=== PATIENT | male | born 1970 | race Caucasian/White ===

== ENCOUNTER 2017-12-27 09:15 | Inpatient (IN) | payer MEDICARE, MEDICAID ==
[2017-12-27 10:26] LABS: VALPROIC ACID (DEPAKOTE) 16.8 UG/ML (50.0-100.0)
[2017-12-27] MEDS: LORazepam 2 MG TAB PO (12:08)
[2017-12-27] MEDS ORDERED: traZODone 50 MG TAB PO (14:45)
[2017-12-27] MEDS ORDERED: MAALOX 30 ML SUSP *UDC PO (14:45)
[2017-12-27] MEDS: HumaLOG INSULIN (NovoLOG) PER UNIT SC ×2 (17:30→21:00)
[2017-12-27] MEDS ORDERED: ENTER DRUG NAME HERE (PATIENT'S OWN MED) SC (17:45)
[2017-12-27] MEDS ORDERED: DEXTROSE 50% 50 ML SYRINGE IV (18:15)
[2017-12-27] MEDS ORDERED: GLUCOSE 4 GM CHEW TABLET PO (18:15)
[2017-12-27] MEDS ORDERED: GLUCAGON FOR INJ 1 MG VIAL (J1610) SC (18:15)
[2017-12-27] MEDS: metFORMIN (GLUCOPHAGE) 1000 MG TABLET PO (18:24)
[2017-12-27] MEDS: LISINOPRIL 10 MG TAB PO (18:41)
[2017-12-27 20:44] LABS: BEDSIDE GLUCOSE 164 MG/DL (70-105)
[2017-12-27] MEDS: OLANZapine ORAL DISINTEGRATING TAB 5MG PO (20:48)
[2017-12-27] MEDS: DIVALPROEX 500MG *ER* TAB PO (20:48)
[2017-12-27] MEDS: BENZTROPINE 2 MG TAB PO (20:49)
[2017-12-27] MEDS: GABAPENTIN 300 MG CAP PO (20:49)
[2017-12-27] MEDS: ATORVASTATIN 20 MG TAB PO (20:49)
[2017-12-27] MEDS: PALIPERIDONE 3 MG ER TAB (INVEGA) PO (20:49)
[2017-12-27] MEDS: CYCLOBENZAPRINE 10 MG TAB PO (21:54)
[2017-12-28 04:40] LABS: BEDSIDE GLUCOSE 158 MG/DL (70-105)
[2017-12-28] MEDS: LEVOTHYROXINE 100MCG TABLET (0.1MG) PO (05:52)
[2017-12-28] MEDS: CYCLOBENZAPRINE 10 MG TAB PO ×3 (05:52→22:15)
[2017-12-28] MEDS: HumaLOG INSULIN (NovoLOG) PER UNIT SC ×4 (06:13→20:50)
[2017-12-28] MEDS: BENZTROPINE 2 MG TAB PO ×2 (08:59→20:43)
[2017-12-28] MEDS: metFORMIN (GLUCOPHAGE) 1000 MG TABLET PO ×2 (08:59→17:05)
[2017-12-28] MEDS: PILL CRUSHER/CUTTER 1 EACH XX ×2 (09:00→20:54)
[2017-12-28] MEDS: GABAPENTIN 300 MG CAP PO ×2 (09:00→20:44)
[2017-12-28] MEDS ORDERED: ENTER DRUG NAME HERE (PATIENT'S OWN MED) PO (09:00)
[2017-12-28] MEDS: LISINOPRIL 10 MG TAB PO (09:07)
[2017-12-28 11:58] LABS: BEDSIDE GLUCOSE 154 MG/DL (70-105)
[2017-12-28] MEDS: CETIRIZINE (ZyrTEC) 10 MG TAB PO (13:20)
[2017-12-28] MEDS: FLUTICASONE PROP 0.05% NASAL SPRAY 16 GM (FLONASE) NARES (13:30)
[2017-12-28 17:03] LABS: BEDSIDE GLUCOSE 168 MG/DL (70-105)
[2017-12-28] MEDS: PALIPERIDONE 3 MG ER TAB (INVEGA) PO (20:44)
[2017-12-28] MEDS: ATORVASTATIN 20 MG TAB PO (20:44)
[2017-12-28] MEDS: OLANZapine ORAL DISINTEGRATING TAB 5MG PO (20:44)
[2017-12-28] MEDS: DIVALPROEX 500MG *ER* TAB PO (20:45)
[2017-12-28 20:54] LABS: BEDSIDE GLUCOSE 176 MG/DL (70-105)
[2017-12-29 04:06] LABS: BEDSIDE GLUCOSE 194 MG/DL (70-105)
[2017-12-29] MEDS: CYCLOBENZAPRINE 10 MG TAB PO ×3 (05:58→20:36)
[2017-12-29] MEDS: LEVOTHYROXINE 100MCG TABLET (0.1MG) PO (05:58)
[2017-12-29 06:11] LABS: BEDSIDE GLUCOSE 155 MG/DL (70-105)
[2017-12-29] MEDS: HumaLOG INSULIN (NovoLOG) PER UNIT SC ×4 (06:58→20:39)
[2017-12-29] MEDS: metFORMIN (GLUCOPHAGE) 1000 MG TABLET PO ×2 (08:32→17:20)
[2017-12-29] MEDS: GABAPENTIN 300 MG CAP PO ×2 (08:32→20:37)
[2017-12-29] MEDS: FLUTICASONE PROP 0.05% NASAL SPRAY 16 GM (FLONASE) NARES (08:32)
[2017-12-29] MEDS: CETIRIZINE (ZyrTEC) 10 MG TAB PO (08:32)
[2017-12-29] MEDS: BENZTROPINE 2 MG TAB PO ×2 (08:33→20:37)
[2017-12-29] MEDS: LISINOPRIL 10 MG TAB PO (08:35)
[2017-12-29] MEDS: guaiFENesin SYRUP 200 MG/10 ML UDC PO ×2 (10:46→16:27)
[2017-12-29] MEDS: CEPACOL LOZENGE PO ×4 (10:46→23:57)
[2017-12-29 12:09] LABS: BEDSIDE GLUCOSE 196 MG/DL (70-105)
[2017-12-29 12:27] LABS: BASO % 0.7 % (0.0-1.0); EOS # 0.5 10^3/uL (0.0-0.50); HEMOGLOBIN 12.9 g/dl (13.5-17.5); IMMATURE GRANULOCYTE % 2.3 % (0-3.0); LYMPH # 1.7 10^3/uL (1.5-4.5); LYMPH % 28.4 % (24.0-44.0); MEAN CORPUSCULAR HGB CONC 33.9 g/dl (32.0-36.5); MEAN CORPUSCULAR VOLUME 85.4 fl (80.0-96.0); MONO # 0.5 10^3/uL (0.0-0.8); MONO % 7.8 % (0.0-5.0); NEUTROPHILS # 3.2 10^3/uL (1.8-7.7); NEUTROPHILS % 52.8 % (36.0-66.0); PLATELET COUNT, AUTOMATED 208 10^3/uL (150-450); RED BLOOD COUNT 4.45 10^6/uL (4.30-6.10); RED CELL DISTRIBUTION WIDTH 12.9 % (11.5-14.5); WHITE BLOOD COUNT 6.1 10^3/uL (4.0-10.0)
[2017-12-29 12:46] LABS: AMMONIA 72 uMOL/L (<32)
[2017-12-29 14:29] LABS: ALBUMIN 3.2 GM/DL (3.2-5.2); ALBUMIN/GLOBULIN RATIO 0.91 (1.00-1.93); ALKALINE PHOSPHATASE 82 U/L (45-117); ALT/SGPT 50 U/L (12-78); ANION GAP 7 MEQ/L (8-16); AST/SGOT 44 U/L (7-37); BILIRUBIN,TOTAL 0.2 MG/DL (0.2-1.0); BLOOD UREA NITROGEN 8 MG/DL (7-18); CALCIUM LEVEL 8.3 MG/DL (8.5-10.1); CARBON DIOXIDE LEVEL 28 MEQ/L (21-32); CHLORIDE LEVEL 107 MEQ/L (98-107); CREATININE FOR GFR 0.82 MG/DL (0.70-1.30); GLOMERULAR FILTRATION RATE > 60.0 (>60); GLUCOSE, FASTING 195 MG/DL (70-100); SODIUM LEVEL 142 MEQ/L (136-145); TOTAL PROTEIN 6.7 GM/DL (6.4-8.2)
[2017-12-29 17:25] LABS: BEDSIDE GLUCOSE 159 MG/DL (70-105)
[2017-12-29] MEDS: ATORVASTATIN 20 MG TAB PO (20:36)
[2017-12-29] MEDS: PALIPERIDONE 3 MG ER TAB (INVEGA) PO (20:37)
[2017-12-29] MEDS: DIVALPROEX 500MG *ER* TAB PO (20:37)
[2017-12-29] MEDS: OLANZapine ORAL DISINTEGRATING TAB 5MG PO (20:37)
[2017-12-29 22:29] LABS: BEDSIDE GLUCOSE 163 MG/DL (70-105)
[2017-12-29] MEDS: traMADol 50 MG TAB PO (23:55)
[2017-12-30] MEDS: CEPACOL LOZENGE PO ×5 (02:45→23:35)
[2017-12-30] MEDS: CYCLOBENZAPRINE 10 MG TAB PO ×3 (06:02→20:35)
[2017-12-30] MEDS: LEVOTHYROXINE 100MCG TABLET (0.1MG) PO (06:02)
[2017-12-30] MEDS: HumaLOG INSULIN (NovoLOG) PER UNIT SC ×4 (06:31→20:37)
[2017-12-30 06:48] LABS: BEDSIDE GLUCOSE 209 MG/DL (70-105)
[2017-12-30] MEDS: FLUTICASONE PROP 0.05% NASAL SPRAY 16 GM (FLONASE) NARES (08:34)
[2017-12-30] MEDS: LISINOPRIL 10 MG TAB PO (08:35)
[2017-12-30] MEDS: GABAPENTIN 300 MG CAP PO ×2 (08:35→20:35)
[2017-12-30] MEDS: metFORMIN (GLUCOPHAGE) 1000 MG TABLET PO ×2 (08:35→17:51)
[2017-12-30] MEDS: CETIRIZINE (ZyrTEC) 10 MG TAB PO (08:35)
[2017-12-30] MEDS: BENZTROPINE 2 MG TAB PO ×2 (08:35→20:35)
[2017-12-30 11:22] LABS: AMMONIA 92 uMOL/L (<32)
[2017-12-30 12:09] LABS: BEDSIDE GLUCOSE 187 MG/DL (70-105)
[2017-12-30] MEDS: LACTULOSE 20 GM/30 ML SYRUP UD PO ×2 (13:37→20:36)
[2017-12-30] MEDS: OXcarbazepine 300 MG TAB PO ×2 (13:37→20:35)
[2017-12-30] MEDS: guaiFENesin SYRUP 200 MG/10 ML UDC PO ×2 (14:49→20:36)
[2017-12-30] MEDS: traMADol 50 MG TAB PO ×2 (16:49→17:59)
[2017-12-30 17:12] LABS: BEDSIDE GLUCOSE 207 MG/DL (70-105)
[2017-12-30 20:33] LABS: BEDSIDE GLUCOSE 194 MG/DL (70-105)
[2017-12-30] MEDS: ATORVASTATIN 20 MG TAB PO (20:35)
[2017-12-30] MEDS: PALIPERIDONE 3 MG ER TAB (INVEGA) PO (20:35)
[2017-12-30] MEDS: OLANZapine ORAL DISINTEGRATING TAB 5MG PO (20:35)
[2017-12-31] MEDS: CYCLOBENZAPRINE 10 MG TAB PO ×3 (05:59→23:35)
[2017-12-31] MEDS: LEVOTHYROXINE 100MCG TABLET (0.1MG) PO (05:59)
[2017-12-31 06:04] LABS: BEDSIDE GLUCOSE 181 MG/DL (70-105)
[2017-12-31] MEDS: HumaLOG INSULIN (NovoLOG) PER UNIT SC ×4 (06:37→20:52)
[2017-12-31] MEDS: CEPACOL LOZENGE PO ×2 (07:22→15:11)
[2017-12-31] MEDS: guaiFENesin SYRUP 200 MG/10 ML UDC PO (07:23)
[2017-12-31] MEDS: FLUTICASONE PROP 0.05% NASAL SPRAY 16 GM (FLONASE) NARES (09:07)
[2017-12-31] MEDS: LACTULOSE 20 GM/30 ML SYRUP UD PO ×2 (09:07→20:44)
[2017-12-31] MEDS: LISINOPRIL 10 MG TAB PO (09:08)
[2017-12-31] MEDS: GABAPENTIN 300 MG CAP PO ×2 (09:08→20:44)
[2017-12-31] MEDS: metFORMIN (GLUCOPHAGE) 1000 MG TABLET PO ×2 (09:08→17:41)
[2017-12-31] MEDS: CETIRIZINE (ZyrTEC) 10 MG TAB PO (09:08)
[2017-12-31] MEDS: BENZTROPINE 2 MG TAB PO ×2 (09:08→20:45)
[2017-12-31] MEDS: OXcarbazepine 300 MG TAB PO ×2 (09:08→20:44)
[2017-12-31] MEDS: traMADol 50 MG TAB PO ×2 (10:04→20:47)
[2017-12-31 12:05] LABS: BEDSIDE GLUCOSE 191 MG/DL (70-105)
[2017-12-31] MEDS: IBUPROFEN 400 MG TAB PO (12:18)
[2017-12-31 17:06] LABS: BEDSIDE GLUCOSE 218 MG/DL (70-105)
[2017-12-31 20:41] LABS: BEDSIDE GLUCOSE 176 MG/DL (70-105)
[2017-12-31] MEDS: ATORVASTATIN 20 MG TAB PO (20:44)
[2017-12-31] MEDS: OLANZapine ORAL DISINTEGRATING TAB 5MG PO (20:44)
[2017-12-31] MEDS: PALIPERIDONE 3 MG ER TAB (INVEGA) PO (20:45)
[2017-12-31] MEDS: PILL CRUSHER/CUTTER 1 EACH XX (20:48)
[2018-01-01] MEDS: IBUPROFEN 400 MG TAB PO ×2 (02:08→22:30)
[2018-01-01] MEDS: LEVOTHYROXINE 100MCG TABLET (0.1MG) PO (05:59)
[2018-01-01] MEDS: CYCLOBENZAPRINE 10 MG TAB PO ×3 (05:59→22:22)
[2018-01-01] MEDS: HumaLOG INSULIN (NovoLOG) PER UNIT SC ×4 (07:01→21:00)
[2018-01-01 07:51] LABS: AMMONIA 33 uMOL/L (<32)
[2018-01-01] MEDS: BENZTROPINE 2 MG TAB PO ×2 (08:14→22:22)
[2018-01-01] MEDS: LACTULOSE 20 GM/30 ML SYRUP UD PO ×2 (08:14→22:21)
[2018-01-01] MEDS: FLUTICASONE PROP 0.05% NASAL SPRAY 16 GM (FLONASE) NARES (08:14)
[2018-01-01] MEDS: OXcarbazepine 300 MG TAB PO ×2 (08:14→22:22)
[2018-01-01] MEDS: CETIRIZINE (ZyrTEC) 10 MG TAB PO (08:14)
[2018-01-01] MEDS: LISINOPRIL 10 MG TAB PO (08:14)
[2018-01-01] MEDS: metFORMIN (GLUCOPHAGE) 1000 MG TABLET PO ×2 (08:14→17:15)
[2018-01-01] MEDS: GABAPENTIN 300 MG CAP PO ×2 (08:14→22:21)
[2018-01-01] MEDS: MOM 30ML SUSPENSION UDC PO (10:16)
[2018-01-01 11:53] LABS: BEDSIDE GLUCOSE 215 MG/DL (70-105)
[2018-01-01 17:06] LABS: BEDSIDE GLUCOSE 233 MG/DL (70-105)
[2018-01-01] MEDS: CEPACOL LOZENGE PO ×2 (18:00→20:11)
[2018-01-01 19:59] LABS: BEDSIDE GLUCOSE 180 MG/DL (70-105)
[2018-01-01] MEDS: PALIPERIDONE 3 MG ER TAB (INVEGA) PO (22:21)
[2018-01-01] MEDS: ATORVASTATIN 20 MG TAB PO (22:21)
[2018-01-01] MEDS: OLANZapine ORAL DISINTEGRATING TAB 5MG PO (22:23)
[2018-01-02] MEDS: guaiFENesin SYRUP 200 MG/10 ML UDC PO ×4 (00:22→23:19)
[2018-01-02] MEDS: CEPACOL LOZENGE PO ×2 (04:03→21:26)
[2018-01-02 05:31] LABS: BEDSIDE GLUCOSE 149 MG/DL (70-105)
[2018-01-02] MEDS: CYCLOBENZAPRINE 10 MG TAB PO ×3 (05:50→21:27)
[2018-01-02] MEDS: LEVOTHYROXINE 100MCG TABLET (0.1MG) PO (05:50)
[2018-01-02] MEDS: HumaLOG INSULIN (NovoLOG) PER UNIT SC ×4 (06:43→21:00)
[2018-01-02] MEDS: GABAPENTIN 300 MG CAP PO ×2 (08:02→21:27)
[2018-01-02] MEDS: FLUTICASONE PROP 0.05% NASAL SPRAY 16 GM (FLONASE) NARES (08:02)
[2018-01-02] MEDS: LACTULOSE 20 GM/30 ML SYRUP UD PO ×2 (08:02→21:25)
[2018-01-02] MEDS: LISINOPRIL 10 MG TAB PO (08:02)
[2018-01-02] MEDS: CETIRIZINE (ZyrTEC) 10 MG TAB PO (08:02)
[2018-01-02] MEDS: BENZTROPINE 2 MG TAB PO ×2 (08:02→21:25)
[2018-01-02] MEDS: OXcarbazepine 300 MG TAB PO ×2 (08:02→21:27)
[2018-01-02] MEDS: metFORMIN (GLUCOPHAGE) 1000 MG TABLET PO ×2 (08:02→17:12)
[2018-01-02 08:05] LABS: AMMONIA 30 uMOL/L (<32)
[2018-01-02] MEDS: IBUPROFEN 400 MG TAB PO ×2 (09:27→21:29)
[2018-01-02 12:09] LABS: BEDSIDE GLUCOSE 167 MG/DL (70-105)
[2018-01-02 16:59] LABS: BEDSIDE GLUCOSE 174 MG/DL (70-105)
[2018-01-02 21:25] LABS: BEDSIDE GLUCOSE 137 MG/DL (70-105)
[2018-01-02] MEDS: PALIPERIDONE 3 MG ER TAB (INVEGA) PO (21:26)
[2018-01-02] MEDS: ATORVASTATIN 20 MG TAB PO (21:27)
[2018-01-02] MEDS: OLANZapine ORAL DISINTEGRATING TAB 5MG PO (21:27)
[2018-01-03] MEDS: CEPACOL LOZENGE PO ×2 (02:33→14:41)
[2018-01-03] MEDS: guaiFENesin SYRUP 200 MG/10 ML UDC PO ×2 (03:46→15:05)
[2018-01-03] MEDS: IBUPROFEN 400 MG TAB PO ×2 (03:47→14:41)
[2018-01-03] MEDS: LEVOTHYROXINE 100MCG TABLET (0.1MG) PO (06:00)
[2018-01-03] MEDS: CYCLOBENZAPRINE 10 MG TAB PO ×2 (06:01→14:40)
[2018-01-03 06:22] LABS: BEDSIDE GLUCOSE 150 MG/DL (70-105)
[2018-01-03] MEDS: HumaLOG INSULIN (NovoLOG) PER UNIT SC ×2 (06:33→12:00)
[2018-01-03] MEDS: metFORMIN (GLUCOPHAGE) 1000 MG TABLET PO (08:29)
[2018-01-03] MEDS: CETIRIZINE (ZyrTEC) 10 MG TAB PO (08:29)
[2018-01-03] MEDS: LACTULOSE 20 GM/30 ML SYRUP UD PO (08:29)
[2018-01-03] MEDS: FLUTICASONE PROP 0.05% NASAL SPRAY 16 GM (FLONASE) NARES (08:29)
[2018-01-03] MEDS: OXcarbazepine 300 MG TAB PO (08:30)
[2018-01-03] MEDS: GABAPENTIN 300 MG CAP PO (08:30)
[2018-01-03] MEDS: LISINOPRIL 10 MG TAB PO (08:33)
[2018-01-03] MEDS: BENZTROPINE 2 MG TAB PO (08:33)
[2018-01-03 09:18] LABS: AMMONIA 34 uMOL/L (<32)
[2018-01-03 14:43] LABS: BEDSIDE GLUCOSE 189 MG/DL (70-105)
== END 2018-01-03 15:54 | disposition home or self-care (01) | DRG 885 ==
LOC: M ED 09:15 → M ED INP 14:35 → M PSY 15:25
PROVIDERS: Psychiatry & Neurology Psychiatry
DX: F31.0 Bipolar disorder, current episode hypomanic (principal); Z79.899 Other long term (current) drug therapy; Z88.0 Allergy status to penicillin; I10 Essential (primary) hypertension; E03.9 Hypothyroidism, unspecified; E11.51 Type 2 diabetes mellitus with diabetic peripheral angiopathy without gangrene; E66.9 Obesity, unspecified; E78.5 Hyperlipidemia, unspecified; G47.00 Insomnia, unspecified; F41.9 Anxiety disorder, unspecified; Z68.34 Body mass index [BMI] 34.0-34.9, adult

== ENCOUNTER 2018-01-31 13:26 | Inpatient (IN) | payer MEDICARE, MEDICAID ==
[2018-01-31 14:16] LABS: HEMATOCRIT 48.8 % (42.0-52.0); HEMOGLOBIN 16.6 g/dl (13.5-17.5); MEAN CORPUSCULAR HEMOGLOBIN 28.7 pg (27.0-33.0); MEAN CORPUSCULAR VOLUME 84.3 fl (80.0-96.0); PLATELET COUNT, AUTOMATED 282 10^3/uL (150-450); RED BLOOD COUNT 5.79 10^6/uL (4.30-6.10); RED CELL DISTRIBUTION WIDTH 13.3 % (11.5-14.5); WHITE BLOOD COUNT 8.4 10^3/uL (4.0-10.0)
[2018-01-31 14:38] LABS: AMPHETAMINES LEVEL URINE NEGATIVE (NEGATIVE); BARBITURATES URINE NEGATIVE (NEGATIVE); BENZODIAZEPINES URINE NEGATIVE (NEGATIVE); CANNABINOIDS URINE NEGATIVE (NEGATIVE); COCAINE METABOLITE URINE NEGATIVE (NEGATIVE); METHADONE URINE NEGATIVE (NEGATIVE); OPIATES URINE NEGATIVE (NEGATIVE); PHENCYCLIDINE URINE NEGATIVE (NEGATIVE)
[2018-01-31 15:00] LABS: ALBUMIN 3.7 GM/DL (3.2-5.2); ALKALINE PHOSPHATASE 131 U/L (45-117); ALT/SGPT 82 U/L (12-78); ANION GAP 10 MEQ/L (8-16); AST/SGOT 80 U/L (7-37); BILIRUBIN,DIRECT 0.2 MG/DL (0.0-0.2); BILIRUBIN,TOTAL 0.5 MG/DL (0.2-1.0); BLOOD UREA NITROGEN 10 MG/DL (7-18); CALCIUM LEVEL 8.2 MG/DL (8.5-10.1); CARBON DIOXIDE LEVEL 26 MEQ/L (21-32); CHLORIDE LEVEL 105 MEQ/L (98-107); CREATININE FOR GFR 0.72 MG/DL (0.70-1.30); GLOMERULAR FILTRATION RATE > 60.0 (>60); GLUCOSE, FASTING 143 MG/DL (70-100); POTASSIUM SERUM 4.1 MEQ/L (3.5-5.1); SALICYLATE LEVEL < 1.7 MG/DL (5.0-30.0); SODIUM LEVEL 141 MEQ/L (136-145); TOTAL PROTEIN 7.8 GM/DL (6.4-8.2)
[2018-01-31 15:01] LABS: ACETAMINOPHEN LEVEL < 2.0 UG/ML (10.0-30.0); ETHYL ALCOHOL (ETHANOL) < 0.003 % (0.000-0.010)
[2018-01-31] MEDS ORDERED: MAALOX 30 ML SUSP *UDC PO (16:30)
[2018-01-31] MEDS: metFORMIN (GLUCOPHAGE) 1000 MG TABLET PO (18:00)
[2018-01-31] MEDS ORDERED: metFORMIN (GLUCOPHAGE) 1000 MG TABLET PO (21:00)
[2018-01-31] MEDS ORDERED: OXcarbazepine 300 MG TAB PO (21:00)
[2018-01-31] MEDS ORDERED: GABAPENTIN 300 MG CAP PO (21:00)
[2018-01-31] MEDS ORDERED: ATORVASTATIN 20 MG TAB PO (21:00)
[2018-01-31] MEDS ORDERED: BENZTROPINE 2 MG TAB PO (21:00)
[2018-01-31] MEDS ORDERED: OLANZapine ORAL DISINTEGRATING TAB 5MG PO (21:00)
[2018-01-31] MEDS: GABAPENTIN 300 MG CAP PO (21:02)
[2018-01-31] MEDS: ATORVASTATIN 20 MG TAB PO (21:03)
[2018-01-31] MEDS: BENZTROPINE 1 MG TAB PO (21:03)
[2018-01-31] MEDS: OXcarbazepine 300 MG TAB PO (21:03)
[2018-01-31] MEDS: OLANZapine ORAL DISINTEGRATING TAB 5MG PO (21:04)
[2018-01-31] MEDS: traZODone 50 MG TAB PO (21:55)
[2018-02-01] MEDS ORDERED: LEVOTHYROXINE 100MCG TABLET (0.1MG) PO (06:00)
[2018-02-01] MEDS: LEVOTHYROXINE 100MCG TABLET (0.1MG) PO (06:04)
[2018-02-01 06:38] LABS: BEDSIDE GLUCOSE 135 MG/DL (70-105)
[2018-02-01] MEDS: BENZTROPINE 1 MG TAB PO ×2 (08:50→20:59)
[2018-02-01] MEDS: metFORMIN (GLUCOPHAGE) 1000 MG TABLET PO ×2 (08:50→17:10)
[2018-02-01] MEDS: OXcarbazepine 300 MG TAB PO ×2 (08:50→20:59)
[2018-02-01] MEDS: GABAPENTIN 300 MG CAP PO ×2 (08:50→20:59)
[2018-02-01] MEDS ORDERED: GLUCAGON FOR INJ 1 MG VIAL (J1610) SC (09:00)
[2018-02-01] MEDS ORDERED: GLUCOSE 4 GM CHEW TABLET PO (09:00)
[2018-02-01] MEDS ORDERED: DEXTROSE 50% 50 ML SYRINGE IV (09:00)
[2018-02-01 11:26] LABS: AMMONIA 37 uMOL/L (<32)
[2018-02-01 11:29] LABS: ALBUMIN 3.3 GM/DL (3.2-5.2); ALBUMIN/GLOBULIN RATIO 0.89 (1.00-1.93); ALKALINE PHOSPHATASE 118 U/L (45-117); ALT/SGPT 84 U/L (12-78); ANION GAP 6 MEQ/L (8-16); AST/SGOT 83 U/L (7-37); BILIRUBIN,TOTAL 0.5 MG/DL (0.2-1.0); BLOOD UREA NITROGEN 13 MG/DL (7-18); CARBON DIOXIDE LEVEL 31 MEQ/L (21-32); CHLORIDE LEVEL 103 MEQ/L (98-107); CREATININE FOR GFR 0.85 MG/DL (0.70-1.30); GLOMERULAR FILTRATION RATE > 60.0 (>60); GLUCOSE, FASTING 176 MG/DL (70-100); SODIUM LEVEL 140 MEQ/L (136-145)
[2018-02-01] MEDS: HumaLOG INSULIN (NovoLOG) PER UNIT SC ×3 (11:51→21:00)
[2018-02-01 11:52] LABS: BEDSIDE GLUCOSE 150 MG/DL (70-105)
[2018-02-01] MEDS: PARoxetine 10MG TABLET PO (14:08)
[2018-02-01 17:17] LABS: BEDSIDE GLUCOSE 162 MG/DL (70-105)
[2018-02-01] MEDS: LACTULOSE 20 GM/30 ML SYRUP UD PO (20:58)
[2018-02-01] MEDS: traZODone 50 MG TAB PO (20:59)
[2018-02-01] MEDS: ATORVASTATIN 20 MG TAB PO (20:59)
[2018-02-01] MEDS: OLANZapine ORAL DISINTEGRATING TAB 5MG PO (20:59)
[2018-02-01 21:00] LABS: BEDSIDE GLUCOSE 120 MG/DL (70-105)
[2018-02-02] MEDS: LEVOTHYROXINE 100MCG TABLET (0.1MG) PO (06:15)
[2018-02-02] MEDS: HumaLOG INSULIN (NovoLOG) PER UNIT SC ×4 (06:40→20:32)
[2018-02-02 06:43] LABS: BEDSIDE GLUCOSE 134 MG/DL (70-105)
[2018-02-02 07:17] LABS: ESTIMATED AVERAGE GLUCOSE 160 MG/DL (60-110); HEMOGLOBIN A1c 7.2 %
[2018-02-02 07:28] LABS: ALBUMIN 3.2 GM/DL (3.2-5.2); ALBUMIN/GLOBULIN RATIO 0.82 (1.00-1.93); ALKALINE PHOSPHATASE 108 U/L (45-117); ALT/SGPT 76 U/L (12-78); ANION GAP 9 MEQ/L (8-16); AST/SGOT 61 U/L (7-37); BILIRUBIN,TOTAL 0.5 MG/DL (0.2-1.0); BLOOD UREA NITROGEN 15 MG/DL (7-18); CARBON DIOXIDE LEVEL 26 MEQ/L (21-32); CHLORIDE LEVEL 106 MEQ/L (98-107); CREATININE FOR GFR 0.75 MG/DL (0.70-1.30); GLOMERULAR FILTRATION RATE > 60.0 (>60); GLUCOSE, FASTING 126 MG/DL (70-100); SODIUM LEVEL 141 MEQ/L (136-145); TOTAL PROTEIN 7.1 GM/DL (6.4-8.2)
[2018-02-02] MEDS: metFORMIN (GLUCOPHAGE) 1000 MG TABLET PO ×2 (08:55→17:01)
[2018-02-02] MEDS: GABAPENTIN 300 MG CAP PO ×2 (08:55→21:44)
[2018-02-02] MEDS: PARoxetine 10MG TABLET PO (08:55)
[2018-02-02] MEDS: BENZTROPINE 1 MG TAB PO ×2 (08:55→21:43)
[2018-02-02] MEDS: OXcarbazepine 300 MG TAB PO ×2 (08:55→21:43)
[2018-02-02 10:03] LABS: HEPATITIS B SURFACE ANTIGEN NEGATIVE (NEGATIVE)
[2018-02-02 10:29] LABS: HEPATITIS C VIRUS ABY INDEX < 0.0 INDEX (<0.8)
[2018-02-02 10:30] LABS: HEPATITIS B CORE ANTIBODY IGM NEGATIVE (NEGATIVE)
[2018-02-02 10:32] LABS: HEPATITIS A ANTIBODY IGM NEGATIVE (NEGATIVE)
[2018-02-02 11:24] LABS: BEDSIDE GLUCOSE 174 MG/DL (70-105)
[2018-02-02 16:57] LABS: BEDSIDE GLUCOSE 127 MG/DL (70-105)
[2018-02-02 20:33] LABS: BEDSIDE GLUCOSE 138 MG/DL (70-105)
[2018-02-02] MEDS: OLANZapine ORAL DISINTEGRATING TAB 5MG PO (21:43)
[2018-02-02] MEDS: ATORVASTATIN 20 MG TAB PO (21:43)
[2018-02-02] MEDS: LACTULOSE 20 GM/30 ML SYRUP UD PO (21:43)
[2018-02-02] MEDS: traZODone 50 MG TAB PO (21:43)
[2018-02-03] MEDS: LEVOTHYROXINE 100MCG TABLET (0.1MG) PO (06:18)
[2018-02-03 06:35] LABS: BEDSIDE GLUCOSE 115 MG/DL (70-105)
[2018-02-03] MEDS: HumaLOG INSULIN (NovoLOG) PER UNIT SC ×4 (07:02→21:00)
[2018-02-03] MEDS: OXcarbazepine 300 MG TAB PO ×2 (08:49→21:22)
[2018-02-03] MEDS: GABAPENTIN 300 MG CAP PO ×2 (08:49→21:23)
[2018-02-03] MEDS: PARoxetine 10MG TABLET PO (08:49)
[2018-02-03] MEDS: metFORMIN (GLUCOPHAGE) 1000 MG TABLET PO ×2 (08:49→17:13)
[2018-02-03] MEDS: BENZTROPINE 1 MG TAB PO ×2 (08:49→21:23)
[2018-02-03 11:42] LABS: BEDSIDE GLUCOSE 210 MG/DL (70-105)
[2018-02-03 17:09] LABS: BEDSIDE GLUCOSE 139 MG/DL (70-105)
[2018-02-03 21:22] LABS: BEDSIDE GLUCOSE 118 MG/DL (70-105)
[2018-02-03] MEDS: ATORVASTATIN 20 MG TAB PO (21:22)
[2018-02-03] MEDS: OLANZapine ORAL DISINTEGRATING TAB 5MG PO (21:23)
[2018-02-03] MEDS: LACTULOSE 20 GM/30 ML SYRUP UD PO (21:23)
[2018-02-03] MEDS: traZODone 50 MG TAB PO (21:49)
[2018-02-04] MEDS: LEVOTHYROXINE 100MCG TABLET (0.1MG) PO (05:58)
[2018-02-04 06:17] LABS: BEDSIDE GLUCOSE 122 MG/DL (70-105)
[2018-02-04] MEDS: HumaLOG INSULIN (NovoLOG) PER UNIT SC ×4 (06:43→21:00)
[2018-02-04] MEDS: GABAPENTIN 300 MG CAP PO ×2 (08:05→21:05)
[2018-02-04] MEDS: BENZTROPINE 1 MG TAB PO ×2 (08:06→21:05)
[2018-02-04] MEDS: OXcarbazepine 300 MG TAB PO ×2 (08:06→21:05)
[2018-02-04] MEDS: PARoxetine 10MG TABLET PO ×2 (08:06→10:13)
[2018-02-04] MEDS: metFORMIN (GLUCOPHAGE) 1000 MG TABLET PO ×2 (08:06→17:03)
[2018-02-04] MEDS: PARoxetine 20 MG TAB PO (09:00)
[2018-02-04 11:54] LABS: BEDSIDE GLUCOSE 171 MG/DL (70-105)
[2018-02-04 14:21] LABS: OXCARBAZEPINE 13 ug/mL (10-35)
[2018-02-04 17:13] LABS: BEDSIDE GLUCOSE 159 MG/DL (70-105)
[2018-02-04 21:04] LABS: BEDSIDE GLUCOSE 107 MG/DL (70-105)
[2018-02-04] MEDS: LACTULOSE 20 GM/30 ML SYRUP UD PO (21:04)
[2018-02-04] MEDS: ATORVASTATIN 20 MG TAB PO (21:05)
[2018-02-04] MEDS: OLANZapine ORAL DISINTEGRATING TAB 5MG PO (21:05)
[2018-02-04] MEDS: traZODone 50 MG TAB PO (21:05)
[2018-02-05] MEDS: LEVOTHYROXINE 100MCG TABLET (0.1MG) PO (06:14)
[2018-02-05 06:41] LABS: BEDSIDE GLUCOSE 132 MG/DL (70-105)
[2018-02-05] MEDS: HumaLOG INSULIN (NovoLOG) PER UNIT SC ×4 (06:48→21:00)
[2018-02-05] MEDS: OXcarbazepine 300 MG TAB PO ×2 (08:42→21:35)
[2018-02-05] MEDS: GABAPENTIN 300 MG CAP PO ×2 (08:42→21:34)
[2018-02-05] MEDS: metFORMIN (GLUCOPHAGE) 1000 MG TABLET PO ×2 (08:42→17:00)
[2018-02-05] MEDS: PARoxetine 20 MG TAB PO (08:42)
[2018-02-05] MEDS: BENZTROPINE 1 MG TAB PO ×2 (08:42→21:35)
[2018-02-05 11:51] LABS: BEDSIDE GLUCOSE 158 MG/DL (70-105)
[2018-02-05 16:59] LABS: BEDSIDE GLUCOSE 149 MG/DL (70-105)
[2018-02-05 21:33] LABS: BEDSIDE GLUCOSE 162 MG/DL (70-105)
[2018-02-05] MEDS: LACTULOSE 20 GM/30 ML SYRUP UD PO (21:33)
[2018-02-05] MEDS: traZODone 50 MG TAB PO (21:34)
[2018-02-05] MEDS: ATORVASTATIN 20 MG TAB PO (21:34)
[2018-02-05] MEDS: OLANZapine ORAL DISINTEGRATING TAB 5MG PO (21:35)
[2018-02-06] MEDS: LEVOTHYROXINE 100MCG TABLET (0.1MG) PO (06:27)
[2018-02-06] MEDS: HumaLOG INSULIN (NovoLOG) PER UNIT SC ×4 (06:32→21:00)
[2018-02-06 06:34] LABS: BEDSIDE GLUCOSE 124 MG/DL (70-105)
[2018-02-06] MEDS: metFORMIN (GLUCOPHAGE) 1000 MG TABLET PO ×2 (08:27→17:03)
[2018-02-06] MEDS: GABAPENTIN 300 MG CAP PO ×2 (08:27→21:17)
[2018-02-06] MEDS: PARoxetine 20 MG TAB PO (08:27)
[2018-02-06] MEDS: OXcarbazepine 300 MG TAB PO ×2 (08:27→21:17)
[2018-02-06] MEDS: BENZTROPINE 1 MG TAB PO ×2 (08:27→21:17)
[2018-02-06 12:01] LABS: BEDSIDE GLUCOSE 103 MG/DL (70-105)
[2018-02-06 17:03] LABS: BEDSIDE GLUCOSE 159 MG/DL (70-105)
[2018-02-06 21:15] LABS: BEDSIDE GLUCOSE 135 MG/DL (70-105)
[2018-02-06] MEDS: LACTULOSE 20 GM/30 ML SYRUP UD PO (21:17)
[2018-02-06] MEDS: OLANZapine ORAL DISINTEGRATING TAB 5MG PO (21:17)
[2018-02-06] MEDS: traZODone 50 MG TAB PO (21:17)
[2018-02-06] MEDS: ATORVASTATIN 20 MG TAB PO (21:17)
[2018-02-07] MEDS: LEVOTHYROXINE 100MCG TABLET (0.1MG) PO (06:10)
[2018-02-07 06:17] LABS: BEDSIDE GLUCOSE 113 MG/DL (70-105)
[2018-02-07] MEDS: HumaLOG INSULIN (NovoLOG) PER UNIT SC ×4 (06:39→21:00)
[2018-02-07] MEDS: BENZTROPINE 1 MG TAB PO ×2 (08:56→21:00)
[2018-02-07] MEDS: GABAPENTIN 300 MG CAP PO ×2 (08:56→21:00)
[2018-02-07] MEDS: PARoxetine 20 MG TAB PO (08:56)
[2018-02-07] MEDS: metFORMIN (GLUCOPHAGE) 1000 MG TABLET PO ×2 (08:57→17:05)
[2018-02-07] MEDS: OXcarbazepine 300 MG TAB PO ×2 (08:57→20:59)
[2018-02-07 12:10] LABS: BEDSIDE GLUCOSE 188 MG/DL (70-105)
[2018-02-07 17:13] LABS: BEDSIDE GLUCOSE 218 MG/DL (70-105)
[2018-02-07] MEDS: ATORVASTATIN 20 MG TAB PO (20:59)
[2018-02-07] MEDS: traZODone 50 MG TAB PO (20:59)
[2018-02-07] MEDS: OLANZapine ORAL DISINTEGRATING TAB 5MG PO (21:00)
[2018-02-07] MEDS: LACTULOSE 20 GM/30 ML SYRUP UD PO (21:00)
[2018-02-07 21:51] LABS: BEDSIDE GLUCOSE 138 MG/DL (70-105)
[2018-02-08] MEDS: LEVOTHYROXINE 100MCG TABLET (0.1MG) PO (06:18)
[2018-02-08 06:35] LABS: BEDSIDE GLUCOSE 114 MG/DL (70-105)
[2018-02-08] MEDS: HumaLOG INSULIN (NovoLOG) PER UNIT SC ×4 (07:05→21:00)
[2018-02-08] MEDS: metFORMIN (GLUCOPHAGE) 1000 MG TABLET PO ×3 (08:00→17:06)
[2018-02-08] MEDS: OXcarbazepine 300 MG TAB PO ×2 (08:51→21:14)
[2018-02-08] MEDS: PARoxetine 20 MG TAB PO (08:51)
[2018-02-08] MEDS: GABAPENTIN 300 MG CAP PO ×2 (08:51→21:13)
[2018-02-08] MEDS: BENZTROPINE 1 MG TAB PO ×2 (08:51→21:14)
[2018-02-08 12:24] LABS: BEDSIDE GLUCOSE 196 MG/DL (70-105)
[2018-02-08 17:08] LABS: BEDSIDE GLUCOSE 176 MG/DL (70-105)
[2018-02-08] MEDS: LACTULOSE 20 GM/30 ML SYRUP UD PO (21:13)
[2018-02-08] MEDS: traZODone 50 MG TAB PO (21:13)
[2018-02-08] MEDS: ATORVASTATIN 20 MG TAB PO (21:14)
[2018-02-08] MEDS: OLANZapine ORAL DISINTEGRATING TAB 5MG PO (21:14)
[2018-02-08 21:19] LABS: BEDSIDE GLUCOSE 95 MG/DL (70-105)
[2018-02-09] MEDS: LEVOTHYROXINE 100MCG TABLET (0.1MG) PO (06:06)
[2018-02-09 06:42] LABS: BEDSIDE GLUCOSE 110 MG/DL (70-105)
[2018-02-09] MEDS: HumaLOG INSULIN (NovoLOG) PER UNIT SC ×4 (07:04→20:55)
[2018-02-09] MEDS ORDERED: PARoxetine 10MG TABLET PO (08:45)
[2018-02-09] MEDS: BENZTROPINE 1 MG TAB PO ×2 (09:14→20:53)
[2018-02-09] MEDS: GABAPENTIN 300 MG CAP PO ×2 (09:15→20:53)
[2018-02-09] MEDS: OXcarbazepine 300 MG TAB PO ×2 (09:15→20:53)
[2018-02-09] MEDS: PARoxetine 10MG TABLET PO (09:15)
[2018-02-09] MEDS: metFORMIN (GLUCOPHAGE) 1000 MG TABLET PO ×2 (12:01→17:16)
[2018-02-09 12:09] LABS: BEDSIDE GLUCOSE 194 MG/DL (70-105)
[2018-02-09 17:01] LABS: BEDSIDE GLUCOSE 124 MG/DL (70-105)
[2018-02-09 20:51] LABS: BEDSIDE GLUCOSE 130 MG/DL (70-105)
[2018-02-09] MEDS: LACTULOSE 20 GM/30 ML SYRUP UD PO (20:52)
[2018-02-09] MEDS: ATORVASTATIN 20 MG TAB PO (20:53)
[2018-02-09] MEDS: OLANZapine ORAL DISINTEGRATING TAB 5MG PO (20:53)
[2018-02-10] MEDS: LEVOTHYROXINE 100MCG TABLET (0.1MG) PO (06:06)
[2018-02-10 06:31] LABS: BEDSIDE GLUCOSE 109 MG/DL (70-105)
[2018-02-10] MEDS: HumaLOG INSULIN (NovoLOG) PER UNIT SC ×4 (06:35→21:00)
[2018-02-10] MEDS: BENZTROPINE 1 MG TAB PO ×2 (08:59→22:01)
[2018-02-10] MEDS: PARoxetine 10MG TABLET PO (08:59)
[2018-02-10] MEDS: GABAPENTIN 300 MG CAP PO ×2 (08:59→22:01)
[2018-02-10] MEDS: OXcarbazepine 300 MG TAB PO ×2 (08:59→22:00)
[2018-02-10] MEDS: metFORMIN (GLUCOPHAGE) 1000 MG TABLET PO ×2 (11:43→17:08)
[2018-02-10 11:44] LABS: BEDSIDE GLUCOSE 157 MG/DL (70-105)
[2018-02-10 17:10] LABS: BEDSIDE GLUCOSE 175 MG/DL (70-105)
[2018-02-10] MEDS: LACTULOSE 20 GM/30 ML SYRUP UD PO (22:00)
[2018-02-10 22:01] LABS: BEDSIDE GLUCOSE 149 MG/DL (70-105)
[2018-02-10] MEDS: OLANZapine ORAL DISINTEGRATING TAB 5MG PO (22:01)
[2018-02-10] MEDS: ATORVASTATIN 20 MG TAB PO (22:01)
[2018-02-11] MEDS: LEVOTHYROXINE 100MCG TABLET (0.1MG) PO (06:15)
[2018-02-11] MEDS: HumaLOG INSULIN (NovoLOG) PER UNIT SC ×4 (06:27→21:00)
[2018-02-11 06:37] LABS: BEDSIDE GLUCOSE 104 MG/DL (70-105)
[2018-02-11] MEDS: GABAPENTIN 300 MG CAP PO ×2 (08:46→21:35)
[2018-02-11] MEDS: PARoxetine 10MG TABLET PO (08:46)
[2018-02-11] MEDS: OXcarbazepine 300 MG TAB PO ×2 (08:46→21:34)
[2018-02-11] MEDS: BENZTROPINE 1 MG TAB PO ×2 (08:46→21:35)
[2018-02-11] MEDS: metFORMIN (GLUCOPHAGE) 1000 MG TABLET PO ×2 (12:03→17:14)
[2018-02-11 12:13] LABS: BEDSIDE GLUCOSE 133 MG/DL (70-105)
[2018-02-11 17:00] LABS: BEDSIDE GLUCOSE 170 MG/DL (70-105)
[2018-02-11 21:32] LABS: BEDSIDE GLUCOSE 109 MG/DL (70-105)
[2018-02-11] MEDS: LACTULOSE 20 GM/30 ML SYRUP UD PO (21:33)
[2018-02-11] MEDS: OLANZapine ORAL DISINTEGRATING TAB 5MG PO (21:34)
[2018-02-11] MEDS: ATORVASTATIN 20 MG TAB PO (21:35)
[2018-02-12 00:07] LABS: OXCARBAZEPINE 12 ug/mL (10-35)
[2018-02-12] MEDS: LEVOTHYROXINE 100MCG TABLET (0.1MG) PO (06:09)
[2018-02-12 06:34] LABS: BEDSIDE GLUCOSE 107 MG/DL (70-105)
[2018-02-12] MEDS: HumaLOG INSULIN (NovoLOG) PER UNIT SC ×4 (06:56→20:34)
[2018-02-12] MEDS: PARoxetine 10MG TABLET PO (09:43)
[2018-02-12] MEDS: GABAPENTIN 300 MG CAP PO ×2 (09:43→20:34)
[2018-02-12] MEDS: OXcarbazepine 300 MG TAB PO ×2 (09:43→20:34)
[2018-02-12] MEDS: BENZTROPINE 1 MG TAB PO ×2 (09:43→20:34)
[2018-02-12] MEDS: metFORMIN (GLUCOPHAGE) 1000 MG TABLET PO ×2 (11:59→17:06)
[2018-02-12 12:07] LABS: BEDSIDE GLUCOSE 129 MG/DL (70-105)
[2018-02-12 17:26] LABS: BEDSIDE GLUCOSE 147 MG/DL (70-105)
[2018-02-12] MEDS: LACTULOSE 20 GM/30 ML SYRUP UD PO (20:33)
[2018-02-12] MEDS: OLANZapine ORAL DISINTEGRATING TAB 5MG PO (20:34)
[2018-02-12] MEDS: ATORVASTATIN 20 MG TAB PO (20:34)
[2018-02-12 20:35] LABS: BEDSIDE GLUCOSE 190 MG/DL (70-105)
[2018-02-13 05:22] LABS: BEDSIDE GLUCOSE 119 MG/DL (70-105)
[2018-02-13] MEDS: LEVOTHYROXINE 100MCG TABLET (0.1MG) PO (05:40)
[2018-02-13] MEDS: HumaLOG INSULIN (NovoLOG) PER UNIT SC ×4 (06:32→21:00)
[2018-02-13] MEDS: OXcarbazepine 300 MG TAB PO ×2 (08:40→21:10)
[2018-02-13] MEDS: PARoxetine 10MG TABLET PO (08:40)
[2018-02-13] MEDS: BENZTROPINE 1 MG TAB PO ×2 (08:40→21:10)
[2018-02-13] MEDS: GABAPENTIN 300 MG CAP PO ×2 (08:40→21:10)
[2018-02-13 12:13] LABS: BEDSIDE GLUCOSE 191 MG/DL (70-105)
[2018-02-13] MEDS: metFORMIN (GLUCOPHAGE) 1000 MG TABLET PO ×2 (12:16→17:02)
[2018-02-13] MEDS: PALIPERIDONE PALMITATE 234 MG/1.5 ML INJ (INVEGA SUSTENNA)(J2426) IM (12:16)
[2018-02-13 17:03] LABS: BEDSIDE GLUCOSE 128 MG/DL (70-105)
[2018-02-13] MEDS: LACTULOSE 20 GM/30 ML SYRUP UD PO (21:10)
[2018-02-13] MEDS: ATORVASTATIN 20 MG TAB PO (21:10)
[2018-02-13] MEDS: OLANZapine ORAL DISINTEGRATING TAB 5MG PO (21:10)
[2018-02-13 21:16] LABS: BEDSIDE GLUCOSE 129 MG/DL (70-105)
[2018-02-14] MEDS: LEVOTHYROXINE 100MCG TABLET (0.1MG) PO (05:59)
[2018-02-14 06:02] LABS: BEDSIDE GLUCOSE 106 MG/DL (70-105)
[2018-02-14] MEDS: HumaLOG INSULIN (NovoLOG) PER UNIT SC ×4 (06:21→21:00)
[2018-02-14] MEDS: OXcarbazepine 300 MG TAB PO ×3 (09:40→21:59)
[2018-02-14] MEDS: PARoxetine 10MG TABLET PO (09:40)
[2018-02-14] MEDS: GABAPENTIN 300 MG CAP PO ×2 (09:40→21:59)
[2018-02-14] MEDS: BENZTROPINE 1 MG TAB PO ×2 (09:40→22:00)
[2018-02-14 11:47] LABS: BEDSIDE GLUCOSE 117 MG/DL (70-105)
[2018-02-14] MEDS: metFORMIN (GLUCOPHAGE) 1000 MG TABLET PO ×2 (11:58→17:04)
[2018-02-14] MEDS: OLANZapine 5 MG TAB PO (12:04)
[2018-02-14 16:57] LABS: BEDSIDE GLUCOSE 141 MG/DL (70-105)
[2018-02-14 21:57] LABS: BEDSIDE GLUCOSE 140 MG/DL (70-105)
[2018-02-14] MEDS: LACTULOSE 20 GM/30 ML SYRUP UD PO (21:59)
[2018-02-14] MEDS: OLANZapine ORAL DISINTEGRATING TAB 5MG PO (22:00)
[2018-02-14] MEDS: ATORVASTATIN 20 MG TAB PO (22:00)
[2018-02-14] MEDS: traZODone 50 MG TAB PO (22:40)
[2018-02-15 06:22] LABS: BEDSIDE GLUCOSE 151 MG/DL (70-105)
[2018-02-15] MEDS: LEVOTHYROXINE 100MCG TABLET (0.1MG) PO (06:23)
[2018-02-15] MEDS: HumaLOG INSULIN (NovoLOG) PER UNIT SC ×4 (06:24→20:47)
[2018-02-15] MEDS: OXcarbazepine 300 MG TAB PO ×2 (09:05→20:50)
[2018-02-15] MEDS: GABAPENTIN 300 MG CAP PO ×2 (09:05→20:49)
[2018-02-15] MEDS: PARoxetine 20 MG TAB PO (09:06)
[2018-02-15] MEDS: BENZTROPINE 1 MG TAB PO ×2 (09:06→20:50)
[2018-02-15 11:41] LABS: BEDSIDE GLUCOSE 123 MG/DL (70-105)
[2018-02-15] MEDS: metFORMIN (GLUCOPHAGE) 1000 MG TABLET PO ×2 (12:02→17:07)
[2018-02-15 17:14] LABS: BEDSIDE GLUCOSE 102 MG/DL (70-105)
[2018-02-15] MEDS: LACTULOSE 20 GM/30 ML SYRUP UD PO (20:48)
[2018-02-15 20:49] LABS: BEDSIDE GLUCOSE 135 MG/DL (70-105)
[2018-02-15] MEDS: OLANZapine ORAL DISINTEGRATING TAB 5MG PO (20:49)
[2018-02-15] MEDS: ATORVASTATIN 20 MG TAB PO (20:50)
[2018-02-15] MEDS: MOM 30ML SUSPENSION UDC PO (21:39)
[2018-02-15] MEDS: ACETAMINOPHEN TAB 650MG DOSE (2X325MG) PO (23:44)
[2018-02-15] MEDS: traZODone 50 MG TAB PO (23:44)
[2018-02-16] MEDS: LEVOTHYROXINE 100MCG TABLET (0.1MG) PO (05:23)
[2018-02-16 05:25] LABS: BEDSIDE GLUCOSE 126 MG/DL (70-105)
[2018-02-16] MEDS: HumaLOG INSULIN (NovoLOG) PER UNIT SC ×4 (06:42→20:59)
[2018-02-16] MEDS: GABAPENTIN 300 MG CAP PO ×2 (08:19→20:59)
[2018-02-16] MEDS: PARoxetine 20 MG TAB PO (08:19)
[2018-02-16] MEDS: OXcarbazepine 300 MG TAB PO ×2 (08:19→20:59)
[2018-02-16] MEDS: BENZTROPINE 1 MG TAB PO ×2 (08:19→20:59)
[2018-02-16] MEDS: OLANZapine ORAL DISINTEGRATING TAB 5MG PO ×2 (09:24→20:59)
[2018-02-16] MEDS: ACETAMINOPHEN TAB 650MG DOSE (2X325MG) PO ×2 (11:14→21:04)
[2018-02-16 11:52] LABS: BEDSIDE GLUCOSE 204 MG/DL (70-105)
[2018-02-16] MEDS: metFORMIN (GLUCOPHAGE) 1000 MG TABLET PO ×2 (11:53→18:13)
[2018-02-16] MEDS: LORazepam 2 MG TAB PO ×2 (14:36→23:08)
[2018-02-16 16:42] LABS: BEDSIDE GLUCOSE 93 MG/DL (70-105)
[2018-02-16] MEDS: LACTULOSE 20 GM/30 ML SYRUP UD PO (20:58)
[2018-02-16 20:59] LABS: BEDSIDE GLUCOSE 115 MG/DL (70-105)
[2018-02-16] MEDS: ATORVASTATIN 20 MG TAB PO (20:59)
[2018-02-16] MEDS: traZODone 50 MG TAB PO (23:08)
[2018-02-17] MEDS: LEVOTHYROXINE 100MCG TABLET (0.1MG) PO (06:23)
[2018-02-17] MEDS: HumaLOG INSULIN (NovoLOG) PER UNIT SC ×4 (06:35→21:00)
[2018-02-17 06:37] LABS: BEDSIDE GLUCOSE 128 MG/DL (70-105)
[2018-02-17] MEDS: BENZTROPINE 1 MG TAB PO ×2 (08:12→21:00)
[2018-02-17] MEDS: OLANZapine ORAL DISINTEGRATING TAB 5MG PO ×2 (08:12→21:00)
[2018-02-17] MEDS: OXcarbazepine 300 MG TAB PO ×2 (08:12→21:00)
[2018-02-17] MEDS: GABAPENTIN 300 MG CAP PO ×2 (08:12→21:00)
[2018-02-17] MEDS ORDERED: PALIPERIDONE PALMITATE 234 MG/1.5 ML INJ (INVEGA SUSTENNA)(J2426) IM ×2 (09:00)
[2018-02-17 12:00] LABS: BEDSIDE GLUCOSE 151 MG/DL (70-105)
[2018-02-17] MEDS: metFORMIN (GLUCOPHAGE) 1000 MG TABLET PO ×2 (12:23→17:10)
[2018-02-17] MEDS: INFLUENZA QUADRIVALENT PF VACCINE 0.5ML SYRINGE (90686) IM (16:17)
[2018-02-17 17:16] LABS: BEDSIDE GLUCOSE 213 MG/DL (70-105)
[2018-02-17] MEDS: LACTULOSE 20 GM/30 ML SYRUP UD PO (21:00)
[2018-02-17] MEDS: ATORVASTATIN 20 MG TAB PO (21:00)
[2018-02-17 21:37] LABS: BEDSIDE GLUCOSE 146 MG/DL (70-105)
[2018-02-18] MEDS: guaiFENesin DM *SUGAR FREE* 5ML**DIABETIC TUSSIN DM PO (04:59)
[2018-02-18] MEDS: ACETAMINOPHEN TAB 650MG DOSE (2X325MG) PO ×2 (05:02→15:38)
[2018-02-18 05:54] LABS: BEDSIDE GLUCOSE 109 MG/DL (70-105)
[2018-02-18] MEDS: LEVOTHYROXINE 100MCG TABLET (0.1MG) PO (05:55)
[2018-02-18] MEDS: HumaLOG INSULIN (NovoLOG) PER UNIT SC ×4 (06:49→21:00)
[2018-02-18] MEDS: GABAPENTIN 300 MG CAP PO ×2 (09:34→21:00)
[2018-02-18] MEDS: BENZTROPINE 1 MG TAB PO ×2 (09:34→21:00)
[2018-02-18] MEDS: OLANZapine ORAL DISINTEGRATING TAB 5MG PO ×2 (09:34→21:00)
[2018-02-18] MEDS: OXcarbazepine 300 MG TAB PO (09:34)
[2018-02-18 11:39] LABS: BEDSIDE GLUCOSE 156 MG/DL (70-105)
[2018-02-18] MEDS: metFORMIN (GLUCOPHAGE) 1000 MG TABLET PO ×2 (12:02→17:40)
[2018-02-18] MEDS: LORazepam 2 MG TAB PO (15:38)
[2018-02-18 17:03] LABS: BEDSIDE GLUCOSE 137 MG/DL (70-105)
[2018-02-19] MEDS: ATORVASTATIN 20 MG TAB PO ×2 (01:37→21:06)
[2018-02-19] MEDS: OXcarbazepine 300 MG TAB PO ×3 (01:37→21:06)
[2018-02-19] MEDS: LACTULOSE 20 GM/30 ML SYRUP UD PO ×2 (01:37→21:05)
[2018-02-19] MEDS: LEVOTHYROXINE 100MCG TABLET (0.1MG) PO (06:13)
[2018-02-19 06:27] LABS: BEDSIDE GLUCOSE 113 MG/DL (70-105)
[2018-02-19] MEDS: HumaLOG INSULIN (NovoLOG) PER UNIT SC ×4 (06:31→21:00)
[2018-02-19] MEDS: OLANZapine ORAL DISINTEGRATING TAB 5MG PO ×2 (08:43→21:06)
[2018-02-19] MEDS: BENZTROPINE 1 MG TAB PO ×2 (08:43→21:06)
[2018-02-19] MEDS: GABAPENTIN 300 MG CAP PO ×2 (08:43→21:06)
[2018-02-19 11:42] LABS: BEDSIDE GLUCOSE 192 MG/DL (70-105)
[2018-02-19] MEDS: metFORMIN (GLUCOPHAGE) 1000 MG TABLET PO ×2 (11:52→17:03)
[2018-02-19] MEDS: guaiFENesin DM *SUGAR FREE* 5ML**DIABETIC TUSSIN DM PO ×2 (15:26→21:06)
[2018-02-19 16:59] LABS: BEDSIDE GLUCOSE 150 MG/DL (70-105)
[2018-02-19 21:57] LABS: BEDSIDE GLUCOSE 119 MG/DL (70-105)
[2018-02-19] MEDS: traZODone 50 MG TAB PO (21:57)
[2018-02-19] MEDS: LORazepam 2 MG TAB PO (21:57)
[2018-02-20] MEDS: ACETAMINOPHEN TAB 650MG DOSE (2X325MG) PO (02:51)
[2018-02-20] MEDS: guaiFENesin DM *SUGAR FREE* 5ML**DIABETIC TUSSIN DM PO ×2 (04:06→15:50)
[2018-02-20] MEDS: LEVOTHYROXINE 100MCG TABLET (0.1MG) PO (06:08)
[2018-02-20 06:12] LABS: BEDSIDE GLUCOSE 116 MG/DL (70-105)
[2018-02-20] MEDS: HumaLOG INSULIN (NovoLOG) PER UNIT SC ×4 (06:49→20:48)
[2018-02-20] MEDS: OLANZapine ORAL DISINTEGRATING TAB 5MG PO ×2 (09:52→20:48)
[2018-02-20] MEDS: BENZTROPINE 1 MG TAB PO ×2 (09:53→20:48)
[2018-02-20] MEDS: GABAPENTIN 300 MG CAP PO ×2 (09:53→20:48)
[2018-02-20] MEDS: OXcarbazepine 300 MG TAB PO ×2 (09:53→20:47)
[2018-02-20 11:47] LABS: BEDSIDE GLUCOSE 164 MG/DL (70-105)
[2018-02-20] MEDS: metFORMIN (GLUCOPHAGE) 1000 MG TABLET PO ×2 (11:57→17:08)
[2018-02-20 17:02] LABS: BEDSIDE GLUCOSE 209 MG/DL (70-105)
[2018-02-20 20:46] LABS: BEDSIDE GLUCOSE 159 MG/DL (70-105)
[2018-02-20] MEDS: ATORVASTATIN 20 MG TAB PO (20:48)
[2018-02-20] MEDS: LACTULOSE 20 GM/30 ML SYRUP UD PO (21:00)
[2018-02-20] MEDS: LORazepam 2 MG TAB PO (21:18)
[2018-02-20] MEDS: traZODone 50 MG TAB PO (21:18)
[2018-02-21] MEDS: ACETAMINOPHEN TAB 650MG DOSE (2X325MG) PO (02:51)
[2018-02-21] MEDS: LEVOTHYROXINE 100MCG TABLET (0.1MG) PO (06:05)
[2018-02-21 06:38] LABS: BEDSIDE GLUCOSE 161 MG/DL (70-105)
[2018-02-21] MEDS: HumaLOG INSULIN (NovoLOG) PER UNIT SC ×4 (06:48→21:00)
[2018-02-21] MEDS: OXcarbazepine 300 MG TAB PO ×2 (09:33→21:58)
[2018-02-21] MEDS: OLANZapine ORAL DISINTEGRATING TAB 5MG PO ×2 (09:34→21:59)
[2018-02-21] MEDS: BENZTROPINE 1 MG TAB PO ×2 (09:34→21:58)
[2018-02-21] MEDS: GABAPENTIN 300 MG CAP PO ×2 (09:34→21:58)
[2018-02-21 12:40] LABS: BEDSIDE GLUCOSE 221 MG/DL (70-105)
[2018-02-21] MEDS: metFORMIN (GLUCOPHAGE) 1000 MG TABLET PO ×2 (12:40→17:08)
[2018-02-21] MEDS: guaiFENesin DM *SUGAR FREE* 5ML**DIABETIC TUSSIN DM PO (15:06)
[2018-02-21 15:45] LABS: ALBUMIN 3.3 GM/DL (3.2-5.2); ALBUMIN/GLOBULIN RATIO 0.87 (1.00-1.93); ALKALINE PHOSPHATASE 105 U/L (45-117); ALT/SGPT 55 U/L (12-78); ANION GAP 8 MEQ/L (8-16); AST/SGOT 52 U/L (7-37); BILIRUBIN,TOTAL 0.3 MG/DL (0.2-1.0); BLOOD UREA NITROGEN 9 MG/DL (7-18); CALCIUM LEVEL 8.2 MG/DL (8.5-10.1); CARBON DIOXIDE LEVEL 27 MEQ/L (21-32); CHLORIDE LEVEL 103 MEQ/L (98-107); CREATININE FOR GFR 0.76 MG/DL (0.70-1.30); GLOMERULAR FILTRATION RATE > 60.0 (>60); GLUCOSE, FASTING 150 MG/DL (70-100); POTASSIUM SERUM 4.2 MEQ/L (3.5-5.1); SODIUM LEVEL 138 MEQ/L (136-145); TOTAL PROTEIN 7.1 GM/DL (6.4-8.2)
[2018-02-21 17:17] LABS: BEDSIDE GLUCOSE 237 MG/DL (70-105)
[2018-02-21] MEDS: LACTULOSE 20 GM/30 ML SYRUP UD PO (21:57)
[2018-02-21] MEDS: ATORVASTATIN 20 MG TAB PO (21:58)
[2018-02-21] MEDS: traZODone 50 MG TAB PO (21:59)
[2018-02-21 22:01] LABS: BEDSIDE GLUCOSE 208 MG/DL (70-105)
[2018-02-22] MEDS: guaiFENesin DM *SUGAR FREE* 5ML**DIABETIC TUSSIN DM PO ×2 (01:25→08:54)
[2018-02-22] MEDS: LORazepam 2 MG TAB PO (02:03)
[2018-02-22 05:38] LABS: BEDSIDE GLUCOSE 125 MG/DL (70-105)
[2018-02-22] MEDS: LEVOTHYROXINE 100MCG TABLET (0.1MG) PO (06:05)
[2018-02-22] MEDS: HumaLOG INSULIN (NovoLOG) PER UNIT SC ×4 (06:51→21:00)
[2018-02-22] MEDS: BENZTROPINE 1 MG TAB PO ×2 (08:54→21:37)
[2018-02-22] MEDS: GABAPENTIN 300 MG CAP PO ×2 (08:54→21:37)
[2018-02-22] MEDS: OXcarbazepine 300 MG TAB PO ×2 (08:54→21:37)
[2018-02-22] MEDS: OLANZapine ORAL DISINTEGRATING TAB 5MG PO ×2 (08:54→21:38)
[2018-02-22 12:02] LABS: BEDSIDE GLUCOSE 177 MG/DL (70-105)
[2018-02-22] MEDS: metFORMIN (GLUCOPHAGE) 1000 MG TABLET PO ×2 (12:11→17:13)
[2018-02-22 17:05] LABS: BEDSIDE GLUCOSE 205 MG/DL (70-105)
[2018-02-22 21:35] LABS: BEDSIDE GLUCOSE 210 MG/DL (70-105)
[2018-02-22] MEDS: LACTULOSE 20 GM/30 ML SYRUP UD PO (21:35)
[2018-02-22] MEDS: LORazepam 0.5 MG TAB PO (21:37)
[2018-02-22] MEDS: traZODone 50 MG TAB PO (21:37)
[2018-02-22] MEDS: ATORVASTATIN 20 MG TAB PO (21:38)
[2018-02-23 06:01] LABS: BEDSIDE GLUCOSE 124 MG/DL (70-105)
[2018-02-23] MEDS: LEVOTHYROXINE 100MCG TABLET (0.1MG) PO (06:05)
[2018-02-23] MEDS: HumaLOG INSULIN (NovoLOG) PER UNIT SC ×4 (06:43→21:00)
[2018-02-23] MEDS: OLANZapine ORAL DISINTEGRATING TAB 5MG PO ×3 (10:02→21:21)
[2018-02-23] MEDS: BENZTROPINE 1 MG TAB PO ×2 (10:02→21:21)
[2018-02-23] MEDS: OXcarbazepine 300 MG TAB PO ×2 (10:03→21:20)
[2018-02-23] MEDS: GABAPENTIN 300 MG CAP PO ×2 (10:03→21:20)
[2018-02-23 12:01] LABS: BEDSIDE GLUCOSE 258 MG/DL (70-105)
[2018-02-23] MEDS: metFORMIN (GLUCOPHAGE) 1000 MG TABLET PO ×2 (12:09→17:10)
[2018-02-23 16:56] LABS: BEDSIDE GLUCOSE 160 MG/DL (70-105)
[2018-02-23 21:18] LABS: BEDSIDE GLUCOSE 169 MG/DL (70-105)
[2018-02-23] MEDS: ATORVASTATIN 20 MG TAB PO (21:20)
[2018-02-23] MEDS: LACTULOSE 20 GM/30 ML SYRUP UD PO (21:20)
[2018-02-23] MEDS: traZODone 50 MG TAB PO (21:21)
[2018-02-24] MEDS: LEVOTHYROXINE 100MCG TABLET (0.1MG) PO (05:50)
[2018-02-24 05:55] LABS: BEDSIDE GLUCOSE 128 MG/DL (70-105)
[2018-02-24] MEDS: HumaLOG INSULIN (NovoLOG) PER UNIT SC ×4 (06:42→20:56)
[2018-02-24] MEDS: BENZTROPINE 1 MG TAB PO ×2 (09:14→20:55)
[2018-02-24] MEDS: GABAPENTIN 300 MG CAP PO ×2 (09:14→20:55)
[2018-02-24] MEDS: OXcarbazepine 300 MG TAB PO ×2 (09:14→20:56)
[2018-02-24] MEDS: metFORMIN (GLUCOPHAGE) 1000 MG TABLET PO ×2 (11:57→17:05)
[2018-02-24 12:04] LABS: BEDSIDE GLUCOSE 236 MG/DL (70-105)
[2018-02-24 17:04] LABS: BEDSIDE GLUCOSE 193 MG/DL (70-105)
[2018-02-24 20:52] LABS: BEDSIDE GLUCOSE 179 MG/DL (70-105)
[2018-02-24] MEDS: ATORVASTATIN 20 MG TAB PO (20:55)
[2018-02-24] MEDS: traZODone 50 MG TAB PO (20:55)
[2018-02-24] MEDS: OLANZapine ORAL DISINTEGRATING TAB 5MG PO (20:56)
[2018-02-24] MEDS: LACTULOSE 20 GM/30 ML SYRUP UD PO (20:59)
[2018-02-25] MEDS: LEVOTHYROXINE 100MCG TABLET (0.1MG) PO (06:21)
[2018-02-25 06:37] LABS: BEDSIDE GLUCOSE 140 MG/DL (70-105)
[2018-02-25] MEDS: HumaLOG INSULIN (NovoLOG) PER UNIT SC (06:37)
[2018-02-25] MEDS: OXcarbazepine 300 MG TAB PO (08:25)
[2018-02-25] MEDS: BENZTROPINE 1 MG TAB PO (08:25)
[2018-02-25] MEDS: GABAPENTIN 300 MG CAP PO (08:25)
== END 2018-02-25 10:15 | disposition home or self-care (01) | DRG 885 ==
LOC: M ED 13:26 → M PSY 16:20
DX: F31.0 Bipolar disorder, current episode hypomanic (principal); R45.851 Suicidal ideations; Z88.0 Allergy status to penicillin; Z79.899 Other long term (current) drug therapy; I10 Essential (primary) hypertension; E03.9 Hypothyroidism, unspecified; E11.51 Type 2 diabetes mellitus with diabetic peripheral angiopathy without gangrene; E78.5 Hyperlipidemia, unspecified; G47.00 Insomnia, unspecified; E66.9 Obesity, unspecified; F41.9 Anxiety disorder, unspecified; Z68.35 Body mass index [BMI] 35.0-35.9, adult

== ENCOUNTER 2018-03-09 07:30 | Inpatient (IN) | payer MEDICARE, MEDICAID ==
[2018-03-09 08:14] LABS: HEMATOCRIT 48.1 % (42.0-52.0); MEAN CORPUSCULAR HEMOGLOBIN 28.1 pg (27.0-33.0); MEAN CORPUSCULAR HGB CONC 33.3 g/dl (32.0-36.5); MEAN CORPUSCULAR VOLUME 84.5 fl (80.0-96.0); PLATELET COUNT, AUTOMATED 285 10^3/uL (150-450); RED BLOOD COUNT 5.69 10^6/uL (4.30-6.10); RED CELL DISTRIBUTION WIDTH 13.1 % (11.5-14.5); WHITE BLOOD COUNT 8.5 10^3/uL (4.0-10.0)
[2018-03-09 08:26] LABS: AMPHETAMINES LEVEL URINE NEGATIVE (NEGATIVE); BARBITURATES URINE NEGATIVE (NEGATIVE); BENZODIAZEPINES URINE NEGATIVE (NEGATIVE); CANNABINOIDS URINE NEGATIVE (NEGATIVE); COCAINE METABOLITE URINE NEGATIVE (NEGATIVE); METHADONE URINE NEGATIVE (NEGATIVE); OPIATES URINE NEGATIVE (NEGATIVE); PHENCYCLIDINE URINE NEGATIVE (NEGATIVE)
[2018-03-09 09:42] LABS: ACETAMINOPHEN LEVEL < 2.0 UG/ML (10.0-30.0); ALBUMIN 3.9 GM/DL (3.2-5.2); ALBUMIN/GLOBULIN RATIO 1.03 (1.00-1.93); ALKALINE PHOSPHATASE 116 U/L (45-117); ALT/SGPT 53 U/L (12-78); ANION GAP 10 MEQ/L (8-16); AST/SGOT 28 U/L (7-37); BILIRUBIN,DIRECT 0.1 MG/DL (0.0-0.2); BILIRUBIN,TOTAL 0.3 MG/DL (0.2-1.0); BLOOD UREA NITROGEN 9 MG/DL (7-18); CALCIUM LEVEL 8.4 MG/DL (8.5-10.1); CARBON DIOXIDE LEVEL 25 MEQ/L (21-32); CHLORIDE LEVEL 109 MEQ/L (98-107); CREATININE FOR GFR 0.92 MG/DL (0.70-1.30); ETHYL ALCOHOL (ETHANOL) 0.004 % (0.000-0.010); GLOMERULAR FILTRATION RATE > 60.0 (>60); GLUCOSE, FASTING 169 MG/DL (70-100); SALICYLATE LEVEL < 1.7 MG/DL (5.0-30.0); SODIUM LEVEL 144 MEQ/L (136-145); TOTAL PROTEIN 7.7 GM/DL (6.4-8.2)
[2018-03-09] MEDS ORDERED: MAALOX 30 ML SUSP *UDC PO (12:30)
[2018-03-09] MEDS ORDERED: ACETAMINOPHEN TAB 650MG DOSE (2X325MG) PO (12:30)
[2018-03-09] MEDS ORDERED: IBUPROFEN 800 MG TAB PO (19:00)
[2018-03-09] MEDS ORDERED: traMADol 50 MG TAB PO (19:15)
[2018-03-09 20:57] LABS: BEDSIDE GLUCOSE 133 MG/DL (70-105)
[2018-03-09] MEDS: OLANZapine 10 MG TAB PO (20:58)
[2018-03-09] MEDS: GABAPENTIN 300 MG CAP PO (20:58)
[2018-03-09] MEDS: ATORVASTATIN 20 MG TAB PO (20:58)
[2018-03-09] MEDS: OXcarbazepine 300 MG TAB PO (20:58)
[2018-03-09] MEDS: traZODone 50 MG TAB PO (20:58)
[2018-03-09] MEDS: HumaLOG INSULIN (NovoLOG) PER UNIT SC (21:39)
[2018-03-09] MEDS ORDERED: GLUCAGON FOR INJ 1 MG VIAL (J1610) SC (21:45)
[2018-03-09] MEDS ORDERED: GLUCOSE 4 GM CHEW TABLET PO (21:45)
[2018-03-09] MEDS ORDERED: DEXTROSE 50% 50 ML SYRINGE IV (21:45)
[2018-03-10 06:46] LABS: BEDSIDE GLUCOSE 129 MG/DL (70-105)
[2018-03-10] MEDS: LEVOTHYROXINE 100MCG TABLET (0.1MG) PO (06:47)
[2018-03-10] MEDS: HumaLOG INSULIN (NovoLOG) PER UNIT SC ×4 (06:47→21:00)
[2018-03-10] MEDS: metFORMIN (GLUCOPHAGE) 1000 MG TABLET PO ×2 (08:46→17:11)
[2018-03-10] MEDS: GABAPENTIN 300 MG CAP PO ×2 (08:46→20:07)
[2018-03-10] MEDS: LISINOPRIL 10 MG TAB PO (08:46)
[2018-03-10 12:39] LABS: BEDSIDE GLUCOSE 120 MG/DL (70-105)
[2018-03-10] MEDS: FLUoxetine 10 MG CAP PO (14:39)
[2018-03-10 17:14] LABS: BEDSIDE GLUCOSE 190 MG/DL (70-105)
[2018-03-10] MEDS: OLANZapine 10 MG TAB PO (20:07)
[2018-03-10] MEDS: OXcarbazepine 300 MG TAB PO (20:07)
[2018-03-10] MEDS: ATORVASTATIN 20 MG TAB PO (20:07)
[2018-03-10] MEDS: traZODone 50 MG TAB PO (20:58)
[2018-03-10 21:09] LABS: BEDSIDE GLUCOSE 157 MG/DL (70-105)
[2018-03-11] MEDS: LEVOTHYROXINE 100MCG TABLET (0.1MG) PO (06:06)
[2018-03-11 06:42] LABS: BEDSIDE GLUCOSE 117 MG/DL (70-105)
[2018-03-11] MEDS: HumaLOG INSULIN (NovoLOG) PER UNIT SC ×4 (06:52→21:00)
[2018-03-11] MEDS: FLUoxetine 10 MG CAP PO (08:33)
[2018-03-11] MEDS: metFORMIN (GLUCOPHAGE) 1000 MG TABLET PO ×2 (08:34→17:12)
[2018-03-11] MEDS: LISINOPRIL 10 MG TAB PO (08:34)
[2018-03-11] MEDS: GABAPENTIN 300 MG CAP PO ×2 (08:34→21:48)
[2018-03-11 12:31] LABS: BEDSIDE GLUCOSE 119 MG/DL (70-105)
[2018-03-11 17:29] LABS: BEDSIDE GLUCOSE 138 MG/DL (70-105)
[2018-03-11 21:47] LABS: BEDSIDE GLUCOSE 171 MG/DL (70-105)
[2018-03-11] MEDS: ATORVASTATIN 20 MG TAB PO (21:48)
[2018-03-11] MEDS: OLANZapine 10 MG TAB PO (21:48)
[2018-03-11] MEDS: OXcarbazepine 300 MG TAB PO (21:48)
[2018-03-11] MEDS: traZODone 50 MG TAB PO (22:02)
[2018-03-12] MEDS: LEVOTHYROXINE 100MCG TABLET (0.1MG) PO (06:01)
[2018-03-12 06:39] LABS: BEDSIDE GLUCOSE 123 MG/DL (70-105)
[2018-03-12] MEDS: HumaLOG INSULIN (NovoLOG) PER UNIT SC ×4 (06:53→20:37)
[2018-03-12] MEDS: FLUoxetine 10 MG CAP PO (08:48)
[2018-03-12] MEDS: GABAPENTIN 300 MG CAP PO ×2 (08:48→20:34)
[2018-03-12] MEDS: LISINOPRIL 10 MG TAB PO (08:49)
[2018-03-12] MEDS: metFORMIN (GLUCOPHAGE) 1000 MG TABLET PO ×2 (08:49→17:02)
[2018-03-12] MEDS: MOM 30ML SUSPENSION UDC PO (13:20)
[2018-03-12 13:32] LABS: BEDSIDE GLUCOSE 139 MG/DL (70-105)
[2018-03-12 17:00] LABS: BEDSIDE GLUCOSE 136 MG/DL (70-105)
[2018-03-12] MEDS: OXcarbazepine 300 MG TAB PO (20:34)
[2018-03-12] MEDS: OLANZapine 10 MG TAB PO (20:34)
[2018-03-12] MEDS: ATORVASTATIN 20 MG TAB PO (20:34)
[2018-03-12 20:35] LABS: BEDSIDE GLUCOSE 150 MG/DL (70-105)
[2018-03-12] MEDS: traZODone 50 MG TAB PO (21:31)
[2018-03-13 06:25] LABS: BEDSIDE GLUCOSE 128 MG/DL (70-105)
[2018-03-13] MEDS: LEVOTHYROXINE 100MCG TABLET (0.1MG) PO (06:25)
[2018-03-13] MEDS: HumaLOG INSULIN (NovoLOG) PER UNIT SC ×4 (06:48→20:37)
[2018-03-13] MEDS: FLUoxetine 10 MG CAP PO (08:32)
[2018-03-13] MEDS: GABAPENTIN 300 MG CAP PO ×2 (08:32→20:40)
[2018-03-13] MEDS: LISINOPRIL 10 MG TAB PO (08:33)
[2018-03-13] MEDS: metFORMIN (GLUCOPHAGE) 1000 MG TABLET PO ×2 (08:33→17:11)
[2018-03-13 12:16] LABS: BEDSIDE GLUCOSE 104 MG/DL (70-105)
[2018-03-13 17:07] LABS: BEDSIDE GLUCOSE 149 MG/DL (70-105)
[2018-03-13 20:39] LABS: BEDSIDE GLUCOSE 146 MG/DL (70-105)
[2018-03-13] MEDS: OXcarbazepine 300 MG TAB PO (20:40)
[2018-03-13] MEDS: ATORVASTATIN 20 MG TAB PO (20:40)
[2018-03-13] MEDS: OLANZapine 10 MG TAB PO (20:40)
[2018-03-13] MEDS: traZODone 50 MG TAB PO (21:51)
[2018-03-14] MEDS: LEVOTHYROXINE 100MCG TABLET (0.1MG) PO (06:21)
[2018-03-14 06:27] LABS: BEDSIDE GLUCOSE 131 MG/DL (70-105)
[2018-03-14] MEDS: HumaLOG INSULIN (NovoLOG) PER UNIT SC ×4 (06:34→21:00)
[2018-03-14] MEDS: FLUoxetine 10 MG CAP PO (08:09)
[2018-03-14] MEDS: LISINOPRIL 10 MG TAB PO (08:09)
[2018-03-14] MEDS: GABAPENTIN 300 MG CAP PO ×2 (08:09→21:22)
[2018-03-14] MEDS: metFORMIN (GLUCOPHAGE) 1000 MG TABLET PO ×2 (08:09→17:00)
[2018-03-14 11:52] LABS: BEDSIDE GLUCOSE 135 MG/DL (70-105)
[2018-03-14 16:54] LABS: BEDSIDE GLUCOSE 164 MG/DL (70-105)
[2018-03-14 21:21] LABS: BEDSIDE GLUCOSE 97 MG/DL (70-105)
[2018-03-14] MEDS: DOXEPIN 10 MG CAP PO (21:22)
[2018-03-14] MEDS: OLANZapine 10 MG TAB PO (21:23)
[2018-03-14] MEDS: ATORVASTATIN 20 MG TAB PO (21:23)
[2018-03-14] MEDS: OXcarbazepine 300 MG TAB PO (21:23)
[2018-03-15] MEDS: LEVOTHYROXINE 100MCG TABLET (0.1MG) PO (06:09)
[2018-03-15 06:34] LABS: BEDSIDE GLUCOSE 116 MG/DL (70-105)
[2018-03-15] MEDS: HumaLOG INSULIN (NovoLOG) PER UNIT SC ×4 (06:41→20:58)
[2018-03-15] MEDS: metFORMIN (GLUCOPHAGE) 1000 MG TABLET PO ×2 (08:06→17:05)
[2018-03-15] MEDS: GABAPENTIN 300 MG CAP PO ×2 (08:06→20:58)
[2018-03-15] MEDS: LISINOPRIL 10 MG TAB PO (08:07)
[2018-03-15] MEDS: FLUoxetine 10 MG CAP PO (08:07)
[2018-03-15 11:52] LABS: BEDSIDE GLUCOSE 153 MG/DL (70-105)
[2018-03-15 17:05] LABS: BEDSIDE GLUCOSE 162 MG/DL (70-105)
[2018-03-15 20:58] LABS: BEDSIDE GLUCOSE 124 MG/DL (70-105)
[2018-03-15] MEDS: OLANZapine 10 MG TAB PO (20:58)
[2018-03-15] MEDS: ATORVASTATIN 20 MG TAB PO (20:58)
[2018-03-15] MEDS: OXcarbazepine 300 MG TAB PO (20:58)
[2018-03-15] MEDS: DOXEPIN 25 MG CAP PO (20:58)
[2018-03-16] MEDS: LEVOTHYROXINE 100MCG TABLET (0.1MG) PO (06:07)
[2018-03-16 06:35] LABS: BEDSIDE GLUCOSE 108 MG/DL (70-105)
[2018-03-16] MEDS: HumaLOG INSULIN (NovoLOG) PER UNIT SC ×4 (06:37→21:00)
[2018-03-16] MEDS: metFORMIN (GLUCOPHAGE) 1000 MG TABLET PO ×2 (07:40→17:05)
[2018-03-16] MEDS: GABAPENTIN 300 MG CAP PO ×2 (08:43→21:06)
[2018-03-16] MEDS: FLUoxetine 10 MG CAP PO (08:43)
[2018-03-16] MEDS: LISINOPRIL 10 MG TAB PO (08:44)
[2018-03-16 11:51] LABS: BEDSIDE GLUCOSE 116 MG/DL (70-105)
[2018-03-16] MEDS: MOM 30ML SUSPENSION UDC PO (11:55)
[2018-03-16 17:25] LABS: BEDSIDE GLUCOSE 176 MG/DL (70-105)
[2018-03-16 21:06] LABS: BEDSIDE GLUCOSE 133 MG/DL (70-105)
[2018-03-16] MEDS: ATORVASTATIN 20 MG TAB PO (21:06)
[2018-03-16] MEDS: OLANZapine 10 MG TAB PO (21:07)
[2018-03-16] MEDS: OXcarbazepine 300 MG TAB PO (21:07)
[2018-03-16] MEDS: DOXEPIN 25 MG CAP PO (23:00)
[2018-03-17 06:30] LABS: BEDSIDE GLUCOSE 117 MG/DL (70-105)
[2018-03-17] MEDS: LEVOTHYROXINE 100MCG TABLET (0.1MG) PO (06:45)
[2018-03-17] MEDS: HumaLOG INSULIN (NovoLOG) PER UNIT SC ×4 (06:47→21:00)
[2018-03-17] MEDS: FLUoxetine 10 MG CAP PO (09:00)
[2018-03-17] MEDS: GABAPENTIN 300 MG CAP PO ×2 (09:00→21:19)
[2018-03-17] MEDS: metFORMIN (GLUCOPHAGE) 1000 MG TABLET PO ×2 (09:01→17:05)
[2018-03-17] MEDS: LISINOPRIL 10 MG TAB PO (09:01)
[2018-03-17] MEDS ORDERED: PALIPERIDONE PALMITATE 234 MG/1.5 ML INJ (INVEGA SUSTENNA)(J2426) IM (10:00)
[2018-03-17] MEDS: PALIPERIDONE PALMITATE 234 MG/1.5 ML INJ (INVEGA SUSTENNA)(J2426) IM (10:07)
[2018-03-17 11:53] LABS: BEDSIDE GLUCOSE 156 MG/DL (70-105)
[2018-03-17 14:20] LABS: OXCARBAZEPINE 10 ug/mL (10-35)
[2018-03-17 17:25] LABS: BEDSIDE GLUCOSE 165 MG/DL (70-105)
[2018-03-17] MEDS: OXcarbazepine 300 MG TAB PO (21:00)
[2018-03-17 21:14] LABS: BEDSIDE GLUCOSE 154 MG/DL (70-105)
[2018-03-17] MEDS: OLANZapine 10 MG TAB PO (21:19)
[2018-03-17] MEDS: ATORVASTATIN 20 MG TAB PO (21:19)
[2018-03-17] MEDS: DOXEPIN 25 MG CAP PO (21:40)
[2018-03-18] MEDS: LEVOTHYROXINE 100MCG TABLET (0.1MG) PO (05:24)
[2018-03-18 05:40] LABS: BEDSIDE GLUCOSE 126 MG/DL (70-105)
[2018-03-18] MEDS: HumaLOG INSULIN (NovoLOG) PER UNIT SC ×4 (06:33→21:00)
[2018-03-18] MEDS: metFORMIN (GLUCOPHAGE) 1000 MG TABLET PO ×2 (07:37→17:02)
[2018-03-18] MEDS: LISINOPRIL 10 MG TAB PO (08:11)
[2018-03-18] MEDS: GABAPENTIN 300 MG CAP PO ×2 (08:11→21:55)
[2018-03-18] MEDS: FLUoxetine 10 MG CAP PO (08:11)
[2018-03-18 11:39] LABS: BEDSIDE GLUCOSE 122 MG/DL (70-105)
[2018-03-18 17:06] LABS: BEDSIDE GLUCOSE 185 MG/DL (70-105)
[2018-03-18 21:53] LABS: BEDSIDE GLUCOSE 144 MG/DL (70-105)
[2018-03-18] MEDS: OLANZapine 10 MG TAB PO (21:55)
[2018-03-18] MEDS: ATORVASTATIN 20 MG TAB PO (21:55)
[2018-03-18] MEDS: DOXEPIN 25 MG CAP PO (21:55)
[2018-03-18] MEDS: OXcarbazepine 300 MG TAB PO (21:56)
[2018-03-19] MEDS: LEVOTHYROXINE 100MCG TABLET (0.1MG) PO (06:09)
[2018-03-19] MEDS: HumaLOG INSULIN (NovoLOG) PER UNIT SC ×4 (06:50→21:00)
[2018-03-19 06:53] LABS: BEDSIDE GLUCOSE 120 MG/DL (70-105)
[2018-03-19] MEDS: FLUoxetine 10 MG CAP PO (08:55)
[2018-03-19] MEDS: GABAPENTIN 300 MG CAP PO ×2 (08:55→21:25)
[2018-03-19] MEDS: metFORMIN (GLUCOPHAGE) 1000 MG TABLET PO ×2 (08:55→17:12)
[2018-03-19] MEDS: LISINOPRIL 10 MG TAB PO (08:55)
[2018-03-19 12:14] LABS: BEDSIDE GLUCOSE 103 MG/DL (70-105)
[2018-03-19 17:24] LABS: BEDSIDE GLUCOSE 147 MG/DL (70-105)
[2018-03-19] MEDS: ATORVASTATIN 20 MG TAB PO (21:25)
[2018-03-19] MEDS: OLANZapine 10 MG TAB PO (21:25)
[2018-03-19] MEDS: OXcarbazepine 300 MG TAB PO (21:25)
[2018-03-19] MEDS: DOXEPIN 25 MG CAP PO (21:28)
[2018-03-19 21:29] LABS: BEDSIDE GLUCOSE 124 MG/DL (70-105)
[2018-03-20] MEDS: LEVOTHYROXINE 100MCG TABLET (0.1MG) PO (06:03)
[2018-03-20 06:20] LABS: BEDSIDE GLUCOSE 102 MG/DL (70-105)
[2018-03-20] MEDS: HumaLOG INSULIN (NovoLOG) PER UNIT SC ×4 (06:20→21:00)
[2018-03-20] MEDS: FLUoxetine 10 MG CAP PO (09:17)
[2018-03-20] MEDS: metFORMIN (GLUCOPHAGE) 1000 MG TABLET PO ×2 (09:17→17:08)
[2018-03-20] MEDS: GABAPENTIN 300 MG CAP PO ×2 (09:18→21:11)
[2018-03-20] MEDS: LISINOPRIL 10 MG TAB PO (09:19)
[2018-03-20 11:59] LABS: BEDSIDE GLUCOSE 104 MG/DL (70-105)
[2018-03-20 17:08] LABS: BEDSIDE GLUCOSE 154 MG/DL (70-105)
[2018-03-20 20:18] LABS: BEDSIDE GLUCOSE 134 MG/DL (70-105)
[2018-03-20] MEDS: DOXEPIN 25 MG CAP PO (21:10)
[2018-03-20] MEDS: ATORVASTATIN 20 MG TAB PO (21:10)
[2018-03-20] MEDS: OLANZapine 10 MG TAB PO (21:10)
[2018-03-20] MEDS: OXcarbazepine 300 MG TAB PO (21:11)
[2018-03-21] MEDS: LEVOTHYROXINE 100MCG TABLET (0.1MG) PO (06:08)
[2018-03-21 06:22] LABS: BEDSIDE GLUCOSE 139 MG/DL (70-105)
[2018-03-21] MEDS: HumaLOG INSULIN (NovoLOG) PER UNIT SC ×3 (06:36→12:52)
[2018-03-21] MEDS: metFORMIN (GLUCOPHAGE) 1000 MG TABLET PO ×2 (08:18→12:52)
[2018-03-21] MEDS: FLUoxetine 10 MG CAP PO (08:18)
[2018-03-21] MEDS: GABAPENTIN 300 MG CAP PO (08:18)
[2018-03-21] MEDS: LISINOPRIL 10 MG TAB PO (08:18)
== END 2018-03-21 12:36 | disposition home or self-care (01) | DRG 885 ==
LOC: M PSY 03-19 10:22 → M ED 07:30 → M ED INP 12:20 → M PSY 14:15
DX: F31.9 Bipolar disorder, unspecified (principal); R45.851 Suicidal ideations; Z79.899 Other long term (current) drug therapy; Z88.0 Allergy status to penicillin; I10 Essential (primary) hypertension; E03.9 Hypothyroidism, unspecified; E11.51 Type 2 diabetes mellitus with diabetic peripheral angiopathy without gangrene; E66.9 Obesity, unspecified; F41.9 Anxiety disorder, unspecified; G47.00 Insomnia, unspecified; E78.5 Hyperlipidemia, unspecified

== ENCOUNTER 2018-05-12 14:59 | Inpatient (IN) | payer MEDICARE, MEDICAID ==
[~2018-05-12] VITALS: Ht 177.8 cm; Wt 108.6 kg
[~2018-05-12 14:59] MED LIST: /AMLO25TA OR; /ATOR40TA PO; /ESCI20TA OR; /HALO5TAB OR; /QUET10TA; /QUET10TA PO; ADVI200T PO; AMBI5TAB PO; AMOX TR K CLV; AMOX500C PO; ATOR1TAB21 PO; ATOR40TA75 PO; BENA25TA4 PO; BENZ-52 PO; BENZ1TA PO; BENZ2TAB5 PO; CARD120T4 PO; CARD60TA OR; CART240C3 PO; CELE20TA; CELE20TA OR; CLEO300C2 PO; COGE1INJ PO; CYCL10TA; CYCL10TA PO; DEBR6.5S4; DEPA250T2 PO; DEPA250T32 PO; DEPA500T2 OR; DEPA500T2 PO; DEPAKOTE; DEPAKOTE PO; DILT1TAB3 PO; DILT240C77 PO; DILT360C12 PO; DIPH50TA3 PO; DIVA500T9 PO; DOXE25CA PO; FLUP10TA PO; FLUP5TA PO; FURO20TA2 PO; GABA-843 PO; GABA-845 PO; GABA600T4 PO; GLUC1000 OR; HALDOL DEC IM; HALDOL DECANOATE; HALO20TA; HYDR50TA70 PO; IBUP-1022 PO; IBUP80TA PO; INSULIN ASPART; INVE156I IM; INVE234I IM; INVE3TAB2 PO; INVE6TAB3 PO; INVE9TAB PO; INVEGA SUSTENA IM; INVO300T PO; JANUVIA PO; LACT10SO3 PO; LANTUS INSULIN SC; LASI20TA OR; LASI20TA3 PO; LEVO100T5 PO; LEVO25TA5 PO; LEVO75TA4 PO; LISI-542 PO; LISI10TA4 PO; LISI5TAB PO; MAGNESIUM OXIDE PO; METF10004 PO; NEUR300C PO; NIZORAL 2% TOP; NORV5TAB; NORV5TAB OR; OLAN10TA12 PO; OLAN10TA2 PO; OLAN15TA10 PO; OLAN20TA14 PO; OLAN5ZYD PO; OXCA300T14 PO; PALI1TAB4 PO; PERP8TAB25 PO; PROZ10CA7 PO; QUET30TA OR; RISP1TAB OR; RISP2TAB12 OR; SERO200T OR; SERO200T PO; SERT25TA PO; SYNT25TA PO; TRAM50TA2 PO; TRAZ100T; TRAZ50TA OR; TRAZO50TA PO; TRUL10IN SC; ZYPR10TA; ZYPR10TA OR; ZYPR20TA PO; ambien PO; eye drops; flexeril PO; invega IM; prolixin PO; risperdal consta IM
[2018-05-12 15:57] LABS: HEMATOCRIT 44.6 % (42.0-52.0); HEMOGLOBIN 15.2 g/dl (13.5-17.5); MEAN CORPUSCULAR HEMOGLOBIN 27.9 pg (27.0-33.0); MEAN CORPUSCULAR HGB CONC 34.1 g/dl (32.0-36.5); MEAN CORPUSCULAR VOLUME 81.8 fl (80.0-96.0); PLATELET COUNT, AUTOMATED 238 10^3/uL (150-450); RED BLOOD COUNT 5.45 10^6/uL (4.30-6.10); WHITE BLOOD COUNT 10.2 10^3/uL (4.0-10.0)
[2018-05-12 16:17] LABS: AMPHETAMINES LEVEL URINE NEGATIVE (NEGATIVE); BARBITURATES URINE NEGATIVE (NEGATIVE); BENZODIAZEPINES URINE NEGATIVE (NEGATIVE); CANNABINOIDS URINE NEGATIVE (NEGATIVE); COCAINE METABOLITE URINE NEGATIVE (NEGATIVE); METHADONE URINE NEGATIVE (NEGATIVE); OPIATES URINE NEGATIVE (NEGATIVE); PHENCYCLIDINE URINE NEGATIVE (NEGATIVE)
[2018-05-12 16:28] LABS: ACETAMINOPHEN LEVEL < 2.0 UG/ML (10.0-30.0); ALT/SGPT 78 U/L (12-78); BILIRUBIN,DIRECT 0.2 MG/DL (0.0-0.2); BILIRUBIN,TOTAL 0.6 MG/DL (0.2-1.0); BLOOD UREA NITROGEN 9 MG/DL (7-18); CALCIUM LEVEL 8.3 MG/DL (8.5-10.1); CARBON DIOXIDE LEVEL 27 MEQ/L (21-32); CHLORIDE LEVEL 102 MEQ/L (98-107); CREATININE FOR GFR 0.67 MG/DL (0.70-1.30); ETHYL ALCOHOL (ETHANOL) < 0.003 % (0.000-0.010); GLOMERULAR FILTRATION RATE > 60.0 (>60); GLUCOSE, FASTING 181 MG/DL (70-100); POTASSIUM SERUM 3.5 MEQ/L (3.5-5.1); SALICYLATE LEVEL < 1.7 MG/DL (5.0-30.0); SODIUM LEVEL 139 MEQ/L (136-145); TOTAL PROTEIN 7.3 GM/DL (6.4-8.2)
[2018-05-12] MEDS ORDERED: DOXE50CA PO (17:27)
[2018-05-12] MEDS ORDERED: PROZ10CA7 PO (17:27)
[2018-05-12] MEDS ORDERED: OLAN10TA2 PO (17:28)
[2018-05-12] MEDS ORDERED: OXCA300T14 PO (17:28)
[2018-05-12] MEDS ORDERED: MIRT1TAB PO (17:30)
[2018-05-12] MEDS ORDERED: ABIL400I IM (17:30)
[2018-05-12] MEDS ORDERED: VRAY3CAP PO (17:32)
[2018-05-12] MEDS ORDERED: GABA600T4 PO (17:32)
[2018-05-12] MEDS ORDERED: JARD1TAB PO (17:32)
[2018-05-12 17:34] LABS: BILIRUBIN, URINE MANUAL NEGATIVE (NEGATIVE); GLUCOSE, URINE (UA) MANUAL NEGATIVE (NEGATIVE); KETONE, URINE MANUAL NEGATIVE (NEGATIVE); UROBILINOGEN, URINE MANUAL NORMAL (NORMAL)
[2018-05-12 17:35] LABS: AMORPHOUS SEDIMENT, URINE LARGE AMOUNT (NEGATIVE); BACTERIA, URINE NONE SEEN; HYALINE CAST, URINE NONE SEEN /lpf (0-1); MUCUS, URINE SMALL AMOUNT (NEGATIVE); RBC, URINE NONE SEEN /hpf (0-3); SQUAMOUS EPITHELIAL CELL URINE NONE SEEN /hpf (SMALL AMT)
[2018-05-12] MEDS ORDERED: LISI-542 PO (17:36)
[2018-05-12] MEDS ORDERED: MAALOX 30 ML SUSP *UDC PO PRN (18:15)
[2018-05-12] MEDS ORDERED: MOM 30ML SUSPENSION UDC PO PRN (18:15)
[2018-05-12] MEDS ORDERED: ACETAMINOPHEN TAB 650MG DOSE (2X325MG) PO PRN (18:15)
[2018-05-12] MEDS ORDERED: traZODone 50 MG TAB PO PRN (18:15)
[2018-05-12 19:45] VITALS: BP 162/110
[2018-05-12] MEDS ORDERED: DEXTROSE 50% 50 ML SYRINGE IV PRN (20:30)
[2018-05-12] MEDS ORDERED: GLUCOSE 4 GM CHEW TABLET PO PRN (20:30)
[2018-05-12] MEDS ORDERED: GLUCAGON FOR INJ 1 MG VIAL (J1610) SC PRN (20:30)
[2018-05-12] MEDS: HumaLOG INSULIN (NovoLOG) PER UNIT SC SCH (20:41)
[2018-05-12] MEDS: MIRTAZAPINE 7.5MG PER 1/2 TABLET PO SCH (20:44)
[2018-05-12] MEDS: DOXEPIN 25 MG CAP PO SCH (20:44)
[2018-05-12] MEDS: GABAPENTIN 300 MG CAP PO SCH (20:44)
[2018-05-12] MEDS: OLANZapine 10 MG TAB PO SCH (20:44)
[2018-05-12] MEDS: ATORVASTATIN 20 MG TAB PO SCH (20:44)
[2018-05-12] MEDS: LISINOPRIL 5 MG TAB PO SCH (20:45)
[2018-05-12] MEDS: OXcarbazepine 300 MG TAB PO SCH (20:45)
[2018-05-13] MEDS: LEVOTHYROXINE 100MCG TABLET (0.1MG) PO SCH (05:53)
[2018-05-13 07:00] VITALS: BP 148/98
[2018-05-13] MEDS: HumaLOG INSULIN (NovoLOG) PER UNIT SC SCH ×4 (07:43→20:33)
[2018-05-13] MEDS: FLUoxetine 10 MG CAP PO SCH (08:44)
[2018-05-13] MEDS: GABAPENTIN 300 MG CAP PO SCH ×2 (08:44→20:33)
[2018-05-13] MEDS: LISINOPRIL 5 MG TAB PO SCH (08:44)
--- NOTE | 2018-05-13 10:53 | HPEPDOC ---
[facility] Medical History & Physical Date of Admission May 12, 2018 History and Physical PCP: Dr Peterson, [facility] ATTENDING: Dr. Henry Pinzon HPI: 47yoM admitted to [facility] for Bipolar disorder, being medically examined today. The patient is a poor historian. Denies any fevers, chills, weakness, fatigue, AMIN, CP, SOB, cough, palpitations, abdominal pain, N/V/D or changes in bowel or bladder habits. PMHx: Hypertension Hypothyroidism NIDDM Peripheral neuropathy Hyperlipidemia Insomnia Bipolar disorder Schizoaffective disorder Depression/anxiety Poor dentition Obesity. BMI 33.7. 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 ROS: As noted in HPI, otherwise 11pt ROS of systems reviewed and unremarkable PE: GEN: 47yoM, appears stated age. Appears unkept. No acute distress. Alert and oriented x 3. Speech is tangential. HEENT: Normocephalic, atraumatic. Pupils are equal, round, and reactive to light. Extraocular movements are intact. No nystagmus appreciated. Sclera are nonicteric. Conjunctiva without injection. Nose midline. Nasal turbinates without bogginess. EACs both patent BL. TMs both visualized and grier with good cone of light, no bulging or erythema. No facial asymmetry. Moist mucous membranes. Dentition fair. Pharynx pink and moist, no cobblestoning. Neck supp le, trachea midline. No lymphadenopathy or thyromegaly appreciated. CHEST: Regular rate and rhythm, +S1, +S2 LUNGS: Clear to auscultation bilaterally. No wheezes, rales, or rhonchi. Breathing appears symmetric and easy. Patient is speaking in full sentences. No accessory muscle use. ABD: Round, soft, non-tender, non-distended. +Bowel sounds throughout. No rebound or guarding. No costovertebral angle tenderness. EXT: Pulses 2+ bilaterally dorsalis pedis and radial. No lower extremity edema appreciated. SKIN: Antonito, dry, warm. Capillary refill <2sec. No rashes. NEURO: Alert and oriented x 3. Cranial nerves III-XII are intact. No focal deficits appreciated. EKG: SINUS RHYTHM NONSPECIFIC T-WAVE ABNORMALITY MINIMAL CHANGE SINCE 01/19/16 Electronically Signed On 12-28-2017 19:39:10 EDT by Fatoumata Hardy A&P: 47yoM admitted to [facility] for bipolar disorder. 1. Psych. Plan per Psychiatry. EKG on file. 2. Hypertension. Continue Lisinopril 5 mg daily. Monitor. 3. Hypothyroidism. Continue Synthroid 100mcg daily. TSH is noted within normal limits. 4. Follow up with PCP on discharge. Dr Peterson. 5. Peripheral neuropathy. Continue gabapentin 600 mg by mouth twice a day. 6. Hyperlipidemia. Continue Lipitor 20 mg daily. 7. NIDDM. CC diet. Patient is currently on Invokana, Trulicity, Jardiance as outpt. Continue sliding scale insulin before meals at bedtime unless patient is able to bring in his regimen from home. Blood sugar noted to be 157 this a.m. 8. Poor dentition/dental caries. No issues at this time. 9. Obesity. BMI 33.7. Complicates care. TSH WNL. 10. Abnormal LFTs. Appears to be at baseline. Monitor CMP. Hepatitis profile neg 02/03. Right upper quadrant [id number], Hepatic steatosis. 11. Staff member Shilo present throughout exam. Vital Signs Vital Signs Date Time Temp Pulse Resp B/P (MAP) Pulse Ox O2 Delivery O2 Flow Rate FiO2 05/13/18 08:44 139/92 05/13/18 07:00 98.6 84 18 05/12/18 19:45 96 Room Air Laboratory Data Labs 24H Laboratory Tests 2 05/12/18 15:40: Nucleated Red Blood Cells % (auto) 0.0 05/12/18 15:41: Anion Gap 10, Glomerular Filtration Rate > 60.0, Calcium Level 8.3L, Aspartate Amino Transf (AST/SGOT) 38H, Alanine Aminotransferase (ALT/SGPT) 78, Alkaline Phosphatase 125H, Total Bilirubin 0.6, Direct Bilirubin 0.2, Total Protein 7.3, Albumin 4.0, Albumin/Globulin Ratio 1.21, Thyroid Stimulating Hormone (TSH) 1.750, Salicylates Level < 1.7L, Urine Amphetamines Screen NEGATIVE, Urine Benzodiazepines Screen NEGATIVE, Urine Opiates Screen NEGATIVE, Urine Methadone Screen NEGATIVE, Acetaminophen Level < 2.0L, Urine Barbiturates Screen NEGATIVE, Urine Phencyclidine Screen NEGATIVE, Urine Cocaine Metabolite Screen NEGATIVE, Urine Cannabinoids Screen NEGATIVE, Ethyl Alcohol Level < 0.003 05/12/18 16:00: Urine Color (GABBY) YELLOW, Urine Appearance (GABBY) CLOUDYH, Urine pH (GABBY) 5.0, Urine Specific [place] (GABBY) 1.030, Urine Protein NEGATIVE, Bedside Urine Glucose (UA) NEGATIVE, Bedside Urine Ketones (LAB) NEGATIVE, Bedside Urine Blood NEGATIVE, Bedside Urine Nitrite (LAB) NEGATIVE, Bedside Urine Bilirubin (LAB) NEGATIVE, Bedside Urine Urobilinogen (LAB) NORMAL, Bedside Urine Leukocyte Esterase (L NEGATIVE, Urine Sediment Examination PERFORMED, Urine RBC NONE SEEN, Urine WBC 0-1, Urine Squamous Epithelial Cells NONE SEEN, Urine Amorphous Sediment LARGE AMOUNTH, Urine Bacteria NONE SEEN, Urine Hyaline Casts NONE SEEN, Urine Mucus SMALL AMOUNTH 05/12/18 20:41: Bedside Glucose (Misc Panel) 211H 05/13/18 05:51: Bedside Glucose (Misc Panel) 157H CBC/BMP Laboratory Tests 05/12/18 15:40 Red Blood Count 5.45, Mean Corpuscular Volume 81.8, Mean Corpuscular Hemoglobin 27.9, Mean Corpuscular Hemoglobin Concent 34.1, Red Cell Distribution Width 13.2 05/12/18 15:41 Home Medications Scheduled (Trulicity) 0.75 Mg/0.5 Ml Inj, 0.75 MG SC QWEEK WEDNESDAYS (Vraylar) 3 Mg Cap, 3 MG PO DAILY Aripiprazole Monohydrate (Abilify Maintena) 400 Mg Inj, 400 MG IM QMONTH Atorvastatin Calcium (Atorvastatin Calcium) 20 Mg Tab, 20 MG PO QHS Canagliflozin (Invokana) 300 Mg Tab, 300 MG PO DAILY Doxepin HCl (Doxepin HCl) 50 Mg Cap, 50 MG PO QHS Empagliflozin (Jardiance) 10 Mg Tab, 10 MG PO DAILY Fluoxetine HCl (Prozac) 10 Mg Cap, 10 MG PO DAILY Gabapentin (Gabapentin) 600 Mg Tab, 600 MG PO BID Levothyroxine Sodium (Synthroid) 100 Mcg Tab, 100 MCG PO DAILY Lisinopril (Lisinopril) 5 Mg Tab, 5 MG PO DAILY Mirtazapine (Mirtazapine) 7.5 Mg Tab, 7.5 MG PO QHS Olanzapine (Olanzapine) 10 Mg Tab, 10 MG PO QHS Oxcarbazepine (Oxcarbazepine) 300 Mg Tab, 600 MG PO QHS Allergies Coded Allergies: Penicillins (Verified Allergy, Unknown, 07/19/12) Penicillins Cross Reactors (Verified Allergy, Unknown, 07/19/12) Kellen Carrasco May 13, 2018 10:53
--- NOTE | 2018-05-13 13:09 | MHHPEPDOC ---
[facility] History & Physical History and Physical DATE OF ADMISSION: May 12, 2018 at 18:01 Chief Complaint "I was really anxious, I had not been taking my meds. right" History of Present Illness HISTORY OF THE PRESENT ILLNESS: as per ED report: "Pt states he had a friend drive him to the ED due to increased depression & SI with a plan to OD. Pt states that last night he had SI with a plan to OD. He reports increasing depression over the past few days. He stopped taking his meds because he was having side effects. Pt's main stressor is his living situation. He lives with his boss & does not think it is a good living environment for him. Pt reports poor sleep, poor appetite, poor motivation." Psychiatric Review of Systems Depression (2 or more weeks): Low energy levels, he was having trouble sleeping for the last couple of nights but he slept well last night. His appetite is good. He feels helpless, hopeless and worthless (sometimes). sometimes he has regrets, guilty feelings, remorse. anhedonia (he used to read but he can't do it now), poor concentration. Sometimes he has suicidal thoughts and now he has fleeting, on and off suicidal thoughts Winsome (4 or more days of): irritable/elevated mood, expansive mood ( 4-5 weeks ago) , talkative, pressured, flight of ideas. Has engaged in risky behavior, has had unprotected sex with his ex girlfriend, has gambled (6 months ago) Psychosis: sometimes he feels paranoid PTSD: denies Anxiety: He worries about the outcome of his illness. Anxiety/ 6 months or more of: difficulty concentrating, sleep disturbance Past Psychiatric History Previous Psychiatric Diagnosis: bipolar disorder Previous Psychiatric Admissions: multiple psychiatric admission to [facility] (last 01/2017), [facility] [place], [facility], and [facility]. the last time he was at [facility] was in February last year. He was at [facility] time Suicide Attempts: once at 23yrs old Psychiatric Follow-up: Dr. Kong, he saw him for a long time, he had a heart attack and a therapist in [facility]. July Sylvain (psychiatrist, he saw her to [facility] ago and talked to her on the phone about two weeks ago because he didn't get a ride, he called her.) His next appointment is for 05/20/2018 Psychiatric medications: Prozac, Paxil, Zoloft, Tegretol, Zyprexa, risperidone, Risperdal Consta, Abilify, Invega Sustenna, Depakote. he has taken Doxepine. At [facility] he received the injectable form of Abilify and he thinks that he became manic after he received the injection. Past Medical History Medical Problems DMII, HTN, CAD Head Injury: yes, he had a couple, when he was in school. Once he fell on the snow and he didn't go to school for a couple of days. He was hospitalized for a couple of days, he felt nauseous, he was unconscious. Seizures: No but he says he is not sure if he takes Carbamazepine for seizures or for a mood disorder, because when he goes to sleep, his head "shakes" for about 3-4x Hospitalizations: Yes Surgeries: tonsillectomy Family Medical/Psychiatric HX Medical Problems Maternal mother and maternal grandmother have bipolar disorder His mother takes Moro. Maternal aunt committed suicide when the patient was 5-years old. His uncle used to do drugs and he went to see the place where she committed suicide and he said that it seemed as if someone had helped her. This uncle already . There is no alcohol or drug abuse in the family. Psychiatric Disorders: Yes Addiction: No Suicide Attempts/Completions: Yes Addiction History he has not had a drinkin three years Social History Childhood: born and raised [place], 2 parent home, 4 sibling, twin sister. It was good, his parents were together. He got along with his siblings, they are alive and he has a good relationship with them. Abuse/Trauma: Denies, bullied in high school. When he was [age], did some "inappropriate things to me. I should have fought back and I didn't" Current Living Situation: lives alone in [place] Education: high school grad, 2 yrs college for biology (had to leave b/c of winsome). he had a mental breakdown when he was in second year, he was hospitalized at [facility] at that time. 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 He has not worked for the last three weeks. Social Support: mother Legal: denies Marital: single, no kids. He doesn't have a girlfriend now, he was in previous relationships before. Mental Status Examination Mental Status Examination General Appearance: unkempt, disheveled, appears stated age, hospital scubs/clothing Build: overweight Demeanor: anxious, cooperative, very fidgety Eye Contact: poor, he has talked to me with his eyes closed and when he opens them, he looks towards the sides. Activity: restless, fidgety Behavior: cooperative, restless Speech: rapid, pressured, spontaneous, normal volume Mood: elevated, hypomanic Mood good Affect: full, appropriate, congruent, other (hypomanic) Thought Process: tangential, loose, associative, flight of ideas, racing Thought Content (Delusions): denies SI, HI, AVH. Denies thought delusions Thought Content (Other): denies Thought Content (Aggressive): none reported Perception (Hallucinations): none reported Perception (Other): none reported Cognition (Impairment of): attention/concentration Cognition(Intelligence Est.): average Oriented: Awake, Alert, Oriented times three Insight: fair Judgment: Fair Psychosis: Associations Diagnoses 1. Bipolar disorder, mixed episode Assement/Plan Assessment Pt is depressed but he also has some manic symptoms, he is anxious, preoccupied. He needs to be started on his medications. Initial Treatment Plan 1. Patient was admitted on a 9.39 status. 2. Complete history was obtained. 3. With patients permission, family will be contacted and database will be expanded. 4. Patients medication regimen will be reviewed and changed accordingly. 5. Patient will be provided with protected environment. 6. Patient will be treated with individual, group, and milieu therapies. 7. Patient will receive supportive psych-education. 8. Discharge planning will commence immediately. 9. Outpatient follow-up treatment will be strongly recommended. 10. The initial treatment plan will focus initially on: * Depression. * Winsome * Anxiety * Risk for suicide. * Substance abuse. 11. Resume outpatient medications ESTIMATED LENGTH OF STAY: 5-7 DAYS. TIME SPENT COUNSELING AND COORDINATING INITIAL CARE: 60 minutes. Vital Signs Vital Signs Date Time Temp Pulse Resp B/P (MAP) Pulse Ox O2 Delivery O2 Flow Rate FiO2 05/13/18 08:44 139/92 05/13/18 07:00 98.6 84 18 05/12/18 19:45 96 Room Air Laboratory Data 24H Labs Laboratory Tests 2 05/12/18 15:40: Nucleated Red Blood Cells % (auto) 0.0 05/12/18 15:41: Anion Gap 10, Glomerular Filtration Rate > 60.0, Calcium Level 8.3L, Aspartate Amino Transf (AST/SGOT) 38H, Alanine Aminotransferase (ALT/SGPT) 78, Alkaline Phosphatase 125H, Total Bilirubin 0.6, Direct Bilirubin 0.2, Total Protein 7.3, Albumin 4.0, Albumin/Globulin Ratio 1.21, Thyroid Stimulating Hormone (TSH) 1.750, Salicylates Level < 1.7L, Urine Amphetamines Screen NEGATIVE, Urine Benzodiazepines Screen NEGATIVE, Urine Opiates Screen NEGATIVE, Urine Methadone Screen NEGATIVE, Acetaminophen Level < 2.0L, Urine Barbiturates Screen NEGATIVE, Urine Phencyclidine Screen NEGATIVE, Urine Cocaine Metabolite Screen NEGATIVE, Urine Cannabinoids Screen NEGATIVE, Ethyl Alcohol Level < 0.003 05/12/18 16:00: Urine Color (GABBY) YELLOW, Urine Appearance (GABBY) CLOUDYH, Urine pH (GABBY) 5.0, Urine Specific [place] (GABBY) 1.030, Urine Protein NEGATIVE, Bedside Urine Glucose (UA) NEGATIVE, Bedside Urine Ketones (LAB) NEGATIVE, Bedside Urine Blood NEGATIVE, Bedside Urine Nitrite (LAB) NEGATIVE, Bedside Urine Bilirubin (LAB) NEGATIVE, Bedside Urine Urobilinogen (LAB) NORMAL, Bedside Urine Leukocyte Esterase (L NEGATIVE, Urine Sediment Examination PERFORMED, Urine RBC NONE SEEN, Urine WBC 0-1, Urine Squamous Epithelial Cells NONE SEEN, Urine Amorphous Sediment LARGE AMOUNTH, Urine Bacteria NONE SEEN, Urine Hyaline Casts NONE SEEN, Urine Mucus SMALL AMOUNTH 05/12/18 20:41: Bedside Glucose (Misc Panel) 211H 05/13/18 05:51: Bedside Glucose (Misc Panel) 157H 05/13/18 11:55: Bedside Glucose (Misc Panel) 274H CBC/BMP Laboratory Tests 05/12/18 15:40 Red Blood Count 5.45, Mean Corpuscular Volume 81.8, Mean Corpuscular Hemoglobin 27.9, Mean Corpuscular Hemoglobin Concent 34.1, Red Cell Distribution Width 13.2 05/12/18 15:41 FSBS Laboratory Tests Test 05/12/18 20:41 05/13/18 05:51 05/13/18 11:55 Range/Units Bedside Glucose (Misc Panel) 211 157 274 70-105 MG/DL Medications Scheduled (Trulicity) 0.75 Mg/0.5 Ml Inj, 0.75 MG SC QWEEK, (Reported) WEDNESDAYS (Vraylar) 3 Mg Cap, 3 MG PO DAILY, (Reported) Aripiprazole Monohydrate (Abilify Maintena) 400 Mg Inj, 400 MG IM QMONTH, (Reported) Atorvastatin Calcium (Atorvastatin Calcium) 20 Mg Tab, 20 MG PO QHS, (Reported) Canagliflozin (Invokana) 300 Mg Tab, 300 MG PO DAILY, (Reported) Doxepin HCl (Doxepin HCl) 50 Mg Cap, 50 MG PO QHS, (Reported) Empagliflozin (Jardiance) 10 Mg Tab, 10 MG PO DAILY, (Reported) Fluoxetine HCl (Prozac) 10 Mg Cap, 10 MG PO DAILY, (Reported) Gabapentin (Gabapentin) 600 Mg Tab, 600 MG PO BID, (Reported) Levothyroxine Sodium (Synthroid) 100 Mcg Tab, 100 MCG PO DAILY, (Reported) Lisinopril (Lisinopril) 5 Mg Tab, 5 MG PO DAILY, (Reported) Mirtazapine (Mirtazapine) 7.5 Mg Tab, 7.5 MG PO QHS, (Reported) Olanzapine (Olanzapine) 10 Mg Tab, 10 MG PO QHS, (Reported) Oxcarbazepine (Oxcarbazepine) 300 Mg Tab, 600 MG PO QHS, (Reported) Allergies Coded Allergies: Penicillins (Verified Allergy, Unknown, 07/19/12) Penicillins Cross Reactors (Verified Allergy, Unknown, 07/19/12) YAAKOV BAILEY MD May 13, 2018 13:09
[2018-05-13] MEDS: BENZTROPINE 1 MG TAB PO SCH ×2 (13:46→20:33)
[2018-05-13] MEDS: metFORMIN (GLUCOPHAGE) 1000 MG TABLET PO SCH (17:07)
[2018-05-13 18:13] VITALS: BP 140/90
[2018-05-13] MEDS: OLANZapine 10 MG TAB PO SCH (20:33)
[2018-05-13] MEDS: DOXEPIN 25 MG CAP PO SCH (20:33)
[2018-05-13] MEDS: MIRTAZAPINE 7.5MG PER 1/2 TABLET PO SCH (20:33)
[2018-05-13] MEDS: ATORVASTATIN 20 MG TAB PO SCH (20:33)
[2018-05-13] MEDS: OXcarbazepine 300 MG TAB PO SCH (20:33)
[2018-05-14] MEDS: LEVOTHYROXINE 100MCG TABLET (0.1MG) PO SCH (06:09)
[2018-05-14 06:10] VITALS: BP 120/76
[2018-05-14] MEDS: HumaLOG INSULIN (NovoLOG) PER UNIT SC SCH ×4 (06:29→21:00)
[2018-05-14] MEDS: metFORMIN (GLUCOPHAGE) 1000 MG TABLET PO SCH ×2 (07:33→17:02)
[2018-05-14 07:57] LABS: HEMATOCRIT 48.2 % (42.0-52.0); HEMOGLOBIN 15.8 g/dl (13.5-17.5); MEAN CORPUSCULAR HEMOGLOBIN 27.4 pg (27.0-33.0); MEAN CORPUSCULAR HGB CONC 32.8 g/dl (32.0-36.5); MEAN CORPUSCULAR VOLUME 83.7 fl (80.0-96.0); PLATELET COUNT, AUTOMATED 252 10^3/uL (150-450); RED BLOOD COUNT 5.76 10^6/uL (4.30-6.10); WHITE BLOOD COUNT 8.7 10^3/uL (4.0-10.0)
[2018-05-14] MEDS: FLUoxetine 10 MG CAP PO SCH (08:09)
[2018-05-14] MEDS: BENZTROPINE 1 MG TAB PO SCH ×2 (08:09→21:13)
[2018-05-14] MEDS: GABAPENTIN 300 MG CAP PO SCH ×2 (08:09→21:13)
[2018-05-14] MEDS: LISINOPRIL 5 MG TAB PO SCH (08:10)
[2018-05-14 08:19] LABS: ALBUMIN 3.5 GM/DL (3.2-5.2); ALT/SGPT 70 U/L (12-78); BILIRUBIN,TOTAL 0.7 MG/DL (0.2-1.0); BLOOD UREA NITROGEN 13 MG/DL (7-18); CALCIUM LEVEL 8.2 MG/DL (8.5-10.1); CARBON DIOXIDE LEVEL 30 MEQ/L (21-32); CHLORIDE LEVEL 104 MEQ/L (98-107); CREATININE FOR GFR 0.81 MG/DL (0.70-1.30); GLOMERULAR FILTRATION RATE > 60.0 (>60); GLUCOSE, FASTING 145 MG/DL (70-100); POTASSIUM SERUM 4.2 MEQ/L (3.5-5.1); SODIUM LEVEL 141 MEQ/L (136-145); TOTAL PROTEIN 6.7 GM/DL (6.4-8.2)
[2018-05-14 18:00] VITALS: BP 133/86
--- NOTE | 2018-05-14 21:06 | MHIPNPDOC ---
[facility] Progress Note Progress Note DATE OF SERVICE: 05/14/18 HISTORY: Chief Complaint "I was really anxious, I had not been taking my meds. right" History of Present Illness HISTORY OF THE PRESENT ILLNESS: as per ED report: "Pt states he had a friend drive him to the ED due to increased depression & SI with a plan to OD. Pt states that last night he had SI with a plan to OD. He reports increasing depre ssion over the past few days. He stopped taking his meds because he was having side effects. Pt's main stressor is his living situation. He lives with his boss & does not think it is a good living environment for him. Pt reports poor sleep, poor appetite, poor motivation. VITAL SIGNS: See below. NEW TEST RESULTS: See below CURRENT MEDICATIONS: See below. MENTAL STATUS EXAMINATION: Patient is a 47-year old male, who is alert, disheveled, unkempt, dressed in hospital clothes. Speech: Is rapid, fluent, spontaneous, normal volume and normal tone. Language skills are fair. Thought processes including: A little circumstantial. Thought content: Cognitive distortions, depressive and anxious thoughts. Denies homicidal ideation, reports suicidal thoughts, fleeting, passive. Denies auditory and visual hallucinations and denies thought delusions Description of associations: Associative. Description of abnormal or psychotic thoughts: And denies auditory and visual hallucinations and denies. Judgment: Thought delusions. Insight: Poor. Orientation: Poor. Recent and remote memory: Limited. Attention span and concentration: Fair. Fund of knowledge: Average. Mood: Anxious and depressed. Affect: Congruent with mood. DIAGNOSES: 1. Bipolar disorder, mixed 2. Generalized anxiety disorder. ASSESSMENT: Patient looks disorganized, very depressed and anxious. Will increase fluoxetine to 20 mg per day and Zyprexa to 10 mg by mouth twice a day MANAGEMENT PLAN: Zyprexa 10 mg by mouth twice a day and fluoxetine 20 mg by mouth daily. Encourage him to attend groups, he needs to learn coping skills and to interact with staff and peers. TIME SPENT: 20 minutes. Vital Signs Vital Signs Date Time Temp Pulse Resp B/P (MAP) Pulse Ox O2 Delivery O2 Flow Rate FiO2 05/14/18 18:00 98.2 89 18 133/86 (102) 05/12/18 19:45 96 Room Air Laboratory Data 24H Labs Laboratory Tests 2 05/14/18 06:25: Bedside Glucose (Misc Panel) 155H 05/14/18 07:39: Nucleated Red Blood Cells % (auto) 0.0, Anion Gap 7L, Glomerular Filtration Rate > 60.0, Blood Urea Nitrogen 13, Creatinine 0.81, Sodium Level 141, Potassium Level 4.2, Chloride Level 104, Carbon Dioxide Level 30, Calcium Level 8.2L, Aspartate Amino Transf (AST/SGOT) 37, Alanine Aminotransferase (ALT/SGPT) 70, Alkaline Phosphatase 122H, Total Bilirubin 0.7, Total Protein 6.7, Albumin 3.5, Albumin/Globulin Ratio 1.09 05/14/18 12:03: Bedside Glucose (Misc Panel) 170H 05/14/18 16:59: Bedside Glucose (Misc Panel) 157H CBC/BMP Laboratory Tests 05/14/18 07:39 Red Blood Count 5.76, Mean Corpuscular Volume 83.7, Mean Corpuscular Hemoglobin 27.4, Mean Corpuscular Hemoglobin Concent 32.8, Red Cell Distribution Width 13.5, Calcium Level 8.2 L, Aspartate Amino Transf (AST/SGOT) 37, Alanine Amino transferase (ALT/SGPT) 70, Alkaline Phosphatase 122 H, Total Bilirubin 0.7, Total Protein 6.7, Albumin 3.5 Current Medications Current Medications Acetaminophen (Tylenol Tab) 650 mg Q6HP PRN PO HEADACHE or DISCOMFORT; Start 05/12/18 at 18:15 Al Hydrox/Mg Hydrox/Simethicone (Mylanta) 30 ml Q4HP PRN PO HEARTBURN/INDIGESTION; Start 05/12/18 at 18:15 Atorvastatin Calcium (Lipitor) 20 mg QHS PO Last administered on 05/13/18at 20:33; Start 05/12/18 at 21:00 Benztropine Mesylate (Cogentin) 1 mg BID PO Last administered on 05/14/18at 08:09; Start 05/13/18 at 09:00 Dextrose (Dextrose 50%) 25 ml ASDIRECTED PRN IV SEE LABEL COMMENTS; Start 05/12/18 at 20:30 Doxepin HCl (SINEquan) 50 mg QHS PO Last administered on 05/13/18at 20:33; Start 05/12/18 at 21:00 Fluoxetine HCl (PROzac) 10 mg DAILY PO Last administered on 05/14/18at 08:09; Start 05/13/18 at 09:00 Gabapentin (Neurontin) 600 mg BID PO Last administered on 05/14/18at 08:09; Start 05/12/18 at 21:00 Glucagon (Glucagon) 1 mg ASDIRECTED PRN SC SEE LABEL COMMENTS; Start 05/12/18 at 20:30 Glucose (Glucose) 16 GM ASDIRECTED PRN PO SEE LABEL COMMENTS; Start 05/12/18 at 20:30 Home Med (Med Rec Complete!) ASDIRECTED XX ; Start 05/12/18 at 17:45; Stop 05/12/18 at 17:47; Status DC Insulin Human Lispro (HumaLOG INSULIN) See Protocol Table AC SC Last administered on 05/14/18at 17:02; Start 05/13/18 at 07:30 Insulin Human Lispro (HumaLOG INSULIN) See Protocol Table QHS SC ; Start 05/12/18 at 21:00 Levothyroxine Sodium (Synthroid) 100 mcg DAILY@0600 PO Last administered on 05/14/18at 06:09; Start 05/13/18 at 06:00 Lisinopril (Prinivil) 5 mg DAILY PO Last administered on 05/14/18at 08:10; Star t 05/12/18 at 20:30 Magnesium Hydroxide (Milk Of Magnesia) 30 ml DAILYPRN PRN PO CONSTIPATION; Start 05/12/18 at 18:15 Metformin HCl (Glucophage) 1,000 mg BID@08,18 PO Last administered on 05/14/18at 17:02; Start 05/13/18 at 18:00 Mirtazapine (Remeron) 7.5 mg QHS PO Last administered on 05/13/18at 20:33; Start 05/12/18 at 21:00 Olanzapine (ZyPREXA) 10 mg QHS PO Last administered on 05/13/18at 20:33; Start 05/12/18 at 21:00 Oxcarbazepine (Trileptal) 600 mg QHS PO Last administered on 05/13/18at 20:33; Start 05/12/18 at 21:00 Trazodone HCl (Desyrel) 50 mg QHSP PRN PO INSOMNIA; Start 05/12/18 at 18:15 Allergies Coded Allergies: Penicillins (Verified Allergy, Unknown, 4/2/13) Penicillins Cross Reactors (Verified Allergy, Unknown, 07/19/12) YAAKOV BAILEY MD May 14, 2018 21:06
[2018-05-14] MEDS: DOXEPIN 25 MG CAP PO SCH (21:13)
[2018-05-14] MEDS: OXcarbazepine 300 MG TAB PO SCH (21:13)
[2018-05-14] MEDS: ATORVASTATIN 20 MG TAB PO SCH (21:13)
[2018-05-14] MEDS: MIRTAZAPINE 7.5MG PER 1/2 TABLET PO SCH (21:13)
[2018-05-15] MEDS: LEVOTHYROXINE 100MCG TABLET (0.1MG) PO SCH (06:17)
[2018-05-15 06:27] VITALS: BP 146/93
[2018-05-15] MEDS: HumaLOG INSULIN (NovoLOG) PER UNIT SC SCH ×4 (06:47→20:32)
[2018-05-15] MEDS: metFORMIN (GLUCOPHAGE) 1000 MG TABLET PO SCH ×2 (08:26→17:05)
[2018-05-15] MEDS: GABAPENTIN 300 MG CAP PO SCH ×2 (08:26→20:31)
[2018-05-15] MEDS: BENZTROPINE 1 MG TAB PO SCH ×3 (08:26→20:32)
[2018-05-15] MEDS: LISINOPRIL 5 MG TAB PO SCH (08:26)
[2018-05-15] MEDS ORDERED: OLANZapine 10 MG TAB PO SCH (09:00)
[2018-05-15] MEDS ORDERED: FLUoxetine 20 MG CAP PO SCH (09:00)
--- NOTE | 2018-05-15 14:38 | MHIPNPDOC ---
[facility] Progress Note Progress Note DATE OF SERVICE: 05/15/18 HISTORY: Chief Complaint "I was really anxious, I had not been taking my meds. right" History of Present Illness HISTORY OF THE PRESENT ILLNESS: as per ED report: "Pt states he had a friend drive him to the ED due to increased depression & SI with a plan to OD. Pt states that last night he had SI with a plan to OD. He reports increasing depression over the past few days. He stopped taking his meds because he was having side effects. Pt's main stressor is his living situation. He lives with his boss & does not think it is a good living environment for him. Pt reports poor sleep, poor appetite, poor motivation. VITAL SIGNS: See below. NEW TEST RESULTS: See below CURRENT MEDICATIONS: See below. MENTAL STATUS EXAMINATION: Patient is a 47-year old male, who is alert, disheveled, unkempt, dressed in hospital clothes with poor eye contact, lip smacking, restless (but less than before) Speech: Is rapid, fluent, spontaneous, normal volume and normal tone. Language skills are fair. Thought processes including: Less circumstantial. Thought content: Cognitive distortions, depressive and anxious thoughts. Denies homicidal ideation, reports suicidal thoughts, fleeting, passive. Denies auditory and visual hallucinations and denies thought delusions Description of associations: Associative. Description of abnormal or psychotic thoughts: denies auditory and visual hallucinations and denies thought delusions Judgment: poor Insight: Poor. Orientation: Poor. Recent and remote memory: Limited. Attention span and concentration: Fair. Fund of knowledge: Average. Mood: Anxious and depressed. Affect: Congruent with mood. DIAGNOSES: 1. Bipolar disorder, mixed 2. Generalized anxiety disorder. ASSESSMENT: Patient says that he had Abilify Mantenna in March but he is not sure if it made him more "hyper". According to his records he should be taking the other 400 mgs IM today, will tryvto verify with the pharmacy if he had any negative side effects. He had akathisia, he was very restless and had lip smacking when he came to the hospital, he has been taking Cogentin 1 mg Po BID but I will increase it to 1 mg PO TID. I'm going to discontinue fluoxetine and will start him on Zoloft 25 mgs. I'm discontinuing Doxepine and starting him on Remeron 30 mgs PO QHS. Patient says that he was having a good response to Invega sustenna but it doesn't seem so because he was admitted back to back, december, january, february and in March apparently he was at [facility]. He admits to be non compliant with medications and reports that he was able to stay away from the hospital when he tood Risperdal a long time ago and used Risperdal consta. MANAGEMENT PLAN: -Discontinue Zyprexa 10 mgs Po BID -Start Risperdal 1 mg PO TID -discontinue Doxepine 50 mgs PO QHS -Start Remeron 30 mgs PO QHS -Discontinue Fluoxetine 20 mgs PO daily -Start Zoloft 25 mgs PO daily -Discontinue cogentin 1 mg PO BID -Start Cogentin 1 mg PO TID TIME SPENT: 30 minutes. Vital Signs Vital Signs Date Time Temp Pulse Resp B/P (MAP) Pulse Ox O2 Delivery O2 Flow Rate FiO2 05/15/18 08:26 134/88 05/15/18 06:27 97.0 75 16 Room Air 05/12/18 19:45 96 Laboratory Data 24H Labs Laboratory Tests 2 05/14/18 16:59: Bedside Glucose (Misc Panel) 157H 05/14/18 21:10: Bedside Glucose (Misc Panel) 113H 05/15/18 06:44: Bedside Glucose (Misc Panel) 145H 05/15/18 11:55: Bedside Glucose (Misc Panel) 112H Current Medications Current Medications Acetaminophen (Tylenol Tab) 650 mg Q6HP PRN PO HEADACHE or DISCOMFORT; Start 05/12/18 at 18:15 Al Hydrox/Mg Hydrox/Simethicone (Mylanta) 30 ml Q4HP PRN PO HEARTBURN/INDIGE STION; Start 05/12/18 at 18:15 Atorvastatin Calcium (Lipitor) 20 mg QHS PO Last administered on 05/14/18at 21:13; Start 05/12/18 at 21:00 Benztropine Mesylate (Cogentin) 1 mg BID PO Last administered on 05/15/18at 08:26; Start 05/13/18 at 09:00 Dextrose (Dextrose 50%) 25 ml ASDIRECTED PRN IV SEE LABEL COMMENTS; Start 05/12/18 at 20:30 Doxepin HCl (SINEquan) 50 mg QHS PO Last administered on 05/14/18at 21:13; Start 05/12/18 at 21:00 Fluoxetine HCl (PROzac) 10 mg DAILY PO Last administered on 05/14/18at 08:09; Start 05/13/18 at 09:00; Stop 05/14/18 at 21:05; Status DC Fluoxetine HCl (PROzac) 20 mg DAILY PO Last administered on 05/15/18at 08:26; Start 05/15/18 at 09:00 Gabapentin (Neurontin) 600 mg BID PO Last administered on 05/15/18at 08:26; Start 05/12/18 at 21:00 Glucagon (Glucagon) 1 mg ASDIRECTED PRN SC SEE LABEL COMMENTS; Start 05/12/18 at 20:30 Glucose (Glucose) 16 GM ASDIRECTED PRN PO SEE LABEL COMMENTS; Start 05/12/18 at 20:30 Home Med (Med Rec Complete!) ASDIRECTED XX ; Start 05/12/18 at 17:45; Stop 05/12/18 at 17:47; Status DC Insulin Human Lispro (HumaLOG INSULIN) See Protocol Table AC SC Last administered on 05/15/18at 11:57; Start 05/13/18 at 07:30 Insulin Human Lispro (HumaLOG INSULIN) See Protocol Table QHS SC ; Start 05/12/18 at 21:00 Levothyroxine Sodium (Synthroid) 100 mcg DAILY@0600 PO Last administered on 05/15/18at 06:17; Start 05/13/18 at 06:00 Lisinopril (Prinivil) 5 mg DAILY PO Last administered on 05/15/18at 08:26; Start 05/12/18 at 20:30 Magnesium Hydroxide (Milk Of Magnesia) 30 ml DAILYPRN PRN PO CONSTIPATION; Start 05/12/18 at 18:15 Metformin HCl (Glucophage) 1,000 mg BID@08,18 PO Last administered on 05/15/18at 08:26; Start 05/13/18 at 18:00 Mirtazapine (Remeron) 7.5 mg QHS PO Last administered on 05/14/18at 21:13; Start 05/12/18 at 21:00 Olanzapine (ZyPREXA) 10 mg BID PO Last administered on 05/15/18at 08:26; Start 05/15/18 at 09:00 Olanzapine (ZyPREXA) 10 mg QHS PO Last administered on 05/13/18at 20:33; Start 05/12/18 at 21:00; Stop 05/14/18 at 21:05; Status DC Oxcarbazepine (Trileptal) 600 mg QHS PO Last administered on 05/14/18at 21:13; Start 05/12/18 at 21:00 Trazodone HCl (Desyrel) 50 mg QHSP PRN PO INSOMNIA; Start 05/12/18 at 18:15 Allergies Coded Allergies: Penicillins (Verified Allergy, Unknown, 07/19/12) Penicillins Cross Reactors (Verified Allergy, Unknown, 07/19/12) YAAKOV BAILEY MD May 15, 2018 13:40
[2018-05-15] MEDS: risperiDONE 1 MG TAB PO SCH ×2 (15:25→20:32)
[2018-05-15 18:00] VITALS: BP 136/84
[2018-05-15] MEDS: ATORVASTATIN 20 MG TAB PO SCH (20:31)
[2018-05-15] MEDS: OXcarbazepine 300 MG TAB PO SCH (20:31)
[2018-05-15] MEDS: MIRTAZAPINE 15 MG TAB PO SCH (20:32)
[2018-05-16] MEDS: LEVOTHYROXINE 100MCG TABLET (0.1MG) PO SCH (06:06)
[2018-05-16] MEDS: HumaLOG INSULIN (NovoLOG) PER UNIT SC SCH ×4 (06:35→21:00)
[2018-05-16 06:37] VITALS: BP 131/82
[2018-05-16] MEDS: metFORMIN (GLUCOPHAGE) 1000 MG TABLET PO SCH ×2 (08:50→17:10)
[2018-05-16] MEDS: risperiDONE 1 MG TAB PO SCH ×3 (08:54→21:19)
[2018-05-16] MEDS: SERTRALINE HCL 25 MG TABLET PO SCH (08:54)
[2018-05-16] MEDS: BENZTROPINE 1 MG TAB PO SCH ×3 (08:54→21:19)
[2018-05-16] MEDS: LISINOPRIL 5 MG TAB PO SCH (08:55)
[2018-05-16] MEDS: GABAPENTIN 300 MG CAP PO SCH ×2 (08:55→21:19)
--- NOTE | 2018-05-16 10:53 | MHIPNPDOC ---
[facility] Progress Note Progress Note DATE OF SERVICE: 05/16/18 HISTORY OF THE PRESENT ILLNESS: as per ED report: "Pt states he had a friend drive him to the ED due to incr eased depression & SI with a plan to OD. Pt states that last night he had SI with a plan to OD. He reports increasing depression over the past few days. He stopped taking his meds because he was having side effects. Pt's main stressor is his living situation. He lives with his boss & does not think it is a good living environment for him. Pt reports poor sleep, poor appetite, poor motivation. VITAL SIGNS: See below. NEW TEST RESULTS: See below CURRENT MEDICATIONS: See below. MENTAL STATUS EXAMINATION: Patient is a 47-year old male, who is alert, disheveled, unkempt, dressed in hospital clothes with poor eye contact, barely appreciable lip smacking. Speech: Is rapid, fluent, spontaneous, normal volume and normal tone. Language skills are fair. Thought processes including: Less circumstantial. Thought content: depressive and anxious thoughts. Denies homicidal ideation, reports suicidal thoughts, fleeting, passive. Denies auditory and visual hallucinations and denies thought delusions Description of associations: Associative. Description of abnormal or psychotic thoughts: denies auditory and visual hallucinations and denies thought delusions Judgment: poor Insight: Poor. Orientation: Poor. Recent and remote memory: Limited. Attention span and concentration: Fair. Fund of knowledge: Average. Mood: Anxious and depressed. Affect: Flat, constricted, Congruent with mood. DIAGNOSES: 1. Bipolar disorder, mixed 2. Generalized anxiety disorder. ASSESSMENT: Patient was interviewed in his room. He states that his depression and anxiety are stable, neither improving nor worsening since his admission. He denies thoughts of harming himself or others, though I suspect he is not being entirely truthful. He has attended groups though he denies any benefit. He denies SI, HI or A/V hallucinations. Patient appeared to be annoyed during the interview. He shared that he felt safe on the unit and would contract for safety. MANAGEMENT PLAN: Continue Risperdal 1 mg PO TID, Remeron 30 mg PO QHS, Zoloft 25 mg PO daily and Cogentin 1 mg PO TID. TIME SPENT: 15 minutes. Vital Signs Vital Signs Date Time Temp Pulse Resp B/P (MAP) Pulse Ox O2 Delivery O2 Flow Rate FiO2 05/16/18 08:55 131/82 05/16/18 06:37 97.2 73 16 05/15/18 18:00 Room Air 05/12/18 19:45 96 Laboratory Data 24H Labs Laboratory Tests 2 05/15/18 11:55: Bedside Glucose (Misc Panel) 112H 05/15/18 17:02: Bedside Glucose (Misc Panel) 169H 05/15/18 20:28: Bedside Glucose (Misc Panel) 135H 05/16/18 06:11: Bedside Glucose (Misc Panel) 134H Current Medications Current Medications Acetaminophen (Tylenol Tab) 650 mg Q6HP PRN PO HEADACHE or DISCOMFORT; Start 05/12/18 at 18:15 Al Hydrox/Mg Hydrox/Simethicone (Mylanta) 30 ml Q4HP PRN PO HEARTBURN/INDIGESTION; Start 05/12/18 at 18:15 Atorvastatin Calcium (Lipitor) 20 mg QHS PO Last administered on 05/15/18at 20:31; Start 05/12/18 at 21:00 Benztropine Mesylate (Cogentin) 1 mg BID PO Last administered on 05/15/18at 08:26; Start 05/13/18 at 09:00; Stop 05/15/18 at 14:22; Status DC Benztropine Mesylate (Cogentin) 1 mg TID PO Last administered on 05/16/18at 08:54; Start 05/15/18 at 16:00 Dextrose (Dextrose 50%) 25 ml ASDIRECTED PRN IV SEE LABEL COMMENTS; Start 05/12/18 at 20:30 Doxepin HCl (SINEquan) 50 mg QHS PO Last administered on 05/14/18at 21:13; Start 05/12/18 at 21:00; Stop 05/15/18 at 14:11; Status DC Fluoxetine HCl (PROzac) 10 mg DAILY PO Last administered on 05/14/18at 08:09; Start 05/13/18 at 09:00; Stop 05/14/18 at 21:05; Status DC Fluoxetine HCl (PROzac) 20 mg DAILY PO Last administered on 05/15/18at 08:26; Start 05/15/18 at 09:00; Stop 05/15/18 at 14:08; Status DC Gabapentin (Neurontin) 600 mg BID PO Last administered on 05/16/18at 08:55; Start 05/12/18 at 21:00 Glucagon (Glucagon) 1 mg ASDIRECTED PRN SC SEE LABEL COMMENTS; Start 05/12/18 at 20:30 Glucose (Glucose) 16 GM ASDIRECTED PRN PO SEE LABEL COMMENTS; Start 05/12/18 at 20:30 Home Med (Med Rec Complete!) ASDIRECTED XX ; Start 05/12/18 at 17:45; Stop 05/12/18 at 17:47; Status DC Insulin Human Lispro (HumaLOG INSULIN) See Protocol Table AC SC Last administered on 05/16/18at 06:35; Start 05/13/18 at 07:30 Insulin Human Lispro (HumaLOG INSULIN) See Protocol Table QHS SC ; Start 05/12/18 at 21:00 Levothyroxine Sodium (Synthroid) 100 mcg DAILY@0600 PO Last administered on 05/16/18at 06:06; Start 05/13/18 at 06:00 Lisinopril (Prinivil) 5 mg DAILY PO Last administered on 05/16/18at 08:55; Start 05/12/18 at 20:30 Magnesium Hydroxide (Milk Of Magnesia) 30 ml DAILYPRN PRN PO CONSTIPATION; Start 05/12/18 at 18:15 Metformin HCl (Glucophage) 1,000 mg BID@08,18 PO Last administered on 05/16/18at 08:50; Start 05/13/18 at 18:00 Mirtazapine (Remeron) 7.5 mg QHS PO Last administered on 05/14/18at 21:13; Start 05/12/18 at 21:00; Stop 05/15/18 at 14:11; Status DC Mirtazapine (Remeron) 30 mg QHS PO Last administered on 05/15/18at 20:32; Start 05/15/18 at 21:00 Olanzapine (ZyPREXA) 10 mg BID PO Last administered on 05/15/18at 08:26; Start 05/15/18 at 09:00; Stop 05/15/18 at 14:31; Status DC Olanzapine (ZyPREXA) 10 mg QHS PO Last administered on 05/13/18at 20:33; Start 05/12/18 at 21:00; Stop 05/14/18 at 21:05; Status DC Oxcarbazepine (Trileptal) 600 mg QHS PO Last administered on 05/15/18at 20:31; Start 05/12/18 at 21:00 Risperidone (RisperDAL) 1 mg TID PO Last administered on 05/16/18at 08:54; Sta rt 05/15/18 at 16:00 Sertraline HCl (Zoloft) 25 mg QAM PO Last administered on 05/16/18at 08:54; Start 05/16/18 at 09:00 Trazodone HCl (Desyrel) 50 mg QHSP PRN PO INSOMNIA; Start 05/12/18 at 18:15 Allergies Coded Allergies: Penicillins (Verified Allergy, Unknown, 07/19/12) Penicillins Cross Reactors (Verified Allergy, Unknown, 07/19/12) GME ATTESTATION GME ATTESTATION My faculty preceptor for this patient encounter was physically present during the encounter and was fully available. All aspects of the patient interview, examination, medical decision making process, and medical care plan development were reviewed and approved by the faculty preceptor. The faculty preceptor is aware and concurs with the plan as stated in the body of this note and will attest to such by his/her cosignature. ESPERANZA MYLES DO May 16, 2018 10:53
[2018-05-16 18:30] VITALS: BP 145/85
[2018-05-16] MEDS: MIRTAZAPINE 15 MG TAB PO SCH (21:19)
[2018-05-16] MEDS: ATORVASTATIN 20 MG TAB PO SCH (21:19)
[2018-05-16] MEDS: OXcarbazepine 300 MG TAB PO SCH (21:20)
[2018-05-17] MEDS: LEVOTHYROXINE 100MCG TABLET (0.1MG) PO SCH (05:53)
[2018-05-17] MEDS: HumaLOG INSULIN (NovoLOG) PER UNIT SC SCH ×4 (06:30→21:53)
[2018-05-17 06:39] VITALS: BP 149/84
[2018-05-17] MEDS: risperiDONE 1 MG TAB PO SCH ×3 (08:48→21:53)
[2018-05-17] MEDS: BENZTROPINE 1 MG TAB PO SCH ×3 (08:48→21:53)
[2018-05-17] MEDS: metFORMIN (GLUCOPHAGE) 1000 MG TABLET PO SCH ×2 (08:48→17:09)
[2018-05-17] MEDS: SERTRALINE HCL 25 MG TABLET PO SCH (08:48)
[2018-05-17] MEDS: LISINOPRIL 5 MG TAB PO SCH (08:48)
[2018-05-17] MEDS: GABAPENTIN 300 MG CAP PO SCH ×2 (08:48→21:53)
--- NOTE | 2018-05-17 11:51 | MHIPNPDOC ---
[facility] Progress Note Progress Note DATE OF SERVICE: 05/17/18 HISTORY OF THE PRESENT ILLNESS: as per ED report: "Pt states he had a friend drive him to the ED due to incr eased depression & SI with a plan to OD. Pt states that last night he had SI with a plan to OD. He reports increasing depression over the past few days. He stopped taking his meds because he was having side effects. Pt's main stressor is his living situation. He lives with his boss & does not think it is a good living environment for him. Pt reports poor sleep, poor appetite, poor motivation. VITAL SIGNS: See below. NEW TEST RESULTS: See below CURRENT MEDICATIONS: See below. MENTAL STATUS EXAMINATION: Patient is a 47-year old male, who is alert, disheveled, unkempt, dressed in hospital clothes with poor eye contact, without lip smacking. Speech: Is rapid, fluent, spontaneous, somewhat pressured, normal volume and normal tone. Language skills are fair. Thought processes including: circumstantial, tangential Thought content: depressive and anxious thoughts. Denies homicidal ideation, reports suicidal thoughts, fleeting, passive. Denies auditory and visual hallucinations and denies thought delusions Description of associations: Associative. Description of abnormal or psychotic thoughts: denies auditory and visual trip lucinations and denies thought delusions Judgment: poor Insight: Poor. Orientation: Poor. Recent and remote memory: Limited. Attention span and concentration: Fair. Fund of knowledge: Average. Mood: Anxious and depressed. Affect: Flat, constricted, Congruent with mood. DIAGNOSES: 1. Bipolar disorder, mixed 2. Generalized anxiety disorder. ASSESSMENT: Patient was interviewed in the hallway outside of his room. He is unable to state if his symptoms have improved since yesterday, though he does feel better than when he originally presented to the unit. His speech remains rapid, shallow and his process is still somewhat tangential. He has been sleeping well. He does not have thoughts of self-harm. He shares that he enjoys groups because it helps to occupy his mind. No evidence of EPS at this time. He contracts for safety on the unit. MANAGEMENT PLAN: Continue Risperdal 1 mg PO TID, Remeron 30 mg PO QHS, Zoloft 25 mg PO daily and Cogentin 1 mg PO TID. TIME SPENT: 15 minutes. Vital Signs Vital Signs Date Time Temp Pulse Resp B/P (MAP) Pulse Ox O2 Delivery O2 Flow Rate FiO2 05/17/18 08:48 148/83 05/17/18 06:39 97.3 84 16 05/15/18 18:00 Room Air 05/12/18 19:45 96 Laboratory Data 24H Labs Laboratory Tests 2 05/16/18 16:39: Bedside Glucose (Misc Panel) 143H 05/16/18 21:19: Bedside Glucose (Misc Panel) 130H 05/17/18 05:56: Bedside Glucose (Misc Panel) 123H Current Medications Current Medications Acetaminophen (Tylenol Tab) 650 mg Q6HP PRN PO HEADACHE or DISCOMFORT; Start 05/12/18 at 18:15 Al Hydrox/Mg Hydrox/Simethicone (Mylanta) 30 ml Q4HP PRN PO HEARTBURN/INDIGESTION; Start 05/12/18 at 18:15 Atorvastatin Calcium (Lipitor) 20 mg QHS PO Last administered on 05/16/18at 21:19; Start 05/12/18 at 21:00 Benztropine Mesylate (Cogentin) 1 mg BID PO Last administered on 05/15/18at 08:26; Start 05/13/18 at 09:00; Stop 05/15/18 at 14:22; Status DC Benztropine Mesylate (Cogentin) 1 mg TID PO Last administered on 05/17/18at 08:48; Start 05/15/18 at 16:00 Dextrose (Dextrose 50%) 25 ml ASDIRECTED PRN IV SEE LABEL COMMENTS; Start 05/12/18 at 20:30 Doxepin HCl (SINEquan) 50 mg QHS PO Last administered on 05/14/18at 21:13; Start 05/12/18 at 21:00; Stop 05/15/18 at 14:11; Status DC Fluoxetine HCl (PROzac) 10 mg DAILY PO Last administered on 05/14/18at 08:09; Start 05/13/18 at 09:00; Stop 05/14/18 at 21:05; Status DC Fluoxetine HCl (PROzac) 20 mg DAILY PO Last administered on 05/15/18at 08:26; Start 05/15/18 at 09:00; Stop 05/15/18 at 14:08; Status DC Gabapentin (Neurontin) 600 mg BID PO Last administered on 05/17/18at 08:48; Start 05/12/18 at 21:00 Glucagon (Glucagon) 1 mg ASDIRECTED PRN SC SEE LABEL COMMENTS; Start 05/12/18 at 20:30 Glucose (Glucose) 16 GM ASDIRECTED PRN PO SEE LABEL COMMENTS; Start 05/12/18 at 20:30 Home Med (Med Rec Complete!) ASDIRECTED XX ; Start 05/12/18 at 17:45; Stop 05/12/18 at 17:47; Status DC Insulin Human Lispro (HumaLOG INSULIN) See Protocol Table AC SC Last admi nistered on 05/17/18at 06:30; Start 05/13/18 at 07:30 Insulin Human Lispro (HumaLOG INSULIN) See Protocol Table QHS SC ; Start at 21:00 Levothyroxine Sodium (Synthroid) 100 mcg DAILY@0600 PO Last administered on 05/17/18at 05:53; Start 05/13/18 at 06:00 Lisinopril (Prinivil) 5 mg DAILY PO Last administered on 05/17/18at 08:48; Start 05/12/18 at 20:30 Magnesium Hydroxide (Milk Of Magnesia) 30 ml DAILYPRN PRN PO CONSTIPATION; Start 05/12/18 at 18:15 Metformin HCl (Glucophage) 1,000 mg BID@08,18 PO Last administered on 05/17/18at 08:48; Start 05/13/18 at 18:00 Mirtazapine (Remeron) 7.5 mg QHS PO Last administered on 05/14/18at 21:13; Start 05/12/18 at 21:00; Stop 05/15/18 at 14:11; Status DC Mirtazapine (Remeron) 30 mg QHS PO Last administered on 05/16/18at 21:19; Start 05/15/18 at 21:00 Olanzapine (ZyPREXA) 10 mg BID PO Last administered on 05/15/18at 08:26; Start 05/15/18 at 09:00; Stop 05/15/18 at 14:31; Status DC Olanzapine (ZyPREXA) 10 mg QHS PO Last administered on 05/13/18at 20:33; Start 05/12/18 at 21:00; Stop 05/14/18 at 21:05; Status DC Oxcarbazepine (Trileptal) 600 mg QHS PO Last administered on 05/16/18at 21:20; Start 05/12/18 at 21:00 Risperidone (RisperDAL) 1 mg TID PO Last administered on 05/17/18at 08:48; Start 05/15/18 at 16:00 Sertraline HCl (Zoloft) 25 mg QAM PO Last administered on 05/17/18at 08:48; Start 05/16/18 at 09:00 Trazodone HCl (Desyrel) 50 mg QHSP PRN PO INSOMNIA Last administered on 05/16/18at 22:43; Start 05/12/18 at 18:15 Allergies Coded Allergies: Penicillins (Verified Allergy, Unknown, 07/19/12) Penicillins Cross Reactors (Verified Allergy, Unknown, 07/19/12) GME ATTESTATION GME ATTESTATION My faculty preceptor for this patient encounter was physically present during the encounter and was fully available. All aspects of the patient interview, examination, medical decision making process, and medical care plan development were reviewed and approved by the faculty preceptor. The faculty preceptor is aware and concurs with the plan as stated in the body of this note and will attest to such by his/her cosignature. ESPERANZA MYLES DO May 17, 2018 11:51
[2018-05-17 18:00] VITALS: BP 138/92
[2018-05-17] MEDS: MIRTAZAPINE 15 MG TAB PO SCH (21:53)
[2018-05-17] MEDS: ATORVASTATIN 20 MG TAB PO SCH (21:53)
[2018-05-17] MEDS: OXcarbazepine 300 MG TAB PO SCH (21:53)
[2018-05-18] MEDS: LEVOTHYROXINE 100MCG TABLET (0.1MG) PO SCH (05:50)
[2018-05-18 06:41] VITALS: BP 139/80
[2018-05-18] MEDS: metFORMIN (GLUCOPHAGE) 1000 MG TABLET PO SCH ×2 (08:54→17:24)
[2018-05-18] MEDS: HumaLOG INSULIN (NovoLOG) PER UNIT SC SCH ×4 (08:54→21:00)
[2018-05-18] MEDS: risperiDONE 1 MG TAB PO SCH ×3 (08:55→21:28)
[2018-05-18] MEDS: LISINOPRIL 5 MG TAB PO SCH (08:55)
[2018-05-18] MEDS: SERTRALINE HCL 25 MG TABLET PO SCH (08:55)
[2018-05-18] MEDS: BENZTROPINE 1 MG TAB PO SCH ×3 (08:55→21:28)
[2018-05-18] MEDS: GABAPENTIN 300 MG CAP PO SCH ×2 (08:56→21:28)
[2018-05-18 18:00] VITALS: BP 116/76
--- NOTE | 2018-05-18 19:06 | MHIPNPDOC ---
[facility] Progress Note Progress Note DATE OF SERVICE: 05/18/18 HISTORY OF THE PRESENT ILLNESS: as per ED report: "Pt states he had a friend drive him to the ED due to increased depression & SI with a plan to OD. Pt states that last night he had SI with a plan to OD. He reports increasing depression over the past few days. He stopped taking his meds because he was having side effects. Pt's main stressor is his living situation. He lives with his boss & does not think it is a good living environment for him. Pt reports poor sleep, poor appetite, poor motivation. VITAL SIGNS: See below. NEW TEST RESULTS: See below CURRENT MEDICATIONS: See below. MENTAL STATUS EXAMINATION: Patient is a 47-year old male, who is alert, disheveled, unkempt, dressed in hospital clothes with poor eye contact, without lip smacking. Speech: Is rapid, fluent, spontaneous, somewhat pressured, normal volume and normal tone. Language skills are fair. Thought processes including: circumstantial, tangential Thought content: depressive and anxious thoughts. Denies homicidal ideation, reports suicidal thoughts, fleeting, passive. Denies auditory and visual hallucinations and denies thought delusions Description of associations: Associative. Description of abnormal or psychotic thoughts: denies auditory and visual hallucinations and denies thought delusions Judgment: poor Insight: Poor. Orientation: Poor. Recent and remote memory: Limited. Attention span and concentration: Fair. Fund of knowledge: Average. Mood: Anxious and depressed. Affect: Flat, constricted, Congruent with mood. DIAGNOSES: 1. Bipolar disorder, mixed 2. Generalized anxiety disorder. ASSESSMENT: Patient is making an effort to get better. He has attended some groups. He asks me if we can transfer him to [facility] and I tell him he has not been enough time at [facility], we haven't had the time to see if he responds to medications and I remind him that he said he had a good response to Risperdal in the past. I increased Zoloft to 50 mgs today. He is still a little disorganized, he seems to have thought blocking, he is easily distractible, he is depressed but he looks less disheveled than he did before. He is depressed and according to staff members he goes from being depressed to being manic, very rapidly. It is for that reason that I had not increased his Zoloft to 50 mgs until today but I was trying to avoid him going manic. Will continue to monitor. MANAGEMENT PLAN: Continue Risperdal 1 mg PO TID, Remeron 30 mg PO QHS, increase Zoloft to 50 mg PO daily and Cogentin 1 mg PO TID. TIME SPENT: 15 minutes. Vital Signs Vital Signs Date Time Temp Pulse Resp B/P (MAP) Pulse Ox O2 Delivery O2 Flow Rate FiO2 05/18/18 08:55 139/80 05/18/18 06:41 97.2 85 16 05/15/18 18:00 Room Air 05/12/18 19:45 96 Laboratory Data 24H Labs Laboratory Tests 2 05/17/18 21:50: Bedside Glucose (Misc Panel) 115H 05/18/18 05:55: Bedside Glucose (Misc Panel) 121H 05/18/18 11:52: Bedside Glucose (Misc Panel) 121H 05/18/18 17:24: Bedside Glucose (Misc Panel) 102 Current Medications Current Medications Acetaminophen (Tylenol Tab) 650 mg Q6HP PRN PO HEADACHE or DISCOMFORT; Start 05/12/18 at 18:15 Al Hydrox/Mg Hydrox/Simethicone (Mylanta) 30 ml Q4HP PRN PO HEA RTBURN/INDIGESTION; Start 05/12/18 at 18:15 Atorvastatin Calcium (Lipitor) 20 mg QHS PO Last administered on 05/17/18at 21:53; Start 05/12/18 at 21:00 Benztropine Mesylate (Cogentin) 1 mg BID PO Last administered on 05/15/18at 08:26; Start 05/13/18 at 09:00; Stop 05/15/18 at 14:22; Status DC Benztropine Mesylate (Cogentin) 1 mg TID PO Last administered on 05/18/18at 15:45; Start 05/15/18 at 16:00 Dextrose (Dextrose 50%) 25 ml ASDIRECTED PRN IV SEE LABEL COMMENTS; Start 05/12/18 at 20:30 Doxepin HCl (SINEquan) 50 mg QHS PO Last administered on 05/14/18at 21:13; Start 05/12/18 at 21:00; Stop 05/15/18 at 14:11; Status DC Fluoxetine HCl (PROzac) 10 mg DAILY PO Last administered on 05/14/18at 08:09; Start 05/13/18 at 09:00; Stop 05/14/18 at 21:05; Status DC Fluoxetine HCl (PROzac) 20 mg DAILY PO Last administered on 05/15/18at 08:26; Start 05/15/18 at 09:00; Stop 05/15/18 at 14:08; Status DC Gabapentin (Neurontin) 600 mg BID PO Last administered on 05/18/18at 08:56; Start 05/12/18 at 21:00 Glucagon (Glucagon) 1 mg ASDIRECTED PRN SC SEE LABEL COMMENTS; Start 05/12/18 at 20:30 Glucose (Glucose) 16 GM ASDIRECTED PRN PO SEE LABEL COMMENTS; Start 05/12/18 at 20:30 Home Med (Med Rec Complete!) ASDIRECTED XX ; Start 05/12/18 at 17:45; Stop 05/12/18 at 17:47; Status DC Insulin Human Lispro (HumaLOG INSULIN) See Protocol Table AC SC Last administered on 05/18/18at 11:55; Start 05/13/18 at 07:30 Insulin Human Lispro (HumaLOG INSULIN) See Protocol Table QHS SC ; Start 05/12/18 at 21:00 Levothyroxine Sodium (Synthroid) 100 mcg DAILY@0600 PO Last administered on 05/18/18at 05:50; Start 05/13/18 at 06:00 Lisinopril (Prinivil) 5 mg DAILY PO Last administered on 05/18/18at 08:55; Start 05/12/18 at 20:30 Magnesium Hydroxide (Milk Of Magnesia) 30 ml DAILYPRN PRN PO CONSTIPATION; Start 05/12/18 at 18:15 Metformin HCl (Glucophage) 1,000 mg BID@08,18 PO Last administered on 05/18/18at 17:24; Start 05/13/18 at 18:00 Mirtazapine (Remeron) 7.5 mg QHS PO Last administered on 05/14/18at 21:13; Start 05/12/18 at 21:00; Stop 05/15/18 at 14:11; Status DC Mirtazapine (Remeron) 30 mg QHS PO Last administered on 05/17/18at 21:53; Start 05/15/18 at 21:00 Olanzapine (ZyPREXA) 10 mg BID PO Last administered on 05/15/18at 08:26; Start 05/15/18 at 09:00; Stop 05/15/18 at 14:31; Status DC Olanzapine (ZyPREXA) 10 mg QHS PO Last administered on 05/13/18at 20:33; Start 05/12/18 at 21:00; Stop 05/14/18 at 21:05; Status DC Oxcarbazepine (Trileptal) 600 mg QHS PO Last administered on 05/17/18at 21:53; Start 05/12/18 at 21:00 Risperidone (RisperDAL) 1 mg TID PO Last administered on 05/18/18at 15:45; Start 05/15/18 at 16:00 Sertraline HCl (Zoloft) 25 mg QAM PO Last administered on 05/18/18at 08:55; Start 05/16/18 at 09:00; Stop 05/18/18 at 14:28; Status DC Sertraline HCl (Zoloft) 50 mg QAM PO ; Start 05/19/18 at 09:00 Trazodone HCl (Desyrel) 50 mg QHSP PRN PO INSOMNIA Last administered on 05/16/18at 22:43; Start 05/12/18 at 18:15 Allergies Coded Allergies: Penicillins (Verified Allergy, Unknown, 07/19/12) Penicillins Cross Reactors (Verified Allergy, Unknown, 07/19/12) YAAKOV BAILEY MD May 18, 2018 19:05
[2018-05-18] MEDS: ATORVASTATIN 20 MG TAB PO SCH (21:28)
[2018-05-18] MEDS: MIRTAZAPINE 15 MG TAB PO SCH (21:28)
[2018-05-18] MEDS: OXcarbazepine 300 MG TAB PO SCH (21:28)
[2018-05-19 06:00] VITALS: BP 138/70
[2018-05-19] MEDS: LEVOTHYROXINE 100MCG TABLET (0.1MG) PO SCH (06:13)
[2018-05-19] MEDS: HumaLOG INSULIN (NovoLOG) PER UNIT SC SCH ×4 (06:29→21:00)
[2018-05-19] MEDS: metFORMIN (GLUCOPHAGE) 1000 MG TABLET PO SCH ×2 (08:46→17:28)
[2018-05-19] MEDS: risperiDONE 1 MG TAB PO SCH ×3 (08:58→21:19)
[2018-05-19] MEDS: GABAPENTIN 300 MG CAP PO SCH ×2 (08:58→21:19)
[2018-05-19] MEDS: LISINOPRIL 5 MG TAB PO SCH (08:58)
[2018-05-19] MEDS: BENZTROPINE 1 MG TAB PO SCH ×3 (08:58→21:19)
[2018-05-19] MEDS ORDERED: SERTRALINE HCL 50 MG TAB PO SCH (09:00)
[2018-05-19 18:00] VITALS: BP 135/70
[2018-05-19] MEDS: ATORVASTATIN 20 MG TAB PO SCH (21:19)
[2018-05-19] MEDS: OXcarbazepine 300 MG TAB PO SCH (21:19)
[2018-05-19] MEDS: MIRTAZAPINE 15 MG TAB PO SCH (21:19)
[2018-05-20] MEDS: LEVOTHYROXINE 100MCG TABLET (0.1MG) PO SCH (06:06)
[2018-05-20] MEDS: HumaLOG INSULIN (NovoLOG) PER UNIT SC SCH ×4 (06:36→21:00)
[2018-05-20 07:26] LABS: ALBUMIN 3.5 GM/DL (3.2-5.2); BILIRUBIN,DIRECT 0.2 MG/DL (0.0-0.2); BILIRUBIN,TOTAL 0.4 MG/DL (0.2-1.0); CHOLESTEROL RISK RATIO 3.261 (<5); TOTAL PROTEIN 6.5 GM/DL (6.4-8.2)
[2018-05-20 07:40] VITALS: BP 137/91
[2018-05-20] MEDS: BENZTROPINE 1 MG TAB PO SCH ×3 (08:16→20:58)
[2018-05-20] MEDS: LISINOPRIL 5 MG TAB PO SCH (08:16)
[2018-05-20] MEDS: risperiDONE 1 MG TAB PO SCH ×3 (08:16→20:58)
[2018-05-20] MEDS: metFORMIN (GLUCOPHAGE) 1000 MG TABLET PO SCH ×2 (08:16→17:00)
[2018-05-20] MEDS: GABAPENTIN 300 MG CAP PO SCH ×2 (08:16→20:58)
[2018-05-20] MEDS ORDERED: SERTRALINE HCL 25 MG TABLET PO SCH (09:00)
[2018-05-20 18:00] VITALS: BP 163/97
--- NOTE | 2018-05-20 19:11 | MHIPNPDOC ---
[facility] Progress Note Progress Note DATE OF SERVICE: 05/19/18 HISTORY OF THE PRESENT ILLNESS: as per ED report: "Pt states he had a friend drive him to the ED due to increased depression & SI with a plan to OD. Pt states that last night he had SI with a plan to OD. He reports increasing depression over the past few days. He stopped taking his meds because he was having side effects. Pt's main stressor is his living situation. He lives with his boss & does not think it is a good living environment for him. Pt reports poor sleep, poor appetite, poor motivation. VITAL SIGNS: See below. NEW TEST RESULTS: See below CURRENT MEDICATIONS: See below. MENTAL STATUS EXAMINATION: Patient is a 47-year old male, who is alert, disheveled, unkempt, dressed in hospital clothes with poor eye contact, without lip smacking. Speech: Is rapid, fluent, spontaneous, somewhat pressured, normal volume and normal tone. Language skills are fair. Thought processes including: circumstantial, tangential Thought content: depressive and anxious thoughts. Denies homicidal ideation, reports suicidal thoughts, fleeting, passive. Denies auditory and visual hallucinations and denies thought delusions Description of associations: Associative. Description of abnormal or psychotic thoughts: denies auditory and visual hallucinations and denies thought delusions Judgment: poor Insight: Poor. Orientation: Poor. Recent and remote memory: Limited. Attention span and concentration: Fair. Fund of knowledge: Average. Mood: Anxious and depressed. Affect: Flat, constricted, Congruent with mood. DIAGNOSES: 1. Bipolar disorder, mixed 2. Generalized anxiety disorder. ASSESSMENT: Patient says his anxiety is a 3/10 and his depression is a 5/10, he sleeps well at night, he says during the day he doesn't sleep, he only lays down. He says his appetite is about the same. he says he still has passive SI but they are less frequent and less strong. Denies HI, thoughts of harming other people. He says he feels paranoid at times, he denies AV hallucinations. He is less fidgety, less restless. His hygiene has improved, he says sometimes he has energy and sometimes he doesn't. he is cooperative and pleasant, his affect is still flat/constricted MANAGEMENT PLAN: Continue Risperdal 1 mg PO TID, Remeron 30 mg PO QHS, increase Zoloft to 75 mg PO daily and Cogentin 1 mg PO TID. TIME SPENT: 15 minutes. Vital Signs Vital Signs Date Time Temp Pulse Resp B/P (MAP) Pulse Ox O2 Delivery O2 Flow Rate FiO2 05/19/18 08:58 138/70 05/19/18 06:00 97.5 72 20 05/15/18 18:00 Room Air Laboratory Data 24H Labs Laboratory Tests 2 05/18/18 17:24: Bedside Glucose (Misc Panel) 102 05/18/18 21:25: Bedside Glucose (Misc Panel) 109H 05/19/18 06:27: Bedside Glucose (Misc Panel) 115H 05/19/18 12:33: Bedside Glucose (Misc Panel) 111H Current Medications Current Medications Acetaminophen (Tylenol Tab) 650 mg Q6HP PRN PO HEADACHE or DISCOMFORT; Start 05/12/18 at 18:15 Al Hydrox/Mg Hydrox/Simethicone (Mylanta) 30 ml Q4HP PRN PO HEARTBURN/INDIGESTION; Start 05/12/18 at 18:15 Atorvastatin Calcium (Lipitor) 20 mg QHS PO Last administered on 05/18/18at 21:28; Start 05/12/18 at 21:00 Benztropine Mesylate (Cogentin) 1 mg BID PO Last administered on 05/15/18at 08:26; Start 05/13/18 at 09:00; Stop 05/15/18 at 14:22; Status DC Benztropine Mesylate (Cogentin) 1 mg TID PO Last administered on 05/19/18at 08:58; Start 05/15/18 at 16:00 Dextrose (Dextrose 50%) 25 ml ASDIRECTED PRN IV SEE LABEL COMMENTS; Start 05/12/18 at 20:30 Doxepin HCl (SINEquan) 50 mg QHS PO Last administered on 05/14/18at 21:13; Start 05/12/18 at 21:00; Stop 05/15/18 at 14:11; Status DC Fluoxetine HCl (PROzac) 10 mg DAILY PO Last administered on 05/14/18at 08:09; Start 05/13/18 at 09:00; Stop 05/14/18 at 21:05; Status DC Fluoxetine HCl (PROzac) 20 mg DAILY PO Last administered on 05/15/18at 08:26; Start 05/15/18 at 09:00; Stop 05/15/18 at 14:08; Status DC Gabapentin (Neurontin) 600 mg BID PO Last administered on 05/19/18at 08:58; Start 05/12/18 at 21:00 Glucagon (Glucagon) 1 mg ASDIRECTED PRN SC SEE LABEL COMMENTS; Start 05/12/18 at 20:30 Glucose (Glucose) 16 GM ASDIRECTED PRN PO SEE LABEL COMMENTS; Start 05/12/18 at 20:30 Home Med (Med Rec Complete!) ASDIRECTED XX ; Start 05/12/18 at 17:45; Stop 05/12/18 at 17:47; Status DC Insulin Human Lispro (HumaLOG INSULIN) See Protocol Table AC SC Last administered on 05/19/18at 12:35; Start 05/13/18 at 07:30 Insulin Human Lispro (HumaLOG INSULIN) See Protocol Table QHS SC ; Start 05/12/18 at 21:00 Levothyroxine Sodium (Synthroid) 100 mcg DAILY@0600 PO Last administered on 05/19/18at 06:13; Start 05/13/18 at 06:00 Lisinopril (Prinivil) 5 mg DAILY PO Last administered on 05/19/18at 08:58; Start 05/12/18 at 20:30 Magnesium Hydroxide (Milk Of Magnesia) 30 ml DAILYPRN PRN PO CONSTIPATION; Start 05/12/18 at 18:15 Metformin HCl (Glucophage) 1,000 mg BID@08,18 PO Last administered on 05/19/18at 08:46; Start 05/13/18 at 18:00 Mirtazapine (Remeron) 7.5 mg QHS PO Last administered on 05/14/18at 21:13; Star t 05/12/18 at 21:00; Stop 05/15/18 at 14:11; Status DC Mirtazapine (Remeron) 30 mg QHS PO Last administered on 05/18/18at 21:28; Start 05/15/18 at 21:00 Olanzapine (ZyPREXA) 10 mg BID PO Last administered on 05/15/18at 08:26; Start 05/15/18 at 09:00; Stop 1/27/19 at 14:31; Status DC Olanzapine (ZyPREXA) 10 mg QHS PO Last administered on 05/13/18at 20:33; Start 05/12/18 at 21:00; Stop 05/14/18 at 21:05; Status DC Oxcarbazepine (Trileptal) 600 mg QHS PO Last administered on 05/18/18at 21:28; Start 05/12/18 at 21:00 Risperidone (RisperDAL) 1 mg TID PO Last administered on 05/19/18at 08:58; Start 05/15/18 at 16:00 Sertraline HCl (Zoloft) 25 mg QAM PO Last administered on 05/18/18at 08:55; Start 05/16/18 at 09:00; Stop 05/18/18 at 14:28; Status DC Sertraline HCl (Zoloft) 50 mg QAM PO Last administered on 05/19/18at 08:58; Start 05/19/18 at 09:00 Trazodone HCl (Desyrel) 50 mg QHSP PRN PO INSOMNIA Last administered on 05/16/18at 22:43; Start 05/12/18 at 18:15 Allergies Coded Allergies: Penicillins (Verified Allergy, Unknown, 07/19/12) Penicillins Cross Reactors (Verified Allergy, Unknown, 07/19/12) YAAKOV BAILEY MD May 19, 2018 14:55
--- NOTE | 2018-05-20 19:18 | MHIPNPDOC ---
[facility] Progress Note Progress Note DATE OF SERVICE: 05/20/18 HISTORY OF THE PRESENT ILLNESS: as per ED report: "Pt states he had a friend drive him to the ED due to increased depression & SI with a plan to OD. Pt states that last night he had SI with a plan to OD. He reports increasing depression over the past few days. He stopped taking his meds because he was having side effects. Pt's main stressor is his living situation. He lives with his boss & does not think it is a good living environment for him. Pt reports poor sleep, poor appetite, poor motivation. VITAL SIGNS: See below. NEW TEST RESULTS: See below CURRENT MEDICATIONS: See below. MENTAL STATUS EXAMINATION: Patient is a 47-year old male, who is alert, disheveled, unkempt, dressed in hospital clothes with poor eye contact, without lip smacking. Speech: Is rapid, fluent, spontaneous, somewhat pressured, normal volume and normal tone. Language skills are fair. Thought processes including: circumstantial, tangential Thought content: depressive and anxious thoughts. Denies homicidal ideation, reports suicidal thoughts, fleeting, passive. Denies auditory and visual hallucinations and denies thought delusions Description of associations: Associative. Description of abnormal or psychotic thoughts: denies auditory and visual hallucinations and denies thought delusions Judgment: poor Insight: Poor. Orientation: Poor. Recent and remote memory: Limited. Attention span and concentration: Fair. Fund of knowledge: Average. Mood: Anxious and depressed. Affect: Flat, constricted, Congruent with mood. DIAGNOSES: 1. Bipolar disorder, mixed 2. Generalized anxiety disorder. ASSESSMENT: Patient says he has spent all day in bed. He says his energy levels are very low. He says he felt better yesterday. He denies experiencing hallucinations, denies feeling paranoid, denies homicidal ideation and says he has not experienced suicidal thoughts today but still feels depressed. Spoke with him about adding Abilify as another mood stabilizer and to boost the antidepressant effect of Zoloft that will be increased to 100 mgs. This securities underwriter has been careful with increasing the antidepressant because patient and staff have informed that he can switch to winsome very rapidly. Will continue to monitor. MANAGEMENT PLAN: Continue Risperdal 1 mg PO TID, Remeron 30 mg PO QHS, increase Zoloft to 100 mg PO daily and Cogentin 1 mg PO TID. Start Abilify 2 mgs PO QAM TIME SPENT: 15 minutes. Vital Signs Vital Signs Date Time Temp Pulse Resp B/P (MAP) Pulse Ox O2 Delivery O2 Flow Rate FiO2 05/20/18 08:16 137/91 05/20/18 07:40 97.5 73 16 05/15/18 18:00 Room Air Laboratory Data 24H Labs Laboratory Tests 2 05/19/18 21:16: Bedside Glucose (Misc Panel) 115H 05/20/18 06:22: Aspartate Amino Transf (AST/SGOT) 26, Alanine Aminotransferase (ALT/SGPT) 46, Alkaline Phosphatase 108, Total Bilirubin 0.4, Direct Bilirubin 0.2, Total Protein 6.5, Albumin 3.5, Albumin/Globulin Ratio 1.17, Triglycerides Level 116, Total Cholesterol 137, LDL Cholesterol 72, Non-HDL Cholesterol (LDL + VLDL) 95, Total HDL Cholesterol 42, Cholesterol/HDL Ratio 3.261 05/20/18 06:33: Bedside Glucose (Misc Panel) 117H 05/20/18 12:32: Bedside Glucose (Misc Panel) 78 05/20/18 16:47: Bedside Glucose (Misc Panel) 112H Current Medications Current Medications Acetaminophen (Tylenol Tab) 650 mg Q6HP PRN PO HEADACHE or DISCOMFORT; Start 05/12/18 at 18:15 Al Hydrox/Mg Hydrox/Simethicone (Mylanta) 30 ml Q4HP PRN PO HEARTBURN/IN DIGESTION; Start 05/12/18 at 18:15 Aripiprazole (AbiLIFY) 2 mg QAM PO ; Start 05/21/18 at 09:00 Atorvastatin Calcium (Lipitor) 20 mg QHS PO Last administered on 05/19/18at 21:19; Start 05/12/18 at 21:00 Benztropine Mesylate (Cogentin) 1 mg BID PO Last administered on 05/15/18at 08:26; Start 05/13/18 at 09:00; Stop 05/15/18 at 14:22; Status DC Benztropine Mesylate (Cogentin) 1 mg TID PO Last administered on 05/20/18at 16:49; Start 05/15/18 at 16:00 Dextrose (Dextrose 50%) 25 ml ASDIRECTED PRN IV SEE LABEL COMMENTS; Start 05/12/18 at 20:30 Doxepin HCl (SINEquan) 50 mg QHS PO Last administered on 05/14/18at 21:13; Start 05/12/18 at 21:00; Stop 05/15/18 at 14:11; Status DC Fluoxetine HCl (PROzac) 10 mg DAILY PO Last administered on 05/14/18at 08:09; Start 05/13/18 at 09:00; Stop 05/14/18 at 21:05; Status DC Fluoxetine HCl (PROzac) 20 mg DAILY PO Last administered on 05/15/18at 08:26; Start 05/15/18 at 09:00; Stop 05/15/18 at 14:08; Status DC Gabapentin (Neurontin) 600 mg BID PO Last administered on 05/20/18at 08:16; Start 05/12/18 at 21:00 Glucagon (Glucagon) 1 mg ASDIRECTED PRN SC SEE LABEL COMMENTS; Start 05/12/18 at 20:30 Glucose (Glucose) 16 GM ASDIRECTED PRN PO SEE LABEL COMMENTS; Start 05/12/18 at 20:30 Home Med (Med Rec Complete!) ASDIRECTED XX ; Start 05/12/18 at 17:45; Stop 05/12/18 at 17:47; Status DC Insulin Human Lispro (HumaLOG INSULIN) See Protocol Table AC SC Last adm inistered on 05/20/18at 16:50; Start 05/13/18 at 07:30 Insulin Human Lispro (HumaLOG INSULIN) See Protocol Table QHS SC ; Start at 21:00 Levothyroxine Sodium (Synthroid) 100 mcg DAILY@0600 PO Last administered on 05/20/18at 06:06; Start 05/13/18 at 06:00 Lisinopril (Prinivil) 5 mg DAILY PO Last administered on 05/20/18at 08:16; Start 05/12/18 at 20:30 Magnesium Hydroxide (Milk Of Magnesia) 30 ml DAILYPRN PRN PO CONSTIPATION; Start 05/12/18 at 18:15 Metformin HCl (Glucophage) 1,000 mg BID@08,18 PO Last administered on 05/20/18at 17:00; Start 05/13/18 at 18:00 Mirtazapine (Remeron) 7.5 mg QHS PO Last administered on 05/14/18at 21:13; Start 05/12/18 at 21:00; Stop 05/15/18 at 14:11; Status DC Mirtazapine (Remeron) 30 mg QHS PO Last administered on 05/19/18at 21:19; Start 05/15/18 at 21:00 Olanzapine (ZyPREXA) 10 mg BID PO Last administered on 05/15/18at 08:26; Start 05/15/18 at 09:00; Stop 05/15/18 at 14:31; Status DC Olanzapine (ZyPREXA) 10 mg QHS PO Last administered on 05/13/18at 20:33; Start 05/12/18 at 21:00; Stop 05/14/18 at 21:05; Status DC Oxcarbazepine (Trileptal) 600 mg QHS PO Last administered on 05/19/18at 21:19; Start 05/12/18 at 21:00 Risperidone (RisperDAL) 1 mg TID PO Last administered on 05/20/18at 16:49; Start 05/15/18 at 16:00 Sertraline HCl (Zoloft) 25 mg QAM PO Last administered on 05/18/18at 08:55; Start 05/16/18 at 09:00; Stop 05/18/18 at 14:28; Status DC Sertraline HCl (Zoloft) 50 mg QAM PO Last administered on 05/19/18at 08:58; Start 05/19/18 at 09:00; Stop 05/19/18 at 14:55; Status DC Sertraline HCl (Zoloft) 75 mg QAM PO Last administered on 05/20/18at 08:16; Start 05/20/18 at 09:00; Stop 05/20/18 at 15:46; Status DC Sertraline HCl (Zoloft) 100 mg QAM PO ; Start 05/21/18 at 09:00 Trazodone HCl (Desyrel) 50 mg QHSP PRN PO INSOMNIA Last administered on 05/16/18at 22:43; Start 05/12/18 at 18:15 Allergies Coded Allergies: Penicillins (Verified Allergy, Unknown, 07/19/12) Penicillins Cross Reactors (Verified Allergy, Unknown, 07/19/12) YAAKOV BAILEY MD May 20, 2018 19:18
[2018-05-20] MEDS: ATORVASTATIN 20 MG TAB PO SCH (20:58)
[2018-05-20] MEDS: MIRTAZAPINE 15 MG TAB PO SCH (20:59)
[2018-05-20] MEDS: OXcarbazepine 300 MG TAB PO SCH (21:00)
[2018-05-21] MEDS: LEVOTHYROXINE 100MCG TABLET (0.1MG) PO SCH (06:09)
[2018-05-21 06:35] VITALS: BP 149/93
[2018-05-21] MEDS: HumaLOG INSULIN (NovoLOG) PER UNIT SC SCH ×4 (07:14→21:00)
[2018-05-21] MEDS: BENZTROPINE 1 MG TAB PO SCH ×3 (09:08→20:33)
[2018-05-21] MEDS: risperiDONE 1 MG TAB PO SCH ×3 (09:09→20:33)
[2018-05-21] MEDS: GABAPENTIN 300 MG CAP PO SCH ×2 (09:09→20:33)
[2018-05-21] MEDS: SERTRALINE 100 MG TAB PO SCH (09:09)
[2018-05-21] MEDS: LISINOPRIL 5 MG TAB PO SCH (09:09)
[2018-05-21] MEDS: metFORMIN (GLUCOPHAGE) 1000 MG TABLET PO SCH ×2 (09:09→17:16)
[2018-05-21] MEDS: ARIPiprazole 2 MG TAB PO SCH (09:09)
[2018-05-21 18:00] VITALS: BP 137/75
[2018-05-21] MEDS: MIRTAZAPINE 15 MG TAB PO SCH (20:33)
[2018-05-21] MEDS: ATORVASTATIN 20 MG TAB PO SCH (20:33)
[2018-05-21] MEDS: OXcarbazepine 300 MG TAB PO SCH (20:34)
[2018-05-22] MEDS: LEVOTHYROXINE 100MCG TABLET (0.1MG) PO SCH (06:15)
[2018-05-22 06:28] VITALS: BP 150/87
[2018-05-22] MEDS: HumaLOG INSULIN (NovoLOG) PER UNIT SC SCH ×4 (06:37→21:00)
[2018-05-22] MEDS: risperiDONE 1 MG TAB PO SCH ×3 (09:35→20:49)
[2018-05-22] MEDS: LISINOPRIL 5 MG TAB PO SCH (09:35)
[2018-05-22] MEDS: metFORMIN (GLUCOPHAGE) 1000 MG TABLET PO SCH ×2 (09:35→17:14)
[2018-05-22] MEDS: BENZTROPINE 1 MG TAB PO SCH ×3 (09:35→20:49)
[2018-05-22] MEDS: GABAPENTIN 300 MG CAP PO SCH ×2 (09:35→20:49)
[2018-05-22] MEDS: ARIPiprazole 2 MG TAB PO SCH (09:35)
[2018-05-22] MEDS: SERTRALINE 100 MG TAB PO SCH (09:35)
[2018-05-22 18:00] VITALS: BP 139/91
[2018-05-22] MEDS: MIRTAZAPINE 15 MG TAB PO SCH (20:48)
[2018-05-22] MEDS: ATORVASTATIN 20 MG TAB PO SCH (20:49)
[2018-05-22] MEDS: OXcarbazepine 300 MG TAB PO SCH (20:49)
[2018-05-23] MEDS: LEVOTHYROXINE 100MCG TABLET (0.1MG) PO SCH (06:04)
[2018-05-23] MEDS: HumaLOG INSULIN (NovoLOG) PER UNIT SC SCH ×5 (06:37→20:55)
[2018-05-23 06:49] VITALS: BP 133/85
[2018-05-23] MEDS: metFORMIN (GLUCOPHAGE) 1000 MG TABLET PO SCH ×2 (07:46→17:21)
[2018-05-23] MEDS: SERTRALINE 100 MG TAB PO SCH (08:46)
[2018-05-23] MEDS: GABAPENTIN 300 MG CAP PO SCH ×2 (08:46→20:53)
[2018-05-23] MEDS: BENZTROPINE 1 MG TAB PO SCH ×3 (08:46→20:54)
[2018-05-23] MEDS: ARIPiprazole 2 MG TAB PO SCH (08:46)
[2018-05-23] MEDS: risperiDONE 1 MG TAB PO SCH ×3 (08:46→20:54)
[2018-05-23] MEDS: LISINOPRIL 5 MG TAB PO SCH (08:47)
[2018-05-23] MEDS ORDERED: **PENDING PPD ENTRY XX SCH (09:00)
[2018-05-23] MEDS ORDERED: TUBERCULIN PPD 5 UNITS/0.1 ML ID ONE ×2 (11:45→14:00)
[2018-05-23] MEDS ORDERED: SERTRALINE HCL 25 MG TABLET PO ONE (12:45)
--- NOTE | 2018-05-23 14:29 | IPNPDOC ---
Date Seen The patient was seen on 05/23/18. Progress Note HISTORY OF THE PRESENT ILLNESS: as per ED report: "Pt states he had a friend drive him to the ED due to increased depression & SI with a plan to OD. Pt states that last night he had SI with a plan to OD. He reports increasing depression over the past few days. He stopped taking his meds because he was having side effects. Pt's main stressor is his living situation. He lives with his boss & does not think it is a good living environment for him. Pt reports poor sleep, poor appetite, poor motivation. VITAL SIGNS: See below. NEW TEST RESULTS: See below CURRENT MEDICATIONS: See below. MENTAL STATUS EXAMINATION: Patient is a 47-year old male, who is alert, disheveled, unkempt, dressed in his personal clothes with poor eye contact, without lip smacking. Speech: Is rapid, fluent, spontaneous, normal volume and normal tone. Language skills are fair. Thought processes including: circumstantial, tangential Thought content: depressive and anxious thoughts. Denies homicidal ideation, reports suicidal thoughts, fleeting, passive. Denies auditory and visual hallucinations and denies thought delusions Description of associations: Associative. Description of abnormal or psychotic thoughts: denies auditory and visual hallucinations and denies thought delusions Judgment: poor Insight: Poor. Orientation: Poor. Recent and remote memory: Limited. Attention span and concentration: Fair. Fund of knowledge: Average. Mood: Anxious and depressed. Affect: Flat, constricted, Congruent with mood. DIAGNOSES: 1. Bipolar disorder, mixed 2. Generalized anxiety disorder. ASSESSMENT: Patient says that his energy levels are very low. He reports that he has been getting about 5-6 hours of sleep every night and that he is eating well. He denies any visual or auditory hallucinations, denies homicidal ideations, denies paranoia. He does state that he still does have some passive suicidal ideations. Will increase his zoloft dose to 125 mg PO daily. Have been careful with increasing the antidepressant because the staff states that he can switch to winsome very quickly. MANAGEMENT PLAN: Continue Risperdal 1 mg PO TID, Remeron 30 mg PO QHS, increase Zoloft to 125 mg PO daily and Cogentin 1 mg PO TID. Start Abilify 2 mgs PO QAM VS, I&O, 24H, Fishbone Vital Signs/I&O Vital Signs Date Time Temp Pulse Resp B/P (MAP) Pulse Ox O2 Delivery O2 Flow Rate FiO2 05/23/18 08:47 136/87 05/23/18 06:49 98.8 101 16 05/22/18 18:00 94 Laboratory Data 24H LABS Laboratory Tests 2 05/22/18 17:11: Bedside Glucose (Misc Panel) 143H 05/22/18 20:46: Bedside Glucose (Misc Panel) 128H 05/23/18 06:35: Bedside Glucose (Misc Panel) 119H 05/23/18 12:06: Bedside Glucose (Misc Panel) 107H GME ATTESTATION GME ATTESTATION My faculty preceptor for this patient encounter was physically present during the encounter and was fully available. All aspects of the patient interview, examination, medical decision making process, and medical care plan development were reviewed and approved by the faculty preceptor. The faculty preceptor is aware and concurs with the plan as stated in the body of this note and will attest to such by his/her cosignature. NATHALY HUANG OMS-III May 23, 2018 14:29
[2018-05-23 18:00] VITALS: BP 126/63
[2018-05-23] MEDS: ATORVASTATIN 20 MG TAB PO SCH (20:53)
[2018-05-23] MEDS: MIRTAZAPINE 15 MG TAB PO SCH (20:53)
[2018-05-23] MEDS: OXcarbazepine 300 MG TAB PO SCH (20:53)
[2018-05-24] MEDS: LEVOTHYROXINE 100MCG TABLET (0.1MG) PO SCH (06:05)
[2018-05-24] MEDS: HumaLOG INSULIN (NovoLOG) PER UNIT SC SCH ×4 (06:28→20:47)
[2018-05-24 06:37] VITALS: BP 141/85
[2018-05-24] MEDS: metFORMIN (GLUCOPHAGE) 1000 MG TABLET PO SCH ×2 (07:38→17:04)
[2018-05-24] MEDS: PILL CRUSHER/CUTTER 1 EACH XX PRN (09:14)
[2018-05-24] MEDS: SERTRALINE HCL 50 MG TAB PO SCH (09:14)
[2018-05-24] MEDS: risperiDONE 1 MG TAB PO SCH ×3 (09:14→20:44)
[2018-05-24] MEDS: GABAPENTIN 300 MG CAP PO SCH ×2 (09:14→20:43)
[2018-05-24] MEDS: BENZTROPINE 1 MG TAB PO SCH ×3 (09:15→20:44)
[2018-05-24] MEDS: LISINOPRIL 5 MG TAB PO SCH (09:16)
--- NOTE | 2018-05-24 17:47 | MHIPNPDOC ---
[facility] Progress Note Progress Note DATE OF SERVICE: 05/24/18 HISTORY OF THE PRESENT ILLNESS: as per ED report: "Pt states he had a friend drive him to the ED due to increased depression & SI with a plan to OD. Pt states that last night he had SI with a plan to OD. He reports increasing depression over the past few days. He stopped taking his meds because he was having side effects. Pt's main stressor is his living situation. He lives with his boss & does not think it is a good living environment for him. Pt reports poor sleep, poor appetite, poor motivation. VITAL SIGNS: See below. NEW TEST RESULTS: See below CURRENT MEDICATIONS: See below. MENTAL STATUS EXAMINATION: Patient is a 47-year old male, who is alert, disheveled, unkempt, dressed in his personal clothes with poor eye contact, without lip smacking. Seen laying in bed with constant movement of feet and hands Speech: Is rapid, fluent, spontaneous, decreased volume and monotone. Language skills are fair. Thought processes including: circumstantial, tangential Thought content: depressive and anxious thoughts. Denies homicidal ideation, rep orts suicidal thoughts, fleeting, passive. Denies auditory and visual hallucinations and denies thought delusions Description of associations: Associative. Description of abnormal or psychotic thoughts: denies auditory and visual hallucinations and denies thought delusions Judgment: poor Insight: Poor. Orientation: Poor. Recent and remote memory: Limited. Attention span and concentration: Fair. Fund of knowledge: Average. Mood: Anxious and depressed. Affect: Flat, constricted, Congruent with mood. DIAGNOSES: 1. Bipolar disorder, mixed 2. Generalized anxiety disorder. ASSESSMENT: Patient was interviewed this morning in his bed. He reports that he is feeling worse today with lots of depression and anxiety. Yesterday he did not attend any group sessions because he just did not want to. He says that he does not know what happened yesterday to upset him. He has suicidal ideations. Denies homicidal ideations, no paranoia, no psychosis. MANAGEMENT PLAN: Continue Risperdal 1 mg PO TID, Remeron 30 mg PO QHS, increase Zoloft to 125 mg PO daily and Cogentin 1 mg PO TID. Start Abilify 2 mgs PO QAM Vital Signs Vital Signs Date Time Temp Pulse Resp B/P (MAP) Pulse Ox O2 Delivery O2 Flow Rate FiO2 05/24/18 09:16 130/82 05/24/18 06:37 97.5 74 14 05/22/18 18:00 94 Laboratory Data 24H Labs Laboratory Tests 2 05/23/18 20:51: Bedside Glucose (Misc Panel) 143H 05/24/18 06:26: Bedside Glucose (Misc Panel) 101 05/24/18 11:50: Bedside Glucose (Misc Panel) 129H 05/24/18 16:48: Bedside Glucose (Misc Panel) 90 Current Medications Current Medications Acetaminophen (Tylenol Tab) 650 mg Q6HP PRN PO HEADACHE or DISCOMFORT; Start 05/12/18 at 18:15 Al Hydrox/Mg Hydrox/Simethicone (Mylanta) 30 ml Q4HP PRN PO HEARTBURN/INDIGESTION; Start 05/12/18 at 18:15 Aripiprazole (AbiLIFY) 2 mg QAM PO Last administered on 05/23/18 08:46; Start 05/21/18 at 09:00; Stop 05/23/18 at 11:20; Status DC Aripiprazole (AbiLIFY) 2.5 mg BID PO Last administered on 05/24/18 09:16; Start 05/23/18 at 21:00 Atorvastatin Calcium (Lipitor) 20 mg QHS PO Last administered on 05/23/18at 20:53; Start 05/12/18 at 21:00 Benztropine Mesylate (Cogentin) 1 mg BID PO Last administered on 05/15/18at 08:26; Start 05/13/18 at 09:00; Stop 05/15/18 at 14:22; Status DC Benztropine Mesylate (Cogentin) 1 mg TID PO Last administered on 05/24/18at 15:22; Start 05/15/18 at 16:00 Dextrose (Dextrose 50%) 25 ml ASDIRECTED PRN IV SEE LABEL COMMENTS; Start 05/12/18 at 20:30 Doxepin HCl (SINEquan) 50 mg QHS PO Last administered on 05/14/18at 21:13; Start 05/12/18 at 21:00; Stop 05/15/18 at 14:11; Status DC Fluoxetine HCl (PROzac) 10 mg DAILY PO Last administered on 05/14/18at 08:09; S tart 05/13/18 at 09:00; Stop 05/14/18 at 21:05; Status DC Fluoxetine HCl (PROzac) 20 mg DAILY PO Last administered on 05/15/18at 08:26; Start 05/15/18 at 09:00; Stop 05/15/18 at 14:08; Status DC Gabapentin (Neurontin) 600 mg BID PO Last administered on 05/24/18at 09:14; Start 05/12/18 at 21:00 Glucagon (Glucagon) 1 mg ASDIRECTED PRN SC SEE LABEL COMMENTS; Start 05/12/18 at 20:30 Glucose (Glucose) 16 GM ASDIRECTED PRN PO SEE LABEL COMMENTS; Start 05/12/18 at 20:30 Home Med (Med Rec Complete!) ASDIRECTED XX ; Start 05/12/18 at 17:45; Stop 05/12/18 at 17:47; Status DC Insulin Human Lispro (HumaLOG INSULIN) See Protocol Table AC SC Last administered on 05/24/18at 11:53; Start 05/13/18 at 07:30 Insulin Human Lispro (HumaLOG INSULIN) See Protocol Table QHS SC ; Start 05/12/18 at 21:00 Levothyroxine Sodium (Synthroid) 100 mcg DAILY@0600 PO Last administered on 05/24/18at 06:05; Start 05/13/18 at 06:00 Lisinopril (Prinivil) 5 mg DAILY PO Last administered on 05/24/18at 09:16; Start 05/12/18 at 20:30 Magnesium Hydroxide (Milk Of Magnesia) 30 ml DAILYPRN PRN PO CONSTIPATION; Start 05/12/18 at 18:15 Metformin HCl (Glucophage) 1,000 mg BID@08,18 PO Last administered on 05/24/18at 17:04; Start 05/13/18 at 18:00 Mirtazapine (Remeron) 7.5 mg QHS PO Last administered on 05/14/18at 21:13; Start 05/12/18 at 21:00; Stop 05/15/18 at 14:11; Status DC Mirtazapine (Remeron) 30 mg QHS PO Last administered on 05/23/18at 20:53; Start 05/15/18 at 21:00 Non-Formulary Medication ( See Comment Field Below ) SEE COMMENTS SECTION 1T@10 XX ; Start 05/25/18 at 10:00; Stop 05/25/18 at 10:00; Status DC Non-Formulary Medication ( See Comment Field Below ) SEE LABEL COMMENTS DAILY XX ; Start 05/23/18 at 09:00; Stop 05/23/18 at 12:56; Status DC Olanzapine (ZyPREXA) 10 mg BID PO Last administered on 05/15/18at 08:26; Start 05/15/18 at 09:00; Stop 05/15/18 at 14:31; Status DC Olanzapine (ZyPREXA) 10 mg QHS PO Last administered on 05/13/18at 20:33; Start 05/12/18 at 21:00; Stop 05/14/18 at 21:05; Status DC Oxcarbazepine (Trileptal) 600 mg QHS PO Last administered on 05/23/18at 20:53; Start 05/12/18 at 21:00 Risperidone (RisperDAL) 1 mg TID PO Last administered on 05/24/18at 15:22; Start 05/15/18 at 16:00 Sertraline HCl (Zoloft) 25 mg QAM PO Last administered on 05/18/18at 08:55; Start 05/16/18 at 09:00; Stop 05/18/18 at 14:28; Status DC Sertraline HCl (Zoloft) 50 mg QAM PO Last administered on 05/19/18at 08:58; Start 05/19/18 at 09:00; Stop 05/19/18 at 14:55; Status DC Sertraline HCl (Zoloft) 75 mg QAM PO Last administered on 05/20/18at 08:16; Sta rt 05/20/18 at 09:00; Stop 05/20/18 at 15:46; Status DC Sertraline HCl (Zoloft) 100 mg QAM PO Last administered on 05/23/18at 08:46; Start 05/21/18 at 09:00; Stop 05/23/18 at 11:20; Status DC Sertraline HCl (Zoloft) 125 mg QAM PO Last administered on 05/24/18at 09:14; Start 05/24/18 at 09:00 Trazodone HCl (Desyrel) 50 mg QHSP PRN PO INSOMNIA Last administered on 05/16/18at 22:43; Start 05/12/18 at 18:15 Allergies Coded Allergies: Penicillins (Verified Allergy, Unknown, 07/19/12) Penicillins Cross Reactors (Verified Allergy, Unknown, 07/19/12) GME ATTESTATION GME ATTESTATION My faculty preceptor for this patient encounter was physically present during the encounter and was fully available. All aspects of the patient interview, examination, medical decision making process, and medical care plan development were reviewed and approved by the faculty preceptor. The faculty preceptor is aware and concurs with the plan as stated in the body of this note and will attest to such by his/her cosignature. NATHALY HUANG OMS-III May 24, 2018 17:47
[2018-05-24 18:00] VITALS: BP 115/64
--- NOTE | 2018-05-24 18:43 | NUR ---
Seen for confirmatory consult. See Certificate of Examining Physician.
[2018-05-24] MEDS: OXcarbazepine 300 MG TAB PO SCH (20:43)
[2018-05-24] MEDS: ATORVASTATIN 20 MG TAB PO SCH (20:43)
[2018-05-24] MEDS: MIRTAZAPINE 15 MG TAB PO SCH (20:43)
[2018-05-25] MEDS: LEVOTHYROXINE 100MCG TABLET (0.1MG) PO SCH (06:07)
[2018-05-25 06:13] VITALS: BP 137/79
[2018-05-25] MEDS: HumaLOG INSULIN (NovoLOG) PER UNIT SC SCH ×4 (06:28→21:47)
[2018-05-25] MEDS: metFORMIN (GLUCOPHAGE) 1000 MG TABLET PO SCH ×2 (07:19→17:04)
[2018-05-25] MEDS: SERTRALINE HCL 50 MG TAB PO SCH (08:12)
[2018-05-25] MEDS: GABAPENTIN 300 MG CAP PO SCH ×2 (08:13→21:46)
[2018-05-25] MEDS: BENZTROPINE 1 MG TAB PO SCH ×3 (08:13→21:46)
[2018-05-25] MEDS: risperiDONE 1 MG TAB PO SCH ×3 (08:13→21:45)
[2018-05-25] MEDS: LISINOPRIL 5 MG TAB PO SCH (08:16)
--- NOTE | 2018-05-25 09:03 | MHIPNPDOC ---
[facility] Progress Note Progress Note DATE OF SERVICE: 05/25/18 HISTORY OF THE PRESENT ILLNESS: as per ED report: "Pt states he had a friend drive him to the ED due to increased depression & SI with a plan to OD. Pt states that last night he had SI with a plan to OD. He reports increasing depression over the past few days. He stopped taking his meds because he was having side effects. Pt's main stressor is his living situation. He lives with his boss & does not think it is a good living environment for him. Pt reports poor sleep, poor appetite, poor motivation. VITAL SIGNS: See below. NEW TEST RESULTS: See below CURRENT MEDICATIONS: See below. MENTAL STATUS EXAMINATION: Patient is a 47-year old male, who is alert, disheveled, unkempt, dressed in his personal clothes with poor eye contact, without lip smacking. Speech: Is rapid, fluent, spontaneous, decreased volume and monotone. Language skills are fair. Thought processes including: circumstantial, tangential Thought content: depressive and anxious thoughts. Denies homicidal ideation, reports suicidal thoughts, fleeting, passive. Denies auditory and visual hallucinations and denies thought delusions Description of associations: Associative. Description of abnormal or psychotic thoughts: denies auditory and visual hallucinations and denies thought delusions Judgment: poor Insight: Poor. Orientation: Poor. Recent and remote memory: Limited. Attention span and concentration: Fair. Fund of knowledge: Average. Mood: Anxious and depressed. Affect: Flat, constricted, Congruent with mood. DIAGNOSES: 1. Bipolar disorder, mixed 2. Generalized anxiety disorder. ASSESSMENT: Patient was interviewed this morning. He appeared better then before and even smiled during the conversation once. He says that he has very little or no anxiety and his depression is a little better. He attended 1 group session yesterday but plans to go to all of them today because he "made a deal" with the material planner that he would stay out of bed. We discussed coping skills he has learned and one thing he took away from groups yesterday is eating a healthy diet and this is something he wants to try to improve. Refugio says he slept well and has a good appetite. Still has fleeting passive suicidal thoughts but told me today "I don't think I could ever do something." Denies homicidal ideations, no paranoia, no psychosis. MANAGEMENT PLAN: Continue Risperdal 1 mg PO TID, Remeron 30 mg PO QHS, increase Zoloft to 125 mg PO daily and Cogentin 1 mg PO TID. Start Abilify 2 mgs PO QAM Vital Signs Vital Signs Date Time Temp Pulse Resp B/P (MAP) Pulse Ox O2 Delivery O2 Flow Rate FiO2 05/25/18 08:16 110/70 05/25/18 06:13 99.3 72 14 05/22/18 18:00 94 Laboratory Data 24H Labs Laboratory Tests 2 05/24/18 11:50: Bedside Glucose (Misc Panel) 129H 05/24/18 16:48: Bedside Glucose (Misc Panel) 90 05/24/18 20:39: Bedside Glucose (Misc Panel) 141H 05/25/18 06:25: Bedside Glucose (Misc Panel) 107H Current Medications Current Medications Acetaminophen (Tylenol Tab) 650 mg Q6HP PRN PO HEADACHE or DISCOMFORT; Start 05/12/18 at 18:15 Al Hydrox/Mg Hydrox/Simethicone (Mylanta) 30 ml Q4HP PRN PO HEARTBURN/INDIGESTION; Start 05/12/18 at 18:15 Aripiprazole (AbiLIFY) 2 mg QAM PO Last administered on 05/23/18at 08:46; Start 05/21/18 at 09:00; Stop 05/23/18 at 11:20; Status DC Aripiprazole (AbiLIFY) 2.5 mg BID PO Last administered on 05/25/18at 08:13; Start 05/23/18 at 21:00 Atorvastatin Calcium (Lipitor) 20 mg QHS PO Last administered on 05/24/18at 20:43; Start 05/12/18 at 21:00 Benztropine Mesylate (Cogentin) 1 mg BID PO Last administered on 05/15/18at 08:26; Start 05/13/18 at 09:00; Stop 05/15/18 at 14:22; Status DC Benztropine Mesylate (Cogentin) 1 mg TID PO Last administered on 05/25/18at 08:13; Start 05/15/18 at 16:00 Dextrose (Dextrose 50%) 25 ml ASDIRECTED PRN IV SEE LABEL COMMENTS; Start 05/12/18 at 20:30 Doxepin HCl (SINEquan) 50 mg QHS PO Last administered on 05/14/18at 21:13; Start 05/12/18 at 21:00; Stop 05/15/18 at 14:11; Status DC Fluoxetine HCl (PROzac) 10 mg DAILY PO Last administered on 05/14/18at 08:09; Start 05/13/18 at 09:00; Stop 05/14/18 at 21:05; Status DC Fluoxetine HCl (PROzac) 20 mg DAILY PO Last administered on 05/15/18at 08:26; Start 05/15/18 at 09:00; Stop 05/15/18 at 14:08; Status DC Gabapentin (Neurontin) 600 mg BID PO Last administered on 05/25/18at 08:13; Start 05/12/18 at 21:00 Glucagon (Glucagon) 1 mg ASDIRECTED PRN SC SEE LABEL COMMENTS; Start 05/12/18 at 20:30 Glucose (Glucose) 16 GM ASDIRECTED PRN PO SEE LABEL COMMENTS; Start 05/12/18 at 20:30 Home Med (Med Rec Complete!) ASDIRECTED XX ; Start 05/12/18 at 17:45; Stop 05/12/18 at 17:47; Status DC Insulin Human Lispro (HumaLOG INSULIN) See Protocol Table AC SC Last administered on 05/24/18at 11:53; Start 05/13/18 at 07:30 Insulin Human Lispro (HumaLOG INSULIN) See Protocol Table QHS SC ; Start 05/12/18 at 21:00 Levothyroxine Sodium (Synthroid) 100 mcg DAILY@0600 PO Last administered on 05/25/18at 06:07; Start 05/13/18 at 06:00 Lisinopril (Prinivil) 5 mg DAILY PO Last administered on 05/25/18at 08:16; Start 05/12/18 at 20:30 Magnesium Hydroxide (Milk Of Magnesia) 30 ml DAILYPRN PRN PO CONSTIPATION; Start 05/12/18 at 18:15 Metformin HCl (Glucophage) 1,000 mg BID@08,18 PO Last administered on 05/25/18at 07:19; Start 05/13/18 at 18:00 Mirtazapine (Remeron) 7.5 mg QHS PO Last administered on 05/14/18at 21:13; Start 05/12/18 at 21:00; Stop 05/15/18 at 14:11; Status DC Mirtazapine (Remeron) 30 mg QHS PO Last administered on 05/24/18 20:43; Start 05/15/18 at 21:00 Non-Formulary Medication ( See Comment Field Below ) SEE COMMENTS SECTION 1T@10 XX ; Start 05/25/18 at 10:00; Stop 05/25/18 at 10:00; Status DC Non-Formulary Medication ( See Comment Field Below ) SEE LABEL COMMENTS DAILY XX ; Start 05/23/18 at 09:00; Stop 05/23/18 at 12:56; Status DC Olanzapine (ZyPREXA) 10 mg BID PO Last administered on 05/15/18at 08:26; Start 05/15/18 at 09:00; Stop 05/15/18 at 14:31; Status DC Olanzapine (ZyPREXA) 10 mg QHS PO Last administered on 05/13/18at 20:33; Start 05/12/18 at 21:00; Stop 05/14/18 at 21:05; Status DC Oxcarbazepine (Trileptal) 600 mg QHS PO Last administered on 05/24/18 20:43; Start 05/12/18 at 21:00 Risperidone (RisperDAL) 1 mg TID PO Last administered on 05/25/18 08:13; Start 05/15/18 at 16:00 Sertraline HCl (Zoloft) 25 mg QAM PO Last administered on 05/18/18at 08:55; Start 05/16/18 at 09:00; Stop 05/18/18 at 14:28; Status DC Sertraline HCl (Zoloft) 50 mg QAM PO Last administered on 05/19/18at 08:58; Start 05/19/18 at 09:00; Stop 05/19/18 at 14:55; Status DC Sertraline HCl (Zoloft) 75 mg QAM PO Last administered on 05/20/18 08:16; Start 05/20/18 at 09:00; Stop 05/20/18 at 15:46; Status DC Sertraline HCl (Zoloft) 100 mg QAM PO Last administered on 2/4/19at 08:46; Start 05/21/18 at 09:00; Stop 05/23/18 at 11:20; Status DC Sertraline HCl (Zoloft) 125 mg QAM PO Last administered on 05/25/18 08:12; Start 05/24/18 at 09:00 Trazodone HCl (Desyrel) 50 mg QHSP PRN PO INSOMNIA Last administered on 05/16/18at 22:43; Start 05/12/18 at 18:15 Allergies Coded Allergies: Penicillins (Verified Allergy, Unknown, 07/19/12) Penicillins Cross Reactors (Verified Allergy, Unknown, 07/19/12) GME ATTESTATION GME ATTESTATION My faculty preceptor for this patient encounter was physically present during the encounter and was fully available. All aspects of the patient interview, examination, medical decision making process, and medical care plan development were reviewed and approved by the faculty preceptor. The faculty preceptor is aware and concurs with the plan as stated in the body of this note and will attest to such by his/her cosignature. NATHALY HUANG OMS-III May 25, 2018 09:03
[2018-05-25] MEDS ORDERED: PPD DOCUMENTATION ENTRY MISC XX SCH (10:00)
[2018-05-25] MEDS ORDERED: PPD DOCUMENTATION ENTRY MISC XX ONE (13:00)
[2018-05-25 18:00] VITALS: BP 110/66
[2018-05-25] MEDS: MIRTAZAPINE 15 MG TAB PO SCH (21:45)
[2018-05-25] MEDS: ATORVASTATIN 20 MG TAB PO SCH (21:46)
[2018-05-25] MEDS: OXcarbazepine 300 MG TAB PO SCH (21:46)
[2018-05-26] MEDS: LEVOTHYROXINE 100MCG TABLET (0.1MG) PO SCH (05:52)
[2018-05-26 06:18] VITALS: BP 139/87
[2018-05-26] MEDS: HumaLOG INSULIN (NovoLOG) PER UNIT SC SCH ×4 (07:30→21:00)
[2018-05-26] MEDS: metFORMIN (GLUCOPHAGE) 1000 MG TABLET PO SCH ×2 (08:49→17:04)
--- NOTE | 2018-05-26 09:09 | MHIPNPDOC ---
[facility] Progress Note Progress Note DATE OF SERVICE: 05/26/18 HISTORY OF THE PRESENT ILLNESS: as per ED report: "Pt states he had a friend drive him to the ED due to increased depression & SI with a plan to OD. Pt states that last night he had SI with a plan to OD. He reports increasing depression over the past few days. He stopped taking his meds because he was having side effects. Pt's main stressor is his living situation. He lives with his boss & does not think it is a good living environment for him. Pt reports poor sleep, poor appetite, poor motivation. VITAL SIGNS: See below. NEW TEST RESULTS: See below CURRENT MEDICATIONS: See below. MENTAL STATUS EXAMINATION: Patient is a 47-year old male, who is alert, disheveled, unkempt, dressed in his personal clothes, without lip smacking. No eye contact. Interviewed laying in bed with constant leg and hand movements. Speech: Is rapid, short, decreased volume and monotone. Language skills are fair. Thought processes including: circumstantial, tangential, limited Thought content: depressive and anxious thoughts. Denies homicidal ideation, reports suicidal thoughts, fleeting, passive. Denies auditory and visual hallucinations and denies thought delusions Description of associations: Associative. Description of abnormal or psychotic thoughts: denies auditory and visual hallucinations and denies thought delusions Judgment: poor Insight: Poor. Orientation: Poor. Recent and remote memory: Limited. Attention span and concentration: Fair. Fund of knowledge: Average. Mood: Anxious and depressed. Affect: Flat, constricted, Congruent with mood. DIAGNOSES: 1. Bipolar disorder, mixed 2. Generalized anxiety disorder. ASSESSMENT: Patient was interviewed this morning while laying in bed. He made very little eye contact and the majority of time his eyes were closed. He says he is much more depressed today and he does not recall a particular event that made him become more depressed again today. He says that yesterday he kept his deal with the program services planner and was out of bed all day and went to all the groups and felt better. He says the best part of yesterday was "talking to people who have problems like me." Has fleeting suicidal ideations, no homicidal ideations, no paranoia, no psychosis. MANAGEMENT PLAN: Continue Risperdal 1 mg PO TID, Remeron 30 mg PO QHS, increase Zoloft to 125 mg PO daily and Cogentin 1 mg PO TID. Start Abilify 2 mgs PO QAM Vital Signs Vital Signs Date Time Temp Pulse Resp B/P (MAP) Pulse Ox O2 Delivery O2 Flow Rate FiO2 05/26/18 06:18 97.1 77 14 139/87 (104) 05/22/18 18:00 94 Laboratory Data 24H Labs Laboratory Tests 2 05/25/18 11:57: Bedside Glucose (Misc Panel) 134H 05/25/18 16:52: Bedside Glucose (Misc Panel) 176H 05/25/18 21:42: Bedside Glucose (Misc Panel) 102 05/26/18 05:56: Bedside Glucose (Misc Panel) 94 Current Medications Current Medications Acetaminophen (Tylenol Tab) 650 mg Q6HP PRN PO HEADACHE or DISCOMFORT; Start 05/12/18 at 18:15 Al Hydrox/Mg Hydrox/Simethicone (Mylanta) 30 ml Q4HP PRN PO HEARTBURN/INDIGESTION; Start 05/12/18 at 18:15 Aripiprazole (AbiLIFY) 2 mg QAM PO Last administered on 05/23/18 08:46; Start 05/21/18 at 09:00; Stop 05/23/18 at 11:20; Status DC Aripiprazole (AbiLIFY) 2.5 mg BID PO Last administered on 05/25/18at 21:44; Start 05/23/18 at 21:00 Atorvastatin Calcium (Lipitor) 20 mg QHS PO Last administered on 05/25/18 21:46; Start 05/12/18 at 21:00 Benztropine Mesylate (Cogentin) 1 mg BID PO Last administered on 05/15/18at 08:26; Start 05/13/18 at 09:00; Stop 05/15/18 at 14:22; Status DC Benztropine Mesylate (Cogentin) 1 mg TID PO Last administered on 05/25/18at 21:46; Start 05/15/18 at 16:00 Dextrose (Dextrose 50%) 25 ml ASDIRECTED PRN IV SEE LABEL COMMENTS; Start 05/12/18 at 20:30 Doxepin HCl (SINEquan) 50 mg QHS PO Last administered on 05/14/18at 21:13; Start 05/12/18 at 21:00; Stop 05/15/18 at 14:11; Status DC Fluoxetine HCl (PROzac) 10 mg DAILY PO Last administered on 05/14/18at 08:09; Start 05/13/18 at 09:00; Stop 05/14/18 at 21:05; Status DC Fluoxetine HCl (PROzac) 20 mg DAILY PO Last administered on 05/15/18at 08:26; Start 05/15/18 at 09:00; Stop 05/15/18 at 14:08; Status DC Gabapentin (Neurontin) 600 mg BID PO Last administered on 05/25/18at 21:46; Start 05/12/18 at 21:00 Glucagon (Glucagon) 1 mg ASDIRECTED PRN SC SEE LABEL COMMENTS; Start 05/12/18 at 20:30 Glucose (Glucose) 16 GM ASDIRECTED PRN PO SEE LABEL COMMENTS; Start 05/12/18 at 20:30 Home Med (Med Rec Complete!) ASDIRECTED XX ; Start 05/12/18 at 17:45; Stop 05/12/18 at 17:47; Status DC Insulin Human Lispro (HumaLOG INSULIN) See Protocol Table AC SC Last administered on 05/25/18at 16:55; Start 05/13/18 at 07:30 Insulin Human Lispro (HumaLOG INSULIN) See Protocol Table QHS SC ; Start 05/12/18 at 21:00 Levothyroxine Sodium (Synthroid) 100 mcg DAILY@0600 PO Last administered on 05/26/18at 05:52; Start 05/13/18 at 06:00 Lisinopril (Prinivil) 5 mg DAILY PO Last administered on 05/25/18at 08:16; Start 05/12/18 at 20:30 Magnesium Hydroxide (Milk Of Magnesia) 30 ml DAILYPRN PRN PO CONSTIPATION; Start 05/12/18 at 18:15 Metformin HCl (Glucophage) 1,000 mg BID@08,18 PO Last administered on 05/26/18at 08:49; Start 05/13/18 at 18:00 Mirtazapine (Remeron) 7.5 mg QHS PO Last administered on 05/14/18at 21:13; Start 05/12/18 at 21:00; Stop 05/15/18 at 14:11; Status DC Mirtazapine (Remeron) 30 mg QHS PO Last administered on 05/25/18at 21:45; Start 05/15/18 at 21:00 Non-Formulary Medication ( See Comment Field Below ) SEE COMMENTS SECTION 1T@10 XX ; Start 05/25/18 at 10:00; Stop 05/25/18 at 10:00; Status DC Non-Formulary Medication ( See Comment Field Below ) SEE LABEL COMMENTS DAILY XX ; Start 05/23/18 at 09:00; Stop 05/23/18 at 12:56; Status DC Olanzapine (ZyPREXA) 10 mg BID PO Last administered on 05/15/18at 08:26; Start 05/15/18 at 09:00; Stop 05/15/18 at 14:31; Status DC Olanzapine (ZyPREXA) 10 mg QHS PO Last administered on 05/13/18at 20:33; Start 05/12/18 at 21:00; Stop 05/14/18 at 21:05; Status DC Oxcarbazepine (Trileptal) 600 mg QHS PO Last administered on 05/25/18at 21:46; Start 05/12/18 at 21:00 Risperidone (RisperDAL) 1 mg TID PO Last administered on 05/25/18at 21:45; Start 05/15/18 at 16:00 Sertraline HCl (Zoloft) 25 mg QAM PO Last administered on 05/18/18at 08:55; Start 05/16/18 at 09:00; Stop 05/18/18 at 14:28; Status DC Sertraline HCl (Zoloft) 50 mg QAM PO Last administered on 05/19/18at 08:58; Start 05/19/18 at 09:00; Stop 05/19/18 at 14:55; Status DC Sertraline HCl (Zoloft) 75 mg QAM PO Last administered on 05/20/18at 08:16; Start 05/20/18 at 09:00; Stop 05/20/18 at 15:46; Status DC Sertraline HCl (Zoloft) 100 mg QAM PO Last administered on 05/23/18at 08:46; Start 05/21/18 at 09:00; Stop 05/23/18 at 11:20; Status DC Sertraline HCl (Zoloft) 125 mg QAM PO Last administered on 05/25/18at 08:12; Start 05/24/18 at 09:00 Trazodone HCl (Desyrel) 50 mg QHSP PRN PO INSOMNIA Last administered on 05/16/18at 22:43; Start 05/12/18 at 18:15 Allergies Coded Allergies: Penicillins (Verified Allergy, Unknown, 07/19/12) Penicillins Cross Reactors (Verified Allergy, Unknown, 07/19/12) GME ATTESTATION GME ATTESTATION My faculty preceptor for this patient encounter was physically present during the encounter and was fully available. All aspects of the patient interview, examination, medical decision making process, and medical care plan development were reviewed and approved by the faculty preceptor. The faculty preceptor is aware and concurs with the plan as stated in the body of this note and will attest to such by his/her cosignature. NATHALY HUANG OMS-III May 26, 2018 09:09
[2018-05-26] MEDS: PILL CRUSHER/CUTTER 1 EACH XX PRN (09:18)
[2018-05-26] MEDS: risperiDONE 1 MG TAB PO SCH ×3 (09:19→20:01)
[2018-05-26] MEDS: SERTRALINE HCL 50 MG TAB PO SCH (09:19)
[2018-05-26] MEDS: LISINOPRIL 5 MG TAB PO SCH (09:19)
[2018-05-26] MEDS: GABAPENTIN 300 MG CAP PO SCH ×2 (09:19→20:01)
[2018-05-26] MEDS: BENZTROPINE 1 MG TAB PO SCH ×3 (09:19→20:01)
[2018-05-26 18:00] VITALS: BP 109/61
[2018-05-26] MEDS: ATORVASTATIN 20 MG TAB PO SCH (20:01)
[2018-05-26] MEDS: OXcarbazepine 300 MG TAB PO SCH (20:01)
[2018-05-26] MEDS: MIRTAZAPINE 15 MG TAB PO SCH (20:02)
[2018-05-27] MEDS: LEVOTHYROXINE 100MCG TABLET (0.1MG) PO SCH (06:29)
[2018-05-27 06:33] VITALS: BP 147/77
[2018-05-27] MEDS: HumaLOG INSULIN (NovoLOG) PER UNIT SC SCH ×4 (06:54→20:46)
[2018-05-27] MEDS: metFORMIN (GLUCOPHAGE) 1000 MG TABLET PO SCH ×2 (07:28→17:14)
[2018-05-27] MEDS: SERTRALINE HCL 50 MG TAB PO SCH (08:11)
[2018-05-27] MEDS: LISINOPRIL 5 MG TAB PO SCH (08:11)
[2018-05-27] MEDS: GABAPENTIN 300 MG CAP PO SCH ×2 (08:12→20:44)
[2018-05-27] MEDS: risperiDONE 1 MG TAB PO SCH ×3 (08:12→20:44)
[2018-05-27] MEDS: BENZTROPINE 1 MG TAB PO SCH ×3 (08:12→20:44)
--- NOTE | 2018-05-27 09:24 | MHIPNPDOC ---
[facility] Progress Note Progress Note DATE OF SERVICE: 05/27/18 HISTORY OF THE PRESENT ILLNESS: as per ED report: "Pt states he had a friend drive him to the ED due to increased depression & SI with a plan to OD. Pt states that last night he had SI with a plan to OD. He reports increasing depression over the past few days. He stopped taking his meds because he was having side effects. Pt's main stressor is his living situation. He lives with his boss & does not think it is a good living environment for him. Pt reports poor sleep, poor appetite, poor motivation. VITAL SIGNS: See below. NEW TEST RESULTS: See below CURRENT MEDICATIONS: See below. MENTAL STATUS EXAMINATION: Patient is a 47-year old male, who is alert, disheveled, unkempt, dressed in his personal clothes, without lip smacking. Better interactions, average eye contact. Got up from bed to be interviewed. Speech: Is less rapid, less short, decreased volume and monotone. Language skills are fair. Thought processes including: circumstantial, tangential, limited Thought content: depressive and anxious thoughts. Denies homicidal ideation, rep orts suicidal thoughts, fleeting, passive. Denies auditory and visual hallucinations and denies thought delusions Description of associations: Associative. Description of abnormal or psychotic thoughts: denies auditory and visual hallucinations and denies thought delusions Judgment: poor Insight: Poor. Orientation: Poor. Recent and remote memory: Limited. Attention span and concentration: Fair. Fund of knowledge: Average. Mood: Anxious and depressed. Affect: Flat, constricted, Congruent with mood. DIAGNOSES: 1. Bipolar disorder, mixed 2. Generalized anxiety disorder. ASSESSMENT: Patient was interviewed this morning. He was lying in the bed but when I approached he immediately got up, put on his glasses, and was engaged in the conversation. He says that his depression feels better today then yesterday. He reports having a hard time with concentration but says that has been going on for months. Refugio talked about his fear of becoming "high." He says last month while at [facility] he was on a high and "singing in the halls" and "ripping the doors off of the plaster." He says he feels worse when he is depressed but is more afraid of being manic. He does not feel like he is going to become manic but that is a fear he has because he does not want to feel that way. He plans to attend groups and read his history book today, trying to avoid sleeping all day. Has fleeting suicidal ideations, no homicidal ideations, no paranoia, no psychosis. MANAGEMENT PLAN: Continue Risperdal 1 mg PO TID, Remeron 30 mg PO QHS, increase Zoloft to 125 mg PO daily and Cogentin 1 mg PO TID. Start Abilify 2 mgs PO QAM Vital Signs Vital Signs Date Time Temp Pulse Resp B/P (MAP) Pulse Ox O2 Delivery O2 Flow Rate FiO2 05/27/18 08:11 135/85 05/27/18 06:33 97.6 65 18 05/22/18 18:00 94 Laboratory Data 24H Labs Laboratory Tests 2 05/26/18 12:07: Bedside Glucose (Misc Panel) 124H 05/26/18 17:04: Bedside Glucose (Misc Panel) 101 05/26/18 20:13: Bedside Glucose (Misc Panel) 123H 05/27/18 06:27: Bedside Glucose (Misc Panel) 93 Current Medications Current Medications Acetaminophen (Tylenol Tab) 650 mg Q6HP PRN PO HEADACHE or DISCOMFORT; Start 05/12/18 at 18:15 Al Hydrox/Mg Hydrox/Simethicone (Mylanta) 30 ml Q4HP PRN PO HEARTBURN/INDIGESTION; Start 05/12/18 at 18:15 Aripiprazole (AbiLIFY) 2 mg QAM PO Last administered on 05/23/18at 08:46; Start 05/21/18 at 09:00; Stop 05/23/18 at 11:20; Status DC Aripiprazole (AbiLIFY) 2.5 mg BID PO Last administered on 05/27/18at 08:11; Start 05/23/18 at 21:00 Atorvastatin Calcium (Lipitor) 20 mg QHS PO Last administered on 05/26/18at 20:01; Start 05/12/18 at 21:00 Benztropine Mesylate (Cogentin) 1 mg BID PO Last administered on 05/15/18at 08:26; Start 05/13/18 at 09:00; Stop 05/15/18 at 14:22; Status DC Benztropine Mesylate (Cogentin) 1 mg TID PO Last administered on 05/27/18at 08:12; Start 05/15/18 at 16:00 Dextrose (Dextrose 50%) 25 ml ASDIRECTED PRN IV SEE LABEL COMMENTS; Start 05/12/18 at 20:30 Doxepin HCl (SINEquan) 50 mg QHS PO Last administered on 05/14/18at 21:13; Start 05/12/18 at 21:00; Stop 05/15/18 at 14:11; Status DC Fluoxetine HCl (PROzac) 10 mg DAILY PO Last administered on 05/14/18at 08:09; Start 05/13/18 at 09:00; Stop 05/14/18 at 21:05; Status DC Fluoxetine HCl (PROzac) 20 mg DAILY PO Last administered on 05/15/18at 08:26; Start 05/15/18 at 09:00; Stop 05/15/18 at 14:08; Status DC Gabapentin (Neurontin) 600 mg BID PO Last administered on 05/27/18at 08:12; Start 05/12/18 at 21:00 Glucagon (Glucagon) 1 mg ASDIRECTED PRN SC SEE LABEL COMMENTS; Start 05/12/18 at 20:30 Glucose (Glucose) 16 GM ASDIRECTED PRN PO SEE LABEL COMMENTS; Start 05/12/18 at 20:30 Home Med (Med Rec Complete!) ASDIRECTED XX ; Start 05/12/18 at 17:45; Stop 05/12/18 at 17:47; Status DC Insulin Human Lispro (HumaLOG INSULIN) See Protocol Table AC SC Last administered on 05/26/18at 12:09; Start 05/13/18 at 07:30 Insulin Human Lispro (HumaLOG INSULIN) See Protocol Table QHS SC ; Start 05/12/18 at 21:00 Levothyroxine Sodium (Synthroid) 100 mcg DAILY@0600 PO Last administered on 05/27/18at 06:29; Start 05/13/18 at 06:00 Lisinopril (Prinivil) 5 mg DAILY PO Last administered on 05/27/18at 08:11; Start 05/12/18 at 20:30 Magnesium Hydroxide (Milk Of Magnesia) 30 ml DAILYPRN PRN PO CONSTIPATION; Start 05/12/18 at 18:15 Metformin HCl (Glucophage) 1,000 mg BID@08,18 PO Last administered on 05/27/18at 07:28; Start 05/13/18 at 18:00 Mirtazapine (Remeron) 7.5 mg QHS PO Last administered on 05/14/18at 21:13; Start 05/12/18 at 21:00; Stop 05/15/18 at 14:11; Status DC Mirtazapine (Remeron) 30 mg QHS PO Last administered on 05/26/18at 20:02; Start 05/15/18 at 21:00 Non-Formulary Medication ( See Comment Field Below ) SEE COMMENTS SECTION 1T@10 XX ; Start 05/25/18 at 10:00; Stop 05/25/18 at 10:00; Status DC Non-Formulary Medication ( See Comment Field Below ) SEE LABEL COMMENTS DAILY XX ; Start 05/23/18 at 09:00; Stop 05/23/18 at 12:56; Status DC Olanzapine (ZyPREXA) 10 mg BID PO Last administered on 05/15/18at 08:26; Start 05/15/18 at 09:00; Stop 05/15/18 at 14:31; Status DC Olanzapine (ZyPREXA) 10 mg QHS PO Last administered on 05/13/18at 20:33; Start 05/12/18 at 21:00; Stop 05/14/18 at 21:05; Status DC Oxcarbazepine (Trileptal) 600 mg QHS PO Last administered on 05/26/18 20:01; Start 05/12/18 at 21:00 Risperidone (RisperDAL) 1 mg TID PO Last administered on 05/27/18at 08:12; Start 05/15/18 at 16:00 Sertraline HCl (Zoloft) 25 mg QAM PO Last administered on 05/18/18at 08:55; Start 05/16/18 at 09:00; Stop 05/18/18 at 14:28; Status DC Sertraline HCl (Zoloft) 50 mg QAM PO Last administered on 05/19/18at 08:58; Start 05/19/18 at 09:00; Stop 05/19/18 at 14:55; Status DC Sertraline HCl (Zoloft) 75 mg QAM PO Last administered on 05/20/18at 08:16; Start 05/20/18 at 09:00; Stop 05/20/18 at 15:46; Status DC Sertraline HCl (Zoloft) 100 mg QAM PO Last administered on 05/23/18at 08:46; Start 05/21/18 at 09:00; Stop 05/23/18 at 11:20; Status DC Sertraline HCl (Zoloft) 125 mg QAM PO Last administered on 05/27/18at 08:11; Start 05/24/18 at 09:00 Trazodone HCl (Desyrel) 50 mg QHSP PRN PO INSOMNIA Last administered on 05/16/18at 22:43; Start 05/12/18 at 18:15 Allergies Coded Allergies: Penicillins (Verified Allergy, Unknown, 07/19/12) Penicillins Cross Reactors (Verified Allergy, Unknown, 07/19/12) GME ATTESTATION GME ATTESTATION My faculty preceptor for this patient encounter was physically present during the encounter and was fully available. All aspects of the patient interview, examination, medical decision making process, and medical care plan development were reviewed and approved by the faculty preceptor. The faculty preceptor is aware and concurs with the plan as stated in the body of this note and will attest to such by his/her cosignature. NATHALY HUANG OMS-III May 27, 2018 09:24
[2018-05-27 18:00] VITALS: BP 116/62
[2018-05-27] MEDS: OXcarbazepine 300 MG TAB PO SCH (20:44)
[2018-05-27] MEDS: ATORVASTATIN 20 MG TAB PO SCH (20:44)
[2018-05-27] MEDS: PILL CRUSHER/CUTTER 1 EACH XX PRN (20:44)
[2018-05-27] MEDS: MIRTAZAPINE 15 MG TAB PO SCH (20:44)
[2018-05-28] MEDS: LEVOTHYROXINE 100MCG TABLET (0.1MG) PO SCH (05:59)
[2018-05-28 06:00] VITALS: BP 127/81
[2018-05-28] MEDS: HumaLOG INSULIN (NovoLOG) PER UNIT SC SCH ×4 (06:38→21:00)
[2018-05-28] MEDS: SERTRALINE HCL 50 MG TAB PO SCH (08:24)
[2018-05-28] MEDS: BENZTROPINE 1 MG TAB PO SCH ×3 (08:24→21:34)
[2018-05-28] MEDS: risperiDONE 1 MG TAB PO SCH ×3 (08:24→21:34)
[2018-05-28] MEDS: metFORMIN (GLUCOPHAGE) 1000 MG TABLET PO SCH ×2 (08:24→17:05)
[2018-05-28] MEDS: GABAPENTIN 300 MG CAP PO SCH ×2 (08:24→21:34)
[2018-05-28] MEDS: LISINOPRIL 5 MG TAB PO SCH (08:25)
[2018-05-28 18:00] VITALS: BP 126/75
[2018-05-28] MEDS: MIRTAZAPINE 15 MG TAB PO SCH (21:33)
[2018-05-28] MEDS: OXcarbazepine 300 MG TAB PO SCH (21:33)
[2018-05-28] MEDS: ATORVASTATIN 20 MG TAB PO SCH (21:34)
[2018-05-29 06:00] VITALS: BP 142/95
[2018-05-29] MEDS: LEVOTHYROXINE 100MCG TABLET (0.1MG) PO SCH (06:05)
[2018-05-29] MEDS: HumaLOG INSULIN (NovoLOG) PER UNIT SC SCH ×4 (06:21→20:20)
[2018-05-29] MEDS: metFORMIN (GLUCOPHAGE) 1000 MG TABLET PO SCH ×2 (08:46→17:03)
[2018-05-29] MEDS: GABAPENTIN 300 MG CAP PO SCH ×2 (08:47→20:19)
[2018-05-29] MEDS: SERTRALINE HCL 50 MG TAB PO SCH (08:47)
[2018-05-29] MEDS: risperiDONE 1 MG TAB PO SCH ×3 (08:47→20:19)
[2018-05-29] MEDS: BENZTROPINE 1 MG TAB PO SCH ×3 (08:47→20:19)
[2018-05-29] MEDS: LISINOPRIL 5 MG TAB PO SCH (08:48)
[2018-05-29 18:00] VITALS: BP 122/62
[2018-05-29] MEDS: MIRTAZAPINE 15 MG TAB PO SCH (20:18)
[2018-05-29] MEDS: OXcarbazepine 300 MG TAB PO SCH (20:19)
[2018-05-29] MEDS: ATORVASTATIN 20 MG TAB PO SCH (20:19)
[2018-05-30] MEDS: LEVOTHYROXINE 100MCG TABLET (0.1MG) PO SCH (06:09)
[2018-05-30 06:15] VITALS: BP 146/82
[2018-05-30] MEDS: HumaLOG INSULIN (NovoLOG) PER UNIT SC SCH ×4 (06:28→20:27)
[2018-05-30] MEDS: LISINOPRIL 5 MG TAB PO SCH (09:29)
[2018-05-30] MEDS: SERTRALINE HCL 50 MG TAB PO SCH (09:29)
[2018-05-30] MEDS: GABAPENTIN 300 MG CAP PO SCH ×2 (09:29→20:30)
[2018-05-30] MEDS: metFORMIN (GLUCOPHAGE) 1000 MG TABLET PO SCH ×2 (09:29→18:05)
[2018-05-30] MEDS: BENZTROPINE 1 MG TAB PO SCH ×3 (09:29→20:30)
[2018-05-30] MEDS: risperiDONE 1 MG TAB PO SCH ×3 (09:29→20:30)
[2018-05-30] MEDS: FLUoxetine 10 MG CAP PO SCH (10:06)
--- NOTE | 2018-05-30 14:29 | MHIPNPDOC ---
[facility] Progress Note Progress Note DATE OF SERVICE: 05/30/18 HISTORY OF THE PRESENT ILLNESS: as per ED report: "Pt states he had a friend drive him to the ED due to increased depression & SI with a plan to OD. Pt states that last night he had SI with a plan to OD. He reports increasing depression over the past few days. He stopped taking his meds because he was having side effects. Pt's main stressor is his living situation. He lives with his boss & does not think it is a good living environment for him. Pt reports poor sleep, poor appetite, poor motivation. VITAL SIGNS: See below. NEW TEST RESULTS: See below CURRENT MEDICATIONS: See below. MENTAL STATUS EXAMINATION: Patient is a 47-year old male, who is alert, disheveled, unkempt, dressed in his personal clothes, without lip smacking. Laying in bed with eyes closed throughout interview. Speech: rapid, short, decreased volume and monotone. Language skills are fair. Thought processes including: circumstantial, tangential, limited Thought content: depressive and anxious thoughts. Denies homicidal ideation, reports suicidal thoughts, fleeting, passive. Denies auditory and visual hallucinations and denies thought delusions Description of associations: Associative. Description of abnormal or psychotic thoughts: denies auditory and visual hallucinations and denies thought delusions Judgment: poor Insight: Poor. Orientation: Poor. Recent and remote memory: Limited. Attention span and concentration: Fair. Fund of knowledge: Average. Mood: Anxious and depressed. Affect: Flat, constricted, Congruent with mood. DIAGNOSES: 1. Bipolar disorder, mixed 2. Generalized anxiety disorder. ASSESSMENT: Patient was interviewed this morning while laying in bed, he had his eyes closed throughout. When asked how he was doing he said "my mind and thoughts are racing." He further explained that all he can think about are "all the bad things he has done in life." He denies feeling manic. He reports being more anxious and rates his depression as a 5-6/10. He has just been laying in bed and thinking of all the bad things. He went to some groups yesterday and we set the goal to go back to them today. He did not sleep well yesterday. Has fleeting suicidal ideations, no homicidal ideations, no paranoia, no psychosis. Vital Signs Vital Signs Date Time Temp Pulse Resp B/P (MAP) Pulse Ox O2 Delivery O2 Flow Rate FiO2 05/30/18 09:29 166/91 05/30/18 06:15 97.3 79 14 Laboratory Data 24H Labs Laboratory Tests 2 05/29/18 17:01: Bedside Glucose (Misc Panel) 105 05/29/18 20:16: Bedside Glucose (Misc Panel) 123H 05/30/18 06:27: Bedside Glucose (Misc Panel) 106H 05/30/18 12:00: Bedside Glucose (Misc Panel) 134H Current Medications Current Medications Acetaminophen (Tylenol Tab) 650 mg Q6HP PRN PO HEADACHE or DISCOMFORT; Start 05/12/18 at 18:15 Al Hydrox/Mg Hydrox/Simethicone (Mylanta) 30 ml Q4HP PRN PO HEARTBURN/INDIGESTION; Start 05/12/18 at 18:15 Aripiprazole (AbiLIFY) 2 mg QAM PO Last administered on 05/23/18at 08:46; Start 05/21/18 at 09:00; Stop 05/23/18 at 11:20; Status DC Aripiprazole (AbiLIFY) 2.5 mg BID PO Last administered on 05/30/18at 09:30; Start 05/23/18 at 21:00; Stop 05/30/18 at 10:57; Status DC Aripiprazole (AbiLIFY) 7.5 mg BID PO ; Start 05/30/18 at 21:00 Atorvastatin Calcium (Lipitor) 20 mg QHS PO Last administered on 05/29/18at 20:19; Start 05/12/18 at 21:00 Benztropine Mesylate (Cogentin) 1 mg BID PO Last administered on 05/15/18at 08:26; Start 05/13/18 at 09:00; Stop 05/15/18 at 14:22; Status DC Benztropine Mesylate (Cogentin) 1 mg TID PO Last administered on 05/30/18at 09:29; Start 05/15/18 at 16:00 Dextrose (Dextrose 50%) 25 ml ASDIRECTED PRN IV SEE LABEL COMMENTS; Start 05/12/18 at 20:30 Doxepin HCl (SINEquan) 50 mg QHS PO Last administered on 05/14/18at 21:13; Start 05/12/18 at 21:00; Stop 05/15/18 at 14:11; Status DC Fluoxetine HCl (PROzac) 10 mg DAILY PO Last administered on 05/14/18at 08:09; Start 05/13/18 at 09:00; Stop 05/14/18 at 21:05; Status DC Fluoxetine HCl (PROzac) 20 mg DAILY PO Last administered on 05/15/18at 08:26; Start 05/15/18 at 09:00; Stop 05/15/18 at 14:08; Status DC Fluoxetine HCl (PROzac) 30 mg QAM PO Last administered on 05/30/18at 10:06; Start 05/30/18 at 09:00 Gabapentin (Neurontin) 600 mg BID PO Last administered on 05/30/18at 09:29; Start 05/12/18 at 21:00 Glucagon (Glucagon) 1 mg ASDIRECTED PRN SC SEE LABEL COMMENTS; Start 05/12/18 at 20:30 Glucose (Glucose) 16 GM ASDIRECTED PRN PO SEE LABEL COMMENTS; Start 05/12/18 at 20:30 Home Med (Med Rec Complete!) ASDIRECTED XX ; Start 05/12/18 at 17:45; Stop 05/12/18 at 17:47; Status DC Insulin Human Lispro (HumaLOG INSULIN) See Protocol Table AC SC Last administered on 05/30/18at 12:04; Start 05/13/18 at 07:30 Insulin Human Lispro (HumaLOG INSULIN) See Protocol Table QHS SC ; Start 05/12/18 at 21:00 Levothyroxine Sodium (Synthroid) 100 mcg DAILY@0600 PO Last administered on 05/30/18at 06:09; Start 05/13/18 at 06:00 Lisinopril (Prinivil) 5 mg DAILY PO Last administered on 05/30/18at 09:29; Start 05/12/18 at 20:30 Magnesium Hydroxide (Milk Of Magnesia) 30 ml DAILYPRN PRN PO CONSTIPATION; Start 05/12/18 at 18:15 Metformin HCl (Glucophage) 1,000 mg BID@08,18 PO Last administered on 05/30/18at 09:29; Start 05/13/18 at 18:00 Mirtazapine (Remeron) 7.5 mg QHS PO Last administered on 05/14/18at 21:13; Start 05/12/18 at 21:00; Stop 05/15/18 at 14:11; Status DC Mirtazapine (Remeron) 30 mg QHS PO Last administered on 05/29/18at 20:18; Start 05/15/18 at 21:00 Non-Formulary Medication ( See Comment Field Below ) SEE COMMENTS SECTION 1T@10 XX ; Start 05/25/18 at 10:00; Stop 05/25/18 at 10:00; Status DC Non-Formulary Medication ( See Comment Field Below ) SEE LABEL COMMENTS DAILY XX ; Start 05/23/18 at 09:00; Stop 05/23/18 at 12:56; Status DC Olanzapine (ZyPREXA) 10 mg BID PO Last administered on 05/15/18at 08:26; Start 05/15/18 at 09:00; Stop 05/15/18 at 14:31; Status DC Olanzapine (ZyPREXA) 10 mg QHS PO Last administered on 05/13/18at 20:33; Start 05/12/18 at 21:00; Stop 05/14/18 at 21:05; Status DC Oxcarbazepine (Trileptal) 600 mg QHS PO Last administered on 05/29/18 20:19; Start 05/12/18 at 21:00 Risperidone (RisperDAL) 1 mg TID PO Last administered on 05/30/18at 09:29; Start 05/15/18 at 16:00 Sertraline HCl (Zoloft) 25 mg QAM PO Last administered on 05/18/18at 08:55; Start 05/16/18 at 09:00; Stop 05/18/18 at 14:28; Status DC Sertraline HCl (Zoloft) 50 mg QAM PO Last administered on 05/19/18at 08:58; Start 05/19/18 at 09:00; Stop 05/19/18 at 14:55; Status DC Sertraline HCl (Zoloft) 75 mg QAM PO Last administered on 05/20/18at 08:16; Start 05/20/18 at 09:00; Stop 05/20/18 at 15:46; Status DC Sertraline HCl (Zoloft) 100 mg QAM PO Last administered on 2/4/19at 08:46; Start 05/21/18 at 09:00; Stop 05/23/18 at 11:20; Status DC Sertraline HCl (Zoloft) 125 mg QAM PO Last administered on 05/30/18at 09:29; Start 05/24/18 at 09:00; Stop 05/30/18 at 09:50; Status DC Trazodone HCl (Desyrel) 50 mg QHSP PRN PO INSOMNIA Last administered on 05/16/18at 22:43; Start 05/12/18 at 18:15 Allergies Coded Allergies: Penicillins (Verified Allergy, Unknown, 07/19/12) Penicillins Cross Reactors (Verified Allergy, Unknown, 07/19/12) GME ATTESTATION GME ATTESTATION My faculty preceptor for this patient encounter was physically present during the encounter and was fully available. All aspects of the patient interview, examination, medical decision making process, and medical care plan development were reviewed and approved by the faculty preceptor. The faculty preceptor is aware and concurs with the plan as stated in the body of this note and will attest to such by his/her cosignature. NATHALY HUANG OMS-III May 30, 2018 14:29
[2018-05-30 18:00] VITALS: BP 156/80
[2018-05-30] MEDS: ATORVASTATIN 20 MG TAB PO SCH (20:30)
[2018-05-30] MEDS: MIRTAZAPINE 15 MG TAB PO SCH (20:30)
[2018-05-30] MEDS: OXcarbazepine 300 MG TAB PO SCH (20:30)
[2018-05-31] MEDS: LEVOTHYROXINE 100MCG TABLET (0.1MG) PO SCH (05:35)
[2018-05-31] MEDS: HumaLOG INSULIN (NovoLOG) PER UNIT SC SCH ×4 (05:41→20:19)
[2018-05-31 06:00] VITALS: BP 151/79
--- NOTE | 2018-05-31 09:15 | MHIPNPDOC ---
[facility] Progress Note Progress Note DATE OF SERVICE: 05/31/18 HISTORY OF THE PRESENT ILLNESS: as per ED report: "Pt states he had a friend drive him to the ED due to increased depression & SI with a plan to OD. Pt states that last night he had SI with a plan to OD. He reports increasing depression over the past few days. He stopped taking his meds because he was having side effects. Pt's main stressor is his living situation. He lives with his boss & does not think it is a good living environment for him. Pt reports poor sleep, poor appetite, poor motivation. VITAL SIGNS: See below. NEW TEST RESULTS: See below CURRENT MEDICATIONS: See below. MENTAL STATUS EXAMINATION: Patient is a 47-year old male, who is alert, disheveled, unkempt, dressed in his personal clothes, without lip smacking. Poor eye contact Speech: very short, limited, rapid, decreased volume, monotone. Language skills are fair. Thought processes including: circumstantial, tangential, limited Thought content: depressive and anxious thoughts. Denies homicidal ideation, reports suicidal thoughts, fleeting, passive. Denies auditory and visual hallucinations and denies thought delusions Description of associations: Associative. Description of abnormal or psychotic thoughts: denies auditory and visual hallucinations and denies thought delusions Judgment: poor Insight: Poor. Orientation: Poor. Recent and remote memory: poor short term memory. Attention span and concentration: Fair. Fund of knowledge: Average. Mood: Anxious and very depressed. Affect: Very flat, constricted, Congruent with mood. DIAGNOSES: 1. Bipolar disorder, mixed 2. Generalized anxiety disorder. ASSESSMENT: Patient was interviewed this morning in the office. When asked how he was doing he said "not good at all." He talks about his racing thoughts and further explained that all he can think about are "all the bad things I have done in life." He does not elaborate on what those thoughts are. He reports being more anxious and when asked how his depression is he answers "I don't know." He has just been laying in bed and thinking of all the bad things. We talked about trying to not just think of negative thoughts and he just responds to every question or comment with "I don't know." Has fleeting suicidal ideations, no homicidal ideations, no paranoia, no psychosis. He does have a new tremor in his R arm. He says that it could be from his anxiety. MANAGEMENT: d/c Risperidone d/c abilify start 50 mg BID of seroquel Decreased fluoxetine to 20 mg Decrease mirtazapine to 7.5 mg Stat ativan dose Vital Signs Vital Signs Date Time Temp Pulse Resp B/P (MAP) Pulse Ox O2 Delivery O2 Flow Rate FiO2 05/31/18 06:00 98.0 75 16 151/79 (103) Laboratory Data 24H Labs Laboratory Tests 2 05/30/18 12:00: Bedside Glucose (Misc Panel) 134H 05/30/18 16:59: Bedside Glucose (Misc Panel) 83 05/30/18 20:27: Bedside Glucose (Misc Panel) 116H 05/31/18 05:40: Bedside Glucose (Misc Panel) 96 Current Medications Current Medications Acetaminophen (Tylenol Tab) 650 mg Q6HP PRN PO HEADACHE or DISCOMFORT; Start 05/12/18 at 18:15 Al Hydrox/Mg Hydrox/Simethicone (Mylanta) 30 ml Q4HP PRN PO HEARTBURN/INDIGESTION; Start 05/12/18 at 18:15 Aripiprazole (AbiLIFY) 2 mg QAM PO Last administered on 05/23/18at 08:46; Start 05/21/18 at 09:00; Stop 05/23/18 at 11:20; Status DC Aripiprazole (AbiLIFY) 2.5 mg BID PO Last administered on 05/30/18at 09:30; Start 05/23/18 at 21:00; Stop 05/30/18 at 10:57; Status DC Aripiprazole (AbiLIFY) 7.5 mg BID PO Last administered on 05/30/18at 20:31; Start 05/30/18 at 21:00 Atorvastatin Calcium (Lipitor) 20 mg QHS PO Last administered on 05/30/18at 20:30; Start 05/12/18 at 21:00 Benztropine Mesylate (Cogentin) 1 mg BID PO Last administered on 05/15/18 08:26; Start 05/13/18 at 09:00; Stop 05/15/18 at 14:22; Status DC Benztropine Mesylate (Cogentin) 1 mg TID PO Last administered on 05/30/18at 20:30; Start 05/15/18 at 16:00 Dextrose (Dextrose 50%) 25 ml ASDIRECTED PRN IV SEE LABEL COMMENTS; Start 05/12/18 at 20:30 Doxepin HCl (SINEquan) 50 mg QHS PO Last administered on 05/14/18at 21:13; Start 05/12/18 at 21:00; Stop 05/15/18 at 14:11; Status DC Fluoxetine HCl (PROzac) 10 mg DAILY PO Last administered on 05/14/18at 08:09; Start 05/13/18 at 09:00; Stop 05/14/18 at 21:05; Status DC Fluoxetine HCl (PROzac) 20 mg DAILY PO Last administered on 05/15/18at 08:26; Start 05/15/18 at 09:00; Stop 05/15/18 at 14:08; Status DC Fluoxetine HCl (PROzac) 30 mg QAM PO Last administered on 05/30/18at 10:06; Start 05/30/18 at 09:00 Gabapentin (Neurontin) 600 mg BID PO Last administered on 05/30/18at 20:30; Start 05/12/18 at 21:00 Glucagon (Glucagon) 1 mg ASDIRECTED PRN SC SEE LABEL COMMENTS; Start 05/12/18 at 20:30 Glucose (Glucose) 16 GM ASDIRECTED PRN PO SEE LABEL COMMENTS; Start 05/12/18 at 20:30 Home Med (Med Rec Complete!) ASDIRECTED XX ; Start 05/12/18 at 17:45; Stop 05/12/18 at 17:47; Status DC Insulin Human Lispro (HumaLOG INSULIN) See Protocol Table AC SC Last administered on 05/30/18at 12:04; Start 05/13/18 at 07:30 Insulin Human Lispro (HumaLOG INSULIN) See Protocol Table QHS SC ; Start 05/12/18 at 21:00 Levothyroxine Sodium (Synthroid) 100 mcg DAILY@0600 PO Last administered on 05/31/18at 05:35; Start 05/13/18 at 06:00 Lisinopril (Prinivil) 5 mg DAILY PO Last administered on 05/30/18at 09:29; Start 05/12/18 at 20:30 Magnesium Hydroxide (Milk Of Magnesia) 30 ml DAILYPRN PRN PO CONSTIPATION; Start 05/12/18 at 18:15 Metformin HCl (Glucophage) 1,000 mg BID@08,18 PO Last administered on 05/30/18at 18:05; Start 05/13/18 at 18:00 Mirtazapine (Remeron) 7.5 mg QHS PO Last administered on 05/14/18at 21:13; Start 05/12/18 at 21:00; Stop 05/15/18 at 14:11; Status DC Mirtazapine (Remeron) 30 mg QHS PO Last administered on 05/30/18at 20:30; Start 05/15/18 at 21:00 Non-Formulary Medication ( See Comment Field Below ) SEE COMMENTS SECTION 1T@10 XX ; Start 05/25/18 at 10:00; Stop 05/25/18 at 10:00; Status DC Non-Formulary Medication ( See Comment Field Below ) SEE LABEL COMMENTS DAILY XX ; Start 05/23/18 at 09:00; Stop 05/23/18 at 12:56; Status DC Olanzapine (ZyPREXA) 10 mg BID PO Last administered on 05/15/18at 08:26; Start 05/15/18 at 09:00; Stop 05/15/18 at 14:31; Status DC Olanzapine (ZyPREXA) 10 mg QHS PO Last administered on 05/13/18at 20:33; Start 05/12/18 at 21:00; Stop 05/14/18 at 21:05; Status DC Oxcarbazepine (Trileptal) 600 mg QHS PO Last administered on 05/30/18at 20:30; Start 05/12/18 at 21:00 Risperidone (RisperDAL) 1 mg TID PO Last administered on 05/30/18 20:30; Start 05/15/18 at 16:00 Sertraline HCl (Zoloft) 25 mg QAM PO Last administered on 05/18/18at 08:55; Start 05/16/18 at 09:00; Stop 05/18/18 at 14:28; Status DC Sertraline HCl (Zoloft) 50 mg QAM PO Last administered on 05/19/18 08:58; Start 05/19/18 at 09:00; Stop 05/19/18 at 14:55; Status DC Sertraline HCl (Zoloft) 75 mg QAM PO Last administered on 05/20/18at 08:16; Start 05/20/18 at 09:00; Stop 05/20/18 at 15:46; Status DC Sertraline HCl (Zoloft) 100 mg QAM PO Last administered on 05/23/18at 08:46; Start 05/21/18 at 09:00; Stop 05/23/18 at 11:20; Status DC Sertraline HCl (Zoloft) 125 mg QAM PO Last administered on 05/30/18at 09:29; Start 05/24/18 at 09:00; Stop 05/30/18 at 09:50; Status DC Trazodone HCl (Desyrel) 50 mg QHSP PRN PO INSOMNIA Last administered on 05/16/18at 22:43; Start 05/12/18 at 18:15 Allergies Coded Allergies: Penicillins (Verified Allergy, Unknown, 07/19/12) Penicillins Cross Reactors (Verified Allergy, Unknown, 07/19/12) GME ATTESTATION GME ATTESTATION My faculty preceptor for this patient encounter was physically present during the encounter and was fully available. All aspects of the patient interview, examination, medical decision making process, and medical care plan development were reviewed and approved by the faculty preceptor. The faculty preceptor is aware and concurs with the plan as stated in the body of this note and will attest to such by his/her cosignature. NATHALY HUANG OMS-III May 31, 2018 09:15
[2018-05-31] MEDS: metFORMIN (GLUCOPHAGE) 1000 MG TABLET PO SCH ×2 (09:25→17:17)
[2018-05-31] MEDS: LISINOPRIL 5 MG TAB PO SCH (09:25)
[2018-05-31] MEDS: BENZTROPINE 1 MG TAB PO SCH ×3 (09:25→20:17)
[2018-05-31] MEDS: GABAPENTIN 300 MG CAP PO SCH ×2 (09:25→20:18)
[2018-05-31] MEDS: risperiDONE 1 MG TAB PO SCH (09:25)
[2018-05-31] MEDS: FLUoxetine 10 MG CAP PO SCH (09:25)
[2018-05-31] MEDS ORDERED: LORazepam 0.5 MG TAB PO STA (13:12)
--- NOTE | 2018-05-31 14:14 | REP ---
CT Head without contrast HISTORY: tremors COMPARISON: None There is no intraparenchymal hemorrhage, acute infarct, mass or midline shift. The ventricular system is normal in appearance. There is no extra cerebral collection. There is no fracture. The visualized sinuses are clear. IMPRESSION: There is no intracranial lesion. Electronically Signed by Steve Alicia MD 05/31/2018 02:06 P
[2018-05-31 18:00] VITALS: BP 161/87
[2018-05-31] MEDS: MIRTAZAPINE 7.5MG PER 1/2 TABLET PO SCH (20:17)
[2018-05-31] MEDS: ATORVASTATIN 20 MG TAB PO SCH (20:17)
[2018-05-31] MEDS: OXcarbazepine 300 MG TAB PO SCH (20:17)
[2018-05-31] MEDS: QUEtiapine FUMARATE 50 MG TAB PO SCH (20:17)
[2018-05-31] MEDS ORDERED: risperiDONE 1 MG TAB PO SCH (21:00)
[2018-06-01] MEDS: LEVOTHYROXINE 100MCG TABLET (0.1MG) PO SCH (06:06)
[2018-06-01] MEDS: HumaLOG INSULIN (NovoLOG) PER UNIT SC SCH ×4 (06:34→21:00)
[2018-06-01 06:40] VITALS: BP 138/85
[2018-06-01] MEDS: metFORMIN (GLUCOPHAGE) 1000 MG TABLET PO SCH ×2 (08:46→17:05)
[2018-06-01] MEDS ORDERED: FLUoxetine 20 MG CAP PO SCH (09:00)
--- NOTE | 2018-06-01 09:10 | MHIPNPDOC ---
[facility] Progress Note Progress Note DATE OF SERVICE: 06/01/18 HISTORY OF THE PRESENT ILLNESS: as per ED report: "Pt states he had a friend drive him to the ED due to increased depression & SI with a plan to OD. Pt states that last night he had SI with a plan to OD. He reports increasing depression over the past few days. He stopped taking his meds because he was having side effects. Pt's main stressor is his living situation. He lives with his boss & does not think it is a good living environment for him. Pt reports poor sleep, poor appetite, poor motivation. VITAL SIGNS: See below. NEW TEST RESULTS: See below CURRENT MEDICATIONS: See below. MENTAL STATUS EXAMINATION: Patient is a 47-year old male, who is alert, disheveled, unkempt, dressed in his personal clothes, without lip smacking. In bed with poor eye contact. Excessive blinking is present. Speech: very short, limited, rapid, decreased volume, monotone. Long pauses before answers. Language skills are fair. Thought processes including: circumstantial, tangential, limited Thought content: depressive and anxious thoughts. Denies homicidal ideation, reports suicidal thoughts, fleeting, passive. Denies auditory and visual hallucinations and denies thought delusions Description of associations: Associative. Description of abnormal or psychotic thoughts: denies auditory and visual hallucinations and denies thought delusions Judgment: poor Insight: Poor. Orientation: Poor. Recent and remote memory: poor short term memory. Attention span and concentration: Fair. Fund of knowledge: Average. Mood: Anxious and very depressed. Affect: Very flat and very constricted. DIAGNOSES: 1. Bipolar disorder, mixed 2. Generalized anxiety disorder. ASSESSMENT: Patient was interviewed this morning in the his bed. When asked how he was doing he said "really bad" and he does not want to talk much. Refugio answers most questions with "I don't know", including how he answered how his depression was doing today. Lots of profound long pauses between questions and his answers. When asked about suicidal ideations he says "I don't know" but has had fleeting passive ideations since admission, no homicidal ideations, no paranoia, no psychosis. He does have excessive blinking. MANAGEMENT: fluoxetine to 20 mg PO QAM mirtazapine to 7.5 mg PO QHS seroquel 50 mg PO BID cogentin 1 mg PO TID gabapentin 600 mg PO BID Trileptal 600 mg PO QHS Vital Signs Vital Signs Date Time Temp Pulse Resp B/P (MAP) Pulse Ox O2 Delivery O2 Flow Rate FiO2 06/01/18 06:40 98.3 73 14 138/85 (102) Laboratory Data 24H Labs Laboratory Tests 2 05/31/18 12:01: Bedside Glucose (Misc Panel) 106H 05/31/18 17:15: Bedside Glucose (Misc Panel) 103 05/31/18 20:14: Bedside Glucose (Misc Panel) 149H 06/01/18 06:33: Bedside Glucose (Misc Panel) 121H Current Medications Current Medications Acetaminophen (Tylenol Tab) 650 mg Q6HP PRN PO HEADACHE or DISCOMFORT; Start 05/12/18 at 18:15 Al Hydrox/Mg Hydrox/Simethicone (Mylanta) 30 ml Q4HP PRN PO HEARTBURN/INDIGESTION; Start 05/12/18 at 18:15 Aripiprazole (AbiLIFY) 2 mg QAM PO Last administered on 05/23/18at 08:46; Start 05/21/18 at 09:00; Stop 05/23/18 at 11:20; Status DC Aripiprazole (AbiLIFY) 2.5 mg BID PO Last administered on 05/30/18at 09:30; Start 05/23/18 at 21:00; Stop 05/30/18 at 10:57; Status DC Aripiprazole (AbiLIFY) 5 mg BID PO ; Start 05/31/18 at 21:00; Status Cancel Aripiprazole (AbiLIFY) 7.5 mg BID PO Last administered on 05/31/18at 09:25; Start 05/30/18 at 21:00; Stop 05/31/18 at 12:58; Status DC Atorvastatin Calcium (Lipitor) 20 mg QHS PO Last administered on 05/31/18at 20:17; Start 05/12/18 at 21:00 Benztropine Mesylate (Cogentin) 1 mg BID PO Last administered on 05/15/18at 08:26; Start 05/13/18 at 09:00; Stop 05/15/18 at 14:22; Status DC Benztropine Mesylate (Cogentin) 1 mg TID PO Last administered on 05/31/18at 20:17; Start 05/15/18 at 16:00 Dextrose (Dextrose 50%) 25 ml ASDIRECTED PRN IV SEE LABEL COMMENTS; Start 05/12/18 at 20:30 Doxepin HCl (SINEquan) 50 mg QHS PO Last administered on 05/14/18at 21:13; Start 05/12/18 at 21:00; Stop 05/15/18 at 14:11; Status DC Fluoxetine HCl (PROzac) 10 mg DAILY PO Last administered on 05/14/18at 08:09; Start 05/13/18 at 09:00; Stop 05/14/18 at 21:05; Status DC Fluoxetine HCl (PROzac) 20 mg DAILY PO Last administered on 05/15/18at 08:26; Start 05/15/18 at 09:00; Stop 05/15/18 at 14:08; Status DC Fluoxetine HCl (PROzac) 20 mg QAM PO ; Start 06/01/18 at 09:00 Fluoxetine HCl (PROzac) 30 mg QAM PO Last administered on 05/31/18at 09:25; Start 05/30/18 at 09:00; Stop 05/31/18 at 13:00; Status DC Gabapentin (Neurontin) 600 mg BID PO Last administered on 05/31/18at 20:18; Start 05/12/18 at 21:00 Glucagon (Glucagon) 1 mg ASDIRECTED PRN SC SEE LABEL COMMENTS; Start 05/12/18 at 20:30 Glucose (Glucose) 16 GM ASDIRECTED PRN PO SEE LABEL COMMENTS; Start 05/12/18 at 20:30 Home Med (Med Rec Complete!) ASDIRECTED XX ; Start 05/12/18 at 17:45; Stop 05/12/18 at 17:47; Status DC Insulin Human Lispro (HumaLOG INSULIN) See Protocol Table AC SC Last administered on 05/31/18at 17:17; Start 05/13/18 at 07:30 Insulin Human Lispro (HumaLOG INSULIN) See Protocol Table QHS SC ; Start 05/12/18 at 21:00 Levothyroxine Sodium (Synthroid) 100 mcg DAILY@0600 PO Last administered on 06/01/18at 06:06; Start 05/13/18 at 06:00 Lisinopril (Prinivil) 5 mg DAILY PO Last administered on 05/31/18 09:25; Start 05/12/18 at 20:30 Lorazepam (Ativan) 0.5 mg STAT STAT PO Last administered on 05/31/18at 13:23; Start 05/31/18 at 13:12; Stop 05/31/18 at 13:13; Status DC Magnesium Hydroxide (Milk Of Magnesia) 30 ml DAILYPRN PRN PO CONSTIPATION; Start 05/12/18 at 18:15 Metformin HCl (Glucophage) 1,000 mg BID@08,18 PO Last administered on 06/01/18at 08:46; Start 05/13/18 at 18:00 Mirtazapine (Remeron) 7.5 mg QHS PO Last administered on 05/14/18at 21:13; Start 05/12/18 at 21:00; Stop 05/15/18 at 14:11; Status DC Mirtazapine (Remeron) 7.5 mg QHS PO Last administered on 05/31/18 20:17; Start 05/31/18 at 21:00 Mirtazapine (Remeron) 30 mg QHS PO Last administered on 05/30/18at 20:30; Start 05/15/18 at 21:00; Stop 05/31/18 at 13:05; Status DC Non-Formulary Medication ( See Comment Field Below ) SEE COMMENTS SECTION 1T@10 XX ; Start 05/25/18 at 10:00; Stop 05/25/18 at 10:00; Status DC Non-Formulary Medication ( See Comment Field Below ) SEE LABEL COMMENTS DAILY XX ; Start 05/23/18 at 09:00; Stop 05/23/18 at 12:56; Status DC Olanzapine (ZyPREXA) 10 mg BID PO Last administered on 05/15/18at 08:26; Start 05/15/18 at 09:00; Stop 05/15/18 at 14:31; Status DC Olanzapine (ZyPREXA) 10 mg QHS PO Last administered on 05/13/18at 20:33; Start 05/12/18 at 21:00; Stop 05/14/18 at 21:05; Status DC Oxcarbazepine (Trileptal) 600 mg QHS PO Last administered on 05/31/18 20:17; Start 05/12/18 at 21:00 Quetiapine Fumarate (SEROquel) 50 mg BID PO Last administered on 05/31/18at 20:17; Start 05/31/18 at 21:00 Risperidone (RisperDAL) 1 mg BID PO ; Start 05/31/18 at 21:00; Status Cancel Risperidone (RisperDAL) 1 mg TID PO Last administered on 05/31/18at 09:25; Start 05/15/18 at 16:00; Stop 05/31/18 at 12:55; Status DC Sertraline HCl (Zoloft) 25 mg QAM PO Last administered on 05/18/18at 08:55; Start 05/16/18 at 09:00; Stop 05/18/18 at 14:28; Status DC Sertraline HCl (Zoloft) 50 mg QAM PO Last administered on 05/19/18at 08:58; Start 05/19/18 at 09:00; Stop 05/19/18 at 14:55; Status DC Sertraline HCl (Zoloft) 75 mg QAM PO Last administered on 05/20/18 08:16; Start 05/20/18 at 09:00; Stop 05/20/18 at 15:46; Status DC Sertraline HCl (Zoloft) 100 mg QAM PO Last administered on 05/23/18at 08:46; Start 05/21/18 at 09:00; Stop 05/23/18 at 11:20; Status DC Sertraline HCl (Zoloft) 125 mg QAM PO Last administered on 05/30/18at 09:29; Start 05/24/18 at 09:00; Stop 05/30/18 at 09:50; Status DC Trazodone HCl (Desyrel) 50 mg QHSP PRN PO INSOMNIA Last administered on 05/16/18at 22:43; Start 05/12/18 at 18:15 Allergies Coded Allergies: Penicillins (Verified Allergy, Unknown, 07/19/12) Penicillins Cross Reactors (Verified Allergy, Unknown, 07/19/12) GME ATTESTATION GME ATTESTATION My faculty preceptor for this patient encounter was physically present during the encounter and was fully available. All aspects of the patient interview, examination, medical decision making process, and medical care plan development were reviewed and approved by the faculty preceptor. The faculty preceptor is aware and concurs with the plan as stated in the body of this note and will attest to such by his/her cosignature. NATHALY HUANG S-III Jun 01, 2018 09:10
[2018-06-01] MEDS: QUEtiapine FUMARATE 50 MG TAB PO SCH ×2 (09:57→21:17)
[2018-06-01] MEDS: LISINOPRIL 5 MG TAB PO SCH (09:57)
[2018-06-01] MEDS: BENZTROPINE 1 MG TAB PO SCH ×3 (09:57→21:17)
[2018-06-01] MEDS: GABAPENTIN 300 MG CAP PO SCH ×2 (09:57→21:17)
[2018-06-01] MEDS ORDERED: FLUoxetine 20 MG CAP PO ONE (15:45)
[2018-06-01] MEDS ORDERED: LORazepam 1 MG TAB PO ONE (15:45)
[2018-06-01] MEDS ORDERED: LORazepam 1 MG TAB PO SCH (16:00)
[2018-06-01 18:00] VITALS: BP 146/89
[2018-06-01] MEDS: MIRTAZAPINE 7.5MG PER 1/2 TABLET PO SCH (21:17)
[2018-06-01] MEDS: ATORVASTATIN 20 MG TAB PO SCH (21:17)
[2018-06-01] MEDS: LORazepam 1 MG TAB PO SCH (21:17)
[2018-06-01] MEDS: OXcarbazepine 300 MG TAB PO SCH (21:17)
[2018-06-02] MEDS: LEVOTHYROXINE 100MCG TABLET (0.1MG) PO SCH (06:13)
[2018-06-02] MEDS: HumaLOG INSULIN (NovoLOG) PER UNIT SC SCH ×4 (06:23→21:00)
[2018-06-02 06:45] VITALS: BP 175/107
[2018-06-02 06:46] VITALS: BP 170/90
[2018-06-02] MEDS: metFORMIN (GLUCOPHAGE) 1000 MG TABLET PO SCH ×2 (08:34→17:02)
[2018-06-02] MEDS: GABAPENTIN 300 MG CAP PO SCH ×2 (08:36→21:00)
[2018-06-02] MEDS: QUEtiapine FUMARATE 50 MG TAB PO SCH ×2 (08:36→21:00)
[2018-06-02] MEDS: BENZTROPINE 1 MG TAB PO SCH ×3 (08:36→21:00)
[2018-06-02] MEDS: LISINOPRIL 5 MG TAB PO SCH (08:36)
[2018-06-02] MEDS: FLUoxetine 20 MG CAP PO SCH (08:36)
[2018-06-02] MEDS: LORazepam 1 MG TAB PO SCH ×3 (08:36→21:00)
[2018-06-02 09:34] VITALS: BP 168/100
--- NOTE | 2018-06-02 09:41 | MHIPNPDOC ---
[facility] Progress Note Progress Note DATE OF SERVICE: 06/02/18 HISTORY OF THE PRESENT ILLNESS: as per ED report: "Pt states he had a friend drive him to the ED due to increased depression & SI with a plan to OD. Pt states that last night he had SI with a plan to OD. He reports increasing depression over the past few days. He stopped taking his meds because he was having side effects. Pt's main stressor is his living situation. He lives with his boss & does not think it is a good living environment for him. Pt reports poor sleep, poor appetite, poor motivation. VITAL SIGNS: See below. NEW TEST RESULTS: See below CURRENT MEDICATIONS: See below. MENTAL STATUS EXAMINATION: Patient is a 47-year old male, who is alert, disheveled, unkempt, dressed in his personal clothes, without lip smacking. In bed with poor eye contact. Excessive blinking is present. Speech: very short, limited, rapid, decreased volume, monotone. Long pauses before answers. Language skills are fair. Thought processes including: circumstantial, tangential, limited Thought content: depressive and anxious thoughts. Denies homicidal ideation, reports suicidal thoughts, fleeting, passive. Denies auditory and visual hallucinations and denies thought delusions Description of associations: Associative. Description of abnormal or psychotic thoughts: denies auditory and visual hallucinations and denies thought delusions Judgment: poor Insight: Poor. Orientation: Poor. Recent and remote memory: poor short term memory. Attention span and concentration: Fair. Fund of knowledge: Average. Mood: Anxious and very depressed. Affect: Very flat and very constricted. DIAGNOSES: 1. Bipolar disorder, mixed 2. Generalized anxiety disorder. ASSESSMENT: Patient was interviewed this morning in his room. He stares at the ground and makes no eye contact throughout. When asked how he was doing he said "not good." Refugio answers most questions with "I don't know", including how he answered how his depression was doing today. Lots of profound long pauses between questions and his answers. It was a struggle to get any conversation going. He says his roommate "is the anup one because he got out of here," but did not elaborate more about how that made him think or feel. When asked about suicidal ideations he says "I don't know" and "it's hard to explain" but has had fleeting passive ideations since admission, no homicidal ideations, no paranoia, no psychosis. He does have excessive blinking. MANAGEMENT: Add wellbutrin 50 mg PO fluoxetine increased to 40 mg PO QAM mirtazapine to 7.5 mg PO QHS seroquel 50 mg PO BID cogentin 1 mg PO TID gabapentin 600 mg PO BID Trileptal 600 mg PO QHS Vital Signs Vital Signs Date Time Temp Pulse Resp B/P (MAP) Pulse Ox O2 Delivery O2 Flow Rate FiO2 06/02/18 09:34 98.7 91 168/100 (122) 06/02/18 06:45 16 Laboratory Data 24H Labs Laboratory Tests 2 06/01/18 11:58: Bedside Glucose (Misc Panel) 147H 06/01/18 16:45: Bedside Glucose (Misc Panel) 100 06/01/18 21:13: Bedside Glucose (Misc Panel) 101 06/02/18 06:22: Bedside Glucose (Misc Panel) 117H Current Medications Current Medications Acetaminophen (Tylenol Tab) 650 mg Q6HP PRN PO HEADACHE or DISCOMFORT; Start 05/12/18 at 18:15 Al Hydrox/Mg Hydrox/Simethicone (Mylanta) 30 ml Q4HP PRN PO HEARTBURN/INDIGESTION; Start 05/12/18 at 18:15 Aripiprazole (AbiLIFY) 2 mg QAM PO Last administered on 05/23/18at 08:46; Start 05/21/18 at 09:00; Stop 05/23/18 at 11:20; Status DC Aripiprazole (AbiLIFY) 2.5 mg BID PO Last administered on 05/30/18at 09:30; Start 05/23/18 at 21:00; Stop 05/30/18 at 10:57; Status DC Aripiprazole (AbiLIFY) 5 mg BID PO ; Start 05/31/18 at 21:00; Status Cancel Aripiprazole (AbiLIFY) 7.5 mg BID PO Last administered on 05/31/18at 09:25; Start 05/30/18 at 21:00; Stop 05/31/18 at 12:58; Status DC Atorvastatin Calcium (Lipitor) 20 mg QHS PO Last administered on 06/01/18at 21:17; Start 05/12/18 at 21:00 Benztropine Mesylate (Cogentin) 1 mg BID PO Last administered on 05/15/18at 08:26; Start 05/13/18 at 09:00; Stop 05/15/18 at 14:22; Status DC Benztropine Mesylate (Cogentin) 1 mg TID PO Last administered on 06/02/18at 08:36; Start 05/15/18 at 16:00 Dextrose (Dextrose 50%) 25 ml ASDIRECTED PRN IV SEE LABEL COMMENTS; Start 05/12/18 at 20:30 Doxepin HCl (SINEquan) 50 mg QHS PO Last administered on 05/14/18at 21:13; Start 05/12/18 at 21:00; Stop 05/15/18 at 14:11; Status DC Fluoxetine HCl (PROzac) 10 mg DAILY PO Last administered on 05/14/18at 08:09; Start 05/13/18 at 09:00; Stop 05/14/18 at 21:05; Status DC Fluoxetine HCl (PROzac) 20 mg DAILY PO Last administered on 05/15/18at 08:26; Start 05/15/18 at 09:00; Stop 05/15/18 at 14:08; Status DC Fluoxetine HCl (PROzac) 20 mg QAM PO Last administered on 06/01/18at 09:56; Start 06/01/18 at 09:00; Stop 06/01/18 at 15:35; Status DC Fluoxetine HCl (PROzac) 30 mg QAM PO Last administered on 05/31/18at 09:25; Start 05/30/18 at 09:00; Stop 05/31/18 at 13:00; Status DC Fluoxetine HCl (PROzac) 40 mg QAM PO Last administered on 06/02/18at 08:36; Start 06/02/18 at 09:00 Gabapentin (Neurontin) 600 mg BID PO Last administered on 06/02/18at 08:36; Start 05/12/18 at 21:00 Glucagon (Glucagon) 1 mg ASDIRECTED PRN SC SEE LABEL COMMENTS; Start 05/12/18 at 20:30 Glucose (Glucose) 16 GM ASDIRECTED PRN PO SEE LABEL COMMENTS; Start 05/12/18 at 20:30 Home Med (Med Rec Complete!) ASDIRECTED XX ; Start 05/12/18 at 17:45; Stop 05/12/18 at 17:47; Status DC Insulin Human Lispro (HumaLOG INSULIN) See Protocol Table AC SC Last administered on 06/01/18at 12:00; Start 05/13/18 at 07:30 Insulin Human Lispro (HumaLOG INSULIN) See Protocol Table QHS SC ; Start 05/12/18 at 21:00 Levothyroxine Sodium (Synthroid) 100 mcg DAILY@0600 PO Last administered on 06/02/18at 06:13; Start 05/13/18 at 06:00 Lisinopril (Prinivil) 5 mg DAILY PO Last administered on 06/02/18at 08:36; S tart 05/12/18 at 20:30 Lorazepam (Ativan) 0.5 mg STAT STAT PO Last administered on 05/31/18at 13:23; Start 05/31/18 at 13:12; Stop 05/31/18 at 13:13; Status DC Lorazepam (Ativan) 1 mg TID PO ; Start 06/01/18 at 16:00; Stop 06/01/18 at 16:00; Status DC Lorazepam (Ativan) 1 mg TID PO Last administered on 06/02/18at 08:36; Start 06/01/18 at 21:00 Magnesium Hydroxide (Milk Of Magnesia) 30 ml DAILYPRN PRN PO CONSTIPATION; Start 05/12/18 at 18:15 Metformin HCl (Glucophage) 1,000 mg BID@08,18 PO Last administered on 06/02/18at 08:34; Start 05/13/18 at 18:00 Mirtazapine (Remeron) 7.5 mg QHS PO Last administered on 05/14/18at 21:13; Star t 05/12/18 at 21:00; Stop 05/15/18 at 14:11; Status DC Mirtazapine (Remeron) 7.5 mg QHS PO Last administered on 06/01/18at 21:17; Start 05/31/18 at 21:00 Mirtazapine (Remeron) 30 mg QHS PO Last administered on 05/30/18at 20:30; Start 05/15/18 at 21:00; Stop 05/31/18 at 13:05; Status DC Non-Formulary Medication ( See Comment Field Below ) SEE COMMENTS SECTION 1T@10 XX ; Start 05/25/18 at 10:00; Stop 05/25/18 at 10:00; Status DC Non-Formulary Medication ( See Comment Field Below ) SEE LABEL COMMENTS D AILY XX ; Start 05/23/18 at 09:00; Stop 05/23/18 at 12:56; Status DC Olanzapine (ZyPREXA) 10 mg BID PO Last administered on 05/15/18at 08:26; Start 05/15/18 at 09:00; Stop 05/15/18 at 14:31; Status DC Olanzapine (ZyPREXA) 10 mg QHS PO Last administered on 05/13/18at 20:33; Start 05/12/18 at 21:00; Stop 05/14/18 at 21:05; Status DC Oxcarbazepine (Trileptal) 600 mg QHS PO Last administered on 06/01/18at 21:17; Start 05/12/18 at 21:00 Quetiapine Fumarate (SEROquel) 50 mg BID PO Last administered on 06/02/18at 08:36; Start 05/31/18 at 21:00 Risperidone (RisperDAL) 1 mg BID PO ; Start 05/31/18 at 21:00; Status Cancel Risperidone (RisperDAL) 1 mg TID PO Last administered on 05/31/18at 09:25; Start 05/15/18 at 16:00; Stop 05/31/18 at 12:55; Status DC Sertraline HCl (Zoloft) 25 mg QAM PO Last administered on 05/18/18at 08:55; Start 05/16/18 at 09:00; Stop 05/18/18 at 14:28; Status DC Sertraline HCl (Zoloft) 50 mg QAM PO Last administered on 05/19/18at 08:58; Start 05/19/18 at 09:00; Stop 05/19/18 at 14:55; Status DC Sertraline HCl (Zoloft) 75 mg QAM PO Last administered on 05/20/18at 08:16; Start 05/20/18 at 09:00; Stop 05/20/18 at 15:46; Status DC Sertraline HCl (Zoloft) 100 mg QAM PO Last administered on 05/23/18at 08:46; Start 05/21/18 at 09:00; Stop 05/23/18 at 11:20; Status DC Sertraline HCl (Zoloft) 125 mg QAM PO Last administered on 05/30/18at 09:29; Start 05/24/18 at 09:00; Stop 05/30/18 at 09:50; Status DC Trazodone HCl (Desyrel) 50 mg QHSP PRN PO INSOMNIA Last administered on 05/16/18at 22:43; Start 05/12/18 at 18:15 Allergies Coded Allergies: Penicillins (Verified Allergy, Unknown, 07/19/12) Penicillins Cross Reactors (Verified Allergy, Unknown, 07/19/12) GME ATTESTATION GME ATTESTATION My faculty preceptor for this patient encounter was physically present during the encounter and was fully available. All aspects of the patient interview, examination, medical decision making process, and medical care plan development were reviewed and approved by the faculty preceptor. The faculty preceptor is aware and concurs with the plan as stated in the body of this note and will attest to such by his/her cosignature. NATHALY HUANG OMS-III Jun 02, 2018 09:41
[2018-06-02] MEDS ORDERED: cloNIDine 0.1 MG TAB PO ONE (10:00)
[2018-06-02 11:57] VITALS: BP 128/80
[2018-06-02] MEDS: buPROPion 100 MG TAB PO SCH (16:01)
[2018-06-02] MEDS: PILL CRUSHER/CUTTER 1 EACH XX PRN (16:02)
[2018-06-02 18:00] VITALS: BP 146/95
[2018-06-02] MEDS: OXcarbazepine 300 MG TAB PO SCH (21:00)
[2018-06-02] MEDS: ATORVASTATIN 20 MG TAB PO SCH (21:00)
[2018-06-02] MEDS: MIRTAZAPINE 7.5MG PER 1/2 TABLET PO SCH (21:00)
[2018-06-03 06:00] VITALS: BP 148/110
[2018-06-03] MEDS: LEVOTHYROXINE 100MCG TABLET (0.1MG) PO SCH (06:07)
[2018-06-03] MEDS: HumaLOG INSULIN (NovoLOG) PER UNIT SC SCH ×4 (06:17→21:00)
[2018-06-03] MEDS ORDERED: cloNIDine 0.1 MG TAB PO ONE (06:30)
[2018-06-03] MEDS: metFORMIN (GLUCOPHAGE) 1000 MG TABLET PO SCH ×2 (08:45→17:25)
[2018-06-03] MEDS: buPROPion 100 MG TAB PO SCH (09:10)
[2018-06-03] MEDS: LISINOPRIL 5 MG TAB PO SCH (09:11)
[2018-06-03] MEDS: PILL CRUSHER/CUTTER 1 EACH XX PRN (09:13)
[2018-06-03] MEDS: GABAPENTIN 300 MG CAP PO SCH ×2 (09:14→21:48)
[2018-06-03] MEDS: QUEtiapine FUMARATE 50 MG TAB PO SCH ×2 (09:14→21:47)
[2018-06-03] MEDS: BENZTROPINE 1 MG TAB PO SCH ×3 (09:14→21:47)
[2018-06-03] MEDS: LORazepam 1 MG TAB PO SCH ×3 (09:14→21:47)
[2018-06-03] MEDS: FLUoxetine 20 MG CAP PO SCH (09:15)
--- NOTE | 2018-06-03 11:46 | MHIPNPDOC ---
[facility] Progress Note Progress Note DATE OF SERVICE: 06/03/18 HISTORY OF THE PRESENT ILLNESS: as per ED report: "Pt states he had a friend drive him to the ED due to increased depression & SI with a plan to OD. Pt states that last night he had SI with a plan to OD. He reports increasing depression over the past few days. He stopped taking his meds because he was having side effects. Pt's main stressor is his living situation. He lives with his boss & does not think it is a good living environment for him. Pt reports poor sleep, poor appetite, poor motivation. VITAL SIGNS: See below. NEW TEST RESULTS: See below CURRENT MEDICATIONS: See below. MENTAL STATUS EXAMINATION: Patient is a 47-year old male, who is alert, disheveled, unkempt, dressed in his personal clothes, without lip smacking. In bed with poor eye contact. Excessive blinking is present. Speech: very short, very limited, rapid, decreased volume, monotone. Long pauses before answers. Language skills are fair. Thought processes including: circumstantial, tangential, limited Thought content: depressive and anxious thoughts. Denies homicidal ideation, reports suicidal thoughts, fleeting, passive. Denies auditory and visual hallucinations and denies thought delusions Description of associations: Associative. Description of abnormal or psychotic thoughts: denies auditory and visual hallucinations and denies thought delusions Judgment: poor Insight: Poor. Orientation: Poor. Recent and remote memory: poor short term memory. Attention span and concentration: Fair. Fund of knowledge: Average. Mood: Anxious and very depressed. Affect: Very flat and very constricted. DIAGNOSES: 1. Bipolar disorder, mixed 2. Generalized anxiety disorder. ASSESSMENT: Patient was interviewed this morning in his room. He stares at the ground and makes no eye contact throughout. When asked how he was doing he said "not good." Refugio answers most questions with "I don't know", including how he answered how his depression was doing today. Does not answer many questions and does not want to talk. The only thing he says is "I just remembered some things I did." When asked about suicidal ideations he says "I don't know" but has had fleeting passive ideations since admission, no homicidal ideations, no paranoia, no psychosis. He does have excessive blinking. MANAGEMENT: Add wellbutrin 50 mg PO fluoxetine increased to 40 mg PO QAM mirtazapine to 7.5 mg PO QHS seroquel 50 mg PO BID cogentin 1 mg PO TID gabapentin 600 mg PO BID Trileptal 600 mg PO QHS Vital Signs Vital Signs Date Time Temp Pulse Resp B/P (MAP) Pulse Ox O2 Delivery O2 Flow Rate FiO2 06/03/18 09:11 140/110 06/03/18 06:00 97.3 78 20 Laboratory Data 24H Labs Laboratory Tests 2 06/02/18 11:59: Bedside Glucose (Misc Panel) 75 06/02/18 16:02: Bedside Glucose (Misc Panel) 117H 06/03/18 06:16: Bedside Glucose (Misc Panel) 86 Current Medications Current Medications Acetaminophen (Tylenol Tab) 650 mg Q6HP PRN PO HEADACHE or DISCOMFORT; Start 05/12/18 at 18:15 Al Hydrox/Mg Hydrox/Simethicone (Mylanta) 30 ml Q4HP PRN PO HEARTBURN/INDIGESTION; Start 05/12/18 at 18:15 Aripiprazole (AbiLIFY) 2 mg QAM PO Last administered on 05/23/18at 08:46; Start 05/21/18 at 09:00; Stop 05/23/18 at 11:20; Status DC Aripiprazole (AbiLIFY) 2.5 mg BID PO Last administered on 05/30/18at 09:30; Start 05/23/18 at 21:00; Stop 05/30/18 at 10:57; Status DC Aripiprazole (AbiLIFY) 5 mg BID PO ; Start 05/31/18 at 21:00; Status Cancel Aripiprazole (AbiLIFY) 7.5 mg BID PO Last administered on 05/31/18at 09:25; Start 05/30/18 at 21:00; Stop 05/31/18 at 12:58; Status DC Atorvastatin Calcium (Lipitor) 20 mg QHS PO Last administered on 06/01/18at 21:17; Start 05/12/18 at 21:00 Benztropine Mesylate (Cogentin) 1 mg BID PO Last administered on 05/15/18at 08:26; Start 05/13/18 at 09:00; Stop 05/15/18 at 14:22; Status DC Benztropine Mesylate (Cogentin) 1 mg TID PO Last administered on 06/03/18at 09:14; Start 05/15/18 at 16:00 Bupropion HCl (Wellbutrin) 50 mg DAILY PO Last administered on 06/03/18at 09:10; Start 06/02/18 at 09:00 Dextrose (Dextrose 50%) 25 ml ASDIRECTED PRN IV SEE LABEL COMMENTS; Start 05/12/18 at 20:30 Doxepin HCl (SINEquan) 50 mg QHS PO Last administered on 05/14/18at 21:13; Start 05/12/18 at 21:00; Stop 05/15/18 at 14:11; Status DC Fluoxetine HCl (PROzac) 10 mg DAILY PO Last administered on 05/14/18at 08:09; Start 05/13/18 at 09:00; Stop 05/14/18 at 21:05; Status DC Fluoxetine HCl (PROzac) 20 mg DAILY PO Last administered on 05/15/18at 08:26; Start 05/15/18 at 09:00; Stop 05/15/18 at 14:08; Status DC Fluoxetine HCl (PROzac) 20 mg QAM PO Last administered on 06/01/18at 09:56; Start 06/01/18 at 09:00; Stop 06/01/18 at 15:35; Status DC Fluoxetine HCl (PROzac) 30 mg QAM PO Last administered on 05/31/18at 09:25; Start 05/30/18 at 09:00; Stop 05/31/18 at 13:00; Status DC Fluoxetine HCl (PROzac) 40 mg QAM PO Last administered on 06/03/18at 09:15; Start 06/02/18 at 09:00 Gabapentin (Neurontin) 600 mg BID PO Last administered on 06/03/18at 09:14; Start 05/12/18 at 21:00 Glucagon (Glucagon) 1 mg ASDIRECTED PRN SC SEE LABEL COMMENTS; Start 05/12/18 at 20:30 Glucose (Glucose) 16 GM ASDIRECTED PRN PO SEE LABEL COMMENTS; Start 05/12/18 at 20:30 Home Med (Med Rec Complete!) ASDIRECTED XX ; Start 05/12/18 at 17:45; Stop 05/12/18 at 17:47; Status DC Insulin Human Lispro (HumaLOG INSULIN) See Protocol Table AC SC Last administered on 06/02/18at 17:14; Start 05/13/18 at 07:30 Insulin Human Lispro (HumaLOG INSULIN) See Protocol Table QHS SC ; Start 05/12/18 at 21:00 Levothyroxine Sodium (Synthroid) 100 mcg DAILY@0600 PO Last administered on 06/03/18at 06:07; Start 05/13/18 at 06:00 Lisinopril (Prinivil) 5 mg DAILY PO Last administered on 06/03/18at 09:11; Start 05/12/18 at 20:30; Stop 06/03/18 at 10:04; Status DC Lisinopril (Prinivil) 15 mg DAILY PO ; Start 06/04/18 at 09:00 Lorazepam (Ativan) 0.5 mg STAT STAT PO Last administered on 05/31/18at 13:23; Start 05/31/18 at 13:12; Stop 05/31/18 at 13:13; Status DC Lorazepam (Ativan) 1 mg TID PO ; Start 06/01/18 at 16:00; Stop 06/01/18 at 16:00; Status DC Lorazepam (Ativan) 1 mg TID PO Last administered on 06/03/18at 09:14; Start 06/01/18 at 21:00 Magnesium Hydroxide (Milk Of Magnesia) 30 ml DAILYPRN PRN PO CONSTIPATION; Start 05/12/18 at 18:15 Metformin HCl (Glucophage) 1,000 mg BID@,18 PO Last administered on 06/03/18at 08:45; Start 05/13/18 at 18:00 Mirtazapine (Remeron) 7.5 mg QHS PO Last administered on 05/14/18at 21:13; Start 05/12/18 at 21:00; Stop 05/15/18 at 14:11; Status DC Mirtazapine (Remeron) 7.5 mg QHS PO Last administered on 06/02/18at 21:00; Start 05/31/18 at 21:00 Mirtazapine (Remeron) 30 mg QHS PO Last administered on 05/30/18at 20:30; Start 05/15/18 at 21:00; Stop 05/31/18 at 13:05; Status DC Non-Formulary Medication ( See Comment Field Below ) SEE COMMENTS SECTION 1T@10 XX ; Start 05/25/18 at 10:00; Stop 05/25/18 at 10:00; Status DC Non-Formulary Medication ( See Comment Field Below ) SEE LABEL COMMENTS DAILY XX ; Start 05/23/18 at 09:00; Stop 05/23/18 at 12:56; Status DC Olanzapine (ZyPREXA) 10 mg BID PO Last administered on 05/15/18at 08:26; Start 05/15/18 at 09:00; Stop 05/15/18 at 14:31; Status DC Olanzapine (ZyPREXA) 10 mg QHS PO Last administered on 05/13/18at 20:33; Start 05/12/18 at 21:00; Stop 05/14/18 at 21:05; Status DC Oxcarbazepine (Trileptal) 600 mg QHS PO Last administered on 06/01/18at 21:17; Start 05/12/18 at 21:00 Quetiapine Fumarate (SEROquel) 50 mg BID PO Last administered on 06/03/18at 09:14; Start 05/31/18 at 21:00 Risperidone (RisperDAL) 1 mg BID PO ; Start 05/31/18 at 21:00; Status Cancel Risperidone (RisperDAL) 1 mg TID PO Last administered on 05/31/18at 09:25; Start 05/15/18 at 16:00; Stop 05/31/18 at 12:55; Status DC Sertraline HCl (Zoloft) 25 mg QAM PO Last administered on 05/18/18at 08:55; Start 05/16/18 at 09:00; Stop 05/18/18 at 14:28; Status DC Sertraline HCl (Zoloft) 50 mg QAM PO Last administered on 05/19/18at 08:58; Start 05/19/18 at 09:00; Stop 05/19/18 at 14:55; Status DC Sertraline HCl (Zoloft) 75 mg QAM PO Last administered on 05/20/18at 08:16; Start 05/20/18 at 09:00; Stop 2/1/19 at 15:46; Status DC Sertraline HCl (Zoloft) 100 mg QAM PO Last administered on 05/23/18at 08:46; Start 05/21/18 at 09:00; Stop 05/23/18 at 11:20; Status DC Sertraline HCl (Zoloft) 125 mg QAM PO Last administered on 05/30/18at 09:29; Start 05/24/18 at 09:00; Stop 05/30/18 at 09:50; Status DC Trazodone HCl (Desyrel) 50 mg QHSP PRN PO INSOMNIA Last administered on 05/16/18at 22:43; Start 05/12/18 at 18:15 Allergies Coded Allergies: Penicillins (Verified Allergy, Unknown, 07/19/12) Penicillins Cross Reactors (Verified Allergy, Unknown, 07/19/12) GME ATTESTATION GME ATTESTATION My faculty preceptor for this patient encounter was physically present during the encounter and was fully available. All aspects of the patient interview, examination, medical decision making process, and medical care plan development were reviewed and approved by the faculty preceptor. The faculty preceptor is aware and concurs with the plan as stated in the body of this note and will attest to such by his/her cosignature. NATHALY HUANG S-III Jun 03, 2018 11:46
--- NOTE | 2018-06-03 15:07 | REP ---
MR BRAIN WITHOUT CONTRAST: HISTORY: Altered mental status. COMPARISON: CT 05/31/2018. The examination is incomplete as only sagittal T1-weighted images were obtained. There is no definite intraparenchymal hemorrhage, mass or midline shift. There is no hydrocephalus or extracerebral collection. IMPRESSION: Limited incomplete examination demonstrating no definite intracranial abnormality. Electronically Signed by Steve Alicia MD 06/03/2018 03:16 P
[2018-06-03 18:20] VITALS: BP 146/85
[2018-06-03] MEDS: ATORVASTATIN 20 MG TAB PO SCH (21:47)
[2018-06-03] MEDS: MIRTAZAPINE 7.5MG PER 1/2 TABLET PO SCH (21:48)
[2018-06-03] MEDS: OXcarbazepine 300 MG TAB PO SCH (21:48)
[2018-06-04] MEDS: LEVOTHYROXINE 100MCG TABLET (0.1MG) PO SCH (06:24)
[2018-06-04] MEDS: HumaLOG INSULIN (NovoLOG) PER UNIT SC SCH ×4 (06:24→20:51)
[2018-06-04 06:39] VITALS: BP 160/93
[2018-06-04] MEDS: LORazepam 1 MG TAB PO SCH ×3 (08:20→20:35)
[2018-06-04] MEDS: QUEtiapine FUMARATE 50 MG TAB PO SCH ×2 (08:20→20:47)
[2018-06-04] MEDS: BENZTROPINE 1 MG TAB PO SCH ×3 (08:20→20:35)
[2018-06-04] MEDS: LISINOPRIL 5 MG TAB PO SCH (08:20)
[2018-06-04] MEDS: buPROPion 100 MG TAB PO SCH (08:20)
[2018-06-04] MEDS: FLUoxetine 20 MG CAP PO SCH (08:20)
[2018-06-04] MEDS: GABAPENTIN 300 MG CAP PO SCH ×2 (08:20→20:35)
[2018-06-04] MEDS: metFORMIN (GLUCOPHAGE) 1000 MG TABLET PO SCH ×2 (08:20→17:01)
[2018-06-04 18:00] VITALS: BP 144/81
[2018-06-04] MEDS: OXcarbazepine 300 MG TAB PO SCH (20:36)
[2018-06-04] MEDS: ATORVASTATIN 20 MG TAB PO SCH (20:36)
[2018-06-04] MEDS: MIRTAZAPINE 7.5MG PER 1/2 TABLET PO SCH (20:36)
[2018-06-05 06:00] VITALS: BP 145/93
[2018-06-05] MEDS: LEVOTHYROXINE 100MCG TABLET (0.1MG) PO SCH (06:04)
[2018-06-05] MEDS: HumaLOG INSULIN (NovoLOG) PER UNIT SC SCH ×4 (07:13→21:00)
[2018-06-05] MEDS: LORazepam 1 MG TAB PO SCH ×3 (08:28→21:56)
[2018-06-05] MEDS: buPROPion 100 MG TAB PO SCH (08:28)
[2018-06-05] MEDS: FLUoxetine 20 MG CAP PO SCH (08:29)
[2018-06-05] MEDS: metFORMIN (GLUCOPHAGE) 1000 MG TABLET PO SCH ×2 (08:29→17:09)
[2018-06-05] MEDS: LISINOPRIL 5 MG TAB PO SCH (08:29)
[2018-06-05] MEDS: BENZTROPINE 1 MG TAB PO SCH ×3 (08:29→21:56)
[2018-06-05] MEDS: QUEtiapine FUMARATE 50 MG TAB PO SCH ×2 (08:29→21:55)
[2018-06-05] MEDS: GABAPENTIN 300 MG CAP PO SCH ×2 (08:29→21:56)
[2018-06-05 18:00] VITALS: BP 127/75
[2018-06-05] MEDS: MIRTAZAPINE 7.5MG PER 1/2 TABLET PO SCH (21:55)
[2018-06-05] MEDS: ATORVASTATIN 20 MG TAB PO SCH (21:56)
[2018-06-05] MEDS: OXcarbazepine 300 MG TAB PO SCH (21:56)
[2018-06-06] MEDS: LEVOTHYROXINE 100MCG TABLET (0.1MG) PO SCH (06:08)
[2018-06-06] MEDS: HumaLOG INSULIN (NovoLOG) PER UNIT SC SCH ×4 (06:50→21:00)
[2018-06-06] MEDS: LISINOPRIL 5 MG TAB PO SCH (07:00)
[2018-06-06 07:05] VITALS: BP 150/110
[2018-06-06] MEDS: metFORMIN (GLUCOPHAGE) 1000 MG TABLET PO SCH ×2 (07:36→17:05)
[2018-06-06] MEDS: PILL CRUSHER/CUTTER 1 EACH XX PRN (08:39)
[2018-06-06] MEDS: LORazepam 1 MG TAB PO SCH ×3 (08:39→21:56)
[2018-06-06] MEDS: BENZTROPINE 1 MG TAB PO SCH ×3 (08:40→21:56)
[2018-06-06] MEDS: FLUoxetine 20 MG CAP PO SCH (08:40)
[2018-06-06] MEDS: buPROPion 100 MG TAB PO SCH (08:40)
[2018-06-06] MEDS: GABAPENTIN 300 MG CAP PO SCH ×2 (08:40→21:56)
[2018-06-06] MEDS: QUEtiapine FUMARATE 50 MG TAB PO SCH ×2 (08:40→21:56)
[2018-06-06 08:43] VITALS: BP 140/90
--- NOTE | 2018-06-06 16:51 | MHIPNPDOC ---
[facility] Progress Note Progress Note DATE OF SERVICE: 06/06/18 HISTORY OF THE PRESENT ILLNESS: as per ED report: "Pt states he had a friend drive him to the ED due to increased depression & SI with a plan to OD. Pt states that last night he had SI with a plan to OD. He reports increasing depression over the past few days. He stopped taking his meds because he was having side effects. Pt's main stressor is his living situation. He lives with his boss & does not think it is a good living environment for him. Pt reports poor sleep, poor appetite, poor motivation. VITAL SIGNS: See below. NEW TEST RESULTS: See below CURRENT MEDICATIONS: See below. MENTAL STATUS EXAMINATION: Patient is a 47-year old male, who is alert, disheveled, unkempt, dressed in his personal clothes, without lip smacking. In bed with poor eye contact. Excessive blinking is present. Speech: very short, very limited, rapid, decreased volume, monotone. Long pauses before answers. Language skills are fair. Thought processes including: concrete, thought blocking, depressed Thought content: depressive and anxious thoughts. Denies homicidal ideation, reports suicidal thoughts, fleeting, passive. Denies auditory and visual hallucinations and denies thought delusions Description of associations: Intact Description of abnormal or psychotic thoughts: denies auditory and visual hallucinations and denies thought delusions Judgment: poor Insight: Poor. Orientation: Poor. Recent and remote memory: poor short term memory. Attention span and concentration: Fair. Fund of knowledge: Average. Mood: Anxious and very depressed. Affect: Very flat and very constricted. DIAGNOSES: 1. Bipolar disorder, mixed 2. Generalized anxiety disorder. ASSESSMENT: the first I walked into his room, he was profoundly asleep, I couldn't wake him up. the second time we were able to talk for a short period of time because he was waking up and when I asked him how was he feeling he said: "I don't know". I told him I had been there earlier but he was sleeping and I asked if he had slept welll through the night and he said yes, he did. I asked him if he had suicidal thoughts and he said that "Oh, I haven't thought about it today". Then he tells me that when he has suicidal thoughts, his thoughts are not active, they are passive and he doesn't have a plan. h contracts for safety and promiss to contact staff if he feels that he can't control his thoughts or his impulses. Patient was informed that he is going to [facility], he was accepted, but w don't have a date yet. MANAGEMENT: Increase wellbutrin 100 mg PO fluoxetine increased to 40 mg PO QAM mirtazapine to 7.5 mg PO QHS seroquel 50 mg PO BID cogentin 1 mg PO TID gabapentin 600 mg PO BID Trileptal 600 mg PO QHS Vital Signs Vital Signs Vital Signs Date Time Temp Pulse Resp B/P (MAP) Pulse Ox O2 Delivery O2 Flow Rate FiO2 06/06/18 11:30 Room Air 06/06/18 08:43 80 140/90 (107) 06/06/18 07:05 98.6 16 Laboratory Data 24H Labs Laboratory Tests 2 06/05/18 17:09: Bedside Glucose (Misc Panel) 93 06/05/18 21:54: Bedside Glucose (Misc Panel) 114H 06/06/18 06:37: Bedside Glucose (Misc Panel) 94 06/06/18 11:56: Bedside Glucose (Misc Panel) 99 Current Medications Current Medications Acetaminophen (Tylenol Tab) 650 mg Q6HP PRN PO HEADACHE or DISCOMFORT; Start 05/12/18 at 18:15 Al Hydrox/Mg Hydrox/Simethicone (Mylanta) 30 ml Q4HP PRN PO HEARTBURN/IND IGESTION; Start 05/12/18 at 18:15 Aripiprazole (AbiLIFY) 2 mg QAM PO Last administered on 05/23/18at 08:46; Start 05/21/18 at 09:00; Stop 05/23/18 at 11:20; Status DC Aripiprazole (AbiLIFY) 2.5 mg BID PO Last administered on 05/30/18at 09:30; Start 05/23/18 at 21:00; Stop 05/30/18 at 10:57; Status DC Aripiprazole (AbiLIFY) 5 mg BID PO ; Start 05/31/18 at 21:00; Status Cancel Aripiprazole (AbiLIFY) 7.5 mg BID PO Last administered on 05/31/18at 09:25; Start 05/30/18 at 21:00; Stop 05/31/18 at 12:58; Status DC Atorvastatin Calcium (Lipitor) 20 mg QHS PO Last administered on 06/05/18at 21:56; Start 05/12/18 at 21:00 Benztropine Mesylate (Cogentin) 1 mg BID PO Last administered on 05/15/18 08:26; Start 05/13/18 at 09:00; Stop 05/15/18 at 14:22; Status DC Benztropine Mesylate (Cogentin) 1 mg TID PO Last administered on 06/06/18at 15:39; Start 05/15/18 at 16:00 Bupropion HCl (Wellbutrin) 50 mg DAILY PO Last administered on 06/06/18 08:40; Start 06/02/18 at 09:00 Dextrose (Dextrose 50%) 25 ml ASDIRECTED PRN IV SEE LABEL COMMENTS; Start 05/12/18 at 20:30 Doxepin HCl (SINEquan) 50 mg QHS PO Last administered on 05/14/18at 21:13; Start 05/12/18 at 21:00; Stop 05/15/18 at 14:11; Status DC Fluoxetine HCl (PROzac) 10 mg DAILY PO Last administered on 05/14/18at 08:09; Start 05/13/18 at 09:00; Stop 05/14/18 at 21:05; Status DC Fluoxetine HCl (PROzac) 20 mg DAILY PO Last administered on 05/15/18 08:26; Start 05/15/18 at 09:00; Stop 05/15/18 at 14:08; Status DC Fluoxetine HCl (PROzac) 20 mg QAM PO Last administered on 06/01/18at 09:56; Start 06/01/18 at 09:00; Stop 06/01/18 at 15:35; Status DC Fluoxetine HCl (PROzac) 30 mg QAM PO Last administered on 05/31/18at 09:25; Start 05/30/18 at 09:00; Stop 05/31/18 at 13:00; Status DC Fluoxetine HCl (PROzac) 40 mg QAM PO Last administered on 06/06/18at 08:40; Start 06/02/18 at 09:00 Gabapentin (Neurontin) 600 mg BID PO Last administered on 06/06/18at 08:40; Start 05/12/18 at 21:00 Glucagon (Glucagon) 1 mg ASDIRECTED PRN SC SEE LABEL COMMENTS; Start 05/12/18 at 20:30 Glucose (Glucose) 16 GM ASDIRECTED PRN PO SEE LABEL COMMENTS; Start 05/12/18 at 20:30 Home Med (Med Rec Complete!) ASDIRECTED XX ; Start 05/12/18 at 17:45; Stop 05/12/18 at 17:47; Status DC Insulin Human Lispro (HumaLOG INSULIN) See Protocol Table AC SC Last ad ministered on 06/04/18at 17:00; Start 05/13/18 at 07:30 Insulin Human Lispro (HumaLOG INSULIN) See Protocol Table QHS SC ; Start 05/12/18 at 21:00 Levothyroxine Sodium (Synthroid) 100 mcg DAILY@0600 PO Last administered on 06/06/18at 06:08; Start 05/13/18 at 06:00 Lisinopril (Prinivil) 5 mg DAILY PO Last administered on 06/03/18at 09:11; Start 05/12/18 at 20:30; Stop 06/03/18 at 10:04; Status DC Lisinopril (Prinivil) 15 mg DAILY PO Last administered on 06/06/18at 07:00; Start 06/04/18 at 09:00 Lorazepam (Ativan) 0.5 mg STAT STAT PO Last administered on 05/31/18at 13:23; Start 05/31/18 at 13:12; Stop 05/31/18 at 13:13; Status DC Lorazepam (Ativan) 1 mg TID PO ; Start 06/01/18 at 16:00; Stop 06/01/18 at 16:00; Status DC Lorazepam (Ativan) 1 mg TID PO Last administered on 06/06/18at 15:39; Start 06/01/18 at 21:00 Magnesium Hydroxide (Milk Of Magnesia) 30 ml DAILYPRN PRN PO CONSTIPATION; Start 05/12/18 at 18:15 Metformin HCl (Glucophage) 1,000 mg BID@08,18 PO Last administered on 06/06/18at 07:36; Start 05/13/18 at 18:00 Mirtazapine (Remeron) 7.5 mg QHS PO Last administered on 05/14/18at 21:13; Start 05/12/18 at 21:00; Stop 05/15/18 at 14:11; Status DC Mirtazapine (Remeron) 7.5 mg QHS PO Last administered on 06/05/18at 21:55; Start 05/31/18 at 21:00 Mirtazapine (Remeron) 30 mg QHS PO Last administered on 05/30/18at 20:30; Start 05/15/18 at 21:00; Stop 05/31/18 at 13:05; Status DC Non-Formulary Medication ( See Comment Field Below ) SEE COMMENTS SECTION 1T@10 XX ; Start 05/25/18 at 10:00; Stop 05/25/18 at 10:00; Status DC Non-Formulary Medication ( See Comment Field Below ) SEE LABEL COMMENTS DAILY XX ; Start 05/23/18 at 09:00; Stop 05/23/18 at 12:56; Status DC Olanzapine (ZyPREXA) 10 mg BID PO Last administered on 05/15/18at 08:26; Start 05/15/18 at 09:00; Stop 05/15/18 at 14:31; Status DC Olanzapine (ZyPREXA) 10 mg QHS PO Last administered on 05/13/18at 20:33; Start 05/12/18 at 21:00; Stop 05/14/18 at 21:05; Status DC Oxcarbazepine (Trileptal) 600 mg QHS PO Last administered on 06/05/18at 21:56; Start 05/12/18 at 21:00 Quetiapine Fumarate (SEROquel) 50 mg BID PO Last administered on 06/06/18at 08:40; Start 05/31/18 at 21:00 Risperidone (RisperDAL) 1 mg BID PO ; Start 05/31/18 at 21:00; Status Cancel Risperidone (RisperDAL) 1 mg TID PO Last administered on 05/31/18at 09:25; Start 05/15/18 at 16:00; Stop 05/31/18 at 12:55; Status DC Sertraline HCl (Zoloft) 25 mg QAM PO Last administered on 05/18/18at 08:55; Start 05/16/18 at 09:00; Stop 05/18/18 at 14:28; Status DC Sertraline HCl (Zoloft) 50 mg QAM PO Last administered on 05/19/18at 08:58; Start 05/19/18 at 09:00; Stop 05/19/18 at 14:55; Status DC Sertraline HCl (Zoloft) 75 mg QAM PO Last administered on 05/20/18at 08:16; Start 05/20/18 at 09:00; Stop 05/20/18 at 15:46; Status DC Sertraline HCl (Zoloft) 100 mg QAM PO Last administered on 05/23/18at 08:46; Start 05/21/18 at 09:00; Stop 05/23/18 at 11:20; Status DC Sertraline HCl (Zoloft) 125 mg QAM PO Last administered on 05/30/18at 09:29; Start 05/24/18 at 09:00; Stop 05/30/18 at 09:50; Status DC Trazodone HCl (Desyrel) 50 mg QHSP PRN PO INSOMNIA Last administered on 05/16/18at 22:43; Start 05/12/18 at 18:15 Allergies Coded Allergies: Penicillins (Verified Allergy, Unknown, 07/19/12) Penicillins Cross Reactors (Verified Allergy, Unknown, 07/19/12) YAAKOV BAILEY MD Jun 06, 2018 16:51
[2018-06-06 18:00] VITALS: BP 136/88
[2018-06-06] MEDS: MIRTAZAPINE 7.5MG PER 1/2 TABLET PO SCH (21:56)
[2018-06-06] MEDS: OXcarbazepine 300 MG TAB PO SCH (21:56)
[2018-06-06] MEDS: ATORVASTATIN 20 MG TAB PO SCH (21:56)
[2018-06-07] MEDS: LEVOTHYROXINE 100MCG TABLET (0.1MG) PO SCH (06:10)
[2018-06-07] MEDS ORDERED: cloNIDine 0.1 MG TAB PO ONE (06:30)
[2018-06-07 06:44] VITALS: BP 170/98
[2018-06-07] MEDS: LISINOPRIL 5 MG TAB PO SCH (06:49)
[2018-06-07] MEDS: HumaLOG INSULIN (NovoLOG) PER UNIT SC SCH ×4 (06:52→21:00)
[2018-06-07] MEDS: metFORMIN (GLUCOPHAGE) 1000 MG TABLET PO SCH ×2 (07:41→17:13)
[2018-06-07] MEDS ORDERED: buPROPion 100 MG TAB PO SCH (09:00)
[2018-06-07] MEDS: BENZTROPINE 1 MG TAB PO SCH ×3 (09:02→21:37)
[2018-06-07] MEDS: LORazepam 1 MG TAB PO SCH ×3 (09:03→21:37)
[2018-06-07] MEDS: FLUoxetine 20 MG CAP PO SCH (09:03)
[2018-06-07] MEDS: GABAPENTIN 300 MG CAP PO SCH ×2 (09:04→21:37)
[2018-06-07] MEDS: QUEtiapine FUMARATE 50 MG TAB PO SCH ×2 (09:04→21:37)
[2018-06-07] MEDS: amLODIPine 10 MG TAB PO SCH (09:04)
[2018-06-07 18:00] VITALS: BP 120/70
--- NOTE | 2018-06-07 18:06 | MHIPNPDOC ---
[facility] Progress Note Progress Note DATE OF SERVICE: 06/07/18 HISTORY OF THE PRESENT ILLNESS: as per ED report: "Pt states he had a friend drive him to the ED due to increased depression & SI with a plan to OD. Pt states that last night he had SI with a plan to OD. He reports increasing depression over the past few days. He stopped taking his meds because he was having side effects. Pt's main stressor is his living situation. He lives with his boss & does not think it is a good living environment for him. Pt reports poor sleep, poor appetite, poor motivation. VITAL SIGNS: See below. NEW TEST RESULTS: See below CURRENT MEDICATIONS: See below. MENTAL STATUS EXAMINATION: Patient is a 47-year old male, who is alert, disheveled, unkempt, dressed in his personal clothes, without lip smacking. In bed with poor eye contact. Excessive blinking is present. Speech: monotone. Impoverished, not spontaneous, not fluent. Short responses Thought processes including: Depressive thoughts with thought blocking Thought content: Depressive and anxious thoughts. He endorses feeling very guilty but doesn't elaborate. Description of associations: Intact Description of abnormal or psychotic thoughts: denies auditory and visual hallucinations and denies thought delusions but at times he seems to be responding to internal stimuli. Judgment: poor Insight: Poor. Orientation: Poor. Recent and remote memory: Impaired, more so, the short term memory Attention span and concentration: Fair. Fund of knowledge: Average. Mood: Anxious and very depressed. Affect: Very flat and very constricted. DIAGNOSES: 1. Bipolar disorder, mixed 2. Generalized anxiety disorder. ASSESSMENT: Patient continues to be depressed but he told one of the nurses today that he was feeling a little bit better regarding his depression. However his anxiety levels are still high. When I went looking for him he was attending group and this is positive. I understand that he took a shower and attended groups with much encouragement from staff but the important thing is that he was able to do it. Later on I found him laying in bed with very low energy levels, depressed, anxious with flat and constricted affect. His thought process is still impaired, he has severe thought blocking although he was able to speak a little bit more today. He continues to deny auditory and visual hallucinations. He is not paranoid, he is not angry or irritable. Wellbutrin will be increased to 150 mg hoping that it will help him with his depression. He knows that he is going to [facility] [place] although we don't have a date yet. Labs scheduled for tomorrow morning (CMP, CBC with differential, thyroid profile and lipid profile) MANAGEMENT: Increase wellbutrin 150 mg PO fluoxetine increased to 40 mg PO QAM mirtazapine to 7.5 mg PO QHS seroquel 50 mg PO BID cogentin 1 mg PO TID gabapentin 600 mg PO BID Trileptal 600 mg PO QHS Vital Signs Vital Signs Date Time Temp Pulse Resp B/P (MAP) Pulse Ox O2 Delivery O2 Flow Rate FiO2 06/07/18 09:04 90 130/80 06/07/18 06:44 98.5 16 06/06/18 11:30 Room Air Laboratory Data 24H Labs Laboratory Tests 2 06/06/18 21:54: Bedside Glucose (Misc Panel) 99 06/07/18 06:31: Bedside Glucose (Misc Panel) 93 06/07/18 12:00: Bedside Glucose (Misc Panel) 109H 06/07/18 17:12: Bedside Glucose (Misc Panel) 97 Current Medications Current Medications Acetaminophen (Tylenol Tab) 650 mg Q6HP PRN PO HEADACHE or DISCOMFORT; Start 05/12/18 at 18:15 Al Hydrox/Mg Hydrox/Simethicone (Mylanta) 30 ml Q4HP PRN PO HEARTBURN/INDIGESTION; Start 05/12/18 at 18:15 Amlodipine Besylate (Norvasc) 10 mg DAILY PO Last administered on 06/07/18at 09:04; Start 06/07/18 at 09:00 Aripiprazole (AbiLIFY) 2 mg QAM PO Last administered on 05/23/18at 08:46; Start 05/21/18 at 09:00; Stop 05/23/18 at 11:20; Status DC Aripiprazole (AbiLIFY) 2.5 mg BID PO Last administered on 05/30/18at 09:30; Start 05/23/18 at 21:00; Stop 05/30/18 at 10:57; Status DC Aripiprazole (AbiLIFY) 5 mg BID PO ; Start 05/31/18 at 21:00; Status Cancel Aripiprazole (AbiLIFY) 7.5 mg BID PO Last administered on 05/31/18 09:25; Start 05/30/18 at 21:00; Stop 05/31/18 at 12:58; Status DC Atorvastatin Calcium (Lipitor) 20 mg QHS PO Last administered on 06/06/18at 21:56; Start 05/12/18 at 21:00 Benztropine Mesylate (Cogentin) 1 mg BID PO Last administered on 05/15/18 08:26; Start 05/13/18 at 09:00; Stop 05/15/18 at 14:22; Status DC Benztropine Mesylate (Cogentin) 1 mg TID PO Last administered on 06/07/18 15:16; Start 05/15/18 at 16:00 Bupropion HCl (Wellbutrin) 50 mg DAILY PO Last administered on 06/06/18 08:40; Start 06/02/18 at 09:00; Stop 06/06/18 at 16:52; Status DC Bupropion HCl (Wellbutrin) 100 mg DAILY PO Last administered on 06/07/18 09:04; Start 06/07/18 at 09:00 Dextrose (Dextrose 50%) 25 ml ASDIRECTED PRN IV SEE LABEL COMMENTS; Start 05/12/18 at 20:30 Doxepin HCl (SINEquan) 50 mg QHS PO Last administered on 05/14/18at 21:13; Start 05/12/18 at 21:00; Stop 05/15/18 at 14:11; Status DC Fluoxetine HCl (PROzac) 10 mg DAILY PO Last administered on 05/14/18at 08:09; Start 05/13/18 at 09:00; Stop 05/14/18 at 21:05; Status DC Fluoxetine HCl (PROzac) 20 mg DAILY PO Last administered on 05/15/18 08:26; Start 05/15/18 at 09:00; Stop 05/15/18 at 14:08; Status DC Fluoxetine HCl (PROzac) 20 mg QAM PO Last administered on 06/01/18at 09:56; Start 06/01/18 at 09:00; Stop 06/01/18 at 15:35; Status DC Fluoxetine HCl (PROzac) 30 mg QAM PO Last administered on 05/31/18 09:25; Start 05/30/18 at 09:00; Stop 05/31/18 at 13:00; Status DC Fluoxetine HCl (PROzac) 40 mg QAM PO Last administered on 06/07/18at 09:03; S tart 06/02/18 at 09:00 Gabapentin (Neurontin) 600 mg BID PO Last administered on 06/07/18at 09:04; Start 05/12/18 at 21:00 Glucagon (Glucagon) 1 mg ASDIRECTED PRN SC SEE LABEL COMMENTS; Start 05/12/18 at 20:30 Glucose (Glucose) 16 GM ASDIRECTED PRN PO SEE LABEL COMMENTS; Start 05/12/18 at 20:30 Home Med (Med Rec Complete!) ASDIRECTED XX ; Start 05/12/18 at 17:45; Stop 05/12/18 at 17:47; Status DC Insulin Human Lispro (HumaLOG INSULIN) See Protocol Table AC SC Last administered on 06/07/18at 12:02; Start 05/13/18 at 07:30 Insulin Human Lispro (HumaLOG INSULIN) See Protocol Table QHS SC ; Start 05/12/18 at 21:00 Levothyroxine Sodium (Synthroid) 100 mcg DAILY@0600 PO Last administered on 06/07/18at 06:10; Start 05/13/18 at 06:00 Lisinopril (Prinivil) 5 mg DAILY PO Last administered on 06/03/18at 09:11; Start 05/12/18 at 20:30; Stop 06/03/18 at 10:04; Status DC Lisinopril (Prinivil) 15 mg DAILY PO Last administered on 06/07/18at 06:49; Start 06/04/18 at 09:00; Stop 06/07/18 at 11:47; Status DC Lisinopril (Prinivil) 20 mg DAILY PO ; Start 06/08/18 at 09:00 Lorazepam (Ativan) 0.5 mg STAT STAT PO Last administered on 05/31/18at 13:23; Start 05/31/18 at 13:12; Stop 05/31/18 at 13:13; Status DC Lorazepam (Ativan) 1 mg TID PO ; Start 06/01/18 at 16:00; Stop 06/01/18 at 16:00; Status DC Lorazepam (Ativan) 1 mg TID PO Last administered on 06/07/18 15:16; Start 06/01/18 at 21:00 Magnesium Hydroxide (Milk Of Magnesia) 30 ml DAILYPRN PRN PO CONSTIPATION; Start 05/12/18 at 18:15 Metformin HCl (Glucophage) 1,000 mg BID@08,18 PO Last administered on 06/07/18at 17:13; Start 05/13/18 at 18:00 Mirtazapine (Remeron) 7.5 mg QHS PO Last administered on 05/14/18at 21:13; Start 05/12/18 at 21:00; Stop 05/15/18 at 14:11; Status DC Mirtazapine (Remeron) 7.5 mg QHS PO Last administered on 06/06/18at 21:56; Start 05/31/18 at 21:00 Mirtazapine (Remeron) 30 mg QHS PO Last administered on 05/30/18at 20:30; Start 05/15/18 at 21:00; Stop 05/31/18 at 13:05; Status DC Non-Formulary Medication ( See Comment Field Below ) SEE COMMENTS SECTION 1T@10 XX ; Start 05/25/18 at 10:00; Stop 05/25/18 at 10:00; Status DC Non-Formulary Medication ( See Comment Field Below ) SEE LABEL COMMENTS DAILY XX ; Start 05/23/18 at 09:00; Stop 05/23/18 at 12:56; Status DC Olanzapine (ZyPREXA) 10 mg BID PO Last administered on 05/15/18at 08:26; Start 05/15/18 at 09:00; Stop 05/15/18 at 14:31; Status DC Olanzapine (ZyPREXA) 10 mg QHS PO Last administered on 05/13/18at 20:33; Start 05/12/18 at 21:00; Stop 05/14/18 at 21:05; Status DC Oxcarbazepine (Trileptal) 600 mg QHS PO Last administered on 06/06/18at 21:56; Start 05/12/18 at 21:00 Quetiapine Fumarate (SEROquel) 50 mg BID PO Last administered on 06/07/18at 09:04; Start 05/31/18 at 21:00 Risperidone (RisperDAL) 1 mg BID PO ; Start 05/31/18 at 21:00; Status Cancel Risperidone (RisperDAL) 1 mg TID PO Last administered on 05/31/18at 09:25; Start 05/15/18 at 16:00; Stop 05/31/18 at 12:55; Status DC Sertraline HCl (Zoloft) 25 mg QAM PO Last administered on 05/18/18at 08:55; Start 05/16/18 at 09:00; Stop 05/18/18 at 14:28; Status DC Sertraline HCl (Zoloft) 50 mg QAM PO Last administered on 05/19/18at 08:58; Start 05/19/18 at 09:00; Stop 05/19/18 at 14:55; Status DC Sertraline HCl (Zoloft) 75 mg QAM PO Last administered on 05/20/18at 08:16; Start 05/20/18 at 09:00; Stop 05/20/18 at 15:46; Status DC Sertraline HCl (Zoloft) 100 mg QAM PO Last administered on 05/23/18at 08:46; Start 05/21/18 at 09:00; Stop 05/23/18 at 11:20; Status DC Sertraline HCl (Zoloft) 125 mg QAM PO Last administered on 05/30/18at 09:29; Start 05/24/18 at 09:00; Stop 05/30/18 at 09:50; Status DC Trazodone HCl (Desyrel) 50 mg QHSP PRN PO INSOMNIA Last administered on 05/16at 22:43; Start 05/12/18 at 18:15 Allergies Coded Allergies: Penicillins (Verified Allergy, Unknown, 07/19/12) Penicillins Cross Reactors (Verified Allergy, Unknown, 07/19/12) YAAKOV BAILEY MD Jun 07, 2018 18:06
[2018-06-07] MEDS: MIRTAZAPINE 7.5MG PER 1/2 TABLET PO SCH (21:35)
[2018-06-07] MEDS: ATORVASTATIN 20 MG TAB PO SCH (21:36)
[2018-06-07] MEDS: OXcarbazepine 300 MG TAB PO SCH (21:37)
[2018-06-08] MEDS: LEVOTHYROXINE 100MCG TABLET (0.1MG) PO SCH (05:54)
[2018-06-08 06:00] VITALS: BP 134/81
[2018-06-08] MEDS: HumaLOG INSULIN (NovoLOG) PER UNIT SC SCH ×4 (06:40→21:00)
[2018-06-08] MEDS: metFORMIN (GLUCOPHAGE) 1000 MG TABLET PO SCH ×2 (07:37→17:07)
[2018-06-08 08:04] LABS: HEMATOCRIT 45.3 % (42.0-52.0); HEMOGLOBIN 15.2 g/dl (13.5-17.5); MEAN CORPUSCULAR HGB CONC 33.6 g/dl (32.0-36.5); MEAN CORPUSCULAR VOLUME 83.6 fl (80.0-96.0); PLATELET COUNT, AUTOMATED 253 10^3/uL (150-450); RED BLOOD COUNT 5.42 10^6/uL (4.30-6.10); WHITE BLOOD COUNT 8.7 10^3/uL (4.0-10.0)
[2018-06-08 08:40] LABS: ALBUMIN 3.8 GM/DL (3.2-5.2); ALT/SGPT 51 U/L (12-78); BILIRUBIN,TOTAL 0.4 MG/DL (0.2-1.0); BLOOD UREA NITROGEN 11 MG/DL (7-18); CALCIUM LEVEL 8.1 MG/DL (8.5-10.1); CARBON DIOXIDE LEVEL 29 MEQ/L (21-32); CHLORIDE LEVEL 102 MEQ/L (98-107); CHOLESTEROL LEVEL 141 MG/DL (<200); CHOLESTEROL RISK RATIO 3.204 (<5); CREATININE FOR GFR 0.72 MG/DL (0.70-1.30); FREE THYROXINE INDEX 3.6 % (1.4-3.8); GLOMERULAR FILTRATION RATE > 60.0 (>60); GLUCOSE, FASTING 89 MG/DL (70-100); HDL CHOLESTEROL 44 MG/DL (>40); LDL CHOLESTEROL 71 MG/DL (<100); NON-HDL-C 97 MG/DL; SODIUM LEVEL 139 MEQ/L (136-145); T UPTAKE 33 % (33-40); THYROXINE (T4) 10.8 UG/DL (4.5-12.0); TRIGLYCERIDES LEVEL 128 MG/DL (<150)
[2018-06-08] MEDS: LORazepam 1 MG TAB PO SCH ×3 (09:40→21:21)
[2018-06-08] MEDS: GABAPENTIN 300 MG CAP PO SCH ×2 (09:41→21:21)
[2018-06-08] MEDS: FLUoxetine 20 MG CAP PO SCH (09:41)
[2018-06-08] MEDS: BENZTROPINE 1 MG TAB PO SCH ×3 (09:41→21:21)
[2018-06-08] MEDS: amLODIPine 10 MG TAB PO SCH (09:41)
[2018-06-08] MEDS: QUEtiapine FUMARATE 50 MG TAB PO SCH ×2 (09:41→21:21)
[2018-06-08] MEDS: buPROPion 75 MG TAB PO SCH (09:41)
[2018-06-08] MEDS: LISINOPRIL 20 MG TAB PO SCH (09:42)
[2018-06-08 18:00] VITALS: BP 140/90
[2018-06-08] MEDS: MIRTAZAPINE 7.5MG PER 1/2 TABLET PO SCH (21:21)
[2018-06-08] MEDS: ATORVASTATIN 20 MG TAB PO SCH (21:21)
[2018-06-08] MEDS: OXcarbazepine 300 MG TAB PO SCH (21:21)
[2018-06-09] MEDS: LEVOTHYROXINE 100MCG TABLET (0.1MG) PO SCH (06:19)
[2018-06-09 06:43] VITALS: BP 129/80
[2018-06-09] MEDS: HumaLOG INSULIN (NovoLOG) PER UNIT SC SCH ×4 (07:06→21:00)
[2018-06-09] MEDS: amLODIPine 10 MG TAB PO SCH (08:01)
[2018-06-09] MEDS: LISINOPRIL 20 MG TAB PO SCH (08:01)
[2018-06-09] MEDS: buPROPion 75 MG TAB PO SCH (08:02)
[2018-06-09] MEDS: FLUoxetine 20 MG CAP PO SCH (08:02)
[2018-06-09] MEDS: QUEtiapine FUMARATE 50 MG TAB PO SCH ×2 (08:02→21:00)
[2018-06-09] MEDS: GABAPENTIN 300 MG CAP PO SCH ×2 (08:02→22:45)
[2018-06-09] MEDS: metFORMIN (GLUCOPHAGE) 1000 MG TABLET PO SCH ×2 (08:02→17:16)
[2018-06-09] MEDS: LORazepam 1 MG TAB PO SCH ×3 (08:02→21:00)
[2018-06-09] MEDS: BENZTROPINE 1 MG TAB PO SCH ×3 (08:02→21:00)
--- NOTE | 2018-06-09 17:31 | MHIPNPDOC ---
[facility] Progress Note Progress Note DATE OF SERVICE: 06/08/18 HISTORY OF THE PRESENT ILLNESS: as per ED report: "Pt states he had a friend drive him to the ED due to increased depression & SI with a plan to OD. Pt states that last night he had SI with a plan to OD. He reports increasing depression over the past few days. He stopped taking his meds because he was having side effects. Pt's main stressor is his living situation. He lives with his boss & does not think it is a good living environment for him. Pt reports poor sleep, poor appetite, poor motivation. VITAL SIGNS: See below. NEW TEST RESULTS: See below CURRENT MEDICATIONS: See below. MENTAL STATUS EXAMINATION: Patient is a 47-year old male, who is alert, disheveled, unkempt, dressed in his personal clothes, without lip smacking. In bed with poor eye contact. Excessive blinking is present. Speech: monotone. Impoverished,a little more fluent. Short responses Thought processes including: Depressive thoughts, anxious thoughts, less though blocking Thought content: Depressive and anxious thoughts. He endorses feeling very guilty but doesn't elaborate. Description of associations: Intact Description of abnormal or psychotic thoughts: denies auditory and visual hallucinations, denies paranoid delusions, admits to fleeting suicidal thoughts. Judgment: poor Insight: Poor. Orientation: Poor. Recent and remote memory: Impaired, more so, the short term memory Attention span and concentration: Fair. Fund of knowledge: Average. Mood: Anxious and very depressed. Affect: Very flat and very constricted. DIAGNOSES: 1. Bipolar disorder, mixed 2. Generalized anxiety disorder. ASSESSMENT: Patient labs are within normal limits. he was seen in his room although he told me he got up and got a shower, on his own initiative. He says he is beginning to feel a little better, he is less depressed, but his speech is still impoverished, with short responses, although is a little more fluent MANAGEMENT: Increase wellbutrin 150 mg PO fluoxetine increased to 40 mg PO QAM mirtazapine to 7.5 mg PO QHS seroquel 50 mg PO BID cogentin 1 mg PO TID gabapentin 600 mg PO BID Trileptal 600 mg PO QHS Vital Signs Vital Signs Date Time Temp Pulse Resp B/P (MAP) Pulse Ox O2 Delivery O2 Flow Rate FiO2 06/08/18 18:00 98.1 92 18 140/90 (107) 06/06/18 11:30 Room Air Laboratory Data 24H Labs Laboratory Tests 2 06/07/18 21:36: Bedside Glucose (Misc Panel) 121H 06/08/18 05:53: Bedside Glucose (Misc Panel) 102 06/08/18 07:28: Nucleated Red Blood Cells % (auto) 0.0, Anion Gap 8, Glomerular Filtration Rate > 60.0, Blood Urea Nitrogen 11, Creatinine 0.72, Sodium Level 139, Potassium Level 4.0, Chloride Level 102, Carbon Dioxide Level 29, Calcium Level 8.1L, Aspartate Amino Transf (AST/SGOT) 31, Alanine Aminotransferase (ALT/SGPT) 51, Alkaline Phosphatase 106, Total Bilirubin 0.4, Triglycerides Level 128, LDL Cholesterol 71, Total Protein 7.0, Albumin 3.8, Albumin/Globulin Ratio 1.19, To marianna Cholesterol 141, Non-HDL Cholesterol (LDL + VLDL) 97, Total HDL Cholesterol 44, Cholesterol/HDL Ratio 3.204, Thyroid Stimulating Hormone (TSH) 0.650, Free Thyroxine Index 3.6, Thyroxine (T4) 10.8, Triiodothyronine (T3) Uptake 33 06/08/18 11:57: Bedside Glucose (Misc Panel) 109H 06/08/18 17:04: Bedside Glucose (Misc Panel) 129H CBC/BMP Laboratory Tests 06/08/18 07:28 Red Blood Count 5.42, Mean Corpuscular Volume 83.6, Mean Corpuscular Hemoglobin 28.0, Mean Corpuscular Hemoglobin Concent 33.6, Red Cell Distribution Width 13.2, Calcium Level 8.1 L, Aspartate Amino Transf (AST/SGOT) 31, Alanine Aminotransferase (ALT/SGPT) 51, Alkaline Phosphatase 106, Total Bilirubin 0.4, Triglycerides Level 128, LDL Cholesterol 71, Total Protein 7.0, Albumin 3.8 Current Medications Current Medications Acetaminophen (Tylenol Tab) 650 mg Q6HP PRN PO HEADACHE or DISCOMFORT; Start 05/12/18 at 18:15 Al Hydrox/Mg Hydrox/Simethicone (Mylanta) 30 ml Q4HP PRN PO HEARTBURN/INDIGESTION; Start 05/12/18 at 18:15 Amlodipine Besylate (Norvasc) 10 mg DAILY PO Last administered on 06/08/18 09:41; Start 06/07/18 at 09:00 Aripiprazole (AbiLIFY) 2 mg QAM PO Last administered on 05/23/18at 08:46; Start 05/21/18 at 09:00; Stop 05/23/18 at 11:20; Status DC Aripiprazole (AbiLIFY) 2.5 mg BID PO Last administered on 05/30/18 09:30; Start 05/23/18 at 21:00; Stop 05/30/18 at 10:57; Status DC Aripiprazole (AbiLIFY) 5 mg BID PO ; Start 05/31/18 at 21:00; Status Cancel Aripiprazole (AbiLIFY) 7.5 mg BID PO Last administered on 05/31/18 09:25; Start 05/30/18 at 21:00; Stop 05/31/18 at 12:58; Status DC Atorvastatin Calcium (Lipitor) 20 mg QHS PO Last administered on 06/07/18at 21:36; Start 05/12/18 at 21:00 Benztropine Mesylate (Cogentin) 1 mg BID PO Last administered on 05/15/18at 08:26; Start 05/13/18 at 09:00; Stop 05/15/18 at 14:22; Status DC Benztropine Mesylate (Cogentin) 1 mg TID PO Last administered on 06/08/18at 15:33; Start 05/15/18 at 16:00 Bupropion HCl (Wellbutrin) 50 mg DAILY PO Last administered on 06/06/18at 08:40; Start 06/02/18 at 09:00; Stop 06/06/18 at 16:52; Status DC Bupropion HCl (Wellbutrin) 100 mg DAILY PO Last administered on 06/07/18 09:04; Start 06/07/18 at 09:00; Stop 06/07/18 at 17:54; Status DC Bupropion HCl (Wellbutrin) 150 mg DAILY PO Last administered on 06/08/18at 09:41; Start 06/08/18 at 09:00 Dextrose (Dextrose 50%) 25 ml ASDIRECTED PRN IV SEE LABEL COMMENTS; Start 05/12/18 at 20:30 Doxepin HCl (SINEquan) 50 mg QHS PO Last administered on 05/14/18at 21:13; Start 05/12/18 at 21:00; Stop 05/15/18 at 14:11; Status DC Fluoxetine HCl (PROzac) 10 mg DAILY PO Last administered on 05/14/18at 08:09; Start 05/13/18 at 09:00; Stop 05/14/18 at 21:05; Status DC Fluoxetine HCl (PROzac) 20 mg DAILY PO Last administered on 05/15/18at 08:26; Start 05/15/18 at 09:00; Stop 05/15/18 at 14:08; Status DC Fluoxetine HCl (PROzac) 20 mg QAM PO Last administered on 06/01/18at 09:56; Start 06/01/18 at 09:00; Stop 06/01/18 at 15:35; Status DC Fluoxetine HCl (PROzac) 30 mg QAM PO Last administered on 05/31/18at 09:25; Start 05/30/18 at 09:00; Stop 05/31/18 at 13:00; Status DC Fluoxetine HCl (PROzac) 40 mg QAM PO Last administered on 06/08/18at 09:41; Start 06/02/18 at 09:00 Gabapentin (Neurontin) 600 mg BID PO Last administered on 06/08/18at 09:41; Start 05/12/18 at 21:00 Glucagon (Glucagon) 1 mg ASDIRECTED PRN SC SEE LABEL COMMENTS; Start 05/12/18 at 20:30 Glucose (Glucose) 16 GM ASDIRECTED PRN PO SEE LABEL COMMENTS; Start 05/12/18 at 20:30 Home Med (Med Rec Complete!) ASDIRECTED XX ; Start 05/12/18 at 17:45; Stop 05/12/18 at 17:47; Status DC Insulin Human Lispro (HumaLOG INSULIN) See Protocol Table AC SC Last administered on 06/08/18at 17:07; Start 05/13/18 at 07:30 Insulin Human Lispro (HumaLOG INSULIN) See Protocol Table QHS SC ; Start at 21:00 Levothyroxine Sodium (Synthroid) 100 mcg DAILY@0600 PO Last administered on 06/08/18at 05:54; Start 05/13/18 at 06:00 Lisinopril (Prinivil) 5 mg DAILY PO Last administered on 06/03/18at 09:11; Start 05/12/18 at 20:30; Stop 06/03/18 at 10:04; Status DC Lisinopril (Prinivil) 15 mg DAILY PO Last administered on 06/07/18at 06:49; Start 06/04/18 at 09:00; Stop 06/07/18 at 11:47; Status DC Lisinopril (Prinivil) 20 mg DAILY PO Last administered on 06/08/18at 09:42; Start 06/08/18 at 09:00 Lorazepam (Ativan) 0.5 mg STAT STAT PO Last administered on 05/31/18at 13:23; Start 05/31/18 at 13:12; Stop 05/31/18 at 13:13; Status DC Lorazepam (Ativan) 1 mg TID PO ; Start 06/01/18 at 16:00; Stop 06/01/18 at 16:00; Status DC Lorazepam (Ativan) 1 mg TID PO Last administered on 06/08/18at 15:33; Start 06/01/18 at 21:00 Magnesium Hydroxide (Milk Of Magnesia) 30 ml DAILYPRN PRN PO CONSTIPATION; Start 05/12/18 at 18:15 Metformin HCl (Glucophage) 1,000 mg BID@08,18 PO Last administered on 06/08/18at 17:07; Start 05/13/18 at 18:00 Mirtazapine (Remeron) 7.5 mg QHS PO Last administered on 05/14/18at 21:13; Start 05/12/18 at 21:00; Stop 05/15/18 at 14:11; Status DC Mirtazapine (Remeron) 7.5 mg QHS PO Last administered on 06/07/18at 21:35; Start 05/31/18 at 21:00 Mirtazapine (Remeron) 30 mg QHS PO Last administered on 05/30/18at 20:30; Start 05/15/18 at 21:00; Stop 05/31/18 at 13:05; Status DC Non-Formulary Medication ( See Comment Field Below ) SEE COMMENTS SECTION 1T@10 XX ; Start 05/25/18 at 10:00; Stop 05/25/18 at 10:00; Status DC Non-Formulary Medication ( See Comment Field Below ) SEE LABEL COMMENTS DAILY XX ; Start 05/23/18 at 09:00; Stop 05/23/18 at 12:56; Status DC Olanzapine (ZyPREXA) 10 mg BID PO Last administered on 05/15/18at 08:26; Start 05/15/18 at 09:00; Stop 05/15/18 at 14:31; Status DC Olanzapine (ZyPREXA) 10 mg QHS PO Last administered on 05/13/18at 20:33; Start 05/12/18 at 21:00; Stop 05/14/18 at 21:05; Status DC Oxcarbazepine (Trileptal) 600 mg QHS PO Last administered on 06/07/18at 21:37; Start 05/12/18 at 21:00 Quetiapine Fumarate (SEROquel) 50 mg BID PO Last administered on 06/08/18at 09:41; Start 05/31/18 at 21:00 Risperidone (RisperDAL) 1 mg BID PO ; Start 05/31/18 at 21:00; Status Cancel Risperidone (RisperDAL) 1 mg TID PO Last administered on 05/31/18at 09:25; Start 05/15/18 at 16:00; Stop 05/31/18 at 12:55; Status DC Sertraline HCl (Zoloft) 25 mg QAM PO Last administered on 05/18/18at 08:55; Start 05/16/18 at 09:00; Stop 05/18/18 at 14:28; Status DC Sertraline HCl (Zoloft) 50 mg QAM PO Last administered on 05/19/18at 08:58; Start 05/19/18 at 09:00; Stop 05/19/18 at 14:55; Status DC Sertraline HCl (Zoloft) 75 mg QAM PO Last administered on 05/20/18at 08:16; Start 05/20/18 at 09:00; Stop 05/20/18 at 15:46; Status DC Sertraline HCl (Zoloft) 100 mg QAM PO Last administered on 05/23/18at 08:46; Start 05/21/18 at 09:00; Stop 05/23/18 at 11:20; Status DC Sertraline HCl (Zoloft) 125 mg QAM PO Last administered on 05/30/18at 09:29; Start 05/24/18 at 09:00; Stop 05/30/18 at 09:50; Status DC Trazodone HCl (Desyrel) 50 mg QHSP PRN PO INSOMNIA Last administered on 05/16/18at 22:43; Start 05/12/18 at 18:15 Allergies Coded Allergies: Penicillins (Verified Allergy, Unknown, 07/19/12) Penicillins Cross Reactors (Verified Allergy, Unknown, 07/19/12) YAAKOV BAILEY MD Jun 08, 2018 20:57
--- NOTE | 2018-06-09 17:39 | MHIPNPDOC ---
[facility] Progress Note Progress Note DATE OF SERVICE: 06/09/18 HISTORY OF THE PRESENT ILLNESS: as per ED report: "Pt states he had a friend drive him to the ED due to increased depression & SI with a plan to OD. Pt states that last night he had SI with a plan to OD. He reports increasing depression over the past few days. He stopped taking his meds because he was having side effects. Pt's main stressor is his living situation. He lives with his boss & does not think it is a good living environment for him. Pt reports poor sleep, poor appetite, poor motivation. VITAL SIGNS: See below. NEW TEST RESULTS: See below CURRENT MEDICATIONS: See below. MENTAL STATUS EXAMINATION: Patient is a 47-year old male, who is alert, disheveled, unkempt, dressed in his personal clothes, without lip smacking. In bed with poor eye contact. Excessive blinking is present. Speech: monotone. Impoverished,a little more fluent. Short responses Thought processes including: Depressive thoughts, anxious thoughts, less though blocking Thought content: Depressive and anxious thoughts. He endorses feeling very guilty but doesn't elaborate. Description of associations: Intact Description of abnormal or psychotic thoughts: denies auditory and visual hallucinations, denies paranoid delusions, admits to fleeting suicidal thoughts. Judgment: poor Insight: Poor. Orientation: Poor. Recent and remote memory: Impaired, more so, the short term memory Attention span and concentration: Fair. Fund of knowledge: Average. Mood: Anxious and very depressed. Affect: Very flat and very constricted. DIAGNOSES: 1. Bipolar disorder, mixed 2. Generalized anxiety disorder. ASSESSMENT: Mental status exam has not changed much, he continues to be depressed, has flat affect, has thought blocking, he denies SI at that moment, denies HI, denies Av hallucinations but he is not stable. Will increase Wellbutrin 200 mgs Po QAM MANAGEMENT: Increase wellbutrin 200 mg PO fluoxetine increased to 40 mg PO QAM mirtazapine to 7.5 mg PO QHS seroquel 50 mg PO BID cogentin 1 mg PO TID gabapentin 600 mg PO BID Trileptal 600 mg PO QHS Vital Signs Vital Signs Date Time Temp Pulse Resp B/P (MAP) Pulse Ox O2 Delivery O2 Flow Rate FiO2 06/09/18 08:01 129/80 06/09/18 06:43 98.7 79 16 06/06/18 11:30 Room Air Laboratory Data 24H Labs Laboratory Tests 2 06/08/18 21:17: Bedside Glucose (Misc Panel) 84 06/09/18 06:22: Bedside Glucose (Misc Panel) 91 06/09/18 12:25: Bedside Glucose (Misc Panel) 86 06/09/18 17:14: Bedside Glucose (Misc Panel) 143H Current Medications Current Medications Acetaminophen (Tylenol Tab) 650 mg Q6HP PRN PO HEADACHE or DISCOMFORT; Start 05/12/18 at 18:15 Al Hydrox/Mg Hydrox/Simethicone (Mylanta) 30 ml Q4HP PRN PO HEARTBURN/INDIGESTION; Start 05/12/18 at 18:15 Amlodipine Besylate (Norvasc) 10 mg DAILY PO Last administered on 06/09/18at 08:01; Start 06/07/18 at 09:00 Aripiprazole (AbiLIFY) 2 mg QAM PO Last administered on 05/23/18at 08:46; Start 05/21/18 at 09:00; Stop 05/23/18 at 11:20; Status DC Aripiprazole (AbiLIFY) 2.5 mg BID PO Last administered on 05/30/18at 09:30; Start 05/23/18 at 21:00; Stop 05/30/18 at 10:57; Status DC Aripiprazole (AbiLIFY) 5 mg BID PO ; Start 05/31/18 at 21:00; Status Cancel Aripiprazole (AbiLIFY) 7.5 mg BID PO Last administered on 05/31/18at 09:25; Start 05/30/18 at 21:00; Stop 05/31/18 at 12:58; Status DC Atorvastatin Calcium (Lipitor) 20 mg QHS PO Last administered on 06/08/18at 21:21; Start 05/12/18 at 21:00 Benztropine Mesylate (Cogentin) 1 mg BID PO Last administered on 05/15/18at 08:2 6; Start 05/13/18 at 09:00; Stop 05/15/18 at 14:22; Status DC Benztropine Mesylate (Cogentin) 1 mg TID PO Last administered on 06/09/18at 15:44; Start 05/15/18 at 16:00 Bupropion HCl (Wellbutrin) 50 mg DAILY PO Last administered on 06/06/18at 08:40; Start 06/02/18 at 09:00; Stop 06/06/18 at 16:52; Status DC Bupropion HCl (Wellbutrin) 100 mg DAILY PO Last administered on 06/07/18at 09:04; Start 06/07/18 at 09:00; Stop 06/07/18 at 17:54; Status DC Bupropion HCl (Wellbutrin) 150 mg DAILY PO Last administered on 06/09/18at 08:02; Start 06/08/18 at 09:00 Dextrose (Dextrose 50%) 25 ml ASDIRECTED PRN IV SEE LABEL COMMENTS; Start 05/12/18 at 20:30 Doxepin HCl (SINEquan) 50 mg QHS PO Last administered on 05/14/18at 21:13; Start 05/12/18 at 21:00; Stop 05/15/18 at 14:11; Status DC Fluoxetine HCl (PROzac) 10 mg DAILY PO Last administered on 05/14/18at 08:09; Start 05/13/18 at 09:00; Stop 05/14/18 at 21:05; Status DC Fluoxetine HCl (PROzac) 20 mg DAILY PO Last administered on 05/15/18at 08:26; Start 05/15/18 at 09:00; Stop 05/15/18 at 14:08; Status DC Fluoxetine HCl (PROzac) 20 mg QAM PO Last administered on 06/01/18at 09:56; Start 06/01/18 at 09:00; Stop 06/01/18 at 15:35; Status DC Fluoxetine HCl (PROzac) 30 mg QAM PO Last administered on 05/31/18at 09:25; Start 05/30/18 at 09:00; Stop 05/31/18 at 13:00; Status DC Fluoxetine HCl (PROzac) 40 mg QAM PO Last administered on 06/09/18at 08:02; Start 06/02/18 at 09:00 Gabapentin (Neurontin) 600 mg BID PO Last administered on 06/09/18at 08:02; Start 05/12/18 at 21:00 Glucagon (Glucagon) 1 mg ASDIRECTED PRN SC SEE LABEL COMMENTS; Start 05/12/18 at 20:30 Glucose (Glucose) 16 GM ASDIRECTED PRN PO SEE LABEL COMMENTS; Start 05/12/18 at 20:30 Home Med (Med Rec Complete!) ASDIRECTED XX ; Start 05/12/18 at 17:45; Stop 05/12/18 at 17:47; Status DC Insulin Human Lispro (HumaLOG INSULIN) See Protocol Table AC SC Last administered on 06/08/18at 17:07; Start 05/13/18 at 07:30 Insulin Human Lispro (HumaLOG INSULIN) See Protocol Table QHS SC ; Start 05/12/18 at 21:00 Levothyroxine Sodium (Synthroid) 100 mcg DAILY@0600 PO Last administered on 06/09/18at 06:19; Start 05/13/18 at 06:00 Lisinopril (Prinivil) 5 mg DAILY PO Last administered on 06/03/18at 09:11; Start 05/12/18 at 20:30; Stop 06/03/18 at 10:04; Status DC Lisinopril (Prinivil) 15 mg DAILY PO Last administered on 06/07/18at 06:49; Start 06/04/18 at 09:00; Stop 06/07/18 at 11:47; Status DC Lisinopril (Prinivil) 20 mg DAILY PO Last administered on 06/09/18at 08:01; Start 06/08/18 at 09:00 Lorazepam (Ativan) 0.5 mg STAT STAT PO Last administered on 05/31/18at 13:23; Start 05/31/18 at 13:12; Stop 05/31/18 at 13:13; Status DC Lorazepam (Ativan) 1 mg TID PO ; Start 06/01/18 at 16:00; Stop 06/01/18 at 16:00; Status DC Lorazepam (Ativan) 1 mg TID PO Last administered on 06/09/18at 15:44; Start 06/01/18 at 21:00 Magnesium Hydroxide (Milk Of Magnesia) 30 ml DAILYPRN PRN PO CONSTIPATION; Start 05/12/18 at 18:15 Metformin HCl (Glucophage) 1,000 mg BID@08,18 PO Last administered on 06/09/18at 08:02; Start 05/13/18 at 18:00 Mirtazapine (Remeron) 7.5 mg QHS PO Last administered on 05/14/18at 21:13; Start 05/12/18 at 21:00; Stop 05/15/18 at 14:11; Status DC Mirtazapine (Remeron) 7.5 mg QHS PO Last administered on 06/08/18at 21:21; Start 05/31/18 at 21:00 Mirtazapine (Remeron) 30 mg QHS PO Last administered on 05/30/18at 20:30; Start 05/15/18 at 21:00; Stop 05/31/18 at 13:05; Status DC Non-Formulary Medication ( See Comment Field Below ) SEE COMMENTS SECTION 1T@10 XX ; Start 05/25/18 at 10:00; Stop 05/25/18 at 10:00; Status DC Non-Formulary Medication ( See Comment Field Below ) SEE LABEL COMMENTS DAILY XX ; Start 05/23/18 at 09:00; Stop 05/23/18 at 12:56; Status DC Olanzapine (ZyPREXA) 10 mg BID PO Last administered on 05/15/18at 08:26; Start 05/15/18 at 09:00; Stop 05/15/18 at 14:31; Status DC Olanzapine (ZyPREXA) 10 mg QHS PO Last administered on 05/13/18at 20:33; Start 05/12/18 at 21:00; Stop 05/14/18 at 21:05; Status DC Oxcarbazepine (Trileptal) 600 mg QHS PO Last administered on 06/08/18at 21:21; Start 05/12/18 at 21:00 Quetiapine Fumarate (SEROquel) 50 mg BID PO Last administered on 06/09/18at 08:02; Start 05/31/18 at 21:00 Risperidone (RisperDAL) 1 mg BID PO ; Start 05/31/18 at 21:00; Status Cancel Risperidone (RisperDAL) 1 mg TID PO Last administered on 05/31/18at 09:25; S tart 05/15/18 at 16:00; Stop 05/31/18 at 12:55; Status DC Sertraline HCl (Zoloft) 25 mg QAM PO Last administered on 05/18/18at 08:55; Start 05/16/18 at 09:00; Stop 05/18/18 at 14:28; Status DC Sertraline HCl (Zoloft) 50 mg QAM PO Last administered on 05/19/18at 08:58; Start 05/19/18 at 09:00; Stop 05/19/18 at 14:55; Status DC Sertraline HCl (Zoloft) 75 mg QAM PO Last administered on 05/20/18at 08:16; Start 05/20/18 at 09:00; Stop 05/20/18 at 15:46; Status DC Sertraline HCl (Zoloft) 100 mg QAM PO Last administered on 05/23/18at 08:46; Start 05/21/18 at 09:00; Stop 05/23/18 at 11:20; Status DC Sertraline HCl (Zoloft) 125 mg QAM PO Last administered on 05/30/18at 09:29; Start 05/24/18 at 09:00; Stop 05/30/18 at 09:50; Status DC Trazodone HCl (Desyrel) 50 mg QHSP PRN PO INSOMNIA Last administered on 05/16/18at 22:43; Start 05/12/18 at 18:15 Allergies Coded Allergies: Penicillins (Verified Allergy, Unknown, 07/19/12) Penicillins Cross Reactors (Verified Allergy, Unknown, 07/19/12) YAAKOV BAILEY MD Jun 09, 2018 17:39
[2018-06-09 18:00] VITALS: BP 120/77
[2018-06-09] MEDS: OXcarbazepine 300 MG TAB PO SCH (21:00)
[2018-06-09] MEDS: ATORVASTATIN 20 MG TAB PO SCH (21:00)
[2018-06-09] MEDS: MIRTAZAPINE 7.5MG PER 1/2 TABLET PO SCH (21:00)
[2018-06-10] MEDS: LEVOTHYROXINE 100MCG TABLET (0.1MG) PO SCH (06:27)
[2018-06-10] MEDS: HumaLOG INSULIN (NovoLOG) PER UNIT SC SCH ×4 (06:39→21:00)
[2018-06-10 06:49] VITALS: BP 146/84
[2018-06-10] MEDS: metFORMIN (GLUCOPHAGE) 1000 MG TABLET PO SCH ×2 (07:57→17:07)
[2018-06-10] MEDS: LORazepam 1 MG TAB PO SCH ×3 (08:49→21:04)
[2018-06-10] MEDS: BENZTROPINE 1 MG TAB PO SCH ×3 (08:49→21:04)
[2018-06-10] MEDS: FLUoxetine 20 MG CAP PO SCH (08:49)
[2018-06-10] MEDS: amLODIPine 10 MG TAB PO SCH (08:49)
[2018-06-10] MEDS: buPROPion 75 MG TAB PO SCH (08:49)
[2018-06-10] MEDS: QUEtiapine FUMARATE 50 MG TAB PO SCH ×2 (08:50→21:03)
[2018-06-10] MEDS: LISINOPRIL 20 MG TAB PO SCH (08:50)
[2018-06-10] MEDS: GABAPENTIN 300 MG CAP PO SCH ×2 (08:50→21:04)
[2018-06-10 18:00] VITALS: BP 102/60
[2018-06-10] MEDS: MIRTAZAPINE 7.5MG PER 1/2 TABLET PO SCH (21:02)
[2018-06-10] MEDS: OXcarbazepine 300 MG TAB PO SCH (21:03)
[2018-06-10] MEDS: ATORVASTATIN 20 MG TAB PO SCH (21:04)
[2018-06-10] MEDS: buPROPion **SR TABLET** (ZYBAN) 150MG PO SCH (21:04)
--- NOTE | 2018-06-10 21:04 | MHIPNPDOC ---
[facility] Progress Note Progress Note DATE OF SERVICE: 06/10/18 HISTORY OF THE PRESENT ILLNESS: as per ED report: "Pt states he had a friend drive him to the ED due to increased depression & SI with a plan to OD. Pt states that last night he had SI with a plan to OD. He reports increasing depression over the past few days. He stopped taking his meds because he was having side effects. Pt's main stressor is his living situation. He lives with his boss & does not think it is a good living environment for him. Pt reports poor sleep, poor appetite, poor motivation. VITAL SIGNS: See below. NEW TEST RESULTS: See below CURRENT MEDICATIONS: See below. MENTAL STATUS EXAMINATION: Patient is a 47-year old male, who is alert, disheveled, unkempt, dressed in his personal clothes, without lip smacking. In bed with poor eye contact. Excessive blinking is present. Speech: monotone. Impoverished,a little more fluent. Short responses Thought processes including: Less depressive thoughts, less anxios thoughts, less thought blocking Thought content: Focused on getting better Description of associations: Intact Description of abnormal or psychotic thoughts: denies auditory and visual hallucinations, denies paranoid delusions, admits to fleeting suicidal thoughts. Judgment: poor Insight: Poor. Orientation: Poor. Recent and remote memory: Impaired, more so, the short term memory Attention span and concentration: Fair. Fund of knowledge: Average. Mood: Less depressed Affect: More reactive, appropriate, congruent with mood DIAGNOSES: 1. Bipolar disorder, mixed 2. Generalized anxiety disorder. ASSESSMENT: Patient is showing signs of improvement, he was seen walking around the hallways, he went and prepared some coffee, he shaved and for the first time in many, many days, he smiled. I saw him in the morning and his affect was still constricted/blunted but in the afternoon I saw him again and he already had shaved and was smiling. Will be monitoring him closely because he is on a high dose of Wellbutrin but he needed it to be increased because he was not responding to medications and was suffering a severe depression. There's a risk of him becoming manic but he is on mood stabilizers that will help prevent a bout of winsome. MANAGEMENT: Increase wellbutrin 300 mg PO daily (150 mgs PO BID) fluoxetine increased to 40 mg PO QAM mirtazapine to 7.5 mg PO QHS seroquel 50 mg PO BID cogentin 1 mg PO TID gabapentin 600 mg PO BID Trileptal 600 mg PO QHS TIME SPENT: 20 minutes Vital Signs Vital Signs Date Time Temp Pulse Resp B/P (MAP) Pulse Ox O2 Delivery O2 Flow Rate FiO2 06/10/18 18:00 97.8 69 16 102/60 (74) 06/06/18 11:30 Room Air Laboratory Data 24H Labs Laboratory Tests 2 06/10/18 06:31: Bedside Glucose (Misc Panel) 105 06/10/18 11:31: Bedside Glucose (Misc Panel) 62L 06/10/18 16:42: Bedside Glucose (Misc Panel) 128H Current Medications Current Medications Acetaminophen (Tylenol Tab) 650 mg Q6HP PRN PO HEADACHE or DISCOMFORT; Start 05/12/18 at 18:15 Al Hydrox/Mg Hydrox/Simethicone (Mylanta) 30 ml Q4HP PRN PO HEARTB URN/INDIGESTION; Start 05/12/18 at 18:15 Amlodipine Besylate (Norvasc) 10 mg DAILY PO Last administered on 06/10/18at 08:49; Start 06/07/18 at 09:00 Aripiprazole (AbiLIFY) 2 mg QAM PO Last administered on 05/23/18at 08:46; Start 05/21/18 at 09:00; Stop 05/23/18 at 11:20; Status DC Aripiprazole (AbiLIFY) 2.5 mg BID PO Last administered on 05/30/18at 09:30; Start 05/23/18 at 21:00; Stop 05/30/18 at 10:57; Status DC Aripiprazole (AbiLIFY) 5 mg BID PO ; Start 05/31/18 at 21:00; Status Cancel Aripiprazole (AbiLIFY) 7.5 mg BID PO Last administered on 05/31/18at 09:25; Start 05/30/18 at 21:00; Stop 05/31/18 at 12:58; Status DC Atorvastatin Calcium (Lipitor) 20 mg QHS PO Last administered on 06/09/18at 21:00; Start 05/12/18 at 21:00 Benztropine Mesylate (Cogentin) 1 mg BID PO Last administered on 05/15/18at 08:26; Start 05/13/18 at 09:00; Stop 05/15/18 at 14:22; Status DC Benztropine Mesylate (Cogentin) 1 mg TID PO Last administered on 06/10/18at 15:39; Start 05/15/18 at 16:00 Bupropion HCl (Wellbutrin) 50 mg DAILY PO Last administered on 06/06/18at 08:40; Start 06/02/18 at 09:00; Stop 06/06/18 at 16:52; Status DC Bupropion HCl (Wellbutrin) 100 mg DAILY PO Last administered on 06/07/18at 09:04; Start 06/07/18 at 09:00; Stop 06/07/18 at 17:54; Status DC Bupropion HCl (Wellbutrin) 150 mg DAILY PO Last administered on 06/10/18at 08:49; Start 06/08/18 at 09:00; Stop 06/10/18 at 11:46; Status DC Bupropion HCl (Zyban, Wellbutrin Sr) 150 mg BID PO ; Start 06/10/18 at 21:00 Dextrose (Dextrose 50%) 25 ml ASDIRECTED PRN IV SEE LABEL COMMENTS; Start 05/12/18 at 20:30 Doxepin HCl (SINEquan) 50 mg QHS PO Last administered on 05/14/18at 21:13; Start 05/12/18 at 21:00; Stop 05/15/18 at 14:11; Status DC Fluoxetine HCl (PROzac) 10 mg DAILY PO Last administered on 05/14/18at 08:09; Start 05/13/18 at 09:00; Stop 05/14/18 at 21:05; Status DC Fluoxetine HCl (PROzac) 20 mg DAILY PO Last administered on 05/15/18at 08:26; Start 05/15/18 at 09:00; Stop 05/15/18 at 14:08; Status DC Fluoxetine HCl (PROzac) 20 mg QAM PO Last administered on 06/01/18at 09:56; Start 06/01/18 at 09:00; Stop 06/01/18 at 15:35; Status DC Fluoxetine HCl (PROzac) 30 mg QAM PO Last administered on 05/31/18at 09:25; Start 05/30/18 at 09:00; Stop 05/31/18 at 13:00; Status DC Fluoxetine HCl (PROzac) 40 mg QAM PO Last administered on 06/10/18at 08:49; Start 06/02/18 at 09:00 Gabapentin (Neurontin) 600 mg BID PO Last administered on 06/10/18at 08:50; Start 05/12/18 at 21:00 Glucagon (Glucagon) 1 mg ASDIRECTED PRN SC SEE LABEL COMMENTS; Start 05/12/18 at 20:30 Glucose (Glucose) 16 GM ASDIRECTED PRN PO SEE LABEL COMMENTS; Start 05/12/18 at 20:30 Home Med (Med Rec Complete!) ASDIRECTED XX ; Start 05/12/18 at 17:45; Stop 05/12/18 at 17:47; Status DC Insulin Human Lispro (HumaLOG INSULIN) See Protocol Table AC SC Last ad ministered on 06/10/18at 17:07; Start 05/13/18 at 07:30 Insulin Human Lispro (HumaLOG INSULIN) See Protocol Table QHS SC ; Start 05/12/18 at 21:00 Levothyroxine Sodium (Synthroid) 100 mcg DAILY@0600 PO Last administered on 06/10/18at 06:27; Start 05/13/18 at 06:00 Lisinopril (Prinivil) 5 mg DAILY PO Last administered on 06/03/18at 09:11; Start 05/12/18 at 20:30; Stop 06/03/18 at 10:04; Status DC Lisinopril (Prinivil) 15 mg DAILY PO Last administered on 06/07/18at 06:49; Start 06/04/18 at 09:00; Stop 06/07/18 at 11:47; Status DC Lisinopril (Prinivil) 20 mg DAILY PO Last administered on 06/10/18at 08:50; Start 06/08/18 at 09:00 Lorazepam (Ativan) 0.5 mg STAT STAT PO Last administered on 05/31/18at 13:23; Start 05/31/18 at 13:12; Stop 05/31/18 at 13:13; Status DC Lorazepam (Ativan) 1 mg TID PO ; Start 06/01/18 at 16:00; Stop 06/01/18 at 16:00; Status DC Lorazepam (Ativan) 1 mg TID PO Last administered on 06/10/18at 15:39; Start 06/01/18 at 21:00 Magnesium Hydroxide (Milk Of Magnesia) 30 ml DAILYPRN PRN PO CONSTIPATION; Start 05/12/18 at 18:15 Metformin HCl (Glucophage) 1,000 mg BID@08,18 PO Last administered on 06/10/18at 17:07; Start 05/13/18 at 18:00 Mirtazapine (Remeron) 7.5 mg QHS PO Last administered on 05/14/18at 21:13; Start 05/12/18 at 21:00; Stop 05/15/18 at 14:11; Status DC Mirtazapine (Remeron) 7.5 mg QHS PO Last administered on 06/09/18at 21:00; Start 05/31/18 at 21:00 Mirtazapine (Remeron) 30 mg QHS PO Last administered on 05/30/18at 20:30; Start 05/15/18 at 21:00; Stop 05/31/18 at 13:05; Status DC Non-Formulary Medication ( See Comment Field Below ) SEE COMMENTS SECTION 1T@10 XX ; Start 05/25/18 at 10:00; Stop 05/25/18 at 10:00; Status DC Non-Formulary Medication ( See Comment Field Below ) SEE LABEL COMMENTS DAILY XX ; Start 05/23/18 at 09:00; Stop 05/23/18 at 12:56; Status DC Olanzapine (ZyPREXA) 10 mg BID PO Last administered on 05/15/18at 08:26; Start 05/15/18 at 09:00; Stop 05/15/18 at 14:31; Status DC Olanzapine (ZyPREXA) 10 mg QHS PO Last administered on 05/13/18at 20:33; Start 05/12/18 at 21:00; Stop 05/14/18 at 21:05; Status DC Oxcarbazepine (Trileptal) 600 mg QHS PO Last administered on 06/09/18at 21:00; Start 05/12/18 at 21:00 Quetiapine Fumarate (SEROquel) 50 mg BID PO Last administered on 2/22/19at 08:50; Start 05/31/18 at 21:00 Risperidone (RisperDAL) 1 mg BID PO ; Start 05/31/18 at 21:00; Status Cancel Risperidone (RisperDAL) 1 mg TID PO Last administered on 05/31/18at 09:25; Start 05/15/18 at 16:00; Stop 05/31/18 at 12:55; Status DC Sertraline HCl (Zoloft) 25 mg QAM PO Last administered on 05/18/18at 08:55; Start 05/16/18 at 09:00; Stop 05/18/18 at 14:28; Status DC Sertraline HCl (Zoloft) 50 mg QAM PO Last administered on 05/19/18at 08:58; Start 05/19/18 at 09:00; Stop 05/19/18 at 14:55; Status DC Sertraline HCl (Zoloft) 75 mg QAM PO Last administered on 05/20/18at 08:16; Start 05/20/18 at 09:00; Stop 05/20/18 at 15:46; Status DC Sertraline HCl (Zoloft) 100 mg QAM PO Last administered on 05/23/18at 08:46; Start 05/21/18 at 09:00; Stop 05/23/18 at 11:20; Status DC Sertraline HCl (Zoloft) 125 mg QAM PO Last administered on 05/30/18at 09:29; Start 05/24/18 at 09:00; Stop 05/30/18 at 09:50; Status DC Trazodone HCl (Desyrel) 50 mg QHSP PRN PO INSOMNIA Last administered on 05/16/18at 22:43; Start 05/12/18 at 18:15 Allergies Coded Allergies: Penicillins (Verified Allergy, Unknown, 07/19/12) Penicillins Cross Reactors (Verified Allergy, Unknown, 07/19/12) YAAKOV BAILEY MD Jun 10, 2018 21:04
[2018-06-11] MEDS: LEVOTHYROXINE 100MCG TABLET (0.1MG) PO SCH (06:02)
[2018-06-11] MEDS: HumaLOG INSULIN (NovoLOG) PER UNIT SC SCH ×4 (06:35→21:00)
[2018-06-11 06:41] VITALS: BP 124/75
[2018-06-11] MEDS: metFORMIN (GLUCOPHAGE) 1000 MG TABLET PO SCH ×2 (07:32→17:03)
[2018-06-11] MEDS: LORazepam 1 MG TAB PO SCH ×3 (08:59→21:20)
[2018-06-11] MEDS: LISINOPRIL 20 MG TAB PO SCH (08:59)
[2018-06-11] MEDS: FLUoxetine 20 MG CAP PO SCH (08:59)
[2018-06-11] MEDS: amLODIPine 10 MG TAB PO SCH (08:59)
[2018-06-11] MEDS: QUEtiapine FUMARATE 50 MG TAB PO SCH ×2 (09:00→21:20)
[2018-06-11] MEDS: BENZTROPINE 1 MG TAB PO SCH ×3 (09:00→21:20)
[2018-06-11] MEDS: GABAPENTIN 300 MG CAP PO SCH ×2 (09:00→21:20)
[2018-06-11] MEDS: buPROPion **SR TABLET** (ZYBAN) 150MG PO SCH ×2 (09:00→21:20)
[2018-06-11 18:39] VITALS: BP 104/62
[2018-06-11] MEDS: MIRTAZAPINE 7.5MG PER 1/2 TABLET PO SCH (21:20)
[2018-06-11] MEDS: ATORVASTATIN 20 MG TAB PO SCH (21:20)
[2018-06-11] MEDS: OXcarbazepine 300 MG TAB PO SCH (21:20)
[2018-06-12] MEDS: LEVOTHYROXINE 100MCG TABLET (0.1MG) PO SCH (06:01)
[2018-06-12] MEDS: HumaLOG INSULIN (NovoLOG) PER UNIT SC SCH ×4 (06:03→21:00)
[2018-06-12 06:11] VITALS: BP 141/90
[2018-06-12] MEDS: metFORMIN (GLUCOPHAGE) 1000 MG TABLET PO SCH ×2 (07:26→17:04)
[2018-06-12] MEDS: GABAPENTIN 300 MG CAP PO SCH ×2 (09:08→20:39)
[2018-06-12] MEDS: BENZTROPINE 1 MG TAB PO SCH ×3 (09:08→20:39)
[2018-06-12] MEDS: LISINOPRIL 20 MG TAB PO SCH (09:08)
[2018-06-12] MEDS: amLODIPine 10 MG TAB PO SCH (09:08)
[2018-06-12] MEDS: LORazepam 1 MG TAB PO SCH ×3 (09:08→20:39)
[2018-06-12] MEDS: FLUoxetine 20 MG CAP PO SCH (09:08)
[2018-06-12] MEDS: buPROPion **SR TABLET** (ZYBAN) 150MG PO SCH ×2 (09:08→20:39)
[2018-06-12] MEDS: QUEtiapine FUMARATE 50 MG TAB PO SCH ×2 (09:09→21:18)
[2018-06-12 18:00] VITALS: BP 106/58
[2018-06-12] MEDS: MIRTAZAPINE 7.5MG PER 1/2 TABLET PO SCH (20:39)
[2018-06-12] MEDS: ATORVASTATIN 20 MG TAB PO SCH (20:39)
[2018-06-12] MEDS: OXcarbazepine 300 MG TAB PO SCH (21:18)
[2018-06-13] MEDS: LEVOTHYROXINE 100MCG TABLET (0.1MG) PO SCH (06:07)
[2018-06-13 06:51] VITALS: BP 124/85
[2018-06-13] MEDS: HumaLOG INSULIN (NovoLOG) PER UNIT SC SCH ×4 (07:01→21:00)
[2018-06-13] MEDS: metFORMIN (GLUCOPHAGE) 1000 MG TABLET PO SCH ×2 (08:50→17:22)
[2018-06-13] MEDS: LISINOPRIL 20 MG TAB PO SCH (08:53)
[2018-06-13] MEDS: amLODIPine 10 MG TAB PO SCH (08:53)
[2018-06-13] MEDS: QUEtiapine FUMARATE 50 MG TAB PO SCH ×2 (08:54→20:29)
[2018-06-13] MEDS: buPROPion **SR TABLET** (ZYBAN) 150MG PO SCH ×2 (08:54→20:29)
[2018-06-13] MEDS: GABAPENTIN 300 MG CAP PO SCH ×2 (08:54→20:30)
[2018-06-13] MEDS: BENZTROPINE 1 MG TAB PO SCH ×3 (08:54→20:29)
[2018-06-13] MEDS: LORazepam 1 MG TAB PO SCH ×3 (08:54→20:29)
[2018-06-13] MEDS: FLUoxetine 20 MG CAP PO SCH (08:54)
--- NOTE | 2018-06-13 12:26 | MHIPNPDOC ---
[facility] Progress Note Progress Note DATE OF SERVICE: 06/13/18 HISTORY OF THE PRESENT ILLNESS: as per ED report: "Pt states he had a friend drive him to the ED due to increased depression & SI with a plan to OD. Pt states that last night he had SI with a plan to OD. He reports increasing depression over the past few days. He stopped taking his meds because he was having side effects. Pt's main stressor is his living situation. He lives with his boss & does not think it is a good living environment for him. Pt reports poor sleep, poor appetite, poor motivation. VITAL SIGNS: See below. NEW TEST RESULTS: See below CURRENT MEDICATIONS: See below. MENTAL STATUS EXAMINATION: Patient is a 47-year old male, who is alert, disheveled, unkempt, dressed in his personal clothes, without lip smacking. In bed with poor eye contact. Excessive blinking is present. Speech: a little fluent, some spontaneity observed. Tone, rate and volume are normal Thought processes including: more organized Thought content: Focused on getting better, denies SI/HI, denies thought delusions, denies AV hallucinations Description of associations: Intact Description of abnormal or psychotic thoughts: denies auditory and visual hallucinations, denies paranoid delusions, denies suicidal thoughts Judgment: poor Insight: improving Orientation: Poor. Recent and remote memory: Impaired, more so, the short term memory Attention span and concentration: Fair. Fund of knowledge: Average. Mood: Less depressed Affect: More reactive, appropriate, congruent with mood DIAGNOSES: 1. Bipolar disorder, mixed 2. Generalized anxiety disorder. ASSESSMENT: Patient had a conversation with me today and he was seen smiling two or three times. Received encouragement for shaving, for having a shower, for attending groups. Patient is still depressed but he has improved on Wellbutrin, he is on 300 mgs po daily. Patient is at risk of developing winsome but until now, he is still presenting with signs of depression. Will continue to encourage him to attend groups, comply with his treatment. MANAGEMENT: Increase wellbutrin 300 mg PO daily (150 mgs PO BID) fluoxetine increased to 40 mg PO QAM mirtazapine to 7.5 mg PO QHS seroquel 50 mg PO BID cogentin 1 mg PO TID gabapentin 600 mg PO BID Trileptal 600 mg PO QHS TIME SPENT: 20 minutes Vital Signs Vital Signs Date Time Temp Pulse Resp B/P (MAP) Pulse Ox O2 Delivery O2 Flow Rate FiO2 06/13/18 08:53 124/85 06/13/18 08:53 76 06/13/18 06:51 98.5 18 Laboratory Data 24H Labs Laboratory Tests 2 06/12/18 16:35: Bedside Glucose (Misc Panel) 107H 06/12/18 20:55: Bedside Glucose (Misc Panel) 119H 06/13/18 06:16: Bedside Glucose (Misc Panel) 92 Current Medications Current Medications Acetaminophen (Tylenol Tab) 650 mg Q6HP PRN PO HEADACHE or DISCOMFORT; Start 05/12/18 at 18:15 Al Hydrox/Mg Hydrox/Simethicone (Mylanta) 30 ml Q4HP PRN PO HEARTBURN/INDIGESTION; Start 05/12/18 at 18:15 Amlodipine Besylate (Norvasc) 10 mg DAILY PO Last administered on 06/13/18at 08:53; Start 06/07/18 at 09:00 Aripiprazole (AbiLIFY) 2 mg QAM PO Last administered on 05/23/18at 08:46; Start 05/21/18 at 09:00; Stop 05/23/18 at 11:20; Status DC Aripiprazole (AbiLIFY) 2.5 mg BID PO Last administered on 05/30/18at 09:30; Start 05/23/18 at 21:00; Stop 05/30/18 at 10:57; Status DC Aripiprazole (AbiLIFY) 5 mg BID PO ; Start 05/31/18 at 21:00; Status Cancel Aripiprazole (AbiLIFY) 7.5 mg BID PO Last administered on 05/31/18at 09:25; Start 05/30/18 at 21:00; Stop 05/31/18 at 12:58; Status DC Atorvastatin Calcium (Lipitor) 20 mg QHS PO Last administered on 06/12/18at 20:39; Start 05/12/18 at 21:00 Benztropine Mesylate (Cogentin) 1 mg BID PO Last administered on 05/15/18at 08:26; Start 05/13/18 at 09:00; Stop 05/15/18 at 14:22; Status DC Benztropine Mesylate (Cogentin) 1 mg TID PO Last administered on 06/13/18 08:54; Start 05/15/18 at 16:00 Bupropion HCl (Wellbutrin) 50 mg DAILY PO Last administered on 06/06/18at 08:40; Start 06/02/18 at 09:00; Stop 06/06/18 at 16:52; Status DC Bupropion HCl (Wellbutrin) 100 mg DAILY PO Last administered on 06/07/18at 09:04; Start 06/07/18 at 09:00; Stop 06/07/18 at 17:54; Status DC Bupropion HCl (Wellbutrin) 150 mg DAILY PO Last administered on 06/10/18at 08:49; Start 06/08/18 at 09:00; Stop 06/10/18 at 11:46; Status DC Bupropion HCl (Zyban, Wellbutrin Sr) 150 mg BID PO Last administered on 06/13/18at 08:54; Start 06/10/18 at 21:00 Dextrose (Dextrose 50%) 25 ml ASDIRECTED PRN IV SEE LABEL COMMENTS; Start 05/12/18 at 20:30 Doxepin HCl (SINEquan) 50 mg QHS PO Last administered on 05/14/18at 21:13; Start 05/12/18 at 21:00; Stop 05/15/18 at 14:11; Status DC Fluoxetine HCl (PROzac) 10 mg DAILY PO Last administered on 05/14/18at 08:09; S tart 05/13/18 at 09:00; Stop 05/14/18 at 21:05; Status DC Fluoxetine HCl (PROzac) 20 mg DAILY PO Last administered on 05/15/18at 08:26; Start 05/15/18 at 09:00; Stop 05/15/18 at 14:08; Status DC Fluoxetine HCl (PROzac) 20 mg QAM PO Last administered on 06/01/18at 09:56; Start 06/01/18 at 09:00; Stop 06/01/18 at 15:35; Status DC Fluoxetine HCl (PROzac) 30 mg QAM PO Last administered on 05/31/18at 09:25; Start 05/30/18 at 09:00; Stop 05/31/18 at 13:00; Status DC Fluoxetine HCl (PROzac) 40 mg QAM PO Last administered on 06/13/18 08:54; Start 06/02/18 at 09:00 Gabapentin (Neurontin) 600 mg BID PO Last administered on 06/13/18 08:54; Start 05/12/18 at 21:00 Glucagon (Glucagon) 1 mg ASDIRECTED PRN SC SEE LABEL COMMENTS; Start 05/12/18 at 20:30 Glucose (Glucose) 16 GM ASDIRECTED PRN PO SEE LABEL COMMENTS; Start 05/12/18 at 20:30 Home Med (Med Rec Complete!) ASDIRECTED XX ; Start 05/12/18 at 17:45; Stop 05/12/18 at 17:47; Status DC Insulin Human Lispro (HumaLOG INSULIN) See Protocol Table AC SC Last admin istered on 06/12/18at 17:03; Start 05/13/18 at 07:30 Insulin Human Lispro (HumaLOG INSULIN) See Protocol Table QHS SC ; Start at 21:00 Levothyroxine Sodium (Synthroid) 100 mcg DAILY@0600 PO Last administered on 06/13/18at 06:07; Start 05/13/18 at 06:00 Lisinopril (Prinivil) 5 mg DAILY PO Last administered on 06/03/18at 09:11; Start 05/12/18 at 20:30; Stop 06/03/18 at 10:04; Status DC Lisinopril (Prinivil) 15 mg DAILY PO Last administered on 06/07/18at 06:49; Start 06/04/18 at 09:00; Stop 06/07/18 at 11:47; Status DC Lisinopril (Prinivil) 20 mg DAILY PO Last administered on 06/13/18at 08:53; Start 06/08/18 at 09:00 Lorazepam (Ativan) 0.5 mg STAT STAT PO Last administered on 05/31/18at 13:23; Start 05/31/18 at 13:12; Stop 05/31/18 at 13:13; Status DC Lorazepam (Ativan) 1 mg TID PO ; Start 06/01/18 at 16:00; Stop 06/01/18 at 16:00; Status DC Lorazepam (Ativan) 1 mg TID PO Last administered on 2/25/19at 08:54; Start 06/01/18 at 21:00 Magnesium Hydroxide (Milk Of Magnesia) 30 ml DAILYPRN PRN PO CONSTIPATION; Start 05/12/18 at 18:15 Metformin HCl (Glucophage) 1,000 mg BID@08,18 PO Last administered on 06/13/18at 08:50; Start 05/13/18 at 18:00 Mirtazapine (Remeron) 7.5 mg QHS PO Last administered on 05/14/18at 21:13; Start 05/12/18 at 21:00; Stop 05/15/18 at 14:11; Status DC Mirtazapine (Remeron) 7.5 mg QHS PO Last administered on 06/12/18at 20:39; Start 05/31/18 at 21:00 Mirtazapine (Remeron) 30 mg QHS PO Last administered on 05/30/18at 20:30; Start 05/15/18 at 21:00; Stop 05/31/18 at 13:05; Status DC Miscellaneous (Unresolved Clarification Entry) SEE LABEL COMMENTS DAILY XX ; Start 06/11/18 at 09:00; Stop 06/12/18 at 10:17; Status DC Non-Formulary Medication ( See Comment Field Below ) SEE COMMENTS SECTION 1T@10 XX ; Start 05/25/18 at 10:00; Stop 05/25/18 at 10:00; Status DC Non-Formulary Medication ( See Comment Field Below ) SEE LABEL COMMENTS DAILY XX ; Start 05/23/18 at 09:00; Stop 05/23/18 at 12:56; Status DC Olanzapine (ZyPREXA) 10 mg BID PO Last administered on 05/15/18at 08:26; Start 05/15/18 at 09:00; Stop 05/15/18 at 14:31; Status DC Olanzapine (ZyPREXA) 10 mg QHS PO Last administered on 05/13/18at 20:33; Start 05/12/18 at 21:00; Stop 05/14/18 at 21:05; Status DC Oxcarbazepine (Trileptal) 600 mg QHS PO Last administered on 06/12/18at 21:18; Start 05/12/18 at 21:00 Quetiapine Fumarate (SEROquel) 50 mg BID PO Last administered on 06/13/18at 08:54; Start 05/31/18 at 21:00 Risperidone (RisperDAL) 1 mg BID PO ; Start 05/31/18 at 21:00; Status Cancel Risperidone (RisperDAL) 1 mg TID PO Last administered on 05/31/18at 09:25; Start 05/15/18 at 16:00; Stop 05/31/18 at 12:55; Status DC Sertraline HCl (Zoloft) 25 mg QAM PO Last administered on 05/18/18at 08:55; Start 05/16/18 at 09:00; Stop 05/18/18 at 14:28; Status DC Sertraline HCl (Zoloft) 50 mg QAM PO Last administered on 05/19/18at 08:58; Start 05/19/18 at 09:00; Stop 05/19/18 at 14:55; Status DC Sertraline HCl (Zoloft) 75 mg QAM PO Last administered on 05/20/18at 08:16; Start 05/20/18 at 09:00; Stop 05/20/18 at 15:46; Status DC Sertraline HCl (Zoloft) 100 mg QAM PO Last administered on 05/23/18at 08:46; Start 05/21/18 at 09:00; Stop 05/23/18 at 11:20; Status DC Sertraline HCl (Zoloft) 125 mg QAM PO Last administered on 05/30/18at 09:29; Start 05/24/18 at 09:00; Stop 05/30/18 at 09:50; Status DC Trazodone HCl (Desyrel) 50 mg QHSP PRN PO INSOMNIA Last administered on 05/16/18at 22:43; Start 05/12/18 at 18:15 Allergies Coded Allergies: Penicillins (Verified Allergy, Unknown, 07/19/12) Penicillins Cross Reactors (Verified Allergy, Unknown, 07/19/12) YAAKOV BAILEY MD Jun 13, 2018 12:25
[2018-06-13 18:06] VITALS: BP 132/74
[2018-06-13] MEDS: OXcarbazepine 300 MG TAB PO SCH (20:29)
[2018-06-13] MEDS: MIRTAZAPINE 7.5MG PER 1/2 TABLET PO SCH (20:29)
[2018-06-13] MEDS: ATORVASTATIN 20 MG TAB PO SCH (20:29)
[2018-06-14] MEDS: LEVOTHYROXINE 100MCG TABLET (0.1MG) PO SCH (06:09)
[2018-06-14] MEDS: HumaLOG INSULIN (NovoLOG) PER UNIT SC SCH ×4 (06:58→21:00)
[2018-06-14] MEDS: metFORMIN (GLUCOPHAGE) 1000 MG TABLET PO SCH ×2 (08:31→17:11)
[2018-06-14] MEDS: LISINOPRIL 20 MG TAB PO SCH (08:31)
[2018-06-14] MEDS: buPROPion **SR TABLET** (ZYBAN) 150MG PO SCH ×2 (08:31→21:18)
[2018-06-14] MEDS: amLODIPine 10 MG TAB PO SCH (08:31)
[2018-06-14] MEDS: BENZTROPINE 1 MG TAB PO SCH ×3 (08:32→21:18)
[2018-06-14] MEDS: FLUoxetine 20 MG CAP PO SCH (08:32)
[2018-06-14] MEDS: QUEtiapine FUMARATE 50 MG TAB PO SCH ×2 (08:32→21:18)
[2018-06-14] MEDS: GABAPENTIN 300 MG CAP PO SCH ×2 (08:32→21:18)
[2018-06-14] MEDS: LORazepam 1 MG TAB PO SCH ×3 (08:33→21:18)
[2018-06-14 18:08] VITALS: BP 123/76
--- NOTE | 2018-06-14 20:38 | MHDSPDOC ---
[facility] Discharge Summary Discharge Summary DATE OF ADMISSION: May 12, 2018 at 18:01 DATE OF DISCHARGE: 06/15/18 DISCHARGE DIAGNOSES: 1. Bipolar disorder, depressed w/o psychosis REASON FOR ADMISSION: Chief Complaint "I was really anxious, I had not been taking my meds. right" History of Present Illness HISTORY OF THE PRESENT ILLNESS: as per ED report: "Pt states he had a friend drive him to the ED due to increased depression & SI with a plan to OD. Pt states that last night he had SI with a plan to OD. He reports increasing depression over the past few days. He stopped taking his meds because he was having side effects. Pt's main stressor is his living situation. He lives with his boss & does not think it is a good living environment for him. Pt reports poor sleep, poor appetite, poor motivation." CONSULTANTS INVOLVED: None TREATMENT AND PROGRESS ON THE UNIT : Upon initial evaluation, he exhibited disorganized thoughts, he was circumstantial and tangential, his speech was rapid and pressured, he was very hyper verbal. He was restless, couldn't stop scratching his right leg, moving in his seat and he exhibited lip smacking, very frequently. The patient had been hospitalized at the [facility] during the months of December, January and February. In March, he was hospitalized at [facility] and he received during that hospitalization a dosis of Abilify Mantenna 400 mgs IM, whereas at [facility] [place] had received treatment with Invega Sustenna. He said he was discharged from [facility] and he had failed to comply with his medications. He tried to explain why he stopped taking his medications and he said that he was living with his boss, who had tried to help him with a place to stay but the patient soon realized that this situation was not the best for him. In a confusing narrative, he said that a friend had given him a ride to the ED but days later he told me that he had left his boss house and he found himself without his medications, he said he left 3 different medications there, he called the Police and the Police and the Police brought him to the ED because they thought he needed to be at the hospital. This is not what happened, according to the Emergency Report, he said he ws dropped off by a friend at the ED, who gave him a ride and he came to the ED because he had suicidal ideation and was planning to overdose on his medications. He described increasing depression. During the initial evaluation, he had signs of being extremely anxious. This poem writer started treating him with Zoloft without positive results. The dose was increased to 125 mgs and he continued to exhibit signs of a severe depression. he received Zyprexa 10 mgs PO BID, but his thoughts were still disorganized and sometimes he seemed to be responding to internal stimuli. Later on, these medications were discontinued and he was started on Wellbutrin and Prozac. He has received Seroquel 50 mgs PO BID and mirtazapine 7.5 mgs PO QHS. The patient has exhibited very little response to all these medications and at this time, he is receiving 150 mgs PO BID of Wellbutrin plus 40 mgs of Prozac for depression. the patient presented with severe psychomotor retardation shortly after being admitted. He doesn't present with lip smacking anymore, he had a good response to Cogentin, because this poem writer thought this could be akathisia. The patient exhibited thought blocking. He would almost invariably answer with an "I don't know", when we tried to engage him in a conversation, as we asked him how was his mood, if he had experienced any type of hallucinations. He spent days in bed, wrapped in his blankets, with very flat affect, very poor appetite. His appetite was erra tic and when he ate, he ate very little. His thought process was still disorganized and at times it seemed that he was responding to internal stimuli. When he was able to talk, he said that he still felt very depressed and he still had SI, although he was never able to explain if he had a plan or not. HOSPITAL COURSE: As above DISCHARGE ASSESSMENT: patient is still depressed, he still has psychomotor retardation, low energy levels, he is apathetic, his appetite is still erratic but his sleep is improving. He is beginning to talk, but very little and his speech is impoverished, is still not fluent, he still has thought blocking. He has smiled twice since last Wednesday, when after a lot of encouragement from the Nursing staff, he got up and later during the day, he was able to shave. He denies having auditory or visual hallucinations but he seems to be distraught. sometimes he says he is suicidal and sometimes he denies it. He is at a very high risk for suicide. He has never voiced homicidal ideation and has never exhibited violent, aggressive behavior against staff or patients. MENTAL STATUS EXAMINATION ON DISCHARGE: Patient is a 47-year old male, who is alert, cooperative, dressed in hospital clothes, with poor eye contact, overweight. Speech is impoverished, not spontaneous, not fluent. Normal volume, normal rate and normal tone. Language skills are limited at this time, he still exhibits some thought blocking and he gives short responses. Thought processes including: still disorganized, he presents thought blocking. Thought content: he denies thought delusions, denies HI and says that sometimes he has SI without a plan. Abstract reasoning, and computation: Impaired. Description of associations: Not associative, patient has thought blocking. At times he is able to speak a little bit more but then, he sinks into mutism once again Description of abnormal or psychotic thoughts: Denies AV hallucinations although at times he seems to be responding to internal stimuli Judgment: poor Insight: poor. Orientation to place, persona and situation; not to date and time. Recent and remote memory: short term memory is a little limited Attention span and concentration: easily distracted. Language: poverty of language Mood: depressed Affect: flat, depressed MEDICATIONS ON DISCHARGE: Scheduled (Trulicity) 0.75 Mg/0.5 Ml Inj, 0.75 MG SC QWEEK, (Reported) WEDNESDAYS (Vraylar) 3 Mg Cap, 3 MG PO DAILY, (Reported) Amlodipine Besylate (Amlodipine Besylate) 10 Mg Tab, 10 MG PO DAILY for hypertension, #7 Atorvastatin Calcium (Atorvastatin Calcium) 20 Mg Tab, 20 MG PO QHS, (Reported) Benztropine Mesylate (Benztropine Mesylate) 1 Mg Tab, 1 MG PO TID for EPS, #21 Bupropion HCl (Bupropion HCl Sr) 150 Mg Tab, 150 MG PO BID for depression, #14 Canagliflozin (Invokana) 300 Mg Tab, 300 MG PO DAILY, (Reported) Fluoxetine Hcl (Fluoxetine HCl) 20 Mg Cap, 40 MG PO QAM for depression, #14 Gabapentin (Gabapentin) 600 Mg Tab, 600 MG PO BID, (Reported) Levothyroxine Sodium (Synthroid) 100 Mcg Tab, 100 MCG PO DAILY, (Reported) Lisinopril (Lisinopril) 20 Mg Tab, 20 MG PO DAILY for hypertension, #7 Lorazepam (Lorazepam) 1 Mg Tab, 1 MG PO TID for anxiety, #21 Mirtazapine (Mirtazapine) 7.5 Mg Tab, 7.5 MG PO QHS, (Reported) Mirtazapine (Mirtazapine) 15 Mg Tab, 7.5 MG PO QHS for insomnia, #4 Quetiapine Fumerate (Quetiapine Fumarate) 50 Mg Tab, 50 MG PO BID for antipsychotic/mood stabilizer, #14 Trileptal 600 mgs PO BID Klonopin 1 mg PO TID Metformin 1,000 mgs PO BID Scheduled PRN Trazodone HCl (Trazodone HCl) 50 Mg Tab, 50 MG PO QHSP PRN for INSOMNIA, #7 PLAN/FOLLOWUP ARRANGEMENTS: Transfer to [facility] for continuation of care and stabilization The amount of time spent in the coordination of care for this patient was approximately 30 minutes. Vital Signs/I&Os Vital Signs Date Time Temp Pulse Resp B/P (MAP) Pulse Ox O2 Delivery O2 Flow Rate FiO2 06/14/18 18:08 97.6 90 18 123/76 (92) Laboratory Data Labs 24H Laboratory Tests 2 06/13/18 20:28: Bedside Glucose (Misc Panel) 100 06/14/18 06:13: Bedside Glucose (Misc Panel) 97 06/14/18 12:28: Bedside Glucose (Misc Panel) 80 06/14/18 16:48: Bedside Glucose (Misc Panel) 124H Medications Scheduled (Trulicity) 0.75 Mg/0.5 Ml Inj, 0.75 MG SC QWEEK, (Reported) WEDNESDAYS (Vraylar) 3 Mg Cap, 3 MG PO DAILY, (Reported) Amlodipine Besylate (Amlodipine Besylate) 10 Mg Tab, 10 MG PO DAILY for hypertension, #7 Atorvastatin Calcium (Atorvastatin Calcium) 20 Mg Tab, 20 MG PO QHS, (Reported) Benztropine Mesylate (Benztropine Mesylate) 1 Mg Tab, 1 MG PO TID for EPS, #21 Bupropion HCl (Bupropion HCl Sr) 150 Mg Tab, 150 MG PO BID for depression, #14 Canagliflozin (Invokana) 300 Mg Tab, 300 MG PO DAILY, (Reported) Fluoxetine Hcl (Fluoxetine HCl) 20 Mg Cap, 40 MG PO QAM for depression, #14 Gabapentin (Gabapentin) 600 Mg Tab, 600 MG PO BID, (Reported) Levothyroxine Sodium (Synthroid) 100 Mcg Tab, 100 MCG PO DAILY, (Reported) Lisinopril (Lisinopril) 20 Mg Tab, 20 MG PO DAILY for hypertension, #7 Lorazepam (Lorazepam) 1 Mg Tab, 1 MG PO TID for anxiety, #21 Metformin Hydrochloride (Glucophage) 1,000 Mg Tab, 1,000 MG PO BID@,18 for diabetes, #28 Mirtazapine (Mirtazapine) 7.5 Mg Tab, 7.5 MG PO QHS, (Reported) Mirtazapine (Mirtazapine) 15 Mg Tab, 7.5 MG PO QHS for insomnia, #4 Quetiapine Fumerate (Quetiapine Fumarate) 50 Mg Tab, 50 MG PO BID for antipsychotic/mood stabilizer, #14 Scheduled PRN Trazodone HCl (Trazodone HCl) 50 Mg Tab, 50 MG PO QHSP PRN for INSOMNIA, #7 Allergies Coded Allergies: Penicillins (Verified Allergy, Unknown, 07/19/12) Penicillins Cross Reactors (Verified Allergy, Unknown, 07/19/12) YAAKOV BAILEY MD Jun 14, 2018 20:30
[2018-06-14] MEDS: MIRTAZAPINE 7.5MG PER 1/2 TABLET PO SCH (21:17)
[2018-06-14] MEDS: ATORVASTATIN 20 MG TAB PO SCH (21:18)
[2018-06-14] MEDS: OXcarbazepine 300 MG TAB PO SCH (21:18)
[2018-06-14] MEDS ORDERED: BENZ-52 PO (21:35)
[2018-06-14] MEDS ORDERED: AMLO10TA5 PO (21:35)
[2018-06-14] MEDS ORDERED: MIRT15TA3 PO (21:35)
[2018-06-14] MEDS ORDERED: LORA1TAB12 PO (21:35)
[2018-06-14] MEDS ORDERED: FLUO20CA19 PO (21:35)
[2018-06-14] MEDS ORDERED: QUET5TAB PO (21:35)
[2018-06-14] MEDS ORDERED: LISI-538 PO (21:35)
[2018-06-14] MEDS ORDERED: BUPR15TASR PO (21:35)
[2018-06-14] MEDS ORDERED: TRAZO50TA PO (21:35)
[2018-06-14] MEDS ORDERED: GLUC1000 PO (21:44)
--- NOTE | 2018-06-14 21:54 | MHIPNPDOC ---
[facility] Progress Note Progress Note DATE OF SERVICE: 06/14/18 HISTORY OF THE PRESENT ILLNESS: as per ED report: "Pt states he had a friend drive him to the ED due to increased depression & SI with a plan to OD. Pt states that last night he had SI with a plan to OD. He reports increasing depression over the past few days. He stopped taking his meds because he was having side effects. Pt's main stressor is his living situation. He lives with his boss & does not think it is a good living environment for him. Pt reports poor sleep, poor appetite, poor motivation. VITAL SIGNS: See below. NEW TEST RESULTS: See below CURRENT MEDICATIONS: See below. MENTAL STATUS EXAMINATION: Patient is a 47-year old male, who is alert, cooperative, dressed in hospital clothes, with poor eye contact, overweight. Speech is impoverished, not spontaneous, not fluent. Normal volume, normal rate and normal tone. Language skills are limited at this time, he still exhibits some thought blocking and he gives short responses. Thought processes including: still disorganized, he presents thought blocking. Thought content: he denies thought delusions, denies HI and says that sometimes he has SI without a plan. Abstract reasoning, and computation: Impaired. Description of associations: Not associative, patient has thought blocking. At times he is able to speak a little bit more but then, he sinks into mutism once again Description of abnormal or psychotic thoughts: Denies AV hallucinations although at times he seems to be responding to internal stimuli Judgment: poor Insight: poor. Orientation to place, persona and situation; not to date and time. Recent and remote memory: short term memory is a little limited Attention span and concentration: easily distracted. Language: poverty of language Mood: depressed Affect: flat, depressed DIAGNOSES: 1. Bipolar disorder, depressed without psychosis ASSESSMENT: Patient is still depressed, he still exhibits thought blocking although at times his mood seems to improve, he falls back into depression. He still needs to go to [facility] MANAGEMENT PLAN: Transfer to [facility] (tomorrow) TIME SPENT: 20 minutes. Vital Signs Vital Signs Date Time Temp Pulse Resp B/P (MAP) Pulse Ox O2 Delivery O2 Flow Rate FiO2 06/14/18 18:08 97.6 90 18 123/76 (92) Laboratory Data 24H Labs Laboratory Tests 2 06/14/18 06:13: Bedside Glucose (Misc Panel) 97 06/14/18 12:28: Bedside Glucose (Misc Panel) 80 06/14/18 16:48: Bedside Glucose (Misc Panel) 124H 06/14/18 21:15: Bedside Glucose (Misc Panel) 77 Current Medications Current Medications Acetaminophen (Tylenol Tab) 650 mg Q6HP PRN PO HEADACHE or DISCOMFORT; Start 05/12/18 at 18:15 Al Hydrox/Mg Hydrox/Simethicone (Mylanta) 30 ml Q4HP PRN PO HEARTBURN/INDIGESTION; Start 05/12/18 at 18:15 Amlodipine Besylate (Norvasc) 10 mg DAILY PO Last administered on 06/14/18at 08:31; Start 06/07/18 at 09:00 Aripiprazole (AbiLIFY) 2 mg QAM PO Last administered on 05/23/18at 08:46; Start 05/21/18 at 09:00; Stop 05/23/18 at 11:20; Status DC Aripiprazole (AbiLIFY) 2.5 mg BID PO Last administered on 05/30/18at 09:30; Start 05/23/18 at 21:00; Stop 05/30/18 at 10:57; Status DC Aripiprazole (AbiLIFY) 5 mg BID PO ; Start 05/31/18 at 21:00; Status Cancel Aripiprazole (AbiLIFY) 7.5 mg BID PO Last administered on 05/31/18at 09:25; Start 05/30/18 at 21:00; Stop 05/31/18 at 12:58; Status DC Atorvastatin Calcium (Lipitor) 20 mg QHS PO Last administered on 06/14/18at 21:18; Start 05/12/18 at 21:00 Benztropine Mesylate (Cogentin) 1 mg BID PO Last administered on 05/15/18at 08:26; Start 05/13/18 at 09:00; Stop 05/15/18 at 14:22; Status DC Benztropine Mesylate (Cogentin) 1 mg TID PO Last administered on 06/14/18at 21:18; Start 05/15/18 at 16:00 Bupropion HCl (Wellbutrin) 50 mg DAILY PO Last administered on 06/06/18at 08:40; Start 06/02/18 at 09:00; Stop 06/06/18 at 16:52; Status DC Bupropion HCl (Wellbutrin) 100 mg DAILY PO Last administered on 06/07/18at 09:04; Start 06/07/18 at 09:00; Stop 06/07/18 at 17:54; Status DC Bupropion HCl (Wellbutrin) 150 mg DAILY PO Last administered on 06/10/18at 08:49; Start 06/08/18 at 09:00; Stop 06/10/18 at 11:46; Status DC Bupropion HCl (Zyban, Wellbutrin Sr) 150 mg BID PO Last administered on 06/14/18 at 21:18; Start 06/10/18 at 21:00 Dextrose (Dextrose 50%) 25 ml ASDIRECTED PRN IV SEE LABEL COMMENTS; Start 05/12/18 at 20:30 Doxepin HCl (SINEquan) 50 mg QHS PO Last administered on 05/14/18at 21:13; Start 05/12/18 at 21:00; Stop 05/15/18 at 14:11; Status DC Fluoxetine HCl (PROzac) 10 mg DAILY PO Last administered on 05/14/18at 08:09; Start 05/13/18 at 09:00; Stop 05/14/18 at 21:05; Status DC Fluoxetine HCl (PROzac) 20 mg DAILY PO Last administered on 05/15/18at 08:26; Start 05/15/18 at 09:00; Stop 05/15/18 at 14:08; Status DC Fluoxetine HCl (PROzac) 20 mg QAM PO Last administered on 06/01/18at 09:56; Start 06/01/18 at 09:00; Stop 06/01/18 at 15:35; Status DC Fluoxetine HCl (PROzac) 30 mg QAM PO Last administered on 05/31/18at 09:25; Start 05/30/18 at 09:00; Stop 05/31/18 at 13:00; Status DC Fluoxetine HCl (PROzac) 40 mg QAM PO Last administered on 06/14/18at 08:32; Start 06/02/18 at 09:00 Gabapentin (Neurontin) 600 mg BID PO Last administered on 06/14/18at 21:18; Start 05/12/18 at 21:00 Glucagon (Glucagon) 1 mg ASDIRECTED PRN SC SEE LABEL COMMENTS; Start 05/12/18 at 20:30 Glucose (Glucose) 16 GM ASDIRECTED PRN PO SEE LABEL COMMENTS; Start 05/12/18 at 20:30 Home Med (Med Rec Complete!) ASDIRECTED XX ; Start 05/12/18 at 17:45; Stop 05/12/18 at 17:47; Status DC Insulin Human Lispro (HumaLOG INSULIN) See Protocol Table AC SC Last administered on 06/12/18at 17:03; Start 05/13/18 at 07:30 Insulin Human Lispro (HumaLOG INSULIN) See Protocol Table QHS SC ; Start 05/12/18 at 21:00 Levothyroxine Sodium (Synthroid) 100 mcg DAILY@0600 PO Last administered on 06/14/18at 06:09; Start 05/13/18 at 06:00 Lisinopril (Prinivil) 5 mg DAILY PO Last administered on 06/03/18at 09:11; Start 05/12/18 at 20:30; Stop 06/03/18 at 10:04; Status DC Lisinopril (Prinivil) 15 mg DAILY PO Last administered on 06/07/18at 06:49; Start 06/04/18 at 09:00; Stop 06/07/18 at 11:47; Status DC Lisinopril (Prinivil) 20 mg DAILY PO Last administered on 06/14/18at 08:31; Start 06/08/18 at 09:00 Lorazepam (Ativan) 0.5 mg STAT STAT PO Last administered on 05/31/18at 13:23; Start 05/31/18 at 13:12; Stop 05/31/18 at 13:13; Status DC Lorazepam (Ativan) 1 mg TID PO ; Start 06/01/18 at 16:00; Stop 06/01/18 at 16:00; Status DC Lorazepam (Ativan) 1 mg TID PO Last administered on 06/14/18at 21:18; Start 06/01/18 at 21:00 Magnesium Hydroxide (Milk Of Magnesia) 30 ml DAILYPRN PRN PO CONSTIPATION; Start 05/12/18 at 18:15 Metformin HCl (Glucophage) 1,000 mg BID@08,18 PO Last administered on 06/14/18at 17:11; Start 05/13/18 at 18:00 Mirtazapine (Remeron) 7.5 mg QHS PO Last administered on 05/14/18at 21:13; Start 05/12/18 at 21:00; Stop 05/15/18 at 14:11; Status DC Mirtazapine (Remeron) 7.5 mg QHS PO Last administered on 06/14/18at 21:17; Start 05/31/18 at 21:00 Mirtazapine (Remeron) 30 mg QHS PO Last administered on 05/30/18at 20:30; Start 05/15/18 at 21:00; Stop 05/31/18 at 13:05; Status DC Miscellaneous (Unresolved Clarification Entry) SEE LABEL COMMENTS DAILY XX ; Start 06/11/18 at 09:00; Stop 06/12/18 at 10:17; Status DC Non-Formulary Medication ( See Comment Field Below ) SEE COMMENTS SECTION 1T@10 XX ; Start 05/25/18 at 10:00; Stop 05/25/18 at 10:00; Status DC Non-Formulary Medication ( See Comment Field Below ) SEE LABEL COMMENTS DAILY XX ; Start 05/23/18 at 09:00; Stop 05/23/18 at 12:56; Status DC Olanzapine (ZyPREXA) 10 mg BID PO Last administered on 05/15/18at 08:26; Start 05/15/18 at 09:00; Stop 05/15/18 at 14:31; Status DC Olanzapine (ZyPREXA) 10 mg QHS PO Last administered on 05/13/18at 20:33; Start 05/12/18 at 21:00; Stop 05/14/18 at 21:05; Status DC Oxcarbazepine (Trileptal) 600 mg QHS PO Last administered on 06/14/18at 21:18; Start 05/12/18 at 21:00 Quetiapine Fumarate (SEROquel) 50 mg BID PO Last administered on 06/14/18at 21:18; Start 05/31/18 at 21:00 Risperidone (RisperDAL) 1 mg BID PO ; Start 05/31/18 at 21:00; Status Cancel Risperidone (RisperDAL) 1 mg TID PO Last administered on 05/31/18at 09:25; Start 05/15/18 at 16:00; Stop 05/31/18 at 12:55; Status DC Sertraline HCl (Zoloft) 25 mg QAM PO Last administered on 05/18/18at 08:55; Start 05/16/18 at 09:00; Stop 05/18/18 at 14:28; Status DC Sertraline HCl (Zoloft) 50 mg QAM PO Last administered on 05/19/18at 08:58; Start 05/19/18 at 09:00; Stop 05/19/18 at 14:55; Status DC Sertraline HCl (Zoloft) 75 mg QAM PO Last administered on 05/20/18at 08:16; Start 05/20/18 at 09:00; Stop 05/20/18 at 15:46; Status DC Sertraline HCl (Zoloft) 100 mg QAM PO Last administered on 05/23/18at 08:46; Start 05/21/18 at 09:00; Stop 05/23/18 at 11:20; Status DC Sertraline HCl (Zoloft) 125 mg QAM PO Last administered on 05/30/18at 09:29; Start 05/24/18 at 09:00; Stop 05/30/18 at 09:50; Status DC Trazodone HCl (Desyrel) 50 mg QHSP PRN PO INSOMNIA Last administered on 05/16/18at 22:43; Start 05/12/18 at 18:15 Allergies Coded Allergies: Penicillins (Verified Allergy, Unknown, 07/19/12) Penicillins Cross Reactors (Verified Allergy, Unknown, 07/19/12) YAAKOV BAILEY MD Jun 14, 2018 21:53
[2018-06-15] MEDS: LEVOTHYROXINE 100MCG TABLET (0.1MG) PO SCH (06:04)
[2018-06-15] MEDS: HumaLOG INSULIN (NovoLOG) PER UNIT SC SCH ×2 (06:41→11:50)
[2018-06-15] MEDS: metFORMIN (GLUCOPHAGE) 1000 MG TABLET PO SCH (07:49)
[2018-06-15] MEDS: LORazepam 1 MG TAB PO SCH (09:08)
[2018-06-15] MEDS: BENZTROPINE 1 MG TAB PO SCH (09:08)
[2018-06-15] MEDS: buPROPion **SR TABLET** (ZYBAN) 150MG PO SCH (09:08)
[2018-06-15] MEDS: QUEtiapine FUMARATE 50 MG TAB PO SCH (09:08)
[2018-06-15] MEDS: GABAPENTIN 300 MG CAP PO SCH (09:08)
[2018-06-15] MEDS: FLUoxetine 20 MG CAP PO SCH (09:08)
[2018-06-15 09:09] VITALS: BP 125/86
[2018-06-15] MEDS: amLODIPine 10 MG TAB PO SCH (09:09)
[2018-06-15] MEDS: LISINOPRIL 20 MG TAB PO SCH (09:09)
== END 2018-06-15 13:40 | DRG 885 ==
LOC: M ED 14:59 → M ED INP 18:01 → M PSY 18:56
PROVIDERS: ADMIT Psychiatry & Neurology Psychiatry; ATTEND Psychiatry & Neurology Psychiatry
DX: F31.30 Bipolar disorder, current episode depressed, mild or moderate severity, unspecified (principal); R45.851 Suicidal ideations; Z79.899 Other long term (current) drug therapy; Z88.0 Allergy status to penicillin; I10 Essential (primary) hypertension; E03.9 Hypothyroidism, unspecified; E66.9 Obesity, unspecified; G47.00 Insomnia, unspecified; E78.5 Hyperlipidemia, unspecified; E11.51 Type 2 diabetes mellitus with diabetic peripheral angiopathy without gangrene; F41.9 Anxiety disorder, unspecified; Z68.33 Body mass index [BMI] 33.0-33.9, adult

== ENCOUNTER 2018-12-09 17:05 | Inpatient (IN) | payer MEDICARE, MEDICAID ==
[~2018-12-09] VITALS: Ht 177.8 cm; Wt 110.0 kg
[~2018-12-09 17:05] MED LIST changes: -/AMLO25TA OR; -/ATOR40TA PO; -/ESCI20TA OR; -/HALO5TAB OR; -/QUET10TA; -/QUET10TA PO; +ABIL400I IM; +AMLO10TA5 PO; -BENZ1TA PO; +BENZ1TAB42 PO; +BUPR15TASR PO; +DILT1CAP6 PO; -DILT240C77 PO; +DOXE50CA PO; +FLUO20CA19 PO; +GLUC1000 PO; +HALO1TAB21 OR; +JARD1TAB PO; +LEXA1TAB2 OR; +LIPI1TAB2 PO; +LISI-538 PO; +LORA1TAB12 PO; +MIRT15TA3 PO; +MIRT1TAB PO; +NORV2TAB OR; +QUET5TAB PO; +SERO1TAB; +SERO1TAB PO; -SERT25TA PO; +SERT25TA85 PO; +TRAZ1TAB10 PO; -TRAZO50TA PO; +VRAY3CAP PO
[2018-12-09] MEDS ORDERED: ADACEL/BOOSTRIX VACCINE (DIPHTH/PERTUSS/ACELL/TETANUS)0.5ML SYR (90715) IM ONE (17:45)
[2018-12-09 18:00] LABS: HEMATOCRIT 42.8 % (42.0-52.0); HEMOGLOBIN 14.2 g/dl (13.5-17.5); MEAN CORPUSCULAR HGB CONC 33.2 g/dl (32.0-36.5); MEAN CORPUSCULAR VOLUME 87.5 fl (80.0-96.0); PLATELET COUNT, AUTOMATED 322 10^3/uL (150-450); RED BLOOD COUNT 4.89 10^6/uL (4.30-6.10); WHITE BLOOD COUNT 15.7 10^3/uL (4.0-10.0)
[2018-12-09 18:30] LABS: ACETAMINOPHEN LEVEL < 2.0 UG/ML (10.0-30.0); ALBUMIN 4.3 GM/DL (3.2-5.2); ALT/SGPT 34 U/L (12-78); AMPHETAMINES LEVEL URINE NEGATIVE (NEGATIVE); BARBITURATES URINE NEGATIVE (NEGATIVE); BENZODIAZEPINES URINE NEGATIVE (NEGATIVE); BILIRUBIN,DIRECT 0.3 MG/DL (0.0-0.2); BLOOD UREA NITROGEN 19 MG/DL (7-18); CANNABINOIDS URINE NEGATIVE (NEGATIVE); CARBON DIOXIDE LEVEL 26 MEQ/L (21-32); CHLORIDE LEVEL 105 MEQ/L (98-107); CK-MB VALUE MASS 6.2 NG/ML (<3.6); COCAINE METABOLITE URINE NEGATIVE (NEGATIVE); CPK CREATINE PHOSPHOKINASE 356 U/L (39-308); CREATININE FOR GFR 0.87 MG/DL (0.70-1.30); ETHYL ALCOHOL (ETHANOL) 0.003 % (0.000-0.010); GLOMERULAR FILTRATION RATE > 60.0 (>56); GLUCOSE, FASTING 227 MG/DL (70-100); LITHIUM LEVEL 0.45 MEQ/L (0.60-1.20); MB/CK RELATIVE INDEX 1.74 (< OR =4); METHADONE URINE NEGATIVE (NEGATIVE); OPIATES URINE NEGATIVE (NEGATIVE); PHENCYCLIDINE URINE NEGATIVE (NEGATIVE); POTASSIUM SERUM 3.8 MEQ/L (3.5-5.1); SALICYLATE LEVEL < 1.7 MG/DL (5.0-30.0); SODIUM LEVEL 140 MEQ/L (136-145); TOTAL PROTEIN 7.7 GM/DL (6.4-8.2); TROPONIN I < 0.02 NG/ML (< 0.10)
[2018-12-09] MEDS ORDERED: NS 1,000 ML IV ONE (18:45)
[2018-12-09] MEDS ORDERED: LORazepam 1 MG TAB PO STA (20:50)
[2018-12-09 21:30] LABS: CK-MB VALUE MASS 6.4 NG/ML (<3.6); CPK CREATINE PHOSPHOKINASE 377 U/L (39-308); TROPONIN I < 0.02 NG/ML (< 0.10)
[2018-12-09] MEDS ORDERED: MAALOX 30 ML SUSP *UDC PO PRN (22:00)
[2018-12-09] MEDS ORDERED: METF10004 PO (23:15)
[2018-12-09] MEDS ORDERED: AMLO10TA5 PO (23:15)
[2018-12-09] MEDS ORDERED: LORA0.5T11 PO (23:15)
[2018-12-09] MEDS ORDERED: BENZ-52 PO (23:25)
[2018-12-09] MEDS ORDERED: RISP50INJ IM (23:25)
[2018-12-09] MEDS ORDERED: LITH300T2 PO ×2 (23:25)
[2018-12-09] MEDS ORDERED: LISI-538 PO (23:25)
[2018-12-09] MEDS ORDERED: NOVOINJ3 SC (23:25)
[2018-12-09] MEDS ORDERED: DOCU100C17 PO (23:25)
[2018-12-09] MEDS ORDERED: OLAN10TA2 PO (23:25)
[2018-12-09] MEDS ORDERED: OLAN7.5T PO (23:25)
[2018-12-09] MEDS ORDERED: PATIENT COMMENTS (23:28)
--- NOTE | 2018-12-09 23:58 | ECGEPIP ---
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
--- NOTE | 2018-12-10 | ECGEPIP ---
[facility] - ED Test Date: 2018-12-09 Pat Name: RADHA MAY Department: Room: - Gender: Male [employer] D[employer] Supervisor: alisha : 1970 Requested By: Ty Cartwright Order Number: [id number] Reading MD: Aung Urias Measurements Intervals [place] Rate: 107 P: KS: 0 QRS: 63 QRSD: 113 T: -10 QT: 365 QTc: 487 Interpretive Statements Sinus tachycardia Prolonged QTc interval Left ventricular hypertrophy with ST-T Change Rate and QT interval increased from tracing done 18:35 on the same day Electronically Signed on 12-10-2018 0:00:40 EDT by Aung Urias
[2018-12-10 00:15] VITALS: BP 160/98
[2018-12-10] MEDS ORDERED: LORazepam 2 MG TAB PO ONE (00:45)
[2018-12-10] MEDS ORDERED: HALOPERIDOL 5 MG TAB PO ONE (00:45)
--- NOTE | 2018-12-10 03:09 | HPEPDOC ---
[facility] Medical History & Physical Date of Admission Dec 10, 2018 Date of Service: Dec 10, 2018 History and Physical CHIEF COMPLAINT: [consult for abnormal ekg ] HISTORY OF PRESENT ILLNESS: [Patient is a 48 y m with hx of schizoaffective disorder, dm2, htn, bipolar d/o, in manic episode currently who denied chest pain, sob, headache or change in vision. Patient has disorganized thoughts, ] PAST MEDICAL HISTORY: 1. [htn]. 2. [dm2]. 3. [bipolar d/o 5. shizoaffective d/o]. PAST SURGICAL HISTORY: unable to get info SOCIAL HISTORY: denied drinking, smoking, or drug use FAMILY HISTORY: unable to received - pt is very tangential ALLERGIES: Please see below. HOME MEDICATIONS: Please see below. ROS - all 10 point review of system is negative except for whats listed in HPI Physical exam Gen: NAD, healthy appearing , HEENT: normocephalic, atraumatic, no discharge from ears or nose, no oropharyngeal erythema or exudate, neck is supple, no lymphadenopathy, trachea midline CVS: RRR, normal S1n S2, no murmur, rubs, or gallops, no edema, no jvd Resp: LCTAB, no rhonchi, wheezes or crackles Abd : soft nontender, normal bowel sounds, no rebound tenderness or guarding MSK: no swelling, full range of motion, strength 5/5 Neuro: AOA, no confusion, no focal deficit Psych: manic, grandiose ideas, flight of ideas, tangential responses LABORATORY DATA: See below. MICROBIOLOGY: Please see below. ASSESSMENT AND PLAN ABNORMAL EKG -?aflutter per read, but I did not appreciate that -f/u repeat AM ekg BIPOLAR//SCHIZO AFFECTIVE ' mgt per psych dvt ppx Vital Signs Vital Signs Date Time Temp Pulse Resp B/P (MAP) Pulse Ox O2 Delivery O2 Flow Rate FiO2 12/10/18 00:15 97.0 101 20 160/98 (118) 12/09/18 17:05 96 Room Air Laboratory Data Labs 24H Laboratory Tests 2 12/09/18 17:40: Nucleated Red Blood Cells % (auto) 0.0, Anion Gap 9, Glomerular Filtration Rate > 60.0, Calcium Level 9.0, Aspartate Amino Transf (AST/SGOT) 24, Alanine Aminotransferase (ALT/SGPT) 34, Alkaline Phosphatase 121H, Total Bilirubin 1.0, Direct Bilirubin 0.3H, Total Creatine Kinase 356H, Creatine Kinase MB 6.2H, Creatine Kinase MB Relative Index 1.74, Troponin I < 0.02, Total Protein 7.7, Albumin 4.3, Albumin/Globulin Ratio 1.26, Thyroid Stimulating Hormone (TSH) 1.320, Salicylates Level < 1.7L, Urine Amphetamines Screen NEGATIVE, Urine Benzodiazepines Screen NEGATIVE, Urine Opiates Screen NEGATIVE, Urine Methadone Screen NEGATIVE, Acetaminophen Level < 2.0L, Urine Barbiturates Screen NEGATIVE, Urine Phencyclidine Screen NEGATIVE, Turner Level 0.45L, Urine Cocaine Metabolite Screen NEGATIVE, Urine Cannabinoids Screen NEGATIVE, Ethyl Alcohol Level 0.003 12/09/18 17:47: Ammonia 27 12/09/18 20:30: Total Creatine Kinase 377H, Creatine Kinase MB 6.4H, Creatine Kinase MB Relative Index 1.70, Troponin I < 0.02 CBC/BMP Laboratory Tests 12/09/18 17:40 Red Blood Count 4.89, Mean Corpuscular Volume 87.5, Mean Corpuscular Hemoglobin 29.0, Mean Corpuscular Hemoglobin Concent 33.2, Red Cell Distribution Width 14.0 Microbiology Microbiology 12/09/18 Group A Streptococcus Screen (DAY), Received Pending Home Medications Scheduled Amlodipine Besylate (Amlodipine Besylate) 10 Mg Tablet, 10 MG PO DAILY Atorvastatin Calcium (Atorvastatin Calcium) 20 Mg Tab, 20 MG PO QHS Benztropine Mesylate (Benztropine Mesylate) 1 Mg Tablet, 1 MG PO DAILY Docusate Sodium (Docusate Sodium) 100 Mg Capsule, 100 MG PO BID Gabapentin (Gabapentin) 600 Mg Tab, 600 MG PO BID Insulin Aspart (Novolog Flexpen) 100 Unit/1 Ml Insuln.pen, 1 UNITS SC TID PER SLIDING SCALE Levothyroxine Sodium (Levothyroxine Sodium) 100 Mcg Tab, 100 MCG PO DAILY Lisinopril (Lisinopril) 20 Mg Tablet, 20 MG PO DAILY Turner Carbonate (Turner Carbonate) 300 Mg Tablet, 600 MG PO QAM Turner Carbonate (Turner Carbonate) 300 Mg Tablet, 900 MG PO QPM Lorazepam (Lorazepam) 0.5 Mg Tablet, 0.5 MG PO BID Metformin HCl (Metformin HCl) 1,000 Mg Tablet, 1,000 MG PO BID Olanzapine (Olanzapine) 10 Mg Tablet, 10 MG PO QAM Olanzapine (Olanzapine) 7.5 Mg Tablet, 15 MG PO QHS Risperidone (Risperdal Consta) 50 Mg/2 Ml Syringe, 50 MG IM Q2WK Miscellaneous Medications [Patient Comments] PATIENT IS AWARE OF HIS MEDICATIONS AND WHAT HE TAKES THEM FOR HOWEVER HE IS UNABLE TO TELL ME IF OR WHEN HE HAS TAKEN THEM MEDICATION VERIFIED WITH PHARMACY Allergies Coded Allergies: Penicillins (Verified Allergy, Intermediate, rash, 12/09/18) A-FIB/CHADSVASC A-FIB History Current/History of A-Fib/PAF?: No Current PO Anticoag Therapy: No Age/Risk Factor Scoring CHADSVASC: CHADSVASC Response (Comments) Value Age Risk Factor Age < 65 years old 0 Gender Risk Factor Male 0 Hx of CHF No 0 Hx of HTN No 0 Hx of Stroke/TIA/or VTE No 0 Hx of Diabetes No 0 Hx of Vascular Disease No 0 Total 0 Treatment Treatment ordered: NONE Reason Anticoagulant not given: Not indicated/[id number] VIN COOL MD Dec 10, 2018 03:09
[2018-12-10] MEDS: ACETAMINOPHEN TAB 650MG DOSE (2X325MG) PO PRN (05:29)
[2018-12-10 06:53] VITALS: BP 133/75
[2018-12-10] MEDS ORDERED: GLUCOSE 4 GM CHEW TABLET PO PRN (09:45)
[2018-12-10] MEDS ORDERED: GLUCAGON FOR INJ 1 MG VIAL (J1610) SC PRN (09:45)
[2018-12-10] MEDS ORDERED: DEXTROSE 50% 50 ML SYRINGE IV PRN (09:45)
[2018-12-10] MEDS ORDERED: CEPACOL LOZENGE PO PRN (09:45)
[2018-12-10] MEDS: metFORMIN (GLUCOPHAGE) 1000 MG TABLET PO SCH ×2 (09:57→17:03)
[2018-12-10] MEDS: LISINOPRIL 20 MG TAB PO SCH (09:57)
[2018-12-10] MEDS: amLODIPine 10 MG TAB PO SCH (09:57)
--- NOTE | 2018-12-10 10:19 | REP ---
Portable chest, 09:53 a.m., single AP view with the patient upright: Comparison is 01/09/2014. The lung richardson are clear. The cardiac size is normal. The nicolle, mediastinum, and skeletal structures are unremarkable. Impression: Negative portable chest. There is no interval change. Electronically Signed by Raj Yu MD 12/10/2018 10:11 A
[2018-12-10 10:30] LABS: BASO # 0.1 10^3/uL (0.0-0.2); BASO % 0.4 % (0.0-1.0); EOS # 0.3 10^3/uL (0.0-0.50); EOS % 2.2 % (0.0-3.0); HEMATOCRIT 40.9 % (42.0-52.0); HEMOGLOBIN 13.7 g/dl (13.5-17.5); LYMPH # 1.6 10^3/uL (1.5-4.5); MEAN CORPUSCULAR HEMOGLOBIN 28.5 pg (27.0-33.0); MEAN CORPUSCULAR HGB CONC 33.5 g/dl (32.0-36.5); MEAN CORPUSCULAR VOLUME 85.2 fl (80.0-96.0); MONO # 0.9 10^3/uL (0.0-0.8); MONO % 6.9 % (0.0-5.0); NEUTROPHILS # 9.6 10^3/uL (1.8-7.7); NEUTROPHILS % 76.9 % (36.0-66.0); PLATELET COUNT, AUTOMATED 322 10^3/uL (150-450); WHITE BLOOD COUNT 12.5 10^3/uL (4.0-10.0)
[2018-12-10 10:49] LABS: ERYTHROCYTE SEDIMENTATION RATE 7 mm/hr (0-20)
[2018-12-10 10:50] LABS: HEMOGLOBIN A1c 7.6 %
[2018-12-10 10:52] LABS: ALBUMIN 3.9 GM/DL (3.2-5.2); ALT/SGPT 34 U/L (12-78); BLOOD UREA NITROGEN 16 MG/DL (7-18); C REACTIVE PROTEIN QUANTITATIV 1.05 MG/DL (0.00-0.30); CALCIUM LEVEL 8.3 MG/DL (8.5-10.1); CARBON DIOXIDE LEVEL 25 MEQ/L (21-32); CHLORIDE LEVEL 101 MEQ/L (98-107); GLOMERULAR FILTRATION RATE > 60.0 (>56); GLUCOSE, FASTING 366 MG/DL (70-100); POTASSIUM SERUM 3.8 MEQ/L (3.5-5.1); SODIUM LEVEL 134 MEQ/L (136-145); TOTAL PROTEIN 7.6 GM/DL (6.4-8.2)
[2018-12-10] MEDS: DOCUSATE SODIUM 100 MG CAP PO SCH ×2 (10:54→21:34)
[2018-12-10] MEDS: HumaLOG INSULIN (NovoLOG) PER UNIT SC SCH ×3 (12:03→21:00)
[2018-12-10] MEDS: CEPACOL LOZENGE PO PRN (12:04)
[2018-12-10] MEDS: HALOPERIDOL 5 MG TAB PO PRN ×2 (12:09→16:48)
[2018-12-10] MEDS: LORazepam 2 MG TAB PO PRN ×3 (12:09→21:40)
[2018-12-10] MEDS: MOM 30ML SUSPENSION UDC PO PRN (13:58)
[2018-12-10] MEDS ORDERED: DIVALPROEX 500MG *ER* TAB PO ONE (14:00)
--- NOTE | 2018-12-10 14:54 | ECGEPIP ---
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
--- NOTE | 2018-12-10 15:15 | MHHPEPDOC ---
[facility] History & Physical History and Physical DATE OF ADMISSION: Dec 09, 2018 at 21:59 Date of Service: 12/10/2018 Chief Complaint "I need you to write down things." History of Present Illness The patient, a 48-year-old man, with a history of schizophrenia versus bipolar, presents to [facility]. Initially upon presentation, it was noted that he had been brought in by a pickup order by his outpatient psychiatrist, Dr. Marina, at the [facility]. He was noted to be acting very bizarre and was not at his baseline and was not taking his medications per his psychiatrist. He was noted to be in a manic state with rapid pressured and conf used thoughts. He made very little sense in the emergency room and he was recently discharged from [facility] long-term 3 weeks ago. When the patient was attempted to be met with, he continued to attempt to get this provider to write down various things. When this was declined, the patient generally considered to perseverate on multiple different complaints and paranoid thoughts, unable to engage in any interview. Below the majority of psychosocial information is extracted from the chart due to psychosis. Review Of Systems The patient is unable to engage in a full and extensive review of psychiatric symptoms due to psychosis. Past Psychiatric History The patient has an extensive mental history with multiple admissions. He has recently been in [facility] for long-term care, recently getting out 3 weeks ago[address] He sees Dr. Marina at the [facility] for psychiatric treatment. He was last in our hospital in May 2018. His last medications appear to show that he was on Vraylar 3 mg daily, quetiapine on his last discharge. However, on this most recent discharge, appears that he was primarily on lithium, but it appears that he was highly unlikely to be taking it. Has multiple history of suicidal ideations, unclear if any past history of suicide. Allergies Please see below. Family Psychiatric History The patient denies/is unaware any history of mental health history including addictions and suicide. Social History The patient reportedly grew up in this area. He is never and reportedly has two daughters who are his primary support structure. He apparently has no major legal problems and is currently on social security disability, graduated high school. He reportedly grew up in a family with parents with a good relationship. Reportedly, he was diagnosed with bipolar and then schizophrenia at age 17. Substance Abuse History The patient denies any substance use on presentation. It is unclear if he has a significant use history. However, his toxicology is negative at this time with no previous notations of significant substance use. Medical History The patient has a history of heart problems as well as high cholesterol and a- fib of which he is being treated by the medical providers on our unit. Mental Status Examination General: Poor hygiene Speech: Highly pressured Thought processes: Tangential MSK: Psychomotor agitation with pacing Thought content: Bizarre, paranoid and confused Abstract reasoning, and computation: [place] Description of associations: Loose Description of abnormal or psychotic thoughts: Denies any suicidal or homicidal thoughts. Appears to respond to internal stimuli at times. Judgment: Poor Insight: Poor Orientation: Alert and orientated 3 Cognition: Grossly normal Recent and remote memory: Impaired Attention span and concentration: Impaired Fund of knowledge: Adequate Mood: "fine" Affect: Labile Diagnoses Bipolar disorder, type 1, most recent episode manic. Assessment and Plan The patient, a 48-year-old man, with a long history of bipolar disorder and fairly intensive long-term treatment, presents to [facility] after not taking his medications and on a pickup order from his outpatient psychiatrist. It appears highly likely that the patient has been non-complaint with his treatment and thus will need to be restarted on home treatment. His lithium is likely a problem due to concerns with cardiovascular toxicity. Disposition The patient will need an admission likely lasting longer than two midnights in order to stabilize his severe psychosis. Problem List 1. Altered thoughts. 2. Kristin. 3. Non-compliance. Initial Treatment Plan 1. Patient was admitted on a 9.39 legal status. 2. Complete history was obtained. 3. With patients permission, family will be contacted and database will be expanded. 4. Patients medication regimen will be reviewed and changed accordingly. 5. Patient will be provided with protected environment. 6. Patient will be treated with individual, group, and milieu therapies. 7. Patient will receive supportive psych-education. 8. Discharge planning will commence immediately. 9. Outpatient follow-up treatment will be strongly recommended. 10. The initial treatment plan will focus initially on starting Depakote 500 mg BID. Liver enzymes normal. Patient wished to have ammonia checked before taking. Ammonia normal. Additionally, starting Haldol 5 mg nightly. As per recommended guidelines, lithium would be poor option due to cardiovascular toxicity. Currently being seen by hospitalist for cardiovascular issues. Estimated Length Of Stay 7 days. Time Spent 45 minutes with greater than 50% of time on coordination of care. Wednesday Vital Signs Vital Signs Date Time Temp Pulse Resp B/P (MAP) Pulse Ox O2 Delivery O2 Flow Rate FiO2 12/10/18 09:57 96 176/80 12/10/18 06:53 97.3 16 12/09/18 17:05 96 Room Air Laboratory Data 24H Labs Laboratory Tests 2 12/09/18 17:40: Nucleated Red Blood Cells % (auto) 0.0, Anion Gap 9, Glomerular Filtration Rate > 60.0, Calcium Level 9.0, Aspartate Amino Transf (AST/SGOT) 24, Alanine Aminotransferase (ALT/SGPT) 34, Alkaline Phosphatase 121H, Total Bilirubin 1.0, Direct Bilirubin 0.3H, Total Creatine Kinase 356H, Creatine Kinase MB 6.2H, Creatine Kinase MB Relative Index 1.74, Troponin I < 0.02, Total Protein 7.7, Albumin 4.3, Albumin/Globulin Ratio 1.26, Thyroid Stimulating Hormone (TSH) 1.320, Salicylates Level < 1.7L, Urine Amphetamines Screen NEGATIVE, Urine Benzodiazepines Screen NEGATIVE, Urine Opiates Screen NEGATIVE, Urine Methadone Screen NEGATIVE, Acetaminophen Level < 2.0L, Urine Barbiturates Screen NEGATIVE, Urine Phencyclidine Screen NEGATIVE, Stem Level 0.45L, Urine Cocaine [place] bolite Screen NEGATIVE, Urine Cannabinoids Screen NEGATIVE, Ethyl Alcohol Level 0.003 12/09/18 17:47: Ammonia 27 12/09/18 20:30: Total Creatine Kinase 377H, Creatine Kinase MB 6.4H, Creatine Kinase MB Relative Index 1.70, Troponin I < 0.02 12/10/18 10:04: Nucleated Red Blood Cells % (auto) 0.0, Anion Gap 8, Glomerular Filtration Rate > 60.0, Calcium Level 8.3L, Aspartate Amino Transf (AST/SGOT) 26, Alanine Aminotransferase (ALT/SGPT) 34, Alkaline Phosphatase 116, Total Bilirubin 1.0, Total Protein 7.6, Albumin 3.9, Albumin/Globulin Ratio 1.05, Immature Granulocyte % (Auto) 0.6, White Blood Count 12.5H, Red Blood Count 4.80, Hemogl obin 13.7, Hematocrit 40.9L, Mean Corpuscular Volume 85.2, Mean Corpuscular Hemoglobin 28.5, Mean Corpuscular Hemoglobin Concent 33.5, Red Cell Distribution Width 13.7, Platelet Count 322, Neutrophils (%) (Auto) 76.9H, Lymphocytes (%) (Auto) 13.0L, Monocytes (%) (Auto) 6.9H, Eosinophils (%) (Auto) 2.2, Basophils (%) (Auto) 0.4, Neutrophils # (Auto) 9.6H, Lymphocytes # (Auto) 1.6, Monocytes # (Auto) 0.9H, Eosinophils # (Auto) 0.3, Basophils # (Auto) 0.1, Erythrocyte Sedimentation Rate 7, Estimated Mean Plasma Glucose 171H, Hemoglobin A1c 7.6, Blood Urea Nitrogen 16, Creatinine 1.00, Sodium Level 134L, Potassium Level 3.8, Chloride Level 101, Carbon Dioxide Level 25, C-Reactive Protein, Quantitative 1.05H 12/10/18 11:43: Bedside Glucose (Misc Panel) 313H 12/10/18 14:02: Ammonia 29 CBC/BMP Laboratory Tests 12/09/18 17:40 Red Blood Count 4.89, Mean Corpuscular Volume 87.5, Mean Corpuscular Hemoglobin 29.0, Mean Corpuscular Hemoglobin Concent 33.2, Red Cell Distribution Width 14.0 12/10/18 10:04 Red Blood Count 4.80, Mean Corpuscular Volume 85.2, Mean Corpuscular Hemoglobin 28.5, Mean Corpuscular Hemoglobin Concent 33.5, Red Cell Distribution Width 13.7, Neutrophils (%) (Auto) 76.9 H, Lymphocytes (%) (Auto) 13.0 L, Monocytes (%) (Auto) 6.9 H, Eosinophils (%) (Auto) 2.2, Basophils (%) (Auto) 0.4, Marissa trophils # (Auto) 9.6 H, Lymphocytes # (Auto) 1.6, Monocytes # (Auto) 0.9 H, Eosinophils # (Auto) 0.3, Basophils # (Auto) 0.1, Calcium Level 8.3 L, Aspartate Amino Transf (AST/SGOT) 26, Alanine Aminotransferase (ALT/SGPT) 34, Alkaline Phosphatase 116, Total Bilirubin 1.0, Total Protein 7.6, Albumin 3.9 FSBS Laboratory Tests Test 12/10/18 11:43 Range/Units Bedside Glucose (Misc Panel) 313 70-105 MG/DL Medications Scheduled Amlodipine Besylate (Amlodipine Besylate) 10 Mg Tablet, 10 MG PO DAILY, (Reported) Atorvastatin Calcium (Atorvastatin Calcium) 20 Mg Tab, 20 MG PO QHS, (Reported) Benztropine Mesylate (Benztropine Mesylate) 1 Mg Tablet, 1 MG PO DAILY, (Reported) Docusate Sodium (Docusate Sodium) 100 Mg Capsule, 100 MG PO BID, (Reported) Gabapentin (Gabapentin) 600 Mg Tab, 600 MG PO BID, (Reported) Insulin Aspart (Novolog Flexpen) 100 Unit/1 Ml Insuln.pen, 1 UNITS SC TID, (Reported) PER SLIDING SCALE Levothyroxine Sodium (Levothyroxine Sodium) 100 Mcg Tab, 100 MCG PO DAILY, (Reported) Lisinopril (Lisinopril) 20 Mg Tablet, 20 MG PO DAILY, (Reported) Stem Carbonate (Stem Carbonate) 300 Mg Tablet, 600 MG PO QAM, (Reported) Stem Carbonate (Stem Carbonate) 300 Mg Tablet, 900 MG PO QPM, (Reported) Lorazepam (Lorazepam) 0.5 Mg Tablet, 0.5 MG PO BID, (Reported) Metformin HCl (Metformin HCl) 1,000 Mg Tablet, 1,000 MG PO BID, (Reported) Olanzapine (Olanzapine) 10 Mg Tablet, 10 MG PO QAM, (Reported) Olanzapine (Olanzapine) 7.5 Mg Tablet, 15 MG PO QHS, (Reported) Risperidone (Risperdal Consta) 50 Mg/2 Ml Syringe, 50 MG IM Q2WK, (Reported) Miscellaneous Medications [Patient Comments] , (Reported) PATIENT IS AWARE OF HIS MEDICATIONS AND WHAT HE TAKES THEM FOR HOWEVER HE IS UNABLE TO TELL ME IF OR WHEN HE HAS TAKEN THEM MEDICATION VERIFIED WITH PHARMACY Allergies Coded Allergies: Penicillins (Verified Allergy, Intermediate, rash, 12/09/18) MIKA URBINA DO Dec 10, 2018 15:15
[2018-12-10 18:00] VITALS: BP 120/77
[2018-12-10] MEDS: ATORVASTATIN 20 MG TAB PO SCH (21:34)
[2018-12-10] MEDS: HALOPERIDOL 5 MG TAB PO SCH (21:35)
[2018-12-10] MEDS: DIVALPROEX 500MG *ER* TAB PO SCH (21:35)
[2018-12-10] MEDS: traZODone 50 MG TAB PO PRN (21:36)
[2018-12-11] MEDS: CEPACOL LOZENGE PO PRN ×3 (02:56→18:37)
[2018-12-11] MEDS: HALOPERIDOL 5 MG TAB PO PRN (03:38)
[2018-12-11] MEDS: LORazepam 2 MG TAB PO PRN (03:38)
[2018-12-11] MEDS: LEVOTHYROXINE 100MCG TABLET (0.1MG) PO SCH (05:56)
[2018-12-11] MEDS: HumaLOG INSULIN (NovoLOG) PER UNIT SC SCH ×4 (06:35→21:00)
[2018-12-11 06:54] VITALS: BP 149/78
[2018-12-11] MEDS: metFORMIN (GLUCOPHAGE) 1000 MG TABLET PO SCH ×2 (07:38→17:00)
[2018-12-11] MEDS: DOCUSATE SODIUM 100 MG CAP PO SCH ×2 (09:03→21:26)
[2018-12-11] MEDS: DIVALPROEX 500MG *ER* TAB PO SCH ×2 (09:04→21:26)
[2018-12-11] MEDS: HALOPERIDOL 5 MG TAB PO SCH ×2 (09:04→21:26)
[2018-12-11] MEDS: LISINOPRIL 20 MG TAB PO SCH (09:05)
[2018-12-11] MEDS: amLODIPine 10 MG TAB PO SCH (09:05)
[2018-12-11] MEDS: ACETAMINOPHEN TAB 650MG DOSE (2X325MG) PO PRN ×2 (10:45→18:37)
--- NOTE | 2018-12-11 17:55 | MHIPNPDOC ---
[facility] Progress Note Progress Note Date of Service: 12/11/2018 History of Present Illness The patient, a 48-year-old man, with a history of schizophrenia versus bipolar, presents to [facility]. Initially upon presentation, it was noted that he had been brought in by a pickup order by his outpatient psychiatrist, Dr. Marina, at the [facility]. He was noted to be acting very bizarre and was not at his baseline and was not taking his medications per his psychiatrist. He was noted to be in a manic state with rapid pressured and confused thoughts. He made very little sense in the emergency room and he was recently discharged from [facility] 3 weeks ago. Interval History The patient has met with today. He still remains fairly bizarre, paranoid and disorganized. He reports that he's tolerating the Depakote well. Denies any tremors, GI upset, dizziness or other potential side effects from Depakote. He generally continues to perseverate on a reported plot against himself against him by various people. He's still highly disorganized and the story is very difficult to follow. Review Of Systems Remains grandiose, impulsive, needs very little sleep, elated at one time and liable at another. Psychotherapy None on this visit. Vital Signs Reviewed. Mental Status Examination General: Poor hygiene Speech: Highly pressured Thought processes: Tangential MSK: Psychomotor agitation with pacing Thought content: Bizarre, paranoid and confused Abstract reasoning, and computation: [place] Description of associations: Loose Description of abnormal or psychotic thoughts: Denies any suicidal or homicidal thoughts. Appears to respond to internal stimuli at times. Judgment: Poor Insight: Poor Orientation: Alert and orientated 3 Cognition: Grossly normal Recent and remote memory: Impaired Attention span and concentration: Impaired Fund of knowledge: Adequate Mood: "fine" Affect: Labile Diagnoses Bipolar disorder, type 1, most recent episode manic. Assessment and Plan The patient will be continued on the Depakote and Haldol below. No ammonemia or other problems noted. Will further assess. Appears to make some mild improvement on the Depakote with less impulsivity and hyperactivity. Disposition The patient will need a further in-patient stay as he is still fairly sick, psychotic and unable to take care of himself to an extensive degree. Time Spent 20 minutes with greater than 50% of time on coordination of care. Wednesday Vital Signs Vital Signs Date Time Temp Pulse Resp B/P (MAP) Pulse Ox O2 Delivery O2 Flow Rate FiO2 12/11/18 09:05 94 130/77 12/11/18 06:54 97.6 14 12/09/18 17:05 96 Room Air Laboratory Data 24H Labs Laboratory Tests 2 12/10/18 21:42: Bedside Glucose (Misc Panel) 153H 12/11/18 05:54: Bedside Glucose (Misc Panel) 127H 12/11/18 11:47: Bedside Glucose (Misc Panel) 181H 12/11/18 15:05: 12/11/18 16:58: Bedside Glucose (Misc Panel) 129H Current Medications Current Medications Medications (Trade) Dose Ordered Sig/Kailey Route PRN Reason Start Time Stop Time Status Last Admin Dose Admin Acetaminophen (Tylenol Tab) 650 mg Q6HP PRN PO HEADACHE or DISCOMFORT 12/09/18 22:00 12/11/18 10:45 Al Hydrox/Mg Hydrox/Simethicone (Mylanta) 30 ml Q4HP PRN PO HEARTBURN/INDIGESTION 12/09/18 22:00 Amlodipine Besylate (Norvasc) 10 mg DAILY PO 12/10/18 09:00 12/11/18 09:05 Atorvastatin Calcium (Lipitor) 20 mg QHS PO 12/10/18 21:00 12/10/18 21:34 Cetylpyridinium Chloride (Cepacol) 1 pranav Q2HP PRN PO COUGH 12/10/18 10:30 12/11/18 14:21 Cetylpyridinium Chloride (Cepacol) 2 pranav Q2HP PRN PO SORE THROAT 12/10/18 09:45 12/10/18 10:23 DC Dextrose (Dextrose 50%) 25 ml ASDIRECTED PRN IV SEE LABEL COMMENTS 12/10/18 09:45 Divalproex Sodium (Depakote Er) 500 mg BID PO 12/10/18 21:00 12/11/18 09:04 Docusate Sodium (Colace) 100 mg BID PO 12/10/18 09:00 12/11/18 09:03 Glucagon (Glucagon) 1 mg ASDIRECTED PRN SC SEE LABEL COMMENTS 12/10/18 09:45 Glucose (Glucose) 16 GM ASDIRECTED PRN PO SEE LABEL COMMENTS 12/10/18 09:45 Haloperidol (Haldol) 5 mg BID PO 12/10/18 21:00 12/11/18 09:04 Haloperidol (Haldol) 5 mg Q4HP PRN PO ANXIETY/AGITATION 12/10/18 12:00 12/11/18 03:38 Home Med (Med Rec Complete!) ASDIRECTED XX 12/09/18 23:30 12/09/18 23:32 DC Insulin Human Lispro (HumaLOG INSULIN) SEE PROTOCOL TABLE AC SC 12/10/18 12:00 12/11/18 17:00 Insulin Human Lispro (HumaLOG INSULIN) SEE PROTOCOL TABLE QHS SC 12/10/18 21:00 Levothyroxine Sodium (Synthroid) 100 mcg DAILY@0600 PO 12/11/18 06:00 12/11/18 05:56 Lisinopril (Prinivil) 20 mg DAILY PO 12/10/18 09:00 12/11/18 09:05 Lorazepam (Ativan) 1 mg STAT STAT PO 12/09/18 20:50 12/09/18 20:51 DC 12/09/18 21:33 Lorazepam (Ativan) 2 mg Q4HP PRN PO ANXIETY/AGITATION 12/10/18 12:00 12/11/18 03:38 Magnesium Hydroxide (Milk Of Magnesia) 30 ml DAILYPRN PRN PO CONSTIPATION 12/09/18 22:00 12/10/18 13:58 Metformin HCl (Glucophage) 1,000 mg BIDWM PO 12/10/18 08:00 12/11/18 17:00 Trazodone HCl (Desyrel) 50 mg QHSP PRN PO INSOMNIA 12/09/18 22:00 12/10/18 21:36 Allergies Coded Allergies: Penicillins (Verified Allergy, Intermediate, rash, 12/09/18) MIKA URBINA DO Dec 11, 2018 17:55
[2018-12-11 18:00] VITALS: BP 134/83
[2018-12-11] MEDS: ATORVASTATIN 20 MG TAB PO SCH (21:26)
[2018-12-11] MEDS: traZODone 50 MG TAB PO PRN (21:26)
[2018-12-12] MEDS: HALOPERIDOL 5 MG TAB PO PRN (02:46)
[2018-12-12] MEDS: CEPACOL LOZENGE PO PRN ×4 (02:46→19:29)
[2018-12-12] MEDS: LORazepam 2 MG TAB PO PRN ×2 (02:46→21:43)
[2018-12-12] MEDS: ACETAMINOPHEN TAB 650MG DOSE (2X325MG) PO PRN ×2 (02:47→12:02)
[2018-12-12] MEDS: LEVOTHYROXINE 100MCG TABLET (0.1MG) PO SCH (06:03)
[2018-12-12] MEDS: HumaLOG INSULIN (NovoLOG) PER UNIT SC SCH ×4 (06:35→20:06)
[2018-12-12 06:58] VITALS: BP 139/81
[2018-12-12] MEDS: metFORMIN (GLUCOPHAGE) 1000 MG TABLET PO SCH ×2 (07:40→17:06)
[2018-12-12] MEDS: HALOPERIDOL 5 MG TAB PO SCH (09:00)
[2018-12-12] MEDS: DIVALPROEX 500MG *ER* TAB PO SCH (09:25)
[2018-12-12] MEDS: DOCUSATE SODIUM 100 MG CAP PO SCH ×2 (09:25→21:42)
[2018-12-12] MEDS: LISINOPRIL 20 MG TAB PO SCH (09:26)
[2018-12-12] MEDS: amLODIPine 10 MG TAB PO SCH (09:26)
--- NOTE | 2018-12-12 09:46 | IPN ---
DATE: 12/10/2018 Patient, despite having blood pressure 150-176 denies any headache, changes in vision. Denies any chest pain, pressure, tightness or shortness of breath. He is due for his lisinopril and Norvasc, but has not been given this morning yet. He complains of having his medications withheld. He is gregarious, difficult to interrupt during the interview and appears to be in a manic state, managed by his psychiatrist. Patient complains of a cough, dry heaving with no fever, chills, and nonproductive. No nauseas, vomiting, headaches or diarrhea. PHYSICAL EXAMINATION: Temperature 97.3, pulse 101, respiratory 16, blood pressure 133/75, 96% on room air. Generally patient appears manic with pressured speech. No use of respiratory accessory muscles. Awake, alert, oriented to person and place. Able to speak in full sentences. Moist mucous membranes. Pupils nonreactive. Extraocular muscles are intact. Lungs are clear to auscultation, no wheezing, rales or rhonchi. Abdomen is soft, nontender. Nondistended. Positive bowel sounds. Extremities: No cyanosis, clubbing or pitting edema. Muscle strength is 5/5 of his lower extremities. Neurologically, he is awake, alert, oriented to himself and place. Psychiatric: He has pressured speech. Appears to be manic. Continues to have tangential conversations. LABORATORY DATA: 12/10/2018 CBC and metabolic panel have been reviewed. ASSESSMENT/PLAN: This is a 48-year-old male with bipolar disorder, hypertension, diabetes, and schizoaffective disorder with the following acute issues: 1. Uncontrolled type 2 diabetes with A1c 7.6, bedside glucose of 366 fasting. Patient has been resumed on his home dose of metformin. He may need insulin if this does not improve. He is continued on a consistent carbohydrate diet, insulin sliding scale every morning and evening and hypoglycemic protocol. 2. Hypertension: On Norvasc and lisinopril. Appears to be uncontrolled. Will wait for administration of medications and monitor for the next 24 hours. Will decide on titration depending on blood pressure. 3. Dyslipidemia: Continue on Lipitor. 4. Hypothyroidism: Continue Synthroid. 5. Bipolar disorder: Managed by psychiatrist. 6. Cough: Check chest x-ray. No empiric antibiotics. MTDD
--- NOTE | 2018-12-12 10:55 | MHIPNPDOC ---
[facility] Progress Note Progress Note DATE OF SERVICE: 12/12/18 HISTORY: Per Dr. Oakley "The patient, a 48-year-old man, with a history of schizophrenia versus bipolar, presents to [facility]. Initially upon presentation, it was noted that he had been brought in by a pickup order by his outpatient psychiatrist, Dr. Marina, at the [facility]. He was noted to be acting very bizarre and was not at his baseline and was not taking his medications per his psychiatrist. He was noted to be in a manic state with rapid pressured and confused thoughts. He made very little sense in the emergency room and he was recently discharged from [facility] 3 weeks ago. When the patient was attempted to be met with, he continued to attempt to get this provider to write down various things. When this was declined, the patient generally considered to perseverate on multiple different complaints and paranoid thoughts, unable to engage in any interview." Below the majority of psychosocial information is extracted from the chart due to psychosis. VITAL SIGNS: See below. NEW TEST RESULTS: See below. CURRENT MEDICATIONS: See below. MENTAL STATUS EXAMINATION: General: clean, dressed in his own clothes Speech: Highly pressured Thought processes: Tangential, grandiose MSK: Psychomotor agitation with pacing Thought content: associate, grandiose, hyper-hinduism Abstract reasoning, and computation: [place] Description of associations: Loose, associative Description of abnormal or psychotic thoughts: Denies any suicidal or homicidal thoughts. Appears to respond to internal stimuli at times and states "I hear the voice of god" Judgment: Poor Insight: Poor Orientation: Alert and orientated 3 Cognition: Grossly normal Recent and remote memory: Impaired Attention span and concentration: Impaired Fund of knowledge: Adequate Mood: "I'm manic" Affect: Labile, manic, euphoric, laughing to his own statement DIAGNOSES: Bipolar disorder, type 1, most recent episode manic. ASSESSMENT:Pt seen and appears manic with tangential, grandiose thoughts and rapid, pressured speech. He is singing, discussing going to [employer] for his honeymoon when he finds someone to , laughing and continually talking about random things thru out the whole interview. States he hears the "voice of God" denies CAH. States he's not sleeping well at night. Spoke with pt who knows he should not be on Depakote due to history of severely elevated LFTs and ammonia when on it in the past. Due to risk of dehydration (got lost in the [place] he states he only drank very little "picking blackberries") Will restart trileptal for mood stabilization as he took it in the past and it was beneficial and d/c haldol and start zyprexa 5mg bid for winsome/psychosis as more sedating and has had good response to it the past. With restart outpatient seroquel for insomnia/winsome. Notes side effect of drooling with haldol and refused taking it today. He is attending groups and finding them helpful. He denies SI/HI, VH. Pt feels safe here. MANAGEMENT PLAN: d/c depakote due to side effect severe increased LFTs and gilberto ia in past. Check LFTs and ammonia level trileptal 600mg bid zyprexa 5mg bid ativan 1mg q6hr prn anxiety/agitation zyprexa zydis 5mg q6hr prn anxiety/agitation seroquel 200mg qhs TIME SPENT: 30 minutes. Vital Signs Vital Signs Date Time Temp Pulse Resp B/P (MAP) Pulse Ox O2 Delivery O2 Flow Rate FiO2 12/12/18 09:26 138/75 12/12/18 09:26 95 12/12/18 06:58 98.0 14 12/09/18 17:05 96 Room Air Laboratory Data 24H Labs Laboratory Tests 2 12/11/18 11:47: Bedside Glucose (Misc Panel) 181H 12/11/18 15:05: 12/11/18 16:58: Bedside Glucose (Misc Panel) 129H 12/11/18 21:28: Bedside Glucose (Misc Panel) 161H 12/12/18 06:02: Bedside Glucose (Misc Panel) 130H Current Medications Current Medications Medications (Trade) Dose Ordered Sig/Kailey Route PRN Reason Start Time Stop Time Status Last Admin Dose Admin Acetaminophen (Tylenol Tab) 650 mg Q6HP PRN PO HEADACHE or DISCOMFORT 12/09/18 22:00 12/12/18 02:47 Al Hydrox/Mg Hydrox/Simethicone (Mylanta) 30 ml Q4HP PRN PO HEARTBURN/INDIGESTION 12/09/18 22:00 Amlodipine Besylate (Norvasc) 10 mg DAILY PO 12/10/18 09:00 12/12/18 09:26 Atorvastatin Calcium (Lipitor) 20 mg QHS PO 12/10/18 21:00 12/11/18 21:26 Cetylpyridinium Chloride (Cepacol) 1 pranav Q2HP PRN PO COUGH 12/10/18 10:30 12/12/18 05:14 Cetylpyridinium Chloride (Cepacol) 2 pranav Q2HP PRN PO SORE THROAT 12/10/18 09:45 12/10/18 10:23 DC Dextrose (Dextrose 50%) 25 ml ASDIRECTED PRN IV SEE LABEL COMMENTS 12/10/18 09:45 Divalproex Sodium (Depakote Er) 500 mg BID PO 12/10/18 21:00 12/12/18 09:25 Docusate Sodium (Colace) 100 mg BID PO 12/10/18 09:00 12/12/18 09:25 Glucagon (Glucagon) 1 mg ASDIRECTED PRN SC SEE LABEL COMMENTS 12/10/18 09:45 Glucose (Glucose) 16 GM ASDIRECTED PRN PO SEE LABEL COMMENTS 12/10/18 09:45 Haloperidol (Haldol) 5 mg BID PO 12/10/18 21:00 12/11/18 21:26 Haloperidol (Haldol) 5 mg Q4HP PRN PO ANXIETY/AGITATION 12/10/18 12:00 12/12/18 02:46 Home Med (Med Rec Complete!) ASDIRECTED XX 12/09/18 23:30 12/09/18 23:32 DC Insulin Human Lispro (HumaLOG INSULIN) SEE PROTOCOL TABLE AC SC 12/10/18 12:00 12/12/18 06:35 Insulin Human Lispro (HumaLOG INSULIN) SEE PROTOCOL TABLE QHS SC 12/10/18 21:00 Levothyroxine Sodium (Synthroid) 100 mcg DAILY@0600 PO 12/11/18 06:00 12/12/18 06:03 Lisinopril (Prinivil) 20 mg DAILY PO 12/10/18 09:00 12/12/18 09:26 Lorazepam (Ativan) 1 mg STAT STAT PO 12/09/18 20:50 12/09/18 20:51 DC 12/09/18 21:33 Lorazepam (Ativan) 2 mg Q4HP PRN PO ANXIETY/AGITATION 12/10/18 12:00 12/12/18 02:46 Magnesium Hydroxide (Milk Of Magnesia) 30 ml DAILYPRN PRN PO CONSTIPATION 12/09/18 22:00 12/10/18 13:58 Metformin HCl (Glucophage) 1,000 mg BIDWM PO 12/10/18 08:00 12/12/18 07:40 Trazodone HCl (Desyrel) 50 mg QHSP PRN PO INSOMNIA 12/09/18 22:00 12/11/18 21:26 Allergies Coded Allergies: Penicillins (Verified Allergy, Intermediate, rash, 12/09/18) CLAIR STEIN DO Dec 12, 2018 10:55 am
[2018-12-12] MEDS ORDERED: OXcarbazepine 300 MG TAB PO ONE (12:00)
[2018-12-12] MEDS ORDERED: OLANZapine 5 MG TAB PO ONE (12:00)
[2018-12-12 12:39] LABS: ALBUMIN 3.8 GM/DL (3.2-5.2); ALT/SGPT 45 U/L (12-78); BILIRUBIN,TOTAL 0.3 MG/DL (0.2-1.0); BLOOD UREA NITROGEN 14 MG/DL (7-18); CALCIUM LEVEL 8.4 MG/DL (8.5-10.1); CARBON DIOXIDE LEVEL 25 MEQ/L (21-32); CHLORIDE LEVEL 102 MEQ/L (98-107); CREATININE FOR GFR 0.77 MG/DL (0.70-1.30); GLOMERULAR FILTRATION RATE > 60.0 (>56); GLUCOSE, FASTING 152 MG/DL (70-100); POTASSIUM SERUM 3.9 MEQ/L (3.5-5.1); SODIUM LEVEL 138 MEQ/L (136-145); TOTAL PROTEIN 7.2 GM/DL (6.4-8.2)
[2018-12-12 18:17] VITALS: BP 140/85
[2018-12-12] MEDS: MOM 30ML SUSPENSION UDC PO PRN (19:29)
[2018-12-12] MEDS: QUEtiapine FUMARATE 200 MG TAB PO SCH (21:42)
[2018-12-12] MEDS: OXcarbazepine 300 MG TAB PO SCH (21:42)
[2018-12-12] MEDS: ATORVASTATIN 20 MG TAB PO SCH (21:42)
[2018-12-12] MEDS: OLANZapine 5 MG TAB PO SCH (21:42)
[2018-12-12] MEDS: traZODone 50 MG TAB PO PRN (21:43)
[2018-12-13] MEDS: ACETAMINOPHEN TAB 650MG DOSE (2X325MG) PO PRN ×2 (04:46→09:01)
[2018-12-13] MEDS: LEVOTHYROXINE 100MCG TABLET (0.1MG) PO SCH (05:56)
[2018-12-13 06:38] VITALS: BP 122/72
[2018-12-13] MEDS: HumaLOG INSULIN (NovoLOG) PER UNIT SC SCH ×4 (06:41→21:00)
[2018-12-13] MEDS: OXcarbazepine 300 MG TAB PO SCH ×2 (08:40→20:37)
[2018-12-13] MEDS: amLODIPine 10 MG TAB PO SCH (08:40)
[2018-12-13] MEDS: metFORMIN (GLUCOPHAGE) 1000 MG TABLET PO SCH ×2 (08:40→17:22)
[2018-12-13] MEDS: LISINOPRIL 20 MG TAB PO SCH (08:40)
[2018-12-13] MEDS: OLANZapine 5 MG TAB PO SCH (08:40)
[2018-12-13] MEDS: DOCUSATE SODIUM 100 MG CAP PO SCH ×2 (08:40→20:37)
[2018-12-13] MEDS: LORazepam 2 MG TAB PO PRN (09:00)
[2018-12-13] MEDS: CEPACOL LOZENGE PO PRN (09:00)
--- NOTE | 2018-12-13 09:08 | MHIPNPDOC ---
[facility] Progress Note Progress Note DATE OF SERVICE: 12/13/18 HISTORY: Per Dr. Oakley "The patient, a 48-year-old man, with a history of schizophrenia versus bipolar, presents to [facility]. Initially upon presentation, it was noted that he had been brought in by a pickup order by his outpatient psychiatrist, Dr. Marina, at the [facility]. He was noted to be acting very bizarre and was not at his baseline and was not taking his medications per his psychiatrist. He was noted to be in a manic state with rapid pressured and confused thoughts. He made very little sense in the emergency room and he was recently discharged from [facility] 3 weeks ago. When the patient was attempted to be met with, he continued to attempt to get this provider to write down various things. When this was declined, the patient generally considered to perseverate on multiple different complaints and paranoid thoughts, unable to engage in any interview." Below the majority of psychosocial information is extracted from the chart due to psychosis. VITAL SIGNS: See below. NEW TEST RESULTS: See below. CURRENT MEDICATIONS: See below. MENTAL STATUS EXAMINATION: General: clean, dressed in his own clothes Speech: Highly pressured Thought processes: Tangential, grandiose MSK: Psychomotor agitation with pacing Thought content: associate, grandiose, hyper-sabianist Abstract reasoning, and computation: [place] Description of associations: Loose, associative Description of abnormal or psychotic thoughts: Denies any suicidal or homicidal thoughts. Appears to respond to internal stimuli at times and states "I hear the voice of god" Judgment: Poor Insight: Poor Orientation: Alert and orientated 3 Cognition: Grossly normal Recent and remote memory: Impaired Attention span and concentration: Impaired Fund of knowledge: Adequate Mood: "I'm manic" Affect: Labile, manic, euphoric, laughing to his own statement DIAGNOSES: Bipolar disorder, type 1, most recent episode manic. ASSESSMENT:Pt seen and still appears manic with tangential, grandiose thoughts and rapid, pressured speech. He gave me a copy of the obituary section from the morning paper showing me his institution librarian had and asked me if he could go to the . Stated he copied the page to hand out to others on the unit b/c it's disrespectful to tear pages out of the paper as it ruins it for others so he put the morning papers in special places so the pages couldn't be torn out. He then proceeded to tell me all he ate this morning, waking up a 3am having urinated on himself and that it was embarrassing to have the nurses help him to clean himself up then him doing squats in the shower for exercise and on. Will increase to improve winsome. He is attending groups and finding them helpful. He denies SI/HI, VH. Pt feels safe here. MANAGEMENT PLAN: increase zyprexa for winsome trileptal 600mg bid zyprexa 10mg bid ativan 1mg q6hr prn anxiety/agitation zyprexa zydis 5mg q6hr prn anxiety/agitation seroquel 200mg qhs TIME SPENT: 30 minutes. Vital Signs Vital Signs Date Time Temp Pulse Resp B/P (MAP) Pulse Ox O2 Delivery O2 Flow Rate FiO2 12/13/18 08:40 122/72 12/13/18 08:40 89 12/13/18 06:38 96.9 18 12/09/18 17:05 96 Room Air Laboratory Data 24H Labs Laboratory Tests 2 12/12/18 11:22: Bedside Glucose (Misc Panel) 156H 12/12/18 11:32: Anion Gap 11, Glomerular Filtration Rate > 60.0, Blood Urea Nitrogen 14, Creatinine 0.77, Sodium Level 138, Potassium Level 3.9, Chloride Level 102, Carbon Dioxide Level 25, Calcium Level 8.4L, Aspartate Amino Transf (AST/SGOT) 28, Alanine Aminotransferase (ALT/SGPT) 45, Alkaline Phosphatase 105, Total Bilirubin 0.3#, Total Protein 7.2, Albumin 3.8, Albumin/Globulin Ratio 1.12 12/12/18 17:03: Bedside Glucose (Misc Panel) 185H 12/12/18 19:31: Bedside Glucose (Misc Panel) 119H 12/13/18 05:55: Bedside Glucose (Misc Panel) 135H CBC/BMP Laboratory Tests 12/12/18 11:32 Calcium Level 8.4 L, Aspartate Amino Transf (AST/SGOT) 28, Alanine Aminotransferase (ALT/SGPT) 45, Alkaline Phosphatase 105, Total Bilirubin 0.3 #, Total Protein 7.2, Albumin 3.8 Current Medications Current Medications Medications (Trade) Dose Ordered Sig/Kailey Route PRN Reason Start Time Stop Time Status Last Admin Dose Admin Acetaminophen (Tylenol Tab) 650 mg Q6HP PRN PO HEADACHE or DISCOMFORT 12/09/18 22:00 12/13/18 04:46 Al Hydrox/Mg Hydrox/Simethicone (Mylanta) 30 ml Q4HP PRN PO HEARTBURN/INDIGESTION 12/09/18 22:00 Amlodipine Besylate (Norvasc) 10 mg DAILY PO 12/10/18 09:00 12/13/18 08:40 Atorvastatin Calcium (Lipitor) 20 mg QHS PO 12/10/18 21:00 12/12/18 21:42 Cetylpyridinium Chloride (Cepacol) 1 pranav Q2HP PRN PO COUGH 12/10/18 10:30 12/12/18 19:29 Cetylpyridinium Chloride (Cepacol) 2 pranav Q2HP PRN PO SORE THROAT 12/10/18 09:45 12/10/18 10:23 DC Dextrose (Dextrose 50%) 25 ml ASDIRECTED PRN IV SEE LABEL COMMENTS 12/10/18 09:45 Divalproex Sodium (Depakote Er) 500 mg BID PO 12/10/18 21:00 12/12/18 10:54 DC 12/12/18 09:25 Docusate Sodium (Colace) 100 mg BID PO 12/10/18 09:00 12/13/18 08:40 Glucagon (Glucagon) 1 mg ASDIRECTED PRN SC SEE LABEL COMMENTS 12/10/18 09:45 Glucose (Glucose) 16 GM ASDIRECTED PRN PO SEE LABEL COMMENTS 12/10/18 09:45 Haloperidol (Haldol) 5 mg BID PO 12/10/18 21:00 12/12/18 10:54 DC 12/11/18 21:26 Haloperidol (Haldol) 5 mg Q4HP PRN PO ANXIETY/AGITATION 12/10/18 12:00 12/12/18 10:54 DC 12/12/18 02:46 Home Med (Med Rec Complete!) ASDIRECTED XX 12/09/18 23:30 12/09/18 23:32 DC Insulin Human Lispro (HumaLOG INSULIN) SEE PROTOCOL TABLE AC SC 12/10/18 12:00 12/13/18 06:41 Insulin Human Lispro (HumaLOG INSULIN) SEE PROTOCOL TABLE QHS SC 12/10/18 21:00 Levothyroxine Sodium (Synthroid) 100 mcg DAILY@0600 PO 12/11/18 06:00 12/13/18 05:56 Lisinopril (Prinivil) 20 mg DAILY PO 12/10/18 09:00 12/13/18 08:40 Lorazepam (Ativan) 1 mg STAT STAT PO 12/09/18 20:50 12/09/18 20:51 DC 12/09/18 21:33 Lorazepam (Ativan) 2 mg Q4HP PRN PO ANXIETY/AGITATION 12/10/18 12:00 12/12/18 21:43 Magnesium Hydroxide (Milk Of Magnesia) 30 ml DAILYPRN PRN PO CONSTIPATION 12/09/18 22:00 12/12/18 19:29 Metformin HCl (Glucophage) 1,000 mg BIDWM PO 12/10/18 08:00 12/13/18 08:40 Olanzapine (ZyPREXA ZYDIS) 5 mg Q6HP PRN PO ANXIETY/AGITATION 12/12/18 10:45 Olanzapine (ZyPREXA) 5 mg BID PO 12/12/18 21:00 12/13/18 08:40 Oxcarbazepine (Trileptal) 600 mg BID PO 12/12/18 21:00 12/13/18 08:40 Quetiapine Fumarate (SEROquel) 200 mg QHS PO 12/12/18 21:00 12/12/18 21:42 Trazodone HCl (Desyrel) 50 mg QHSP PRN PO INSOMNIA 12/09/18 22:00 12/12/18 21:43 Allergies Coded Allergies: Penicillins (Verified Allergy, Intermediate, rash, 12/09/18) CLAIR STEIN DO Dec 13, 2018 9:08 am
[2018-12-13] MEDS ORDERED: OLANZapine 5 MG TAB PO ONE (10:00)
[2018-12-13] MEDS: OLANZapine ORAL DISINTEGRATING TAB 5MG PO PRN (15:33)
[2018-12-13 18:00] VITALS: BP 145/80
[2018-12-13] MEDS: OLANZapine 10 MG TAB PO SCH (20:37)
[2018-12-13] MEDS: ATORVASTATIN 20 MG TAB PO SCH (20:37)
[2018-12-13] MEDS: QUEtiapine FUMARATE 200 MG TAB PO SCH (20:37)
[2018-12-13] MEDS: MOM 30ML SUSPENSION UDC PO PRN (21:25)
[2018-12-14] MEDS: CEPACOL LOZENGE PO PRN ×4 (03:22→15:16)
[2018-12-14] MEDS: OLANZapine ORAL DISINTEGRATING TAB 5MG PO PRN (04:05)
[2018-12-14] MEDS: LEVOTHYROXINE 100MCG TABLET (0.1MG) PO SCH (05:33)
[2018-12-14 06:20] VITALS: BP 141/67
[2018-12-14] MEDS: DOCUSATE SODIUM 100 MG CAP PO SCH ×2 (08:25→20:12)
[2018-12-14] MEDS: LISINOPRIL 20 MG TAB PO SCH (08:25)
[2018-12-14] MEDS: amLODIPine 10 MG TAB PO SCH (08:26)
[2018-12-14] MEDS: OLANZapine 10 MG TAB PO SCH ×4 (08:26→20:12)
[2018-12-14] MEDS: metFORMIN (GLUCOPHAGE) 1000 MG TABLET PO SCH ×2 (08:26→17:10)
[2018-12-14] MEDS: HumaLOG INSULIN (NovoLOG) PER UNIT SC SCH ×4 (08:26→20:15)
[2018-12-14] MEDS: OXcarbazepine 300 MG TAB PO SCH ×2 (08:27→20:12)
[2018-12-14] MEDS: MOM 30ML SUSPENSION UDC PO PRN (09:32)
[2018-12-14] MEDS ORDERED: LORazepam 1 MG TAB PO ONE (09:45)
[2018-12-14] MEDS ORDERED: OLANZapine 10 MG TAB PO ONE (09:45)
--- NOTE | 2018-12-14 10:56 | MHIPNPDOC ---
[facility] Progress Note Progress Note DATE OF SERVICE: 12/14/18 HISTORY: Per Dr. Oakley "The patient, a 48-year-old man, with a history of schizophrenia versus bipolar, presents to [facility]. Initially upon presentation, it was noted that he had been brought in by a pickup order by his outpatient psychiatrist, Dr. Marina, at the [facility] He was noted to be acting very bizarre and was not at his baseline and was not taking his medications per his psychiatrist. He was noted to be in a manic state with rapid pressured and confused thoughts. He made very little sense in the emergency room and he was recently discharged from [facility] 3 weeks ago. When the patient was attempted to be met with, he continued to attempt to get this provider to write down various things. When this was declined, the patient generally considered to perseverate on multiple different complaints and paranoid thoughts, unable to engage in any interview." Below the majority of psychosocial information is extracted from the chart due to psychosis. VITAL SIGNS: See below. NEW TEST RESULTS: See below. CURRENT MEDICATIONS: See below. MENTAL STATUS EXAMINATION: General: clean, dressed in his own clothes Speech: mildly less pressured Thought processes: mildly improving Tangentiality, grandiose thought MSK: Psychomotor agitation with pacing Thought content: associate, grandiose, less hyper-episcopal Abstract reasoning, and computation: [place] Description of associations: Loose, associative Description of abnormal or psychotic thoughts: Denies any suicidal or homicidal thoughts. Denies AH today and doesn't appear to be responding to them although remains manic and euphoric Judgment: Poor Insight: Poor Orientation: Alert and orientated 3 Cognition: Grossly normal Recent and remote memory: Impaired by winsome Attention span and concentration: Impaired Fund of knowledge: currently impaired by winsome Mood: "I'm better" Affect: Labile, manic, euphoric, laughing to his own statement DIAGNOSES: Bipolar disorder, type 1, most recent episode manic. ASSESSMENT:Per treatment team, pt urinated on himself while in the lounge then would not let staff come in the help him and clean up the room. Per staff continues to be very winsome with pressured speech on the unit. Pt seen and states he thinks he's doing better although he still appears quite manic with tangential, grandiose thoughts and rapid, pressured speech that is only mildly improvement with current meds. Continues to wake up at night frequently due to urinating on himself. Asked pt how much water he was drinking during the day an d hesitant to state how much exactly due to him finally admitting to drinking a lot more that he needed. Pt advised to limit his water intake during the day to only a few cups a day to prevent him from urinating on himself during the day and night. Admits it's embarrassing for him when he does it and doesn't like to accept help with cleaning himself up due to being embarrassed. He is compliant on his medications. He randomly stated he would like to be better by [facility] or [place] and that he would like it if I had a [employer]cycle under my tree for me to ride and go "vrume.. vrume" on the road fast. He is euphoric and states his mood is "Great!" Will add ativan 1mg tid and change zyprexa to 10mg qam and noon and 20mg qhs to improve manic symptoms as trileptal becomes more therapeutic. Will check level on Wednesday. He is attending groups and finding them helpful. He denies SI/HI, VH. Pt feels safe here. MANAGEMENT PLAN: add ativan 1mg tid and change zyprexa to 10mg qam and noon and 20mg qhs trileptal 600mg bid zyprexa to 10mg qam and noon and 20mg qhs ativan 1mg q6hr prn anxiety/agitation zyprexa zydis 5mg q6hr prn anxiety/agitation seroquel 200mg qhs ativan 1mg tid TIME SPENT: 30 minutes. Vital Signs Vital Signs Date Time Temp Pulse Resp B/P (MAP) Pulse Ox O2 Delivery O2 Flow Rate FiO2 12/14/18 08:26 88 141/67 12/14/18 06:20 97.1 20 12/09/18 17:05 96 Room Air Laboratory Data 24H Labs Laboratory Tests 2 12/13/18 12:11: Bedside Glucose (Misc Panel) 81 12/13/18 17:20: Bedside Glucose (Misc Panel) 111H 12/14/18 05:32: Bedside Glucose (Misc Panel) 115H Current Medications Current Medications Medications (Trade) Dose Ordered Sig/Kailey Route PRN Reason Start Time Stop Time Status Last Admin Dose Admin Acetaminophen (Tylenol Tab) 650 mg Q6HP PRN PO HEADACHE or DISCOMFORT 12/09/18 22:00 12/13/18 09:01 Al Hydrox/Mg Hydrox/Simethicone (Mylanta) 30 ml Q4HP PRN PO HEARTBURN/INDIGESTION 12/09/18 22:00 Amlodipine Besylate (Norvasc) 10 mg DAILY PO 12/10/18 09:00 12/14/18 08:26 Atorvastatin Calcium (Lipitor) 20 mg QHS PO 12/10/18 21:00 12/13/18 20:37 Cetylpyridinium Chloride (Cepacol) 1 pranav Q2HP PRN PO COUGH 12/10/18 10:30 12/14/18 05:35 Cetylpyridinium Chloride (Cepacol) 2 pranav Q2HP PRN PO SORE THROAT 12/10/18 09:45 12/10/18 10:23 DC Dextrose (Dextrose 50%) 25 ml ASDIRECTED PRN IV SEE LABEL COMMENTS 12/10/18 09:45 Divalproex Sodium (Depakote Er) 500 mg BID PO 12/10/18 21:00 12/12/18 10:54 DC 12/12/18 09:25 Docusate Sodium (Colace) 100 mg BID PO 12/10/18 09:00 12/14/18 08:25 Glucagon (Glucagon) 1 mg ASDIRECTED PRN SC SEE LABEL COMMENTS 12/10/18 09:45 Glucose (Glucose) 16 GM ASDIRECTED PRN PO SEE LABEL COMMENTS 12/10/18 09:45 Haloperidol (Haldol) 5 mg BID PO 12/10/18 21:00 12/12/18 10:54 DC 12/11/18 21:26 Haloperidol (Haldol) 5 mg Q4HP PRN PO ANXIETY/AGITATION 12/10/18 12:00 12/12/18 10:54 DC 12/12/18 02:46 Home Med (Med Rec Complete!) ASDIRECTED XX 12/09/18 23:30 12/09/18 23:32 DC Insulin Human Lispro (HumaLOG INSULIN) SEE PROTOCOL TABLE AC SC 12/10/18 12:00 12/14/18 08:26 Insulin Human Lispro (HumaLOG INSULIN) SEE PROTOCOL TABLE QHS SC 12/10/18 21:00 Levothyroxine Sodium (Synthroid) 100 mcg DAILY@0600 PO 12/11/18 06:00 12/14/18 05:33 Lisinopril (Prinivil) 20 mg DAILY PO 12/10/18 09:00 12/14/18 08:25 Lorazepam (Ativan) 1 mg STAT STAT PO 12/09/18 20:50 12/09/18 20:51 DC 12/09/18 21:33 Lorazepam (Ativan) 1 mg TID PO 12/14/18 16:00 Lorazepam (Ativan) 2 mg Q4HP PRN PO ANXIETY/AGITATION 12/10/18 12:00 12/13/18 09:00 Magnesium Hydroxide (Milk Of Magnesia) 30 ml DAILYPRN PRN PO CONSTIPATION 12/09/18 22:00 12/14/18 09:32 Metformin HCl (Glucophage) 1,000 mg BIDWM PO 12/10/18 08:00 12/14/18 08:26 Olanzapine (ZyPREXA ZYDIS) 5 mg Q6HP PRN PO ANXIETY/AGITATION 12/12/18 10:45 12/14/18 04:05 Olanzapine (ZyPREXA) 5 mg BID PO 12/12/18 21:00 12/13/18 09:07 DC 12/13/18 08:40 Olanzapine (ZyPREXA) 10 mg BID PO 12/13/18 21:00 12/14/18 09:31 DC 12/14/18 08:26 Olanzapine (ZyPREXA) 10 mg QHS PO 12/14/18 21:00 Olanzapine (ZyPREXA) 10 mg TID PO 12/14/18 16:00 Oxcarbazepine (Trileptal) 600 mg BID PO 12/12/18 21:00 12/14/18 08:27 Quetiapine Fumarate (SEROquel) 200 mg QHS PO 12/12/18 21:00 12/13/18 20:37 Trazodone HCl (Desyrel) 50 mg QHSP PRN PO INSOMNIA 12/09/18 22:00 12/12/18 21:43 Allergies Coded Allergies: Penicillins (Verified Allergy, Intermediate, rash, 12/09/18) CLAIR STEIN DO Dec 14, 2018 10:22
[2018-12-14] MEDS: LORazepam 1 MG TAB PO SCH ×2 (15:16→20:12)
[2018-12-14 19:15] VITALS: BP 137/85
[2018-12-14] MEDS: QUEtiapine FUMARATE 200 MG TAB PO SCH (20:12)
[2018-12-14] MEDS: ATORVASTATIN 20 MG TAB PO SCH (20:12)
[2018-12-15 00:06] LABS: BODY FLUID CULTURE Not Indicated (.); LEGIONELLA ANTIGEN URINE Negative (Negative); ORGANISM ID Not indicated. (.); SPECIMEN SOURCE Urine (.); URINE STREP PNEUMONIAE ANTIGEN Negative (Negative)
[2018-12-15] MEDS ORDERED: QUEtiapine FUMARATE 50 MG TAB PO ONE (01:00)
[2018-12-15] MEDS: ACETAMINOPHEN TAB 650MG DOSE (2X325MG) PO PRN (02:29)
[2018-12-15] MEDS: CEPACOL LOZENGE PO PRN ×6 (02:58→20:26)
[2018-12-15] MEDS: LEVOTHYROXINE 100MCG TABLET (0.1MG) PO SCH (06:04)
--- NOTE | 2018-12-15 06:29 | ECGEPIP ---
[facility] Test Date: 2018-12-15 Pat Name: RADHA MAY Department: Room: [place] [address] Gender: Male Microfilm Mounter: Claudia RIBEIRO : [id number] Requested By: MIKA URBINA Order Number: [id number] Reading MD: Ruba Hills Measurements Intervals [place] Rate: 85 P: 52 AK: 165 QRS: 39 QRSD: 114 T: 32 QT: 405 QTc: 483 Interpretive Statements SINUS RHYTHM RATE SLOWER CAN NOT ADEQUATELY ASSESS AVF DUE TO ARTIFACT C/W12/10/18 Electronically Signed on 12-15-2018 6:29:19 EDT by Ruba Hills
[2018-12-15 06:49] VITALS: BP 153/73
[2018-12-15] MEDS: HumaLOG INSULIN (NovoLOG) PER UNIT SC SCH ×4 (07:03→21:00)
--- NOTE | 2018-12-15 09:01 | MHIPNPDOC ---
[facility] Progress Note Progress Note DATE OF SERVICE: 12/15/18 HISTORY: Per Dr. Oakley "The patient, a 48-year-old man, with a history of schizophrenia versus bipolar, presents to [facility]. Initially upon presentation, it was noted that he had been brought in by a pickup order by his outpatient psychiatrist, Dr. Marina, at the [facility]. He was noted to be acting very bizarre and was not at his baseline and was not taking his medications per his psychiatrist. He was noted to be in a manic state with rapid pressured and confused thoughts. He made very little sense in the emergency room and he was recently discharged from [facility] 3 weeks ago. When the patient was attempted to be met with, he continued to attempt to get this provider to write down various things. When this was declined, the patient generally considered to perseverate on multiple different complaints and paranoid thoughts, unable to engage in any interview." Below the majority of psychosocial information is extracted from the chart due to psychosis. VITAL SIGNS: See below. NEW TEST RESULTS: See below. CURRENT MEDICATIONS: See below. MENTAL STATUS EXAMINATION: General: clean, dressed in his own clothes Speech: mildly less pressured Thought processes: mildly improving Tangentiality, grandiose thought MSK: Psychomotor agitation with pacing Thought content: associate, grandiose, less hyper-oriental orthodox Abstract reasoning, and computation: [place] Description of associations: Loose, associative Description of abnormal or psychotic thoughts: Denies any suicidal or homicidal thoughts. Denies AH today and doesn't appear to be responding to them although remains manic and euphoric Judgment: Poor Insight: Poor Orientation: Alert and orientated 3 Cognition: Grossly normal Recent and remote memory: Impaired by winsome Attention span and concentration: Impaired Fund of knowledge: currently impaired by winsome Mood: "I'm better" Affect: Labile, manic, euphoric, laughing to his own statement DIAGNOSES: Bipolar disorder, type 1, most recent episode manic. ASSESSMENT:Pt seen and states he woke up multiple times after waking up at 3am having slept he believes for 3 hours. State he woke up to use the bathroom and made it to the bathroom but pied on the floor on accident. Advised pt that we are trying to get him to sleep 6-8hrs/night and that if he does wake up to go right back to bed after he gets up to use the bathroom. States he was making his bed each time he got up. States he feels wide awake right now and is still considerably manic which is improving and he notes he is starting to slow down which feels good. His speech is less rapid today and he's able to stop talking very briefly and listen. He proceeded then to ask if I can put a [employer] under his tree for [place], stand and show me he can move each toot to the outer side like that was an impossible thing to do, and talk about other random things. He's waking around with a note book he has been randomly writing in. His winsome seems to be slowly improving the jose a increase dosing of zyprexa and now scheduled dosing of ativan that I will titrate down when trileptal level therapeutic pending pt's symptoms. He is attending groups and finding them helpful. He denies SI/HI, VH. Pt feels safe here. MANAGEMENT PLAN: continue current plan. trileptal 600mg bid zyprexa to 10mg qam and noon and 20mg qhs ativan 1mg q6hr prn anxiety/agitation zyprexa zydis 5mg q6hr prn anxiety/agitation seroquel 200mg qhs ativan 1mg tid TIME SPENT: 30 minutes. Vital Signs Vital Signs Date Time Temp Pulse Resp B/P (MAP) Pulse Ox O2 Delivery O2 Flow Rate FiO2 12/15/18 06:49 97.7 87 12 153/73 (99) 12/09/18 17:05 96 Room Air Laboratory Data 24H Labs Laboratory Tests 2 12/14/18 12:00: Bedside Glucose (Misc Panel) 117H 12/14/18 17:07: Bedside Glucose (Misc Panel) 203H 12/14/18 20:03: Bedside Glucose (Misc Panel) 82 12/15/18 06:00: Bedside Glucose (Misc Panel) 114H Current Medications Current Medications Medications (Trade) Dose Ordered Sig/Kailey Route PRN Reason Start Time Stop Time Status Last Admin Dose Admin Acetaminophen (Tylenol Tab) 650 mg Q6HP PRN PO HEADACHE or DISCOMFORT 12/09/18 22:00 12/15/18 02:29 Al Hydrox/Mg Hydrox/Simethicone (Mylanta) 30 ml Q4HP PRN PO HEARTBURN/INDIGESTION 12/09/18 22:00 Amlodipine Besylate (Norvasc) 10 mg DAILY PO 12/10/18 09:00 12/14/18 08:26 Atorvastatin Calcium (Lipitor) 20 mg QHS PO 12/10/18 21:00 12/14/18 20:12 Cetylpyridinium Chloride (Cepacol) 1 pranav Q2HP PRN PO COUGH 12/10/18 10:30 12/15/18 02:58 Cetylpyridinium Chloride (Cepacol) 2 pranav Q2HP PRN PO SORE THROAT 12/10/18 09:45 12/10/18 10:23 DC Dextrose (Dextrose 50%) 25 ml ASDIRECTED PRN IV SEE LABEL COMMENTS 12/10/18 09:45 Divalproex Sodium (Depakote Er) 500 mg BID PO 12/10/18 21:00 12/12/18 10:54 DC 12/12/18 09:25 Docusate Sodium (Colace) 100 mg BID PO 12/10/18 09:00 12/14/18 20:12 Glucagon (Glucagon) 1 mg ASDIRECTED PRN SC SEE LABEL COMMENTS 12/10/18 09:45 Glucose (Glucose) 16 GM ASDIRECTED PRN PO SEE LABEL COMMENTS 12/10/18 09:45 Haloperidol (Haldol) 5 mg BID PO 12/10/18 21:00 12/12/18 10:54 DC 12/11/18 21:26 Haloperidol (Haldol) 5 mg Q4HP PRN PO ANXIETY/AGITATION 12/10/18 12:00 12/12/18 10:54 DC 12/12/18 02:46 Home Med (Med Rec Complete!) ASDIRECTED XX 12/09/18 23:30 12/09/18 23:32 DC Insulin Human Lispro (HumaLOG INSULIN) SEE PROTOCOL TABLE AC SC 12/10/18 12:00 12/15/18 07:03 Insulin Human Lispro (HumaLOG INSULIN) SEE PROTOCOL TABLE QHS SC 12/10/18 21:00 Levothyroxine Sodium (Synthroid) 100 mcg DAILY@0600 PO 12/11/18 06:00 12/15/18 06:04 Lisinopril (Prinivil) 20 mg DAILY PO 12/10/18 09:00 12/14/18 08:25 Lorazepam (Ativan) 1 mg STAT STAT PO 12/09/18 20:50 12/09/18 20:51 DC 12/09/18 21:33 Lorazepam (Ativan) 1 mg TID PO 12/14/18 16:00 12/14/18 20:12 Lorazepam (Ativan) 2 mg Q4HP PRN PO ANXIETY/AGITATION 12/10/18 12:00 12/13/18 09:00 Magnesium Hydroxide (Milk Of Magnesia) 30 ml DAILYPRN PRN PO CONSTIPATION 12/09/18 22:00 12/14/18 09:32 Metformin HCl (Glucophage) 1,000 mg BIDWM PO 12/10/18 08:00 12/14/18 17:10 Olanzapine (ZyPREXA ZYDIS) 5 mg Q6HP PRN PO ANXIETY/AGITATION 12/12/18 10:45 12/14/18 04:05 Olanzapine (ZyPREXA) 5 mg BID PO 12/12/18 21:00 12/13/18 09:07 DC 12/13/18 08:40 Olanzapine (ZyPREXA) 10 mg BID PO 12/13/18 21:00 12/14/18 09:31 DC 12/14/18 08:26 Olanzapine (ZyPREXA) 10 mg QHS PO 12/14/18 21:00 12/14/18 20:12 Olanzapine (ZyPREXA) 10 mg TID PO 12/14/18 16:00 12/14/18 20:11 Oxcarbazepine (Trileptal) 600 mg BID PO 12/12/18 21:00 12/14/18 20:12 Quetiapine Fumarate (SEROquel) 200 mg QHS PO 12/12/18 21:00 12/14/18 20:12 Trazodone HCl (Desyrel) 50 mg QHSP PRN PO INSOMNIA 12/09/18 22:00 12/12/18 21:43 Allergies Coded Allergies: Penicillins (Verified Allergy, Intermediate, rash, 12/09/18) CLAIR STEIN DO Dec 15, 2018 9:00 am
[2018-12-15] MEDS: DOCUSATE SODIUM 100 MG CAP PO SCH ×2 (09:13→20:26)
[2018-12-15] MEDS: OXcarbazepine 300 MG TAB PO SCH ×2 (09:14→20:26)
[2018-12-15] MEDS: OLANZapine 10 MG TAB PO SCH ×4 (09:14→20:26)
[2018-12-15] MEDS: LISINOPRIL 20 MG TAB PO SCH (09:15)
[2018-12-15] MEDS: metFORMIN (GLUCOPHAGE) 1000 MG TABLET PO SCH ×2 (09:15→17:10)
[2018-12-15] MEDS: amLODIPine 10 MG TAB PO SCH (09:16)
[2018-12-15] MEDS: LORazepam 1 MG TAB PO SCH ×3 (09:16→20:26)
[2018-12-15] MEDS: LORazepam 2 MG TAB PO PRN (14:35)
[2018-12-15 18:00] VITALS: BP 139/80
[2018-12-15] MEDS: QUEtiapine FUMARATE 200 MG TAB PO SCH (20:25)
[2018-12-15] MEDS: MOM 30ML SUSPENSION UDC PO PRN (20:26)
[2018-12-15] MEDS: ATORVASTATIN 20 MG TAB PO SCH (20:26)
[2018-12-16] MEDS: CEPACOL LOZENGE PO PRN ×6 (03:12→20:28)
[2018-12-16] MEDS: LORazepam 2 MG TAB PO PRN (03:12)
[2018-12-16] MEDS: OLANZapine ORAL DISINTEGRATING TAB 5MG PO PRN ×2 (05:07→11:13)
[2018-12-16] MEDS: LEVOTHYROXINE 100MCG TABLET (0.1MG) PO SCH (05:07)
[2018-12-16] MEDS: ACETAMINOPHEN TAB 650MG DOSE (2X325MG) PO PRN (05:36)
[2018-12-16] MEDS: HumaLOG INSULIN (NovoLOG) PER UNIT SC SCH ×4 (06:36→20:26)
[2018-12-16 06:52] VITALS: BP 139/93
[2018-12-16] MEDS: DOCUSATE SODIUM 100 MG CAP PO SCH ×2 (09:28→20:25)
[2018-12-16] MEDS: LISINOPRIL 20 MG TAB PO SCH (09:28)
[2018-12-16] MEDS: OLANZapine 10 MG TAB PO SCH ×4 (09:28→20:26)
[2018-12-16] MEDS: OXcarbazepine 300 MG TAB PO SCH ×2 (09:29→20:25)
[2018-12-16] MEDS: metFORMIN (GLUCOPHAGE) 1000 MG TABLET PO SCH ×2 (09:29→18:03)
[2018-12-16] MEDS: LORazepam 1 MG TAB PO SCH ×3 (09:29→20:25)
[2018-12-16] MEDS: amLODIPine 10 MG TAB PO SCH (09:29)
--- NOTE | 2018-12-16 10:26 | MHIPNPDOC ---
[facility] Progress Note Progress Note DATE OF SERVICE: 12/16/18 HISTORY: Per Dr. Oakley "The patient, a 48-year-old man, with a history of schizophrenia versus bipolar, presents to [facility]. Initially upon presentation, it was noted that he had been brought in by a pickup order by his outpatient psychiatrist, Dr. Marina, at the [facility]. He was noted to be acting very bizarre and was not at his baseline and was not taking his medications per his psychiatrist. He was noted to be in a manic state with rapid pressured and confused thoughts. He made very little sense in the emergency room and he was recently discharged from [facility] 3 weeks ago. When the patient was attempted to be met with, he continued to attempt to get this provider to write down various things. When this was declined, the patient generally considered to perseverate on multiple different complaints and paranoid thoughts, unable to engage in any interview." Below the majority of psychosocial information is extracted from the chart due to psychosis. VITAL SIGNS: See below. NEW TEST RESULTS: See below. CURRENT MEDICATIONS: See below. MENTAL STATUS EXAMINATION: General: clean, dressed in his own clothes Speech: mildly less pressured and rapid Thought processes: mildly improving Tangentiality, grandiose thought MSK: Psychomotor agitation with pacing Thought content: associate, grandiose, less hyper-pentecostalism Abstract reasoning, and computation: [place] Description of associations: Loose, associative Description of abnormal or psychotic thoughts: Denies any suicidal or homicidal thoughts. Denies AH today and doesn't appear to be responding to them although remains manic and euphoric Judgment: Poor Insight: Poor Orientation: Alert and orientated 3 Cognition: Grossly normal Recent and remote memory: Impaired by winsome Attention span and concentration: Impaired Fund of knowledge: currently impaired by winsome Mood: "I'm better" Affect: Labile, manic, euphoric, laughing to his own statement DIAGNOSES: Bipolar disorder, type 1, most recent episode manic. ASSESSMENT:Pt seen and states he woke up 4 times last night to urinate and made it to the toilette twice. Per treatment team, believe pt may be possibly sundowning at night as he become agitated and confused. Pt per staff slept all day yesterday which most like contibuted to him no being able to sleep at night. Will work with staff to make sure he stays up thru out the day today to aid him to sleep thru the night. Advised pt again that we are trying to get him to sleep 6-8hrs/night and that if he does wake up to go right back to bed after he gets up to use the bathroom. States he feels less manic today and seems to be talking less as is able to sit in office quietly at times. Continues to be considerably manic on the unit and in the lounge had at least 15-20 cups surrounding him on the table that he was sitting at which attempting to work on a puzzle. He's still engaging in bizarre behavior. His speech is less rapid today. He continues to ask if I can put a [employer]aca under his tree for [place], stand and show me he can move each toot to the outer side like that was an impossible thing to do, and talk about other random things. He's waking around with a note book he has been randomly writing in. His winsome seems to be slowly improving the the increase dosing of zyprexa and will d/c ativan tid which can cause and worsen sundowning at night and start haldol 10mg tid for confusion/delirium prevention. He is attending groups and finding them helpful. He denies SI/HI, VH. Pt feels safe here. MANAGEMENT PLAN: continue current plan. D/c ativan tid and start haldol 10mg tid for possible sundowning that ativan can increase likelihood of occurring. trileptal 600mg bid zyprexa to 10mg qam and noon and 20mg qhs ativan 1mg q6hr prn anxiety/agitation zyprexa zydis 5mg q6hr prn anxiety/agitation seroquel 200mg qhs haldol 10mg tid TIME SPENT: 30 minutes. Vital Signs Vital Signs Date Time Temp Pulse Resp B/P (MAP) Pulse Ox O2 Delivery O2 Flow Rate FiO2 12/16/18 09:28 139/93 12/16/18 06:52 97.8 62 14 Laboratory Data 24H Labs Laboratory Tests 2 12/15/18 11:56: Bedside Glucose (Misc Panel) 130H 12/15/18 17:13: Bedside Glucose (Misc Panel) 161H 12/15/18 21:14: Bedside Glucose (Misc Panel) 78 12/16/18 02:13: Bedside Glucose (Misc Panel) 141H 12/16/18 05:38: Bedside Glucose (Misc Panel) 115H Current Medications Current Medications Medications (Trade) Dose Ordered Sig/Kailey Route PRN Reason Start Time Stop Time Status Last Admin Dose Admin Acetaminophen (Tylenol Tab) 650 mg Q6HP PRN PO HEADACHE or DISCOMFORT 12/09/18 22:00 12/16/18 05:36 Al Hydrox/Mg Hydrox/Simethicone (Mylanta) 30 ml Q4HP PRN PO HEARTBURN/INDIGESTION 12/09/18 22:00 Amlodipine Besylate (Norvasc) 10 mg DAILY PO 12/10/18 09:00 12/16/18 09:29 Atorvastatin Calcium (Lipitor) 20 mg QHS PO 12/10/18 21:00 12/15/18 20:26 Cetylpyridinium Chloride (Cepacol) 1 pranav Q2HP PRN PO COUGH 12/10/18 10:30 12/16/18 09:29 Cetylpyridinium Chloride (Cepacol) 2 pranav Q2HP PRN PO SORE THROAT 12/10/18 09:45 12/10/18 10:23 DC Dextrose (Dextrose 50%) 25 ml ASDIRECTED PRN IV SEE LABEL COMMENTS 12/10/18 09:45 Divalproex Sodium (Depakote Er) 500 mg BID PO 12/10/18 21:00 12/12/18 10:54 DC 12/12/18 09:25 Docusate Sodium (Colace) 100 mg BID PO 12/10/18 09:00 12/16/18 09:28 Glucagon (Glucagon) 1 mg ASDIRECTED PRN SC SEE LABEL COMMENTS 12/10/18 09:45 Glucose (Glucose) 16 GM ASDIRECTED PRN PO SEE LABEL COMMENTS 12/10/18 09:45 Haloperidol (Haldol) 5 mg BID PO 12/10/18 21:00 12/12/18 10:54 DC 12/11/18 21:26 Haloperidol (Haldol) 5 mg Q4HP PRN PO ANXIETY/AGITATION 12/10/18 12:00 12/12/18 10:54 DC 12/12/18 02:46 Home Med (Med Rec Complete!) ASDIRECTED XX 12/09/18 23:30 12/09/18 23:32 DC Insulin Human Lispro (HumaLOG INSULIN) SEE PROTOCOL TABLE AC SC 12/10/18 12:00 12/16/18 06:36 Insulin Human Lispro (HumaLOG INSULIN) SEE PROTOCOL TABLE QHS SC 12/10/18 21:00 Levothyroxine Sodium (Synthroid) 100 mcg DAILY@0600 PO 12/11/18 06:00 12/16/18 05:07 Lisinopril (Prinivil) 20 mg DAILY PO 12/10/18 09:00 12/16/18 09:28 Lorazepam (Ativan) 1 mg STAT STAT PO 12/09/18 20:50 12/09/18 20:51 DC 12/09/18 21:33 Lorazepam (Ativan) 1 mg TID PO 12/14/18 16:00 12/16/18 09:29 Lorazepam (Ativan) 2 mg Q4HP PRN PO ANXIETY/AGITATION 12/10/18 12:00 12/16/18 03:12 Magnesium Hydroxide (Milk Of Magnesia) 30 ml DAILYPRN PRN PO CONSTIPATION 12/09/18 22:00 12/15/18 20:26 Metformin HCl (Glucophage) 1,000 mg BIDWM PO 12/10/18 08:00 12/16/18 09:29 Olanzapine (ZyPREXA ZYDIS) 5 mg Q6HP PRN PO ANXIETY/AGITATION 12/12/18 10:45 12/16/18 05:07 Olanzapine (ZyPREXA) 5 mg BID PO 12/12/18 21:00 12/13/18 09:07 DC 12/13/18 08:40 Olanzapine (ZyPREXA) 10 mg BID PO 12/13/18 21:00 12/14/18 09:31 DC 12/14/18 08:26 Olanzapine (ZyPREXA) 10 mg QHS PO 12/14/18 21:00 12/15/18 20:26 Olanzapine (ZyPREXA) 10 mg TID PO 12/14/18 16:00 12/16/18 09:28 Oxcarbazepine (Trileptal) 600 mg BID PO 12/12/18 21:00 12/16/18 09:29 Quetiapine Fumarate (SEROquel) 200 mg QHS PO 12/12/18 21:00 12/15/18 20:25 Trazodone HCl (Desyrel) 50 mg QHSP PRN PO INSOMNIA 12/09/18 22:00 12/12/18 21:43 Allergies Coded Allergies: Penicillins (Verified Allergy, Intermediate, rash, 12/09/18) CLAIR STEIN DO Dec 16, 2018 10:26 am
[2018-12-16] MEDS: MOM 30ML SUSPENSION UDC PO PRN (11:13)
[2018-12-16 18:00] VITALS: BP 124/80
[2018-12-16] MEDS: QUEtiapine FUMARATE 200 MG TAB PO SCH (20:25)
[2018-12-16] MEDS: ATORVASTATIN 20 MG TAB PO SCH (20:25)
[2018-12-17] MEDS: LEVOTHYROXINE 100MCG TABLET (0.1MG) PO SCH (05:09)
[2018-12-17] MEDS: ACETAMINOPHEN TAB 650MG DOSE (2X325MG) PO PRN (05:09)
[2018-12-17] MEDS: CEPACOL LOZENGE PO PRN ×6 (05:09→22:24)
[2018-12-17] MEDS: HumaLOG INSULIN (NovoLOG) PER UNIT SC SCH ×4 (06:33→19:34)
[2018-12-17 07:24] VITALS: BP 143/92
[2018-12-17] MEDS: LORazepam 1 MG TAB PO SCH ×3 (09:01→21:04)
[2018-12-17] MEDS: OXcarbazepine 300 MG TAB PO SCH ×2 (09:01→21:04)
[2018-12-17] MEDS: amLODIPine 10 MG TAB PO SCH (09:01)
[2018-12-17] MEDS: LISINOPRIL 20 MG TAB PO SCH (09:01)
[2018-12-17] MEDS: metFORMIN (GLUCOPHAGE) 1000 MG TABLET PO SCH ×2 (09:01→17:19)
[2018-12-17] MEDS: OLANZapine 10 MG TAB PO SCH ×4 (09:01→21:05)
[2018-12-17] MEDS: DOCUSATE SODIUM 100 MG CAP PO SCH ×2 (09:01→21:04)
[2018-12-17 18:02] VITALS: BP 155/82
[2018-12-17] MEDS: QUEtiapine FUMARATE 200 MG TAB PO SCH (21:04)
[2018-12-17] MEDS: ATORVASTATIN 20 MG TAB PO SCH (21:04)
[2018-12-17] MEDS: MOM 30ML SUSPENSION UDC PO PRN (22:25)
[2018-12-18] MEDS: CEPACOL LOZENGE PO PRN ×4 (00:41→14:39)
[2018-12-18] MEDS: traZODone 50 MG TAB PO PRN ×2 (00:42→20:51)
[2018-12-18] MEDS: OLANZapine ORAL DISINTEGRATING TAB 5MG PO PRN ×2 (02:25→12:29)
[2018-12-18] MEDS: LORazepam 2 MG TAB PO PRN (05:44)
[2018-12-18] MEDS: LEVOTHYROXINE 100MCG TABLET (0.1MG) PO SCH (05:44)
[2018-12-18 06:21] VITALS: BP 121/79
[2018-12-18] MEDS: HumaLOG INSULIN (NovoLOG) PER UNIT SC SCH ×4 (06:49→20:53)
[2018-12-18] MEDS: LORazepam 1 MG TAB PO SCH ×3 (08:47→20:51)
[2018-12-18] MEDS: DOCUSATE SODIUM 100 MG CAP PO SCH ×2 (08:47→20:51)
[2018-12-18] MEDS: LISINOPRIL 20 MG TAB PO SCH (08:47)
[2018-12-18] MEDS: amLODIPine 10 MG TAB PO SCH (08:48)
[2018-12-18] MEDS: OXcarbazepine 300 MG TAB PO SCH ×2 (08:48→20:52)
[2018-12-18] MEDS: metFORMIN (GLUCOPHAGE) 1000 MG TABLET PO SCH ×2 (08:48→17:57)
[2018-12-18] MEDS: OLANZapine 10 MG TAB PO SCH ×4 (08:48→20:53)
[2018-12-18] MEDS: MOM 30ML SUSPENSION UDC PO PRN (09:23)
[2018-12-18 17:48] VITALS: BP 143/85
[2018-12-18] MEDS: ATORVASTATIN 20 MG TAB PO SCH (20:51)
[2018-12-18] MEDS: QUEtiapine FUMARATE 200 MG TAB PO SCH (20:51)
[2018-12-19] MEDS: CEPACOL LOZENGE PO PRN ×4 (00:48→15:15)
[2018-12-19] MEDS: ACETAMINOPHEN TAB 650MG DOSE (2X325MG) PO PRN (00:49)
[2018-12-19] MEDS: HumaLOG INSULIN (NovoLOG) PER UNIT SC SCH ×4 (05:59→20:34)
[2018-12-19] MEDS: LEVOTHYROXINE 100MCG TABLET (0.1MG) PO SCH (05:59)
[2018-12-19 06:51] VITALS: BP 125/88
[2018-12-19] MEDS: metFORMIN (GLUCOPHAGE) 1000 MG TABLET PO SCH ×2 (07:33→17:12)
[2018-12-19] MEDS: OXcarbazepine 300 MG TAB PO SCH ×2 (08:12→20:30)
[2018-12-19] MEDS: OLANZapine 10 MG TAB PO SCH ×4 (08:13→20:31)
[2018-12-19] MEDS: LORazepam 1 MG TAB PO SCH ×3 (08:13→20:30)
[2018-12-19] MEDS: DOCUSATE SODIUM 100 MG CAP PO SCH ×2 (08:13→20:30)
[2018-12-19] MEDS: LISINOPRIL 20 MG TAB PO SCH (08:14)
[2018-12-19] MEDS: amLODIPine 10 MG TAB PO SCH (08:14)
[2018-12-19 17:06] VITALS: BP 138/82
[2018-12-19] MEDS: QUEtiapine FUMARATE 200 MG TAB PO SCH (20:30)
[2018-12-19] MEDS: ATORVASTATIN 20 MG TAB PO SCH (20:30)
[2018-12-20] MEDS: traZODone 50 MG TAB PO PRN (01:10)
[2018-12-20] MEDS: CEPACOL LOZENGE PO PRN (01:10)
[2018-12-20] MEDS: LEVOTHYROXINE 100MCG TABLET (0.1MG) PO SCH (05:50)
[2018-12-20 06:58] VITALS: BP 131/82
[2018-12-20] MEDS: HumaLOG INSULIN (NovoLOG) PER UNIT SC SCH ×4 (07:16→20:45)
[2018-12-20] MEDS: metFORMIN (GLUCOPHAGE) 1000 MG TABLET PO SCH ×2 (07:45→17:09)
[2018-12-20] MEDS: LORazepam 1 MG TAB PO SCH ×3 (09:08→20:51)
[2018-12-20] MEDS: DOCUSATE SODIUM 100 MG CAP PO SCH ×2 (09:09→20:51)
[2018-12-20] MEDS: OLANZapine 10 MG TAB PO SCH ×4 (09:09→20:51)
[2018-12-20] MEDS: OXcarbazepine 300 MG TAB PO SCH ×2 (09:09→20:50)
[2018-12-20] MEDS: LISINOPRIL 20 MG TAB PO SCH (09:10)
[2018-12-20] MEDS: amLODIPine 10 MG TAB PO SCH (09:10)
--- NOTE | 2018-12-20 11:13 | MHIPNPDOC ---
[facility] Progress Note Progress Note DATE OF SERVICE: 12/20/18 HISTORY:Per Dr. Oakley "The patient, a 48-year-old man, with a history of schizophrenia versus bipolar, presents to [facility]. Initially upon presentation, it was noted that he had been brought in by a pickup order by his outpatient psychiatrist, Dr. Marina, at the [facility]. He was noted to be acting very bizarre and was not at his baseline and was not taking his medications per his psychiatrist. He was noted to be in a manic state with rapid pressured and confused thoughts. He made very little sense in the emergency room and he was recently discharged from [facility] 3 weeks ago. When the patient was attempted to be met with, he continued to attempt to get this provider to write down various things. When this was declined, the patient generally considered to perseverate on multiple different complaints and paranoid thoughts, unable to engage in any interview." Below the majority of psychosocial information is extracted from the chart due to psychosis. VITAL SIGNS: See below. NEW TEST RESULTS: See below. CURRENT MEDICATIONS: See below. MENTAL STATUS EXAMINATION: General: clean, dressed in his own clothes Speech: mildly less pressured and rapid Thought processes: mildly improving Tangentiality, grandiose thought MSK: Psychomotor agitation with pacing Thought content: associate, grandiose, less hyper-faith Abstract reasoning, and computation: [place] Description of associations: Loose, associative Description of abnormal or psychotic thoughts: Denies any suicidal or homicidal thoughts. Denies AH today and doesn't appear to be responding to them although remains manic and euphoric Judgment: Poor Insight: Poor Orientation: Alert and orientated 3 Cognition: Grossly normal Recent and remote memory: Impaired by winsome Attention span and concentration: Impaired Fund of knowledge: currently impaired by winsome Mood: "I'm better" Affect: Labile, manic, euphoric, laughing to his own statement DIAGNOSES: Bipolar disorder, type 1, most recent episode manic. ASSESSMENT:Pt seen and states he still wakes up a few times after initial wake up at 3am and is only sleeping 3-4 hours. Pt less agitated and confused during the night with increase in zyprexa at night and haldol TID. He states he feels like he's slowing down and is able to concentrate and focus better. He is able to stay quiet and listen and ask reasonable/logical questions when seen. Continues to be engage in hypomanic symptoms on the unit per stay on the unit and engaging in bizarre behavior occasionally (less often than previous). His speech reg rate today. His winsome seems to be slowly improving will the increase dosing of zyprexa and start haldol 10mg tid for confusion/delirium prevention. He is attending groups and finding them helpful. He denies SI/HI, VH. Pt feels safe here. MANAGEMENT PLAN: continue current plan. trileptal level trileptal 600mg bid zyprexa to 10mg qam and noon and 20mg qhs ativan 1mg q6hr prn anxiety/agitation zyprexa zydis 5mg q6hr prn anxiety/agitation seroquel 200mg qhs haldol 10mg tid TIME SPENT: 30 minutes. Vital Signs Vital Signs Date Time Temp Pulse Resp B/P (MAP) Pulse Ox O2 Delivery O2 Flow Rate FiO2 12/20/18 09:10 124/83 12/20/18 09:10 94 12/20/18 06:58 97.4 14 12/16/18 10:45 Room Air Laboratory Data 24H Labs Laboratory Tests 2 12/19/18 12:10: Bedside Glucose (Misc Panel) 97 12/19/18 16:43: Bedside Glucose (Misc Panel) 127H 12/19/18 19:51: Bedside Glucose (Misc Panel) 109H 12/20/18 05:53: Bedside Glucose (Misc Panel) 102 Current Medications Current Medications Medications (Trade) Dose Ordered Sig/Kailey Route PRN Reason Start Time Stop Time Status Last Admin Dose Admin Acetaminophen (Tylenol Tab) 650 mg Q6HP PRN PO HEADACHE or DISCOMFORT 12/09/18 22:00 12/19/18 00:49 Al Hydrox/Mg Hydrox/Simethicone (Mylanta) 30 ml Q4HP PRN PO HEARTBURN/INDIGESTION 12/09/18 22:00 Amlodipine Besylate (Norvasc) 10 mg DAILY PO 12/10/18 09:00 12/20/18 09:10 Atorvastatin Calcium (Lipitor) 20 mg QHS PO 12/10/18 21:00 12/19/18 20:30 Cetylpyridinium Chloride (Cepacol) 1 pranav Q2HP PRN PO COUGH 12/10/18 10:30 12/20/18 01:10 Cetylpyridinium Chloride (Cepacol) 2 pranav Q2HP PRN PO SORE THROAT 12/10/18 09:45 12/10/18 10:23 DC Dextrose (Dextrose 50%) 25 ml ASDIRECTED PRN IV SEE LABEL COMMENTS 12/10/18 09:45 Divalproex Sodium (Depakote Er) 500 mg BID PO 12/10/18 21:00 12/12/18 10:54 DC 12/12/18 09:25 Docusate Sodium (Colace) 100 mg BID PO 12/10/18 09:00 12/20/18 09:09 Glucagon (Glucagon) 1 mg ASDIRECTED PRN SC SEE LABEL COMMENTS 12/10/18 09:45 Glucose (Glucose) 16 GM ASDIRECTED PRN PO SEE LABEL COMMENTS 12/10/18 09:45 Haloperidol (Haldol) 5 mg BID PO 12/10/18 21:00 12/12/18 10:54 DC 12/11/18 21:26 Haloperidol (Haldol) 5 mg Q4HP PRN PO ANXIETY/AGITATION 12/10/18 12:00 12/12/18 10:54 DC 12/12/18 02:46 Home Med (Med Rec Complete!) ASDIRECTED XX 12/09/18 23:30 12/09/18 23:32 DC Insulin Human Lispro (HumaLOG INSULIN) SEE PROTOCOL TABLE AC SC 12/10/18 12:00 12/20/18 07:16 Insulin Human Lispro (HumaLOG INSULIN) SEE PROTOCOL TABLE QHS SC 12/10/18 21:00 Levothyroxine Sodium (Synthroid) 100 mcg DAILY@0600 PO 12/11/18 06:00 12/20/18 05:50 Lisinopril (Prinivil) 20 mg DAILY PO 12/10/18 09:00 12/20/18 09:10 Lorazepam (Ativan) 1 mg STAT STAT PO 12/09/18 20:50 12/09/18 20:51 DC 12/09/18 21:33 Lorazepam (Ativan) 1 mg TID PO 12/14/18 16:00 12/20/18 09:08 Lorazepam (Ativan) 2 mg Q4HP PRN PO ANXIETY/AGITATION 12/10/18 12:00 12/18/18 05:44 Magnesium Hydroxide (Milk Of Magnesia) 30 ml DAILYPRN PRN PO CONSTIPATION 12/09/18 22:00 12/18/18 09:23 Metformin HCl (Glucophage) 1,000 mg BIDWM PO 12/10/18 08:00 12/20/18 07:45 Olanzapine (ZyPREXA ZYDIS) 5 mg Q6HP PRN PO ANXIETY/AGITATION 12/12/18 10:45 12/18/18 12:29 Olanzapine (ZyPREXA) 5 mg BID PO 12/12/18 21:00 12/13/18 09:07 DC 12/13/18 08:40 Olanzapine (ZyPREXA) 10 mg BID PO 12/13/18 21:00 12/14/18 09:31 DC 12/14/18 08:26 Olanzapine (ZyPREXA) 10 mg QHS PO 12/14/18 21:00 12/19/18 20:31 Olanzapine (ZyPREXA) 10 mg TID PO 12/14/18 16:00 12/20/18 09:09 Oxcarbazepine (Trileptal) 600 mg BID PO 12/12/18 21:00 12/20/18 09:09 Quetiapine Fumarate (SEROquel) 200 mg QHS PO 12/12/18 21:00 12/19/18 20:30 Trazodone HCl (Desyrel) 50 mg QHSP PRN PO INSOMNIA 12/09/18 22:00 12/20/18 01:10 Allergies Coded Allergies: Penicillins (Verified Allergy, Intermediate, rash, 12/09/18) CLAIR STEIN DO Dec 20, 2018 11:13 am
[2018-12-20 16:42] VITALS: BP 119/64
[2018-12-20] MEDS: ATORVASTATIN 20 MG TAB PO SCH (20:50)
[2018-12-20] MEDS: QUEtiapine FUMARATE 200 MG TAB PO SCH (20:51)
[2018-12-21] MEDS: CEPACOL LOZENGE PO PRN ×4 (00:25→23:58)
[2018-12-21] MEDS: traZODone 50 MG TAB PO PRN ×2 (00:34→21:22)
[2018-12-21] MEDS: LEVOTHYROXINE 100MCG TABLET (0.1MG) PO SCH (06:07)
[2018-12-21 07:07] VITALS: BP 138/85
[2018-12-21] MEDS: metFORMIN (GLUCOPHAGE) 1000 MG TABLET PO SCH ×2 (07:37→17:09)
[2018-12-21] MEDS: HumaLOG INSULIN (NovoLOG) PER UNIT SC SCH ×4 (07:37→21:00)
[2018-12-21] MEDS: OXcarbazepine 300 MG TAB PO SCH ×2 (08:33→21:20)
[2018-12-21] MEDS: OLANZapine 10 MG TAB PO SCH ×4 (08:33→21:21)
[2018-12-21] MEDS: LISINOPRIL 20 MG TAB PO SCH (08:33)
[2018-12-21] MEDS: LORazepam 1 MG TAB PO SCH ×3 (08:33→21:21)
[2018-12-21] MEDS: DOCUSATE SODIUM 100 MG CAP PO SCH ×2 (08:33→21:20)
[2018-12-21] MEDS: amLODIPine 10 MG TAB PO SCH (08:33)
[2018-12-21] MEDS ORDERED: **PENDING PPD ENTRY XX SCH (09:00)
[2018-12-21] MEDS ORDERED: TUBERCULIN PPD 5 UNITS/0.1 ML ID ONE ×2 (09:30→12:00)
--- NOTE | 2018-12-21 10:33 | MHIPNPDOC ---
[facility] Progress Note Progress Note DATE OF SERVICE: 12/21/18 HISTORY: Per Dr. Oakley "The patient, a 48-year-old man, with a history of schizophrenia versus bipolar, presents to [facility]. Initially upon presentation, it was noted that he had been brought in by a pickup order by his outpatient psychiatrist, Dr. Marina, at the [facility]. He was noted to be acting very bizarre and was not at his baseline and was not taking his medications per his psychiatrist. He was noted to be in a manic state with rapid pressured and confused thoughts. He made very little sense in the emergency room and he was recently discharged from [facility] 3 weeks ago. When the patient was attempted to be met with, he continued to attempt to get this provider to write down various things. When this was declined, the patient generally considered to perseverate on multiple different complaints and paranoid thoughts, unable to engage in any interview." Below the majority of psychosocial information is extracted from the chart due to psychosis. VITAL SIGNS: See below. NEW TEST RESULTS: trileptal level pending CURRENT MEDICATIONS: See below. MENTAL STATUS EXAMINATION: General: clean, dressed in his own clothes Speech: more reg Thought processes:improving Tangentiality, grandiose thought MSK: improved Psychomotor agitation with pacing Thought content: less associate, grandiose, less hyper-sikh Abstract reasoning, and computation: [place] Description of associations: less Loose, associative Description of abnormal or psychotic thoughts: Denies any suicidal or homicidal thoughts. Denies AH today and doesn't appear to be responding to them although remains manic and euphoric Judgment: Poor Insight: Poor Orientation: Alert and orientated 3 Cognition: Grossly normal Recent and remote memory: Impaired by winsome Attention span and concentration: Impaired Fund of knowledge: currently impaired by winsome Mood: "ok" Affect: less Labile, manic, euphoric DIAGNOSES: Bipolar disorder, type 1, most recent episode manic. ASSESSMENT:Pt seen and states only woke up 3 times last night, used the restroom once, and believes he slept roughly 6hrs. Pt continues to have less agitated and confused during the night with increase in zyprexa at night and haldol TID. He states he feels like he's slowing down more and more and is able to conc entrate and focus better. He is able to stay quiet and listen and ask reasonable/logical questions when seen. Continues to be engage in hypomanic symptoms on the unit per stay on the unit and engaging in bizarre behavior occasionally (less often than previous). His speech reg rate today. His winsome seems to be improving with increase in zyprexa at night and start of haldol, bot h of which he's tolerating well. He is attending groups and finding them helpful. He denies SI/HI, VH. Pt feels safe here. MANAGEMENT PLAN: continue current plan. trileptal level trileptal 600mg bid zyprexa to 10mg qam and noon and 20mg qhs ativan 1mg q6hr prn anxiety/agitation zyprexa zydis 5mg q6hr prn anxiety/agitation seroquel 200mg qhs haldol 10mg tid TIME SPENT: 30 minutes. Vital Signs Vital Signs Date Time Temp Pulse Resp B/P (MAP) Pulse Ox O2 Delivery O2 Flow Rate FiO2 12/21/18 08:33 138/83 12/21/18 08:33 92 12/21/18 07:07 96.9 14 12/16/18 10:45 Room Air Laboratory Data 24H Labs Laboratory Tests 2 12/20/18 11:41: Bedside Glucose (Misc Panel) 122H 12/20/18 12:54: 12/20/18 17:04: Bedside Glucose (Misc Panel) 166H 12/20/18 20:06: Bedside Glucose (Misc Panel) 129H 12/21/18 06:10: Bedside Glucose (Misc Panel) 106H Current Medications Current Medications Medications (Trade) Dose Ordered Sig/Kailey Route PRN Reason Start Time Stop Time Status Last Admin Dose Admin Acetaminophen (Tylenol Tab) 650 mg Q6HP PRN PO HEADACHE or DISCOMFORT 12/09/18 22:00 12/19/18 00:49 Al Hydrox/Mg Hydrox/Simethicone (Mylanta) 30 ml Q4HP PRN PO HEARTBURN/INDIGESTION 12/09/18 22:00 Amlodipine Besylate (Norvasc) 10 mg DAILY PO 12/10/18 09:00 12/21/18 08:33 Atorvastatin Calcium (Lipitor) 20 mg QHS PO 12/10/18 21:00 12/20/18 20:50 Cetylpyridinium Chloride (Cepacol) 1 pranav Q2HP PRN PO COUGH 12/10/18 10:30 12/21/18 00:25 Cetylpyridinium Chloride (Cepacol) 2 pranav Q2HP PRN PO SORE THROAT 12/10/18 09:45 12/10/18 10:23 DC Dextrose (Dextrose 50%) 25 ml ASDIRECTED PRN IV SEE LABEL COMMENTS 12/10/18 09:45 Divalproex Sodium (Depakote Er) 500 mg BID PO 12/10/18 21:00 12/12/18 10:54 DC 12/12/18 09:25 Docusate Sodium (Colace) 100 mg BID PO 12/10/18 09:00 12/21/18 08:33 Glucagon (Glucagon) 1 mg ASDIRECTED PRN SC SEE LABEL COMMENTS 12/10/18 09:45 Glucose (Glucose) 16 GM ASDIRECTED PRN PO SEE LABEL COMMENTS 12/10/18 09:45 Haloperidol (Haldol) 5 mg BID PO 12/10/18 21:00 12/12/18 10:54 DC 12/11/18 21:26 Haloperidol (Haldol) 5 mg Q4HP PRN PO ANXIETY/AGITATION 12/10/18 12:00 12/12/18 10:54 DC 12/12/18 02:46 Home Med (Med Rec Complete!) ASDIRECTED XX 12/09/18 23:30 12/09/18 23:32 DC Insulin Human Lispro (HumaLOG INSULIN) SEE PROTOCOL TABLE AC SC 12/10/18 12:00 12/21/18 07:37 Insulin Human Lispro (HumaLOG INSULIN) SEE PROTOCOL TABLE QHS SC 12/10/18 21:00 Levothyroxine Sodium (Synthroid) 100 mcg DAILY@0600 PO 12/11/18 06:00 12/21/18 06:07 Lisinopril (Prinivil) 20 mg DAILY PO 12/10/18 09:00 12/21/18 08:33 Lorazepam (Ativan) 1 mg STAT STAT PO 12/09/18 20:50 12/09/18 20:51 DC 12/09/18 21:33 Lorazepam (Ativan) 1 mg TID PO 12/14/18 16:00 12/21/18 08:33 Lorazepam (Ativan) 2 mg Q4HP PRN PO ANXIETY/AGITATION 12/10/18 12:00 12/18/18 05:44 Magnesium Hydroxide (Milk Of Magnesia) 30 ml DAILYPRN PRN PO CONSTIPATION 12/09/18 22:00 12/18/18 09:23 Metformin HCl (Glucophage) 1,000 mg BIDWM PO 12/10/18 08:00 12/21/18 07:37 Miscellaneous (Unresolved Clarification Entry) SEE LABEL COMMENTS DAILY XX 12/20/18 09:00 Non-Formulary Medication ( See Comment Field Below ) SEE COMMENTS SECTION 1T@10 XX 12/23/18 10:00 12/24/18 09:59 UNV Olanzapine (ZyPREXA ZYDIS) 5 mg Q6HP PRN PO ANXIETY/AGITATION 12/12/18 10:45 12/18/18 12:29 Olanzapine (ZyPREXA) 5 mg BID PO 12/12/18 21:00 12/13/18 09:07 DC 12/13/18 08:40 Olanzapine (ZyPREXA) 10 mg BID PO 12/13/18 21:00 12/14/18 09:31 DC 12/14/18 08:26 Olanzapine (ZyPREXA) 10 mg QHS PO 12/14/18 21:00 12/20/18 20:51 Olanzapine (ZyPREXA) 10 mg TID PO 12/14/18 16:00 12/21/18 08:33 Oxcarbazepine (Trileptal) 600 mg BID PO 12/12/18 21:00 12/21/18 08:33 Quetiapine Fumarate (SEROquel) 200 mg QHS PO 12/12/18 21:00 12/20/18 20:51 Trazodone HCl (Desyrel) 50 mg QHSP PRN PO INSOMNIA 12/09/18 22:00 12/21/18 00:34 Allergies Coded Allergies: Penicillins (Verified Allergy, Intermediate, rash, 12/09/18) CLAIR STEIN DO Dec 21, 2018 9:37 am
[2018-12-21 16:34] VITALS: BP 132/79
[2018-12-21] MEDS: QUEtiapine FUMARATE 200 MG TAB PO SCH (21:19)
[2018-12-21] MEDS: ATORVASTATIN 20 MG TAB PO SCH (21:20)
[2018-12-22] MEDS: LEVOTHYROXINE 100MCG TABLET (0.1MG) PO SCH (06:47)
[2018-12-22 06:48] VITALS: BP 120/67
[2018-12-22] MEDS: HumaLOG INSULIN (NovoLOG) PER UNIT SC SCH ×4 (06:50→20:29)
[2018-12-22] MEDS: amLODIPine 10 MG TAB PO SCH (08:35)
[2018-12-22] MEDS: OLANZapine 10 MG TAB PO SCH ×4 (08:35→20:36)
[2018-12-22] MEDS: metFORMIN (GLUCOPHAGE) 1000 MG TABLET PO SCH ×2 (08:35→17:11)
[2018-12-22] MEDS: LORazepam 1 MG TAB PO SCH ×3 (08:35→20:36)
[2018-12-22] MEDS: DOCUSATE SODIUM 100 MG CAP PO SCH ×2 (08:35→20:36)
[2018-12-22] MEDS: OXcarbazepine 300 MG TAB PO SCH ×2 (08:35→20:36)
[2018-12-22] MEDS: LISINOPRIL 20 MG TAB PO SCH (08:35)
[2018-12-22] MEDS: CEPACOL LOZENGE PO PRN ×2 (08:53→12:49)
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
[2018-12-22 17:31] VITALS: BP 136/86
[2018-12-22] MEDS: MOM 30ML SUSPENSION UDC PO PRN (18:16)
[2018-12-22] MEDS: ATORVASTATIN 20 MG TAB PO SCH (20:36)
[2018-12-22] MEDS: QUEtiapine FUMARATE 200 MG TAB PO SCH (20:36)
[2018-12-22] MEDS: traZODone 50 MG TAB PO PRN (21:29)
[2018-12-23] MEDS: LEVOTHYROXINE 100MCG TABLET (0.1MG) PO SCH (05:59)
[2018-12-23 06:54] VITALS: BP 132/84
[2018-12-23] MEDS: metFORMIN (GLUCOPHAGE) 1000 MG TABLET PO SCH ×2 (07:31→17:07)
[2018-12-23] MEDS: HumaLOG INSULIN (NovoLOG) PER UNIT SC SCH ×4 (07:31→20:48)
[2018-12-23] MEDS: OLANZapine 10 MG TAB PO SCH ×4 (08:17→20:48)
[2018-12-23] MEDS: LORazepam 1 MG TAB PO SCH ×3 (08:17→20:45)
[2018-12-23] MEDS: OXcarbazepine 300 MG TAB PO SCH ×2 (08:17→20:46)
[2018-12-23] MEDS: DOCUSATE SODIUM 100 MG CAP PO SCH ×2 (08:17→20:46)
[2018-12-23] MEDS: LISINOPRIL 20 MG TAB PO SCH (08:17)
[2018-12-23] MEDS: amLODIPine 10 MG TAB PO SCH (08:17)
[2018-12-23] MEDS: CEPACOL LOZENGE PO PRN ×3 (09:12→21:37)
[2018-12-23] MEDS ORDERED: PPD DOCUMENTATION ENTRY MISC XX SCH (10:00)
--- NOTE | 2018-12-23 10:25 | MHIPNPDOC ---
[facility] Progress Note Progress Note DATE OF SERVICE: 12/23/18 HISTORY: Per Dr. Oakley "The patient, a 48-year-old man, with a history of schizophrenia versus bipolar, presents to [facility]. Initially upon presentation, it was noted that he had been brought in by a pickup order by his outpatient psychiatrist, Dr. Marina, at the [facility] He was noted to be acting very bizarre and was not at his baseline and was not taking his medications per his psychiatrist. He was noted to be in a manic state with rapid pressured and confused thoughts. He made very little sense in the emergency room and he was recently discharged from [facility] 3 weeks ago. When the patient was attempted to be met with, he continued to attempt to get this provider to write down various things. When this was declined, the patient generally considered to perseverate on multiple different complaints and paranoid thoughts, unable to engage in any interview." Below the majority of psychosocial information is extracted from the chart due to psychosis. VITAL SIGNS: See below. NEW TEST RESULTS: trileptal level 16, low therapeutic CURRENT MEDICATIONS: See below. MENTAL STATUS EXAMINATION: General: clean, dressed in his own clothes Speech: less rapid Thought processes:more linear and logical MSK: improved Psychomotor agitation Thought content: less associate Abstract reasoning, and computation: [place] Description of associations: less Loose, associative Description of abnormal or psychotic thoughts: Denies any suicidal or homicidal thoughts. Denies AH today and doesn't appear to be responding to them and does not appear manic but remains euphoric Judgment: Poor Insight: Poor Orientation: Alert and orientated 3 Cognition: Grossly normal Recent and remote memory: fair Attention span and concentration: Impaired Fund of knowledge: below average Mood: "ok" Affect: euphoric DIAGNOSES: Bipolar disorder, type 1, most recent episode manic. ASSESSMENT:Pt seen during treatment team and states he slept 8 hrs last night but did wake up 3 times, once to check the time, and two other times to use the rest room. He appears less euphoric and smily today although still smiles quite frequently mostly to his own statements and is beyond that of normal smiling. Pt, per staff, no longer agitated and confused during the night with increase in zyprexa at night and haldol TID. He states he feels like he's slowing down more (although still appears euphoric today) and is able to concentrate and focus better during interview. He is able to stay quiet and listen and ask reasonable/logical questions when seen. Although he is unable to site in silence for any period of time and will randomly start talking about anything. Is engaging in less hypomanic symptoms on the unit per stay on the unit and bizarre behavior occasionally. His speech less rapid today. His winsome seems to be improving with increase in zyprexa at night and start of haldol, both of which he's tolerating well. He is attending groups and finding them helpful. He denies SI/HI, VH. Pt feels safe here. MANAGEMENT PLAN: continue current plan. trileptal level trileptal 600mg bid zyprexa to 10mg qam and noon and 20mg qhs ativan 1mg q6hr prn anxiety/agitation zyprexa zydis 5mg q6hr prn anxiety/agitation seroquel 200mg qhs haldol 10mg tid TIME SPENT: 30 minutes. Vital Signs Vital Signs Date Time Temp Pulse Resp B/P (MAP) Pulse Ox O2 Delivery O2 Flow Rate FiO2 12/23/18 08:17 92 131/76 12/23/18 06:54 99.0 16 Laboratory Data 24H Labs Laboratory Tests 2 12/22/18 11:36: Bedside Glucose (Misc Panel) 98 12/22/18 17:09: Bedside Glucose (Misc Panel) 178H 12/22/18 20:28: Bedside Glucose (Misc Panel) 89 12/23/18 06:04: Bedside Glucose (Misc Panel) 110H Current Medications Current Medications Medications (Trade) Dose Ordered Sig/Kailey Route PRN Reason Start Time Stop Time Status Last Admin Dose Admin Acetaminophen (Tylenol Tab) 650 mg Q6HP PRN PO HEADACHE or DISCOMFORT 12/09/18 22:00 12/19/18 00:49 Al Hydrox/Mg Hydrox/Simethicone (Mylanta) 30 ml Q4HP PRN PO HEARTBURN/INDIGESTION 12/09/18 22:00 Amlodipine Besylate (Norvasc) 10 mg DAILY PO 12/10/18 09:00 12/23/18 08:17 Atorvastatin Calcium (Lipitor) 20 mg QHS PO 12/10/18 21:00 12/22/18 20:36 Cetylpyridinium Chloride (Cepacol) 1 pranav Q2HP PRN PO COUGH 12/10/18 10:30 12/23/18 09:12 Cetylpyridinium Chloride (Cepacol) 2 pranav Q2HP PRN PO SORE THROAT 12/10/18 09:45 12/10/18 10:23 DC Dextrose (Dextrose 50%) 25 ml ASDIRECTED PRN IV SEE LABEL COMMENTS 12/10/18 09:45 Divalproex Sodium (Depakote Er) 500 mg BID PO 12/10/18 21:00 12/12/18 10:54 DC 12/12/18 09:25 Docusate Sodium (Colace) 100 mg BID PO 12/10/18 09:00 12/23/18 08:17 Glucagon (Glucagon) 1 mg ASDIRECTED PRN SC SEE LABEL COMMENTS 12/10/18 09:45 Glucose (Glucose) 16 GM ASDIRECTED PRN PO SEE LABEL COMMENTS 12/10/18 09:45 Haloperidol (Haldol) 5 mg BID PO 12/10/18 21:00 12/12/18 10:54 DC 12/11/18 21:26 Haloperidol (Haldol) 5 mg Q4HP PRN PO ANXIETY/AGITATION 12/10/18 12:00 12/12/18 10:54 DC 12/12/18 02:46 Home Med (Med Rec Complete!) ASDIRECTED XX 12/09/18 23:30 12/09/18 23:32 DC Insulin Human Lispro (HumaLOG INSULIN) SEE PROTOCOL TABLE AC SC 12/10/18 12:00 12/23/18 07:31 Insulin Human Lispro (HumaLOG INSULIN) SEE PROTOCOL TABLE QHS SC 12/10/18 21:00 Levothyroxine Sodium (Synthroid) 100 mcg DAILY@0600 PO 12/11/18 06:00 12/23/18 05:59 Lisinopril (Prinivil) 20 mg DAILY PO 12/10/18 09:00 12/23/18 08:17 Lorazepam (Ativan) 1 mg STAT STAT PO 12/09/18 20:50 12/09/18 20:51 DC 12/09/18 21:33 Lorazepam (Ativan) 1 mg TID PO 12/14/18 16:00 12/23/18 08:17 Lorazepam (Ativan) 2 mg Q4HP PRN PO ANXIETY/AGITATION 12/10/18 12:00 12/18/18 05:44 Magnesium Hydroxide (Milk Of Magnesia) 30 ml DAILYPRN PRN PO CONSTIPATION 12/09/18 22:00 12/22/18 18:16 Metformin HCl (Glucophage) 1,000 mg BIDWM PO 12/10/18 08:00 12/23/18 07:31 Miscellaneous (Unresolved Clarification Entry) SEE LABEL COMMENTS DAILY XX 12/20/18 09:00 12/21/18 09:52 DC Non-Formulary Medication ( See Comment Field Below ) SEE COMMENTS SECTION 1T@10 XX 12/23/18 10:00 12/24/18 09:59 UNV Non-Formulary Medication ( See Comment Field Below ) SEE LABEL COMMENTS DAILY XX 12/21/18 09:00 12/21/18 11:31 DC Olanzapine (ZyPREXA ZYDIS) 5 mg Q6HP PRN PO ANXIETY/AGITATION 12/12/18 10:45 12/18/18 12:29 Olanzapine (ZyPREXA) 5 mg BID PO 12/12/18 21:00 12/13/18 09:07 DC 12/13/18 08:40 Olanzapine (ZyPREXA) 10 mg BID PO 12/13/18 21:00 12/14/18 09:31 DC 12/14/18 08:26 Olanzapine (ZyPREXA) 10 mg QHS PO 12/14/18 21:00 12/22/18 20:36 Olanzapine (ZyPREXA) 10 mg TID PO 12/14/18 16:00 12/23/18 08:17 Oxcarbazepine (Trileptal) 600 mg BID PO 12/12/18 21:00 12/23/18 08:17 Quetiapine Fumarate (SEROquel) 200 mg QHS PO 12/12/18 21:00 12/22/18 20:36 Trazodone HCl (Desyrel) 50 mg QHSP PRN PO INSOMNIA 12/09/18 22:00 12/22/18 21:29 Allergies Coded Allergies: Penicillins (Verified Allergy, Intermediate, rash, 12/09/18) CALIR TSEIN DO Dec 23, 2018 9:31 am
[2018-12-23] MEDS ORDERED: PPD DOCUMENTATION ENTRY MISC XX ONE (12:00)
[2018-12-23] MEDS: MOM 30ML SUSPENSION UDC PO PRN (14:38)
[2018-12-23 18:17] VITALS: BP 129/86
[2018-12-23] MEDS: ATORVASTATIN 20 MG TAB PO SCH (20:46)
[2018-12-23] MEDS: QUEtiapine FUMARATE 200 MG TAB PO SCH (20:46)
[2018-12-23] MEDS: traZODone 50 MG TAB PO PRN (21:37)
[2018-12-24] MEDS: LEVOTHYROXINE 100MCG TABLET (0.1MG) PO SCH (05:28)
[2018-12-24] MEDS: HumaLOG INSULIN (NovoLOG) PER UNIT SC SCH ×4 (05:49→21:00)
[2018-12-24 06:04] VITALS: BP 158/98
[2018-12-24] MEDS: metFORMIN (GLUCOPHAGE) 1000 MG TABLET PO SCH ×2 (07:36→17:22)
[2018-12-24] MEDS: LORazepam 1 MG TAB PO SCH ×3 (08:07→21:05)
[2018-12-24] MEDS: DOCUSATE SODIUM 100 MG CAP PO SCH ×2 (08:07→21:05)
[2018-12-24] MEDS: LISINOPRIL 20 MG TAB PO SCH (08:07)
[2018-12-24] MEDS: OXcarbazepine 300 MG TAB PO SCH ×2 (08:07→21:05)
[2018-12-24] MEDS: amLODIPine 10 MG TAB PO SCH (08:07)
[2018-12-24] MEDS: OLANZapine 10 MG TAB PO SCH ×4 (08:07→21:06)
[2018-12-24 16:28] VITALS: BP 140/70
[2018-12-24] MEDS: QUEtiapine FUMARATE 200 MG TAB PO SCH (21:05)
[2018-12-24] MEDS: ATORVASTATIN 20 MG TAB PO SCH (21:05)
[2018-12-25 06:51] VITALS: BP 115/75
[2018-12-25] MEDS: LEVOTHYROXINE 100MCG TABLET (0.1MG) PO SCH (06:57)
[2018-12-25] MEDS: HumaLOG INSULIN (NovoLOG) PER UNIT SC SCH ×4 (07:12→20:51)
[2018-12-25] MEDS: metFORMIN (GLUCOPHAGE) 1000 MG TABLET PO SCH ×2 (07:25→17:23)
[2018-12-25] MEDS: DOCUSATE SODIUM 100 MG CAP PO SCH ×2 (08:12→20:48)
[2018-12-25] MEDS: OLANZapine 10 MG TAB PO SCH ×4 (08:12→20:49)
[2018-12-25] MEDS: OXcarbazepine 300 MG TAB PO SCH ×2 (08:12→20:48)
[2018-12-25] MEDS: LORazepam 1 MG TAB PO SCH ×3 (08:12→20:48)
[2018-12-25] MEDS: amLODIPine 10 MG TAB PO SCH (08:13)
[2018-12-25] MEDS: LISINOPRIL 20 MG TAB PO SCH (08:13)
[2018-12-25] MEDS: MOM 30ML SUSPENSION UDC PO PRN (10:24)
[2018-12-25 16:41] VITALS: BP 118/61
[2018-12-25] MEDS: ATORVASTATIN 20 MG TAB PO SCH (20:47)
[2018-12-25] MEDS: QUEtiapine FUMARATE 200 MG TAB PO SCH (20:48)
[2018-12-26] MEDS: LEVOTHYROXINE 100MCG TABLET (0.1MG) PO SCH (06:01)
[2018-12-26 06:51] VITALS: BP 142/76
[2018-12-26] MEDS: HumaLOG INSULIN (NovoLOG) PER UNIT SC SCH ×4 (07:14→21:00)
[2018-12-26] MEDS: metFORMIN (GLUCOPHAGE) 1000 MG TABLET PO SCH ×2 (07:45→17:02)
[2018-12-26] MEDS: amLODIPine 10 MG TAB PO SCH (08:45)
[2018-12-26] MEDS: DOCUSATE SODIUM 100 MG CAP PO SCH ×2 (08:45→21:03)
[2018-12-26] MEDS: LORazepam 1 MG TAB PO SCH ×3 (08:46→21:02)
[2018-12-26] MEDS: LISINOPRIL 20 MG TAB PO SCH (08:46)
[2018-12-26] MEDS: OXcarbazepine 300 MG TAB PO SCH ×2 (08:46→21:02)
[2018-12-26] MEDS: OLANZapine 10 MG TAB PO SCH ×4 (08:46→21:02)
--- NOTE | 2018-12-26 09:24 | MHIPNPDOC ---
[facility] Progress Note Progress Note DATE OF SERVICE: 12/26/18 HISTORY: Per Dr. Oakley "The patient, a 48-year-old man, with a history of schizophrenia versus bipolar, presents to [facility]. Initially upon presentation, it was noted that he had been brought in by a pickup order by his outpatient psychiatrist, Dr. Marina, at the [facility]. He was noted to be acting very bizarre and was not at his baseline and was not taking his medications per his psychiatrist. He was noted to be in a manic state with rapid pressured and confused thoughts. He made very little sense in the emergency room and he was recently discharged from [facility] 3 weeks ago. When the patient was attempted to be met with, he continued to attempt to get this provider to write down various things. When this was declined, the patient generally considered to perseverate on multiple different complaints and paranoid thoughts, unable to engage in any interview." Below the majority of psychosocial information is extracted from the chart due to psychosis. VITAL SIGNS: See below. NEW TEST RESULTS: trileptal level 16, low therapeutic CURRENT MEDICATIONS: See below. MENTAL STATUS EXAMINATION: General: clean, dressed in his own clothes Speech: less rapid Thought processes:more linear and logical MSK: no symptoms noted Thought content: more linear and logical Abstract reasoning, and computation: [place] Description of associations: more appropriate Description of abnormal or psychotic thoughts: Denies any suicidal or homicidal thoughts. Denies AH today and doesn't appear to be responding to them and does not appear manic or euphoric Judgment: fair Insight: fair Orientation: Alert and orientated 3 Cognition: Grossly normal Recent and remote memory: fair Attention span and concentration: improved Fund of knowledge: below average Mood: "good" Affect: more euthymic DIAGNOSES: Bipolar disorder, type 1, most recent episode manic. ASSESSMENT:Pt seen and states he slept 8 hrs last night but did wake up 3 times and woke up 3 times to to use the restroom but went back to bed and feel asleep right after each time. He appears less euphoric and smily today. Pt, per staff, no longer agitated and confused during the night with increase in zyprexa at night and haldol TID. He states he feels like he's slowing down more, appears like he is too, and is able to concentrate and focus better during interview. He is more able to stay quiet and listen and ask reasonable/logical questions when seen. Although he is more able to sit in silence for any period of time and will randomly start talking about anything. Is engaging in less hypomanic symptoms on the unit per stay on the unit and bizarre behavior occasionally. His speech less rapid today. His winsome seems to be improving with increase in zyprexa at night and start of haldol, both of which he's t olerating well. He is attending groups and finding them helpful. He denies SI/HI, VH. Pt feels safe here. MANAGEMENT PLAN: continue current plan. trileptal 600mg bid zyprexa to 10mg qam and noon and 20mg qhs ativan 1mg q6hr prn anxiety/agitation zyprexa zydis 5mg q6hr prn anxiety/agitation seroquel 200mg qhs haldol 10mg tid TIME SPENT: 30 minutes. Vital Signs Vital Signs Date Time Temp Pulse Resp B/P (MAP) Pulse Ox O2 Delivery O2 Flow Rate FiO2 12/26/18 08:45 99 117/73 12/26/18 06:51 96.4 12 12/24/18 16:58 100 Laboratory Data 24H Labs Laboratory Tests 2 12/25/18 12:05: Bedside Glucose (Misc Panel) 117H 12/25/18 17:21: Bedside Glucose (Misc Panel) 143H 12/25/18 20:42: Bedside Glucose (Misc Panel) 91 12/26/18 06:04: Bedside Glucose (Misc Panel) 99 Current Medications Current Medications Medications (Trade) Dose Ordered Sig/Kailey Route PRN Reason Start Time Stop Time Status Last Admin Dose Admin Acetaminophen (Tylenol Tab) 650 mg Q6HP PRN PO HEADACHE or DISCOMFORT 12/09/18 22:00 12/19/18 00:49 Al Hydrox/Mg Hydrox/Simethicone (Mylanta) 30 ml Q4HP PRN PO HEARTBURN/INDIGESTION 12/09/18 22:00 Amlodipine Besylate (Norvasc) 10 mg DAILY PO 12/10/18 09:00 12/26/18 08:45 Atorvastatin Calcium (Lipitor) 20 mg QHS PO 12/10/18 21:00 9/8/19 20:47 Cetylpyridinium Chloride (Cepacol) 1 pranav Q2HP PRN PO COUGH 12/10/18 10:30 12/23/18 21:37 Cetylpyridinium Chloride (Cepacol) 2 pranav Q2HP PRN PO SORE THROAT 12/10/18 09:45 12/10/18 10:23 DC Dextrose (Dextrose 50%) 25 ml ASDIRECTED PRN IV SEE LABEL COMMENTS 12/10/18 09:45 Divalproex Sodium (Depakote Er) 500 mg BID PO 12/10/18 21:00 12/12/18 10:54 DC 12/12/18 09:25 Docusate Sodium (Colace) 100 mg BID PO 12/10/18 09:00 12/26/18 08:45 Glucagon (Glucagon) 1 mg ASDIRECTED PRN SC SEE LABEL COMMENTS 12/10/18 09:45 Glucose (Glucose) 16 GM ASDIRECTED PRN PO SEE LABEL COMMENTS 12/10/18 09:45 Haloperidol (Haldol) 5 mg BID PO 12/10/18 21:00 12/12/18 10:54 DC 12/11/18 21:26 Haloperidol (Haldol) 5 mg Q4HP PRN PO ANXIETY/AGITATION 12/10/18 12:00 12/12/18 10:54 DC 12/12/18 02:46 Home Med (Med Rec Complete!) ASDIRECTED XX 12/09/18 23:30 12/09/18 23:32 DC Insulin Human Lispro (HumaLOG INSULIN) SEE PROTOCOL TABLE AC SC 12/10/18 12:00 12/25/18 17:24 Insulin Human Lispro (HumaLOG INSULIN) SEE PROTOCOL TABLE QHS SC 12/10/18 21:00 Levothyroxine Sodium (Synthroid) 100 mcg DAILY@0600 PO 12/11/18 06:00 12/26/18 06:01 Lisinopril (Prinivil) 20 mg DAILY PO 12/10/18 09:00 12/26/18 08:46 Lorazepam (Ativan) 1 mg STAT STAT PO 12/09/18 20:50 12/09/18 20:51 DC 12/09/18 21:33 Lorazepam (Ativan) 1 mg TID PO 12/14/18 16:00 12/26/18 08:46 Lorazepam (Ativan) 2 mg Q4HP PRN PO ANXIETY/AGITATION 12/10/18 12:00 12/18/18 05:44 Magnesium Hydroxide (Milk Of Magnesia) 30 ml DAILYPRN PRN PO CONSTIPATION 12/09/18 22:00 12/25/18 10:24 Metformin HCl (Glucophage) 1,000 mg BIDWM PO 12/10/18 08:00 12/26/18 07:45 Miscellaneous (Unresolved Clarification Entry) SEE LABEL COMMENTS DAILY XX 12/20/18 09:00 12/21/18 09:52 DC Non-Formulary Medication ( See Comment Field Below ) SEE COMMENTS SECTION 1T@10 XX 12/23/18 10:00 12/24/18 09:59 UNV Non-Formulary Medication ( See Comment Field Below ) SEE LABEL COMMENTS DAILY XX 12/21/18 09:00 12/21/18 11:31 DC Olanzapine (ZyPREXA ZYDIS) 5 mg Q6HP PRN PO ANXIETY/AGITATION 12/12/18 10:45 12/18/18 12:29 Olanzapine (ZyPREXA) 5 mg BID PO 12/12/18 21:00 12/13/18 09:07 DC 12/13/18 08:40 Olanzapine (ZyPREXA) 10 mg BID PO 12/13/18 21:00 12/14/18 09:31 DC 12/14/18 08:26 Olanzapine (ZyPREXA) 10 mg QHS PO 12/14/18 21:00 12/25/18 20:49 Olanzapine (ZyPREXA) 10 mg TID PO 12/14/18 16:00 12/26/18 08:46 Oxcarbazepine (Trileptal) 600 mg BID PO 12/12/18 21:00 12/26/18 08:46 Quetiapine Fumarate (SEROquel) 200 mg QHS PO 12/12/18 21:00 12/25/18 20:48 Trazodone HCl (Desyrel) 50 mg QHSP PRN PO INSOMNIA 12/09/18 22:00 12/23/18 21:37 Allergies Coded Allergies: Penicillins (Verified Allergy, Intermediate, rash, 12/09/18) CLAIR STEIN DO Dec 26, 2018 9:24 am
[2018-12-26 15:46] VITALS: BP 124/63
[2018-12-26] MEDS: ATORVASTATIN 20 MG TAB PO SCH (21:03)
[2018-12-26] MEDS: QUEtiapine FUMARATE 200 MG TAB PO SCH (21:03)
[2018-12-27] MEDS: LEVOTHYROXINE 100MCG TABLET (0.1MG) PO SCH (05:51)
[2018-12-27] MEDS: HumaLOG INSULIN (NovoLOG) PER UNIT SC SCH ×4 (06:34→21:00)
[2018-12-27 07:00] VITALS: BP 129/83
[2018-12-27] MEDS: OXcarbazepine 300 MG TAB PO SCH ×2 (08:41→20:58)
[2018-12-27] MEDS: LISINOPRIL 20 MG TAB PO SCH (08:41)
[2018-12-27] MEDS: LORazepam 1 MG TAB PO SCH (08:41)
[2018-12-27] MEDS: amLODIPine 10 MG TAB PO SCH (08:42)
[2018-12-27] MEDS: DOCUSATE SODIUM 100 MG CAP PO SCH ×2 (08:42→20:58)
[2018-12-27] MEDS: metFORMIN (GLUCOPHAGE) 1000 MG TABLET PO SCH ×2 (08:42→16:45)
[2018-12-27] MEDS: OLANZapine 10 MG TAB PO SCH ×4 (08:42→20:57)
[2018-12-27] MEDS: CEPACOL LOZENGE PO PRN ×2 (09:45→23:01)
--- NOTE | 2018-12-27 10:30 | MHIPNPDOC ---
[facility] Progress Note Progress Note DATE OF SERVICE: 12/27/18 HISTORY: Per Dr. Oakley "The patient, a 48-year-old man, with a history of schizophrenia versus bipolar, presents to [facility]. Initially upon presentation, it was noted that he had been brought in by a pickup order by his outpatient psychiatrist, Dr. Marina, at the [facility]. He was noted to be acting very bizarre and was not at his baseline and was not taking his medications per his psychiatrist. He was noted to be in a manic state with rapid pressured and confused thoughts. He made very little sense in the emergency room and he was recently discharged from [facility] weeks ago. When the patient was attempted to be met with, he continued to attempt to get this provider to write down various things. When this was declined, the patient generally considered to perseverate on multiple different complaints and paranoid thoughts, unable to engage in any interview." Below the majority of psychosocial information is extracted from the chart due to psychosis. VITAL SIGNS: See below. NEW TEST RESULTS: trileptal level 16, low therapeutic CURRENT MEDICATIONS: See below. MENTAL STATUS EXAMINATION: General: clean, dressed in his own clothes Speech: less rapid Thought processes:more linear and logical MSK: no symptoms noted Thought content: more linear and logical Abstract reasoning, and computation: Oriental Description of associations: more appropriate Description of abnormal or psychotic thoughts: Denies any suicidal or homicidal thoughts. Denies AH today and doesn't appear to be responding to them and does not appear manic or euphoric Judgment: fair Insight: fair Orientation: Alert and orientated 3 Cognition: Grossly normal Recent and remote memory: fair Attention span and concentration: good, able to read a book Fund of knowledge: below average Mood: "good" Affect: euthymic, appropriate DIAGNOSES: Bipolar disorder, type 1, most recent episode manic. ASSESSMENT:Pt seen and states he again slept 8 hrs last night but did wake up 3 times and woke up 3 times to to use the restroom but went back to bed and feel asleep right after each time. He appears euthymic and full, appropriate range. His attention and concentration are greatly improved as he is able to read a book well (is ready a Ronald Clansy novel). Pt, per staff, no longer agitated and confused during the night with increase in zyprexa at night and haldol TID. He states he feels like he's back to himself, no longer manic, appears like he is too, and is able to concentrate and focus well during interview. He is more able to stay quiet and listen and ask reasonable/logical questions when seen. He is tolerating his medication well and finding it beneficial. Is no longer engaging in hypomanic symptoms on the unit. He is no longer acting bizarre. His speech reg rate/rhythm today. His winsome is greatly improved with treatment and medication. He is attending groups and finding them helpful. He denies SI/HI, AVH, delusions. Pt feels safe here. MANAGEMENT PLAN: d/c tomorrow trileptal 600mg bid zyprexa to 10mg qam and noon and 20mg qhs ativan 1mg q6hr prn anxiety/agitation zyprexa zydis 5mg q6hr prn anxiety/agitation seroquel 200mg qhs haldol 10mg tid TIME SPENT: 30 minutes. Vital Signs Vital Signs Date Time Temp Pulse Resp B/P (MAP) Pulse Ox O2 Delivery O2 Flow Rate FiO2 12/27/18 08:42 95 131/86 12/27/18 07:00 98.1 14 12/24/18 16:58 100 Laboratory Data 24H Labs Laboratory Tests 2 12/26/18 11:52: Bedside Glucose (Misc Panel) 110H 12/26/18 16:45: Bedside Glucose (Misc Panel) 167H 12/26/18 20:58: Bedside Glucose (Misc Panel) 125H 12/27/18 05:56: Bedside Glucose (Misc Panel) 96 Current Medications Current Medications Medications (Trade) Dose Ordered Sig/Kailey Route PRN Reason Start Time Stop Time Status Last Admin Dose Admin Acetaminophen (Tylenol Tab) 650 mg Q6HP PRN PO HEADACHE or DISCOMFORT 12/09/18 22:00 12/19/18 00:49 Al Hydrox/Mg Hydrox/Simethicone (Mylanta) 30 ml Q4HP PRN PO HEARTBURN/INDIGESTION 12/09/18 22:00 Amlodipine Besylate (Norvasc) 10 mg DAILY PO 12/10/18 09:00 12/27/18 08:42 Atorvastatin Calcium (Lipitor) 20 mg QHS PO 12/10/18 21:00 12/26/18 21:03 Cetylpyridinium Chloride (Cepacol) 1 pranav Q2HP PRN PO COUGH 12/10/18 10:30 12/27/18 09:45 Cetylpyridinium Chloride (Cepacol) 2 pranav Q2HP PRN PO SORE THROAT 12/10/18 09:45 12/10/18 10:23 DC Dextrose (Dextrose 50%) 25 ml ASDIRECTED PRN IV SEE LABEL COMMENTS 12/10/18 09:45 Divalproex Sodium (Depakote Er) 500 mg BID PO 12/10/18 21:00 12/12/18 10:54 DC 12/12/18 09:25 Docusate Sodium (Colace) 100 mg BID PO 12/10/18 09:00 12/27/18 08:42 Glucagon (Glucagon) 1 mg ASDIRECTED PRN SC SEE LABEL COMMENTS 12/10/18 09:45 Glucose (Glucose) 16 GM ASDIRECTED PRN PO SEE LABEL COMMENTS 12/10/18 09:45 Haloperidol (Haldol) 5 mg BID PO 12/10/18 21:00 12/12/18 10:54 DC 12/11/18 21:26 Haloperidol (Haldol) 5 mg Q4HP PRN PO ANXIETY/AGITATION 12/10/18 12:00 12/12/18 10:54 DC 12/12/18 02:46 Home Med (Med Rec Complete!) ASDIRECTED XX 12/09/18 23:30 12/09/18 23:32 DC Insulin Human Lispro (HumaLOG INSULIN) SEE PROTOCOL TABLE AC SC 12/10/18 12:00 12/26/18 17:04 Insulin Human Lispro (HumaLOG INSULIN) SEE PROTOCOL TABLE QHS SC 12/10/18 21:00 Levothyroxine Sodium (Synthroid) 100 mcg DAILY@0600 PO 12/11/18 06:00 12/27/18 05:51 Lisinopril (Prinivil) 20 mg DAILY PO 12/10/18 09:00 12/27/18 08:41 Lorazepam (Ativan) 1 mg STAT STAT PO 12/09/18 20:50 12/09/18 20:51 DC 12/09/18 21:33 Lorazepam (Ativan) 1 mg TID PO 12/14/18 16:00 12/27/18 08:41 Lorazepam (Ativan) 2 mg Q4HP PRN PO ANXIETY/AGITATION 12/10/18 12:00 12/18/18 05:44 Magnesium Hydroxide (Milk Of Magnesia) 30 ml DAILYPRN PRN PO CONSTIPATION 12/09/18 22:00 12/25/18 10:24 Metformin HCl (Glucophage) 1,000 mg BIDWM PO 12/10/18 08:00 12/27/18 08:42 Miscellaneous (Unresolved Clarification Entry) SEE LABEL COMMENTS DAILY XX 12/20/18 09:00 12/21/18 09:52 DC Miscellaneous (Unresolved Clarification Entry) SEE LABEL COMMENTS DAILY XX 12/26/18 09:00 Non-Formulary Medication ( See Comment Field Below ) SEE COMMENTS SECTION 1T@10 XX 12/23/18 10:00 12/24/18 09:59 UNV Non-Formulary Medication ( See Comment Field Below ) SEE LABEL COMMENTS DAILY XX 12/21/18 09:00 12/21/18 11:31 DC Olanzapine (ZyPREXA ZYDIS) 5 mg Q6HP PRN PO ANXIETY/AGITATION 12/12/18 10:45 12/18/18 12:29 Olanzapine (ZyPREXA) 5 mg BID PO 12/12/18 21:00 12/13/18 09:07 DC 12/13/18 08:40 Olanzapine (ZyPREXA) 10 mg BID PO 12/13/18 21:00 12/14/18 09:31 DC 12/14/18 08:26 Olanzapine (ZyPREXA) 10 mg QHS PO 12/14/18 21:00 12/26/18 21:02 Olanzapine (ZyPREXA) 10 mg TID PO 12/14/18 16:00 12/27/18 08:42 Oxcarbazepine (Trileptal) 600 mg BID PO 12/12/18 21:00 12/27/18 08:41 Quetiapine Fumarate (SEROquel) 200 mg QHS PO 12/12/18 21:00 12/26/18 21:03 Trazodone HCl (Desyrel) 50 mg QHSP PRN PO INSOMNIA 12/09/18 22:00 12/23/18 21:37 Allergies Coded Allergies: Penicillins (Verified Allergy, Intermediate, rash, 12/09/18) CLAIR STEIN DO Dec 27, 2018 10:04 am
[2018-12-27 18:00] VITALS: BP 135/82
[2018-12-27] MEDS: ATORVASTATIN 20 MG TAB PO SCH (20:58)
[2018-12-27] MEDS: QUEtiapine FUMARATE 200 MG TAB PO SCH (20:58)
[2018-12-28] MEDS: LEVOTHYROXINE 100MCG TABLET (0.1MG) PO SCH (05:56)
[2018-12-28] MEDS: HumaLOG INSULIN (NovoLOG) PER UNIT SC SCH (06:44)
[2018-12-28 07:00] VITALS: BP 136/81
[2018-12-28] MEDS: LISINOPRIL 20 MG TAB PO SCH (08:21)
[2018-12-28 08:22] VITALS: BP 136/81
[2018-12-28] MEDS: amLODIPine 10 MG TAB PO SCH (08:22)
[2018-12-28] MEDS: DOCUSATE SODIUM 100 MG CAP PO SCH (08:22)
[2018-12-28] MEDS: metFORMIN (GLUCOPHAGE) 1000 MG TABLET PO SCH (08:22)
[2018-12-28] MEDS: OLANZapine 10 MG TAB PO SCH (08:22)
[2018-12-28] MEDS: OXcarbazepine 300 MG TAB PO SCH (08:22)
--- NOTE | 2018-12-28 09:00 | MHDSPDOC ---
[facility] Discharge Summary Discharge Summary DATE OF ADMISSION: Dec 09, 2018 at 9:59 pm DATE OF DISCHARGE: Dec 28, 2018 DISCHARGE DIAGNOSES: Bipolar disorder, type 1, most recent episode manic. REASON FOR ADMISSION: Per Dr. Oakley "The patient, a 48-year-old man, with a history of schizophrenia versus bipolar, presents to [facility]. Initially upon presentation, it was noted that he had been brought in by a pickup order by his outpatient psychiatrist, Dr. Marina, at the [facility]. He was noted to be acting very bizarre and was not at his baseline and was not taking his medications per his psychiatrist. He was noted to be in a manic state with rapid pressured and confused thoughts. He made very little sense in the emergency room and he was recently discharged from [facility] 3 weeks ago. When the patient was attempted to be met with, he continued to attempt to get this provider to write down various things. When this was declined, the patient generally considered to perseverate on multiple different complaints and paranoid thoughts, unable to engage in any interview." CONSULTANTS INVOLVED: none TREATMENT AND PROGRESS ON THE UNIT : [facility], seen for psychiatric assessment and restarted on his outpatient medications seroquel 200mg qhs. His outpatient lithium was discontinued due to risk of dehydration in the future and it did not appear very effective as he was manic. Pt was started on trileptal 600mg bid, which he has taken previous and done very well on, that he tolerated well and his winsome improved. He was started zyprexa 10mg qam and 20mg qhs for winsome and psychosis that he tolerated well and his winsome and psychosis improved greatly. His trileptal level prior d/c was 16 which was therapeutic. Pt found his medications beneficial and tolerated them well. He attended groups daily during her stay. His symptoms improved with greatly treatment. On day of discharge he denied depression, winsome, anxiety, insomnia, SI/HI, hallucinations, delusions. He was discharged back to [facility] with follow-up with Dr. Marina, at the [facility].. He felt safe for discharge. DISCHARGE ASSESSMENT: Pt seen and states he's doing "good" and is greatly looking forward to going home today. States he's sleeping 8hrs nightly and only use the roughly 3 times nightly to to use the restroom then go back to bed and fall asleep right after each time. He appears euthymic and full, appropriate range. His attention and concentration are greatly improved as he is able to read a book well (is ready a Ronald Clansy novel) and he no longer appears manic or psychotic. Pt, per staff, no longer agitated and confused during the night with increase in zyprexa at night . He states he feels like he's back to himself, no longer manic, and is able to concentrate and focus well during interview. He is more able to stay quiet and listen and ask reasonable/logical questions when seen. He is tolerating his medication well and finding it beneficial. He is no longer acting bizarre. His speech reg rate/rhythm today. His winsome is greatly improved with treatment and medication. He is attending groups and finding them helpful. He denies depression, anxiety, winsome/hypomania, insomnia, SI/HI, AVH, delusions. Pt feels safe to be discharged home. MENTAL STATUS EXAMINATION ON DISCHARGE: General: clean, dressed in his own clothes Speech: less rapid Thought processes:linear and logical MSK: no symptoms noted Thought content: linear and logical Abstract reasoning, and computation: [place], intake Description of associations: more appropriate Description of abnormal or psychotic thoughts: Denies any suicidal or homicidal thoughts. Denies hallucinations and delusions Judgment: good Insight: good Orientation: Alert and orientated 3 Cognition: Grossly normal Recent and remote memory: good Attention span and concentration: good, able to read a book Fund of knowledge: below average Mood: "good" Affect: euthymic, appropriate MEDICATIONS ON DISCHARGE: trileptal 600mg bid zyprexa to 10mg qam and noon and 20mg qhs seroquel 200mg qhs trazodone 50mg qhs prn insomnia PLAN/FOLLOWUP ARRANGEMENTS: D/c back to [facility] with follow-up with Dr. Marina, at the [facility]. The amount of time spent in the coordination of care for this patient was approximately 30 minutes. Vital Signs/I&Os Vital Signs Date Time Temp Pulse Resp B/P (MAP) Pulse Ox O2 Delivery O2 Flow Rate FiO2 12/28/18 08:22 87 136/81 12/28/18 07:00 97.3 14 12/24/18 16:58 100 Laboratory Data Labs 24H Laboratory Tests 2 12/27/18 11:20: Bedside Glucose (Misc Panel) 120H 12/27/18 16:43: Bedside Glucose (Misc Panel) 134H 12/27/18 20:54: Bedside Glucose (Misc Panel) 140H 12/28/18 06:01: Bedside Glucose (Misc Panel) 95 Medications Scheduled Amlodipine Besylate (Amlodipine Besylate) 10 Mg Tablet, 10 MG PO DAILY, (Reported) Atorvastatin Calcium (Atorvastatin Calcium) 20 Mg Tab, 20 MG PO QHS, (Reported) Benztropine Mesylate (Benztropine Mesylate) 1 Mg Tablet, 1 MG PO DAILY for eps, #10 Docusate Sodium (Docusate Sodium) 100 Mg Capsule, 100 MG PO BID, (Reported) Gabapentin (Gabapentin) 600 Mg Tab, 600 MG PO BID, (Reported) Insulin Aspart (Novolog Flexpen) 100 Unit/1 Ml Insuln.pen, 1 UNITS SC TID, ( Reported) PER SLIDING SCALE Levothyroxine Sodium (Levothyroxine Sodium) 100 Mcg Tab, 100 MCG PO DAILY, (Reported) Lisinopril (Lisinopril) 20 Mg Tablet, 20 MG PO DAILY, (Reported) Olanzapine (Olanzapine) 10 Mg Tablet, 10 MG PO TID for schizoaffective, #30 Olanzapine (Olanzapine) 10 Mg Tablet, 10 MG PO QHS for schizoaffective, #10 Oxcarbazepine (Oxcarbazepine) 300 Mg Tablet, 600 MG PO BID for schizoaffective, #40 Quetiapine Fumarate (Quetiapine Fumarate) 200 Mg Tablet, 200 MG PO QHS for schizoaffective, #10 Scheduled PRN Trazodone HCl (Trazodone HCl) 50 Mg Tablet, 50 MG PO QHSP PRN for INSOMNIA, #10 Miscellaneous Medications [Patient Comments] , (Reported) PATIENT IS AWARE OF HIS MEDICATIONS AND WHAT HE TAKES THEM FOR HOWEVER HE IS UNABLE TO TELL ME IF OR WHEN HE HAS TAKEN THEM MEDICATION VERIFIED WITH PHARMACY Allergies Coded Allergies: Penicillins (Verified Allergy, Intermediate, rash, 12/09/18) CLAIR STEIN DO Dec 28, 2018 9:00 am
[2018-12-28] MEDS ORDERED: OLAN10TA2 PO ×2 (09:10)
[2018-12-28] MEDS ORDERED: QUET200T2 PO (09:10)
[2018-12-28] MEDS ORDERED: OXCA300T14 PO (09:10)
[2018-12-28] MEDS ORDERED: TRAZ-252 PO (09:10)
[2018-12-28] MEDS ORDERED: BENZ-52 PO (09:10)
[2018-12-28] MEDS: CEPACOL LOZENGE PO PRN (09:53)
== END 2018-12-28 11:30 | disposition home or self-care (01) | DRG 885 ==
LOC: M ED 17:05 → M ED INP 21:59 → M PSY 23:30
PROVIDERS: ADMIT Psychiatry & Neurology Addiction Medicine; ATTEND Psychiatry & Neurology Psychiatry
DX: F31.2 Bipolar disorder, current episode manic severe with psychotic features (principal); Z91.14 Patient's other noncompliance with medication regimen; Z79.899 Other long term (current) drug therapy; I10 Essential (primary) hypertension; E11.9 Type 2 diabetes mellitus without complications; Z88.0 Allergy status to penicillin

== ENCOUNTER 2019-01-02 19:34 | Inpatient (IN) | payer MEDICARE, MEDICAID ==
[~2019-01-02] VITALS: Ht 177.8 cm; Wt 107.9 kg
[~2019-01-02 19:34] MED LIST changes: +DOCU100C17 PO; -FLUP10TA PO; +FLUP10TA11 PO; +LITH300T2 PO; +LORA0.5T5 PO; -LORA1TAB12 PO; +LORA1TAB4 PO; +NOVOINJ3 SC; +OLAN7.5T PO; +PATIENT COMMENTS; +QUET200T2 PO; +RISP50INJ IM; +TRAZ-252 PO
[2019-01-03] MEDS ORDERED: traZODone 50 MG TAB PO PRN (05:00)
[2019-01-03] MEDS ORDERED: GLUCAGON FOR INJ 1 MG VIAL (J1610) SC PRN (05:00)
[2019-01-03] MEDS ORDERED: OLANZapine ORAL DISINTEGRATING TAB 5MG PO PRN (05:00)
[2019-01-03] MEDS ORDERED: MOM 30ML SUSPENSION UDC PO PRN (05:00)
[2019-01-03] MEDS ORDERED: DEXTROSE 50% 50 ML SYRINGE IV PRN (05:00)
[2019-01-03] MEDS ORDERED: MAALOX 30 ML SUSP *UDC PO PRN (05:00)
[2019-01-03] MEDS ORDERED: GLUCOSE 4 GM CHEW TABLET PO PRN (05:00)
[2019-01-03] MEDS ORDERED: ACETAMINOPHEN TAB 650MG DOSE (2X325MG) PO PRN (05:00)
[2019-01-03] MEDS ORDERED: OLAN10TA2 PO (05:34)
[2019-01-03] MEDS ORDERED: BENZ-52 PO (05:34)
[2019-01-03] MEDS ORDERED: QUET200T2 PO (05:42)
[2019-01-03] MEDS ORDERED: OXCA300T14 PO (05:42)
[2019-01-03] MEDS ORDERED: TRAZ-186 PO (05:42)
[2019-01-03] MEDS ORDERED: PATIENT COMMENTS (05:44)
[2019-01-03 06:02] VITALS: BP 142/92
[2019-01-03] MEDS ORDERED: LITH300T2 PO ×2 (06:32)
[2019-01-03] MEDS: HumaLOG INSULIN (NovoLOG) PER UNIT SC SCH ×4 (07:47→21:00)
[2019-01-03] MEDS: NICOTINE 21MG/24HR 1 EA TRANSDERMAL TD SCH (08:50)
[2019-01-03] MEDS ORDERED: LORazepam 2 MG/ML VIAL (J2060) IM PRN (09:45)
[2019-01-03] MEDS ORDERED: OLANZapine 10 MG TAB PO ONE (09:45)
[2019-01-03] MEDS ORDERED: OXcarbazepine 300 MG TAB PO ONE (09:45)
[2019-01-03] MEDS: GABAPENTIN 300 MG CAP PO SCH ×2 (09:57→21:54)
[2019-01-03] MEDS: amLODIPine 10 MG TAB PO SCH (09:57)
[2019-01-03] MEDS: lisinopriL 20 MG TAB PO SCH (09:57)
--- NOTE | 2019-01-03 10:47 | MHHPEPDOC ---
General Date Of Admission: Jan 02, 2019 Legal Status: 9.39 Chief Complaint "I'm back". History of Present Illness HISTORY OF THE PRESENT ILLNESS: Patient is a 48 -year-old , male, with psych history of bipolar 1 disorder, multiple admission [facility] and elsewhere ([facility]) in the past, recently d/c [facility] 12/28/18 for winsome with psychosis who who was transfered from [facility] after sent there by his outpt provider for bizarre behavior, winsome, disorganization, hyperverbal speech, endorsing non command AH of "my father" in the ED. Pt appeared manic and disorganized with nonsensical speech per [facility] ED when evaluated there. Pt is a poor historian so history gathered from previous records. Past Psychiatric History Previous Psychiatric Diagnosis: bipolar disorder Previous Psychiatric Admissions: multiple psychiatric admission to [facility] (last 12/13/18), [facility], [facility], and [facility]. the last time he was at [facility] was in February last year. He was at [facility] Suicide Attempts: once at 23yrs old Psychiatric Follow-up: Dr. Kong, he saw him for a long time, he had a heart attack and a therapist in [facility]. July (psychiatrist, he saw her to months ago and talked to her on the phone about two weeks ago because he didn't get a ride, he called her.) Psychiatric medications: Prozac, Paxil, Zoloft, Tegretol, Zyprexa, risperidone, Risperdal Consta, Abilify, Invega Sustenna, Depakote. he has taken Doxepine. At [facility] he received the injectable form of Abilify and he thinks that he became manic after he received the injection. Past Medical History Medical Problems DMII, HTN, CAD Head Injury: Yes (he had a couple, when he was in school. Once he fell on the snow and he didn't go to school for a couple of days. He was hospitalized for a couple of days, he felt nauseous, he was unconscious.) Seizures: No Hospitalizations: Yes Surgeries: Yes (: tonsillectomy) Family Medical/Psychiatric HX Medical Problems none contributory Psychiatric Disorders: Yes (Maternal mother and maternal grandmother have bipolar disorder His mother takes [place]wood. Maternal aunt committed suicide when the patient was 5-years old. His uncle used to do drugs and he went to see the place where she committed suicide and he said that it seemed as if someone had helped her. This uncle already . There is no alcohol or drug abuse in the family.) Addiction: No Suicide Attemps/Completions: No Addiction History denies, other (he has not had a drinkin three years) Social History Childhood: born and raised [place], 2 parent home, 4 sibling, twin sister. It was good, his parents were together. He got along with his siblings, they are alive and he has a good relationship with them. Abuse/Trauma: Denies, bullied in high school. When he was [age], did some "inappropriate things to me. I should have fought back and I didn't" Current Living Situation: [facility] residential Education: high school grad, 2 yrs college for biology (had to leave b/c of winsome). he had a mental breakdown when he was in second year, he was hospitalize d at [facility] at that time. Employment: worked as a [employer] in [place]. He has not worked for the last three weeks. Social Support: mother Legal: denies Marital: single, no kids. He doesn't have a girlfriend now, he was in previous relationships before Mental Status Examination General Appearance: disheveled, appears stated age, hospital scubs/clothing Build: overweight Demeanor: withdrawn Eye Contact: poor Activity: slowed Behavior: cooperative, withdrawn Speech: slurred, rapid, spontaneous Mood: depressed, hypomanic Mood "I was taking my meds" Affect: constricted, flat, labile, disorganized Thought Process: incoherent, concrete, tangential, associative, flight of ideas Thought Content (Delusions): other (denies SI/HI, VH, endorses AH of his father) Thought Content (Other): preoccupied, ideas of reference, internal-stimuli Perception (Hallucinations): auditory (of his father, noncommand) Perception (Other): none reported Cognition (Impairment of): memory, attention/concentration Cognition(Intelligence Est.): borderline Oriented: Awake, Alert, Oriented times three Judgment: Poor Psychosis: Associations, Psychotic Perceptions Diagnoses 1. Bipolar disorder, mixed episode A-FIB/CHADSVASC A-FIB History Current/History of A-Fib/PAF?: No Current PO Anticoag Therapy: No Treatment Treatment ordered: NONE Reason Anticoagulant not given: Not indicated/[id number] Assessment Pt seen this am and laying in bed resting but arousable and asked why he was back and started mumbling rapidly not fully intelligablely some thing about his medications and me being his doctor here. Per d/c production planner insurance was not approving pt zyprexa doses his was discharged on and therefore only got zyprexa 10mg qhs. Also d/c production planner report that when adult protective agency checked on pt while he was at home after last d/c, pt not taking his medications and that they were scattered all over his apt. Adult protection agency and manager rn case recommending long acting injectable to aid with med compliance. Pt has been on invega sustenna in the past and tolerated well with benefit so will give him one time oral dose invega then administer invega sustenna 234mg im x1 today with 156mg im 3 days later provided he tolerates oral invega. Pt is agreeable. Denies SI/HI. Appears to be in mixed manic state. Initial Treatment Plan 1. Patient was admitted on a 9.39 status. 2. Complete history was obtained. 3. With patients permission, family will be contacted and database will be expanded. 4. Patients medication regimen will be reviewed and changed accordingly. 5. Patient will be provided with protected environment. 6. Patient will be treated with individual, group, and milieu therapies. 7. Patient will receive supportive psych-education. 8. Discharge planning will commence immediately. 9. Outpatient follow-up treatment will be strongly recommended. 10. The initial treatment plan will focus initially on: * Depression. * Risk for suicide. 11. restart trileptal 600mg bid, zyprexa to 10mg qam and noon and 20mg qhs. seroquel 200mg qhs, trazodone 50mg qhs prn insomnia, invega 3mg x1 then invega sustenna 234mg im followed by 156mg im 01/06/19 12. trileptal level ESTIMATED LENGTH OF STAY: 7-10 DAYS. TIME SPENT COUNSELING AND COORDINATING INITIAL CARE: 60 minutes. Vital Signs Vital Signs Date Time Temp Pulse Resp B/P (MAP) Pulse Ox O2 Delivery O2 Flow Rate FiO2 01/03/19 06:02 98.5 83 14 142/92 (109) 01/03/19 05:35 95 Room Air Laboratory Data 24H Labs Laboratory Tests 2 01/03/19 03:30: Bedside Glucose (Misc Panel) 98 01/03/19 07:44: Bedside Glucose (Misc Panel) 119H Medications Scheduled Amlodipine Besylate (Amlodipine Besylate) 10 Mg Tablet, 10 MG PO DAILY, (Reported) Atorvastatin Calcium (Atorvastatin Calcium) 20 Mg Tab, 20 MG PO QHS, (Reported) Benztropine Mesylate (Benztropine Mesylate) 1 Mg Tablet, 1 MG PO DAILY, (Reported) Docusate Sodium (Docusate Sodium) 100 Mg Capsule, 100 MG PO BID, (Reported) Gabapentin (Gabapentin) 600 Mg Tab, 600 MG PO BID, (Reported) Insulin Aspart (Novolog Flexpen) 100 Unit/1 Ml Insuln.pen, 1 UNITS SC TID, (Reported) PER SLIDING SCALE Levothyroxine Sodium (Levothyroxine Sodium) 100 Mcg Tab, 100 MCG PO DAILY, (Reported) Lisinopril (Lisinopril) 20 Mg Tablet, 20 MG PO DAILY, (Reported) [place] Carbonate ([place] Carbonate) 300 Mg Tablet, 600 MG PO QAM for , (Reported) [place] Carbonate ([place] Carbonate) 300 Mg Tablet, 900 MG PO QPM for , (Reported) Olanzapine (Olanzapine) 10 Mg Tablet, 10 MG PO DAILY, (Reported) Oxcarbazepine (Oxcarbazepine) 300 Mg Tablet, 600 MG PO BID, (Reported) Quetiapine Fumarate (Quetiapine Fumarate) 200 Mg Tablet, 200 MG PO QHS, (Reported) Scheduled PRN Trazodone HCl (Trazodone HCl) 50 Mg Tablet, 50 MG PO QHS PRN for INSOMNIA, (Reported) Miscellaneous Medications [Patient Comments] , (Reported) PATIENT AWARE OF MEDICATIONS BUT NOT SURE WHEN HE LAST TOOK THEM. WILL VERIFY MEDICATION WITH PHARMACY WHEN IT OPENS Allergies Coded Allergies: Penicillins (Verified Allergy, Intermediate, rash, 01/02/19) divalproex sodium (Verified Allergy, Unknown, 01/02/19) CLAIR STEIN DO Jan 03, 2019 9:57 am
[2019-01-03] MEDS ORDERED: PALIPERIDONE PALMITATE 234MG/1.5ML INJ (INVEGA)(J2426)(FREE PSY INPT ONLY) IM ONE (13:00)
[2019-01-03] MEDS ORDERED: PALIPERIDONE 3 MG ER TAB (INVEGA) PO ONE (13:00)
--- NOTE | 2019-01-03 14:47 | HPEPDOC ---
[facility] Medical History & Physical Date of Admission Jan 03, 2019 Date of Service: Jan 03, 2019 History and Physical CHIEF COMPLAINT: Bizarre behavior HISTORY OF PRESENT ILLNESS: Patient is a 48-year-old male with past medical history of bipolar 1 disorder, DM, HTN, Hypothyroidism? and documented Schizoaffective disorder from previous admission was transferred here from [facility] for bizarre behavior. Unable to obtain from patient an accurate history as he selectively answers some questions and offered tangential responses to the rest of the questions. He initially complaints of pain in his fingers and multiple areas in his body but then denies having any discomfort at all seconds later. States that he feels fine as of this time and also reports no suicidal ideation. PAST MEDICAL HISTORY: Refer to HPI PAST SURGICAL HISTORY: Tonsillectomy SOCIAL HISTORY: Denies tobacco, alcohol or illicit drug use. FAMILY HISTORY: Mother and grandmother also had Bipolar ALLERGIES: Please see below. REVIEW OF SYSTEMS: 10 point review of system negative except as stated in HPI HOME MEDICATIONS: Please see below. PHYSICAL EXAMINATION: General: No acute distress. Alert but appears tired with limited eye contact. Eyes: Normal sclera, EOMI HENT: Atraumatic Cardiovascular: Normal rate, normal rhythm. Pulmonary: Clear to auscultation b/l, no wheezing GI: Soft, nontender Skin: Warm and dry Neuro: CN grossly intact. No focal deficits. Psych: Tangential. Inappropriate answers to many questions. LABORATORY DATA: See below. MICROBIOLOGY: Please see below. ASSESSMENT AND PLAN: 1. Bipolar disorder - c/w evaluation and treatment per psych. 2. DM - Resume home medications. - Looks like he's on sliding scale insulin TID only at home? - Monitor and adjust as needed. May be ok with just ISS. 3. HTN - Resume home meds. - BP 140s at this time, does not need any changes to current regimen. 4. Hypothyroidism? - No reported history but noted to be on synthroid. - Check TSH, Resume home dose. Will continue to check on patient tomorrow to assess blood sugar and blood pressure on current regimen. Vital Signs Vital Signs Date Time Temp Pulse Resp B/P (MAP) Pulse Ox O2 Delivery O2 Flow Rate FiO2 01/03/19 09:57 96 141/89 01/03/19 06:02 98.5 14 01/03/19 05:35 95 Room Air Laboratory Data Labs 24H Laboratory Tests 2 01/03/19 03:30: Bedside Glucose (Misc Panel) 98 01/03/19 07:44: Bedside Glucose (Misc Panel) 119H 01/03/19 10:01: 01/03/19 11:46: Bedside Glucose (Misc Panel) 130H Home Medications Scheduled Amlodipine Besylate (Amlodipine Besylate) 10 Mg Tablet, 10 MG PO DAILY Atorvastatin Calcium (Atorvastatin Calcium) 20 Mg Tab, 20 MG PO QHS Benztropine Mesylate (Benztropine Mesylate) 1 Mg Tablet, 1 MG PO DAILY Docusate Sodium (Docusate Sodium) 100 Mg Capsule, 100 MG PO BID Gabapentin (Gabapentin) 600 Mg Tab, 600 MG PO BID Insulin Aspart (Novolog Flexpen) 100 Unit/1 Ml Insuln.pen, 1 UNITS SC TID PER SLIDING SCALE Levothyroxine Sodium (Levothyroxine Sodium) 100 Mcg Tab, 100 MCG PO DAILY Lisinopril (Lisinopril) 20 Mg Tablet, 20 MG PO DAILY [place] Carbonate ([place] Carbonate) 300 Mg Tablet, 600 MG PO QAM for [place] Carbonate ([place] Carbonate) 300 Mg Tablet, 900 MG PO QPM for Olanzapine (Olanzapine) 10 Mg Tablet, 10 MG PO DAILY Oxcarbazepine (Oxcarbazepine) 300 Mg Tablet, 600 MG PO BID Quetiapine Fumarate (Quetiapine Fumarate) 200 Mg Tablet, 200 MG PO QHS Scheduled PRN Trazodone HCl (Trazodone HCl) 50 Mg Tablet, 50 MG PO QHS PRN for INSOMNIA Miscellaneous Medications [Patient Comments] PATIENT AWARE OF MEDICATIONS BUT NOT SURE WHEN HE LAST TOOK THEM. WILL VERIFY MEDICATION WITH PHARMACY WHEN IT OPENS Allergies Coded Allergies: Penicillins (Verified Allergy, Intermediate, rash, 01/02/19) divalproex sodium (Verified Allergy, Unknown, 01/02/19) A-FIB/CHADSVASC A-FIB History Current/History of A-Fib/PAF?: No Current PO Anticoag Therapy: No CHALO GARCIA MD Jan 03, 2019 14:47
[2019-01-03] MEDS ORDERED: LEVOTHYROXINE 100MCG TABLET (0.1MG) PO ONE (15:00)
[2019-01-03 16:49] VITALS: BP 128/90
[2019-01-03 17:13] LABS: HEMATOCRIT 46.1 % (42.0-52.0); HEMOGLOBIN 15.3 g/dl (13.5-17.5); MEAN CORPUSCULAR HEMOGLOBIN 28.1 pg (27.0-33.0); MEAN CORPUSCULAR HGB CONC 33.2 g/dl (32.0-36.5); MEAN CORPUSCULAR VOLUME 84.6 fl (80.0-96.0); PLATELET COUNT, AUTOMATED 332 10^3/uL (150-450); RED BLOOD COUNT 5.45 10^6/uL (4.30-6.10); WHITE BLOOD COUNT 11.2 10^3/uL (4.0-10.0)
[2019-01-03 17:31] LABS: BLOOD UREA NITROGEN 13 MG/DL (7-18); CARBON DIOXIDE LEVEL 26 MEQ/L (21-32); CHLORIDE LEVEL 106 MEQ/L (98-107); CREATININE FOR GFR 0.76 MG/DL (0.70-1.30); GLOMERULAR FILTRATION RATE > 60.0 (>56); GLUCOSE, FASTING 126 MG/DL (70-100); POTASSIUM SERUM 4.3 MEQ/L (3.5-5.1); SODIUM LEVEL 141 MEQ/L (136-145)
[2019-01-03] MEDS: QUEtiapine FUMARATE 200 MG TAB PO SCH (21:53)
[2019-01-03] MEDS: ATORVASTATIN 20 MG TAB PO SCH (21:54)
[2019-01-03] MEDS: OXcarbazepine 300 MG TAB PO SCH (21:54)
[2019-01-03] MEDS: OLANZapine 10 MG TAB PO SCH (21:55)
[2019-01-04] MEDS: BENZTROPINE 0.5 MG TAB PO PRN (05:36)
[2019-01-04] MEDS: LEVOTHYROXINE 100MCG TABLET (0.1MG) PO SCH (05:36)
[2019-01-04 06:39] VITALS: BP 139/82
[2019-01-04] MEDS: HumaLOG INSULIN (NovoLOG) PER UNIT SC SCH ×4 (07:40→21:00)
[2019-01-04] MEDS: NICOTINE 21MG/24HR 1 EA TRANSDERMAL TD SCH (08:04)
[2019-01-04] MEDS: metFORMIN (GLUCOPHAGE) 1000 MG TABLET PO SCH ×2 (08:04→17:13)
[2019-01-04] MEDS: GABAPENTIN 300 MG CAP PO SCH ×2 (08:06→21:01)
[2019-01-04] MEDS: amLODIPine 10 MG TAB PO SCH (08:06)
[2019-01-04] MEDS: OXcarbazepine 300 MG TAB PO SCH ×2 (08:06→21:02)
[2019-01-04] MEDS: lisinopriL 20 MG TAB PO SCH (08:06)
[2019-01-04] MEDS ORDERED: OLANZapine 10 MG TAB PO SCH (09:00)
[2019-01-04] MEDS ORDERED: FLUBLOK(EGG FREE)(QUAD)INFLUENZA VACC 0.5ML SYRINGE (90682)18YRS&OLDER IM ONE (09:00)
[2019-01-04] MEDS ORDERED: LORazepam 2 MG TAB PO PRN (10:00)
[2019-01-04] MEDS: CEPACOL LOZENGE PO PRN ×3 (10:09→19:04)
--- NOTE | 2019-01-04 11:03 | MHIPNPDOC ---
[facility] Progress Note Progress Note DATE OF SERVICE: 01/04/19 HISTORY: Patient is a 48 -year-old , male, with psych history of bipolar 1 disorder, multiple admission [facility] and elsewhere ([facility] [place]) in the past, recently d/c [facility] 12/28/18 for winsome with psychosis who who was transfered from [facility] after sent there by his outpt provider for bizarre behavior, winsome, disorganization, hyperverbal speech, endorsing non command AH of "my father" in the ED. Pt appeared manic and disorganized with nonsensical speech per [facility] ED when evaluated there. Pt is a poor historian so history gathered from previous records. Pt seen this am and laying in bed resting but arousable and asked why he was back and started mumbling rapidly not fully intelligablely some thing about his medications and me being his doctor here. Per d/c mechanical planner insurance was not approving pt zyprexa doses his was discharged on and therefore only got zyprexa 10mg qhs. Also d/c mechanical planner report that when adult protective agency checked on pt while he was at home after last d/c, pt not taking his medications and that they were scattered all over his apt. Adult protection agency and manager case management recommending long acting injectable to aid with med compliance. Pt has been on invega sustenna in the past and tolerated well with benefit so will give him one time oral dose invega then administer invega sustenna 234mg im x1 today with 156mg im 3 days later provided he tolerates oral invega. Pt is agreeable. Denies SI/HI. Appears to be in mixed manic state. VITAL SIGNS: See below. NEW TEST RESULTS: See below. CURRENT MEDICATIONS: See below. MENTAL STATUS EXAMINATION: General: clean, dressed in his own clothes Speech: less rapid and more coherent Thought processes:more linear and logical and coherent MSK: improved Psychomotor agitation Thought content: less associate Abstract reasoning, and computation: [place] Description of associations: less Loose, associative Description of abnormal or psychotic thoughts: Denies any suicidal or homicidal thoughts and AVH Judgment: improving Insight: improving Orientation: Alert and orientated 3 Cognition: Grossly normal Recent and remote memory: fair Attention span and concentration: improving Fund of knowledge: below average Mood: "alright" Affect: less manic and more appropriate DIAGNOSES: Bipolar disorder, type 1, most recent episode manic. ASSESSMENT:Pt seen today and states he feels he's doing better and less manic now that his back on his scheduled medicine he was last d/c on 1wk prior. Per treatment team, pt's insurance was not providing him with all the doses of zyprexa he need daily and were just allowing him to have 10mg qhs which was less than half the amount (40mg/day) of zyprexa he had been taking during prior hospitalization. He appears more euthymic and normal, full, appropriate range today. His speech is much less hyperverbal. He received invega sustenna 234mg im yesterday which he states he tolerated well and will schedule him for invega sustenna 156mg im and smily today although still smiles quite frequently mostly to his own statements and is beyond that of normal smiling. Pt, per staff, is not agitated or confused during the night during this admission. His thoughts are more linear, logical, and coherent. He is able to stay quiet and listen and ask reasonable/logical questions when seen. His speech less rapid today. He denies SI/HI, VH. Pt feels safe here. MANAGEMENT PLAN: continue current plan. trileptal level pending trileptal 600mg bid zyprexa to 10mg qam and noon and 20mg qhs ativan 1mg q6hr prn anxiety/agitation zyprexa zydis 5mg q6hr prn anxiety/agitation seroquel 200mg qhs haldol 10mg tid TIME SPENT: 30 minutes. Vital Signs Vital Signs Date Time Temp Pulse Resp B/P (MAP) Pulse Ox O2 Delivery O2 Flow Rate FiO2 01/04/19 08:06 103 137/79 01/04/19 06:39 98.3 14 01/03/19 05:35 95 Room Air Laboratory Data 24H Labs Laboratory Tests 2 01/03/19 11:46: Bedside Glucose (Misc Panel) 130H 01/03/19 16:24: Nucleated Red Blood Cells % (auto) 0.0, Anion Gap 9, Glomerular Filtration Rate > 60.0, Blood Urea Nitrogen 13, Creatinine 0.76, Sodium Level 141, Potassium Level 4.3, Chloride Level 106, Carbon Dioxide Level 26, Calcium Level 9.0, Thyroid Stimulating Hormone (TSH) 1.930 01/03/19 17:03: Bedside Glucose (Misc Panel) 118H 01/03/19 22:16: Bedside Glucose (Misc Panel) 106H 01/04/19 05:35: Bedside Glucose (Misc Panel) 152H 01/04/19 07:37: Bedside Glucose (Misc Panel) 127H CBC/BMP Laboratory Tests 01/03/19 16:24 Red Blood Count 5.45, Mean Corpuscular Volume 84.6, Mean Corpuscular Hemoglobin 28.1, Mean Corpuscular Hemoglobin Concent 33.2, Red Cell Distribution Width 13.1, Calcium Level 9.0 Current Medications Current Medications Medications (Trade) Dose Ordered Sig/Kailey Route PRN Reason Start Time Stop Time Status Last Admin Dose Admin Acetaminophen (Tylenol Tab) 650 mg Q6HP PRN PO HEADACHE or DISCOMFORT 01/03/19 05:00 01/03/19 19:01 Al Hydrox/Mg Hydrox/Simethicone (Mylanta) 30 ml Q4HP PRN PO HEARTBURN/INDIGESTION 01/03/19 05:00 Amlodipine Besylate (Norvasc) 10 mg DAILY PO 01/03/19 09:00 01/04/19 08:06 Atorvastatin Calcium (Lipitor) 20 mg QHS PO 01/03/19 21:00 01/03/19 21:54 Benztropine Mesylate (Cogentin) 0.5 mg BIDP PRN PO EPS 01/03/19 22:30 01/04/19 05:36 Cetylpyridinium Chloride (Cepacol) 1 pranav Q4HP PRN PO SORE THROAT 01/04/19 10:00 01/04/19 10:09 Dextrose (Dextrose 50%) 25 ml ASDIRECTED PRN IV SEE LABEL COMMENTS 01/03/19 05:00 Gabapentin (Neurontin) 600 mg BID PO 01/03/19 09:00 01/04/19 08:06 Glucagon (Glucagon) 1 mg ASDIRECTED PRN SC SEE LABEL COMMENTS 01/03/19 05:00 Glucose (Glucose) 16 GM ASDIRECTED PRN PO SEE LABEL COMMENTS 01/03/19 05:00 Home Med (Med Rec Complete!) ASDIRECTED XX 01/03/19 05:45 01/03/19 06:07 DC Insulin Human Lispro (HumaLOG INSULIN) See Protocol Table AC SC 01/03/19 07:30 01/04/19 07:40 Insulin Human Lispro (HumaLOG INSULIN) See Protocol Table QHS SC 01/03/19 21:00 Levothyroxine Sodium (Synthroid) 100 mcg DAILY@0600 PO 01/04/19 06:00 01/04/19 05:36 Lisinopril (Prinivil) 20 mg DAILY PO 01/03/19 09:00 01/04/19 08:06 Lorazepam (Ativan) 2 mg Q4HP PRN IM AGITATION 01/03/19 09:45 01/04/19 10:01 DC Lorazepam (Ativan) 2 mg Q4HP PRN PO ANXIETY/AGITATION 01/04/19 10:00 01/04/19 10:09 Magnesium Hydroxide (Milk Of Magnesia) 30 ml DAILYPRN PRN PO CONSTIPATION 01/03/19 05:00 Metformin HCl (Glucophage) 1,000 mg BID@08,18 PO 01/04/19 08:00 01/04/19 08:04 Nicotine (Nicoderm Cq 21mg) 1 patch DAILY TD 01/03/19 09:00 Olanzapine (ZyPREXA ZYDIS) 5 mg Q4HP PRN PO AGITATION 01/03/19 05:00 Olanzapine (ZyPREXA) 10 mg DAILY PO 01/04/19 09:00 01/04/19 08:06 Olanzapine (ZyPREXA) 20 mg QHS PO 01/03/19 21:00 01/03/19 21:55 Oxcarbazepine (Trileptal) 600 mg BID PO 01/03/19 21:00 01/04/19 08:06 Quetiapine Fumarate (SEROquel) 200 mg QHS PO 01/03/19 21:00 01/03/19 21:53 Trazodone HCl (Desyrel) 50 mg QHSP PRN PO INSOMNIA 01/03/19 05:00 Allergies Coded Allergies: Penicillins (Verified Allergy, Intermediate, rash, 01/02/19) divalproex sodium (Verified Allergy, Unknown, 01/02/19) CLAIR STEIN DO Jan 04, 2019 11:03 am
[2019-01-04] MEDS: OLANZapine 10 MG TAB PO SCH ×2 (12:02→21:02)
--- NOTE | 2019-01-04 16:05 | IPNPDOC ---
Date Seen The patient was seen on 01/04/19. Progress Note SUBJECTIVE: Patient appeared unchanged and constantly mumbles. Answer some questions appropriately and go off in tangent with others. States that he slept for more than 200 hours yesterday when asked if he has anything bothering hiim. Afebrile overnight. BS does go up to about 150s. OBJECTIVE PHYSICAL EXAMINATION: General: No acute distress. Alert but appears tired with limited eye contact. Eyes: Normal sclera, EOMI HENT: Atraumatic Cardiovascular: Normal rate, normal rhythm. Pulmonary: Clear to auscultation b/l, no wheezing GI: Soft, nontender Skin: Warm and dry Neuro: CN grossly intact. No focal deficits. Psych: Tangential. Inappropriate answers to many questions. LABORATORY DATA, IMAGING STUDIES, MICROBIOLOGY: Please see below. ASSESSMENT AND PLAN: 1. Bipolar disorder - c/w evaluation and treatment per psych. 2. DM - Resume home medications. - Metformin resumed as well as ISS. - Monitor and adjust as needed. 3. HTN - Resume home meds. 4. Hypothyroidism? - No reported history but noted to be on synthroid. - TSH satisfactory, Resume home dose. 5. Tachycardia - Mild 90-100s with mild leukocytosis, no clear evidence of infection however. - Recheck CBC in AM. May be 2/2 dehydration. Will continue to check on patient tomorrow. CBC/BMP ordered for AM. VS, I&O, 24H, Fishbone Vital Signs/I&O Vital Signs Date Time Temp Pulse Resp B/P (MAP) Pulse Ox O2 Delivery O2 Flow Rate FiO2 01/04/19 08:06 103 137/79 01/04/19 06:39 98.3 14 01/03/19 05:35 95 Room Air Laboratory Data 24H LABS Laboratory Tests 2 01/03/19 16:24: Nucleated Red Blood Cells % (auto) 0.0, Anion Gap 9, Glomerular Filtration Rate > 60.0, Blood Urea Nitrogen 13, Creatinine 0.76, Sodium Level 141, Potassium Level 4.3, Chloride Level 106, Carbon Dioxide Level 26, Calcium Level 9.0, Thyroid Stimulating Hormone (TSH) 1.930 01/03/19 17:03: Bedside Glucose (Misc Panel) 118H 01/03/19 22:16: Bedside Glucose (Misc Panel) 106H 01/04/19 05:35: Bedside Glucose (Misc Panel) 152H 01/04/19 07:37: Bedside Glucose (Misc Panel) 127H 01/04/19 11:59: Bedside Glucose (Misc Panel) 114H CBC/BMP Laboratory Tests 01/03/19 16:24 Red Blood Count 5.45, Mean Corpuscular Volume 84.6, Mean Corpuscular Hemoglobin 28.1, Mean Corpuscular Hemoglobin Concent 33.2, Red Cell Distribution Width 13.1, Calcium Level 9.0 CHALO GARCIA MD Jan 04, 2019 16:05
[2019-01-04 16:46] VITALS: BP 129/72
[2019-01-04] MEDS: QUEtiapine FUMARATE 200 MG TAB PO SCH (21:01)
[2019-01-04] MEDS: ATORVASTATIN 20 MG TAB PO SCH (21:01)
[2019-01-05] MEDS: CEPACOL LOZENGE PO PRN ×2 (04:54→19:37)
[2019-01-05] MEDS: LEVOTHYROXINE 100MCG TABLET (0.1MG) PO SCH (06:07)
[2019-01-05 06:30] VITALS: BP 149/95
[2019-01-05] MEDS: HumaLOG INSULIN (NovoLOG) PER UNIT SC SCH ×4 (06:34→20:09)
[2019-01-05 07:24] LABS: HEMATOCRIT 42.1 % (42.0-52.0); HEMOGLOBIN 14.4 g/dl (13.5-17.5); MEAN CORPUSCULAR HEMOGLOBIN 29.1 pg (27.0-33.0); MEAN CORPUSCULAR HGB CONC 34.2 g/dl (32.0-36.5); MEAN CORPUSCULAR VOLUME 85.2 fl (80.0-96.0); PLATELET COUNT, AUTOMATED 221 10^3/uL (150-450); RED BLOOD COUNT 4.94 10^6/uL (4.30-6.10); WHITE BLOOD COUNT 8.7 10^3/uL (4.0-10.0)
[2019-01-05 07:54] LABS: BLOOD UREA NITROGEN 11 MG/DL (7-18); CALCIUM LEVEL 8.1 MG/DL (8.5-10.1); CARBON DIOXIDE LEVEL 29 MEQ/L (21-32); CHLORIDE LEVEL 100 MEQ/L (98-107); GLOMERULAR FILTRATION RATE > 60.0 (>56); GLUCOSE, FASTING 109 MG/DL (70-100); POTASSIUM SERUM 3.7 MEQ/L (3.5-5.1); SODIUM LEVEL 137 MEQ/L (136-145)
[2019-01-05] MEDS: GABAPENTIN 300 MG CAP PO SCH ×2 (08:12→20:48)
[2019-01-05] MEDS: lisinopriL 20 MG TAB PO SCH (08:12)
[2019-01-05] MEDS: metFORMIN (GLUCOPHAGE) 1000 MG TABLET PO SCH ×2 (08:12→17:16)
[2019-01-05] MEDS: OXcarbazepine 300 MG TAB PO SCH ×2 (08:12→20:48)
[2019-01-05] MEDS: NICOTINE 21MG/24HR 1 EA TRANSDERMAL TD SCH (08:12)
[2019-01-05] MEDS: OLANZapine 10 MG TAB PO SCH ×3 (08:12→20:48)
[2019-01-05] MEDS: amLODIPine 10 MG TAB PO SCH (08:12)
[2019-01-05] MEDS ORDERED: lisinopriL 20 MG TAB PO ONE (09:00)
--- NOTE | 2019-01-05 11:11 | MHIPNPDOC ---
[facility] Progress Note Progress Note DATE OF SERVICE: 01/05/19 HISTORY: Patient is a 48 -year-old , male, with psych history of bipolar 1 disorder, multiple admission [facility] and elsewhere ([facility] [place]) in the past, recently d/c [facility] 12/28/18 for winsome with psychosis who who was transfered from [facility] after sent there by his outpt provider for bizarre behavior, winsome, disorganization, hyperverbal speech, endorsing non command AH of "my father" in the ED. Pt appeared manic and disorganized with nonsensical speech per [facility] ED when evaluated there. Pt is a poor historian so history gathered from previous records. Pt seen this am and laying in bed resting but arousable and asked why he was back and started mumbling rapidly not fully intelligablely some thing about his medications and me being his doctor here. Per d/c brand planner insurance was not approving pt zyprexa doses his was discharged on and therefore only got zyprexa 10mg qhs. Also d/c brand planner report that when adult protective agency checked on pt while he was at home after last d/c, pt not taking his medications and that they were scattered all over his apt. Adult protection agency and pillowcase cleaner recommending long acting injectable to aid with med compliance. Pt has been on invega sustenna in the past and tolerated well with benefit so will give him one time oral dose invega then administer invega sustenna 234mg im x1 today with 156mg im 3 days later provided he tolerates oral invega. Pt is agreeable. Denies SI/HI. Appears to be in mixed manic state. VITAL SIGNS: See below. NEW TEST RESULTS: triletal level day after admission 1 which reflects pt med noncompliance on it. CURRENT MEDICATIONS: See below. MENTAL STATUS EXAMINATION: General: clean, dressed in his own clothes Speech: less rapid and more coherent Thought processes:more linear and logical and coherent MSK: improved Psychomotor agitation Thought content: less associate Abstract reasoning, and computation: [place] Description of associations: less Loose, associative Description of abnormal or psychotic thoughts: Denies any suicidal or homicidal thoughts and AVH Judgment: improving Insight: improving Orientation: Alert and orientated 3 Cognition: Grossly normal Recent and remote memory: fair Attention span and concentration: improving Fund of knowledge: below average Mood: "doing better" Affect: less manic and more appropriate DIAGNOSES: Bipolar disorder, type 1, most recent episode manic. ASSESSMENT:Pt seen today and states he feels his winsome is improving and believes he slept 5hrs last night. Thinks though that he slept walk during the night either the night prior or last night after being told by nursing that he did and was put to back to bed by nursing staff, denies he remembers having slept walk. Per treatment team, pt's insurance was not providing him with all the doses of zyprexa he need daily and were just allowing him to have 10mg qhs which was less than half the amount (40mg/day) of zyprexa he had been taking during prior hospitalization. He appears more euthymic and normal, full, appropriate range today. His speech is more hyperverbal today and mildly tangential. He feels initial dose of invega sustenna beneficial and is agreeable to invega sustenna 156mg im . Pt, per staff, is not agitated or confused during the night during this admission. His thoughts are slightly tangential but are coherent. He denies SI/HI, VH. Pt feels safe here. MANAGEMENT PLAN: continue current plan. trileptal 600mg bid zyprexa to 10mg qam and noon and 20mg qhs ativan 1mg q6hr prn anxiety/agitation zyprexa zydis 5mg q6hr prn anxiety/agitation seroquel 200mg qhs haldol 10mg tid invega sustenna 234mg im x1 01/03/19 invega sustenna 156mg im x1 01/06/19 TIME SPENT: 30 minutes. Vital Signs Vital Signs Date Time Temp Pulse Resp B/P (MAP) Pulse Ox O2 Delivery O2 Flow Rate FiO2 01/05/19 09:19 154/72 01/05/19 08:12 85 01/05/19 06:30 97.0 12 01/03/19 05:35 95 Room Air Laboratory Data 24H Labs Laboratory Tests 2 01/04/19 11:59: Bedside Glucose (Misc Panel) 114H 01/04/19 16:56: Bedside Glucose (Misc Panel) 94 01/04/19 20:15: Bedside Glucose (Misc Panel) 116H 01/05/19 06:30: Bedside Glucose (Misc Panel) 101 01/05/19 07:11: Nucleated Red Blood Cells % (auto) 0.0, Anion Gap 8, Glomerular Filtration Rate > 60.0, Blood Urea Nitrogen 11, Creatinine 0.70, Sodium Level 137, Potassium Level 3.7, Chloride Level 100, Carbon Dioxide Level 29, Calcium Level 8.1L CBC/BMP Laboratory Tests 01/05/19 07:11 Red Blood Count 4.94, Mean Corpuscular Volume 85.2, Mean Corpuscular Hemoglobin 29.1, Mean Corpuscular Hemoglobin Concent 34.2, Red Cell Distribution Width 12.6, Calcium Level 8.1 L Current Medications Current Medications Medications (Trade) Dose Ordered Sig/Kailey Route PRN Reason Start Time Stop Time Status Last Admin Dose Admin Acetaminophen (Tylenol Tab) 650 mg Q6HP PRN PO HEADACHE or DISCOMFORT 01/03/19 05:00 01/03/19 19:01 Al Hydrox/Mg Hydrox/Simethicone (Mylanta) 30 ml Q4HP PRN PO HEARTBURN/INDIGESTION 01/03/19 05:00 Amlodipine Besylate (Norvasc) 10 mg DAILY PO 01/03/19 09:00 01/05/19 08:12 Atorvastatin Calcium (Lipitor) 20 mg QHS PO 01/03/19 21:00 01/04/19 21:01 Benztropine Mesylate (Cogentin) 0.5 mg BIDP PRN PO EPS 01/03/19 22:30 01/04/19 05:36 Cetylpyridinium Chloride (Cepacol) 1 pranav Q4HP PRN PO SORE THROAT 01/04/19 10:00 01/05/19 04:54 Dextrose (Dextrose 50%) 25 ml ASDIRECTED PRN IV SEE LABEL COMMENTS 01/03/19 05:00 Gabapentin (Neurontin) 600 mg BID PO 01/03/19 09:00 01/05/19 08:12 Glucagon (Glucagon) 1 mg ASDIRECTED PRN SC SEE LABEL COMMENTS 01/03/19 05:00 Glucose (Glucose) 16 GM ASDIRECTED PRN PO SEE LABEL COMMENTS 01/03/19 05:00 Home Med (Med Rec Complete!) ASDIRECTED XX 01/03/19 05:45 01/03/19 06:07 DC Insulin Human Lispro (HumaLOG INSULIN) See Protocol Table AC SC 01/03/19 07:30 01/05/19 06:34 Insulin Human Lispro (HumaLOG INSULIN) See Protocol Table QHS SC 01/03/19 21:00 Levothyroxine Sodium (Synthroid) 100 mcg DAILY@0600 PO 01/04/19 06:00 01/05/19 06:07 Lisinopril (Prinivil) 20 mg DAILY PO 01/03/19 09:00 01/05/19 08:45 DC 01/05/19 08:12 Lisinopril (Prinivil) 40 mg DAILY PO 01/06/19 09:00 Lorazepam (Ativan) 2 mg Q4HP PRN IM AGITATION 01/03/19 09:45 01/04/19 10:01 DC Lorazepam (Ativan) 2 mg Q4HP PRN PO ANXIETY/AGITATION 01/04/19 10:00 01/04/19 10:09 Magnesium Hydroxide (Milk Of Magnesia) 30 ml DAILYPRN PRN PO CONSTIPATION 01/03/19 05:00 Metformin HCl (Glucophage) 1,000 mg BID@0818 PO 01/04/19 08:00 01/05/19 08:12 Nicotine (Nicoderm Cq 21mg) 1 patch DAILY TD 01/03/19 09:00 Olanzapine (ZyPREXA ZYDIS) 5 mg Q4HP PRN PO AGITATION 01/03/19 05:00 Olanzapine (ZyPREXA) 10 mg BID@0900,1200 PO 01/04/19 12:00 01/05/19 08:12 Olanzapine (ZyPREXA) 10 mg DAILY PO 01/04/19 09:00 01/04/19 11:05 DC 01/04/19 08:06 Olanzapine (ZyPREXA) 20 mg QHS PO 01/03/19 21:00 01/04/19 21:02 Oxcarbazepine (Trileptal) 600 mg BID PO 01/03/19 21:00 01/05/19 08:12 Quetiapine Fumarate (SEROquel) 200 mg QHS PO 01/03/19 21:00 01/04/19 21:01 Trazodone HCl (Desyrel) 50 mg QHSP PRN PO INSOMNIA 01/03/19 05:00 Allergies Coded Allergies: Penicillins (Verified Allergy, Intermediate, rash, 01/02/19) divalproex sodium (Verified Allergy, Unknown, 01/02/19) CLAIR STEIN DO Jan 05, 2019 9:51 am
--- NOTE | 2019-01-05 14:30 | IPNPDOC ---
Date Seen The patient was seen on 01/05/19. Progress Note SUBJECTIVE: Patient appeared much more alert and energetic today. States that he feels better but goes off on tangent when asked about anything is bothering him. WBC 11.2->8.7. Afebrile overnight. BS controlled. BP elevated 140-150s. OBJECTIVE PHYSICAL EXAMINATION: General: No acute distress. Alert. Eyes: Normal sclera, EOMI HENT: Atraumatic Cardiovascular: Normal rate, normal rhythm. Pulmonary: Clear to auscultation b/l, no wheezing GI: Soft, nontender Skin: Warm and dry Neuro: CN grossly intact. No focal deficits. Psych: Tangential. Inappropriate answers to many questions. LABORATORY DATA, IMAGING STUDIES, MICROBIOLOGY: Please see below. ASSESSMENT AND PLAN: 1. Bipolar disorder - c/w evaluation and treatment per psych. 2. DM - Resume home medications. - Metformin resumed as well as ISS. - Monitor and adjust as needed. 3. HTN - Resume home meds. - Norvasc 10 and Lisinopril started at 20. BP still elevated, Lisinopril increased to 40 mg daily. 4. Hypothyroidism? - No reported history but noted to be on synthroid. - TSH satisfactory, Resume home dose. 5. Tachycardia - Resolved. - Mild 90-100s with mild leukocytosis initially but had resolved, no clear evidence of infection. - May be 2/2 dehydration. Will check back again tomorrow. If BP improved or stable, will sign off tomorrow. VS, I&O, 24H, Fishbone Vital Signs/I&O Vital Signs Date Time Temp Pulse Resp B/P (MAP) Pulse Ox O2 Delivery O2 Flow Rate FiO2 01/05/19 09:19 154/72 01/05/19 08:12 85 01/05/19 06:30 97.0 12 01/03/19 05:35 95 Room Air Laboratory Data 24H LABS Laboratory Tests 2 01/04/19 16:56: Bedside Glucose (Misc Panel) 94 01/04/19 20:15: Bedside Glucose (Misc Panel) 116H 01/05/19 06:30: Bedside Glucose (Misc Panel) 101 01/05/19 07:11: Nucleated Red Blood Cells % (auto) 0.0, Anion Gap 8, Glomerular Filtration Rate > 60.0, Blood Urea Nitrogen 11, Creatinine 0.70, Sodium Level 137, Potassium Level 3.7, Chloride Level 100, Carbon Dioxide Level 29, Calcium Level 8.1L 01/05/19 11:41: Bedside Glucose (Misc Panel) 113H CBC/BMP Laboratory Tests 01/05/19 07:11 Red Blood Count 4.94, Mean Corpuscular Volume 85.2, Mean Corpuscular Hemoglobin 29.1, Mean Corpuscular Hemoglobin Concent 34.2, Red Cell Distribution Width 12.6, Calcium Level 8.1 L CHALO GARCIA MD Jan 05, 2019 14:30
[2019-01-05 18:00] VITALS: BP 131/82
[2019-01-05] MEDS: QUEtiapine FUMARATE 200 MG TAB PO SCH (20:48)
[2019-01-05] MEDS: ATORVASTATIN 20 MG TAB PO SCH (20:48)
[2019-01-06] MEDS: CEPACOL LOZENGE PO PRN (03:53)
[2019-01-06 06:05] VITALS: BP 135/80
[2019-01-06] MEDS: LEVOTHYROXINE 100MCG TABLET (0.1MG) PO SCH (06:05)
[2019-01-06] MEDS: HumaLOG INSULIN (NovoLOG) PER UNIT SC SCH ×4 (06:05→21:00)
[2019-01-06] MEDS: metFORMIN (GLUCOPHAGE) 1000 MG TABLET PO SCH ×2 (07:28→17:03)
[2019-01-06] MEDS: NICOTINE 21MG/24HR 1 EA TRANSDERMAL TD SCH (08:35)
[2019-01-06] MEDS: OLANZapine 10 MG TAB PO SCH ×3 (08:39→21:57)
[2019-01-06] MEDS: OXcarbazepine 300 MG TAB PO SCH ×2 (08:40→21:57)
[2019-01-06] MEDS: GABAPENTIN 300 MG CAP PO SCH ×2 (08:40→21:56)
[2019-01-06] MEDS: amLODIPine 10 MG TAB PO SCH (08:40)
[2019-01-06] MEDS: lisinopriL 20 MG TAB PO SCH (08:41)
--- NOTE | 2019-01-06 08:53 | MHIPNPDOC ---
[facility] Progress Note Progress Note DATE OF SERVICE: 01/06/19 HISTORY: Patient is a 48 -year-old , male, with psych history of bipolar 1 disorder, multiple [place] [facility] [place] [place] the [place], recently d/c [facility] 12/28/18 for winsome with psychosis [place] [facility] [place] outpt provider for bizarre behavior, winsome, disorganization, hyperverbal speech, endorsing non command AH of "my father" in the ED. Pt appeared manic and disorganized with nonsensical speech per [facility] ED when evaluated there. Pt is a poor historian so history gathered from previous records. Pt seen this am and laying in bed resting but arousable and asked why he was back and started mumbling rapidly not fully intelligablely some thing about his medications and me being his doctor here. Per d/c environmental planner insurance was not approving pt zyprexa doses his was discharged on and therefore only got zyprexa 10mg qhs. Also d/c environmental planner report that when adult protective agency checked on pt while he was at home after last d/c, pt not taking his medications and that they were scattered all over his apt. Adult protection agency and transplant case manager recommending long acting injectable to aid with med compliance. Pt has been on invega sustenna in the past and tolerated well with benefit so will give him one time oral dose invega then administer invega sustenna 234mg im x1 today with 156mg im 3 days later provided he tolerates oral invega. Pt is agreeable. Denies SI/HI. Appears to be in mixed manic state. VITAL SIGNS: See below. NEW TEST RESULTS: triletal level day after admission 1 which reflects pt med noncompliance on it. CURRENT MEDICATIONS: See below. MENTAL STATUS EXAMINATION: General: clean, dressed in his own clothes Speech: less rapid and more coherent Thought processes:more linear and logical and coherent MSK: improved Psychomotor agitation Thought content: less associate Abstract reasoning, and computation: [place] Description of associations: less Loose, associative Description of abnormal or psychotic thoughts: Denies any suicidal or homicidal thoughts and AVH Judgment: improving Insight: improving Orientation: Alert and orientated 3 Cognition: Grossly normal Recent and remote memory: fair Attention span and concentration: improving Fund of knowledge: below average Mood: "ok" Affect: less manic and more appropriate, fatigued DIAGNOSES: Bipolar disorder, type 1, most recent episode manic. ASSESSMENT:Pt seen today and states woke up 4 times last night and is concerned about it. He did take his regular nightly medicine which has been allowing him to sleep well night thus far, will see if continues tonight prior to making any med changes and waking could have been related to events on the unit or just attributed to difficulty sleeping for one night. He does appear fatigued from disrupted sleep today. Per treatment team, pt's insurance was not providing him with all the doses of zyprexa he need daily and were just allowing him to have 10mg qhs which was less than half the amount (40mg/day) of zyprexa he had been taking during prior hospitalization. He appears more euthymic and normal, full, appropriate range today. His speech is less hyperverbal today and mildly tangential. He feels initial dose of invega sustenna beneficial and is agreeable to invega sustenna 156mg im. Per staff, pt is not agitated or confused during the night during this admission. His thoughts are slightly tangential but are coherent. He denies SI/HI, VH. Pt feels safe here. MANAGEMENT PLAN: continue current plan. trileptal 600mg bid zyprexa to 10mg qam and noon and 20mg qhs ativan 1mg q6hr prn anxiety/agitation zyprexa zydis 5mg q6hr prn anxiety/agitation seroquel 200mg qhs haldol 10mg tid invega sustenna 234mg im x1 01/03/19 invega sustenna 156mg im x1 01/06/19 TIME SPENT: 30 minutes. Vital Signs Vital Signs Date Time Temp Pulse Resp B/P (MAP) Pulse Ox O2 Delivery O2 Flow Rate FiO2 01/06/19 08:40 103 139/90 01/06/19 06:05 98.5 18 01/03/19 05:35 95 Room Air Laboratory Data 24H Labs Laboratory Tests 2 01/05/19 11:41: Bedside Glucose (Misc Panel) 113H 01/05/19 17:11: Bedside Glucose (Misc Panel) 106H 01/05/19 20:09: Bedside Glucose (Misc Panel) 138H 01/06/19 03:51: Bedside Glucose (Misc Panel) 101 01/06/19 06:04: Bedside Glucose (Misc Panel) 98 Current Medications Current Medications Medications (Trade) Dose Ordered Sig/Kailey Route PRN Reason Start Time Stop Time Status Last Admin Dose Admin Acetaminophen (Tylenol Tab) 650 mg Q6HP PRN PO HEADACHE or DISCOMFORT 01/03/19 05:00 01/03/19 19:01 Al Hydrox/Mg Hydrox/Simethicone (Mylanta) 30 ml Q4HP PRN PO HEARTBURN/INDIGESTION 01/03/19 05:00 Amlodipine Besylate (Norvasc) 10 mg DAILY PO 01/03/19 09:00 01/06/19 08:40 Atorvastatin Calcium (Lipitor) 20 mg QHS PO 01/03/19 21:00 01/05/19 20:48 Benztropine Mesylate (Cogentin) 0.5 mg BIDP PRN PO EPS 01/03/19 22:30 01/04/19 05:36 Cetylpyridinium Chloride (Cepacol) 1 pranav Q4HP PRN PO SORE THROAT 01/04/19 10:00 01/06/19 03:53 Dextrose (Dextrose 50%) 25 ml ASDIRECTED PRN IV SEE LABEL COMMENTS 01/03/19 05:00 Gabapentin (Neurontin) 600 mg BID PO 01/03/19 09:00 01/06/19 08:40 Glucagon (Glucagon) 1 mg ASDIRECTED PRN SC SEE LABEL COMMENTS 01/03/19 05:00 Glucose (Glucose) 16 GM ASDIRECTED PRN PO SEE LABEL COMMENTS 01/03/19 05:00 Home Med (Med Rec Complete!) ASDIRECTED XX 01/03/19 05:45 01/03/19 06:07 DC Insulin Human Lispro (HumaLOG INSULIN) See Protocol Table AC SC 01/03/19 07:30 01/05/19 17:16 Insulin Human Lispro (HumaLOG INSULIN) See Protocol Table QHS SC 01/03/19 21:00 Levothyroxine Sodium (Synthroid) 100 mcg DAILY@0600 PO 01/04/19 06:00 01/06/19 06:05 Lisinopril (Prinivil) 20 mg DAILY PO 01/03/19 09:00 01/05/19 08:45 DC 01/05/19 08:12 Lisinopril (Prinivil) 40 mg DAILY PO 01/06/19 09:00 01/06/19 08:41 Lorazepam (Ativan) 2 mg Q4HP PRN IM AGITATION 01/03/19 09:45 01/04/19 10:01 DC Lorazepam (Ativan) 2 mg Q4HP PRN PO ANXIETY/AGITATION 01/04/19 10:00 01/04/19 10:09 Magnesium Hydroxide (Milk Of Magnesia) 30 ml DAILYPRN PRN PO CONSTIPATION 01/03/19 05:00 Metformin HCl (Glucophage) 1,000 mg BID@08,18 PO 01/04/19 08:00 01/06/19 07:28 Nicotine (Nicoderm Cq 21mg) 1 patch DAILY TD 01/03/19 09:00 Olanzapine (ZyPREXA ZYDIS) 5 mg Q4HP PRN PO AGITATION 01/03/19 05:00 Olanzapine (ZyPREXA) 10 mg BID@0900,1200 PO 01/04/19 12:00 01/06/19 08:39 Olanzapine (ZyPREXA) 10 mg DAILY PO 01/04/19 09:00 01/04/19 11:05 DC 01/04/19 08:06 Olanzapine (ZyPREXA) 20 mg QHS PO 01/03/19 21:00 01/05/19 20:48 Oxcarbazepine (Trileptal) 600 mg BID PO 01/03/19 21:00 01/06/19 08:40 Quetiapine Fumarate (SEROquel) 200 mg QHS PO 01/03/19 21:00 01/05/19 20:48 Trazodone HCl (Desyrel) 50 mg QHSP PRN PO INSOMNIA 01/03/19 05:00 Allergies Coded Allergies: Penicillins (Verified Allergy, Intermediate, rash, 01/02/19) divalproex sodium (Verified Allergy, Unknown, 01/02/19) CLAIR STEIN DO Jan 06, 2019 8:53 am
[2019-01-06] MEDS ORDERED: PALIPERIDONE PALMITATE 156MG/1ML INJ(INVEGA)(J2426 PER 1MG)(INFUS OUTPT) IM ONE ×2 (09:00)
--- NOTE | 2019-01-06 13:56 | IPNPDOC ---
Date Seen The patient was seen on 01/06/19. Progress Note Patient had not been physically seen today. Been in group activities. BP appeared to have improved. recommend continue current regimen. Will sign off. Thank you for the consult. Please call back if further evaluation needed. CHALO GARCIA MD Jan 06, 2019 13:56
[2019-01-06 15:47] VITALS: BP 134/84
[2019-01-06] MEDS: QUEtiapine FUMARATE 200 MG TAB PO SCH (21:57)
[2019-01-06] MEDS: ATORVASTATIN 20 MG TAB PO SCH (21:57)
[2019-01-07] MEDS: LEVOTHYROXINE 100MCG TABLET (0.1MG) PO SCH (05:34)
[2019-01-07 06:17] VITALS: BP 134/79
[2019-01-07] MEDS: HumaLOG INSULIN (NovoLOG) PER UNIT SC SCH ×4 (06:53→21:00)
[2019-01-07] MEDS: metFORMIN (GLUCOPHAGE) 1000 MG TABLET PO SCH ×2 (07:26→17:06)
[2019-01-07] MEDS: OLANZapine 10 MG TAB PO SCH ×3 (08:39→21:45)
[2019-01-07] MEDS: GABAPENTIN 300 MG CAP PO SCH ×2 (08:40→21:45)
[2019-01-07] MEDS: lisinopriL 20 MG TAB PO SCH (08:40)
[2019-01-07] MEDS: OXcarbazepine 300 MG TAB PO SCH ×2 (08:40→21:44)
[2019-01-07] MEDS: amLODIPine 10 MG TAB PO SCH (08:40)
[2019-01-07] MEDS: NICOTINE 21MG/24HR 1 EA TRANSDERMAL TD SCH (08:41)
[2019-01-07 16:25] VITALS: BP_SYST 116; BP_SYST 130; BP_DIAS 64; BP_DIAS 71
[2019-01-07] MEDS: QUEtiapine FUMARATE 200 MG TAB PO SCH (21:44)
[2019-01-07] MEDS: ATORVASTATIN 20 MG TAB PO SCH (21:45)
[2019-01-08] MEDS: LEVOTHYROXINE 100MCG TABLET (0.1MG) PO SCH (06:48)
[2019-01-08 06:53] VITALS: BP 137/82
[2019-01-08] MEDS: HumaLOG INSULIN (NovoLOG) PER UNIT SC SCH ×5 (06:53→21:25)
[2019-01-08] MEDS: metFORMIN (GLUCOPHAGE) 1000 MG TABLET PO SCH ×2 (07:33→18:08)
[2019-01-08] MEDS: NICOTINE 21MG/24HR 1 EA TRANSDERMAL TD SCH (08:09)
[2019-01-08] MEDS: OLANZapine 10 MG TAB PO SCH ×3 (08:11→20:43)
[2019-01-08] MEDS: GABAPENTIN 300 MG CAP PO SCH ×2 (08:11→20:40)
[2019-01-08] MEDS: amLODIPine 10 MG TAB PO SCH (08:12)
[2019-01-08] MEDS: lisinopriL 20 MG TAB PO SCH (08:12)
[2019-01-08] MEDS: OXcarbazepine 300 MG TAB PO SCH ×2 (08:12→20:40)
--- NOTE | 2019-01-08 09:39 | MHIPN ---
DATE: 01/07/2019 CHIEF COMPLAINT: Says feels okay. SUBJECTIVE: Seen in followup in the presence of staff. Says feels okay, later suggests feels down at times, at other times better, but is vague on this. Says sleep is okay, at times takes naps. He feels his appetite has increased. MENTAL STATUS EXAM: Neat, cooperative. No agitation. No psychomotor retardation. Affect is restricted, gives short answers, but is coherent. Denies active suicidal thoughts since the time I saw him, says had had them earlier but no plans. Judgment and insight are compromised. ASSESSMENT: Bipolar disorder. PLAN: Continue current care, and observation.
[2019-01-08 16:08] VITALS: BP 119/65
[2019-01-08] MEDS: QUEtiapine FUMARATE 200 MG TAB PO SCH (20:40)
[2019-01-08] MEDS: ATORVASTATIN 20 MG TAB PO SCH (20:41)
[2019-01-08] MEDS: BENZTROPINE 0.5 MG TAB PO PRN (20:41)
[2019-01-09] MEDS: LEVOTHYROXINE 100MCG TABLET (0.1MG) PO SCH (05:53)
[2019-01-09 06:27] VITALS: BP 135/85
[2019-01-09] MEDS: OLANZapine 10 MG TAB PO SCH ×3 (08:55→23:23)
[2019-01-09] MEDS: OXcarbazepine 300 MG TAB PO SCH ×2 (08:55→23:24)
[2019-01-09] MEDS: metFORMIN (GLUCOPHAGE) 1000 MG TABLET PO SCH ×2 (08:55→17:18)
[2019-01-09] MEDS: amLODIPine 10 MG TAB PO SCH (08:55)
[2019-01-09] MEDS: lisinopriL 20 MG TAB PO SCH (08:55)
[2019-01-09] MEDS: GABAPENTIN 300 MG CAP PO SCH ×2 (08:55→23:24)
[2019-01-09] MEDS: NICOTINE 21MG/24HR 1 EA TRANSDERMAL TD SCH (09:00)
--- NOTE | 2019-01-09 11:20 | MHIPNPDOC ---
[facility] Progress Note Progress Note DATE OF SERVICE: 01/09/19 HISTORY: Patient is a 48 -year-old , male, with psych history of bipolar 1 disorder, multiple admission [facility] and elsewhere ([facility] [place] in the past, recently d/c [facility] 12/28/18 for winsome with psychosis who who [place] [facility] [place] by his outpt provider for bizarre behavior, winsome, disorganization, hyperverbal speech, endorsing non command AH of "my father" in the ED. Pt appeared manic and disorganized with nonsensical speech per [facility] ED when evaluated there. Pt is a poor historian so history gathered from previous records. Pt seen this am and laying in bed resting but arousable and asked why he was back and started mumbling rapidly not fully intelligablely some thing about his medications and me being his doctor here. Per d/c naval surface fire support planner insurance was not approving pt zyprexa doses his was discharged on and therefore only got zyprexa 10mg qhs. Also d/c naval surface fire support planner report that when adult protective agency checked on pt while he was at home after last d/c, pt not taking his medications and that they were scattered all over his apt. Adult protection agency and upper caser recommending long acting injectable to aid with med compliance. Pt has been on invega sustenna in the past and tolerated well with benefit so will give him one time oral dose invega then administer invega sustenna 234mg im x1 today with 156mg im 3 days later provided he tolerates oral invega. Pt is agreeable. Denies SI/HI. Appears to be in mixed manic state. VITAL SIGNS: See below. NEW TEST RESULTS: triletal level day after admission 1 which reflects pt med noncompliance on it. CURRENT MEDICATIONS: See below. MENTAL STATUS EXAMINATION: General: clean, dressed in his own clothes Speech: less rapid and more coherent Thought processes:more linear and logical and coherent MSK: improved Psychomotor agitation Thought content: less associate Abstract reasoning, and computation: [place] Description of associations: less Loose, associative Description of abnormal or psychotic thoughts: Denies any suicidal or homicidal thoughts and AVH Judgment: improving Insight: improving Orientation: Alert and orientated 3 Cognition: Grossly normal Recent and remote memory: fair Attention span and concentration: improving Fund of knowledge: below average Mood: "ok" Affect: less manic and more appropriate, fatigued DIAGNOSES: Bipolar disorder, type 1, most recent episode manic. ASSESSMENT:Pt seen today and states he's been sleeping during the day a lot. Advised pt to try to stay awake during the day so that he sleeps better at night and states he'll try. He is compliant on his medication and tolerating it well. Took second dose of invega sustenna over weekend and tolerated well with improvement in winsome. Per treatment team, pt's insurance was not providing him with all the doses of zyprexa he need daily and were just allowing him to have 10mg qhs which was less than half the amount (40mg/day) of zyprexa he had been taking during prior hospitalization. He appears more euthymic and normal, full, appropriate range today. His speech is less hyperverbal today and less tangential. er staff, pt is not agitated or confused during the night during this admission. His thoughts are less tangential but are coherent. He denies SI/HI, AVH. Pt feels safe here. MANAGEMENT PLAN: continue current plan. trileptal 600mg bid zyprexa to 10mg qam and noon and 20mg qhs ativan 1mg q6hr prn anxiety/agitation zyprexa zydis 5mg q6hr prn anxiety/agitation seroquel 200mg qhs haldol 10mg tid invega sustenna 234mg im x1 01/03/19 invega sustenna 156mg im x1 01/06/19 TIME SPENT: 30 minutes. Vital Signs Vital Signs Date Time Temp Pulse Resp B/P (MAP) Pulse Ox O2 Delivery O2 Flow Rate FiO2 01/09/19 08:55 113 145/88 01/09/19 06:27 97.0 14 01/03/19 05:35 95 Room Air Laboratory Data 24H Labs Laboratory Tests 2 01/08/19 11:47: Bedside Glucose (Misc Panel) 93 01/08/19 17:09: Bedside Glucose (Misc Panel) 88 01/08/19 20:39: Bedside Glucose (Misc Panel) 108H 01/09/19 05:51: Bedside Glucose (Misc Panel) 98 Current Medications Current Medications Medications (Trade) Dose Ordered Sig/Kailey Route PRN Reason Start Time Stop Time Status Last Admin Dose Admin Acetaminophen (Tylenol Tab) 650 mg Q6HP PRN PO HEADACHE or DISCOMFORT 01/03/19 05:00 01/03/19 19:01 Al Hydrox/Mg Hydrox/Simethicone (Mylanta) 30 ml Q4HP PRN PO HEARTBURN/INDIGESTION 01/03/19 05:00 Amlodipine Besylate (Norvasc) 10 mg DAILY PO 01/03/19 09:00 01/09/19 08:55 Atorvastatin Calcium (Lipitor) 20 mg QHS PO 01/03/19 21:00 01/08/19 20:41 Benztropine Mesylate (Cogentin) 0.5 mg BIDP PRN PO EPS 01/03/19 22:30 01/08/19 20:41 Cetylpyridinium Chloride (Cepacol) 1 pranav Q4HP PRN PO SORE THROAT 01/04/19 10:00 01/06/19 03:53 Dextrose (Dextrose 50%) 25 ml ASDIRECTED PRN IV SEE LABEL COMMENTS 01/03/19 05:00 Gabapentin (Neurontin) 600 mg BID PO 01/03/19 09:00 01/09/19 08:55 Glucagon (Glucagon) 1 mg ASDIRECTED PRN SC SEE LABEL COMMENTS 01/03/19 05:00 Glucose (Glucose) 16 GM ASDIRECTED PRN PO SEE LABEL COMMENTS 01/03/19 05:00 Home Med (Med Rec Complete!) ASDIRECTED XX 01/03/19 05:45 01/03/19 06:07 DC Insulin Human Lispro (HumaLOG INSULIN) See Protocol Table AC SC 01/03/19 07:30 01/07/19 12:06 Insulin Human Lispro (HumaLOG INSULIN) See Protocol Table QHS SC 01/03/19 21:00 Levothyroxine Sodium (Synthroid) 100 mcg DAILY@0600 PO 01/04/19 06:00 01/09/19 05:53 Lisinopril (Prinivil) 20 mg DAILY PO 01/03/19 09:00 01/05/19 08:45 DC 01/05/19 08:12 Lisinopril (Prinivil) 40 mg DAILY PO 01/06/19 09:00 01/09/19 08:55 Lorazepam (Ativan) 2 mg Q4HP PRN IM AGITATION 01/03/19 09:45 01/04/19 10:01 DC Lorazepam (Ativan) 2 mg Q4HP PRN PO ANXIETY/AGITATION 01/04/19 10:00 01/04/19 10:09 Magnesium Hydroxide (Milk Of Magnesia) 30 ml DAILYPRN PRN PO CONSTIPATION 01/03/19 05:00 Metformin HCl (Glucophage) 1,000 mg BID@08,18 PO 01/04/19 08:00 01/09/19 08:55 Nicotine (Nicoderm Cq 21mg) 1 patch DAILY TD 01/03/19 09:00 Olanzapine (ZyPREXA ZYDIS) 5 mg Q4HP PRN PO AGITATION 01/03/19 05:00 Olanzapine (ZyPREXA) 10 mg BID@0900,1200 PO 01/04/19 12:00 01/09/19 08:55 Olanzapine (ZyPREXA) 10 mg DAILY PO 01/04/19 09:00 01/04/19 11:05 DC 01/04/19 08:06 Olanzapine (ZyPREXA) 20 mg QHS PO 01/03/19 21:00 01/08/19 20:43 Oxcarbazepine (Trileptal) 600 mg BID PO 01/03/19 21:00 01/09/19 08:55 Quetiapine Fumarate (SEROquel) 200 mg QHS PO 01/03/19 21:00 01/08/19 20:40 Trazodone HCl (Desyrel) 50 mg QHSP PRN PO INSOMNIA 01/03/19 05:00 Allergies Coded Allergies: Penicillins (Verified Allergy, Intermediate, rash, 01/02/19) divalproex sodium (Verified Allergy, Unknown, 01/02/19) CLAIR STEIN DO Jan 09, 2019 9:29 am
[2019-01-09] MEDS: HumaLOG INSULIN (NovoLOG) PER UNIT SC SCH ×3 (11:56→21:00)
[2019-01-09 15:35] VITALS: BP 137/89
[2019-01-09] MEDS: QUEtiapine FUMARATE 200 MG TAB PO SCH (23:24)
[2019-01-09] MEDS: ATORVASTATIN 20 MG TAB PO SCH (23:24)
[2019-01-10] MEDS: LEVOTHYROXINE 100MCG TABLET (0.1MG) PO SCH (06:03)
[2019-01-10] MEDS: HumaLOG INSULIN (NovoLOG) PER UNIT SC SCH ×4 (06:07→22:27)
[2019-01-10 06:23] VITALS: BP 127/72
--- NOTE | 2019-01-10 08:35 | MHIPNPDOC ---
[facility] Progress Note Progress Note DATE OF SERVICE: 01/10/19 HISTORY: Patient is a 48 -year-old , male, with psych history of bipolar 1 disorder, multiple admission [facility] and [place] [place] in the past, recently d/c [facility] 12/28/18 for winsome with psychosis who who was transfered from [facility] [place] sent there by his outpt provider for bizarre behavior, winsome, disorganization, hyperverbal speech, endorsing non command AH of "my father" in the ED. Pt appeared manic and disorganized with nonsensical speech per [facility] ED when evaluated there. Pt is a poor historian so history gathered from previous records. Pt seen this am and laying in bed resting but arousable and asked why he was back and started mumbling rapidly not fully intelligablely some thing about his medications and me being his doctor here. Per d/c cyber policy and strategy planner insurance was not approving pt zyprexa doses his was discharged on and therefore only got zyprexa 10mg qhs. Also d/c cyber policy and strategy planner report that when adult protective agency checked on pt while he was at home after last d/c, pt not taking his medications and that they were scattered all over his apt. Adult protection agency and disease case manager rn recommending long acting injectable to aid with med compliance. Pt has been on invega sustenna in the past and tolerated well with benefit so will give him one time oral dose invega then administer invega sustenna 234mg im x1 today with 156mg im 3 days later provided he tolerates oral invega. Pt is agreeable. Denies SI/HI. Appears to be in mixed manic state. VITAL SIGNS: See below. NEW TEST RESULTS: triletal level day after admission 1 which reflects pt med noncompliance on it. CURRENT MEDICATIONS: See below. MENTAL STATUS EXAMINATION: General: clean, dressed in his own clothes Speech: more regular rate and coherent Thought processes:more linear and logical and coherent MSK: improved Psychomotor agitation Thought content: no longer grandiose or delusional Abstract reasoning, and computation: [place] Description of associations: more appropriate Description of abnormal or psychotic thoughts: Denies any suicidal or homicidal thoughts and AVH Judgment: improving Insight: improving Orientation: Alert and orientated 3 Cognition: Grossly normal Recent and remote memory: fair Attention span and concentration: improving Fund of knowledge: below average Mood: "ok" Affect: more appropriate and euthymic DIAGNOSES: Bipolar disorder, type 1, most recent episode manic. ASSESSMENT:Pt seen today and states he's doing "ok" and has been up during the day mostly, sleeping more thru the night. States he's tolerating his medication and feels it's beneficial for him and he denies manic symptoms and doesn't appear to be manic any longer. Per treatment team, pt's insurance was not providing him with all the doses of zyprexa he need daily and were just allowing him to have 10mg qhs which was less than half the amount (40mg/day) of zyprexa he had been taking during prior hospitalization. He appears more euthymic and normal, full, appropriate range today. His speech is less hyperverbal and less tangential, but more linear and logical. Per staff, pt is not agitated or confused during the night during this admission. He doesn't not appear psychotic or grandiose. He denies SI/HI, AVH. Pt feels safe here. MANAGEMENT PLAN: continue current plan. trileptal 600mg bid zyprexa to 10mg qam and noon and 20mg qhs ativan 1mg q6hr prn anxiety/agitation zyprexa zydis 5mg q6hr prn anxiety/agitation seroquel 200mg qhs haldol 10mg tid invega sustenna 234mg im x1 01/03/19 invega sustenna 156mg im x1 01/06/19 TIME SPENT: 30 minutes. Vital Signs Vital Signs Date Time Temp Pulse Resp B/P (MAP) Pulse Ox O2 Delivery O2 Flow Rate FiO2 01/10/19 06:23 97.8 72 14 127/72 (90) Laboratory Data 24H Labs Laboratory Tests 2 01/09/19 11:52: Bedside Glucose (Misc Panel) 98 01/09/19 16:32: Bedside Glucose (Misc Panel) 88 01/09/19 23:32: Bedside Glucose (Misc Panel) 88 01/10/19 06:01: Bedside Glucose (Misc Panel) 86 Current Medications Current Medications Medications (Trade) Dose Ordered Sig/Kailey Route PRN Reason Start Time Stop Time Status Last Admin Dose Admin Acetaminophen (Tylenol Tab) 650 mg Q6HP PRN PO HEADACHE or DISCOMFORT 01/03/19 05:00 9/17/19 19:01 Al Hydrox/Mg Hydrox/Simethicone (Mylanta) 30 ml Q4HP PRN PO HEARTBURN/INDIGESTION 01/03/19 05:00 Amlodipine Besylate (Norvasc) 10 mg DAILY PO 01/03/19 09:00 01/09/19 08:55 Atorvastatin Calcium (Lipitor) 20 mg QHS PO 01/03/19 21:00 01/09/19 23:24 Benztropine Mesylate (Cogentin) 0.5 mg BIDP PRN PO EPS 01/03/19 22:30 01/08/19 20:41 Cetylpyridinium Chloride (Cepacol) 1 pranav Q4HP PRN PO SORE THROAT 01/04/19 10:00 01/06/19 03:53 Dextrose (Dextrose 50%) 25 ml ASDIRECTED PRN IV SEE LABEL COMMENTS 01/03/19 05:00 Gabapentin (Neurontin) 600 mg BID PO 01/03/19 09:00 01/09/19 23:24 Glucagon (Glucagon) 1 mg ASDIRECTED PRN SC SEE LABEL COMMENTS 01/03/19 05:00 Glucose (Glucose) 16 GM ASDIRECTED PRN PO SEE LABEL COMMENTS 01/03/19 05:00 Home Med (Med Rec Complete!) ASDIRECTED XX 01/03/19 05:45 01/03/19 06:07 DC Insulin Human Lispro (HumaLOG INSULIN) See Protocol Table AC SC 01/03/19 07:30 01/07/19 12:06 Insulin Human Lispro (HumaLOG INSULIN) See Protocol Table QHS SC 01/03/19 21:00 Levothyroxine Sodium (Synthroid) 100 mcg DAILY@0600 PO 01/04/19 06:00 01/10/19 06:03 Lisinopril (Prinivil) 20 mg DAILY PO 01/03/19 09:00 01/05/19 08:45 DC 01/05/19 08:12 Lisinopril (Prinivil) 40 mg DAILY PO 01/06/19 09:00 01/09/19 08:55 Lorazepam (Ativan) 2 mg Q4HP PRN IM AGITATION 01/03/19 09:45 01/04/19 10:01 DC Lorazepam (Ativan) 2 mg Q4HP PRN PO ANXIETY/AGITATION 01/04/19 10:00 01/04/19 10:09 Magnesium Hydroxide (Milk Of Magnesia) 30 ml DAILYPRN PRN PO CONSTIPATION 01/03/19 05:00 Metformin HCl (Glucophage) 1,000 mg BID@08,18 PO 01/04/19 08:00 01/09/19 17:18 Nicotine (Nicoderm Cq 21mg) 1 patch DAILY TD 01/03/19 09:00 Olanzapine (ZyPREXA ZYDIS) 5 mg Q4HP PRN PO AGITATION 01/03/19 05:00 Olanzapine (ZyPREXA) 10 mg BID@0900,1200 PO 01/04/19 12:00 01/09/19 11:57 Olanzapine (ZyPREXA) 10 mg DAILY PO 01/04/19 09:00 01/04/19 11:05 DC 01/04/19 08:06 Olanzapine (ZyPREXA) 20 mg QHS PO 01/03/19 21:00 01/09/19 23:23 Oxcarbazepine (Trileptal) 600 mg BID PO 01/03/19 21:00 01/09/19 23:24 Quetiapine Fumarate (SEROquel) 200 mg QHS PO 01/03/19 21:00 01/09/19 23:24 Trazodone HCl (Desyrel) 50 mg QHSP PRN PO INSOMNIA 01/03/19 05:00 Allergies Coded Allergies: Penicillins (Verified Allergy, Intermediate, rash, 01/02/19) divalproex sodium (Verified Allergy, Unknown, 01/02/19) CLAIR STEIN DO Jan 10, 2019 8:35 am
[2019-01-10] MEDS: NICOTINE 21MG/24HR 1 EA TRANSDERMAL TD SCH (09:00)
[2019-01-10] MEDS: OLANZapine 10 MG TAB PO SCH ×3 (09:12→22:27)
[2019-01-10] MEDS: lisinopriL 20 MG TAB PO SCH (09:13)
[2019-01-10] MEDS: amLODIPine 10 MG TAB PO SCH (09:13)
[2019-01-10] MEDS: GABAPENTIN 300 MG CAP PO SCH ×2 (09:13→22:27)
[2019-01-10] MEDS: metFORMIN (GLUCOPHAGE) 1000 MG TABLET PO SCH ×2 (09:13→17:35)
[2019-01-10] MEDS: OXcarbazepine 300 MG TAB PO SCH ×2 (09:14→22:27)
[2019-01-10 16:07] VITALS: BP 138/73
[2019-01-10] MEDS: ATORVASTATIN 20 MG TAB PO SCH (22:27)
[2019-01-10] MEDS: QUEtiapine FUMARATE 200 MG TAB PO SCH (22:27)
[2019-01-11 06:00] VITALS: BP 101/55
[2019-01-11] MEDS: LEVOTHYROXINE 100MCG TABLET (0.1MG) PO SCH (06:05)
[2019-01-11] MEDS: HumaLOG INSULIN (NovoLOG) PER UNIT SC SCH ×4 (07:30→21:00)
[2019-01-11] MEDS: NICOTINE 21MG/24HR 1 EA TRANSDERMAL TD SCH (09:00)
[2019-01-11] MEDS: metFORMIN (GLUCOPHAGE) 1000 MG TABLET PO SCH ×2 (09:17→17:15)
[2019-01-11] MEDS: OXcarbazepine 300 MG TAB PO SCH ×2 (09:17→21:30)
[2019-01-11] MEDS: OLANZapine 10 MG TAB PO SCH ×3 (09:17→21:31)
[2019-01-11] MEDS: GABAPENTIN 300 MG CAP PO SCH ×2 (09:17→21:31)
[2019-01-11] MEDS: amLODIPine 10 MG TAB PO SCH (09:18)
[2019-01-11] MEDS: lisinopriL 20 MG TAB PO SCH (09:18)
[2019-01-11 15:33] VITALS: BP 122/82
[2019-01-11] MEDS: ATORVASTATIN 20 MG TAB PO SCH (21:31)
[2019-01-11] MEDS: QUEtiapine FUMARATE 200 MG TAB PO SCH (21:31)
[2019-01-12] MEDS: LEVOTHYROXINE 100MCG TABLET (0.1MG) PO SCH (05:47)
[2019-01-12 06:30] VITALS: BP 113/66
[2019-01-12] MEDS: HumaLOG INSULIN (NovoLOG) PER UNIT SC SCH ×4 (07:30→20:28)
[2019-01-12] MEDS: NICOTINE 21MG/24HR 1 EA TRANSDERMAL TD SCH (09:00)
[2019-01-12] MEDS: GABAPENTIN 300 MG CAP PO SCH ×2 (09:44→20:27)
[2019-01-12] MEDS: OXcarbazepine 300 MG TAB PO SCH ×2 (09:44→20:27)
[2019-01-12] MEDS: OLANZapine 10 MG TAB PO SCH ×2 (09:44→20:27)
[2019-01-12] MEDS: metFORMIN (GLUCOPHAGE) 1000 MG TABLET PO SCH ×2 (09:44→16:39)
[2019-01-12] MEDS: amLODIPine 10 MG TAB PO SCH (09:45)
[2019-01-12] MEDS: lisinopriL 20 MG TAB PO SCH (09:45)
--- NOTE | 2019-01-12 10:15 | MHIPNPDOC ---
[facility] Progress Note Progress Note DATE OF SERVICE: 01/12/19 HISTORY: Patient is a 48 -year-old , male, with psych history of bipolar 1 disorder, multiple admission [facility] and elsewhere ([facility] [place] in the past, recently d/c [facility] 12/28/18 for winsome with psychosis who who was transfered from [facility] after sent there by his outpt provider for bizarre behavior, winsome, disorganization, hyperverbal speech, endorsing non command AH of "my father" in the ED. Pt appeared manic and disorganized with nonsensical speech per [facility] ED when evaluated there. Pt is a poor historian so history gathered from previous records. Pt seen this am and laying in bed resting but arousable and asked why he was back and started mumbling rapidly not fully intelligablely some thing about his medications and me being his doctor here. Per d/c nurse discharge planner insurance was not approving pt zyprexa doses his was discharged on and therefore only got zyprexa 10mg qhs. Also d/c nurse discharge planner report that when adult protective agency checked on pt while he was at home after last d/c, pt not taking his medications and that they were scattered all over his apt. Adult protection agency and manager case management recommending long acting injectable to aid with med compliance. Pt has been on invega sustenna in the past and tolerated well with benefit so will give him one time oral dose invega then administer invega sustenna 234mg im x1 today with 156mg im 3 days later provided he tolerates oral invega. Pt is agreeable. Denies SI/HI. Appears to be in mixed manic state. VITAL SIGNS: See below. NEW TEST RESULTS: triletal level day after admission 1 which reflects pt med noncompliance on it. CURRENT MEDICATIONS: See below. MENTAL STATUS EXAMINATION: General: clean, dressed in his own clothes Speech: more regular rate and coherent Thought processes:more linear and logical and coherent MSK: improved Psychomotor agitation Thought content: no longer grandiose or delusional Abstract reasoning, and computation: [place] Description of associations: more appropriate Description of abnormal or psychotic thoughts: Denies any suicidal or homicidal thoughts and AVH Judgment: improving Insight: improving Orientation: Alert and orientated 3 Cognition: Grossly normal Recent and remote memory: fair Attention span and concentration: improving Fund of knowledge: below average Mood: "tired" Affect: more appropriate and euthymic, fatigued today DIAGNOSES: Bipolar disorder, type 1, most recent episode manic. ASSESSMENT:Pt seen today and continues to endorse daytime somnolence making it difficult for him to stay awake during the day. Will decrease daytime zyrexa to 5mg q9am and 12pm to decrease daytime somnolence as he appears to no long be manic. States he's tolerating his other medications and feels it's beneficial for him and he denies manic symptoms and doesn't appear to be manic any longer. Per treatment team, pt's insurance was not providing him with all the doses of zyprexa he need daily and were just allowing him to have 10mg qhs which was less than half the amount (40mg/day) of zyprexa he had been taking during prior hospitalization. He appears more euthymic and normal, full, appropriate range today. His speech is less hyperverbal and less tangential, but more linear and logical. It appears very fatigued today otherwise is sleeping well at night. Per staff, pt is not agitated or confused during the night during this admission. He doesn't not appear psychotic or grandiose. He denies SI/HI, AVH. Pt feels safe here. MANAGEMENT PLAN: continue current plan. trileptal 600mg bid zyprexa to 5mg qam and noon and 20mg qhs ativan 1mg q6hr prn anxiety/agitation zyprexa zydis 5mg q6hr prn anxiety/agitation seroquel 200mg qhs haldol 10mg tid invega sustenna 234mg im x1 01/03/19 invega sustenna 156mg im x1 01/06/19 TIME SPENT: 30 minutes. Vital Signs Vital Signs Date Time Temp Pulse Resp B/P (MAP) Pulse Ox O2 Delivery O2 Flow Rate FiO2 01/12/19 09:45 131/82 01/12/19 09:45 100 01/12/19 06:30 97.8 16 Laboratory Data 24H Labs Laboratory Tests 2 01/11/19 11:55: Bedside Glucose (Misc Panel) 140H 01/11/19 17:14: Bedside Glucose (Misc Panel) 115H 01/11/19 21:28: Bedside Glucose (Misc Panel) 119H 01/12/19 05:59: Bedside Glucose (Misc Panel) 81 Current Medications Current Medications Medications (Trade) Dose Ordered Sig/Kailey Route PRN Reason Start Time Stop Time Status Last Admin Dose Admin Acetaminophen (Tylenol Tab) 650 mg Q6HP PRN PO HEADACHE or DISCOMFORT 01/03/19 05:00 01/03/19 19:01 Al Hydrox/Mg Hydrox/Simethicone (Mylanta) 30 ml Q4HP PRN PO HEARTBURN/INDIGESTION 01/03/19 05:00 Amlodipine Besylate (Norvasc) 10 mg DAILY PO 01/03/19 09:00 01/12/19 09:45 Atorvastatin Calcium (Lipitor) 20 mg QHS PO 01/03/19 21:00 01/11/19 21:31 Benztropine Mesylate (Cogentin) 0.5 mg BIDP PRN PO EPS 01/03/19 22:30 01/08/19 20:41 Cetylpyridinium Chloride (Cepacol) 1 pranav Q4HP PRN PO SORE THROAT 01/04/19 10:00 01/06/19 03:53 Dextrose (Dextrose 50%) 25 ml ASDIRECTED PRN IV SEE LABEL COMMENTS 01/03/19 05:00 Gabapentin (Neurontin) 600 mg BID PO 01/03/19 09:00 01/12/19 09:44 Glucagon (Glucagon) 1 mg ASDIRECTED PRN SC SEE LABEL COMMENTS 01/03/19 05:00 Glucose (Glucose) 16 GM ASDIRECTED PRN PO SEE LABEL COMMENTS 01/03/19 05:00 Home Med (Med Rec Complete!) ASDIRECTED XX 01/03/19 05:45 01/03/19 06:07 DC Insulin Human Lispro (HumaLOG INSULIN) See Protocol Table AC SC 01/03/19 07:30 01/11/19 17:15 Insulin Human Lispro (HumaLOG INSULIN) See Protocol Table QHS SC 01/03/19 21:00 Levothyroxine Sodium (Synthroid) 100 mcg DAILY@0600 PO 01/04/19 06:00 01/12/19 05:47 Lisinopril (Prinivil) 20 mg DAILY PO 01/03/19 09:00 01/05/19 08:45 DC 01/05/19 08:12 Lisinopril (Prinivil) 40 mg DAILY PO 01/06/19 09:00 01/12/19 09:45 Lorazepam (Ativan) 2 mg Q4HP PRN IM AGITATION 01/03/19 09:45 01/04/19 10:01 DC Lorazepam (Ativan) 2 mg Q4HP PRN PO ANXIETY/AGITATION 01/04/19 10:00 01/04/19 10:09 Magnesium Hydroxide (Milk Of Magnesia) 30 ml DAILYPRN PRN PO CONSTIPATION 01/03/19 05:00 Metformin HCl (Glucophage) 1,000 mg BID@08,18 PO 01/04/19 08:00 01/12/19 09:44 Miscellaneous (Unresolved Clarification Entry) SEE LABEL COMMENTS DAILY XX 01/10/19 09:00 01/10/19 10:48 DC Nicotine (Nicoderm Cq 21mg) 1 patch DAILY TD 01/03/19 09:00 Olanzapine (ZyPREXA ZYDIS) 5 mg Q4HP PRN PO AGITATION 01/03/19 05:00 Olanzapine (ZyPREXA) 10 mg BID@0900,1200 PO 01/04/19 12:00 01/12/19 09:44 Olanzapine (ZyPREXA) 10 mg DAILY PO 01/04/19 09:00 01/04/19 11:05 DC 01/04/19 08:06 Olanzapine (ZyPREXA) 20 mg QHS PO 01/03/19 21:00 01/11/19 21:31 Oxcarbazepine (Trileptal) 600 mg BID PO 01/03/19 21:00 01/12/19 09:44 Quetiapine Fumarate (SEROquel) 200 mg QHS PO 01/03/19 21:00 01/11/19 21:31 Trazodone HCl (Desyrel) 50 mg QHSP PRN PO INSOMNIA 01/03/19 05:00 Allergies Coded Allergies: Penicillins (Verified Allergy, Intermediate, rash, 01/02/19) divalproex sodium (Verified Allergy, Unknown, 01/02/19) CLAIR STEIN DO Jan 12, 2019 9:52 am
[2019-01-12] MEDS: OLANZapine 5 MG TAB PO SCH (11:12)
[2019-01-12 18:47] VITALS: BP 117/78
[2019-01-12] MEDS: ATORVASTATIN 20 MG TAB PO SCH (20:27)
[2019-01-12] MEDS: QUEtiapine FUMARATE 200 MG TAB PO SCH (20:27)
[2019-01-13] MEDS: LEVOTHYROXINE 100MCG TABLET (0.1MG) PO SCH (05:32)
[2019-01-13 06:07] VITALS: BP 147/75
[2019-01-13] MEDS: HumaLOG INSULIN (NovoLOG) PER UNIT SC SCH ×4 (06:16→21:00)
--- NOTE | 2019-01-13 09:11 | MHIPNPDOC ---
[facility] Progress Note Progress Note DATE OF SERVICE: 01/13/19 HISTORY: Patient is a 48 -year-old , male, with psych history of bipolar 1 disorder, multiple admission [facility] and elsewhere ([facility] [place] in the past, recently d/c [facility] 12/28/18 for winsome with psychosis who who was transfered from [facility] [place] after sent there by his outpt provider for bizarre behavior, winsome, disorganization, hyperverbal speech, endorsing non command AH of "my father" in the ED. Pt appeared manic and disorganized with nonsensical speech per [facility] ED when evaluated there. Pt is a poor historian so history gathered from previous records. Pt seen this am and laying in bed resting but arousable and asked why he was back and started mumbling rapidly not fully intelligablely some thing about his medications and me being his doctor here. Per d/c senior buyer planner insurance was not approving pt zyprexa doses his was discharged on and therefore only got zyprexa 10mg qhs. Also d/c senior buyer planner report that when adult protective agency checked on pt while he was at home after last d/c, pt not taking his medications and that they were scattered all over his apt. Adult protection agency and [employer] recommending long acting injectable to aid with med compliance. Pt has been on invega sustenna in the past and tolerated well with benefit so will give him one time oral dose invega then administer invega sustenna 234mg im x1 today with 156mg im 3 days later provided he tolerates oral invega. Pt is agreeable. Denies SI/HI. Appears to be in mixed manic state. VITAL SIGNS: See below. NEW TEST RESULTS: triletal level day after admission 1 which reflects pt med noncompliance on it. CURRENT MEDICATIONS: See below. MENTAL STATUS EXAMINATION: General: clean, dressed in his own clothes Speech: more regular rate and coherent Thought processes:more linear and logical and coherent MSK: improved Psychomotor agitation Thought content: no longer grandiose or delusional Abstract reasoning, and computation: [place] Description of associations: more appropriate Description of abnormal or psychotic thoughts: Denies any suicidal or homicidal thoughts and AVH Judgment: improving Insight: improving Orientation: Alert and orientated 3 Cognition: Grossly normal Recent and remote memory: fair Attention span and concentration: improving Fund of knowledge: below average Mood: "ok" Affect: more appropriate and euthymic, fatigued today DIAGNOSES: Bipolar disorder, type 1, most recent episode manic. ASSESSMENT:Pt seen today and states daytime somnolence is better since zyprexa dose was decreased during the day. States he's tolerating his other medications and feels it's beneficial for him and he denies manic symptoms and doesn't appear to be manic any longer. Per treatment team, pt's insurance was not providing him with all the doses of zyprexa he need daily and were just allowing him to have 10mg qhs which was less than half the amount (40mg/day) of zyprexa he had been taking during prior hospitalization. He appears more euthymic and normal, full, appropriate range today. His speech is no longer hyperverbal or tangential, and more linear and logical. He continues to appear very fatigued today otherwise is sleeping well at night. Denies winsome or depression. Per staff, pt is not agitated or confused during the night during this admission. He doesn't not appear psychotic or grandiose. He denies SI/HI, AVH. Pt feels safe here. MANAGEMENT PLAN: continue current plan. trileptal 600mg bid zyprexa to 5mg qam and noon and 20mg qhs ativan 1mg q6hr prn anxiety/agitation zyprexa zydis 5mg q6hr prn anxiety/agitation seroquel 200mg qhs haldol 10mg tid invega sustenna 234mg im x1 01/03/19 invega sustenna 156mg im x1 01/06/19 TIME SPENT: 30 minutes. Vital Signs Vital Signs Date Time Temp Pulse Resp B/P (MAP) Pulse Ox O2 Delivery O2 Flow Rate FiO2 01/13/19 06:07 98.0 74 18 147/75 (99) Laboratory Data 24H Labs Laboratory Tests 2 01/12/19 11:11: Bedside Glucose (Misc Panel) 104 01/12/19 16:38: Bedside Glucose (Misc Panel) 89 01/12/19 20:22: Bedside Glucose (Misc Panel) 85 01/13/19 06:13: Bedside Glucose (Misc Panel) 79 Current Medications Current Medications Medications (Trade) Dose Ordered Sig/Kailey Route PRN Reason Start Time Stop Time Status Last Admin Dose Admin Acetaminophen (Tylenol Tab) 650 mg Q6HP PRN PO HEADACHE or DISCOMFORT 01/03/19 05:00 01/03/19 19:01 Al Hydrox/Mg Hydrox/Simethicone (Mylanta) 30 ml Q4HP PRN PO HEARTBURN/INDIGESTION 01/03/19 05:00 Amlodipine Besylate (Norvasc) 10 mg DAILY PO 01/03/19 09:00 01/12/19 09:45 Atorvastatin Calcium (Lipitor) 20 mg QHS PO 01/03/19 21:00 01/12/19 20:27 Benztropine Mesylate (Cogentin) 0.5 mg BIDP PRN PO EPS 01/03/19 22:30 01/08/19 20:41 Cetylpyridinium Chloride (Cepacol) 1 pranav Q4HP PRN PO SORE THROAT 01/04/19 10:00 01/06/19 03:53 Dextrose (Dextrose 50%) 25 ml ASDIRECTED PRN IV SEE LABEL COMMENTS 01/03/19 05:00 Gabapentin (Neurontin) 600 mg BID PO 01/03/19 09:00 01/12/19 20:27 Glucagon (Glucagon) 1 mg ASDIRECTED PRN SC SEE LABEL COMMENTS 01/03/19 05:00 Glucose (Glucose) 16 GM ASDIRECTED PRN PO SEE LABEL COMMENTS 01/03/19 05:00 Home Med (Med Rec Complete!) ASDIRECTED XX 01/03/19 05:45 01/03/19 06:07 DC Insulin Human Lispro (HumaLOG INSULIN) See Protocol Table AC SC 01/03/19 07:30 01/11/19 17:15 Insulin Human Lispro (HumaLOG INSULIN) See Protocol Table QHS SC 01/03/19 21:00 Levothyroxine Sodium (Synthroid) 100 mcg DAILY@0600 PO 01/04/19 06:00 01/13/19 05:32 Lisinopril (Prinivil) 20 mg DAILY PO 01/03/19 09:00 01/05/19 08:45 DC 01/05/19 08:12 Lisinopril (Prinivil) 40 mg DAILY PO 01/06/19 09:00 01/12/19 09:45 Lorazepam (Ativan) 2 mg Q4HP PRN IM AGITATION 01/03/19 09:45 01/04/19 10:01 DC Lorazepam (Ativan) 2 mg Q4HP PRN PO ANXIETY/AGITATION 01/04/19 10:00 01/04/19 10:09 Magnesium Hydroxide (Milk Of Magnesia) 30 ml DAILYPRN PRN PO CONSTIPATION 01/03/19 05:00 Metformin HCl (Glucophage) 1,000 mg BID@08,18 PO 01/04/19 08:00 01/12/19 16:39 Miscellaneous (Unresolved Clarification Entry) SEE LABEL COMMENTS DAILY XX 01/10/19 09:00 01/10/19 10:48 DC Nicotine (Nicoderm Cq 21mg) 1 patch DAILY TD 01/03/19 09:00 Olanzapine (ZyPREXA ZYDIS) 5 mg Q4HP PRN PO AGITATION 01/03/19 05:00 Olanzapine (ZyPREXA) 5 mg BID@0900,1200 PO 01/12/19 12:00 01/12/19 11:12 Olanzapine (ZyPREXA) 10 mg BID@0900,1200 PO 01/04/19 12:00 01/12/19 10:12 DC 01/12/19 09:44 Olanzapine (ZyPREXA) 10 mg DAILY PO 01/04/19 09:00 01/04/19 11:05 DC 01/04/19 08:06 Olanzapine (ZyPREXA) 20 mg QHS PO 01/03/19 21:00 01/12/19 20:27 Oxcarbazepine (Trileptal) 600 mg BID PO 01/03/19 21:00 01/12/19 20:27 Quetiapine Fumarate (SEROquel) 200 mg QHS PO 01/03/19 21:00 01/12/19 20:27 Trazodone HCl (Desyrel) 50 mg QHSP PRN PO INSOMNIA 01/03/19 05:00 Allergies Coded Allergies: Penicillins (Verified Allergy, Intermediate, rash, 01/02/19) divalproex sodium (Verified Allergy, Unknown, 01/02/19) CLAIR STEIN DO Jan 13, 2019 9:11 am
[2019-01-13] MEDS: lisinopriL 20 MG TAB PO SCH (10:05)
[2019-01-13] MEDS: OLANZapine 5 MG TAB PO SCH ×2 (10:06→13:23)
[2019-01-13] MEDS: amLODIPine 10 MG TAB PO SCH (10:06)
[2019-01-13] MEDS: OXcarbazepine 300 MG TAB PO SCH ×2 (10:06→21:30)
[2019-01-13] MEDS: GABAPENTIN 300 MG CAP PO SCH ×2 (10:06→21:30)
[2019-01-13] MEDS: metFORMIN (GLUCOPHAGE) 1000 MG TABLET PO SCH ×2 (10:07→17:55)
[2019-01-13] MEDS: NICOTINE 21MG/24HR 1 EA TRANSDERMAL TD SCH (10:08)
[2019-01-13 18:23] VITALS: BP 125/74
[2019-01-13] MEDS: ATORVASTATIN 20 MG TAB PO SCH (21:30)
[2019-01-13] MEDS: OLANZapine 10 MG TAB PO SCH (21:30)
[2019-01-13] MEDS: QUEtiapine FUMARATE 200 MG TAB PO SCH (21:30)
[2019-01-14] MEDS: LEVOTHYROXINE 100MCG TABLET (0.1MG) PO SCH (05:51)
[2019-01-14] MEDS: HumaLOG INSULIN (NovoLOG) PER UNIT SC SCH ×4 (06:05→21:00)
[2019-01-14 06:43] VITALS: BP 111/78
[2019-01-14] MEDS: metFORMIN (GLUCOPHAGE) 1000 MG TABLET PO SCH ×2 (08:00→17:23)
[2019-01-14] MEDS: NICOTINE 21MG/24HR 1 EA TRANSDERMAL TD SCH (09:00)
[2019-01-14] MEDS: GABAPENTIN 300 MG CAP PO SCH ×2 (09:24→21:21)
[2019-01-14] MEDS: lisinopriL 20 MG TAB PO SCH (09:24)
[2019-01-14] MEDS: OLANZapine 5 MG TAB PO SCH ×2 (09:25→11:48)
[2019-01-14] MEDS: amLODIPine 10 MG TAB PO SCH (09:25)
[2019-01-14] MEDS: OXcarbazepine 300 MG TAB PO SCH ×2 (09:25→21:21)
[2019-01-14 15:56] VITALS: BP 132/95
[2019-01-14] MEDS: ATORVASTATIN 20 MG TAB PO SCH (21:21)
[2019-01-14] MEDS: OLANZapine 10 MG TAB PO SCH (21:21)
[2019-01-14] MEDS: QUEtiapine FUMARATE 200 MG TAB PO SCH (21:21)
[2019-01-15] MEDS: LEVOTHYROXINE 100MCG TABLET (0.1MG) PO SCH (06:27)
[2019-01-15 06:37] VITALS: BP 115/71
[2019-01-15] MEDS: HumaLOG INSULIN (NovoLOG) PER UNIT SC SCH ×4 (07:30→20:27)
[2019-01-15] MEDS: GABAPENTIN 300 MG CAP PO SCH ×2 (08:47→20:26)
[2019-01-15] MEDS: metFORMIN (GLUCOPHAGE) 1000 MG TABLET PO SCH ×2 (08:47→17:04)
[2019-01-15] MEDS: OLANZapine 5 MG TAB PO SCH ×2 (08:47→11:46)
[2019-01-15] MEDS: lisinopriL 20 MG TAB PO SCH (08:48)
[2019-01-15] MEDS: OXcarbazepine 300 MG TAB PO SCH ×2 (08:48→20:26)
[2019-01-15] MEDS: amLODIPine 10 MG TAB PO SCH (08:48)
[2019-01-15] MEDS: NICOTINE 21MG/24HR 1 EA TRANSDERMAL TD SCH (08:49)
[2019-01-15 15:48] VITALS: BP 106/56
[2019-01-15] MEDS: OLANZapine 10 MG TAB PO SCH (20:26)
[2019-01-15] MEDS: QUEtiapine FUMARATE 200 MG TAB PO SCH (20:26)
[2019-01-15] MEDS: ATORVASTATIN 20 MG TAB PO SCH (20:26)
[2019-01-16] MEDS: LEVOTHYROXINE 100MCG TABLET (0.1MG) PO SCH (05:59)
[2019-01-16] MEDS: HumaLOG INSULIN (NovoLOG) PER UNIT SC SCH ×4 (06:04→21:00)
[2019-01-16 06:48] VITALS: BP 131/77
[2019-01-16] MEDS: metFORMIN (GLUCOPHAGE) 1000 MG TABLET PO SCH ×2 (07:31→17:19)
[2019-01-16] MEDS: GABAPENTIN 300 MG CAP PO SCH ×2 (09:00→22:24)
[2019-01-16] MEDS: NICOTINE 21MG/24HR 1 EA TRANSDERMAL TD SCH (09:00)
[2019-01-16] MEDS: lisinopriL 20 MG TAB PO SCH (09:00)
[2019-01-16] MEDS: OLANZapine 5 MG TAB PO SCH (09:00)
[2019-01-16] MEDS: OXcarbazepine 300 MG TAB PO SCH ×2 (09:00→22:23)
[2019-01-16] MEDS: amLODIPine 10 MG TAB PO SCH (09:00)
--- NOTE | 2019-01-16 09:53 | MHIPNPDOC ---
[facility] Progress Note Progress Note DATE OF SERVICE: 01/16/19 HISTORY: Patient is a 48 -year-old , male, with psych history of bipolar 1 disorder, multiple admission [facility] and elsewhere [place] [place] in the past, recently d/c [facility] 12/28/18 for winsome with psychosis who who was transfered from [facility] after sent there by his outpt provider for bizarre behavior, winsome, disorganization, hyperverbal speech, endorsing non command AH of "my father" in the ED. Pt appeared manic and disorganized with nonsensical speech per [facility] ED when evaluated there. Pt is a poor historian so history gathered from previous records. Pt seen this am and laying in bed resting but arousable and asked why he was back and started mumbling rapidly not fully intelligablely some thing about his medications and me being his doctor here. Per d/c media planner / buyer insurance was not approving pt zyprexa doses his was discharged on and therefore only got zyprexa 10mg qhs. Also d/c media planner / buyer report that when adult protective agency checked on pt while he was at home after last d/c, pt not taking his medications and that they were scattered all over his apt. Adult protection agency and medical case manager recommending long acting injectable to aid with med compliance. Pt has been on invega sustenna in the past and tolerated well with benefit so will give him one time oral dose invega then administer invega sustenna 234mg im x1 today with 156mg im 3 days later provided he tolerates oral invega. Pt is agreeable. Denies SI/HI. Appears to be in mixed manic state. VITAL SIGNS: See below. NEW TEST RESULTS: triletal level day after admission 1 which reflects pt med noncompliance on it. CURRENT MEDICATIONS: See below. MENTAL STATUS EXAMINATION: General: clean, dressed in hospital clothes Speech: slow, low volume Thought processes: linear and logical and coherent MSK: slightly diminished movement Thought content: no longer grandiose or delusional Abstract reasoning, and computation: [place] Description of associations: more appropriate Description of abnormal or psychotic thoughts: Denies any suicidal or homicidal thoughts and AVH Judgment: fair Insight: fair Orientation: Alert and orientated 3 Cognition: Grossly normal Recent and remote memory: fair Attention span and concentration: fair Fund of knowledge: below average Mood: "ok" Affect: depressed and fatigued DIAGNOSES: Bipolar disorder, type 1, most recent episode manic. ASSESSMENT:Pt seen today and continues to endorse daytime somnolence and jeanette eves that zyprexa during the day is making him tired as he sleeps a lot so is agreeable to trying it just at night to see if that improves his daytime somnolence and overall flat mood. He endorses mild depression, mostly due to the daytime fatigue, but otherwise states he's tolerating his other medications and feels it's beneficial for him and he denies manic symptoms and doesn't appear to be manic any longer. Per treatment team, pt's insurance was not providing him with all the doses of zyprexa he need daily and were just allowing him to have 10mg qhs which was less than half the amount (40mg/day) of zyprexa he had been taking during prior hospitalization. He appears flat and depressed today, denies SI. His speech is slow and low volume and non-spontaneous. His thoughts remain linear and logical. He continues to appear very fatigued today otherwise is sleeping well at night. Denies winsome. Per staff, pt is not agitated or confused during the night during this admission. He does not appear psychotic or grandiose. He denies SI/HI, AVH. Pt feels safe here. Continues to go to some groups, but not all and has been encouraged to go to more to help with depression MANAGEMENT PLAN: D/C Am and noon Zyprexa. trileptal 600mg bid zyprexa 20mg qhs ativan 1mg q6hr prn anxiety/agitation zyprexa zydis 5mg q6hr prn anxiety/agitation seroquel 200mg qhs haldol 10mg tid invega sustenna 234mg im x1 01/03/19 invega sustenna 156mg im x1 01/06/19 TIME SPENT: 30 minutes. Vital Signs Vital Signs Date Time Temp Pulse Resp B/P (MAP) Pulse Ox O2 Delivery O2 Flow Rate FiO2 01/16/19 09:00 90 140/90 01/16/19 06:48 98.7 14 Laboratory Data 24H Labs Laboratory Tests 2 01/15/19 11:48: Bedside Glucose (Misc Panel) 105 01/15/19 16:54: Bedside Glucose (Misc Panel) 109H 9/29/19 20:25: Bedside Glucose (Misc Panel) 104 01/16/19 06:01: Bedside Glucose (Misc Panel) 78 Current Medications Current Medications Medications (Trade) Dose Ordered Sig/Kailey Route PRN Reason Start Time Stop Time Status Last Admin Dose Admin Acetaminophen (Tylenol Tab) 650 mg Q6HP PRN PO HEADACHE or DISCOMFORT 01/03/19 05:00 01/03/19 19:01 Al Hydrox/Mg Hydrox/Simethicone (Mylanta) 30 ml Q4HP PRN PO HEARTBURN/INDIGESTION 01/03/19 05:00 Amlodipine Besylate (Norvasc) 10 mg DAILY PO 01/03/19 09:00 01/16/19 09:00 Atorvastatin Calcium (Lipitor) 20 mg QHS PO 01/03/19 21:00 01/15/19 20:26 Benztropine Mesylate (Cogentin) 0.5 mg BIDP PRN PO EPS 01/03/19 22:30 01/08/19 20:41 Cetylpyridinium Chloride (Cepacol) 1 pranav Q4HP PRN PO SORE THROAT 01/04/19 10:00 01/06/19 03:53 Dextrose (Dextrose 50%) 25 ml ASDIRECTED PRN IV SEE LABEL COMMENTS 01/03/19 05:00 Gabapentin (Neurontin) 600 mg BID PO 01/03/19 09:00 01/16/19 09:00 Glucagon (Glucagon) 1 mg ASDIRECTED PRN SC SEE LABEL COMMENTS 01/03/19 05:00 Glucose (Glucose) 16 GM ASDIRECTED PRN PO SEE LABEL COMMENTS 01/03/19 05:00 Home Med (Med Rec Complete!) ASDIRECTED XX 01/03/19 05:45 01/03/19 06:07 DC Insulin Human Lispro (HumaLOG INSULIN) See Protocol Table AC SC 01/03/19 07:30 01/15/19 17:08 Insulin Human Lispro (HumaLOG INSULIN) See Protocol Table QHS SC 01/03/19 21:00 Levothyroxine Sodium (Synthroid) 100 mcg DAILY@0600 PO 01/04/19 06:00 01/16/19 05:59 Lisinopril (Prinivil) 20 mg DAILY PO 01/03/19 09:00 01/05/19 08:45 DC 01/05/19 08:12 Lisinopril (Prinivil) 40 mg DAILY PO 01/06/19 09:00 01/16/19 09:00 Lorazepam (Ativan) 2 mg Q4HP PRN IM AGITATION 01/03/19 09:45 01/04/19 10:01 DC Lorazepam (Ativan) 2 mg Q4HP PRN PO ANXIETY/AGITATION 01/04/19 10:00 01/04/19 10:09 Magnesium Hydroxide (Milk Of Magnesia) 30 ml DAILYPRN PRN PO CONSTIPATION 01/03/19 05:00 Metformin HCl (Glucophage) 1,000 mg BID@08,18 PO 01/04/19 08:00 01/16/19 07:31 Miscellaneous (Unresolved Clarification Entry) SEE LABEL COMMENTS DAILY XX 01/10/19 09:00 01/10/19 10:48 DC Nicotine (Nicoderm Cq 21mg) 1 patch DAILY TD 01/03/19 09:00 Olanzapine (ZyPREXA ZYDIS) 5 mg Q4HP PRN PO AGITATION 01/03/19 05:00 Olanzapine (ZyPREXA) 5 mg BID@0900,1200 PO 01/12/19 12:00 01/16/19 09:00 Olanzapine (ZyPREXA) 10 mg BID@0900,1200 PO 01/04/19 12:00 01/12/19 10:12 DC 01/12/19 09:44 Olanzapine (ZyPREXA) 10 mg DAILY PO 01/04/19 09:00 01/04/19 11:05 DC 01/04/19 08:06 Olanzapine (ZyPREXA) 20 mg QHS PO 01/03/19 21:00 01/15/19 20:26 Oxcarbazepine (Trileptal) 600 mg BID PO 01/03/19 21:00 01/16/19 09:00 Quetiapine Fumarate (SEROquel) 200 mg QHS PO 01/03/19 21:00 01/15/19 20:26 Trazodone HCl (Desyrel) 50 mg QHSP PRN PO INSOMNIA 01/03/19 05:00 Allergies Coded Allergies: Penicillins (Verified Allergy, Intermediate, rash, 01/02/19) divalproex sodium (Verified Allergy, Unknown, 01/02/19) CLAIR STEIN DO Jan 16, 2019 09:53
[2019-01-16 18:15] VITALS: BP 136/79
[2019-01-16] MEDS: QUEtiapine FUMARATE 200 MG TAB PO SCH (22:22)
[2019-01-16] MEDS: OLANZapine 10 MG TAB PO SCH (22:24)
[2019-01-16] MEDS: ATORVASTATIN 20 MG TAB PO SCH (22:24)
[2019-01-17] MEDS: LEVOTHYROXINE 100MCG TABLET (0.1MG) PO SCH (05:34)
[2019-01-17] MEDS: HumaLOG INSULIN (NovoLOG) PER UNIT SC SCH ×4 (06:42→21:00)
[2019-01-17 07:04] VITALS: BP 127/81
[2019-01-17] MEDS: metFORMIN (GLUCOPHAGE) 1000 MG TABLET PO SCH ×2 (07:50→17:17)
[2019-01-17] MEDS: NICOTINE 21MG/24HR 1 EA TRANSDERMAL TD SCH (08:48)
[2019-01-17] MEDS: OXcarbazepine 300 MG TAB PO SCH ×2 (08:52→21:50)
[2019-01-17] MEDS: amLODIPine 10 MG TAB PO SCH (08:53)
[2019-01-17] MEDS: lisinopriL 20 MG TAB PO SCH (08:53)
[2019-01-17] MEDS: GABAPENTIN 300 MG CAP PO SCH ×2 (08:53→21:50)
--- NOTE | 2019-01-17 12:05 | MHIPNPDOC ---
[facility] Progress Note Progress Note DATE OF SERVICE: 01/17/19 HISTORY: Patient is a 48 -year-old , male, with psych history of bipolar 1 disorder, multiple admission [facility] and elsewhere ([facility] [place] in the past, recently d/c [facility] 12/28/18 for winsome with psychosis who who was transferred from [facility] after sent there by his outpt provider for bizarre behavior, winsome, disorganization, hyperverbal speech, endorsing non command AH of "my father" in the ED. Pt appeared manic and disorganized with nonsensical speech per [facility] ED when evaluated there. Pt is a poor historian so history gathered from previous records. Pt seen this am and laying in bed resting but arousable and asked why he was back and started mumbling rapidly not fully intelligibly some thing about his medications and me being his doctor here. Per d/c raw material planner insurance was not approving pt zyprexa doses his was discharged on and therefore only got zyprexa 10mg qhs. Also d/c raw material planner report that when adult protective agency checked on pt while he was at home after last d/c, pt not taking his medications and that they were scattered all over his apt. Adult protection agency and correctional case manager recommending long acting injectable to aid with med compliance. Pt has been on invega sustenna in the past and tolerated well with benefit so will give him one time oral dose invega then administer invega sustenna 234mg im x1 today with 156mg im 3 days later provided he tolerates oral invega. Pt is agreeable. Denies SI/HI. Appears to be in mixed manic state. VITAL SIGNS: See below. NEW TEST RESULTS: triletal level 13 therapeutic CURRENT MEDICATIONS: See below. MENTAL STATUS EXAMINATION: General: clean, dressed in hospital clothes Speech: slow, low volume Thought processes: linear and logical and coherent MSK: slightly diminished movement Thought content: no longer grandiose or delusional Abstract reasoning, and computation: [place] Description of associations: more appropriate Description of abnormal or psychotic thoughts: Denies any suicidal or homicidal thoughts and AVH Judgment: fair Insight: fair Orientation: Alert and orientated 3 Cognition: Grossly normal Recent and remote memory: fair Attention span and concentration: fair Fund of knowledge: below average Mood: "tired" Affect: depressed and fatigued DIAGNOSES: Bipolar disorder, type 1, most recent episode manic. ASSESSMENT:Pt seen today in bed sleeping still and got pt up and brought him to group to prevent him from sleeping the whole day and isolating in his room. Continues to endorse daytime somulence and appears depressed, amotivatived, and flat. Will monitor for improvement with d/c day time zyprexa and will decrease nightly zyprexa if continues this week. He endorses depression, mostly due to the daytime fatigue, but otherwise states he's tolerating his other medications and feels it's beneficial for him and he denies manic symptoms and doesn't appear to be manic any longer. Per treatment team, pt's insurance was not providing him with all the doses of zyprexa he need daily and were just allowing him to have 10mg qhs which was less than half the amount (40mg/day) of zyprexa he had been taking during prior hospitalization. He appears flat and depressed today, denies SI. His speech is slow and low volume and non-spontaneous. His thoughts remain linear and logical.Per staff, pt is not agitated or confused du ring the night during this admission. He does not appear psychotic or grandiose. He denies SI/HI, AVH. Pt feels safe here. Continues to go to some groups, but not all and has been encouraged to go to more to help with depression MANAGEMENT PLAN: continue plan trileptal 600mg bid zyprexa 20mg qhs ativan 1mg q6hr prn anxiety/agitation zyprexa zydis 5mg q6hr prn anxiety/agitation seroquel 200mg qhs haldol 10mg tid invega sustenna 234mg im x1 01/03/19 invega sustenna 156mg im x1 01/06/19 TIME SPENT: 30 minutes. Vital Signs Vital Signs Date Time Temp Pulse Resp B/P (MAP) Pulse Ox O2 Delivery O2 Flow Rate FiO2 01/17/19 08:53 108/62 01/17/19 08:53 84 01/17/19 07:04 97.3 14 Laboratory Data 24H Labs Laboratory Tests 2 01/16/19 12:17: Bedside Glucose (Misc Panel) 80 01/16/19 17:15: Bedside Glucose (Misc Panel) 106H 01/16/19 22:26: Bedside Glucose (Misc Panel) 90 01/17/19 06:09: Bedside Glucose (Misc Panel) 77 Current Medications Current Medications Medications (Trade) Dose Ordered Sig/Kailey Route PRN Reason Start Time Stop Time Status Last Admin Dose Admin Acetaminophen (Tylenol Tab) 650 mg Q6HP PRN PO HEADACHE or DISCOMFORT 01/03/19 05:00 01/03/19 19:01 Al Hydrox/Mg Hydrox/Simethicone (Mylanta) 30 ml Q4HP PRN PO HEARTBURN/INDIGESTION 01/03/19 05:00 Amlodipine Besylate (Norvasc) 10 mg DAILY PO 01/03/19 09:00 01/17/19 08:53 Atorvastatin Calcium (Lipitor) 20 mg QHS PO 01/03/19 21:00 01/16/19 22:24 Benztropine Mesylate (Cogentin) 0.5 mg BIDP PRN PO EPS 01/03/19 22:30 01/08/19 20:41 Cetylpyridinium Chloride (Cepacol) 1 pranav Q4HP PRN PO SORE THROAT 01/04/19 10:00 01/06/19 03:53 Dextrose (Dextrose 50%) 25 ml ASDIRECTED PRN IV SEE LABEL COMMENTS 01/03/19 05:00 Gabapentin (Neurontin) 600 mg BID PO 01/03/19 09:00 01/17/19 08:53 Glucagon (Glucagon) 1 mg ASDIRECTED PRN SC SEE LABEL COMMENTS 01/03/19 05:00 Glucose (Glucose) 16 GM ASDIRECTED PRN PO SEE LABEL COMMENTS 01/03/19 05:00 Home Med (Med Rec Complete!) ASDIRECTED XX 01/03/19 05:45 01/03/19 06:07 DC Insulin Human Lispro (HumaLOG INSULIN) See Protocol Table AC SC 01/03/19 07:30 01/16/19 17:20 Insulin Human Lispro (HumaLOG INSULIN) See Protocol Table QHS SC 01/03/19 21:00 Levothyroxine Sodium (Synthroid) 100 mcg DAILY@0600 PO 01/04/19 06:00 01/17/19 05:34 Lisinopril (Prinivil) 20 mg DAILY PO 01/03/19 09:00 01/05/19 08:45 DC 01/05/19 08:12 Lisinopril (Prinivil) 40 mg DAILY PO 01/06/19 09:00 01/17/19 08:53 Lorazepam (Ativan) 2 mg Q4HP PRN IM AGITATION 01/03/19 09:45 01/04/19 10:01 DC Lorazepam (Ativan) 2 mg Q4HP PRN PO ANXIETY/AGITATION 01/04/19 10:00 01/04/19 10:09 Magnesium Hydroxide (Milk Of Magnesia) 30 ml DAILYPRN PRN PO CONSTIPATION 01/03/19 05:00 Metformin HCl (Glucophage) 1,000 mg BID@08,18 PO 01/04/19 08:00 01/17/19 07:50 Miscellaneous (Unresolved Clarification Entry) SEE LABEL COMMENTS DAILY XX 01/10/19 09:00 01/10/19 10:48 DC Miscellaneous (Unresolved Clarification Entry) SEE LABEL COMMENTS DAILY XX 01/16/19 09:00 Nicotine (Nicoderm Cq 21mg) 1 patch DAILY TD 01/03/19 09:00 Olanzapine (ZyPREXA ZYDIS) 5 mg Q4HP PRN PO AGITATION 01/03/19 05:00 Olanzapine (ZyPREXA) 5 mg BID@0900,1200 PO 01/12/19 12:00 01/16/19 10:30 DC 01/16/19 09:00 Olanzapine (ZyPREXA) 10 mg BID@0900,1200 PO 01/04/19 12:00 01/12/19 10:12 DC 01/12/19 09:44 Olanzapine (ZyPREXA) 10 mg DAILY PO 01/04/19 09:00 01/04/19 11:05 DC 01/04/19 08:06 Olanzapine (ZyPREXA) 20 mg QHS PO 01/03/19 21:00 01/16/19 22:24 Oxcarbazepine (Trileptal) 600 mg BID PO 01/03/19 21:00 01/17/19 08:52 Quetiapine Fumarate (SEROquel) 200 mg QHS PO 01/03/19 21:00 01/16/19 22:22 Trazodone HCl (Desyrel) 50 mg QHSP PRN PO INSOMNIA 01/03/19 05:00 Allergies Coded Allergies: Penicillins (Verified Allergy, Intermediate, rash, 01/02/19) divalproex sodium (Verified Allergy, Unknown, 01/02/19) CLAIR STEIN DO Jan 17, 2019 9:07 am
[2019-01-17 16:57] VITALS: BP 137/82
[2019-01-17] MEDS: QUEtiapine FUMARATE 200 MG TAB PO SCH (21:49)
[2019-01-17] MEDS: OLANZapine 10 MG TAB PO SCH (21:50)
[2019-01-17] MEDS: ATORVASTATIN 20 MG TAB PO SCH (21:50)
[2019-01-18] MEDS: LEVOTHYROXINE 100MCG TABLET (0.1MG) PO SCH (06:00)
[2019-01-18 06:37] VITALS: BP 122/74
[2019-01-18] MEDS: HumaLOG INSULIN (NovoLOG) PER UNIT SC SCH ×4 (06:37→21:00)
[2019-01-18] MEDS: metFORMIN (GLUCOPHAGE) 1000 MG TABLET PO SCH ×2 (07:51→17:16)
[2019-01-18] MEDS: NICOTINE 21MG/24HR 1 EA TRANSDERMAL TD SCH (09:00)
--- NOTE | 2019-01-18 09:06 | MHIPNPDOC ---
[facility] Progress Note Progress Note DATE OF SERVICE: 01/18/19 HISTORY: Patient is a 48 -year-old , male, with psych history of bipolar 1 disorder, multiple admission [facility] and [place] in the [place], recently d/c [facility] 12/28/18 for winsome with psychosis who who was transferred from [facility] after sent there by his outpt provider for bizarre behavior, winsome, disorganization, hyperverbal speech, endorsing non command AH of "my father" in the ED. Pt appeared manic and disorganized with nonsensical speech per [facility] ED when evaluated there. Pt is a poor historian so history gathered from previous records. Pt seen this am and laying in bed resting but arousable and asked why he was back and started mumbling rapidly not fully intelligibly some thing about his medications and me being his doctor here. Per d/c menu planner insurance was not approving pt zyprexa doses his was discharged on and therefore only got zyprexa 10mg qhs. Also d/c menu planner report that when adult protective agency checked on pt while he was at home after last d/c, pt not taking his medications and that they were scattered all over his apt. Adult protection agency and director of casework services recommending long acting injectable to aid with med compliance. Pt has been on invega sustenna in the past and tolerated well with benefit so will give him one time oral dose invega then administer invega sustenna 234mg im x1 today with 156mg im 3 days later provided he tolerates oral invega. Pt is agreeable. Denies SI/HI. Appears to be in mixed manic state. VITAL SIGNS: See below. NEW TEST RESULTS: triletal level 13 therapeutic CURRENT MEDICATIONS: See below. MENTAL STATUS EXAMINATION: General: clean, dressed in hospital clothes Speech: slow, low volume Thought processes: linear and logical and coherent MSK: slightly diminished movement Thought content: no longer grandiose or delusional Abstract reasoning, and computation: [place] Description of associations: more appropriate Description of abnormal or psychotic thoughts: Denies any suicidal or homicidal thoughts and AVH Judgment: fair Insight: fair Orientation: Alert and orientated 3 Cognition: Grossly normal Recent and remote memory: fair Attention span and concentration: fair Fund of knowledge: below average Mood: "tired" Affect: depressed and fatigued DIAGNOSES: Bipolar disorder, type 1, most recent episode manic. ASSESSMENT:Pt seen today in bed sleeping again and again got pt up and brought him to group to prevent him from sleeping the whole day and isolating in his room. States he's a little less fatigued this morning and that his mood is slightly improved since zyprexa d/c during the day. He continues to appear depressed, amotivatived, and flat. Will monitor for improvement with d/c day time zyprexa and will decrease nightly zyprexa to 15mg qhs to improve mood and somnolence. He states he's tolerating his other medications and feels it's beneficial for him and he denies manic symptoms and doesn't appear to be manic any longer. Per treatment team, pt's insurance was not providing him with all the doses of zyprexa he need daily and were just allowing him to have 10mg qhs which was less than half the amount (40mg/day) of zyprexa he had been taking during prior hospitalization. He appears flat and depressed today, denies SI. His speech is slow and low volume and non-spontaneous. His thoughts remain linear and logical.Per staff, pt is not agitated or confused during the night during this admission. He does not appear psychotic or grandiose. He denies SI/HI, AVH. Pt feels safe here. Continues to go to some groups, but not all and has been encouraged to go to more to help with depression. MANAGEMENT PLAN: decrease zyprexa qhs to 15mg qhs trileptal 600mg bid zyprexa 15mg qhs ativan 1mg q6hr prn anxiety/agitation zyprexa zydis 5mg q6hr prn anxiety/agitation seroquel 200mg qhs haldol 10mg tid invega sustenna 234mg im x1 01/03/19 invega sustenna 156mg im x1 01/06/19 TIME SPENT: 30 minutes. Vital Signs Vital Signs Date Time Temp Pulse Resp B/P (MAP) Pulse Ox O2 Delivery O2 Flow Rate FiO2 01/18/19 06:37 97.2 86 16 122/74 (90) Laboratory Data 24H Labs Laboratory Tests 2 01/17/19 11:40: Bedside Glucose (Misc Panel) 109H 01/17/19 17:14: Bedside Glucose (Misc Panel) 129H 01/17/19 22:22: Bedside Glucose (Misc Panel) 85 01/18/19 06:35: Bedside Glucose (Misc Panel) 76 Current Medications Current Medications Medications (Trade) Dose Ordered Sig/Kailey Route PRN Reason Start Time Stop Time Status Last Admin Dose Admin Acetaminophen (Tylenol Tab) 650 mg Q6HP PRN PO HEADACHE or DISCOMFORT 01/03/19 05:00 01/03/19 19:01 Al Hydrox/Mg Hydrox/Simethicone (Mylanta) 30 ml Q4HP PRN PO HEARTBURN/INDIGESTION 01/03/19 05:00 Amlodipine Besylate (Norvasc) 10 mg DAILY PO 01/03/19 09:00 01/17/19 08:53 Atorvastatin Calcium (Lipitor) 20 mg QHS PO 01/03/19 21:00 01/17/19 21:50 Benztropine Mesylate (Cogentin) 0.5 mg BIDP PRN PO EPS 01/03/19 22:30 01/08/19 20:41 Cetylpyridinium Chloride (Cepacol) 1 pranav Q4HP PRN PO SORE THROAT 01/04/19 10:00 01/06/19 03:53 Dextrose (Dextrose 50%) 25 ml ASDIRECTED PRN IV SEE LABEL COMMENTS 01/03/19 05:00 Gabapentin (Neurontin) 600 mg BID PO 01/03/19 09:00 01/17/19 21:50 Glucagon (Glucagon) 1 mg ASDIRECTED PRN SC SEE LABEL COMMENTS 01/03/19 05:00 Glucose (Glucose) 16 GM ASDIRECTED PRN PO SEE LABEL COMMENTS 01/03/19 05:00 Home Med (Med Rec Complete!) ASDIRECTED XX 01/03/19 05:45 01/03/19 06:07 DC Insulin Human Lispro (HumaLOG INSULIN) See Protocol Table AC SC 01/03/19 07:30 01/17/19 17:17 Insulin Human Lispro (HumaLOG INSULIN) See Protocol Table QHS SC 01/03/19 21:00 Levothyroxine Sodium (Synthroid) 100 mcg DAILY@0600 PO 01/04/19 06:00 01/18/19 06:00 Lisinopril (Prinivil) 20 mg DAILY PO 01/03/19 09:00 01/05/19 08:45 DC 01/05/19 08:12 Lisinopril (Prinivil) 40 mg DAILY PO 01/06/19 09:00 01/17/19 08:53 Lorazepam (Ativan) 2 mg Q4HP PRN IM AGITATION 01/03/19 09:45 01/04/19 10:01 DC Lorazepam (Ativan) 2 mg Q4HP PRN PO ANXIETY/AGITATION 01/04/19 10:00 01/04/19 10:09 Magnesium Hydroxide (Milk Of Magnesia) 30 ml DAILYPRN PRN PO CONSTIPATION 01/03/19 05:00 Metformin HCl (Glucophage) 1,000 mg BID@,18 PO 01/04/19 08:00 01/18/19 07:51 Miscellaneous (Unresolved Clarification Entry) SEE LABEL COMMENTS DAILY XX 01/10/19 09:00 01/10/19 10:48 DC Miscellaneous (Unresolved Clarification Entry) SEE LABEL COMMENTS DAILY XX 01/16/19 09:00 Nicotine (Nicoderm Cq 21mg) 1 patch DAILY TD 01/03/19 09:00 Olanzapine (ZyPREXA ZYDIS) 5 mg Q4HP PRN PO AGITATION 01/03/19 05:00 Olanzapine (ZyPREXA) 5 mg BID@0900,1200 PO 01/12/19 12:00 01/16/19 10:30 DC 01/16/19 09:00 Olanzapine (ZyPREXA) 10 mg BID@0900,1200 PO 01/04/19 12:00 01/12/19 10:12 DC 01/12/19 09:44 Olanzapine (ZyPREXA) 10 mg DAILY PO 01/04/19 09:00 01/04/19 11:05 DC 01/04/19 08:06 Olanzapine (ZyPREXA) 20 mg QHS PO 01/03/19 21:00 01/17/19 21:50 Oxcarbazepine (Trileptal) 600 mg BID PO 01/03/19 21:00 01/17/19 21:50 Quetiapine Fumarate (SEROquel) 200 mg QHS PO 01/03/19 21:00 01/17/19 21:49 Trazodone HCl (Desyrel) 50 mg QHSP PRN PO INSOMNIA 01/03/19 05:00 Allergies Coded Allergies: Penicillins (Verified Allergy, Intermediate, rash, 01/02/19) divalproex sodium (Verified Allergy, Unknown, 01/02/19) CLAIR STEIN DO Jan 18, 2019 9:06 am
[2019-01-18] MEDS: OXcarbazepine 300 MG TAB PO SCH ×2 (09:26→21:46)
[2019-01-18] MEDS: amLODIPine 10 MG TAB PO SCH (09:26)
[2019-01-18] MEDS: lisinopriL 20 MG TAB PO SCH (09:26)
[2019-01-18] MEDS: GABAPENTIN 300 MG CAP PO SCH ×2 (09:26→21:46)
[2019-01-18 16:18] VITALS: BP 120/76
[2019-01-18] MEDS: ATORVASTATIN 20 MG TAB PO SCH (21:46)
[2019-01-18] MEDS: OLANZapine 5 MG TAB PO SCH (21:46)
[2019-01-18] MEDS: QUEtiapine FUMARATE 200 MG TAB PO SCH (21:46)
[2019-01-19 06:00] VITALS: BP 135/74
[2019-01-19] MEDS: LEVOTHYROXINE 100MCG TABLET (0.1MG) PO SCH (06:57)
[2019-01-19] MEDS: HumaLOG INSULIN (NovoLOG) PER UNIT SC SCH ×4 (07:17→21:00)
[2019-01-19] MEDS: NICOTINE 21MG/24HR 1 EA TRANSDERMAL TD SCH (09:00)
[2019-01-19] MEDS: GABAPENTIN 300 MG CAP PO SCH ×2 (09:15→21:26)
[2019-01-19] MEDS: amLODIPine 10 MG TAB PO SCH (09:16)
[2019-01-19] MEDS: metFORMIN (GLUCOPHAGE) 1000 MG TABLET PO SCH ×2 (09:16→17:10)
[2019-01-19] MEDS: OXcarbazepine 300 MG TAB PO SCH ×2 (09:16→21:27)
[2019-01-19] MEDS: lisinopriL 20 MG TAB PO SCH (09:16)
--- NOTE | 2019-01-19 09:46 | MHIPNPDOC ---
[facility] Progress Note Progress Note DATE OF SERVICE: 01/19/19 HISTORY: Patient is a 48 -year-old , male, with psych history of bipolar 1 disorder, multiple admission [facility] and [place] the [place], recently d/c [facility] 12/28/18 for winsome with psychosis who who was [place] [facility] [place] by his outpt provider for bizarre behavior, winsome, disorganization, hyperverbal speech, endorsing non command AH of "my father" in the ED. Pt appeared manic and disorganized with nonsensical speech per [facility] ED when evaluated there. Pt is a poor historian so history gathered from previous records. Pt seen this am and laying in bed resting but arousable and asked why he was back and started mumbling rapidly not fully intelligibly some thing about his medications and me being his doctor here. Per d/c operations planner insurance was not approving pt zyprexa doses his was discharged on and therefore only got zyprexa 10mg qhs. Also d/c operations planner report that when adult protective agency checked on pt while he was at home after last d/c, pt not taking his medications and that they were scattered all over his apt. Adult protection agency and case picker recommending long acting injectable to aid with med compliance. Pt has been on invega sustenna in the past and tolerated well with benefit so will give him one time oral dose invega then administer invega sustenna 234mg im x1 today with 156mg im 3 days later provided he tolerates oral invega. Pt is agreeable. Denies SI/HI. Appears to be in mixed manic state. VITAL SIGNS: See below. NEW TEST RESULTS: triletal level 13 therapeutic CURRENT MEDICATIONS: See below. MENTAL STATUS EXAMINATION: General: clean, dressed in hospital clothes Speech: slow, low volume Thought processes: linear and logical and coherent MSK: slightly diminished movement Thought content: no longer grandiose or delusional Abstract reasoning, and computation: [place] Description of associations: more appropriate Description of abnormal or psychotic thoughts: Denies any suicidal or homicidal thoughts and AVH Judgment: fair Insight: fair Orientation: Alert and orientated 3 Cognition: Grossly normal Recent and remote memory: fair Attention span and concentration: fair Fund of knowledge: below average Mood: "better" Affect: depressed and fatigued DIAGNOSES: Bipolar disorder, type 1, most recent episode manic. ASSESSMENT:Pt seen today in [facility] [place] as he was up w/o requiring me to get him up and out of bed to go to [place] [facility] [place]. Stated he was feeling better today, less fatigued and depressed and on his way to groups curretnly when seen. He is improved with decrease in nightly zyprexa and will continue dose and monitor improvement in symptoms. Overall, he continues to appear depressed, amotivatived, and flat. He states he's tolerating his other medications and feels it's beneficial for him and he denies manic symptoms and doesn't appear to be manic any longer. Per treatment team, pt's insurance was not providing him with all the doses of zyprexa he need daily and were just allowing him to have 10mg qhs which was less than half the amount (40mg/day) of zyprexa he had been taking during prior hospitalization. He appears flat and depressed today, denies SI. His speech is slow and low volume and non-spontaneous. His thoughts remain linear and logical. Per staff, pt is not agitated or confused during the night during this admission. He does not appear psychotic or grandiose. He denies SI/HI, AVH. Pt feels safe here. Continues to go to some groups, but not all and has been encouraged to go to more to help with depression. MANAGEMENT PLAN: decrease zyprexa qhs to 15mg qhs trileptal 600mg bid zyprexa 15mg qhs ativan 1mg q6hr prn anxiety/agitation zyprexa zydis 5mg q6hr prn anxiety/agitation seroquel 200mg qhs haldol 10mg tid invega sustenna 234mg im x1 01/03/19 invega sustenna 156mg im x1 01/06/19 TIME SPENT: 30 minutes. Vital Signs Vital Signs Date Time Temp Pulse Resp B/P (MAP) Pulse Ox O2 Delivery O2 Flow Rate FiO2 01/19/19 09:16 135/74 01/19/19 09:16 68 01/19/19 06:00 98.0 16 Laboratory Data 24H Labs Laboratory Tests 2 01/18/19 11:40: Bedside Glucose (Misc Panel) 88 01/18/19 17:13: Bedside Glucose (Misc Panel) 102 01/18/19 21:59: Bedside Glucose (Misc Panel) 103 01/19/19 07:13: Bedside Glucose (Misc Panel) 78 Current Medications Current Medications Medications (Trade) Dose Ordered Sig/Kailey Route PRN Reason Start Time Stop Time Status Last Admin Dose Admin Acetaminophen (Tylenol Tab) 650 mg Q6HP PRN PO HEADACHE or DISCOMFORT 01/03/19 05:00 01/03/19 19:01 Al Hydrox/Mg Hydrox/Simethicone (Mylanta) 30 ml Q4HP PRN PO HEARTBURN/INDIGESTION 01/03/19 05:00 Amlodipine Besylate (Norvasc) 10 mg DAILY PO 01/03/19 09:00 01/19/19 09:16 Atorvastatin Calcium (Lipitor) 20 mg QHS PO 01/03/19 21:00 01/18/19 21:46 Benztropine Mesylate (Cogentin) 0.5 mg BIDP PRN PO EPS 01/03/19 22:30 01/08/19 20:41 Cetylpyridinium Chloride (Cepacol) 1 pranav Q4HP PRN PO SORE THROAT 01/04/19 10:00 01/06/19 03:53 Dextrose (Dextrose 50%) 25 ml ASDIRECTED PRN IV SEE LABEL COMMENTS 01/03/19 05:00 Gabapentin (Neurontin) 600 mg BID PO 01/03/19 09:00 01/19/19 09:15 Glucagon (Glucagon) 1 mg ASDIRECTED PRN SC SEE LABEL COMMENTS 01/03/19 05:00 Glucose (Glucose) 16 GM ASDIRECTED PRN PO SEE LABEL COMMENTS 01/03/19 05:00 Home Med (Med Rec Complete!) ASDIRECTED XX 01/03/19 05:45 01/03/19 06:07 DC Insulin Human Lispro (HumaLOG INSULIN) See Protocol Table AC SC 01/03/19 07:30 01/18/19 17:17 Insulin Human Lispro (HumaLOG INSULIN) See Protocol Table QHS SC 01/03/19 21:00 Levothyroxine Sodium (Synthroid) 100 mcg DAILY@0600 PO 01/04/19 06:00 01/19/19 06:57 Lisinopril (Prinivil) 20 mg DAILY PO 01/03/19 09:00 01/05/19 08:45 DC 01/05/19 08:12 Lisinopril (Prinivil) 40 mg DAILY PO 01/06/19 09:00 01/19/19 09:16 Lorazepam (Ativan) 2 mg Q4HP PRN IM AGITATION 01/03/19 09:45 01/04/19 10:01 DC Lorazepam (Ativan) 2 mg Q4HP PRN PO ANXIETY/AGITATION 01/04/19 10:00 01/04/19 10:09 Magnesium Hydroxide (Milk Of Magnesia) 30 ml DAILYPRN PRN PO CONSTIPATION 01/03/19 05:00 Metformin HCl (Glucophage) 1,000 mg BID@08,18 PO 01/04/19 08:00 01/19/19 09:16 Miscellaneous (Unresolved Clarification Entry) SEE LABEL COMMENTS DAILY XX 01/10/19 09:00 01/10/19 10:48 DC Miscellaneous (Unresolved Clarification Entry) SEE LABEL COMMENTS DAILY XX 01/16/19 09:00 Nicotine (Nicoderm Cq 21mg) 1 patch DAILY TD 01/03/19 09:00 Olanzapine (ZyPREXA ZYDIS) 5 mg Q4HP PRN PO AGITATION 01/03/19 05:00 Olanzapine (ZyPREXA) 5 mg BID@0900,1200 PO 01/12/19 12:00 01/16/19 10:30 DC 01/16/19 09:00 Olanzapine (ZyPREXA) 10 mg BID@0900,1200 PO 01/04/19 12:00 01/12/19 10:12 DC 01/12/19 09:44 Olanzapine (ZyPREXA) 10 mg DAILY PO 01/04/19 09:00 01/04/19 11:05 DC 01/04/19 08:06 Olanzapine (ZyPREXA) 15 mg QHS PO 01/18/19 21:00 01/18/19 21:46 Olanzapine (ZyPREXA) 20 mg QHS PO 01/03/19 21:00 01/18/19 09:06 DC 01/17/19 21:50 Oxcarbazepine (Trileptal) 600 mg BID PO 01/03/19 21:00 01/19/19 09:16 Quetiapine Fumarate (SEROquel) 200 mg QHS PO 01/03/19 21:00 01/18/19 21:46 Trazodone HCl (Desyrel) 50 mg QHSP PRN PO INSOMNIA 01/03/19 05:00 Allergies Coded Allergies: Penicillins (Verified Allergy, Intermediate, rash, 01/02/19) divalproex sodium (Verified Allergy, Unknown, 01/02/19) CLAIR STEIN DO Jan 19, 2019 9:46 am
[2019-01-19 18:00] VITALS: BP 124/71
[2019-01-19] MEDS: QUEtiapine FUMARATE 200 MG TAB PO SCH (21:26)
[2019-01-19] MEDS: ATORVASTATIN 20 MG TAB PO SCH (21:26)
[2019-01-19] MEDS: OLANZapine 5 MG TAB PO SCH (21:27)
[2019-01-20] MEDS: LEVOTHYROXINE 100MCG TABLET (0.1MG) PO SCH (06:18)
[2019-01-20 06:47] VITALS: BP 135/70
[2019-01-20] MEDS: HumaLOG INSULIN (NovoLOG) PER UNIT SC SCH ×4 (07:30→21:00)
[2019-01-20] MEDS: lisinopriL 20 MG TAB PO SCH (08:26)
[2019-01-20] MEDS: metFORMIN (GLUCOPHAGE) 1000 MG TABLET PO SCH ×2 (08:26→17:18)
[2019-01-20] MEDS: amLODIPine 10 MG TAB PO SCH (08:26)
[2019-01-20] MEDS: GABAPENTIN 300 MG CAP PO SCH ×2 (08:27→20:59)
[2019-01-20] MEDS: OXcarbazepine 300 MG TAB PO SCH ×2 (08:27→20:59)
[2019-01-20] MEDS: NICOTINE 21MG/24HR 1 EA TRANSDERMAL TD SCH (08:52)
--- NOTE | 2019-01-20 09:06 | MHIPNPDOC ---
[facility] Progress Note Progress Note DATE OF SERVICE: 01/20/19 HISTORY: Patient is a 48 -year-old , male, with psych history of bipolar 1 disorder, multiple admission [facility] and elsewhere ([facility] [place]) in the past, recently d/c [facility] 12/28/18 for winsome with psychosis who who was transferred from [facility] after sent there by his outpt provider for bizarre behavior, winsome, disorganization, hyperverbal speech, endorsing non command AH of "my father" in the ED. Pt appeared manic and disorganized with nonsensical speech per [facility] ED when evaluated there. Pt is a poor historian so history gathered from previous records. Pt seen this am and laying in bed resting but arousable and asked why he was back and started mumbling rapidly not fully intelligibly some thing about his medications and me being his doctor here. Per d/c exercise planner insurance was not approving pt zyprexa doses his was discharged on and therefore only got zyprexa 10mg qhs. Also d/c exercise planner report that when adult protective agency checked on pt while he was at home after last d/c, pt not taking his medications and that they were scattered all over his apt. Adult protection agency and bilingual case manager recommending long acting injectable to aid with med compliance. Pt has been on invega sustenna in the past and tolerated well with benefit so will give him one time oral dose invega then administer invega sustenna 234mg im x1 today with 156mg im 3 days later provided he tolerates oral invega. Pt is agreeable. Denies SI/HI. Appears to be in mixed manic state. VITAL SIGNS: See below. NEW TEST RESULTS: triletal level 13 therapeutic CURRENT MEDICATIONS: See below. MENTAL STATUS EXAMINATION: General: clean, dressed in hospital clothes Speech: slow, low volume Thought processes: linear and logical and coherent MSK: slightly diminished movement Thought content: no longer grandiose or delusional Abstract reasoning, and computation: [place] Description of associations: more appropriate Description of abnormal or psychotic thoughts: Denies any suicidal or homicidal thoughts and AVH Judgment: fair Insight: fair Orientation: Alert and orientated 3 Cognition: Grossly normal Recent and remote memory: fair Attention span and concentration: fair Fund of knowledge: below average Mood: "ok" Affect: depressed and less fatigued DIAGNOSES: Bipolar disorder, type 1, most recent episode manic. ASSESSMENT:Pt seen today in the [facility] again. States he's starting to feel more awake daily and is therefor feeling less depressed. He is improved with decrease in nightly zyprexa and will continue dose and monitor improvement in symptoms. Overall, he continues to appear depressed, amotivatived, and flat. He states he's tolerating his other medications and feels it's beneficial for him and he denies manic symptoms and doesn't appear to be manic any longer. Per treatment team, pt's insurance was not providing him with all the doses of zyprexa he need daily and were just allowing him to have 10mg qhs which was less than half the amount (40mg/day) of zyprexa he had been taking during prior hospitalization. He appears flat and depressed today, denies SI. His speech is slow and low volume and non-spontaneous. His thoughts remain linear and logical. Per staff, pt is not agitated or confused during the night during this admission. He does not appear psychotic or grandiose. He denies SI/HI, AVH. Pt feels safe here. Continues to go to some groups, but not all and has been encouraged to go to more to help with depression. MANAGEMENT PLAN: decrease zyprexa qhs to 15mg qhs trileptal 600mg bid zyprexa 15mg qhs ativan 1mg q6hr prn anxiety/agitation zyprexa zydis 5mg q6hr prn anxiety/agitation seroquel 200mg qhs haldol 10mg tid invega sustenna 234mg im x1 01/03/19 invega sustenna 156mg im x1 01/06/19 TIME SPENT: 30 minutes. Vital Signs Vital Signs Date Time Temp Pulse Resp B/P (MAP) Pulse Ox O2 Delivery O2 Flow Rate FiO2 01/20/19 08:26 129/70 01/20/19 08:26 104 01/20/19 06:47 98.4 18 Laboratory Data 24H Labs Laboratory Tests 2 01/19/19 12:04: Bedside Glucose (Misc Panel) 106H 01/19/19 17:06: Bedside Glucose (Misc Panel) 108H 01/19/19 21:23: Bedside Glucose (Misc Panel) 78 01/20/19 06:28: Bedside Glucose (Misc Panel) 81 Current Medications Current Medications Medications (Trade) Dose Ordered Sig/Kailey Route PRN Reason Start Time Stop Time Status Last Admin Dose Admin Acetaminophen (Tylenol Tab) 650 mg Q6HP PRN PO HEADACHE or DISCOMFORT 01/03/19 05:00 01/03/19 19:01 Al Hydrox/Mg Hydrox/Simethicone (Mylanta) 30 ml Q4HP PRN PO HEARTBURN/INDIGESTION 01/03/19 05:00 Amlodipine Besylate (Norvasc) 10 mg DAILY PO 01/03/19 09:00 01/20/19 08:26 Atorvastatin Calcium (Lipitor) 20 mg QHS PO 01/03/19 21:00 01/19/19 21:26 Benztropine Mesylate (Cogentin) 0.5 mg BIDP PRN PO EPS 01/03/19 22:30 01/08/19 20:41 Cetylpyridinium Chloride (Cepacol) 1 pranav Q4HP PRN PO SORE THROAT 01/04/19 10:00 01/06/19 03:53 Dextrose (Dextrose 50%) 25 ml ASDIRECTED PRN IV SEE LABEL COMMENTS 01/03/19 05:00 Gabapentin (Neurontin) 600 mg BID PO 01/03/19 09:00 01/20/19 08:27 Glucagon (Glucagon) 1 mg ASDIRECTED PRN SC SEE LABEL COMMENTS 01/03/19 05:00 Glucose (Glucose) 16 GM ASDIRECTED PRN PO SEE LABEL COMMENTS 01/03/19 05:00 Home Med (Med Rec Complete!) ASDIRECTED XX 01/03/19 05:45 01/03/19 06:07 DC Insulin Human Lispro (HumaLOG INSULIN) See Protocol Table AC SC 01/03/19 07:30 01/19/19 17:30 Insulin Human Lispro (HumaLOG INSULIN) See Protocol Table QHS SC 01/03/19 21:00 Levothyroxine Sodium (Synthroid) 100 mcg DAILY@0600 PO 01/04/19 06:00 01/20/19 06:18 Lisinopril (Prinivil) 20 mg DAILY PO 01/03/19 09:00 01/05/19 08:45 DC 01/05/19 08:12 Lisinopril (Prinivil) 40 mg DAILY PO 01/06/19 09:00 01/20/19 08:26 Lorazepam (Ativan) 2 mg Q4HP PRN IM AGITATION 01/03/19 09:45 01/04/19 10:01 DC Lorazepam (Ativan) 2 mg Q4HP PRN PO ANXIETY/AGITATION 01/04/19 10:00 01/04/19 10:09 Magnesium Hydroxide (Milk Of Magnesia) 30 ml DAILYPRN PRN PO CONSTIPATION 01/03/19 05:00 Metformin HCl (Glucophage) 1,000 mg BID@18 PO 01/04/19 08:00 01/20/19 08:26 Miscellaneous (Unresolved Clarification Entry) SEE LABEL COMMENTS DAILY XX 01/10/19 09:00 01/10/19 10:48 DC Miscellaneous (Unresolved Clarification Entry) SEE LABEL COMMENTS DAILY XX 01/16/19 09:00 Nicotine (Nicoderm Cq 21mg) 1 patch DAILY TD 01/03/19 09:00 Olanzapine (ZyPREXA ZYDIS) 5 mg Q4HP PRN PO AGITATION 01/03/19 05:00 Olanzapine (ZyPREXA) 5 mg BID@0900,1200 PO 01/12/19 12:00 01/16/19 10:30 DC 01/16/19 09:00 Olanzapine (ZyPREXA) 10 mg BID@0900,1200 PO 01/04/19 12:00 01/12/19 10:12 DC 01/12/19 09:44 Olanzapine (ZyPREXA) 10 mg DAILY PO 01/04/19 09:00 01/04/19 11:05 DC 01/04/19 08:06 Olanzapine (ZyPREXA) 15 mg QHS PO 01/18/19 21:00 01/19/19 21:27 Olanzapine (ZyPREXA) 20 mg QHS PO 01/03/19 21:00 01/18/19 09:06 DC 01/17/19 21:50 Oxcarbazepine (Trileptal) 600 mg BID PO 01/03/19 21:00 01/20/19 08:27 Quetiapine Fumarate (SEROquel) 200 mg QHS PO 01/03/19 21:00 01/19/19 21:26 Trazodone HCl (Desyrel) 50 mg QHSP PRN PO INSOMNIA 01/03/19 05:00 Allergies Coded Allergies: Penicillins (Verified Allergy, Intermediate, rash, 01/02/19) divalproex sodium (Verified Allergy, Unknown, 01/02/19) CLAIR STEIN DO Jan 20, 2019 9:06 am
[2019-01-20 15:47] VITALS: BP 106/59
[2019-01-20] MEDS: QUEtiapine FUMARATE 200 MG TAB PO SCH (20:58)
[2019-01-20] MEDS: ATORVASTATIN 20 MG TAB PO SCH (20:59)
[2019-01-20] MEDS: OLANZapine 5 MG TAB PO SCH (20:59)
[2019-01-21] MEDS: LEVOTHYROXINE 100MCG TABLET (0.1MG) PO SCH (06:25)
[2019-01-21] MEDS: HumaLOG INSULIN (NovoLOG) PER UNIT SC SCH ×4 (06:38→20:47)
[2019-01-21 07:02] VITALS: BP 113/69
[2019-01-21] MEDS: OXcarbazepine 300 MG TAB PO SCH ×2 (08:35→20:46)
[2019-01-21] MEDS: amLODIPine 10 MG TAB PO SCH (08:35)
[2019-01-21] MEDS: GABAPENTIN 300 MG CAP PO SCH ×2 (08:35→20:46)
[2019-01-21] MEDS: NICOTINE 21MG/24HR 1 EA TRANSDERMAL TD SCH (08:36)
[2019-01-21] MEDS: metFORMIN (GLUCOPHAGE) 1000 MG TABLET PO SCH ×2 (08:36→17:03)
[2019-01-21] MEDS: lisinopriL 20 MG TAB PO SCH (08:36)
[2019-01-21 16:09] VITALS: BP 139/67
[2019-01-21] MEDS: QUEtiapine FUMARATE 200 MG TAB PO SCH (20:46)
[2019-01-21] MEDS: OLANZapine 5 MG TAB PO SCH (20:46)
[2019-01-21] MEDS: ATORVASTATIN 20 MG TAB PO SCH (20:46)
[2019-01-22] MEDS: LEVOTHYROXINE 100MCG TABLET (0.1MG) PO SCH (06:10)
[2019-01-22] MEDS: HumaLOG INSULIN (NovoLOG) PER UNIT SC SCH ×4 (06:40→21:00)
[2019-01-22 06:47] VITALS: BP 135/77
[2019-01-22] MEDS: metFORMIN (GLUCOPHAGE) 1000 MG TABLET PO SCH ×2 (07:47→17:09)
[2019-01-22] MEDS: amLODIPine 10 MG TAB PO SCH (08:31)
[2019-01-22] MEDS: lisinopriL 20 MG TAB PO SCH (08:31)
[2019-01-22] MEDS: NICOTINE 21MG/24HR 1 EA TRANSDERMAL TD SCH (08:31)
[2019-01-22] MEDS: GABAPENTIN 300 MG CAP PO SCH ×2 (08:31→21:12)
[2019-01-22] MEDS: OXcarbazepine 300 MG TAB PO SCH ×2 (08:31→21:12)
[2019-01-22 16:10] VITALS: BP 100/59
[2019-01-22] MEDS: ATORVASTATIN 20 MG TAB PO SCH (21:12)
[2019-01-22] MEDS: OLANZapine 5 MG TAB PO SCH (21:12)
[2019-01-22] MEDS: QUEtiapine FUMARATE 200 MG TAB PO SCH (21:12)
[2019-01-23] MEDS: LEVOTHYROXINE 100MCG TABLET (0.1MG) PO SCH (06:19)
[2019-01-23 06:37] VITALS: BP 126/71
[2019-01-23] MEDS: HumaLOG INSULIN (NovoLOG) PER UNIT SC SCH ×4 (07:15→21:00)
[2019-01-23] MEDS: NICOTINE 21MG/24HR 1 EA TRANSDERMAL TD SCH (08:38)
[2019-01-23] MEDS: lisinopriL 20 MG TAB PO SCH (09:01)
[2019-01-23] MEDS: GABAPENTIN 300 MG CAP PO SCH ×2 (09:01→21:00)
[2019-01-23] MEDS: amLODIPine 10 MG TAB PO SCH (09:01)
[2019-01-23] MEDS: OXcarbazepine 300 MG TAB PO SCH ×2 (09:01→21:00)
[2019-01-23] MEDS: metFORMIN (GLUCOPHAGE) 1000 MG TABLET PO SCH ×2 (09:01→17:36)
--- NOTE | 2019-01-23 09:56 | MHIPNPDOC ---
[facility] Progress Note Progress Note DATE OF SERVICE: 01/23/19 HISTORY: Patient is a 48 -year-old , male, with psych history of bipolar 1 disorder, multiple admission [facility] and elsewhere ([facility] [place] in the past, recently d/c [facility] 12/28/18 for winsome with psychosis who who was transferred from [facility] [place] [place] after sent there by his outpt provider for bizarre behavior, winsome, disorganization, hyperverbal speech, endorsing non command AH of "my father" in the ED. Pt appeared manic and disorganized with nonsensical speech per [facility] ED when evaluated there. Pt is a poor historian so history gathered from previous records. Pt seen this am and laying in bed resting but arousable and asked why he was back and started mumbling rapidly not fully intelligibly some thing about his medications and me being his doctor here. Per d/c workforce planner insurance was not approving pt zyprexa doses his was discharged on and therefore only got zyprexa 10mg qhs. Also d/c workforce planner report that when adult protective agency checked on pt while he was at home after last d/c, pt not taking his medications and that they were scattered all over his apt. Adult protection agency and employment case manager recommending long acting injectable to aid with med compliance. Pt has been on invega sustenna in the past and tolerated well with benefit so will give him one time oral dose invega then administer invega sustenna 234mg im x1 today with 156mg im 3 days later provided he tolerates oral invega. Pt is agreeable. Denies SI/HI. Appears to be in mixed manic state. VITAL SIGNS: See below. NEW TEST RESULTS: triletal level 13 therapeutic CURRENT MEDICATIONS: See below. MENTAL STATUS EXAMINATION: General: clean, dressed in hospital clothes Speech: slow, low volume Thought processes: linear and logical and coherent MSK: slightly diminished movement Thought content: no longer grandiose or delusional Abstract reasoning, and computation: [place] Description of associations: more appropriate Description of abnormal or psychotic thoughts: Denies any suicidal or homicidal thoughts and AVH Judgment: fair Insight: fair Orientation: Alert and orientated 3 Cognition: Grossly normal Recent and remote memory: fair Attention span and concentration: fair Fund of knowledge: below average Mood: "ok" Affect: depressed and less fatigued DIAGNOSES: Bipolar disorder, type 1, most recent episode manic. ASSESSMENT:Pt seen today in the [facility] again. States he's starting to feel more awake daily and is therefor feeling less depressed. He is improved with decrease in nightly zyprexa and will continue dose and monitor improvement in symptoms. Overall, he continues to appear depressed, amotivatived, and flat. He states he's tolerating his other medications and feels it's beneficial for him and he denies manic symptoms and doesn't appear to be manic any longer. Per treatment team, pt's insurance was not providing him with all the doses of zyprexa he need daily and were just allowing him to have 10mg qhs which was less than half the amount (40mg/day) of zyprexa he had been taking during prior hospitalization. He appears flat and depressed today, denies SI. His speech is slow and low volume and non-spontaneous. His thoughts remain linear and logical. Per staff, pt is not agitated or confused during the night during this admission. He does not appear psychotic or grandiose. He denies SI/HI, AVH. Pt feels safe here. Continues to go to some groups, but not all and has been encouraged to go to more to help with depression. MANAGEMENT PLAN: continue plan trileptal 600mg bid zyprexa 15mg qhs ativan 1mg q6hr prn anxiety/agitation zyprexa zydis 5mg q6hr prn anxiety/agitation seroquel 200mg qhs haldol 10mg tid invega sustenna 234mg im x1 01/03/19 invega sustenna 156mg im x1 01/06/19 TIME SPENT: 30 minutes. Vital Signs Vital Signs Date Time Temp Pulse Resp B/P (MAP) Pulse Ox O2 Delivery O2 Flow Rate FiO2 01/23/19 09:01 95 133/73 01/23/19 06:37 97.9 14 Laboratory Data 24H Labs Laboratory Tests 2 01/22/19 12:10: Bedside Glucose (Misc Panel) 68L 01/22/19 17:07: Bedside Glucose (Misc Panel) 126H 01/22/19 21:09: Bedside Glucose (Misc Panel) 105 01/23/19 06:18: Bedside Glucose (Misc Panel) 87 Current Medications Current Medications Medications (Trade) Dose Ordered Sig/Kailey Route PRN Reason Start Time Stop Time Status Last Admin Dose Admin Acetaminophen (Tylenol Tab) 650 mg Q6HP PRN PO HEADACHE or DISCOMFORT 01/03/19 05:00 01/03/19 19:01 Al Hydrox/Mg Hydrox/Simethicone (Mylanta) 30 ml Q4HP PRN PO HEARTBURN/INDIGESTION 01/03/19 05:00 Amlodipine Besylate (Norvasc) 10 mg DAILY PO 01/03/19 09:00 01/23/19 09:01 Atorvastatin Calcium (Lipitor) 20 mg QHS PO 01/03/19 21:00 01/22/19 21:12 Benztropine Mesylate (Cogentin) 0.5 mg BIDP PRN PO EPS 01/03/19 22:30 01/08/19 20:41 Cetylpyridinium Chloride (Cepacol) 1 pranav Q4HP PRN PO SORE THROAT 01/04/19 10:00 01/06/19 03:53 Dextrose (Dextrose 50%) 25 ml ASDIRECTED PRN IV SEE LABEL COMMENTS 01/03/19 05:00 Gabapentin (Neurontin) 600 mg BID PO 01/03/19 09:00 01/23/19 09:01 Glucagon (Glucagon) 1 mg ASDIRECTED PRN SC SEE LABEL COMMENTS 01/03/19 05:00 Glucose (Glucose) 16 GM ASDIRECTED PRN PO SEE LABEL COMMENTS 01/03/19 05:00 Home Med (Med Rec Complete!) ASDIRECTED XX 01/03/19 05:45 01/03/19 06:07 DC Insulin Human Lispro (HumaLOG INSULIN) See Protocol Table AC SC 01/03/19 07:30 01/22/19 17:09 Insulin Human Lispro (HumaLOG INSULIN) See Protocol Table QHS SC 01/03/19 21:00 Levothyroxine Sodium (Synthroid) 100 mcg DAILY@0600 PO 01/04/19 06:00 01/23/19 06:19 Lisinopril (Prinivil) 20 mg DAILY PO 01/03/19 09:00 01/05/19 08:45 DC 01/05/19 08:12 Lisinopril (Prinivil) 40 mg DAILY PO 01/06/19 09:00 01/23/19 09:01 Lorazepam (Ativan) 2 mg Q4HP PRN IM AGITATION 01/03/19 09:45 01/04/19 10:01 DC Lorazepam (Ativan) 2 mg Q4HP PRN PO ANXIETY/AGITATION 01/04/19 10:00 01/04/19 10:09 Magnesium Hydroxide (Milk Of Magnesia) 30 ml DAILYPRN PRN PO CONSTIPATION 01/03/19 05:00 Metformin HCl (Glucophage) 1,000 mg BID@08,18 PO 01/04/19 08:00 01/23/19 09:01 Miscellaneous (Unresolved Clarification Entry) SEE LABEL COMMENTS DAILY XX 01/10/19 09:00 01/10/19 10:48 DC Miscellaneous (Unresolved Clarification Entry) SEE LABEL COMMENTS DAILY XX 01/16/19 09:00 Nicotine (Nicoderm Cq 21mg) 1 patch DAILY TD 01/03/19 09:00 Olanzapine (ZyPREXA ZYDIS) 5 mg Q4HP PRN PO AGITATION 01/03/19 05:00 Olanzapine (ZyPREXA) 5 mg BID@0900,1200 PO 01/12/19 12:00 01/16/19 10:30 DC 01/16/19 09:00 Olanzapine (ZyPREXA) 10 mg BID@0900,1200 PO 01/04/19 12:00 01/12/19 10:12 DC 01/12/19 09:44 Olanzapine (ZyPREXA) 10 mg DAILY PO 01/04/19 09:00 01/04/19 11:05 DC 01/04/19 08:06 Olanzapine (ZyPREXA) 15 mg QHS PO 01/18/19 21:00 01/22/19 21:12 Olanzapine (ZyPREXA) 20 mg QHS PO 01/03/19 21:00 01/18/19 09:06 DC 01/17/19 21:50 Oxcarbazepine (Trileptal) 600 mg BID PO 01/03/19 21:00 01/23/19 09:01 Quetiapine Fumarate (SEROquel) 200 mg QHS PO 01/03/19 21:00 01/22/19 21:12 Trazodone HCl (Desyrel) 50 mg QHSP PRN PO INSOMNIA 01/03/19 05:00 Allergies Coded Allergies: Penicillins (Verified Allergy, Intermediate, rash, 01/02/19) divalproex sodium (Verified Allergy, Unknown, 01/02/19) CLAIR STEIN DO Jan 23, 2019 9:56 am
[2019-01-23 15:43] VITALS: BP 103/56
[2019-01-23] MEDS: OLANZapine 5 MG TAB PO SCH (21:00)
[2019-01-23] MEDS: ATORVASTATIN 20 MG TAB PO SCH (21:00)
[2019-01-23] MEDS: QUEtiapine FUMARATE 200 MG TAB PO SCH (21:00)
[2019-01-24] MEDS: LEVOTHYROXINE 100MCG TABLET (0.1MG) PO SCH (06:09)
[2019-01-24 06:25] VITALS: BP 124/66
[2019-01-24] MEDS: HumaLOG INSULIN (NovoLOG) PER UNIT SC SCH ×4 (07:30→21:00)
[2019-01-24] MEDS: metFORMIN (GLUCOPHAGE) 1000 MG TABLET PO SCH ×2 (08:34→17:25)
[2019-01-24] MEDS: GABAPENTIN 300 MG CAP PO SCH ×2 (08:34→21:20)
[2019-01-24] MEDS: OXcarbazepine 300 MG TAB PO SCH ×2 (08:34→21:19)
[2019-01-24] MEDS: amLODIPine 10 MG TAB PO SCH (08:35)
[2019-01-24] MEDS: lisinopriL 20 MG TAB PO SCH (08:35)
[2019-01-24] MEDS: NICOTINE 21MG/24HR 1 EA TRANSDERMAL TD SCH (08:36)
--- NOTE | 2019-01-24 09:16 | MHIPNPDOC ---
[facility] Progress Note Progress Note DATE OF SERVICE: 01/24/19 HISTORY: Patient is a 48 -year-old , male, with psych history of bipolar 1 disorder, multiple admission [facility] and elsewhere ([facility] [facility]) in the past, recently d/c [facility] 12/28/18 for winsome with psychosis who who was transferred from [facility] [place] after sent there by his outpt provider for bizarre behavior, winsome, disorganization, hyperverbal speech, endorsing non command AH of "my father" in the ED. Pt appeared manic and disorganized with nonsensical speech per [facility] ED when evaluated there. Pt is a poor historian so history gathered from previous records. Pt seen this am and laying in bed resting but arousable and asked why he was back and started mumbling rapidly not fully intelligibly some thing about his medications and me being his doctor here. Per d/c discharge planner insurance was not approving pt zyprexa doses his was discharged on and therefore only got zyprexa 10mg qhs. Also d/c discharge planner report that when adult protective agency checked on pt while he was at home after last d/c, pt not taking his medications and that they were scattered all over his apt. Adult protection agency and binder caser recommending long acting injectable to aid with med compliance. Pt has been on invega sustenna in the past and tolerated well with benefit so will give him one time oral dose invega then administer invega sustenna 234mg im x1 today with 156mg im 3 days later provided he tolerates oral invega. Pt is agreeable. Denies SI/HI. Appears to be in mixed manic state. VITAL SIGNS: See below. NEW TEST RESULTS: triletal level 13 therapeutic CURRENT MEDICATIONS: See below. MENTAL STATUS EXAMINATION: General: clean, dressed in hospital clothes Speech: slow, low volume Thought processes: linear and logical and coherent MSK: slightly diminished movement Thought content: no longer grandiose or delusional Abstract reasoning, and computation: [place] Description of associations: more appropriate Description of abnormal or psychotic thoughts: Denies any suicidal or homicidal thoughts and AVH Judgment: fair Insight: fair Orientation: Alert and orientated 3 Cognition: Grossly normal Recent and remote memory: fair Attention span and concentration: fair Fund of knowledge: below average Mood: "alright" Affect: less depressed and less fatigued DIAGNOSES: Bipolar disorder, type 1, most recent episode manic. ASSESSMENT:Pt seen today in my office after he had been in day room socializing with his peers. Pt states his mood is alright and he feels like himself, not depressed, just continually mildly fatigued which is why his affect appears flat. Pt was in bed most of the day yesterday and highly encouraged to stay out of bed all day and attend all groups as it is very concerning that he is still at times amotivated. States he's starting to feel more awake daily and is therefor feeling less depressed. He is improved with decrease in nightly zyprexa and will continue dose and monitor improvement in symptoms. Overall, he continues to appear depressed, amotivatived, and flat and hopeful thru pt actively staying awake on unit this will improve. He states he's tolerating his other medications and feels it's beneficial for him and he denies manic symptoms and doesn't appear to be manic any longer. He appears flat and depressed today, denies SI. His speech is slow and low volume and non-spontaneous. His thoughts remain linear and logical. He does not appear psychotic or grandiose. He denies SI/HI, AVH. Pt feels safe here. MANAGEMENT PLAN: d/c planning home with follow-up at [facility] trileptal 600mg bid zyprexa 15mg qhs ativan 1mg q6hr prn anxiety/agitation zyprexa zydis 5mg q6hr prn anxiety/agitation seroquel 200mg qhs haldol 10mg tid invega sustenna 234mg im x1 01/03/19 invega sustenna 156mg im x1 01/06/19 Vital Signs Vital Signs Date Time Temp Pulse Resp B/P (MAP) Pulse Ox O2 Delivery O2 Flow Rate FiO2 01/24/19 08:35 66 124/66 01/24/19 06:25 98.9 16 Laboratory Data 24H Labs Laboratory Tests 2 01/23/19 11:48: Bedside Glucose (Misc Panel) 94 01/23/19 16:25: Bedside Glucose (Misc Panel) 97 01/23/19 20:56: Bedside Glucose (Misc Panel) 144H 01/24/19 06:14: Bedside Glucose (Misc Panel) 77 Current Medications Current Medications Medications (Trade) Dose Ordered Sig/Kailey Route PRN Reason Start Time Stop Time Status Last Admin Dose Admin Acetaminophen (Tylenol Tab) 650 mg Q6HP PRN PO HEADACHE or DISCOMFORT 01/03/19 05:00 01/03/19 19:01 Al Hydrox/Mg Hydrox/Simethicone (Mylanta) 30 ml Q4HP PRN PO HEARTBURN/INDIGESTION 01/03/19 05:00 Amlodipine Besylate (Norvasc) 10 mg DAILY PO 01/03/19 09:00 01/24/19 08:35 Atorvastatin Calcium (Lipitor) 20 mg QHS PO 01/03/19 21:00 01/23/19 21:00 Benztropine Mesylate (Cogentin) 0.5 mg BIDP PRN PO EPS 01/03/19 22:30 01/08/19 20:41 Cetylpyridinium Chloride (Cepacol) 1 pranav Q4HP PRN PO SORE THROAT 01/04/19 10:00 01/06/19 03:53 Dextrose (Dextrose 50%) 25 ml ASDIRECTED PRN IV SEE LABEL COMMENTS 01/03/19 05:00 Gabapentin (Neurontin) 600 mg BID PO 01/03/19 09:00 01/24/19 08:34 Glucagon (Glucagon) 1 mg ASDIRECTED PRN SC SEE LABEL COMMENTS 01/03/19 05:00 Glucose (Glucose) 16 GM ASDIRECTED PRN PO SEE LABEL COMMENTS 01/03/19 05:00 Home Med (Med Rec Complete!) ASDIRECTED XX 01/03/19 05:45 01/03/19 06:07 DC Insulin Human Lispro (HumaLOG INSULIN) See Protocol Table AC SC 01/03/19 07:30 01/22/19 17:09 Insulin Human Lispro (HumaLOG INSULIN) See Protocol Table QHS SC 01/03/19 21:00 Levothyroxine Sodium (Synthroid) 100 mcg DAILY@0600 PO 01/04/19 06:00 01/24/19 06:09 Lisinopril (Prinivil) 20 mg DAILY PO 01/03/19 09:00 01/05/19 08:45 DC 01/05/19 08:12 Lisinopril (Prinivil) 40 mg DAILY PO 01/06/19 09:00 01/24/19 08:35 Lorazepam (Ativan) 2 mg Q4HP PRN IM AGITATION 01/03/19 09:45 01/04/19 10:01 DC Lorazepam (Ativan) 2 mg Q4HP PRN PO ANXIETY/AGITATION 01/04/19 10:00 01/04/19 10:09 Magnesium Hydroxide (Milk Of Magnesia) 30 ml DAILYPRN PRN PO CONSTIPATION 01/03/19 05:00 Metformin HCl (Glucophage) 1,000 mg BID@08,18 PO 01/04/19 08:00 01/24/19 08:34 Miscellaneous (Unresolved Clarification Entry) SEE LABEL COMMENTS DAILY XX 01/10/19 09:00 01/10/19 10:48 DC Miscellaneous (Unresolved Clarification Entry) SEE LABEL COMMENTS DAILY XX 01/16/19 09:00 01/23/19 12:34 DC Nicotine (Nicoderm Cq 21mg) 1 patch DAILY TD 01/03/19 09:00 Olanzapine (ZyPREXA ZYDIS) 5 mg Q4HP PRN PO AGITATION 01/03/19 05:00 Olanzapine (ZyPREXA) 5 mg BID@0900,1200 PO 01/12/19 12:00 01/16/19 10:30 DC 01/16/19 09:00 Olanzapine (ZyPREXA) 10 mg BID@0900,1200 PO 01/04/19 12:00 01/12/19 10:12 DC 01/12/19 09:44 Olanzapine (ZyPREXA) 10 mg DAILY PO 01/04/19 09:00 01/04/19 11:05 DC 01/04/19 08:06 Olanzapine (ZyPREXA) 15 mg QHS PO 01/18/19 21:00 01/23/19 21:00 Olanzapine (ZyPREXA) 20 mg QHS PO 01/03/19 21:00 01/18/19 09:06 DC 01/17/19 21:50 Oxcarbazepine (Trileptal) 600 mg BID PO 01/03/19 21:00 01/24/19 08:34 Quetiapine Fumarate (SEROquel) 200 mg QHS PO 01/03/19 21:00 01/23/19 21:00 Trazodone HCl (Desyrel) 50 mg QHSP PRN PO INSOMNIA 01/03/19 05:00 Allergies Coded Allergies: Penicillins (Verified Allergy, Intermediate, rash, 01/02/19) divalproex sodium (Verified Allergy, Unknown, 01/02/19) CLAIR STEIN DO Jan 24, 2019 8:57 am
[2019-01-24 17:51] VITALS: BP 116/60
[2019-01-24] MEDS: ATORVASTATIN 20 MG TAB PO SCH (21:20)
[2019-01-24] MEDS: QUEtiapine FUMARATE 200 MG TAB PO SCH (21:20)
[2019-01-24] MEDS: OLANZapine 5 MG TAB PO SCH (21:20)
[2019-01-25] MEDS: LEVOTHYROXINE 100MCG TABLET (0.1MG) PO SCH (05:32)
[2019-01-25] MEDS: HumaLOG INSULIN (NovoLOG) PER UNIT SC SCH ×4 (05:42→21:00)
[2019-01-25 06:30] VITALS: BP 124/66
[2019-01-25] MEDS: GABAPENTIN 300 MG CAP PO SCH ×2 (08:36→21:16)
[2019-01-25] MEDS: OXcarbazepine 300 MG TAB PO SCH ×2 (08:36→21:15)
[2019-01-25] MEDS: metFORMIN (GLUCOPHAGE) 1000 MG TABLET PO SCH ×2 (08:36→16:57)
[2019-01-25] MEDS: NICOTINE 21MG/24HR 1 EA TRANSDERMAL TD SCH (08:37)
[2019-01-25] MEDS: lisinopriL 20 MG TAB PO SCH (08:37)
[2019-01-25] MEDS: amLODIPine 10 MG TAB PO SCH (08:37)
--- NOTE | 2019-01-25 09:46 | MHIPNPDOC ---
[facility] Progress Note Progress Note DATE OF SERVICE: 01/25/19 HISTORY: Patient is a 48 -year-old , male, with psych history of bipolar 1 disorder, multiple admission [facility] and [place] in the past, recently d/c [facility] 12/28/18 for winsome with psychosis who who was [place] [facility] [place] sent there by his outpt provider for bizarre behavior, winsome, disorganization, hyperverbal speech, endorsing non command AH of "my father" in the ED. Pt appeared manic and disorganized with nonsensical speech per [facility] ED when evaluated there. Pt is a poor historian so history gathered from previous records. Pt seen this am and laying in bed resting but arousable and asked why he was back and started mumbling rapidly not fully intelligibly some thing about his medications and me being his doctor here. Per d/c farm planner insurance was not approving pt zyprexa doses his was discharged on and therefore only got zyprexa 10mg qhs. Also d/c farm planner report that when adult protective agency checked on pt while he was at home after last d/c, pt not taking his medications and that they were scattered all over his apt. Adult protection agency and mental health case manager recommending long acting injectable to aid with med compliance. Pt has been on invega sustenna in the past and tolerated well with benefit so will give him one time oral dose invega then administer invega sustenna 234mg im x1 today with 156mg im 3 days later provided he tolerates oral invega. Pt is agreeable. Denies SI/HI. Appears to be in mixed manic state. VITAL SIGNS: See below. NEW TEST RESULTS: triletal level 13 therapeutic CURRENT MEDICATIONS: See below. MENTAL STATUS EXAMINATION: General: clean, dressed in hospital clothes Speech: reg rate/volume, spontaneous Thought processes: linear and logical and coherent MSK: slightly diminished movement Thought content: no longer grandiose or delusional Abstract reasoning, and computation: [place] Description of associations: more appropriate Description of abnormal or psychotic thoughts: Denies any suicidal or homicidal thoughts and AVH Judgment: fair Insight: fair Orientation: Alert and orientated 3 Cognition: Grossly normal Recent and remote memory: fair Attention span and concentration: fair Fund of knowledge: below average Mood: "good" Affect: more euthymic and full DIAGNOSES: Bipolar disorder, type 1, most recent episode manic. ASSESSMENT:Pt seen today in today in his room stating he's feeling much more like himself, not depressed, and would like to go home tomorrow. Pt does sound and appear to have improved depression and at his baseline status. States he went to all the groups yesterday and plans to go to all of them today as he's finding it helpful for his mood and motivation. Pt states his mood is "good" and he feels like himself, not depressed, denies fatigue, and does not appear flat. He states he's tolerating his other medications and feels it's beneficial for him and he denies manic symptoms and doesn't appear to be manic any longer. He denies SI. His speech is more reg rate/volume and spontaneous. His thoughts remain linear and logical. He does not appear psychotic or grandiose. He denies SI/HI, AVH. Pt feels safe here. MANAGEMENT PLAN: d/c planning home with follow-up at [facility] tomorrow trileptal 600mg bid zyprexa 15mg qhs ativan 1mg q6hr prn anxiety/agitation zyprexa zydis 5mg q6hr prn anxiety/agitation seroquel 200mg qhs haldol 10mg tid invega sustenna 234mg im x1 01/03/19 invega sustenna 156mg im x1 01/06/19 Vital Signs Vital Signs Date Time Temp Pulse Resp B/P (MAP) Pulse Ox O2 Delivery O2 Flow Rate FiO2 01/25/19 08:37 124/66 01/25/19 08:37 61 01/25/19 06:30 97.5 16 Laboratory Data 24H Labs Laboratory Tests 2 01/24/19 11:41: Bedside Glucose (Misc Panel) 88 01/24/19 17:23: Bedside Glucose (Misc Panel) 119H 01/24/19 21:17: Bedside Glucose (Misc Panel) 101 01/25/19 05:40: Bedside Glucose (Misc Panel) 92 Current Medications Current Medications Medications (Trade) Dose Ordered Sig/Kailey Route PRN Reason Start Time Stop Time Status Last Admin Dose Admin Acetaminophen (Tylenol Tab) 650 mg Q6HP PRN PO HEADACHE or DISCOMFORT 01/03/19 05:00 01/03/19 19:01 Al Hydrox/Mg Hydrox/Simethicone (Mylanta) 30 ml Q4HP PRN PO HEARTBURN/INDIGESTION 01/03/19 05:00 Amlodipine Besylate (Norvasc) 10 mg DAILY PO 01/03/19 09:00 01/25/19 08:37 Atorvastatin Calcium (Lipitor) 20 mg QHS PO 01/03/19 21:00 01/24/19 21:20 Benztropine Mesylate (Cogentin) 0.5 mg BIDP PRN PO EPS 01/03/19 22:30 01/08/19 20:41 Cetylpyridinium Chloride (Cepacol) 1 pranav Q4HP PRN PO SORE THROAT 01/04/19 10:00 01/06/19 03:53 Dextrose (Dextrose 50%) 25 ml ASDIRECTED PRN IV SEE LABEL COMMENTS 01/03/19 05:00 Gabapentin (Neurontin) 600 mg BID PO 01/03/19 09:00 01/25/19 08:36 Glucagon (Glucagon) 1 mg ASDIRECTED PRN SC SEE LABEL COMMENTS 01/03/19 05:00 Glucose (Glucose) 16 GM ASDIRECTED PRN PO SEE LABEL COMMENTS 01/03/19 05:00 Home Med (Med Rec Complete!) ASDIRECTED XX 01/03/19 05:45 01/03/19 06:07 DC Insulin Human Lispro (HumaLOG INSULIN) See Protocol Table AC SC 01/03/19 07:30 01/24/19 17:26 Insulin Human Lispro (HumaLOG INSULIN) See Protocol Table QHS SC 01/03/19 21:00 Levothyroxine Sodium (Synthroid) 100 mcg DAILY@0600 PO 01/04/19 06:00 01/25/19 05:32 Lisinopril (Prinivil) 20 mg DAILY PO 01/03/19 09:00 01/05/19 08:45 DC 01/05/19 08:12 Lisinopril (Prinivil) 40 mg DAILY PO 01/06/19 09:00 01/25/19 08:37 Lorazepam (Ativan) 2 mg Q4HP PRN IM AGITATION 01/03/19 09:45 01/04/19 10:01 DC Lorazepam (Ativan) 2 mg Q4HP PRN PO ANXIETY/AGITATION 01/04/19 10:00 01/04/19 10:09 Magnesium Hydroxide (Milk Of Magnesia) 30 ml DAILYPRN PRN PO CONSTIPATION 01/03/19 05:00 Metformin HCl (Glucophage) 1,000 mg BID@08,18 PO 01/04/19 08:00 01/25/19 08:36 Miscellaneous (Unresolved Clarification Entry) SEE LABEL COMMENTS DAILY XX 01/10/19 09:00 01/10/19 10:48 DC Miscellaneous (Unresolved Clarification Entry) SEE LABEL COMMENTS DAILY XX 01/16/19 09:00 01/23/19 12:34 DC Nicotine (Nicoderm Cq 21mg) 1 patch DAILY TD 01/03/19 09:00 Olanzapine (ZyPREXA ZYDIS) 5 mg Q4HP PRN PO AGITATION 01/03/19 05:00 Olanzapine (ZyPREXA) 5 mg BID@0900,1200 PO 01/12/19 12:00 01/16/19 10:30 DC 01/16/19 09:00 Olanzapine (ZyPREXA) 10 mg BID@0900,1200 PO 01/04/19 12:00 01/12/19 10:12 DC 01/12/19 09:44 Olanzapine (ZyPREXA) 10 mg DAILY PO 01/04/19 09:00 01/04/19 11:05 DC 01/04/19 08:06 Olanzapine (ZyPREXA) 15 mg QHS PO 01/18/19 21:00 01/24/19 21:20 Olanzapine (ZyPREXA) 20 mg QHS PO 01/03/19 21:00 01/18/19 09:06 DC 01/17/19 21:50 Oxcarbazepine (Trileptal) 600 mg BID PO 01/03/19 21:00 01/25/19 08:36 Quetiapine Fumarate (SEROquel) 200 mg QHS PO 01/03/19 21:00 01/24/19 21:20 Trazodone HCl (Desyrel) 50 mg QHSP PRN PO INSOMNIA 01/03/19 05:00 Allergies Coded Allergies: Penicillins (Verified Allergy, Intermediate, rash, 01/02/19) divalproex sodium (Verified Allergy, Unknown, 01/02/19) CLAIR STEIN DO Jan 25, 2019 9:46 am
[2019-01-25 17:49] VITALS: BP 120/67
[2019-01-25] MEDS: QUEtiapine FUMARATE 200 MG TAB PO SCH (21:15)
[2019-01-25] MEDS: OLANZapine 5 MG TAB PO SCH (21:16)
[2019-01-25] MEDS: ATORVASTATIN 20 MG TAB PO SCH (21:16)
[2019-01-26] MEDS: LEVOTHYROXINE 100MCG TABLET (0.1MG) PO SCH (06:00)
[2019-01-26] MEDS: HumaLOG INSULIN (NovoLOG) PER UNIT SC SCH (06:33)
[2019-01-26 06:39] VITALS: BP 117/69
[2019-01-26] MEDS: NICOTINE 21MG/24HR 1 EA TRANSDERMAL TD SCH (08:04)
--- NOTE | 2019-01-26 08:53 | MHDSPDOC ---
[facility] Discharge Summary Discharge Summary DATE OF ADMISSION: Jan 03, 2019 at 4:51 am DATE OF DISCHARGE: Jan 26, 2019 DISCHARGE DIAGNOSES: 1.Bipolar d/o mre mixed w/o psychosis REASON FOR ADMISSION: Patient is a 48 -year-old , male, with psych history of bipolar 1 disorder, multiple admission [facility] and elsewhere ([facility]) in the past, recently d/c [facility] 12/28/18 for winsome with psychosis who who was transferred from [facility] after sent there by his outpt provider for bizarre behavior, winsome, disorganization, hyperverbal speech, endorsing non command AH of "my father" in the ED. Pt appeared manic and disorganized with nonsensical speech per [facility] when evaluated there. Pt is a poor historian so history gathered from previous records. Pt seen this am and laying in bed resting but arousable and asked why he was back and started mumbling rapidly not fully intelligibly some thing about his medications and me being his doctor here. Per d/c land planner insurance was not approving pt zyprexa doses his was discharged on and therefore only got zyprexa 10mg qhs. Also d/c land planner report that when adult protective agency checked on pt while he was at home after last d/c, pt not taking his medications and that they were scattered all over his apt. Adult protection agency and assistant case manager recommending long acting injectable to aid with med compliance. Pt has been on invega sustenna in the past and tolerated well with benefit so will give him one time oral dose invega then administer invega sustenna 234mg im x1 today with 156mg im 3 days later provided he tolerates oral invega. Pt is agreeable. Denies SI/HI. Appears to be in mixed manic state. CONSULTANTS INVOLVED: none TEST RESULTS: triletal level 13 therapeutic TREATMENT AND PROGRESS ON THE UNIT : Pt was admitted to [facility], seen for psychiatric assessment and restarted on his outpatient medications seroquel 200mg qhs, trileptal 600mg bid, cogentin 1mg daily, zyprexa 10mg qam,qnoon, and 20mg qhs. Pt was given invega sustenna 234mg im then 156mg im for medication compliance and bipolar d/o that he tolerated well and was beneficial for his symptoms of winsome. He was provided trazodone 50mg qhs prn insomnia. After invega sustenna given pt started sleeping thru out the day with avolition, anhedonia, depression and his zyprexa during the day was stopped and his nightly zyprexa was decreased to 15mg which allowed his mood and motivation to improve to euthymic and full range. His trileptal level prior d/c was 13 which was therapeutic. Pt found his medications beneficial and tolerated them well. He was given another dose of invega sustenna 234mg that was approximately due immediately after d/c that he tolerated well. He attended groups daily during her stay. His symptoms improved greatly with treatment. On day of discharge he denied depression, winsome, anxiety, insomnia, SI/HI, hallucinations, delusions. He was discharged back to [facility] with follow-up with Dr. Marina, at the [facility].. He felt safe for discharge. DISCHARGE ASSESSMENT: Pt seen today and states he's looking forward to going h ome. States he's feeling much more like himself, not depressed or fatigued thru out the day. Pt does sound and appear to have greatly improved depression and at his baseline status. States he went to all the groups this week and he's finding it helpful for his mood and motivation. Pt states his mood is "good" and he feels like himself, not depressed or manic, denies fatigue, and does not appear flat. He states he's tolerating his medications and feels they're beneficial for him. He denies manic symptoms and doesn't appear to be manic or psychotic. He denies SI. His speech is reg rate/volume and spontaneous. His thoughts remain linear and logical. He does not appear psychotic or grandiose. He denies depression, winsome, anxiety, insomnia, SI/HI, AVH. Pt feels safe to be discharged home. MENTAL STATUS EXAMINATION ON DISCHARGE: General: clean, dressed in hospital clothes Speech: reg rate/volume, spontaneous Thought processes: linear and logical and coherent MSK: average movement Thought content: no longer grandiose or delusional Abstract reasoning, and computation: [place] Description of associations: more appropriate Description of abnormal or psychotic thoughts: Denies any suicidal or homicidal thoughts and AVH Judgment: good Insight: good Orientation: Alert and orientated 3 Cognition: Grossly normal Recent and remote memory: fair Attention span and concentration: good Fund of knowledge: below average Mood: "good" Affect: euthymic and full, congruent MEDICATIONS ON DISCHARGE: trileptal 600mg bid zyprexa 15mg qhs seroquel 200mg qhs trazodone 50mg qhs prn insomnia cogentin 1mg daily invega sustenna 234mg im qmonthly PLAN/FOLLOWUP ARRANGEMENTS: D/c home with follow-up at [facility] The amount of time spent in the coordination of care for this patient was approximately 30 minutes. Vital Signs/I&Os Vital Signs Date Time Temp Pulse Resp B/P (MAP) Pulse Ox O2 Delivery O2 Flow Rate FiO2 01/26/19 06:39 97.3 59 14 117/69 (85) Laboratory Data Labs 24H Laboratory Tests 2 01/25/19 11:31: Bedside Glucose (Misc Panel) 114H 01/25/19 16:56: Bedside Glucose (Misc Panel) 117H 01/25/19 21:15: Bedside Glucose (Misc Panel) 112H 01/26/19 06:04: Bedside Glucose (Misc Panel) 75 Medications Scheduled Amlodipine Besylate (Amlodipine Besylate) 10 Mg Tablet, 10 MG PO DAILY, (Reported) Atorvastatin Calcium (Atorvastatin Calcium) 20 Mg Tab, 20 MG PO QHS, (Reported) Benztropine Mesylate (Benztropine Mesylate) 1 Mg Tablet, 1 MG PO DAILY for eps, #10 Docusate Sodium (Docusate Sodium) 100 Mg Capsule, 100 MG PO BID, (Reported) Gabapentin (Gabapentin) 600 Mg Tab, 600 MG PO BID, (Reported) Insulin Aspart (Novolog Flexpen) 100 Unit/1 Ml Insuln.pen, 1 UNITS SC TID, (Reported) PER SLIDING SCALE Levothyroxine Sodium (Levothyroxine Sodium) 100 Mcg Tab, 100 MCG PO DAILY, (Reported) Lisinopril (Lisinopril) 20 Mg Tablet, 20 MG PO DAILY, (Reported) Olanzapine (Zyprexa) 15 Mg Tablet, 15 MG PO QPM for schizoaffective d/o, #10 Oxcarbazepine (Oxcarbazepine) 300 Mg Tablet, 600 MG PO BID for bipolar d/o, #40 Paliperidone Palmitate (Invega Sustenna) 234 Mg/1.5 Ml Syringe, 234 MG IM QMONTH for schizoaffective d/o, #1 Quetiapine Fumarate (Quetiapine Fumarate) 200 Mg Tablet, 200 MG PO QHS for bipolar d/o, #10 Scheduled PRN Trazodone HCl (Trazodone HCl) 50 Mg Tablet, 50 MG PO QHS PRN for INSOMNIA, #10 Miscellaneous Medications [Patient Comments] , (Reported) PATIENT AWARE OF MEDICATIONS BUT NOT SURE WHEN HE LAST TOOK THEM. WILL VERIFY MEDICATION WITH PHARMACY WHEN IT OPENS Allergies Coded Allergies: Penicillins (Verified Allergy, Intermediate, rash, 01/02/19) divalproex sodium (Verified Allergy, Unknown, 01/02/19) CLAIR STEIN DO Jan 26, 2019 8:53 am
[2019-01-26] MEDS ORDERED: TRAZ-186 PO (09:00)
[2019-01-26] MEDS ORDERED: ZYPR15TA PO ×2 (09:00→10:51)
[2019-01-26] MEDS ORDERED: OXCA300T14 PO ×2 (09:00→10:51)
[2019-01-26] MEDS ORDERED: INVE234I IM ×2 (09:00→10:51)
[2019-01-26] MEDS ORDERED: QUET200T2 PO ×2 (09:00→10:51)
[2019-01-26] MEDS ORDERED: BENZ-52 PO ×2 (09:00→10:51)
[2019-01-26] MEDS: metFORMIN (GLUCOPHAGE) 1000 MG TABLET PO SCH (09:04)
[2019-01-26] MEDS: OXcarbazepine 300 MG TAB PO SCH (09:05)
[2019-01-26] MEDS: GABAPENTIN 300 MG CAP PO SCH (09:05)
[2019-01-26 09:35] VITALS: BP 104/69
[2019-01-26] MEDS: amLODIPine 10 MG TAB PO SCH (09:35)
[2019-01-26] MEDS: lisinopriL 20 MG TAB PO SCH (09:36)
[2019-01-26] MEDS ORDERED: TRAZ-252 PO (10:51)
[2019-01-26] MEDS ORDERED: PALIPERIDONE PALMITATE 234MG/1.5ML INJ (INVEGA)(J2426)(FREE PSY INPT ONLY) IM ONE (12:00)
== END 2019-01-26 12:45 | disposition home or self-care (01) | DRG 885 ==
LOC: M ED 19:34 → M ED INP 01-03 04:51 → M PSY 01-03 05:47
PROVIDERS: ADMIT Psychiatry & Neurology Psychiatry; ATTEND Psychiatry & Neurology Psychiatry
DX: F31.63 Bipolar disorder, current episode mixed, severe, without psychotic features (principal); Z91.5 Personal history of self-harm; I25.10 Atherosclerotic heart disease of native coronary artery without angina pectoris; I10 Essential (primary) hypertension; E11.65 Type 2 diabetes mellitus with hyperglycemia; Z79.84 Long term (current) use of oral hypoglycemic drugs; Z88.0 Allergy status to penicillin; Z88.8 Allergy status to other drugs, medicaments and biological substances; Z81.8 Family history of other mental and behavioral disorders; Z79.899 Other long term (current) drug therapy; F25.9 Schizoaffective disorder, unspecified; E03.9 Hypothyroidism, unspecified; R00.0 Tachycardia, unspecified

== ENCOUNTER 2019-01-30 16:20 | Inpatient (IN) | payer MEDICARE, MEDICAID ==
[~2019-01-30] VITALS: Ht 177.8 cm; Wt 111.0 kg
[~2019-01-30 16:20] MED LIST changes: +FLUP10TA PO; -FLUP10TA11 PO; +LORA0.5T11 PO; -LORA0.5T5 PO; +LORA1TAB12 PO; -LORA1TAB4 PO; +TRAZ-186 PO; +ZYPR15TA PO
[2019-01-30 17:31] LABS: HEMOGLOBIN 14.7 g/dl (13.5-17.5); MEAN CORPUSCULAR HEMOGLOBIN 28.6 pg (27.0-33.0); MEAN CORPUSCULAR HGB CONC 34.2 g/dl (32.0-36.5); MEAN CORPUSCULAR VOLUME 83.7 fl (80.0-96.0); PLATELET COUNT, AUTOMATED 257 10^3/uL (150-450); RED BLOOD COUNT 5.14 10^6/uL (4.30-6.10); WHITE BLOOD COUNT 11.1 10^3/uL (4.0-10.0)
[2019-01-30 17:53] LABS: ACETAMINOPHEN LEVEL < 2.0 UG/ML (10.0-30.0); ALBUMIN 4.5 GM/DL (3.2-5.2); ALT/SGPT 142 U/L (12-78); BILIRUBIN,DIRECT 0.1 MG/DL (0.0-0.2); BILIRUBIN,TOTAL 0.4 MG/DL (0.2-1.0); BLOOD UREA NITROGEN 9 MG/DL (7-18); CARBON DIOXIDE LEVEL 26 MEQ/L (21-32); CHLORIDE LEVEL 105 MEQ/L (98-107); CREATININE FOR GFR 0.71 MG/DL (0.70-1.30); ETHYL ALCOHOL (ETHANOL) < 0.003 % (0.000-0.010); GLOMERULAR FILTRATION RATE > 60.0 (>56); GLUCOSE, FASTING 121 MG/DL (70-100); POTASSIUM SERUM 3.6 MEQ/L (3.5-5.1); SALICYLATE LEVEL < 1.7 MG/DL (5.0-30.0); SODIUM LEVEL 139 MEQ/L (136-145); TOTAL PROTEIN 7.8 GM/DL (6.4-8.2)
[2019-01-30] MEDS ORDERED: QUET200T2 PO (18:51)
[2019-01-30] MEDS ORDERED: BENZ-52 PO (18:51)
[2019-01-30] MEDS ORDERED: INVE234I IM (18:51)
[2019-01-30] MEDS ORDERED: OXCA300T14 PO (18:51)
[2019-01-30] MEDS ORDERED: OLAN15TA PO (18:51)
[2019-01-30] MEDS ORDERED: TRAZ-252 PO (18:51)
[2019-01-30 19:38] LABS: AMPHETAMINES LEVEL URINE NEGATIVE (NEGATIVE); BARBITURATES URINE NEGATIVE (NEGATIVE); BENZODIAZEPINES URINE NEGATIVE (NEGATIVE); CANNABINOIDS URINE NEGATIVE (NEGATIVE); COCAINE METABOLITE URINE NEGATIVE (NEGATIVE); METHADONE URINE NEGATIVE (NEGATIVE); OPIATES URINE NEGATIVE (NEGATIVE); PHENCYCLIDINE URINE NEGATIVE (NEGATIVE)
[2019-01-30] MEDS ORDERED: QUEtiapine FUMARATE 200 MG TAB PO ONE (21:00)
[2019-01-30] MEDS ORDERED: OLANZapine 5 MG TAB PO ONE (21:00)
[2019-01-31] MEDS ORDERED: HALOPERIDOL 5 MG/ML VIAL (J1630) As Ordered ONE (00:42)
[2019-01-31] MEDS ORDERED: diphenhydrAMINE INJ 50MG/ML VIAL (J1200) IM ONE (00:45)
[2019-01-31] MEDS ORDERED: HALOPERIDOL 5 MG/ML VIAL (J1630) IM ONE (00:45)
[2019-01-31 05:51] LABS: APPEARANCE, URINE CLEAR (CLEAR); BACTERIA, URINE AUTO NEGATIVE (NEGATIVE); BILIRUBIN, URINE AUTO NEGATIVE (NEGATIVE); BLOOD, URINE BLOOD NEGATIVE (NEGATIVE); COLOR, URINE YELLOW (YELLOW); GLUCOSE, URINE (UA) AUTO NEGATIVE (NEGATIVE); KETONE, URINE AUTO NEGATIVE (NEGATIVE); LEUKOCYTE ESTERASE, URINE AUTO NEGATIVE (NEGATIVE); NITRITE, URINE AUTO NEGATIVE (NEGATIVE); PROTEIN, URINE AUTO NEGATIVE (NEGATIVE); RBC, URINE AUTO 0 /HPF (0-3); SQUAMOUS EPITHELIAL CELL UR AU 0 /HPF (0-6); UROBILINOGEN, URINE AUTO 0.2 mg/dL (0.0-2.0); WBC, URINE AUTO 0 /HPF (0-3)
[2019-01-31] MEDS ORDERED: LORazepam 2 MG TAB PO STA (07:19)
--- NOTE | 2019-01-31 07:48 | ECGEPIP ---
[facility] - ED Test Date: 2019-01-30 Pat Name: RADHA MAY Department: Room: - Gender: Male Physician Relations Representative: TRENA : 1970 Requested By: ANTONIO Brennan Order Number: [id number] Reading MD: Oswaldo Trinidad Measurements Intervals [place] Rate: 88 P: 61 WV: 148 QRS: 51 QRSD: 110 T: 49 QT: 372 QTc: 452 Interpretive Statements SINUS RHYTHM LEFT VENTRICULAR HYPERTROPHY Electronically Signed on 01-31-2019 7:48:27 EDT by Oswaldo Trinidad
[2019-01-31] MEDS ORDERED: BENZTROPINE 1 MG TAB PO ONE (08:45)
[2019-01-31] MEDS ORDERED: DOCUSATE SODIUM 100 MG CAP PO ONE (08:45)
[2019-01-31] MEDS ORDERED: GABAPENTIN 300 MG CAP PO ONE (08:45)
[2019-01-31] MEDS ORDERED: OXcarbazepine 300 MG TAB PO ONE (08:45)
[2019-01-31] MEDS ORDERED: amLODIPine 10 MG TAB PO ONE (08:45)
[2019-01-31] MEDS ORDERED: HumaLOG INSULIN (NovoLOG) PER UNIT SC STA (11:22)
[2019-01-31] MEDS ORDERED: GLUCOSE 4 GM CHEW TABLET PO PRN (15:00)
[2019-01-31] MEDS ORDERED: DEXTROSE 50% 50 ML SYRINGE IV PRN (15:00)
[2019-01-31] MEDS ORDERED: ACETAMINOPHEN TAB 650MG DOSE (2X325MG) PO ONE (15:00)
[2019-01-31] MEDS ORDERED: MAALOX 30 ML SUSP *UDC PO PRN (15:00)
[2019-01-31] MEDS ORDERED: GLUCAGON FOR INJ 1 MG VIAL (J1610) SC PRN (15:00)
[2019-01-31] MEDS ORDERED: LORazepam 1 MG TAB PO PRN (15:00)
[2019-01-31] MEDS ORDERED: OLANZapine 10 MG TAB PO ONE (16:00)
[2019-01-31 16:19] VITALS: BP 130/86
[2019-01-31] MEDS: HumaLOG INSULIN (NovoLOG) PER UNIT SC SCH ×3 (17:08→21:00)
[2019-01-31] MEDS: LORazepam 2 MG TAB PO PRN (17:19)
[2019-01-31] MEDS: QUEtiapine FUMARATE 200 MG TAB PO SCH (21:55)
[2019-01-31] MEDS: OXcarbazepine 300 MG TAB PO SCH (21:56)
[2019-01-31] MEDS: ATORVASTATIN 20 MG TAB PO SCH (21:56)
[2019-01-31] MEDS: DOCUSATE SODIUM 100 MG CAP PO SCH (21:56)
[2019-01-31] MEDS: OLANZapine 10 MG TAB PO SCH (21:56)
[2019-02-01] MEDS: LORazepam 2 MG TAB PO PRN ×2 (02:46→20:43)
[2019-02-01] MEDS: LEVOTHYROXINE 100MCG TABLET (0.1MG) PO SCH (06:02)
[2019-02-01 06:22] VITALS: BP 124/74
[2019-02-01] MEDS: HumaLOG INSULIN (NovoLOG) PER UNIT SC SCH ×4 (06:42→20:08)
[2019-02-01] MEDS: LISINOPRIL 20 MG TAB PO SCH (08:04)
[2019-02-01] MEDS: amLODIPine 10 MG TAB PO SCH (08:04)
[2019-02-01] MEDS: GABAPENTIN 300 MG CAP PO SCH ×2 (08:05→20:44)
[2019-02-01] MEDS: BENZTROPINE 1 MG TAB PO SCH (08:05)
[2019-02-01] MEDS: DOCUSATE SODIUM 100 MG CAP PO SCH ×2 (08:05→20:43)
[2019-02-01] MEDS: OLANZapine 10 MG TAB PO SCH ×3 (08:06→20:44)
[2019-02-01] MEDS: OXcarbazepine 300 MG TAB PO SCH ×2 (08:13→20:43)
--- NOTE | 2019-02-01 10:25 | MHHPEPDOC ---
General Date Of Admission: Jan 31, 2019 Legal Status: 9.39 Chief Complaint ". History of Present Illness HISTORY OF THE PRESENT ILLNESS: Patient is a 48 -year-old , male, with psych history of bipolar 1 disorder, multiple admission [facility] and elsewhere ([facility] in the past, recently d/c [facility] 01/26/19 for winsome with psychosis who who was to [facility] ED by [facility] representatives for winsome, disorganization, agitation,hyperverbal speech, tangential thoughts, restlessness due to med noncompliance since d/c from [facility] last week due to him failing to pick them up. Pt appeared manic and disorganized with nonsensical and rambling speech per [facility] ED when evaluated there. Pt is a poor historian so history gathered from previous records. Psychiatric Review of Systems Winsome (4 or more days of): irritable/elevated mood, expansive mood, grandiosity, decreased need for sleep, talkativity, pressured, flight of ideas, distractibility, goal-directed activities Psychosis: denies Anxiety: situational anxiety, stressor related anxiety Anxiety/ 6 months or more of: restlessness, keyed up, difficulty concentrating, sleep disturbance Past Psychiatric History Previous Psychiatric Diagnosis: bipolar disorder Previous Psychiatric Admissions: multiple psychiatric admission to [facility] (last 12/25/18 for winsome; 3rd admit over 2-3 months), [facility], [place], and [facility]. the last time he was at [facility] was in February last year. He was at [facility] at [place] time Suicide Attempts: once at 23yrs old Psychiatric Follow-up: Dr. Kong, he saw him for a long time, he had a heart attack and a therapist in [facility]. July (psychiatrist, he saw her to months ago and talked to her on the phone about two weeks ago because he didn't get a ride, he called her.) Psychiatric medications: Prozac, Paxil, Zoloft, Tegretol, Zyprexa, risperidone, Risperdal Consta, Abilify, Invega Sustenna, Depakote. he has taken Doxepine. At [facility] he received the injectable form of Abilify and he thinks that he became manic after he received the injection. Past Medical History Medical Problems DMII, HTN, CAD Head Injury: Yes (he had a couple, when he was in school. Once he fell on the snow and he didn't go to school for a couple of days. He was hospitalized for a couple of days, he felt nauseous, he was unconscious.) Seizures: No Hospitalizations: No Surgeries: Yes ( tonsillectomy) Family Medical/Psychiatric HX Medical Problems noncontributory Psychiatric Disorders: Yes (Maternal mother and maternal grandmother have bipolar disorder His mother takes [place]. Maternal aunt committed suicide when the patient was 5-years old. His uncle used to do drugs and he went to see the place where she committed suicide and he said that it seemed as if someone had helped her. This uncle already . There is no alcohol or drug abuse in the family) Addiction: No Suicide Attemps/Completions: No Addiction History denies, other (he has not had a drink in three years) Social History Childhood: born and raised [place], 2 parent home, 4 sibling, twin sister. It was good, his parents were together. He got along with his siblings, they are alive and he has a good relationship with them. Abuse/Trauma: Denies, bullied in high school. When he was [age], did some "inappropriate things to me. I should have fought back and I didn't" Current Living Situation: [facility] residential Education: high school grad, 2 yrs college for biology (had to leave b/c of winsome). he had a mental breakdown when he was in second year, he was hospitalized at [facility] at that time. 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 He has not worked for the last three weeks. Social Support: mother Legal: denies Marital: single, no kids. He doesn't have a girlfriend now, he was in previous relationships before Mental Status Examination General Appearance: well groomed, appears stated age, hospital scubs/clothing Build: overweight Demeanor: preoccupied, very figety, other (manic, irritable, demanding) Eye Contact: fair Activity: agitated, anxious Behavior: cooperative, agitated, hyperactive, restless Speech: rapid, pressured, normal volume Mood: anxious, euphoric, irritable, elevated, hypomanic Mood "I'm cold... I need a long sleeve shirt!" Affect: inappropriate, labile, anxious, disorganized, other (manic) Thought Process: concrete, tangential, loose, associative, flight of ideas, racing Thought Content (Delusions): grandiose, denies SI, HI, AVH Thought Content (Other): preoccupied, obsessional, ideas of reference Thought Content (Aggressive): none reported Perception (Hallucinations): none reported Perception (Other): none reported Cognition (Impairment of): attention/concentration, ability to abstract Cognition(Intelligence Est.): borderline Oriented: Awake, Alert, Oriented times three Insight: poor Judgment: Poor Psychosis: Associations, Abstract Thinking, Psychotic Perceptions Diagnoses Bipolar disorder, mixed episode A-FIB/CHADSVASC A-FIB History Current/History of A-Fib/PAF?: No Assessment Pt seen and very manic, hyperverbal, somewhat agitated, restless, loud, demanding this am arguing with unit techs about needing a long sleeve shirt b/c he was cold. States his meds are at [facility] now and stated something about a mix up with him getting that right after d/c. Pt very tangential, with pressured/rambling speech, goal-directed thoughts, very disorganized talking about having a "hot date with a girl," walking around the unit with his pants pulled up "like Daniel Perkins" b/c it's funny, eating 4 breakfast this am so he gave me his yogurt and stated "Maybe there will be a yogurt for you tomorrow," among other rambling and disorganized thoughts. Stated "you'd be wound up to if you hadn't slept for 3 days." Very hard to redirect toward ending interview as keeps rambling on. Will restart previous meds last d/c on plus zyprexa 10mg tid for winsome and one time order thorazine 100mg and ativan 2mg po this am to get pt to sleep and improve winsome. Initial Treatment Plan 1. Patient was admitted on a 9.39 status. 2. Complete history was obtained. 3. With patients permission, family will be contacted and database will be expanded. 4. Patients medication regimen will be reviewed and changed accordingly. 5. Patient will be provided with protected environment. 6. Patient will be treated with individual, group, and milieu therapies. 7. Patient will receive supportive psych-education. 8. Discharge planning will commence immediately. 9. Outpatient follow-up treatment will be strongly recommended. 10. The initial treatment plan will focus initially on: * Depression. * Risk for suicide. 11. restart trileptal 600mg bid, zyprexa 15mg qhs. zyprexa 10mg tid, seroquel 200mg qhs, trazodone 50mg qhs prn insomnia. Thorazine 100mg and ativan 2mg po times one for winsome now. ESTIMATED LENGTH OF STAY: 7-10 DAYS. TIME SPENT COUNSELING AND COORDINATING INITIAL CARE: 60 minutes. Vital Signs Vital Signs Date Time Temp Pulse Resp B/P (MAP) Pulse Ox O2 Delivery O2 Flow Rate FiO2 02/01/19 08:04 109 137/86 02/01/19 06:22 97.3 16 01/31/19 16:19 98 01/31/19 16:00 Room Air Laboratory Data 24H Labs Laboratory Tests 2 01/31/19 11:11: Bedside Glucose (Misc Panel) 241H 01/31/19 17:12: Bedside Glucose (Misc Panel) 124H 01/31/19 22:01: Bedside Glucose (Misc Panel) 142H 02/01/19 06:01: Bedside Glucose (Misc Panel) 98 Medications Scheduled Amlodipine Besylate (Amlodipine Besylate) 10 Mg Tablet, 10 MG PO DAILY, (Reported) Atorvastatin Calcium (Atorvastatin Calcium) 20 Mg Tab, 20 MG PO QHS, (Reported) Benztropine Mesylate (Benztropine Mesylate) 1 Mg Tablet, 1 MG PO DAILY, (Reported) Docusate Sodium (Docusate Sodium) 100 Mg Capsule, 100 MG PO BID, (Reported) Gabapentin (Gabapentin) 600 Mg Tab, 600 MG PO BID, (Reported) Insulin Aspart (Novolog Flexpen) 100 Unit/1 Ml Insuln.pen, 1 UNITS SC TID, (Reported) PER SLIDING SCALE Levothyroxine Sodium (Levothyroxine Sodium) 100 Mcg Tab, 100 MCG PO DAILY, (Reported) Lisinopril (Lisinopril) 20 Mg Tablet, 20 MG PO DAILY, (Reported) Olanzapine (Olanzapine) 15 Mg Tablet, 15 MG PO QPM, (Reported) Oxcarbazepine (Oxcarbazepine) 300 Mg Tablet, 600 MG PO BID, (Reported) Paliperidone Palmitate (Invega Sustenna) 234 Mg/1.5 Ml Syringe, 234 MG IM QMONTH, (Reported) Quetiapine Fumarate (Quetiapine Fumarate) 200 Mg Tablet, 200 MG PO QHS, (Reported) Scheduled PRN Trazodone HCl (Trazodone HCl) 50 Mg Tablet, 50 MG PO QHS PRN for SLEEP, (Reported) Miscellaneous Medications [Patient Comments] , (Reported) NOT ABLE TO OBTAIN LAst TAKEN FROM PT. PT WAS DISCHARGED FROM HOSPITAL 01/26 AND SAYS THAT HE WASN'T ABLE TO PROGRAM DIRECTOR AIR TALENT SOME MEDICATIONS. Allergies Coded Allergies: Penicillins (Verified Allergy, Intermediate, rash, 01/02/19) divalproex sodium (Verified Allergy, Unknown, 01/02/19) CLAIR STEIN DO Feb 01, 2019 9:39 am
[2019-02-01] MEDS ORDERED: LORazepam 2 MG TAB PO ONE (10:30)
[2019-02-01] MEDS ORDERED: chlorproMAZINE 25 MG TAB (Q0161) PO ONE (10:30)
--- NOTE | 2019-02-01 11:25 | HPEPDOC ---
[facility] Medical History & Physical Date of Admission Feb 01, 2019 Date of Service: Feb 01, 2019 History and Physical CHIEF COMPLAINT: "I feel hyper" HISTORY OF PRESENT ILLNESS: Patient is 48M with PMH bipolar, DM, HTN, CAD, Hypothyroidism admitted for what appeared to be manic episode. Patient stated that he has not taken medications for the past several days and that he has been hyper. He does not answer most questions appropriately and unable to perform a complete review of systems. Of note, he has had multiple recent admissions at [facility] and was recently discharged. Most history obtained from previous documentation. PAST MEDICAL HISTORY: Refer to [facility] PAST SURGICAL HISTORY: tonsillectomy SOCIAL HISTORY: Denies tobacco, alcohol or illicit drug use per documentation. FAMILY HISTORY: Bipolar in mother and grandmother ALLERGIES: Please see below. REVIEW OF SYSTEMS: 10 point review of system negative except as stated in [facility] HOME MEDICATIONS: Please see below. PHYSICAL EXAMINATION: General: No acute distress, Alert, disorganized thought and communication Eyes: Normal sclera, EOMI, MANUELA HENT: Atraumatic Cardiovascular: Normal rate Pulmonary: Clear to auscultation b/l, no wheezing GI: Soft, nontender, nondistended Skin: Warm and dry Neuro: CN grossly intact. No focal deficits. LABORATORY DATA: See below. ASSESSMENT AND PLAN: 1. Bipolar disorder - Resume meds and c/w management per Psych. - Thought still very disorganized but patient reportedly feels better after re- initiation. 2. DM - Resumed home meds. Noted to be on metformin 1000mg BID. - ISS in place as well. Appear to have wide fluctuations. 3. HTN - Resume home meds. 4. Hypothyroidism - c/w synthroid 5. CAD - No chest pain. c/w home meds. Mild tachycardia in AM and mild leukocytosis WBC 11. Will monitor and repeat labs in AM, will reassess tomorrow. No clear evidence of any infectious process. Vital Signs Vital Signs Date Time Temp Pulse Resp B/P (MAP) Pulse Ox O2 Delivery O2 Flow Rate FiO2 02/01/19 08:04 109 137/86 02/01/19 06:22 97.3 16 01/31/19 16:19 98 01/31/19 16:00 Room Air Laboratory Data Labs 24H Laboratory Tests 2 01/31/19 17:12: Bedside Glucose (Misc Panel) 124H 01/31/19 22:01: Bedside Glucose (Misc Panel) 142H 02/01/19 06:01: Bedside Glucose (Misc Panel) 98 Microbiology Microbiology 01/31/19 Urine Culture - Final, Complete Home Medications Scheduled Amlodipine Besylate (Amlodipine Besylate) 10 Mg Tablet, 10 MG PO DAILY Atorvastatin Calcium (Atorvastatin Calcium) 20 Mg Tab, 20 MG PO QHS Benztropine Mesylate (Benztropine Mesylate) 1 Mg Tablet, 1 MG PO DAILY Docusate Sodium (Docusate Sodium) 100 Mg Capsule, 100 MG PO BID Gabapentin (Gabapentin) 600 Mg Tab, 600 MG PO BID Insulin Aspart (Novolog Flexpen) 100 Unit/1 Ml Insuln.pen, 1 UNITS SC TID PER SLIDING SCALE Levothyroxine Sodium (Levothyroxine Sodium) 100 Mcg Tab, 100 MCG PO DAILY Lisinopril (Lisinopril) 20 Mg Tablet, 20 MG PO DAILY Olanzapine (Olanzapine) 15 Mg Tablet, 15 MG PO QPM Oxcarbazepine (Oxcarbazepine) 300 Mg Tablet, 600 MG PO BID Paliperidone Palmitate (Invega Sustenna) 234 Mg/1.5 Ml Syringe, 234 MG IM QMONTH Quetiapine Fumarate (Quetiapine Fumarate) 200 Mg Tablet, 200 MG PO QHS Scheduled PRN Trazodone HCl (Trazodone HCl) 50 Mg Tablet, 50 MG PO QHS PRN for SLEEP Miscellaneous Medications [Patient Comments] NOT ABLE TO OBTAIN LAst TAKEN FROM PT. 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 Allergies Coded Allergies: Penicillins (Verified Allergy, Intermediate, rash, 01/02/19) divalproex sodium (Verified Allergy, Unknown, 01/02/19) A-FIB/CHADSVASC A-FIB History Current/History of A-Fib/PAF?: No CHALO GARCIA MD Feb 01, 2019 11:25
[2019-02-01 16:59] VITALS: BP 123/77
[2019-02-01] MEDS: metFORMIN (GLUCOPHAGE) 1000 MG TABLET PO SCH (17:03)
[2019-02-01] MEDS: MOM 30ML SUSPENSION UDC PO PRN (20:43)
[2019-02-01] MEDS: CEPACOL LOZENGE PO PRN (20:43)
[2019-02-01] MEDS: OLANZapine 5 MG TAB PO SCH (20:43)
[2019-02-01] MEDS: ATORVASTATIN 20 MG TAB PO SCH (20:44)
[2019-02-01] MEDS: QUEtiapine FUMARATE 200 MG TAB PO SCH (20:44)
[2019-02-01] MEDS: traZODone 50 MG TAB PO PRN (21:05)
[2019-02-02] MEDS: LEVOTHYROXINE 100MCG TABLET (0.1MG) PO SCH (05:59)
[2019-02-02 06:15] VITALS: BP 132/84
[2019-02-02] MEDS: LORazepam 2 MG TAB PO PRN ×3 (06:19→17:59)
[2019-02-02] MEDS: HumaLOG INSULIN (NovoLOG) PER UNIT SC SCH ×4 (07:30→20:55)
[2019-02-02] MEDS: OLANZapine 10 MG TAB PO SCH ×3 (07:46→20:46)
[2019-02-02] MEDS: BENZTROPINE 1 MG TAB PO SCH (07:46)
[2019-02-02] MEDS: metFORMIN (GLUCOPHAGE) 1000 MG TABLET PO SCH ×2 (07:46→17:20)
[2019-02-02] MEDS: DOCUSATE SODIUM 100 MG CAP PO SCH ×2 (07:46→20:45)
[2019-02-02] MEDS: OXcarbazepine 300 MG TAB PO SCH ×2 (07:46→20:46)
[2019-02-02] MEDS: GABAPENTIN 300 MG CAP PO SCH ×2 (07:46→20:45)
[2019-02-02] MEDS: LISINOPRIL 20 MG TAB PO SCH (07:48)
[2019-02-02] MEDS: amLODIPine 10 MG TAB PO SCH (07:48)
[2019-02-02 08:46] LABS: HEMATOCRIT 41.1 % (42.0-52.0); HEMOGLOBIN 13.8 g/dl (13.5-17.5); MEAN CORPUSCULAR HGB CONC 33.6 g/dl (32.0-36.5); MEAN CORPUSCULAR VOLUME 83.5 fl (80.0-96.0); PLATELET COUNT, AUTOMATED 213 10^3/uL (150-450); RED BLOOD COUNT 4.92 10^6/uL (4.30-6.10); WHITE BLOOD COUNT 8.6 10^3/uL (4.0-10.0)
[2019-02-02 09:22] LABS: ALBUMIN 3.8 GM/DL (3.2-5.2); ALT/SGPT 74 U/L (12-78); BILIRUBIN,DIRECT < 0.1 MG/DL (0.0-0.2); BILIRUBIN,TOTAL 0.3 MG/DL (0.2-1.0); BLOOD UREA NITROGEN 11 MG/DL (7-18); CALCIUM LEVEL 8.6 MG/DL (8.5-10.1); CARBON DIOXIDE LEVEL 26 MEQ/L (21-32); CHLORIDE LEVEL 103 MEQ/L (98-107); GLOMERULAR FILTRATION RATE > 60.0 (>56); GLUCOSE, FASTING 211 MG/DL (70-100); SODIUM LEVEL 136 MEQ/L (136-145); TOTAL PROTEIN 7.1 GM/DL (6.4-8.2)
--- NOTE | 2019-02-02 09:22 | MHIPNPDOC ---
[facility] Progress Note Progress Note DATE OF SERVICE: 02/02/19 HISTORY: Patient is a 48 -year-old , male, with psych history of bipolar 1 disorder, multiple admission [facility] and elsewhere ([facility] [place] in the past, recently d/c [facility] 01/26/19 for winsome with psychosis who who was to [facility] by [facility] representatives for winsome, disorganization, agitation,hyperverbal speech, tangential thoughts, restlessness due to med noncompliance since d/c from [facility] last week due to him failing to pick them up. Pt appeared manic and disorganized with nonsensical and rambling speech per [facility] when evaluated there. Pt is a poor historian so history gathered from previous records. Pt seen and very manic, hyperverbal, somewhat agitated, restless, loud, demanding this am arguing with unit techs about needing a long sleeve shirt b/c he was cold. States his meds are at [facility] now and stated something about a mix up with him getting that right after d/c. Pt very tangential, with pressured/rambling speech, goal-directed thoughts, very disorganized talking about having a "hot date with a girl," walking around the unit with his pants pulled up "like Danielhansa Perkins" b/c it's funny, eating 4 breakfast this am so he gave me his yogurt and stated "Maybe there will be a yogurt for you tomorrow," among other rambling and disorganized thoughts. Stated "you'd be wound up to if you hadn't slept for 3 days." Very hard to redirect toward ending interview as keeps rambling on. Will restart previous meds last d/c on plus zyprexa 10mg tid for winsome and one time order thorazine 100mg and ativan 2mg po this am to get pt to sleep and improve winsome. VITAL SIGNS: See below. NEW TEST RESULTS: See below. AST 45, ALT 142, Alk Phos 122, new labs pending for today CURRENT MEDICATIONS: See below. MENTAL STATUS EXAMINATION:Pt currently asleep and left sleeping due to winsome when awake. General Appearance: well groomed, appears stated age, hospital scrubs/clothing Build: overweight Demeanor: preoccupied, very fidget, other (manic, irritable, demanding) Eye Contact: fair Activity: agitated, anxious Behavior: cooperative, agitated, hyperactive, restless Speech: rapid, pressured, normal volume Mood: anxious, euphoric, irritable, elevated, hypomanic Mood "I'm cold... I need a long sleeve shirt!" Affect: inappropriate, labile, anxious, disorganized, other (manic) Thought Process: concrete, tangential, loose, associative, flight of ideas, racing Thought Content (Delusions): grandiose, denies SI, HI, AVH Thought Content (Other): preoccupied, obsessional, ideas of reference Thought Content (Aggressive): none reported Perception (Hallucinations): none reported Perception (Other): none reported Cognition (Impairment of): attention/concentration, ability to abstract Cognition(Intelligence Est.): borderline Oriented: Awake, Alert, Oriented times three Insight: poor Judgment: Poor Psychosis: Associations, Abstract Thinking, Psychotic Perceptions DIAGNOSES: Bipolar disorder, mixed episode ASSESSMENT:Pt seen in his room sleeping and left sleeping due to winsome when awake. Sleep should be beneficial for pt's winsome as hadn't slept for 3 nights prior admission per pt. He is complaint on his medications and tolerating well. MANAGEMENT PLAN: continue plan. LFTs pending, trileptal level in am trileptal 600mg bid zyprexa 15mg qhs zyprexa 10mg tid seroquel 200mg qhs trazodone 50mg qhs prn insomnia. TIME SPENT: 30 minutes. Vital Signs Vital Signs Date Time Temp Pulse Resp B/P (MAP) Pulse Ox O2 Delivery O2 Flow Rate FiO2 02/02/19 07:48 133/81 02/02/19 07:48 97 02/02/19 06:15 97.0 18 01/31/19 16:19 98 01/31/19 16:00 Room Air Laboratory Data 24H Labs Laboratory Tests 2 02/01/19 12:07: Bedside Glucose (Misc Panel) 288H 02/01/19 16:39: Bedside Glucose (Misc Panel) 185H 02/01/19 20:03: Bedside Glucose (Misc Panel) 135H 02/02/19 06:02: Bedside Glucose (Misc Panel) 133H 02/02/19 07:40: Bedside Glucose (Misc Panel) 189H 02/02/19 08:17: Nucleated Red Blood Cells % (auto) 0.0 CBC/BMP Laboratory Tests 02/02/19 08:17 Current Medications Current Medications Medications (Trade) Dose Ordered Sig/Kailey Route PRN Reason Start Time Stop Time Status Last Admin Dose Admin Acetaminophen (Tylenol Tab) 650 mg Q6HP PRN PO HEADACHE or DISCOMFORT 01/31/19 15:00 Al Hydrox/Mg Hydrox/Simethicone (Mylanta) 30 ml Q4HP PRN PO HEARTBURN/INDIGESTION 01/31/19 15:00 Amlodipine Besylate (Norvasc) 10 mg DAILY PO 02/01/19 09:00 02/02/19 07:48 Atorvastatin Calcium (Lipitor) 20 mg QHS PO 01/31/19 21:00 02/01/19 20:44 Benztropine Mesylate (Cogentin) 1 mg DAILY PO 02/01/19 09:00 02/02/19 07:46 Cetylpyridinium Chloride (Cepacol) 1 pranav Q2HP PRN PO COUGH 02/01/19 20:00 02/01/19 20:43 Dextrose (Dextrose 50%) 25 ml ASDIRECTED PRN IV SEE LABEL COMMENTS 01/31/19 15:00 Docusate Sodium (Colace) 100 mg BID PO 01/31/19 21:00 02/02/19 07:46 Gabapentin (Neurontin) 600 mg BID PO 02/01/19 09:00 02/02/19 07:46 Glucagon (Glucagon) 1 mg ASDIRECTED PRN SC SEE LABEL COMMENTS 01/31/19 15:00 Glucose (Glucose) 16 GM ASDIRECTED PRN PO SEE LABEL COMMENTS 01/31/19 15:00 Home Med (Med Rec Complete!) ASDIRECTED XX 01/30/19 19:00 01/30/19 18:54 DC Insulin Human Lispro (HumaLOG INSULIN) 4 units STAT STAT SC 01/31/19 11:22 01/31/19 11:23 DC 01/31/19 11:41 Insulin Human Lispro (HumaLOG INSULIN) See Protocol Table AC SC 01/31/19 17:30 02/01/19 17:03 Insulin Human Lispro (HumaLOG INSULIN) See Protocol Table QHS SC 01/31/19 21:00 Levothyroxine Sodium (Synthroid) 100 mcg DAILY@0600 PO 02/01/19 06:00 02/02/19 05:59 Lisinopril (Prinivil) 20 mg DAILY PO 02/01/19 09:00 02/02/19 07:48 Lorazepam (Ativan) 2 mg Q4HP PRN PO ANXIETY/AGITATION 01/31/19 15:00 01/31/19 17:13 DC Lorazepam (Ativan) 2 mg Q4HP PRN PO ANXIETY/AGITATION 01/31/19 17:13 02/02/19 06:19 Lorazepam (Ativan) 2 mg STAT STAT PO 01/31/19 07:19 01/31/19 07:21 DC 01/31/19 07:27 Magnesium Hydroxide (Milk Of Magnesia) 30 ml DAILYPRN PRN PO CONSTIPATION 01/31/19 15:00 02/01/19 20:43 Metformin HCl (Glucophage) 1,000 mg BID@08,18 PO 02/01/19 18:00 02/02/19 07:46 Olanzapine (ZyPREXA) 10 mg TID PO 01/31/19 21:00 02/02/19 07:46 Olanzapine (ZyPREXA) 15 mg QHS PO 02/01/19 21:00 02/01/19 20:43 Oxcarbazepine (Trileptal) 600 mg BID PO 01/31/19 21:00 02/02/19 07:46 Paliperidone Palmitate (Invega Sustenna) 234 mg Q30D IM 02/26/19 09:00 Phenol (Chloraseptic [place]) 1 spray QIDP PRN MT SORE THROAT 02/01/19 20:00 Quetiapine Fumarate (SEROquel) 200 mg QHS PO 01/31/19 21:00 02/01/19 20:44 Trazodone HCl (Desyrel) 50 mg QHSP PRN PO INSOMNIA 01/31/19 15:00 02/01/19 21:05 Allergies Coded Allergies: Penicillins (Verified Allergy, Intermediate, rash, 01/02/19) divalproex sodium (Verified Allergy, Unknown, 01/02/19) CLAIR STEIN DO Feb 02, 2019 9:22 am
--- NOTE | 2019-02-02 16:18 | IPNPDOC ---
Date Seen The patient was seen on 02/02/19. Progress Note SUBJECTIVE: Patient has no complaints today, still appear to be hyperactive. Reportedly did not sleep overnight. WBC down to 8.6 today, afebrile. OBJECTIVE PHYSICAL EXAMINATION: VITAL SIGNS: Please see below. General: No acute distress, Alert Eyes: Normal sclera, EOMI, MANUELA HENT: Atraumatic, neck supple, moist mucous membranes Cardiovascular: Normal rate, normal rhythm. No murmurs appreciated. Pulmonary: Clear to auscultation b/l, no wheezing GI: Soft, nontender, nondistended Skin: Warm and dry Neuro: CN grossly intact. No focal deficits. Strengths equal b/l. Psych: oriented x 3 LABORATORY DATA, IMAGING STUDIES, MICROBIOLOGY: Please see below. ASSESSMENT AND PLAN: 1. Bipolar disorder - Resume meds and c/w management per Psych. - Thought still very disorganized but patient reportedly feels better after re- initiation. 2. DM - c/w metformin 1000mg BID. - ISS in place as well. Appear to have wide fluctuations. 3. HTN - Resume home meds. 4. Hypothyroidism - c/w synthroid 5. CAD - No chest pain. c/w home meds. BP controlled. Leukocytosis resolved without any signs of infection. Will sign off at this time. Please call back if needed. [facility]/I&O Vital Signs Date Time Temp Pulse Resp B/P (MAP) Pulse Ox O2 Delivery O2 Flow Rate FiO2 02/02/19 07:48 133/81 02/02/19 07:48 97 02/02/19 06:15 97.0 18 01/31/19 16:19 98 01/31/19 16:00 Room Air Laboratory Data 24H LABS Laboratory Tests 2 02/01/19 16:39: Bedside Glucose (Misc Panel) 185H 02/01/19 20:03: Bedside Glucose (Misc Panel) 135H 02/02/19 06:02: Bedside Glucose (Misc Panel) 133H 02/02/19 07:40: Bedside Glucose (Misc Panel) 189H 02/02/19 08:17: Nucleated Red Blood Cells % (auto) 0.0, Anion Gap 7L, Glomerular Filtration Rate > 60.0, Calcium Level 8.6, Total Bilirubin 0.3, Direct Bilirubin < 0.1, Aspartate Amino Transf (AST/SGOT) 25, Alanine Aminotransferase (ALT/SGPT) 74, Alkaline Phosphatase 117, Total Protein 7.1, Albumin 3.8, Albumin/Globulin Ratio 1.15 02/02/19 11:01: 02/02/19 12:16: Bedside Glucose (Misc Panel) 107H CBC/BMP Laboratory Tests 02/02/19 08:17 Microbiology Microbiology 01/31/19 Urine Culture - Final, Complete GARCIACHALO MD Feb 02, 2019 16:18
[2019-02-02] MEDS: CEPACOL LOZENGE PO PRN (17:25)
[2019-02-02 17:42] VITALS: BP 130/81
[2019-02-02] MEDS: ATORVASTATIN 20 MG TAB PO SCH (20:45)
[2019-02-02] MEDS: OLANZapine 5 MG TAB PO SCH (20:46)
[2019-02-02] MEDS: QUEtiapine FUMARATE 200 MG TAB PO SCH (20:46)
[2019-02-02] MEDS: traZODone 50 MG TAB PO PRN (20:46)
[2019-02-02] MEDS: MOM 30ML SUSPENSION UDC PO PRN (21:43)
[2019-02-03] MEDS: ACETAMINOPHEN TAB 650MG DOSE (2X325MG) PO PRN ×2 (01:04→10:45)
[2019-02-03] MEDS: LORazepam 2 MG TAB PO PRN ×3 (01:05→16:30)
[2019-02-03] MEDS: LEVOTHYROXINE 100MCG TABLET (0.1MG) PO SCH (05:58)
[2019-02-03] MEDS: HumaLOG INSULIN (NovoLOG) PER UNIT SC SCH ×4 (06:34→21:00)
[2019-02-03 06:35] VITALS: BP 136/90
[2019-02-03] MEDS: BENZTROPINE 1 MG TAB PO SCH (08:46)
[2019-02-03] MEDS: amLODIPine 10 MG TAB PO SCH (08:46)
[2019-02-03] MEDS: LISINOPRIL 20 MG TAB PO SCH (08:46)
[2019-02-03] MEDS: GABAPENTIN 300 MG CAP PO SCH ×2 (08:46→21:53)
[2019-02-03] MEDS: metFORMIN (GLUCOPHAGE) 1000 MG TABLET PO SCH ×2 (08:46→17:06)
[2019-02-03] MEDS: OLANZapine 10 MG TAB PO SCH ×3 (08:46→21:53)
[2019-02-03] MEDS: OXcarbazepine 300 MG TAB PO SCH ×2 (08:46→21:52)
[2019-02-03] MEDS: DOCUSATE SODIUM 100 MG CAP PO SCH ×2 (08:46→21:53)
--- NOTE | 2019-02-03 10:37 | MHIPNPDOC ---
[facility] Progress Note Progress Note DATE OF SERVICE: 02/03/19 HISTORY: Patient is a 48 -year-old , male, with psych history of bipolar 1 disorder, multiple admission [facility] and elsewhere ([facility] [place] in the past, recently d/c [facility] 01/26/19 for winsome with psychosis who who was to [facility] ED by [facility] representatives for winsome, disorganization, agitation,hyperverbal speech, tangential thoughts, restlessness due to med noncompliance since d/c from [facility] last week due to him failing to pick them up. Pt appeared manic and disorganized with nonsensical and rambling speech per [facility] when evaluated there. Pt is a poor historian so history gathered from previous records. Pt seen and very manic, hyperverbal, somewhat agitated, restless, loud, demanding this am arguing with unit techs about needing a long sleeve shirt b/c he was cold. States his meds are at [facility] now and stated something about a mix up with him getting that right after d/c. Pt very tangential, with pressured/rambling speech, goal-directed thoughts, very disorganized talking about having a "hot date with a girl," walking around the unit with his pants pulled up "like Danielhansa Perkins" b/c it's funny, eating 4 breakfast this am so he gave me his yogurt and stated "Maybe there will be a yogurt for you tomorrow," among other rambling and disorganized thoughts. Stated "you'd be wound up to if you hadn't slept for 3 days." Very hard to redirect toward ending interview as keeps rambling on. Will restart previous meds last d/c on plus zyprexa 10mg tid for winsome and one time order thorazine 100mg and ativan 2mg po this am to get pt to sleep and improve winsome. VITAL SIGNS: See below. NEW TEST RESULTS: See below. AST 45, ALT 142, Alk Phos 122, new labs pending for today CURRENT MEDICATIONS: See below. MENTAL STATUS EXAMINATION:Pt currently asleep and left sleeping due to winsome when awake. General Appearance: well groomed, appears stated age, hospital scrubs/clothing Build: overweight Demeanor: preoccupied, very fidget, other (manic, irritable, demanding) Eye Contact: fair Activity: agitated, anxious Behavior: cooperative, agitated, hyperactive, restless Speech: rapid, pressured, normal volume Mood: anxious, euphoric, irritable, elevated, hypomanic Mood "I'm good" Affect: inappropriate, labile, anxious, disorganized, other (manic) Thought Process: concrete, tangential, loose, associative, flight of ideas, racing Thought Content (Delusions): grandiose, denies SI, HI, AVH Thought Content (Other): preoccupied, obsessional, ideas of reference Thought Content (Aggressive): none reported Perception (Hallucinations): none reported Perception (Other): none reported Cognition (Impairment of): attention/concentration, ability to abstract Cognition(Intelligence Est.): borderline Oriented: Awake, Alert, Oriented times three Insight: poor Judgment: Poor Psychosis: Associations, Abstract Thinking, Psychotic Perceptions DIAGNOSES: Bipolar disorder, mixed episode ASSESSMENT:Pt seen in office rambling on about some girl at [facility] asking me if he can go there after here, increasing his diet to 2400kcal per day, eating 2 breakfast with him, and wanting me to say a rhyme after him, laughing at what he was saying periodically, and very hard to get him to stop talking and answer my questions, redirect out of my office at the end of the interview. Pt continues to hyperverbal, grandiose, tangential, and manic. MANAGEMENT PLAN: continue plan. LFTs pending, trileptal level in am trileptal 600mg bid zyprexa 15mg qhs zyprexa 10mg tid seroquel 200mg qhs trazodone 50mg qhs prn insomnia. TIME SPENT: 30 minutes. Vital Signs Vital Signs Date Time Temp Pulse Resp B/P (MAP) Pulse Ox O2 Delivery O2 Flow Rate FiO2 02/03/19 08:46 100 138/86 02/03/19 06:35 97.2 16 01/31/19 16:19 98 01/31/19 16:00 Room Air Laboratory Data 24H Labs Laboratory Tests 2 02/02/19 11:01: 02/02/19 12:16: Bedside Glucose (Misc Panel) 107H 02/02/19 17:16: Bedside Glucose (Misc Panel) 173H 02/02/19 20:53: Bedside Glucose (Misc Panel) 214H 02/03/19 05:57: Bedside Glucose (Misc Panel) 145H Current Medications Current Medications Medications (Trade) Dose Ordered Sig/Kailey Route PRN Reason Start Time Stop Time Status Last Admin Dose Admin Acetaminophen (Tylenol Tab) 650 mg Q6HP PRN PO HEADACHE or DISCOMFORT 01/31/19 15:00 02/03/19 01:04 Al Hydrox/Mg Hydrox/Simethicone (Mylanta) 30 ml Q4HP PRN PO HEARTBURN/INDIGESTION 01/31/19 15:00 Amlodipine Besylate (Norvasc) 10 mg DAILY PO 02/01/19 09:00 02/03/19 08:46 Atorvastatin Calcium (Lipitor) 20 mg QHS PO 01/31/19 21:00 02/02/19 20:45 Benztropine Mesylate (Cogentin) 1 mg DAILY PO 02/01/19 09:00 02/03/19 08:46 Cetylpyridinium Chloride (Cepacol) 1 pranav Q2HP PRN PO COUGH 02/01/19 20:00 02/02/19 17:25 Dextrose (Dextrose 50%) 25 ml ASDIRECTED PRN IV SEE LABEL COMMENTS 01/31/19 15:00 Docusate Sodium (Colace) 100 mg BID PO 01/31/19 21:00 02/03/19 08:46 Gabapentin (Neurontin) 600 mg BID PO 02/01/19 09:00 02/03/19 08:46 Glucagon (Glucagon) 1 mg ASDIRECTED PRN SC SEE LABEL COMMENTS 01/31/19 15:00 Glucose (Glucose) 16 GM ASDIRECTED PRN PO SEE LABEL COMMENTS 01/31/19 15:00 Home Med (Med Rec Complete!) ASDIRECTED XX 01/30/19 19:00 01/30/19 18:54 DC Insulin Human Lispro (HumaLOG INSULIN) 4 units STAT STAT SC 01/31/19 11:22 01/31/19 11:23 DC 01/31/19 11:41 Insulin Human Lispro (HumaLOG INSULIN) See Protocol Table AC SC 01/31/19 17:30 02/03/19 06:34 Insulin Human Lispro (HumaLOG INSULIN) See Protocol Table QHS SC 01/31/19 21:00 Levothyroxine Sodium (Synthroid) 100 mcg DAILY@0600 PO 02/01/19 06:00 02/03/19 05:58 Lisinopril (Prinivil) 20 mg DAILY PO 02/01/19 09:00 02/03/19 08:46 Lorazepam (Ativan) 2 mg Q4HP PRN PO ANXIETY/AGITATION 01/31/19 15:00 01/31/19 17:13 DC Lorazepam (Ativan) 2 mg Q4HP PRN PO ANXIETY/AGITATION 01/31/19 17:13 02/03/19 01:05 Lorazepam (Ativan) 2 mg STAT STAT PO 01/31/19 07:19 01/31/19 07:21 DC 01/31/19 07:27 Magnesium Hydroxide (Milk Of Magnesia) 30 ml DAILYPRN PRN PO CONSTIPATION 01/31/19 15:00 02/02/19 21:43 Metformin HCl (Glucophage) 1,000 mg BID@08,18 PO 02/01/19 18:00 02/03/19 08:46 Olanzapine (ZyPREXA) 10 mg TID PO 01/31/19 21:00 02/03/19 08:46 Olanzapine (ZyPREXA) 15 mg QHS PO 02/01/19 21:00 02/02/19 20:46 Oxcarbazepine (Trileptal) 600 mg BID PO 01/31/19 21:00 02/03/19 08:46 Paliperidone Palmitate (Invega Sustenna) 234 mg Q30D IM 02/26/19 09:00 Phenol (Chloraseptic [place]) 1 spray QIDP PRN MT SORE THROAT 02/01/19 20:00 Pseudoephedrine HCl (Sudafed) 30 mg BIDP PRN PO NASAL CONGESTION 02/02/19 23:15 Quetiapine Fumarate (SEROquel) 200 mg QHS PO 01/31/19 21:00 02/02/19 20:46 Trazodone HCl (Desyrel) 50 mg QHSP PRN PO INSOMNIA 01/31/19 15:00 02/02/19 20:46 Allergies Coded Allergies: Penicillins (Verified Allergy, Intermediate, rash, 01/02/19) divalproex sodium (Verified Allergy, Unknown, 01/02/19) CLAIR STEIN DO Feb 03, 2019 10:37 am
[2019-02-03] MEDS: CEPACOL LOZENGE PO PRN ×2 (10:45→15:33)
[2019-02-03] MEDS: CHLORASEPTIC SPRAY MT PRN (14:18)
[2019-02-03 16:40] VITALS: BP 129/60
[2019-02-03] MEDS: QUEtiapine FUMARATE 200 MG TAB PO SCH (21:52)
[2019-02-03] MEDS: OLANZapine 5 MG TAB PO SCH (21:53)
[2019-02-03] MEDS: traZODone 50 MG TAB PO PRN (21:53)
[2019-02-03] MEDS: ATORVASTATIN 20 MG TAB PO SCH (21:53)
[2019-02-04] MEDS: ACETAMINOPHEN TAB 650MG DOSE (2X325MG) PO PRN (03:51)
[2019-02-04] MEDS: LORazepam 2 MG TAB PO PRN ×3 (03:51→16:39)
[2019-02-04] MEDS: CHLORASEPTIC SPRAY MT PRN ×2 (03:54→13:05)
[2019-02-04] MEDS: LEVOTHYROXINE 100MCG TABLET (0.1MG) PO SCH (05:32)
[2019-02-04] MEDS: CEPACOL LOZENGE PO PRN ×3 (05:32→16:41)
[2019-02-04 06:54] VITALS: BP 158/76
[2019-02-04] MEDS: HumaLOG INSULIN (NovoLOG) PER UNIT SC SCH ×4 (06:57→21:00)
[2019-02-04] MEDS: metFORMIN (GLUCOPHAGE) 1000 MG TABLET PO SCH ×2 (08:43→17:11)
[2019-02-04] MEDS: GABAPENTIN 300 MG CAP PO SCH ×2 (08:43→21:37)
[2019-02-04] MEDS: OLANZapine 10 MG TAB PO SCH ×3 (08:43→21:37)
[2019-02-04] MEDS: DOCUSATE SODIUM 100 MG CAP PO SCH ×2 (08:43→21:37)
[2019-02-04] MEDS: OXcarbazepine 300 MG TAB PO SCH ×2 (08:44→21:37)
[2019-02-04] MEDS: LISINOPRIL 20 MG TAB PO SCH (08:44)
[2019-02-04] MEDS: amLODIPine 10 MG TAB PO SCH (08:44)
[2019-02-04] MEDS: BENZTROPINE 1 MG TAB PO SCH (08:44)
[2019-02-04] MEDS: MOM 30ML SUSPENSION UDC PO PRN (13:03)
[2019-02-04] MEDS: PSEUDOEPHEDRINE 30 MG TAB PO PRN (14:28)
[2019-02-04 16:32] VITALS: BP 140/79
--- NOTE | 2019-02-04 21:00 | MHIPN ---
DATE: 02/04/2019 VITAL SIGNS: Blood pressure 140/79, pulse 100, temperature 98.2. CHIEF COMPLAINT: Says feels better. SUBJECTIVE: He is seen for followup in the presence of staff. Says feels better and that he is feeling more optimistic. Sleep is okay. MENTAL STATUS EXAMINATION: Neat, cooperative. There is no agitation. Speech is somewhat overly productive but coherent for the most part with a relatively reactive affect. Denies any thoughts of harming himself or anyone else at present. No overt delusions are elicited during this visit. Judgment and insight are imparied. ASSESSMENT: 1. Bipolar disorder, possibly a mixed episode versus winsome with psychosis. PLAN: Continue current care and observations and participation in activities in the unit. He indicated that he wished to stay for about a month, as he has had many hospitalizations recently.
[2019-02-04] MEDS: traZODone 50 MG TAB PO PRN (21:37)
[2019-02-04] MEDS: QUEtiapine FUMARATE 200 MG TAB PO SCH (21:37)
[2019-02-04] MEDS: ATORVASTATIN 20 MG TAB PO SCH (21:38)
[2019-02-04] MEDS: OLANZapine 5 MG TAB PO SCH (21:38)
[2019-02-05] MEDS: ACETAMINOPHEN TAB 650MG DOSE (2X325MG) PO PRN ×2 (01:10→14:33)
[2019-02-05] MEDS: CHLORASEPTIC SPRAY MT PRN ×3 (01:11→15:34)
[2019-02-05] MEDS: LEVOTHYROXINE 100MCG TABLET (0.1MG) PO SCH (06:21)
[2019-02-05] MEDS: LORazepam 2 MG TAB PO PRN ×2 (06:21→14:33)
[2019-02-05 06:37] VITALS: BP 139/65
[2019-02-05] MEDS: HumaLOG INSULIN (NovoLOG) PER UNIT SC SCH ×4 (06:39→21:00)
[2019-02-05] MEDS: amLODIPine 10 MG TAB PO SCH (08:32)
[2019-02-05] MEDS: OXcarbazepine 300 MG TAB PO SCH ×2 (08:32→21:46)
[2019-02-05] MEDS: BENZTROPINE 1 MG TAB PO SCH (08:32)
[2019-02-05] MEDS: GABAPENTIN 300 MG CAP PO SCH ×2 (08:32→21:46)
[2019-02-05] MEDS: OLANZapine 10 MG TAB PO SCH ×3 (08:32→21:45)
[2019-02-05] MEDS: metFORMIN (GLUCOPHAGE) 1000 MG TABLET PO SCH ×2 (08:32→17:17)
[2019-02-05] MEDS: DOCUSATE SODIUM 100 MG CAP PO SCH ×2 (08:32→21:45)
[2019-02-05] MEDS: LISINOPRIL 20 MG TAB PO SCH (08:33)
[2019-02-05] MEDS: PSEUDOEPHEDRINE 30 MG TAB PO PRN (08:35)
[2019-02-05] MEDS: CEPACOL LOZENGE PO PRN (12:10)
[2019-02-05 16:38] VITALS: BP 115/64
[2019-02-05] MEDS: SIMETHICONE 80 MG CHEW TAB PO SCH ×2 (18:17→21:45)
[2019-02-05] MEDS: traZODone 50 MG TAB PO PRN (21:45)
[2019-02-05] MEDS: QUEtiapine FUMARATE 200 MG TAB PO SCH (21:45)
[2019-02-05] MEDS: FLUTICASONE PROP 0.05% NASAL SPRAY 16 GM (FLONASE) NARES SCH (21:45)
[2019-02-05] MEDS: OLANZapine 5 MG TAB PO SCH (21:46)
[2019-02-05] MEDS: ATORVASTATIN 20 MG TAB PO SCH (21:46)
[2019-02-06] MEDS: LORazepam 2 MG TAB PO PRN ×5 (00:24→21:14)
[2019-02-06] MEDS: CHLORASEPTIC SPRAY MT PRN ×4 (00:28→21:14)
[2019-02-06] MEDS: LEVOTHYROXINE 100MCG TABLET (0.1MG) PO SCH (06:38)
[2019-02-06 06:40] VITALS: BP 176/91
[2019-02-06] MEDS: ACETAMINOPHEN TAB 650MG DOSE (2X325MG) PO PRN ×2 (06:41→16:49)
[2019-02-06] MEDS: HumaLOG INSULIN (NovoLOG) PER UNIT SC SCH ×4 (07:30→21:00)
[2019-02-06] MEDS: DOCUSATE SODIUM 100 MG CAP PO SCH ×2 (08:12→21:12)
[2019-02-06] MEDS: LISINOPRIL 20 MG TAB PO SCH (08:12)
[2019-02-06] MEDS: SIMETHICONE 80 MG CHEW TAB PO SCH ×3 (08:12→21:12)
[2019-02-06] MEDS: OXcarbazepine 300 MG TAB PO SCH ×2 (08:12→21:12)
[2019-02-06] MEDS: amLODIPine 10 MG TAB PO SCH (08:12)
[2019-02-06] MEDS: metFORMIN (GLUCOPHAGE) 1000 MG TABLET PO SCH ×2 (08:12→17:40)
[2019-02-06] MEDS: OLANZapine 10 MG TAB PO SCH ×3 (08:12→21:12)
[2019-02-06] MEDS: BENZTROPINE 1 MG TAB PO SCH (08:12)
[2019-02-06] MEDS: GABAPENTIN 300 MG CAP PO SCH ×2 (08:12→21:13)
[2019-02-06] MEDS: FLUTICASONE PROP 0.05% NASAL SPRAY 16 GM (FLONASE) NARES SCH ×2 (08:13→21:13)
[2019-02-06] MEDS: MOM 30ML SUSPENSION UDC PO PRN (10:01)
--- NOTE | 2019-02-06 10:20 | MHIPNPDOC ---
[facility] Progress Note Progress Note DATE OF SERVICE: 02/06/19 HISTORY: Patient is a 48 -year-old , male, with psych history of bipolar 1 disorder, multiple admission [facility] and elsewhere ([facility]) in the past, recently d/c [facility] 01/26/19 for winsome with psychosis who who was to [facility] by [facility] representatives for winsome, disorganization, agitation,hyperverbal speech, tangential thoughts, restlessness due to med noncompliance since d/c from [facility] last week due to him failing to pick them up. Pt appeared manic and disorganized with nonsensical and rambling speech per [facility] when evaluated there. Pt is a poor historian so history gathered from previous records. Pt seen and very manic, hyperverbal, somewhat agitated, restless, loud, demanding this am arguing with unit techs about needing a long sleeve shirt b/c he was cold. States his meds are at [facility] now and stated something about a mix up with him getting that right after d/c. Pt very tangential, with pressured/rambling speech, goal-directed thoughts, very disorganized talking about having a "hot date with a girl," walking around the unit with his pants pulled up "like Daniel Perkins" b/c it's funny, eating 4 breakfast this am so he gave me his yogurt and stated "Maybe there will be a yogurt for you tomorrow," among other rambling and disorganized thoughts. Stated "you'd be wound up to if you hadn't slept for 3 days." Very hard to redirect toward ending interview as keeps rambling on. Will restart previous meds last d/c on plus zyprexa 10mg tid for winsome and one time order thorazine 100mg and ativan 2mg po this am to get pt to sleep and improve winsome. VITAL SIGNS: See below. NEW TEST RESULTS: See below. AST/ALT/Alk Phos all wnl, trileptal level 15 (therapeutic) CURRENT MEDICATIONS: See below. MENTAL STATUS EXAMINATION: General Appearance: well groomed, appears stated age, hospital scrubs/clothing Build: overweight Demeanor: less preoccupied, very fidget, other (less manic) Eye Contact: fair Activity: anxious, mild to moderately hyperactive Behavior: cooperative, less hyperactive and restless Speech: less apid, pressured, normal volume Mood: less euphoric, elevated, hypomanic Mood "ok" Affect: less labile, disorganized, other (manic) Thought Process: concrete. less tangential, racing Thought Content (Delusions): less grandiose, denies SI, HI, AVH Thought Content (Other): less preoccupied, obsessional, ideas of reference Thought Content (Aggressive): none reported Perception (Hallucinations): none reported Perception (Other): none reported Cognition (Impairment of): attention/concentration, ability to abstract Cognition(Intelligence Est.): borderline Oriented: Awake, Alert, Oriented times three Insight: poor Judgment: Poor Psychosis: improving DIAGNOSES: Bipolar disorder, mixed episode ASSESSMENT:Pt seen in office and is slightly less manic today as he's able to sit and listen periodically during interview but not for long before talking with hyperverbal and tangential speech. "I'll stay with you for 6months so I don't have to come back, it's preventing me from being able to live my life having to come back after 5 days" and laughing to himself. He continues to be very goal directed and grandiose in his thoughts talking about eating 2 breakfasts daily, making jokes and laughing to his own jokes, taking about various random future plans. AT times his thoughts are linear and logical. States he takes a nap during the day and sleeps roughly 5hrs nightly. Is asking if trazodone can be increased to help him sleep for longer periods at night. He denies SI/HI, hallucinations. Feels safe here. MANAGEMENT PLAN: continue plan. LFTs pending, trileptal level in am trileptal 600mg bid zyprexa 15mg qhs zyprexa 10mg tid seroquel 200mg qhs trazodone 50mg qhs prn insomnia. TIME SPENT: 30 minutes. Vital Signs Vital Signs Date Time Temp Pulse Resp B/P (MAP) Pulse Ox O2 Delivery O2 Flow Rate FiO2 02/06/19 08:12 102 114/85 02/06/19 06:40 97.0 14 02/04/19 06:54 Room Air 01/31/19 16:19 98 Laboratory Data 24H Labs Laboratory Tests 2 02/05/19 12:05: Bedside Glucose (Misc Panel) 145H 10/20/19 17:13: Bedside Glucose (Misc Panel) 207H 02/05/19 21:38: Bedside Glucose (Misc Panel) 175H 02/06/19 06:31: Bedside Glucose (Misc Panel) 136H Current Medications Current Medications Medications (Trade) Dose Ordered Sig/Kailey Route PRN Reason Start Time Stop Time Status Last Admin Dose Admin Acetaminophen (Tylenol Tab) 650 mg Q6HP PRN PO HEADACHE or DISCOMFORT 01/31/19 15:00 02/06/19 06:41 Al Hydrox/Mg Hydrox/Simethicone (Mylanta) 30 ml Q4HP PRN PO HEARTBURN/INDIGESTION 01/31/19 15:00 Amlodipine Besylate (Norvasc) 10 mg DAILY PO 02/01/19 09:00 02/06/19 08:12 Atorvastatin Calcium (Lipitor) 20 mg QHS PO 01/31/19 21:00 02/05/19 21:46 Benztropine Mesylate (Cogentin) 1 mg DAILY PO 02/01/19 09:00 02/06/19 08:12 Cetylpyridinium Chloride (Cepacol) 1 pranav Q2HP PRN PO COUGH 02/01/19 20:00 02/05/19 12:10 Dextrose (Dextrose 50%) 25 ml ASDIRECTED PRN IV SEE LABEL COMMENTS 01/31/19 15:00 Docusate Sodium (Colace) 100 mg BID PO 01/31/19 21:00 02/06/19 08:12 Fluticasone Propionate (Flonase 0.05% Nasal [place]) 1 spray BID NARES 02/05/19 21:00 02/06/19 08:13 Gabapentin (Neurontin) 600 mg BID PO 02/01/19 09:00 02/06/19 08:12 Glucagon (Glucagon) 1 mg ASDIRECTED PRN SC SEE LABEL COMMENTS 01/31/19 15:00 Glucose (Glucose) 16 GM ASDIRECTED PRN PO SEE LABEL COMMENTS 01/31/19 15:00 Home Med (Med Rec Complete!) ASDIRECTED XX 01/30/19 19:00 01/30/19 18:54 DC Insulin Human Lispro (HumaLOG INSULIN) 4 units STAT STAT SC 01/31/19 11:22 01/31/19 11:23 DC 01/31/19 11:41 Insulin Human Lispro (HumaLOG INSULIN) See Protocol Table AC SC 01/31/19 17:30 02/06/19 07:30 Insulin Human Lispro (HumaLOG INSULIN) See Protocol Table QHS SC 01/31/19 21:00 Levothyroxine Sodium (Synthroid) 100 mcg DAILY@0600 PO 02/01/19 06:00 02/06/19 06:38 Lisinopril (Prinivil) 20 mg DAILY PO 02/01/19 09:00 02/06/19 08:12 Lorazepam (Ativan) 2 mg Q4HP PRN PO ANXIETY/AGITATION 01/31/19 15:00 01/31/19 17:13 DC Lorazepam (Ativan) 2 mg Q4HP PRN PO ANXIETY/AGITATION 01/31/19 17:13 02/06/19 08:12 Lorazepam (Ativan) 2 mg STAT STAT PO 01/31/19 07:19 01/31/19 07:21 DC 01/31/19 07:27 Magnesium Hydroxide (Milk Of Magnesia) 30 ml DAILYPRN PRN PO CONSTIPATION 01/31/19 15:00 02/06/19 10:01 Metformin HCl (Glucophage) 1,000 mg BID@08,18 PO 02/01/19 18:00 02/06/19 08:12 Olanzapine (ZyPREXA) 10 mg TID PO 01/31/19 21:00 02/06/19 08:12 Olanzapine (ZyPREXA) 15 mg QHS PO 02/01/19 21:00 02/05/19 21:46 Oxcarbazepine (Trileptal) 600 mg BID PO 01/31/19 21:00 02/06/19 08:12 Paliperidone Palmitate (Invega Sustenna) 234 mg Q30D IM 02/26/19 09:00 Phenol (Chloraseptic [place]) 1 spray QIDP PRN MT SORE THROAT 02/01/19 20:00 02/06/19 08:13 Pseudoephedrine HCl (Sudafed) 30 mg BIDP PRN PO NASAL CONGESTION 02/02/19 23:15 02/05/19 08:35 Quetiapine Fumarate (SEROquel) 200 mg QHS PO 01/31/19 21:00 02/05/19 21:45 Simethicone (Mylicon) 80 mg TID PO 02/05/19 16:00 02/06/19 08:12 Trazodone HCl (Desyrel) 50 mg QHSP PRN PO INSOMNIA 01/31/19 15:00 02/05/19 21:45 Allergies Coded Allergies: Penicillins (Verified Allergy, Intermediate, rash, 01/02/19) divalproex sodium (Verified Allergy, Unknown, 01/02/19) CLAIR STEIN DO Feb 06, 2019 10:20 am
[2019-02-06] MEDS: CEPACOL LOZENGE PO PRN ×2 (11:16→14:48)
[2019-02-06 15:29] VITALS: BP 152/76
[2019-02-06] MEDS: traZODone 50 MG TAB PO PRN (21:12)
[2019-02-06] MEDS: ATORVASTATIN 20 MG TAB PO SCH (21:12)
[2019-02-06] MEDS: QUEtiapine FUMARATE 200 MG TAB PO SCH (21:12)
[2019-02-06] MEDS: OLANZapine 5 MG TAB PO SCH (21:12)
[2019-02-07] MEDS: CHLORASEPTIC SPRAY MT PRN ×2 (04:17→11:16)
[2019-02-07] MEDS: ACETAMINOPHEN TAB 650MG DOSE (2X325MG) PO PRN ×2 (04:17→16:27)
[2019-02-07] MEDS: CEPACOL LOZENGE PO PRN ×3 (05:32→18:31)
[2019-02-07] MEDS: LEVOTHYROXINE 100MCG TABLET (0.1MG) PO SCH (05:32)
[2019-02-07] MEDS: LORazepam 2 MG TAB PO PRN (05:32)
[2019-02-07] MEDS: HumaLOG INSULIN (NovoLOG) PER UNIT SC SCH ×4 (06:47→21:00)
[2019-02-07 06:55] VITALS: BP 142/75
[2019-02-07] MEDS: DOCUSATE SODIUM 100 MG CAP PO SCH ×2 (08:51→21:00)
[2019-02-07] MEDS: SIMETHICONE 80 MG CHEW TAB PO SCH ×3 (08:52→21:00)
[2019-02-07] MEDS: OLANZapine 10 MG TAB PO SCH ×3 (08:52→21:00)
[2019-02-07] MEDS: OXcarbazepine 300 MG TAB PO SCH ×2 (08:52→21:00)
[2019-02-07] MEDS: GABAPENTIN 300 MG CAP PO SCH ×2 (08:52→21:00)
[2019-02-07] MEDS: BENZTROPINE 1 MG TAB PO SCH (08:52)
[2019-02-07] MEDS: FLUTICASONE PROP 0.05% NASAL SPRAY 16 GM (FLONASE) NARES SCH ×2 (08:53→21:00)
[2019-02-07] MEDS: LISINOPRIL 20 MG TAB PO SCH (08:53)
[2019-02-07] MEDS: amLODIPine 10 MG TAB PO SCH (08:53)
[2019-02-07] MEDS: metFORMIN (GLUCOPHAGE) 1000 MG TABLET PO SCH ×2 (08:53→17:06)
--- NOTE | 2019-02-07 09:00 | MHIPNPDOC ---
[facility] Progress Note Progress Note DATE OF SERVICE: 02/07/19 HISTORY: Patient is a 48 -year-old , male, with psych history of bipolar 1 disorder, multiple admission [facility] and elsewhere ([facility] in the past, recently d/c [facility] 01/26/19 for winsome with psychosis who who was to [facility] by [facility] representatives for winsome, disorganization, agitation,hyperverbal speech, tangential thoughts, restlessness due to med noncompliance since d/c from [facility] last week due to him failing to pick them up. Pt appeared manic and disorganized with nonsensical and rambling speech per [facility] when evaluated there. Pt is a poor historian so history gathered from previous records. Pt seen and very manic, hyperverbal, somewhat agitated, restless, loud, demanding this am arguing with unit techs about needing a long sleeve shirt b/c he was cold. States his meds are at [facility] now and stated something about a mix up with him getting that right after d/c. Pt very tangential, with pressured/rambling speech, goal-directed thoughts, very disorganized talking about having a "hot date with a girl," walking around the unit with his pants pulled up "like Daniel Perkins" b/c it's funny, eating 4 breakfast this am so he gave me his yogurt and stated "Maybe there will be a yogurt for you tomorrow," among other rambling and disorganized thoughts. Stated "you'd be wound up to if you hadn't slept for 3 days." Very hard to redirect toward ending interview as keeps rambling on. Will restart previous meds last d/c on plus zyprexa 10mg tid for winsome and one time order thorazine 100mg and ativan 2mg po this am to get pt to sleep and improve winsome. VITAL SIGNS: See below. NEW TEST RESULTS: See below. AST/ALT/Alk Phos all wnl, trileptal level 15 (therapeutic) CURRENT MEDICATIONS: See below. MENTAL STATUS EXAMINATION: General Appearance: well groomed, appears stated age, hospital scrubs/clothing Build: overweight Demeanor: less preoccupied, other (less manic) Eye Contact: fair Activity: mild hyperactive Behavior: cooperative, less hyperactive and restless Speech: less rapid, pressured, normal volume Mood: less euphoric, elevated, hypomanic Mood "good" Affect: less labile, disorganized, other (manic) Thought Process: concrete. less tangential, racing Thought Content (Delusions): less grandiose, denies SI, HI, AVH Thought Content (Other): less preoccupied, obsessional, ideas of reference Thought Content (Aggressive): none reported Perception (Hallucinations): none reported Perception (Other): none reported Cognition (Impairment of): attention/concentration, ability to abstract Cognition(Intelligence Est.): borderline Oriented: Awake, Alert, Oriented times three Insight: poor Judgment: Poor Psychosis: improving DIAGNOSES: Bipolar disorder, mixed episode ASSESSMENT:Pt seen in office and and is less manic today as he's able to sit and listen better periodically during interview with less hyperverbal and tangential speech. States he's doing exercises in his room and walking the milieu b/c he wants to loose weight but also likes to eat 2 breakfast b/c "I like that full feeling" and "muscle weighs more than fat." Encourage to eat more healthy food if he has an increase in appetite secondary zyprexa to limit weight gain. He is less goal directed and grandiose in his thoughts today. His thoughts are more linear and logical. States he sleeps roughly 5hrs nightly. Is asking if trazodone can be increased to help him sleep for longer periods at night. He denies SI/HI, hallucinations. Feels safe here. MANAGEMENT PLAN: continue plan. LFTs pending, trileptal level in am trileptal 600mg bid zyprexa 15mg qhs zyprexa 10mg tid seroquel 200mg qhs trazodone 50mg qhs prn insomnia. TIME SPENT: 30 minutes. Vital Signs Vital Signs Date Time Temp Pulse Resp B/P (MAP) Pulse Ox O2 Delivery O2 Flow Rate FiO2 02/07/19 06:55 96.8 89 16 142/75 (97) 02/04/19 06:54 Room Air Laboratory Data 24H Labs Laboratory Tests 2 02/06/19 11:37: Bedside Glucose (Misc Panel) 128H 02/06/19 16:34: Bedside Glucose (Misc Panel) 183H 02/06/19 21:12: Bedside Glucose (Misc Panel) 145H 02/07/19 05:31: Bedside Glucose (Misc Panel) 126H Current Medications Current Medications Medications (Trade) Dose Ordered Sig/Kailey Route PRN Reason Start Time Stop Time Status Last Admin Dose Admin Acetaminophen (Tylenol Tab) 650 mg Q6HP PRN PO HEADACHE or DISCOMFORT 01/31/19 15:00 02/07/19 04:17 Al Hydrox/Mg Hydrox/Simethicone (Mylanta) 30 ml Q4HP PRN PO HEARTBURN/INDIGESTION 01/31/19 15:00 Amlodipine Besylate (Norvasc) 10 mg DAILY PO 02/01/19 09:00 02/06/19 08:12 Atorvastatin Calcium (Lipitor) 20 mg QHS PO 01/31/19 21:00 02/06/19 21:12 Benztropine Mesylate (Cogentin) 1 mg DAILY PO 02/01/19 09:00 02/06/19 08:12 Cetylpyridinium Chloride (Cepacol) 1 pranav Q2HP PRN PO COUGH 02/01/19 20:00 02/07/19 05:32 Dextrose (Dextrose 50%) 25 ml ASDIRECTED PRN IV SEE LABEL COMMENTS 01/31/19 15:00 Docusate Sodium (Colace) 100 mg BID PO 01/31/19 21:00 02/06/19 21:12 Fluticasone Propionate (Flonase 0.05% Nasal [place]) 1 spray BID NARES 02/05/19 21:00 02/06/19 21:13 Gabapentin (Neurontin) 600 mg BID PO 02/01/19 09:00 02/06/19 21:13 Glucagon (Glucagon) 1 mg ASDIRECTED PRN SC SEE LABEL COMMENTS 01/31/19 15:00 Glucose (Glucose) 16 GM ASDIRECTED PRN PO SEE LABEL COMMENTS 01/31/19 15:00 Home Med (Med Rec Complete!) ASDIRECTED XX 01/30/19 19:00 01/30/19 18:54 DC Insulin Human Lispro (HumaLOG INSULIN) 4 units STAT STAT SC 01/31/19 11:22 01/31/19 11:23 DC 01/31/19 11:41 Insulin Human Lispro (HumaLOG INSULIN) See Protocol Table AC SC 01/31/19 17:30 02/07/19 06:47 Insulin Human Lispro (HumaLOG INSULIN) See Protocol Table QHS SC 01/31/19 21:00 Levothyroxine Sodium (Synthroid) 100 mcg DAILY@0600 PO 02/01/19 06:00 02/07/19 05:32 Lisinopril (Prinivil) 20 mg DAILY PO 02/01/19 09:00 02/06/19 08:12 Lorazepam (Ativan) 2 mg Q4HP PRN PO ANXIETY/AGITATION 01/31/19 15:00 01/31/19 17:13 DC Lorazepam (Ativan) 2 mg Q4HP PRN PO ANXIETY/AGITATION 01/31/19 17:13 02/07/19 05:32 Lorazepam (Ativan) 2 mg STAT STAT PO 01/31/19 07:19 01/31/19 07:21 DC 01/31/19 07:27 Magnesium Hydroxide (Milk Of Magnesia) 30 ml DAILYPRN PRN PO CONSTIPATION 01/31/19 15:00 02/06/19 10:01 Metformin HCl (Glucophage) 1,000 mg BID@08,18 PO 02/01/19 18:00 02/06/19 17:40 Miscellaneous (Unresolved Clarification Entry) SEE LABEL COMMENTS DAILY XX 02/06/19 09:00 02/07/19 06:47 DC Miscellaneous (Unresolved Clarification Entry) SEE LABEL COMMENTS DAILY XX 02/07/19 09:00 Olanzapine (ZyPREXA) 10 mg TID PO 01/31/19 21:00 02/06/19 21:12 Olanzapine (ZyPREXA) 15 mg QHS PO 02/01/19 21:00 02/06/19 21:12 Oxcarbazepine (Trileptal) 600 mg BID PO 01/31/19 21:00 02/06/19 21:12 Paliperidone Palmitate (Invega Sustenna) 234 mg Q30D IM 02/26/19 09:00 Phenol (Chloraseptic [place]) 1 spray QIDP PRN MT SORE THROAT 02/01/19 20:00 02/07/19 04:17 Pseudoephedrine HCl (Sudafed) 30 mg BIDP PRN PO NASAL CONGESTION 02/02/19 23:15 02/05/19 08:35 Quetiapine Fumarate (SEROquel) 200 mg QHS PO 01/31/19 21:00 02/06/19 21:12 Simethicone (Mylicon) 80 mg TID PO 02/05/19 16:00 02/06/19 21:12 Trazodone HCl (Desyrel) 50 mg QHSP PRN PO INSOMNIA 01/31/19 15:00 02/06/19 21:12 Allergies Coded Allergies: Penicillins (Verified Allergy, Intermediate, rash, 01/02/19) divalproex sodium (Verified Allergy, Unknown, 01/02/19) CLAIR STEIN DO Feb 07, 2019 9:00 am
[2019-02-07 18:00] VITALS: BP 117/58
[2019-02-07] MEDS: QUEtiapine FUMARATE 200 MG TAB PO SCH (21:00)
[2019-02-07] MEDS: OLANZapine 5 MG TAB PO SCH (21:00)
[2019-02-07] MEDS: ATORVASTATIN 20 MG TAB PO SCH (21:00)
[2019-02-08] MEDS: LORazepam 2 MG TAB PO PRN (04:59)
[2019-02-08] MEDS: LEVOTHYROXINE 100MCG TABLET (0.1MG) PO SCH (05:02)
[2019-02-08 07:32] VITALS: BP 156/94
[2019-02-08] MEDS: HumaLOG INSULIN (NovoLOG) PER UNIT SC SCH ×4 (08:20→20:16)
[2019-02-08] MEDS: LISINOPRIL 20 MG TAB PO SCH (08:22)
[2019-02-08] MEDS: BENZTROPINE 1 MG TAB PO SCH (08:22)
[2019-02-08] MEDS: OLANZapine 10 MG TAB PO SCH ×4 (08:22→20:15)
[2019-02-08] MEDS: SIMETHICONE 80 MG CHEW TAB PO SCH ×3 (08:22→20:15)
[2019-02-08] MEDS: metFORMIN (GLUCOPHAGE) 1000 MG TABLET PO SCH ×2 (08:22→17:32)
[2019-02-08] MEDS: GABAPENTIN 300 MG CAP PO SCH ×2 (08:22→20:15)
[2019-02-08] MEDS: amLODIPine 10 MG TAB PO SCH (08:23)
[2019-02-08] MEDS: OXcarbazepine 300 MG TAB PO SCH ×2 (08:23→20:16)
[2019-02-08] MEDS: FLUTICASONE PROP 0.05% NASAL SPRAY 16 GM (FLONASE) NARES SCH ×2 (08:23→20:15)
[2019-02-08] MEDS: DOCUSATE SODIUM 100 MG CAP PO SCH ×2 (08:25→20:15)
--- NOTE | 2019-02-08 09:11 | MHIPNPDOC ---
[facility] Progress Note Progress Note DATE OF SERVICE: 02/08/19 HISTORY: Patient is a 48 -year-old , male, with psych history of bipolar 1 disorder, multiple admission [facility] and elsewhere ([facility] in the past, recently d[facility]c [facility] 01/[facility]/19 for winsome with psychosis who who was to [facility] by [facility] representatives for winsome, disorganization, agitation,hyperverbal speech, tangential thoughts, restlessness due to med noncompliance since d/c [facility] last week due to him failing to pick them up. Pt appeared manic and disorganized with nonsensical and rambling speech per [facility] when evaluated there. Pt is a poor historian so history gathered from previous records. Pt seen and very manic, hyperverbal, somewhat agitated, restless, loud, demanding this am arguing with unit techs about needing a long sleeve shirt b/c he was cold. States his meds are at [facility] now and stated something about a mix up with him getting that right after d/c. Pt very tangential, with pressured/rambling speech, goal-directed thoughts, very disorganized talking about having a "hot date with a girl," walking around the unit with his pants pulled up "like Daniel Perkins" b/c it's funny, eating 4 breakfast this am so he gave me his yogurt and stated "Maybe there will be a yogurt for you tomorrow," among other rambling and disorganized thoughts. Stated "you'd be wound up to if you hadn't slept for 3 days." Very hard to redirect toward ending interview as keeps rambling on. Will restart previous meds last d/c on plus zyprexa 10mg tid for winsome and one time order thorazine 100mg and ativan 2mg po this am to get pt to sleep and improve winsome. VITAL SIGNS: See below. NEW TEST RESULTS: See below. AST/ALT/Alk Phos all wnl, trileptal level 15 (therapeutic) CURRENT MEDICATIONS: See below. MENTAL STATUS EXAMINATION: General Appearance: well groomed, appears stated age, hospital scrubs/clothing Build: overweight Demeanor: more preoccupied, other (more manic) Eye Contact: fair Activity: hyperactive Behavior: cooperative, more hyperactive and restless Speech: more rapid, pressured, normal volume Mood: more euphoric, elevated, hypomanic Mood "ok" Affect: more labile, disorganized, other (manic) Thought Process: concrete. more tangential, racing Thought Content (Delusions): more grandiose, denies SI, HI, AVH Thought Content (Other): more preoccupied, obsessional, ideas of reference Thought Content (Aggressive): none reported Perception (Hallucinations): none reported Perception (Other): none reported Cognition (Impairment of): attention/concentration, ability to abstract Cognition(Intelligence Est.): borderline Oriented: Awake, Alert, Oriented times three Insight: poor Judgment: Poor Psychosis: improving DIAGNOSES: Bipolar disorder, mixed episode ASSESSMENT:Pt seen in office this morning with his pants pulled up to his chest stating b/c he wants to get a job on a golf course at an old [employer] home and play with all the old people that wear their pants like he is. Pt then passed gas in my office and laughed stating he still needs to take his gas pill today which is why he has gas continuing to laugh. He is manic, euphoric, and hyperverbal. Encourage to eat more healthy food if he has an increase in appetite secondary zyprexa to limit weight gain. He is more goal directed and grandiose in his thoughts today. His thoughts are less linear and logical. States he sleeps roughly 5hrs nightly. He denies SI/HI, hallucinations. Feels safe here. MANAGEMENT PLAN: continue plan. trileptal 600mg bid zyprexa 15mg qhs zyprexa 10mg tid seroquel 200mg qhs trazodone 50mg qhs prn insomnia. TIME SPENT: 30 minutes. Vital Signs Vital Signs Date Time Temp Pulse Resp B/P (MAP) Pulse Ox O2 Delivery O2 Flow Rate FiO2 02/08/19 08:23 104 156/94 02/08/19 07:47 Room Air 02/08/19 07:32 97.8 20 Laboratory Data 24H Labs Laboratory Tests 2 02/07/19 11:56: Bedside Glucose (Misc Panel) 159H 02/07/19 16:58: Bedside Glucose (Misc Panel) 169H 02/07/19 23:19: Bedside Glucose (Misc Panel) 161H 02/08/19 05:05: Bedside Glucose (Misc Panel) 135H Current Medications Current Medications Medications (Trade) Dose Ordered Sig/Kailey Route PRN Reason Start Time Stop Time Status Last Admin Dose Admin Acetaminophen (Tylenol Tab) 650 mg Q6HP PRN PO HEADACHE or DISCOMFORT 01/31/19 15:00 02/07/19 16:27 Al Hydrox/Mg Hydrox/Simethicone (Mylanta) 30 ml Q4HP PRN PO HEARTBURN/INDIGESTION 01/31/19 15:00 Amlodipine Besylate (Norvasc) 10 mg DAILY PO 02/01/19 09:00 02/08/19 08:23 Atorvastatin Calcium (Lipitor) 20 mg QHS PO 01/31/19 21:00 02/06/19 21:12 Benztropine Mesylate (Cogentin) 1 mg DAILY PO 02/01/19 09:00 02/08/19 08:22 Cetylpyridinium Chloride (Cepacol) 1 pranav Q2HP PRN PO COUGH 02/01/19 20:00 02/07/19 18:31 Dextrose (Dextrose 50%) 25 ml ASDIRECTED PRN IV SEE LABEL COMMENTS 01/31/19 15:00 Docusate Sodium (Colace) 100 mg BID PO 01/31/19 21:00 02/08/19 08:25 Fluticasone Propionate (Flonase 0.05% Nasal [place]) 1 spray BID NARES 02/05/19 21:00 02/08/19 08:23 Gabapentin (Neurontin) 600 mg BID PO 02/01/19 09:00 02/08/19 08:22 Glucagon (Glucagon) 1 mg ASDIRECTED PRN SC SEE LABEL COMMENTS 01/31/19 15:00 Glucose (Glucose) 16 GM ASDIRECTED PRN PO SEE LABEL COMMENTS 01/31/19 15:00 Home Med (Med Rec Complete!) ASDIRECTED XX 01/30/19 19:00 01/30/19 18:54 DC Insulin Human Lispro (HumaLOG INSULIN) 4 units STAT STAT SC 01/31/19 11:22 01/31/19 11:23 DC 01/31/19 11:41 Insulin Human Lispro (HumaLOG INSULIN) See Protocol Table AC SC 01/31/19 17:30 02/08/19 08:20 Insulin Human Lispro (HumaLOG INSULIN) See Protocol Table QHS SC 01/31/19 21:00 Levothyroxine Sodium (Synthroid) 100 mcg DAILY@0600 PO 02/01/19 06:00 02/08/19 05:02 Lisinopril (Prinivil) 20 mg DAILY PO 02/01/19 09:00 02/08/19 08:22 Lorazepam (Ativan) 2 mg Q4HP PRN PO ANXIETY/AGITATION 01/31/19 15:00 01/31/19 17:13 DC Lorazepam (Ativan) 2 mg Q4HP PRN PO ANXIETY/AGITATION 01/31/19 17:13 02/08/19 04:59 Lorazepam (Ativan) 2 mg STAT STAT PO 01/31/19 07:19 01/31/19 07:21 DC 01/31/19 07:27 Magnesium Hydroxide (Milk Of Magnesia) 30 ml DAILYPRN PRN PO CONSTIPATION 01/31/19 15:00 02/06/19 10:01 Metformin HCl (Glucophage) 1,000 mg BID@08,18 PO 02/01/19 18:00 02/08/19 08:22 Miscellaneous (Unresolved Clarification Entry) SEE LABEL COMMENTS DAILY XX 02/06/19 09:00 02/07/19 06:47 DC Miscellaneous (Unresolved Clarification Entry) SEE LABEL COMMENTS DAILY XX 02/07/19 09:00 02/07/19 14:14 DC Olanzapine (ZyPREXA) 10 mg TID PO 01/31/19 21:00 02/08/19 08:22 Olanzapine (ZyPREXA) 15 mg QHS PO 02/01/19 21:00 02/06/19 21:12 Oxcarbazepine (Trileptal) 600 mg BID PO 01/31/19 21:00 02/08/19 08:23 Paliperidone Palmitate (Invega Sustenna) 234 mg Q30D IM 02/26/19 09:00 Phenol (Chloraseptic [place]) 1 spray QIDP PRN MT SORE THROAT 02/01/19 20:00 02/07/19 11:16 Pseudoephedrine HCl (Sudafed) 30 mg BIDP PRN PO NASAL CONGESTION 02/02/19 23:15 02/05/19 08:35 Quetiapine Fumarate (SEROquel) 200 mg QHS PO 01/31/19 21:00 02/06/19 21:12 Simethicone (Mylicon) 80 mg TID PO 02/05/19 16:00 02/08/19 08:22 Trazodone HCl (Desyrel) 50 mg QHSP PRN PO INSOMNIA 01/31/19 15:00 02/07/19 09:00 DC 02/06/19 21:12 Trazodone HCl (Desyrel) 100 mg QHSP PRN PO INSOMNIA 02/07/19 09:00 Allergies Coded Allergies: Penicillins (Verified Allergy, Intermediate, rash, 01/02/19) divalproex sodium (Verified Allergy, Unknown, 01/02/19) CLAIR STEIN DO Feb 08, 2019 9:11 am
[2019-02-08] MEDS: MOM 30ML SUSPENSION UDC PO PRN (10:20)
[2019-02-08] MEDS: ACETAMINOPHEN TAB 650MG DOSE (2X325MG) PO PRN ×2 (12:07→21:46)
[2019-02-08] MEDS: CEPACOL LOZENGE PO PRN ×2 (14:26→20:03)
[2019-02-08] MEDS: ATORVASTATIN 20 MG TAB PO SCH (20:15)
[2019-02-08] MEDS: QUEtiapine FUMARATE 200 MG TAB PO SCH (20:16)
[2019-02-08] MEDS: traZODone 100 MG TAB PO PRN (21:44)
[2019-02-08] MEDS: LORazepam 1 MG TAB PO PRN (22:04)
[2019-02-08] MEDS: CHLORASEPTIC SPRAY MT PRN (22:05)
[2019-02-08] MEDS: PSEUDOEPHEDRINE 30 MG TAB PO PRN (23:13)
[2019-02-09] MEDS: LORazepam 1 MG TAB PO PRN ×3 (04:11→22:49)
[2019-02-09] MEDS: CHLORASEPTIC SPRAY MT PRN (04:11)
[2019-02-09] MEDS: ACETAMINOPHEN TAB 650MG DOSE (2X325MG) PO PRN ×2 (04:12→13:59)
[2019-02-09] MEDS: LEVOTHYROXINE 100MCG TABLET (0.1MG) PO SCH (05:44)
[2019-02-09 06:35] VITALS: BP 125/81
[2019-02-09] MEDS: HumaLOG INSULIN (NovoLOG) PER UNIT SC SCH ×4 (06:52→21:00)
[2019-02-09] MEDS: DOCUSATE SODIUM 100 MG CAP PO SCH ×2 (08:31→21:35)
[2019-02-09] MEDS: SIMETHICONE 80 MG CHEW TAB PO SCH ×3 (08:31→21:35)
[2019-02-09] MEDS: LISINOPRIL 20 MG TAB PO SCH (08:31)
[2019-02-09] MEDS: FLUTICASONE PROP 0.05% NASAL SPRAY 16 GM (FLONASE) NARES SCH ×2 (08:31→22:45)
[2019-02-09] MEDS: amLODIPine 10 MG TAB PO SCH (08:32)
[2019-02-09] MEDS: OLANZapine 10 MG TAB PO SCH ×4 (08:32→21:35)
[2019-02-09] MEDS: metFORMIN (GLUCOPHAGE) 1000 MG TABLET PO SCH ×2 (08:33→17:07)
[2019-02-09] MEDS: BENZTROPINE 1 MG TAB PO SCH (08:33)
[2019-02-09] MEDS: GABAPENTIN 300 MG CAP PO SCH ×2 (08:33→21:36)
[2019-02-09] MEDS: OXcarbazepine 300 MG TAB PO SCH ×2 (08:33→21:35)
[2019-02-09] MEDS: CEPACOL LOZENGE PO PRN (14:02)
[2019-02-09 18:00] VITALS: BP 139/79
[2019-02-09] MEDS: ATORVASTATIN 20 MG TAB PO SCH (21:36)
[2019-02-09] MEDS: QUEtiapine FUMARATE 200 MG TAB PO SCH (21:36)
[2019-02-09] MEDS: traZODone 100 MG TAB PO PRN (22:49)
[2019-02-10] MEDS: CHLORASEPTIC SPRAY MT PRN ×4 (02:28→23:38)
[2019-02-10] MEDS: ACETAMINOPHEN TAB 650MG DOSE (2X325MG) PO PRN ×4 (02:28→20:50)
[2019-02-10] MEDS: CEPACOL LOZENGE PO PRN ×4 (03:17→23:37)
[2019-02-10] MEDS: PSEUDOEPHEDRINE 30 MG TAB PO PRN ×2 (03:19→14:47)
[2019-02-10] MEDS: LEVOTHYROXINE 100MCG TABLET (0.1MG) PO SCH (05:45)
[2019-02-10 06:18] VITALS: BP 158/77
[2019-02-10] MEDS: HumaLOG INSULIN (NovoLOG) PER UNIT SC SCH ×4 (06:40→20:40)
[2019-02-10] MEDS: DOCUSATE SODIUM 100 MG CAP PO SCH ×2 (08:16→20:40)
[2019-02-10] MEDS: GABAPENTIN 300 MG CAP PO SCH ×2 (08:16→20:40)
[2019-02-10] MEDS: OLANZapine 10 MG TAB PO SCH ×4 (08:16→20:42)
[2019-02-10] MEDS: BENZTROPINE 1 MG TAB PO SCH ×2 (08:16→23:34)
[2019-02-10] MEDS: FLUTICASONE PROP 0.05% NASAL SPRAY 16 GM (FLONASE) NARES SCH ×2 (08:16→20:40)
[2019-02-10] MEDS: OXcarbazepine 300 MG TAB PO SCH ×2 (08:17→20:40)
[2019-02-10] MEDS: metFORMIN (GLUCOPHAGE) 1000 MG TABLET PO SCH ×2 (08:17→17:22)
[2019-02-10] MEDS: SIMETHICONE 80 MG CHEW TAB PO SCH ×3 (08:17→20:41)
[2019-02-10] MEDS: amLODIPine 10 MG TAB PO SCH (08:17)
[2019-02-10] MEDS: LISINOPRIL 20 MG TAB PO SCH (08:17)
--- NOTE | 2019-02-10 08:33 | MHIPNPDOC ---
[facility] Progress Note Progress Note DATE OF SERVICE: 02/10/19 HISTORY: Patient is a 48 -year-old , male, with psych history of bipolar 1 disorder, multiple admission [facility] and elsewhere ([facility] [place] in the past, recently d/c [facility] 01/26/19 for winsome with psychosis who who was to [facility] ED by [facility] representatives for winsome, disorganization, agitation,hyperverbal speech, tangential thoughts, restlessness due to med noncompliance since d/c from [facility] last week due to him failing to pick them up. Pt appeared manic and disorganized with nonsensical and rambling speech per [facility] ED when evaluated there. Pt is a poor historian so history gathered from previous records. Pt seen and very manic, hyperverbal, somewhat agitated, restless, loud, demanding this am arguing with unit techs about needing a long sleeve shirt b/c he was cold. States his meds are at [facility] now and stated something about a mix up with him getting that right after d/c. Pt very tangential, with pressured/rambling speech, goal-directed thoughts, very disorganized talking about having a "hot date with a girl," walking around the unit with his pants pulled up "like Daniel Perkins" b/c it's funny, eating 4 breakfast this am so he gave me his yogurt and stated "Maybe there will be a yogurt for you tomorrow," among other rambling and disorganized thoughts. Stated "you'd be wound up to if you hadn't slept for 3 days." Very hard to redirect toward ending interview as keeps rambling on. Will restart previous meds last d/c on plus zyprexa 10mg tid for winsome and one time order thorazine 100mg and ativan 2mg po this am to get pt to sleep and improve winsome. VITAL SIGNS: See below. NEW TEST RESULTS: See below. AST/ALT/Alk Phos all wnl, trileptal level 15 (therapeutic) CURRENT MEDICATIONS: See below. MENTAL STATUS EXAMINATION: General Appearance: well groomed, appears stated age, hospital scrubs/clothing Build: overweight Demeanor: less preoccupied, other (more manic) Eye Contact: fair Activity: less hyperactive Behavior: cooperative, less hyperactive and restless Speech: less rapid, pressured, normal volume Mood: less euphoric, elevated, hypomanic Mood "alright" Affect: less labile, disorganized, other (manic) Thought Process: concrete. less tangential, racing Thought Content (Delusions): less grandiose, denies SI, HI, AVH Thought Content (Other): less preoccupied, obsessional, ideas of reference Thought Content (Aggressive): none reported Perception (Hallucinations): none reported Perception (Other): none reported Cognition (Impairment of): attention/concentration, ability to abstract Cognition(Intelligence Est.): borderline Oriented: Awake, Alert, Oriented times three Insight: poor Judgment: Poor Psychosis: improving DIAGNOSES: Bipolar disorder, mixed episode ASSESSMENT:Pt seen in office this morning with stating he slept 4hrs during the day yesterday as he was having diabetic nerve pain and had iced his feet as well which helped and states it's better today with tylenol prn pain for relief. Did not sleep much last night due to sleeping during the day. He is less manic, euphoric, and hyperverbal with increase in nightly zyprexa which appears beneficial. Encourage to eat more healthy food if he has an increase in appetite secondary zyprexa to limit weight gain. He is less goal directed and grandiose in his thoughts although states his he's missing his friends auction he promiced to be at to get something. His thoughts are more linear and logical. He denies SI/HI, hallucinations. Feels safe here. MANAGEMENT PLAN: continue plan. trileptal 600mg bid zyprexa 15mg qhs zyprexa 10mg tid seroquel 200mg qhs trazodone 50mg qhs prn insomnia. TIME SPENT: 30 minutes. Vital Signs Vital Signs Date Time Temp Pulse Resp B/P (MAP) Pulse Ox O2 Delivery O2 Flow Rate FiO2 02/10/19 08:17 162/78 02/10/19 08:17 103 02/10/19 06:18 97.3 16 02/08/19 07:47 Room Air Laboratory Data 24H Labs Laboratory Tests 2 02/09/19 11:57: Bedside Glucose (Misc Panel) 176H 02/09/19 17:03: Bedside Glucose (Misc Panel) 193H 02/09/19 22:47: Bedside Glucose (Misc Panel) 113H 02/10/19 05:43: Bedside Glucose (Misc Panel) 118H Current Medications Current Medications Medications (Trade) Dose Ordered Sig/Kailey Route PRN Reason Start Time Stop Time Status Last Admin Dose Admin Acetaminophen (Tylenol Tab) 650 mg Q6HP PRN PO HEADACHE or DISCOMFORT 01/31/19 15:00 02/10/19 02:28 Al Hydrox/Mg Hydrox/Simethicone (Mylanta) 30 ml Q4HP PRN PO HEARTBURN/INDIGESTION 01/31/19 15:00 Amlodipine Besylate (Norvasc) 10 mg DAILY PO 02/01/19 09:00 02/10/19 08:17 Atorvastatin Calcium (Lipitor) 20 mg QHS PO 01/31/19 21:00 02/09/19 21:36 Benztropine Mesylate (Cogentin) 1 mg DAILY PO 02/01/19 09:00 02/10/19 08:16 Cetylpyridinium Chloride (Cepacol) 1 pranav Q2HP PRN PO COUGH 02/01/19 20:00 02/10/19 03:17 Dextrose (Dextrose 50%) 25 ml ASDIRECTED PRN IV SEE LABEL COMMENTS 01/31/19 15:00 Docusate Sodium (Colace) 100 mg BID PO 01/31/19 21:00 02/10/19 08:16 Fluticasone Propionate (Flonase 0.05% Nasal [place]) 1 spray BID NARES 02/05/19 21:00 02/10/19 08:16 Gabapentin (Neurontin) 600 mg BID PO 02/01/19 09:00 02/10/19 08:16 Glucagon (Glucagon) 1 mg ASDIRECTED PRN SC SEE LABEL COMMENTS 01/31/19 15:00 Glucose (Glucose) 16 GM ASDIRECTED PRN PO SEE LABEL COMMENTS 01/31/19 15:00 Home Med (Med Rec Complete!) ASDIRECTED XX 01/30/19 19:00 01/30/19 18:54 DC Insulin Human Lispro (HumaLOG INSULIN) 4 units STAT STAT SC 01/31/19 11:22 01/31/19 11:23 DC 01/31/19 11:41 Insulin Human Lispro (HumaLOG INSULIN) See Protocol Table AC SC 01/31/19 17:30 02/10/19 06:40 Insulin Human Lispro (HumaLOG INSULIN) See Protocol Table QHS SC 01/31/19 21:00 Levothyroxine Sodium (Synthroid) 100 mcg DAILY@0600 PO 02/01/19 06:00 02/10/19 05:45 Lisinopril (Prinivil) 20 mg DAILY PO 02/01/19 09:00 02/10/19 08:17 Lorazepam (Ativan) 1 mg Q6H PRN PO ANXIETY/AGITATION 02/08/19 14:15 02/09/19 22:49 Lorazepam (Ativan) 2 mg Q4HP PRN PO ANXIETY/AGITATION 01/31/19 15:00 01/31/19 17:13 DC Lorazepam (Ativan) 2 mg Q4HP PRN PO ANXIETY/AGITATION 01/31/19 17:13 02/08/19 14:04 DC 02/08/19 04:59 Lorazepam (Ativan) 2 mg STAT STAT PO 01/31/19 07:19 01/31/19 07:21 DC 01/31/19 07:27 Magnesium Hydroxide (Milk Of Magnesia) 30 ml DAILYPRN PRN PO CONSTIPATION 01/31/19 15:00 02/08/19 10:20 Metformin HCl (Glucophage) 1,000 mg BID@08,18 PO 02/01/19 18:00 02/10/19 08:17 Miscellaneous (Unresolved Clarification Entry) SEE LABEL COMMENTS DAILY XX 02/06/19 09:00 02/07/19 06:47 DC Miscellaneous (Unresolved Clarification Entry) SEE LABEL COMMENTS DAILY XX 02/07/19 09:00 02/07/19 14:14 DC Olanzapine (ZyPREXA) 10 mg TID PO 01/31/19 21:00 02/10/19 08:16 Olanzapine (ZyPREXA) 15 mg QHS PO 02/01/19 21:00 02/08/19 11:52 DC 02/06/19 21:12 Olanzapine (ZyPREXA) 20 mg QHS PO 02/08/19 21:00 02/09/19 21:35 Oxcarbazepine (Trileptal) 600 mg BID PO 01/31/19 21:00 02/10/19 08:17 Paliperidone Palmitate (Invega Sustenna) 234 mg Q30D IM 02/26/19 09:00 Phenol (Chloraseptic [place]) 1 spray QIDP PRN MT SORE THROAT 02/01/19 20:00 02/10/19 08:23 Pseudoephedrine HCl (Sudafed) 30 mg BIDP PRN PO NASAL CONGESTION 02/02/19 23:15 02/10/19 03:19 Quetiapine Fumarate (SEROquel) 200 mg QHS PO 01/31/19 21:00 02/09/19 21:36 Simethicone (Mylicon) 80 mg TID PO 02/05/19 16:00 02/10/19 08:17 Trazodone HCl (Desyrel) 50 mg QHSP PRN PO INSOMNIA 01/31/19 15:00 02/07/19 09:00 DC 02/06/19 21:12 Trazodone HCl (Desyrel) 100 mg QHSP PRN PO INSOMNIA 02/07/19 09:00 02/09/19 22:49 Allergies Coded Allergies: Penicillins (Verified Allergy, Intermediate, rash, 01/02/19) divalproex sodium (Verified Allergy, Unknown, 01/02/19) CLAIR STEIN DO Feb 10, 2019 8:33 am
[2019-02-10] MEDS ORDERED: TUBERCULIN PPD 5 UNITS/0.1 ML ID ONE (08:45)
[2019-02-10] MEDS: **PENDING PPD ENTRY XX SCH (09:00)
[2019-02-10] MEDS: LORazepam 1 MG TAB PO PRN ×3 (09:04→23:36)
[2019-02-10] MEDS: MOM 30ML SUSPENSION UDC PO PRN (10:37)
[2019-02-10] MEDS: hydroCHLOROthiazide 12.5 MG CAPSULE PO SCH (11:20)
[2019-02-10] MEDS: THERAPEUTIC BATH LOTION 240 ML BTL TOP SCH ×3 (12:22→20:41)
[2019-02-10 18:00] VITALS: BP 138/88
[2019-02-10] MEDS: ATORVASTATIN 20 MG TAB PO SCH (20:40)
[2019-02-10] MEDS: QUEtiapine FUMARATE 200 MG TAB PO SCH (20:40)
[2019-02-10] MEDS: DIMETHICONE 2% OINTMENT(VANIPLY) 70GM TUBE TOP PRN (20:41)
[2019-02-10] MEDS: traZODone 100 MG TAB PO PRN (21:55)
[2019-02-10] MEDS: MIRTAZAPINE 15 MG TAB PO PRN (23:34)
[2019-02-11] MEDS: CEPACOL LOZENGE PO PRN ×4 (02:41→22:14)
[2019-02-11] MEDS: LEVOTHYROXINE 100MCG TABLET (0.1MG) PO SCH (05:51)
[2019-02-11] MEDS: LORazepam 1 MG TAB PO PRN (06:01)
[2019-02-11] MEDS: ACETAMINOPHEN TAB 650MG DOSE (2X325MG) PO PRN ×2 (06:02→16:29)
[2019-02-11] MEDS: CHLORASEPTIC SPRAY MT PRN ×4 (06:03→23:19)
[2019-02-11 06:42] VITALS: BP 137/89
[2019-02-11] MEDS: HumaLOG INSULIN (NovoLOG) PER UNIT SC SCH ×4 (07:00→22:04)
[2019-02-11] MEDS: FLUTICASONE PROP 0.05% NASAL SPRAY 16 GM (FLONASE) NARES SCH ×2 (08:30→22:10)
[2019-02-11] MEDS: amLODIPine 10 MG TAB PO SCH (08:30)
[2019-02-11] MEDS: SIMETHICONE 80 MG CHEW TAB PO SCH ×3 (08:31→22:08)
[2019-02-11] MEDS: OXcarbazepine 300 MG TAB PO SCH ×2 (08:31→22:09)
[2019-02-11] MEDS: OLANZapine 10 MG TAB PO SCH ×4 (08:31→22:10)
[2019-02-11] MEDS: hydroCHLOROthiazide 12.5 MG CAPSULE PO SCH (08:31)
[2019-02-11] MEDS: LISINOPRIL 20 MG TAB PO SCH (08:31)
[2019-02-11] MEDS: GABAPENTIN 300 MG CAP PO SCH ×2 (08:31→22:09)
[2019-02-11] MEDS: DOCUSATE SODIUM 100 MG CAP PO SCH ×2 (08:31→22:08)
[2019-02-11] MEDS: BENZTROPINE 1 MG TAB PO SCH ×2 (08:31→22:09)
[2019-02-11] MEDS: metFORMIN (GLUCOPHAGE) 1000 MG TABLET PO SCH ×2 (08:31→17:58)
[2019-02-11] MEDS: **PENDING PPD ENTRY XX SCH (09:00)
[2019-02-11] MEDS: PSEUDOEPHEDRINE 30 MG TAB PO PRN (09:59)
[2019-02-11] MEDS: DIMETHICONE 2% OINTMENT(VANIPLY) 70GM TUBE TOP PRN (10:01)
[2019-02-11] MEDS: THERAPEUTIC BATH LOTION 240 ML BTL TOP SCH ×2 (11:59→14:00)
[2019-02-11 16:09] VITALS: BP 151/82
[2019-02-11] MEDS: MOM 30ML SUSPENSION UDC PO PRN (17:24)
[2019-02-11] MEDS: QUEtiapine FUMARATE 200 MG TAB PO SCH (22:08)
[2019-02-11] MEDS: ATORVASTATIN 20 MG TAB PO SCH (22:08)
[2019-02-11] MEDS: traZODone 100 MG TAB PO PRN (23:19)
[2019-02-11] MEDS: MIRTAZAPINE 15 MG TAB PO PRN (23:19)
[2019-02-12] MEDS: CHLORASEPTIC SPRAY MT PRN (03:54)
[2019-02-12] MEDS: LEVOTHYROXINE 100MCG TABLET (0.1MG) PO SCH (05:35)
[2019-02-12] MEDS: CEPACOL LOZENGE PO PRN ×2 (05:50→08:31)
[2019-02-12 06:36] VITALS: BP 134/86
[2019-02-12] MEDS: metFORMIN (GLUCOPHAGE) 1000 MG TABLET PO SCH ×2 (07:29→17:03)
[2019-02-12] MEDS: HumaLOG INSULIN (NovoLOG) PER UNIT SC SCH ×4 (07:33→21:00)
[2019-02-12] MEDS: OXcarbazepine 300 MG TAB PO SCH ×2 (08:31→21:54)
[2019-02-12] MEDS: FLUTICASONE PROP 0.05% NASAL SPRAY 16 GM (FLONASE) NARES SCH ×2 (08:31→21:52)
[2019-02-12] MEDS: DOCUSATE SODIUM 100 MG CAP PO SCH ×2 (08:31→21:54)
[2019-02-12] MEDS: amLODIPine 10 MG TAB PO SCH (08:31)
[2019-02-12] MEDS: SIMETHICONE 80 MG CHEW TAB PO SCH ×3 (08:32→21:55)
[2019-02-12] MEDS: BENZTROPINE 1 MG TAB PO SCH ×2 (08:32→21:54)
[2019-02-12] MEDS: hydroCHLOROthiazide 12.5 MG CAPSULE PO SCH (08:32)
[2019-02-12] MEDS: **PENDING PPD ENTRY XX SCH (08:32)
[2019-02-12] MEDS: OLANZapine 10 MG TAB PO SCH ×4 (08:32→21:54)
[2019-02-12] MEDS: GABAPENTIN 300 MG CAP PO SCH ×2 (08:32→21:54)
[2019-02-12] MEDS: LISINOPRIL 20 MG TAB PO SCH (08:32)
[2019-02-12] MEDS ORDERED: PPD DOCUMENTATION ENTRY MISC ID SCH (10:00)
[2019-02-12 16:19] VITALS: BP 136/86
[2019-02-12] MEDS: ATORVASTATIN 20 MG TAB PO SCH (21:55)
[2019-02-12] MEDS: QUEtiapine FUMARATE 200 MG TAB PO SCH (21:55)
[2019-02-12] MEDS: traZODone 100 MG TAB PO PRN (21:55)
[2019-02-13] MEDS: LEVOTHYROXINE 100MCG TABLET (0.1MG) PO SCH (06:28)
[2019-02-13] MEDS: HumaLOG INSULIN (NovoLOG) PER UNIT SC SCH ×4 (06:29→20:40)
[2019-02-13 07:00] VITALS: BP 159/84
[2019-02-13] MEDS: FLUTICASONE PROP 0.05% NASAL SPRAY 16 GM (FLONASE) NARES SCH ×2 (08:11→20:35)
[2019-02-13] MEDS: OXcarbazepine 300 MG TAB PO SCH ×2 (08:11→20:40)
[2019-02-13] MEDS: BENZTROPINE 1 MG TAB PO SCH ×2 (08:11→20:36)
[2019-02-13] MEDS: metFORMIN (GLUCOPHAGE) 1000 MG TABLET PO SCH ×2 (08:11→17:10)
[2019-02-13] MEDS: GABAPENTIN 300 MG CAP PO SCH ×2 (08:11→20:36)
[2019-02-13] MEDS: amLODIPine 10 MG TAB PO SCH (08:11)
[2019-02-13] MEDS: OLANZapine 10 MG TAB PO SCH ×4 (08:11→20:38)
[2019-02-13] MEDS: SIMETHICONE 80 MG CHEW TAB PO SCH ×3 (08:11→20:39)
[2019-02-13] MEDS: DOCUSATE SODIUM 100 MG CAP PO SCH ×2 (08:11→20:37)
[2019-02-13] MEDS: hydroCHLOROthiazide 12.5 MG CAPSULE PO SCH (08:12)
[2019-02-13] MEDS: LISINOPRIL 20 MG TAB PO SCH (08:12)
[2019-02-13] MEDS: **PENDING PPD ENTRY XX SCH (09:00)
--- NOTE | 2019-02-13 09:15 | MHIPNPDOC ---
[facility] Progress Note Progress Note DATE OF SERVICE: 02/13/19 HISTORY: Patient is a 48 -year-old , male, with psych history of bipolar 1 disorder, multiple admission [facility] and [place] [place] the [place], recently d/c [facility] 01/26/19 for winsome with psychosis who who was to [facility] ED by [facility] representatives for winsome, disorganization, agitation,hyperverbal speech, tangential thoughts, restlessness due to med noncompliance since d/c from [facility] last week due to him failing to pick them up. Pt appeared manic and disorganized with nonsensical and rambling speech per [facility] when evaluated there. Pt is a poor historian so history gathered from previous records. Pt seen and very manic, hyperverbal, somewhat agitated, restless, loud, demanding this am arguing with unit techs about needing a long sleeve shirt b/c he was cold. States his meds are at [facility] now and stated something about a mix up with him getting that right after d/c. Pt very tangential, with pressured/rambling speech, goal-directed thoughts, very disorganized talking about having a "hot date with a girl," walking around the unit with his pants pulled up "like Daniel Perkins" b/c it's funny, eating 4 breakfast this am so he gave me his yogurt and stated "Maybe there will be a yogurt for you tomorrow," among other rambling and disorganized thoughts. Stated "you'd be wound up to if you hadn't slept for 3 days." Very hard to redirect toward ending interview as keeps rambling on. Will restart previous meds last d/c on plus zyprexa 10mg tid for winsome and one time order thorazine 100mg and ativan 2mg po this am to get pt to sleep and improve winsome. VITAL SIGNS: See below. NEW TEST RESULTS: See below. AST/ALT/Alk Phos all wnl, trileptal level 15 (therapeutic) CURRENT MEDICATIONS: See below. MENTAL STATUS EXAMINATION: General Appearance: well groomed, appears stated age, hospital scrubs/clothing Build: overweight Demeanor: less preoccupied, other (more manic) Eye Contact: fair Activity: less hyperactive Behavior: cooperative, less hyperactive and restless Speech: less rapid, pressured, normal volume Mood: less euphoric, elevated, hypomanic Mood "alright" Affect: less labile, disorganized, other (manic) Thought Process: concrete. circumferential, racing Thought Content (Delusions): less grandiose, denies SI, HI, AVH Thought Content (Other): less preoccupied, obsessional, ideas of reference Thought Content (Aggressive): none reported Perception (Hallucinations): none reported Perception (Other): none reported Cognition (Impairment of): attention/concentration, ability to abstract Cognition(Intelligence Est.): borderline Oriented: Awake, Alert, Oriented times three Insight: poor Judgment: Poor Psychosis: improving DIAGNOSES: Bipolar disorder, mixed episode ASSESSMENT:Pt seen in office this morning talking about his planter fasciitis and that pains he's gone thru with it, talking about walking 11miles to the hospital in 4hrs in the past for help. Then went into talking about post nasal drip and being on flonase and having it so bad when previously here causing him to have a sore throat and unable to swallow his pills b/c of it which why he was med noncompliant upon d/c which isn't true, what happened as he never picked up his scripts from the pharmacy. He is less manic, euphoric, but continues to be circumferential and hyperverbal with increase in nightly zyprexa which appears beneficial. Encourage to eat more healthy food if he has an increase in appetite secondary zyprexa to limit weight gain. He is less goal directed and grandiose in his thoughts although states his he's missing his friends auction he promised to be at to get something. States he's sleeping better when with increase in trazodone. He denies SI/HI, hallucinations. Feels safe here. MANAGEMENT PLAN: continue plan. trileptal 600mg bid zyprexa 15mg qhs zyprexa 10mg tid seroquel 200mg qhs trazodone 100mg qhs prn insomnia. TIME SPENT: 30 minutes. Vital Signs Vital Signs Date Time Temp Pulse Resp B/P (MAP) Pulse Ox O2 Delivery O2 Flow Rate FiO2 02/13/19 08:11 96 127/73 02/13/19 07:00 98.3 18 Room Air Laboratory Data 24H Labs Laboratory Tests 2 02/12/19 12:16: Bedside Glucose (Misc Panel) 186H 02/12/19 17:00: Bedside Glucose (Misc Panel) 144H 02/12/19 21:45: Bedside Glucose (Misc Panel) 155H 02/13/19 06:23: Bedside Glucose (Misc Panel) 148H Current Medications Current Medications Medications (Trade) Dose Ordered Sig/Kailey Route PRN Reason Start Time Stop Time Status Last Admin Dose Admin Acetaminophen (Tylenol Tab) 650 mg Q6HP PRN PO HEADACHE or DISCOMFORT 01/31/19 15:00 02/11/19 16:29 Al Hydrox/Mg Hydrox/Simethicone (Mylanta) 30 ml Q4HP PRN PO HEARTBURN/INDIGESTION 01/31/19 15:00 Amlodipine Besylate (Norvasc) 10 mg DAILY PO 02/01/19 09:00 02/13/19 08:11 Atorvastatin Calcium (Lipitor) 20 mg QHS PO 01/31/19 21:00 02/12/19 21:55 Benztropine Mesylate (Cogentin) 1 mg BID PO 02/10/19 21:00 02/13/19 08:11 Benztropine Mesylate (Cogentin) 1 mg DAILY PO 02/01/19 09:00 02/10/19 22:48 DC 02/10/19 08:16 Cetylpyridinium Chloride (Cepacol) 1 pranav Q2HP PRN PO COUGH 02/01/19 20:00 02/12/19 08:31 Dextrose (Dextrose 50%) 25 ml ASDIRECTED PRN IV SEE LABEL COMMENTS 01/31/19 15:00 Dimethicone (Vaniply) 0.3 dose Q6H PRN TOP DISCOMFORT 02/10/19 11:00 02/11/19 10:01 Docusate Sodium (Colace) 100 mg BID PO 01/31/19 21:00 02/13/19 08:11 Fluticasone Propionate (Flonase 0.05% Nasal [place]) 1 spray BID NARES 02/05/19 21:00 02/13/19 08:11 Gabapentin (Neurontin) 600 mg BID PO 02/01/19 09:00 02/13/19 08:11 Glucagon (Glucagon) 1 mg ASDIRECTED PRN SC SEE LABEL COMMENTS 01/31/19 15:00 Glucose (Glucose) 16 GM ASDIRECTED PRN PO SEE LABEL COMMENTS 01/31/19 15:00 Home Med (Med Rec Complete!) ASDIRECTED XX 01/30/19 19:00 01/30/19 18:54 DC Hydrochlorothiazide (Hydrodiuril) 12.5 mg QAM PO 02/10/19 09:00 02/13/19 08:12 Insulin Human Lispro (HumaLOG INSULIN) 4 units STAT STAT SC 01/31/19 11:22 01/31/19 11:23 DC 01/31/19 11:41 Insulin Human Lispro (HumaLOG INSULIN) See Protocol Table AC SC 01/31/19 17:30 02/13/19 06:29 Insulin Human Lispro (HumaLOG INSULIN) See Protocol Table QHS SC 01/31/19 21:00 Levothyroxine Sodium (Synthroid) 100 mcg DAILY@0600 PO 02/01/19 06:00 02/13/19 06:28 Lisinopril (Prinivil) 20 mg DAILY PO 02/01/19 09:00 02/13/19 08:12 Lorazepam (Ativan) 1 mg Q6H PRN PO ANXIETY/AGITATION 02/08/19 14:15 02/11/19 06:01 Lorazepam (Ativan) 2 mg Q4HP PRN PO ANXIETY/AGITATION 01/31/19 15:00 01/31/19 17:13 DC Lorazepam (Ativan) 2 mg Q4HP PRN PO ANXIETY/AGITATION 01/31/19 17:13 02/08/19 14:04 DC 02/08/19 04:59 Lorazepam (Ativan) 2 mg STAT STAT PO 01/31/19 07:19 01/31/19 07:21 DC 01/31/19 07:27 Magnesium Hydroxide (Milk Of Magnesia) 30 ml DAILYPRN PRN PO CONSTIPATION 01/31/19 15:00 02/11/19 17:24 Metformin HCl (Glucophage) 1,000 mg BID@08,18 PO 02/01/19 18:00 02/13/19 08:11 Mirtazapine (Remeron) 15 mg QHSP PRN PO INSOMNIA 02/10/19 22:45 02/12/19 21:00 DC 02/11/19 23:19 Miscellaneous (Unresolved Clarification Entry) SEE LABEL COMMENTS DAILY XX 02/06/19 09:00 02/07/19 06:47 DC Miscellaneous (Unresolved Clarification Entry) SEE LABEL COMMENTS DAILY XX 02/07/19 09:00 02/07/19 14:14 DC Multi-Ingredient Lotion (Loreto Lotion) 1 dose QID TOP 02/10/19 13:00 Hold Non-Formulary Medication ( See Comment Field Below ) SEE COMMENTS SECTION 1T@10 ID 02/12/19 10:00 02/13/19 09:59 UNV Non-Formulary Medication ( See Comment Field Below ) SEE LABEL COMMENTS DAILY XX 02/10/19 09:00 Olanzapine (ZyPREXA) 10 mg TID PO 01/31/19 21:00 02/13/19 08:11 Olanzapine (ZyPREXA) 15 mg QHS PO 02/01/19 21:00 02/08/19 11:52 DC 02/06/19 21:12 Olanzapine (ZyPREXA) 20 mg QHS PO 02/08/19 21:00 02/12/19 21:54 Oxcarbazepine (Trileptal) 600 mg BID PO 01/31/19 21:00 02/13/19 08:11 Paliperidone Palmitate (Invega Sustenna) 234 mg Q30D IM 02/26/19 09:00 Phenol (Chloraseptic [place]) 1 spray QIDP PRN MT SORE THROAT 02/01/19 20:00 02/12/19 03:54 Pseudoephedrine HCl (Sudafed) 30 mg BIDP PRN PO NASAL CONGESTION 02/02/19 23:15 02/11/19 09:59 Quetiapine Fumarate (SEROquel) 200 mg QHS PO 01/31/19 21:00 02/12/19 21:55 Simethicone (Mylicon) 80 mg TID PO 02/05/19 16:00 02/13/19 08:11 Trazodone HCl (Desyrel) 50 mg QHSP PRN PO INSOMNIA 01/31/19 15:00 02/07/19 09:00 DC 02/06/19 21:12 Trazodone HCl (Desyrel) 100 mg QHSP PRN PO INSOMNIA 02/07/19 09:00 02/12/19 21:55 Allergies Coded Allergies: Penicillins (Verified Allergy, Intermediate, rash, 01/02/19) divalproex sodium (Verified Allergy, Unknown, 01/02/19) CLAIR STEIN DO Feb 13, 2019 8:53 am
[2019-02-13] MEDS: THERAPEUTIC BATH LOTION 240 ML BTL TOP SCH ×3 (13:00→21:43)
[2019-02-13 16:00] VITALS: BP 134/76
[2019-02-13] MEDS: ATORVASTATIN 20 MG TAB PO SCH (20:36)
[2019-02-13] MEDS: QUEtiapine FUMARATE 200 MG TAB PO SCH (20:40)
[2019-02-13] MEDS: traZODone 100 MG TAB PO PRN (21:42)
[2019-02-13] MEDS: diphenhydrAMINE 50 MG CAP PO SCH (21:42)
[2019-02-14] MEDS: LEVOTHYROXINE 100MCG TABLET (0.1MG) PO SCH (06:14)
[2019-02-14 06:39] VITALS: BP 126/84
[2019-02-14] MEDS: HumaLOG INSULIN (NovoLOG) PER UNIT SC SCH ×4 (06:56→21:00)
[2019-02-14] MEDS: metFORMIN (GLUCOPHAGE) 1000 MG TABLET PO SCH ×2 (07:33→17:18)
[2019-02-14] MEDS: THERAPEUTIC BATH LOTION 240 ML BTL TOP SCH ×4 (07:35→21:00)
[2019-02-14] MEDS: OLANZapine 10 MG TAB PO SCH ×4 (08:42→21:08)
[2019-02-14] MEDS: DOCUSATE SODIUM 100 MG CAP PO SCH ×2 (08:42→21:09)
[2019-02-14] MEDS: hydroCHLOROthiazide 12.5 MG CAPSULE PO SCH (08:42)
[2019-02-14] MEDS: amLODIPine 10 MG TAB PO SCH (08:42)
[2019-02-14] MEDS: GABAPENTIN 300 MG CAP PO SCH ×2 (08:42→21:07)
[2019-02-14] MEDS: FLUTICASONE PROP 0.05% NASAL SPRAY 16 GM (FLONASE) NARES SCH ×2 (08:42→21:06)
[2019-02-14] MEDS: OXcarbazepine 300 MG TAB PO SCH ×2 (08:42→21:10)
[2019-02-14] MEDS: SIMETHICONE 80 MG CHEW TAB PO SCH ×3 (08:42→21:09)
[2019-02-14] MEDS: BENZTROPINE 1 MG TAB PO SCH ×2 (08:42→21:07)
[2019-02-14] MEDS: LISINOPRIL 20 MG TAB PO SCH (08:43)
--- NOTE | 2019-02-14 09:14 | MHIPNPDOC ---
[facility] Progress Note Progress Note DATE OF SERVICE: 02/14/19 HISTORY: Patient is a 48 -year-old , male, with psych history of bipolar 1 disorder, multiple admission [facility] and elsewhere ([facility] in the past, recently d/c [facility] 01/26/19 for winsome with psychosis who who was to [facility] by [facility] representatives for winsome, disorganization, agitation,hyperverbal speech, tangential thoughts, restlessness due to med noncompliance since d/c from [facility] last week due to him failing to pick them up. Pt appeared manic and disorganized with nonsensical and rambling speech per [facility] when evaluated there. Pt is a poor historian so history gathered from previous records. Pt seen and very manic, hyperverbal, somewhat agitated, restless, loud, demanding this am arguing with unit techs about needing a long sleeve shirt b/c he was cold. States his meds are at [facility] now and stated something about a mix up with him getting that right after d/c. Pt very tangential, with pressured/rambling speech, goal-directed thoughts, very disorganized talking about having a "hot date with a girl," walking around the unit with his pants pulled up "like Daniel Perkins" b/c it's funny, eating 4 breakfast this am so he gave me his yogurt and stated "Maybe there will be a yogurt for you tomorrow," among other rambling and disorganized thoughts. Stated "you'd be wound up to if you hadn't slept for 3 days." Very hard to redirect toward ending interview as keeps rambling on. Will restart previous meds last d/c on plus zyprexa 10mg tid for winsome and one time order thorazine 100mg and ativan 2mg po this am to get pt to sleep and improve winsome. VITAL SIGNS: See below. NEW TEST RESULTS: See below. AST/ALT/Alk Phos all wnl, trileptal level 15 (therapeutic) CURRENT MEDICATIONS: See below. MENTAL STATUS EXAMINATION: General Appearance: well groomed, appears stated age, own clothing Build: overweight Demeanor: less preoccupied, other (more manic) Eye Contact: fair Activity: less hyperactive Behavior: cooperative, less hyperactive and restless Speech: less rapid and pressured, normal volume Mood: less euphoric, less elevated, less hypomanic Mood "ok" Affect: less labile, disorganized, other (manic) Thought Process: concrete. less circumferential, racing Thought Content (Delusions): less grandiose, denies SI, HI, AVH Thought Content (Other): less preoccupied, obsessional, ideas of reference Thought Content (Aggressive): none reported Perception (Hallucinations): none reported Perception (Other): none reported Cognition (Impairment of): attention/concentration, ability to abstract Cognition(Intelligence Est.): borderline Oriented: Awake, Alert, Oriented times three Insight: poor Judgment: Poor Psychosis: improving DIAGNOSES: Bipolar disorder, mixed episode ASSESSMENT:Pt seen in office this morning stating he slept better last night after being awake thru out the day w/o taking a nap. Encouraged to do that daily for better sleep at night. Abruptly started talking about speaking with his sister on the phone and is nephews then stopped abruptly. Slightly odd. 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 He is less manic, euphoric, circumferential and hyperverbal today with increase in nightly zyprexa which appears beneficial. Encourage to eat more healthy food if he has an increase in appetite secondary zyprexa to limit weight gain. He is less goal directed and grandiose in his thoughts. States he's sleeping better when with increase in trazodone and benadryl. He denies SI/HI, hallucinations. Feels safe here. MANAGEMENT PLAN: continue plan. trileptal 600mg bid zyprexa 15mg qhs zyprexa 10mg tid seroquel 200mg qhs trazodone 100mg qhs prn insomnia. TIME SPENT: 30 minutes. Vital Signs Vital Signs Date Time Temp Pulse Resp B/P (MAP) Pulse Ox O2 Delivery O2 Flow Rate FiO2 02/14/19 08:42 102 128/73 02/14/19 06:39 96.9 14 Room Air Laboratory Data 24H Labs Laboratory Tests 2 02/13/19 11:59: Bedside Glucose (Misc Panel) 113H 02/13/19 17:08: Bedside Glucose (Misc Panel) 132H 02/13/19 20:34: Bedside Glucose (Misc Panel) 135H 02/14/19 06:18: Bedside Glucose (Misc Panel) 108H Current Medications Current Medications Medications (Trade) Dose Ordered Sig/Kailey Route PRN Reason Start Time Stop Time Status Last Admin Dose Admin Acetaminophen (Tylenol Tab) 650 mg Q6HP PRN PO HEADACHE or DISCOMFORT 01/31/19 15:00 02/11/19 16:29 Al Hydrox/Mg Hydrox/Simethicone (Mylanta) 30 ml Q4HP PRN PO HEARTBURN/INDIGESTION 01/31/19 15:00 Amlodipine Besylate (Norvasc) 10 mg DAILY PO 02/01/19 09:00 02/14/19 08:42 Atorvastatin Calcium (Lipitor) 20 mg QHS PO 01/31/19 21:00 02/13/19 20:36 Benztropine Mesylate (Cogentin) 1 mg BID PO 02/10/19 21:00 02/14/19 08:42 Benztropine Mesylate (Cogentin) 1 mg DAILY PO 02/01/19 09:00 02/10/19 22:48 DC 02/10/19 08:16 Cetylpyridinium Chloride (Cepacol) 1 pranav Q2HP PRN PO COUGH 02/01/19 20:00 02/12/19 08:31 Dextrose (Dextrose 50%) 25 ml ASDIRECTED PRN IV SEE LABEL COMMENTS 01/31/19 15:00 Dimethicone (Vaniply) 0.3 dose Q6H PRN TOP DISCOMFORT 02/10/19 11:00 02/11/19 10:01 Diphenhydramine HCl (Benadryl) 50 mg QHS PO 02/13/19 21:00 02/13/19 21:42 Docusate Sodium (Colace) 100 mg BID PO 01/31/19 21:00 02/14/19 08:42 Fluticasone Propionate (Flonase 0.05% Nasal [place]) 1 spray BID NARES 02/05/19 21:00 02/14/19 08:42 Gabapentin (Neurontin) 600 mg BID PO 02/01/19 09:00 02/14/19 08:42 Glucagon (Glucagon) 1 mg ASDIRECTED PRN SC SEE LABEL COMMENTS 01/31/19 15:00 Glucose (Glucose) 16 GM ASDIRECTED PRN PO SEE LABEL COMMENTS 01/31/19 15:00 Home Med (Med Rec Complete!) ASDIRECTED XX 01/30/19 19:00 01/30/19 18:54 DC Hydrochlorothiazide (Hydrodiuril) 12.5 mg QAM PO 02/10/19 09:00 02/14/19 08:42 Insulin Human Lispro (HumaLOG INSULIN) 4 units STAT STAT SC 01/31/19 11:22 01/31/19 11:23 DC 01/31/19 11:41 Insulin Human Lispro (HumaLOG INSULIN) See Protocol Table AC SC 01/31/19 17:30 02/14/19 06:56 Insulin Human Lispro (HumaLOG INSULIN) See Protocol Table QHS SC 01/31/19 21:00 Levothyroxine Sodium (Synthroid) 100 mcg DAILY@0600 PO 02/01/19 06:00 02/14/19 06:14 Lisinopril (Prinivil) 20 mg DAILY PO 02/01/19 09:00 02/14/19 08:43 Lorazepam (Ativan) 1 mg Q6H PRN PO ANXIETY/AGITATION 02/08/19 14:15 02/11/19 06:01 Lorazepam (Ativan) 2 mg Q4HP PRN PO ANXIETY/AGITATION 01/31/19 15:00 01/31/19 17:13 DC Lorazepam (Ativan) 2 mg Q4HP PRN PO ANXIETY/AGITATION 01/31/19 17:13 02/08/19 14:04 DC 02/08/19 04:59 Lorazepam (Ativan) 2 mg STAT STAT PO 01/31/19 07:19 01/31/19 07:21 DC 01/31/19 07:27 Magnesium Hydroxide (Milk Of Magnesia) 30 ml DAILYPRN PRN PO CONSTIPATION 01/31/19 15:00 02/11/19 17:24 Metformin HCl (Glucophage) 1,000 mg BID@08,18 PO 02/01/19 18:00 02/14/19 07:33 Mirtazapine (Remeron) 15 mg QHSP PRN PO INSOMNIA 02/10/19 22:45 02/12/19 21:00 DC 02/11/19 23:19 Miscellaneous (Unresolved Clarification Entry) SEE LABEL COMMENTS DAILY XX 02/06/19 09:00 02/07/19 06:47 DC Miscellaneous (Unresolved Clarification Entry) SEE LABEL COMMENTS DAILY XX 02/07/19 09:00 02/07/19 14:14 DC Multi-Ingredient Lotion (Loreto Lotion) 1 dose QID TOP 02/10/19 13:00 02/14/19 07:35 Non-Formulary Medication ( See Comment Field Below ) SEE COMMENTS SECTION 1T@10 ID 02/12/19 10:00 02/13/19 09:59 UNV Non-Formulary Medication ( See Comment Field Below ) SEE LABEL COMMENTS DAILY XX 02/10/19 09:00 02/13/19 15:01 DC Olanzapine (ZyPREXA) 10 mg TID PO 01/31/19 21:00 02/14/19 08:42 Olanzapine (ZyPREXA) 15 mg QHS PO 02/01/19 21:00 02/08/19 11:52 DC 02/06/19 21:12 Olanzapine (ZyPREXA) 20 mg QHS PO 02/08/19 21:00 02/13/19 20:38 Oxcarbazepine (Trileptal) 600 mg BID PO 01/31/19 21:00 02/14/19 08:42 Paliperidone Palmitate (Invega Sustenna) 234 mg Q30D IM 02/26/19 09:00 Phenol (Chloraseptic [place]) 1 spray QIDP PRN MT SORE THROAT 02/01/19 20:00 02/12/19 03:54 Pseudoephedrine HCl (Sudafed) 30 mg BIDP PRN PO NASAL CONGESTION 02/02/19 23:15 02/11/19 09:59 Quetiapine Fumarate (SEROquel) 200 mg QHS PO 01/31/19 21:00 02/13/19 20:40 Simethicone (Mylicon) 80 mg TID PO 02/05/19 16:00 02/14/19 08:42 Trazodone HCl (Desyrel) 50 mg QHSP PRN PO INSOMNIA 01/31/19 15:00 02/07/19 09:00 DC 02/06/19 21:12 Trazodone HCl (Desyrel) 100 mg QHSP PRN PO INSOMNIA 02/07/19 09:00 02/13/19 21:42 Allergies Coded Allergies: Penicillins (Verified Allergy, Intermediate, rash, 01/02/19) divalproex sodium (Verified Allergy, Unknown, 01/02/19) CLAIR STEIN DO Feb 14, 2019 9:13 am
[2019-02-14 16:12] VITALS: BP 138/78
[2019-02-14] MEDS: ATORVASTATIN 20 MG TAB PO SCH (21:07)
[2019-02-14] MEDS: diphenhydrAMINE 50 MG CAP PO SCH (21:07)
[2019-02-14] MEDS: QUEtiapine FUMARATE 200 MG TAB PO SCH (21:10)
[2019-02-14] MEDS: traZODone 100 MG TAB PO PRN (21:10)
[2019-02-15] MEDS: LEVOTHYROXINE 100MCG TABLET (0.1MG) PO SCH (06:30)
[2019-02-15 06:37] VITALS: BP 135/83
[2019-02-15] MEDS: HumaLOG INSULIN (NovoLOG) PER UNIT SC SCH ×4 (06:44→22:05)
[2019-02-15] MEDS: FLUTICASONE PROP 0.05% NASAL SPRAY 16 GM (FLONASE) NARES SCH ×2 (08:22→22:13)
[2019-02-15] MEDS: GABAPENTIN 300 MG CAP PO SCH ×2 (08:23→22:14)
[2019-02-15] MEDS: BENZTROPINE 1 MG TAB PO SCH ×2 (08:23→22:14)
[2019-02-15] MEDS: OXcarbazepine 300 MG TAB PO SCH ×2 (08:23→22:13)
[2019-02-15] MEDS: amLODIPine 10 MG TAB PO SCH (08:23)
[2019-02-15] MEDS: DOCUSATE SODIUM 100 MG CAP PO SCH ×2 (08:23→22:14)
[2019-02-15] MEDS: SIMETHICONE 80 MG CHEW TAB PO SCH ×3 (08:23→22:13)
[2019-02-15] MEDS: THERAPEUTIC BATH LOTION 240 ML BTL TOP SCH ×5 (08:23→22:17)
[2019-02-15] MEDS: metFORMIN (GLUCOPHAGE) 1000 MG TABLET PO SCH ×2 (08:23→17:20)
[2019-02-15] MEDS: OLANZapine 10 MG TAB PO SCH ×4 (08:24→22:13)
[2019-02-15] MEDS: hydroCHLOROthiazide 12.5 MG CAPSULE PO SCH (08:24)
[2019-02-15] MEDS: LISINOPRIL 20 MG TAB PO SCH (08:24)
--- NOTE | 2019-02-15 08:56 | MHIPNPDOC ---
[facility] Progress Note Progress Note DATE OF SERVICE: 02/15/19 HISTORY: Patient is a 48 -year-old , male, with psych history of bipolar 1 disorder, multiple admission [facility] and elsewhere ([facility] [place] in the past, recently d/c [facility] 01/26/19 for winsome with psychosis who who was to [facility] by [facility] representatives for winsome, disorganization, agitation,hyperverbal speech, tangential thoughts, restlessness due to med noncompliance since d/c from [facility] last week due to him failing to pick them up. Pt appeared manic and disorganized with nonsensical and rambling speech per [facility] when evaluated there. Pt is a poor historian so history gathered from previous records. Pt seen and very manic, hyperverbal, somewhat agitated, restless, loud, demanding this am arguing with unit techs about needing a long sleeve shirt b/c he was cold. States his meds are at [facility] now and stated something about a mix up with him getting that right after d/c. Pt very tangential, with pressured/rambling speech, goal-directed thoughts, very disorganized talking about having a "hot date with a girl," walking around the unit with his pants pulled up "like Daniel Perkins" b/c it's funny, eating 4 breakfast this am so he gave me his yogurt and stated "Maybe there will be a yogurt for you tomorrow," among other rambling and disorganized thoughts. Stated "you'd be wound up to if you hadn't slept for 3 days." Very hard to redirect toward ending interview as keeps rambling on. Will restart previous meds last d/c on plus zyprexa 10mg tid for winsome and one time order thorazine 100mg and ativan 2mg po this am to get pt to sleep and improve winsome. VITAL SIGNS: See below. NEW TEST RESULTS: See below. AST/ALT/Alk Phos all wnl, trileptal level 15 (therapeutic) CURRENT MEDICATIONS: See below. MENTAL STATUS EXAMINATION: General Appearance: well groomed, appears stated age, own clothing Build: overweight Demeanor: more calm Eye Contact: fair Activity: less hyperactive Behavior: cooperative, less hyperactive and restless Speech: more reg rate/rhythm, normal volume Mood: more euthymic and appropriate Mood "ok" Affect: more euthymic and appropriate Thought Process: concrete. more linear Thought Content (Delusions): minor grandiose thoughts, denies SI, HI, AVH Thought Content (Other): minor ideas of reference Thought Content (Aggressive): none reported Perception (Hallucinations): none reported Perception (Other): none reported Cognition (Impairment of): attention/concentration, ability to abstract improvi ng Cognition(Intelligence Est.): borderline Oriented: Awake, Alert, Oriented times three Insight: poor Judgment: Poor Psychosis: improving DIAGNOSES: Bipolar disorder, mixed episode ASSESSMENT:Pt seen in office this morning stating he slept well last night having gone to bed at 9:30pm, waking up at 4am and going back to bed, getting up for the day around 6am. He denies symptoms of winsome and appears to be more euthymic with reg speech. His attention appears to be improved when seen. Asked pt why he has a problem being compliant on his meds when he leaves and stated his prescriptions come from two different pharmacy's and that he prefers [facility] in [place] as they send him his meds on Wednesdays. This is not exactly true as I filled his prescriptions for his meds to one pharmacy, [facility] in [place] should he should have received his psych meds and started taking as directed the last time he was seen but failed to causing readmission for severe winsome (the 2nd time). Will try to make sure pt d/c on Wednesday so that he meds are filled the same day d/c at his home waiting for him if he is sent home rather than [facility] for intermediate care. 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 He is less manic, euphoric, circumferential and hyperverbal today with increase in nightly zyprexa which appears beneficial. Encourage to eat more healthy food if he has an increase in appetite secondary zyprexa to limit weight gain. He is less goal directed and grandiose in his thoughts. Is sleeping better when with increase in trazodone and benadryl. He denies SI/HI, hallucinations. Feels safe here. MANAGEMENT PLAN: continue plan. trileptal 600mg bid zyprexa 15mg qhs zyprexa 10mg tid seroquel 200mg qhs trazodone 100mg qhs prn insomnia. TIME SPENT: 30 minutes. Vital Signs Vital Signs Date Time Temp Pulse Resp B/P (MAP) Pulse Ox O2 Delivery O2 Flow Rate FiO2 02/15/19 08:23 98 138/77 02/15/19 06:37 98.4 16 02/14/19 06:39 Room Air Laboratory Data 24H Labs Laboratory Tests 2 02/14/19 11:56: Bedside Glucose (Misc Panel) 145H 02/14/19 17:16: Bedside Glucose (Misc Panel) 128H 02/14/19 21:05: Bedside Glucose (Misc Panel) 115H 02/15/19 06:32: Bedside Glucose (Misc Panel) 117H Current Medications Current Medications Medications (Trade) Dose Ordered Sig/Kailey Route PRN Reason Start Time Stop Time Status Last Admin Dose Admin Acetaminophen (Tylenol Tab) 650 mg Q6HP PRN PO HEADACHE or DISCOMFORT 01/31/19 15:00 02/11/19 16:29 Al Hydrox/Mg Hydrox/Simethicone (Mylanta) 30 ml Q4HP PRN PO HEARTBURN/INDIGESTION 01/31/19 15:00 Amlodipine Besylate (Norvasc) 10 mg DAILY PO 02/01/19 09:00 02/15/19 08:23 Atorvastatin Calcium (Lipitor) 20 mg QHS PO 01/31/19 21:00 02/14/19 21:07 Benztropine Mesylate (Cogentin) 1 mg BID PO 02/10/19 21:00 02/15/19 08:23 Benztropine Mesylate (Cogentin) 1 mg DAILY PO 02/01/19 09:00 02/10/19 22:48 DC 02/10/19 08:16 Cetylpyridinium Chloride (Cepacol) 1 pranav Q2HP PRN PO COUGH 02/01/19 20:00 02/12/19 08:31 Dextrose (Dextrose 50%) 25 ml ASDIRECTED PRN IV SEE LABEL COMMENTS 01/31/19 15:00 Dimethicone (Vaniply) 0.3 dose Q6H PRN TOP DISCOMFORT 02/10/19 11:00 02/11/19 10:01 Diphenhydramine HCl (Benadryl) 50 mg QHS PO 02/13/19 21:00 02/14/19 21:07 Docusate Sodium (Colace) 100 mg BID PO 01/31/19 21:00 02/15/19 08:23 Fluticasone Propionate (Flonase 0.05% Nasal [place]) 1 spray BID NARES 02/05/19 21:00 02/15/19 08:22 Gabapentin (Neurontin) 600 mg BID PO 02/01/19 09:00 02/15/19 08:23 Glucagon (Glucagon) 1 mg ASDIRECTED PRN SC SEE LABEL COMMENTS 01/31/19 15:00 Glucose (Glucose) 16 GM ASDIRECTED PRN PO SEE LABEL COMMENTS 01/31/19 15:00 Home Med (Med Rec Complete!) ASDIRECTED XX 01/30/19 19:00 01/30/19 18:54 DC Hydrochlorothiazide (Hydrodiuril) 12.5 mg QAM PO 02/10/19 09:00 02/15/19 08:24 Insulin Human Lispro (HumaLOG INSULIN) 4 units STAT STAT SC 01/31/19 11:22 01/31/19 11:23 DC 01/31/19 11:41 Insulin Human Lispro (HumaLOG INSULIN) See Protocol Table AC SC 01/31/19 17:30 02/15/19 06:44 Insulin Human Lispro (HumaLOG INSULIN) See Protocol Table QHS SC 01/31/19 21:00 Levothyroxine Sodium (Synthroid) 100 mcg DAILY@0600 PO 02/01/19 06:00 02/15/19 06:30 Lisinopril (Prinivil) 20 mg DAILY PO 02/01/19 09:00 02/15/19 08:24 Lorazepam (Ativan) 1 mg Q6H PRN PO ANXIETY/AGITATION 02/08/19 14:15 02/11/19 06:01 Lorazepam (Ativan) 2 mg Q4HP PRN PO ANXIETY/AGITATION 01/31/19 15:00 01/31/19 17:13 DC Lorazepam (Ativan) 2 mg Q4HP PRN PO ANXIETY/AGITATION 01/31/19 17:13 02/08/19 14:04 DC 02/08/19 04:59 Lorazepam (Ativan) 2 mg STAT STAT PO 01/31/19 07:19 01/31/19 07:21 DC 01/31/19 07:27 Magnesium Hydroxide (Milk Of Magnesia) 30 ml DAILYPRN PRN PO CONSTIPATION 01/31/19 15:00 02/11/19 17:24 Metformin HCl (Glucophage) 1,000 mg BID@08,18 PO 02/01/19 18:00 02/15/19 08:23 Mirtazapine (Remeron) 15 mg QHSP PRN PO INSOMNIA 02/10/19 22:45 02/12/19 21:00 DC 02/11/19 23:19 Miscellaneous (Unresolved Clarification Entry) SEE LABEL COMMENTS DAILY XX 02/06/19 09:00 02/07/19 06:47 DC Miscellaneous (Unresolved Clarification Entry) SEE LABEL COMMENTS DAILY XX 02/07/19 09:00 02/07/19 14:14 DC Multi-Ingredient Lotion (Loreto Lotion) 1 dose QID TOP 02/10/19 13:00 02/15/19 08:23 Non-Formulary Medication ( See Comment Field Below ) SEE COMMENTS SECTION 1T@10 ID 02/12/19 10:00 02/13/19 09:59 UNV Non-Formulary Medication ( See Comment Field Below ) SEE LABEL COMMENTS DAILY XX 02/10/19 09:00 02/13/19 15:01 DC Olanzapine (ZyPREXA) 10 mg TID PO 01/31/19 21:00 02/15/19 08:24 Olanzapine (ZyPREXA) 15 mg QHS PO 02/01/19 21:00 02/08/19 11:52 DC 02/06/19 21:12 Olanzapine (ZyPREXA) 20 mg QHS PO 02/08/19 21:00 02/14/19 21:08 Oxcarbazepine (Trileptal) 600 mg BID PO 01/31/19 21:00 02/15/19 08:23 Paliperidone Palmitate (Invega Sustenna) 234 mg Q30D IM 02/26/19 09:00 Phenol (Chloraseptic [place]) 1 spray QIDP PRN MT SORE THROAT 02/01/19 20:00 02/12/19 03:54 Pseudoephedrine HCl (Sudafed) 30 mg BIDP PRN PO NASAL CONGESTION 02/02/19 23:15 02/11/19 09:59 Quetiapine Fumarate (SEROquel) 200 mg QHS PO 01/31/19 21:00 02/14/19 21:10 Simethicone (Mylicon) 80 mg TID PO 02/05/19 16:00 02/15/19 08:23 Trazodone HCl (Desyrel) 50 mg QHSP PRN PO INSOMNIA 01/31/19 15:00 02/07/19 09:00 DC 02/06/19 21:12 Trazodone HCl (Desyrel) 100 mg QHSP PRN PO INSOMNIA 02/07/19 09:00 02/14/19 21:10 Allergies Coded Allergies: Penicillins (Verified Allergy, Intermediate, rash, 01/02/19) divalproex sodium (Verified Allergy, Unknown, 01/02/19) CLAIR STEIN DO Feb 15, 2019 8:56 am
[2019-02-15 16:55] VITALS: BP 140/82
[2019-02-15] MEDS: QUEtiapine FUMARATE 200 MG TAB PO SCH (22:13)
[2019-02-15] MEDS: ATORVASTATIN 20 MG TAB PO SCH (22:13)
[2019-02-15] MEDS: diphenhydrAMINE 50 MG CAP PO SCH (22:14)
[2019-02-15] MEDS: traZODone 100 MG TAB PO PRN (22:14)
[2019-02-16] MEDS: LEVOTHYROXINE 100MCG TABLET (0.1MG) PO SCH (05:29)
[2019-02-16] MEDS: HumaLOG INSULIN (NovoLOG) PER UNIT SC SCH ×4 (05:36→21:00)
[2019-02-16 06:22] VITALS: BP 154/85
[2019-02-16] MEDS: metFORMIN (GLUCOPHAGE) 1000 MG TABLET PO SCH ×2 (07:49→17:54)
[2019-02-16] MEDS: THERAPEUTIC BATH LOTION 240 ML BTL TOP SCH ×4 (09:00→21:00)
--- NOTE | 2019-02-16 09:18 | MHIPNPDOC ---
[facility] Progress Note Progress Note DATE OF SERVICE: 02/16/19 HISTORY: Patient is a 48 -year-old , male, with psych history of bipolar 1 disorder, multiple admission [facility] and elsewhere ([facility]) in the past, recently d/c [facility] 01/26/19 for winsome with psychosis who who was to [facility] ED by [facility] representatives for winsome, disorganization, agitation,hyperverbal speech, tangential thoughts, restlessness due to med noncompliance since d/c from [facility] last week due to him failing to pick them up. Pt appeared manic and disorganized with nonsensical and rambling speech per [facility] ED when evaluated there. Pt is a poor historian so history gathered from previous records. Pt seen and very manic, hyperverbal, somewhat agitated, restless, loud, demanding this am arguing with unit techs about needing a long sleeve shirt b/c he was cold. States his meds are at [facility] now and stated something about a mix up with him getting that right after d/c. Pt very tangential, with pressured/rambling speech, goal-directed thoughts, very disorganized talking about having a "hot date with a girl," walking around the unit with his pants pulled up "like Daniel Perkins" b/c it's funny, eating 4 breakfast this am so he gave me his yogurt and stated "Maybe there will be a yogurt for you tomorrow," among other rambling and disorganized thoughts. Stated "you'd be wound up to if you hadn't slept for 3 days." Very hard to redirect toward ending interview as keeps rambling on. Will restart previous meds last d/c on plus zyprexa 10mg tid for winsome and one time order thorazine 100mg and ativan 2mg po this am to get pt to sleep and improve winsome. VITAL SIGNS: See below. NEW TEST RESULTS: See below. AST/ALT/Alk Phos all wnl, trileptal level 15 (therapeutic) CURRENT MEDICATIONS: See below. MENTAL STATUS EXAMINATION: General Appearance: disheveled, appears stated age, own clothing Build: overweight Demeanor: lacks interest and motivation, cooperative Eye Contact: fair Activity: slow Behavior: cooperative, psychomotor retardation Speech: limited, non-spontaneous Mood: depressed, flat Mood "ok" Affect: depressed, flat, anhedonic Thought Process: concrete. linear Thought Content (Delusions): denies SI, HI, AVH Thought Content (Other): none reported Thought Content (Aggressive): none reported Perception (Hallucinations): none reported Perception (Other): none reported Cognition (Impairment of): attention/concentration Cognition(Intelligence Est.): borderline Oriented: Awake, Alert, Oriented times three Insight: poor Judgment: Poor Psychosis: none reported DIAGNOSES: Bipolar disorder, mixed episode ASSESSMENT:Pt seen in office this morning disheveled stating "I'm sleeping a lot." He appears to be entering a depressive state and asked pt if he felt he was and stated yes. Told pt will decrease his daytime zyprexa to 5mg tid to reduce overall fatigue especially during the day to see if that aids his depressive state. After discussing meds pt just up and left most likely going back to bed. Will encourage pt to try to stay up during the day to prevent isolation and amotivation. His speech is limited on non-spontaneous. 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 He is depressed and flat today, appears to lack interest. Encourage to eat more healthy food if he has an increase in appetite secondary zyprexa to limit weight gain. Is sleeping better when with increase in trazodone and benadryl. He denies SI/HI, hallucinations. Feels safe here. MANAGEMENT PLAN: continue plan. decrease day time zyprexa to 5mg tid trileptal 600mg bid zyprexa 15mg qhs zyprexa 5mg tid seroquel 200mg qhs trazodone 100mg qhs prn insomnia. TIME SPENT: 30 minutes. Vital Signs Vital Signs Date Time Temp Pulse Resp B/P (MAP) Pulse Ox O2 Delivery O2 Flow Rate FiO2 02/16/19 06:22 98.4 95 16 154/85 (108) 02/14/19 06:39 Room Air Laboratory Data 24H Labs Laboratory Tests 2 02/15/19 12:07: Bedside Glucose (Misc Panel) 101 02/15/19 17:17: Bedside Glucose (Misc Panel) 141H 02/15/19 21:58: Bedside Glucose (Misc Panel) 95 02/16/19 05:34: Bedside Glucose (Misc Panel) 106H Current Medications Current Medications Medications (Trade) Dose Ordered Sig/Kailey Route PRN Reason Start Time Stop Time Status Last Admin Dose Admin Acetaminophen (Tylenol Tab) 650 mg Q6HP PRN PO HEADACHE or DISCOMFORT 01/31/19 15:00 02/11/19 16:29 Al Hydrox/Mg Hydrox/Simethicone (Mylanta) 30 ml Q4HP PRN PO HEARTBURN/INDIGESTION 01/31/19 15:00 Amlodipine Besylate (Norvasc) 10 mg DAILY PO 02/01/19 09:00 02/15/19 08:23 Atorvastatin Calcium (Lipitor) 20 mg QHS PO 01/31/19 21:00 02/15/19 22:13 Benztropine Mesylate (Cogentin) 1 mg BID PO 02/10/19 21:00 02/15/19 22:14 Benztropine Mesylate (Cogentin) 1 mg DAILY PO 02/01/19 09:00 02/10/19 22:48 DC 02/10/19 08:16 Cetylpyridinium Chloride (Cepacol) 1 pranav Q2HP PRN PO COUGH 02/01/19 20:00 02/12/19 08:31 Dextrose (Dextrose 50%) 25 ml ASDIRECTED PRN IV SEE LABEL COMMENTS 01/31/19 15:00 Dimethicone (Vaniply) 0.3 dose Q6H PRN TOP DISCOMFORT 02/10/19 11:00 02/11/19 10:01 Diphenhydramine HCl (Benadryl) 50 mg QHS PO 02/13/19 21:00 02/15/19 22:14 Docusate Sodium (Colace) 100 mg BID PO 01/31/19 21:00 02/15/19 22:14 Fluticasone Propionate (Flonase 0.05% Nasal [place]) 1 spray BID NARES 02/05/19 21:00 02/15/19 22:13 Gabapentin (Neurontin) 600 mg BID PO 02/01/19 09:00 02/15/19 22:14 Glucagon (Glucagon) 1 mg ASDIRECTED PRN SC SEE LABEL COMMENTS 01/31/19 15:00 Glucose (Glucose) 16 GM ASDIRECTED PRN PO SEE LABEL COMMENTS 01/31/19 15:00 Home Med (Med Rec Complete!) ASDIRECTED XX 01/30/19 19:00 01/30/19 18:54 DC Hydrochlorothiazide (Hydrodiuril) 12.5 mg QAM PO 02/10/19 09:00 02/15/19 08:24 Insulin Human Lispro (HumaLOG INSULIN) 4 units STAT STAT SC 01/31/19 11:22 01/31/19 11:23 DC 01/31/19 11:41 Insulin Human Lispro (HumaLOG INSULIN) See Protocol Table AC SC 01/31/19 17:30 02/16/19 05:36 Insulin Human Lispro (HumaLOG INSULIN) See Protocol Table QHS SC 01/31/19 21:00 Levothyroxine Sodium (Synthroid) 100 mcg DAILY@0600 PO 02/01/19 06:00 02/16/19 05:29 Lisinopril (Prinivil) 20 mg DAILY PO 02/01/19 09:00 02/15/19 08:24 Lorazepam (Ativan) 1 mg Q6H PRN PO ANXIETY/AGITATION 02/08/19 14:15 02/11/19 06:01 Lorazepam (Ativan) 2 mg Q4HP PRN PO ANXIETY/AGITATION 01/31/19 15:00 01/31/19 17:13 DC Lorazepam (Ativan) 2 mg Q4HP PRN PO ANXIETY/AGITATION 01/31/19 17:13 02/08/19 14:04 DC 02/08/19 04:59 Lorazepam (Ativan) 2 mg STAT STAT PO 01/31/19 07:19 01/31/19 07:21 DC 01/31/19 07:27 Magnesium Hydroxide (Milk Of Magnesia) 30 ml DAILYPRN PRN PO CONSTIPATION 01/31/19 15:00 02/11/19 17:24 Metformin HCl (Glucophage) 1,000 mg BID@08,18 PO 02/01/19 18:00 02/16/19 07:49 Mirtazapine (Remeron) 15 mg QHSP PRN PO INSOMNIA 02/10/19 22:45 02/12/19 21:00 DC 02/11/19 23:19 Miscellaneous (Unresolved Clarification Entry) SEE LABEL COMMENTS DAILY XX 02/06/19 09:00 02/07/19 06:47 DC Miscellaneous (Unresolved Clarification Entry) SEE LABEL COMMENTS DAILY XX 02/07/19 09:00 02/07/19 14:14 DC Multi-Ingredient Lotion (Loreto Lotion) 1 dose QID TOP 02/10/19 13:00 02/15/19 08:23 Non-Formulary Medication ( See Comment Field Below ) SEE COMMENTS SECTION 1T@10 ID 02/12/19 10:00 02/13/19 09:59 UNV Non-Formulary Medication ( See Comment Field Below ) SEE LABEL COMMENTS DAILY XX 02/10/19 09:00 02/13/19 15:01 DC Olanzapine (ZyPREXA) 10 mg TID PO 01/31/19 21:00 02/15/19 22:13 Olanzapine (ZyPREXA) 15 mg QHS PO 02/01/19 21:00 02/08/19 11:52 DC 02/06/19 21:12 Olanzapine (ZyPREXA) 20 mg QHS PO 02/08/19 21:00 02/15/19 22:13 Oxcarbazepine (Trileptal) 600 mg BID PO 01/31/19 21:00 02/15/19 22:13 Paliperidone Palmitate (Invega Sustenna) 234 mg Q30D IM 02/26/19 09:00 Phenol (Chloraseptic [place]) 1 spray QIDP PRN MT SORE THROAT 02/01/19 20:00 02/12/19 03:54 Pseudoephedrine HCl (Sudafed) 30 mg BIDP PRN PO NASAL CONGESTION 02/02/19 23:15 02/11/19 09:59 Quetiapine Fumarate (SEROquel) 200 mg QHS PO 01/31/19 21:00 02/15/19 22:13 Simethicone (Mylicon) 80 mg TID PO 02/05/19 16:00 02/15/19 22:13 Trazodone HCl (Desyrel) 50 mg QHSP PRN PO INSOMNIA 01/31/19 15:00 02/07/19 09:00 DC 02/06/19 21:12 Trazodone HCl (Desyrel) 100 mg QHSP PRN PO INSOMNIA 02/07/19 09:00 02/15/19 22:14 Allergies Coded Allergies: Penicillins (Verified Allergy, Intermediate, rash, 01/02/19) divalproex sodium (Verified Allergy, Unknown, 01/02/19) CLAIR STEIN DO Feb 16, 2019 9:18 am
[2019-02-16] MEDS: OXcarbazepine 300 MG TAB PO SCH ×2 (10:08→21:07)
[2019-02-16] MEDS: BENZTROPINE 1 MG TAB PO SCH ×2 (10:08→21:07)
[2019-02-16] MEDS: DOCUSATE SODIUM 100 MG CAP PO SCH ×2 (10:09→21:07)
[2019-02-16] MEDS: OLANZapine 5 MG TAB PO SCH ×3 (10:09→21:07)
[2019-02-16] MEDS: LISINOPRIL 20 MG TAB PO SCH (10:12)
[2019-02-16] MEDS: GABAPENTIN 300 MG CAP PO SCH ×2 (10:12→21:07)
[2019-02-16] MEDS: amLODIPine 10 MG TAB PO SCH (10:12)
[2019-02-16] MEDS: FLUTICASONE PROP 0.05% NASAL SPRAY 16 GM (FLONASE) NARES SCH ×2 (10:13→21:06)
[2019-02-16] MEDS: hydroCHLOROthiazide 12.5 MG CAPSULE PO SCH (10:13)
[2019-02-16] MEDS: SIMETHICONE 80 MG CHEW TAB PO SCH ×3 (10:13→21:07)
[2019-02-16 18:00] VITALS: BP 130/78
[2019-02-16] MEDS: QUEtiapine FUMARATE 200 MG TAB PO SCH (21:07)
[2019-02-16] MEDS: diphenhydrAMINE 50 MG CAP PO SCH (21:07)
[2019-02-16] MEDS: ATORVASTATIN 20 MG TAB PO SCH (21:07)
[2019-02-16] MEDS: OLANZapine 10 MG TAB PO SCH (21:07)
[2019-02-17] MEDS: LEVOTHYROXINE 100MCG TABLET (0.1MG) PO SCH (05:56)
[2019-02-17 07:03] VITALS: BP 136/79
[2019-02-17] MEDS: HumaLOG INSULIN (NovoLOG) PER UNIT SC SCH ×4 (07:59→21:00)
[2019-02-17] MEDS: metFORMIN (GLUCOPHAGE) 1000 MG TABLET PO SCH ×2 (07:59→17:13)
[2019-02-17] MEDS: BENZTROPINE 1 MG TAB PO SCH ×2 (08:10→21:11)
[2019-02-17] MEDS: FLUTICASONE PROP 0.05% NASAL SPRAY 16 GM (FLONASE) NARES SCH ×2 (08:10→21:10)
[2019-02-17] MEDS: DOCUSATE SODIUM 100 MG CAP PO SCH ×2 (08:10→21:12)
[2019-02-17] MEDS: LISINOPRIL 20 MG TAB PO SCH (08:10)
[2019-02-17] MEDS: amLODIPine 10 MG TAB PO SCH (08:11)
[2019-02-17] MEDS: SIMETHICONE 80 MG CHEW TAB PO SCH ×3 (08:11→21:10)
[2019-02-17] MEDS: hydroCHLOROthiazide 12.5 MG CAPSULE PO SCH (08:11)
[2019-02-17] MEDS: THERAPEUTIC BATH LOTION 240 ML BTL TOP SCH ×4 (09:00→21:00)
[2019-02-17] MEDS: GABAPENTIN 300 MG CAP PO SCH ×2 (09:44→21:11)
[2019-02-17] MEDS: OLANZapine 5 MG TAB PO SCH ×3 (09:44→21:12)
[2019-02-17] MEDS: OXcarbazepine 300 MG TAB PO SCH ×2 (09:44→21:10)
--- NOTE | 2019-02-17 10:30 | MHIPNPDOC ---
[facility] Progress Note Progress Note DATE OF SERVICE: 02/17/19 HISTORY: Patient is a 48 -year-old , male, with psych history of bipolar 1 disorder, multiple admission [facility] and elsewhere ([facility]) in the past, recently d/c [facility] 01/26/19 for winsome with psychosis who who was to [facility] ED by [facility] representatives for winsome, disorganization, agitation,hyperverbal speech, tangential thoughts, restlessness due to med noncompliance since d/c from [facility] last week due to him failing to pick them up. Pt appeared manic and disorganized with nonsensical and rambling speech per [facility] when evaluated there. Pt is a poor historian so history gathered from previous records. Pt seen and very manic, hyperverbal, somewhat agitated, restless, loud, demanding this am arguing with unit techs about needing a long sleeve shirt b/c he was cold. States his meds are at [facility] now and stated something about a mix up with him getting that right after d/c. Pt very tangential, with pressured/rambling speech, goal-directed thoughts, very disorganized talking about having a "hot date with a girl," walking around the unit with his pants pulled up "like Daniel Perkins" b/c it's funny, eating 4 breakfast this am so he gave me his yogurt and stated "Maybe there will be a yogurt for you tomorrow," among other rambling and disorganized thoughts. Stated "you'd be wound up to if you hadn't slept for 3 days." Very hard to redirect toward ending interview as keeps rambling on. Will restart previous meds last d/c on plus zyprexa 10mg tid for winsome and one time order thorazine 100mg and ativan 2mg po this am to get pt to sleep and improve winsome. VITAL SIGNS: See below. NEW TEST RESULTS: See below. AST/ALT/Alk Phos all wnl, trileptal level 15 (therapeutic) CURRENT MEDICATIONS: See below. MENTAL STATUS EXAMINATION: General Appearance: disheveled, appears stated age, own clothing Build: overweight Demeanor: lacks interest and motivation, cooperative Eye Contact: fair Activity: slow Behavior: cooperative, psychomotor retardation Speech: limited, non-spontaneous Mood: depressed, flat Mood "ok" Affect: depressed, flat, anhedonic Thought Process: concrete. linear Thought Content (Delusions): denies SI, HI, AVH Thought Content (Other): none reported Thought Content (Aggressive): none reported Perception (Hallucinations): none reported Perception (Other): none reported Cognition (Impairment of): attention/concentration Cognition(Intelligence Est.): borderline Oriented: Awake, Alert, Oriented times three Insight: poor Judgment: Poor Psychosis: none reported DIAGNOSES: Bipolar disorder, mixed episode ASSESSMENT:Pt seen in office this morning disheveled stating he feels "better" today. Per staff in treatment team pt slept all day and night yesterday but is up this am. Decreased daily zyprexa dose yesterday and appears possibly less fatigued to day but will continue to monitr. Will decrease nightly zyprexa to 10mg qhs for improve overall fatigue. He appears to have entered a depressive state. Will attempt to monitor and adjust meds to get him to euthymic state w/o pt going into a manic state (easily fluctuates between winsome and depression) Will encourage pt to try to stay up during the day to prevent isolation and amotivation. His speech is limited on non-spontaneous. Continues to state he's hopeful he doesn't have to go to [facility] for long-term treatment due to freq rapid readmission due to med noncompliance as states he has a lot of things he wants to do when he goes home. He is depressed and flat today, appears to lack interest. Encourage to eat more healthy food if he has an increase in appetite secondary zyprexa to limit weight gain. Is sleeping better when with increase in trazodone and benadryl. He denies SI/HI, hallucinations. Feels safe here. MANAGEMENT PLAN: continue plan. decrease day time zyprexa qhs to 10mg tid trileptal 600mg bid zyprexa 10mg qhs zyprexa 5mg tid seroquel 200mg qhs trazodone 100mg qhs prn insomnia. TIME SPENT: 30 minutes. Vital Signs Vital Signs Date Time Temp Pulse Resp B/P (MAP) Pulse Ox O2 Delivery O2 Flow Rate FiO2 02/17/19 08:11 100 02/17/19 08:10 135/77 02/17/19 07:03 98.2 14 02/14/19 06:39 Room Air Laboratory Data 24H Labs Laboratory Tests 2 02/16/19 12:21: Bedside Glucose (Misc Panel) 82 02/16/19 16:59: Bedside Glucose (Misc Panel) 129H 02/16/19 21:06: Bedside Glucose (Misc Panel) 98 02/17/19 05:59: Bedside Glucose (Misc Panel) 121H Current Medications Current Medications Medications (Trade) Dose Ordered Sig/Kailey Route PRN Reason Start Time Stop Time Status Last Admin Dose Admin Acetaminophen (Tylenol Tab) 650 mg Q6HP PRN PO HEADACHE or DISCOMFORT 01/31/19 15:00 02/11/19 16:29 Al Hydrox/Mg Hydrox/Simethicone (Mylanta) 30 ml Q4HP PRN PO HEARTBURN/INDIGESTION 01/31/19 15:00 Amlodipine Besylate (Norvasc) 10 mg DAILY PO 02/01/19 09:00 02/17/19 08:11 Atorvastatin Calcium (Lipitor) 20 mg QHS PO 01/31/19 21:00 02/16/19 21:07 Benztropine Mesylate (Cogentin) 1 mg BID PO 02/10/19 21:00 02/17/19 08:10 Benztropine Mesylate (Cogentin) 1 mg DAILY PO 02/01/19 09:00 02/10/19 22:48 DC 02/10/19 08:16 Cetylpyridinium Chloride (Cepacol) 1 pranav Q2HP PRN PO COUGH 02/01/19 20:00 02/12/19 08:31 Dextrose (Dextrose 50%) 25 ml ASDIRECTED PRN IV SEE LABEL COMMENTS 01/31/19 15:00 Dimethicone (Vaniply) 0.3 dose Q6H PRN TOP DISCOMFORT 02/10/19 11:00 02/11/19 10:01 Diphenhydramine HCl (Benadryl) 50 mg QHS PO 02/13/19 21:00 02/16/19 21:07 Docusate Sodium (Colace) 100 mg BID PO 01/31/19 21:00 02/17/19 08:10 Fluticasone Propionate (Flonase 0.05% Nasal [place]) 1 spray BID NARES 02/05/19 21:00 02/17/19 08:10 Gabapentin (Neurontin) 600 mg BID PO 02/01/19 09:00 02/17/19 09:44 Glucagon (Glucagon) 1 mg ASDIRECTED PRN SC SEE LABEL COMMENTS 01/31/19 15:00 Glucose (Glucose) 16 GM ASDIRECTED PRN PO SEE LABEL COMMENTS 01/31/19 15:00 Home Med (Med Rec Complete!) ASDIRECTED XX 01/30/19 19:00 01/30/19 18:54 DC Hydrochlorothiazide (Hydrodiuril) 12.5 mg QAM PO 02/10/19 09:00 02/17/19 08:11 Insulin Human Lispro (HumaLOG INSULIN) 4 units STAT STAT SC 01/31/19 11:22 01/31/19 11:23 DC 01/31/19 11:41 Insulin Human Lispro (HumaLOG INSULIN) See Protocol Table AC SC 01/31/19 17:30 02/17/19 07:59 Insulin Human Lispro (HumaLOG INSULIN) See Protocol Table QHS SC 01/31/19 21:00 Levothyroxine Sodium (Synthroid) 100 mcg DAILY@0600 PO 02/01/19 06:00 02/17/19 05:56 Lisinopril (Prinivil) 20 mg DAILY PO 02/01/19 09:00 02/17/19 08:10 Lorazepam (Ativan) 1 mg Q6H PRN PO ANXIETY/AGITATION 02/08/19 14:15 02/11/19 06:01 Lorazepam (Ativan) 2 mg Q4HP PRN PO ANXIETY/AGITATION 01/31/19 15:00 01/31/19 17:13 DC Lorazepam (Ativan) 2 mg Q4HP PRN PO ANXIETY/AGITATION 01/31/19 17:13 02/08/19 14:04 DC 02/08/19 04:59 Lorazepam (Ativan) 2 mg STAT STAT PO 01/31/19 07:19 01/31/19 07:21 DC 01/31/19 07:27 Magnesium Hydroxide (Milk Of Magnesia) 30 ml DAILYPRN PRN PO CONSTIPATION 01/31/19 15:00 02/11/19 17:24 Metformin HCl (Glucophage) 1,000 mg BID@08,18 PO 02/01/19 18:00 02/17/19 07:59 Mirtazapine (Remeron) 15 mg QHSP PRN PO INSOMNIA 02/10/19 22:45 02/12/19 21:00 DC 02/11/19 23:19 Miscellaneous (Unresolved Clarification Entry) SEE LABEL COMMENTS DAILY XX 02/06/19 09:00 02/07/19 06:47 DC Miscellaneous (Unresolved Clarification Entry) SEE LABEL COMMENTS DAILY XX 02/07/19 09:00 02/07/19 14:14 DC Multi-Ingredient Lotion (Loreto Lotion) 1 dose QID TOP 02/10/19 13:00 02/15/19 08:23 Non-Formulary Medication ( See Comment Field Below ) SEE COMMENTS SECTION 1T@10 ID 02/12/19 10:00 02/13/19 09:59 UNV Non-Formulary Medication ( See Comment Field Below ) SEE LABEL COMMENTS DAILY XX 02/10/19 09:00 02/13/19 15:01 DC Olanzapine (ZyPREXA) 5 mg TID PO 02/16/19 09:00 02/17/19 09:44 Olanzapine (ZyPREXA) 10 mg TID PO 01/31/19 21:00 02/16/19 09:16 DC 02/15/19 22:13 Olanzapine (ZyPREXA) 15 mg QHS PO 02/01/19 21:00 02/08/19 11:52 DC 02/06/19 21:12 Olanzapine (ZyPREXA) 20 mg QHS PO 02/08/19 21:00 02/16/19 21:07 Oxcarbazepine (Trileptal) 600 mg BID PO 01/31/19 21:00 02/17/19 09:44 Paliperidone Palmitate (Invega Sustenna) 234 mg Q30D IM 02/26/19 09:00 Phenol (Chloraseptic [place]) 1 spray QIDP PRN MT SORE THROAT 02/01/19 20:00 02/12/19 03:54 Pseudoephedrine HCl (Sudafed) 30 mg BIDP PRN PO NASAL CONGESTION 02/02/19 23:15 02/11/19 09:59 Quetiapine Fumarate (SEROquel) 200 mg QHS PO 01/31/19 21:00 02/16/19 21:07 Simethicone (Mylicon) 80 mg TID PO 02/05/19 16:00 02/17/19 08:11 Trazodone HCl (Desyrel) 50 mg QHSP PRN PO INSOMNIA 01/31/19 15:00 02/07/19 09:00 DC 02/06/19 21:12 Trazodone HCl (Desyrel) 100 mg QHSP PRN PO INSOMNIA 02/07/19 09:00 02/15/19 22:14 Allergies Coded Allergies: Penicillins (Verified Allergy, Intermediate, rash, 01/02/19) divalproex sodium (Verified Allergy, Unknown, 01/02/19) CLAIR STEIN DO Feb 17, 2019 10:30 am
[2019-02-17 16:09] VITALS: BP 110/59
[2019-02-17] MEDS: QUEtiapine FUMARATE 200 MG TAB PO SCH (21:09)
[2019-02-17] MEDS: ATORVASTATIN 20 MG TAB PO SCH (21:11)
[2019-02-17] MEDS: OLANZapine 10 MG TAB PO SCH (21:12)
[2019-02-17] MEDS: diphenhydrAMINE 50 MG CAP PO SCH (21:12)
[2019-02-18] MEDS: LEVOTHYROXINE 100MCG TABLET (0.1MG) PO SCH (06:18)
[2019-02-18] MEDS: HumaLOG INSULIN (NovoLOG) PER UNIT SC SCH ×4 (06:33→20:33)
[2019-02-18 07:04] VITALS: BP 146/82
[2019-02-18] MEDS: THERAPEUTIC BATH LOTION 240 ML BTL TOP SCH ×4 (08:01→20:36)
[2019-02-18] MEDS: FLUTICASONE PROP 0.05% NASAL SPRAY 16 GM (FLONASE) NARES SCH ×2 (08:04→20:34)
[2019-02-18] MEDS: OXcarbazepine 300 MG TAB PO SCH ×2 (08:04→20:35)
[2019-02-18] MEDS: BENZTROPINE 1 MG TAB PO SCH ×2 (08:04→20:34)
[2019-02-18] MEDS: GABAPENTIN 300 MG CAP PO SCH ×2 (08:04→20:34)
[2019-02-18] MEDS: OLANZapine 5 MG TAB PO SCH ×3 (08:05→20:34)
[2019-02-18] MEDS: DOCUSATE SODIUM 100 MG CAP PO SCH ×2 (08:06→20:34)
[2019-02-18] MEDS: LISINOPRIL 20 MG TAB PO SCH (08:06)
[2019-02-18] MEDS: amLODIPine 10 MG TAB PO SCH (08:06)
[2019-02-18] MEDS: hydroCHLOROthiazide 12.5 MG CAPSULE PO SCH (08:06)
[2019-02-18] MEDS: metFORMIN (GLUCOPHAGE) 1000 MG TABLET PO SCH ×2 (08:06→17:16)
[2019-02-18] MEDS: SIMETHICONE 80 MG CHEW TAB PO SCH ×3 (08:06→20:36)
[2019-02-18 16:13] VITALS: BP 114/60
[2019-02-18] MEDS: QUEtiapine FUMARATE 200 MG TAB PO SCH (20:34)
[2019-02-18] MEDS: OLANZapine 10 MG TAB PO SCH (20:34)
[2019-02-18] MEDS: diphenhydrAMINE 50 MG CAP PO SCH (20:34)
[2019-02-18] MEDS: ATORVASTATIN 20 MG TAB PO SCH (20:34)
[2019-02-19] MEDS: LEVOTHYROXINE 100MCG TABLET (0.1MG) PO SCH (06:14)
[2019-02-19] MEDS: HumaLOG INSULIN (NovoLOG) PER UNIT SC SCH ×4 (06:32→21:00)
[2019-02-19 06:47] VITALS: BP 126/79
[2019-02-19] MEDS: hydroCHLOROthiazide 12.5 MG CAPSULE PO SCH (08:09)
[2019-02-19] MEDS: SIMETHICONE 80 MG CHEW TAB PO SCH ×3 (08:09→21:41)
[2019-02-19] MEDS: DOCUSATE SODIUM 100 MG CAP PO SCH ×2 (08:09→21:41)
[2019-02-19] MEDS: FLUTICASONE PROP 0.05% NASAL SPRAY 16 GM (FLONASE) NARES SCH ×2 (08:09→21:00)
[2019-02-19] MEDS: metFORMIN (GLUCOPHAGE) 1000 MG TABLET PO SCH ×2 (08:09→17:04)
[2019-02-19] MEDS: OXcarbazepine 300 MG TAB PO SCH ×2 (08:09→21:42)
[2019-02-19] MEDS: OLANZapine 5 MG TAB PO SCH ×3 (08:09→21:48)
[2019-02-19] MEDS: GABAPENTIN 300 MG CAP PO SCH ×2 (08:09→21:42)
[2019-02-19] MEDS: BENZTROPINE 1 MG TAB PO SCH ×2 (08:09→21:42)
[2019-02-19] MEDS: amLODIPine 10 MG TAB PO SCH (08:11)
[2019-02-19] MEDS: LISINOPRIL 20 MG TAB PO SCH (08:11)
[2019-02-19] MEDS: THERAPEUTIC BATH LOTION 240 ML BTL TOP SCH ×4 (08:12→21:00)
[2019-02-19 16:27] VITALS: BP 105/69
[2019-02-19] MEDS: QUEtiapine FUMARATE 200 MG TAB PO SCH (21:41)
[2019-02-19] MEDS: diphenhydrAMINE 50 MG CAP PO SCH (21:41)
[2019-02-19] MEDS: ATORVASTATIN 20 MG TAB PO SCH (21:42)
[2019-02-19] MEDS: OLANZapine 10 MG TAB PO SCH (21:42)
[2019-02-19] MEDS: traZODone 100 MG TAB PO PRN (21:42)
[2019-02-20] MEDS: LEVOTHYROXINE 100MCG TABLET (0.1MG) PO SCH (06:25)
[2019-02-20 06:35] VITALS: BP 143/83
[2019-02-20] MEDS: HumaLOG INSULIN (NovoLOG) PER UNIT SC SCH ×4 (06:41→21:00)
[2019-02-20] MEDS: FLUTICASONE PROP 0.05% NASAL SPRAY 16 GM (FLONASE) NARES SCH ×2 (08:05→21:26)
[2019-02-20] MEDS: BENZTROPINE 1 MG TAB PO SCH ×2 (08:05→21:27)
[2019-02-20] MEDS: metFORMIN (GLUCOPHAGE) 1000 MG TABLET PO SCH ×2 (08:05→17:25)
[2019-02-20] MEDS: DOCUSATE SODIUM 100 MG CAP PO SCH ×2 (08:05→21:27)
[2019-02-20] MEDS: GABAPENTIN 300 MG CAP PO SCH ×2 (08:05→21:27)
[2019-02-20] MEDS: OXcarbazepine 300 MG TAB PO SCH ×2 (08:05→21:27)
[2019-02-20] MEDS: OLANZapine 5 MG TAB PO SCH ×3 (08:05→21:27)
[2019-02-20] MEDS: hydroCHLOROthiazide 12.5 MG CAPSULE PO SCH (08:06)
[2019-02-20] MEDS: amLODIPine 10 MG TAB PO SCH (08:06)
[2019-02-20] MEDS: THERAPEUTIC BATH LOTION 240 ML BTL TOP SCH ×4 (08:06→21:00)
[2019-02-20] MEDS: LISINOPRIL 20 MG TAB PO SCH (08:06)
[2019-02-20] MEDS: SIMETHICONE 80 MG CHEW TAB PO SCH ×3 (08:06→21:27)
--- NOTE | 2019-02-20 10:55 | MHIPNPDOC ---
[facility] Progress Note Progress Note DATE OF SERVICE: 02/20/19 HISTORY: Patient is a 48 -year-old , male, with psych history of bipolar 1 disorder, multiple admission [facility] and elsewhere ([facility] [place] in the past, recently d/c [facility] 01/26/19 for winsome with psychosis who who was to [facility] by [facility] representatives for winsome, disorganization, agitation,hyperverbal speech, tangential thoughts, restlessness due to med noncompliance since d/c from [facility] last week due to him failing to pick them up. Pt appeared manic and disorganized with nonsensical and rambling speech per [facility] when evaluated there. Pt is a poor historian so history gathered from previous records. Pt seen and very manic, hyperverbal, somewhat agitated, restless, loud, demanding this am arguing with unit techs about needing a long sleeve shirt b/c he was cold. States his meds are at [facility] now and stated something about a mix up with him getting that right after d/c. Pt very tangential, with pressured/rambling speech, goal-directed thoughts, very disorganized talking about having a "hot date with a girl," walking around the unit with his pants pulled up "like Daniel Maddie" b/c it's funny, eating 4 breakfast this am so he gave me his yogurt and stated "Maybe there will be a yogurt for you tomorrow," among other rambling and disorganized thoughts. Stated "you'd be wound up to if you hadn't slept for 3 days." Very hard to redirect toward ending interview as keeps rambling on. Will restart previous meds last d/c on plus zyprexa 10mg tid for winsome and one time order thorazine 100mg and ativan 2mg po this am to get pt to sleep and improve winsome. VITAL SIGNS: See below. NEW TEST RESULTS: See below. AST/ALT/Alk Phos all wnl, trileptal level 15 (therapeutic) CURRENT MEDICATIONS: See below. MENTAL STATUS EXAMINATION: General Appearance: disheveled, appears stated age, own clothing Build: overweight Demeanor: lacks interest and motivation, cooperative Eye Contact: fair Activity: slow Behavior: cooperative, psychomotor retardation Speech: limited, non-spontaneous Mood: depressed, flat Mood "I'm sleeping a lot" Affect: depressed, flat, anhedonic Thought Process: concrete. linear Thought Content (Delusions): denies SI, HI, AVH Thought Content (Other): none reported Thought Content (Aggressive): none reported Perception (Hallucinations): none reported Perception (Other): none reported Cognition (Impairment of): attention/concentration Cognition(Intelligence Est.): borderline Oriented: Awake, Alert, Oriented times three Insight: poor Judgment: Poor Psychosis: none reported DIAGNOSES: Bipolar disorder, mixed episode ASSESSMENT:Pt seen in office this morning disheveled stating he feels "I'm sleeping a lot" then left and went back to his room to bed most likely. Appears depressed with anhedonia and avolition. Per staff in treatment team pt slept all day and night most of the weekend with limited showering less than once a day so slightly malodorous today. Will encourage him to shower today and get o ut of bed and go to groups to improve depressed mood. Continues to struggle with fatigue during the day yet full ability to sleep thru the night though even with decreases in both daytime and nightly zyprexa. Will d/c benadryl today to see if fatigue improves. He appears to have entered a depressive state but monitoring closely for the re-emergence of wilfrido with decreasing doses of meds and pt highly sensitive toward changing from winsome to depression to winsome making meds difficult to titrate to optimal dose. Will continue with referral to [facility] for intermediate treatment due to freq rapid readmission due to med noncompliance as states he has a lot of things he wants to do when he goes home. He is depressed and flat today, appears to lack interest. Encourage to eat more healthy food if he has an increase in appetite secondary zyprexa to limit weight gain. He denies SI/HI, hallucinations. Feels safe here. MANAGEMENT PLAN: continue plan. d/c benadryl qhs trileptal 600mg bid zyprexa 10mg qhs zyprexa 5mg tid seroquel 200mg qhs trazodone 100mg qhs prn insomnia. TIME SPENT: 30 minutes. Vital Signs Vital Signs Date Time Temp Pulse Resp B/P (MAP) Pulse Ox O2 Delivery O2 Flow Rate FiO2 02/20/19 08:06 116/69 02/20/19 08:06 107 02/20/19 06:35 98.1 16 02/19/19 06:47 Room Air Laboratory Data 24H Labs Laboratory Tests 2 02/19/19 12:01: Bedside Glucose (Misc Panel) 129H 02/19/19 16:44: Bedside Glucose (Misc Panel) 99 02/19/19 21:35: Bedside Glucose (Misc Panel) 95 02/20/19 06:30: Bedside Glucose (Misc Panel) 101 Current Medications Current Medications Medications (Trade) Dose Ordered Sig/Kailey Route PRN Reason Start Time Stop Time Status Last Admin Dose Admin Acetaminophen (Tylenol Tab) 650 mg Q6HP PRN PO HEADACHE or DISCOMFORT 01/31/19 15:00 02/11/19 16:29 Al Hydrox/Mg Hydrox/Simethicone (Mylanta) 30 ml Q4HP PRN PO HEARTBURN/INDIGESTION 01/31/19 15:00 Amlodipine Besylate (Norvasc) 10 mg DAILY PO 02/01/19 09:00 02/20/19 08:06 Atorvastatin Calcium (Lipitor) 20 mg QHS PO 01/31/19 21:00 02/19/19 21:42 Benztropine Mesylate (Cogentin) 1 mg BID PO 02/10/19 21:00 02/20/19 08:05 Benztropine Mesylate (Cogentin) 1 mg DAILY PO 02/01/19 09:00 02/10/19 22:48 DC 02/10/19 08:16 Cetylpyridinium Chloride (Cepacol) 1 pranav Q2HP PRN PO COUGH 02/01/19 20:00 02/12/19 08:31 Dextrose (Dextrose 50%) 25 ml ASDIRECTED PRN IV SEE LABEL COMMENTS 01/31/19 15:00 Dimethicone (Vaniply) 0.3 dose Q6H PRN TOP DISCOMFORT 02/10/19 11:00 02/11/19 10:01 Diphenhydramine HCl (Benadryl) 50 mg QHS PO 02/13/19 21:00 02/19/19 21:41 Docusate Sodium (Colace) 100 mg BID PO 01/31/19 21:00 02/20/19 08:05 Fluticasone Propionate (Flonase 0.05% Nasal [place]) 1 spray BID NARES 02/05/19 21:00 02/20/19 08:05 Gabapentin (Neurontin) 600 mg BID PO 02/01/19 09:00 02/20/19 08:05 Glucagon (Glucagon) 1 mg ASDIRECTED PRN SC SEE LABEL COMMENTS 01/31/19 15:00 Glucose (Glucose) 16 GM ASDIRECTED PRN PO SEE LABEL COMMENTS 01/31/19 15:00 Home Med (Med Rec Complete!) ASDIRECTED XX 01/30/19 19:00 01/30/19 18:54 DC Hydrochlorothiazide (Hydrodiuril) 12.5 mg QAM PO 02/10/19 09:00 02/20/19 08:06 Insulin Human Lispro (HumaLOG INSULIN) 4 units STAT STAT SC 01/31/19 11:22 01/31/19 11:23 DC 01/31/19 11:41 Insulin Human Lispro (HumaLOG INSULIN) See Protocol Table AC SC 01/31/19 17:30 02/20/19 06:41 Insulin Human Lispro (HumaLOG INSULIN) See Protocol Table QHS SC 01/31/19 21:00 Levothyroxine Sodium (Synthroid) 100 mcg DAILY@0600 PO 02/01/19 06:00 02/20/19 06:25 Lisinopril (Prinivil) 20 mg DAILY PO 02/01/19 09:00 02/20/19 08:06 Lorazepam (Ativan) 1 mg Q6H PRN PO ANXIETY/AGITATION 02/08/19 14:15 02/11/19 06:01 Lorazepam (Ativan) 2 mg Q4HP PRN PO ANXIETY/AGITATION 01/31/19 15:00 01/31/19 17:13 DC Lorazepam (Ativan) 2 mg Q4HP PRN PO ANXIETY/AGITATION 01/31/19 17:13 02/08/19 14:04 DC 02/08/19 04:59 Lorazepam (Ativan) 2 mg STAT STAT PO 01/31/19 07:19 01/31/19 07:21 DC 01/31/19 07:27 Magnesium Hydroxide (Milk Of Magnesia) 30 ml DAILYPRN PRN PO CONSTIPATION 01/31/19 15:00 02/11/19 17:24 Metformin HCl (Glucophage) 1,000 mg BID@08,18 PO 02/01/19 18:00 02/20/19 08:05 Mirtazapine (Remeron) 15 mg QHSP PRN PO INSOMNIA 02/10/19 22:45 02/12/19 21:00 DC 02/11/19 23:19 Miscellaneous (Unresolved Clarification Entry) SEE LABEL COMMENTS DAILY XX 02/06/19 09:00 02/07/19 06:47 DC Miscellaneous (Unresolved Clarification Entry) SEE LABEL COMMENTS DAILY XX 02/07/19 09:00 02/07/19 14:14 DC Miscellaneous (Unresolved Clarification Entry) SEE LABEL COMMENTS DAILY XX 02/19/19 09:00 02/20/19 06:18 DC Miscellaneous (Unresolved Clarification Entry) SEE LABEL COMMENTS DAILY XX 02/20/19 09:00 02/20/19 09:08 Multi-Ingredient Lotion (Loreto Lotion) 1 dose QID TOP 02/10/19 13:00 02/20/19 08:06 Non-Formulary Medication ( See Comment Field Below ) SEE COMMENTS SECTION 1T@10 ID 02/12/19 10:00 02/13/19 09:59 UNV Non-Formulary Medication ( See Comment Field Below ) SEE LABEL COMMENTS DAILY XX 02/10/19 09:00 02/13/19 15:01 DC Olanzapine (ZyPREXA) 5 mg TID PO 02/16/19 09:00 02/20/19 08:05 Olanzapine (ZyPREXA) 10 mg QHS PO 02/17/19 21:00 02/19/19 21:42 Olanzapine (ZyPREXA) 10 mg TID PO 01/31/19 21:00 02/16/19 09:16 DC 02/15/19 22:13 Olanzapine (ZyPREXA) 15 mg QHS PO 02/01/19 21:00 02/08/19 11:52 DC 02/06/19 21:12 Olanzapine (ZyPREXA) 20 mg QHS PO 02/08/19 21:00 02/17/19 10:31 DC 02/16/19 21:07 Oxcarbazepine (Trileptal) 600 mg BID PO 01/31/19 21:00 02/20/19 08:05 Paliperidone Palmitate (Invega Sustenna) 234 mg Q30D IM 02/26/19 09:00 Phenol (Chloraseptic [place]) 1 spray QIDP PRN MT SORE THROAT 02/01/19 20:00 02/12/19 03:54 Pseudoephedrine HCl (Sudafed) 30 mg BIDP PRN PO NASAL CONGESTION 02/02/19 23:15 02/11/19 09:59 Quetiapine Fumarate (SEROquel) 200 mg QHS PO 01/31/19 21:00 02/19/19 21:41 Simethicone (Mylicon) 80 mg TID PO 02/05/19 16:00 02/20/19 08:06 Trazodone HCl (Desyrel) 50 mg QHSP PRN PO INSOMNIA 01/31/19 15:00 02/07/19 09:00 DC 02/06/19 21:12 Trazodone HCl (Desyrel) 100 mg QHSP PRN PO INSOMNIA 02/07/19 09:00 02/19/19 21:42 Allergies Coded Allergies: Penicillins (Verified Allergy, Intermediate, rash, 01/02/19) divalproex sodium (Verified Allergy, Unknown, 01/02/19) CLAIR STEIN DO Feb 20, 2019 10:55 am
[2019-02-20 16:27] VITALS: BP 111/59
[2019-02-20] MEDS: ATORVASTATIN 20 MG TAB PO SCH (21:26)
[2019-02-20] MEDS: OLANZapine 10 MG TAB PO SCH (21:26)
[2019-02-20] MEDS: QUEtiapine FUMARATE 200 MG TAB PO SCH (21:26)
[2019-02-21] MEDS: LEVOTHYROXINE 100MCG TABLET (0.1MG) PO SCH (05:52)
[2019-02-21] MEDS: HumaLOG INSULIN (NovoLOG) PER UNIT SC SCH ×4 (05:58→21:00)
[2019-02-21 06:36] VITALS: BP 127/63
[2019-02-21] MEDS: OLANZapine 5 MG TAB PO SCH ×3 (08:34→21:31)
[2019-02-21] MEDS: GABAPENTIN 300 MG CAP PO SCH ×2 (08:34→21:31)
[2019-02-21] MEDS: LISINOPRIL 20 MG TAB PO SCH (08:34)
[2019-02-21] MEDS: SIMETHICONE 80 MG CHEW TAB PO SCH ×3 (08:34→21:31)
[2019-02-21] MEDS: metFORMIN (GLUCOPHAGE) 1000 MG TABLET PO SCH ×2 (08:34→17:13)
[2019-02-21] MEDS: amLODIPine 10 MG TAB PO SCH (08:34)
[2019-02-21] MEDS: BENZTROPINE 1 MG TAB PO SCH ×2 (08:35→21:31)
[2019-02-21] MEDS: DOCUSATE SODIUM 100 MG CAP PO SCH ×2 (08:35→21:31)
[2019-02-21] MEDS: FLUTICASONE PROP 0.05% NASAL SPRAY 16 GM (FLONASE) NARES SCH ×2 (08:35→21:00)
[2019-02-21] MEDS: OXcarbazepine 300 MG TAB PO SCH ×2 (08:35→21:31)
[2019-02-21] MEDS: THERAPEUTIC BATH LOTION 240 ML BTL TOP SCH ×4 (08:35→21:00)
[2019-02-21] MEDS: hydroCHLOROthiazide 12.5 MG CAPSULE PO SCH (08:35)
--- NOTE | 2019-02-21 09:42 | MHIPNPDOC ---
[facility] Progress Note Progress Note DATE OF SERVICE: 02/21/19 HISTORY: Patient is a 48 -year-old , male, with psych history of bipolar 1 disorder, multiple admission [facility] and elsewhere ([facility] [place] in the past, recently d/c [facility] 01/26/19 for winsome with psychosis who who was to [facility] by [facility] representatives for winsome, disorganization, agitation,hyperverbal speech, tangential thoughts, restlessness due to med noncompliance since d/c from [facility] last week due to him failing to pick them up. Pt appeared manic and disorganized with nonsensical and rambling speech per [facility] when evaluated there. Pt is a poor historian so history gathered from previous records. Pt seen and very manic, hyperverbal, somewhat agitated, restless, loud, demanding this am arguing with unit techs about needing a long sleeve shirt b/c he was cold. States his meds are at [facility] now and stated something about a mix up with him getting that right after d/c. Pt very tangential, with pressured/rambling speech, goal-directed thoughts, very disorganized talking about having a "hot date with a girl," walking around the unit with his pants pulled up "like Daniel Maddie" b/c it's funny, eating 4 breakfast this am so he gave me his yogurt and stated "Maybe there will be a yogurt for you tomorrow," among other rambling and disorganized thoughts. Stated "you'd be wound up to if you hadn't slept for 3 days." Very hard to redirect toward ending interview as keeps rambling on. Will restart previous meds last d/c on plus zyprexa 10mg tid for winsome and one time order thorazine 100mg and ativan 2mg po this am to get pt to sleep and improve winsome. VITAL SIGNS: See below. NEW TEST RESULTS: See below. AST/ALT/Alk Phos all wnl, trileptal level 15 (therapeutic) CURRENT MEDICATIONS: See below. MENTAL STATUS EXAMINATION: General Appearance: disheveled, appears stated age, own clothing Build: overweight Demeanor: lacks interest and motivation, cooperative Eye Contact: fair Activity: slow Behavior: cooperative, psychomotor retardation Speech: limited, non-spontaneous Mood: depressed, flat Mood "I'm tired" Affect: depressed, flat, anhedonic Thought Process: concrete. linear Thought Content (Delusions): denies SI, HI, AVH Thought Content (Other): none reported Thought Content (Aggressive): none reported Perception (Hallucinations): none reported Perception (Other): none reported Cognition (Impairment of): attention/concentration Cognition(Intelligence Est.): borderline Oriented: Awake, Alert, Oriented times three Insight: poor Judgment: Poor Psychosis: none reported DIAGNOSES: Bipolar disorder, mixed episode ASSESSMENT:Pt seen in room and woke pt up and got him out of bed to go to group to force him to not isolate in bed all day. States he's still tired even with med changes to reduce overall sedation. After woken up and forced out of bed appeared more active on the unit during the morning. Appears depressed still with anhedonia and avolition. Per staff in treatment team pt slept all day and night most of the weekend with limited showering less than once a day so slightly malodorous today. Will encourage him to shower daily and get out of bed and go to groups to improve depressed mood. Continues to struggle with fatigue during the day yet full ability to sleep thru the night though even with decreases in both daytime and nightly zyprexa and d/c of nightly benadryl. Will decreased trazodone nightly today to see if fatigue improves. He appears to have entered a depressive state but monitoring closely for the re-emergence of wilfrido with decreasing doses of meds and pt highly sensitive toward changing from winsome to depression to winsome making meds difficult to titrate to optimal dose. Will continue with referral to [facility] for penitentiary treatment due to freq rapid readmission due to med noncompliance as states he has a lot of things he wants to do when he goes home. He is depressed and flat today, appears to lack interest. Encourage to eat more healthy food if he has an increase in appetite secondary zyprexa to limit weight gain. He denies SI/HI, hallucinations. Feels safe here. MANAGEMENT PLAN: continue plan. decrease trazodone qhs trileptal 600mg bid zyprexa 10mg qhs zyprexa 5mg tid seroquel 200mg qhs trazodone 50mg qhs prn insomnia. TIME SPENT: 30 minutes. Vital Signs Vital Signs Date Time Temp Pulse Resp B/P (MAP) Pulse Ox O2 Delivery O2 Flow Rate FiO2 02/21/19 08:34 127/63 02/21/19 08:34 79 02/21/19 06:36 98.0 16 02/20/19 16:27 100 02/19/19 06:47 Room Air Laboratory Data 24H Labs Laboratory Tests 2 02/20/19 11:17: Bedside Glucose (Misc Panel) 161H 02/20/19 17:21: Bedside Glucose (Misc Panel) 121H 02/20/19 21:36: Bedside Glucose (Misc Panel) 78 02/21/19 05:55: Bedside Glucose (Misc Panel) 96 Current Medications Current Medications Medications (Trade) Dose Ordered Sig/Kailey Route PRN Reason Start Time Stop Time Status Last Admin Dose Admin Acetaminophen (Tylenol Tab) 650 mg Q6HP PRN PO HEADACHE or DISCOMFORT 01/31/19 15:00 02/11/19 16:29 Al Hydrox/Mg Hydrox/Simethicone (Mylanta) 30 ml Q4HP PRN PO HEARTBURN/INDIGESTION 01/31/19 15:00 Amlodipine Besylate (Norvasc) 10 mg DAILY PO 02/01/19 09:00 02/21/19 08:34 Atorvastatin Calcium (Lipitor) 20 mg QHS PO 01/31/19 21:00 02/20/19 21:26 Benztropine Mesylate (Cogentin) 1 mg BID PO 02/10/19 21:00 02/21/19 08:35 Benztropine Mesylate (Cogentin) 1 mg DAILY PO 02/01/19 09:00 02/10/19 22:48 DC 02/10/19 08:16 Cetylpyridinium Chloride (Cepacol) 1 pranav Q2HP PRN PO COUGH 02/01/19 20:00 02/12/19 08:31 Dextrose (Dextrose 50%) 25 ml ASDIRECTED PRN IV SEE LABEL COMMENTS 01/31/19 15:00 Dimethicone (Vaniply) 0.3 dose Q6H PRN TOP DISCOMFORT 02/10/19 11:00 02/11/19 10:01 Diphenhydramine HCl (Benadryl) 50 mg QHS PO 02/13/19 21:00 02/20/19 10:55 DC 02/19/19 21:41 Docusate Sodium (Colace) 100 mg BID PO 01/31/19 21:00 02/21/19 08:35 Fluticasone Propionate (Flonase 0.05% Nasal [place]) 1 spray BID NARES 02/05/19 21:00 02/21/19 08:35 Gabapentin (Neurontin) 600 mg BID PO 02/01/19 09:00 02/21/19 08:34 Glucagon (Glucagon) 1 mg ASDIRECTED PRN SC SEE LABEL COMMENTS 01/31/19 15:00 Glucose (Glucose) 16 GM ASDIRECTED PRN PO SEE LABEL COMMENTS 01/31/19 15:00 Home Med (Med Rec Complete!) ASDIRECTED XX 01/30/19 19:00 01/30/19 18:54 DC Hydrochlorothiazide (Hydrodiuril) 12.5 mg QAM PO 02/10/19 09:00 02/21/19 08:35 Insulin Human Lispro (HumaLOG INSULIN) 4 units STAT STAT SC 01/31/19 11:22 01/31/19 11:23 DC 01/31/19 11:41 Insulin Human Lispro (HumaLOG INSULIN) See Protocol Table AC SC 01/31/19 17:30 02/20/19 17:25 Insulin Human Lispro (HumaLOG INSULIN) See Protocol Table QHS SC 01/31/19 21:00 Levothyroxine Sodium (Synthroid) 100 mcg DAILY@0600 PO 02/01/19 06:00 02/21/19 05:52 Lisinopril (Prinivil) 20 mg DAILY PO 02/01/19 09:00 02/21/19 08:34 Lorazepam (Ativan) 1 mg Q6H PRN PO ANXIETY/AGITATION 02/08/19 14:15 02/11/19 06:01 Lorazepam (Ativan) 2 mg Q4HP PRN PO ANXIETY/AGITATION 01/31/19 15:00 01/31/19 17:13 DC Lorazepam (Ativan) 2 mg Q4HP PRN PO ANXIETY/AGITATION 01/31/19 17:13 02/08/19 14:04 DC 02/08/19 04:59 Lorazepam (Ativan) 2 mg STAT STAT PO 01/31/19 07:19 01/31/19 07:21 DC 01/31/19 07:27 Magnesium Hydroxide (Milk Of Magnesia) 30 ml DAILYPRN PRN PO CONSTIPATION 01/31/19 15:00 02/11/19 17:24 Metformin HCl (Glucophage) 1,000 mg BID@08,18 PO 02/01/19 18:00 02/21/19 08:34 Mirtazapine (Remeron) 15 mg QHSP PRN PO INSOMNIA 02/10/19 22:45 02/12/19 21:00 DC 02/11/19 23:19 Miscellaneous (Unresolved Clarification Entry) SEE LABEL COMMENTS DAILY XX 02/06/19 09:00 02/07/19 06:47 DC Miscellaneous (Unresolved Clarification Entry) SEE LABEL COMMENTS DAILY XX 02/07/19 09:00 02/07/19 14:14 DC Miscellaneous (Unresolved Clarification Entry) SEE LABEL COMMENTS DAILY XX 02/19/19 09:00 02/20/19 06:18 DC Miscellaneous (Unresolved Clarification Entry) SEE LABEL COMMENTS DAILY XX 02/20/19 09:00 02/20/19 09:08 Multi-Ingredient Lotion (Loreto Lotion) 1 dose QID TOP 02/10/19 13:00 02/20/19 15:25 Non-Formulary Medication ( See Comment Field Below ) SEE COMMENTS SECTION 1T@10 ID 02/12/19 10:00 02/13/19 09:59 UNV Non-Formulary Medication ( See Comment Field Below ) SEE LABEL COMMENTS DAILY XX 02/10/19 09:00 02/13/19 15:01 DC Olanzapine (ZyPREXA) 5 mg TID PO 02/16/19 09:00 02/21/19 08:34 Olanzapine (ZyPREXA) 10 mg QHS PO 02/17/19 21:00 02/20/19 21:26 Olanzapine (ZyPREXA) 10 mg TID PO 01/31/19 21:00 02/16/19 09:16 DC 02/15/19 22:13 Olanzapine (ZyPREXA) 15 mg QHS PO 02/01/19 21:00 02/08/19 11:52 DC 02/06/19 21:12 Olanzapine (ZyPREXA) 20 mg QHS PO 02/08/19 21:00 02/17/19 10:31 DC 02/16/19 21:07 Oxcarbazepine (Trileptal) 600 mg BID PO 01/31/19 21:00 02/21/19 08:35 Paliperidone Palmitate (Invega Sustenna) 234 mg Q30D IM 02/26/19 09:00 Phenol (Chloraseptic [place]) 1 spray QIDP PRN MT SORE THROAT 02/01/19 20:00 02/12/19 03:54 Pseudoephedrine HCl (Sudafed) 30 mg BIDP PRN PO NASAL CONGESTION 02/02/19 23:15 02/11/19 09:59 Quetiapine Fumarate (SEROquel) 200 mg QHS PO 01/31/19 21:00 02/20/19 21:26 Simethicone (Mylicon) 80 mg TID PO 02/05/19 16:00 02/21/19 08:34 Trazodone HCl (Desyrel) 50 mg QHSP PRN PO INSOMNIA 01/31/19 15:00 02/07/19 09:00 DC 02/06/19 21:12 Trazodone HCl (Desyrel) 100 mg QHSP PRN PO INSOMNIA 02/07/19 09:00 02/19/19 21:42 Allergies Coded Allergies: Penicillins (Verified Allergy, Intermediate, rash, 01/02/19) divalproex sodium (Verified Allergy, Unknown, 01/02/19) CLAIR STEIN DO Feb 21, 2019 9:42 am
[2019-02-21 15:24] VITALS: BP 143/86
[2019-02-21] MEDS ORDERED: traZODone 50 MG TAB PO PRN (21:00)
[2019-02-21] MEDS: ATORVASTATIN 20 MG TAB PO SCH (21:31)
[2019-02-21] MEDS: OLANZapine 10 MG TAB PO SCH (21:31)
[2019-02-21] MEDS: QUEtiapine FUMARATE 200 MG TAB PO SCH (21:31)
[2019-02-22] MEDS: LEVOTHYROXINE 100MCG TABLET (0.1MG) PO SCH (06:11)
[2019-02-22 06:47] VITALS: BP 139/75
[2019-02-22] MEDS: HumaLOG INSULIN (NovoLOG) PER UNIT SC SCH ×4 (07:26→21:00)
[2019-02-22] MEDS: BENZTROPINE 1 MG TAB PO SCH ×2 (08:28→21:57)
[2019-02-22] MEDS: metFORMIN (GLUCOPHAGE) 1000 MG TABLET PO SCH ×2 (08:28→16:56)
[2019-02-22] MEDS: SIMETHICONE 80 MG CHEW TAB PO SCH ×3 (08:28→21:59)
[2019-02-22] MEDS: amLODIPine 10 MG TAB PO SCH (08:28)
[2019-02-22] MEDS: DOCUSATE SODIUM 100 MG CAP PO SCH ×2 (08:28→21:56)
[2019-02-22] MEDS: hydroCHLOROthiazide 12.5 MG CAPSULE PO SCH (08:28)
[2019-02-22] MEDS: GABAPENTIN 300 MG CAP PO SCH ×2 (08:28→21:57)
[2019-02-22] MEDS: OXcarbazepine 300 MG TAB PO SCH ×2 (08:28→21:57)
[2019-02-22] MEDS: LISINOPRIL 20 MG TAB PO SCH (08:28)
[2019-02-22] MEDS: OLANZapine 5 MG TAB PO SCH ×3 (08:28→21:56)
[2019-02-22] MEDS: FLUTICASONE PROP 0.05% NASAL SPRAY 16 GM (FLONASE) NARES SCH ×2 (08:39→21:56)
[2019-02-22] MEDS: THERAPEUTIC BATH LOTION 240 ML BTL TOP SCH ×4 (08:40→21:00)
--- NOTE | 2019-02-22 09:00 | MHIPNPDOC ---
[facility] Progress Note Progress Note DATE OF SERVICE: 02/22/19 HISTORY: Patient is a 48 -year-old , male, with psych history of bipolar 1 disorder, multiple admission [facility] and elsewhere [place] in the past, recently d/c [facility] 01/26/19 for winsome with psychosis who who was to [facility] ED by [facility] representatives for winsome, disorganization, agitation,hyperverbal speech, tangential thoughts, restlessness due to med noncompliance since d/c from [facility] last week due to him failing to pick them up. Pt appeared manic and disorganized with nonsensical and rambling speech per [facility] ED when evaluated there. Pt is a poor historian so history gathered from previous records. Pt seen and very manic, hyperverbal, somewhat agitated, restless, loud, demanding this am arguing with unit techs about needing a long sleeve shirt b/c he was cold. States his meds are at [facility] now and stated something about a mix up with him getting that right after d/c. Pt very tangential, with pressured/rambling speech, goal-directed thoughts, very disorganized talking about having a "hot date with a girl," walking around the unit with his pants pulled up "like Daniel Perkins" b/c it's funny, eating 4 breakfast this am so he gave me his yogurt and stated "Maybe there will be a yogurt for you tomorrow," among other rambling and disorganized thoughts. Stated "you'd be wound up to if you hadn't slept for 3 days." Very hard to redirect toward ending interview as keeps rambling on. Will restart previous meds last d/c on plus zyprexa 10mg tid for winsome and one time order thorazine 100mg and ativan 2mg po this am to get pt to sleep and improve winsome. VITAL SIGNS: See below. NEW TEST RESULTS: See below. AST/ALT/Alk Phos all wnl, trileptal level 15 (therapeutic) CURRENT MEDICATIONS: See below. MENTAL STATUS EXAMINATION: General Appearance: disheveled, appears stated age, own clothing Build: overweight Demeanor: lacks interest and motivation, cooperative Eye Contact: fair Activity: slow Behavior: cooperative, psychomotor retardation Speech: limited, non-spontaneous Mood: depressed, flat Mood "ok" Affect: depressed, flat, anhedonic Thought Process: concrete. linear Thought Content (Delusions): denies SI, HI, AVH Thought Content (Other): none reported Thought Content (Aggressive): none reported Perception (Hallucinations): none reported Perception (Other): none reported Cognition (Impairment of): attention/concentration Cognition(Intelligence Est.): borderline Oriented: Awake, Alert, Oriented times three Insight: poor Judgment: Poor Psychosis: none reported DIAGNOSES: Bipolar disorder, mixed episode ASSESSMENT:Pt seen in room and states he's doing "ok." Asked if he wanted to get up out of bed and stated "no" flatly, very unmotivated to do anything. Stated he found out he's going to [facility] tomorrow which he states he's "ok" with and denies he's upset that he's going but feels alright about it. States he's still tired even with med changes to reduce overall sedation. After woken up and forced out of bed appeared more active on the unit during the morning. Appears depressed still with anhedonia and avolition. Continues to sleep most of the day and night but is now showering daily. Will encourage him to get out of bed and go to groups to improve depressed mood thru out the day. Continues to struggle with fatigue during the day yet full ability to sleep thru the night though even with decreases in both daytime and nightly zyprexa and d/c of nightly benadryl. He appears to have entered a depressive state but monitoring closely for the re-emergence of winsome with decreasing doses of meds and pt highly sensitive toward changing from winsome to depression to winsome making meds difficult to titrate to optimal dose. 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 He is depressed and flat today, appears to lack interest. Encourage to eat more healthy food if he has an increase in appetite secondary zyprexa to limit weight gain. He denies SI/HI, hallucinations. Feels safe here. MANAGEMENT PLAN: continue plan. trileptal 600mg bid zyprexa 10mg qhs zyprexa 5mg tid seroquel 200mg qhs trazodone 50mg qhs prn insomnia. TIME SPENT: 30 minutes. Vital Signs Vital Signs Date Time Temp Pulse Resp B/P (MAP) Pulse Ox O2 Delivery O2 Flow Rate FiO2 02/22/19 08:28 139/75 02/22/19 08:28 75 02/22/19 06:47 97.8 16 02/20/19 16:27 100 02/19/19 06:47 Room Air Laboratory Data 24H Labs Laboratory Tests 2 02/21/19 12:09: Bedside Glucose (Misc Panel) 108H 02/21/19 17:10: Bedside Glucose (Misc Panel) 116H 02/21/19 21:27: Bedside Glucose (Misc Panel) 105 02/22/19 06:10: Bedside Glucose (Misc Panel) 100 Current Medications Current Medications Medications (Trade) Dose Ordered Sig/Kailey Route PRN Reason Start Time Stop Time Status Last Admin Dose Admin Acetaminophen (Tylenol Tab) 650 mg Q6HP PRN PO HEADACHE or DISCOMFORT 01/31/19 15:00 02/11/19 16:29 Al Hydrox/Mg Hydrox/Simethicone (Mylanta) 30 ml Q4HP PRN PO HEARTBURN/INDIGESTION 01/31/19 15:00 Amlodipine Besylate (Norvasc) 10 mg DAILY PO 02/01/19 09:00 02/22/19 08:28 Atorvastatin Calcium (Lipitor) 20 mg QHS PO 01/31/19 21:00 02/21/19 21:31 Benztropine Mesylate (Cogentin) 1 mg BID PO 02/10/19 21:00 02/22/19 08:28 Benztropine Mesylate (Cogentin) 1 mg DAILY PO 02/01/19 09:00 02/10/19 22:48 DC 02/10/19 08:16 Cetylpyridinium Chloride (Cepacol) 1 pranav Q2HP PRN PO COUGH 02/01/19 20:00 02/12/19 08:31 Dextrose (Dextrose 50%) 25 ml ASDIRECTED PRN IV SEE LABEL COMMENTS 01/31/19 15:00 Dimethicone (Vaniply) 0.3 dose Q6H PRN TOP DISCOMFORT 02/10/19 11:00 02/11/19 10:01 Diphenhydramine HCl (Benadryl) 50 mg QHS PO 02/13/19 21:00 02/20/19 10:55 DC 02/19/19 21:41 Docusate Sodium (Colace) 100 mg BID PO 01/31/19 21:00 02/22/19 08:28 Fluticasone Propionate (Flonase 0.05% Nasal [place]) 1 spray BID NARES 02/05/19 21:00 02/22/19 08:39 Gabapentin (Neurontin) 600 mg BID PO 02/01/19 09:00 02/22/19 08:28 Glucagon (Glucagon) 1 mg ASDIRECTED PRN SC SEE LABEL COMMENTS 01/31/19 15:00 Glucose (Glucose) 16 GM ASDIRECTED PRN PO SEE LABEL COMMENTS 01/31/19 15:00 Home Med (Med Rec Complete!) ASDIRECTED XX 01/30/19 19:00 01/30/19 18:54 DC Hydrochlorothiazide (Hydrodiuril) 12.5 mg QAM PO 02/10/19 09:00 02/22/19 08:28 Insulin Human Lispro (HumaLOG INSULIN) 4 units STAT STAT SC 01/31/19 11:22 01/31/19 11:23 DC 01/31/19 11:41 Insulin Human Lispro (HumaLOG INSULIN) See Protocol Table AC SC 01/31/19 17:30 02/21/19 17:13 Insulin Human Lispro (HumaLOG INSULIN) See Protocol Table QHS SC 01/31/19 21:00 Levothyroxine Sodium (Synthroid) 100 mcg DAILY@0600 PO 02/01/19 06:00 02/22/19 06:11 Lisinopril (Prinivil) 20 mg DAILY PO 02/01/19 09:00 02/22/19 08:28 Lorazepam (Ativan) 1 mg Q6H PRN PO ANXIETY/AGITATION 02/08/19 14:15 02/11/19 06:01 Lorazepam (Ativan) 2 mg Q4HP PRN PO ANXIETY/AGITATION 01/31/19 15:00 01/31/19 17:13 DC Lorazepam (Ativan) 2 mg Q4HP PRN PO ANXIETY/AGITATION 01/31/19 17:13 02/08/19 14:04 DC 02/08/19 04:59 Lorazepam (Ativan) 2 mg STAT STAT PO 01/31/19 07:19 01/31/19 07:21 DC 01/31/19 07:27 Magnesium Hydroxide (Milk Of Magnesia) 30 ml DAILYPRN PRN PO CONSTIPATION 01/31/19 15:00 02/11/19 17:24 Metformin HCl (Glucophage) 1,000 mg BID@08,18 PO 02/01/19 18:00 02/22/19 08:28 Mirtazapine (Remeron) 15 mg QHSP PRN PO INSOMNIA 02/10/19 22:45 02/12/19 21:00 DC 02/11/19 23:19 Miscellaneous (Unresolved Clarification Entry) SEE LABEL COMMENTS DAILY XX 02/06/19 09:00 02/07/19 06:47 DC Miscellaneous (Unresolved Clarification Entry) SEE LABEL COMMENTS DAILY XX 02/07/19 09:00 02/07/19 14:14 DC Miscellaneous (Unresolved Clarification Entry) SEE LABEL COMMENTS DAILY XX 02/19/19 09:00 02/20/19 06:18 DC Miscellaneous (Unresolved Clarification Entry) SEE LABEL COMMENTS DAILY XX 02/20/19 09:00 02/20/19 09:08 Multi-Ingredient Lotion (Loreto Lotion) 1 dose QID TOP 02/10/19 13:00 02/20/19 15:25 Non-Formulary Medication ( See Comment Field Below ) SEE COMMENTS SECTION 1T@10 ID 02/12/19 10:00 02/13/19 09:59 UNV Non-Formulary Medication ( See Comment Field Below ) SEE LABEL COMMENTS DAILY XX 02/10/19 09:00 02/13/19 15:01 DC Olanzapine (ZyPREXA) 5 mg TID PO 02/16/19 09:00 02/22/19 08:28 Olanzapine (ZyPREXA) 10 mg QHS PO 02/17/19 21:00 02/21/19 21:31 Olanzapine (ZyPREXA) 10 mg TID PO 01/31/19 21:00 02/16/19 09:16 DC 02/15/19 22:13 Olanzapine (ZyPREXA) 15 mg QHS PO 02/01/19 21:00 02/08/19 11:52 DC 02/06/19 21:12 Olanzapine (ZyPREXA) 20 mg QHS PO 02/08/19 21:00 02/17/19 10:31 DC 02/16/19 21:07 Oxcarbazepine (Trileptal) 600 mg BID PO 01/31/19 21:00 02/22/19 08:28 Paliperidone Palmitate (Invega Sustenna) 234 mg Q30D IM 02/26/19 09:00 Phenol (Chloraseptic Solgohachia) 1 spray QIDP PRN MT SORE THROAT 02/01/19 20:00 02/12/19 03:54 Pseudoephedrine HCl (Sudafed) 30 mg BIDP PRN PO NASAL CONGESTION 02/02/19 23:15 02/11/19 09:59 Quetiapine Fumarate (SEROquel) 200 mg QHS PO 01/31/19 21:00 02/21/19 21:31 Simethicone (Mylicon) 80 mg TID PO 02/05/19 16:00 02/22/19 08:28 Trazodone HCl (Desyrel) 50 mg QHSP PRN PO INSOMNIA 01/31/19 15:00 02/07/19 09:00 DC 02/06/19 21:12 Trazodone HCl (Desyrel) 50 mg QHSP PRN PO INSOMNIA 02/21/19 21:00 Trazodone HCl (Desyrel) 100 mg QHSP PRN PO INSOMNIA 02/07/19 09:00 02/21/19 09:43 DC 02/19/19 21:42 Allergies Coded Allergies: Penicillins (Verified Allergy, Intermediate, rash, 01/02/19) divalproex sodium (Verified Allergy, Unknown, 01/02/19) CLAIR STEIN DO Feb 22, 2019 9:00 am
[2019-02-22 18:10] VITALS: BP 143/67
[2019-02-22] MEDS: ATORVASTATIN 20 MG TAB PO SCH (21:57)
[2019-02-22] MEDS: QUEtiapine FUMARATE 200 MG TAB PO SCH (21:57)
[2019-02-22] MEDS: OLANZapine 10 MG TAB PO SCH (21:57)
[2019-02-23] MEDS: LEVOTHYROXINE 100MCG TABLET (0.1MG) PO SCH (06:31)
[2019-02-23] MEDS: HumaLOG INSULIN (NovoLOG) PER UNIT SC SCH ×2 (06:34→12:00)
[2019-02-23 06:37] VITALS: BP 144/88
[2019-02-23] MEDS: hydroCHLOROthiazide 12.5 MG CAPSULE PO SCH (08:01)
[2019-02-23] MEDS: GABAPENTIN 300 MG CAP PO SCH (08:01)
[2019-02-23] MEDS: OLANZapine 5 MG TAB PO SCH (08:01)
[2019-02-23] MEDS: metFORMIN (GLUCOPHAGE) 1000 MG TABLET PO SCH (08:01)
[2019-02-23] MEDS: LISINOPRIL 20 MG TAB PO SCH (08:01)
[2019-02-23 08:02] VITALS: BP 144/85
[2019-02-23] MEDS: amLODIPine 10 MG TAB PO SCH (08:02)
[2019-02-23] MEDS: SIMETHICONE 80 MG CHEW TAB PO SCH (08:02)
[2019-02-23] MEDS: OXcarbazepine 300 MG TAB PO SCH (08:02)
[2019-02-23] MEDS: BENZTROPINE 1 MG TAB PO SCH (08:02)
[2019-02-23] MEDS: DOCUSATE SODIUM 100 MG CAP PO SCH (08:03)
[2019-02-23] MEDS: THERAPEUTIC BATH LOTION 240 ML BTL TOP SCH ×2 (08:03→13:00)
[2019-02-23] MEDS: FLUTICASONE PROP 0.05% NASAL SPRAY 16 GM (FLONASE) NARES SCH (08:03)
--- NOTE | 2019-02-23 08:50 | MHDSPDOC ---
[facility] Discharge Summary Discharge Summary DATE OF ADMISSION: Jan 31, 2019 at 2:34 pm DATE OF DISCHARGE: Feb 23, 2019 DISCHARGE DIAGNOSES: Bipolar disorder, mixed episode REASON FOR ADMISSION: Patient is a 48 -year-old , male, with psych history of bipolar 1 disorder, multiple admission [facility] and elsewhere ([facility] in the past, recently d/c [facility] 01/26/19 for winsome with psychosis who who was to [facility] ED by [facility] representatives for winsome, disorganization, agitation,hyperverbal speech, tangential thoughts, restlessness due to med noncompliance since d/c from [facility] last week due to him failing to pick them up. Pt appeared manic and disorganized with nonsensical and rambling speech per [facility] ED when evaluated there. Pt is a poor historian so history gathered from previous records. Pt seen and very manic, hyperverbal, somewhat agitated, restless, loud, demanding this am arguing with unit techs about needing a long sleeve shirt b/c he was cold. States his meds are at [facility] now and stated something about a mix up with him getting that right after d/c. Pt very tangential, with pressured/rambling speech, goal-directed thoughts, very disorganized talking about having a "hot date with a girl," walking around the unit with his pants pulled up "like Daniel Perkins" b/c it's funny, eating 4 breakfast this am so he gave me his yogurt and stated "Maybe there will be a yogurt for you tomorrow," among other rambling and disorganized thoughts. Stated "you'd be wound up to if you hadn't slept for 3 days." Very hard to redirect toward ending interview as keeps rambling on. Will restart previous meds last d/c on plus zyprexa 10mg tid for winsome and one time order thorazine 100mg and ativan 2mg po this am to get pt to sleep and improve winsome. CONSULTANTS INVOLVED: none TEST RESULTS: AST/ALT/Alk Phos all wnl, trileptal level 15 (therapeutic) TREATMENT AND PROGRESS ON THE UNIT : Pt was admitted to [facility], seen for psychiatric assessment and restarted on his outpatient medications seroquel 200mg qhs, trileptal 600mg bid, cogentin 1mg daily, zyprexa 10mg qam,qnoon, and 15mg qhs. Pt was given invega sustenna 234mg im then 156mg im for medication compliance and bipolar d/o that he tolerated well and was beneficial for his symptoms of winsome. He was provided trazodone increased to 100mg (when pt manic) then decreased to 50mg qhs (when pt depressed) prn insomnia. Shortly after winsome improved with medication pt started sleeping thru out the day with avolition, anhedonia, depression and his zyprexa was decreased to 5mg tid and 10mg qhs to improve daytime sedation and amotivation while little improvement. His trileptal level prior d/c was 15 which was therapeutic. Pt found his medications beneficial and tolerated them well. He was given another dose of invega sustenna 234mg that during his treatment as it was due to be renewed and tolerated it well. He attended groups daily during his stay although less often when he started having fatigue, avolition, and depression. His symptoms improved regarding winsome and quickly worsened regarding depression to then minor improvement in depression/avolition during his treatment. On day of discharge he denied winsome, SI/HI, hallucinations, delusions. 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 DISCHARGE ASSESSMENT: Pt seen in room and states he's doing "ok." Asked if he wanted to get up out of bed and stated "no" flatly, continues to be very unmotivated to do anything. Stated he's ready to go to [facility] today. States he's still tired even with med changes to reduce overall sedation. Appears depressed still with anhedonia and avolition. Continues to sleep most of the day and night but is now showering daily. Encourages him to get out of bed daily and go to groups to improve depressed mood while here. Continues to struggle with fatigue during the day yet full ability to sleep thru the night though even with decreases in both daytime and nightly zyprexa and d/c of nightly benadryl. He appears to have entered a depressive state but monitoring closely for the re- emergence of winsome with decreasing doses of meds and pt highly sensitive toward changing from winsome to depression to winsome making meds difficult to titrate to optimal dose. He is depressed and flat today, appears to lack interest. Encourage to eat more healthy food if he has an increase in appetite secondary zyprexa to limit weight gain. He denies winsome, SI/HI, hallucinations. Transfer to [facility] for [facility] treatment due to freq rapid readmission due to med nonc ompliance today. MENTAL STATUS EXAMINATION ON DISCHARGE: General Appearance: disheveled, appears stated age, own clothing Build: overweight Demeanor: lacks interest and motivation, cooperative Eye Contact: fair Activity: slow Behavior: cooperative, psychomotor retardation Speech: limited, non-spontaneous Mood: depressed, flat Mood "ok" Affect: depressed, flat, anhedonic Thought Process: concrete. linear Thought Content (Delusions): denies SI, HI, AVH Thought Content (Other): none reported Thought Content (Aggressive): none reported Perception (Hallucinations): none reported Perception (Other): none reported Cognition (Impairment of): attention/concentration Cognition(Intelligence Est.): borderline Oriented: Awake, Alert, Oriented times three Insight: poor Judgment: Poor Psychosis: none reported MEDICATIONS ON DISCHARGE: trileptal 600mg bid zyprexa 10mg qhs zyprexa 5mg tid seroquel 200mg qhs trazodone 50mg qhs prn insomnia. 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 The amount of time spent in the coordination of care for this patient was approximately 30 minutes. Vital Signs/I&Os Vital Signs Date Time Temp Pulse Resp B/P (MAP) Pulse Ox O2 Delivery O2 Flow Rate FiO2 02/22/19 08:28 139/75 02/22/19 08:28 75 02/22/19 06:47 97.8 16 02/20/19 16:27 100 02/19/19 06:47 Room Air Laboratory Data Labs 24H Laboratory Tests 2 02/21/19 12:09: Bedside Glucose (Misc Panel) 108H 02/21/19 17:10: Bedside Glucose (Misc Panel) 116H 02/21/19 21:27: Bedside Glucose (Misc Panel) 105 02/22/19 06:10: Bedside Glucose (Misc Panel) 100 Medications Scheduled Amlodipine Besylate (Amlodipine Besylate) 10 Mg Tablet, 10 MG PO DAILY, (Reported) Atorvastatin Calcium (Atorvastatin Calcium) 20 Mg Tab, 20 MG PO QHS, (Reported) Benztropine Mesylate (Benztropine Mesylate) 1 Mg Tablet, 1 MG PO DAILY, (Reported) Docusate Sodium (Docusate Sodium) 100 Mg Capsule, 100 MG PO BID, (Reported) Gabapentin (Gabapentin) 600 Mg Tab, 600 MG PO BID, (Reported) Insulin Aspart (Novolog Flexpen) 100 Unit/1 Ml Insuln.pen, 1 UNITS SC TID, (Reported) PER SLIDING SCALE Levothyroxine Sodium (Levothyroxine Sodium) 100 Mcg Tab, 100 MCG PO DAILY, (Reported) Lisinopril (Lisinopril) 20 Mg Tablet, 20 MG PO DAILY, (Reported) Olanzapine (Olanzapine) 15 Mg Tablet, 15 MG PO QPM, (Reported) Oxcarbazepine (Oxcarbazepine) 300 Mg Tablet, 600 MG PO BID, (Reported) Paliperidone Palmitate (Invega Sustenna) 234 Mg/1.5 Ml Syringe, 234 MG IM QMONTH, (Reported) Quetiapine Fumarate (Quetiapine Fumarate) 200 Mg Tablet, 200 MG PO QHS, (Reported) Scheduled PRN Trazodone HCl (Trazodone HCl) 50 Mg Tablet, 50 MG PO QHS PRN for SLEEP, (Reported) Miscellaneous Medications [Patient Comments] , (Reported) NOT ABLE TO OBTAIN LAst TAKEN FROM PT. 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 Allergies Coded Allergies: Penicillins (Verified Allergy, Intermediate, rash, 01/02/19) divalproex sodium (Verified Allergy, Unknown, 01/02/19) CLAIR STEIN DO Feb 22, 2019 10:56 am
[2019-02-26] MEDS ORDERED: PALIPERIDONE PALMITATE 234MG/1.5ML INJ (INVEGA)(J2426)(FREE PSY INPT ONLY) IM SCH (09:00)
== END 2019-02-23 14:55 | DRG 885 ==
LOC: M ED 16:20 → M ED INP 01-31 14:34 → M PSY 01-31 16:20
PROVIDERS: ADMIT Psychiatry & Neurology Psychiatry; ATTEND Psychiatry & Neurology Psychiatry
DX: F31.60 Bipolar disorder, current episode mixed, unspecified (principal); Z79.899 Other long term (current) drug therapy; Z88.0 Allergy status to penicillin; E03.9 Hypothyroidism, unspecified; E11.9 Type 2 diabetes mellitus without complications; I10 Essential (primary) hypertension; Z88.8 Allergy status to other drugs, medicaments and biological substances

== ENCOUNTER 2019-12-11 00:38 | Emergency (ER) | payer MEDICARE, MEDICAID ==
[~2019-12-11] VITALS: Ht 177.8 cm; Wt 100.1 kg
[2019-12-11 00:38] VITALS: BP 147/76
[~2019-12-11 00:38] MED LIST changes: -AMLO10TA5 PO; +AMLO1TAB25 PO; +CYCL-707; +CYCL-707 PO; -CYCL10TA; -CYCL10TA PO; -FLUO20CA19 PO; +FLUO20CA22 PO; -FLUP10TA PO; +FLUP10TA11 PO; -LORA0.5T11 PO; +LORA0.5T5 PO; -LORA1TAB12 PO; +LORA1TAB4 PO; +OLAN15TA PO
[2019-12-11] MEDS ORDERED: DOXY100C (00:55)
[2019-12-11] MEDS ORDERED: LORA2TAB14 (00:55)
[2019-12-11] MEDS ORDERED: VITA200016 PO (00:55)
[2019-12-11] MEDS ORDERED: METF10004 (00:55)
[2019-12-11] MEDS ORDERED: HALO10AM (00:55)
[2019-12-11] MEDS ORDERED: TAMS1CAP17 (00:55)
[2019-12-11] MEDS ORDERED: LAMO200T3 (00:55)
[2019-12-11] MEDS ORDERED: IBUP-1022 PO (01:38)
[2019-12-11] MEDS ORDERED: KETOROLAC 60MG 2ML VIAL IM ONE (01:45)
== END 2019-12-11 02:00 | disposition home or self-care (01) ==
LOC: M ED 00:38
DX: K08.89 Other specified disorders of teeth and supporting structures (principal); E11.9 Type 2 diabetes mellitus without complications; I25.10 Atherosclerotic heart disease of native coronary artery without angina pectoris; I10 Essential (primary) hypertension; E78.5 Hyperlipidemia, unspecified; E03.9 Hypothyroidism, unspecified; Z88.8 Allergy status to other drugs, medicaments and biological substances; Z88.0 Allergy status to penicillin; Z91.040 Latex allergy status; Z79.899 Other long term (current) drug therapy
CPT/HCPCS: 96372; 99282; J1885

== ENCOUNTER 2019-12-13 21:48 | Emergency (ER) | payer MEDICARE, MEDICAID ==
[~2019-12-13] VITALS: Ht 177.8 cm; Wt 101.2 kg
[2019-12-13 21:48] VITALS: BP 137/86
[~2019-12-13 21:48] MED LIST changes: +DOXY100C; +HALO10AM; +LAMO200T3; +LORA2TAB14; +METF10004; +TAMS1CAP17; +VITA200016 PO
[2019-12-13] MEDS ORDERED: benzotropine PO (22:06)
[2019-12-13] MEDS ORDERED: LAMI1SPR PO (22:06)
[2019-12-13] MEDS ORDERED: FLON1SPR NARES (22:06)
[2019-12-14] MEDS ORDERED: NORCO 5/325MG TABLET (BULK FOR ED) PO ONE (00:30)
== END 2019-12-14 00:41 | disposition home or self-care (01) ==
LOC: M ED 21:48
DX: K08.89 Other specified disorders of teeth and supporting structures (principal); I48.91 Unspecified atrial fibrillation; I10 Essential (primary) hypertension; J45.909 Unspecified asthma, uncomplicated; Z88.0 Allergy status to penicillin; Z91.040 Latex allergy status; Z79.899 Other long term (current) drug therapy

== ENCOUNTER 2019-12-16 00:08 | Emergency (ER) | payer MEDICARE, MEDICAID ==
[~2019-12-16] VITALS: Ht 177.8 cm; Wt 95.5 kg
[2019-12-16 00:08] VITALS: BP 154/85
[~2019-12-16 00:08] MED LIST changes: +FLON1SPR NARES; +LAMI1SPR PO; +benzotropine PO
[2019-12-16 01:32] LABS: BASO # 0.1 10^3/uL (0.0-0.2); BASO % 0.5 % (0.0-1.0); EOS # 0.5 10^3/uL (0.0-0.5); EOS % 4.7 % (0.0-3.0); HEMATOCRIT 40.3 % (42.0-52.0); HEMOGLOBIN 13.4 g/dl (13.5-17.5); LYMPH # 2.3 10^3/uL (1.5-5.0); MEAN CORPUSCULAR HEMOGLOBIN 29.1 pg (27.0-33.0); MEAN CORPUSCULAR HGB CONC 33.3 g/dl (32.0-36.5); MEAN CORPUSCULAR VOLUME 87.6 fl (80.0-96.0); MONO # 0.9 10^3/uL (0.0-0.8); MONO % 8.2 % (0.0-5.0); NEUTROPHILS # 6.8 10^3/uL (1.5-8.5); NEUTROPHILS % 62.8 % (36.0-66.0); PLATELET COUNT, AUTOMATED 271 10^3/uL (150-450); WHITE BLOOD COUNT 10.8 10^3/uL (4.0-10.0)
[2019-12-16] MEDS ORDERED: CLINDAMYCIN 150MG CAPSULE PO ONE (01:45)
[2019-12-16] MEDS ORDERED: CLEO150C PO (01:45)
[2019-12-16] MEDS ORDERED: KETOROLAC 60MG 2ML VIAL IM ONE (01:45)
[2019-12-16 02:14] LABS: ERYTHROCYTE SEDIMENTATION RATE 5 mm/hr (0-20)
== END 2019-12-16 02:00 | disposition home or self-care (01) ==
LOC: M ED 00:08
DX: K04.7 Periapical abscess without sinus (principal); E11.9 Type 2 diabetes mellitus without complications; I10 Essential (primary) hypertension; I48.91 Unspecified atrial fibrillation; J45.909 Unspecified asthma, uncomplicated; F31.9 Bipolar disorder, unspecified; Z88.0 Allergy status to penicillin; Z91.040 Latex allergy status; Z79.84 Long term (current) use of oral hypoglycemic drugs; Z79.899 Other long term (current) drug therapy
CPT/HCPCS: 36415; 85025; 85652; 86140; 96372; 99282; J1885

== ENCOUNTER → 2019-12-29 | Outpatient (CLI) | payer MEDICARE, MEDICAID ==
[~2019-12-29] MED LIST changes: +ACET-683 PO; +CLEO150C PO
[2019-12-29 11:50] LABS: BASO # 0.1 10^3/uL (0.0-0.2); BASO % 0.7 % (0.0-1.0); EOS # 0.5 10^3/uL (0.0-0.5); EOS % 5.1 % (0.0-3.0); HEMOGLOBIN 14.8 g/dl (13.5-17.5); LYMPH # 1.8 10^3/uL (1.5-5.0); LYMPH % 19.4 % (24.0-44.0); MEAN CORPUSCULAR HEMOGLOBIN 28.8 pg (27.0-33.0); MEAN CORPUSCULAR HGB CONC 32.9 g/dl (32.0-36.5); MEAN CORPUSCULAR VOLUME 87.5 fl (80.0-96.0); MONO # 0.7 10^3/uL (0.0-0.8); MONO % 7.7 % (0.0-5.0); NEUTROPHILS # 5.7 10^3/uL (1.5-8.5); NEUTROPHILS % 62.7 % (36.0-66.0); PLATELET COUNT, AUTOMATED 279 10^3/uL (150-450); RED BLOOD COUNT 5.14 10^6/uL (4.30-6.10); WHITE BLOOD COUNT 9.1 10^3/uL (4.0-10.0)
[2019-12-29 12:09] LABS: CREATININE, URINE 91.2 MG/DL; MALB URINE SIEMENS 7.4 MG/L; MAU/CREAT RATIO 8.1 MCG/MG (0.0-30.0)
[2019-12-29 12:38] LABS: HEMOGLOBIN A1c 5.6 %
[2019-12-29 13:47] LABS: ALBUMIN 3.4 GM/DL (3.2-5.2); ALT/SGPT 28 U/L (12-78); BILIRUBIN,TOTAL 0.4 MG/DL (0.2-1.0); BLOOD UREA NITROGEN 16 MG/DL (7-18); CARBON DIOXIDE LEVEL 26 MEQ/L (21-32); CHLORIDE LEVEL 105 MEQ/L (98-107); CHOLESTEROL LEVEL 162 MG/DL (<200); CHOLESTEROL RISK RATIO 2.454 (<5); CREATININE FOR GFR 0.69 MG/DL (0.70-1.30); GLOMERULAR FILTRATION RATE > 60.0 (>56); GLUCOSE, FASTING 108 MG/DL (70-100); HDL CHOLESTEROL 66 MG/DL (>40); LDL CHOLESTEROL 76 MG/DL (<100); NON-HDL-C 96 MG/DL; POTASSIUM SERUM 3.9 MEQ/L (3.5-5.1); SODIUM LEVEL 138 MEQ/L (136-145); TOTAL PROTEIN 6.8 GM/DL (6.4-8.2); TRIGLYCERIDES LEVEL 98 MG/DL (<150)
== END ==
LOC: M LAB 09:39
PROVIDERS: ATTEND Family Medicine
DX: E78.00 Pure hypercholesterolemia, unspecified (principal); E66.9 Obesity, unspecified; E11.69 Type 2 diabetes mellitus with other specified complication

== ENCOUNTER 2020-01-16 03:46 | Emergency (ER) | payer MEDICARE, MEDICAID ==
[~2020-01-16] VITALS: Ht 177.8 cm; Wt 109.1 kg
[~2020-01-16 03:46] MED LIST changes: -ACET-683 PO
[2020-01-16] MEDS ORDERED: ACET-683 PO (04:09)
[2020-01-16] MEDS ORDERED: KETOROLAC 30 MG/ML 1ML VIAL IM ONE (04:45)
[2020-01-16 05:31] VITALS: BP 134/78
== END 2020-01-16 05:34 | disposition home or self-care (01) ==
LOC: M ED 03:46
DX: M26.622 Arthralgia of left temporomandibular joint (principal); I25.10 Atherosclerotic heart disease of native coronary artery without angina pectoris; E11.9 Type 2 diabetes mellitus without complications; I10 Essential (primary) hypertension; E03.9 Hypothyroidism, unspecified; Z88.1 Allergy status to other antibiotic agents; Z91.040 Latex allergy status; Z79.899 Other long term (current) drug therapy
CPT/HCPCS: 96372; 99283; J1885

== ENCOUNTER → 2020-04-05 | Outpatient (CLI) | payer MEDICARE, MEDICAID ==
[~2020-04-05] MED LIST changes: +ACET-683 PO
[2020-04-05 11:39] LABS: HEMOGLOBIN A1c 6.4 %
[2020-04-05 11:50] LABS: ALT/SGPT 34 U/L (12-78); BILIRUBIN,TOTAL 0.5 MG/DL (0.2-1.0); BLOOD UREA NITROGEN 11 MG/DL (7-18); CALCIUM LEVEL 8.4 MG/DL (8.5-10.1); CARBON DIOXIDE LEVEL 31 MEQ/L (21-32); CHLORIDE LEVEL 104 MEQ/L (98-107); CREATININE FOR GFR 0.87 MG/DL (0.70-1.30); GLOMERULAR FILTRATION RATE > 60.0 (>56); GLUCOSE, FASTING 131 MG/DL (70-100); SODIUM LEVEL 139 MEQ/L (136-145); TOTAL PROTEIN 7.2 GM/DL (6.4-8.2)
== END ==
LOC: M LAB 10:35
PROVIDERS: ATTEND Family Medicine
DX: E66.9 Obesity, unspecified (principal); E11.69 Type 2 diabetes mellitus with other specified complication

== ENCOUNTER 2020-04-22 00:58 | Emergency (ER) | payer MEDICARE, MEDICAID ==
[~2020-04-22] VITALS: Ht 177.8 cm; Wt 120.5 kg
[2020-04-22] MEDS ORDERED: SING10TA32 PO (01:17)
[2020-04-22] MEDS ORDERED: NS 1,000 ML IV ONE (01:45)
[2020-04-22] MEDS ORDERED: GI COCKTAIL 50ML BTL(HYOSCYAMINE/MAALOX/LIDOCAINE VISCOUS)(1:3:1) PO ONE (01:45)
[2020-04-22] MEDS ORDERED: PANTOPRAZOLE 40MG VIAL (C9113 PER 1) IV ONE (01:45)
[2020-04-22 01:56] LABS: BASO # 0.1 10^3/uL (0.0-0.2); BASO % 0.6 % (0.0-1.0); EOS # 0.6 10^3/uL (0.0-0.5); EOS % 5.4 % (0.0-3.0); HEMATOCRIT 45.9 % (42.0-52.0); HEMOGLOBIN 14.8 g/dl (13.5-17.5); LYMPH # 2.3 10^3/uL (1.5-5.0); LYMPH % 22.3 % (24.0-44.0); MEAN CORPUSCULAR HEMOGLOBIN 27.4 pg (27.0-33.0); MEAN CORPUSCULAR HGB CONC 32.2 g/dl (32.0-36.5); MONO # 0.9 10^3/uL (0.0-0.8); MONO % 8.1 % (0.0-5.0); NEUTROPHILS # 6.5 10^3/uL (1.5-8.5); PLATELET COUNT, AUTOMATED 273 10^3/uL (150-450); WHITE BLOOD COUNT 10.5 10^3/uL (4.0-10.0)
--- NOTE | 2020-04-22 02:39 | REPVR ---
PROCEDURE INFORMATION: Exam: XR Chest, 2 Views Exam date and time: 04/22/2020 2:00 AM Age: 49 years old Clinical indication: Shortness of breath; Additional info: SOB, weird feeling central chest TECHNIQUE: Imaging protocol: XR of the chest Views: 2 views. COMPARISON: [facility] PORTABLE CHEST X-RAY 2018-12-10 09:52 FINDINGS: Limitations: Limited by patient's body habitus. Lungs: Unremarkable. No consolidation. Pleural space: Unremarkable. No pleural effusion. No pneumothorax. Heart/Mediastinum: Unremarkable. No cardiomegaly. Bones/joints: Unremarkable. IMPRESSION: No acute findings. Electronically signed by: Aung Jackson On 04/22/2020 02:39:38 AM
[2020-04-22 02:47] LABS: BLOOD UREA NITROGEN 13 MG/DL (7-18); CALCIUM LEVEL 8.5 MG/DL (8.5-10.1); CARBON DIOXIDE LEVEL 27 MEQ/L (21-32); CHLORIDE LEVEL 103 MEQ/L (98-107); CK-MB VALUE MASS 1.8 NG/ML (<3.6); CPK CREATINE PHOSPHOKINASE 137 U/L (39-308); CREATININE FOR GFR 0.84 MG/DL (0.70-1.30); GLOMERULAR FILTRATION RATE > 60.0 (>56); GLUCOSE, FASTING 137 MG/DL (70-100); MB/CK RELATIVE INDEX 1.31 (< OR =4); POTASSIUM SERUM 3.8 MEQ/L (3.5-5.1); SODIUM LEVEL 138 MEQ/L (136-145); TROPONIN I < 0.02 NG/ML (< 0.10)
[2020-04-22] MEDS ORDERED: OMEP40CA97 PO (02:59)
[2020-04-22] MEDS ORDERED: TESS100C PO (02:59)
[2020-04-22 03:00] VITALS: BP 128/77
[2020-04-22] MEDS ORDERED: BENZONATATE 100 MG CAP PO ONE (03:00)
[2020-04-23] MEDS ORDERED: KETO10TAB PO (03:50)
--- NOTE | 2020-04-23 06:04 | ECGEPIP ---
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
== END 2020-04-22 03:15 | disposition home or self-care (01) ==
LOC: M ED 00:58
DX: K21.9 Gastro-esophageal reflux disease without esophagitis (principal); R05 Cough; Z72.89 Other problems related to lifestyle; M25.562 Pain in left knee; M54.30 Sciatica, unspecified side; R68.84 Jaw pain; R23.2 Flushing; I10 Essential (primary) hypertension; I48.91 Unspecified atrial fibrillation; J45.909 Unspecified asthma, uncomplicated; F20.9 Schizophrenia, unspecified; F31.9 Bipolar disorder, unspecified; Z88.0 Allergy status to penicillin; Z91.040 Latex allergy status
CPT/HCPCS: 71046; 80048; 82550; 82553; 84484; 85025; 93005; 93041; 96361; 96374; 99284; C9113

== ENCOUNTER 2020-04-23 00:13 | Emergency (ER) | payer MEDICARE, MEDICAID ==
[~2020-04-23] VITALS: Ht 177.8 cm; Wt 121.1 kg
[~2020-04-23 00:13] MED LIST changes: +OMEP40CA97 PO; +SING10TA32 PO; +TESS100C PO
[2020-04-23] MEDS ORDERED: KETOROLAC 60MG 2ML VIAL IM ONE (02:15)
--- NOTE | 2020-04-23 02:22 | REPVR ---
PROCEDURE INFORMATION: Exam: XR Chest, 1 View Exam date and time: 04/23/2020 2:18 AM Age: 49 years old Clinical indication: Shortness of breath TECHNIQUE: Imaging protocol: XR of the chest Views: 1 view. COMPARISON: CR Chest, 2 view PA, Lat 04/22/2020 1:50 AM FINDINGS: Lungs: Unremarkable. No consolidation. No pulmonary edema. Pleural space: Unremarkable. No pleural effusion or pneumothorax is identified. Heart/Mediastinum: Unremarkable. No cardiomegaly. Bones/joints: Unremarkable. IMPRESSION: No acute findings. Electronically signed by: Claude Del Rio On 04/23/2020 02:23:28 AM
[2020-04-23 02:58] LABS: BASO # 0.1 10^3/uL (0.0-0.2); BASO % 0.7 % (0.0-1.0); EOS # 0.6 10^3/uL (0.0-0.5); EOS % 5.5 % (0.0-3.0); HEMATOCRIT 43.8 % (42.0-52.0); HEMOGLOBIN 14.3 g/dl (13.5-17.5); LYMPH % 19.4 % (24.0-44.0); MEAN CORPUSCULAR HEMOGLOBIN 27.7 pg (27.0-33.0); MEAN CORPUSCULAR HGB CONC 32.6 g/dl (32.0-36.5); MEAN CORPUSCULAR VOLUME 84.7 fl (80.0-96.0); MONO # 0.8 10^3/uL (0.0-0.8); MONO % 7.9 % (0.0-5.0); NEUTROPHILS # 6.7 10^3/uL (1.5-8.5); NEUTROPHILS % 65.3 % (36.0-66.0); PLATELET COUNT, AUTOMATED 252 10^3/uL (150-450); RED BLOOD COUNT 5.17 10^6/uL (4.30-6.10); WHITE BLOOD COUNT 10.2 10^3/uL (4.0-10.0)
[2020-04-23 03:34] LABS: RSV AMPLIFICATION NEGATIVE (NEGATIVE)
[2020-04-23] MEDS ORDERED: KETO10TAB PO (03:50)
[2020-04-23 04:00] VITALS: BP 141/88
== END 2020-04-23 04:36 | disposition home or self-care (01) ==
LOC: M ED 00:13
DX: M26.602 Left temporomandibular joint disorder, unspecified (principal); R05 Cough; R06.02 Shortness of breath; E11.9 Type 2 diabetes mellitus without complications; I10 Essential (primary) hypertension; E03.9 Hypothyroidism, unspecified; Z88.1 Allergy status to other antibiotic agents; Z91.040 Latex allergy status; Z79.899 Other long term (current) drug therapy
CPT/HCPCS: 71045; 80047; 85025; 87631; 96372; 99284; J1885

== ENCOUNTER 2020-08-02 11:24 | Emergency (ER) | payer MEDICARE, MEDICAID ==
[~2020-08-02] VITALS: Ht 177.8 cm; Wt 118.5 kg
[~2020-08-02 11:24] MED LIST changes: +GABA-282 PO; -GABA-843 PO; +KETO10TAB PO; -LISI-538 PO; -LISI-542 PO; +LISI-898 PO; +LISI10TA22 PO; -LISI10TA4 PO; +LISI20TA33 PO; +QUET50TA3 PO; -QUET5TAB PO
[2020-08-02] MEDS ORDERED: AMBI5TAB PO (13:39)
[2020-08-02 14:52] VITALS: BP 111/71
== END 2020-08-02 14:54 | disposition home or self-care (01) ==
LOC: M ED 11:24
DX: F41.9 Anxiety disorder, unspecified (principal); G47.00 Insomnia, unspecified; E11.9 Type 2 diabetes mellitus without complications; I10 Essential (primary) hypertension; Z88.0 Allergy status to penicillin; Z91.040 Latex allergy status; Z79.899 Other long term (current) drug therapy

== ENCOUNTER → 2020-08-23 | Outpatient (CLI) | payer MEDICARE, MEDICAID ==
[2020-08-23 11:03] LABS: BASO # 0.1 10^3/uL (0.0-0.2); BASO % 0.6 % (0.0-1.0); EOS # 0.5 10^3/uL (0.0-0.5); EOS % 4.5 % (0.0-3.0); HEMATOCRIT 42.4 % (42.0-52.0); LYMPH # 1.7 10^3/uL (1.5-5.0); LYMPH % 16.5 % (24.0-44.0); MEAN CORPUSCULAR HEMOGLOBIN 27.8 pg (27.0-33.0); MEAN CORPUSCULAR VOLUME 84.1 fl (80.0-96.0); MONO # 0.8 10^3/uL (0.0-0.8); MONO % 8.2 % (2.0-8.0); NEUTROPHILS % 69.4 % (36.0-66.0); PLATELET COUNT, AUTOMATED 275 10^3/uL (150-450); RED BLOOD COUNT 5.04 10^6/uL (4.30-6.10); WHITE BLOOD COUNT 10.1 10^3/uL (4.0-10.0)
[2020-08-23 11:04] LABS: APPEARANCE, URINE CLEAR (CLEAR); BACTERIA, URINE AUTO NEGATIVE (NEGATIVE); BILIRUBIN, URINE AUTO NEGATIVE (NEGATIVE); BLOOD, URINE BLOOD NEGATIVE (NEGATIVE); COLOR, URINE YELLOW (YELLOW); GLUCOSE, URINE (UA) AUTO NEGATIVE (NEGATIVE); KETONE, URINE AUTO NEGATIVE (NEGATIVE); LEUKOCYTE ESTERASE, URINE AUTO NEGATIVE (NEGATIVE); NITRITE, URINE AUTO NEGATIVE (NEGATIVE); PROTEIN, URINE AUTO NEGATIVE (NEGATIVE); RBC, URINE AUTO 1 /HPF (0-3); SQUAMOUS EPITHELIAL CELL UR AU 0 /HPF (0-6); UROBILINOGEN, URINE AUTO 0.2 mg/dL (0.0-2.0); WBC, URINE AUTO 0 /HPF (0-3)
[2020-08-23 11:36] LABS: CREATININE, URINE 56.2 MG/DL; MALB URINE SIEMENS 8.5 MG/L; MAU/CREAT RATIO 15.1 MCG/MG (0.0-30.0)
[2020-08-23 11:45] LABS: ALBUMIN 3.9 GM/DL (3.2-5.2); ALT/SGPT 46 U/L (12-78); BILIRUBIN,TOTAL 0.7 MG/DL (0.2-1.0); BLOOD UREA NITROGEN 12 MG/DL (7-18); CALCIUM LEVEL 8.4 MG/DL (8.5-10.1); CARBON DIOXIDE LEVEL 27 MEQ/L (21-32); CHLORIDE LEVEL 102 MEQ/L (98-107); CHOLESTEROL LEVEL 146 MG/DL (<200); CHOLESTEROL RISK RATIO 2.561 (<5); CREATININE FOR GFR 0.57 MG/DL (0.70-1.30); GLOMERULAR FILTRATION RATE > 60.0 (>56); GLUCOSE, FASTING 149 MG/DL (70-100); HDL CHOLESTEROL 57 MG/DL (>40); LDL CHOLESTEROL 62 MG/DL (<100); NON-HDL-C 89 MG/DL; POTASSIUM SERUM 3.8 MEQ/L (3.5-5.1); SODIUM LEVEL 135 MEQ/L (136-145); TOTAL PROTEIN 6.9 GM/DL (6.4-8.2); TRIGLYCERIDES LEVEL 135 MG/DL (<150)
[2020-08-23 12:49] LABS: HEMOGLOBIN A1c 6.5 %
== END ==
LOC: M LAB 09:09
PROVIDERS: ATTEND Family Medicine
DX: E11.69 Type 2 diabetes mellitus with other specified complication (principal)

== ENCOUNTER 2020-10-07 10:47 | Emergency (ER) | payer MEDICARE, MEDICAID ==
[~2020-10-07] VITALS: Ht 177.8 cm; Wt 119.6 kg
[~2020-10-07 10:47] MED LIST changes: +GABA-283 PO; -GABA-845 PO; -LAMO200T3; +LAMO200T3 PO; +OMEP40CA4 PO; -OMEP40CA97 PO; -TAMS1CAP17; +TAMS1CAP17 PO
[2020-10-07] MEDS ORDERED: TRAZ-257 PO (11:54)
[2020-10-07] MEDS ORDERED: INGR80CA PO (11:54)
[2020-10-07 12:13] LABS: HEMATOCRIT 44.6 % (42.0-52.0); HEMOGLOBIN 14.6 g/dl (13.5-17.5); MEAN CORPUSCULAR HEMOGLOBIN 27.9 pg (27.0-33.0); MEAN CORPUSCULAR HGB CONC 32.7 g/dl (32.0-36.5); MEAN CORPUSCULAR VOLUME 85.3 fl (80.0-96.0); PLATELET COUNT, AUTOMATED 290 10^3/uL (150-450); RED BLOOD COUNT 5.23 10^6/uL (4.30-6.10); WHITE BLOOD COUNT 10.9 10^3/uL (4.0-10.0)
[2020-10-07 12:36] LABS: AMPHETAMINES LEVEL URINE NEGATIVE (NEGATIVE); BARBITURATES URINE NEGATIVE (NEGATIVE); BENZODIAZEPINES URINE NEGATIVE (NEGATIVE); CANNABINOIDS URINE NEGATIVE (NEGATIVE); COCAINE METABOLITE URINE NEGATIVE (NEGATIVE); METHADONE URINE NEGATIVE (NEGATIVE); OPIATES URINE NEGATIVE (NEGATIVE); PHENCYCLIDINE URINE NEGATIVE (NEGATIVE)
[2020-10-07 12:47] LABS: ACETAMINOPHEN LEVEL < 2.0 UG/ML (10.0-30.0); ALBUMIN 3.7 GM/DL (3.2-5.2); ALT/SGPT 33 U/L (12-78); BILIRUBIN,DIRECT 0.1 MG/DL (0.0-0.2); BILIRUBIN,TOTAL 0.3 MG/DL (0.2-1.0); BLOOD UREA NITROGEN 16 MG/DL (7-18); CALCIUM LEVEL 8.8 MG/DL (8.5-10.1); CARBON DIOXIDE LEVEL 31 MEQ/L (21-32); CHLORIDE LEVEL 103 MEQ/L (98-107); CREATININE FOR GFR 0.77 MG/DL (0.70-1.30); ETHYL ALCOHOL (ETHANOL) < 0.003 % (0.000-0.010); GLOMERULAR FILTRATION RATE > 60.0 (>56); GLUCOSE, FASTING 251 MG/DL (70-100); POTASSIUM SERUM 3.8 MEQ/L (3.5-5.1); SALICYLATE LEVEL < 1.7 MG/DL (5.0-30.0); SODIUM LEVEL 138 MEQ/L (136-145); TOTAL PROTEIN 7.3 GM/DL (6.4-8.2)
[2020-10-07] MEDS ORDERED: PROPRANOLOL 10 MG TAB PO ONE (16:55)
[2020-10-07] MEDS ORDERED: PROP10TA56 PO (16:56)
[2020-10-07 17:04] VITALS: BP 138/94
[2020-10-07 17:23] VITALS: BP 149/90
== END 2020-10-07 17:26 | disposition home or self-care (01) ==
LOC: M ED 10:47
DX: G24.01 Drug induced subacute dyskinesia (principal); G25.9 Extrapyramidal and movement disorder, unspecified; I48.91 Unspecified atrial fibrillation; E11.9 Type 2 diabetes mellitus without complications; I10 Essential (primary) hypertension; E78.5 Hyperlipidemia, unspecified; Z88.0 Allergy status to penicillin; Z91.040 Latex allergy status; Z88.8 Allergy status to other drugs, medicaments and biological substances

== ENCOUNTER → 2020-10-09 | Outpatient (REF) | payer MEDICARE, MEDICAID ==
[~2020-10-09] MED LIST changes: +INGR80CA PO; +PROP10TA56 PO; +TRAZ-257 PO
[2020-10-09 14:50] LABS: APPEARANCE, URINE CLEAR (CLEAR); BACTERIA, URINE AUTO NEGATIVE (NEGATIVE); BILIRUBIN, URINE AUTO NEGATIVE (NEGATIVE); BLOOD, URINE BLOOD NEGATIVE (NEGATIVE); COLOR, URINE YELLOW (YELLOW); GLUCOSE, URINE (UA) AUTO 1+ mg/dL (NEGATIVE); KETONE, URINE AUTO NEGATIVE (NEGATIVE); LEUKOCYTE ESTERASE, URINE AUTO NEGATIVE (NEGATIVE); MUCUS, URINE SMALL (NEGATIVE); NITRITE, URINE AUTO NEGATIVE (NEGATIVE); PROTEIN, URINE AUTO NEGATIVE (NEGATIVE); RBC, URINE AUTO 0 /HPF (0-3); SPECIFIC GRAVITY URINE AUTO 1.019 (1.002-1.035); SQUAMOUS EPITHELIAL CELL UR AU 0 /HPF (0-6); UROBILINOGEN, URINE AUTO 0.2 mg/dL (0.0-2.0); WBC, URINE AUTO 0 /HPF (0-3)
== END ==
LOC: M LAB REF 13:23
PROVIDERS: ATTEND Physician Assistant
DX: N39.0 Urinary tract infection, site not specified (principal)

== ENCOUNTER 2020-11-16 20:37 | Emergency (ER) | payer MEDICARE, MEDICAID ==
[~2020-11-16] VITALS: Ht 177.8 cm; Wt 119.5 kg
[~2020-11-16 20:37] MED LIST changes: -HALO10AM; +HALO10AM PO; -METF10004; -OLAN10TA2 PO; -OLAN15TA PO; +OLAN15TA13 PO; +OLAN1TAB20 PO; -OLAN7.5T PO; +OLAN7.5T8 PO
[2020-11-17] MEDS ORDERED: diphenhydrAMINE 50MG CAP PO ONE (00:20)
[2020-11-17] MEDS ORDERED: ACETAMINOPHEN TAB 650MG DOSE (2X325MG) PO ONE (00:20)
[2020-11-17 00:23] VITALS: BP 159/98
[2020-11-17] MEDS ORDERED: holter monitor (17:26)
[2020-11-17] MEDS ORDERED: LORA1TAB4 PO (23:07)
[2020-11-17] MEDS ORDERED: ATOR40TA75 PO (23:17)
[2020-11-17] MEDS ORDERED: PROP10TA56 PO (23:17)
[2020-11-17] MEDS ORDERED: LOSA50TA88 PO (23:20)
[2020-11-17] MEDS ORDERED: OXYB5TAB10 PO (23:20)
[2020-11-17] MEDS ORDERED: MED REC COMMENT (23:22)
== END 2020-11-17 00:30 | disposition home or self-care (01) ==
LOC: M ED 20:37
DX: R30.0 Dysuria (principal); G89.29 Other chronic pain; M54.9 Dorsalgia, unspecified; M79.2 Neuralgia and neuritis, unspecified; Z88.0 Allergy status to penicillin; Z91.040 Latex allergy status; Z79.899 Other long term (current) drug therapy

== ENCOUNTER 2020-11-17 14:56 | Emergency (ER) | payer MEDICARE, MEDICAID ==
[~2020-11-17 14:56] MED LIST changes: -DOXY100C; +DOXY100C3; -LISI-898 PO; +LISI5TAB11 PO; -QUET50TA3 PO; +QUET50TA4 PO
[2020-11-17 14:57] VITALS: BP 170/92
[2020-11-17 15:58] LABS: HEMATOCRIT 45.7 % (42.0-52.0); HEMOGLOBIN 15.4 g/dl (13.5-17.5); MEAN CORPUSCULAR HGB CONC 33.7 g/dl (32.0-36.5); MEAN CORPUSCULAR VOLUME 83.1 fl (80.0-96.0); PLATELET COUNT, AUTOMATED 337 10^3/uL (150-450); WHITE BLOOD COUNT 11.8 10^3/uL (4.0-10.0)
[2020-11-17 16:35] LABS: BLOOD UREA NITROGEN 12 MG/DL (7-18); CALCIUM LEVEL 8.7 MG/DL (8.5-10.1); CARBON DIOXIDE LEVEL 25 MEQ/L (21-32); CHLORIDE LEVEL 103 MEQ/L (98-107); CREATININE FOR GFR 0.84 MG/DL (0.70-1.30); FREE THYROXINE INDEX 4.4 % (1.4-3.8); GLOMERULAR FILTRATION RATE > 60.0 (>56); GLUCOSE, FASTING 159 MG/DL (70-100); POTASSIUM SERUM 5.8 MEQ/L (3.5-5.1); SODIUM LEVEL 135 MEQ/L (136-145); T UPTAKE 32 % (33-40); THYROXINE (T4) 13.6 UG/DL (4.5-12.0)
[2020-11-17] MEDS ORDERED: holter monitor (17:26)
[2020-11-17] MEDS ORDERED: LORA1TAB4 PO (23:07)
[2020-11-17] MEDS ORDERED: PROP10TA56 PO (23:17)
[2020-11-17] MEDS ORDERED: ATOR40TA75 PO (23:17)
[2020-11-17] MEDS ORDERED: OXYB5TAB10 PO (23:20)
[2020-11-17] MEDS ORDERED: LOSA50TA28 PO (23:20)
[2020-11-17] MEDS ORDERED: MED REC COMMENT (23:22)
[2020-11-19 13:10] LABS: Lyme Disease IgG/IgM Antibodie <0.91 ISR (0.00-0.90); Lyme Disease IgM Ab Quantitati <0.80 index (0.00-0.79)
[2021-01-30] MEDS ORDERED: OMEP-173 PO (08:15)
[2021-01-31] MEDS ORDERED: HALO5TAB33 PO (08:41)
== END 2020-11-17 18:25 | disposition home or self-care (01) ==
LOC: M ED 14:56 → EDBD 14:56 → EDSEX 14:56 → M ED 18:25
DX: R00.2 Palpitations (principal); I10 Essential (primary) hypertension; J45.909 Unspecified asthma, uncomplicated; E78.5 Hyperlipidemia, unspecified; E03.9 Hypothyroidism, unspecified; F31.9 Bipolar disorder, unspecified; Z88.0 Allergy status to penicillin; Z91.040 Latex allergy status; Z79.899 Other long term (current) drug therapy

== ENCOUNTER 2020-11-17 21:18 | Inpatient (IN) | payer MEDICARE, MEDICAID ==
[~2020-11-17] VITALS: Ht 177.8 cm; Wt 121.6 kg
[~2020-11-17 21:18] MED LIST changes: +LISI-898 PO; -LISI5TAB11 PO; +holter monitor
[2020-11-17 22:28] LABS: HEMATOCRIT 44.8 % (42.0-52.0); HEMOGLOBIN 15.6 g/dl (13.5-17.5); MEAN CORPUSCULAR HEMOGLOBIN 28.6 pg (27.0-33.0); MEAN CORPUSCULAR HGB CONC 34.8 g/dl (32.0-36.5); MEAN CORPUSCULAR VOLUME 82.1 fl (80.0-96.0); PLATELET COUNT, AUTOMATED 295 10^3/uL (150-450); RED BLOOD COUNT 5.46 10^6/uL (4.30-6.10); WHITE BLOOD COUNT 12.9 10^3/uL (4.0-10.0)
[2020-11-17] MEDS ORDERED: LORA1TAB4 PO (23:07)
[2020-11-17 23:14] LABS: ACETAMINOPHEN LEVEL < 2.0 UG/ML (10.0-30.0); ALBUMIN 4.3 GM/DL (3.2-5.2); ALT/SGPT 42 U/L (12-78); BILIRUBIN,DIRECT 0.2 MG/DL (0.0-0.2); BILIRUBIN,TOTAL 0.6 MG/DL (0.2-1.0); BLOOD UREA NITROGEN 11 MG/DL (7-18); CALCIUM LEVEL 8.6 MG/DL (8.5-10.1); CARBON DIOXIDE LEVEL 26 MEQ/L (21-32); CHLORIDE LEVEL 104 MEQ/L (98-107); CREATININE FOR GFR 0.73 MG/DL (0.70-1.30); ETHYL ALCOHOL (ETHANOL) < 0.003 % (0.000-0.010); GLOMERULAR FILTRATION RATE > 60.0 (>56); GLUCOSE, FASTING 160 MG/DL (70-100); POTASSIUM SERUM 3.3 MEQ/L (3.5-5.1); SALICYLATE LEVEL < 1.7 MG/DL (5.0-30.0); SODIUM LEVEL 138 MEQ/L (136-145); TOTAL PROTEIN 7.3 GM/DL (6.4-8.2)
[2020-11-17] MEDS ORDERED: ATOR40TA75 PO (23:17)
[2020-11-17] MEDS ORDERED: PROP10TA56 PO (23:17)
[2020-11-17] MEDS ORDERED: LOSA50TA88 PO (23:20)
[2020-11-17] MEDS ORDERED: OXYB5TAB10 PO (23:20)
[2020-11-17] MEDS ORDERED: MED REC COMMENT (23:22)
[2020-11-17] MEDS ORDERED: HOME MED LIST COMPLETE! XX SCH (23:25)
[2020-11-18] MEDS ORDERED: OLANZapine ORAL DISINTEGRATING TAB 5MG PO ONE (01:50)
[2020-11-18 02:40] LABS: AMPHETAMINES LEVEL URINE NEGATIVE (NEGATIVE); BARBITURATES URINE NEGATIVE (NEGATIVE); BENZODIAZEPINES URINE NEGATIVE (NEGATIVE); CANNABINOIDS URINE NEGATIVE (NEGATIVE); COCAINE METABOLITE URINE NEGATIVE (NEGATIVE); METHADONE URINE NEGATIVE (NEGATIVE); OPIATES URINE NEGATIVE (NEGATIVE); PHENCYCLIDINE URINE NEGATIVE (NEGATIVE)
[2020-11-18] MEDS: BENZTROPINE 1 MG TAB PO SCH ×2 (09:00→21:40)
[2020-11-18 09:30] LABS: RSV AMPLIFICATION NEGATIVE (NEGATIVE)
[2020-11-18] MEDS ORDERED: metFORMIN (GLUCOPHAGE) 1000 MG TABLET PO ONE (10:35)
[2020-11-18] MEDS ORDERED: ACETAMINOPHEN TAB 650MG DOSE (2X325MG) PO ONE (10:35)
[2020-11-18] MEDS ORDERED: DOCUSATE SODIUM 100MG CAPSULE PO ONE (10:35)
[2020-11-18] MEDS ORDERED: LOSARTAN 50MG TABLET PO ONE (10:35)
[2020-11-18] MEDS ORDERED: TAMSULOSIN 0.4 MG CAP PO ONE (10:35)
[2020-11-18] MEDS ORDERED: PROPRANOLOL 10 MG TAB PO ONE (10:35)
[2020-11-18] MEDS ORDERED: MOM 30ML SUSPENSION UDC PO PRN (12:40)
[2020-11-18 14:47] VITALS: BP 141/77
[2020-11-18] MEDS: lamoTRIgine 100MG TAB PO SCH (16:37)
[2020-11-18] MEDS: metFORMIN (GLUCOPHAGE) 1000 MG TABLET PO SCH (17:27)
[2020-11-18] MEDS ORDERED: POTASSIUM CHLORIDE 10MEQ SR TABLET PO ONE (17:40)
--- NOTE | 2020-11-18 17:59 | HPEPDOC ---
[facility] Medical History & Physical Date of Admission Nov 18, 2020 Date of Service: Nov 18, 2020 History and Physical Chief complaint: Who presented to the emergency room with winsome History of present illness: Patient is a 50-year-old male who presented to the emergency room with disassociated thoughts and winsome. Patient was admitted to the inpatient mental health unit under the care of psychiatry. Hospitalist service was consulted for medical screening evaluation. Patient was seen in his room. He denied any nausea, vomiting, chest pain, shortness breath, palpitations, cough, abdominal pain, diarrhea, or urinary discomfort. Denies any recent fevers or chills. Reports his weight has been relatively stable and denies any changes in his appetite. Past Medical History: HTN CAD DLP NIDDM2 Hypothyroidism BPH Overactive bladder Vitamin D deficiency Bipolar disorder / Anxiety Past Surgical History: Tonsillectomy Allergies: See below Medications: See below Family History: - Patient reports that his mother and grandmother have a history of bipolar disorder Social History: - Denies the use of alcohol, tobacco or illicit drugs currently, but was a smoker in the past - Denies recent travel or sick contacts - Lives with roommate Review of Systems: 10 point review of systems complete, all negative otherwise stated in HPI Physical exam: - Vitals: BP [141/77], HR [96], RR [18], Sat [97%], Temp [98.1F] - General: Lying in bed, Speaking in full sentences, AAOx3 - HEENT: NC, AT, PERRLA - CVS: RRR, +S1S2 - Lungs: Fair air entry bilaterally, No appreciable wheezing / rales / rhonchi - Abdomen: Soft, Non-distended, Non-tender - Extremities: No lower extremity edema, No calf tenderness - Neuro: No focal motor or sensory deficit - Skin: No visible rashes Labs: See below Imaging: See below EKG: See below Assessment and Plan: Manic episode - Hx of Bipolar disorder / Anxiety - Patient has been admitted to the inpatient mental health unit under the care of psychiatry - Currently being managed by psychiatry Hypokalemia - Will supplement Leukocytosis - Review of systems is negative for any source of infection - Patient is hemodynamically stable and afebrile - Will hold off on antibiotic therapy at this time HTN - Patients blood pressure currently is normotensive - c/w Amlodipine / Losartan / Propranolol with hold parameters CAD - Reported based on prior documentation DLP - c/w Atorvastatin NIDDM2 - c/w Metformin Hypothyroidism - c/w Levothyroxine BPH - c/w Tamsulosin Overactive bladder - c/w Oxybutynin Vitamin D deficiency - c/w Supplementation DVT prophylaxis - Will c/w early ambulation Female veterans service officer was present for the duration of this history and physical examination Thank you for this consultation; hospital service will now sign off, please reconsult as needed Vital Signs Vital Signs Date Time Temp Pulse Resp B/P (MAP) Pulse Ox O2 Delivery O2 Flow Rate FiO2 11/18/20 14:47 98.1 96 18 141/77 (98) 97 11/18/20 14:28 Room Air Laboratory Data Labs 24H Laboratory Tests 2 11/17/20 22:13: Nucleated Red Blood Cells % (auto) 0.0, Anion Gap 8, Glomerular Filtration Rate > 60.0, Calcium Level 8.6, Total Bilirubin 0.6, Direct Bilirubin 0.2, Aspartate Amino Transf (AST/SGOT) 30, Alanine Aminotransferase (ALT/SGPT) 42, Alkaline Phosphatase 114, Total Protein 7.3, Albumin 4.3, Albumin/Globulin Ratio 1.4, Thyroid Stimulating Hormone (TSH) 1.090, Salicylates Level < 1.7L, Acetaminophen Level < 2.0L, Ethyl Alcohol Level < 0.003 11/18/20 02:07: Urine Opiates Screen NEGATIVE, Urine Methadone Screen NEGATIVE, Urine Barbiturates Screen NEGATIVE, Urine Phencyclidine Screen NEGATIVE, Urine Amphetamines Screen NEGATIVE, Urine Benzodiazepines Screen NEGATIVE, Urine Cocaine Metabolite Screen NEGATIVE, Urine Cannabinoids Screen NEGATIVE 11/18/20 08:27: Coronavirus (COVID-19)(PCR) NEGATIVE, Influenza Type A (RT-PCR) NEGATIVE, Influenza Type B (RT-PCR) NEGATIVE, Respiratory Syncytial Virus (PCR) NEGATIVE CBC/BMP Laboratory Tests 11/17/20 22:13 Home Medications Scheduled Aspirin (Aspirin EC) 81 Mg Tablet.dr, 81 MG PO QAM Atenolol (Atenolol) 25 Mg Tablet, 25 MG PO BID Atorvastatin Calcium (Atorvastatin Calcium) 40 Mg Tablet, 40 MG PO QHS Benztropine Mesylate (Benztropine Mesylate) 1 Mg Tablet, 1 MG PO BID Cholecalciferol (Vitamin D3) (Vitamin D3) 50 Mcg Capsule, 50 MCG PO DAILY Cyclobenzaprine HCl (Cyclobenzaprine HCl) 10 Mg Tablet, 10 MG PO QHS Docusate Sodium (Docusate Sodium) 100 Mg Capsule, 100 MG PO BID Fluticasone Propionate (Flonase Allergy Relief) 9.9 Ml [place].susp, 2 SPRAY NARES DAILY Haloperidol (Haloperidol) 10 Mg Tablet, 10 MG PO QHS Haloperidol Decanoate (Haldol Decanoate 100) 100 Mg/1 Ml Ampul, 100 MG IM Q3 WEEKS Lamotrigine (Lamotrigine) 200 Mg Tablet, 200 MG PO DAILY Levothyroxine Sodium (Levothyroxine Sodium) 100 Mcg Tab, 100 MCG PO DAILY Metformin HCl (Metformin HCl) 1,000 Mg Tablet, 1,000 MG PO BID Montelukast Sodium (Singulair) 10 Mg Tablet, 10 MG PO QHS Oxybutynin Chloride (Oxybutynin Chloride) 5 Mg Tablet, 5 MG PO DAILY Quetiapine Fumarate (Quetiapine Fumarate) 200 Mg Tablet, 200 MG PO QHS Tamsulosin Hcl (Tamsulosin HCl) 0.4 Mg Capsule, 0.8 MG PO DAILY Trazodone HCl (Trazodone HCl) 100 Mg Tablet, 100 MG PO QPM Scheduled PRN Haloperidol (Haloperidol) 10 Mg Tablet, 10 MG PO Q8HP PRN for agitation Lorazepam (Lorazepam) 2 Mg Tablet, 2 MG PO Q8HP PRN for AGITATION Miscellaneous Medications [Med Rec Comment] USED EXTERNAL MED HISTORY Allergies Coded Allergies: Penicillins (Verified Allergy, Intermediate, rash, 01/02/19) latex (Verified Allergy, Intermediate, rash, 12/13/19) divalproex sodium (Verified Allergy, Unknown, 01/02/19) A-FIB/CHADSVASC A-FIB History Current/History of A-Fib/PAF?: No DANNY ALMARAZ MD Nov 18, 2020 17:59
[2020-11-18] MEDS: DOCUSATE SODIUM 100MG CAPSULE PO SCH (21:40)
[2020-11-18] MEDS: ATORVASTATIN 20 MG TAB PO SCH (21:40)
[2020-11-18] MEDS: MONTELUKAST 10 MG TAB PO SCH (21:41)
[2020-11-18] MEDS: PROPRANOLOL 10 MG TAB PO SCH (21:41)
[2020-11-18] MEDS: traZODone 100 MG TAB PO SCH (21:41)
[2020-11-19] MEDS ORDERED: LORazepam 2 MG TAB PO ONE
[2020-11-19] MEDS ORDERED: diphenhydrAMINE 50MG CAP PO ONE
[2020-11-19] MEDS: LEVOTHYROXINE 100MCG TABLET (0.1MG) PO SCH (05:52)
[2020-11-19 06:12] VITALS: BP 119/74
[2020-11-19] MEDS ORDERED: LORazepam 2 MG TAB PO STA (06:48)
[2020-11-19] MEDS ORDERED: diphenhydrAMINE 50MG CAP PO STA (06:48)
[2020-11-19] MEDS: lamoTRIgine 100MG TAB PO SCH (08:31)
[2020-11-19] MEDS: FLUTICASONE PROP 0.05% NASAL SPRAY 16 GM (FLONASE) NARES SCH (08:31)
[2020-11-19] MEDS: BENZTROPINE 1 MG TAB PO SCH ×2 (08:31→20:08)
[2020-11-19] MEDS: LOSARTAN 50MG TABLET PO SCH (08:31)
[2020-11-19] MEDS: TAMSULOSIN 0.4 MG CAP PO SCH (08:32)
[2020-11-19] MEDS: VITAMIN D (CHOLECALCIFEROL) 400 INTERNATIONAL UNITS TAB PO SCH (08:32)
[2020-11-19] MEDS: oxyBUTYnin 5 MG TAB PO SCH (08:32)
[2020-11-19] MEDS: DOCUSATE SODIUM 100MG CAPSULE PO SCH ×2 (08:32→20:08)
[2020-11-19] MEDS: PROPRANOLOL 10 MG TAB PO SCH ×2 (08:33→20:08)
[2020-11-19] MEDS: metFORMIN (GLUCOPHAGE) 1000 MG TABLET PO SCH ×2 (09:09→17:20)
--- NOTE | 2020-11-19 09:30 | MHHPEPDOC ---
General Date Of Admission: Nov 18, 2020 Legal Status: 9.39 Chief Complaint "[I do not know why I am here. I just could not sleep some nights]. History of Present Illness HISTORY OF THE PRESENT ILLNESS: Patient is a 50 -year-old , male, who [has extensive history of bipolar disorder since his early 20s with numerous previous inpatient treatment. He has been living at a [facility] penitentiary since his discharge from [facility] in January 2010. Patient was brought to emergency room from his penitentiary after he became extremely delusional disorganized and paranoid. Patient has been maintained on long- acting Haldol injection and Lamictal and remained marginally stable but in the past few weeks he has been showing decreasing sleep and increasing psychomotor agitation. On the day of his admission patient was becoming grossly disorganized and paranoid and refusing his regular medications and reportedly ran out of his penitentiary and was running away claiming that he was going to an emergency room. He was brought to emergency room by police and ambulance and admitted on 939 status. On the unit patient was very pressured and agitated required extra medications of Haldol and Ativan. On examination with MD patient is a little subdued and is in better control but his speech is very pressured flighty and not making much sense. He does not know why he is here but admits that he has not been sleeping but other than that he is denying any command hallucination and denies any suicidal or homicidal thoughts but not able to give any coherent rational account of the events leading to his admission. He denies any substance abuse claims that he has been taking his medications but does not know what medicine he was taking. Again his grossly disorganized and flighty and grossly manic.]. Psychiatric Review of Systems Kristin (4 or more days of): irritable/elevated mood, decreased need for sleep, talkativity, pressured, flight of ideas Psychosis: delusions, paranoia PTSD: denies Anxiety: denies Past Psychiatric History Previous Psychiatric Diagnosis: . Bipolar disorder Previous Psychiatric Admissions: . Numerous admissions since early 20s last [facility] admission was February 2019 and he was transferred to [facility] and discharged in January 2010 Suicide Attempts: . Past history of depression and suicidal attempts Psychiatric Follow-up: . In active outpatient follow-up Psychiatric medications: . Haldol Decanoate injection and Lamictal Past Medical History Medical Problems DM HTN CAD and BPH Head Injury: Yes (Past history in high school days) Seizures: No Hospitalizations: No Surgeries: Yes Family Medical/Psychiatric HX Medical Problems Noncontributory Psychiatric Disorders: Yes (Patient's mother has bipolar disorder and is taking lithium and his grandmother has bipolar disorder and maternal aunt has committed to suicide) Addiction: No Suicide Attemps/Completions: Yes (Maternal aunt) Addiction History denies Social History Childhood: Uneventful childhood. Abuse/Trauma:[Patient denies any]. Current Living Situation: [Currently lives in a [facility] pen[facility]]. Education: 2-year college . Employment: [On SSD]. Social Support: Close to his mother. Legal: [No known legal history]. Marital: [Single]. Mental Status Examination General Appearance: disheveled, appears stated age Build: overweight Demeanor: very figety Eye Contact: average Activity: agitated Behavior: cooperative, hyperactive, restless Speech: rapid, pressured Mood: anxious, irritable Mood Denies any serious depressed mood but somewhat irritable anxious and depressed Affect: inappropriate, labile, anxious Thought Process: flight of ideas, derailment Thought Content (Delusions): bizarre, paranoia, delusions (Was claiming that he was being pursued by someone very rational and bizarre comments) Thought Content (Other): preoccupied, unable to elaborate Thought Content (Aggressive): none reported Perception (Hallucinations): none reported Perception (Other): none reported Cognition (Impairment of): none reported Cognition(Intelligence Est.): average Oriented: Awake, Alert, Oriented times three Insight: poor Judgment: Poor Diagnoses Bipolar disorder order type I mixed severe with psychosis A-FIB/CHADSVASC A-FIB History Current/History of A-Fib/PAF?: No Current PO Anticoag Therapy: No Age/Risk Factor Scoring CHADSVASC: CHADSVASC Response (Comments) Value Age Risk Factor Age < 65 years old 0 Gender Risk Factor Male 0 Hx of CHF No 0 Hx of HTN Yes 1 Hx of Stroke/TIA/or VTE No 0 Hx of Diabetes Yes 1 Hx of Vascular Disease No 0 Total 2 Treatment Treatment ordered: NONE (To be further evaluated and followed by medicine) Assessment Grossly manic with a irritability and psychomotor agitation needs stabilization with his medications Initial Treatment Plan 1. Patient was admitted on a 39 status. 2. Complete history was obtained. 3. With patients permission, family will be contacted and database will be expanded. 4. Patients medication regimen will be reviewed and changed accordingly. 5. Patient will be provided with protected environment. 6. Patient will be treated with individual, group, and milieu therapies. 7. Patient will receive supportive psych-education. 8. Discharge planning will commence immediately. 9. Outpatient follow-up treatment will be strongly recommended. 10. The initial treatment plan will focus initially on: * Depression. * Risk for suicide. ESTIMATED LENGTH OF STAY: 5-7 DAYS. TIME SPENT COUNSELING AND COORDINATING INITIAL CARE: 45 minutes. Tobacco Cessation Screen If Patient is a Smoker Non-smoker Complete/Results docum. Vital Signs Vital Signs Date Time Temp Pulse Resp B/P (MAP) Pulse Ox O2 Delivery O2 Flow Rate FiO2 11/19/20 08:33 103 11/19/20 08:31 124/63 11/19/20 06:12 96.0 18 98 Room Air Medications Scheduled Acetaminophen (Acetaminophen) 500 Mg Tablet, 1,000 MG PO Q6H for fever, (Reported) Amlodipine Besylate (Amlodipine Besylate) 10 Mg Tablet, 10 MG PO DAILY, (Reported) Atorvastatin Calcium (Atorvastatin Calcium) 40 Mg Tablet, 40 MG PO QHS, (Re ported) Benztropine Mesylate (Benztropine Mesylate) 1 Mg Tablet, 1 MG PO BID, (Reported) Cholecalciferol (Vitamin D3) (Vitamin D3) 50 Mcg Capsule, 50 MCG PO DAILY, (Reported) Docusate Sodium (Docusate Sodium) 100 Mg Capsule, 100 MG PO BID, (Reported) Fluticasone Propionate (Flonase Allergy Relief) 9.9 Ml [place].susp, 2 SPRAY NARES DAILY, (Reported) Haloperidol Decanoate (Haloperidol Decanoate) 100 Mg/1 Ml Vial, 100 MG PO [id number], (Reported) Lamotrigine (Lamotrigine) 200 Mg Tablet, 200 MG PO DAILY, (Reported) Levothyroxine Sodium (Levothyroxine Sodium) 100 Mcg Tab, 100 MCG PO DAILY, (Reported) Lorazepam (Lorazepam) 1 Mg Tablet, 1 MG PO BID, (Reported) Losartan Potassium (Losartan Potassium) 50 Mg Tablet, 50 MG PO DAILY, (Reported) Metformin HCl (Metformin HCl) 1,000 Mg Tablet, 1,000 MG PO BID, (Reported) Montelukast Sodium (Singulair) 10 Mg Tablet, 10 MG PO QHS, (Reported) Oxybutynin Chloride (Oxybutynin Chloride) 5 Mg Tablet, 5 MG PO DAILY, (Reported) Propranolol HCl (Propranolol HCl) 10 Mg Tablet, 10 MG PO BID, (Reported) Tamsulosin Hcl (Tamsulosin HCl) 0.4 Mg Capsule, 0.8 MG PO DAILY, (Reported) Trazodone HCl (Trazodone HCl) 100 Mg Tablet, 100 MG PO QPM, (Reported) Valbenazine Tosylate (Ingrezza) 80 Mg Capsule, 80 MG PO DAILY, (Reported) Miscellaneous Medications [Med Rec Comment] , (Reported) USED EXTERNAL MED HISTORY Allergies Coded Allergies: Penicillins (Verified Allergy, Intermediate, rash, 01/02/19) latex (Verified Allergy, Intermediate, rash, 12/13/19) divalproex sodium (Verified Allergy, Unknown, 01/02/19) MONI LINDQUIST M.D. Nov 19, 2020 09:29
[2020-11-19 16:23] VITALS: BP 119/66
[2020-11-19] MEDS: traZODone 100 MG TAB PO SCH (20:08)
[2020-11-19] MEDS: QUEtiapine FUMARATE 200 MG TAB PO SCH (20:08)
[2020-11-19] MEDS: MONTELUKAST 10 MG TAB PO SCH (20:08)
[2020-11-19] MEDS: ATORVASTATIN 20 MG TAB PO SCH (20:08)
[2020-11-19] MEDS: ACETAMINOPHEN TAB 650MG DOSE (2X325MG) PO PRN (21:08)
[2020-11-20] MEDS: LEVOTHYROXINE 100MCG TABLET (0.1MG) PO SCH (05:11)
[2020-11-20] MEDS: ACETAMINOPHEN TAB 650MG DOSE (2X325MG) PO PRN ×3 (05:12→23:41)
[2020-11-20 05:56] VITALS: BP 128/95
[2020-11-20] MEDS: metFORMIN (GLUCOPHAGE) 1000 MG TABLET PO SCH ×2 (07:41→17:27)
[2020-11-20] MEDS: FLUTICASONE PROP 0.05% NASAL SPRAY 16 GM (FLONASE) NARES SCH (08:12)
[2020-11-20] MEDS: oxyBUTYnin 5 MG TAB PO SCH (08:13)
[2020-11-20] MEDS: PROPRANOLOL 10 MG TAB PO SCH ×2 (08:13→21:18)
[2020-11-20] MEDS: lamoTRIgine 100MG TAB PO SCH (08:13)
[2020-11-20] MEDS: BENZTROPINE 1 MG TAB PO SCH ×2 (08:13→21:18)
[2020-11-20] MEDS: DOCUSATE SODIUM 100MG CAPSULE PO SCH ×2 (08:13→21:19)
[2020-11-20] MEDS: TAMSULOSIN 0.4 MG CAP PO SCH (08:13)
[2020-11-20] MEDS: VITAMIN D (CHOLECALCIFEROL) 400 INTERNATIONAL UNITS TAB PO SCH (08:13)
[2020-11-20] MEDS: LOSARTAN 50MG TABLET PO SCH (08:14)
--- NOTE | 2020-11-20 08:30 | MHIPNPDOC ---
[facility] Progress Note Progress Note DATE OF SERVICE: 11/20/20 Patient is fully cooperated with medications and maintained good control since yesterday morning's agitated episode. He stated that with his nighttime medicine of Seroquel and Haldol he was able to sleep 7 hours straight and is feeling very rested. He is not as pressured and is in better spirits and does not appear to be angry hostile or irritated. He is somewhat elevated and pressured and talking about [employer] game etc. but is reporting no bizarre or paranoid ideas and quite pleasant. HISTORY:. VITAL SIGNS: See below. NEW TEST RESULTS:. CURRENT MEDICATIONS: See below. MENTAL STATUS EXAMINATION: Patient is a 50-year old male, who is in no acute distress. Speech: Is pressured but relevant. Language skills are fair. Thought processes including: More coherent. Thought content: Not expressing any paranoid thoughts. Abstract reasoning, and computation: Fair. Description of associations: Better organized. Description of abnormal or psychotic thoughts: Denies any command hallucination. Judgment: Poor. Insight: Poor. Orientation: Appears oriented. Recent and remote memory: No gross impairment. Attention span and concentration: Poor. Language:. Fund of knowledge:. Mood: Not as angry or irritable. Affect: Labile. DIAGNOSES: 1. Bipolar disorder mixed. 2.. Rule out schizoaffective disorder 3.. ASSESSMENT: Cooperating with the medicine and in better control MANAGEMENT PLAN: Needs stabilization with his current treatment. TIME SPENT: 20 minutes. Vital Signs Vital Signs Date Time Temp Pulse Resp B/P (MAP) Pulse Ox O2 Delivery O2 Flow Rate FiO2 11/20/20 08:13 98 11/20/20 08:13 134/76 11/20/20 05:56 96.6 18 97 Room Air Current Medications Current Medications Medications (Trade) Dose Ordered Sig/Kailey Route PRN Reason Start Time Stop Time Status Last Admin Dose Admin Acetaminophen (Tylenol Tab) 650 mg Q6HP PRN PO HEADACHE or MILD DISCOMFORT 11/18/20 12:40 11/20/20 05:12 Al Hydrox/Mg Hydrox/Simethicone (Mylanta) 30 ml Q4HP PRN PO HEARTBURN/INDIGESTION 11/18/20 12:40 Amlodipine Besylate (Norvasc) 10 mg DAILY PO 11/19/20 09:00 11/20/20 08:13 Atorvastatin Calcium (Lipitor) 40 mg QHS PO 11/18/20 21:00 11/19/20 20:08 Benztropine Mesylate (Cogentin) 1 mg BID PO 11/18/20 09:00 11/20/20 08:13 Diphenhydramine HCl (Benadryl) 50 mg Q8HP PRN PO AGITATION 11/19/20 09:10 Diphenhydramine HCl (Benadryl) 50 mg STAT STAT PO 11/19/20 06:48 11/19/20 06:50 DC 11/19/20 07:06 Docusate Sodium (Colace) 100 mg BID PO 11/18/20 21:00 11/20/20 08:13 Fluticasone Propionate (Flonase 0.05% Nasal [place]) 2 spray DAILY NARES 11/19/20 09:00 11/20/20 08:12 Haloperidol (Haldol) 10 mg Q8HP PRN PO AGITATION 11/19/20 09:10 Haloperidol (Haldol) 10 mg QHS PO 11/19/20 21:00 11/19/20 09:48 DC Haloperidol (Haldol) 10 mg QHS PO 11/19/20 21:00 11/19/20 20:08 Haloperidol (Haldol) 10 mg STAT STAT PO 11/19/20 06:48 11/19/20 06:50 DC 11/19/20 07:06 Home Med (Med Rec Complete!) ASDIRECTED XX 11/17/20 23:25 11/17/20 23:24 DC Lamotrigine (LaMICtal) 200 mg DAILY PO 11/18/20 09:00 11/20/20 08:13 Levothyroxine Sodium (Synthroid) 100 mcg DAILY@0600 PO 11/19/20 06:00 11/20/20 05:11 Lorazepam (Ativan) 2 mg Q8HP PRN PO AGITATION 11/19/20 09:10 Lorazepam (Ativan) 2 mg STAT STAT PO 11/19/20 06:48 11/19/20 06:50 DC 11/19/20 07:06 Losartan Potassium (Cozaar) 50 mg DAILY PO 11/19/20 09:00 11/20/20 08:14 Magnesium Hydroxide (Milk Of Magnesia) 30 ml DAILYPRN PRN PO CONSTIPATION 11/18/20 12:40 Metformin HCl (Glucophage) 1,000 mg BID@0800,1800 PO 11/18/20 18:00 11/20/20 07:41 Montelukast Sodium (Singulair) 10 mg QHS PO 11/18/20 21:00 11/19/20 20:08 Oxybutynin Chloride (Ditropan) 5 mg DAILY PO 11/19/20 09:00 11/20/20 08:13 Propranolol HCl (Inderal) 10 mg BID PO 11/18/20 21:00 11/20/20 08:13 Quetiapine Fumarate (SEROquel) 200 mg QHS PO 11/19/20 21:00 11/19/20 20:08 Tamsulosin HCl (Flomax) 0.8 mg DAILY PO 11/19/20 09:00 11/20/20 08:13 Trazodone HCl (Desyrel) 100 mg QPM PO 11/18/20 21:00 11/19/20 20:08 Vitamin D (Vitamin D) 400 units DAILY PO 11/19/20 09:00 11/20/20 08:13 Allergies Coded Allergies: Penicillins (Verified Allergy, Intermediate, rash, 01/02/19) latex (Verified Allergy, Intermediate, rash, 12/13/19) divalproex sodium (Verified Allergy, Unknown, 01/02/19) MONI LINDQUIST M.D. Nov 20, 2020 08:30
[2020-11-20 16:13] VITALS: BP 144/79
[2020-11-20] MEDS: QUEtiapine FUMARATE 200 MG TAB PO SCH (21:18)
[2020-11-20] MEDS: CYCLOBENZAPRINE 10MG TABLET PO SCH (21:18)
[2020-11-20] MEDS: ATORVASTATIN 20 MG TAB PO SCH (21:18)
[2020-11-20] MEDS: traZODone 100 MG TAB PO SCH (21:18)
[2020-11-20] MEDS: MONTELUKAST 10 MG TAB PO SCH (21:18)
[2020-11-21] MEDS: LORazepam 2 MG TAB PO PRN ×2 (01:53→20:20)
[2020-11-21] MEDS: diphenhydrAMINE 50MG CAP PO PRN (01:53)
[2020-11-21] MEDS: LEVOTHYROXINE 100MCG TABLET (0.1MG) PO SCH (06:16)
[2020-11-21 07:11] VITALS: BP 159/99
[2020-11-21] MEDS: metFORMIN (GLUCOPHAGE) 1000 MG TABLET PO SCH ×2 (07:44→17:43)
[2020-11-21] MEDS: FLUTICASONE PROP 0.05% NASAL SPRAY 16 GM (FLONASE) NARES SCH (08:24)
[2020-11-21] MEDS: VITAMIN D (CHOLECALCIFEROL) 400 INTERNATIONAL UNITS TAB PO SCH (08:25)
[2020-11-21] MEDS: lamoTRIgine 100MG TAB PO SCH (08:25)
[2020-11-21] MEDS: PROPRANOLOL 10 MG TAB PO SCH ×2 (08:25→20:20)
[2020-11-21] MEDS: TAMSULOSIN 0.4 MG CAP PO SCH (08:26)
[2020-11-21] MEDS: LOSARTAN 50MG TABLET PO SCH (08:26)
[2020-11-21] MEDS: DOCUSATE SODIUM 100MG CAPSULE PO SCH ×2 (08:26→20:17)
[2020-11-21] MEDS: BENZTROPINE 1 MG TAB PO SCH ×2 (08:26→20:21)
[2020-11-21] MEDS: oxyBUTYnin 5 MG TAB PO SCH (08:26)
--- NOTE | 2020-11-21 08:39 | MHIPNPDOC ---
[facility] Progress Note Progress Note DATE OF SERVICE: 11/21/20 Patient is fully cooperating with his medications and maintaining fairly good control. He was having trouble falling asleep and asked for and received Ativan 2 mg and Benadryl 50 mg at around 1:30 AM and slept 6 hours. He stated that he is feeling a little more rested and has no new complaint and does not have any physical complain either. He has been writing somewhat incomprehensible loosely associated notes which shows a fairly disorganized thinking pattern but on examination is denying any command hallucination or preoccupation with delusional thinking. He is quite concerned that his medication may be changed and wants to stay on his outpatient medication which is Haldol and Lamictal and he was reassured that he is receiving basically the same medications except for the addition of Seroquel. HISTORY:. VITAL SIGNS: See below. NEW TEST RESULTS:. CURRENT MEDICATIONS: See below. MENTAL STATUS EXAMINATION: Patient is a 50-year old male, who is in no acute distress. Speech: Is relevant but not very spontaneous. Language skills are fair. Thought processes including: Relevant but not very organized and shows a very loose and flighty thoughts. Thought content: More organized delusional thinking. Abstract reasoning, and computation: Poor. Description of associations: Relevant response. Description of abnormal or psychotic thoughts: Superficially denies any command hallucination. Judgment: Poor. Insight: Poor. Orientation: Is oriented. Recent and remote memory: No gross impairment. Attention span and concentration: Poor. Language:. Fund of knowledge:. Mood: Moderately anxious. Affect: Labile at times inappropriately elevated. DIAGNOSES: 1. Bipolar disorder mixed. 2.. Rule out schizoaffective disorder 3.. ASSESSMENT: Cooperating with the medicine and behavior is in control but shows grossly disorganized thinking MANAGEMENT PLAN: Continue with the supportive therapy and medications for stabilization. TIME SPENT: 15 minutes. Vital Signs Vital Signs Date Time Temp Pulse Resp B/P (MAP) Pulse Ox O2 Delivery O2 Flow Rate FiO2 11/21/20 08:26 100 11/21/20 08:25 150/84 11/21/20 08:08 Room Air 11/21/20 07:11 97.0 16 11/20/20 16:13 98 Current Medications Current Medications Medications (Trade) Dose Ordered Sig/Kailey Route PRN Reason Start Time Stop Time Status Last Admin Dose Admin Acetaminophen (Tylenol Tab) 650 mg Q6HP PRN PO HEADACHE or MILD DISCOMFORT 11/18/20 12:40 11/20/20 23:41 Al Hydrox/Mg Hydrox/Simethicone (Mylanta) 30 ml Q4HP PRN PO HEARTBURN/INDIGESTION 11/18/20 12:40 Amlodipine Besylate (Norvasc) 10 mg DAILY PO 11/19/20 09:00 11/21/20 08:26 Atorvastatin Calcium (Lipitor) 40 mg QHS PO 11/18/20 21:00 11/20/20 21:18 Benztropine Mesylate (Cogentin) 1 mg BID PO 11/18/20 09:00 11/21/20 08:26 Cyclobenzaprine HCl (Flexeril) 10 mg QHS PO 11/20/20 21:00 11/20/20 21:18 Diphenhydramine HCl (Benadryl) 50 mg Q8HP PRN PO AGITATION 11/19/20 09:10 11/21/20 01:53 Diphenhydramine HCl (Benadryl) 50 mg STAT STAT PO 11/19/20 06:48 11/19/20 06:50 DC 11/19/20 07:06 Docusate Sodium (Colace) 100 mg BID PO 11/18/20 21:00 11/21/20 08:26 Fluticasone Propionate (Flonase 0.05% Nasal [place]) 2 spray DAILY NARES 11/19/20 09:00 11/21/20 08:24 Haloperidol (Haldol) 10 mg Q8HP PRN PO AGITATION 11/19/20 09:10 Haloperidol (Haldol) 10 mg QHS PO 11/19/20 21:00 11/19/20 09:48 DC Haloperidol (Haldol) 10 mg QHS PO 11/19/20 21:00 11/20/20 21:18 Haloperidol (Haldol) 10 mg STAT STAT PO 11/19/20 06:48 11/19/20 06:50 DC 11/19/20 07:06 Home Med (Med Rec Complete!) ASDIRECTED XX 11/17/20 23:25 11/17/20 23:24 DC Lamotrigine (LaMICtal) 200 mg DAILY PO 11/18/20 09:00 11/21/20 08:25 Levothyroxine Sodium (Synthroid) 100 mcg DAILY@0600 PO 11/19/20 06:00 11/21/20 06:16 Lorazepam (Ativan) 2 mg Q8HP PRN PO AGITATION 11/19/20 09:10 11/21/20 01:53 Lorazepam (Ativan) 2 mg STAT STAT PO 11/19/20 06:48 11/19/20 06:50 DC 11/19/20 07:06 Losartan Potassium (Cozaar) 50 mg DAILY PO 11/19/20 09:00 11/21/20 08:26 Magnesium Hydroxide (Milk Of Magnesia) 30 ml DAILYPRN PRN PO CONSTIPATION 11/18/20 12:40 Metformin HCl (Glucophage) 1,000 mg BID@0800,1800 PO 11/18/20 18:00 11/21/20 07:44 Montelukast Sodium (Singulair) 10 mg QHS PO 11/18/20 21:00 11/20/20 21:18 Oxybutynin Chloride (Ditropan) 5 mg DAILY PO 11/19/20 09:00 11/21/20 08:26 Propranolol HCl (Inderal) 10 mg BID PO 11/18/20 21:00 11/21/20 08:25 Quetiapine Fumarate (SEROquel) 200 mg QHS PO 11/19/20 21:00 11/20/20 21:18 Tamsulosin HCl (Flomax) 0.8 mg DAILY PO 11/19/20 09:00 11/21/20 08:26 Trazodone HCl (Desyrel) 100 mg QPM PO 11/18/20 21:00 11/20/20 21:18 Vitamin D (Vitamin D) 400 units DAILY PO 11/19/20 09:00 11/21/20 08:25 Allergies Coded Allergies: Penicillins (Verified Allergy, Intermediate, rash, 01/02/19) latex (Verified Allergy, Intermediate, rash, 12/13/19) divalproex sodium (Verified Allergy, Unknown, 01/02/19) MONI LINDQUIST M.D. Nov 21, 2020 08:39
[2020-11-21 16:06] VITALS: BP 143/89
[2020-11-21] MEDS: QUEtiapine FUMARATE 200 MG TAB PO SCH (20:20)
[2020-11-21] MEDS: ATORVASTATIN 20 MG TAB PO SCH (20:21)
[2020-11-21] MEDS: traZODone 100 MG TAB PO SCH (20:21)
[2020-11-21] MEDS: CYCLOBENZAPRINE 10MG TABLET PO SCH (20:21)
[2020-11-21] MEDS: MONTELUKAST 10 MG TAB PO SCH (20:21)
[2020-11-22] MEDS: diphenhydrAMINE 50MG CAP PO PRN ×2 (02:20→21:28)
[2020-11-22] MEDS: ACETAMINOPHEN TAB 650MG DOSE (2X325MG) PO PRN (02:21)
[2020-11-22] MEDS: LEVOTHYROXINE 100MCG TABLET (0.1MG) PO SCH (05:22)
[2020-11-22] MEDS: metFORMIN (GLUCOPHAGE) 1000 MG TABLET PO SCH ×2 (07:16→17:19)
[2020-11-22] MEDS: FLUTICASONE PROP 0.05% NASAL SPRAY 16 GM (FLONASE) NARES SCH (08:19)
[2020-11-22] MEDS: LOSARTAN 50MG TABLET PO SCH (08:20)
[2020-11-22] MEDS: VITAMIN D (CHOLECALCIFEROL) 400 INTERNATIONAL UNITS TAB PO SCH (08:20)
[2020-11-22] MEDS: lamoTRIgine 100MG TAB PO SCH (08:20)
[2020-11-22] MEDS: TAMSULOSIN 0.4 MG CAP PO SCH (08:20)
[2020-11-22] MEDS: DOCUSATE SODIUM 100MG CAPSULE PO SCH ×2 (08:20→21:00)
[2020-11-22] MEDS: PROPRANOLOL 10 MG TAB PO SCH (08:20)
[2020-11-22] MEDS: BENZTROPINE 1 MG TAB PO SCH ×2 (08:20→21:00)
[2020-11-22] MEDS: oxyBUTYnin 5 MG TAB PO SCH (08:20)
--- NOTE | 2020-11-22 08:30 | MHIPNPDOC ---
[facility] Progress Note Progress Note DATE OF SERVICE: 11/22/20 Per reports from his residence counselor he was recently evaluated for possible atrial fibrillation and had an appointment scheduled for endo tech consult on November 20 which he missed. Patient's vital signs are stable and has no physical complaints and ambulating and in no acute distress. His blood pressure is stable with his current hypertension medication. I would ask hospitalist to evaluate for possible anticoagulant treatment and EKG and cardiology consult. Patient mental status remains the same. He is a little guarded not very productive but is maintaining very good control and has not shown any agitated or aggressive behavior but his thinking appears to be still very disorganized judging from the notes that he was writing. HISTORY:. VITAL SIGNS: See below. NEW TEST RESULTS:. CURRENT MEDICATIONS: See below. MENTAL STATUS EXAMINATION: Patient is a 50-year old male, who is in no acute distress. Speech: Is not spontaneous but relevant. Language skills are fair. Thought processes including: Relevant but not productive. Thought content: Somewhat evasive and denies any paranoia but appears grossly disorganized.. Abstract reasoning, and computation: Poor. Description of a ssociations: Evasive and not productive. Description of abnormal or psychotic thoughts: Appears quite distracted and disorganized. Judgment: Poor. Insight: Poor. Orientation: Oriented. Recent and remote memory: No gross impairment. Attention span and concentration: Fair. Language: Fair. Fund of knowledge:. Mood: Blind. Affect: Quite blunted. DIAGNOSES: 1.. Bipolar disorder mixed 2.. Rule out schizoaffective disorder 3.. ASSESSMENT: Will get hospitalist consult regarding possible AF MANAGEMENT PLAN: Continue his current medications for stabilization. TIME SPENT: 15 minutes. Vital Signs Vital Signs Date Time Temp Pulse Resp B/P (MAP) Pulse Ox O2 Delivery O2 Flow Rate FiO2 11/21/20 20:20 108 140/93 11/21/20 16:06 97.8 18 98 Room Air Current Medications Current Medications Medications (Trade) Dose Ordered Sig/Kailey Route PRN Reason Start Time Stop Time Status Last Admin Dose Admin Acetaminophen (Tylenol Tab) 650 mg Q6HP PRN PO HEADACHE or MILD DISCOMFORT 11/18/20 12:40 11/22/20 02:21 Al Hydrox/Mg Hydrox/Simethicone (Mylanta) 30 ml Q4HP PRN PO HEARTBURN/INDIGESTION 11/18/20 12:40 Amlodipine Besylate (Norvasc) 10 mg DAILY PO 11/19/20 09:00 11/21/20 08:26 Atorvastatin Calcium (Lipitor) 40 mg QHS PO 11/18/20 21:00 11/21/20 20:21 Benztropine Mesylate (Cogentin) 1 mg BID PO 11/18/20 09:00 11/21/20 20:21 Cyclobenzaprine HCl (Flexeril) 10 mg QHS PO 11/20/20 21:00 11/21/20 20:21 Diphenhydramine HCl (Benadryl) 50 mg Q8HP PRN PO AGITATION 11/19/20 09:10 11/22/20 02:20 Diphenhydramine HCl (Benadryl) 50 mg STAT STAT PO 11/19/20 06:48 11/19/20 06:50 DC 11/19/20 07:06 Docusate Sodium (Colace) 100 mg BID PO 11/18/20 21:00 11/21/20 08:26 Fluticasone Propionate (Flonase 0.05% Nasal [place]) 2 spray DAILY NARES 11/19/20 09:00 11/21/20 08:24 Haloperidol (Haldol) 10 mg Q8HP PRN PO AGITATION 11/19/20 09:10 Haloperidol (Haldol) 10 mg QHS PO 11/19/20 21:00 11/19/20 09:48 DC Haloperidol (Haldol) 10 mg QHS PO 11/19/20 21:00 11/21/20 20:20 Haloperidol (Haldol) 10 mg STAT STAT PO 11/19/20 06:48 11/19/20 06:50 DC 11/19/20 07:06 Home Med (Med Rec Complete!) ASDIRECTED XX 11/17/20 23:25 11/17/20 23:24 DC Lamotrigine (LaMICtal) 200 mg DAILY PO 11/18/20 09:00 11/21/20 08:25 Levothyroxine Sodium (Synthroid) 100 mcg DAILY@0600 PO 11/19/20 06:00 11/22/20 05:22 Lorazepam (Ativan) 2 mg Q8HP PRN PO AGITATION 11/19/20 09:10 11/21/20 20:20 Lorazepam (Ativan) 2 mg STAT STAT PO 11/19/20 06:48 11/19/20 06:50 DC 11/19/20 07:06 Losartan Potassium (Cozaar) 50 mg DAILY PO 11/19/20 09:00 11/21/20 08:26 Magnesium Hydroxide (Milk Of Magnesia) 30 ml DAILYPRN PRN PO CONSTIPATION 11/18/20 12:40 Metformin HCl (Glucophage) 1,000 mg BID@0800,1800 PO 11/18/20 18:00 11/22/20 07:16 Montelukast Sodium (Singulair) 10 mg QHS PO 11/18/20 21:00 11/21/20 20:21 Oxybutynin Chloride (Ditropan) 5 mg DAILY PO 11/19/20 09:00 11/21/20 08:26 Propranolol HCl (Inderal) 10 mg BID PO 11/18/20 21:00 11/21/20 20:20 Quetiapine Fumarate (SEROquel) 200 mg QHS PO 11/19/20 21:00 11/21/20 20:20 Tamsulosin HCl (Flomax) 0.8 mg DAILY PO 11/19/20 09:00 11/21/20 08:26 Trazodone HCl (Desyrel) 100 mg QPM PO 11/18/20 21:00 11/21/20 20:21 Vitamin D (Vitamin D) 400 units DAILY PO 11/19/20 09:00 11/21/20 08:25 Allergies Coded Allergies: Penicillins (Verified Allergy, Intermediate, rash, 01/02/19) latex (Verified Allergy, Intermediate, rash, 12/13/19) divalproex sodium (Verified Allergy, Unknown, 01/02/19) MONI LINDQUIST M.D. Nov 22, 2020 08:30
[2020-11-22] MEDS ORDERED: atenoloL 25 MG TAB PO SCH (09:00)
--- NOTE | 2020-11-22 09:53 | ECGEPIP ---
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
[2020-11-22] MEDS: MAALOX 30 ML SUSP *UDC PO PRN (12:52)
[2020-11-22] MEDS ORDERED: atenoloL 25 MG TAB PO ONE (13:00)
--- NOTE | 2020-11-22 13:00 | IPNPDOC ---
Date Seen The patient was seen on 11/22/20. Progress Note SUBJECTIVE: c/o occasional palpitaitons without chest pain,lightheadedness or dizziness. no hart, sob, or near syncope. OBJECTIVE PHYSICAL EXAMINATION: VITAL SIGNS: Please see below. GENERAL: aaox 3 no distress HEENT:no jvd or carotid bruit no thyromegaly CARDIOVASCULAR: S1S2 sinus tachycardia RESPIRATORY: CTAB no w/r/r ABDOMINAL: obese soft nt nd no reboudn or guarding EXTREMITIES:no c/c/e LABORATORY DATA, IMAGING STUDIES, MICROBIOLOGY: Please see below. ASSESSMENT AND PLAN: 50 y/o w c/o palpitations. HTN sinus tachycardia obesity ?h/o pafib -ekg: sinus, for rate control atenolol 25 to 50 mg bi. -tsh wnl -if documented afib, start on [id number] bid -asa 81 mg daily -outpt holter VS, I&O, 24H, Fishbone Vital Signs/I&O Vital Signs Date Time Temp Pulse Resp B/P (MAP) Pulse Ox O2 Delivery O2 Flow Rate FiO2 11/22/20 09:51 102 160/94 11/21/20 16:06 97.8 18 98 Room Air KWAKU SAMSON MD Nov 22, 2020 13:00
[2020-11-22] MEDS: ASPIRIN 81MG ENTERIC TABLET PO SCH (15:23)
[2020-11-22 15:36] VITALS: BP 163/85
[2020-11-22] MEDS: atenoloL 50 MG TAB PO SCH (21:00)
[2020-11-22] MEDS: traZODone 100 MG TAB PO SCH (21:00)
[2020-11-22] MEDS: CYCLOBENZAPRINE 10MG TABLET PO SCH (21:00)
[2020-11-22] MEDS: QUEtiapine FUMARATE 200 MG TAB PO SCH (21:00)
[2020-11-22] MEDS: ATORVASTATIN 20 MG TAB PO SCH (21:00)
[2020-11-22] MEDS: MONTELUKAST 10 MG TAB PO SCH (21:00)
[2020-11-23] MEDS: MAALOX 30 ML SUSP *UDC PO PRN ×3 (00:18→22:34)
[2020-11-23] MEDS: ACETAMINOPHEN TAB 650MG DOSE (2X325MG) PO PRN (03:09)
[2020-11-23] MEDS: LEVOTHYROXINE 100MCG TABLET (0.1MG) PO SCH (05:05)
[2020-11-23 06:28] VITALS: BP 172/84
[2020-11-23] MEDS: metFORMIN (GLUCOPHAGE) 1000 MG TABLET PO SCH ×2 (07:37→17:34)
[2020-11-23] MEDS: diphenhydrAMINE 50MG CAP PO PRN ×2 (07:57→17:51)
[2020-11-23] MEDS: DOCUSATE SODIUM 100MG CAPSULE PO SCH ×2 (07:58→21:15)
[2020-11-23] MEDS: ASPIRIN 81MG ENTERIC TABLET PO SCH (07:58)
[2020-11-23] MEDS: atenoloL 50 MG TAB PO SCH ×2 (07:59→21:16)
[2020-11-23] MEDS: haloperidoL 5 MG TAB PO PRN ×2 (07:59→23:21)
[2020-11-23] MEDS: VITAMIN D (CHOLECALCIFEROL) 400 INTERNATIONAL UNITS TAB PO SCH (08:00)
[2020-11-23] MEDS: BENZTROPINE 1 MG TAB PO SCH ×2 (08:00→21:15)
[2020-11-23] MEDS: oxyBUTYnin 5 MG TAB PO SCH (08:00)
[2020-11-23] MEDS: lamoTRIgine 100MG TAB PO SCH (08:00)
[2020-11-23] MEDS: TAMSULOSIN 0.4 MG CAP PO SCH (08:01)
[2020-11-23] MEDS: FLUTICASONE PROP 0.05% NASAL SPRAY 16 GM (FLONASE) NARES SCH (08:01)
[2020-11-23 16:27] VITALS: BP 154/97
[2020-11-23] MEDS: QUEtiapine FUMARATE 200 MG TAB PO SCH (21:15)
[2020-11-23] MEDS: MONTELUKAST 10 MG TAB PO SCH (21:15)
[2020-11-23] MEDS: traZODone 100 MG TAB PO SCH (21:16)
[2020-11-23] MEDS: ATORVASTATIN 20 MG TAB PO SCH (21:16)
[2020-11-23] MEDS: CYCLOBENZAPRINE 10MG TABLET PO SCH (21:16)
[2020-11-23 23:00] VITALS: BP 84/50
[2020-11-23] MEDS: LORazepam 2 MG TAB PO PRN (23:21)
--- NOTE | 2020-11-23 23:22 | IPNPDOC ---
Text Note Date of Service The patient was seen on 11/23/20. NOTE Alerted by [facility] nursing staff at approx 2245 that patient had c/o sudden onset chest pain, diaphoresis and told staff he "felt like he was having a heart attack." Vitals signs WNL save blood pressure of 88/60. Saw and examined patient at this time who was manic with flight of ideas and was difficult to redirect. Patient tells me that his pain began about an hour ago and felt as though so meone was pounding on his chest. Patient also complains of some abdominal pain but does not specify where the pain is or how it feels in this regard. Physical exam of patient was notable for diaphoresis and parch oral mucosa. STAT ekg performed shows st abnormality in lead v3, however this appears to be a consistent finding with him upon chart review. F/u cbc, cmp, troponin, lactic Encourage oral intake in patient. He is obviously dehydrated 2/2 his winsome. VS,Fishbone, I+O VS, Fishbone, I+O Vital Signs Date Time Temp Pulse Resp B/P (MAP) Pulse Ox O2 Delivery O2 Flow Rate FiO2 11/23/20 21:16 104 158/96 11/23/20 16:27 98.0 18 98 Room Air LYDIA LICONA Nov 23, 2020 23:22
[2020-11-23 23:35] LABS: HEMATOCRIT 40.3 % (42.0-52.0); HEMOGLOBIN 13.6 g/dl (13.5-17.5); MEAN CORPUSCULAR HEMOGLOBIN 28.2 pg (27.0-33.0); MEAN CORPUSCULAR HGB CONC 33.7 g/dl (32.0-36.5); MEAN CORPUSCULAR VOLUME 83.6 fl (80.0-96.0); PLATELET COUNT, AUTOMATED 282 10^3/uL (150-450); RED BLOOD COUNT 4.82 10^6/uL (4.30-6.10); WHITE BLOOD COUNT 13.4 10^3/uL (4.0-10.0)
[2020-11-24 00:05] LABS: ALBUMIN 3.6 GM/DL (3.2-5.2); ALT/SGPT 46 U/L (12-78); BILIRUBIN,TOTAL 0.3 MG/DL (0.2-1.0); BLOOD UREA NITROGEN 10 MG/DL (7-18); CALCIUM LEVEL 8.3 MG/DL (8.5-10.1); CARBON DIOXIDE LEVEL 24 MEQ/L (21-32); CHLORIDE LEVEL 103 MEQ/L (98-107); CK-MB VALUE MASS 6.7 NG/ML (<3.6); CPK CREATINE PHOSPHOKINASE 498 U/L (39-308); CREATININE FOR GFR 0.83 MG/DL (0.70-1.30); GLOMERULAR FILTRATION RATE > 60.0 (>56); GLUCOSE, FASTING 119 MG/DL (70-100); MB/CK RELATIVE INDEX 1.35 (< OR =4); POTASSIUM SERUM 3.6 MEQ/L (3.5-5.1); SODIUM LEVEL 137 MEQ/L (136-145); TROPONIN I < 0.02 NG/ML (< 0.10)
[2020-11-24] MEDS: LEVOTHYROXINE 100MCG TABLET (0.1MG) PO SCH (06:00)
[2020-11-24] MEDS: metFORMIN (GLUCOPHAGE) 1000 MG TABLET PO SCH ×2 (08:00→17:01)
[2020-11-24] MEDS ORDERED: LORA2TA PO (08:39)
[2020-11-24] MEDS ORDERED: QUET200T2 PO (08:39)
[2020-11-24] MEDS ORDERED: ASPI-551 PO (08:39)
[2020-11-24] MEDS ORDERED: CYCL-707 PO (08:39)
[2020-11-24] MEDS ORDERED: HALO10TA20 PO ×2 (08:39)
[2020-11-24] MEDS ORDERED: ATEN25TA PO (08:39)
[2020-11-24] MEDS: lamoTRIgine 100MG TAB PO SCH (09:00)
[2020-11-24] MEDS: DOCUSATE SODIUM 100MG CAPSULE PO SCH ×2 (09:00→20:09)
[2020-11-24] MEDS: ASPIRIN 81MG ENTERIC TABLET PO SCH (09:00)
[2020-11-24] MEDS: oxyBUTYnin 5 MG TAB PO SCH (09:00)
[2020-11-24] MEDS: TAMSULOSIN 0.4 MG CAP PO SCH (09:00)
[2020-11-24] MEDS: VITAMIN D (CHOLECALCIFEROL) 400 INTERNATIONAL UNITS TAB PO SCH (09:00)
[2020-11-24] MEDS: atenoloL 25 MG TAB PO SCH ×2 (09:00→19:54)
[2020-11-24] MEDS: FLUTICASONE PROP 0.05% NASAL SPRAY 16 GM (FLONASE) NARES SCH (09:00)
[2020-11-24] MEDS: BENZTROPINE 1 MG TAB PO SCH ×2 (09:00→19:50)
[2020-11-24] MEDS ORDERED: MOM 30ML SUSPENSION UDC PO PRN (10:55)
[2020-11-24] MEDS: diphenhydrAMINE 50MG CAP PO PRN ×2 (12:48→21:09)
[2020-11-24] MEDS: LORazepam 2 MG TAB PO PRN ×2 (12:49→23:55)
--- NOTE | 2020-11-24 13:15 | ECGEPIP ---
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
[2020-11-24 16:19] VITALS: BP 146/81
[2020-11-24] MEDS: QUEtiapine FUMARATE 200 MG TAB PO SCH (19:50)
[2020-11-24] MEDS: MONTELUKAST 10 MG TAB PO SCH (19:50)
[2020-11-24] MEDS: CYCLOBENZAPRINE 10MG TABLET PO SCH (19:50)
[2020-11-24] MEDS: ATORVASTATIN 20 MG TAB PO SCH (19:50)
[2020-11-24] MEDS: traZODone 100 MG TAB PO SCH (19:51)
[2020-11-25] MEDS: LEVOTHYROXINE 100MCG TABLET (0.1MG) PO SCH (06:01)
[2020-11-25 07:30] VITALS: BP 139/94
[2020-11-25] MEDS: FLUTICASONE PROP 0.05% NASAL SPRAY 16 GM (FLONASE) NARES SCH (08:16)
[2020-11-25] MEDS: BENZTROPINE 1 MG TAB PO SCH ×2 (08:17→20:58)
[2020-11-25] MEDS: oxyBUTYnin 5 MG TAB PO SCH (08:17)
[2020-11-25] MEDS: TAMSULOSIN 0.4 MG CAP PO SCH (08:17)
[2020-11-25] MEDS: VITAMIN D (CHOLECALCIFEROL) 400 INTERNATIONAL UNITS TAB PO SCH (08:17)
[2020-11-25] MEDS: DOCUSATE SODIUM 100MG CAPSULE PO SCH ×2 (08:17→20:58)
[2020-11-25] MEDS: ASPIRIN 81MG ENTERIC TABLET PO SCH (08:17)
[2020-11-25] MEDS: lamoTRIgine 100MG TAB PO SCH (08:17)
[2020-11-25] MEDS: metFORMIN (GLUCOPHAGE) 1000 MG TABLET PO SCH ×2 (08:17→17:07)
[2020-11-25] MEDS: atenoloL 25 MG TAB PO SCH ×2 (08:18→21:03)
--- NOTE | 2020-11-25 10:08 | MHIPNPDOC ---
[facility] Progress Note Progress Note DATE OF SERVICE: 11/25/20 The patient came back from the medical service after he was briefly transferred due to complaint of chest pain. The patient stated that he is feeling better to day does not have any chest pain or discomfort and is in no acute distress. He slept well and is fully cooperating with the medicine and has not had any bizarre agitated or aggressive behavior and maintaining good control. His thoughts are still quite disorganized and patient is not able to carry on any lengthy meaningful conversation. HISTORY:. VITAL SIGNS: See below. NEW TEST RESULTS:. CURRENT MEDICATIONS: See below. MENTAL STATUS EXAMINATION: Patient is a 50-year old male, who is in no acute distress. Speech: Is relevant. Language skills are fair. Thought processes including: Not very productive. Thought content: Superficially denies any problem]. Abstract reasoning, and computation:. Description of associations: Remains somewhat flighty and circumstantial. Description of abnormal or psychotic thoughts: Superficially denies any hallucination or paranoia. Judgment: Poor. Insight:. poor. Orientation: Oriented. Recent and remote memory: No gross confusion. Attention span and concentration:. Language:. Fund of knowledge:. Mood: Reports feeling good. Affect: Inappropriate at times. DIAGNOSES: 1. Schizoaffective disorder. 2.. 3.. ASSESSMENT: No new complain MANAGEMENT PLAN: Continue with the current treatment for stabilization. TIME SPENT: 15 minutes. Vital Signs Vital Signs Date Time Temp Pulse Resp B/P (MAP) Pulse Ox O2 Delivery O2 Flow Rate FiO2 11/25/20 08:18 84 139/94 11/25/20 07:30 97.8 18 98 Room Air Current Medications Current Medications Medications (Trade) Dose Ordered Sig/Kailey Route PRN Reason Start Time Stop Time Status Last Admin Dose Admin Acetaminophen (Tylenol Tab) 650 mg Q6HP PRN PO HEADACHE or MILD DISCOMFORT 11/18/20 12:40 11/24/20 01:45 DC 11/23/20 03:09 Al Hydrox/Mg Hydrox/Simethicone (Mylanta) 30 ml Q4HP PRN PO HEARTBURN/INDIGESTION 11/18/20 12:40 11/24/20 01:45 DC 11/23/20 22:34 Amlodipine Besylate (Norvasc) 10 mg DAILY PO 11/19/20 09:00 11/22/20 08:55 DC 11/22/20 08:20 Aspirin (Ecotrin) 81 mg DAILY PO 11/24/20 09:00 11/25/20 08:17 Aspirin (Ecotrin) 81 mg QAM PO 11/22/20 09:00 11/24/20 01:45 DC 11/23/20 07:58 Atenolol (Tenormin) 25 mg BID PO 11/22/20 09:00 11/22/20 12:53 DC 11/22/20 09:51 Atenolol (Tenormin) 25 mg BID PO 11/24/20 09:00 11/25/20 08:18 Atenolol (Tenormin) 50 mg BID PO 11/22/20 21:00 11/24/20 00:13 DC 11/23/20 21:16 Atorvastatin Calcium (Lipitor) 40 mg QHS PO 11/18/20 21:00 11/24/20 01:45 DC 11/23/20 21:16 Atorvastatin Calcium (Lipitor) 40 mg QHS PO 11/24/20 21:00 11/24/20 19:50 Benztropine Mesylate (Cogentin) 1 mg BID PO 11/18/20 09:00 11/24/20 01:45 DC 11/23/20 21:15 Benztropine Mesylate (Cogentin) 1 mg BID PO 11/24/20 09:00 11/25/20 08:17 Cyclobenzaprine HCl (Flexeril) 10 mg QHS PO 11/20/20 21:00 11/24/20 01:45 DC 11/23/20 21:16 Cyclobenzaprine HCl (Flexeril) 10 mg QHS PO 11/24/20 21:00 11/24/20 19:50 Diphenhydramine HCl (Benadryl) 50 mg Q8HP PRN PO AGITATION 11/19/20 09:10 11/24/20 01:45 DC 11/23/20 17:51 Diphenhydramine HCl (Benadryl) 50 mg Q8HP PRN PO AGITATION 11/24/20 10:55 11/24/20 21:09 Diphenhydramine HCl (Benadryl) 50 mg STAT STAT PO 11/19/20 06:48 11/19/20 06:50 DC 11/19/20 07:06 Docusate Sodium (Colace) 100 mg BID PO 11/18/20 21:00 11/24/20 01:45 DC 11/23/20 21:15 Docusate Sodium (Colace) 100 mg BID PO 11/24/20 09:00 11/25/20 08:17 Fluticasone Propionate (Flonase 0.05% Nasal [place]) 2 spray DAILY NARES 11/19/20 09:00 11/24/20 01:45 DC 11/23/20 08:01 Fluticasone Propionate (Flonase 0.05% Nasal [place]) 2 spray DAILY NARES 11/24/20 09:00 11/25/20 08:16 Haloperidol (Haldol) 10 mg Q8HP PRN PO AGITATION 11/19/20 09:10 11/24/20 01:45 DC 11/23/20 23:21 Haloperidol (Haldol) 10 mg Q8HP PRN PO AGITATION 11/24/20 10:55 11/24/20 23:55 Haloperidol (Haldol) 10 mg QHS PO 11/19/20 21:00 11/19/20 09:48 DC Haloperidol (Haldol) 10 mg QHS PO 11/19/20 21:00 11/24/20 01:45 DC 11/23/20 21:16 Haloperidol (Haldol) 10 mg QHS PO 11/24/20 21:00 11/24/20 19:50 Haloperidol (Haldol) 10 mg STAT STAT PO 11/19/20 06:48 11/19/20 06:50 DC 11/19/20 07:06 Home Med (Med Rec Complete!) ASDIRECTED XX 11/17/20 23:25 11/17/20 23:24 DC Lamotrigine (LaMICtal) 200 mg DAILY PO 11/18/20 09:00 11/24/20 01:45 DC 11/23/20 08:00 Lamotrigine (LaMICtal) 200 mg DAILY PO 11/24/20 09:00 11/25/20 08:17 Levothyroxine Sodium (Synthroid) 100 mcg DAILY@06 PO 11/24/20 06:00 11/25/20 06:01 Levothyroxine Sodium (Synthroid) 100 mcg DAILY@0600 PO 11/19/20 06:00 11/24/20 01:45 DC 11/23/20 05:05 Lorazepam (Ativan) 2 mg Q8HP PRN PO AGITATION 11/19/20 09:10 11/24/20 01:45 DC 11/23/20 23:21 Lorazepam (Ativan) 2 mg Q8HP PRN PO AGITATION 11/24/20 10:55 11/24/20 23:55 Lorazepam (Ativan) 2 mg STAT STAT PO 11/19/20 06:48 11/19/20 06:50 DC 11/19/20 07:06 Losartan Potassium (Cozaar) 50 mg DAILY PO 11/19/20 09:00 11/22/20 08:55 DC 11/22/20 08:20 Magnesium Hydroxide (Milk Of Magnesia) 30 ml DAILYPRN PRN PO CONSTIPATION 11/18/20 12:40 11/24/20 01:45 DC Magnesium Hydroxide (Milk Of Magnesia) 30 ml DAILYPRN PRN PO CONSTIPATION 11/24/20 10:55 Metformin HCl (Glucophage) 1,000 mg BID@08,18 PO 11/24/20 08:00 11/25/20 08:17 Metformin HCl (Glucophage) 1,000 mg BID@0800,1800 PO 11/18/20 18:00 11/24/20 01:45 DC 11/23/20 17:34 Montelukast Sodium (Singulair) 10 mg QHS PO 11/18/20 21:00 11/24/20 01:45 DC 11/23/20 21:15 Montelukast Sodium (Singulair) 10 mg QHS PO 11/24/20 21:00 11/24/20 19:50 Oxybutynin Chloride (Ditropan) 5 mg DAILY PO 11/19/20 09:00 11/24/20 01:45 DC 11/23/20 08:00 Oxybutynin Chloride (Ditropan) 5 mg DAILY PO 11/24/20 09:00 11/25/20 08:17 Propranolol HCl (Inderal) 10 mg BID PO 11/18/20 21:00 11/22/20 08:55 DC 11/22/20 08:20 Quetiapine Fumarate (SEROquel) 200 mg QHS PO 11/19/20 21:00 11/24/20 01:45 DC 11/23/20 21:15 Quetiapine Fumarate (SEROquel) 200 mg QHS PO 11/24/20 21:00 11/24/20 19:50 Tamsulosin HCl (Flomax) 0.8 mg DAILY PO 11/19/20 09:00 11/24/20 01:45 DC 11/23/20 08:01 Tamsulosin HCl (Flomax) 0.8 mg DAILY PO 11/24/20 09:00 11/25/20 08:17 Trazodone HCl (Desyrel) 100 mg QPM PO 11/18/20 21:00 11/24/20 01:45 DC 11/23/20 21:16 Trazodone HCl (Desyrel) 100 mg QPM PO 11/24/20 21:00 11/24/20 19:51 Vitamin D (Vitamin D) 400 units DAILY PO 11/19/20 09:00 11/24/20 01:45 DC 11/23/20 08:00 Vitamin D (Vitamin D) 400 units DAILY PO 11/24/20 09:00 11/25/20 08:17 Allergies Coded Allergies: Penicillins (Verified Allergy, Intermediate, rash, 01/02/19) latex (Verified Allergy, Intermediate, rash, 12/13/19) divalproex sodium (Verified Allergy, Unknown, 01/02/19) MONI LINDQUIST M.D. Nov 25, 2020 10:08
[2020-11-25 16:17] VITALS: BP 160/90
[2020-11-25] MEDS: traZODone 100 MG TAB PO SCH (20:58)
[2020-11-25] MEDS: ATORVASTATIN 20 MG TAB PO SCH (20:58)
[2020-11-25] MEDS: MONTELUKAST 10 MG TAB PO SCH (20:58)
[2020-11-25] MEDS: QUEtiapine FUMARATE 200 MG TAB PO SCH (20:58)
[2020-11-25] MEDS: CYCLOBENZAPRINE 10MG TABLET PO SCH (20:58)
[2020-11-25] MEDS: diphenhydrAMINE 50MG CAP PO PRN (21:27)
[2020-11-25] MEDS: LORazepam 2 MG TAB PO PRN (22:24)
[2020-11-26] MEDS ORDERED: HALOPERIDOL 5MG/ML VIAL (J1630 PER 1) IM STA (02:41)
[2020-11-26] MEDS ORDERED: diphenhydrAMINE 50MG/ML VIAL (J1200) IM STA (02:41)
[2020-11-26] MEDS ORDERED: LORazepam 2 MG/ML VIAL IM STA (02:41)
[2020-11-26] MEDS ORDERED: HALOPERIDOL 5MG/ML VIAL (J1630 PER 1) As Ordered ONE (02:42)
[2020-11-26] MEDS ORDERED: diphenhydrAMINE 50MG/ML VIAL (J1200) As Ordered ONE (02:43)
[2020-11-26] MEDS ORDERED: LORazepam 2 MG/ML VIAL As Ordered ONE (02:44)
[2020-11-26 04:37] VITALS: BP 139/87
[2020-11-26] MEDS: LEVOTHYROXINE 100MCG TABLET (0.1MG) PO SCH (06:05)
[2020-11-26 06:52] VITALS: BP 152/94
[2020-11-26] MEDS: FLUTICASONE PROP 0.05% NASAL SPRAY 16 GM (FLONASE) NARES SCH (09:04)
[2020-11-26] MEDS: atenoloL 25 MG TAB PO SCH ×2 (09:04→20:08)
[2020-11-26] MEDS: oxyBUTYnin 5 MG TAB PO SCH (09:04)
[2020-11-26] MEDS: lamoTRIgine 100MG TAB PO SCH (09:05)
[2020-11-26] MEDS: metFORMIN (GLUCOPHAGE) 1000 MG TABLET PO SCH ×2 (09:05→17:30)
[2020-11-26] MEDS: ASPIRIN 81MG ENTERIC TABLET PO SCH (09:05)
[2020-11-26] MEDS: BENZTROPINE 1 MG TAB PO SCH ×2 (09:05→20:08)
[2020-11-26] MEDS: DOCUSATE SODIUM 100MG CAPSULE PO SCH ×2 (09:05→20:08)
[2020-11-26] MEDS: TAMSULOSIN 0.4 MG CAP PO SCH (09:05)
[2020-11-26] MEDS: VITAMIN D (CHOLECALCIFEROL) 400 INTERNATIONAL UNITS TAB PO SCH (09:05)
--- NOTE | 2020-11-26 10:14 | MHIPNPDOC ---
[facility] Progress Note Progress Note DATE OF SERVICE: 11/26/20 The patient appears more preoccupied and is quite disorganized. He is mumbling somewhat incoherently and unable to have a rational relevant conversation. He appears very perplexed and somewhat labile with inappropriate smiles but denies any physical pain or discomfort and maintaining fairly good control. He appears actively hallucinating and grossly disorganized but denies any active lethality. HISTORY: . VITAL SIGNS: See below. NEW TEST RESULTS: . CURRENT MEDICATIONS: See below. MENTAL STATUS EXAMINATION: Patient is a [50]-year old male, who is [in control]. Speech: Is [rambling and loose]. Language skills are [poor]. Thought processes including: Quite disorganized. Thought content: Difficult to evaluate. Abstract reasoning, and computation:. Description of associations: Disorganized. Description of abnormal or psychotic thoughts: Appears actively hallucinating. Judgment: Poor. Insight: poor]. Orientation: Appears oriented. Recent and remote memory:. Attention span and concentration:. Language:. Fund of knowledge:. Mood: Anxious preoccupied. Affect: Labile. DIAGNOSES: 1.. Bipolar disorder mixed 2.. Rule out schizoaffective disorder 3.. ASSESSMENT: Patient seems to be somewhat regressed MANAGEMENT PLAN: Knee stabilization. TIME SPENT: 15 minutes. Vital Signs Vital Signs Date Time Temp Pulse Resp B/P (MAP) Pulse Ox O2 Delivery O2 Flow Rate FiO2 11/26/20 06:52 96.7 80 20 152/94 (113) 96 Room Air Current Medications Current Medications Medications (Trade) Dose Ordered Sig/Kailey Route PRN Reason Start Time Stop Time Status Last Admin Dose Admin Acetaminophen (Tylenol Tab) 650 mg Q6HP PRN PO HEADACHE or MILD DISCOMFORT 11/18/20 12:40 11/24/20 01:45 DC 11/23/20 03:09 Al Hydrox/Mg Hydrox/Simethicone (Mylanta) 30 ml Q4HP PRN PO HEARTBURN/INDIGESTION 11/18/20 12:40 11/24/20 01:45 DC 11/23/20 22:34 Amlodipine Besylate (Norvasc) 10 mg DAILY PO 11/19/20 09:00 11/22/20 08:55 DC 11/22/20 08:20 Aspirin (Ecotrin) 81 mg DAILY PO 11/24/20 09:00 11/26/20 09:05 Aspirin (Ecotrin) 81 mg QAM PO 11/22/20 09:00 11/24/20 01:45 DC 11/23/20 07:58 Atenolol (Tenormin) 25 mg BID PO 11/22/20 09:00 11/22/20 12:53 DC 11/22/20 09:51 Atenolol (Tenormin) 25 mg BID PO 11/24/20 09:00 11/26/20 09:04 Atenolol (Tenormin) 50 mg BID PO 11/22/20 21:00 11/24/20 00:13 DC 11/23/20 21:16 Atorvastatin Calcium (Lipitor) 40 mg QHS PO 11/18/20 21:00 11/24/20 01:45 DC 11/23/20 21:16 Atorvastatin Calcium (Lipitor) 40 mg QHS PO 11/24/20 21:00 11/25/20 20:58 Benztropine Mesylate (Cogentin) 1 mg BID PO 11/18/20 09:00 11/24/20 01:45 DC 11/23/20 21:15 Benztropine Mesylate (Cogentin) 1 mg BID PO 11/24/20 09:00 11/26/20 09:05 Cyclobenzaprine HCl (Flexeril) 10 mg QHS PO 11/20/20 21:00 11/24/20 01:45 DC 11/23/20 21:16 Cyclobenzaprine HCl (Flexeril) 10 mg QHS PO 11/24/20 21:00 11/25/20 20:58 Diphenhydramine HCl (Benadryl) 50 mg Q8HP PRN PO AGITATION 11/19/20 09:10 11/24/20 01:45 DC 11/23/20 17:51 Diphenhydramine HCl (Benadryl) 50 mg Q8HP PRN PO AGITATION 11/24/20 10:55 11/25/20 21:27 Diphenhydramine HCl (Benadryl) 50 mg STAT STAT IM 11/26/20 02:41 11/26/20 02:44 DC 11/26/20 02:53 Diphenhydramine HCl (Benadryl) 50 mg STAT STAT PO 11/19/20 06:48 11/19/20 06:50 DC 11/19/20 07:06 Docusate Sodium (Colace) 100 mg BID PO 11/18/20 21:00 11/24/20 01:45 DC 11/23/20 21:15 Docusate Sodium (Colace) 100 mg BID PO 11/24/20 09:00 11/26/20 09:05 Fluticasone Propionate (Flonase 0.05% Nasal [place]) 2 spray DAILY NARES 11/19/20 09:00 11/24/20 01:45 DC 11/23/20 08:01 Fluticasone Propionate (Flonase 0.05% Nasal [place]) 2 spray DAILY NARES 11/24/20 09:00 11/26/20 09:04 Haloperidol (Haldol) 10 mg Q8HP PRN PO AGITATION 11/19/20 09:10 11/24/20 01:45 DC 11/23/20 23:21 Haloperidol (Haldol) 10 mg Q8HP PRN PO AGITATION 11/24/20 10:55 11/25/20 22:24 Haloperidol (Haldol) 10 mg QHS PO 11/19/20 21:00 11/19/20 09:48 DC Haloperidol (Haldol) 10 mg QHS PO 11/19/20 21:00 11/24/20 01:45 DC 11/23/20 21:16 Haloperidol (Haldol) 10 mg QHS PO 11/24/20 21:00 11/25/20 20:58 Haloperidol (Haldol) 10 mg STAT STAT IM 11/26/20 02:41 11/26/20 02:44 DC 11/26/20 02:52 Haloperidol (Haldol) 10 mg STAT STAT PO 11/19/20 06:48 11/19/20 06:50 DC 11/19/20 07:06 Home Med (Med Rec Complete!) ASDIRECTED XX 11/17/20 23:25 11/17/20 23:24 DC Lamotrigine (LaMICtal) 200 mg DAILY PO 11/18/20 09:00 11/24/20 01:45 DC 11/23/20 08:00 Lamotrigine (LaMICtal) 200 mg DAILY PO 11/24/20 09:00 11/26/20 09:05 Levothyroxine Sodium (Synthroid) 100 mcg DAILY@06 PO 11/24/20 06:00 11/26/20 06:05 Levothyroxine Sodium (Synthroid) 100 mcg DAILY@0600 PO 11/19/20 06:00 11/24/20 01:45 DC 11/23/20 05:05 Lorazepam (Ativan) 2 mg Q8HP PRN PO AGITATION 11/19/20 09:10 11/24/20 01:45 DC 11/23/20 23:21 Lorazepam (Ativan) 2 mg Q8HP PRN PO AGITATION 11/24/20 10:55 11/25/20 22:24 Lorazepam (Ativan) 2 mg STAT STAT IM 11/26/20 02:41 11/26/20 02:44 DC 11/26/20 02:53 Lorazepam (Ativan) 2 mg STAT STAT PO 11/19/20 06:48 11/19/20 06:50 DC 11/19/20 07:06 Losartan Potassium (Cozaar) 50 mg DAILY PO 11/19/20 09:00 11/22/20 08:55 DC 11/22/20 08:20 Magnesium Hydroxide (Milk Of Magnesia) 30 ml DAILYPRN PRN PO CONSTIPATION 11/18/20 12:40 11/24/20 01:45 DC Magnesium Hydroxide (Milk Of Magnesia) 30 ml DAILYPRN PRN PO CONSTIPATION 11/24/20 10:55 Metformin HCl (Glucophage) 1,000 mg BID@08,18 PO 11/24/20 08:00 11/26/20 09:05 Metformin HCl (Glucophage) 1,000 mg BID@0800,1800 PO 11/18/20 18:00 11/24/20 01:45 DC 11/23/20 17:34 Montelukast Sodium (Singulair) 10 mg QHS PO 11/18/20 21:00 11/24/20 01:45 DC 11/23/20 21:15 Montelukast Sodium (Singulair) 10 mg QHS PO 11/24/20 21:00 11/25/20 20:58 Oxybutynin Chloride (Ditropan) 5 mg DAILY PO 11/19/20 09:00 11/24/20 01:45 DC 11/23/20 08:00 Oxybutynin Chloride (Ditropan) 5 mg DAILY PO 11/24/20 09:00 11/26/20 09:04 Propranolol HCl (Inderal) 10 mg BID PO 11/18/20 21:00 11/22/20 08:55 DC 11/22/20 08:20 Quetiapine Fumarate (SEROquel) 200 mg QHS PO 11/19/20 21:00 11/24/20 01:45 DC 11/23/20 21:15 Quetiapine Fumarate (SEROquel) 200 mg QHS PO 11/24/20 21:00 11/25/20 20:58 Tamsulosin HCl (Flomax) 0.8 mg DAILY PO 11/19/20 09:00 11/24/20 01:45 DC 11/23/20 08:01 Tamsulosin HCl (Flomax) 0.8 mg DAILY PO 11/24/20 09:00 11/26/20 09:05 Trazodone HCl (Desyrel) 100 mg QPM PO 11/18/20 21:00 11/24/20 01:45 DC 11/23/20 21:16 Trazodone HCl (Desyrel) 100 mg QPM PO 11/24/20 21:00 11/25/20 20:58 Vitamin D (Vitamin D) 400 units DAILY PO 11/19/20 09:00 11/24/20 01:45 DC 11/23/20 08:00 Vitamin D (Vitamin D) 400 units DAILY PO 11/24/20 09:00 11/26/20 09:05 Allergies Coded Allergies: Penicillins (Verified Allergy, Intermediate, rash, 01/02/19) latex (Verified Allergy, Intermediate, rash, 12/13/19) divalproex sodium (Verified Allergy, Unknown, 01/02/19) MONI LINDQUIST M.D. Nov 26, 2020 10:14
[2020-11-26] MEDS: diphenhydrAMINE 50MG CAP PO PRN ×2 (11:56→21:07)
[2020-11-26] MEDS: LORazepam 2 MG TAB PO PRN ×2 (11:56→21:07)
[2020-11-26 17:59] VITALS: BP 153/92
[2020-11-26] MEDS: ATORVASTATIN 20 MG TAB PO SCH (20:08)
[2020-11-26] MEDS: QUEtiapine FUMARATE 200 MG TAB PO SCH (20:08)
[2020-11-26] MEDS: MONTELUKAST 10 MG TAB PO SCH (20:08)
[2020-11-26] MEDS: CYCLOBENZAPRINE 10MG TABLET PO SCH (20:08)
[2020-11-26] MEDS: traZODone 100 MG TAB PO SCH (20:08)
[2020-11-27] MEDS: LEVOTHYROXINE 100MCG TABLET (0.1MG) PO SCH (06:43)
[2020-11-27] MEDS: oxyBUTYnin 5 MG TAB PO SCH (08:23)
[2020-11-27] MEDS: metFORMIN (GLUCOPHAGE) 1000 MG TABLET PO SCH ×2 (08:23→18:00)
[2020-11-27] MEDS: FLUTICASONE PROP 0.05% NASAL SPRAY 16 GM (FLONASE) NARES SCH (08:23)
[2020-11-27] MEDS: VITAMIN D (CHOLECALCIFEROL) 400 INTERNATIONAL UNITS TAB PO SCH (08:23)
[2020-11-27] MEDS: TAMSULOSIN 0.4 MG CAP PO SCH (08:24)
[2020-11-27] MEDS: lamoTRIgine 100MG TAB PO SCH (08:24)
[2020-11-27] MEDS: DOCUSATE SODIUM 100MG CAPSULE PO SCH ×2 (08:25→20:39)
[2020-11-27] MEDS: atenoloL 25 MG TAB PO SCH ×2 (08:25→20:39)
[2020-11-27] MEDS: BENZTROPINE 1 MG TAB PO SCH ×2 (08:25→20:38)
[2020-11-27] MEDS: ASPIRIN 81MG ENTERIC TABLET PO SCH (08:25)
[2020-11-27] MEDS: LORazepam 2 MG TAB PO PRN (10:17)
[2020-11-27] MEDS: diphenhydrAMINE 50MG CAP PO PRN (10:17)
--- NOTE | 2020-11-27 11:07 | MHIPNPDOC ---
[facility] Progress Note Progress Note DATE OF SERVICE: 11/27/20 So far the patient is not showing much improvement despite his being very compliant with all of the medications. He is extremely preoccupied and when when approached he is mumbling and unable to give any coherent response and showing extremely disorganized thoughts. He appears perplexed preoccupied but he is in control within no agitated or aggressive behavior. He is due for his Haldol decanoate injection tomorrow we will continue with his current medications. HISTORY:. VITAL SIGNS: See below. NEW TEST RESULTS:. CURRENT MEDICATIONS: See below. MENTAL STATUS EXAMINATION: Patient is a 50-year old male, who is in no acute distress. Speech: Is disorganized. Language skills are poor. Thought processes including: Loose circumstantial. Thought content: Appears extremely preoccupied. Abstract reasoning, and computation:. Description of associations: Grossly disorganized. Description of abnormal or psychotic thoughts: Appears actively hallucinating and paranoid. Judgment: Poor. Insight: Very limited, good, fair. Poor poor. Orientation: Appears oriented to place. Recent and remote memory: Difficult to evaluate. Attention span and concentration:. Language:. Fund of knowledge:. Mood: Anxious preoccupied. Affect: Blunted perplexity labile. DIAGNOSES: 1.. Bipolar disorder type I mixed 2.. 3.. ASSESSMENT: No significant improvement MANAGEMENT PLAN: Continue with the current medicine for stabilization. TIME SPENT: 15 minutes. Vital Signs Vital Signs Date Time Temp Pulse Resp B/P (MAP) Pulse Ox O2 Delivery O2 Flow Rate FiO2 11/27/20 08:25 138/77 11/26/20 20:08 93 11/26/20 17:59 97.9 18 95 11/26/20 06:52 Room Air Current Medications Current Medications Medications (Trade) Dose Ordered Sig/Kailey Route PRN Reason Start Time Stop Time Status Last Admin Dose Admin Acetaminophen (Tylenol Tab) 650 mg Q6HP PRN PO HEADACHE or MILD DISCOMFORT 11/18/20 12:40 11/24/20 01:45 DC 11/23/20 03:09 Al Hydrox/Mg Hydrox/Simethicone (Mylanta) 30 ml Q4HP PRN PO HEARTBURN/INDIGESTION 11/18/20 12:40 11/24/20 01:45 DC 11/23/20 22:34 Amlodipine Besylate (Norvasc) 10 mg DAILY PO 11/19/20 09:00 11/22/20 08:55 DC 11/22/20 08:20 Aspirin (Ecotrin) 81 mg DAILY PO 11/24/20 09:00 11/27/20 08:25 Aspirin (Ecotrin) 81 mg QAM PO 11/22/20 09:00 11/24/20 01:45 DC 11/23/20 07:58 Atenolol (Tenormin) 25 mg BID PO 11/22/20 09:00 11/22/20 12:53 DC 11/22/20 09:51 Atenolol (Tenormin) 25 mg BID PO 11/24/20 09:00 11/27/20 08:25 Atenolol (Tenormin) 50 mg BID PO 11/22/20 21:00 11/24/20 00:13 DC 11/23/20 21:16 Atorvastatin Calcium (Lipitor) 40 mg QHS PO 11/18/20 21:00 11/24/20 01:45 DC 11/23/20 21:16 Atorvastatin Calcium (Lipitor) 40 mg QHS PO 11/24/20 21:00 11/26/20 20:08 Benztropine Mesylate (Cogentin) 1 mg BID PO 11/18/20 09:00 11/24/20 01:45 DC 11/23/20 21:15 Benztropine Mesylate (Cogentin) 1 mg BID PO 11/24/20 09:00 11/27/20 08:25 Cyclobenzaprine HCl (Flexeril) 10 mg QHS PO 11/20/20 21:00 11/24/20 01:45 DC 11/23/20 21:16 Cyclobenzaprine HCl (Flexeril) 10 mg QHS PO 11/24/20 21:00 11/26/20 20:08 Diphenhydramine HCl (Benadryl) 50 mg Q8HP PRN PO AGITATION 11/19/20 09:10 11/24/20 01:45 DC 11/23/20 17:51 Diphenhydramine HCl (Benadryl) 50 mg Q8HP PRN PO AGITATION 11/24/20 10:55 11/27/20 10:17 Diphenhydramine HCl (Benadryl) 50 mg STAT STAT IM 11/26/20 02:41 11/26/20 02:44 DC 11/26/20 02:53 Diphenhydramine HCl (Benadryl) 50 mg STAT STAT PO 11/19/20 06:48 11/19/20 06:50 DC 11/19/20 07:06 Docusate Sodium (Colace) 100 mg BID PO 11/18/20 21:00 11/24/20 01:45 DC 11/23/20 21:15 Docusate Sodium (Colace) 100 mg BID PO 11/24/20 09:00 11/27/20 08:25 Fluticasone Propionate (Flonase 0.05% Nasal [place]) 2 spray DAILY NARES 11/19/20 09:00 11/24/20 01:45 DC 11/23/20 08:01 Fluticasone Propionate (Flonase 0.05% Nasal [place]) 2 spray DAILY NARES 11/24/20 09:00 11/27/20 08:23 Haloperidol (Haldol) 10 mg Q8HP PRN PO AGITATION 11/19/20 09:10 11/24/20 01:45 DC 11/23/20 23:21 Haloperidol (Haldol) 10 mg Q8HP PRN PO AGITATION 11/24/20 10:55 11/27/20 10:17 Haloperidol (Haldol) 10 mg QHS PO 11/19/20 21:00 11/19/20 09:48 DC Haloperidol (Haldol) 10 mg QHS PO 11/19/20 21:00 11/24/20 01:45 DC 11/23/20 21:16 Haloperidol (Haldol) 10 mg QHS PO 11/24/20 21:00 11/26/20 20:08 Haloperidol (Haldol) 10 mg STAT STAT IM 11/26/20 02:41 11/26/20 02:44 DC 11/26/20 02:52 Haloperidol (Haldol) 10 mg STAT STAT PO 11/19/20 06:48 11/19/20 06:50 DC 11/19/20 07:06 Home Med (Med Rec Complete!) ASDIRECTED XX 11/17/20 23:25 11/17/20 23:24 DC Lamotrigine (LaMICtal) 200 mg DAILY PO 11/18/20 09:00 11/24/20 01:45 DC 11/23/20 08:00 Lamotrigine (LaMICtal) 200 mg DAILY PO 11/24/20 09:00 11/27/20 08:24 Levothyroxine Sodium (Synthroid) 100 mcg DAILY@06 PO 11/24/20 06:00 11/27/20 06:43 Levothyroxine Sodium (Synthroid) 100 mcg DAILY@0600 PO 11/19/20 06:00 11/24/20 01:45 DC 11/23/20 05:05 Lorazepam (Ativan) 2 mg Q8HP PRN PO AGITATION 11/19/20 09:10 11/24/20 01:45 DC 11/23/20 23:21 Lorazepam (Ativan) 2 mg Q8HP PRN PO AGITATION 11/24/20 10:55 11/27/20 10:17 Lorazepam (Ativan) 2 mg STAT STAT IM 11/26/20 02:41 11/26/20 02:44 DC 11/26/20 02:53 Lorazepam (Ativan) 2 mg STAT STAT PO 11/19/20 06:48 11/19/20 06:50 DC 11/19/20 07:06 Losartan Potassium (Cozaar) 50 mg DAILY PO 11/19/20 09:00 11/22/20 08:55 DC 11/22/20 08:20 Magnesium Hydroxide (Milk Of Magnesia) 30 ml DAILYPRN PRN PO CONSTIPATION 11/18/20 12:40 11/24/20 01:45 DC Magnesium Hydroxide (Milk Of Magnesia) 30 ml DAILYPRN PRN PO CONSTIPATION 11/24/20 10:55 Metformin HCl (Glucophage) 1,000 mg BID@08,18 PO 11/24/20 08:00 11/27/20 08:23 Metformin HCl (Glucophage) 1,000 mg BID@0800,1800 PO 11/18/20 18:00 11/24/20 01:45 DC 11/23/20 17:34 Montelukast Sodium (Singulair) 10 mg QHS PO 11/18/20 21:00 11/24/20 01:45 DC 11/23/20 21:15 Montelukast Sodium (Singulair) 10 mg QHS PO 11/24/20 21:00 11/26/20 20:08 Oxybutynin Chloride (Ditropan) 5 mg DAILY PO 11/19/20 09:00 11/24/20 01:45 DC 11/23/20 08:00 Oxybutynin Chloride (Ditropan) 5 mg DAILY PO 11/24/20 09:00 11/27/20 08:23 Propranolol HCl (Inderal) 10 mg BID PO 11/18/20 21:00 11/22/20 08:55 DC 11/22/20 08:20 Quetiapine Fumarate (SEROquel) 200 mg QHS PO 11/19/20 21:00 11/24/20 01:45 DC 11/23/20 21:15 Quetiapine Fumarate (SEROquel) 200 mg QHS PO 11/24/20 21:00 11/26/20 20:08 Tamsulosin HCl (Flomax) 0.8 mg DAILY PO 11/19/20 09:00 11/24/20 01:45 DC 11/23/20 08:01 Tamsulosin HCl (Flomax) 0.8 mg DAILY PO 11/24/20 09:00 11/27/20 08:24 Trazodone HCl (Desyrel) 100 mg QPM PO 11/18/20 21:00 11/24/20 01:45 DC 11/23/20 21:16 Trazodone HCl (Desyrel) 100 mg QPM PO 11/24/20 21:00 11/26/20 20:08 Vitamin D (Vitamin D) 400 units DAILY PO 11/19/20 09:00 11/24/20 01:45 DC 11/23/20 08:00 Vitamin D (Vitamin D) 400 units DAILY PO 11/24/20 09:00 11/27/20 08:23 Allergies Coded Allergies: Penicillins (Verified Allergy, Intermediate, rash, 01/02/19) latex (Verified Allergy, Intermediate, rash, 12/13/19) divalproex sodium (Verified Allergy, Unknown, 01/02/19) MONI LINDQUIST M.D. Nov 27, 2020 11:07
[2020-11-27] MEDS ORDERED: HALD100I2 IM (11:46)
[2020-11-27 16:22] VITALS: BP 183/90
[2020-11-27] MEDS: CYCLOBENZAPRINE 10MG TABLET PO SCH (20:38)
[2020-11-27] MEDS: MONTELUKAST 10 MG TAB PO SCH (20:38)
[2020-11-27] MEDS: ATORVASTATIN 20 MG TAB PO SCH (20:39)
[2020-11-27] MEDS: QUEtiapine FUMARATE 200 MG TAB PO SCH (20:39)
[2020-11-27] MEDS: traZODone 100 MG TAB PO SCH (20:39)
[2020-11-28] MEDS: diphenhydrAMINE 50MG CAP PO PRN (05:14)
[2020-11-28] MEDS: LEVOTHYROXINE 100MCG TABLET (0.1MG) PO SCH (05:14)
[2020-11-28] MEDS: LORazepam 2 MG TAB PO PRN (05:14)
[2020-11-28 06:02] VITALS: BP 154/99
[2020-11-28] MEDS: oxyBUTYnin 5 MG TAB PO SCH (09:06)
[2020-11-28] MEDS: metFORMIN (GLUCOPHAGE) 1000 MG TABLET PO SCH ×2 (09:06→18:00)
[2020-11-28] MEDS: VITAMIN D (CHOLECALCIFEROL) 400 INTERNATIONAL UNITS TAB PO SCH (09:06)
[2020-11-28] MEDS: TAMSULOSIN 0.4 MG CAP PO SCH (09:06)
[2020-11-28] MEDS: atenoloL 25 MG TAB PO SCH ×2 (09:07→20:18)
[2020-11-28] MEDS: ASPIRIN 81MG ENTERIC TABLET PO SCH (09:07)
[2020-11-28] MEDS: lamoTRIgine 100MG TAB PO SCH (09:07)
[2020-11-28] MEDS: DOCUSATE SODIUM 100MG CAPSULE PO SCH ×2 (09:07→20:17)
[2020-11-28] MEDS: BENZTROPINE 1 MG TAB PO SCH ×2 (09:07→20:18)
--- NOTE | 2020-11-28 10:20 | MHIPNPDOC ---
[facility] Progress Note Progress Note DATE OF SERVICE: 11/28/20 The patient remains a extremely preoccupied and appears grossly disorganized. He is showing no significant improvement even though he has been complying with his oral medications. He is due for his Haldol Decanoate injection so we will start 100 mg IM today and to continue every 4 weeks and we will convert him to 2 P.C. status and try to stabilize. HISTORY:. VITAL SIGNS: See below. NEW TEST RESULTS:. CURRENT MEDICATIONS: See below. MENTAL STATUS EXAMINATION: Patient is a 50-year old male, who is blunted preoccupied. Speech: Is not very productive. Language skills are poor. Thought processes including: Disorganized. Thought content: Difficult to comprehend. Abstract reasoning, and computation: Poor. Description of associations: Grossly disorganized. Description of abnormal or psychotic thoughts: Appears actively hallucinating. Judgment: Poor. Insight: Poor. Orientation: Oriented to place. Recent and remote memory: No gross impairment. Attention span and concentration:. Language:. Fund of knowledge:. Mood: Claims feeling okay. Affect: Blunted preoccupied. DIAGNOSES: 1.. Bipolar disorder mixed with psychotic symptoms 2.. Rule out schizoaffective disorder 3.. ASSESSMENT: No significant improvement MANAGEMENT PLAN: Resume his Haldol Decanoate injection. TIME SPENT: 10 minutes. Vital Signs Vital Signs Date Time Temp Pulse Resp B/P (MAP) Pulse Ox O2 Delivery O2 Flow Rate FiO2 11/28/20 09:07 101 149/90 11/28/20 06:02 96.8 18 96 Room Air Current Medications Current Medications Medications (Trade) Dose Ordered Sig/Kailey Route PRN Reason Start Time Stop Time Status Last Admin Dose Admin Acetaminophen (Tylenol Tab) 650 mg Q6HP PRN PO HEADACHE or MILD DISCOMFORT 11/18/20 12:40 11/24/20 01:45 DC 11/23/20 03:09 Al Hydrox/Mg Hydrox/Simethicone (Mylanta) 30 ml Q4HP PRN PO HEARTBURN/INDIGESTION 11/18/20 12:40 11/24/20 01:45 DC 11/23/20 22:34 Amlodipine Besylate (Norvasc) 10 mg DAILY PO 11/19/20 09:00 11/22/20 08:55 DC 11/22/20 08:20 Aspirin (Ecotrin) 81 mg DAILY PO 11/24/20 09:00 11/28/20 09:07 Aspirin (Ecotrin) 81 mg QAM PO 11/22/20 09:00 11/24/20 01:45 DC 11/23/20 07:58 Atenolol (Tenormin) 25 mg BID PO 11/22/20 09:00 11/22/20 12:53 DC 11/22/20 09:51 Atenolol (Tenormin) 25 mg BID PO 11/24/20 09:00 11/28/20 09:07 Atenolol (Tenormin) 50 mg BID PO 11/22/20 21:00 11/24/20 00:13 DC 11/23/20 21:16 Atorvastatin Calcium (Lipitor) 40 mg QHS PO 11/18/20 21:00 11/24/20 01:45 DC 11/23/20 21:16 Atorvastatin Calcium (Lipitor) 40 mg QHS PO 11/24/20 21:00 11/27/20 20:39 Benztropine Mesylate (Cogentin) 1 mg BID PO 11/18/20 09:00 11/24/20 01:45 DC 11/23/20 21:15 Benztropine Mesylate (Cogentin) 1 mg BID PO 11/24/20 09:00 11/28/20 09:07 Cyclobenzaprine HCl (Flexeril) 10 mg QHS PO 11/20/20 21:00 11/24/20 01:45 DC 11/23/20 21:16 Cyclobenzaprine HCl (Flexeril) 10 mg QHS PO 11/24/20 21:00 11/27/20 20:38 Diphenhydramine HCl (Benadryl) 50 mg Q8HP PRN PO AGITATION 11/19/20 09:10 11/24/20 01:45 DC 11/23/20 17:51 Diphenhydramine HCl (Benadryl) 50 mg Q8HP PRN PO AGITATION 11/24/20 10:55 11/28/20 05:14 Diphenhydramine HCl (Benadryl) 50 mg STAT STAT IM 11/26/20 02:41 11/26/20 02:44 DC 11/26/20 02:53 Diphenhydramine HCl (Benadryl) 50 mg STAT STAT PO 11/19/20 06:48 11/19/20 06:50 DC 11/19/20 07:06 Docusate Sodium (Colace) 100 mg BID PO 11/18/20 21:00 11/24/20 01:45 DC 11/23/20 21:15 Docusate Sodium (Colace) 100 mg BID PO 11/24/20 09:00 11/28/20 09:07 Fluticasone Propionate (Flonase 0.05% Nasal [place]) 2 spray DAILY NARES 11/19/20 09:00 11/24/20 01:45 DC 11/23/20 08:01 Fluticasone Propionate (Flonase 0.05% Nasal [place]) 2 spray DAILY NARES 11/24/20 09:00 11/27/20 08:23 Haloperidol (Haldol) 10 mg Q8HP PRN PO AGITATION 11/19/20 09:10 11/24/20 01:45 DC 11/23/20 23:21 Haloperidol (Haldol) 10 mg Q8HP PRN PO AGITATION 11/24/20 10:55 11/28/20 05:14 Haloperidol (Haldol) 10 mg QHS PO 11/19/20 21:00 11/19/20 09:48 DC Haloperidol (Haldol) 10 mg QHS PO 11/19/20 21:00 11/24/20 01:45 DC 11/23/20 21:16 Haloperidol (Haldol) 10 mg QHS PO 11/24/20 21:00 11/27/20 20:38 Haloperidol (Haldol) 10 mg STAT STAT IM 11/26/20 02:41 11/26/20 02:44 DC 11/26/20 02:52 Haloperidol (Haldol) 10 mg STAT STAT PO 11/19/20 06:48 11/19/20 06:50 DC 11/19/20 07:06 Home Med (Med Rec Complete!) ASDIRECTED XX 11/17/20 23:25 11/17/20 23:24 DC Lamotrigine (LaMICtal) 200 mg DAILY PO 11/18/20 09:00 11/24/20 01:45 DC 11/23/20 08:00 Lamotrigine (LaMICtal) 200 mg DAILY PO 11/24/20 09:00 11/28/20 09:07 Levothyroxine Sodium (Synthroid) 100 mcg DAILY@06 PO 11/24/20 06:00 11/28/20 05:14 Levothyroxine Sodium (Synthroid) 100 mcg DAILY@0600 PO 11/19/20 06:00 11/24/20 01:45 DC 11/23/20 05:05 Lorazepam (Ativan) 2 mg Q8HP PRN PO AGITATION 11/19/20 09:10 11/24/20 01:45 DC 11/23/20 23:21 Lorazepam (Ativan) 2 mg Q8HP PRN PO AGITATION 11/24/20 10:55 11/28/20 05:14 Lorazepam (Ativan) 2 mg STAT STAT IM 11/26/20 02:41 11/26/20 02:44 DC 11/26/20 02:53 Lorazepam (Ativan) 2 mg STAT STAT PO 11/19/20 06:48 11/19/20 06:50 DC 11/19/20 07:06 Losartan Potassium (Cozaar) 50 mg DAILY PO 11/19/20 09:00 11/22/20 08:55 DC 11/22/20 08:20 Magnesium Hydroxide (Milk Of Magnesia) 30 ml DAILYPRN PRN PO CONSTIPATION 11/18/20 12:40 11/24/20 01:45 DC Magnesium Hydroxide (Milk Of Magnesia) 30 ml DAILYPRN PRN PO CONSTIPATION 11/24/20 10:55 Metformin HCl (Glucophage) 1,000 mg BID@08,18 PO 11/24/20 08:00 11/28/20 09:06 Metformin HCl (Glucophage) 1,000 mg BID@0800,1800 PO 11/18/20 18:00 11/24/20 01:45 DC 11/23/20 17:34 Montelukast Sodium (Singulair) 10 mg QHS PO 11/18/20 21:00 11/24/20 01:45 DC 11/23/20 21:15 Montelukast Sodium (Singulair) 10 mg QHS PO 11/24/20 21:00 11/27/20 20:38 Oxybutynin Chloride (Ditropan) 5 mg DAILY PO 11/19/20 09:00 11/24/20 01:45 DC 11/23/20 08:00 Oxybutynin Chloride (Ditropan) 5 mg DAILY PO 11/24/20 09:00 11/28/20 09:06 Propranolol HCl (Inderal) 10 mg BID PO 11/18/20 21:00 11/22/20 08:55 DC 11/22/20 08:20 Quetiapine Fumarate (SEROquel) 200 mg QHS PO 11/19/20 21:00 11/24/20 01:45 DC 11/23/20 21:15 Quetiapine Fumarate (SEROquel) 200 mg QHS PO 11/24/20 21:00 11/27/20 20:39 Tamsulosin HCl (Flomax) 0.8 mg DAILY PO 11/19/20 09:00 11/24/20 01:45 DC 11/23/20 08:01 Tamsulosin HCl (Flomax) 0.8 mg DAILY PO 11/24/20 09:00 11/28/20 09:06 Trazodone HCl (Desyrel) 100 mg QPM PO 11/18/20 21:00 11/24/20 01:45 DC 11/23/20 21:16 Trazodone HCl (Desyrel) 100 mg QPM PO 11/24/20 21:00 11/27/20 20:39 Vitamin D (Vitamin D) 400 units DAILY PO 11/19/20 09:00 11/24/20 01:45 DC 11/23/20 08:00 Vitamin D (Vitamin D) 400 units DAILY PO 11/24/20 09:00 11/28/20 09:06 Allergies Coded Allergies: Penicillins (Verified Allergy, Intermediate, rash, 01/02/19) latex (Verified Allergy, Intermediate, rash, 12/13/19) divalproex sodium (Verified Allergy, Unknown, 01/02/19) MONI LINDQUIST M.D. Nov 28, 2020 10:20
[2020-11-28] MEDS: FLUTICASONE PROP 0.05% NASAL SPRAY 16 GM (FLONASE) NARES SCH (13:26)
[2020-11-28] MEDS: HALOPERIDOL DECANOATE 100 MG/ML VIAL (J1631) IM SCH (13:26)
[2020-11-28 19:17] VITALS: BP 137/85
[2020-11-28] MEDS: QUEtiapine FUMARATE 200 MG TAB PO SCH (20:17)
[2020-11-28] MEDS: traZODone 100 MG TAB PO SCH (20:17)
[2020-11-28] MEDS: ATORVASTATIN 20 MG TAB PO SCH (20:18)
[2020-11-28] MEDS: CYCLOBENZAPRINE 10MG TABLET PO SCH (20:18)
[2020-11-28] MEDS: MONTELUKAST 10 MG TAB PO SCH (20:18)
[2020-11-29] MEDS: LEVOTHYROXINE 100MCG TABLET (0.1MG) PO SCH (05:54)
[2020-11-29 06:28] VITALS: BP 159/92
[2020-11-29] MEDS: oxyBUTYnin 5 MG TAB PO SCH (08:21)
[2020-11-29] MEDS: TAMSULOSIN 0.4 MG CAP PO SCH (08:21)
[2020-11-29] MEDS: metFORMIN (GLUCOPHAGE) 1000 MG TABLET PO SCH ×2 (08:22→17:01)
[2020-11-29] MEDS: VITAMIN D (CHOLECALCIFEROL) 400 INTERNATIONAL UNITS TAB PO SCH (08:22)
[2020-11-29] MEDS: lamoTRIgine 100MG TAB PO SCH (08:22)
[2020-11-29] MEDS: atenoloL 25 MG TAB PO SCH ×2 (08:22→22:02)
[2020-11-29] MEDS: ASPIRIN 81MG ENTERIC TABLET PO SCH (08:23)
[2020-11-29] MEDS: DOCUSATE SODIUM 100MG CAPSULE PO SCH ×2 (08:23→21:33)
[2020-11-29] MEDS: BENZTROPINE 1 MG TAB PO SCH ×2 (08:23→21:33)
[2020-11-29] MEDS: FLUTICASONE PROP 0.05% NASAL SPRAY 16 GM (FLONASE) NARES SCH (08:28)
--- NOTE | 2020-11-29 08:35 | MHIPNPDOC ---
[facility] Progress Note Progress Note DATE OF SERVICE: 11/29/20 Patient received Haldol Decanoate injection without any incident and reports no side effect. He remains in bed most of time appears very preoccupied and perpl exed but in control and no acting out behavior. He is denying any cough headache or any other physical symptoms and is in no acute physical distress. He remains markedly disorganized withdrawn and has been converted to 2 physician certificate status and is in need of further stabilization. HISTORY:. VITAL SIGNS: See below. NEW TEST RESULTS:. CURRENT MEDICATIONS: See below. MENTAL STATUS EXAMINATION: Patient is a 50-year old male, who is in no acute distress. Speech: Is not spontaneous and not productive. Language skills are fair. Thought processes including: Not able to engage in conversations. Thought content: Appears preoccupied and disorganized. Abstract reasoning, and computation:. Description of associations: Not productive. Description of abnormal or psychotic thoughts: Remains disorganized. Judgment: Poor. Insight: Poor. Orientation: Oriented to place. Recent and remote memory: No gross confusion. Attention span and concentration:. Language:. Fund of knowledge:. Mood: Appears anxious. Affect: Blunted perplexed. DIAGNOSES: 1.. Bipolar disorder mixed 2.. Rule out schizoaffective disorder 3.. ASSESSMENT: No significant improvement MANAGEMENT PLAN: Continue with the current treatment. TIME SPENT: 15 minutes. Vital Signs Vital Signs Date Time Temp Pulse Resp B/P (MAP) Pulse Ox O2 Delivery O2 Flow Rate FiO2 11/29/20 08:22 81 159/92 11/29/20 06:28 97.1 20 94 Room Air Current Medications Current Medications Medications (Trade) Dose Ordered Sig/Kailey Route PRN Reason Start Time Stop Time Status Last Admin Dose Admin Acetaminophen (Tylenol Tab) 650 mg Q6HP PRN PO HEADACHE or MILD DISCOMFORT 11/18/20 12:40 11/24/20 01:45 DC 11/23/20 03:09 Al Hydrox/Mg Hydrox/Simethicone (Mylanta) 30 ml Q4HP PRN PO HEARTBURN/INDIGESTION 11/18/20 12:40 11/24/20 01:45 DC 11/23/20 22:34 Amlodipine Besylate (Norvasc) 10 mg DAILY PO 11/19/20 09:00 11/22/20 08:55 DC 11/22/20 08:20 Aspirin (Ecotrin) 81 mg DAILY PO 11/24/20 09:00 11/29/20 08:23 Aspirin (Ecotrin) 81 mg QAM PO 11/22/20 09:00 11/24/20 01:45 DC 11/23/20 07:58 Atenolol (Tenormin) 25 mg BID PO 11/22/20 09:00 11/22/20 12:53 DC 11/22/20 09:51 Atenolol (Tenormin) 25 mg BID PO 11/24/20 09:00 11/29/20 08:22 Atenolol (Tenormin) 50 mg BID PO 11/22/20 21:00 11/24/20 00:13 DC 11/23/20 21:16 Atorvastatin Calcium (Lipitor) 40 mg QHS PO 11/18/20 21:00 11/24/20 01:45 DC 11/23/20 21:16 Atorvastatin Calcium (Lipitor) 40 mg QHS PO 11/24/20 21:00 11/28/20 20:18 Benztropine Mesylate (Cogentin) 1 mg BID PO 11/18/20 09:00 11/24/20 01:45 DC 11/23/20 21:15 Benztropine Mesylate (Cogentin) 1 mg BID PO 11/24/20 09:00 11/29/20 08:23 Cyclobenzaprine HCl (Flexeril) 10 mg QHS PO 11/20/20 21:00 11/24/20 01:45 DC 11/23/20 21:16 Cyclobenzaprine HCl (Flexeril) 10 mg QHS PO 11/24/20 21:00 11/28/20 20:18 Diphenhydramine HCl (Benadryl) 50 mg Q8HP PRN PO AGITATION 11/19/20 09:10 11/24/20 01:45 DC 11/23/20 17:51 Diphenhydramine HCl (Benadryl) 50 mg Q8HP PRN PO AGITATION 11/24/20 10:55 11/28/20 05:14 Diphenhydramine HCl (Benadryl) 50 mg STAT STAT IM 11/26/20 02:41 11/26/20 02:44 DC 11/26/20 02:53 Diphenhydramine HCl (Benadryl) 50 mg STAT STAT PO 11/19/20 06:48 11/19/20 06:50 DC 11/19/20 07:06 Docusate Sodium (Colace) 100 mg BID PO 11/18/20 21:00 11/24/20 01:45 DC 11/23/20 21:15 Docusate Sodium (Colace) 100 mg BID PO 11/24/20 09:00 11/29/20 08:23 Fluticasone Propionate (Flonase 0.05% Nasal [place]) 2 spray DAILY NARES 11/19/20 09:00 11/24/20 01:45 DC 11/23/20 08:01 Fluticasone Propionate (Flonase 0.05% Nasal [place]) 2 spray DAILY NARES 11/24/20 09:00 11/29/20 08:28 Haloperidol (Haldol) 10 mg Q8HP PRN PO AGITATION 11/19/20 09:10 11/24/20 01:45 DC 11/23/20 23:21 Haloperidol (Haldol) 10 mg Q8HP PRN PO AGITATION 11/24/20 10:55 11/28/20 05:14 Haloperidol (Haldol) 10 mg QHS PO 11/19/20 21:00 11/19/20 09:48 DC Haloperidol (Haldol) 10 mg QHS PO 11/19/20 21:00 11/24/20 01:45 DC 11/23/20 21:16 Haloperidol (Haldol) 10 mg QHS PO 11/24/20 21:00 11/28/20 20:18 Haloperidol (Haldol) 10 mg STAT STAT IM 11/26/20 02:41 11/26/20 02:44 DC 11/26/20 02:52 Haloperidol (Haldol) 10 mg STAT STAT PO 11/19/20 06:48 11/19/20 06:50 DC 11/19/20 07:06 Haloperidol Decanoate (Haldol Decanoate) 100 mg Q28D IM 11/28/20 12:00 11/28/20 13:26 Home Med (Med Rec Complete!) ASDIRECTED XX 11/17/20 23:25 11/17/20 23:24 DC Lamotrigine (LaMICtal) 200 mg DAILY PO 11/18/20 09:00 11/24/20 01:45 DC 11/23/20 08:00 Lamotrigine (LaMICtal) 200 mg DAILY PO 11/24/20 09:00 11/29/20 08:22 Levothyroxine Sodium (Synthroid) 100 mcg DAILY@06 PO 11/24/20 06:00 11/29/20 05:54 Levothyroxine Sodium (Synthroid) 100 mcg DAILY@0600 PO 11/19/20 06:00 11/24/20 01:45 DC 11/23/20 05:05 Lorazepam (Ativan) 2 mg Q8HP PRN PO AGITATION 11/19/20 09:10 11/24/20 01:45 DC 11/23/20 23:21 Lorazepam (Ativan) 2 mg Q8HP PRN PO AGITATION 11/24/20 10:55 11/28/20 05:14 Lorazepam (Ativan) 2 mg STAT STAT IM 11/26/20 02:41 11/26/20 02:44 DC 11/26/20 02:53 Lorazepam (Ativan) 2 mg STAT STAT PO 11/19/20 06:48 11/19/20 06:50 DC 11/19/20 07:06 Losartan Potassium (Cozaar) 50 mg DAILY PO 11/19/20 09:00 11/22/20 08:55 DC 11/22/20 08:20 Magnesium Hydroxide (Milk Of Magnesia) 30 ml DAILYPRN PRN PO CONSTIPATION 11/18/20 12:40 11/24/20 01:45 DC Magnesium Hydroxide (Milk Of Magnesia) 30 ml DAILYPRN PRN PO CONSTIPATION 11/24/20 10:55 Metformin HCl (Glucophage) 1,000 mg BID@08,18 PO 11/24/20 08:00 11/29/20 08:22 Metformin HCl (Glucophage) 1,000 mg BID@0800,1800 PO 11/18/20 18:00 11/24/20 01:45 DC 11/23/20 17:34 Montelukast Sodium (Singulair) 10 mg QHS PO 11/18/20 21:00 11/24/20 01:45 DC 11/23/20 21:15 Montelukast Sodium (Singulair) 10 mg QHS PO 11/24/20 21:00 11/28/20 20:18 Oxybutynin Chloride (Ditropan) 5 mg DAILY PO 11/19/20 09:00 11/24/20 01:45 DC 11/23/20 08:00 Oxybutynin Chloride (Ditropan) 5 mg DAILY PO 11/24/20 09:00 11/29/20 08:21 Propranolol HCl (Inderal) 10 mg BID PO 11/18/20 21:00 11/22/20 08:55 DC 11/22/20 08:20 Quetiapine Fumarate (SEROquel) 200 mg QHS PO 11/19/20 21:00 11/24/20 01:45 DC 11/23/20 21:15 Quetiapine Fumarate (SEROquel) 200 mg QHS PO 11/24/20 21:00 11/28/20 20:17 Tamsulosin HCl (Flomax) 0.8 mg DAILY PO 11/19/20 09:00 11/24/20 01:45 DC 11/23/20 08:01 Tamsulosin HCl (Flomax) 0.8 mg DAILY PO 11/24/20 09:00 11/29/20 08:21 Trazodone HCl (Desyrel) 100 mg QPM PO 11/18/20 21:00 11/24/20 01:45 DC 11/23/20 21:16 Trazodone HCl (Desyrel) 100 mg QPM PO 11/24/20 21:00 11/28/20 20:17 Vitamin D (Vitamin D) 400 units DAILY PO 11/19/20 09:00 11/24/20 01:45 DC 11/23/20 08:00 Vitamin D (Vitamin D) 400 units DAILY PO 11/24/20 09:00 11/29/20 08:22 Allergies Coded Allergies: Penicillins (Verified Allergy, Intermediate, rash, 01/02/19) latex (Verified Allergy, Intermediate, rash, 12/13/19) divalproex sodium (Verified Allergy, Unknown, 01/02/19) MONI LINDQUIST M.D. Nov 29, 2020 08:35
[2020-11-29 17:06] VITALS: BP 140/80
[2020-11-29] MEDS: ATORVASTATIN 20 MG TAB PO SCH (21:32)
[2020-11-29] MEDS: MONTELUKAST 10 MG TAB PO SCH (21:33)
[2020-11-29] MEDS: QUEtiapine FUMARATE 200 MG TAB PO SCH (21:33)
[2020-11-29] MEDS: CYCLOBENZAPRINE 10MG TABLET PO SCH (21:33)
[2020-11-29] MEDS: traZODone 100 MG TAB PO SCH (21:33)
[2020-11-30] MEDS: LEVOTHYROXINE 100MCG TABLET (0.1MG) PO SCH (06:24)
[2020-11-30 07:14] VITALS: BP_SYST 107; BP_SYST 157; BP_DIAS 56; BP_DIAS 86
[2020-11-30] MEDS: metFORMIN (GLUCOPHAGE) 1000 MG TABLET PO SCH ×2 (07:55→17:04)
[2020-11-30] MEDS: oxyBUTYnin 5 MG TAB PO SCH (09:28)
[2020-11-30] MEDS: FLUTICASONE PROP 0.05% NASAL SPRAY 16 GM (FLONASE) NARES SCH (09:28)
[2020-11-30] MEDS: VITAMIN D (CHOLECALCIFEROL) 400 INTERNATIONAL UNITS TAB PO SCH (09:28)
[2020-11-30] MEDS: atenoloL 25 MG TAB PO SCH ×2 (09:29→20:43)
[2020-11-30] MEDS: lamoTRIgine 100MG TAB PO SCH (09:29)
[2020-11-30] MEDS: TAMSULOSIN 0.4 MG CAP PO SCH (09:29)
[2020-11-30] MEDS: ASPIRIN 81MG ENTERIC TABLET PO SCH (09:30)
[2020-11-30] MEDS: BENZTROPINE 1 MG TAB PO SCH ×2 (09:30→20:42)
[2020-11-30] MEDS: DOCUSATE SODIUM 100MG CAPSULE PO SCH ×2 (09:30→20:42)
[2020-11-30 17:00] VITALS: BP 144/78
[2020-11-30 19:01] VITALS: BP 173/89
[2020-11-30] MEDS: QUEtiapine FUMARATE 200 MG TAB PO SCH (20:42)
[2020-11-30] MEDS: CYCLOBENZAPRINE 10MG TABLET PO SCH (20:42)
[2020-11-30] MEDS: MONTELUKAST 10 MG TAB PO SCH (20:42)
[2020-11-30] MEDS: ATORVASTATIN 20 MG TAB PO SCH (20:42)
[2020-11-30] MEDS: traZODone 100 MG TAB PO SCH (20:42)
[2020-11-30] MEDS: LORazepam 2 MG TAB PO PRN (22:04)
[2020-11-30] MEDS: diphenhydrAMINE 50MG CAP PO PRN (22:04)
[2020-12-01] MEDS: LEVOTHYROXINE 100MCG TABLET (0.1MG) PO SCH (05:52)
[2020-12-01 06:30] VITALS: BP 126/78
[2020-12-01] MEDS: metFORMIN (GLUCOPHAGE) 1000 MG TABLET PO SCH ×2 (07:26→17:21)
[2020-12-01] MEDS: ASPIRIN 81MG ENTERIC TABLET PO SCH (09:05)
[2020-12-01] MEDS: BENZTROPINE 1 MG TAB PO SCH ×2 (09:05→20:12)
[2020-12-01] MEDS: oxyBUTYnin 5 MG TAB PO SCH (09:05)
[2020-12-01] MEDS: TAMSULOSIN 0.4 MG CAP PO SCH (09:05)
[2020-12-01] MEDS: DOCUSATE SODIUM 100MG CAPSULE PO SCH ×2 (09:05→20:12)
[2020-12-01] MEDS: FLUTICASONE PROP 0.05% NASAL SPRAY 16 GM (FLONASE) NARES SCH (09:05)
[2020-12-01] MEDS: lamoTRIgine 100MG TAB PO SCH (09:05)
[2020-12-01] MEDS: VITAMIN D (CHOLECALCIFEROL) 400 INTERNATIONAL UNITS TAB PO SCH (09:05)
[2020-12-01] MEDS: atenoloL 25 MG TAB PO SCH ×2 (09:05→20:11)
[2020-12-01] MEDS: ACETAMINOPHEN TAB 650MG DOSE (2X325MG) PO PRN (17:21)
[2020-12-01 18:10] VITALS: BP 146/74
[2020-12-01] MEDS: traZODone 100 MG TAB PO SCH (20:12)
[2020-12-01] MEDS: MONTELUKAST 10 MG TAB PO SCH (20:12)
[2020-12-01] MEDS: CYCLOBENZAPRINE 10MG TABLET PO SCH (20:12)
[2020-12-01] MEDS: ATORVASTATIN 20 MG TAB PO SCH (20:12)
[2020-12-01] MEDS: QUEtiapine FUMARATE 200 MG TAB PO SCH (20:12)
[2020-12-02] MEDS: ACETAMINOPHEN TAB 650MG DOSE (2X325MG) PO PRN ×2 (02:57→22:57)
[2020-12-02] MEDS: LEVOTHYROXINE 100MCG TABLET (0.1MG) PO SCH (06:08)
[2020-12-02 06:36] VITALS: BP 143/84
[2020-12-02] MEDS: lamoTRIgine 100MG TAB PO SCH (08:30)
[2020-12-02] MEDS: ASPIRIN 81MG ENTERIC TABLET PO SCH (08:30)
[2020-12-02] MEDS: FLUTICASONE PROP 0.05% NASAL SPRAY 16 GM (FLONASE) NARES SCH (08:30)
[2020-12-02] MEDS: BENZTROPINE 1 MG TAB PO SCH ×2 (08:30→21:34)
[2020-12-02] MEDS: DOCUSATE SODIUM 100MG CAPSULE PO SCH ×2 (08:31→21:34)
[2020-12-02] MEDS: TAMSULOSIN 0.4 MG CAP PO SCH (08:31)
[2020-12-02] MEDS: VITAMIN D (CHOLECALCIFEROL) 400 INTERNATIONAL UNITS TAB PO SCH (08:31)
[2020-12-02] MEDS: metFORMIN (GLUCOPHAGE) 1000 MG TABLET PO SCH ×2 (08:31→17:31)
[2020-12-02] MEDS: atenoloL 25 MG TAB PO SCH ×2 (08:31→21:34)
[2020-12-02] MEDS: oxyBUTYnin 5 MG TAB PO SCH (08:31)
--- NOTE | 2020-12-02 14:04 | MHIPNPDOC ---
[facility] Progress Note Progress Note DATE OF SERVICE: 12/02/20 HISTORY: Patient a 50 y/o man with a past history of bipolar disorder and numerous admissions since his 's. Was d/c from [facility] Jan 2010 and living in [facility] since. Was admitted on this occasion due to disorganized and paranoid behavior. Currently remains in contact isolation due to possible exposure previous treatment nursing staff. Interval: Patient continues to be concrete and disorganized stating "I communicate with music waves" , was calm and able to wear mask, also keep distance on interview. No acting out noted since taking haldol decanoate injection, per staff does have sudden mood changes and can be rolling on the ground. Was discussed on coordination of care team meeting. VITAL SIGNS: See below. NEW TEST RESULTS: None. CURRENT MEDICATIONS: See below. MENTAL STATUS EXAMINATION: Patient is a 50-year old male, who is standing next to his bed, no acute distress, . Speech: Is disorganized, spontaneous, slurred . Language skills are poor. Thought processes including: disorganized. Thought content: continues to be preoccupied, disorganized. Abstract reasoning, and computation: unable to fully assess. Description of associations: concrete Description of abnormal or psychotic thoughts: AH Judgment: poor Insight: poor Orientation: to place only Recent and remote memory: poor Attention span and concentration: fair Language: disorganized Fund of knowledge: unable to fully assess Mood: mildly elevated Affect: calm, happy DIAGNOSES: 1. Bipolar disorder, mixer per hx 2. R/O schizoaffective disorder, bipolar type ASSESSMENT: Stable with limited improvement, continue on current regimen. Requires continued stay due to acute disorganization, inability to care for self. MANAGEMENT PLAN: Was discussed in treatment team. Continue current treatment, coordinating transition of care possibly to [facility]. Has oral prn medications for agitation. TIME SPENT: 15 minutes. Vital Signs Vital Signs Date Time Temp Pulse Resp B/P (MAP) Pulse Ox O2 Delivery O2 Flow Rate FiO2 12/02/20 08:31 77 143/84 12/02/20 06:36 98.3 16 96 Room Air Current Medications Current Medications Medications (Trade) Dose Ordered Sig/Kailey Route PRN Reason Start Time Stop Time Status Last Admin Dose Admin Acetaminophen (Tylenol Tab) 650 mg Q6HP PRN PO MILD PAIN or TEMP > 101 12/01/20 16:05 12/02/20 02:57 Acetaminophen (Tylenol Tab) 650 mg Q6HP PRN PO HEADACHE or MILD DISCOMFORT 11/18/20 12:40 11/24/20 01:45 DC 11/23/20 03:09 Al Hydrox/Mg Hydrox/Simethicone (Mylanta) 30 ml Q4HP PRN PO HEARTBURN/INDIGESTION 11/18/20 12:40 11/24/20 01:45 DC 11/23/20 22:34 Amlodipine Besylate (Norvasc) 10 mg DAILY PO 11/19/20 09:00 11/22/20 08:55 DC 11/22/20 08:20 Aspirin (Ecotrin) 81 mg DAILY PO 11/24/20 09:00 12/02/20 08:30 Aspirin (Ecotrin) 81 mg QAM PO 11/22/20 09:00 11/24/20 01:45 DC 11/23/20 07:58 Atenolol (Tenormin) 25 mg BID PO 11/22/20 09:00 11/22/20 12:53 DC 11/22/20 09:51 Atenolol (Tenormin) 25 mg BID PO 11/24/20 09:00 12/02/20 08:31 Atenolol (Tenormin) 50 mg BID PO 11/22/20 21:00 11/24/20 00:13 DC 11/23/20 21:16 Atorvastatin Calcium (Lipitor) 40 mg QHS PO 11/18/20 21:00 11/24/20 01:45 DC 11/23/20 21:16 Atorvastatin Calcium (Lipitor) 40 mg QHS PO 11/24/20 21:00 12/01/20 20:12 Benztropine Mesylate (Cogentin) 1 mg BID PO 11/18/20 09:00 11/24/20 01:45 DC 11/23/20 21:15 Benztropine Mesylate (Cogentin) 1 mg BID PO 11/24/20 09:00 12/02/20 08:30 Cyclobenzaprine HCl (Flexeril) 10 mg QHS PO 11/20/20 21:00 11/24/20 01:45 DC 11/23/20 21:16 Cyclobenzaprine HCl (Flexeril) 10 mg QHS PO 11/24/20 21:00 12/01/20 20:12 Diphenhydramine HCl (Benadryl) 50 mg Q8HP PRN PO AGITATION 11/19/20 09:10 11/24/20 01:45 DC 11/23/20 17:51 Diphenhydramine HCl (Benadryl) 50 mg Q8HP PRN PO AGITATION 11/24/20 10:55 11/30/20 22:04 Diphenhydramine HCl (Benadryl) 50 mg STAT STAT IM 11/26/20 02:41 11/26/20 02:44 DC 11/26/20 02:53 Diphenhydramine HCl (Benadryl) 50 mg STAT STAT PO 11/19/20 06:48 11/19/20 06:50 DC 11/19/20 07:06 Docusate Sodium (Colace) 100 mg BID PO 11/18/20 21:00 11/24/20 01:45 DC 11/23/20 21:15 Docusate Sodium (Colace) 100 mg BID PO 11/24/20 09:00 12/02/20 08:31 Fluticasone Propionate (Flonase 0.05% Nasal [place]) 2 spray DAILY NARES 11/19/20 09:00 11/24/20 01:45 DC 11/23/20 08:01 Fluticasone Propionate (Flonase 0.05% Nasal [place]) 2 spray DAILY NARES 11/24/20 09:00 12/02/20 08:30 Haloperidol (Haldol) 10 mg Q8HP PRN PO AGITATION 11/19/20 09:10 11/24/20 01:45 DC 11/23/20 23:21 Haloperidol (Haldol) 10 mg Q8HP PRN PO AGITATION 11/24/20 10:55 12/01/20 01:56 Haloperidol (Haldol) 10 mg QHS PO 11/19/20 21:00 11/19/20 09:48 DC Haloperidol (Haldol) 10 mg QHS PO 11/19/20 21:00 11/24/20 01:45 DC 11/23/20 21:16 Haloperidol (Haldol) 10 mg QHS PO 11/24/20 21:00 12/01/20 20:12 Haloperidol (Haldol) 10 mg STAT STAT IM 11/26/20 02:41 11/26/20 02:44 DC 11/26/20 02:52 Haloperidol (Haldol) 10 mg STAT STAT PO 11/19/20 06:48 11/19/20 06:50 DC 11/19/20 07:06 Haloperidol Decanoate (Haldol Decanoate) 100 mg Q28D IM 11/28/20 12:00 11/28/20 13:26 Home Med (Med Rec Complete!) ASDIRECTED XX 11/17/20 23:25 11/17/20 23:24 DC Lamotrigine (LaMICtal) 200 mg DAILY PO 11/18/20 09:00 11/24/20 01:45 DC 11/23/20 08:00 Lamotrigine (LaMICtal) 200 mg DAILY PO 11/24/20 09:00 12/02/20 08:30 Levothyroxine Sodium (Synthroid) 100 mcg DAILY@06 PO 11/24/20 06:00 12/02/20 06:08 Levothyroxine Sodium (Synthroid) 100 mcg DAILY@0600 PO 11/19/20 06:00 11/24/20 01:45 DC 11/23/20 05:05 Lorazepam (Ativan) 2 mg Q8HP PRN PO ANXIETY/AGITATION 12/02/20 12:05 Lorazepam (Ativan) 2 mg Q8HP PRN PO AGITATION 11/19/20 09:10 11/24/20 01:45 DC 11/23/20 23:21 Lorazepam (Ativan) 2 mg Q8HP PRN PO AGITATION 11/24/20 10:55 12/01/20 10:54 DC 11/30/20 22:04 Lorazepam (Ativan) 2 mg STAT STAT IM 11/26/20 02:41 11/26/20 02:44 DC 11/26/20 02:53 Lorazepam (Ativan) 2 mg STAT STAT PO 11/19/20 06:48 11/19/20 06:50 DC 11/19/20 07:06 Losartan Potassium (Cozaar) 50 mg DAILY PO 11/19/20 09:00 11/22/20 08:55 DC 11/22/20 08:20 Magnesium Hydroxide (Milk Of Magnesia) 30 ml DAILYPRN PRN PO CONSTIPATION 11/18/20 12:40 11/24/20 01:45 DC Magnesium Hydroxide (Milk Of Magnesia) 30 ml DAILYPRN PRN PO CONSTIPATION 11/24/20 10:55 Metformin HCl (Glucophage) 1,000 mg BID@08,18 PO 11/24/20 08:00 12/02/20 08:31 Metformin HCl (Glucophage) 1,000 mg BID@0800,1800 PO 11/18/20 18:00 11/24/20 01:45 DC 11/23/20 17:34 Miscellaneous (Unresolved Clarification Entry) SEE LABEL COMMENTS DAILY XX 11/30/20 09:00 12/02/20 09:53 DC Miscellaneous (Unresolved Clarification Entry) SEE LABEL COMMENTS DAILY XX 12/02/20 09:00 12/02/20 12:12 DC Montelukast Sodium (Singulair) 10 mg QHS PO 11/18/20 21:00 11/24/20 01:45 DC 11/23/20 21:15 Montelukast Sodium (Singulair) 10 mg QHS PO 11/24/20 21:00 12/01/20 20:12 Oxybutynin Chloride (Ditropan) 5 mg DAILY PO 11/19/20 09:00 11/24/20 01:45 DC 11/23/20 08:00 Oxybutynin Chloride (Ditropan) 5 mg DAILY PO 11/24/20 09:00 12/02/20 08:31 Propranolol HCl (Inderal) 10 mg BID PO 11/18/20 21:00 11/22/20 08:55 DC 11/22/20 08:20 Quetiapine Fumarate (SEROquel) 200 mg QHS PO 11/19/20 21:00 11/24/20 01:45 DC 11/23/20 21:15 Quetiapine Fumarate (SEROquel) 200 mg QHS PO 11/24/20 21:00 12/01/20 20:12 Tamsulosin HCl (Flomax) 0.8 mg DAILY PO 11/19/20 09:00 11/24/20 01:45 DC 11/23/20 08:01 Tamsulosin HCl (Flomax) 0.8 mg DAILY PO 11/24/20 09:00 12/02/20 08:31 Trazodone HCl (Desyrel) 100 mg QPM PO 11/18/20 21:00 11/24/20 01:45 DC 11/23/20 21:16 Trazodone HCl (Desyrel) 100 mg QPM PO 11/24/20 21:00 12/01/20 20:12 Vitamin D (Vitamin D) 400 units DAILY PO 11/19/20 09:00 11/24/20 01:45 DC 11/23/20 08:00 Vitamin D (Vitamin D) 400 units DAILY PO 11/24/20 09:00 12/02/20 08:31 Allergies Coded Allergies: Penicillins (Verified Allergy, Intermediate, rash, 01/02/19) latex (Verified Allergy, Intermediate, rash, 12/13/19) divalproex sodium (Verified Allergy, Unknown, 01/02/19) AYESHA MOLINA MD Dec 02, 2020 14:00
[2020-12-02 16:00] VITALS: BP 146/84
[2020-12-02 16:12] LABS: RSV AMPLIFICATION NEGATIVE (NEGATIVE)
[2020-12-02] MEDS: traZODone 100 MG TAB PO SCH (21:33)
[2020-12-02] MEDS: MONTELUKAST 10 MG TAB PO SCH (21:33)
[2020-12-02] MEDS: ATORVASTATIN 20 MG TAB PO SCH (21:34)
[2020-12-02] MEDS: CYCLOBENZAPRINE 10MG TABLET PO SCH (21:34)
[2020-12-02] MEDS: QUEtiapine FUMARATE 200 MG TAB PO SCH (21:34)
[2020-12-03] MEDS: diphenhydrAMINE 50MG CAP PO PRN (04:44)
[2020-12-03] MEDS: LEVOTHYROXINE 100MCG TABLET (0.1MG) PO SCH (05:02)
[2020-12-03 06:39] VITALS: BP 167/95
[2020-12-03] MEDS: metFORMIN (GLUCOPHAGE) 1000 MG TABLET PO SCH ×2 (07:43→17:21)
[2020-12-03] MEDS: VITAMIN D (CHOLECALCIFEROL) 400 INTERNATIONAL UNITS TAB PO SCH (09:53)
[2020-12-03] MEDS: DOCUSATE SODIUM 100MG CAPSULE PO SCH ×2 (09:53→20:20)
[2020-12-03] MEDS: oxyBUTYnin 5 MG TAB PO SCH (09:53)
[2020-12-03] MEDS: BENZTROPINE 1 MG TAB PO SCH ×2 (09:53→20:20)
[2020-12-03] MEDS: atenoloL 25 MG TAB PO SCH ×2 (09:53→20:32)
[2020-12-03] MEDS: ASPIRIN 81MG ENTERIC TABLET PO SCH (09:53)
[2020-12-03] MEDS: lamoTRIgine 100MG TAB PO SCH (09:53)
[2020-12-03] MEDS: FLUTICASONE PROP 0.05% NASAL SPRAY 16 GM (FLONASE) NARES SCH (09:53)
[2020-12-03] MEDS: TAMSULOSIN 0.4 MG CAP PO SCH (09:53)
[2020-12-03 16:16] VITALS: BP 165/90
--- NOTE | 2020-12-03 17:13 | MHIPNPDOC ---
[facility] Progress Note Progress Note DATE OF SERVICE: 12/03/20 HISTORY: Patient a 50 y/o man with a past history of bipolar disorder and numerous admissions since his 's. [place] [facility] [place] and living in [facility]. Was admitted on this occasion due to disorganized and paranoid behavior. Currently remains in contact isolation due to possible exposure previous treatment nursing staff. Interval: Patient was seen follow contact isolation guidelines. Continues to be disorganized and grandiose. On interview states "I feel amazing, I'm grandiose" while laughing to himself. Overall appeared jovial and manic. VITAL SIGNS: See below. NEW TEST RESULTS: None. CURRENT MEDICATIONS: See below. MENTAL STATUS EXAMINATION: Patient is a 50-year old male, who is in his room walking around, no acute distress, elevated BMI, somewhat disheveled. Speech: Is increased in amount, normal rate, spontaneous Language skills are poor. Thought processes including: disorganized. Thought content: Denies Suicidal thoughts, intent or plan. Abstract reasoning, and computation: unable to fully assess. Description of associations: concrete Description of abnormal or psychotic thoughts: AH, grandiose delusions Judgment: poor Insight: poor Orientation: to place only Recent and remote memory: poor Attention span and concentration: distractible Language: disorganized Fund of knowledge: unable to fully assess Mood: elevated Affect: happy, labile, jovial, non-aggressive DIAGNOSES: 1. Bipolar disorder, mixer per hx 2. R/O schizoaffective disorder, bipolar type ASSESSMENT: Elevated mood with limited improvement despite medication regimen. Requires continued stay due to acute disorganization, inability to care for self pending transition to [facility]. MANAGEMENT PLAN: Was discussed in treatment team. Continue current treatment regimen. No medication changes at this time. Coordinating transition to [facility]. Has oral prn medications for agitation. TIME SPENT: 15 minutes. Vital Signs Vital Signs Date Time Temp Pulse Resp B/P (MAP) Pulse Ox O2 Delivery O2 Flow Rate FiO2 12/03/20 16:16 97.2 81 18 165/90 (115) 97 Room Air Current Medications Current Medications Medications (Trade) Dose Ordered Sig/Kailey Route PRN Reason Start Time Stop Time Status Last Admin Dose Admin Acetaminophen (Tylenol Tab) 650 mg Q6HP PRN PO MILD PAIN or TEMP > 101 12/01/20 16:05 12/02/20 22:57 Acetaminophen (Tylenol Tab) 650 mg Q6HP PRN PO HEADACHE or MILD DISCOMFORT 11/18/20 12:40 11/24/20 01:45 DC 11/23/20 03:09 Al Hydrox/Mg Hydrox/Simethicone (Mylanta) 30 ml Q4HP PRN PO HEARTBURN/INDIGESTION 11/18/20 12:40 11/24/20 01:45 DC 11/23/20 22:34 Amlodipine Besylate (Norvasc) 10 mg DAILY PO 11/19/20 09:00 11/22/20 08:55 DC 11/22/20 08:20 Aspirin (Ecotrin) 81 mg DAILY PO 11/24/20 09:00 12/03/20 09:53 Aspirin (Ecotrin) 81 mg QAM PO 11/22/20 09:00 11/24/20 01:45 DC 11/23/20 07:58 Atenolol (Tenormin) 25 mg BID PO 11/22/20 09:00 11/22/20 12:53 DC 11/22/20 09:51 Atenolol (Tenormin) 25 mg BID PO 11/24/20 09:00 12/03/20 09:53 Atenolol (Tenormin) 50 mg BID PO 11/22/20 21:00 11/24/20 00:13 DC 11/23/20 21:16 Atorvastatin Calcium (Lipitor) 40 mg QHS PO 11/18/20 21:00 11/24/20 01:45 DC 11/23/20 21:16 Atorvastatin Calcium (Lipitor) 40 mg QHS PO 11/24/20 21:00 12/02/20 21:34 Benztropine Mesylate (Cogentin) 1 mg BID PO 11/18/20 09:00 11/24/20 01:45 DC 11/23/20 21:15 Benztropine Mesylate (Cogentin) 1 mg BID PO 11/24/20 09:00 12/03/20 09:53 Cyclobenzaprine HCl (Flexeril) 10 mg QHS PO 11/20/20 21:00 11/24/20 01:45 DC 11/23/20 21:16 Cyclobenzaprine HCl (Flexeril) 10 mg QHS PO 11/24/20 21:00 12/02/20 21:34 Diphenhydramine HCl (Benadryl) 50 mg Q8HP PRN PO AGITATION 11/19/20 09:10 11/24/20 01:45 DC 11/23/20 17:51 Diphenhydramine HCl (Benadryl) 50 mg Q8HP PRN PO AGITATION 11/24/20 10:55 12/03/20 04:44 Diphenhydramine HCl (Benadryl) 50 mg STAT STAT IM 11/26/20 02:41 11/26/20 02:44 DC 11/26/20 02:53 Diphenhydramine HCl (Benadryl) 50 mg STAT STAT PO 11/19/20 06:48 11/19/20 06:50 DC 11/19/20 07:06 Docusate Sodium (Colace) 100 mg BID PO 11/18/20 21:00 11/24/20 01:45 DC 11/23/20 21:15 Docusate Sodium (Colace) 100 mg BID PO 11/24/20 09:00 12/03/20 09:53 Fluticasone Propionate (Flonase 0.05% Nasal [place]) 2 spray DAILY NARES 11/19/20 09:00 11/24/20 01:45 DC 11/23/20 08:01 Fluticasone Propionate (Flonase 0.05% Nasal [place]) 2 spray DAILY NARES 11/24/20 09:00 12/03/20 09:53 Haloperidol (Haldol) 10 mg Q8HP PRN PO AGITATION 11/19/20 09:10 11/24/20 01:45 DC 11/23/20 23:21 Haloperidol (Haldol) 10 mg Q8HP PRN PO AGITATION 11/24/20 10:55 12/01/20 01:56 Haloperidol (Haldol) 10 mg QHS PO 11/19/20 21:00 11/19/20 09:48 DC Haloperidol (Haldol) 10 mg QHS PO 11/19/20 21:00 11/24/20 01:45 DC 11/23/20 21:16 Haloperidol (Haldol) 10 mg QHS PO 11/24/20 21:00 12/02/20 21:34 Haloperidol (Haldol) 10 mg STAT STAT IM 11/26/20 02:41 11/26/20 02:44 DC 11/26/20 02:52 Haloperidol (Haldol) 10 mg STAT STAT PO 11/19/20 06:48 11/19/20 06:50 DC 11/19/20 07:06 Haloperidol Decanoate (Haldol Decanoate) 100 mg Q28D IM 11/28/20 12:00 11/28/20 13:26 Home Med (Med Rec Complete!) ASDIRECTED XX 11/17/20 23:25 11/17/20 23:24 DC Lamotrigine (LaMICtal) 200 mg DAILY PO 11/18/20 09:00 11/24/20 01:45 DC 11/23/20 08:00 Lamotrigine (LaMICtal) 200 mg DAILY PO 11/24/20 09:00 12/03/20 09:53 Levothyroxine Sodium (Synthroid) 100 mcg DAILY@06 PO 11/24/20 06:00 12/03/20 05:02 Levothyroxine Sodium (Synthroid) 100 mcg DAILY@0600 PO 11/19/20 06:00 11/24/20 01:45 DC 11/23/20 05:05 Lorazepam (Ativan) 2 mg Q8HP PRN PO ANXIETY/AGITATION 12/02/20 12:05 Lorazepam (Ativan) 2 mg Q8HP PRN PO AGITATION 11/19/20 09:10 11/24/20 01:45 DC 11/23/20 23:21 Lorazepam (Ativan) 2 mg Q8HP PRN PO AGITATION 11/24/20 10:55 12/01/20 10:54 DC 11/30/20 22:04 Lorazepam (Ativan) 2 mg STAT STAT IM 11/26/20 02:41 11/26/20 02:44 DC 11/26/20 02:53 Lorazepam (Ativan) 2 mg STAT STAT PO 11/19/20 06:48 11/19/20 06:50 DC 11/19/20 07:06 Losartan Potassium (Cozaar) 50 mg DAILY PO 11/19/20 09:00 11/22/20 08:55 DC 11/22/20 08:20 Magnesium Hydroxide (Milk Of Magnesia) 30 ml DAILYPRN PRN PO CONSTIPATION 11/18/20 12:40 11/24/20 01:45 DC Magnesium Hydroxide (Milk Of Magnesia) 30 ml DAILYPRN PRN PO CONSTIPATION 11/24/20 10:55 Metformin HCl (Glucophage) 1,000 mg BID@08,18 PO 11/24/20 08:00 12/03/20 07:43 Metformin HCl (Glucophage) 1,000 mg BID@0800,1800 PO 11/18/20 18:00 11/24/20 01:45 DC 11/23/20 17:34 Miscellaneous (Unresolved Clarification Entry) SEE LABEL COMMENTS DAILY XX 11/30/20 09:00 12/02/20 09:53 DC Miscellaneous (Unresolved Clarification Entry) SEE LABEL COMMENTS DAILY XX 12/02/20 09:00 12/02/20 12:12 DC Montelukast Sodium (Singulair) 10 mg QHS PO 11/18/20 21:00 11/24/20 01:45 DC 11/23/20 21:15 Montelukast Sodium (Singulair) 10 mg QHS PO 11/24/20 21:00 12/02/20 21:33 Oxybutynin Chloride (Ditropan) 5 mg DAILY PO 11/19/20 09:00 11/24/20 01:45 DC 11/23/20 08:00 Oxybutynin Chloride (Ditropan) 5 mg DAILY PO 11/24/20 09:00 12/03/20 09:53 Propranolol HCl (Inderal) 10 mg BID PO 11/18/20 21:00 11/22/20 08:55 DC 11/22/20 08:20 Quetiapine Fumarate (SEROquel) 200 mg QHS PO 11/19/20 21:00 11/24/20 01:45 DC 11/23/20 21:15 Quetiapine Fumarate (SEROquel) 200 mg QHS PO 11/24/20 21:00 12/02/20 21:34 Tamsulosin HCl (Flomax) 0.8 mg DAILY PO 11/19/20 09:00 11/24/20 01:45 DC 11/23/20 08:01 Tamsulosin HCl (Flomax) 0.8 mg DAILY PO 11/24/20 09:00 12/03/20 09:53 Trazodone HCl (Desyrel) 100 mg QPM PO 11/18/20 21:00 11/24/20 01:45 DC 11/23/20 21:16 Trazodone HCl (Desyrel) 100 mg QPM PO 11/24/20 21:00 12/02/20 21:33 Vitamin D (Vitamin D) 400 units DAILY PO 11/19/20 09:00 11/24/20 01:45 DC 11/23/20 08:00 Vitamin D (Vitamin D) 400 units DAILY PO 11/24/20 09:00 12/03/20 09:53 Allergies Coded Allergies: Penicillins (Verified Allergy, Intermediate, rash, 01/02/19) latex (Verified Allergy, Intermediate, rash, 12/13/19) divalproex sodium (Verified Allergy, Unknown, 01/02/19) AYESHA MOLINA MD Dec 03, 2020 17:13
[2020-12-03] MEDS: QUEtiapine FUMARATE 200 MG TAB PO SCH (20:20)
[2020-12-03] MEDS: MONTELUKAST 10 MG TAB PO SCH (20:20)
[2020-12-03] MEDS: CYCLOBENZAPRINE 10MG TABLET PO SCH (20:20)
[2020-12-03] MEDS: traZODone 100 MG TAB PO SCH (20:20)
[2020-12-03] MEDS: ATORVASTATIN 20 MG TAB PO SCH (20:21)
[2020-12-04] MEDS: ACETAMINOPHEN TAB 650MG DOSE (2X325MG) PO PRN ×2 (03:18→19:49)
[2020-12-04] MEDS: LEVOTHYROXINE 100MCG TABLET (0.1MG) PO SCH (05:24)
[2020-12-04 06:47] VITALS: BP 143/92
[2020-12-04] MEDS: metFORMIN (GLUCOPHAGE) 1000 MG TABLET PO SCH ×2 (07:54→17:14)
--- NOTE | 2020-12-04 09:05 | MHIPNPDOC ---
[facility] Progress Note Progress Note DATE OF SERVICE: 12/04/20 HISTORY: Patient a 50 y/o man with a past history of bipolar disorder and numerous admissions since his 's. Was d/c from [facility] Jan 2010 and living in [facility] since. Was admitted on this occasion due to disorganized and paranoid behavior. Currently remains in contact isolation due to possible exposure previous treatment nursing staff. Interval: Patient was seen in his room following contact precautions. Remains somewhat disorganized despite taking multiple antipsychotics, recent injection. No acute aggression, calm and cooperative to interview. Agrees to increase Seroquel to 300 mg for treatment of disorganized behavior and psychotic psychot ic symptoms, also ordered lipid panel for routine monitoring. Overall remains acutely hypomanic and psychotic with limited improvement VITAL SIGNS: See below. NEW TEST RESULTS: None. CURRENT MEDICATIONS: See below. MENTAL STATUS EXAMINATION: Patient is a 50-year old male, who is in his room standing, mask and glasses, no acute distress, elevated BMI, somewhat disheveled. Speech: spontaneous, normal rate Language skills are poor. Thought processes including: Remains disorganized. Thought content: Denies Suicidal thoughts, intent or plan. Abstract reasoning, and computation: unable to fully assess. Description of associations: concrete Description of abnormal or psychotic thoughts: AH, grandiose delusions Judgment: poor Insight: poor Orientation: to place only Recent and remote memory: poor Attention span and concentration: Poor, distractible Language: disorganized Fund of knowledge: unable to fully assess Mood: "great" Affect: Elevated, stable, non-aggressive DIAGNOSES: 1. Bipolar disorder, mixed episode per hx 2. R/O schizoaffective disorder, bipolar type ASSESSMENT: Patient displays both psychotic disorganized behavior and hypomanic behavior, patient agreeable to medication changes, due to inability to care for self pending transition to [facility]. MANAGEMENT PLAN: Was discussed in treatment team. Patient requires an increase in Seroquel from 200 to 300 mg nightly to help further stabilize psychotic and hypomanic symptoms, ordered a lipid panel for routine monitoring. Continue current treatment regimen. No medication changes at this time. Coordinating transition to [facility]. Has oral prn medications for agitation. TIME SPENT: 15 minutes. Vital Signs Vital Signs Date Time Temp Pulse Resp B/P (MAP) Pulse Ox O2 Delivery O2 Flow Rate FiO2 12/04/20 06:47 97.6 83 20 143/92 (109) 95 Room Air Current Medications Current Medications Medications (Trade) Dose Ordered Sig/Kailey Route PRN Reason Start Time Stop Time Status Last Admin Dose Admin Acetaminophen (Tylenol Tab) 650 mg Q6HP PRN PO MILD PAIN or TEMP > 101 12/01/20 16:05 12/04/20 03:18 Acetaminophen (Tylenol Tab) 650 mg Q6HP PRN PO HEADACHE or MILD DISCOMFORT 11/18/20 12:40 11/24/20 01:45 DC 11/23/20 03:09 Al Hydrox/Mg Hydrox/Simethicone (Mylanta) 30 ml Q4HP PRN PO HEARTBURN/INDIGESTION 11/18/20 12:40 11/24/20 01:45 DC 11/23/20 22:34 Amlodipine Besylate (Norvasc) 10 mg DAILY PO 11/19/20 09:00 11/22/20 08:55 DC 11/22/20 08:20 Aspirin (Ecotrin) 81 mg DAILY PO 11/24/20 09:00 12/03/20 09:53 Aspirin (Ecotrin) 81 mg QAM PO 11/22/20 09:00 11/24/20 01:45 DC 11/23/20 07:58 Atenolol (Tenormin) 25 mg BID PO 11/22/20 09:00 11/22/20 12:53 DC 11/22/20 09:51 Atenolol (Tenormin) 25 mg BID PO 11/24/20 09:00 12/03/20 20:32 Atenolol (Tenormin) 50 mg BID PO 11/22/20 21:00 11/24/20 00:13 DC 11/23/20 21:16 Atorvastatin Calcium (Lipitor) 40 mg QHS PO 11/18/20 21:00 11/24/20 01:45 DC 11/23/20 21:16 Atorvastatin Calcium (Lipitor) 40 mg QHS PO 11/24/20 21:00 12/03/20 20:21 Benztropine Mesylate (Cogentin) 1 mg BID PO 11/18/20 09:00 11/24/20 01:45 DC 11/23/20 21:15 Benztropine Mesylate (Cogentin) 1 mg BID PO 11/24/20 09:00 12/03/20 20:20 Cyclobenzaprine HCl (Flexeril) 10 mg QHS PO 11/20/20 21:00 11/24/20 01:45 DC 11/23/20 21:16 Cyclobenzaprine HCl (Flexeril) 10 mg QHS PO 11/24/20 21:00 12/03/20 20:20 Diphenhydramine HCl (Benadryl) 50 mg Q8HP PRN PO AGITATION 11/19/20 09:10 11/24/20 01:45 DC 11/23/20 17:51 Diphenhydramine HCl (Benadryl) 50 mg Q8HP PRN PO AGITATION 11/24/20 10:55 12/03/20 04:44 Diphenhydramine HCl (Benadryl) 50 mg STAT STAT IM 11/26/20 02:41 11/26/20 02:44 DC 11/26/20 02:53 Diphenhydramine HCl (Benadryl) 50 mg STAT STAT PO 11/19/20 06:48 11/19/20 06:50 DC 11/19/20 07:06 Docusate Sodium (Colace) 100 mg BID PO 11/18/20 21:00 11/24/20 01:45 DC 11/23/20 21:15 Docusate Sodium (Colace) 100 mg BID PO 11/24/20 09:00 12/03/20 20:20 Fluticasone Propionate (Flonase 0.05% Nasal [place]) 2 spray DAILY NARES 11/19/20 09:00 11/24/20 01:45 DC 11/23/20 08:01 Fluticasone Propionate (Flonase 0.05% Nasal [place]) 2 spray DAILY NARES 11/24/20 09:00 12/03/20 09:53 Haloperidol (Haldol) 10 mg Q8HP PRN PO AGITATION 11/19/20 09:10 11/24/20 01:45 DC 11/23/20 23:21 Haloperidol (Haldol) 10 mg Q8HP PRN PO AGITATION 11/24/20 10:55 12/01/20 01:56 Haloperidol (Haldol) 10 mg QHS PO 11/19/20 21:00 11/19/20 09:48 DC Haloperidol (Haldol) 10 mg QHS PO 11/19/20 21:00 11/24/20 01:45 DC 11/23/20 21:16 Haloperidol (Haldol) 10 mg QHS PO 11/24/20 21:00 12/03/20 20:21 Haloperidol (Haldol) 10 mg STAT STAT IM 11/26/20 02:41 11/26/20 02:44 DC 11/26/20 02:52 Haloperidol (Haldol) 10 mg STAT STAT PO 11/19/20 06:48 11/19/20 06:50 DC 11/19/20 07:06 Haloperidol Decanoate (Haldol Decanoate) 100 mg Q28D IM 11/28/20 12:00 11/28/20 13:26 Home Med (Med Rec Complete!) ASDIRECTED XX 11/17/20 23:25 11/17/20 23:24 DC Lamotrigine (LaMICtal) 200 mg DAILY PO 11/18/20 09:00 11/24/20 01:45 DC 11/23/20 08:00 Lamotrigine (LaMICtal) 200 mg DAILY PO 11/24/20 09:00 12/03/20 09:53 Levothyroxine Sodium (Synthroid) 100 mcg DAILY@06 PO 11/24/20 06:00 12/04/20 05:24 Levothyroxine Sodium (Synthroid) 100 mcg DAILY@0600 PO 11/19/20 06:00 11/24/20 01:45 DC 11/23/20 05:05 Lorazepam (Ativan) 2 mg Q8HP PRN PO ANXIETY/AGITATION 12/02/20 12:05 Lorazepam (Ativan) 2 mg Q8HP PRN PO AGITATION 11/19/20 09:10 11/24/20 01:45 DC 11/23/20 23:21 Lorazepam (Ativan) 2 mg Q8HP PRN PO AGITATION 11/24/20 10:55 12/01/20 10:54 DC 11/30/20 22:04 Lorazepam (Ativan) 2 mg STAT STAT IM 11/26/20 02:41 11/26/20 02:44 DC 11/26/20 02:53 Lorazepam (Ativan) 2 mg STAT STAT PO 11/19/20 06:48 11/19/20 06:50 DC 11/19/20 07:06 Losartan Potassium (Cozaar) 50 mg DAILY PO 11/19/20 09:00 11/22/20 08:55 DC 11/22/20 08:20 Magnesium Hydroxide (Milk Of Magnesia) 30 ml DAILYPRN PRN PO CONSTIPATION 11/18/20 12:40 11/24/20 01:45 DC Magnesium Hydroxide (Milk Of Magnesia) 30 ml DAILYPRN PRN PO CONSTIPATION 11/24/20 10:55 Metformin HCl (Glucophage) 1,000 mg BID@08,18 PO 11/24/20 08:00 12/04/20 07:54 Metformin HCl (Glucophage) 1,000 mg BID@0800,1800 PO 11/18/20 18:00 11/24/20 01:45 DC 11/23/20 17:34 Miscellaneous (Unresolved Clarification Entry) SEE LABEL COMMENTS DAILY XX 11/30/20 09:00 12/02/20 09:53 DC Miscellaneous (Unresolved Clarification Entry) SEE LABEL COMMENTS DAILY XX 12/02/20 09:00 12/02/20 12:12 DC Montelukast Sodium (Singulair) 10 mg QHS PO 11/18/20 21:00 11/24/20 01:45 DC 11/23/20 21:15 Montelukast Sodium (Singulair) 10 mg QHS PO 11/24/20 21:00 12/03/20 20:20 Oxybutynin Chloride (Ditropan) 5 mg DAILY PO 11/19/20 09:00 11/24/20 01:45 DC 11/23/20 08:00 Oxybutynin Chloride (Ditropan) 5 mg DAILY PO 11/24/20 09:00 12/03/20 09:53 Propranolol HCl (Inderal) 10 mg BID PO 11/18/20 21:00 11/22/20 08:55 DC 11/22/20 08:20 Quetiapine Fumarate (SEROquel) 200 mg QHS PO 11/19/20 21:00 11/24/20 01:45 DC 11/23/20 21:15 Quetiapine Fumarate (SEROquel) 200 mg QHS PO 11/24/20 21:00 12/03/20 20:20 Tamsulosin HCl (Flomax) 0.8 mg DAILY PO 11/19/20 09:00 11/24/20 01:45 DC 11/23/20 08:01 Tamsulosin HCl (Flomax) 0.8 mg DAILY PO 11/24/20 09:00 12/03/20 09:53 Trazodone HCl (Desyrel) 100 mg QPM PO 11/18/20 21:00 11/24/20 01:45 OR 11/23/20 21:16 Trazodone HCl (Desyrel) 100 mg QPM PO 11/24/20 21:00 12/03/20 20:20 Vitamin D (Vitamin D) 400 units DAILY PO 11/19/20 09:00 11/24/20 01:45 OR 11/23/20 08:00 Vitamin D (Vitamin D) 400 units DAILY PO 11/24/20 09:00 12/03/20 09:53 Allergies Coded Allergies: Penicillins (Verified Allergy, Intermediate, rash, 01/02/19) latex (Verified Allergy, Intermediate, rash, 12/13/19) divalproex sodium (Verified Allergy, Unknown, 01/02/19) AYESHA MOLINA MD Dec 04, 2020 08:49
[2020-12-04] MEDS: FLUTICASONE PROP 0.05% NASAL SPRAY 16 GM (FLONASE) NARES SCH (10:02)
[2020-12-04] MEDS: TAMSULOSIN 0.4 MG CAP PO SCH (10:03)
[2020-12-04] MEDS: ASPIRIN 81MG ENTERIC TABLET PO SCH (10:03)
[2020-12-04] MEDS: VITAMIN D (CHOLECALCIFEROL) 400 INTERNATIONAL UNITS TAB PO SCH (10:03)
[2020-12-04] MEDS: lamoTRIgine 100MG TAB PO SCH (10:03)
[2020-12-04] MEDS: DOCUSATE SODIUM 100MG CAPSULE PO SCH ×2 (10:03→20:44)
[2020-12-04] MEDS: atenoloL 25 MG TAB PO SCH ×2 (10:04→20:45)
[2020-12-04] MEDS: oxyBUTYnin 5 MG TAB PO SCH (10:04)
[2020-12-04] MEDS: BENZTROPINE 1 MG TAB PO SCH ×2 (10:04→20:44)
[2020-12-04 11:06] LABS: CHOLESTEROL RISK RATIO 3.205 (<5)
[2020-12-04 16:12] VITALS: BP 155/81
[2020-12-04] MEDS: traZODone 100 MG TAB PO SCH (20:44)
[2020-12-04] MEDS: CYCLOBENZAPRINE 10MG TABLET PO SCH (20:44)
[2020-12-04] MEDS: MONTELUKAST 10 MG TAB PO SCH (20:44)
[2020-12-04] MEDS: ATORVASTATIN 20 MG TAB PO SCH (20:44)
[2020-12-04] MEDS: QUEtiapine FUMARATE 100 MG TAB PO SCH (20:45)
[2020-12-05] MEDS: LEVOTHYROXINE 100MCG TABLET (0.1MG) PO SCH (05:34)
[2020-12-05 06:41] VITALS: BP 169/99
[2020-12-05] MEDS: metFORMIN (GLUCOPHAGE) 1000 MG TABLET PO SCH ×2 (08:10→17:11)
[2020-12-05] MEDS: DOCUSATE SODIUM 100MG CAPSULE PO SCH ×2 (08:33→20:41)
[2020-12-05] MEDS: BENZTROPINE 1 MG TAB PO SCH ×2 (08:33→20:41)
[2020-12-05] MEDS: VITAMIN D (CHOLECALCIFEROL) 400 INTERNATIONAL UNITS TAB PO SCH (08:33)
[2020-12-05] MEDS: lamoTRIgine 100MG TAB PO SCH (08:33)
[2020-12-05] MEDS: atenoloL 25 MG TAB PO SCH ×2 (08:33→20:43)
[2020-12-05] MEDS: oxyBUTYnin 5 MG TAB PO SCH (08:33)
[2020-12-05] MEDS: ASPIRIN 81MG ENTERIC TABLET PO SCH (08:33)
[2020-12-05] MEDS: TAMSULOSIN 0.4 MG CAP PO SCH (08:33)
[2020-12-05] MEDS: FLUTICASONE PROP 0.05% NASAL SPRAY 16 GM (FLONASE) NARES SCH (08:34)
[2020-12-05] MEDS: diphenhydrAMINE 50MG CAP PO PRN (15:50)
[2020-12-05] MEDS: LORazepam 2 MG TAB PO PRN (15:50)
--- NOTE | 2020-12-05 17:20 | MHIPNPDOC ---
[facility] Progress Note Progress Note DATE OF SERVICE: 12/05/20 HISTORY: Patient a 50 y/o man with a past history of bipolar disorder and numerous admissions since his 's. Was d/c from [facility] Jan 2010 and living in [facility] since. Was admitted on this occasion due to disorganized and paranoid behavior. Currently remains in contact isolation due to possible exposure previous treatment nursing staff. Interval: Patient continues to be grossly disorganized pacing in room, walks up close requires multiple reminders to wear mask. He looks older than previous days, more reserved. No aggression noted, he did finally shower accidentally requiring clean up. VITAL SIGNS: See below. NEW TEST RESULTS: None. CURRENT MEDICATIONS: See below. MENTAL STATUS EXAMINATION: Patient is a 50-year old male, who is in his room, mask and glasses, no acute distress, elevated, BMI, disheveled Speech: spontaneous, normal rate Language skills are poor. Thought processes including: Remains disorganized. Thought content: Denies Suicidal thoughts, intent or plan. Abstract reasoning, and computation: unable to fully assess. Description of associations: concrete Description of abnormal or psychotic thoughts: AH, grandiose delusions Judgment: poor Insight: poor Orientation: to place only Recent and remote memory: poor Attention span and concentration: Poor, distractible Language: disorganized Fund of knowledge: unable to fully assess Mood: "okay" Affect: Euthymic, stable, flat, non-aggressive DIAGNOSES: 1. Bipolar disorder, mixed episode per hx 2. R/O schizoaffective disorder, bipolar type ASSESSMENT: Patient continues to be grossly disorganized, stating poverty of speech, does not appear hypomanic compared to previous days since increasing Seroquel. Patient requires continued stay pending placement due to poor response to medications and need for longer term care. MANAGEMENT PLAN: Was discussed in treatment team. Continue regimen to further stabilize psychotic and hypomanic symptoms, lipid panel within normal limits, apart from low HDL. Ordered omega 3s, otherwise no medication changes. Pending possible placement to [facility]. TIME SPENT: 15 minutes. Vital Signs Vital Signs Date Time Temp Pulse Resp B/P (MAP) Pulse Ox O2 Delivery O2 Flow Rate FiO2 12/05/20 08:33 77 169/99 12/05/20 07:55 Room Air 12/05/20 06:41 97.8 20 95 Current Medications Current Medications Medications (Trade) Dose Ordered Sig/Kailey Route PRN Reason Start Time Stop Time Status Last Admin Dose Admin Acetaminophen (Tylenol Tab) 650 mg Q6HP PRN PO MILD PAIN or TEMP > 101 12/01/20 16:05 12/04/20 19:49 Acetaminophen (Tylenol Tab) 650 mg Q6HP PRN PO HEADACHE or MILD DISCOMFORT 11/18/20 12:40 11/24/20 01:45 DC 11/23/20 03:09 Al Hydrox/Mg Hydrox/Simethicone (Mylanta) 30 ml Q4HP PRN PO HEARTBURN/INDIGESTION 11/18/20 12:40 11/24/20 01:45 DC 11/23/20 22:34 Amlodipine Besylate (Norvasc) 10 mg DAILY PO 11/19/20 09:00 11/22/20 08:55 DC 11/22/20 08:20 Aspirin (Ecotrin) 81 mg DAILY PO 11/24/20 09:00 12/05/20 08:33 Aspirin (Ecotrin) 81 mg QAM PO 11/22/20 09:00 11/24/20 01:45 DC 11/23/20 07:58 Atenolol (Tenormin) 25 mg BID PO 11/22/20 09:00 11/22/20 12:53 DC 11/22/20 09:51 Atenolol (Tenormin) 25 mg BID PO 11/24/20 09:00 12/05/20 08:33 Atenolol (Tenormin) 50 mg BID PO 11/22/20 21:00 11/24/20 00:13 DC 11/23/20 21:16 Atorvastatin Calcium (Lipitor) 40 mg QHS PO 11/18/20 21:00 11/24/20 01:45 DC 11/23/20 21:16 Atorvastatin Calcium (Lipitor) 40 mg QHS PO 11/24/20 21:00 12/04/20 20:44 Benztropine Mesylate (Cogentin) 1 mg BID PO 11/18/20 09:00 11/24/20 01:45 DC 11/23/20 21:15 Benztropine Mesylate (Cogentin) 1 mg BID PO 11/24/20 09:00 12/05/20 08:33 Cyclobenzaprine HCl (Flexeril) 10 mg QHS PO 11/20/20 21:00 11/24/20 01:45 DC 11/23/20 21:16 Cyclobenzaprine HCl (Flexeril) 10 mg QHS PO 11/24/20 21:00 12/04/20 20:44 Diphenhydramine HCl (Benadryl) 50 mg Q8HP PRN PO AGITATION 11/19/20 09:10 11/24/20 01:45 DC 11/23/20 17:51 Diphenhydramine HCl (Benadryl) 50 mg Q8HP PRN PO AGITATION 11/24/20 10:55 12/05/20 15:50 Diphenhydramine HCl (Benadryl) 50 mg STAT STAT IM 11/26/20 02:41 11/26/20 02:44 DC 11/26/20 02:53 Diphenhydramine HCl (Benadryl) 50 mg STAT STAT PO 11/19/20 06:48 11/19/20 06:50 DC 11/19/20 07:06 Docusate Sodium (Colace) 100 mg BID PO 11/18/20 21:00 11/24/20 01:45 DC 11/23/20 21:15 Docusate Sodium (Colace) 100 mg BID PO 11/24/20 09:00 12/05/20 08:33 Fluticasone Propionate (Flonase 0.05% Nasal [place]) 2 spray DAILY NARES 11/19/20 09:00 11/24/20 01:45 DC 11/23/20 08:01 Fluticasone Propionate (Flonase 0.05% Nasal [place]) 2 spray DAILY NARES 11/24/20 09:00 12/05/20 08:34 Haloperidol (Haldol) 10 mg Q8HP PRN PO AGITATION 11/19/20 09:10 11/24/20 01:45 DC 11/23/20 23:21 Haloperidol (Haldol) 10 mg Q8HP PRN PO AGITATION 11/24/20 10:55 12/05/20 15:50 Haloperidol (Haldol) 10 mg QHS PO 11/19/20 21:00 11/19/20 09:48 DC Haloperidol (Haldol) 10 mg QHS PO 11/19/20 21:00 11/24/20 01:45 DC 11/23/20 21:16 Haloperidol (Haldol) 10 mg QHS PO 11/24/20 21:00 12/04/20 20:44 Haloperidol (Haldol) 10 mg STAT STAT IM 11/26/20 02:41 11/26/20 02:44 DC 11/26/20 02:52 Haloperidol (Haldol) 10 mg STAT STAT PO 11/19/20 06:48 11/19/20 06:50 DC 11/19/20 07:06 Haloperidol Decanoate (Haldol Decanoate) 100 mg Q28D IM 11/28/20 12:00 11/28/20 13:26 Home Med (Med Rec Complete!) ASDIRECTED XX 11/17/20 23:25 11/17/20 23:24 DC Lamotrigine (LaMICtal) 200 mg DAILY PO 11/18/20 09:00 11/24/20 01:45 DC 11/23/20 08:00 Lamotrigine (LaMICtal) 200 mg DAILY PO 11/24/20 09:00 12/05/20 08:33 Levothyroxine Sodium (Synthroid) 100 mcg DAILY@06 PO 11/24/20 06:00 12/05/20 05:34 Levothyroxine Sodium (Synthroid) 100 mcg DAILY@0600 PO 11/19/20 06:00 11/24/20 01:45 DC 11/23/20 05:05 Lorazepam (Ativan) 2 mg Q8HP PRN PO ANXIETY/AGITATION 12/02/20 12:05 12/05/20 15:50 Lorazepam (Ativan) 2 mg Q8HP PRN PO AGITATION 11/19/20 09:10 11/24/20 01:45 DC 11/23/20 23:21 Lorazepam (Ativan) 2 mg Q8HP PRN PO AGITATION 11/24/20 10:55 12/01/20 10:54 DC 11/30/20 22:04 Lorazepam (Ativan) 2 mg STAT STAT IM 11/26/20 02:41 11/26/20 02:44 DC 11/26/20 02:53 Lorazepam (Ativan) 2 mg STAT STAT PO 11/19/20 06:48 11/19/20 06:50 DC 11/19/20 07:06 Losartan Potassium (Cozaar) 50 mg DAILY PO 11/19/20 09:00 11/22/20 08:55 DC 11/22/20 08:20 Magnesium Hydroxide (Milk Of Magnesia) 30 ml DAILYPRN PRN PO CONSTIPATION 11/18/20 12:40 11/24/20 01:45 DC Magnesium Hydroxide (Milk Of Magnesia) 30 ml DAILYPRN PRN PO CONSTIPATION 11/24/20 10:55 Metformin HCl (Glucophage) 1,000 mg BID@08,18 PO 11/24/20 08:00 12/05/20 08:10 Metformin HCl (Glucophage) 1,000 mg BID@0800,1800 PO 11/18/20 18:00 11/24/20 01:45 DC 11/23/20 17:34 Miscellaneous (Unresolved Clarification Entry) SEE LABEL COMMENTS DAILY XX 11/30/20 09:00 12/02/20 09:53 DC Miscellaneous (Unresolved Clarification Entry) SEE LABEL COMMENTS DAILY XX 12/02/20 09:00 12/02/20 12:12 DC Montelukast Sodium (Singulair) 10 mg QHS PO 11/18/20 21:00 11/24/20 01:45 DC 11/23/20 21:15 Montelukast Sodium (Singulair) 10 mg QHS PO 11/24/20 21:00 12/04/20 20:44 Oxybutynin Chloride (Ditropan) 5 mg DAILY PO 11/19/20 09:00 11/24/20 01:45 DC 11/23/20 08:00 Oxybutynin Chloride (Ditropan) 5 mg DAILY PO 11/24/20 09:00 12/05/20 08:33 Propranolol HCl (Inderal) 10 mg BID PO 11/18/20 21:00 11/22/20 08:55 DC 11/22/20 08:20 Quetiapine Fumarate (SEROquel) 200 mg QHS PO 11/19/20 21:00 11/24/20 01:45 DC 11/23/20 21:15 Quetiapine Fumarate (SEROquel) 200 mg QHS PO 11/24/20 21:00 12/04/20 08:57 DC 12/03/20 20:20 Quetiapine Fumarate (SEROquel) 300 mg QHS PO 12/04/20 21:00 12/04/20 20:45 Tamsulosin HCl (Flomax) 0.8 mg DAILY PO 11/19/20 09:00 11/24/20 01:45 DC 11/23/20 08:01 Tamsulosin HCl (Flomax) 0.8 mg DAILY PO 11/24/20 09:00 12/05/20 08:33 Trazodone HCl (Desyrel) 100 mg QPM PO 11/18/20 21:00 11/24/20 01:45 DC 11/23/20 21:16 Trazodone HCl (Desyrel) 100 mg QPM PO 11/24/20 21:00 12/04/20 20:44 Vitamin D (Vitamin D) 400 units DAILY PO 11/19/20 09:00 11/24/20 01:45 DC 11/23/20 08:00 Vitamin D (Vitamin D) 400 units DAILY PO 11/24/20 09:00 12/05/20 08:33 Allergies Coded Allergies: Penicillins (Verified Allergy, Intermediate, rash, 01/02/19) latex (Verified Allergy, Intermediate, rash, 12/13/19) divalproex sodium (Verified Allergy, Unknown, 01/02/19) AYESHA MOLINA MD Dec 05, 2020 17:02
[2020-12-05 18:20] VITALS: BP 143/81
[2020-12-05] MEDS: traZODone 100 MG TAB PO SCH (20:40)
[2020-12-05] MEDS: ATORVASTATIN 20 MG TAB PO SCH (20:42)
[2020-12-05] MEDS: MONTELUKAST 10 MG TAB PO SCH (20:42)
[2020-12-05] MEDS: CYCLOBENZAPRINE 10MG TABLET PO SCH (20:43)
[2020-12-05] MEDS: QUEtiapine FUMARATE 100 MG TAB PO SCH (20:43)
[2020-12-06] MEDS: diphenhydrAMINE 50MG CAP PO PRN (04:03)
[2020-12-06] MEDS: ACETAMINOPHEN TAB 650MG DOSE (2X325MG) PO PRN (04:08)
[2020-12-06] MEDS: LEVOTHYROXINE 100MCG TABLET (0.1MG) PO SCH (06:24)
[2020-12-06] MEDS: metFORMIN (GLUCOPHAGE) 1000 MG TABLET PO SCH ×2 (07:49→17:13)
[2020-12-06] MEDS: FLUTICASONE PROP 0.05% NASAL SPRAY 16 GM (FLONASE) NARES SCH (09:09)
[2020-12-06] MEDS: BENZTROPINE 1 MG TAB PO SCH ×2 (09:09→20:17)
[2020-12-06] MEDS: lamoTRIgine 100MG TAB PO SCH (09:09)
[2020-12-06] MEDS: TAMSULOSIN 0.4 MG CAP PO SCH (09:09)
[2020-12-06] MEDS: OMEGA-3 1000MG CAPSULE PO SCH (09:09)
[2020-12-06] MEDS: VITAMIN D (CHOLECALCIFEROL) 400 INTERNATIONAL UNITS TAB PO SCH (09:09)
[2020-12-06] MEDS: ASPIRIN 81MG ENTERIC TABLET PO SCH (09:09)
[2020-12-06] MEDS: oxyBUTYnin 5 MG TAB PO SCH (09:09)
[2020-12-06] MEDS: DOCUSATE SODIUM 100MG CAPSULE PO SCH ×2 (09:09→20:16)
[2020-12-06] MEDS: atenoloL 25 MG TAB PO SCH ×2 (09:10→20:17)
--- NOTE | 2020-12-06 10:20 | MHIPNPDOC ---
[facility] Progress Note Progress Note DATE OF SERVICE: 12/06/20 HISTORY: Patient a 50 y/o man with a past history of bipolar disorder and numerous admissions since his '. Was d/c from [facility] Jan 2010 and living in [facility] since. Was admitted on this occasion due to disorganized and paranoid behavior. Currently remains in contact isolation due to possible exposure previous treatment nursing staff. Interval: Per nursing staff patient flooded the room again last night on treatment team review. Otherwise no acute overnight events. Constantly has to be reminded to wear mask contact precautions. Continues to be somewhat concrete and bizarre, when asked if he heard voices states "I hear voices everywhere [place]". Despite this denies any aggression in the noted per chart review, compliant with medication. Uses iPad to watch movies and continues to laugh inappropriately at times. VITAL SIGNS: See below. NEW TEST RESULTS: None. CURRENT MEDICATIONS: See below. MENTAL STATUS EXAMINATION: Patient is a 50-year old male, who is in his room, mask and glasses, no acute distress, elevated, BMI, disheveled Speech: spontaneous, normal rate Language skills are poor. Thought processes including: Remains disorganized. Thought content: Denies Suicidal thoughts, intent or plan. Abstract reasoning, and computation: unable to fully assess. Description of associations: concrete Description of abnormal or psychotic thoughts: AH, grandiose delusions Judgment: poor Insight: poor Orientation: to place only Recent and remote memory: poor Attention span and concentration: Poor, distractible Language: disorganized Fund of knowledge: unable to fully assess Mood: "okay" Affect: Euthymic, stable, flat, non-aggressive DIAGNOSES: 1. Bipolar disorder, mixed episode per hx 2. R/O schizoaffective disorder, bipolar type ASSESSMENT: Continues to be grossly psychotic, pending [facility] placement, and progress per discharge plans. MANAGEMENT PLAN: Was discussed in treatment team. Continue regimen to further stabilize psychotic and hypomanic symptoms, lipid panel within normal limits, apart from low HDL. Continue omega 3s for low HDL. TIME SPENT: 15 minutes. Vital Signs Vital Signs Date Time Temp Pulse Resp B/P (MAP) Pulse Ox O2 Delivery O2 Flow Rate FiO2 12/06/20 09:10 89 165/90 12/05/20 18:20 97.7 20 12/05/20 07:55 Room Air 12/05/20 06:41 95 Current Medications Current Medications Medications (Trade) Dose Ordered Sig/Kailey Route PRN Reason Start Time Stop Time Status Last Admin Dose Admin Acetaminophen (Tylenol Tab) 650 mg Q6HP PRN PO MILD PAIN or TEMP > 101 12/01/20 16:05 12/06/20 04:08 Acetaminophen (Tylenol Tab) 650 mg Q6HP PRN PO HEADACHE or MILD DISCOMFORT 11/18/20 12:40 11/24/20 01:45 DC 11/23/20 03:09 Al Hydrox/Mg Hydrox/Simethicone (Mylanta) 30 ml Q4HP PRN PO HEARTBURN/INDIGESTION 11/18/20 12:40 11/24/20 01:45 DC 11/23/20 22:34 Amlodipine Besylate (Norvasc) 10 mg DAILY PO 11/19/20 09:00 11/22/20 08:55 DC 11/22/20 08:20 Aspirin (Ecotrin) 81 mg DAILY PO 11/24/20 09:00 12/06/20 09:09 Aspirin (Ecotrin) 81 mg QAM PO 11/22/20 09:00 11/24/20 01:45 DC 11/23/20 07:58 Atenolol (Tenormin) 25 mg BID PO 11/22/20 09:00 11/22/20 12:53 DC 11/22/20 09:51 Atenolol (Tenormin) 25 mg BID PO 11/24/20 09:00 12/06/20 09:10 Atenolol (Tenormin) 50 mg BID PO 11/22/20 21:00 11/24/20 00:13 DC 11/23/20 21:16 Atorvastatin Calcium (Lipitor) 40 mg QHS PO 11/18/20 21:00 11/24/20 01:45 DC 11/23/20 21:16 Atorvastatin Calcium (Lipitor) 40 mg QHS PO 11/24/20 21:00 12/05/20 20:42 Benztropine Mesylate (Cogentin) 1 mg BID PO 11/18/20 09:00 11/24/20 01:45 DC 11/23/20 21:15 Benztropine Mesylate (Cogentin) 1 mg BID PO 11/24/20 09:00 12/06/20 09:09 Cyclobenzaprine HCl (Flexeril) 10 mg QHS PO 11/20/20 21:00 11/24/20 01:45 DC 11/23/20 21:16 Cyclobenzaprine HCl (Flexeril) 10 mg QHS PO 11/24/20 21:00 12/05/20 20:43 Diphenhydramine HCl (Benadryl) 50 mg Q8HP PRN PO AGITATION 11/19/20 09:10 11/24/20 01:45 DC 11/23/20 17:51 Diphenhydramine HCl (Benadryl) 50 mg Q8HP PRN PO AGITATION 11/24/20 10:55 12/06/20 04:03 Diphenhydramine HCl (Benadryl) 50 mg STAT STAT IM 11/26/20 02:41 11/26/20 02:44 DC 11/26/20 02:53 Diphenhydramine HCl (Benadryl) 50 mg STAT STAT PO 11/19/20 06:48 11/19/20 06:50 DC 11/19/20 07:06 Docusate Sodium (Colace) 100 mg BID PO 11/18/20 21:00 11/24/20 01:45 DC 11/23/20 21:15 Docusate Sodium (Colace) 100 mg BID PO 11/24/20 09:00 12/06/20 09:09 Fish Oil ([place]-3 (1000mg)) 1 cap DAILY PO 12/06/20 09:00 12/06/20 09:09 Fluticasone Propionate (Flonase 0.05% Nasal [place]) 2 spray DAILY NARES 11/19/20 09:00 11/24/20 01:45 DC 11/23/20 08:01 Fluticasone Propionate (Flonase 0.05% Nasal [place]) 2 spray DAILY NARES 11/24/20 09:00 12/06/20 09:09 Haloperidol (Haldol) 10 mg Q8HP PRN PO AGITATION 11/19/20 09:10 11/24/20 01:45 DC 11/23/20 23:21 Haloperidol (Haldol) 10 mg Q8HP PRN PO AGITATION 11/24/20 10:55 12/05/20 15:50 Haloperidol (Haldol) 10 mg QHS PO 11/19/20 21:00 11/19/20 09:48 DC Haloperidol (Haldol) 10 mg QHS PO 11/19/20 21:00 11/24/20 01:45 DC 11/23/20 21:16 Haloperidol (Haldol) 10 mg QHS PO 11/24/20 21:00 12/05/20 20:43 Haloperidol (Haldol) 10 mg STAT STAT IM 11/26/20 02:41 11/26/20 02:44 DC 11/26/20 02:52 Haloperidol (Haldol) 10 mg STAT STAT PO 11/19/20 06:48 11/19/20 06:50 DC 11/19/20 07:06 Haloperidol Decanoate (Haldol Decanoate) 100 mg Q28D IM 11/28/20 12:00 11/28/20 13:26 Home Med (Med Rec Complete!) ASDIRECTED XX 11/17/20 23:25 11/17/20 23:24 DC Lamotrigine (LaMICtal) 200 mg DAILY PO 11/18/20 09:00 11/24/20 01:45 DC 11/23/20 08:00 Lamotrigine (LaMICtal) 200 mg DAILY PO 11/24/20 09:00 12/06/20 09:09 Levothyroxine Sodium (Synthroid) 100 mcg DAILY@06 PO 11/24/20 06:00 12/06/20 06:24 Levothyroxine Sodium (Synthroid) 100 mcg DAILY@0600 PO 11/19/20 06:00 11/24/20 01:45 DC 11/23/20 05:05 Lorazepam (Ativan) 2 mg Q8HP PRN PO ANXIETY/AGITATION 12/02/20 12:05 12/05/20 15:50 Lorazepam (Ativan) 2 mg Q8HP PRN PO AGITATION 11/19/20 09:10 11/24/20 01:45 DC 11/23/20 23:21 Lorazepam (Ativan) 2 mg Q8HP PRN PO AGITATION 11/24/20 10:55 12/01/20 10:54 DC 11/30/20 22:04 Lorazepam (Ativan) 2 mg STAT STAT IM 11/26/20 02:41 11/26/20 02:44 DC 11/26/20 02:53 Lorazepam (Ativan) 2 mg STAT STAT PO 11/19/20 06:48 11/19/20 06:50 DC 11/19/20 07:06 Losartan Potassium (Cozaar) 50 mg DAILY PO 11/19/20 09:00 11/22/20 08:55 DC 11/22/20 08:20 Magnesium Hydroxide (Milk Of Magnesia) 30 ml DAILYPRN PRN PO CONSTIPATION 11/18/20 12:40 11/24/20 01:45 DC Magnesium Hydroxide (Milk Of Magnesia) 30 ml DAILYPRN PRN PO CONSTIPATION 11/24/20 10:55 Metformin HCl (Glucophage) 1,000 mg BID@08,18 PO 11/24/20 08:00 12/06/20 07:49 Metformin HCl (Glucophage) 1,000 mg BID@0800,1800 PO 11/18/20 18:00 11/24/20 01:45 DC 11/23/20 17:34 Miscellaneous (Unresolved Clarification Entry) SEE LABEL COMMENTS DAILY XX 11/30/20 09:00 12/02/20 09:53 DC Miscellaneous (Unresolved Clarification Entry) SEE LABEL COMMENTS DAILY XX 12/02/20 09:00 12/02/20 12:12 DC Montelukast Sodium (Singulair) 10 mg QHS PO 11/18/20 21:00 11/24/20 01:45 DC 11/23/20 21:15 Montelukast Sodium (Singulair) 10 mg QHS PO 11/24/20 21:00 12/05/20 20:42 Oxybutynin Chloride (Ditropan) 5 mg DAILY PO 11/19/20 09:00 11/24/20 01:45 DC 11/23/20 08:00 Oxybutynin Chloride (Ditropan) 5 mg DAILY PO 11/24/20 09:00 12/06/20 09:09 Propranolol HCl (Inderal) 10 mg BID PO 11/18/20 21:00 11/22/20 08:55 DC 11/22/20 08:20 Quetiapine Fumarate (SEROquel) 200 mg QHS PO 11/19/20 21:00 11/24/20 01:45 DC 11/23/20 21:15 Quetiapine Fumarate (SEROquel) 200 mg QHS PO 11/24/20 21:00 12/04/20 08:57 DC 12/03/20 20:20 Quetiapine Fumarate (SEROquel) 300 mg QHS PO 12/04/20 21:00 12/05/20 20:43 Tamsulosin HCl (Flomax) 0.8 mg DAILY PO 11/19/20 09:00 11/24/20 01:45 DC 11/23/20 08:01 Tamsulosin HCl (Flomax) 0.8 mg DAILY PO 11/24/20 09:00 12/06/20 09:09 Trazodone HCl (Desyrel) 100 mg QPM PO 11/18/20 21:00 11/24/20 01:45 DC 11/23/20 21:16 Trazodone HCl (Desyrel) 100 mg QPM PO 11/24/20 21:00 12/05/20 20:40 Vitamin D (Vitamin D) 400 units DAILY PO 11/19/20 09:00 11/24/20 01:45 DC 11/23/20 08:00 Vitamin D (Vitamin D) 400 units DAILY PO 11/24/20 09:00 12/06/20 09:09 Allergies Coded Allergies: Penicillins (Verified Allergy, Intermediate, rash, 01/02/19) latex (Verified Allergy, Intermediate, rash, 12/13/19) divalproex sodium (Verified Allergy, Unknown, 01/02/19) AYESHA MOLINA MD Dec 06, 2020 10:20
[2020-12-06 16:02] VITALS: BP 118/60
[2020-12-06] MEDS: QUEtiapine FUMARATE 100 MG TAB PO SCH (20:17)
[2020-12-06] MEDS: ATORVASTATIN 20 MG TAB PO SCH (20:17)
[2020-12-06] MEDS: CYCLOBENZAPRINE 10MG TABLET PO SCH (20:17)
[2020-12-06] MEDS: traZODone 100 MG TAB PO SCH (20:17)
[2020-12-06] MEDS: MONTELUKAST 10 MG TAB PO SCH (20:17)
[2020-12-07] MEDS: LEVOTHYROXINE 100MCG TABLET (0.1MG) PO SCH (05:44)
[2020-12-07 06:21] VITALS: BP 119/83
[2020-12-07] MEDS: metFORMIN (GLUCOPHAGE) 1000 MG TABLET PO SCH ×2 (07:21→17:17)
[2020-12-07] MEDS: DOCUSATE SODIUM 100MG CAPSULE PO SCH ×2 (08:17→21:52)
[2020-12-07] MEDS: TAMSULOSIN 0.4 MG CAP PO SCH (08:17)
[2020-12-07] MEDS: BENZTROPINE 1 MG TAB PO SCH ×2 (08:17→21:53)
[2020-12-07] MEDS: atenoloL 25 MG TAB PO SCH ×2 (08:18→21:53)
[2020-12-07] MEDS: lamoTRIgine 100MG TAB PO SCH (08:18)
[2020-12-07] MEDS: OMEGA-3 1000MG CAPSULE PO SCH (08:18)
[2020-12-07] MEDS: oxyBUTYnin 5 MG TAB PO SCH (08:18)
[2020-12-07] MEDS: ASPIRIN 81MG ENTERIC TABLET PO SCH (08:18)
[2020-12-07] MEDS: VITAMIN D (CHOLECALCIFEROL) 400 INTERNATIONAL UNITS TAB PO SCH (08:18)
[2020-12-07] MEDS: FLUTICASONE PROP 0.05% NASAL SPRAY 16 GM (FLONASE) NARES SCH (08:19)
[2020-12-07] MEDS ORDERED: HALOPERIDOL 5MG/ML VIAL (J1630 PER 1) IM ONE (08:30)
[2020-12-07] MEDS ORDERED: diphenhydrAMINE 50MG/ML VIAL (J1200) IM ONE (08:30)
[2020-12-07] MEDS ORDERED: LORazepam 2 MG/ML VIAL IM ONE (08:30)
[2020-12-07 16:26] VITALS: BP 133/83
[2020-12-07] MEDS: traZODone 100 MG TAB PO SCH (21:52)
[2020-12-07] MEDS: ATORVASTATIN 20 MG TAB PO SCH (21:52)
[2020-12-07] MEDS: CYCLOBENZAPRINE 10MG TABLET PO SCH (21:52)
[2020-12-07] MEDS: QUEtiapine FUMARATE 100 MG TAB PO SCH (21:52)
[2020-12-07] MEDS: MONTELUKAST 10 MG TAB PO SCH (21:52)
[2020-12-08] MEDS: LEVOTHYROXINE 100MCG TABLET (0.1MG) PO SCH (05:37)
[2020-12-08] MEDS: ACETAMINOPHEN TAB 650MG DOSE (2X325MG) PO PRN ×2 (05:38→11:21)
[2020-12-08 06:48] VITALS: BP 144/88
[2020-12-08] MEDS: metFORMIN (GLUCOPHAGE) 1000 MG TABLET PO SCH ×2 (07:32→17:44)
[2020-12-08] MEDS: lamoTRIgine 100MG TAB PO SCH (08:33)
[2020-12-08] MEDS: VITAMIN D (CHOLECALCIFEROL) 400 INTERNATIONAL UNITS TAB PO SCH (08:33)
[2020-12-08] MEDS: TAMSULOSIN 0.4 MG CAP PO SCH (08:33)
[2020-12-08] MEDS: FLUTICASONE PROP 0.05% NASAL SPRAY 16 GM (FLONASE) NARES SCH (08:33)
[2020-12-08] MEDS: DOCUSATE SODIUM 100MG CAPSULE PO SCH ×2 (08:33→20:36)
[2020-12-08] MEDS: ASPIRIN 81MG ENTERIC TABLET PO SCH (08:33)
[2020-12-08] MEDS: BENZTROPINE 1 MG TAB PO SCH ×2 (08:33→20:36)
[2020-12-08] MEDS: oxyBUTYnin 5 MG TAB PO SCH (08:34)
[2020-12-08] MEDS: atenoloL 25 MG TAB PO SCH ×2 (08:34→20:36)
[2020-12-08] MEDS: OMEGA-3 1000MG CAPSULE PO SCH (08:34)
[2020-12-08] MEDS: diphenhydrAMINE 50MG CAP PO PRN (11:20)
[2020-12-08 16:26] VITALS: BP 160/90
[2020-12-08] MEDS: traZODone 100 MG TAB PO SCH (20:36)
[2020-12-08] MEDS: ATORVASTATIN 20 MG TAB PO SCH (20:36)
[2020-12-08] MEDS: MONTELUKAST 10 MG TAB PO SCH (20:36)
[2020-12-08] MEDS: QUEtiapine FUMARATE 100 MG TAB PO SCH (20:36)
[2020-12-08] MEDS: CYCLOBENZAPRINE 10MG TABLET PO SCH (20:36)
[2020-12-09 05:44] VITALS: BP 162/90
[2020-12-09] MEDS: LEVOTHYROXINE 100MCG TABLET (0.1MG) PO SCH (06:14)
[2020-12-09] MEDS: oxyBUTYnin 5 MG TAB PO SCH (08:38)
[2020-12-09] MEDS: DOCUSATE SODIUM 100MG CAPSULE PO SCH ×2 (08:38→21:03)
[2020-12-09] MEDS: OMEGA-3 1000MG CAPSULE PO SCH (08:38)
[2020-12-09] MEDS: FLUTICASONE PROP 0.05% NASAL SPRAY 16 GM (FLONASE) NARES SCH (08:38)
[2020-12-09] MEDS: BENZTROPINE 1 MG TAB PO SCH ×2 (08:39→21:04)
[2020-12-09] MEDS: ASPIRIN 81MG ENTERIC TABLET PO SCH (08:39)
[2020-12-09] MEDS: metFORMIN (GLUCOPHAGE) 1000 MG TABLET PO SCH ×2 (08:39→18:05)
[2020-12-09] MEDS: atenoloL 25 MG TAB PO SCH ×2 (08:39→21:03)
[2020-12-09] MEDS: VITAMIN D (CHOLECALCIFEROL) 400 INTERNATIONAL UNITS TAB PO SCH (08:39)
[2020-12-09] MEDS: lamoTRIgine 100MG TAB PO SCH (08:39)
[2020-12-09] MEDS: TAMSULOSIN 0.4 MG CAP PO SCH (08:39)
--- NOTE | 2020-12-09 10:31 | MHIPNPDOC ---
[facility] Progress Note Progress Note DATE OF SERVICE: 12/09/20 HISTORY: Patient a 50 y/o man with a past history of bipolar disorder and numerous admissions since his 20's. Was d/c from [facility] [place] [facility] Jan 2010 and living in [facility] since. Was admitted on this occasion due to disorganized and paranoid behavior. Currently remains in contact isolation due to possible exposure previous treatment nursing staff. Interval: Acute overnight events, has been going to some groups, states today mood is "good, because everyone comes in and out of my heart". Denies any acute distress, no aggression. Seen walking around in the milieu. Reports eating and sleeping normally. VITAL SIGNS: See below. NEW TEST RESULTS: None. CURRENT MEDICATIONS: See below. MENTAL STATUS EXAMINATION: Patient is a 50-year old male, who is in his room, mask and glasses, no acute distress, elevated, BMI, somewhat improved hygiene Speech: spontaneous, normal rate Language skills are poor. Thought processes including: Remains disorganized. Thought content: Denies Suicidal thoughts, intent or plan. Abstract reasoning, and computation: unable to fully assess. Description of associations: concrete Description of abnormal or psychotic thoughts: AH, grandiose and bizarre delusions, noncommand, nonaggressive Judgment: poor Insight: poor Orientation: to place only Recent and remote memory: poor Attention span and concentration: Poor, distractible Language: disorganized Fund of knowledge: unable to fully assess Mood: "Good" Affect: Euthymic, continues to be stable, flat, non-aggressive DIAGNOSES: 1. Bipolar disorder, mixed episode per hx 2. R/O schizoaffective disorder, bipolar type ASSESSMENT: Continues to be psychotic but is calm and relaxed, with no aggression, pending [facility] placement. MANAGEMENT PLAN: No longer in contact isolation. Was discussed in treatment team. Continue regimen to further stabilize psychotic and hypomanic symptoms. Continue omega 3s for low HDL. TIME SPENT: 15 minutes. Vital Signs Vital Signs Date Time Temp Pulse Resp B/P (MAP) Pulse Ox O2 Delivery O2 Flow Rate FiO2 12/09/20 08:39 157/88 12/09/20 05:44 97.2 74 18 96 Room Air Current Medications Current Medications Medications (Trade) Dose Ordered Sig/Kailey Route PRN Reason Start Time Stop Time Status Last Admin Dose Admin Acetaminophen (Tylenol Tab) 650 mg Q6HP PRN PO MILD PAIN or TEMP > 101 12/01/20 16:05 12/08/20 11:21 Acetaminophen (Tylenol Tab) 650 mg Q6HP PRN PO HEADACHE or MILD DISCOMFORT 11/18/20 12:40 11/24/20 01:45 DC 11/23/20 03:09 Al Hydrox/Mg Hydrox/Simethicone (Mylanta) 30 ml Q4HP PRN PO HEARTBURN/INDIGESTION 11/18/20 12:40 11/24/20 01:45 DC 11/23/20 22:34 Amlodipine Besylate (Norvasc) 10 mg DAILY PO 11/19/20 09:00 11/22/20 08:55 DC 11/22/20 08:20 Aspirin (Ecotrin) 81 mg DAILY PO 11/24/20 09:00 12/09/20 08:39 Aspirin (Ecotrin) 81 mg QAM PO 11/22/20 09:00 11/24/20 01:45 DC 11/23/20 07:58 Atenolol (Tenormin) 25 mg BID PO 11/22/20 09:00 11/22/20 12:53 DC 11/22/20 09:51 Atenolol (Tenormin) 25 mg BID PO 11/24/20 09:00 12/09/20 08:39 Atenolol (Tenormin) 50 mg BID PO 11/22/20 21:00 11/24/20 00:13 DC 11/23/20 21:16 Atorvastatin Calcium (Lipitor) 40 mg QHS PO 11/18/20 21:00 11/24/20 01:45 DC 11/23/20 21:16 Atorvastatin Calcium (Lipitor) 40 mg QHS PO 11/24/20 21:00 12/08/20 20:36 Benztropine Mesylate (Cogentin) 1 mg BID PO 11/18/20 09:00 11/24/20 01:45 DC 11/23/20 21:15 Benztropine Mesylate (Cogentin) 1 mg BID PO 11/24/20 09:00 12/09/20 08:39 Cyclobenzaprine HCl (Flexeril) 10 mg QHS PO 11/20/20 21:00 11/24/20 01:45 DC 11/23/20 21:16 Cyclobenzaprine HCl (Flexeril) 10 mg QHS PO 11/24/20 21:00 12/08/20 20:36 Diphenhydramine HCl (Benadryl) 50 mg Q8HP PRN PO AGITATION 11/19/20 09:10 11/24/20 01:45 DC 11/23/20 17:51 Diphenhydramine HCl (Benadryl) 50 mg Q8HP PRN PO AGITATION 11/24/20 10:55 12/08/20 11:20 Diphenhydramine HCl (Benadryl) 50 mg STAT STAT IM 11/26/20 02:41 11/26/20 02:44 DC 11/26/20 02:53 Diphenhydramine HCl (Benadryl) 50 mg STAT STAT PO 11/19/20 06:48 11/19/20 06:50 DC 11/19/20 07:06 Docusate Sodium (Colace) 100 mg BID PO 11/18/20 21:00 11/24/20 01:45 DC 11/23/20 21:15 Docusate Sodium (Colace) 100 mg BID PO 11/24/20 09:00 12/09/20 08:38 Fish Oil ([place]-3 (1000mg)) 1 cap DAILY PO 12/06/20 09:00 12/09/20 08:38 Fluticasone Propionate (Flonase 0.05% Nasal [place]) 2 spray DAILY NARES 11/19/20 09:00 11/24/20 01:45 DC 11/23/20 08:01 Fluticasone Propionate (Flonase 0.05% Nasal [place]) 2 spray DAILY NARES 11/24/20 09:00 12/09/20 08:38 Haloperidol (Haldol) 10 mg Q8HP PRN PO AGITATION 11/19/20 09:10 11/24/20 01:45 DC 11/23/20 23:21 Haloperidol (Haldol) 10 mg Q8HP PRN PO AGITATION 11/24/20 10:55 12/05/20 15:50 Haloperidol (Haldol) 10 mg QHS PO 11/19/20 21:00 11/19/20 09:48 DC Haloperidol (Haldol) 10 mg QHS PO 11/19/20 21:00 11/24/20 01:45 DC 11/23/20 21:16 Haloperidol (Haldol) 10 mg QHS PO 11/24/20 21:00 12/08/20 20:36 Haloperidol (Haldol) 10 mg STAT STAT IM 11/26/20 02:41 11/26/20 02:44 DC 11/26/20 02:52 Haloperidol (Haldol) 10 mg STAT STAT PO 11/19/20 06:48 11/19/20 06:50 DC 11/19/20 07:06 Haloperidol Decanoate (Haldol Decanoate) 100 mg Q28D IM 11/28/20 12:00 11/28/20 13:26 Home Med (Med Rec Complete!) ASDIRECTED XX 11/17/20 23:25 11/17/20 23:24 DC Lamotrigine (LaMICtal) 200 mg DAILY PO 11/18/20 09:00 11/24/20 01:45 DC 11/23/20 08:00 Lamotrigine (LaMICtal) 200 mg DAILY PO 11/24/20 09:00 12/09/20 08:39 Levothyroxine Sodium (Synthroid) 100 mcg DAILY@06 PO 11/24/20 06:00 12/09/20 06:14 Levothyroxine Sodium (Synthroid) 100 mcg DAILY@0600 PO 11/19/20 06:00 11/24/20 01:45 DC 11/23/20 05:05 Lorazepam (Ativan) 2 mg Q8HP PRN PO ANXIETY/AGITATION 12/02/20 12:05 12/05/20 15:50 Lorazepam (Ativan) 2 mg Q8HP PRN PO AGITATION 11/19/20 09:10 11/24/20 01:45 DC 11/23/20 23:21 Lorazepam (Ativan) 2 mg Q8HP PRN PO AGITATION 11/24/20 10:55 12/01/20 10:54 DC 11/30/20 22:04 Lorazepam (Ativan) 2 mg STAT STAT IM 11/26/20 02:41 11/26/20 02:44 DC 11/26/20 02:53 Lorazepam (Ativan) 2 mg STAT STAT PO 11/19/20 06:48 11/19/20 06:50 DC 11/19/20 07:06 Losartan Potassium (Cozaar) 50 mg DAILY PO 11/19/20 09:00 11/22/20 08:55 DC 11/22/20 08:20 Magnesium Hydroxide (Milk Of Magnesia) 30 ml DAILYPRN PRN PO CONSTIPATION 11/18/20 12:40 11/24/20 01:45 DC Magnesium Hydroxide (Milk Of Magnesia) 30 ml DAILYPRN PRN PO CONSTIPATION 11/24/20 10:55 Metformin HCl (Glucophage) 1,000 mg BID@08,18 PO 11/24/20 08:00 12/09/20 08:39 Metformin HCl (Glucophage) 1,000 mg BID@0800,1800 PO 11/18/20 18:00 11/24/20 01:45 DC 11/23/20 17:34 Miscellaneous (Unresolved Clarification Entry) SEE LABEL COMMENTS DAILY XX 11/30/20 09:00 12/02/20 09:53 DC Miscellaneous (Unresolved Clarification Entry) SEE LABEL COMMENTS DAILY XX 12/02/20 09:00 12/02/20 12:12 DC Montelukast Sodium (Singulair) 10 mg QHS PO 11/18/20 21:00 11/24/20 01:45 DC 11/23/20 21:15 Montelukast Sodium (Singulair) 10 mg QHS PO 11/24/20 21:00 12/08/20 20:36 Oxybutynin Chloride (Ditropan) 5 mg DAILY PO 11/19/20 09:00 11/24/20 01:45 DC 11/23/20 08:00 Oxybutynin Chloride (Ditropan) 5 mg DAILY PO 11/24/20 09:00 12/09/20 08:38 Propranolol HCl (Inderal) 10 mg BID PO 11/18/20 21:00 11/22/20 08:55 DC 11/22/20 08:20 Quetiapine Fumarate (SEROquel) 200 mg QHS PO 11/19/20 21:00 11/24/20 01:45 DC 11/23/20 21:15 Quetiapine Fumarate (SEROquel) 200 mg QHS PO 11/24/20 21:00 12/04/20 08:57 DC 12/03/20 20:20 Quetiapine Fumarate (SEROquel) 300 mg QHS PO 12/04/20 21:00 12/08/20 20:36 Tamsulosin HCl (Flomax) 0.8 mg DAILY PO 11/19/20 09:00 11/24/20 01:45 DC 11/23/20 08:01 Tamsulosin HCl (Flomax) 0.8 mg DAILY PO 11/24/20 09:00 12/09/20 08:39 Trazodone HCl (Desyrel) 100 mg QPM PO 11/18/20 21:00 11/24/20 01:45 DC 11/23/20 21:16 Trazodone HCl (Desyrel) 100 mg QPM PO 11/24/20 21:00 12/08/20 20:36 Vitamin D (Vitamin D) 400 units DAILY PO 11/19/20 09:00 11/24/20 01:45 DC 11/23/20 08:00 Vitamin D (Vitamin D) 400 units DAILY PO 11/24/20 09:00 12/09/20 08:39 Allergies Coded Allergies: Penicillins (Verified Allergy, Intermediate, rash, 01/02/19) latex (Verified Allergy, Intermediate, rash, 12/13/19) divalproex sodium (Verified Allergy, Unknown, 01/02/19) AYESHA MOLINA MD Dec 09, 2020 10:31
[2020-12-09] MEDS: ACETAMINOPHEN TAB 650MG DOSE (2X325MG) PO PRN (14:34)
[2020-12-09 19:20] VITALS: BP 142/77
[2020-12-09] MEDS: MONTELUKAST 10 MG TAB PO SCH (21:03)
[2020-12-09] MEDS: traZODone 100 MG TAB PO SCH (21:03)
[2020-12-09] MEDS: CYCLOBENZAPRINE 10MG TABLET PO SCH (21:03)
[2020-12-09] MEDS: ATORVASTATIN 20 MG TAB PO SCH (21:03)
[2020-12-09] MEDS: QUEtiapine FUMARATE 100 MG TAB PO SCH (21:03)
[2020-12-10] MEDS: ACETAMINOPHEN TAB 650MG DOSE (2X325MG) PO PRN ×3 (02:26→21:18)
[2020-12-10] MEDS: LEVOTHYROXINE 100MCG TABLET (0.1MG) PO SCH (05:32)
[2020-12-10 06:28] VITALS: BP 160/91
[2020-12-10] MEDS: FLUTICASONE PROP 0.05% NASAL SPRAY 16 GM (FLONASE) NARES SCH (08:22)
[2020-12-10] MEDS: OMEGA-3 1000MG CAPSULE PO SCH (08:22)
[2020-12-10] MEDS: oxyBUTYnin 5 MG TAB PO SCH (08:23)
[2020-12-10] MEDS: metFORMIN (GLUCOPHAGE) 1000 MG TABLET PO SCH ×2 (08:24→17:21)
[2020-12-10] MEDS: VITAMIN D (CHOLECALCIFEROL) 400 INTERNATIONAL UNITS TAB PO SCH (08:24)
[2020-12-10] MEDS: TAMSULOSIN 0.4 MG CAP PO SCH (08:24)
[2020-12-10] MEDS: BENZTROPINE 1 MG TAB PO SCH ×2 (08:25→21:17)
[2020-12-10] MEDS: lamoTRIgine 100MG TAB PO SCH (08:25)
[2020-12-10] MEDS: atenoloL 25 MG TAB PO SCH ×2 (08:25→21:18)
[2020-12-10] MEDS: DOCUSATE SODIUM 100MG CAPSULE PO SCH ×2 (08:26→21:17)
[2020-12-10] MEDS: ASPIRIN 81MG ENTERIC TABLET PO SCH (08:26)
[2020-12-10] MEDS: diphenhydrAMINE 50MG CAP PO PRN (12:58)
[2020-12-10] MEDS: LORazepam 2 MG TAB PO PRN (12:59)
--- NOTE | 2020-12-10 16:49 | MHIPNPDOC ---
[facility] Progress Note Progress Note DATE OF SERVICE: 12/10/20 HISTORY: Patient a 50 y/o man with a past history of bipolar disorder and numerous admissions since his 20's. Was d/c from [facility] [place] Jan 2010 and living in [facility] since. Was admitted on this occasion due to disorganized and paranoid behavior. Currently remains in contact isolation due to possible exposure previous treatment nursing staff. Interval: Patient continues to be disorganized and internally preoccupied, per nursing is sexually preoccupied and is redirected to have appropriate behavior. Reports some reflux and previous benefit with prilosec, agrees to it being ordered. No aggression or agitation, moods continue to cycle per nursing staff between elevated and depressed mood states. VITAL SIGNS: See below. NEW TEST RESULTS: None. CURRENT MEDICATIONS: See below. MENTAL STATUS EXAMINATION: Patient is a 50-year old male, who is seen by his room, mask and glasses, no acute distress, elevated, BMI, somewhat improved hygiene Speech: spontaneous, normal rate Language skills are poor. Thought processes including: Remains disorganized and sexually preoccupied Thought content: Denies Suicidal thoughts, intent or plan. Abstract reasoning, and computation: unable to fully assess. Description of associations: concrete Description of abnormal or psychotic thoughts: AH, grandiose and bizarre delusions Judgment: poor Insight: poor Orientation: to place only Recent and remote memory: poor Attention span and concentration: Poor, distractible Language: disorganized Fund of knowledge: unable to fully assess Mood: "Good" Affect: Euthymic, continues to be stable, flat, non-aggressive DIAGNOSES: 1. Bipolar disorder, mixed episode per hx 2. R/O schizoaffective disorder, bipolar type ASSESSMENT: Continues to be grossly psychotic, with no aggression, pending [facility] placement. MANAGEMENT PLAN: Was discussed in treatment team. Continue regimen to further stabilize psychotic and hypomanic symptoms. Continue omega 3s for low HDL. TIME SPENT: 15 minutes. Vital Signs Vital Signs Date Time Temp Pulse Resp B/P (MAP) Pulse Ox O2 Delivery O2 Flow Rate FiO2 12/10/20 08:25 70 160/91 12/10/20 06:28 97.2 18 93 Room Air Current Medications Current Medications Medications (Trade) Dose Ordered Sig/Kailey Route PRN Reason Start Time Stop Time Status Last Admin Dose Admin Acetaminophen (Tylenol Tab) 650 mg Q6HP PRN PO MILD PAIN or TEMP > 101 12/01/20 16:05 12/10/20 15:09 Acetaminophen (Tylenol Tab) 650 mg Q6HP PRN PO HEADACHE or MILD DISCOMFORT 11/18/20 12:40 11/24/20 01:45 DC 11/23/20 03:09 Al Hydrox/Mg Hydrox/Simethicone (Mylanta) 30 ml Q4HP PRN PO HEARTBURN/INDIGESTION 11/18/20 12:40 11/24/20 01:45 DC 11/23/20 22:34 Amlodipine Besylate (Norvasc) 10 mg DAILY PO 11/19/20 09:00 11/22/20 08:55 DC 11/22/20 08:20 Aspirin (Ecotrin) 81 mg DAILY PO 11/24/20 09:00 12/10/20 08:26 Aspirin (Ecotrin) 81 mg QAM PO 11/22/20 09:00 11/24/20 01:45 DC 11/23/20 07:58 Atenolol (Tenormin) 25 mg BID PO 11/22/20 09:00 11/22/20 12:53 DC 11/22/20 09:51 Atenolol (Tenormin) 25 mg BID PO 11/24/20 09:00 12/10/20 08:25 Atenolol (Tenormin) 50 mg BID PO 11/22/20 21:00 11/24/20 00:13 DC 11/23/20 21:16 Atorvastatin Calcium (Lipitor) 40 mg QHS PO 11/18/20 21:00 11/24/20 01:45 DC 11/23/20 21:16 Atorvastatin Calcium (Lipitor) 40 mg QHS PO 11/24/20 21:00 12/09/20 21:03 Benztropine Mesylate (Cogentin) 1 mg BID PO 11/18/20 09:00 11/24/20 01:45 DC 11/23/20 21:15 Benztropine Mesylate (Cogentin) 1 mg BID PO 11/24/20 09:00 12/10/20 08:25 Cyclobenzaprine HCl (Flexeril) 10 mg QHS PO 11/20/20 21:00 11/24/20 01:45 DC 11/23/20 21:16 Cyclobenzaprine HCl (Flexeril) 10 mg QHS PO 11/24/20 21:00 12/09/20 21:03 Diphenhydramine HCl (Benadryl) 50 mg Q8HP PRN PO AGITATION 11/19/20 09:10 11/24/20 01:45 DC 11/23/20 17:51 Diphenhydramine HCl (Benadryl) 50 mg Q8HP PRN PO AGITATION 11/24/20 10:55 12/10/20 12:58 Diphenhydramine HCl (Benadryl) 50 mg STAT STAT IM 11/26/20 02:41 11/26/20 02:44 DC 11/26/20 02:53 Diphenhydramine HCl (Benadryl) 50 mg STAT STAT PO 11/19/20 06:48 11/19/20 06:50 DC 11/19/20 07:06 Docusate Sodium (Colace) 100 mg BID PO 11/18/20 21:00 11/24/20 01:45 DC 11/23/20 21:15 Docusate Sodium (Colace) 100 mg BID PO 11/24/20 09:00 12/10/20 08:26 Fish Oil ([place]-3 (1000mg)) 1 cap DAILY PO 12/06/20 09:00 12/10/20 08:22 Fluticasone Propionate (Flonase 0.05% Nasal [place]) 2 spray DAILY NARES 11/19/20 09:00 11/24/20 01:45 DC 11/23/20 08:01 Fluticasone Propionate (Flonase 0.05% Nasal [place]) 2 spray DAILY NARES 11/24/20 09:00 12/10/20 08:22 Haloperidol (Haldol) 10 mg Q8HP PRN PO AGITATION 11/19/20 09:10 11/24/20 01:45 DC 11/23/20 23:21 Haloperidol (Haldol) 10 mg Q8HP PRN PO AGITATION 11/24/20 10:55 12/10/20 12:58 Haloperidol (Haldol) 10 mg QHS PO 11/19/20 21:00 11/19/20 09:48 DC Haloperidol (Haldol) 10 mg QHS PO 11/19/20 21:00 11/24/20 01:45 DC 11/23/20 21:16 Haloperidol (Haldol) 10 mg QHS PO 11/24/20 21:00 12/09/20 21:03 Haloperidol (Haldol) 10 mg STAT STAT IM 11/26/20 02:41 11/26/20 02:44 DC 11/26/20 02:52 Haloperidol (Haldol) 10 mg STAT STAT PO 11/19/20 06:48 11/19/20 06:50 DC 11/19/20 07:06 Haloperidol Decanoate (Haldol Decanoate) 100 mg Q28D IM 11/28/20 12:00 11/28/20 13:26 Home Med (Med Rec Complete!) ASDIRECTED XX 11/17/20 23:25 11/17/20 23:24 DC Lamotrigine (LaMICtal) 200 mg DAILY PO 11/18/20 09:00 11/24/20 01:45 DC 11/23/20 08:00 Lamotrigine (LaMICtal) 200 mg DAILY PO 11/24/20 09:00 12/10/20 08:25 Levothyroxine Sodium (Synthroid) 100 mcg DAILY@06 PO 11/24/20 06:00 12/10/20 05:32 Levothyroxine Sodium (Synthroid) 100 mcg DAILY@0600 PO 11/19/20 06:00 11/24/20 01:45 DC 11/23/20 05:05 Lorazepam (Ativan) 2 mg Q8HP PRN PO ANXIETY/AGITATION 12/02/20 12:05 12/10/20 12:59 Lorazepam (Ativan) 2 mg Q8HP PRN PO AGITATION 11/19/20 09:10 11/24/20 01:45 DC 11/23/20 23:21 Lorazepam (Ativan) 2 mg Q8HP PRN PO AGITATION 11/24/20 10:55 12/01/20 10:54 DC 11/30/20 22:04 Lorazepam (Ativan) 2 mg STAT STAT IM 11/26/20 02:41 11/26/20 02:44 DC 11/26/20 02:53 Lorazepam (Ativan) 2 mg STAT STAT PO 11/19/20 06:48 11/19/20 06:50 DC 11/19/20 07:06 Losartan Potassium (Cozaar) 50 mg DAILY PO 11/19/20 09:00 11/22/20 08:55 DC 11/22/20 08:20 Magnesium Hydroxide (Milk Of Magnesia) 30 ml DAILYPRN PRN PO CONSTIPATION 11/18/20 12:40 11/24/20 01:45 DC Magnesium Hydroxide (Milk Of Magnesia) 30 ml DAILYPRN PRN PO CONSTIPATION 11/24/20 10:55 Metformin HCl (Glucophage) 1,000 mg BID@08,18 PO 11/24/20 08:00 12/10/20 08:24 Metformin HCl (Glucophage) 1,000 mg BID@0800,1800 PO 11/18/20 18:00 11/24/20 01:45 DC 11/23/20 17:34 Miscellaneous (Unresolved Clarification Entry) SEE LABEL COMMENTS DAILY XX 11/30/20 09:00 12/02/20 09:53 DC Miscellaneous (Unresolved Clarification Entry) SEE LABEL COMMENTS DAILY XX 12/02/20 09:00 12/02/20 12:12 DC Montelukast Sodium (Singulair) 10 mg QHS PO 11/18/20 21:00 11/24/20 01:45 DC 11/23/20 21:15 Montelukast Sodium (Singulair) 10 mg QHS PO 11/24/20 21:00 12/09/20 21:03 Oxybutynin Chloride (Ditropan) 5 mg DAILY PO 11/19/20 09:00 11/24/20 01:45 DC 11/23/20 08:00 Oxybutynin Chloride (Ditropan) 5 mg DAILY PO 11/24/20 09:00 12/10/20 08:23 Propranolol HCl (Inderal) 10 mg BID PO 11/18/20 21:00 11/22/20 08:55 DC 11/22/20 08:20 Quetiapine Fumarate (SEROquel) 200 mg QHS PO 11/19/20 21:00 11/24/20 01:45 DC 11/23/20 21:15 Quetiapine Fumarate (SEROquel) 200 mg QHS PO 11/24/20 21:00 12/04/20 08:57 DC 12/03/20 20:20 Quetiapine Fumarate (SEROquel) 300 mg QHS PO 12/04/20 21:00 12/09/20 21:03 Tamsulosin HCl (Flomax) 0.8 mg DAILY PO 11/19/20 09:00 11/24/20 01:45 DC 11/23/20 08:01 Tamsulosin HCl (Flomax) 0.8 mg DAILY PO 11/24/20 09:00 12/10/20 08:24 Trazodone HCl (Desyrel) 100 mg QPM PO 11/18/20 21:00 11/24/20 01:45 DC 11/23/20 21:16 Trazodone HCl (Desyrel) 100 mg QPM PO 11/24/20 21:00 12/09/20 21:03 Vitamin D (Vitamin D) 400 units DAILY PO 11/19/20 09:00 11/24/20 01:45 DC 11/23/20 08:00 Vitamin D (Vitamin D) 400 units DAILY PO 11/24/20 09:00 12/10/20 08:24 Allergies Coded Allergies: Penicillins (Verified Allergy, Intermediate, rash, 01/02/19) latex (Verified Allergy, Intermediate, rash, 12/13/19) divalproex sodium (Verified Allergy, Unknown, 01/02/19) AYESHA MOLINA MD Dec 10, 2020 16:49
[2020-12-10 18:19] VITALS: BP 150/80
[2020-12-10] MEDS: MONTELUKAST 10 MG TAB PO SCH (21:17)
[2020-12-10] MEDS: ATORVASTATIN 20 MG TAB PO SCH (21:17)
[2020-12-10] MEDS: CYCLOBENZAPRINE 10MG TABLET PO SCH (21:17)
[2020-12-10] MEDS: traZODone 100 MG TAB PO SCH (21:45)
[2020-12-10] MEDS: QUEtiapine FUMARATE 100 MG TAB PO SCH (21:45)
[2020-12-11] MEDS: ACETAMINOPHEN TAB 650MG DOSE (2X325MG) PO PRN (05:17)
[2020-12-11] MEDS: LEVOTHYROXINE 100MCG TABLET (0.1MG) PO SCH (05:45)
[2020-12-11 06:59] VITALS: BP 126/77
[2020-12-11] MEDS: FLUTICASONE PROP 0.05% NASAL SPRAY 16 GM (FLONASE) NARES SCH (08:20)
[2020-12-11] MEDS: oxyBUTYnin 5 MG TAB PO SCH (08:21)
[2020-12-11] MEDS: VITAMIN D (CHOLECALCIFEROL) 400 INTERNATIONAL UNITS TAB PO SCH (08:21)
[2020-12-11] MEDS: metFORMIN (GLUCOPHAGE) 1000 MG TABLET PO SCH ×2 (08:21→17:26)
[2020-12-11] MEDS: TAMSULOSIN 0.4 MG CAP PO SCH (08:21)
[2020-12-11] MEDS: OMEGA-3 1000MG CAPSULE PO SCH (08:21)
[2020-12-11] MEDS: atenoloL 25 MG TAB PO SCH ×2 (08:22→21:02)
[2020-12-11] MEDS: lamoTRIgine 100MG TAB PO SCH (08:22)
[2020-12-11] MEDS: ASPIRIN 81MG ENTERIC TABLET PO SCH (08:23)
[2020-12-11] MEDS: BENZTROPINE 1 MG TAB PO SCH ×2 (08:23→20:58)
[2020-12-11] MEDS: OMEPRAZOLE 20 MG CAP PO SCH (08:23)
[2020-12-11] MEDS: DOCUSATE SODIUM 100MG CAPSULE PO SCH ×2 (08:23→20:57)
--- NOTE | 2020-12-11 09:00 | MHIPNPDOC ---
[facility] Progress Note Progress Note DATE OF SERVICE: 12/11/20 HISTORY: Patient a 50 y/o man with a past history of bipolar disorder and numerous admissions since his 20's. Was d/c from [facility] [place] Jan 2010 and living in [facility] since. Was admitted on this occasion due to disorganized and paranoid behavior. Currently remains in contact isolation due to possible exposure previous treatment nursing staff. Interval: Patient was seen eating breakfast, states he has some R foot pain and requests motrin, which was ordered, no allergy per chart review or endorsed. Continues to be concrete, no longer appears elevated, more depressed and sullen. VITAL SIGNS: See below. NEW TEST RESULTS: None. CURRENT MEDICATIONS: See below. MENTAL STATUS EXAMINATION: Patient is a 50-year old male, who is seen by his room, mask and glasses, no acute distress, elevated, BMI, somewhat improved hygiene Speech: spontaneous, normal rate Language skills are poor. Thought processes including: Remains disorganized and sexually preoccupied Thought content: Denies Suicidal thoughts, intent or plan. Abstract reasoning, and computation: unable to fully assess. Description of associations: concrete Description of abnormal or psychotic thoughts: AH, grandiose and bizarre delusions Judgment: poor Insight: poor Orientation: to place only Recent and remote memory: poor Attention span and concentration: Poor, distractible Language: disorganized Fund of knowledge: unable to fully assess Mood: "alright" Affect: dysthymic, continues to be stable, flat, non-aggressive DIAGNOSES: 1. Bipolar disorder, mixed episode per hx 2. R/O schizoaffective disorder, bipolar type ASSESSMENT: Continues to be grossly psychotic, with no aggression, more depressed state on interview, pending [facility] placement. MANAGEMENT PLAN: Was discussed in treatment team. Continue regimen to further stabilize psychotic and hypomanic symptoms. Continue omega 3s for low HDL. Motrin for foot pain, able to ambulate w/o difficulty, does not appear to be spasm from EPS. TIME SPENT: 15 minutes. Vital Signs Vital Signs Date Time Temp Pulse Resp B/P (MAP) Pulse Ox O2 Delivery O2 Flow Rate FiO2 12/11/20 08:22 75 126/77 12/11/20 06:59 96.0 16 96 Room Air Current Medications Current Medications Medications (Trade) Dose Ordered Sig/Kailey Route PRN Reason Start Time Stop Time Status Last Admin Dose Admin Acetaminophen (Tylenol Tab) 650 mg Q6HP PRN PO MILD PAIN or TEMP > 101 12/01/20 16:05 12/11/20 05:17 Acetaminophen (Tylenol Tab) 650 mg Q6HP PRN PO HEADACHE or MILD DISCOMFORT 11/18/20 12:40 11/24/20 01:45 DC 11/23/20 03:09 Al Hydrox/Mg Hydrox/Simethicone (Mylanta) 30 ml Q4HP PRN PO HEARTBURN/INDIGESTION 11/18/20 12:40 11/24/20 01:45 DC 11/23/20 22:34 Amlodipine Besylate (Norvasc) 10 mg DAILY PO 11/19/20 09:00 11/22/20 08:55 DC 11/22/20 08:20 Aspirin (Ecotrin) 81 mg DAILY PO 11/24/20 09:00 12/11/20 08:23 Aspirin (Ecotrin) 81 mg QAM PO 11/22/20 09:00 11/24/20 01:45 DC 11/23/20 07:58 Atenolol (Tenormin) 25 mg BID PO 11/22/20 09:00 11/22/20 12:53 DC 11/22/20 09:51 Atenolol (Tenormin) 25 mg BID PO 11/24/20 09:00 12/11/20 08:22 Atenolol (Tenormin) 50 mg BID PO 11/22/20 21:00 11/24/20 00:13 DC 11/23/20 21:16 Atorvastatin Calcium (Lipitor) 40 mg QHS PO 11/18/20 21:00 11/24/20 01:45 DC 11/23/20 21:16 Atorvastatin Calcium (Lipitor) 40 mg QHS PO 11/24/20 21:00 12/10/20 21:17 Benztropine Mesylate (Cogentin) 1 mg BID PO 11/18/20 09:00 11/24/20 01:45 DC 11/23/20 21:15 Benztropine Mesylate (Cogentin) 1 mg BID PO 11/24/20 09:00 12/11/20 08:23 Cyclobenzaprine HCl (Flexeril) 10 mg QHS PO 11/20/20 21:00 11/24/20 01:45 DC 11/23/20 21:16 Cyclobenzaprine HCl (Flexeril) 10 mg QHS PO 11/24/20 21:00 12/10/20 21:17 Diphenhydramine HCl (Benadryl) 50 mg Q8HP PRN PO AGITATION 11/19/20 09:10 11/24/20 01:45 DC 11/23/20 17:51 Diphenhydramine HCl (Benadryl) 50 mg Q8HP PRN PO AGITATION 11/24/20 10:55 12/10/20 12:58 Diphenhydramine HCl (Benadryl) 50 mg STAT STAT IM 11/26/20 02:41 11/26/20 02:44 DC 11/26/20 02:53 Diphenhydramine HCl (Benadryl) 50 mg STAT STAT PO 11/19/20 06:48 11/19/20 06:50 DC 11/19/20 07:06 Docusate Sodium (Colace) 100 mg BID PO 11/18/20 21:00 11/24/20 01:45 DC 11/23/20 21:15 Docusate Sodium (Colace) 100 mg BID PO 11/24/20 09:00 12/11/20 08:23 Fish Oil ([place]-3 (1000mg)) 1 cap DAILY PO 12/06/20 09:00 12/11/20 08:21 Fluticasone Propionate (Flonase 0.05% Nasal [place]) 2 spray DAILY NARES 11/19/20 09:00 11/24/20 01:45 DC 11/23/20 08:01 Fluticasone Propionate (Flonase 0.05% Nasal [place]) 2 spray DAILY NARES 11/24/20 09:00 12/11/20 08:20 Haloperidol (Haldol) 10 mg Q8HP PRN PO AGITATION 11/19/20 09:10 11/24/20 01:45 DC 11/23/20 23:21 Haloperidol (Haldol) 10 mg Q8HP PRN PO AGITATION 11/24/20 10:55 12/10/20 12:58 Haloperidol (Haldol) 10 mg QHS PO 11/19/20 21:00 11/19/20 09:48 DC Haloperidol (Haldol) 10 mg QHS PO 11/19/20 21:00 11/24/20 01:45 DC 11/23/20 21:16 Haloperidol (Haldol) 10 mg QHS PO 11/24/20 21:00 12/10/20 21:45 Haloperidol (Haldol) 10 mg STAT STAT IM 11/26/20 02:41 11/26/20 02:44 DC 11/26/20 02:52 Haloperidol (Haldol) 10 mg STAT STAT PO 11/19/20 06:48 11/19/20 06:50 DC 11/19/20 07:06 Haloperidol Decanoate (Haldol Decanoate) 100 mg Q28D IM 11/28/20 12:00 11/28/20 13:26 Home Med (Med Rec Complete!) ASDIRECTED XX 11/17/20 23:25 11/17/20 23:24 DC Lamotrigine (LaMICtal) 200 mg DAILY PO 11/18/20 09:00 11/24/20 01:45 DC 11/23/20 08:00 Lamotrigine (LaMICtal) 200 mg DAILY PO 11/24/20 09:00 12/11/20 08:22 Levothyroxine Sodium (Synthroid) 100 mcg DAILY@06 PO 11/24/20 06:00 12/11/20 05:45 Levothyroxine Sodium (Synthroid) 100 mcg DAILY@0600 PO 11/19/20 06:00 11/24/20 01:45 DC 11/23/20 05:05 Lorazepam (Ativan) 2 mg Q8HP PRN PO ANXIETY/AGITATION 12/02/20 12:05 12/10/20 12:59 Lorazepam (Ativan) 2 mg Q8HP PRN PO AGITATION 11/19/20 09:10 11/24/20 01:45 DC 11/23/20 23:21 Lorazepam (Ativan) 2 mg Q8HP PRN PO AGITATION 11/24/20 10:55 12/01/20 10:54 DC 11/30/20 22:04 Lorazepam (Ativan) 2 mg STAT STAT IM 11/26/20 02:41 11/26/20 02:44 DC 11/26/20 02:53 Lorazepam (Ativan) 2 mg STAT STAT PO 11/19/20 06:48 11/19/20 06:50 DC 11/19/20 07:06 Losartan Potassium (Cozaar) 50 mg DAILY PO 11/19/20 09:00 11/22/20 08:55 DC 11/22/20 08:20 Magnesium Hydroxide (Milk Of Magnesia) 30 ml DAILYPRN PRN PO CONSTIPATION 11/18/20 12:40 11/24/20 01:45 DC Magnesium Hydroxide (Milk Of Magnesia) 30 ml DAILYPRN PRN PO CONSTIPATION 11/24/20 10:55 Metformin HCl (Glucophage) 1,000 mg BID@08,18 PO 11/24/20 08:00 12/11/20 08:21 Metformin HCl (Glucophage) 1,000 mg BID@0800,1800 PO 11/18/20 18:00 11/24/20 01:45 DC 11/23/20 17:34 Miscellaneous (Unresolved Clarification Entry) SEE LABEL COMMENTS DAILY XX 11/30/20 09:00 12/02/20 09:53 DC Miscellaneous (Unresolved Clarification Entry) SEE LABEL COMMENTS DAILY XX 12/02/20 09:00 12/02/20 12:12 DC Montelukast Sodium (Singulair) 10 mg QHS PO 11/18/20 21:00 11/24/20 01:45 DC 11/23/20 21:15 Montelukast Sodium (Singulair) 10 mg QHS PO 11/24/20 21:00 12/10/20 21:17 Omeprazole (PriLOSEC) 20 mg DAILY PO 12/11/20 09:00 12/11/20 08:23 Oxybutynin Chloride (Ditropan) 5 mg DAILY PO 11/19/20 09:00 11/24/20 01:45 DC 11/23/20 08:00 Oxybutynin Chloride (Ditropan) 5 mg DAILY PO 11/24/20 09:00 12/11/20 08:21 Propranolol HCl (Inderal) 10 mg BID PO 11/18/20 21:00 11/22/20 08:55 DC 11/22/20 08:20 Quetiapine Fumarate (SEROquel) 200 mg QHS PO 11/19/20 21:00 11/24/20 01:45 DC 11/23/20 21:15 Quetiapine Fumarate (SEROquel) 200 mg QHS PO 11/24/20 21:00 12/04/20 08:57 DC 12/03/20 20:20 Quetiapine Fumarate (SEROquel) 300 mg QHS PO 12/04/20 21:00 12/10/20 21:45 Tamsulosin HCl (Flomax) 0.8 mg DAILY PO 11/19/20 09:00 11/24/20 01:45 DC 11/23/20 08:01 Tamsulosin HCl (Flomax) 0.8 mg DAILY PO 11/24/20 09:00 12/11/20 08:21 Trazodone HCl (Desyrel) 100 mg QPM PO 11/18/20 21:00 11/24/20 01:45 DC 11/23/20 21:16 Trazodone HCl (Desyrel) 100 mg QPM PO 11/24/20 21:00 12/10/20 21:45 Vitamin D (Vitamin D) 400 units DAILY PO 11/19/20 09:00 11/24/20 01:45 DC 11/23/20 08:00 Vitamin D (Vitamin D) 400 units DAILY PO 11/24/20 09:00 12/11/20 08:21 Allergies Coded Allergies: Penicillins (Verified Allergy, Intermediate, rash, 01/02/19) latex (Verified Allergy, Intermediate, rash, 12/13/19) divalproex sodium (Verified Allergy, Unknown, 01/02/19) AYESHA MOLINA MD Dec 11, 2020 09:00
[2020-12-11] MEDS: IBUPROFEN 800 MG TAB PO SCH ×2 (13:00→22:06)
[2020-12-11 18:03] VITALS: BP 156/90
[2020-12-11] MEDS: haloperidoL 5 MG TAB PO SCH (20:57)
[2020-12-11] MEDS: ATORVASTATIN 20 MG TAB PO SCH (20:57)
[2020-12-11] MEDS: traZODone 100 MG TAB PO SCH (20:57)
[2020-12-11] MEDS: MONTELUKAST 10 MG TAB PO SCH (20:58)
[2020-12-11] MEDS: CYCLOBENZAPRINE 10MG TABLET PO SCH (20:58)
[2020-12-11] MEDS: QUEtiapine FUMARATE 100 MG TAB PO SCH (20:58)
[2020-12-12] MEDS: LEVOTHYROXINE 100MCG TABLET (0.1MG) PO SCH (06:18)
[2020-12-12] MEDS: IBUPROFEN 800 MG TAB PO SCH ×3 (06:18→21:25)
[2020-12-12 06:39] VITALS: BP 168/88
[2020-12-12] MEDS: lamoTRIgine 100MG TAB PO SCH (08:58)
[2020-12-12] MEDS: FLUTICASONE PROP 0.05% NASAL SPRAY 16 GM (FLONASE) NARES SCH (08:58)
[2020-12-12] MEDS: ASPIRIN 81MG ENTERIC TABLET PO SCH (08:58)
[2020-12-12] MEDS: BENZTROPINE 1 MG TAB PO SCH ×2 (08:59→20:04)
[2020-12-12] MEDS: VITAMIN D (CHOLECALCIFEROL) 400 INTERNATIONAL UNITS TAB PO SCH (08:59)
[2020-12-12] MEDS: oxyBUTYnin 5 MG TAB PO SCH (08:59)
[2020-12-12] MEDS: TAMSULOSIN 0.4 MG CAP PO SCH (08:59)
[2020-12-12] MEDS: DOCUSATE SODIUM 100MG CAPSULE PO SCH ×2 (08:59→20:04)
[2020-12-12] MEDS: OMEPRAZOLE 20 MG CAP PO SCH (08:59)
[2020-12-12] MEDS: metFORMIN (GLUCOPHAGE) 1000 MG TABLET PO SCH ×2 (08:59→17:18)
[2020-12-12] MEDS: atenoloL 25 MG TAB PO SCH ×2 (09:02→20:04)
[2020-12-12] MEDS: OMEGA-3 1000MG CAPSULE PO SCH (09:05)
--- NOTE | 2020-12-12 11:12 | MHIPNPDOC ---
[facility] Progress Note Progress Note DATE OF SERVICE: 12/12/20 HISTORY: Patient a 50 y/o man with a past history of bipolar disorder and numerous admissions since his 20's. Was d[place] [facility] [place] and living in [facility] since. Was admitted on this occasion due to disorganized and paranoid behavior. Currently remains in contact isolation due to possible exposure previous treatment nursing staff. Interval: Patient continues to be grossly psychotic, pending placement, concrete, gave redirection regarding inappropriate comments and behavior in social milieu. No agitation or acute physical complaints. Has PRNs for agitation. VITAL SIGNS: See below. NEW TEST RESULTS: None. CURRENT MEDICATIONS: See below. MENTAL STATUS EXAMINATION: Patient is a 50-year old male, who is seen by his room, mask and glasses, no acute distress, elevated, BMI, somewhat improved hygiene Speech: spontaneous, normal rate Language skills are poor. Thought processes including: Remains disorganized and sexually preoccupied Thought content: Denies Suicidal thoughts, intent or plan. Abstract reasoning, and computation: unable to fully assess. Description of associations: concrete Description of abnormal or psychotic thoughts: AH, grandiose and bizarre delusions Judgment: poor Insight: poor Orientation: to place only Recent and remote memory: poor Attention span and concentration: Poor, distractible Language: disorganized Fund of knowledge: unable to fully assess Mood: "okay" Affect: grossly psychotic, continues to be stable, flat, non- aggressive DIAGNOSES: 1. Bipolar disorder, mixed episode per hx 2. R/O schizoaffective disorder, bipolar type ASSESSMENT: Continues to be grossly psychotic, with no aggression, more depressed state on interview, pending [facility] placement. MANAGEMENT PLAN: Was discussed in treatment team. Continue regimen to further stabilize psychotic and hypomanic symptoms. TIME SPENT: 15 minutes. Vital Signs Vital Signs Date Time Temp Pulse Resp B/P (MAP) Pulse Ox O2 Delivery O2 Flow Rate FiO2 12/12/20 09:02 76 131/80 12/12/20 06:39 97.0 18 96 Room Air Current Medications Current Medications Medications (Trade) Dose Ordered Sig/Kailey Route PRN Reason Start Time Stop Time Status Last Admin Dose Admin Acetaminophen (Tylenol Tab) 650 mg Q6HP PRN PO MILD PAIN or TEMP > 101 12/01/20 16:05 12/11/20 05:17 Acetaminophen (Tylenol Tab) 650 mg Q6HP PRN PO HEADACHE or MILD DISCOMFORT 11/18/20 12:40 11/24/20 01:45 DC 11/23/20 03:09 Al Hydrox/Mg Hydrox/Simethicone (Mylanta) 30 ml Q4HP PRN PO HEARTBURN/INDIGESTION 11/18/20 12:40 11/24/20 01:45 DC 11/23/20 22:34 Amlodipine Besylate (Norvasc) 10 mg DAILY PO 11/19/20 09:00 11/22/20 08:55 DC 11/22/20 08:20 Aspirin (Ecotrin) 81 mg DAILY PO 11/24/20 09:00 12/12/20 08:58 Aspirin (Ecotrin) 81 mg QAM PO 11/22/20 09:00 11/24/20 01:45 DC 11/23/20 07:58 Atenolol (Tenormin) 25 mg BID PO 11/22/20 09:00 11/22/20 12:53 DC 11/22/20 09:51 Atenolol (Tenormin) 25 mg BID PO 11/24/20 09:00 12/12/20 09:02 Atenolol (Tenormin) 50 mg BID PO 11/22/20 21:00 11/24/20 00:13 DC 11/23/20 21:16 Atorvastatin Calcium (Lipitor) 40 mg QHS PO 11/18/20 21:00 11/24/20 01:45 DC 11/23/20 21:16 Atorvastatin Calcium (Lipitor) 40 mg QHS PO 11/24/20 21:00 12/11/20 20:57 Benztropine Mesylate (Cogentin) 1 mg BID PO 11/18/20 09:00 11/24/20 01:45 DC 11/23/20 21:15 Benztropine Mesylate (Cogentin) 1 mg BID PO 11/24/20 09:00 12/12/20 08:59 Cyclobenzaprine HCl (Flexeril) 10 mg QHS PO 11/20/20 21:00 11/24/20 01:45 DC 11/23/20 21:16 Cyclobenzaprine HCl (Flexeril) 10 mg QHS PO 11/24/20 21:00 12/11/20 20:58 Diphenhydramine HCl (Benadryl) 50 mg Q8HP PRN PO AGITATION 11/19/20 09:10 11/24/20 01:45 DC 11/23/20 17:51 Diphenhydramine HCl (Benadryl) 50 mg Q8HP PRN PO AGITATION 11/24/20 10:55 12/10/20 12:58 Diphenhydramine HCl (Benadryl) 50 mg STAT STAT IM 11/26/20 02:41 11/26/20 02:44 DC 11/26/20 02:53 Diphenhydramine HCl (Benadryl) 50 mg STAT STAT PO 11/19/20 06:48 11/19/20 06:50 DC 11/19/20 07:06 Docusate Sodium (Colace) 100 mg BID PO 11/18/20 21:00 11/24/20 01:45 DC 11/23/20 21:15 Docusate Sodium (Colace) 100 mg BID PO 11/24/20 09:00 12/12/20 08:59 Fish Oil ([place]-3 (1000mg)) 1 cap DAILY PO 12/06/20 09:00 12/12/20 09:05 Fluticasone Propionate (Flonase 0.05% Nasal [place]) 2 spray DAILY NARES 11/19/20 09:00 11/24/20 01:45 DC 11/23/20 08:01 Fluticasone Propionate (Flonase 0.05% Nasal [place]) 2 spray DAILY NARES 11/24/20 09:00 12/12/20 08:58 Haloperidol (Haldol) 10 mg Q8HP PRN PO AGITATION 11/19/20 09:10 11/24/20 01:45 DC 11/23/20 23:21 Haloperidol (Haldol) 10 mg Q8HP PRN PO AGITATION 11/24/20 10:55 12/10/20 12:58 Haloperidol (Haldol) 10 mg QHS PO 11/19/20 21:00 11/19/20 09:48 DC Haloperidol (Haldol) 10 mg QHS PO 11/19/20 21:00 11/24/20 01:45 DC 11/23/20 21:16 Haloperidol (Haldol) 10 mg QHS PO 11/24/20 21:00 12/11/20 10:47 DC 12/10/20 21:45 Haloperidol (Haldol) 10 mg STAT STAT IM 11/26/20 02:41 11/26/20 02:44 DC 11/26/20 02:52 Haloperidol (Haldol) 10 mg STAT STAT PO 11/19/20 06:48 11/19/20 06:50 DC 11/19/20 07:06 Haloperidol (Haldol) 15 mg QHS PO 12/11/20 21:00 12/11/20 20:57 Haloperidol Decanoate (Haldol Decanoate) 100 mg Q28D IM 11/28/20 12:00 11/28/20 13:26 Home Med (Med Rec Complete!) ASDIRECTED XX 11/17/20 23:25 11/17/20 23:24 DC Ibuprofen (Advil) 800 mg Q8H PO 12/11/20 14:00 12/12/20 06:18 Lamotrigine (LaMICtal) 200 mg DAILY PO 11/18/20 09:00 11/24/20 01:45 DC 11/23/20 08:00 Lamotrigine (LaMICtal) 200 mg DAILY PO 11/24/20 09:00 12/12/20 08:58 Levothyroxine Sodium (Synthroid) 100 mcg DAILY@06 PO 11/24/20 06:00 12/12/20 06:18 Levothyroxine Sodium (Synthroid) 100 mcg DAILY@0600 PO 11/19/20 06:00 11/24/20 01:45 DC 11/23/20 05:05 Lorazepam (Ativan) 2 mg Q8HP PRN PO ANXIETY/AGITATION 12/02/20 12:05 12/10/20 12:59 Lorazepam (Ativan) 2 mg Q8HP PRN PO AGITATION 11/19/20 09:10 11/24/20 01:45 DC 11/23/20 23:21 Lorazepam (Ativan) 2 mg Q8HP PRN PO AGITATION 11/24/20 10:55 12/01/20 10:54 DC 11/30/20 22:04 Lorazepam (Ativan) 2 mg STAT STAT IM 11/26/20 02:41 11/26/20 02:44 DC 11/26/20 02:53 Lorazepam (Ativan) 2 mg STAT STAT PO 11/19/20 06:48 11/19/20 06:50 DC 11/19/20 07:06 Losartan Potassium (Cozaar) 50 mg DAILY PO 11/19/20 09:00 11/22/20 08:55 DC 11/22/20 08:20 Magnesium Hydroxide (Milk Of Magnesia) 30 ml DAILYPRN PRN PO CONSTIPATION 11/18/20 12:40 11/24/20 01:45 DC Magnesium Hydroxide (Milk Of Magnesia) 30 ml DAILYPRN PRN PO CONSTIPATION 11/24/20 10:55 Metformin HCl (Glucophage) 1,000 mg BID@08,18 PO 11/24/20 08:00 12/12/20 08:59 Metformin HCl (Glucophage) 1,000 mg BID@0800,1800 PO 11/18/20 18:00 11/24/20 01:45 DC 11/23/20 17:34 Miscellaneous (Unresolved Clarification Entry) SEE LABEL COMMENTS DAILY XX 11/30/20 09:00 12/02/20 09:53 DC Miscellaneous (Unresolved Clarification Entry) SEE LABEL COMMENTS DAILY XX 12/02/20 09:00 12/02/20 12:12 DC Montelukast Sodium (Singulair) 10 mg QHS PO 11/18/20 21:00 11/24/20 01:45 DC 11/23/20 21:15 Montelukast Sodium (Singulair) 10 mg QHS PO 11/24/20 21:00 12/11/20 20:58 Omeprazole (PriLOSEC) 20 mg DAILY PO 12/11/20 09:00 12/12/20 08:59 Oxybutynin Chloride (Ditropan) 5 mg DAILY PO 11/19/20 09:00 11/24/20 01:45 DC 11/23/20 08:00 Oxybutynin Chloride (Ditropan) 5 mg DAILY PO 11/24/20 09:00 12/12/20 08:59 Propranolol HCl (Inderal) 10 mg BID PO 11/18/20 21:00 11/22/20 08:55 DC 11/22/20 08:20 Quetiapine Fumarate (SEROquel) 200 mg QHS PO 11/19/20 21:00 11/24/20 01:45 DC 11/23/20 21:15 Quetiapine Fumarate (SEROquel) 200 mg QHS PO 11/24/20 21:00 12/04/20 08:57 DC 12/03/20 20:20 Quetiapine Fumarate (SEROquel) 300 mg QHS PO 12/04/20 21:00 12/11/20 20:58 Tamsulosin HCl (Flomax) 0.8 mg DAILY PO 11/19/20 09:00 11/24/20 01:45 DC 11/23/20 08:01 Tamsulosin HCl (Flomax) 0.8 mg DAILY PO 11/24/20 09:00 12/12/20 08:59 Trazodone HCl (Desyrel) 100 mg QPM PO 11/18/20 21:00 11/24/20 01:45 DC 11/23/20 21:16 Trazodone HCl (Desyrel) 100 mg QPM PO 11/24/20 21:00 12/11/20 20:57 Vitamin D (Vitamin D) 400 units DAILY PO 11/19/20 09:00 11/24/20 01:45 DC 11/23/20 08:00 Vitamin D (Vitamin D) 400 units DAILY PO 11/24/20 09:00 12/12/20 08:59 Allergies Coded Allergies: Penicillins (Verified Allergy, Intermediate, rash, 01/02/19) latex (Verified Allergy, Intermediate, rash, 12/13/19) divalproex sodium (Verified Allergy, Unknown, 01/02/19) AYESHA MOLINA MD Dec 12, 2020 11:12
[2020-12-12 17:10] VITALS: BP 140/90
[2020-12-12] MEDS: ATORVASTATIN 20 MG TAB PO SCH (20:04)
[2020-12-12] MEDS: QUEtiapine FUMARATE 100 MG TAB PO SCH (20:04)
[2020-12-12] MEDS: traZODone 100 MG TAB PO SCH (20:04)
[2020-12-12] MEDS: CYCLOBENZAPRINE 10MG TABLET PO SCH (20:04)
[2020-12-12] MEDS: MONTELUKAST 10 MG TAB PO SCH (20:04)
[2020-12-12] MEDS: haloperidoL 5 MG TAB PO SCH (20:04)
[2020-12-12] MEDS: LORazepam 2 MG TAB PO PRN (20:04)
[2020-12-13 05:32] VITALS: BP 158/98
[2020-12-13] MEDS: LEVOTHYROXINE 100MCG TABLET (0.1MG) PO SCH (05:45)
[2020-12-13] MEDS: IBUPROFEN 800 MG TAB PO SCH ×4 (05:45→21:11)
[2020-12-13] MEDS: LORazepam 2 MG TAB PO PRN (06:56)
[2020-12-13] MEDS: FLUTICASONE PROP 0.05% NASAL SPRAY 16 GM (FLONASE) NARES SCH (08:10)
[2020-12-13] MEDS: OMEGA-3 1000MG CAPSULE PO SCH (08:11)
[2020-12-13] MEDS: VITAMIN D (CHOLECALCIFEROL) 400 INTERNATIONAL UNITS TAB PO SCH (08:11)
[2020-12-13] MEDS: oxyBUTYnin 5 MG TAB PO SCH (08:11)
[2020-12-13] MEDS: TAMSULOSIN 0.4 MG CAP PO SCH (08:12)
[2020-12-13] MEDS: atenoloL 25 MG TAB PO SCH ×2 (08:12→20:08)
[2020-12-13] MEDS: metFORMIN (GLUCOPHAGE) 1000 MG TABLET PO SCH ×2 (08:12→17:26)
[2020-12-13] MEDS: lamoTRIgine 100MG TAB PO SCH (08:13)
[2020-12-13] MEDS: BENZTROPINE 1 MG TAB PO SCH ×2 (08:13→20:07)
[2020-12-13] MEDS: ASPIRIN 81MG ENTERIC TABLET PO SCH (08:13)
[2020-12-13] MEDS: OMEPRAZOLE 20 MG CAP PO SCH (08:13)
[2020-12-13] MEDS: DOCUSATE SODIUM 100MG CAPSULE PO SCH ×2 (08:13→20:07)
--- NOTE | 2020-12-13 14:14 | MHIPNPDOC ---
[facility] Progress Note Progress Note DATE OF SERVICE: 12/13/20 HISTORY: Patient a 50 y/o man with a past history of bipolar disorder and numerous admissions since his 20's. Was d/c from [facility] Jan 2010 and living in [facility] since. Was admitted on this occasion due to disorganized and paranoid behavior. Currently remains in contact isolation due to possible exposure previous treatment nursing staff. Interval: Refugio was seen in the social milieu and in his room privately. Continues to be disorganized without agitation or acute physical complaints. Has PRNs for agitation. States that he continues to hear voices which are pleasant, but does not elaborate, reports he understands he will be going to [facility] and that there he can work on gardening, because they have a large atrium. Otherwise reports tolerating medications well without side effects. Again was redirected with regards to making inappropriate comments and having any appropriate behavior on the unit with nursing staff. VITAL SIGNS: See below. NEW TEST RESULTS: None. CURRENT MEDICATIONS: See below. MENTAL STATUS EXAMINATION: Patient is a 50-year old male, who is seen by his room, mask and glasses, no acute distress, elevated, BMI, somewhat improved hygiene Speech: spontaneous, normal rate Language skills are poor. Thought processes including: Remains disorganized and sexually preoccupied Thought content: Denies Suicidal thoughts, intent or plan. Abstract reasoning, and computation: unable to fully assess. Description of associations: concrete Description of abnormal or psychotic thoughts: AH, grandiose and bizarre delusions Judgment: poor Insight: poor Orientation: to place only Recent and remote memory: poor Attention span and concentration: Poor, distractible Language: disorganized Fund of knowledge: unable to fully assess Mood: "good" Affect: No change, continues to be grossly psychotic, continues to be stable, flat, with periods of elevated mood, non-aggressive DIAGNOSES: 1. Bipolar disorder, mixed episode per hx 2. R/O schizoaffective disorder, bipolar type ASSESSMENT: Continues to be psychotic with reported pleasant auditory trip lucinations, pending [facility] placement. MANAGEMENT PLAN: Was discussed in treatment team. Continue regimen to further stabilize psychotic and hypomanic symptoms. Continue coordination with social work for disposition to [facility]. TIME SPENT: 15 minutes. Vital Signs Vital Signs Date Time Temp Pulse Resp B/P (MAP) Pulse Ox O2 Delivery O2 Flow Rate FiO2 12/13/20 08:12 84 158/98 12/13/20 05:32 97.2 18 95 Room Air Current Medications Current Medications Medications (Trade) Dose Ordered Sig/Kailey Route PRN Reason Start Time Stop Time Status Last Admin Dose Admin Acetaminophen (Tylenol Tab) 650 mg Q6HP PRN PO MILD PAIN or TEMP > 101 12/01/20 16:05 12/11/20 05:17 Acetaminophen (Tylenol Tab) 650 mg Q6HP PRN PO HEADACHE or MILD DISCOMFORT 11/18/20 12:40 11/24/20 01:45 DC 11/23/20 03:09 Al Hydrox/Mg Hydrox/Simethicone (Mylanta) 30 ml Q4HP PRN PO HEARTBURN/INDIGESTION 11/18/20 12:40 11/24/20 01:45 DC 11/23/20 22:34 Amlodipine Besylate (Norvasc) 10 mg DAILY PO 11/19/20 09:00 11/22/20 08:55 DC 11/22/20 08:20 Aspirin (Ecotrin) 81 mg DAILY PO 11/24/20 09:00 12/13/20 08:13 Aspirin (Ecotrin) 81 mg QAM PO 11/22/20 09:00 11/24/20 01:45 DC 11/23/20 07:58 Atenolol (Tenormin) 25 mg BID PO 11/22/20 09:00 11/22/20 12:53 DC 11/22/20 09:51 Atenolol (Tenormin) 25 mg BID PO 11/24/20 09:00 12/13/20 08:12 Atenolol (Tenormin) 50 mg BID PO 11/22/20 21:00 11/24/20 00:13 DC 11/23/20 21:16 Atorvastatin Calcium (Lipitor) 40 mg QHS PO 11/18/20 21:00 11/24/20 01:45 DC 11/23/20 21:16 Atorvastatin Calcium (Lipitor) 40 mg QHS PO 11/24/20 21:00 12/12/20 20:04 Benztropine Mesylate (Cogentin) 1 mg BID PO 11/18/20 09:00 11/24/20 01:45 DC 11/23/20 21:15 Benztropine Mesylate (Cogentin) 1 mg BID PO 11/24/20 09:00 12/13/20 08:13 Cyclobenzaprine HCl (Flexeril) 10 mg QHS PO 11/20/20 21:00 11/24/20 01:45 DC 11/23/20 21:16 Cyclobenzaprine HCl (Flexeril) 10 mg QHS PO 11/24/20 21:00 12/12/20 20:04 Diphenhydramine HCl (Benadryl) 50 mg Q8HP PRN PO AGITATION 11/19/20 09:10 11/24/20 01:45 DC 11/23/20 17:51 Diphenhydramine HCl (Benadryl) 50 mg Q8HP PRN PO AGITATION 11/24/20 10:55 12/10/20 12:58 Diphenhydramine HCl (Benadryl) 50 mg STAT STAT IM 11/26/20 02:41 11/26/20 02:44 DC 11/26/20 02:53 Diphenhydramine HCl (Benadryl) 50 mg STAT STAT PO 11/19/20 06:48 11/19/20 06:50 DC 11/19/20 07:06 Docusate Sodium (Colace) 100 mg BID PO 11/18/20 21:00 11/24/20 01:45 DC 11/23/20 21:15 Docusate Sodium (Colace) 100 mg BID PO 11/24/20 09:00 12/13/20 08:13 Fish Oil ([place]-3 (1000mg)) 1 cap DAILY PO 12/06/20 09:00 12/13/20 08:11 Fluticasone Propionate (Flonase 0.05% Nasal [place]) 2 spray DAILY NARES 11/19/20 09:00 11/24/20 01:45 DC 11/23/20 08:01 Fluticasone Propionate (Flonase 0.05% Nasal [place]) 2 spray DAILY NARES 11/24/20 09:00 12/13/20 08:10 Haloperidol (Haldol) 10 mg Q8HP PRN PO AGITATION 11/19/20 09:10 11/24/20 01:45 DC 11/23/20 23:21 Haloperidol (Haldol) 10 mg Q8HP PRN PO AGITATION 11/24/20 10:55 12/13/20 06:56 Haloperidol (Haldol) 10 mg QHS PO 11/19/20 21:00 11/19/20 09:48 DC Haloperidol (Haldol) 10 mg QHS PO 11/19/20 21:00 11/24/20 01:45 DC 11/23/20 21:16 Haloperidol (Haldol) 10 mg QHS PO 11/24/20 21:00 12/11/20 10:47 DC 12/10/20 21:45 Haloperidol (Haldol) 10 mg STAT STAT IM 11/26/20 02:41 11/26/20 02:44 DC 11/26/20 02:52 Haloperidol (Haldol) 10 mg STAT STAT PO 11/19/20 06:48 11/19/20 06:50 DC 11/19/20 07:06 Haloperidol (Haldol) 15 mg QHS PO 12/11/20 21:00 12/12/20 20:04 Haloperidol Decanoate (Haldol Decanoate) 100 mg Q28D IM 11/28/20 12:00 11/28/20 13:26 Home Med (Med Rec Complete!) ASDIRECTED XX 11/17/20 23:25 11/17/20 23:24 DC Ibuprofen (Advil) 800 mg Q8H PO 12/11/20 14:00 12/13/20 13:15 Lamotrigine (LaMICtal) 200 mg DAILY PO 11/18/20 09:00 11/24/20 01:45 DC 11/23/20 08:00 Lamotrigine (LaMICtal) 200 mg DAILY PO 11/24/20 09:00 12/13/20 08:13 Levothyroxine Sodium (Synthroid) 100 mcg DAILY@06 PO 11/24/20 06:00 12/13/20 05:45 Levothyroxine Sodium (Synthroid) 100 mcg DAILY@0600 PO 11/19/20 06:00 11/24/20 01:45 DC 11/23/20 05:05 Lorazepam (Ativan) 2 mg Q8HP PRN PO ANXIETY/AGITATION 12/02/20 12:05 12/13/20 06:56 Lorazepam (Ativan) 2 mg Q8HP PRN PO AGITATION 11/19/20 09:10 11/24/20 01:45 DC 11/23/20 23:21 Lorazepam (Ativan) 2 mg Q8HP PRN PO AGITATION 11/24/20 10:55 12/01/20 10:54 DC 11/30/20 22:04 Lorazepam (Ativan) 2 mg STAT STAT IM 11/26/20 02:41 11/26/20 02:44 DC 11/26/20 02:53 Lorazepam (Ativan) 2 mg STAT STAT PO 11/19/20 06:48 11/19/20 06:50 DC 11/19/20 07:06 Losartan Potassium (Cozaar) 50 mg DAILY PO 11/19/20 09:00 11/22/20 08:55 DC 11/22/20 08:20 Magnesium Hydroxide (Milk Of Magnesia) 30 ml DAILYPRN PRN PO CONSTIPATION 11/18/20 12:40 11/24/20 01:45 DC Magnesium Hydroxide (Milk Of Magnesia) 30 ml DAILYPRN PRN PO CONSTIPATION 11/24/20 10:55 Metformin HCl (Glucophage) 1,000 mg BID@08,18 PO 11/24/20 08:00 12/13/20 08:12 Metformin HCl (Glucophage) 1,000 mg BID@0800,1800 PO 11/18/20 18:00 11/24/20 01:45 DC 11/23/20 17:34 Miscellaneous (Unresolved Clarification Entry) SEE LABEL COMMENTS DAILY XX 11/30/20 09:00 12/02/20 09:53 DC Miscellaneous (Unresolved Clarification Entry) SEE LABEL COMMENTS DAILY XX 12/02/20 09:00 12/02/20 12:12 DC Miscellaneous (Unresolved Clarification Entry) SEE LABEL COMMENTS DAILY XX 12/13/20 09:00 Montelukast Sodium (Singulair) 10 mg QHS PO 11/18/20 21:00 11/24/20 01:45 DC 11/23/20 21:15 Montelukast Sodium (Singulair) 10 mg QHS PO 11/24/20 21:00 12/12/20 20:04 Omeprazole (PriLOSEC) 20 mg DAILY PO 12/11/20 09:00 12/13/20 08:13 Oxybutynin Chloride (Ditropan) 5 mg DAILY PO 11/19/20 09:00 11/24/20 01:45 DC 11/23/20 08:00 Oxybutynin Chloride (Ditropan) 5 mg DAILY PO 11/24/20 09:00 12/13/20 08:11 Propranolol HCl (Inderal) 10 mg BID PO 11/18/20 21:00 11/22/20 08:55 DC 11/22/20 08:20 Quetiapine Fumarate (SEROquel) 200 mg QHS PO 11/19/20 21:00 11/24/20 01:45 DC 11/23/20 21:15 Quetiapine Fumarate (SEROquel) 200 mg QHS PO 11/24/20 21:00 12/04/20 08:57 DC 12/03/20 20:20 Quetiapine Fumarate (SEROquel) 300 mg QHS PO 12/04/20 21:00 12/12/20 20:04 Tamsulosin HCl (Flomax) 0.8 mg DAILY PO 11/19/20 09:00 11/24/20 01:45 DC 11/23/20 08:01 Tamsulosin HCl (Flomax) 0.8 mg DAILY PO 11/24/20 09:00 12/13/20 08:12 Trazodone HCl (Desyrel) 100 mg QPM PO 11/18/20 21:00 11/24/20 01:45 DC 11/23/20 21:16 Trazodone HCl (Desyrel) 100 mg QPM PO 11/24/20 21:00 12/12/20 20:04 Vitamin D (Vitamin D) 400 units DAILY PO 11/19/20 09:00 11/24/20 01:45 DC 11/23/20 08:00 Vitamin D (Vitamin D) 400 units DAILY PO 11/24/20 09:00 12/13/20 08:11 Allergies Coded Allergies: Penicillins (Verified Allergy, Intermediate, rash, 01/02/19) latex (Verified Allergy, Intermediate, rash, 12/13/19) divalproex sodium (Verified Allergy, Unknown, 01/02/19) AYESHA MOLINA MD Dec 13, 2020 14:14
[2020-12-13 18:13] VITALS: BP 138/72
[2020-12-13] MEDS: CYCLOBENZAPRINE 10MG TABLET PO SCH (20:07)
[2020-12-13] MEDS: traZODone 100 MG TAB PO SCH (20:07)
[2020-12-13] MEDS: MONTELUKAST 10 MG TAB PO SCH (20:07)
[2020-12-13] MEDS: ATORVASTATIN 20 MG TAB PO SCH (20:08)
[2020-12-13] MEDS: QUEtiapine FUMARATE 100 MG TAB PO SCH (20:08)
[2020-12-13] MEDS: haloperidoL 5 MG TAB PO SCH (20:08)
[2020-12-14] MEDS: LEVOTHYROXINE 100MCG TABLET (0.1MG) PO SCH (05:48)
[2020-12-14] MEDS: IBUPROFEN 800 MG TAB PO SCH ×3 (05:49→20:37)
[2020-12-14 06:30] VITALS: BP 143/91
[2020-12-14] MEDS: metFORMIN (GLUCOPHAGE) 1000 MG TABLET PO SCH ×2 (07:43→17:12)
[2020-12-14] MEDS: oxyBUTYnin 5 MG TAB PO SCH (08:15)
[2020-12-14] MEDS: FLUTICASONE PROP 0.05% NASAL SPRAY 16 GM (FLONASE) NARES SCH (08:15)
[2020-12-14] MEDS: OMEGA-3 1000MG CAPSULE PO SCH (08:15)
[2020-12-14] MEDS: VITAMIN D (CHOLECALCIFEROL) 400 INTERNATIONAL UNITS TAB PO SCH (08:16)
[2020-12-14] MEDS: TAMSULOSIN 0.4 MG CAP PO SCH (08:17)
[2020-12-14] MEDS: atenoloL 25 MG TAB PO SCH ×2 (08:17→20:35)
[2020-12-14] MEDS: ASPIRIN 81MG ENTERIC TABLET PO SCH (08:18)
[2020-12-14] MEDS: lamoTRIgine 100MG TAB PO SCH (08:18)
[2020-12-14] MEDS: BENZTROPINE 1 MG TAB PO SCH ×2 (08:18→20:35)
[2020-12-14] MEDS: OMEPRAZOLE 20 MG CAP PO SCH (08:18)
[2020-12-14] MEDS: DOCUSATE SODIUM 100MG CAPSULE PO SCH ×2 (08:19→20:36)
[2020-12-14 16:15] VITALS: BP 150/86
[2020-12-14] MEDS: ACETAMINOPHEN TAB 650MG DOSE (2X325MG) PO PRN (16:46)
[2020-12-14] MEDS: CYCLOBENZAPRINE 10MG TABLET PO SCH (20:35)
[2020-12-14] MEDS: haloperidoL 5 MG TAB PO SCH (20:35)
[2020-12-14] MEDS: MONTELUKAST 10 MG TAB PO SCH (20:35)
[2020-12-14] MEDS: QUEtiapine FUMARATE 100 MG TAB PO SCH (20:35)
[2020-12-14] MEDS: ATORVASTATIN 20 MG TAB PO SCH (20:35)
[2020-12-14] MEDS: traZODone 100 MG TAB PO SCH (20:35)
[2020-12-15] MEDS: IBUPROFEN 800 MG TAB PO SCH ×3 (05:47→21:14)
[2020-12-15] MEDS: LEVOTHYROXINE 100MCG TABLET (0.1MG) PO SCH (05:47)
[2020-12-15 06:37] VITALS: BP 132/78
[2020-12-15] MEDS: metFORMIN (GLUCOPHAGE) 1000 MG TABLET PO SCH ×2 (07:35→17:17)
[2020-12-15] MEDS: FLUTICASONE PROP 0.05% NASAL SPRAY 16 GM (FLONASE) NARES SCH (09:09)
[2020-12-15] MEDS: OMEGA-3 1000MG CAPSULE PO SCH (09:09)
[2020-12-15] MEDS: VITAMIN D (CHOLECALCIFEROL) 400 INTERNATIONAL UNITS TAB PO SCH (09:10)
[2020-12-15] MEDS: oxyBUTYnin 5 MG TAB PO SCH (09:10)
[2020-12-15] MEDS: TAMSULOSIN 0.4 MG CAP PO SCH (09:10)
[2020-12-15] MEDS: lamoTRIgine 100MG TAB PO SCH (09:11)
[2020-12-15] MEDS: atenoloL 25 MG TAB PO SCH ×2 (09:11→21:13)
[2020-12-15] MEDS: BENZTROPINE 1 MG TAB PO SCH ×2 (09:11→21:04)
[2020-12-15] MEDS: DOCUSATE SODIUM 100MG CAPSULE PO SCH ×2 (09:12→21:04)
[2020-12-15] MEDS: OMEPRAZOLE 20 MG CAP PO SCH (09:12)
[2020-12-15] MEDS: ASPIRIN 81MG ENTERIC TABLET PO SCH (09:12)
[2020-12-15 18:58] VITALS: BP 148/90
[2020-12-15] MEDS: MONTELUKAST 10 MG TAB PO SCH (21:04)
[2020-12-15] MEDS: traZODone 100 MG TAB PO SCH (21:04)
[2020-12-15] MEDS: CYCLOBENZAPRINE 10MG TABLET PO SCH (21:04)
[2020-12-15] MEDS: ATORVASTATIN 20 MG TAB PO SCH (21:04)
[2020-12-15] MEDS: QUEtiapine FUMARATE 100 MG TAB PO SCH (21:05)
[2020-12-15] MEDS: haloperidoL 5 MG TAB PO SCH (21:05)
[2020-12-16] MEDS: LEVOTHYROXINE 100MCG TABLET (0.1MG) PO SCH (05:18)
[2020-12-16] MEDS: IBUPROFEN 800 MG TAB PO SCH ×3 (05:18→21:12)
[2020-12-16 06:09] VITALS: BP 156/88
[2020-12-16] MEDS: metFORMIN (GLUCOPHAGE) 1000 MG TABLET PO SCH ×2 (07:30→17:12)
[2020-12-16] MEDS: FLUTICASONE PROP 0.05% NASAL SPRAY 16 GM (FLONASE) NARES SCH (08:37)
[2020-12-16] MEDS: OMEPRAZOLE 20 MG CAP PO SCH (08:38)
[2020-12-16] MEDS: DOCUSATE SODIUM 100MG CAPSULE PO SCH ×2 (08:38→20:15)
[2020-12-16] MEDS: atenoloL 25 MG TAB PO SCH ×2 (08:38→20:15)
[2020-12-16] MEDS: VITAMIN D (CHOLECALCIFEROL) 400 INTERNATIONAL UNITS TAB PO SCH (08:38)
[2020-12-16] MEDS: BENZTROPINE 1 MG TAB PO SCH ×2 (08:38→20:15)
[2020-12-16] MEDS: oxyBUTYnin 5 MG TAB PO SCH (08:38)
[2020-12-16] MEDS: TAMSULOSIN 0.4 MG CAP PO SCH (08:38)
[2020-12-16] MEDS: lamoTRIgine 100MG TAB PO SCH (08:38)
[2020-12-16] MEDS: ASPIRIN 81MG ENTERIC TABLET PO SCH (08:38)
[2020-12-16] MEDS: OMEGA-3 1000MG CAPSULE PO SCH (08:38)
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
[2020-12-16 16:25] VITALS: BP 148/87
[2020-12-16] MEDS: haloperidoL 5 MG TAB PO SCH (20:15)
[2020-12-16] MEDS: QUEtiapine FUMARATE 100 MG TAB PO SCH (20:15)
[2020-12-16] MEDS: MONTELUKAST 10 MG TAB PO SCH (20:15)
[2020-12-16] MEDS: CYCLOBENZAPRINE 10MG TABLET PO SCH (20:15)
[2020-12-16] MEDS: traZODone 100 MG TAB PO SCH (20:15)
[2020-12-16] MEDS: ATORVASTATIN 20 MG TAB PO SCH (20:15)
[2020-12-16] MEDS: diphenhydrAMINE 50MG CAP PO PRN (23:49)
[2020-12-17] MEDS: LEVOTHYROXINE 100MCG TABLET (0.1MG) PO SCH (05:32)
[2020-12-17] MEDS: IBUPROFEN 800 MG TAB PO SCH ×3 (05:33→21:03)
[2020-12-17 05:46] VITALS: BP 147/76
[2020-12-17] MEDS: FLUTICASONE PROP 0.05% NASAL SPRAY 16 GM (FLONASE) NARES SCH (08:17)
[2020-12-17] MEDS: metFORMIN (GLUCOPHAGE) 1000 MG TABLET PO SCH ×2 (08:19→17:13)
[2020-12-17] MEDS: OMEPRAZOLE 20 MG CAP PO SCH (08:19)
[2020-12-17] MEDS: BENZTROPINE 1 MG TAB PO SCH ×2 (08:19→21:03)
[2020-12-17] MEDS: atenoloL 25 MG TAB PO SCH ×2 (08:19→21:04)
[2020-12-17] MEDS: lamoTRIgine 100MG TAB PO SCH (08:19)
[2020-12-17] MEDS: OMEGA-3 1000MG CAPSULE PO SCH (08:19)
[2020-12-17] MEDS: TAMSULOSIN 0.4 MG CAP PO SCH (08:20)
[2020-12-17] MEDS: DOCUSATE SODIUM 100MG CAPSULE PO SCH ×2 (08:20→21:03)
[2020-12-17] MEDS: VITAMIN D (CHOLECALCIFEROL) 400 INTERNATIONAL UNITS TAB PO SCH (08:20)
[2020-12-17] MEDS: oxyBUTYnin 5 MG TAB PO SCH (08:20)
[2020-12-17] MEDS: ASPIRIN 81MG ENTERIC TABLET PO SCH (08:20)
[2020-12-17] MEDS: LORazepam 2 MG TAB PO PRN (10:33)
[2020-12-17] MEDS: diphenhydrAMINE 50MG CAP PO PRN (10:33)
--- NOTE | 2020-12-17 14:35 | MHIPNPDOC ---
[facility] Progress Note Progress Note DATE OF SERVICE: 12/17/20 HISTORY: Patient a 50 y/o man with a past history of bipolar disorder and numerous admissions since his 20's. [place] [facility] [place] and living in [facility] since. Was admitted on this occasion due to disorganized and paranoid behavior. Currently remains in contact isolation due to possible exposure previous treatment nursing staff. Interval: Charts reviewed, continues to have behavioral indiscretion with staff and employees touching them. In treatment team discussed with nursing staff and social workers that we should address these issues and have a low threshold to as needed agitation medications, redirection which is consistent, also spoke with the patient about inappropriate behavior, continues to be concrete, internally "good". VITAL SIGNS: See below. NEW TEST RESULTS: None. CURRENT MEDICATIONS: See below. MENTAL STATUS EXAMINATION: Patient is a 50-year old male, who is seen by his room, mask and glasses, no acute distress, elevated, BMI, somewhat improved hygiene Speech: spontaneous, normal rate Language skills are poor. Thought processes including: Remains disorganized, tangential at times. Thought content: Denies Suicidal thoughts, intent or plan. Abstract reasoning, and computation: unable to fully assess. Description of associations: concrete Description of abnormal or psychotic thoughts: AH, denies command in nature, " they tell me that take a break, times a see funny vampire hair, I love purple" Judgment: poor Insight: poor Orientation: to place only Recent and remote memory: poor Attention span and concentration: Poor, distractible Language: disorganized Fund of knowledge: unable to fully assess Mood: "good" Affect: Grossly psychotic, internally preoccupied, concrete, inappropriate laughter at times, behavioral discretion requiring redirection and as needed medications. DIAGNOSES: 1. Bipolar disorder, mixed episode per hx 2. R/O schizoaffective disorder, bipolar type ASSESSMENT: Patient continues to be grossly psychotic with pleasant delusions and auditory hallucinations pending [facility] [place]. Has some signs of behavioral indiscretion, however no on violent or dangerous staff, requires consistent redirection due to limitations of AOT medication list in the staff was encouraged to have low threshold for as needed medications for behavioral discretion, agitation. MANAGEMENT PLAN: Pending placement for [facility], no medication changes, on AOT. TIME SPENT: 15 minutes. Vital Signs Vital Signs Date Time Temp Pulse Resp B/P (MAP) Pulse Ox O2 Delivery O2 Flow Rate FiO2 12/17/20 08:19 78 170/89 12/17/20 05:46 97.0 18 97 Room Air Current Medications Current Medications Medications (Trade) Dose Ordered Sig/Kailey Route PRN Reason Start Time Stop Time Status Last Admin Dose Admin Acetaminophen (Tylenol Tab) 650 mg Q6HP PRN PO MILD PAIN or TEMP > 101 12/01/20 16:05 12/14/20 16:46 Acetaminophen (Tylenol Tab) 650 mg Q6HP PRN PO HEADACHE or MILD DISCOMFORT 11/18/20 12:40 11/24/20 01:45 DC 11/23/20 03:09 Al Hydrox/Mg Hydrox/Simethicone (Mylanta) 30 ml Q4HP PRN PO HEARTBURN/INDIGESTION 11/18/20 12:40 11/24/20 01:45 DC 11/23/20 22:34 Amlodipine Besylate (Norvasc) 10 mg DAILY PO 11/19/20 09:00 11/22/20 08:55 DC 11/22/20 08:20 Aspirin (Ecotrin) 81 mg DAILY PO 11/24/20 09:00 12/17/20 08:20 Aspirin (Ecotrin) 81 mg QAM PO 11/22/20 09:00 11/24/20 01:45 DC 11/23/20 07:58 Atenolol (Tenormin) 25 mg BID PO 11/22/20 09:00 11/22/20 12:53 DC 11/22/20 09:51 Atenolol (Tenormin) 25 mg BID PO 11/24/20 09:00 12/17/20 08:19 Atenolol (Tenormin) 50 mg BID PO 11/22/20 21:00 11/24/20 00:13 DC 11/23/20 21:16 Atorvastatin Calcium (Lipitor) 40 mg QHS PO 11/18/20 21:00 11/24/20 01:45 DC 11/23/20 21:16 Atorvastatin Calcium (Lipitor) 40 mg QHS PO 11/24/20 21:00 12/16/20 20:15 Benztropine Mesylate (Cogentin) 1 mg BID PO 11/18/20 09:00 11/24/20 01:45 DC 11/23/20 21:15 Benztropine Mesylate (Cogentin) 1 mg BID PO 11/24/20 09:00 12/17/20 08:19 Cyclobenzaprine HCl (Flexeril) 10 mg QHS PO 11/20/20 21:00 11/24/20 01:45 DC 11/23/20 21:16 Cyclobenzaprine HCl (Flexeril) 10 mg QHS PO 11/24/20 21:00 12/16/20 20:15 Diphenhydramine HCl (Benadryl) 50 mg Q8HP PRN PO AGITATION 11/19/20 09:10 11/24/20 01:45 DC 11/23/20 17:51 Diphenhydramine HCl (Benadryl) 50 mg Q8HP PRN PO AGITATION 11/24/20 10:55 12/17/20 10:33 Diphenhydramine HCl (Benadryl) 50 mg STAT STAT IM 11/26/20 02:41 11/26/20 02:44 DC 11/26/20 02:53 Diphenhydramine HCl (Benadryl) 50 mg STAT STAT PO 11/19/20 06:48 11/19/20 06:50 DC 11/19/20 07:06 Docusate Sodium (Colace) 100 mg BID PO 11/18/20 21:00 11/24/20 01:45 DC 11/23/20 21:15 Docusate Sodium (Colace) 100 mg BID PO 11/24/20 09:00 12/17/20 08:20 Fish Oil ([place]-3 (1000mg)) 1 cap DAILY PO 12/06/20 09:00 12/17/20 08:19 Fluticasone Propionate (Flonase 0.05% Nasal [place]) 2 spray DAILY NARES 11/19/20 09:00 11/24/20 01:45 DC 11/23/20 08:01 Fluticasone Propionate (Flonase 0.05% Nasal [place]) 2 spray DAILY NARES 11/24/20 09:00 12/17/20 08:17 Haloperidol (Haldol) 10 mg Q8HP PRN PO AGITATION 11/19/20 09:10 11/24/20 01:45 DC 11/23/20 23:21 Haloperidol (Haldol) 10 mg Q8HP PRN PO AGITATION 11/24/20 10:55 12/17/20 10:33 Haloperidol (Haldol) 10 mg QHS PO 11/19/20 21:00 11/19/20 09:48 DC Haloperidol (Haldol) 10 mg QHS PO 11/19/20 21:00 11/24/20 01:45 DC 11/23/20 21:16 Haloperidol (Haldol) 10 mg QHS PO 11/24/20 21:00 12/11/20 10:47 DC 12/10/20 21:45 Haloperidol (Haldol) 10 mg STAT STAT IM 11/26/20 02:41 11/26/20 02:44 DC 11/26/20 02:52 Haloperidol (Haldol) 10 mg STAT STAT PO 11/19/20 06:48 11/19/20 06:50 DC 11/19/20 07:06 Haloperidol (Haldol) 15 mg QHS PO 12/11/20 21:00 12/16/20 20:15 Haloperidol Decanoate (Haldol Decanoate) 100 mg Q28D IM 11/28/20 12:00 11/28/20 13:26 Home Med (Med Rec Complete!) ASDIRECTED XX 11/17/20 23:25 11/17/20 23:24 DC Ibuprofen (Advil) 800 mg Q8H PO 12/11/20 14:00 12/17/20 13:55 Lamotrigine (LaMICtal) 200 mg DAILY PO 11/18/20 09:00 11/24/20 01:45 DC 11/23/20 08:00 Lamotrigine (LaMICtal) 200 mg DAILY PO 11/24/20 09:00 12/17/20 08:19 Levothyroxine Sodium (Synthroid) 100 mcg DAILY@06 PO 11/24/20 06:00 12/17/20 05:32 Levothyroxine Sodium (Synthroid) 100 mcg DAILY@0600 PO 11/19/20 06:00 11/24/20 01:45 DC 11/23/20 05:05 Lorazepam (Ativan) 2 mg Q8HP PRN PO ANXIETY/AGITATION 12/02/20 12:05 12/17/20 10:33 Lorazepam (Ativan) 2 mg Q8HP PRN PO AGITATION 11/19/20 09:10 11/24/20 01:45 DC 11/23/20 23:21 Lorazepam (Ativan) 2 mg Q8HP PRN PO AGITATION 11/24/20 10:55 12/01/20 10:54 DC 11/30/20 22:04 Lorazepam (Ativan) 2 mg STAT STAT IM 11/26/20 02:41 11/26/20 02:44 DC 11/26/20 02:53 Lorazepam (Ativan) 2 mg STAT STAT PO 11/19/20 06:48 11/19/20 06:50 DC 11/19/20 07:06 Losartan Potassium (Cozaar) 50 mg DAILY PO 11/19/20 09:00 11/22/20 08:55 DC 11/22/20 08:20 Magnesium Hydroxide (Milk Of Magnesia) 30 ml DAILYPRN PRN PO CONSTIPATION 11/18/20 12:40 11/24/20 01:45 DC Magnesium Hydroxide (Milk Of Magnesia) 30 ml DAILYPRN PRN PO CONSTIPATION 11/24/20 10:55 Metformin HCl (Glucophage) 1,000 mg BID@08,18 PO 11/24/20 08:00 12/17/20 08:19 Metformin HCl (Glucophage) 1,000 mg BID@0800,1800 PO 11/18/20 18:00 11/24/20 01:45 DC 11/23/20 17:34 Miscellaneous (Unresolved Clarification Entry) SEE LABEL COMMENTS DAILY XX 11/30/20 09:00 12/02/20 09:53 DC Miscellaneous (Unresolved Clarification Entry) SEE LABEL COMMENTS DAILY XX 12/02/20 09:00 12/02/20 12:12 DC Miscellaneous (Unresolved Clarification Entry) SEE LABEL COMMENTS DAILY XX 12/13/20 09:00 12/15/20 10:07 DC Montelukast Sodium (Singulair) 10 mg QHS PO 11/18/20 21:00 11/24/20 01:45 DC 11/23/20 21:15 Montelukast Sodium (Singulair) 10 mg QHS PO 11/24/20 21:00 12/16/20 20:15 Omeprazole (PriLOSEC) 20 mg DAILY PO 12/11/20 09:00 12/17/20 08:19 Oxybutynin Chloride (Ditropan) 5 mg DAILY PO 11/19/20 09:00 11/24/20 01:45 [place] 11/23/20 08:00 Oxybutynin Chloride (Ditropan) 5 mg DAILY PO 11/24/20 09:00 12/17/20 08:20 Propranolol HCl (Inderal) 10 mg BID PO 11/18/20 21:00 11/22/20 08:55 DC 11/22/20 08:20 Quetiapine Fumarate (SEROquel) 200 mg QHS PO 11/19/20 21:00 11/24/20 01:45 DC 11/23/20 21:15 Quetiapine Fumarate (SEROquel) 200 mg QHS PO 11/24/20 21:00 12/04/20 08:57 DC 12/03/20 20:20 Quetiapine Fumarate (SEROquel) 300 mg QHS PO 12/04/20 21:00 12/16/20 20:15 Tamsulosin HCl (Flomax) 0.8 mg DAILY PO 11/19/20 09:00 11/24/20 01:45 [place] 11/23/20 08:01 Tamsulosin HCl (Flomax) 0.8 mg DAILY PO 11/24/20 09:00 12/17/20 08:20 Trazodone HCl (Desyrel) 100 mg QPM PO 11/18/20 21:00 11/24/20 01:45 DC 11/23/20 21:16 Trazodone HCl (Desyrel) 100 mg QPM PO 11/24/20 21:00 12/16/20 20:15 Vitamin D (Vitamin D) 400 units DAILY PO 11/19/20 09:00 11/24/20 01:45 [place] 11/23/20 08:00 Vitamin D (Vitamin D) 400 units DAILY PO 11/24/20 09:00 12/17/20 08:20 Allergies Coded Allergies: Penicillins (Verified Allergy, Intermediate, rash, 01/02/19) latex (Verified Allergy, Intermediate, rash, 12/13/19) divalproex sodium (Verified Allergy, Unknown, 01/02/19) AYESHA MOLINA MD Dec 17, 2020 14:35
[2020-12-17 18:52] VITALS: BP 148/96
[2020-12-17] MEDS: QUEtiapine FUMARATE 100 MG TAB PO SCH (21:02)
[2020-12-17] MEDS: traZODone 100 MG TAB PO SCH (21:02)
[2020-12-17] MEDS: ATORVASTATIN 20 MG TAB PO SCH (21:03)
[2020-12-17] MEDS: CYCLOBENZAPRINE 10MG TABLET PO SCH (21:03)
[2020-12-17] MEDS: haloperidoL 5 MG TAB PO SCH (21:03)
[2020-12-17] MEDS: MONTELUKAST 10 MG TAB PO SCH (21:04)
[2020-12-18] MEDS: LEVOTHYROXINE 100MCG TABLET (0.1MG) PO SCH (06:08)
[2020-12-18] MEDS: IBUPROFEN 800 MG TAB PO SCH ×3 (06:09→21:10)
[2020-12-18 06:47] VITALS: BP 148/78
[2020-12-18] MEDS: metFORMIN (GLUCOPHAGE) 1000 MG TABLET PO SCH ×2 (07:24→17:06)
[2020-12-18] MEDS: TAMSULOSIN 0.4 MG CAP PO SCH (08:52)
[2020-12-18] MEDS: lamoTRIgine 100MG TAB PO SCH (08:52)
[2020-12-18] MEDS: atenoloL 25 MG TAB PO SCH ×2 (08:52→20:05)
[2020-12-18] MEDS: DOCUSATE SODIUM 100MG CAPSULE PO SCH ×2 (08:52→20:05)
[2020-12-18] MEDS: ASPIRIN 81MG ENTERIC TABLET PO SCH (08:52)
[2020-12-18] MEDS: BENZTROPINE 1 MG TAB PO SCH ×2 (08:52→20:05)
[2020-12-18] MEDS: FLUTICASONE PROP 0.05% NASAL SPRAY 16 GM (FLONASE) NARES SCH (08:52)
[2020-12-18] MEDS: OMEGA-3 1000MG CAPSULE PO SCH (08:52)
[2020-12-18] MEDS: OMEPRAZOLE 20 MG CAP PO SCH (08:52)
[2020-12-18] MEDS: VITAMIN D (CHOLECALCIFEROL) 400 INTERNATIONAL UNITS TAB PO SCH (08:53)
[2020-12-18] MEDS: oxyBUTYnin 5 MG TAB PO SCH (08:53)
[2020-12-18] MEDS ORDERED: TUBERCULIN PPD 5 UNITS/0.1 ML ID ONE (13:00)
--- NOTE | 2020-12-18 13:00 | MHIPNPDOC ---
[facility] Note DATE OF SERVICE: 12/18/20 HISTORY: Patient a 50 y/o man with a past history of bipolar disorder and numerous admissions since his 20's. [place] [facility] [place] [facility] since. Was admitted on this occasion due to disorganized and paranoid behavior. Currently remains in contact isolation due to possible exposure previous treatment nursing staff. Interval: Charts reviewed, patient was seen in the morning, lying in bed, reports in the mornings he feels a little bit tired but then feels better during the day. Reports sleeps through the night and appetite and mood are both "good", which is the same as previous days. When asked about auditory hallucinations reports he hears"normal voices". He then proceeds to show me his coloring book that he is working on through and enthusiastic about. VITAL SIGNS: See below. NEW TEST RESULTS: None. CURRENT MEDICATIONS: See below. MENTAL STATUS EXAMINATION: Patient is a 50-year old male, who is seen by his room, mask and glasses, no acute distress, elevated, BMI, somewhat improved hygiene Speech: spontaneous, normal rate Language skills are poor. Thought processes including: Remains disorganized, tangential at times. Thought content: Denies Suicidal thoughts, intent or plan. Abstract reasoning, and computation: unable to fully assess. Description of associations: concrete Description of abnormal or psychotic thoughts: AH, reports pleasant. Judgment: poor Insight: poor Orientation: to person, place, time Recent and remote memory: poor Attention span and concentration: Poor, distractible Language: Chinese Fund of knowledge: Below average Mood: No change "good" Affect: No change, grossly psychotic, did not appear to be laughing inappropriately this morning DIAGNOSES: 1. Bipolar disorder, mixed episode per hx 2. R/O schizoaffective disorder, bipolar type ASSESSMENT: No change, grossly psychotic and pending [place] [facility] Reports tolerating meds well, no acute complaints. Needs continued stay as he cannot care for himself and poses a safety risk to self and others. MANAGEMENT PLAN: Continue coordination with treatment team and social work for possible discharge next week, pending placement [place] [facility], no medication changes, on AOT. TIME SPENT: 15 minutes. Vital Signs Vital Signs Date Time Temp Pulse Resp B/P (MAP) Pulse Ox O2 Delivery O2 Flow Rate FiO2 12/18/20 08:52 70 142/78 12/18/20 06:47 97.8 18 96 Room Air Current Medications Current Medications Medications (Trade) Dose Ordered Sig/Kailey Route PRN Reason Start Time Stop Time Status Last Admin Dose Admin Acetaminophen (Tylenol Tab) 650 mg Q6HP PRN PO MILD PAIN or TEMP > 101 12/01/20 16:05 12/14/20 16:46 Acetaminophen (Tylenol Tab) 650 mg Q6HP PRN PO HEADACHE or MILD DISCOMFORT 11/18/20 12:40 11/24/20 01:45 DC 11/23/20 03:09 Al Hydrox/Mg Hydrox/Simethicone (Mylanta) 30 ml Q4HP PRN PO HEARTBURN/INDIGESTION 11/18/20 12:40 11/24/20 01:45 DC 11/23/20 22:34 Amlodipine Besylate (Norvasc) 10 mg DAILY PO 11/19/20 09:00 11/22/20 08:55 DC 11/22/20 08:20 Aspirin (Ecotrin) 81 mg DAILY PO 11/24/20 09:00 12/18/20 08:52 Aspirin (Ecotrin) 81 mg QAM PO 11/22/20 09:00 11/24/20 01:45 DC 11/23/20 07:58 Atenolol (Tenormin) 25 mg BID PO 11/22/20 09:00 11/22/20 12:53 DC 11/22/20 09:51 Atenolol (Tenormin) 25 mg BID PO 11/24/20 09:00 12/18/20 08:52 Atenolol (Tenormin) 50 mg BID PO 11/22/20 21:00 11/24/20 00:13 DC 11/23/20 21:16 Atorvastatin Calcium (Lipitor) 40 mg QHS PO 11/18/20 21:00 11/24/20 01:45 DC 11/23/20 21:16 Atorvastatin Calcium (Lipitor) 40 mg QHS PO 11/24/20 21:00 12/17/20 21:03 Benztropine Mesylate (Cogentin) 1 mg BID PO 11/18/20 09:00 11/24/20 01:45 DC 11/23/20 21:15 Benztropine Mesylate (Cogentin) 1 mg BID PO 11/24/20 09:00 12/18/20 08:52 Cyclobenzaprine HCl (Flexeril) 10 mg QHS PO 11/20/20 21:00 11/24/20 01:45 DC 11/23/20 21:16 Cyclobenzaprine HCl (Flexeril) 10 mg QHS PO 11/24/20 21:00 12/17/20 21:03 Diphenhydramine HCl (Benadryl) 50 mg Q8HP PRN PO AGITATION 11/19/20 09:10 11/24/20 01:45 DC 11/23/20 17:51 Diphenhydramine HCl (Benadryl) 50 mg Q8HP PRN PO AGITATION 11/24/20 10:55 12/17/20 10:33 Diphenhydramine HCl (Benadryl) 50 mg STAT STAT IM 11/26/20 02:41 11/26/20 02:44 DC 11/26/20 02:53 Diphenhydramine HCl (Benadryl) 50 mg STAT STAT PO 11/19/20 06:48 11/19/20 06:50 DC 11/19/20 07:06 Docusate Sodium (Colace) 100 mg BID PO 11/18/20 21:00 11/24/20 01:45 DC 11/23/20 21:15 Docusate Sodium (Colace) 100 mg BID PO 11/24/20 09:00 12/18/20 08:52 Fish Oil ([place]-3 (1000mg)) 1 cap DAILY PO 12/06/20 09:00 12/18/20 08:52 Fluticasone Propionate (Flonase 0.05% Nasal [place]) 2 spray DAILY NARES 11/19/20 09:00 11/24/20 01:45 DC 11/23/20 08:01 Fluticasone Propionate (Flonase 0.05% Nasal [place]) 2 spray DAILY NARES 11/24/20 09:00 12/18/20 08:52 Haloperidol (Haldol) 10 mg Q8HP PRN PO AGITATION 11/19/20 09:10 11/24/20 01:45 DC 11/23/20 23:21 Haloperidol (Haldol) 10 mg Q8HP PRN PO AGITATION 11/24/20 10:55 12/17/20 10:33 Haloperidol (Haldol) 10 mg QHS PO 11/19/20 21:00 11/19/20 09:48 DC Haloperidol (Haldol) 10 mg QHS PO 11/19/20 21:00 11/24/20 01:45 DC 11/23/20 21:16 Haloperidol (Haldol) 10 mg QHS PO 11/24/20 21:00 12/11/20 10:47 DC 12/10/20 21:45 Haloperidol (Haldol) 10 mg STAT STAT IM 11/26/20 02:41 11/26/20 02:44 DC 11/26/20 02:52 Haloperidol (Haldol) 10 mg STAT STAT PO 11/19/20 06:48 11/19/20 06:50 DC 11/19/20 07:06 Haloperidol (Haldol) 15 mg QHS PO 12/11/20 21:00 12/17/20 21:03 Haloperidol Decanoate (Haldol Decanoate) 100 mg Q28D IM 11/28/20 12:00 11/28/20 13:26 Home Med (Med Rec Complete!) ASDIRECTED XX 11/17/20 23:25 11/17/20 23:24 DC Ibuprofen (Advil) 800 mg Q8H PO 12/11/20 14:00 12/18/20 06:09 Lamotrigine (LaMICtal) 200 mg DAILY PO 11/18/20 09:00 11/24/20 01:45 DC 11/23/20 08:00 Lamotrigine (LaMICtal) 200 mg DAILY PO 11/24/20 09:00 12/18/20 08:52 Levothyroxine Sodium (Synthroid) 100 mcg DAILY@06 PO 11/24/20 06:00 12/18/20 06:08 Levothyroxine Sodium (Synthroid) 100 mcg DAILY@0600 PO 11/19/20 06:00 11/24/20 01:45 DC 11/23/20 05:05 Lorazepam (Ativan) 2 mg Q8HP PRN PO ANXIETY/AGITATION 12/02/20 12:05 12/17/20 10:33 Lorazepam (Ativan) 2 mg Q8HP PRN PO AGITATION 11/19/20 09:10 11/24/20 01:45 DC 11/23/20 23:21 Lorazepam (Ativan) 2 mg Q8HP PRN PO AGITATION 11/24/20 10:55 12/01/20 10:54 DC 11/30/20 22:04 Lorazepam (Ativan) 2 mg STAT STAT IM 11/26/20 02:41 11/26/20 02:44 DC 11/26/20 02:53 Lorazepam (Ativan) 2 mg STAT STAT PO 11/19/20 06:48 11/19/20 06:50 DC 11/19/20 07:06 Losartan Potassium (Cozaar) 50 mg DAILY PO 11/19/20 09:00 11/22/20 08:55 DC 11/22/20 08:20 Magnesium Hydroxide (Milk Of Magnesia) 30 ml DAILYPRN PRN PO CONSTIPATION 11/18/20 12:40 11/24/20 01:45 DC Magnesium Hydroxide (Milk Of Magnesia) 30 ml DAILYPRN PRN PO CONSTIPATION 11/24/20 10:55 Metformin HCl (Glucophage) 1,000 mg BID@08,18 PO 11/24/20 08:00 12/18/20 07:24 Metformin HCl (Glucophage) 1,000 mg BID@0800,1800 PO 11/18/20 18:00 11/24/20 01:45 DC 11/23/20 17:34 Miscellaneous (Unresolved Clarification Entry) SEE LABEL COMMENTS DAILY XX 11/30/20 09:00 12/02/20 09:53 DC Miscellaneous (Unresolved Clarification Entry) SEE LABEL COMMENTS DAILY XX 12/02/20 09:00 12/02/20 12:12 DC Miscellaneous (Unresolved Clarification Entry) SEE LABEL COMMENTS DAILY XX 12/13/20 09:00 12/15/20 10:07 DC Montelukast Sodium (Singulair) 10 mg QHS PO 11/18/20 21:00 11/24/20 01:45 DC 11/23/20 21:15 Montelukast Sodium (Singulair) 10 mg QHS PO 11/24/20 21:00 12/17/20 21:04 Omeprazole (PriLOSEC) 20 mg DAILY PO 12/11/20 09:00 12/18/20 08:52 Oxybutynin Chloride (Ditropan) 5 mg DAILY PO 11/19/20 09:00 11/24/20 01:45 DC 11/23/20 08:00 Oxybutynin Chloride (Ditropan) 5 mg DAILY PO 11/24/20 09:00 12/18/20 08:53 Propranolol HCl (Inderal) 10 mg BID PO 11/18/20 21:00 11/22/20 08:55 DC 11/22/20 08:20 Quetiapine Fumarate (SEROquel) 200 mg QHS PO 11/19/20 21:00 11/24/20 01:45 DC 11/23/20 21:15 Quetiapine Fumarate (SEROquel) 200 mg QHS PO 11/24/20 21:00 12/04/20 08:57 DC 12/03/20 20:20 Quetiapine Fumarate (SEROquel) 300 mg QHS PO 12/04/20 21:00 12/17/20 21:02 Tamsulosin HCl (Flomax) 0.8 mg DAILY PO 11/19/20 09:00 11/24/20 01:45 DC 11/23/20 08:01 Tamsulosin HCl (Flomax) 0.8 mg DAILY PO 11/24/20 09:00 12/18/20 08:52 Trazodone HCl (Desyrel) 100 mg QPM PO 11/18/20 21:00 11/24/20 01:45 DC 11/23/20 21:16 Trazodone HCl (Desyrel) 100 mg QPM PO 11/24/20 21:00 12/17/20 21:02 Vitamin D (Vitamin D) 400 units DAILY PO 11/19/20 09:00 11/24/20 01:45 DC 11/23/20 08:00 Vitamin D (Vitamin D) 400 units DAILY PO 11/24/20 09:00 12/18/20 08:53 Allergies Coded Allergies: Penicillins (Verified Allergy, Intermediate, rash, 01/02/19) latex (Verified Allergy, Intermediate, rash, 12/13/19) divalproex sodium (Verified Allergy, Unknown, 01/02/19) AYESHA MOLINA MD Dec 18, 2020 12:59
[2020-12-18 16:04] VITALS: BP 140/81
[2020-12-18] MEDS: ATORVASTATIN 20 MG TAB PO SCH (20:04)
[2020-12-18] MEDS: MONTELUKAST 10 MG TAB PO SCH (20:04)
[2020-12-18] MEDS: QUEtiapine FUMARATE 100 MG TAB PO SCH (20:05)
[2020-12-18] MEDS: haloperidoL 5 MG TAB PO SCH (20:05)
[2020-12-18] MEDS: traZODone 100 MG TAB PO SCH (20:05)
[2020-12-18] MEDS: CYCLOBENZAPRINE 10MG TABLET PO SCH (20:05)
[2020-12-19] MEDS: LEVOTHYROXINE 100MCG TABLET (0.1MG) PO SCH (05:34)
[2020-12-19] MEDS: IBUPROFEN 800 MG TAB PO SCH ×3 (05:35→21:10)
[2020-12-19 06:30] VITALS: BP 138/89
[2020-12-19] MEDS: FLUTICASONE PROP 0.05% NASAL SPRAY 16 GM (FLONASE) NARES SCH (08:52)
[2020-12-19] MEDS: OMEPRAZOLE 20 MG CAP PO SCH (08:52)
[2020-12-19] MEDS: oxyBUTYnin 5 MG TAB PO SCH (08:52)
[2020-12-19] MEDS: lamoTRIgine 100MG TAB PO SCH (08:52)
[2020-12-19] MEDS: ASPIRIN 81MG ENTERIC TABLET PO SCH (08:52)
[2020-12-19] MEDS: BENZTROPINE 1 MG TAB PO SCH ×2 (08:52→20:39)
[2020-12-19] MEDS: VITAMIN D (CHOLECALCIFEROL) 400 INTERNATIONAL UNITS TAB PO SCH (08:52)
[2020-12-19] MEDS: DOCUSATE SODIUM 100MG CAPSULE PO SCH ×2 (08:53→20:38)
[2020-12-19] MEDS: OMEGA-3 1000MG CAPSULE PO SCH (08:53)
[2020-12-19] MEDS: metFORMIN (GLUCOPHAGE) 1000 MG TABLET PO SCH ×2 (08:53→18:00)
[2020-12-19] MEDS: TAMSULOSIN 0.4 MG CAP PO SCH (08:53)
[2020-12-19] MEDS: atenoloL 25 MG TAB PO SCH ×2 (08:56→20:38)
--- NOTE | 2020-12-19 11:44 | MHIPNPDOC ---
[facility] Progress Note Progress Note DATE OF SERVICE: 12/19/20 HISTORY: Patient a 50 y/o man with a past history of bipolar disorder and numerous admissions since his 20's. Was [place] [facility] [place] and living in [facility] since. Was admitted on this occasion due to disorganized and paranoid behavior. Currently remains in contact isolation due to possible exposure previous treatment nursing staff. Interval: Charts reviewed, patient reports being little bit more tired this morning, with thought that it may be the nighttime medication, otherwise states he is doing well apart from some chronic right knee pain and ankle pain, without swelling or redness, reports is the same pain he has had for years and it is ac vilma in the joints, agrees to having as needed cream for pain and taking BenGay. Also agrees to have nighttime Haldol decreased from 15 to 10 mg nightly to see if that helps with morning sedation. Otherwise does not have depressed mood reportedly and says anxiety is not present. No signs of winsome or aggressive behavior towards others. Is hopeful about long-term treatment. VITAL SIGNS: See below. NEW TEST RESULTS: None. CURRENT MEDICATIONS: See below. MENTAL STATUS EXAMINATION: Patient is a 50-year old male, who is seen by his room, mask and glasses, no acute distress, elevated, BMI, somewhat improved hygiene Speech: spontaneous, normal rate Language skills are poor. Thought processes including: Remains disorganized, tangential at times. Thought content: Denies Suicidal thoughts, intent or plan. Abstract reasoning, and computation: unable to fully assess. Description of associations: concrete Description of abnormal or psychotic thoughts: AH, states he hears voices from his childhood, not scary. Judgment: poor Insight: poor Orientation: to person, place, time Recent and remote memory: poor Attention span and concentration: Poor, distractible Language: [place]al[place] Fund of knowledge: Below average Mood: "okay" Affect: Internally preoccupied, grossly psychotic, inappropriate laughter at times. DIAGNOSES: 1. Bipolar disorder, mixed episode per hx 2. R/O schizoaffective disorder, bipolar type ASSESSMENT: Morning sedation, agreeable to medication change, otherwise denies medication side effects. Right knee and ankle pain agreeable to BenGay cream. Pending placement to [facility]. Reports tolerating meds well, no acute complaints. Needs continued stay as he cannot care for himself and poses a safety risk to self and others. MANAGEMENT PLAN: As needed twice daily BenGay cream for right knee and ankle joint pain which is chronic and previously experienced reportedly by patient. Otherwise denies acute symptoms that need treatment. Decrease nighttime Haldol from 15 to 10 mg nightly to reduce morning sedation and encourage participation in the social milieu. continue coordination with treatment team and social work for possible discharge next week, pending placement for [facility], no medication changes, on AOT. TIME SPENT: 20 minutes. Vital Signs Vital Signs Date Time Temp Pulse Resp B/P (MAP) Pulse Ox O2 Delivery O2 Flow Rate FiO2 12/19/20 08:56 75 155/93 12/19/20 06:30 97.1 20 95 Room Air Current Medications Current Medications Medications (Trade) Dose Ordered Sig/Kailey Route PRN Reason Start Time Stop Time Status Last Admin Dose Admin Acetaminophen (Tylenol Tab) 650 mg Q6HP PRN PO MILD PAIN or TEMP > 101 12/01/20 16:05 12/14/20 16:46 Acetaminophen (Tylenol Tab) 650 mg Q6HP PRN PO HEADACHE or MILD DISCOMFORT 11/18/20 12:40 11/24/20 01:45 DC 11/23/20 03:09 Al Hydrox/Mg Hydrox/Simethicone (Mylanta) 30 ml Q4HP PRN PO HEARTBURN/INDIGESTION 11/18/20 12:40 11/24/20 01:45 DC 11/23/20 22:34 Amlodipine Besylate (Norvasc) 10 mg DAILY PO 11/19/20 09:00 11/22/20 08:55 DC 11/22/20 08:20 Aspirin (Ecotrin) 81 mg DAILY PO 11/24/20 09:00 12/19/20 08:52 Aspirin (Ecotrin) 81 mg QAM PO 11/22/20 09:00 11/24/20 01:45 DC 11/23/20 07:58 Atenolol (Tenormin) 25 mg BID PO 11/22/20 09:00 11/22/20 12:53 DC 11/22/20 09:51 Atenolol (Tenormin) 25 mg BID PO 11/24/20 09:00 12/19/20 08:56 Atenolol (Tenormin) 50 mg BID PO 11/22/20 21:00 11/24/20 00:13 DC 11/23/20 21:16 Atorvastatin Calcium (Lipitor) 40 mg QHS PO 11/18/20 21:00 11/24/20 01:45 DC 11/23/20 21:16 Atorvastatin Calcium (Lipitor) 40 mg QHS PO 11/24/20 21:00 12/18/20 20:04 Benztropine Mesylate (Cogentin) 1 mg BID PO 11/18/20 09:00 11/24/20 01:45 DC 11/23/20 21:15 Benztropine Mesylate (Cogentin) 1 mg BID PO 11/24/20 09:00 12/19/20 08:52 Cyclobenzaprine HCl (Flexeril) 10 mg QHS PO 11/20/20 21:00 11/24/20 01:45 DC 11/23/20 21:16 Cyclobenzaprine HCl (Flexeril) 10 mg QHS PO 11/24/20 21:00 12/18/20 20:05 Diphenhydramine HCl (Benadryl) 50 mg Q8HP PRN PO AGITATION 11/19/20 09:10 11/24/20 01:45 DC 11/23/20 17:51 Diphenhydramine HCl (Benadryl) 50 mg Q8HP PRN PO AGITATION 11/24/20 10:55 12/17/20 10:33 Diphenhydramine HCl (Benadryl) 50 mg STAT STAT IM 11/26/20 02:41 11/26/20 02:44 DC 11/26/20 02:53 Diphenhydramine HCl (Benadryl) 50 mg STAT STAT PO 11/19/20 06:48 11/19/20 06:50 DC 11/19/20 07:06 Docusate Sodium (Colace) 100 mg BID PO 11/18/20 21:00 11/24/20 01:45 DC 11/23/20 21:15 Docusate Sodium (Colace) 100 mg BID PO 11/24/20 09:00 12/19/20 08:53 Fish Oil ([place]-3 (1000mg)) 1 cap DAILY PO 12/06/20 09:00 12/19/20 08:53 Fluticasone Propionate (Flonase 0.05% Nasal [place]) 2 spray DAILY NARES 11/19/20 09:00 11/24/20 01:45 DC 11/23/20 08:01 Fluticasone Propionate (Flonase 0.05% Nasal [place]) 2 spray DAILY NARES 11/24/20 09:00 12/19/20 08:52 Haloperidol (Haldol) 10 mg Q8HP PRN PO AGITATION 11/19/20 09:10 11/24/20 01:45 DC 11/23/20 23:21 Haloperidol (Haldol) 10 mg Q8HP PRN PO AGITATION 11/24/20 10:55 12/17/20 10:33 Haloperidol (Haldol) 10 mg QHS PO 11/19/20 21:00 11/19/20 09:48 DC Haloperidol (Haldol) 10 mg QHS PO 11/19/20 21:00 11/24/20 01:45 DC 11/23/20 21:16 Haloperidol (Haldol) 10 mg QHS PO 11/24/20 21:00 12/11/20 10:47 DC 12/10/20 21:45 Haloperidol (Haldol) 10 mg QHS PO 12/19/20 21:00 Haloperidol (Haldol) 10 mg STAT STAT IM 11/26/20 02:41 11/26/20 02:44 DC 11/26/20 02:52 Haloperidol (Haldol) 10 mg STAT STAT PO 11/19/20 06:48 11/19/20 06:50 DC 11/19/20 07:06 Haloperidol (Haldol) 15 mg QHS PO 12/11/20 21:00 12/19/20 10:34 DC 12/18/20 20:05 Haloperidol Decanoate (Haldol Decanoate) 100 mg Q28D IM 11/28/20 12:00 11/28/20 13:26 Home Med (Med Rec Complete!) ASDIRECTED XX 11/17/20 23:25 11/17/20 23:24 DC Ibuprofen (Advil) 800 mg Q8H PO 12/11/20 14:00 12/19/20 05:35 Lamotrigine (LaMICtal) 200 mg DAILY PO 11/18/20 09:00 11/24/20 01:45 DC 11/23/20 08:00 Lamotrigine (LaMICtal) 200 mg DAILY PO 11/24/20 09:00 12/19/20 08:52 Levothyroxine Sodium (Synthroid) 100 mcg DAILY@06 PO 11/24/20 06:00 12/19/20 05:34 Levothyroxine Sodium (Synthroid) 100 mcg DAILY@0600 PO 11/19/20 06:00 11/24/20 01:45 DC 11/23/20 05:05 Lorazepam (Ativan) 2 mg Q8HP PRN PO ANXIETY/AGITATION 12/02/20 12:05 12/17/20 10:33 Lorazepam (Ativan) 2 mg Q8HP PRN PO AGITATION 11/19/20 09:10 11/24/20 01:45 DC 11/23/20 23:21 Lorazepam (Ativan) 2 mg Q8HP PRN PO AGITATION 11/24/20 10:55 12/01/20 10:54 DC 11/30/20 22:04 Lorazepam (Ativan) 2 mg STAT STAT IM 11/26/20 02:41 11/26/20 02:44 DC 11/26/20 02:53 Lorazepam (Ativan) 2 mg STAT STAT PO 11/19/20 06:48 11/19/20 06:50 DC 11/19/20 07:06 Losartan Potassium (Cozaar) 50 mg DAILY PO 11/19/20 09:00 11/22/20 08:55 DC 11/22/20 08:20 Magnesium Hydroxide (Milk Of Magnesia) 30 ml DAILYPRN PRN PO CONSTIPATION 11/18/20 12:40 11/24/20 01:45 DC Magnesium Hydroxide (Milk Of Magnesia) 30 ml DAILYPRN PRN PO CONSTIPATION 11/24/20 10:55 Metformin HCl (Glucophage) 1,000 mg BID@08,18 PO 11/24/20 08:00 12/19/20 08:53 Metformin HCl (Glucophage) 1,000 mg BID@0800,1800 PO 11/18/20 18:00 11/24/20 01:45 DC 11/23/20 17:34 Miscellaneous (Unresolved Clarification Entry) SEE LABEL COMMENTS DAILY XX 11/30/20 09:00 12/02/20 09:53 DC Miscellaneous (Unresolved Clarification Entry) SEE LABEL COMMENTS DAILY XX 12/02/20 09:00 12/02/20 12:12 DC Miscellaneous (Unresolved Clarification Entry) SEE LABEL COMMENTS DAILY XX 12/13/20 09:00 12/15/20 10:07 DC Montelukast Sodium (Singulair) 10 mg QHS PO 11/18/20 21:00 11/24/20 01:45 DC 11/23/20 21:15 Montelukast Sodium (Singulair) 10 mg QHS PO 11/24/20 21:00 12/18/20 20:04 Omeprazole (PriLOSEC) 20 mg DAILY PO 12/11/20 09:00 12/19/20 08:52 Oxybutynin Chloride (Ditropan) 5 mg DAILY PO 11/19/20 09:00 11/24/20 01:45 DC 11/23/20 08:00 Oxybutynin Chloride (Ditropan) 5 mg DAILY PO 11/24/20 09:00 12/19/20 08:52 Propranolol HCl (Inderal) 10 mg BID PO 11/18/20 21:00 11/22/20 08:55 DC 11/22/20 08:20 Quetiapine Fumarate (SEROquel) 200 mg QHS PO 11/19/20 21:00 11/24/20 01:45 DC 11/23/20 21:15 Quetiapine Fumarate (SEROquel) 200 mg QHS PO 11/24/20 21:00 12/04/20 08:57 DC 12/03/20 20:20 Quetiapine Fumarate (SEROquel) 300 mg QHS PO 12/04/20 21:00 12/18/20 20:05 Tamsulosin HCl (Flomax) 0.8 mg DAILY PO 11/19/20 09:00 11/24/20 01:45 DC 11/23/20 08:01 Tamsulosin HCl (Flomax) 0.8 mg DAILY PO 11/24/20 09:00 12/19/20 08:53 Trazodone HCl (Desyrel) 100 mg QPM PO 11/18/20 21:00 11/24/20 01:45 DC 11/23/20 21:16 Trazodone HCl (Desyrel) 100 mg QPM PO 11/24/20 21:00 12/18/20 20:05 Vitamin D (Vitamin D) 400 units DAILY PO 11/19/20 09:00 11/24/20 01:45 DC 11/23/20 08:00 Vitamin D (Vitamin D) 400 units DAILY PO 11/24/20 09:00 12/19/20 08:52 Allergies Coded Allergies: Penicillins (Verified Allergy, Intermediate, rash, 01/02/19) latex (Verified Allergy, Intermediate, rash, 12/13/19) divalproex sodium (Verified Allergy, Unknown, 01/02/19) AYESHA MOLINA MD Dec 19, 2020 11:44
[2020-12-19] MEDS: ANALGESIC BALM CRM 3OZ TOP PRN (18:00)
[2020-12-19 18:03] VITALS: BP 180/92
[2020-12-19] MEDS: MONTELUKAST 10 MG TAB PO SCH (20:38)
[2020-12-19] MEDS: QUEtiapine FUMARATE 100 MG TAB PO SCH (20:38)
[2020-12-19] MEDS: haloperidoL 5 MG TAB PO SCH (20:39)
[2020-12-19] MEDS: ATORVASTATIN 20 MG TAB PO SCH (20:39)
[2020-12-19] MEDS: CYCLOBENZAPRINE 10MG TABLET PO SCH (20:39)
[2020-12-19] MEDS: traZODone 100 MG TAB PO SCH (20:39)
[2020-12-20] MEDS: LEVOTHYROXINE 100MCG TABLET (0.1MG) PO SCH (06:35)
[2020-12-20] MEDS: IBUPROFEN 800 MG TAB PO SCH ×3 (06:36→22:03)
[2020-12-20 07:35] VITALS: BP 140/76
[2020-12-20] MEDS: FLUTICASONE PROP 0.05% NASAL SPRAY 16 GM (FLONASE) NARES SCH (07:53)
[2020-12-20] MEDS: BENZTROPINE 1 MG TAB PO SCH ×2 (07:53→21:04)
[2020-12-20] MEDS: ASPIRIN 81MG ENTERIC TABLET PO SCH (07:53)
[2020-12-20] MEDS: ANALGESIC BALM CRM 3OZ TOP PRN ×2 (07:53→22:03)
[2020-12-20] MEDS: VITAMIN D (CHOLECALCIFEROL) 400 INTERNATIONAL UNITS TAB PO SCH (07:53)
[2020-12-20] MEDS: OMEGA-3 1000MG CAPSULE PO SCH (07:53)
[2020-12-20] MEDS: metFORMIN (GLUCOPHAGE) 1000 MG TABLET PO SCH ×2 (07:53→17:05)
[2020-12-20] MEDS: DOCUSATE SODIUM 100MG CAPSULE PO SCH ×2 (07:53→21:04)
[2020-12-20] MEDS: TAMSULOSIN 0.4 MG CAP PO SCH (07:54)
[2020-12-20] MEDS: oxyBUTYnin 5 MG TAB PO SCH (07:54)
[2020-12-20] MEDS: OMEPRAZOLE 20 MG CAP PO SCH (07:54)
[2020-12-20] MEDS: atenoloL 25 MG TAB PO SCH ×2 (07:54→21:04)
[2020-12-20] MEDS: lamoTRIgine 100MG TAB PO SCH (07:54)
[2020-12-20] MEDS ORDERED: PPD DOCUMENTATION ENTRY MISC XX ONE (13:00)
--- NOTE | 2020-12-20 15:35 | MHIPNPDOC ---
[facility] Progress Note Progress Note DATE OF SERVICE: 12/20/20 HISTORY: Patient a 50 y/o man with a past history of bipolar disorder and numerous admissions since his 20's. Was d/c from [facility] Jan 2010 and living in [facility] since. Was admitted on this occasion due to disorganized and paranoid behavior. Currently remains in contact isolation due to possible exposure previous treatment nursing staff. Interval: Charts reviewed, patient continues to be concrete, internally occupied, appears less sedated in the morning and more in the social media than on previous days, was spending time by the telephone. VITAL SIGNS: See below. NEW TEST RESULTS: None. CURRENT MEDICATIONS: See below. MENTAL STATUS EXAMINATION: Patient is a 50-year old male, who is seen by his room, mask and glasses, no acute distress, elevated, BMI, somewhat improved hygiene Speech: spontaneous, normal rate Language skills are poor. Thought processes including: Remains disorganized, tangential at times. Thought content: Denies Suicidal thoughts, intent or plan. Abstract reasoning, and computation: unable to fully assess. Description of associations: concrete Description of abnormal or psychotic thoughts: AH, states he hears voices from his childhood, not scary. Judgment: poor Insight: poor Orientation: to person, place, time Recent and remote memory: poor Attention span and concentration: Poor, distractible Language: Serbian Fund of knowledge: Below average Mood: "All right" Affect: No change, or psychotic DIAGNOSES: 1. Bipolar disorder, mixed episode per hx 2. R/O schizoaffective disorder, bipolar type ASSESSMENT: Somewhat less morning sedation per increased activity level, also has been engaged for his right knee pain which reportedly helps him with ambulation. Otherwise no change continues to appear grossly psychotic. MANAGEMENT PLAN: No change, as needed twice daily BenGay cream for right knee and ankle joint pain which is chronic and previously experienced reportedly by patient. Otherwise denies acute symptoms that need treatment. Continue Haldol 10 mg nightly for psychosis, encourage participation in the social milieu if he can remain appropriate and be redirected. continue coordination with treatment team and social work for possible discharge next week, pending placement for [facility], no medication changes, on AOT. TIME SPENT: 15 minutes. Vital Signs Vital Signs Date Time Temp Pulse Resp B/P (MAP) Pulse Ox O2 Delivery O2 Flow Rate FiO2 12/20/20 07:54 70 140/76 12/20/20 07:35 97.5 16 96 Room Air Current Medications Current Medications Medications (Trade) Dose Ordered Sig/Kailey Route PRN Reason Start Time Stop Time Status Last Admin Dose Admin Acetaminophen (Tylenol Tab) 650 mg Q6HP PRN PO FEVER 12/01/20 16:05 12/14/20 16:46 Acetaminophen (Tylenol Tab) 650 mg Q6HP PRN PO HEADACHE or MILD DISCOMFORT 11/18/20 12:40 11/24/20 01:45 DC 11/23/20 03:09 Al Hydrox/Mg Hydrox/Simethicone (Mylanta) 30 ml Q4HP PRN PO HEARTBURN/INDIGESTION 11/18/20 12:40 11/24/20 01:45 DC 11/23/20 22:34 Amlodipine Besylate (Norvasc) 10 mg DAILY PO 11/19/20 09:00 11/22/20 08:55 DC 11/22/20 08:20 Aspirin (Ecotrin) 81 mg DAILY PO 11/24/20 09:00 12/20/20 07:53 Aspirin (Ecotrin) 81 mg QAM PO 11/22/20 09:00 11/24/20 01:45 DC 11/23/20 07:58 Atenolol (Tenormin) 25 mg BID PO 11/22/20 09:00 11/22/20 12:53 DC 11/22/20 09:51 Atenolol (Tenormin) 25 mg BID PO 11/24/20 09:00 12/20/20 07:54 Atenolol (Tenormin) 50 mg BID PO 11/22/20 21:00 11/24/20 00:13 DC 11/23/20 21:16 Atorvastatin Calcium (Lipitor) 40 mg QHS PO 11/18/20 21:00 11/24/20 01:45 DC 11/23/20 21:16 Atorvastatin Calcium (Lipitor) 40 mg QHS PO 11/24/20 21:00 12/19/20 20:39 Benztropine Mesylate (Cogentin) 1 mg BID PO 11/18/20 09:00 11/24/20 01:45 DC 11/23/20 21:15 Benztropine Mesylate (Cogentin) 1 mg BID PO 11/24/20 09:00 12/20/20 07:53 Cyclobenzaprine HCl (Flexeril) 10 mg QHS PO 11/20/20 21:00 11/24/20 01:45 DC 11/23/20 21:16 Cyclobenzaprine HCl (Flexeril) 10 mg QHS PO 11/24/20 21:00 12/19/20 20:39 Diphenhydramine HCl (Benadryl) 50 mg Q8HP PRN PO AGITATION 11/19/20 09:10 11/24/20 01:45 DC 11/23/20 17:51 Diphenhydramine HCl (Benadryl) 50 mg Q8HP PRN PO AGITATION 11/24/20 10:55 12/17/20 10:33 Diphenhydramine HCl (Benadryl) 50 mg STAT STAT IM 11/26/20 02:41 11/26/20 02:44 DC 11/26/20 02:53 Diphenhydramine HCl (Benadryl) 50 mg STAT STAT PO 11/19/20 06:48 11/19/20 06:50 DC 11/19/20 07:06 Docusate Sodium (Colace) 100 mg BID PO 11/18/20 21:00 11/24/20 01:45 DC 11/23/20 21:15 Docusate Sodium (Colace) 100 mg BID PO 11/24/20 09:00 12/20/20 07:53 Fish Oil ([place]-3 (1000mg)) 1 cap DAILY PO 12/06/20 09:00 12/20/20 07:53 Fluticasone Propionate (Flonase 0.05% Nasal [place]) 2 spray DAILY NARES 11/19/20 09:00 11/24/20 01:45 DC 11/23/20 08:01 Fluticasone Propionate (Flonase 0.05% Nasal [place]) 2 spray DAILY NARES 11/24/20 09:00 12/20/20 07:53 Haloperidol (Haldol) 10 mg Q8HP PRN PO AGITATION 11/19/20 09:10 11/24/20 01:45 DC 11/23/20 23:21 Haloperidol (Haldol) 10 mg Q8HP PRN PO AGITATION 11/24/20 10:55 12/17/20 10:33 Haloperidol (Haldol) 10 mg QHS PO 11/19/20 21:00 11/19/20 09:48 DC Haloperidol (Haldol) 10 mg QHS PO 11/19/20 21:00 11/24/20 01:45 DC 11/23/20 21:16 Haloperidol (Haldol) 10 mg QHS PO 11/24/20 21:00 12/11/20 10:47 DC 12/10/20 21:45 Haloperidol (Haldol) 10 mg QHS PO 12/19/20 21:00 12/19/20 20:39 Haloperidol (Haldol) 10 mg STAT STAT IM 11/26/20 02:41 11/26/20 02:44 DC 11/26/20 02:52 Haloperidol (Haldol) 10 mg STAT STAT PO 11/19/20 06:48 11/19/20 06:50 DC 11/19/20 07:06 Haloperidol (Haldol) 15 mg QHS PO 12/11/20 21:00 12/19/20 10:34 DC 12/18/20 20:05 Haloperidol Decanoate (Haldol Decanoate) 100 mg Q28D IM 11/28/20 12:00 11/28/20 13:26 Home Med (Med Rec Complete!) ASDIRECTED XX 11/17/20 23:25 11/17/20 23:24 DC Ibuprofen (Advil) 800 mg Q8H PO 12/11/20 14:00 12/20/20 14:07 Lamotrigine (LaMICtal) 200 mg DAILY PO 11/18/20 09:00 11/24/20 01:45 DC 11/23/20 08:00 Lamotrigine (LaMICtal) 200 mg DAILY PO 11/24/20 09:00 12/20/20 07:54 Levothyroxine Sodium (Synthroid) 100 mcg DAILY@06 PO 11/24/20 06:00 12/20/20 06:35 Levothyroxine Sodium (Synthroid) 100 mcg DAILY@0600 PO 11/19/20 06:00 11/24/20 01:45 DC 11/23/20 05:05 Lorazepam (Ativan) 2 mg Q8HP PRN PO ANXIETY/AGITATION 12/02/20 12:05 12/17/20 10:33 Lorazepam (Ativan) 2 mg Q8HP PRN PO AGITATION 11/19/20 09:10 11/24/20 01:45 DC 11/23/20 23:21 Lorazepam (Ativan) 2 mg Q8HP PRN PO AGITATION 11/24/20 10:55 12/01/20 10:54 DC 11/30/20 22:04 Lorazepam (Ativan) 2 mg STAT STAT IM 11/26/20 02:41 11/26/20 02:44 DC 11/26/20 02:53 Lorazepam (Ativan) 2 mg STAT STAT PO 11/19/20 06:48 11/19/20 06:50 DC 11/19/20 07:06 Losartan Potassium (Cozaar) 50 mg DAILY PO 11/19/20 09:00 11/22/20 08:55 DC 11/22/20 08:20 Magnesium Hydroxide (Milk Of Magnesia) 30 ml DAILYPRN PRN PO CONSTIPATION 11/18/20 12:40 11/24/20 01:45 DC Magnesium Hydroxide (Milk Of Magnesia) 30 ml DAILYPRN PRN PO CONSTIPATION 11/24/20 10:55 Menthol/Methyl Salicylate (Bengay Cream) Allow patient to apply t... BID PRN TOP MILD PAIN (PS 1-4) 12/19/20 11:40 12/20/20 07:53 Metformin HCl (Glucophage) 1,000 mg BID@08,18 PO 11/24/20 08:00 12/20/20 07:53 Metformin HCl (Glucophage) 1,000 mg BID@0800,1800 PO 11/18/20 18:00 11/24/20 01:45 DC 11/23/20 17:34 Miscellaneous (Unresolved Clarification Entry) SEE LABEL COMMENTS DAILY XX 11/30/20 09:00 12/02/20 09:53 DC Miscellaneous (Unresolved Clarification Entry) SEE LABEL COMMENTS DAILY XX 12/02/20 09:00 12/02/20 12:12 DC Miscellaneous (Unresolved Clarification Entry) SEE LABEL COMMENTS DAILY XX 12/13/20 09:00 12/15/20 10:07 DC Montelukast Sodium (Singulair) 10 mg QHS PO 11/18/20 21:00 11/24/20 01:45 DC 11/23/20 21:15 Montelukast Sodium (Singulair) 10 mg QHS PO 11/24/20 21:00 12/19/20 20:38 Omeprazole (PriLOSEC) 20 mg DAILY PO 12/11/20 09:00 12/20/20 07:54 Oxybutynin Chloride (Ditropan) 5 mg DAILY PO 11/19/20 09:00 11/24/20 01:45 DC 11/23/20 08:00 Oxybutynin Chloride (Ditropan) 5 mg DAILY PO 11/24/20 09:00 12/20/20 07:54 Propranolol HCl (Inderal) 10 mg BID PO 11/18/20 21:00 11/22/20 08:55 DC 11/22/20 08:20 Quetiapine Fumarate (SEROquel) 200 mg QHS PO 11/19/20 21:00 11/24/20 01:45 DC 11/23/20 21:15 Quetiapine Fumarate (SEROquel) 200 mg QHS PO 11/24/20 21:00 12/04/20 08:57 DC 12/03/20 20:20 Quetiapine Fumarate (SEROquel) 300 mg QHS PO 12/04/20 21:00 12/19/20 20:38 Tamsulosin HCl (Flomax) 0.8 mg DAILY PO 11/19/20 09:00 11/24/20 01:45 DC 11/23/20 08:01 Tamsulosin HCl (Flomax) 0.8 mg DAILY PO 11/24/20 09:00 12/20/20 07:54 Trazodone HCl (Desyrel) 100 mg QPM PO 11/18/20 21:00 11/24/20 01:45 DC 11/23/20 21:16 Trazodone HCl (Desyrel) 100 mg QPM PO 11/24/20 21:00 12/19/20 20:39 Vitamin D (Vitamin D) 400 units DAILY PO 11/19/20 09:00 11/24/20 01:45 DC 11/23/20 08:00 Vitamin D (Vitamin D) 400 units DAILY PO 11/24/20 09:00 12/20/20 07:53 Allergies Coded Allergies: Penicillins (Verified Allergy, Intermediate, rash, 01/02/19) latex (Verified Allergy, Intermediate, rash, 12/13/19) divalproex sodium (Verified Allergy, Unknown, 01/02/19) AYESHA MOLINA MD Dec 20, 2020 15:35
[2020-12-20 16:02] VITALS: BP 142/74
[2020-12-20] MEDS: MONTELUKAST 10 MG TAB PO SCH (21:04)
[2020-12-20] MEDS: traZODone 100 MG TAB PO SCH (21:04)
[2020-12-20] MEDS: CYCLOBENZAPRINE 10MG TABLET PO SCH (21:04)
[2020-12-20] MEDS: QUEtiapine FUMARATE 100 MG TAB PO SCH (21:04)
[2020-12-20] MEDS: haloperidoL 5 MG TAB PO SCH (21:04)
[2020-12-20] MEDS: ATORVASTATIN 20 MG TAB PO SCH (21:05)
[2020-12-21] MEDS: LEVOTHYROXINE 100MCG TABLET (0.1MG) PO SCH (05:30)
[2020-12-21] MEDS: IBUPROFEN 800 MG TAB PO SCH ×3 (05:30→21:54)
[2020-12-21 06:08] VITALS: BP 113/63
[2020-12-21] MEDS: metFORMIN (GLUCOPHAGE) 1000 MG TABLET PO SCH ×2 (07:20→17:14)
[2020-12-21] MEDS: atenoloL 25 MG TAB PO SCH ×2 (09:48→20:32)
[2020-12-21] MEDS: FLUTICASONE PROP 0.05% NASAL SPRAY 16 GM (FLONASE) NARES SCH (09:48)
[2020-12-21] MEDS: OMEGA-3 1000MG CAPSULE PO SCH (09:48)
[2020-12-21] MEDS: TAMSULOSIN 0.4 MG CAP PO SCH (09:48)
[2020-12-21] MEDS: ANALGESIC BALM CRM 3OZ TOP PRN ×2 (09:48→21:54)
[2020-12-21] MEDS: ASPIRIN 81MG ENTERIC TABLET PO SCH (09:48)
[2020-12-21] MEDS: VITAMIN D (CHOLECALCIFEROL) 400 INTERNATIONAL UNITS TAB PO SCH (09:48)
[2020-12-21] MEDS: lamoTRIgine 100MG TAB PO SCH (09:48)
[2020-12-21] MEDS: oxyBUTYnin 5 MG TAB PO SCH (09:48)
[2020-12-21] MEDS: OMEPRAZOLE 20 MG CAP PO SCH (09:49)
[2020-12-21] MEDS: BENZTROPINE 1 MG TAB PO SCH ×2 (09:49→20:32)
[2020-12-21] MEDS: DOCUSATE SODIUM 100MG CAPSULE PO SCH ×2 (09:49→20:31)
[2020-12-21 16:01] VITALS: BP 150/93
[2020-12-21] MEDS: traZODone 100 MG TAB PO SCH (20:31)
[2020-12-21] MEDS: ATORVASTATIN 20 MG TAB PO SCH (20:31)
[2020-12-21] MEDS: QUEtiapine FUMARATE 100 MG TAB PO SCH (20:31)
[2020-12-21] MEDS: MONTELUKAST 10 MG TAB PO SCH (20:32)
[2020-12-21] MEDS: CYCLOBENZAPRINE 10MG TABLET PO SCH (20:32)
[2020-12-21] MEDS: haloperidoL 5 MG TAB PO SCH (20:32)
[2020-12-22] MEDS: LEVOTHYROXINE 100MCG TABLET (0.1MG) PO SCH (05:06)
[2020-12-22] MEDS: IBUPROFEN 800 MG TAB PO SCH ×3 (05:07→21:19)
[2020-12-22 06:08] VITALS: BP 147/90
[2020-12-22] MEDS: metFORMIN (GLUCOPHAGE) 1000 MG TABLET PO SCH ×2 (07:20→17:04)
[2020-12-22] MEDS: OMEGA-3 1000MG CAPSULE PO SCH (09:35)
[2020-12-22] MEDS: DOCUSATE SODIUM 100MG CAPSULE PO SCH ×2 (09:35→20:33)
[2020-12-22] MEDS: ASPIRIN 81MG ENTERIC TABLET PO SCH (09:35)
[2020-12-22] MEDS: atenoloL 25 MG TAB PO SCH ×2 (09:35→20:34)
[2020-12-22] MEDS: OMEPRAZOLE 20 MG CAP PO SCH (09:35)
[2020-12-22] MEDS: FLUTICASONE PROP 0.05% NASAL SPRAY 16 GM (FLONASE) NARES SCH (09:35)
[2020-12-22] MEDS: lamoTRIgine 100MG TAB PO SCH (09:35)
[2020-12-22] MEDS: oxyBUTYnin 5 MG TAB PO SCH (09:35)
[2020-12-22] MEDS: TAMSULOSIN 0.4 MG CAP PO SCH (09:35)
[2020-12-22] MEDS: BENZTROPINE 1 MG TAB PO SCH ×2 (09:36→20:33)
[2020-12-22] MEDS: VITAMIN D (CHOLECALCIFEROL) 400 INTERNATIONAL UNITS TAB PO SCH (09:36)
[2020-12-22] MEDS: ANALGESIC BALM CRM 3OZ TOP PRN ×2 (14:19→21:19)
[2020-12-22 16:35] VITALS: BP 145/90
[2020-12-22 20:12] VITALS: BP 145/90
[2020-12-22] MEDS: CYCLOBENZAPRINE 10MG TABLET PO SCH (20:33)
[2020-12-22] MEDS: MONTELUKAST 10 MG TAB PO SCH (20:33)
[2020-12-22] MEDS: ATORVASTATIN 20 MG TAB PO SCH (20:34)
[2020-12-22] MEDS: QUEtiapine FUMARATE 100 MG TAB PO SCH (20:34)
[2020-12-22] MEDS: haloperidoL 5 MG TAB PO SCH (20:34)
[2020-12-22] MEDS: traZODone 100 MG TAB PO SCH (20:34)
[2020-12-22] MEDS: ACETAMINOPHEN TAB 650MG DOSE (2X325MG) PO PRN (22:54)
[2020-12-23] MEDS: LEVOTHYROXINE 100MCG TABLET (0.1MG) PO SCH (05:43)
[2020-12-23] MEDS: IBUPROFEN 800 MG TAB PO SCH ×3 (05:43→22:20)
[2020-12-23 06:16] VITALS: BP 149/63
[2020-12-23] MEDS: metFORMIN (GLUCOPHAGE) 1000 MG TABLET PO SCH ×2 (07:51→17:55)
[2020-12-23] MEDS: FLUTICASONE PROP 0.05% NASAL SPRAY 16 GM (FLONASE) NARES SCH (08:46)
[2020-12-23] MEDS: VITAMIN D (CHOLECALCIFEROL) 400 INTERNATIONAL UNITS TAB PO SCH (08:47)
[2020-12-23] MEDS: lamoTRIgine 100MG TAB PO SCH (08:47)
[2020-12-23] MEDS: ASPIRIN 81MG ENTERIC TABLET PO SCH (08:47)
[2020-12-23] MEDS: OMEGA-3 1000MG CAPSULE PO SCH (08:47)
[2020-12-23] MEDS: BENZTROPINE 1 MG TAB PO SCH ×2 (08:47→21:24)
[2020-12-23] MEDS: TAMSULOSIN 0.4 MG CAP PO SCH (08:47)
[2020-12-23] MEDS: OMEPRAZOLE 20 MG CAP PO SCH (08:47)
[2020-12-23] MEDS: DOCUSATE SODIUM 100MG CAPSULE PO SCH ×2 (08:47→21:24)
[2020-12-23] MEDS: oxyBUTYnin 5 MG TAB PO SCH (08:47)
[2020-12-23] MEDS: atenoloL 25 MG TAB PO SCH ×2 (08:48→21:30)
[2020-12-23] MEDS: ANALGESIC BALM CRM 3OZ TOP PRN (15:24)
[2020-12-23 16:46] VITALS: BP 151/81
[2020-12-23] MEDS: QUEtiapine FUMARATE 100 MG TAB PO SCH (21:24)
[2020-12-23] MEDS: ATORVASTATIN 20 MG TAB PO SCH (21:24)
[2020-12-23] MEDS: haloperidoL 5 MG TAB PO SCH (21:24)
[2020-12-23] MEDS: traZODone 100 MG TAB PO SCH (21:24)
[2020-12-23] MEDS: MONTELUKAST 10 MG TAB PO SCH (21:24)
[2020-12-23] MEDS: CYCLOBENZAPRINE 10MG TABLET PO SCH (21:24)
[2020-12-24] MEDS: ACETAMINOPHEN TAB 650MG DOSE (2X325MG) PO PRN ×2 (05:05→12:27)
[2020-12-24] MEDS: ANALGESIC BALM CRM 3OZ TOP PRN ×2 (05:05→22:04)
[2020-12-24] MEDS: LEVOTHYROXINE 100MCG TABLET (0.1MG) PO SCH (05:39)
[2020-12-24] MEDS: IBUPROFEN 800 MG TAB PO SCH ×3 (05:40→21:19)
[2020-12-24 06:49] VITALS: BP 168/73
[2020-12-24] MEDS: FLUTICASONE PROP 0.05% NASAL SPRAY 16 GM (FLONASE) NARES SCH (09:37)
[2020-12-24] MEDS: oxyBUTYnin 5 MG TAB PO SCH (09:40)
[2020-12-24] MEDS: VITAMIN D (CHOLECALCIFEROL) 400 INTERNATIONAL UNITS TAB PO SCH (09:40)
[2020-12-24] MEDS: OMEGA-3 1000MG CAPSULE PO SCH (09:40)
[2020-12-24] MEDS: metFORMIN (GLUCOPHAGE) 1000 MG TABLET PO SCH ×2 (09:41→17:45)
[2020-12-24] MEDS: OMEPRAZOLE 20 MG CAP PO SCH (09:41)
[2020-12-24] MEDS: TAMSULOSIN 0.4 MG CAP PO SCH (09:41)
[2020-12-24] MEDS: ASPIRIN 81MG ENTERIC TABLET PO SCH (09:41)
[2020-12-24] MEDS: DOCUSATE SODIUM 100MG CAPSULE PO SCH ×2 (09:41→21:14)
[2020-12-24] MEDS: lamoTRIgine 100MG TAB PO SCH (09:41)
[2020-12-24] MEDS: BENZTROPINE 1 MG TAB PO SCH ×2 (09:42→21:17)
[2020-12-24] MEDS: atenoloL 25 MG TAB PO SCH ×2 (09:42→21:18)
[2020-12-24] MEDS: diphenhydrAMINE 50MG CAP PO PRN (12:27)
[2020-12-24] MEDS: LORazepam 2 MG TAB PO PRN (12:27)
[2020-12-24 15:32] LABS: CK-MB VALUE MASS 3.7 NG/ML (<3.6); MB/CK RELATIVE INDEX 2.45 (< OR =4)
--- NOTE | 2020-12-24 17:45 | MHIPNPDOC ---
[facility] Progress Note Progress Note DATE OF SERVICE: 12/24/20 History of Present Illness HISTORY OF THE PRESENT ILLNESS: Patient is a 50 -year-old , male, who [has extensive history of bipolar disorder since his early 20s with numerous previous inpatient treatment. He has been living at a [facility] since his discharge from [facility] in January 2010. Patient was brought to emergency room from his prison after he became extremely delusional disorganized and paranoid. Patient has been maintained on long- acting Haldol injection and Lamictal and remained marginally stable but in the past few weeks he has been showing decreasing sleep and increasing psychomotor a gitation. On the day of his admission patient was becoming grossly disorganized and paranoid and refusing his regular medications and reportedly ran out of his prison and was running away claiming that he was going to an emergency room. He was brought to emergency room by police and ambulance and admitted on 939 status. On the unit patient was very pressured and agitated required extra medications of Haldol and Ativan. On examination with MD patient is a little subdued and is in better control but his speech is very pressured flighty and not making much sense. He does not know why he is here but admits that he has not been sleeping but other than that he is denying any command hallucination and denies any suicidal or homicidal thoughts but not able to give any coherent rational account of the events leading to his admission. He denies any substance abuse claims that he has been taking his medications but does not know what medicine he was taking. Again his grossly disorganized and flighty and grossly manic.]. Psychiatric Review of Systems Kristin (4 or more days of): irritable/elevated mood, decreased need for sleep, talkativity, pressured, flight of ideas Psychosis: delusions, paranoia PTSD: denies Anxiety: denies Past Psychiatric History Previous Psychiatric Diagnosis: . Bipolar disorder Previous Psychiatric Admissions: . Numerous admissions since early 20s last [facility] admission was February 2019 and he was transferred to [facility] and discharged in January 2010 Suicide Attempts: . Past history of depression and suicidal attempts Psychiatric Follow-up: . In active outpatient follow-up Psychiatric medications: . Haldol Decanoate injection and Lamictal Past Medical History Medical Problems DM HTN CAD and BPH Head Injury: Yes (Past history in high school days) Seizures: No Hospitalizations: No Surgeries: Yes Family Medical/Psychiatric HX Medical Problems Noncontributory Psychiatric Disorders: Yes (Patient's mother has bipolar disorder and is taking lithium and his grandmother has bipolar disorder and maternal aunt has committed to suicide) Addiction: No Suicide Attemps/Completions: Yes (Maternal aunt) Addiction History denies Social History Childhood: Uneventful childhood. Abuse/Trauma:[Patient denies any]. Current Living Situation: [Currently lives in a [facility]]. Education: 2-year college . Employment: [On SSD]. Social Support: Close to his mother. Legal: [No known legal history]. Marital: [Single]. HISTORY: Patient a 50 y/o man with a past history of bipolar disorder and numerous admissions since his 's. Was d/c from [facility] Jan 2010 and living in [facility] since. Was admitted on this occasion due to disorganized and paranoid behavior. C Interval: Charts reviewed, patient continues to be concrete, internally occupied, appears less sedated in the morning and more in the social media than on previous days, was spending time by the telephone. VITAL SIGNS: See below. NEW TEST RESULTS: None. CURRENT MEDICATIONS: See below. MENTAL STATUS EXAMINATION: Patient is a 50-yo Language skills are poor. Thought processes including: Remains disorganized, tangential at times. Thought content: Denies Suicidal thoughts, intent or plan. Abstract reasoning, and computation: unable to fully assess. Description of associations: concrete Description of abnormal or psychotic thoughts: AH, states he hears voices from his childhood, not scary. Judgment: poor Insight: poor Orientation: to person, place, time Recent and remote memory: poor Attention span and concentration: Poor, distractible Language: Mauritanian Fund of knowledge: Below average Mood: "All right" Affect: No change, or psychotic DIAGNOSES: 1. Bipolar disorder, mixed episode per hx 2. R/O schizoaffective disorder, bipolar type VITAL SIGNS: See below. NEW TEST RESULTS: CPK significantly elevated revealing kidney damage. CURRENT MEDICATIONS: See below. MENTAL STATUS EXAMINATION: Patient is a 50-year old male, who is suffering from a chronic mental illness apparently bipolar manic. Speech: Is rapid Language skills are intact. Thought processes including: Loose associations tangential thought. Thought content: As above. Abstract reasoning, and computation: Poor. Description of associations: Physical complaints poor answering of questions or loosely present. Description of abnormal or psychotic thoughts: Mostly characterized by rapid speech and loose associations. Judgment: Poor. Insight: Poor. Orientation: X3. Recent and remote memory: Intact. Attention span and concentration: Poor. Language: As above. Fund of knowledge: Full. Mood: Elevated. Affect: Bright. DIAGNOSES: 1. Bipolar disorder mixed . . ASSESSMENT: Poorly controlled manic condition with numerous previous medications tried and failed now presently on Haldol and Haldol decannulate MANAGEMENT PLAN: Will reevaluate medical treatment. TIME SPENT: 45 minutes. Vital Signs Vital Signs Date Time Temp Pulse Resp B/P (MAP) Pulse Ox O2 Delivery O2 Flow Rate FiO2 12/24/20 09:42 67 168/73 12/24/20 06:49 97.5 20 95 Room Air Laboratory Data 24H Labs Laboratory Tests 2 12/24/20 14:50: Total Creatine Kinase 151, Creatine Kinase MB 3.7H, Creatine Kinase MB Relative Index 2.45 Current Medications Current Medications Medications (Trade) Dose Ordered Sig/Kailey Route PRN Reason Start Time Stop Time Status Last Admin Dose Admin Acetaminophen (Tylenol Tab) 650 mg Q6HP PRN PO FEVER 12/01/20 16:05 12/24/20 12:27 Acetaminophen (Tylenol Tab) 650 mg Q6HP PRN PO HEADACHE or MILD DISCOMFORT 11/18/20 12:40 11/24/20 01:45 DC 11/23/20 03:09 Al Hydrox/Mg Hydrox/Simethicone (Mylanta) 30 ml Q4HP PRN PO HEARTBURN/INDIGESTION 11/18/20 12:40 11/24/20 01:45 DC 11/23/20 22:34 Amlodipine Besylate (Norvasc) 10 mg DAILY PO 11/19/20 09:00 11/22/20 08:55 DC 11/22/20 08:20 Aspirin (Ecotrin) 81 mg DAILY PO 11/24/20 09:00 12/24/20 09:41 Aspirin (Ecotrin) 81 mg QAM PO 11/22/20 09:00 11/24/20 01:45 DC 11/23/20 07:58 Atenolol (Tenormin) 25 mg BID PO 11/22/20 09:00 11/22/20 12:53 DC 11/22/20 09:51 Atenolol (Tenormin) 25 mg BID PO 11/24/20 09:00 12/24/20 09:42 Atenolol (Tenormin) 50 mg BID PO 11/22/20 21:00 11/24/20 00:13 DC 11/23/20 21:16 Atorvastatin Calcium (Lipitor) 40 mg QHS PO 11/18/20 21:00 11/24/20 01:45 DC 11/23/20 21:16 Atorvastatin Calcium (Lipitor) 40 mg QHS PO 11/24/20 21:00 12/23/20 21:24 Benztropine Mesylate (Cogentin) 1 mg BID PO 11/18/20 09:00 11/24/20 01:45 DC 11/23/20 21:15 Benztropine Mesylate (Cogentin) 1 mg BID PO 11/24/20 09:00 12/24/20 09:42 Cyclobenzaprine HCl (Flexeril) 10 mg QHS PO 11/20/20 21:00 11/24/20 01:45 DC 11/23/20 21:16 Cyclobenzaprine HCl (Flexeril) 10 mg QHS PO 11/24/20 21:00 12/23/20 21:24 Diphenhydramine HCl (Benadryl) 50 mg Q8HP PRN PO AGITATION 11/19/20 09:10 11/24/20 01:45 DC 11/23/20 17:51 Diphenhydramine HCl (Benadryl) 50 mg Q8HP PRN PO AGITATION 11/24/20 10:55 12/24/20 12:27 Diphenhydramine HCl (Benadryl) 50 mg STAT STAT IM 11/26/20 02:41 11/26/20 02:44 DC 11/26/20 02:53 Diphenhydramine HCl (Benadryl) 50 mg STAT STAT PO 11/19/20 06:48 11/19/20 06:50 DC 11/19/20 07:06 Docusate Sodium (Colace) 100 mg BID PO 11/18/20 21:00 11/24/20 01:45 DC 11/23/20 21:15 Docusate Sodium (Colace) 100 mg BID PO 11/24/20 09:00 12/24/20 09:41 Fish Oil ([place]-3 (1000mg)) 1 cap DAILY PO 12/06/20 09:00 12/24/20 09:40 Fluticasone Propionate (Flonase 0.05% Nasal [place]) 2 spray DAILY NARES 11/19/20 09:00 11/24/20 01:45 DC 11/23/20 08:01 Fluticasone Propionate (Flonase 0.05% Nasal [place]) 2 spray DAILY NARES 11/24/20 09:00 12/24/20 09:37 Haloperidol (Haldol) 10 mg Q8HP PRN PO AGITATION 11/19/20 09:10 11/24/20 01:45 DC 11/23/20 23:21 Haloperidol (Haldol) 10 mg Q8HP PRN PO AGITATION 11/24/20 10:55 12/24/20 12:27 Haloperidol (Haldol) 10 mg QHS PO 11/19/20 21:00 11/19/20 09:48 DC Haloperidol (Haldol) 10 mg QHS PO 11/19/20 21:00 11/24/20 01:45 DC 11/23/20 21:16 Haloperidol (Haldol) 10 mg QHS PO 11/24/20 21:00 12/11/20 10:47 DC 12/10/20 21:45 Haloperidol (Haldol) 10 mg QHS PO 12/19/20 21:00 12/23/20 21:24 Haloperidol (Haldol) 10 mg STAT STAT IM 11/26/20 02:41 11/26/20 02:44 DC 11/26/20 02:52 Haloperidol (Haldol) 10 mg STAT STAT PO 11/19/20 06:48 11/19/20 06:50 DC 11/19/20 07:06 Haloperidol (Haldol) 15 mg QHS PO 12/11/20 21:00 12/19/20 10:34 DC 12/18/20 20:05 Haloperidol Decanoate (Haldol Decanoate) 100 mg Q28D IM 11/28/20 12:00 11/28/20 13:26 Home Med (Med Rec Complete!) ASDIRECTED XX 11/17/20 23:25 11/17/20 23:24 DC Ibuprofen (Advil) 800 mg Q8H PO 12/11/20 14:00 12/24/20 05:40 Lamotrigine (LaMICtal) 200 mg DAILY PO 11/18/20 09:00 11/24/20 01:45 DC 11/23/20 08:00 Lamotrigine (LaMICtal) 200 mg DAILY PO 11/24/20 09:00 12/24/20 09:41 Levothyroxine Sodium (Synthroid) 100 mcg DAILY@06 PO 11/24/20 06:00 12/24/20 05:39 Levothyroxine Sodium (Synthroid) 100 mcg DAILY@0600 PO 11/19/20 06:00 11/24/20 01:45 DC 11/23/20 05:05 Lorazepam (Ativan) 2 mg Q8HP PRN PO ANXIETY/AGITATION 12/02/20 12:05 12/24/20 12:27 Lorazepam (Ativan) 2 mg Q8HP PRN PO AGITATION 11/19/20 09:10 11/24/20 01:45 DC 11/23/20 23:21 Lorazepam (Ativan) 2 mg Q8HP PRN PO AGITATION 11/24/20 10:55 12/01/20 10:54 DC 11/30/20 22:04 Lorazepam (Ativan) 2 mg STAT STAT IM 11/26/20 02:41 11/26/20 02:44 DC 11/26/20 02:53 Lorazepam (Ativan) 2 mg STAT STAT PO 11/19/20 06:48 11/19/20 06:50 DC 11/19/20 07:06 Losartan Potassium (Cozaar) 50 mg DAILY PO 11/19/20 09:00 11/22/20 08:55 DC 11/22/20 08:20 Magnesium Hydroxide (Milk Of Magnesia) 30 ml DAILYPRN PRN PO CONSTIPATION 11/18/20 12:40 11/24/20 01:45 DC Magnesium Hydroxide (Milk Of Magnesia) 30 ml DAILYPRN PRN PO CONSTIPATION 11/24/20 10:55 Menthol/Methyl Salicylate (Bengay Cream) Allow patient to apply t... BID PRN TOP MILD PAIN (PS 1-4) 12/19/20 11:40 12/24/20 05:05 Metformin HCl (Glucophage) 1,000 mg BID@08,18 PO 11/24/20 08:00 12/24/20 09:41 Metformin HCl (Glucophage) 1,000 mg BID@0800,1800 PO 11/18/20 18:00 11/24/20 01:45 DC 11/23/20 17:34 Miscellaneous (Unresolved Clarification Entry) SEE LABEL COMMENTS DAILY XX 11/30/20 09:00 12/02/20 09:53 DC Miscellaneous (Unresolved Clarification Entry) SEE LABEL COMMENTS DAILY XX 12/02/20 09:00 12/02/20 12:12 DC Miscellaneous (Unresolved Clarification Entry) SEE LABEL COMMENTS DAILY XX 12/13/20 09:00 12/15/20 10:07 DC Miscellaneous (Unresolved Clarification Entry) SEE LABEL COMMENTS DAILY XX 12/22/20 09:00 12/24/20 14:02 DC Montelukast Sodium (Singulair) 10 mg QHS PO 11/18/20 21:00 11/24/20 01:45 DC 11/23/20 21:15 Montelukast Sodium (Singulair) 10 mg QHS PO 11/24/20 21:00 12/23/20 21:24 Omeprazole (PriLOSEC) 20 mg DAILY PO 12/11/20 09:00 12/24/20 09:41 Oxybutynin Chloride (Ditropan) 5 mg DAILY PO 11/19/20 09:00 11/24/20 01:45 DC 11/23/20 08:00 Oxybutynin Chloride (Ditropan) 5 mg DAILY PO 11/24/20 09:00 12/24/20 09:40 Propranolol HCl (Inderal) 10 mg BID PO 11/18/20 21:00 11/22/20 08:55 DC 11/22/20 08:20 Quetiapine Fumarate (SEROquel) 200 mg QHS PO 11/19/20 21:00 11/24/20 01:45 DC 11/23/20 21:15 Quetiapine Fumarate (SEROquel) 200 mg QHS PO 11/24/20 21:00 12/04/20 08:57 DC 12/03/20 20:20 Quetiapine Fumarate (SEROquel) 300 mg QHS PO 12/04/20 21:00 12/23/20 21:24 Tamsulosin HCl (Flomax) 0.8 mg DAILY PO 11/19/20 09:00 11/24/20 01:45 [place] 11/23/20 08:01 Tamsulosin HCl (Flomax) 0.8 mg DAILY PO 11/24/20 09:00 12/24/20 09:41 Trazodone HCl (Desyrel) 100 mg QPM PO 11/18/20 21:00 11/24/20 01:45 DC 11/23/20 21:16 Trazodone HCl (Desyrel) 100 mg QPM PO 11/24/20 21:00 12/23/20 21:24 Vitamin D (Vitamin D) 400 units DAILY PO 11/19/20 09:00 11/24/20 01:45 [place] 11/23/20 08:00 Vitamin D (Vitamin D) 400 units DAILY PO 11/24/20 09:00 12/24/20 09:40 Allergies Coded Allergies: Penicillins (Verified Allergy, Intermediate, rash, 01/02/19) latex (Verified Allergy, Intermediate, rash, 12/13/19) divalproex sodium (Verified Allergy, Unknown, 01/02/19) JEREMIAH ANDERSON MD Dec 24, 2020 17:45
[2020-12-24 17:57] VITALS: BP 138/82
[2020-12-24] MEDS: ATORVASTATIN 20 MG TAB PO SCH (21:14)
[2020-12-24] MEDS: MONTELUKAST 10 MG TAB PO SCH (21:14)
[2020-12-24] MEDS: haloperidoL 5 MG TAB PO SCH (21:15)
[2020-12-24] MEDS: QUEtiapine FUMARATE 100 MG TAB PO SCH (21:16)
[2020-12-24] MEDS: CYCLOBENZAPRINE 10MG TABLET PO SCH (21:16)
[2020-12-24] MEDS: traZODone 100 MG TAB PO SCH (21:17)
[2020-12-25] MEDS: LEVOTHYROXINE 100MCG TABLET (0.1MG) PO SCH (06:16)
[2020-12-25] MEDS: IBUPROFEN 800 MG TAB PO SCH ×3 (06:17→22:53)
[2020-12-25 06:45] VITALS: BP 136/92
[2020-12-25] MEDS: lamoTRIgine 100MG TAB PO SCH (09:45)
[2020-12-25] MEDS: TAMSULOSIN 0.4 MG CAP PO SCH (09:45)
[2020-12-25] MEDS: FLUTICASONE PROP 0.05% NASAL SPRAY 16 GM (FLONASE) NARES SCH (09:45)
[2020-12-25] MEDS: DOCUSATE SODIUM 100MG CAPSULE PO SCH ×2 (09:46→20:24)
[2020-12-25] MEDS: oxyBUTYnin 5 MG TAB PO SCH (09:46)
[2020-12-25] MEDS: OMEPRAZOLE 20 MG CAP PO SCH (09:46)
[2020-12-25] MEDS: BENZTROPINE 1 MG TAB PO SCH ×2 (09:46→20:24)
[2020-12-25] MEDS: atenoloL 25 MG TAB PO SCH ×2 (09:46→20:25)
[2020-12-25] MEDS: OMEGA-3 1000MG CAPSULE PO SCH (09:46)
[2020-12-25] MEDS: VITAMIN D (CHOLECALCIFEROL) 400 INTERNATIONAL UNITS TAB PO SCH (09:46)
[2020-12-25] MEDS: ASPIRIN 81MG ENTERIC TABLET PO SCH (09:46)
[2020-12-25] MEDS: ANALGESIC BALM CRM 3OZ TOP PRN (09:52)
[2020-12-25] MEDS: metFORMIN (GLUCOPHAGE) 1000 MG TABLET PO SCH ×2 (09:58→17:35)
[2020-12-25] MEDS ORDERED: HALOPERIDOL DECANOATE 100 MG/ML VIAL (J1631) IM ONE (12:00)
--- NOTE | 2020-12-25 14:24 | MHIPNPDOC ---
[facility] Progress Note Progress Note DATE OF SERVICE: 12/25/20 HISTORY OF THE PRESENT ILLNESS: Patient is a 50 -year-old , male, who [has extensive history of bipolar disorder since his early 20s with numerous pr evious inpatient treatment. He has been living at a [facility] skilled nursing since his discharge from [facility] in January 2010. Patient was brought to emergency room from his skilled nursing after he became extremely delusional disorganized and paranoid. Patient has been maintained on long- acting Haldol injection and Lamictal and remained marginally stable but in the past few weeks he has been showing decreasing sleep and increasing psychomotor agitation. On the day of his admission patient was becoming grossly disorganized and paranoid and refusing his regular medications and reportedly ran out of his skilled nursing and was running away claiming that he was going to an emergency room. He was brought to emergency room by police and ambulance and admitted on 939 status. On the unit patient was very pressured and agitated required extra medications of Haldol and Ativan. On examination with MD patient is a little subdued and is in better control but his speech is very pressured flighty and not making much sense. He does not know why he is here but admits that he has not been sleeping but other than that he is denying any command hallucination and denies any suicidal or homicidal thoughts but not able to give any coherent rational account of the events leading to his admission. He denies any substance abuse claims that he has been taking his medications but does not know what medicine he was taking. Again he was grossly disorganized and flighty and grossly manic.]. VITAL SIGNS: See below. NEW TEST RESULTS: CPK has returned to normal CURRENT MEDICATIONS: See below. MENTAL STATUS EXAMINATION: Patient is a 50-year old male, who is slightly less manic today. Speech: Is still rapid Language skills are . Thought processes including: Still has loose associations. Thought content: Loose associations and rapid thought. Abstract reasoning, and computation: Poor abstraction. Description of associations: Loose. Description of abnormal or psychotic thoughts: As above. Judgment: Poor. Insight: Poor. Orientation: X3. Recent and remote memory: Intact. Attention span and concentration: Poor. Language: Rapid but no disturbance in language. Fund of knowledge: Limited. Mood: Euthymic. Affect: Neutral. DIAGNOSES: 1. Bipolar disorder manic type. 2. None. 3. None. ASSESSMENT: Patient received decanoate shot yesterday seems slightly improved today will not change any medications at this time MANAGEMENT PLAN: As above. TIME SPENT: 35 minutes. Vital Signs Vital Signs Date Time Temp Pulse Resp B/P (MAP) Pulse Ox O2 Delivery O2 Flow Rate FiO2 12/25/20 09:46 67 136/92 12/25/20 06:45 97.2 14 96 Room Air Laboratory Data 24H Labs Laboratory Tests 2 12/24/20 14:50: Total Creatine Kinase 151, Creatine Kinase MB 3.7H, Creatine Kinase MB Relative Index 2.45 Current Medications Current Medications Medications (Trade) Dose Ordered Sig/Kailey Route PRN Reason Start Time Stop Time Status Last Admin Dose Admin Acetaminophen (Tylenol Tab) 650 mg Q6HP PRN PO FEVER 12/01/20 16:05 12/24/20 12:27 Acetaminophen (Tylenol Tab) 650 mg Q6HP PRN PO HEADACHE or MILD DISCOMFORT 11/18/20 12:40 11/24/20 01:45 DC 11/23/20 03:09 Al Hydrox/Mg Hydrox/Simethicone (Mylanta) 30 ml Q4HP PRN PO HEARTBURN/INDIGESTION 11/18/20 12:40 11/24/20 01:45 DC 11/23/20 22:34 Amlodipine Besylate (Norvasc) 10 mg DAILY PO 11/19/20 09:00 11/22/20 08:55 DC 11/22/20 08:20 Aspirin (Ecotrin) 81 mg DAILY PO 11/24/20 09:00 12/25/20 09:46 Aspirin (Ecotrin) 81 mg QAM PO 11/22/20 09:00 11/24/20 01:45 DC 11/23/20 07:58 Atenolol (Tenormin) 25 mg BID PO 11/22/20 09:00 11/22/20 12:53 DC 11/22/20 09:51 Atenolol (Tenormin) 25 mg BID PO 11/24/20 09:00 12/25/20 09:46 Atenolol (Tenormin) 50 mg BID PO 11/22/20 21:00 11/24/20 00:13 DC 11/23/20 21:16 Atorvastatin Calcium (Lipitor) 40 mg QHS PO 11/18/20 21:00 11/24/20 01:45 DC 11/23/20 21:16 Atorvastatin Calcium (Lipitor) 40 mg QHS PO 11/24/20 21:00 12/24/20 21:14 Benztropine Mesylate (Cogentin) 1 mg BID PO 11/18/20 09:00 11/24/20 01:45 DC 11/23/20 21:15 Benztropine Mesylate (Cogentin) 1 mg BID PO 11/24/20 09:00 12/25/20 09:46 Cyclobenzaprine HCl (Flexeril) 10 mg QHS PO 11/20/20 21:00 11/24/20 01:45 DC 11/23/20 21:16 Cyclobenzaprine HCl (Flexeril) 10 mg QHS PO 11/24/20 21:00 12/24/20 21:16 Diphenhydramine HCl (Benadryl) 50 mg Q8HP PRN PO AGITATION 11/19/20 09:10 11/24/20 01:45 DC 11/23/20 17:51 Diphenhydramine HCl (Benadryl) 50 mg Q8HP PRN PO AGITATION 11/24/20 10:55 12/24/20 12:27 Diphenhydramine HCl (Benadryl) 50 mg STAT STAT IM 11/26/20 02:41 11/26/20 02:44 DC 11/26/20 02:53 Diphenhydramine HCl (Benadryl) 50 mg STAT STAT PO 11/19/20 06:48 11/19/20 06:50 DC 11/19/20 07:06 Docusate Sodium (Colace) 100 mg BID PO 11/18/20 21:00 11/24/20 01:45 DC 11/23/20 21:15 Docusate Sodium (Colace) 100 mg BID PO 11/24/20 09:00 12/25/20 09:46 Fish Oil ([place]-3 (1000mg)) 1 cap DAILY PO 12/06/20 09:00 12/25/20 09:46 Fluticasone Propionate (Flonase 0.05% Nasal [place]) 2 spray DAILY NARES 11/19/20 09:00 11/24/20 01:45 DC 11/23/20 08:01 Fluticasone Propionate (Flonase 0.05% Nasal [place]) 2 spray DAILY NARES 11/24/20 09:00 12/25/20 09:45 Haloperidol (Haldol) 10 mg Q8HP PRN PO AGITATION 11/19/20 09:10 11/24/20 01:45 DC 11/23/20 23:21 Haloperidol (Haldol) 10 mg Q8HP PRN PO AGITATION 11/24/20 10:55 12/24/20 12:27 Haloperidol (Haldol) 10 mg QHS PO 11/19/20 21:00 11/19/20 09:48 DC Haloperidol (Haldol) 10 mg QHS PO 11/19/20 21:00 11/24/20 01:45 DC 11/23/20 21:16 Haloperidol (Haldol) 10 mg QHS PO 11/24/20 21:00 12/11/20 10:47 DC 12/10/20 21:45 Haloperidol (Haldol) 10 mg QHS PO 12/19/20 21:00 12/24/20 21:15 Haloperidol (Haldol) 10 mg STAT STAT IM 11/26/20 02:41 11/26/20 02:44 DC 11/26/20 02:52 Haloperidol (Haldol) 10 mg STAT STAT PO 11/19/20 06:48 11/19/20 06:50 DC 11/19/20 07:06 Haloperidol (Haldol) 15 mg QHS PO 12/11/20 21:00 12/19/20 10:34 DC 12/18/20 20:05 Haloperidol Decanoate (Haldol Decanoate) 100 mg Q28D IM 11/28/20 12:00 11/28/20 13:26 Home Med (Med Rec Complete!) ASDIRECTED XX 11/17/20 23:25 11/17/20 23:24 DC Ibuprofen (Advil) 800 mg Q8H PO 12/11/20 14:00 12/25/20 13:49 Lamotrigine (LaMICtal) 200 mg DAILY PO 11/18/20 09:00 11/24/20 01:45 DC 11/23/20 08:00 Lamotrigine (LaMICtal) 200 mg DAILY PO 11/24/20 09:00 12/25/20 09:45 Levothyroxine Sodium (Synthroid) 100 mcg DAILY@06 PO 11/24/20 06:00 12/25/20 06:16 Levothyroxine Sodium (Synthroid) 100 mcg DAILY@0600 PO 11/19/20 06:00 11/24/20 01:45 DC 11/23/20 05:05 Lorazepam (Ativan) 2 mg Q8HP PRN PO ANXIETY/AGITATION 12/02/20 12:05 12/24/20 12:27 Lorazepam (Ativan) 2 mg Q8HP PRN PO AGITATION 11/19/20 09:10 11/24/20 01:45 DC 11/23/20 23:21 Lorazepam (Ativan) 2 mg Q8HP PRN PO AGITATION 11/24/20 10:55 12/01/20 10:54 DC 11/30/20 22:04 Lorazepam (Ativan) 2 mg STAT STAT IM 11/26/20 02:41 11/26/20 02:44 DC 11/26/20 02:53 Lorazepam (Ativan) 2 mg STAT STAT PO 11/19/20 06:48 11/19/20 06:50 DC 11/19/20 07:06 Losartan Potassium (Cozaar) 50 mg DAILY PO 11/19/20 09:00 11/22/20 08:55 DC 11/22/20 08:20 Magnesium Hydroxide (Milk Of Magnesia) 30 ml DAILYPRN PRN PO CONSTIPATION 11/18/20 12:40 11/24/20 01:45 DC Magnesium Hydroxide (Milk Of Magnesia) 30 ml DAILYPRN PRN PO CONSTIPATION 11/24/20 10:55 Menthol/Methyl Salicylate (Bengay Cream) Allow patient to apply t... BID PRN TOP MILD PAIN (PS 1-4) 12/19/20 11:40 12/25/20 09:52 Metformin HCl (Glucophage) 1,000 mg BID@08,18 PO 11/24/20 08:00 12/25/20 09:58 Metformin HCl (Glucophage) 1,000 mg BID@0800,1800 PO 11/18/20 18:00 11/24/20 01:45 DC 11/23/20 17:34 Miscellaneous (Unresolved Clarification Entry) SEE LABEL COMMENTS DAILY XX 11/30/20 09:00 12/02/20 09:53 DC Miscellaneous (Unresolved Clarification Entry) SEE LABEL COMMENTS DAILY XX 12/02/20 09:00 12/02/20 12:12 DC Miscellaneous (Unresolved Clarification Entry) SEE LABEL COMMENTS DAILY XX 12/13/20 09:00 12/15/20 10:07 DC Miscellaneous (Unresolved Clarification Entry) SEE LABEL COMMENTS DAILY XX 12/22/20 09:00 12/24/20 14:02 DC Montelukast Sodium (Singulair) 10 mg QHS PO 11/18/20 21:00 11/24/20 01:45 DC 11/23/20 21:15 Montelukast Sodium (Singulair) 10 mg QHS PO 11/24/20 21:00 12/24/20 21:14 Omeprazole (PriLOSEC) 20 mg DAILY PO 12/11/20 09:00 12/25/20 09:46 Oxybutynin Chloride (Ditropan) 5 mg DAILY PO 11/19/20 09:00 11/24/20 01:45 DC 11/23/20 08:00 Oxybutynin Chloride (Ditropan) 5 mg DAILY PO 11/24/20 09:00 12/25/20 09:46 Propranolol HCl (Inderal) 10 mg BID PO 11/18/20 21:00 11/22/20 08:55 DC 11/22/20 08:20 Quetiapine Fumarate (SEROquel) 200 mg QHS PO 11/19/20 21:00 11/24/20 01:45 DC 11/23/20 21:15 Quetiapine Fumarate (SEROquel) 200 mg QHS PO 11/24/20 21:00 12/04/20 08:57 DC 12/03/20 20:20 Quetiapine Fumarate (SEROquel) 300 mg QHS PO 12/04/20 21:00 12/24/20 21:16 Tamsulosin HCl (Flomax) 0.8 mg DAILY PO 11/19/20 09:00 11/24/20 01:45 DC 11/23/20 08:01 Tamsulosin HCl (Flomax) 0.8 mg DAILY PO 11/24/20 09:00 12/25/20 09:45 Trazodone HCl (Desyrel) 100 mg QPM PO 11/18/20 21:00 11/24/20 01:45 DC 11/23/20 21:16 Trazodone HCl (Desyrel) 100 mg QPM PO 11/24/20 21:00 12/24/20 21:17 Vitamin D (Vitamin D) 400 units DAILY PO 11/19/20 09:00 11/24/20 01:45 DC 11/23/20 08:00 Vitamin D (Vitamin D) 400 units DAILY PO 11/24/20 09:00 12/25/20 09:46 Allergies Coded Allergies: Penicillins (Verified Allergy, Intermediate, rash, 01/02/19) latex (Verified Allergy, Intermediate, rash, 12/13/19) divalproex sodium (Verified Allergy, Unknown, 01/02/19) JEREMIAH ANDERSON MD Dec 25, 2020 14:24
[2020-12-25] MEDS: CYCLOBENZAPRINE 10MG TABLET PO SCH (20:23)
[2020-12-25] MEDS: traZODone 100 MG TAB PO SCH (20:24)
[2020-12-25] MEDS: ATORVASTATIN 20 MG TAB PO SCH (20:24)
[2020-12-25] MEDS: haloperidoL 5 MG TAB PO SCH (20:24)
[2020-12-25] MEDS: MONTELUKAST 10 MG TAB PO SCH (20:24)
[2020-12-25] MEDS: QUEtiapine FUMARATE 100 MG TAB PO SCH (20:24)
[2020-12-26] MEDS: LEVOTHYROXINE 100MCG TABLET (0.1MG) PO SCH (05:48)
[2020-12-26] MEDS: IBUPROFEN 800 MG TAB PO SCH ×3 (05:48→23:10)
[2020-12-26 06:05] VITALS: BP 156/83
[2020-12-26] MEDS: metFORMIN (GLUCOPHAGE) 1000 MG TABLET PO SCH ×2 (08:42→17:54)
[2020-12-26] MEDS: oxyBUTYnin 5 MG TAB PO SCH (08:42)
[2020-12-26] MEDS: OMEGA-3 1000MG CAPSULE PO SCH (08:42)
[2020-12-26] MEDS: ASPIRIN 81MG ENTERIC TABLET PO SCH (08:42)
[2020-12-26] MEDS: DOCUSATE SODIUM 100MG CAPSULE PO SCH ×2 (08:42→20:50)
[2020-12-26] MEDS: OMEPRAZOLE 20 MG CAP PO SCH (08:42)
[2020-12-26] MEDS: FLUTICASONE PROP 0.05% NASAL SPRAY 16 GM (FLONASE) NARES SCH (08:42)
[2020-12-26] MEDS: BENZTROPINE 1 MG TAB PO SCH ×2 (08:42→20:51)
[2020-12-26] MEDS: VITAMIN D (CHOLECALCIFEROL) 400 INTERNATIONAL UNITS TAB PO SCH (08:43)
[2020-12-26] MEDS: atenoloL 25 MG TAB PO SCH ×2 (08:43→20:53)
[2020-12-26] MEDS: lamoTRIgine 100MG TAB PO SCH (08:43)
[2020-12-26] MEDS: TAMSULOSIN 0.4 MG CAP PO SCH (08:43)
[2020-12-26] MEDS: HALOPERIDOL DECANOATE 100 MG/ML VIAL (J1631) IM SCH (12:49)
[2020-12-26] MEDS: ANALGESIC BALM CRM 3OZ TOP PRN ×2 (12:49→23:06)
--- NOTE | 2020-12-26 14:17 | MHIPNPDOC ---
[facility] Progress Note Progress Note DATE OF SERVICE: 12/26/20 HISTORY OF THE PRESENT ILLNESS: Patient is a 50 -year-old , male, who [has extensive history of bipolar disorder since his early 20s with numerous pr evious inpatient treatment. He has been living at a [facility] fpc since his discharge from [facility] in January 2010. Patient was brought to emergency room from his fpc after he became extremely delusional disorganized and paranoid. Patient has been maintained on long- acting Haldol injection and Lamictal and remained marginally stable but in the past few weeks he has been showing decreasing sleep and increasing psychomotor agitation. On the day of his admission patient was becoming grossly disorganized and paranoid and refusing his regular medications and reportedly ran out of his fpc and was running away claiming that he was going to an emergency room. He was brought to emergency room by police and ambulance and admitted on 939 status. On the unit patient was very pressured and agitated required extra medications of Haldol and Ativan. On examination with MD patient is a little subdued and is in better control but his speech is very pressured flighty and not making much sense. He does not know why he is here but admits that he has not been sleeping but other than that he is denying any command hallucination and denies any suicidal or homicidal thoughts but not able to give any coherent rational account of the events leading to his admission. He denies any substance abuse claims that he has been taking his medications but does not know what medicine he was taking. Again he was grossly disorganized and flighty and grossly manic yesterday, today patient is less manic but states "I had covid infection 7 times and was told I cannot get it again." Patient complained that Haldol was making him sleepy but he appeared wide-awake and communicative. There is a limitation of what type of medications he can use. Placement at [place] is planned VITAL SIGNS: See below. NEW TEST RESULTS: None. CURRENT MEDICATIONS: See below. MENTAL STATUS EXAMINATION: Patient is a 50-year old male, who is suffering from a long history of bipolar disorder. Speech: Is rapid but less so. Language skills are intact. Thought processes including: Rapid with some loose associations and circumferential thinking Thought content: As above. Abstract reasoning, and computation: Poor abstraction. Description of associations: Loose associations. Description of abnormal or psychotic thoughts: Loose associations grandiosity. Judgment: Poor. Insight: Poor. Orientation: X3. Recent and remote memory: Distorted. Attention span and concentration: Poor. Language: Intact. Fund of knowledge: Reasonable. Mood: Elevated. Affect: Neutral. DIAGNOSES: 1. Bipolar disorder manic type. 2. None. 3. None. ASSESSMENT: Limitation of what medications can be used in this 50-year-old man. Placement at [place] was plan prior to my taking the case MANAGEMENT PLAN: As above. TIME SPENT: 35 minutes. Vital Signs Vital Signs Date Time Temp Pulse Resp B/P (MAP) Pulse Ox O2 Delivery O2 Flow Rate FiO2 12/26/20 08:43 89 148/89 12/26/20 06:05 97.6 18 96 Room Air Current Medications Current Medications Medications (Trade) Dose Ordered Sig/Kailey Route PRN Reason Start Time Stop Time Status Last Admin Dose Admin Acetaminophen (Tylenol Tab) 650 mg Q6HP PRN PO FEVER 12/01/20 16:05 12/24/20 12:27 Acetaminophen (Tylenol Tab) 650 mg Q6HP PRN PO HEADACHE or MILD DISCOMFORT 11/18/20 12:40 11/24/20 01:45 DC 11/23/20 03:09 Al Hydrox/Mg Hydrox/Simethicone (Mylanta) 30 ml Q4HP PRN PO HEARTBURN/INDIGESTION 11/18/20 12:40 11/24/20 01:45 DC 11/23/20 22:34 Amlodipine Besylate (Norvasc) 10 mg DAILY PO 11/19/20 09:00 11/22/20 08:55 DC 11/22/20 08:20 Aspirin (Ecotrin) 81 mg DAILY PO 11/24/20 09:00 12/26/20 08:42 Aspirin (Ecotrin) 81 mg QAM PO 11/22/20 09:00 11/24/20 01:45 DC 11/23/20 07:58 Atenolol (Tenormin) 25 mg BID PO 11/22/20 09:00 11/22/20 12:53 DC 11/22/20 09:51 Atenolol (Tenormin) 25 mg BID PO 11/24/20 09:00 12/26/20 08:43 Atenolol (Tenormin) 50 mg BID PO 11/22/20 21:00 11/24/20 00:13 DC 11/23/20 21:16 Atorvastatin Calcium (Lipitor) 40 mg QHS PO 11/18/20 21:00 11/24/20 01:45 DC 11/23/20 21:16 Atorvastatin Calcium (Lipitor) 40 mg QHS PO 11/24/20 21:00 12/25/20 20:24 Benztropine Mesylate (Cogentin) 1 mg BID PO 11/18/20 09:00 11/24/20 01:45 DC 11/23/20 21:15 Benztropine Mesylate (Cogentin) 1 mg BID PO 11/24/20 09:00 12/26/20 08:42 Cyclobenzaprine HCl (Flexeril) 10 mg QHS PO 11/20/20 21:00 11/24/20 01:45 DC 11/23/20 21:16 Cyclobenzaprine HCl (Flexeril) 10 mg QHS PO 11/24/20 21:00 12/25/20 20:23 Diphenhydramine HCl (Benadryl) 50 mg Q8HP PRN PO AGITATION 11/19/20 09:10 11/24/20 01:45 DC 11/23/20 17:51 Diphenhydramine HCl (Benadryl) 50 mg Q8HP PRN PO AGITATION 11/24/20 10:55 12/24/20 12:27 Diphenhydramine HCl (Benadryl) 50 mg STAT STAT IM 11/26/20 02:41 11/26/20 02:44 DC 11/26/20 02:53 Diphenhydramine HCl (Benadryl) 50 mg STAT STAT PO 11/19/20 06:48 11/19/20 06:50 DC 11/19/20 07:06 Docusate Sodium (Colace) 100 mg BID PO 11/18/20 21:00 11/24/20 01:45 DC 11/23/20 21:15 Docusate Sodium (Colace) 100 mg BID PO 11/24/20 09:00 12/26/20 08:42 Fish Oil ([place]-3 (1000mg)) 1 cap DAILY PO 12/06/20 09:00 12/26/20 08:42 Fluticasone Propionate (Flonase 0.05% Nasal [place]) 2 spray DAILY NARES 11/19/20 09:00 11/24/20 01:45 DC 11/23/20 08:01 Fluticasone Propionate (Flonase 0.05% Nasal [place]) 2 spray DAILY NARES 11/24/20 09:00 12/26/20 08:42 Haloperidol (Haldol) 10 mg Q8HP PRN PO AGITATION 11/19/20 09:10 11/24/20 01:45 DC 11/23/20 23:21 Haloperidol (Haldol) 10 mg Q8HP PRN PO AGITATION 11/24/20 10:55 12/24/20 12:27 Haloperidol (Haldol) 10 mg QHS PO 11/19/20 21:00 11/19/20 09:48 DC Haloperidol (Haldol) 10 mg QHS PO 11/19/20 21:00 11/24/20 01:45 DC 11/23/20 21:16 Haloperidol (Haldol) 10 mg QHS PO 11/24/20 21:00 12/11/20 10:47 DC 12/10/20 21:45 Haloperidol (Haldol) 10 mg QHS PO 12/19/20 21:00 12/25/20 20:24 Haloperidol (Haldol) 10 mg STAT STAT IM 11/26/20 02:41 11/26/20 02:44 DC 11/26/20 02:52 Haloperidol (Haldol) 10 mg STAT STAT PO 11/19/20 06:48 11/19/20 06:50 DC 11/19/20 07:06 Haloperidol (Haldol) 15 mg QHS PO 12/11/20 21:00 12/19/20 10:34 DC 12/18/20 20:05 Haloperidol Decanoate (Haldol Decanoate) 100 mg Q28D IM 11/28/20 12:00 12/26/20 12:49 Home Med (Med Rec Complete!) ASDIRECTED XX 11/17/20 23:25 11/17/20 23:24 DC Ibuprofen (Advil) 800 mg Q8H PO 12/11/20 14:00 12/26/20 13:03 Lamotrigine (LaMICtal) 200 mg DAILY PO 11/18/20 09:00 11/24/20 01:45 DC 11/23/20 08:00 Lamotrigine (LaMICtal) 200 mg DAILY PO 11/24/20 09:00 12/26/20 08:43 Levothyroxine Sodium (Synthroid) 100 mcg DAILY@06 PO 11/24/20 06:00 12/26/20 05:48 Levothyroxine Sodium (Synthroid) 100 mcg DAILY@0600 PO 11/19/20 06:00 11/24/20 01:45 DC 11/23/20 05:05 Lorazepam (Ativan) 2 mg Q8HP PRN PO ANXIETY/AGITATION 12/02/20 12:05 12/24/20 12:27 Lorazepam (Ativan) 2 mg Q8HP PRN PO AGITATION 11/19/20 09:10 11/24/20 01:45 DC 11/23/20 23:21 Lorazepam (Ativan) 2 mg Q8HP PRN PO AGITATION 11/24/20 10:55 12/01/20 10:54 DC 11/30/20 22:04 Lorazepam (Ativan) 2 mg STAT STAT IM 11/26/20 02:41 11/26/20 02:44 DC 11/26/20 02:53 Lorazepam (Ativan) 2 mg STAT STAT PO 11/19/20 06:48 11/19/20 06:50 DC 11/19/20 07:06 Losartan Potassium (Cozaar) 50 mg DAILY PO 11/19/20 09:00 11/22/20 08:55 DC 11/22/20 08:20 Magnesium Hydroxide (Milk Of Magnesia) 30 ml DAILYPRN PRN PO CONSTIPATION 11/18/20 12:40 11/24/20 01:45 DC Magnesium Hydroxide (Milk Of Magnesia) 30 ml DAILYPRN PRN PO CONSTIPATION 11/24/20 10:55 Menthol/Methyl Salicylate (Bengay Cream) Allow patient to apply t... BID PRN TOP MILD PAIN (PS 1-4) 12/19/20 11:40 12/26/20 12:49 Metformin HCl (Glucophage) 1,000 mg BID@08,18 PO 11/24/20 08:00 12/26/20 08:42 Metformin HCl (Glucophage) 1,000 mg BID@0800,1800 PO 11/18/20 18:00 11/24/20 01:45 DC 11/23/20 17:34 Miscellaneous (Unresolved Clarification Entry) SEE LABEL COMMENTS DAILY XX 11/30/20 09:00 12/02/20 09:53 DC Miscellaneous (Unresolved Clarification Entry) SEE LABEL COMMENTS DAILY XX 12/02/20 09:00 12/02/20 12:12 DC Miscellaneous (Unresolved Clarification Entry) SEE LABEL COMMENTS DAILY XX 12/13/20 09:00 12/15/20 10:07 DC Miscellaneous (Unresolved Clarification Entry) SEE LABEL COMMENTS DAILY XX 12/22/20 09:00 12/24/20 14:02 DC Montelukast Sodium (Singulair) 10 mg QHS PO 11/18/20 21:00 11/24/20 01:45 DC 11/23/20 21:15 Montelukast Sodium (Singulair) 10 mg QHS PO 11/24/20 21:00 12/25/20 20:24 Omeprazole (PriLOSEC) 20 mg DAILY PO 12/11/20 09:00 12/26/20 08:42 Oxybutynin Chloride (Ditropan) 5 mg DAILY PO 11/19/20 09:00 11/24/20 01:45 DC 11/23/20 08:00 Oxybutynin Chloride (Ditropan) 5 mg DAILY PO 11/24/20 09:00 12/26/20 08:42 Propranolol HCl (Inderal) 10 mg BID PO 11/18/20 21:00 11/22/20 08:55 DC 11/22/20 08:20 Quetiapine Fumarate (SEROquel) 200 mg QHS PO 11/19/20 21:00 11/24/20 01:45 DC 11/23/20 21:15 Quetiapine Fumarate (SEROquel) 200 mg QHS PO 11/24/20 21:00 12/04/20 08:57 DC 12/03/20 20:20 Quetiapine Fumarate (SEROquel) 300 mg QHS PO 12/04/20 21:00 12/25/20 20:24 Tamsulosin HCl (Flomax) 0.8 mg DAILY PO 11/19/20 09:00 11/24/20 01:45 DC 11/23/20 08:01 Tamsulosin HCl (Flomax) 0.8 mg DAILY PO 11/24/20 09:00 12/26/20 08:43 Trazodone HCl (Desyrel) 100 mg QPM PO 11/18/20 21:00 11/24/20 01:45 DC 11/23/20 21:16 Trazodone HCl (Desyrel) 100 mg QPM PO 11/24/20 21:00 12/25/20 20:24 Vitamin D (Vitamin D) 400 units DAILY PO 11/19/20 09:00 11/24/20 01:45 DC 11/23/20 08:00 Vitamin D (Vitamin D) 400 units DAILY PO 11/24/20 09:00 12/26/20 08:43 Allergies Coded Allergies: Penicillins (Verified Allergy, Intermediate, rash, 01/02/19) latex (Verified Allergy, Intermediate, rash, 12/13/19) divalproex sodium (Verified Allergy, Unknown, 01/02/19) JEREMIAH ANDERSON MD Dec 26, 2020 14:17
[2020-12-26 18:21] VITALS: BP 162/90
[2020-12-26] MEDS: CYCLOBENZAPRINE 10MG TABLET PO SCH (20:50)
[2020-12-26] MEDS: MONTELUKAST 10 MG TAB PO SCH (20:50)
[2020-12-26] MEDS: traZODone 100 MG TAB PO SCH (20:50)
[2020-12-26] MEDS: QUEtiapine FUMARATE 100 MG TAB PO SCH (20:50)
[2020-12-26] MEDS: ATORVASTATIN 20 MG TAB PO SCH (20:50)
[2020-12-26] MEDS: haloperidoL 5 MG TAB PO SCH (20:50)
[2020-12-27] MEDS: ACETAMINOPHEN TAB 650MG DOSE (2X325MG) PO PRN (00:32)
[2020-12-27] MEDS: LEVOTHYROXINE 100MCG TABLET (0.1MG) PO SCH (05:55)
[2020-12-27] MEDS: IBUPROFEN 800 MG TAB PO SCH ×3 (05:56→23:22)
[2020-12-27 06:30] VITALS: BP 166/105
[2020-12-27] MEDS: metFORMIN (GLUCOPHAGE) 1000 MG TABLET PO SCH ×2 (08:54→17:04)
[2020-12-27] MEDS: FLUTICASONE PROP 0.05% NASAL SPRAY 16 GM (FLONASE) NARES SCH (09:45)
[2020-12-27] MEDS: ASPIRIN 81MG ENTERIC TABLET PO SCH (09:46)
[2020-12-27] MEDS: lamoTRIgine 100MG TAB PO SCH (09:46)
[2020-12-27] MEDS: OMEGA-3 1000MG CAPSULE PO SCH (09:46)
[2020-12-27] MEDS: VITAMIN D (CHOLECALCIFEROL) 400 INTERNATIONAL UNITS TAB PO SCH (09:46)
[2020-12-27] MEDS: BENZTROPINE 1 MG TAB PO SCH ×2 (09:46→21:22)
[2020-12-27] MEDS: atenoloL 25 MG TAB PO SCH ×2 (09:46→21:31)
[2020-12-27] MEDS: DOCUSATE SODIUM 100MG CAPSULE PO SCH ×2 (09:46→21:22)
[2020-12-27] MEDS: oxyBUTYnin 5 MG TAB PO SCH (09:46)
[2020-12-27] MEDS: OMEPRAZOLE 20 MG CAP PO SCH (09:46)
[2020-12-27] MEDS: TAMSULOSIN 0.4 MG CAP PO SCH (09:46)
[2020-12-27] MEDS: diphenhydrAMINE 50MG CAP PO PRN (09:48)
--- NOTE | 2020-12-27 14:44 | MHIPNPDOC ---
[facility] Progress Note Progress Note DATE OF SERVICE: 12/27/20 HISTORY OF THE PRESENT ILLNESS: Patient is a 50 -year-old , male, who [has extensive history of bipolar disorder since his early 20s with numerous previous inpatient treatment. He has been living at a [facility] detention since his discharge from [facility] in January 2010. Patient was brought to emergency room from his detention after he became extremely delusional disorganized and paranoid. Patient has been maintained on long- acting Haldol injection and Lamictal and remained marginally stable but in the p ast few weeks he has been showing decreasing sleep and increasing psychomotor agitation. On the day of his admission patient was becoming grossly disorganized and paranoid and refusing his regular medications and reportedly ran out of his detention and was running away claiming that he was going to an emergency room. He was brought to emergency room by police and ambulance and a dmitted on 939 status. On the unit patient was very pressured and agitated required extra medications of Haldol and Ativan. On examination with MD patient is a little subdued and is in better control but his speech is very pressured flighty and not making much sense. He does not know why he is here but admits that he has not been sleeping but other than that he is denying any command hallucination and denies any suicidal or homicidal thoughts but not able to give any coherent rational account of the events leading to his admission. He denies any substance abuse claims that he has been taking his medications but does not know what medicine he was taking. Again he was grossly disorganized and flighty and grossly manic yesterday, today patient is less manic but states "I had covid infection 7 times and was told I cannot get it again." Patient complained that Haldol was making him sleepy but he appeared wide-awake and communicative. There is a limitation of what type of medications he can use. Placement at [facility] is planned Patient is pleasant today speech is more of a normal rate. Patient continues thought disorder but states that the nurses at [facility] are waiting for him. He is apparently unable to function in his pressures surrounding he continues to be tangential with loose associations VITAL SIGNS: See below. NEW TEST RESULTS: None. CURRENT MEDICATIONS: See below. MENTAL STATUS EXAMINATION: Patient is a 50-year old male, who is suffering from a long history of bipolar disorder. Speech: Is rapid but less so. Language skills are intact. Thought processes including: Rapid with some loose associations and circumferential thinking Thought content: As above. Abstract reasoning, and computation: Poor abstraction. Description of associations: Loose associations. Description of abnormal or psychotic thoughts: Loose associations grandiosity. Judgment: Poor. Insight: Poor. Orientation: X3. Recent and remote memory: Distorted. Attention span and concentration: Poor. Language: Intact. Fund of knowledge: Reasonable. Mood: Elevated. Affect: Bright DIAGNOSES: 1. Bipolar disorder manic type. 2. None. 3. None. VITAL SIGNS: See below. NEW TEST RESULTS: CURRENT MEDICATIONS: See below. DIAGNOSES: 1. Bipolar disorder manic type. Vital Signs Vital Signs Date Time Temp Pulse Resp B/P (MAP) Pulse Ox O2 Delivery O2 Flow Rate FiO2 12/27/20 09:46 88 144/82 12/27/20 06:30 97.8 16 94 Room Air Current Medications Current Medications Medications (Trade) Dose Ordered Sig/Kailey Route PRN Reason Start Time Stop Time Status Last Admin Dose Admin Acetaminophen (Tylenol Tab) 650 mg Q6HP PRN PO FEVER 12/01/20 16:05 12/27/20 00:32 Acetaminophen (Tylenol Tab) 650 mg Q6HP PRN PO HEADACHE or MILD DISCOMFORT 11/18/20 12:40 11/24/20 01:45 DC 11/23/20 03:09 Al Hydrox/Mg Hydrox/Simethicone (Mylanta) 30 ml Q4HP PRN PO HEARTBURN/INDIGESTION 11/18/20 12:40 11/24/20 01:45 DC 11/23/20 22:34 Amlodipine Besylate (Norvasc) 10 mg DAILY PO 11/19/20 09:00 11/22/20 08:55 DC 11/22/20 08:20 Aspirin (Ecotrin) 81 mg DAILY PO 11/24/20 09:00 12/27/20 09:46 Aspirin (Ecotrin) 81 mg QAM PO 11/22/20 09:00 11/24/20 01:45 DC 11/23/20 07:58 Atenolol (Tenormin) 25 mg BID PO 11/22/20 09:00 11/22/20 12:53 DC 11/22/20 09:51 Atenolol (Tenormin) 25 mg BID PO 11/24/20 09:00 12/27/20 09:46 Atenolol (Tenormin) 50 mg BID PO 11/22/20 21:00 11/24/20 00:13 DC 11/23/20 21:16 Atorvastatin Calcium (Lipitor) 40 mg QHS PO 11/18/20 21:00 11/24/20 01:45 DC 11/23/20 21:16 Atorvastatin Calcium (Lipitor) 40 mg QHS PO 11/24/20 21:00 12/26/20 20:50 Benztropine Mesylate (Cogentin) 1 mg BID PO 11/18/20 09:00 11/24/20 01:45 DC 11/23/20 21:15 Benztropine Mesylate (Cogentin) 1 mg BID PO 11/24/20 09:00 12/27/20 09:46 Cyclobenzaprine HCl (Flexeril) 10 mg QHS PO 11/20/20 21:00 11/24/20 01:45 DC 11/23/20 21:16 Cyclobenzaprine HCl (Flexeril) 10 mg QHS PO 11/24/20 21:00 12/26/20 20:50 Diphenhydramine HCl (Benadryl) 50 mg Q8HP PRN PO AGITATION 11/19/20 09:10 11/24/20 01:45 DC 11/23/20 17:51 Diphenhydramine HCl (Benadryl) 50 mg Q8HP PRN PO AGITATION 11/24/20 10:55 12/27/20 09:48 Diphenhydramine HCl (Benadryl) 50 mg STAT STAT IM 11/26/20 02:41 11/26/20 02:44 DC 11/26/20 02:53 Diphenhydramine HCl (Benadryl) 50 mg STAT STAT PO 11/19/20 06:48 11/19/20 06:50 DC 11/19/20 07:06 Docusate Sodium (Colace) 100 mg BID PO 11/18/20 21:00 11/24/20 01:45 DC 11/23/20 21:15 Docusate Sodium (Colace) 100 mg BID PO 11/24/20 09:00 12/27/20 09:46 Fish Oil (Romeo-3 (1000mg)) 1 cap DAILY PO 12/06/20 09:00 12/27/20 09:46 Fluticasone Propionate (Flonase 0.05% Nasal [place]) 2 spray DAILY NARES 11/19/20 09:00 11/24/20 01:45 DC 11/23/20 08:01 Fluticasone Propionate (Flonase 0.05% Nasal [place]) 2 spray DAILY NARES 11/24/20 09:00 12/27/20 09:45 Haloperidol (Haldol) 10 mg Q8HP PRN PO AGITATION 11/19/20 09:10 11/24/20 01:45 DC 11/23/20 23:21 Haloperidol (Haldol) 10 mg Q8HP PRN PO AGITATION 11/24/20 10:55 12/27/20 09:48 Haloperidol (Haldol) 10 mg QHS PO 11/19/20 21:00 11/19/20 09:48 DC Haloperidol (Haldol) 10 mg QHS PO 11/19/20 21:00 11/24/20 01:45 DC 11/23/20 21:16 Haloperidol (Haldol) 10 mg QHS PO 11/24/20 21:00 12/11/20 10:47 DC 12/10/20 21:45 Haloperidol (Haldol) 10 mg QHS PO 12/19/20 21:00 12/26/20 20:50 Haloperidol (Haldol) 10 mg STAT STAT IM 11/26/20 02:41 11/26/20 02:44 DC 11/26/20 02:52 Haloperidol (Haldol) 10 mg STAT STAT PO 11/19/20 06:48 11/19/20 06:50 DC 11/19/20 07:06 Haloperidol (Haldol) 15 mg QHS PO 12/11/20 21:00 12/19/20 10:34 DC 12/18/20 20:05 Haloperidol Decanoate (Haldol Decanoate) 100 mg Q28D IM 11/28/20 12:00 12/26/20 12:49 Home Med (Med Rec Complete!) ASDIRECTED XX 11/17/20 23:25 11/17/20 23:24 DC Ibuprofen (Advil) 800 mg Q8H PO 12/11/20 14:00 12/27/20 05:56 Lamotrigine (LaMICtal) 200 mg DAILY PO 11/18/20 09:00 11/24/20 01:45 DC 11/23/20 08:00 Lamotrigine (LaMICtal) 200 mg DAILY PO 11/24/20 09:00 12/27/20 09:46 Levothyroxine Sodium (Synthroid) 100 mcg DAILY@06 PO 11/24/20 06:00 12/27/20 05:55 Levothyroxine Sodium (Synthroid) 100 mcg DAILY@0600 PO 11/19/20 06:00 11/24/20 01:45 DC 11/23/20 05:05 Lorazepam (Ativan) 2 mg Q8HP PRN PO ANXIETY/AGITATION 12/02/20 12:05 12/24/20 12:27 Lorazepam (Ativan) 2 mg Q8HP PRN PO AGITATION 11/19/20 09:10 11/24/20 01:45 DC 11/23/20 23:21 Lorazepam (Ativan) 2 mg Q8HP PRN PO AGITATION 11/24/20 10:55 12/01/20 10:54 DC 11/30/20 22:04 Lorazepam (Ativan) 2 mg STAT STAT IM 11/26/20 02:41 11/26/20 02:44 DC 11/26/20 02:53 Lorazepam (Ativan) 2 mg STAT STAT PO 11/19/20 06:48 11/19/20 06:50 DC 11/19/20 07:06 Losartan Potassium (Cozaar) 50 mg DAILY PO 11/19/20 09:00 11/22/20 08:55 DC 11/22/20 08:20 Magnesium Hydroxide (Milk Of Magnesia) 30 ml DAILYPRN PRN PO CONSTIPATION 11/18/20 12:40 11/24/20 01:45 DC Magnesium Hydroxide (Milk Of Magnesia) 30 ml DAILYPRN PRN PO CONSTIPATION 11/24/20 10:55 Menthol/Methyl Salicylate (Bengay Cream) Allow patient to apply t... BID PRN TOP MILD PAIN (PS 1-4) 12/19/20 11:40 12/26/20 23:06 Metformin HCl (Glucophage) 1,000 mg BID@08,18 PO 11/24/20 08:00 12/27/20 08:54 Metformin HCl (Glucophage) 1,000 mg BID@0800,1800 PO 11/18/20 18:00 11/24/20 01:45 DC 11/23/20 17:34 Miscellaneous (Unresolved Clarification Entry) SEE LABEL COMMENTS DAILY XX 11/30/20 09:00 12/02/20 09:53 DC Miscellaneous (Unresolved Clarification Entry) SEE LABEL COMMENTS DAILY XX 12/02/20 09:00 12/02/20 12:12 DC Miscellaneous (Unresolved Clarification Entry) SEE LABEL COMMENTS DAILY XX 12/13/20 09:00 12/15/20 10:07 DC Miscellaneous (Unresolved Clarification Entry) SEE LABEL COMMENTS DAILY XX 12/22/20 09:00 12/24/20 14:02 DC Montelukast Sodium (Singulair) 10 mg QHS PO 11/18/20 21:00 11/24/20 01:45 DC 11/23/20 21:15 Montelukast Sodium (Singulair) 10 mg QHS PO 11/24/20 21:00 12/26/20 20:50 Omeprazole (PriLOSEC) 20 mg DAILY PO 12/11/20 09:00 12/27/20 09:46 Oxybutynin Chloride (Ditropan) 5 mg DAILY PO 11/19/20 09:00 11/24/20 01:45 DC 11/23/20 08:00 Oxybutynin Chloride (Ditropan) 5 mg DAILY PO 11/24/20 09:00 12/27/20 09:46 Propranolol HCl (Inderal) 10 mg BID PO 11/18/20 21:00 11/22/20 08:55 DC 11/22/20 08:20 Quetiapine Fumarate (SEROquel) 200 mg QHS PO 11/19/20 21:00 11/24/20 01:45 DC 11/23/20 21:15 Quetiapine Fumarate (SEROquel) 200 mg QHS PO 11/24/20 21:00 12/04/20 08:57 DC 12/03/20 20:20 Quetiapine Fumarate (SEROquel) 300 mg QHS PO 12/04/20 21:00 12/26/20 20:50 Tamsulosin HCl (Flomax) 0.8 mg DAILY PO 11/19/20 09:00 11/24/20 01:45 DC 11/23/20 08:01 Tamsulosin HCl (Flomax) 0.8 mg DAILY PO 11/24/20 09:00 12/27/20 09:46 Trazodone HCl (Desyrel) 100 mg QPM PO 11/18/20 21:00 11/24/20 01:45 DC 11/23/20 21:16 Trazodone HCl (Desyrel) 100 mg QPM PO 11/24/20 21:00 12/26/20 20:50 Vitamin D (Vitamin D) 400 units DAILY PO 11/19/20 09:00 11/24/20 01:45 DE 11/23/20 08:00 Vitamin D (Vitamin D) 400 units DAILY PO 11/24/20 09:00 12/27/20 09:46 Allergies Coded Allergies: Penicillins (Verified Allergy, Intermediate, rash, 01/02/19) latex (Verified Allergy, Intermediate, rash, 12/13/19) divalproex sodium (Verified Allergy, Unknown, 01/02/19) JEREMIAH ANDERSON MD Dec 27, 2020 14:44
[2020-12-27] MEDS: LORazepam 2 MG TAB PO PRN (17:25)
[2020-12-27 18:31] VITALS: BP 144/86
[2020-12-27] MEDS: traZODone 100 MG TAB PO SCH (21:22)
[2020-12-27] MEDS: ATORVASTATIN 20 MG TAB PO SCH (21:22)
[2020-12-27] MEDS: haloperidoL 5 MG TAB PO SCH (21:22)
[2020-12-27] MEDS: CYCLOBENZAPRINE 10MG TABLET PO SCH (21:23)
[2020-12-27] MEDS: MONTELUKAST 10 MG TAB PO SCH (21:23)
[2020-12-27] MEDS: QUEtiapine FUMARATE 100 MG TAB PO SCH (21:23)
[2020-12-27] MEDS: ANALGESIC BALM CRM 3OZ TOP PRN (23:23)
[2020-12-28] MEDS: ACETAMINOPHEN TAB 650MG DOSE (2X325MG) PO PRN (00:55)
[2020-12-28] MEDS: LEVOTHYROXINE 100MCG TABLET (0.1MG) PO SCH (05:46)
[2020-12-28] MEDS: IBUPROFEN 800 MG TAB PO SCH ×3 (05:53→21:19)
[2020-12-28 06:23] VITALS: BP 150/96
[2020-12-28] MEDS: FLUTICASONE PROP 0.05% NASAL SPRAY 16 GM (FLONASE) NARES SCH (08:58)
[2020-12-28] MEDS: metFORMIN (GLUCOPHAGE) 1000 MG TABLET PO SCH ×2 (08:58→18:02)
[2020-12-28] MEDS: VITAMIN D (CHOLECALCIFEROL) 400 INTERNATIONAL UNITS TAB PO SCH (08:59)
[2020-12-28] MEDS: atenoloL 25 MG TAB PO SCH ×2 (08:59→21:29)
[2020-12-28] MEDS: oxyBUTYnin 5 MG TAB PO SCH (08:59)
[2020-12-28] MEDS: lamoTRIgine 100MG TAB PO SCH (09:00)
[2020-12-28] MEDS: OMEGA-3 1000MG CAPSULE PO SCH (09:00)
[2020-12-28] MEDS: BENZTROPINE 1 MG TAB PO SCH ×2 (09:00→21:19)
[2020-12-28] MEDS: DOCUSATE SODIUM 100MG CAPSULE PO SCH ×2 (09:00→21:18)
[2020-12-28] MEDS: OMEPRAZOLE 20 MG CAP PO SCH (09:00)
[2020-12-28] MEDS: ASPIRIN 81MG ENTERIC TABLET PO SCH (09:00)
[2020-12-28] MEDS: TAMSULOSIN 0.4 MG CAP PO SCH (09:01)
--- NOTE | 2020-12-28 11:47 | MHIPNPDOC ---
[facility] Progress Note Progress Note DATE OF SERVICE: 12/28/20 HISTORY OF THE PRESENT ILLNESS: Patient is a 50 -year-old , male, who [has extensive history of bipolar disorder since his early 20s with numerous previous inpatient treatment. He has been living at a [facility] half-way since his discharge from [facility] in January 2010. Patient was brought to emergency room from his half-way after he became extremely delusional disorganized and paranoid. Patient has been maintained on long- acting Haldol injection and Lamictal and remained marginally stable but in the past few weeks he has been showing decreasing sleep and increasing psychomotor agitation. On the day of his admission patient was becoming grossly disorganized and paranoid and refusing his regular medications and reportedly ran out of his half-way and was running away claiming that he was going to an emergency room. He was brought to emergency room by police and ambulance and admitted on 939 status. On the unit patient was very pressured and agitated required extra medications of Haldol and Ativan. On examination with MD patient is a little subdued and is in better control but his speech is very pressured flighty and not making much sense. He does not know why he is here but admits that he has not been sleeping but other than that he is denying any command hallucination and denies any suicidal or homicidal thoughts but not able to give any coherent rational account of the events leading to his admission. He denies any substance abuse claims that he has been taking his medications but does not know what medicine he was taking. Again he was grossly disorganized and flighty and grossly manic yesterday, today patient is less manic but states "I had covid infection 7 times and was told I cannot get it again." Patient complained that Haldol was making him sleepy but he appeared wide-awake and communicative. There is a limitation of what type of medications he can use. Placement at [facility] is planned Patient is pleasant today speech is more of a normal rate. Less thought disordered roland yesterday. Kristin seems better controlled. No noticeable side effects. He is apparently unable to function in his pressures surrounding he continues to be tangential with loose associations VITAL SIGNS: See below. NEW TEST RESULTS: None. CURRENT MEDICATIONS: See below. MENTAL STATUS EXAMINATION: Patient is a 50-year old male, who is suffering from a long history of bipolar disorder. Speech: Is rapid but less so. Language skills are intact. Thought processes including: Normal rate and rhythm no gross thought abnormalities Thought content: As above. Abstract reasoning, and computation: Poor abstraction. Description of associations: No loose associations. Description of abnormal or psychotic thoughts: Less loose associations no grandiosity expressed today. Judgment: Poor. Insight: Poor. Orientation: X3. Recent and remote memory: Distorted. Attention span and concentration: Poor. Language: Intact. Fund of knowledge: Reasonable. Mood: Elevated. Affect: Bright DIAGNOSES: 1. Bipolar disorder manic type. 2. None. 3. None. VITAL SIGNS: See below. ASSESSMENT: Bipolar disorder improving MANAGEMENT PLAN: Continue medications continue interviewing. TIME SPENT: 35 minutes. Vital Signs Vital Signs Date Time Temp Pulse Resp B/P (MAP) Pulse Ox O2 Delivery O2 Flow Rate FiO2 12/28/20 08:59 150/96 12/28/20 06:23 98.0 65 16 95 Room Air Current Medications Current Medications Medications (Trade) Dose Ordered Sig/Kailey Route PRN Reason Start Time Stop Time Status Last Admin Dose Admin Acetaminophen (Tylenol Tab) 650 mg Q6HP PRN PO FEVER 12/01/20 16:05 12/28/20 00:55 Acetaminophen (Tylenol Tab) 650 mg Q6HP PRN PO HEADACHE or MILD DISCOMFORT 11/18/20 12:40 11/24/20 01:45 DC 11/23/20 03:09 Al Hydrox/Mg Hydrox/Simethicone (Mylanta) 30 ml Q4HP PRN PO HEARTBURN/INDIGESTION 11/18/20 12:40 11/24/20 01:45 DC 11/23/20 22:34 Amlodipine Besylate (Norvasc) 10 mg DAILY PO 11/19/20 09:00 11/22/20 08:55 DC 11/22/20 08:20 Aspirin (Ecotrin) 81 mg DAILY PO 11/24/20 09:00 12/28/20 09:00 Aspirin (Ecotrin) 81 mg QAM PO 11/22/20 09:00 11/24/20 01:45 DC 11/23/20 07:58 Atenolol (Tenormin) 25 mg BID PO 11/22/20 09:00 11/22/20 12:53 DC 11/22/20 09:51 Atenolol (Tenormin) 25 mg BID PO 11/24/20 09:00 9/11/21 08:59 Atenolol (Tenormin) 50 mg BID PO 11/22/20 21:00 11/24/20 00:13 DC 11/23/20 21:16 Atorvastatin Calcium (Lipitor) 40 mg QHS PO 11/18/20 21:00 11/24/20 01:45 DC 11/23/20 21:16 Atorvastatin Calcium (Lipitor) 40 mg QHS PO 11/24/20 21:00 12/27/20 21:22 Benztropine Mesylate (Cogentin) 1 mg BID PO 11/18/20 09:00 11/24/20 01:45 DC 11/23/20 21:15 Benztropine Mesylate (Cogentin) 1 mg BID PO 11/24/20 09:00 12/28/20 09:00 Cyclobenzaprine HCl (Flexeril) 10 mg QHS PO 11/20/20 21:00 11/24/20 01:45 DC 11/23/20 21:16 Cyclobenzaprine HCl (Flexeril) 10 mg QHS PO 11/24/20 21:00 12/27/20 21:23 Diphenhydramine HCl (Benadryl) 50 mg Q8HP PRN PO AGITATION 11/19/20 09:10 11/24/20 01:45 DC 11/23/20 17:51 Diphenhydramine HCl (Benadryl) 50 mg Q8HP PRN PO AGITATION 11/24/20 10:55 12/27/20 09:48 Diphenhydramine HCl (Benadryl) 50 mg STAT STAT IM 11/26/20 02:41 11/26/20 02:44 DC 11/26/20 02:53 Diphenhydramine HCl (Benadryl) 50 mg STAT STAT PO 11/19/20 06:48 11/19/20 06:50 DC 11/19/20 07:06 Docusate Sodium (Colace) 100 mg BID PO 11/18/20 21:00 11/24/20 01:45 DC 11/23/20 21:15 Docusate Sodium (Colace) 100 mg BID PO 11/24/20 09:00 12/28/20 09:00 Fish Oil ([place]-3 (1000mg)) 1 cap DAILY PO 12/06/20 09:00 12/28/20 09:00 Fluticasone Propionate (Flonase 0.05% Nasal [place]) 2 spray DAILY NARES 11/19/20 09:00 11/24/20 01:45 DC 11/23/20 08:01 Fluticasone Propionate (Flonase 0.05% Nasal [place]) 2 spray DAILY NARES 11/24/20 09:00 12/28/20 08:58 Haloperidol (Haldol) 10 mg Q8HP PRN PO AGITATION 11/19/20 09:10 11/24/20 01:45 DC 11/23/20 23:21 Haloperidol (Haldol) 10 mg Q8HP PRN PO AGITATION 11/24/20 10:55 12/27/20 09:48 Haloperidol (Haldol) 10 mg QHS PO 11/19/20 21:00 11/19/20 09:48 DC Haloperidol (Haldol) 10 mg QHS PO 11/19/20 21:00 11/24/20 01:45 DC 11/23/20 21:16 Haloperidol (Haldol) 10 mg QHS PO 11/24/20 21:00 12/11/20 10:47 DC 12/10/20 21:45 Haloperidol (Haldol) 10 mg QHS PO 12/19/20 21:00 12/27/20 21:22 Haloperidol (Haldol) 10 mg STAT STAT IM 11/26/20 02:41 11/26/20 02:44 DC 11/26/20 02:52 Haloperidol (Haldol) 10 mg STAT STAT PO 11/19/20 06:48 11/19/20 06:50 DC 11/19/20 07:06 Haloperidol (Haldol) 15 mg QHS PO 12/11/20 21:00 12/19/20 10:34 DC 12/18/20 20:05 Haloperidol Decanoate (Haldol Decanoate) 100 mg Q28D IM 11/28/20 12:00 12/26/20 12:49 Home Med (Med Rec Complete!) ASDIRECTED XX 11/17/20 23:25 11/17/20 23:24 DC Ibuprofen (Advil) 800 mg Q8H PO 12/11/20 14:00 12/28/20 05:53 Lamotrigine (LaMICtal) 200 mg DAILY PO 11/18/20 09:00 11/24/20 01:45 DC 11/23/20 08:00 Lamotrigine (LaMICtal) 200 mg DAILY PO 11/24/20 09:00 12/28/20 09:00 Levothyroxine Sodium (Synthroid) 100 mcg DAILY@06 PO 11/24/20 06:00 12/28/20 05:46 Levothyroxine Sodium (Synthroid) 100 mcg DAILY@0600 PO 11/19/20 06:00 11/24/20 01:45 DC 11/23/20 05:05 Lorazepam (Ativan) 2 mg Q8HP PRN PO ANXIETY/AGITATION 12/02/20 12:05 12/27/20 17:25 Lorazepam (Ativan) 2 mg Q8HP PRN PO AGITATION 11/19/20 09:10 11/24/20 01:45 DC 11/23/20 23:21 Lorazepam (Ativan) 2 mg Q8HP PRN PO AGITATION 11/24/20 10:55 12/01/20 10:54 DC 11/30/20 22:04 Lorazepam (Ativan) 2 mg STAT STAT IM 11/26/20 02:41 11/26/20 02:44 DC 11/26/20 02:53 Lorazepam (Ativan) 2 mg STAT STAT PO 11/19/20 06:48 11/19/20 06:50 DC 11/19/20 07:06 Losartan Potassium (Cozaar) 50 mg DAILY PO 11/19/20 09:00 11/22/20 08:55 DC 11/22/20 08:20 Magnesium Hydroxide (Milk Of Magnesia) 30 ml DAILYPRN PRN PO CONSTIPATION 11/18/20 12:40 11/24/20 01:45 DC Magnesium Hydroxide (Milk Of Magnesia) 30 ml DAILYPRN PRN PO CONSTIPATION 11/24/20 10:55 Menthol/Methyl Salicylate (Bengay Cream) Allow patient to apply t... BID PRN TOP MILD PAIN (PS 1-4) 12/19/20 11:40 12/27/20 23:23 Metformin HCl (Glucophage) 1,000 mg BID@08,18 PO 11/24/20 08:00 12/28/20 08:58 Metformin HCl (Glucophage) 1,000 mg BID@0800,1800 PO 11/18/20 18:00 11/24/20 01:45 DC 11/23/20 17:34 Miscellaneous (Unresolved Clarification Entry) SEE LABEL COMMENTS DAILY XX 11/30/20 09:00 12/02/20 09:53 DC Miscellaneous (Unresolved Clarification Entry) SEE LABEL COMMENTS DAILY XX 12/02/20 09:00 12/02/20 12:12 DC Miscellaneous (Unresolved Clarification Entry) SEE LABEL COMMENTS DAILY XX 12/13/20 09:00 12/15/20 10:07 DC Miscellaneous (Unresolved Clarification Entry) SEE LABEL COMMENTS DAILY XX 12/22/20 09:00 12/24/20 14:02 DC Montelukast Sodium (Singulair) 10 mg QHS PO 11/18/20 21:00 11/24/20 01:45 DC 11/23/20 21:15 Montelukast Sodium (Singulair) 10 mg QHS PO 11/24/20 21:00 12/27/20 21:23 Omeprazole (PriLOSEC) 20 mg DAILY PO 12/11/20 09:00 12/28/20 09:00 Oxybutynin Chloride (Ditropan) 5 mg DAILY PO 11/19/20 09:00 11/24/20 01:45 DC 11/23/20 08:00 Oxybutynin Chloride (Ditropan) 5 mg DAILY PO 11/24/20 09:00 12/28/20 08:59 Propranolol HCl (Inderal) 10 mg BID PO 11/18/20 21:00 11/22/20 08:55 DC 11/22/20 08:20 Quetiapine Fumarate (SEROquel) 200 mg QHS PO 11/19/20 21:00 11/24/20 01:45 DC 11/23/20 21:15 Quetiapine Fumarate (SEROquel) 200 mg QHS PO 11/24/20 21:00 12/04/20 08:57 DC 12/03/20 20:20 Quetiapine Fumarate (SEROquel) 300 mg QHS PO 12/04/20 21:00 12/27/20 21:23 Tamsulosin HCl (Flomax) 0.8 mg DAILY PO 11/19/20 09:00 11/24/20 01:45 DC 11/23/20 08:01 Tamsulosin HCl (Flomax) 0.8 mg DAILY PO 11/24/20 09:00 12/28/20 09:01 Trazodone HCl (Desyrel) 100 mg QPM PO 11/18/20 21:00 11/24/20 01:45 DC 11/23/20 21:16 Trazodone HCl (Desyrel) 100 mg QPM PO 11/24/20 21:00 12/27/20 21:22 Vitamin D (Vitamin D) 400 units DAILY PO 11/19/20 09:00 11/24/20 01:45 DC 11/23/20 08:00 Vitamin D (Vitamin D) 400 units DAILY PO 11/24/20 09:00 12/28/20 08:59 Allergies Coded Allergies: Penicillins (Verified Allergy, Intermediate, rash, 01/02/19) latex (Verified Allergy, Intermediate, rash, 12/13/19) divalproex sodium (Verified Allergy, Unknown, 01/02/19) JEREMIAH ANDERSON MD Dec 28, 2020 11:47
[2020-12-28] MEDS: diphenhydrAMINE 50MG CAP PO PRN (15:46)
[2020-12-28 18:25] VITALS: BP 156/94
[2020-12-28] MEDS: haloperidoL 5 MG TAB PO SCH (21:18)
[2020-12-28] MEDS: CYCLOBENZAPRINE 10MG TABLET PO SCH (21:19)
[2020-12-28] MEDS: traZODone 100 MG TAB PO SCH (21:19)
[2020-12-28] MEDS: QUEtiapine FUMARATE 100 MG TAB PO SCH (21:19)
[2020-12-28] MEDS: ATORVASTATIN 20 MG TAB PO SCH (21:20)
[2020-12-28] MEDS: MONTELUKAST 10 MG TAB PO SCH (21:20)
[2020-12-28] MEDS: ANALGESIC BALM CRM 3OZ TOP PRN (23:44)
[2020-12-29] MEDS: LEVOTHYROXINE 100MCG TABLET (0.1MG) PO SCH (06:03)
[2020-12-29] MEDS: IBUPROFEN 800 MG TAB PO SCH ×3 (06:04→22:40)
[2020-12-29 06:53] VITALS: BP 130/93
[2020-12-29] MEDS: FLUTICASONE PROP 0.05% NASAL SPRAY 16 GM (FLONASE) NARES SCH (08:46)
[2020-12-29] MEDS: TAMSULOSIN 0.4 MG CAP PO SCH (08:46)
[2020-12-29] MEDS: lamoTRIgine 100MG TAB PO SCH (08:46)
[2020-12-29] MEDS: OMEGA-3 1000MG CAPSULE PO SCH (08:46)
[2020-12-29] MEDS: metFORMIN (GLUCOPHAGE) 1000 MG TABLET PO SCH ×2 (08:48→17:30)
[2020-12-29] MEDS: ASPIRIN 81MG ENTERIC TABLET PO SCH (08:49)
[2020-12-29] MEDS: BENZTROPINE 1 MG TAB PO SCH ×2 (08:49→20:52)
[2020-12-29] MEDS: OMEPRAZOLE 20 MG CAP PO SCH (08:49)
[2020-12-29] MEDS: DOCUSATE SODIUM 100MG CAPSULE PO SCH ×2 (08:49→20:51)
[2020-12-29] MEDS: VITAMIN D (CHOLECALCIFEROL) 400 INTERNATIONAL UNITS TAB PO SCH (08:52)
[2020-12-29] MEDS: atenoloL 25 MG TAB PO SCH ×2 (08:52→20:51)
[2020-12-29] MEDS: oxyBUTYnin 5 MG TAB PO SCH (08:54)
--- NOTE | 2020-12-29 13:31 | MHIPNPDOC ---
[facility] Progress Note Progress Note DATE OF SERVICE: 12/29/20 HISTORY OF THE PRESENT ILLNESS: Patient is a 50 -year-old , male, who [has extensive history of bipolar disorder since his early 20s with numerous previous inpatient treatment. He has been living at a [facility] penitentiary since his discharge from [facility] in January 2010. Patient was brought to emergency room from his penitentiary after he became extremely delusional disorganized and paranoid. Patient has been maintained on long- acting Haldol injection and Lamictal and remained marginally stable but in the p ast few weeks he has been showing decreasing sleep and increasing psychomotor agitation. On the day of his admission patient was becoming grossly disorganized and paranoid and refusing his regular medications and reportedly ran out of his penitentiary and was running away claiming that he was going to an emergency room. He was brought to emergency room by police and ambulance and a dmitted on 939 status. On the unit patient was very pressured and agitated required extra medications of Haldol and Ativan. On examination with MD patient is a little subdued and is in better control but his speech is very pressured flighty and not making much sense. He does not know why he is here but admits that he has not been sleeping but other than that he is denying any command hallucination and denies any suicidal or homicidal thoughts but not able to give any coherent rational account of the events leading to his admission. He denies any substance abuse claims that he has been taking his medications but does not know what medicine he was taking. Again he was grossly disorganized and flighty and grossly manic yesterday, today patient is less manic but states "I had covid infection 7 times and was told I cannot get it again." Patient complained that Haldol was making him sleepy but he appeared wide-awake and communicative. There is a limitation of what type of medications he can use. Placement at [place] is planned Patient continues pleasant today speech today is slightly more rapid rate. More thought disordered than yesterday. Kristin seems better controlled. No noticeable side effects. He is apparently unable to function in his present surrounding he continues to be tangential with loose associations but less so VITAL SIGNS: See below. NEW TEST RESULTS: None. CURRENT MEDICATIONS: See below. MENTAL STATUS EXAMINATION: Patient is a 50-year old male, who is suffering from a long history of bipolar disorder. Speech: Is rapid but less so. Language skills are intact. Thought processes including: Normal rate and rhythm no gross thought abnormalities Thought content: As above. Abstract reasoning, and computation: Poor abstraction. Description of associations: No loose associations. Description of abnormal or psychotic thoughts: Less loose associations no grandiosity expressed today. Judgment: Poor. Insight: Poor. Orientation: X3. Recent and remote memory: Distorted. Attention span and concentration: Poor. Language: Intact. Fund of knowledge: Reasonable. Mood: Elevated. Affect: Bright DIAGNOSES: 1. Bipolar disorder manic type. 2. None. 3. None. VITAL SIGNS: See below. ASSESSMENT: Bipolar disorder improving MANAGEMENT PLAN: Continue medications continue interviewing. TIME SPENT: 35 minutes. Vital Signs Vital Signs Date Time Temp Pulse Resp B/P (MAP) Pulse Ox O2 Delivery O2 Flow Rate FiO2 12/29/20 08:52 83 130/93 12/29/20 06:53 97.0 18 95 Room Air Current Medications Current Medications Medications (Trade) Dose Ordered Sig/Kailey Route PRN Reason Start Time Stop Time Status Last Admin Dose Admin Acetaminophen (Tylenol Tab) 650 mg Q6HP PRN PO HEADACHE or MILD DISCOMFORT 12/01/20 16:05 12/28/20 00:55 Acetaminophen (Tylenol Tab) 650 mg Q6HP PRN PO HEADACHE or MILD DISCOMFORT 11/18/20 12:40 11/24/20 01:45 DC 11/23/20 03:09 Al Hydrox/Mg Hydrox/Simethicone (Mylanta) 30 ml Q4HP PRN PO HEARTBURN/INDIGESTION 11/18/20 12:40 11/24/20 01:45 DC 11/23/20 22:34 Amlodipine Besylate (Norvasc) 10 mg DAILY PO 11/19/20 09:00 11/22/20 08:55 DC 11/22/20 08:20 Aspirin (Ecotrin) 81 mg DAILY PO 11/24/20 09:00 12/29/20 08:49 Aspirin (Ecotrin) 81 mg QAM PO 11/22/20 09:00 11/24/20 01:45 DC 11/23/20 07:58 Atenolol (Tenormin) 25 mg BID PO 11/22/20 09:00 11/22/20 12:53 DC 11/22/20 09:51 Atenolol (Tenormin) 25 mg BID PO 11/24/20 09:00 12/29/20 08:52 Atenolol (Tenormin) 50 mg BID PO 11/22/20 21:00 11/24/20 00:13 DC 11/23/20 21:16 Atorvastatin Calcium (Lipitor) 40 mg QHS PO 11/18/20 21:00 11/24/20 01:45 DC 11/23/20 21:16 Atorvastatin Calcium (Lipitor) 40 mg QHS PO 11/24/20 21:00 12/28/20 21:20 Benztropine Mesylate (Cogentin) 1 mg BID PO 11/18/20 09:00 11/24/20 01:45 DC 11/23/20 21:15 Benztropine Mesylate (Cogentin) 1 mg BID PO 11/24/20 09:00 12/29/20 08:49 Cyclobenzaprine HCl (Flexeril) 10 mg QHS PO 11/20/20 21:00 11/24/20 01:45 DC 11/23/20 21:16 Cyclobenzaprine HCl (Flexeril) 10 mg QHS PO 11/24/20 21:00 12/28/20 21:19 Diphenhydramine HCl (Benadryl) 50 mg Q8HP PRN PO AGITATION 11/19/20 09:10 11/24/20 01:45 DC 11/23/20 17:51 Diphenhydramine HCl (Benadryl) 50 mg Q8HP PRN PO AGITATION 11/24/20 10:55 12/28/20 15:46 Diphenhydramine HCl (Benadryl) 50 mg STAT STAT IM 11/26/20 02:41 11/26/20 02:44 DC 11/26/20 02:53 Diphenhydramine HCl (Benadryl) 50 mg STAT STAT PO 11/19/20 06:48 11/19/20 06:50 DC 11/19/20 07:06 Docusate Sodium (Colace) 100 mg BID PO 11/18/20 21:00 11/24/20 01:45 DC 11/23/20 21:15 Docusate Sodium (Colace) 100 mg BID PO 11/24/20 09:00 12/29/20 08:49 Fish Oil ([place]-3 (1000mg)) 1 cap DAILY PO 12/06/20 09:00 12/29/20 08:46 Fluticasone Propionate (Flonase 0.05% Nasal [place]) 2 spray DAILY NARES 11/19/20 09:00 11/24/20 01:45 DC 11/23/20 08:01 Fluticasone Propionate (Flonase 0.05% Nasal [place]) 2 spray DAILY NARES 11/24/20 09:00 12/29/20 08:46 Haloperidol (Haldol) 10 mg Q8HP PRN PO AGITATION 11/19/20 09:10 11/24/20 01:45 DC 11/23/20 23:21 Haloperidol (Haldol) 10 mg Q8HP PRN PO AGITATION 11/24/20 10:55 12/28/20 15:46 Haloperidol (Haldol) 10 mg QHS PO 11/19/20 21:00 11/19/20 09:48 DC Haloperidol (Haldol) 10 mg QHS PO 11/19/20 21:00 11/24/20 01:45 DC 11/23/20 21:16 Haloperidol (Haldol) 10 mg QHS PO 11/24/20 21:00 12/11/20 10:47 DC 12/10/20 21:45 Haloperidol (Haldol) 10 mg QHS PO 12/19/20 21:00 12/28/20 21:18 Haloperidol (Haldol) 10 mg STAT STAT IM 11/26/20 02:41 11/26/20 02:44 DC 11/26/20 02:52 Haloperidol (Haldol) 10 mg STAT STAT PO 11/19/20 06:48 11/19/20 06:50 DC 11/19/20 07:06 Haloperidol (Haldol) 15 mg QHS PO 12/11/20 21:00 12/19/20 10:34 DC 12/18/20 20:05 Haloperidol Decanoate (Haldol Decanoate) 100 mg Q28D IM 11/28/20 12:00 12/26/20 12:49 Home Med (Med Rec Complete!) ASDIRECTED XX 11/17/20 23:25 11/17/20 23:24 DC Ibuprofen (Advil) 800 mg Q8H PO 12/11/20 14:00 12/29/20 06:04 Lamotrigine (LaMICtal) 200 mg DAILY PO 11/18/20 09:00 11/24/20 01:45 DC 11/23/20 08:00 Lamotrigine (LaMICtal) 200 mg DAILY PO 11/24/20 09:00 12/29/20 08:46 Levothyroxine Sodium (Synthroid) 100 mcg DAILY@06 PO 11/24/20 06:00 12/29/20 06:03 Levothyroxine Sodium (Synthroid) 100 mcg DAILY@0600 PO 11/19/20 06:00 11/24/20 01:45 DC 11/23/20 05:05 Lorazepam (Ativan) 2 mg Q8HP PRN PO ANXIETY/AGITATION 12/02/20 12:05 12/27/20 17:25 Lorazepam (Ativan) 2 mg Q8HP PRN PO AGITATION 11/19/20 09:10 11/24/20 01:45 DC 11/23/20 23:21 Lorazepam (Ativan) 2 mg Q8HP PRN PO AGITATION 11/24/20 10:55 12/01/20 10:54 DC 11/30/20 22:04 Lorazepam (Ativan) 2 mg STAT STAT IM 11/26/20 02:41 11/26/20 02:44 DC 11/26/20 02:53 Lorazepam (Ativan) 2 mg STAT STAT PO 11/19/20 06:48 11/19/20 06:50 DC 11/19/20 07:06 Losartan Potassium (Cozaar) 50 mg DAILY PO 11/19/20 09:00 11/22/20 08:55 DC 11/22/20 08:20 Magnesium Hydroxide (Milk Of Magnesia) 30 ml DAILYPRN PRN PO CONSTIPATION 11/18/20 12:40 11/24/20 01:45 DC Magnesium Hydroxide (Milk Of Magnesia) 30 ml DAILYPRN PRN PO CONSTIPATION 11/24/20 10:55 Menthol/Methyl Salicylate (Bengay Cream) Allow patient to apply t... BID PRN TOP MILD PAIN (PS 1-4) 12/19/20 11:40 12/28/20 23:44 Metformin HCl (Glucophage) 1,000 mg BID@08,18 PO 11/24/20 08:00 12/29/20 08:48 Metformin HCl (Glucophage) 1,000 mg BID@0800,1800 PO 11/18/20 18:00 11/24/20 01:45 DC 11/23/20 17:34 Miscellaneous (Unresolved Clarification Entry) SEE LABEL COMMENTS DAILY XX 11/30/20 09:00 12/02/20 09:53 DC Miscellaneous (Unresolved Clarification Entry) SEE LABEL COMMENTS DAILY XX 12/02/20 09:00 12/02/20 12:12 DC Miscellaneous (Unresolved Clarification Entry) SEE LABEL COMMENTS DAILY XX 12/13/20 09:00 12/15/20 10:07 DC Miscellaneous (Unresolved Clarification Entry) SEE LABEL COMMENTS DAILY XX 12/22/20 09:00 12/24/20 14:02 DC Montelukast Sodium (Singulair) 10 mg QHS PO 11/18/20 21:00 11/24/20 01:45 DC 11/23/20 21:15 Montelukast Sodium (Singulair) 10 mg QHS PO 11/24/20 21:00 12/28/20 21:20 Omeprazole (PriLOSEC) 20 mg DAILY PO 12/11/20 09:00 12/29/20 08:49 Oxybutynin Chloride (Ditropan) 5 mg DAILY PO 11/19/20 09:00 11/24/20 01:45 DC 11/23/20 08:00 Oxybutynin Chloride (Ditropan) 5 mg DAILY PO 11/24/20 09:00 12/29/20 08:54 Propranolol HCl (Inderal) 10 mg BID PO 11/18/20 21:00 11/22/20 08:55 DC 11/22/20 08:20 Quetiapine Fumarate (SEROquel) 200 mg QHS PO 11/19/20 21:00 11/24/20 01:45 DC 11/23/20 21:15 Quetiapine Fumarate (SEROquel) 200 mg QHS PO 11/24/20 21:00 12/04/20 08:57 DC 12/03/20 20:20 Quetiapine Fumarate (SEROquel) 300 mg QHS PO 12/04/20 21:00 12/28/20 21:19 Tamsulosin HCl (Flomax) 0.8 mg DAILY PO 11/19/20 09:00 11/24/20 01:45 DC 11/23/20 08:01 Tamsulosin HCl (Flomax) 0.8 mg DAILY PO 11/24/20 09:00 12/29/20 08:46 Trazodone HCl (Desyrel) 100 mg QPM PO 11/18/20 21:00 11/24/20 01:45 DC 11/23/20 21:16 Trazodone HCl (Desyrel) 100 mg QPM PO 11/24/20 21:00 12/28/20 21:19 Vitamin D (Vitamin D) 400 units DAILY PO 11/19/20 09:00 11/24/20 01:45 DC 11/23/20 08:00 Vitamin D (Vitamin D) 400 units DAILY PO 11/24/20 09:00 12/29/20 08:52 Allergies Coded Allergies: Penicillins (Verified Allergy, Intermediate, rash, 01/02/19) latex (Verified Allergy, Intermediate, rash, 12/13/19) divalproex sodium (Verified Allergy, Unknown, 01/02/19) JEREMIAH ANDERSON MD Dec 29, 2020 13:31
[2020-12-29] MEDS: diphenhydrAMINE 50MG CAP PO PRN (17:30)
[2020-12-29] MEDS: LORazepam 2 MG TAB PO PRN (17:33)
[2020-12-29 17:52] VITALS: BP 176/88
[2020-12-29] MEDS: CYCLOBENZAPRINE 10MG TABLET PO SCH (20:51)
[2020-12-29] MEDS: MONTELUKAST 10 MG TAB PO SCH (20:51)
[2020-12-29] MEDS: traZODone 100 MG TAB PO SCH (20:52)
[2020-12-29] MEDS: QUEtiapine FUMARATE 100 MG TAB PO SCH (20:52)
[2020-12-29] MEDS: ATORVASTATIN 20 MG TAB PO SCH (20:52)
[2020-12-29] MEDS: haloperidoL 5 MG TAB PO SCH (20:52)
[2020-12-29] MEDS: ANALGESIC BALM CRM 3OZ TOP PRN (22:38)
[2020-12-30] MEDS: ACETAMINOPHEN TAB 650MG DOSE (2X325MG) PO PRN (04:00)
[2020-12-30] MEDS: LEVOTHYROXINE 100MCG TABLET (0.1MG) PO SCH (05:03)
[2020-12-30] MEDS: IBUPROFEN 800 MG TAB PO SCH ×3 (05:04→23:00)
[2020-12-30 06:10] VITALS: BP 163/83
[2020-12-30] MEDS: OMEPRAZOLE 20 MG CAP PO SCH (08:02)
[2020-12-30] MEDS: FLUTICASONE PROP 0.05% NASAL SPRAY 16 GM (FLONASE) NARES SCH (08:02)
[2020-12-30] MEDS: OMEGA-3 1000MG CAPSULE PO SCH (08:02)
[2020-12-30] MEDS: BENZTROPINE 1 MG TAB PO SCH ×2 (08:02→20:55)
[2020-12-30] MEDS: ANALGESIC BALM CRM 3OZ TOP PRN ×2 (08:02→23:00)
[2020-12-30] MEDS: VITAMIN D (CHOLECALCIFEROL) 400 INTERNATIONAL UNITS TAB PO SCH (08:03)
[2020-12-30] MEDS: metFORMIN (GLUCOPHAGE) 1000 MG TABLET PO SCH ×2 (08:03→17:01)
[2020-12-30] MEDS: TAMSULOSIN 0.4 MG CAP PO SCH (08:03)
[2020-12-30] MEDS: atenoloL 25 MG TAB PO SCH ×2 (08:03→20:55)
[2020-12-30] MEDS: lamoTRIgine 100MG TAB PO SCH (08:03)
[2020-12-30] MEDS: DOCUSATE SODIUM 100MG CAPSULE PO SCH ×2 (08:03→20:55)
[2020-12-30] MEDS: oxyBUTYnin 5 MG TAB PO SCH (08:03)
[2020-12-30] MEDS: ASPIRIN 81MG ENTERIC TABLET PO SCH (08:03)
--- NOTE | 2020-12-30 16:02 | MHIPNPDOC ---
[facility] Progress Note Progress Note DATE OF SERVICE: 12/30/20 HISTORY OF THE PRESENT ILLNESS: Patient is a 50 -year-old , male, who [has extensive history of bipolar disorder since his early 20s with numerous previous inpatient treatment. He has been living at a [facility] snf since his discharge from [facility] in January 2010. Patient was brought to emergency room from his snf after he became extremely delusional disorganized and paranoid. Patient has been maintained on long- acting Haldol injection and Lamictal and remained marginally stable but in the past few weeks he has been showing decreasing sleep and increasing psychomotor agitation. On the day of his admission patient was becoming grossly disorganized and paranoid and refusing his regular medications and reportedly ran out of his snf and was running away claiming that he was going to an emergency room. He was brought to emergency room by police and ambulance and admitted on 939 status. On the unit patient was very pressured and agitated required extra medications of Haldol and Ativan. On examination with MD patient is a little subdued and is in better control but his speech is very pressured flighty and not making much sense. He does not know why he is here but admits that he has not been sleeping but other than that he is denying any command hallucination and denies any suicidal or homicidal thoughts but not able to give any coherent rational account of the events leading to his admission. He denies any substance abuse claims that he has been taking his medications but does not know what medicine he was taking. Again he was grossly disorganized and flighty and grossly manic yesterday, today patient is less manic but states "I had covid infection 7 times and was told I cannot get it again." Patient complained that Haldol was making him sleepy but he appeared wide-awake and communicative. There is a limitation of what type of medications he can use. Placement at [place] is planned Patient continues pleasant today speech today is slightly more rapid rate. More thought disordered than yesterday. Kristin seems better controlled. No noticeable side effects. He is apparently unable to function in his present surrounding he continues to be tangential with loose associations but less so VITAL SIGNS: See below. NEW TEST RESULTS: None. CURRENT MEDICATIONS: See below. MENTAL STATUS EXAMINATION: Patient is a 50-year old male, who is suffering from a long history of bipolar disorder. Speech: Is rapid Language skills are intact. Thought processes including:rapid rate and rhythm no gross thought abnormalities Thought content: As above. Abstract reasoning, and computation: Poor abstraction. Description of associations: continues loose associations. Description of abnormal or psychotic thoughts: Continues loose associations and grandiosity expressed today. Judgment: Poor. Insight: Poor. Orientation: X3. Recent and remote memory: Distorted. Attention span and concentration: Poor. Language: Intact. Fund of knowledge: Reasonable. Mood: Elevated. Affect: Bright DIAGNOSES: 1. Bipolar disorder manic type. 2. None. 3. None. VITAL SIGNS: See below. ASSESSMENT: Bipolar disorder MANAGEMENT PLAN: Continue medications continue interviewing. Awaiting transfer to [facility] TIME SPENT: 35 minutes. Vital Signs Vital Signs Date Time Temp Pulse Resp B/P (MAP) Pulse Ox O2 Delivery O2 Flow Rate FiO2 12/30/20 08:03 71 158/82 12/30/20 06:10 97.5 16 94 Room Air Current Medications Current Medications Medications (Trade) Dose Ordered Sig/Kailey Route PRN Reason Start Time Stop Time Status Last Admin Dose Admin Acetaminophen (Tylenol Tab) 650 mg Q6HP PRN PO HEADACHE or MILD DISCOMFORT 12/01/20 16:05 12/30/20 04:00 Acetaminophen (Tylenol Tab) 650 mg Q6HP PRN PO HEADACHE or MILD DISCOMFORT 11/18/20 12:40 11/24/20 01:45 DC 11/23/20 03:09 Al Hydrox/Mg Hydrox/Simethicone (Mylanta) 30 ml Q4HP PRN PO HEARTBURN/INDIGESTION 11/18/20 12:40 11/24/20 01:45 DC 11/23/20 22:34 Amlodipine Besylate (Norvasc) 10 mg DAILY PO 11/19/20 09:00 11/22/20 08:55 DC 11/22/20 08:20 Aspirin (Ecotrin) 81 mg DAILY PO 11/24/20 09:00 12/30/20 08:03 Aspirin (Ecotrin) 81 mg QAM PO 11/22/20 09:00 11/24/20 01:45 DC 11/23/20 07:58 Atenolol (Tenormin) 25 mg BID PO 11/22/20 09:00 11/22/20 12:53 DC 11/22/20 09:51 Atenolol (Tenormin) 25 mg BID PO 11/24/20 09:00 12/30/20 08:03 Atenolol (Tenormin) 50 mg BID PO 11/22/20 21:00 11/24/20 00:13 DC 11/23/20 21:16 Atorvastatin Calcium (Lipitor) 40 mg QHS PO 11/18/20 21:00 11/24/20 01:45 DC 11/23/20 21:16 Atorvastatin Calcium (Lipitor) 40 mg QHS PO 11/24/20 21:00 12/29/20 20:52 Benztropine Mesylate (Cogentin) 1 mg BID PO 11/18/20 09:00 11/24/20 01:45 DC 11/23/20 21:15 Benztropine Mesylate (Cogentin) 1 mg BID PO 11/24/20 09:00 12/30/20 08:02 Cyclobenzaprine HCl (Flexeril) 10 mg QHS PO 11/20/20 21:00 11/24/20 01:45 DC 11/23/20 21:16 Cyclobenzaprine HCl (Flexeril) 10 mg QHS PO 11/24/20 21:00 12/29/20 20:51 Diphenhydramine HCl (Benadryl) 50 mg Q8HP PRN PO AGITATION 11/19/20 09:10 11/24/20 01:45 DC 11/23/20 17:51 Diphenhydramine HCl (Benadryl) 50 mg Q8HP PRN PO AGITATION 11/24/20 10:55 12/29/20 17:30 Diphenhydramine HCl (Benadryl) 50 mg STAT STAT IM 11/26/20 02:41 11/26/20 02:44 DC 11/26/20 02:53 Diphenhydramine HCl (Benadryl) 50 mg STAT STAT PO 11/19/20 06:48 11/19/20 06:50 DC 11/19/20 07:06 Docusate Sodium (Colace) 100 mg BID PO 11/18/20 21:00 11/24/20 01:45 DC 11/23/20 21:15 Docusate Sodium (Colace) 100 mg BID PO 11/24/20 09:00 12/30/20 08:03 Fish Oil ([place]-3 (1000mg)) 1 cap DAILY PO 12/06/20 09:00 12/30/20 08:02 Fluticasone Propionate (Flonase 0.05% Nasal [place]) 2 spray DAILY NARES 11/19/20 09:00 11/24/20 01:45 DC 11/23/20 08:01 Fluticasone Propionate (Flonase 0.05% Nasal [place]) 2 spray DAILY NARES 11/24/20 09:00 12/30/20 08:02 Haloperidol (Haldol) 10 mg Q8HP PRN PO AGITATION 11/19/20 09:10 11/24/20 01:45 DC 11/23/20 23:21 Haloperidol (Haldol) 10 mg Q8HP PRN PO AGITATION 11/24/20 10:55 12/29/20 17:32 Haloperidol (Haldol) 10 mg QHS PO 11/19/20 21:00 11/19/20 09:48 DC Haloperidol (Haldol) 10 mg QHS PO 11/19/20 21:00 11/24/20 01:45 DC 11/23/20 21:16 Haloperidol (Haldol) 10 mg QHS PO 11/24/20 21:00 12/11/20 10:47 DC 12/10/20 21:45 Haloperidol (Haldol) 10 mg QHS PO 12/19/20 21:00 12/29/20 20:52 Haloperidol (Haldol) 10 mg STAT STAT IM 11/26/20 02:41 11/26/20 02:44 DC 11/26/20 02:52 Haloperidol (Haldol) 10 mg STAT STAT PO 11/19/20 06:48 11/19/20 06:50 DC 11/19/20 07:06 Haloperidol (Haldol) 15 mg QHS PO 12/11/20 21:00 12/19/20 10:34 DC 12/18/20 20:05 Haloperidol Decanoate (Haldol Decanoate) 100 mg Q28D IM 11/28/20 12:00 12/26/20 12:49 Home Med (Med Rec Complete!) ASDIRECTED XX 11/17/20 23:25 11/17/20 23:24 DC Ibuprofen (Advil) 800 mg Q8H PO 12/11/20 14:00 12/30/20 14:46 Lamotrigine (LaMICtal) 200 mg DAILY PO 11/18/20 09:00 11/24/20 01:45 DC 11/23/20 08:00 Lamotrigine (LaMICtal) 200 mg DAILY PO 11/24/20 09:00 12/30/20 08:03 Levothyroxine Sodium (Synthroid) 100 mcg DAILY@06 PO 11/24/20 06:00 12/30/20 05:03 Levothyroxine Sodium (Synthroid) 100 mcg DAILY@0600 PO 11/19/20 06:00 11/24/20 01:45 DC 11/23/20 05:05 Lorazepam (Ativan) 2 mg Q8HP PRN PO ANXIETY/AGITATION 12/02/20 12:05 12/29/20 17:33 Lorazepam (Ativan) 2 mg Q8HP PRN PO AGITATION 11/19/20 09:10 11/24/20 01:45 DC 11/23/20 23:21 Lorazepam (Ativan) 2 mg Q8HP PRN PO AGITATION 11/24/20 10:55 12/01/20 10:54 DC 11/30/20 22:04 Lorazepam (Ativan) 2 mg STAT STAT IM 11/26/20 02:41 11/26/20 02:44 DC 11/26/20 02:53 Lorazepam (Ativan) 2 mg STAT STAT PO 11/19/20 06:48 11/19/20 06:50 DC 11/19/20 07:06 Losartan Potassium (Cozaar) 50 mg DAILY PO 11/19/20 09:00 11/22/20 08:55 DC 11/22/20 08:20 Magnesium Hydroxide (Milk Of Magnesia) 30 ml DAILYPRN PRN PO CONSTIPATION 11/18/20 12:40 11/24/20 01:45 DC Magnesium Hydroxide (Milk Of Magnesia) 30 ml DAILYPRN PRN PO CONSTIPATION 11/24/20 10:55 Menthol/Methyl Salicylate (Bengay Cream) Allow patient to apply t... BID PRN TOP MILD PAIN (PS 1-4) 12/19/20 11:40 12/30/20 08:02 Metformin HCl (Glucophage) 1,000 mg BID@08,18 PO 11/24/20 08:00 12/30/20 08:03 Metformin HCl (Glucophage) 1,000 mg BID@0800,1800 PO 11/18/20 18:00 11/24/20 01:45 DC 11/23/20 17:34 Miscellaneous (Unresolved Clarification Entry) SEE LABEL COMMENTS DAILY XX 11/30/20 09:00 12/02/20 09:53 DC Miscellaneous (Unresolved Clarification Entry) SEE LABEL COMMENTS DAILY XX 12/02/20 09:00 12/02/20 12:12 DC Miscellaneous (Unresolved Clarification Entry) SEE LABEL COMMENTS DAILY XX 12/13/20 09:00 12/15/20 10:07 DC Miscellaneous (Unresolved Clarification Entry) SEE LABEL COMMENTS DAILY XX 12/30/20 09:00 12/30/20 15:31 DC Miscellaneous (Unresolved Clarification Entry) SEE LABEL COMMENTS DAILY XX 12/30/20 09:00 Cancel Miscellaneous (Unresolved Clarification Entry) SEE LABEL COMMENTS DAILY XX 12/22/20 09:00 12/24/20 14:02 DC Montelukast Sodium (Singulair) 10 mg QHS PO 11/18/20 21:00 11/24/20 01:45 DC 11/23/20 21:15 Montelukast Sodium (Singulair) 10 mg QHS PO 11/24/20 21:00 12/29/20 20:51 Omeprazole (PriLOSEC) 20 mg DAILY PO 12/11/20 09:00 12/30/20 08:02 Oxybutynin Chloride (Ditropan) 5 mg DAILY PO 11/19/20 09:00 11/24/20 01:45 DC 11/23/20 08:00 Oxybutynin Chloride (Ditropan) 5 mg DAILY PO 11/24/20 09:00 12/30/20 08:03 Propranolol HCl (Inderal) 10 mg BID PO 11/18/20 21:00 11/22/20 08:55 DC 11/22/20 08:20 Quetiapine Fumarate (SEROquel) 200 mg QHS PO 11/19/20 21:00 11/24/20 01:45 DC 11/23/20 21:15 Quetiapine Fumarate (SEROquel) 200 mg QHS PO 11/24/20 21:00 12/04/20 08:57 DC 12/03/20 20:20 Quetiapine Fumarate (SEROquel) 300 mg QHS PO 12/04/20 21:00 12/29/20 20:52 Tamsulosin HCl (Flomax) 0.8 mg DAILY PO 11/19/20 09:00 11/24/20 01:45 DC 11/23/20 08:01 Tamsulosin HCl (Flomax) 0.8 mg DAILY PO 11/24/20 09:00 12/30/20 08:03 Trazodone HCl (Desyrel) 100 mg QPM PO 11/18/20 21:00 11/24/20 01:45 DC 11/23/20 21:16 Trazodone HCl (Desyrel) 100 mg QPM PO 11/24/20 21:00 12/29/20 20:52 Vitamin D (Vitamin D) 400 units DAILY PO 11/19/20 09:00 11/24/20 01:45 DC 11/23/20 08:00 Vitamin D (Vitamin D) 400 units DAILY PO 11/24/20 09:00 12/30/20 08:03 Allergies Coded Allergies: Penicillins (Verified Allergy, Intermediate, rash, 01/02/19) latex (Verified Allergy, Intermediate, rash, 12/13/19) divalproex sodium (Verified Allergy, Unknown, 01/02/19) JEREMIAH ANDERSON MD Dec 30, 2020 16:02
[2020-12-30 16:20] VITALS: BP 160/94
[2020-12-30] MEDS: MONTELUKAST 10 MG TAB PO SCH (20:54)
[2020-12-30] MEDS: QUEtiapine FUMARATE 100 MG TAB PO SCH (20:55)
[2020-12-30] MEDS: traZODone 100 MG TAB PO SCH (20:55)
[2020-12-30] MEDS: ATORVASTATIN 20 MG TAB PO SCH (20:55)
[2020-12-30] MEDS: haloperidoL 5 MG TAB PO SCH (20:55)
[2020-12-30] MEDS: CYCLOBENZAPRINE 10MG TABLET PO SCH (20:55)
[2020-12-31] MEDS: LEVOTHYROXINE 100MCG TABLET (0.1MG) PO SCH (05:58)
[2020-12-31] MEDS: IBUPROFEN 800 MG TAB PO SCH ×4 (05:59→23:21)
[2020-12-31 06:21] VITALS: BP 141/67
[2020-12-31] MEDS: metFORMIN (GLUCOPHAGE) 1000 MG TABLET PO SCH ×2 (07:34→17:06)
--- NOTE | 2020-12-31 07:59 | MHIPNPDOC ---
[facility] Progress Note Progress Note DATE OF SERVICE: 12/31/20 HISTORY OF THE PRESENT ILLNESS: Patient is a 50 -year-old , male, who [has extensive history of bipolar disorder since his early 20s with numerous previous inpatient treatment. He has been living at a [facility] snf since his discharge from [facility] in January 2010. Patient was brought to emergency room from his snf after he became extremely delusional disorganized and paranoid. Patient has been maintained on long- acting Haldol injection and Lamictal and remained marginally stable but in the past few weeks he has been showing decreasing sleep and increasing psychomotor agitation. On the day of his admission patient was becoming grossly disorganized and paranoid and refusing his regular medications and reportedly ran out of his snf and was running away claiming that he was going to an emergency room. He was brought to emergency room by police and ambulance and admitted on 939 status. On the unit patient was very pressured and agitated required extra medications of Haldol and Ativan. On examination with MD patient is a little subdued and is in better control but his speech is very pressured flighty and not making much sense. He does not know why he is here but admits that he has not been sleeping but other than that he is denying any command hallucination and denies any suicidal or homicidal thoughts but not able to give any coherent rational account of the events leading to his admission. He denies any substance abuse claims that he has been taking his medications but does not know what medicine he was taking. Again he was grossly disorganized and flighty and grossly manic yesterday, today patient is less manic but states "I had covid infection 7 times and was told I cannot get it again." Patient complained that Haldol was making him sleepy but he appeared wide-awake and communicative. There is a limitation of what type of medications he can use. Placement at [place] is planned Patient continues pleasant today speech today is slightly more rapid rate. Kristin seems better controlled. No noticeable side effects. He is apparently unable to function in his present surroundings He continues to be tangential with loose associations but less so. He is scheduled to be transferred to [facility]. VITAL SIGNS: See below. NEW TEST RESULTS: None. CURRENT MEDICATIONS: See below. MENTAL STATUS EXAMINATION: Patient is a 50-year old male, who is suffering from a long history of bipolar disorder. Speech: Is rapid Language skills are intact. Thought processes including:rapid rate and rhythm no gross thought abnormalities Thought content: As above. Abstract reasoning, and computation: Poor abstraction. Description of associations: continues loose associations. Description of abnormal or psychotic thoughts: Continues loose associations and grandiosity expressed today. Judgment: Poor. Insight: Poor. Orientation: X3. Recent and remote memory: Distorted. Attention span and concentration: Poor. Language: Intact. Fund of knowledge: Reasonable. Mood: Elevated. Affect: Bright DIAGNOSES: 1. Bipolar disorder manic type. 2. None. 3. None. VITAL SIGNS: See below. ASSESSMENT: Bipolar disorder MANAGEMENT PLAN: Continue medications continue interviewing. Awaiting transfer to [facility] TIME SPENT: 35 minutes. VITAL SIGNS: See below. NEW TEST RESULTS: . CURRENT MEDICATIONS: See Vital Signs Vital Signs Date Time Temp Pulse Resp B/P (MAP) Pulse Ox O2 Delivery O2 Flow Rate FiO2 12/31/20 06:21 96.9 69 18 141/67 (91) 95 Room Air Current Medications Current Medications Medications (Trade) Dose Ordered Sig/Kailey Route PRN Reason Start Time Stop Time Status Last Admin Dose Admin Acetaminophen (Tylenol Tab) 650 mg Q6HP PRN PO HEADACHE or MILD DISCOMFORT 12/01/20 16:05 12/30/20 04:00 Acetaminophen (Tylenol Tab) 650 mg Q6HP PRN PO HEADACHE or MILD DISCOMFORT 11/18/20 12:40 11/24/20 01:45 DC 11/23/20 03:09 Al Hydrox/Mg Hydrox/Simethicone (Mylanta) 30 ml Q4HP PRN PO HEARTBURN/INDIGESTION 11/18/20 12:40 11/24/20 01:45 DC 11/23/20 22:34 Amlodipine Besylate (Norvasc) 10 mg DAILY PO 11/19/20 09:00 11/22/20 08:55 DC 11/22/20 08:20 Aspirin (Ecotrin) 81 mg DAILY PO 11/24/20 09:00 12/30/20 08:03 Aspirin (Ecotrin) 81 mg QAM PO 11/22/20 09:00 11/24/20 01:45 DC 11/23/20 07:58 Atenolol (Tenormin) 25 mg BID PO 11/22/20 09:00 11/22/20 12:53 DC 11/22/20 09:51 Atenolol (Tenormin) 25 mg BID PO 11/24/20 09:00 12/30/20 20:55 Atenolol (Tenormin) 50 mg BID PO 11/22/20 21:00 11/24/20 00:13 DC 11/23/20 21:16 Atorvastatin Calcium (Lipitor) 40 mg QHS PO 11/18/20 21:00 11/24/20 01:45 DC 11/23/20 21:16 Atorvastatin Calcium (Lipitor) 40 mg QHS PO 11/24/20 21:00 12/30/20 20:55 Benztropine Mesylate (Cogentin) 1 mg BID PO 11/18/20 09:00 11/24/20 01:45 DC 11/23/20 21:15 Benztropine Mesylate (Cogentin) 1 mg BID PO 11/24/20 09:00 12/30/20 20:55 Cyclobenzaprine HCl (Flexeril) 10 mg QHS PO 11/20/20 21:00 11/24/20 01:45 DC 11/23/20 21:16 Cyclobenzaprine HCl (Flexeril) 10 mg QHS PO 11/24/20 21:00 12/30/20 20:55 Diphenhydramine HCl (Benadryl) 50 mg Q8HP PRN PO AGITATION 11/19/20 09:10 11/24/20 01:45 DC 11/23/20 17:51 Diphenhydramine HCl (Benadryl) 50 mg Q8HP PRN PO AGITATION 11/24/20 10:55 12/29/20 17:30 Diphenhydramine HCl (Benadryl) 50 mg STAT STAT IM 11/26/20 02:41 11/26/20 02:44 DC 11/26/20 02:53 Diphenhydramine HCl (Benadryl) 50 mg STAT STAT PO 11/19/20 06:48 11/19/20 06:50 DC 11/19/20 07:06 Docusate Sodium (Colace) 100 mg BID PO 11/18/20 21:00 11/24/20 01:45 DC 11/23/20 21:15 Docusate Sodium (Colace) 100 mg BID PO 11/24/20 09:00 12/30/20 20:55 Fish Oil ([place]-3 (1000mg)) 1 cap DAILY PO 12/06/20 09:00 12/30/20 08:02 Fluticasone Propionate (Flonase 0.05% Nasal [place]) 2 spray DAILY NARES 11/19/20 09:00 11/24/20 01:45 DC 11/23/20 08:01 Fluticasone Propionate (Flonase 0.05% Nasal [place]) 2 spray DAILY NARES 11/24/20 09:00 12/30/20 08:02 Haloperidol (Haldol) 10 mg Q8HP PRN PO AGITATION 11/19/20 09:10 11/24/20 01:45 DC 11/23/20 23:21 Haloperidol (Haldol) 10 mg Q8HP PRN PO AGITATION 11/24/20 10:55 12/29/20 17:32 Haloperidol (Haldol) 10 mg QHS PO 11/19/20 21:00 11/19/20 09:48 DC Haloperidol (Haldol) 10 mg QHS PO 11/19/20 21:00 11/24/20 01:45 DC 11/23/20 21:16 Haloperidol (Haldol) 10 mg QHS PO 11/24/20 21:00 12/11/20 10:47 DC 12/10/20 21:45 Haloperidol (Haldol) 10 mg QHS PO 12/19/20 21:00 12/30/20 20:55 Haloperidol (Haldol) 10 mg STAT STAT IM 11/26/20 02:41 11/26/20 02:44 DC 11/26/20 02:52 Haloperidol (Haldol) 10 mg STAT STAT PO 11/19/20 06:48 11/19/20 06:50 DC 11/19/20 07:06 Haloperidol (Haldol) 15 mg QHS PO 12/11/20 21:00 12/19/20 10:34 DC 12/18/20 20:05 Haloperidol Decanoate (Haldol Decanoate) 100 mg Q28D IM 11/28/20 12:00 12/26/20 12:49 Home Med (Med Rec Complete!) ASDIRECTED XX 11/17/20 23:25 11/17/20 23:24 DC Ibuprofen (Advil) 800 mg Q8H PO 12/11/20 14:00 12/31/20 05:59 Lamotrigine (LaMICtal) 200 mg DAILY PO 11/18/20 09:00 11/24/20 01:45 DC 11/23/20 08:00 Lamotrigine (LaMICtal) 200 mg DAILY PO 11/24/20 09:00 12/30/20 08:03 Levothyroxine Sodium (Synthroid) 100 mcg DAILY@06 PO 11/24/20 06:00 12/31/20 05:58 Levothyroxine Sodium (Synthroid) 100 mcg DAILY@0600 PO 11/19/20 06:00 11/24/20 01:45 DC 11/23/20 05:05 Lorazepam (Ativan) 2 mg Q8HP PRN PO ANXIETY/AGITATION 12/02/20 12:05 12/29/20 17:33 Lorazepam (Ativan) 2 mg Q8HP PRN PO AGITATION 11/19/20 09:10 11/24/20 01:45 DC 11/23/20 23:21 Lorazepam (Ativan) 2 mg Q8HP PRN PO AGITATION 11/24/20 10:55 12/01/20 10:54 DC 11/30/20 22:04 Lorazepam (Ativan) 2 mg STAT STAT IM 11/26/20 02:41 11/26/20 02:44 DC 11/26/20 02:53 Lorazepam (Ativan) 2 mg STAT STAT PO 11/19/20 06:48 11/19/20 06:50 DC 11/19/20 07:06 Losartan Potassium (Cozaar) 50 mg DAILY PO 11/19/20 09:00 11/22/20 08:55 DC 11/22/20 08:20 Magnesium Hydroxide (Milk Of Magnesia) 30 ml DAILYPRN PRN PO CONSTIPATION 11/18/20 12:40 11/24/20 01:45 DC Magnesium Hydroxide (Milk Of Magnesia) 30 ml DAILYPRN PRN PO CONSTIPATION 11/24/20 10:55 Menthol/Methyl Salicylate (Bengay Cream) Allow patient to apply t... BID PRN TOP MILD PAIN (PS 1-4) 12/19/20 11:40 12/30/20 23:00 Metformin HCl (Glucophage) 1,000 mg BID@08,18 PO 11/24/20 08:00 12/31/20 07:34 Metformin HCl (Glucophage) 1,000 mg BID@0800,1800 PO 11/18/20 18:00 11/24/20 01:45 DC 11/23/20 17:34 Miscellaneous (Unresolved Clarification Entry) SEE LABEL COMMENTS DAILY XX 11/30/20 09:00 12/02/20 09:53 DC Miscellaneous (Unresolved Clarification Entry) SEE LABEL COMMENTS DAILY XX 12/02/20 09:00 12/02/20 12:12 DC Miscellaneous (Unresolved Clarification Entry) SEE LABEL COMMENTS DAILY XX 12/13/20 09:00 12/15/20 10:07 DC Miscellaneous (Unresolved Clarification Entry) SEE LABEL COMMENTS DAILY XX 12/30/20 09:00 12/30/20 15:31 DC Miscellaneous (Unresolved Clarification Entry) SEE LABEL COMMENTS DAILY XX 12/30/20 09:00 Cancel Miscellaneous (Unresolved Clarification Entry) SEE LABEL COMMENTS DAILY XX 12/22/20 09:00 12/24/20 14:02 DC Montelukast Sodium (Singulair) 10 mg QHS PO 11/18/20 21:00 11/24/20 01:45 DC 11/23/20 21:15 Montelukast Sodium (Singulair) 10 mg QHS PO 11/24/20 21:00 12/30/20 20:54 Omeprazole (PriLOSEC) 20 mg DAILY PO 12/11/20 09:00 12/30/20 08:02 Oxybutynin Chloride (Ditropan) 5 mg DAILY PO 11/19/20 09:00 11/24/20 01:45 DC 11/23/20 08:00 Oxybutynin Chloride (Ditropan) 5 mg DAILY PO 11/24/20 09:00 12/30/20 08:03 Propranolol HCl (Inderal) 10 mg BID PO 11/18/20 21:00 11/22/20 08:55 DC 11/22/20 08:20 Quetiapine Fumarate (SEROquel) 200 mg QHS PO 11/19/20 21:00 11/24/20 01:45 DC 11/23/20 21:15 Quetiapine Fumarate (SEROquel) 200 mg QHS PO 11/24/20 21:00 12/04/20 08:57 DC 12/03/20 20:20 Quetiapine Fumarate (SEROquel) 300 mg QHS PO 12/04/20 21:00 12/30/20 20:55 Tamsulosin HCl (Flomax) 0.8 mg DAILY PO 11/19/20 09:00 11/24/20 01:45 DC 11/23/20 08:01 Tamsulosin HCl (Flomax) 0.8 mg DAILY PO 11/24/20 09:00 12/30/20 08:03 Trazodone HCl (Desyrel) 100 mg QPM PO 11/18/20 21:00 11/24/20 01:45 DC 11/23/20 21:16 Trazodone HCl (Desyrel) 100 mg QPM PO 11/24/20 21:00 12/30/20 20:55 Vitamin D (Vitamin D) 400 units DAILY PO 11/19/20 09:00 11/24/20 01:45 DC 11/23/20 08:00 Vitamin D (Vitamin D) 400 units DAILY PO 11/24/20 09:00 12/30/20 08:03 Allergies Coded Allergies: Penicillins (Verified Allergy, Intermediate, rash, 01/02/19) latex (Verified Allergy, Intermediate, rash, 12/13/19) divalproex sodium (Verified Allergy, Unknown, 01/02/19) JEREMIAH ANDERSON MD Dec 31, 2020 07:59
[2020-12-31] MEDS: ANALGESIC BALM CRM 3OZ TOP PRN ×2 (09:15→23:24)
[2020-12-31] MEDS: OMEPRAZOLE 20 MG CAP PO SCH (09:16)
[2020-12-31] MEDS: FLUTICASONE PROP 0.05% NASAL SPRAY 16 GM (FLONASE) NARES SCH (09:16)
[2020-12-31] MEDS: oxyBUTYnin 5 MG TAB PO SCH (09:16)
[2020-12-31] MEDS: DOCUSATE SODIUM 100MG CAPSULE PO SCH ×2 (09:16→20:41)
[2020-12-31] MEDS: OMEGA-3 1000MG CAPSULE PO SCH (09:16)
[2020-12-31] MEDS: ASPIRIN 81MG ENTERIC TABLET PO SCH (09:16)
[2020-12-31] MEDS: lamoTRIgine 100MG TAB PO SCH (09:17)
[2020-12-31] MEDS: VITAMIN D (CHOLECALCIFEROL) 400 INTERNATIONAL UNITS TAB PO SCH (09:17)
[2020-12-31] MEDS: BENZTROPINE 1 MG TAB PO SCH ×2 (09:17→20:41)
[2020-12-31] MEDS: atenoloL 25 MG TAB PO SCH ×2 (09:17→20:41)
[2020-12-31] MEDS: TAMSULOSIN 0.4 MG CAP PO SCH (09:17)
[2020-12-31 16:28] VITALS: BP 158/94
[2020-12-31] MEDS: haloperidoL 5 MG TAB PO SCH (20:41)
[2020-12-31] MEDS: CYCLOBENZAPRINE 10MG TABLET PO SCH (20:41)
[2020-12-31] MEDS: MONTELUKAST 10 MG TAB PO SCH (20:41)
[2020-12-31] MEDS: QUEtiapine FUMARATE 100 MG TAB PO SCH (20:42)
[2020-12-31] MEDS: traZODone 100 MG TAB PO SCH (20:42)
[2020-12-31] MEDS: ATORVASTATIN 20 MG TAB PO SCH (20:42)
[2021-01-01] MEDS: LEVOTHYROXINE 100MCG TABLET (0.1MG) PO SCH (06:17)
[2021-01-01] MEDS: IBUPROFEN 800 MG TAB PO SCH ×3 (06:18→21:11)
[2021-01-01 06:53] VITALS: BP 152/79
[2021-01-01] MEDS: metFORMIN (GLUCOPHAGE) 1000 MG TABLET PO SCH (07:34)
[2021-01-01] MEDS: OMEPRAZOLE 20 MG CAP PO SCH (09:01)
[2021-01-01] MEDS: DOCUSATE SODIUM 100MG CAPSULE PO SCH ×2 (09:01→21:10)
[2021-01-01] MEDS: oxyBUTYnin 5 MG TAB PO SCH (09:01)
[2021-01-01] MEDS: atenoloL 25 MG TAB PO SCH ×2 (09:01→21:10)
[2021-01-01] MEDS: TAMSULOSIN 0.4 MG CAP PO SCH (09:01)
[2021-01-01] MEDS: FLUTICASONE PROP 0.05% NASAL SPRAY 16 GM (FLONASE) NARES SCH (09:01)
[2021-01-01] MEDS: ASPIRIN 81MG ENTERIC TABLET PO SCH (09:01)
[2021-01-01] MEDS: BENZTROPINE 1 MG TAB PO SCH ×2 (09:01→21:11)
[2021-01-01] MEDS: OMEGA-3 1000MG CAPSULE PO SCH (09:01)
[2021-01-01] MEDS: VITAMIN D (CHOLECALCIFEROL) 400 INTERNATIONAL UNITS TAB PO SCH (09:01)
[2021-01-01] MEDS: lamoTRIgine 100MG TAB PO SCH (09:01)
[2021-01-01] MEDS: ANALGESIC BALM CRM 3OZ TOP PRN (09:02)
--- NOTE | 2021-01-01 12:36 | MHIPNPDOC ---
[facility] Progress Note Progress Note DATE OF SERVICE: 01/01/21 HISTORY: Patient a 50 y/o man with a past history of bipolar disorder and numerous admissions since his 20's. Was d/c from [facility] Jan 2010 and living in [facility] longterm since. Was admitted on this occasion due to disorganized and paranoid behavior. Currently remains in contact isolation due to possible exposure previous treatment nursing staff. Interval: Charts reviewed, no change, patient continues to be internally preoccupied, hypomanic with signs of behavioral indiscretion at times getting frustrated stating he had very little sleep last night, but able to be redirected at times. He later apologized to myself for the outburst stating he just wanted BenGay twice a day and his Biotene medications. Wants to eat and eating a full breakfast. Overall when compared to chart review seems more calm walking around the hallway. Denies medication side effects or acute physical concerns. VITAL SIGNS: See below. NEW TEST RESULTS: None. CURRENT MEDICATIONS: See below. MENTAL STATUS EXAMINATION: Patient is a 50-year old male, wearing masks and glasses without redirection, no acute distress, elevated BMI, somewhat improved hygiene Speech: spontaneous, normal rate Language skills are poor. Thought processes including: Remains disorganized, tangential at times. Thought content: Denies Suicidal thoughts, intent or plan. Abstract reasoning, and computation: unable to fully assess. Description of associations: concrete Description of abnormal or psychotic thoughts: AH, states he hears voices from his childhood, not scary. Judgment: poor Insight: poor Orientation: to person, place, time Recent and remote memory: poor Attention span and concentration: Poor, distractible Language: Niuean Fund of knowledge: Below average Mood: "Frustrated" affect: Irritable mood at times, elevated at times, internally preoccupied at times. DIAGNOSES: 1. Bipolar disorder, mixed episode per hx 2. R/O schizoaffective disorder, bipolar type ASSESSMENT: Less manic than previous stays more stable with continued periods where he has outbursts with irritability and agitation and mood fluctuations. MANAGEMENT PLAN: Has AOT, pending [facility] placement. Continue coordination with social work. Ordered BenGay cream to be applied twice a day to reported joint pain in legs. Ordered xylitol mouthwash for xerostomia, Biotene was unavailable per formulary. TIME SPENT: 20 minutes. Vital Signs Vital Signs Date Time Temp Pulse Resp B/P (MAP) Pulse Ox O2 Delivery O2 Flow Rate FiO2 01/01/21 09:01 86 142/80 01/01/21 06:53 98.0 18 95 Room Air Current Medications Current Medications Medications (Trade) Dose Ordered Sig/Kailey Route PRN Reason Start Time Stop Time Status Last Admin Dose Admin Acetaminophen (Tylenol Tab) 650 mg Q6HP PRN PO HEADACHE or MILD DISCOMFORT 12/01/20 16:05 12/30/20 04:00 Acetaminophen (Tylenol Tab) 650 mg Q6HP PRN PO HEADACHE or MILD DISCOMFORT 11/18/20 12:40 11/24/20 01:45 DC 11/23/20 03:09 Al Hydrox/Mg Hydrox/Simethicone (Mylanta) 30 ml Q4HP PRN PO HEARTBURN/INDIGESTION 11/18/20 12:40 11/24/20 01:45 DC 11/23/20 22:34 Amlodipine Besylate (Norvasc) 10 mg DAILY PO 11/19/20 09:00 11/22/20 08:55 DC 11/22/20 08:20 Aspirin (Ecotrin) 81 mg DAILY PO 11/24/20 09:00 01/01/21 09:01 Aspirin (Ecotrin) 81 mg QAM PO 11/22/20 09:00 11/24/20 01:45 DC 11/23/20 07:58 Atenolol (Tenormin) 25 mg BID PO 11/22/20 09:00 11/22/20 12:53 DC 11/22/20 09:51 Atenolol (Tenormin) 25 mg BID PO 11/24/20 09:00 01/01/21 09:01 Atenolol (Tenormin) 50 mg BID PO 11/22/20 21:00 11/24/20 00:13 DC 11/23/20 21:16 Atorvastatin Calcium (Lipitor) 40 mg QHS PO 11/18/20 21:00 11/24/20 01:45 DC 11/23/20 21:16 Atorvastatin Calcium (Lipitor) 40 mg QHS PO 11/24/20 21:00 12/31/20 20:42 Benztropine Mesylate (Cogentin) 1 mg BID PO 11/18/20 09:00 11/24/20 01:45 DC 11/23/20 21:15 Benztropine Mesylate (Cogentin) 1 mg BID PO 11/24/20 09:00 01/01/21 09:01 Cyclobenzaprine HCl (Flexeril) 10 mg QHS PO 11/20/20 21:00 11/24/20 01:45 DC 11/23/20 21:16 Cyclobenzaprine HCl (Flexeril) 10 mg QHS PO 11/24/20 21:00 12/31/20 20:41 Diphenhydramine HCl (Benadryl) 50 mg Q8HP PRN PO AGITATION 11/19/20 09:10 11/24/20 01:45 DC 11/23/20 17:51 Diphenhydramine HCl (Benadryl) 50 mg Q8HP PRN PO AGITATION 11/24/20 10:55 12/29/20 17:30 Diphenhydramine HCl (Benadryl) 50 mg STAT STAT IM 11/26/20 02:41 11/26/20 02:44 DC 11/26/20 02:53 Diphenhydramine HCl (Benadryl) 50 mg STAT STAT PO 11/19/20 06:48 11/19/20 06:50 DC 11/19/20 07:06 Docusate Sodium (Colace) 100 mg BID PO 11/18/20 21:00 11/24/20 01:45 DC 11/23/20 21:15 Docusate Sodium (Colace) 100 mg BID PO 11/24/20 09:00 01/01/21 09:01 Fish Oil ([place]-3 (1000mg)) 1 cap DAILY PO 12/06/20 09:00 01/01/21 09:01 Fluticasone Propionate (Flonase 0.05% Nasal [place]) 2 spray DAILY NARES 11/19/20 09:00 11/24/20 01:45 DC 11/23/20 08:01 Fluticasone Propionate (Flonase 0.05% Nasal [place]) 2 spray DAILY NARES 11/24/20 09:00 01/01/21 09:01 Guaifenesin/ Dextromethorphan (Robitussin Dm) 10 ml Q4HP PRN PO COUGH 01/01/21 11:40 Haloperidol (Haldol) 10 mg Q8HP PRN PO AGITATION 11/19/20 09:10 11/24/20 01:45 DC 11/23/20 23:21 Haloperidol (Haldol) 10 mg Q8HP PRN PO AGITATION 11/24/20 10:55 01/01/21 09:01 Haloperidol (Haldol) 10 mg QHS PO 11/19/20 21:00 11/19/20 09:48 DC Haloperidol (Haldol) 10 mg QHS PO 11/19/20 21:00 11/24/20 01:45 DC 11/23/20 21:16 Haloperidol (Haldol) 10 mg QHS PO 11/24/20 21:00 12/11/20 10:47 DC 12/10/20 21:45 Haloperidol (Haldol) 10 mg QHS PO 12/19/20 21:00 12/31/20 20:41 Haloperidol (Haldol) 10 mg STAT STAT IM 11/26/20 02:41 11/26/20 02:44 DC 11/26/20 02:52 Haloperidol (Haldol) 10 mg STAT STAT PO 11/19/20 06:48 11/19/20 06:50 DC 11/19/20 07:06 Haloperidol (Haldol) 15 mg QHS PO 12/11/20 21:00 12/19/20 10:34 DC 12/18/20 20:05 Haloperidol Decanoate (Haldol Decanoate) 100 mg Q28D IM 11/28/20 12:00 12/26/20 12:49 Home Med (Med Rec Complete!) ASDIRECTED XX 11/17/20 23:25 11/17/20 23:24 DC Ibuprofen (Advil) 800 mg Q8H PO 12/11/20 14:00 01/01/21 06:18 Lamotrigine (LaMICtal) 200 mg DAILY PO 11/18/20 09:00 11/24/20 01:45 DC 11/23/20 08:00 Lamotrigine (LaMICtal) 200 mg DAILY PO 11/24/20 09:00 01/01/21 09:01 Levothyroxine Sodium (Synthroid) 100 mcg DAILY@06 PO 11/24/20 06:00 01/01/21 06:17 Levothyroxine Sodium (Synthroid) 100 mcg DAILY@0600 PO 11/19/20 06:00 11/24/20 01:45 DC 11/23/20 05:05 Lorazepam (Ativan) 2 mg Q8HP PRN PO ANXIETY/AGITATION 12/02/20 12:05 12/29/20 17:33 Lorazepam (Ativan) 2 mg Q8HP PRN PO AGITATION 11/19/20 09:10 11/24/20 01:45 DC 11/23/20 23:21 Lorazepam (Ativan) 2 mg Q8HP PRN PO AGITATION 11/24/20 10:55 12/01/20 10:54 DC 11/30/20 22:04 Lorazepam (Ativan) 2 mg STAT STAT IM 11/26/20 02:41 11/26/20 02:44 DC 11/26/20 02:53 Lorazepam (Ativan) 2 mg STAT STAT PO 11/19/20 06:48 11/19/20 06:50 DC 11/19/20 07:06 Losartan Potassium (Cozaar) 50 mg DAILY PO 11/19/20 09:00 11/22/20 08:55 DC 11/22/20 08:20 Magnesium Hydroxide (Milk Of Magnesia) 30 ml DAILYPRN PRN PO CONSTIPATION 11/18/20 12:40 11/24/20 01:45 DC Magnesium Hydroxide (Milk Of Magnesia) 30 ml DAILYPRN PRN PO CONSTIPATION 11/24/20 10:55 Menthol/Methyl Salicylate (Bengay Cream) Allow patient to apply t... BID PRN TOP MILD PAIN (PS 1-4) 12/19/20 11:40 01/01/21 09:02 Metformin HCl (Glucophage) 1,000 mg BID@08,18 PO 11/24/20 08:00 01/01/21 07:34 Metformin HCl (Glucophage) 1,000 mg BID@0800,1800 PO 11/18/20 18:00 11/24/20 01:45 DC 11/23/20 17:34 Miscellaneous (Unresolved Clarification Entry) SEE LABEL COMMENTS DAILY XX 11/30/20 09:00 12/02/20 09:53 DC Miscellaneous (Unresolved Clarification Entry) SEE LABEL COMMENTS DAILY XX 12/02/20 09:00 12/02/20 12:12 DC Miscellaneous (Unresolved Clarification Entry) SEE LABEL COMMENTS DAILY XX 12/13/20 09:00 12/15/20 10:07 DC Miscellaneous (Unresolved Clarification Entry) SEE LABEL COMMENTS DAILY XX 12/30/20 09:00 12/30/20 15:31 DC Miscellaneous (Unresolved Clarification Entry) SEE LABEL COMMENTS DAILY XX 12/30/20 09:00 Cancel Miscellaneous (Unresolved Clarification Entry) SEE LABEL COMMENTS DAILY XX 12/22/20 09:00 12/24/20 14:02 DC Montelukast Sodium (Singulair) 10 mg QHS PO 11/18/20 21:00 11/24/20 01:45 DC 11/23/20 21:15 Montelukast Sodium (Singulair) 10 mg QHS PO 11/24/20 21:00 12/31/20 20:41 Omeprazole (PriLOSEC) 20 mg DAILY PO 12/11/20 09:00 01/01/21 09:01 Oxybutynin Chloride (Ditropan) 5 mg DAILY PO 11/19/20 09:00 11/24/20 01:45 DC 11/23/20 08:00 Oxybutynin Chloride (Ditropan) 5 mg DAILY PO 11/24/20 09:00 01/01/21 09:01 Propranolol HCl (Inderal) 10 mg BID PO 11/18/20 21:00 11/22/20 08:55 DC 11/22/20 08:20 Quetiapine Fumarate (SEROquel) 200 mg QHS PO 11/19/20 21:00 11/24/20 01:45 DC 11/23/20 21:15 Quetiapine Fumarate (SEROquel) 200 mg QHS PO 11/24/20 21:00 12/04/20 08:57 DC 12/03/20 20:20 Quetiapine Fumarate (SEROquel) 300 mg QHS PO 12/04/20 21:00 12/31/20 20:42 Tamsulosin HCl (Flomax) 0.8 mg DAILY PO 11/19/20 09:00 11/24/20 01:45 DC 11/23/20 08:01 Tamsulosin HCl (Flomax) 0.8 mg DAILY PO 11/24/20 09:00 01/01/21 09:01 Trazodone HCl (Desyrel) 100 mg QPM PO 11/18/20 21:00 11/24/20 01:45 DC 11/23/20 21:16 Trazodone HCl (Desyrel) 100 mg QPM PO 11/24/20 21:00 12/31/20 20:42 Vitamin D (Vitamin D) 400 units DAILY PO 11/19/20 09:00 11/24/20 01:45 DC 11/23/20 08:00 Vitamin D (Vitamin D) 400 units DAILY PO 11/24/20 09:00 01/01/21 09:01 Allergies Coded Allergies: Penicillins (Verified Allergy, Intermediate, rash, 01/02/19) latex (Verified Allergy, Intermediate, rash, 12/13/19) divalproex sodium (Verified Allergy, Unknown, 01/02/19) AYESHA MOLINA MD Jan 01, 2021 12:36
[2021-01-01 12:45] LABS: BASO # 0.1 10^3/uL (0.0-0.2); BASO % 0.7 % (0.0-1.0); EOS # 0.6 10^3/uL (0.0-0.5); EOS % 5.6 % (0.0-3.0); HEMATOCRIT 42.8 % (42.0-52.0); HEMOGLOBIN 14.3 g/dl (13.5-17.5); LYMPH # 1.7 10^3/uL (1.5-5.0); LYMPH % 15.6 % (24.0-44.0); MEAN CORPUSCULAR HEMOGLOBIN 28.2 pg (27.0-33.0); MEAN CORPUSCULAR HGB CONC 33.4 g/dl (32.0-36.5); MEAN CORPUSCULAR VOLUME 84.4 fl (80.0-96.0); MONO # 0.9 10^3/uL (0.0-0.8); MONO % 8.8 % (2.0-8.0); NEUTROPHILS # 7.1 10^3/uL (1.5-8.5); NEUTROPHILS % 67.2 % (36.0-66.0); PLATELET COUNT, AUTOMATED 256 10^3/uL (150-450); RED BLOOD COUNT 5.07 10^6/uL (4.30-6.10); WHITE BLOOD COUNT 10.6 10^3/uL (4.0-10.0)
[2021-01-01 13:12] LABS: ALT/SGPT 38 U/L (12-78); BLOOD UREA NITROGEN 14 MG/DL (7-18); CALCIUM LEVEL 8.4 MG/DL (8.5-10.1); CARBON DIOXIDE LEVEL 28 MEQ/L (21-32); CHLORIDE LEVEL 100 MEQ/L (98-107); GLOMERULAR FILTRATION RATE > 60.0 (>56); GLUCOSE, FASTING 301 MG/DL (70-100); POTASSIUM SERUM 3.7 MEQ/L (3.5-5.1); SODIUM LEVEL 138 MEQ/L (136-145)
[2021-01-01 13:13] LABS: ALBUMIN 3.7 GM/DL (3.2-5.2); BILIRUBIN,TOTAL 0.3 MG/DL (0.2-1.0); TOTAL PROTEIN 6.7 GM/DL (6.4-8.2)
--- NOTE | 2021-01-01 14:03 | REP ---
INDICATION: Intermittent cough COMPARISON: 04/23/2020 as well as other prior exams. TECHNIQUE: PA/Lateral FINDINGS: Lungs: Clear, no infiltrate. Heart: Normal in size. Mediastinum: Mediastinal silhouette unremarkable. Pleural angles: Unremarkable.. Bones and soft tissues: There are mild degenerative changes of the spine. IMPRESSION: No acute pulmonary disease. <Electronically signed by Raj Guerra > 01/01/21 1400
[2021-01-01] MEDS: ANALGESIC BALM CRM 3OZ TOP SCH ×2 (15:04→21:08)
[2021-01-01] MEDS: guaiFENesin DM LIQ 10ML UD PO PRN ×2 (15:04→21:53)
[2021-01-01] MEDS: SALIVA SUBSTITUTE(MOUTHKOTE) BTL MT PRN ×2 (15:29→21:54)
[2021-01-01 16:26] VITALS: BP 148/89
[2021-01-01] MEDS ORDERED: DEXTROSE 50% 50 ML SYRINGE IV PRN (16:35)
[2021-01-01] MEDS ORDERED: GLUCAGON INJ 1MG VIAL SC PRN (16:35)
[2021-01-01] MEDS ORDERED: GLUCOSE 4GM CHEW TABLET PO PRN (16:35)
--- NOTE | 2021-01-01 16:39 | IPNPDOC ---
Text Note Date of Service The patient was seen on 01/01/21. NOTE Subjective: Hospitalist service was requested to see the patient who complains of intermittent cough. Physical exam was pertinent for clear lung sounds. Objective: GENERAL APPEARANCE: Obese male HEENT: no scleral icterus, no JVD, EOMI CARDIOVASCULAR: S1S2 LUNGS: CTA ABDOMEN: soft & not tender w palpation MUSCULOSKELETAL: no cyanosis, no swelling INTEGUMENT: no generalized pallor NEUROLOGICAL: cranial nerve function from 2-12 intact Chest x-ray was ordered and was negative for acute pulmonary infiltrates. Covid test was negative. Robitussin was prescribed. Also patient was found to have hyperglycemia with glucose level of 300, Metformin was discontinued. Recommended insulin sliding scale. We will check HbA1c. VS,Fishbone, I+O VS, Fishbone, I+O Laboratory Tests 01/01/21 12:30 Vital Signs Date Time Temp Pulse Resp B/P (MAP) Pulse Ox O2 Delivery O2 Flow Rate FiO2 01/01/21 16:26 97.5 90 20 148/89 (108) 97 Room Air PIEDAD SANDHU DO Jan 01, 2021 16:39
[2021-01-01] MEDS: HumaLOG INSULIN (NovoLOG) PER UNIT SC SCH ×2 (17:05→21:00)
[2021-01-01 20:00] VITALS: BP 148/89
[2021-01-01] MEDS: traZODone 100 MG TAB PO SCH (21:08)
[2021-01-01] MEDS: haloperidoL 5 MG TAB PO SCH (21:10)
[2021-01-01] MEDS: ATORVASTATIN 20 MG TAB PO SCH (21:10)
[2021-01-01] MEDS: CYCLOBENZAPRINE 10MG TABLET PO SCH (21:10)
[2021-01-01] MEDS: MONTELUKAST 10 MG TAB PO SCH (21:10)
[2021-01-01] MEDS: QUEtiapine FUMARATE 100 MG TAB PO SCH (21:11)
[2021-01-01] MEDS: LORazepam 2 MG TAB PO PRN (22:21)
[2021-01-01] MEDS: diphenhydrAMINE 50MG CAP PO PRN (22:21)
[2021-01-01] MEDS: ACETAMINOPHEN TAB 650MG DOSE (2X325MG) PO PRN (22:24)
[2021-01-01 23:56] LABS: HEMOGLOBIN A1c 6.9 %
[2021-01-02] MEDS: IBUPROFEN 800 MG TAB PO SCH ×3 (05:47→23:10)
[2021-01-02] MEDS: LEVOTHYROXINE 100MCG TABLET (0.1MG) PO SCH (05:47)
[2021-01-02] MEDS: HumaLOG INSULIN (NovoLOG) PER UNIT SC SCH ×4 (06:34→20:33)
[2021-01-02 07:15] VITALS: BP 164/96
[2021-01-02] MEDS: ANALGESIC BALM CRM 3OZ TOP SCH ×3 (09:40→23:10)
[2021-01-02] MEDS: FLUTICASONE PROP 0.05% NASAL SPRAY 16 GM (FLONASE) NARES SCH (09:40)
[2021-01-02] MEDS: BENZTROPINE 1 MG TAB PO SCH ×2 (09:40→20:32)
[2021-01-02] MEDS: OMEPRAZOLE 20 MG CAP PO SCH (09:40)
[2021-01-02] MEDS: TAMSULOSIN 0.4 MG CAP PO SCH (09:40)
[2021-01-02] MEDS: OMEGA-3 1000MG CAPSULE PO SCH (09:41)
[2021-01-02] MEDS: VITAMIN D (CHOLECALCIFEROL) 400 INTERNATIONAL UNITS TAB PO SCH (09:41)
[2021-01-02] MEDS: oxyBUTYnin 5 MG TAB PO SCH (09:41)
[2021-01-02] MEDS: DOCUSATE SODIUM 100MG CAPSULE PO SCH ×2 (09:41→20:32)
[2021-01-02] MEDS: lamoTRIgine 100MG TAB PO SCH (09:41)
[2021-01-02] MEDS: ASPIRIN 81MG ENTERIC TABLET PO SCH (09:41)
[2021-01-02] MEDS: atenoloL 25 MG TAB PO SCH ×2 (09:47→20:32)
[2021-01-02] MEDS: SALIVA SUBSTITUTE(MOUTHKOTE) BTL MT PRN (13:23)
[2021-01-02] MEDS: guaiFENesin DM LIQ 10ML UD PO PRN ×2 (15:42→23:12)
--- NOTE | 2021-01-02 16:35 | MHIPNPDOC ---
[facility] Progress Note Progress Note DATE OF SERVICE: 01/02/21 HISTORY: Patient a 50 y/o man with a past history of bipolar disorder and numerous admissions since his 20's. Was [place] [facility] [place] and living in [facility] assisted since. Was admitted on this occasion due to disorganized and paranoid behavior. Currently remains in contact isolation due to possible exposure previous treatment nursing staff. Interval: Charts reviewed, patient was taken for chest x-ray due to cough, which was unremarkable. Patient reported BenGay and mouth "for dry mouth to be helpful. Continues to appear elevated, also was found to have an elevated blood sugar of 300, so metformin was held and was put on a sliding scale of insulin per medical team. Overall appears to be concrete, disorganized, makes inappropriate jokes and laughs to himself. Today he was at the nursing station asking any if I could write an order for him to work out some company. Explained to him that I could not fill this request, only could provide psychiatric/medical treatment. He then left himself for extended period time uncontrollably, eventually calming down without redirection. Was explained to [facility]io that he is pending placement, is agreeable to plan. VITAL SIGNS: See below. NEW TEST RESULTS: Chest x-ray negative CURRENT MEDICATIONS: See below. MENTAL STATUS EXAMINATION: Patient is a 50-year old male, wearing masks and glasses without redirection, no acute distress, elevated BMI, somewhat improved hygiene Speech: spontaneous, normal rate Language skills are poor. Thought processes including: Remains disorganized, tangential at times. Thought content: Denies Suicidal thoughts, intent or plan. Abstract reasoning, and computation: unable to fully assess. Description of associations: concrete Description of abnormal or psychotic thoughts: AH, states he hears voices from his childhood, not scary. Judgment: poor Insight: poor Orientation: to person, place, time Recent and remote memory: poor Attention span and concentration: Poor, distractible Language: Kazakh Fund of knowledge: Below average Mood: "Fine" affect: Labile mood, primarily elevated, internally preoccupied at times. DIAGNOSES: 1. Bipolar disorder, mixed episode per hx 2. R/O schizoaffective disorder, bipolar type ASSESSMENT: Continues to have elevated mood with fluctuations and inappropriate laughter, disorganized thought process and is grossly psychotic and concrete. No signs of aggression and has been agreeable with staff regarding treatment including getting chest x-ray and blood sugar evaluated. Reports tolerating medications well otherwise. Patient is very sensitive to medication changes, with noted manic symptoms and severe depressed symptoms during stay with minor changes. We will only consider making changes if has serious fluctuations in metabolic labs or other severe side effects. MANAGEMENT PLAN: Has AOT, pending [facility] placement. Metformin is held by medical team, started on insulin sliding scale which has been continued for several days. Put in a nursing order for routine monitoring of weight/BMI. Is on a carb consistent diet. Takes omega FFA supp. TIME SPENT: 15 minutes. Vital Signs Vital Signs Date Time Temp Pulse Resp B/P (MAP) Pulse Ox O2 Delivery O2 Flow Rate FiO2 01/02/21 09:47 69 136/90 01/02/21 07:15 97.5 16 94 Room Air Laboratory Data 24H Labs Laboratory Tests 2 01/01/21 16:39: Estimated Mean Plasma Glucose 151H, Hemoglobin A1c 6.9 01/01/21 17:03: Bedside Glucose (Misc Panel) 254H 01/01/21 21:00: Bedside Glucose (Misc Panel) 148H 01/02/21 05:52: Bedside Glucose (Misc Panel) 156H 01/02/21 11:49: Bedside Glucose (Misc Panel) 244H Current Medications Current Medications Medications (Trade) Dose Ordered Sig/Kailey Route PRN Reason Start Time Stop Time Status Last Admin Dose Admin Acetaminophen (Tylenol Tab) 650 mg Q6HP PRN PO HEADACHE or MILD DISCOMFORT 12/01/20 16:05 01/01/21 22:24 Acetaminophen (Tylenol Tab) 650 mg Q6HP PRN PO HEADACHE or MILD DISCOMFORT 11/18/20 12:40 11/24/20 01:45 DC 11/23/20 03:09 Al Hydrox/Mg Hydrox/Simethicone (Mylanta) 30 ml Q4HP PRN PO HEARTBURN/INDIGESTION 11/18/20 12:40 11/24/20 01:45 DC 11/23/20 22:34 Amlodipine Besylate (Norvasc) 10 mg DAILY PO 11/19/20 09:00 11/22/20 08:55 DC 11/22/20 08:20 Aspirin (Ecotrin) 81 mg DAILY PO 11/24/20 09:00 01/02/21 09:41 Aspirin (Ecotrin) 81 mg QAM PO 11/22/20 09:00 11/24/20 01:45 DC 11/23/20 07:58 Atenolol (Tenormin) 25 mg BID PO 11/22/20 09:00 11/22/20 12:53 DC 11/22/20 09:51 Atenolol (Tenormin) 25 mg BID PO 11/24/20 09:00 01/02/21 09:47 Atenolol (Tenormin) 50 mg BID PO 11/22/20 21:00 11/24/20 00:13 DC 11/23/20 21:16 Atorvastatin Calcium (Lipitor) 40 mg QHS PO 11/18/20 21:00 11/24/20 01:45 DC 11/23/20 21:16 Atorvastatin Calcium (Lipitor) 40 mg QHS PO 11/24/20 21:00 01/01/21 21:10 Benztropine Mesylate (Cogentin) 1 mg BID PO 11/18/20 09:00 11/24/20 01:45 DC 11/23/20 21:15 Benztropine Mesylate (Cogentin) 1 mg BID PO 11/24/20 09:00 01/02/21 09:40 Cyclobenzaprine HCl (Flexeril) 10 mg QHS PO 11/20/20 21:00 11/24/20 01:45 DC 11/23/20 21:16 Cyclobenzaprine HCl (Flexeril) 10 mg QHS PO 11/24/20 21:00 01/01/21 21:10 Dextrose (Dextrose 50%) 25 ml ASDIRECTED PRN IV SEE LABEL COMMENTS 01/01/21 16:35 Diphenhydramine HCl (Benadryl) 50 mg Q8HP PRN PO AGITATION 11/19/20 09:10 11/24/20 01:45 DC 11/23/20 17:51 Diphenhydramine HCl (Benadryl) 50 mg Q8HP PRN PO AGITATION 11/24/20 10:55 01/01/21 22:21 Diphenhydramine HCl (Benadryl) 50 mg STAT STAT IM 11/26/20 02:41 11/26/20 02:44 DC 11/26/20 02:53 Diphenhydramine HCl (Benadryl) 50 mg STAT STAT PO 11/19/20 06:48 11/19/20 06:50 DC 11/19/20 07:06 Docusate Sodium (Colace) 100 mg BID PO 11/18/20 21:00 11/24/20 01:45 DC 11/23/20 21:15 Docusate Sodium (Colace) 100 mg BID PO 11/24/20 09:00 01/02/21 09:41 Fish Oil ([place]-3 (1000mg)) 1 cap DAILY PO 12/06/20 09:00 01/02/21 09:41 Fluticasone Propionate (Flonase 0.05% Nasal [place]) 2 spray DAILY NARES 11/19/20 09:00 11/24/20 01:45 DC 11/23/20 08:01 Fluticasone Propionate (Flonase 0.05% Nasal [place]) 2 spray DAILY NARES 11/24/20 09:00 01/02/21 09:40 Glucagon (Glucagon) 1 mg ASDIRECTED PRN SC SEE LABEL COMMENTS 01/01/21 16:35 Glucose (Glucose) 16 GM ASDIRECTED PRN PO SEE LABEL COMMENTS 01/01/21 16:35 Guaifenesin/ Dextromethorphan (Robitussin Dm) 10 ml Q4HP PRN PO COUGH 01/01/21 11:40 01/02/21 15:42 Haloperidol (Haldol) 10 mg Q8HP PRN PO AGITATION 11/19/20 09:10 11/24/20 01:45 DC 11/23/20 23:21 Haloperidol (Haldol) 10 mg Q8HP PRN PO AGITATION 11/24/20 10:55 01/01/21 22:21 Haloperidol (Haldol) 10 mg QHS PO 11/19/20 21:00 11/19/20 09:48 DC Haloperidol (Haldol) 10 mg QHS PO 11/19/20 21:00 11/24/20 01:45 DC 11/23/20 21:16 Haloperidol (Haldol) 10 mg QHS PO 11/24/20 21:00 12/11/20 10:47 DC 12/10/20 21:45 Haloperidol (Haldol) 10 mg QHS PO 12/19/20 21:00 01/01/21 21:10 Haloperidol (Haldol) 10 mg STAT STAT IM 11/26/20 02:41 11/26/20 02:44 DC 11/26/20 02:52 Haloperidol (Haldol) 10 mg STAT STAT PO 11/19/20 06:48 11/19/20 06:50 DC 11/19/20 07:06 Haloperidol (Haldol) 15 mg QHS PO 12/11/20 21:00 12/19/20 10:34 DC 12/18/20 20:05 Haloperidol Decanoate (Haldol Decanoate) 100 mg Q28D IM 11/28/20 12:00 12/26/20 12:49 Home Med (Med Rec Complete!) ASDIRECTED XX 11/17/20 23:25 11/17/20 23:24 DC Ibuprofen (Advil) 800 mg Q8H PO 12/11/20 14:00 01/02/21 13:24 Insulin Human Lispro (HumaLOG INSULIN) SEE PROTOCOL TABLE AC SC 01/01/21 17:30 01/02/21 11:53 Insulin Human Lispro (HumaLOG INSULIN) SEE PROTOCOL TABLE QHS SC 01/01/21 21:00 Lamotrigine (LaMICtal) 200 mg DAILY PO 11/18/20 09:00 11/24/20 01:45 DC 11/23/20 08:00 Lamotrigine (LaMICtal) 200 mg DAILY PO 11/24/20 09:00 01/02/21 09:41 Levothyroxine Sodium (Synthroid) 100 mcg DAILY@06 PO 11/24/20 06:00 01/02/21 05:47 Levothyroxine Sodium (Synthroid) 100 mcg DAILY@0600 PO 11/19/20 06:00 11/24/20 01:45 DC 11/23/20 05:05 Lorazepam (Ativan) 2 mg Q8HP PRN PO ANXIETY/AGITATION 12/02/20 12:05 01/01/21 22:21 Lorazepam (Ativan) 2 mg Q8HP PRN PO AGITATION 11/19/20 09:10 11/24/20 01:45 DC 11/23/20 23:21 Lorazepam (Ativan) 2 mg Q8HP PRN PO AGITATION 11/24/20 10:55 12/01/20 10:54 DC 11/30/20 22:04 Lorazepam (Ativan) 2 mg STAT STAT IM 11/26/20 02:41 11/26/20 02:44 DC 11/26/20 02:53 Lorazepam (Ativan) 2 mg STAT STAT PO 11/19/20 06:48 11/19/20 06:50 DC 11/19/20 07:06 Losartan Potassium (Cozaar) 50 mg DAILY PO 11/19/20 09:00 11/22/20 08:55 DC 11/22/20 08:20 Magnesium Hydroxide (Milk Of Magnesia) 30 ml DAILYPRN PRN PO CONSTIPATION 11/18/20 12:40 11/24/20 01:45 DC Magnesium Hydroxide (Milk Of Magnesia) 30 ml DAILYPRN PRN PO CONSTIPATION 11/24/20 10:55 Menthol/Methyl Salicylate (Bengay Cream) Allow patient to apply t... BID PRN TOP MILD PAIN (PS 1-4) 12/19/20 11:40 01/01/21 12:36 DC 01/01/21 09:02 Menthol/Methyl Salicylate (Bengay Cream) Allow patient to apply t... TID TOP 01/01/21 16:00 01/02/21 15:40 Metformin HCl (Glucophage) 1,000 mg BID@08,18 PO 11/24/20 08:00 01/01/21 16:37 DC 01/01/21 07:34 Metformin HCl (Glucophage) 1,000 mg BID@0800,1800 PO 11/18/20 18:00 11/24/20 01:45 DC 11/23/20 17:34 Miscellaneous (Unresolved Clarification Entry) SEE LABEL COMMENTS DAILY XX 11/30/20 09:00 12/02/20 09:53 DC Miscellaneous (Unresolved Clarification Entry) SEE LABEL COMMENTS DAILY XX 12/02/20 09:00 12/02/20 12:12 DC Miscellaneous (Unresolved Clarification Entry) SEE LABEL COMMENTS DAILY XX 12/13/20 09:00 12/15/20 10:07 DC Miscellaneous (Unresolved Clarification Entry) SEE LABEL COMMENTS DAILY XX 12/30/20 09:00 12/30/20 15:31 DC Miscellaneous (Unresolved Clarification Entry) SEE LABEL COMMENTS DAILY XX 12/30/20 09:00 Cancel Miscellaneous (Unresolved Clarification Entry) SEE LABEL COMMENTS DAILY XX 12/22/20 09:00 9/7/21 14:02 DC Montelukast Sodium (Singulair) 10 mg QHS PO 11/18/20 21:00 11/24/20 01:45 DC 11/23/20 21:15 Montelukast Sodium (Singulair) 10 mg QHS PO 11/24/20 21:00 01/01/21 21:10 Omeprazole (PriLOSEC) 20 mg DAILY PO 12/11/20 09:00 01/02/21 09:40 Oxybutynin Chloride (Ditropan) 5 mg DAILY PO 11/19/20 09:00 11/24/20 01:45 DC 11/23/20 08:00 Oxybutynin Chloride (Ditropan) 5 mg DAILY PO 11/24/20 09:00 01/02/21 09:41 Propranolol HCl (Inderal) 10 mg BID PO 11/18/20 21:00 11/22/20 08:55 DC 11/22/20 08:20 Quetiapine Fumarate (SEROquel) 200 mg QHS PO 11/19/20 21:00 11/24/20 01:45 DC 11/23/20 21:15 Quetiapine Fumarate (SEROquel) 200 mg QHS PO 11/24/20 21:00 12/04/20 08:57 DC 12/03/20 20:20 Quetiapine Fumarate (SEROquel) 300 mg QHS PO 12/04/20 21:00 01/01/21 21:11 Saliva Substitute (Mouthkote) ASDIRECTED PRN MT DRY MOUTH 01/01/21 12:30 01/02/21 13:23 Tamsulosin HCl (Flomax) 0.8 mg DAILY PO 11/19/20 09:00 11/24/20 01:45 DC 11/23/20 08:01 Tamsulosin HCl (Flomax) 0.8 mg DAILY PO 11/24/20 09:00 01/02/21 09:40 Trazodone HCl (Desyrel) 100 mg QPM PO 11/18/20 21:00 11/24/20 01:45 DC 11/23/20 21:16 Trazodone HCl (Desyrel) 100 mg QPM PO 11/24/20 21:00 01/01/21 21:08 Vitamin D (Vitamin D) 400 units DAILY PO 11/19/20 09:00 11/24/20 01:45 DC 11/23/20 08:00 Vitamin D (Vitamin D) 400 units DAILY PO 11/24/20 09:00 01/02/21 09:41 Allergies Coded Allergies: Penicillins (Verified Allergy, Intermediate, rash, 01/02/19) latex (Verified Allergy, Intermediate, rash, 12/13/19) divalproex sodium (Verified Allergy, Unknown, 01/02/19) AYESHA MOLINA MD Jan 02, 2021 16:35
[2021-01-02 18:14] VITALS: BP 160/100
[2021-01-02] MEDS: traZODone 100 MG TAB PO SCH (20:31)
[2021-01-02] MEDS: haloperidoL 5 MG TAB PO SCH (20:31)
[2021-01-02] MEDS: CYCLOBENZAPRINE 10MG TABLET PO SCH (20:31)
[2021-01-02] MEDS: MONTELUKAST 10 MG TAB PO SCH (20:32)
[2021-01-02] MEDS: QUEtiapine FUMARATE 100 MG TAB PO SCH (20:32)
[2021-01-02] MEDS: ATORVASTATIN 20 MG TAB PO SCH (20:32)
[2021-01-02 20:55] VITALS: BP 160/100
[2021-01-03] MEDS: IBUPROFEN 800 MG TAB PO SCH ×3 (05:30→21:11)
[2021-01-03] MEDS: LEVOTHYROXINE 100MCG TABLET (0.1MG) PO SCH (05:30)
[2021-01-03 06:47] VITALS: BP 138/82
[2021-01-03] MEDS: HumaLOG INSULIN (NovoLOG) PER UNIT SC SCH ×4 (06:56→21:11)
[2021-01-03] MEDS: VITAMIN D (CHOLECALCIFEROL) 400 INTERNATIONAL UNITS TAB PO SCH (09:20)
[2021-01-03] MEDS: oxyBUTYnin 5 MG TAB PO SCH (09:20)
[2021-01-03] MEDS: lamoTRIgine 100MG TAB PO SCH (09:20)
[2021-01-03] MEDS: OMEGA-3 1000MG CAPSULE PO SCH (09:20)
[2021-01-03] MEDS: OMEPRAZOLE 20 MG CAP PO SCH (09:21)
[2021-01-03] MEDS: atenoloL 25 MG TAB PO SCH ×2 (09:21→21:10)
[2021-01-03] MEDS: ASPIRIN 81MG ENTERIC TABLET PO SCH (09:21)
[2021-01-03] MEDS: FLUTICASONE PROP 0.05% NASAL SPRAY 16 GM (FLONASE) NARES SCH (09:21)
[2021-01-03] MEDS: TAMSULOSIN 0.4 MG CAP PO SCH (09:21)
[2021-01-03] MEDS: DOCUSATE SODIUM 100MG CAPSULE PO SCH ×2 (09:21→21:09)
[2021-01-03] MEDS: BENZTROPINE 1 MG TAB PO SCH ×2 (09:21→21:10)
[2021-01-03] MEDS: ANALGESIC BALM CRM 3OZ TOP SCH ×3 (09:22→21:09)
[2021-01-03] MEDS: LORazepam 2 MG TAB PO PRN (09:52)
[2021-01-03] MEDS: diphenhydrAMINE 50MG CAP PO PRN (09:52)
[2021-01-03] MEDS: guaiFENesin DM LIQ 10ML UD PO PRN (11:20)
--- NOTE | 2021-01-03 13:11 | MHIPNPDOC ---
[facility] Progress Note Progress Note DATE OF SERVICE: 01/03/21 HISTORY: Patient a 50 y/o man with a past history of bipolar disorder and numerous admissions since his 's. [place] [facility] [place] [facility] since. Was admitted on this occasion due to disorganized and paranoid behavior. Currently remains in contact isolation due to possible exposure previous treatment nursing staff. Interval: Charts reviewed, patient continues to have elevated periods, walking around, talking to her but he passes. Continues to laugh snicker and making appropriate jokes. Otherwise reports she is acutely physically okay, seen eating and social milieu. Continues to be grossly psychotic. VITAL SIGNS: See below. NEW TEST RESULTS: Chest x-ray negative CURRENT MEDICATIONS: See below. MENTAL STATUS EXAMINATION: Patient is a 50-year old male, wearing masks and glasses without redirection, no acute distress, elevated BMI, somewhat improved hygiene Speech: spontaneous, normal rate Language skills are poor. Thought processes including: Remains disorganized, tangential at times. Thought content: Denies Suicidal thoughts, intent or plan. Abstract reasoning, and computation: unable to fully assess. Description of associations: concrete Description of abnormal or psychotic thoughts: AH, states he hears voices from his childhood, not scary. Judgment: poor Insight: poor Orientation: to person, place, time Recent and remote memory: poor Attention span and concentration: Poor, distractible Language: Vietnamese Fund of knowledge: Below average Mood: "good" affect: Elevated mood, internally preoccupied at times, inappropriate laughter DIAGNOSES: 1. Bipolar disorder, mixed episode per hx 2. R/O schizoaffective disorder, bipolar type ASSESSMENT: Continues to be grossly psychotic, with some hypomanic behavior, pending placement. MANAGEMENT PLAN: Has AOT, [place] [facility] [place]. TIME SPENT: 15 minutes. Vital Signs Vital Signs Date Time Temp Pulse Resp B/P (MAP) Pulse Ox O2 Delivery O2 Flow Rate FiO2 01/03/21 09:21 95 136/89 01/03/21 06:47 97.8 18 96 Room Air Laboratory Data 24H Labs Laboratory Tests 2 01/02/21 17:02: Bedside Glucose (Misc Panel) 220H 01/02/21 20:27: Bedside Glucose (Misc Panel) 285H 01/03/21 06:54: Bedside Glucose (Misc Panel) 167H 01/03/21 11:56: Bedside Glucose (Misc Panel) 296H Current Medications Current Medications Medications (Trade) Dose Ordered Sig/Kailey Route PRN Reason Start Time Stop Time Status Last Admin Dose Admin Acetaminophen (Tylenol Tab) 650 mg Q6HP PRN PO HEADACHE or MILD DISCOMFORT 12/01/20 16:05 01/01/21 22:24 Acetaminophen (Tylenol Tab) 650 mg Q6HP PRN PO HEADACHE or MILD DISCOMFORT 11/18/20 12:40 11/24/20 01:45 DC 11/23/20 03:09 Al Hydrox/Mg Hydrox/Simethicone (Mylanta) 30 ml Q4HP PRN PO HEARTBURN/INDIGESTION 11/18/20 12:40 11/24/20 01:45 DC 11/23/20 22:34 Amlodipine Besylate (Norvasc) 10 mg DAILY PO 11/19/20 09:00 11/22/20 08:55 DC 11/22/20 08:20 Aspirin (Ecotrin) 81 mg DAILY PO 11/24/20 09:00 01/03/21 09:21 Aspirin (Ecotrin) 81 mg QAM PO 11/22/20 09:00 11/24/20 01:45 DC 11/23/20 07:58 Atenolol (Tenormin) 25 mg BID PO 11/22/20 09:00 11/22/20 12:53 DC 11/22/20 09:51 Atenolol (Tenormin) 25 mg BID PO 11/24/20 09:00 01/03/21 09:21 Atenolol (Tenormin) 50 mg BID PO 11/22/20 21:00 11/24/20 00:13 DC 11/23/20 21:16 Atorvastatin Calcium (Lipitor) 40 mg QHS PO 11/18/20 21:00 11/24/20 01:45 DC 11/23/20 21:16 Atorvastatin Calcium (Lipitor) 40 mg QHS PO 11/24/20 21:00 01/02/21 20:32 Benztropine Mesylate (Cogentin) 1 mg BID PO 11/18/20 09:00 11/24/20 01:45 DC 11/23/20 21:15 Benztropine Mesylate (Cogentin) 1 mg BID PO 11/24/20 09:00 01/03/21 09:21 Cyclobenzaprine HCl (Flexeril) 10 mg QHS PO 11/20/20 21:00 11/24/20 01:45 DC 11/23/20 21:16 Cyclobenzaprine HCl (Flexeril) 10 mg QHS PO 11/24/20 21:00 01/02/21 20:31 Dextrose (Dextrose 50%) 25 ml ASDIRECTED PRN IV SEE LABEL COMMENTS 01/01/21 16:35 Diphenhydramine HCl (Benadryl) 50 mg Q8HP PRN PO AGITATION 11/19/20 09:10 11/24/20 01:45 DC 11/23/20 17:51 Diphenhydramine HCl (Benadryl) 50 mg Q8HP PRN PO AGITATION 11/24/20 10:55 01/03/21 09:52 Diphenhydramine HCl (Benadryl) 50 mg STAT STAT IM 11/26/20 02:41 11/26/20 02:44 DC 11/26/20 02:53 Diphenhydramine HCl (Benadryl) 50 mg STAT STAT PO 11/19/20 06:48 11/19/20 06:50 DC 11/19/20 07:06 Docusate Sodium (Colace) 100 mg BID PO 11/18/20 21:00 11/24/20 01:45 DC 11/23/20 21:15 Docusate Sodium (Colace) 100 mg BID PO 11/24/20 09:00 01/03/21 09:21 Fish Oil ([place]-3 (1000mg)) 1 cap DAILY PO 12/06/20 09:00 01/03/21 09:20 Fluticasone Propionate (Flonase 0.05% Nasal [place]) 2 spray DAILY NARES 11/19/20 09:00 11/24/20 01:45 DC 11/23/20 08:01 Fluticasone Propionate (Flonase 0.05% Nasal [place]) 2 spray DAILY NARES 11/24/20 09:00 01/03/21 09:21 Glucagon (Glucagon) 1 mg ASDIRECTED PRN SC SEE LABEL COMMENTS 01/01/21 16:35 Glucose (Glucose) 16 GM ASDIRECTED PRN PO SEE LABEL COMMENTS 01/01/21 16:35 Guaifenesin/ Dextromethorphan (Robitussin Dm) 10 ml Q4HP PRN PO COUGH 01/01/21 11:40 01/03/21 11:20 Haloperidol (Haldol) 10 mg Q8HP PRN PO AGITATION 11/19/20 09:10 11/24/20 01:45 DC 11/23/20 23:21 Haloperidol (Haldol) 10 mg Q8HP PRN PO AGITATION 11/24/20 10:55 01/03/21 09:52 Haloperidol (Haldol) 10 mg QHS PO 11/19/20 21:00 11/19/20 09:48 DC Haloperidol (Haldol) 10 mg QHS PO 11/19/20 21:00 11/24/20 01:45 DC 11/23/20 21:16 Haloperidol (Haldol) 10 mg QHS PO 11/24/20 21:00 12/11/20 10:47 DC 12/10/20 21:45 Haloperidol (Haldol) 10 mg QHS PO 12/19/20 21:00 01/02/21 20:31 Haloperidol (Haldol) 10 mg STAT STAT IM 11/26/20 02:41 11/26/20 02:44 DC 11/26/20 02:52 Haloperidol (Haldol) 10 mg STAT STAT PO 11/19/20 06:48 11/19/20 06:50 DC 11/19/20 07:06 Haloperidol (Haldol) 15 mg QHS PO 12/11/20 21:00 12/19/20 10:34 DC 12/18/20 20:05 Haloperidol Decanoate (Haldol Decanoate) 100 mg Q28D IM 11/28/20 12:00 12/26/20 12:49 Home Med (Med Rec Complete!) ASDIRECTED XX 11/17/20 23:25 11/17/20 23:24 DC Ibuprofen (Advil) 800 mg Q8H PO 12/11/20 14:00 01/03/21 05:30 Insulin Human Lispro (HumaLOG INSULIN) SEE PROTOCOL TABLE AC SC 01/01/21 17:30 01/03/21 12:02 Insulin Human Lispro (HumaLOG INSULIN) SEE PROTOCOL TABLE QHS SC 01/01/21 21:00 01/02/21 20:33 Lamotrigine (LaMICtal) 200 mg DAILY PO 11/18/20 09:00 11/24/20 01:45 DC 11/23/20 08:00 Lamotrigine (LaMICtal) 200 mg DAILY PO 11/24/20 09:00 01/03/21 09:20 Levothyroxine Sodium (Synthroid) 100 mcg DAILY@06 PO 11/24/20 06:00 01/03/21 05:30 Levothyroxine Sodium (Synthroid) 100 mcg DAILY@0600 PO 11/19/20 06:00 11/24/20 01:45 DC 11/23/20 05:05 Lorazepam (Ativan) 2 mg Q8HP PRN PO ANXIETY/AGITATION 12/02/20 12:05 01/03/21 09:52 Lorazepam (Ativan) 2 mg Q8HP PRN PO AGITATION 11/19/20 09:10 11/24/20 01:45 DC 11/23/20 23:21 Lorazepam (Ativan) 2 mg Q8HP PRN PO AGITATION 11/24/20 10:55 12/01/20 10:54 DC 11/30/20 22:04 Lorazepam (Ativan) 2 mg STAT STAT IM 11/26/20 02:41 11/26/20 02:44 DC 11/26/20 02:53 Lorazepam (Ativan) 2 mg STAT STAT PO 11/19/20 06:48 11/19/20 06:50 DC 11/19/20 07:06 Losartan Potassium (Cozaar) 50 mg DAILY PO 11/19/20 09:00 11/22/20 08:55 DC 11/22/20 08:20 Magnesium Hydroxide (Milk Of Magnesia) 30 ml DAILYPRN PRN PO CONSTIPATION 11/18/20 12:40 11/24/20 01:45 DC Magnesium Hydroxide (Milk Of Magnesia) 30 ml DAILYPRN PRN PO CONSTIPATION 11/24/20 10:55 Menthol/Methyl Salicylate (Bengay Cream) Allow patient to apply t... BID PRN TOP MILD PAIN (PS 1-4) 12/19/20 11:40 01/01/21 12:36 DC 01/01/21 09:02 Menthol/Methyl Salicylate (Bengay Cream) Allow patient to apply t... TID TOP 01/01/21 16:00 01/03/21 09:22 Metformin HCl (Glucophage) 1,000 mg BID@08,18 PO 11/24/20 08:00 01/01/21 16:37 DC 01/01/21 07:34 Metformin HCl (Glucophage) 1,000 mg BID@0800,1800 PO 11/18/20 18:00 11/24/20 01:45 DC 11/23/20 17:34 Miscellaneous (Unresolved Clarification Entry) SEE LABEL COMMENTS DAILY XX 11/30/20 09:00 12/02/20 09:53 DC Miscellaneous (Unresolved Clarification Entry) SEE LABEL COMMENTS DAILY XX 12/02/20 09:00 12/02/20 12:12 DC Miscellaneous (Unresolved Clarification Entry) SEE LABEL COMMENTS DAILY XX 12/13/20 09:00 12/15/20 10:07 DC Miscellaneous (Unresolved Clarification Entry) SEE LABEL COMMENTS DAILY XX 12/30/20 09:00 12/30/20 15:31 DC Miscellaneous (Unresolved Clarification Entry) SEE LABEL COMMENTS DAILY XX 12/30/20 09:00 Cancel Miscellaneous (Unresolved Clarification Entry) SEE LABEL COMMENTS DAILY XX 12/22/20 09:00 12/24/20 14:02 DC Montelukast Sodium (Singulair) 10 mg QHS PO 11/18/20 21:00 11/24/20 01:45 DC 11/23/20 21:15 Montelukast Sodium (Singulair) 10 mg QHS PO 11/24/20 21:00 01/02/21 20:32 Omeprazole (PriLOSEC) 20 mg DAILY PO 12/11/20 09:00 01/03/21 09:21 Oxybutynin Chloride (Ditropan) 5 mg DAILY PO 11/19/20 09:00 11/24/20 01:45 DC 11/23/20 08:00 Oxybutynin Chloride (Ditropan) 5 mg DAILY PO 11/24/20 09:00 01/03/21 09:20 Propranolol HCl (Inderal) 10 mg BID PO 11/18/20 21:00 11/22/20 08:55 DC 11/22/20 08:20 Quetiapine Fumarate (SEROquel) 200 mg QHS PO 11/19/20 21:00 11/24/20 01:45 DC 11/23/20 21:15 Quetiapine Fumarate (SEROquel) 200 mg QHS PO 11/24/20 21:00 12/04/20 08:57 DC 12/03/20 20:20 Quetiapine Fumarate (SEROquel) 300 mg QHS PO 12/04/20 21:00 01/02/21 20:32 Saliva Substitute (Mouthkote) ASDIRECTED PRN MT DRY MOUTH 01/01/21 12:30 01/02/21 13:23 Tamsulosin HCl (Flomax) 0.8 mg DAILY PO 11/19/20 09:00 11/24/20 01:45 DC 11/23/20 08:01 Tamsulosin HCl (Flomax) 0.8 mg DAILY PO 11/24/20 09:00 01/03/21 09:21 Trazodone HCl (Desyrel) 100 mg QPM PO 11/18/20 21:00 11/24/20 01:45 DC 11/23/20 21:16 Trazodone HCl (Desyrel) 100 mg QPM PO 11/24/20 21:00 01/02/21 20:31 Vitamin D (Vitamin D) 400 units DAILY PO 11/19/20 09:00 11/24/20 01:45 DC 11/23/20 08:00 Vitamin D (Vitamin D) 400 units DAILY PO 11/24/20 09:00 01/03/21 09:20 Allergies Coded Allergies: Penicillins (Verified Allergy, Intermediate, rash, 01/02/19) latex (Verified Allergy, Intermediate, rash, 12/13/19) divalproex sodium (Verified Allergy, Unknown, 01/02/19) AYESHA MOLINA MD Jan 03, 2021 13:11
[2021-01-03] MEDS: SALIVA SUBSTITUTE(MOUTHKOTE) BTL MT PRN (14:44)
[2021-01-03 16:46] VITALS: BP 158/96
[2021-01-03] MEDS: ATORVASTATIN 20 MG TAB PO SCH (21:09)
[2021-01-03] MEDS: traZODone 100 MG TAB PO SCH (21:09)
[2021-01-03] MEDS: CYCLOBENZAPRINE 10MG TABLET PO SCH (21:09)
[2021-01-03] MEDS: MONTELUKAST 10 MG TAB PO SCH (21:10)
[2021-01-03] MEDS: haloperidoL 5 MG TAB PO SCH (21:10)
[2021-01-03] MEDS: QUEtiapine FUMARATE 100 MG TAB PO SCH (21:10)
[2021-01-04] MEDS: LEVOTHYROXINE 100MCG TABLET (0.1MG) PO SCH (05:18)
[2021-01-04] MEDS: IBUPROFEN 800 MG TAB PO SCH ×3 (05:19→22:22)
[2021-01-04 06:19] VITALS: BP 144/90
[2021-01-04] MEDS: HumaLOG INSULIN (NovoLOG) PER UNIT SC SCH ×4 (06:33→20:12)
[2021-01-04] MEDS: VITAMIN D (CHOLECALCIFEROL) 400 INTERNATIONAL UNITS TAB PO SCH (07:54)
[2021-01-04] MEDS: ASPIRIN 81MG ENTERIC TABLET PO SCH (07:54)
[2021-01-04] MEDS: oxyBUTYnin 5 MG TAB PO SCH (07:55)
[2021-01-04] MEDS: OMEGA-3 1000MG CAPSULE PO SCH (07:55)
[2021-01-04] MEDS: DOCUSATE SODIUM 100MG CAPSULE PO SCH ×2 (07:55→20:11)
[2021-01-04] MEDS: lamoTRIgine 100MG TAB PO SCH (07:55)
[2021-01-04] MEDS: OMEPRAZOLE 20 MG CAP PO SCH (07:55)
[2021-01-04] MEDS: BENZTROPINE 1 MG TAB PO SCH ×2 (07:56→20:10)
[2021-01-04] MEDS: atenoloL 25 MG TAB PO SCH ×2 (07:56→22:34)
[2021-01-04] MEDS: TAMSULOSIN 0.4 MG CAP PO SCH (07:57)
[2021-01-04] MEDS: ANALGESIC BALM CRM 3OZ TOP SCH ×3 (07:57→22:22)
[2021-01-04] MEDS: FLUTICASONE PROP 0.05% NASAL SPRAY 16 GM (FLONASE) NARES SCH (07:58)
[2021-01-04] MEDS: guaiFENesin DM LIQ 10ML UD PO PRN (07:58)
[2021-01-04] MEDS: SALIVA SUBSTITUTE(MOUTHKOTE) BTL MT PRN ×2 (10:03→15:39)
[2021-01-04 16:08] VITALS: BP 160/90
[2021-01-04] MEDS: MONTELUKAST 10 MG TAB PO SCH (20:09)
[2021-01-04] MEDS: haloperidoL 5 MG TAB PO SCH (20:09)
[2021-01-04] MEDS: traZODone 100 MG TAB PO SCH (20:10)
[2021-01-04] MEDS: QUEtiapine FUMARATE 100 MG TAB PO SCH (20:10)
[2021-01-04] MEDS: ATORVASTATIN 20 MG TAB PO SCH (20:10)
[2021-01-04] MEDS: CYCLOBENZAPRINE 10MG TABLET PO SCH (20:10)
[2021-01-04] MEDS: diphenhydrAMINE 50MG CAP PO PRN (20:11)
[2021-01-04] MEDS: LORazepam 2 MG TAB PO PRN (20:11)
[2021-01-05] MEDS: IBUPROFEN 800 MG TAB PO SCH ×3 (06:16→21:57)
[2021-01-05] MEDS: LEVOTHYROXINE 100MCG TABLET (0.1MG) PO SCH (06:16)
[2021-01-05 06:55] VITALS: BP 131/85
[2021-01-05] MEDS: HumaLOG INSULIN (NovoLOG) PER UNIT SC SCH ×4 (07:16→20:41)
[2021-01-05] MEDS: ANALGESIC BALM CRM 3OZ TOP SCH ×3 (08:34→21:57)
[2021-01-05] MEDS: DOCUSATE SODIUM 100MG CAPSULE PO SCH ×2 (08:34→20:09)
[2021-01-05] MEDS: TAMSULOSIN 0.4 MG CAP PO SCH (08:35)
[2021-01-05] MEDS: OMEPRAZOLE 20 MG CAP PO SCH (08:35)
[2021-01-05] MEDS: ASPIRIN 81MG ENTERIC TABLET PO SCH (08:35)
[2021-01-05] MEDS: VITAMIN D (CHOLECALCIFEROL) 400 INTERNATIONAL UNITS TAB PO SCH (08:35)
[2021-01-05] MEDS: lamoTRIgine 100MG TAB PO SCH (08:35)
[2021-01-05] MEDS: OMEGA-3 1000MG CAPSULE PO SCH (08:35)
[2021-01-05] MEDS: BENZTROPINE 1 MG TAB PO SCH ×2 (08:35→20:09)
[2021-01-05] MEDS: oxyBUTYnin 5 MG TAB PO SCH (08:36)
[2021-01-05] MEDS: atenoloL 25 MG TAB PO SCH ×2 (08:36→20:17)
[2021-01-05] MEDS: FLUTICASONE PROP 0.05% NASAL SPRAY 16 GM (FLONASE) NARES SCH (08:37)
--- NOTE | 2021-01-05 11:07 | IPNPDOC ---
Text Note Date of Service The patient was seen on 01/05/21. NOTE Subjective: Patient is a 50-year-old male who is currently in the inpatient mental health unit for ongoing psychiatric treatment. Patient spoke with the nurse who called hospitalist for reconsult as the patient has been complaining of swelling in his feet. Patient states that his feet and lower legs will swell up at the end of each day. Patient states this gets better when he wakes up in the morning. Patient states that he is otherwise feeling well. Patient denies any chest pain or difficulty breathing. Patient states he has chronic pain throughout his body which he gets BenGay for and that when they rub the BenGay into his feet at nighttime, this makes him feel better. Patient is otherwise feeling well today. Review of systems: General: Patient denies fevers HEENT: Patient denies headaches Cardiovascular: Patient denies chest pain Respiratory: Patient denies shortness of breath, cough GI: Patient denies abdominal pain, nausea, vomiting, diarrhea : Patient denies increased frequency or pain with urination Extremities: Patient reports swelling in his lower extremities as above Neurological: Patient denies numbness or tingling in legs Physical exam: Vitals: See below General: Alert and oriented male patient who was ambulatory on the inpatient mental health unit when I walked on the unit. Patient was able to walk into the examination room without difficulty. 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 Patient did not appear to be in any acute distress. HEENT: Normocephalic, atraumatic, moist mucous membranes. Neck: No lymphadenopathy or thyromegaly Cardiac: Regular rate and rhythm, no murmurs, normal S1, normal S2 Pulm: Clear to auscultation bilaterally. No wheezes, rhonchi, rales Abd: Nondistended, nontender to palpation, normal bowel sounds Ext: Trace edema on the dorsum of the feet and the ankle bilaterally Labs: See below Imaging: No imaging has been performed Assessment/plan: 50-year-old male who is inpatient in the inpatient mental health unit secondary to manic episode from bipolar disorder 1. Bipolar disorder with winsome. Continue treatment per psychiatry. 2. Peripheral edema. This seems most likely secondary to venous insufficiency as the patient has worsening of the swelling at night and decreased welling during the day. Patient does not have any crackles on exam so I do not believe this is secondary to heart failure exacerbation. Patient will be given MEHUL stockings to wear during the day and try to keep his legs elevated as much as possible. 3. Chronic pain. Patient continue with acetaminophen and BenGay as needed. 4. Hypertension. Continue with the patient's home blood pressure medications with hold parameters. 5. Eac-ttlepoh-jinvqotoo diabetes. Patient's last A1c was 6.9 on 01/01/2021. Continue with the current treatment. DVT Prophylaxis: MEHUL stockings Disposition: Discharge per psychiatry. VS,Lavell, I+O VS, Lavell, I+O Vital Signs Date Time Temp Pulse Resp B/P (MAP) Pulse Ox O2 Delivery O2 Flow Rate FiO2 01/05/21 08:36 96 133/68 01/05/21 06:55 97.5 18 95 Room Air JOANNA AVENDANO DO Jan 05, 2021 11:07
[2021-01-05] MEDS: diphenhydrAMINE 50MG CAP PO PRN (13:07)
[2021-01-05] MEDS: guaiFENesin DM LIQ 10ML UD PO PRN ×2 (13:18→20:36)
[2021-01-05 16:24] VITALS: BP 144/82
[2021-01-05] MEDS: LORazepam 2 MG TAB PO PRN (19:37)
[2021-01-05] MEDS: ATORVASTATIN 20 MG TAB PO SCH (20:09)
[2021-01-05] MEDS: QUEtiapine FUMARATE 100 MG TAB PO SCH (20:09)
[2021-01-05] MEDS: CYCLOBENZAPRINE 10MG TABLET PO SCH (20:09)
[2021-01-05] MEDS: MONTELUKAST 10 MG TAB PO SCH (20:09)
[2021-01-05] MEDS: haloperidoL 5 MG TAB PO SCH (20:10)
[2021-01-05] MEDS: traZODone 100 MG TAB PO SCH (20:36)
[2021-01-05] MEDS: SALIVA SUBSTITUTE(MOUTHKOTE) BTL MT PRN (21:58)
[2021-01-06] MEDS: LEVOTHYROXINE 100MCG TABLET (0.1MG) PO SCH (05:54)
[2021-01-06] MEDS: IBUPROFEN 800 MG TAB PO SCH ×3 (06:00→22:53)
[2021-01-06] MEDS: HumaLOG INSULIN (NovoLOG) PER UNIT SC SCH ×4 (06:47→20:50)
[2021-01-06 07:06] VITALS: BP 140/91
[2021-01-06] MEDS: ANALGESIC BALM CRM 3OZ TOP SCH ×3 (09:57→21:00)
[2021-01-06] MEDS: BENZTROPINE 1 MG TAB PO SCH ×2 (09:58→20:19)
[2021-01-06] MEDS: ASPIRIN 81MG ENTERIC TABLET PO SCH (09:58)
[2021-01-06] MEDS: OMEGA-3 1000MG CAPSULE PO SCH (09:58)
[2021-01-06] MEDS: oxyBUTYnin 5 MG TAB PO SCH (09:58)
[2021-01-06] MEDS: VITAMIN D (CHOLECALCIFEROL) 400 INTERNATIONAL UNITS TAB PO SCH (09:58)
[2021-01-06] MEDS: lamoTRIgine 100MG TAB PO SCH (09:58)
[2021-01-06] MEDS: DOCUSATE SODIUM 100MG CAPSULE PO SCH ×2 (09:58→20:18)
[2021-01-06] MEDS: TAMSULOSIN 0.4 MG CAP PO SCH (09:58)
[2021-01-06] MEDS: FLUTICASONE PROP 0.05% NASAL SPRAY 16 GM (FLONASE) NARES SCH (09:58)
[2021-01-06] MEDS: OMEPRAZOLE 20 MG CAP PO SCH (09:58)
[2021-01-06] MEDS: atenoloL 25 MG TAB PO SCH ×2 (09:59→20:23)
[2021-01-06] MEDS ORDERED: LIDOCAINE 5% (LIDODERM) PATCH TD ONE (10:10)
[2021-01-06] MEDS ORDERED: MULTIVITAMINS/MINERALS THERAP 1 TAB PO ONE (10:10)
--- NOTE | 2021-01-06 10:15 | MHIPNPDOC ---
[facility] Progress Note Progress Note DATE OF SERVICE: 01/06/21 HISTORY: Patient a 50 y/o man with a past history of bipolar disorder and numerous admissions since his '. [place] [facility] [place] and living in [facility] since. Was admitted on this occasion due to disorganized and paranoid behavior. Currently remains in contact isolation due to possible exposure previous treatment nursing staff. Interval: Charts reviewed, has been attending groups including relaxation group. States he watches TV and sees element of medications that can help him and listen out, including a lidocaine patch because he has some soreness in his L hip due to arthritis, he was able to ambulate without difficulty however. Also aspirin adult multivitamin. He remains disorganized and grossly psychotic with periods of calmness and periods of inappropriate laughter. No aggressive behavior noted. VITAL SIGNS: See below. NEW TEST RESULTS: Chest x-ray negative CURRENT MEDICATIONS: See below. MENTAL STATUS EXAMINATION: Patient is a 50-year old male, wearing masks and glasses without redirection, no acute distress, elevated BMI, somewhat improved hygiene Speech: spontaneous, normal rate Language skills are poor. Thought processes including: Remains disorganized, tangential at times. Thought content: Denies Suicidal thoughts, intent or plan. Abstract reasoning, and computation: unable to fully assess. Description of associations: concrete Description of abnormal or psychotic thoughts: AH, states he hears voices from his childhood, not scary. Judgment: poor Insight: poor Orientation: to person, place, time Recent and remote memory: poor Attention span and concentration: Poor, distractible Language: [place] Zealander Fund of knowledge: Below average Mood: "okay" affect: Labile mood, makes nonsensical jokes with clang associations, inappropriate affect DIAGNOSES: 1. Schizoaffective disorder bipolar type ASSESSMENT: Continues to be grossly psychotic, with some hypomanic behavior, pending placement. Added lidocaine patch for some hip soreness in the joint, ordered multivitamin per request. MANAGEMENT PLAN: Has AOT, pending [facility] [place]. Continue medications. Reports some morning sedation so decrease trazodone from 100 to 50 mg nightly. Patient is highly sensitive to any medication changes with rapid decompensation. TIME SPENT: 20 minutes. Vital Signs Vital Signs Date Time Temp Pulse Resp B/P (MAP) Pulse Ox O2 Delivery O2 Flow Rate FiO2 01/06/21 09:59 73 140/91 01/06/21 07:06 97.0 18 93 Room Air Laboratory Data 24H Labs Laboratory Tests 2 01/05/21 12:04: Bedside Glucose (Misc Panel) 250H 01/05/21 17:04: Bedside Glucose (Misc Panel) 267H 01/05/21 20:16: Bedside Glucose (Misc Panel) 319H 01/06/21 06:42: Bedside Glucose (Misc Panel) 200H Current Medications Current Medications Medications (Trade) Dose Ordered Sig/Kailey Route PRN Reason Start Time Stop Time Status Last Admin Dose Admin Acetaminophen (Tylenol Tab) 650 mg Q6HP PRN PO HEADACHE or MILD DISCOMFORT 12/01/20 16:05 01/01/21 22:24 Acetaminophen (Tylenol Tab) 650 mg Q6HP PRN PO HEADACHE or MILD DISCOMFORT 11/18/20 12:40 11/24/20 01:45 DC 11/23/20 03:09 Al Hydrox/Mg Hydrox/Simethicone (Mylanta) 30 ml Q4HP PRN PO HEARTBURN/INDIGESTION 11/18/20 12:40 11/24/20 01:45 DC 11/23/20 22:34 Amlodipine Besylate (Norvasc) 10 mg DAILY PO 11/19/20 09:00 11/22/20 08:55 DC 11/22/20 08:20 Aspirin (Ecotrin) 81 mg DAILY PO 11/24/20 09:00 01/06/21 09:58 Aspirin (Ecotrin) 81 mg QAM PO 11/22/20 09:00 11/24/20 01:45 DC 11/23/20 07:58 Atenolol (Tenormin) 25 mg BID PO 11/22/20 09:00 11/22/20 12:53 DC 11/22/20 09:51 Atenolol (Tenormin) 25 mg BID PO 11/24/20 09:00 01/06/21 09:59 Atenolol (Tenormin) 50 mg BID PO 11/22/20 21:00 11/24/20 00:13 DC 11/23/20 21:16 Atorvastatin Calcium (Lipitor) 40 mg QHS PO 11/18/20 21:00 11/24/20 01:45 DC 11/23/20 21:16 Atorvastatin Calcium (Lipitor) 40 mg QHS PO 11/24/20 21:00 01/05/21 20:09 Benztropine Mesylate (Cogentin) 1 mg BID PO 11/18/20 09:00 11/24/20 01:45 DC 11/23/20 21:15 Benztropine Mesylate (Cogentin) 1 mg BID PO 11/24/20 09:00 01/06/21 09:58 Cyclobenzaprine HCl (Flexeril) 10 mg QHS PO 11/20/20 21:00 11/24/20 01:45 DC 11/23/20 21:16 Cyclobenzaprine HCl (Flexeril) 10 mg QHS PO 11/24/20 21:00 01/05/21 20:09 Dextrose (Dextrose 50%) 25 ml ASDIRECTED PRN IV SEE LABEL COMMENTS 01/01/21 16:35 Diphenhydramine HCl (Benadryl) 50 mg Q8HP PRN PO AGITATION 11/19/20 09:10 11/24/20 01:45 DC 11/23/20 17:51 Diphenhydramine HCl (Benadryl) 50 mg Q8HP PRN PO AGITATION 11/24/20 10:55 01/05/21 13:07 Diphenhydramine HCl (Benadryl) 50 mg STAT STAT IM 11/26/20 02:41 11/26/20 02:44 DC 11/26/20 02:53 Diphenhydramine HCl (Benadryl) 50 mg STAT STAT PO 11/19/20 06:48 11/19/20 06:50 DC 11/19/20 07:06 Docusate Sodium (Colace) 100 mg BID PO 11/18/20 21:00 11/24/20 01:45 DC 11/23/20 21:15 Docusate Sodium (Colace) 100 mg BID PO 11/24/20 09:00 01/06/21 09:58 Fish Oil (Doddridge-3 (1000mg)) 1 cap DAILY PO 12/06/20 09:00 01/06/21 09:58 Fluticasone Propionate (Flonase 0.05% Nasal [place]) 2 spray DAILY NARES 11/19/20 09:00 11/24/20 01:45 DC 11/23/20 08:01 Fluticasone Propionate (Flonase 0.05% Nasal [place]) 2 spray DAILY NARES 11/24/20 09:00 01/06/21 09:58 Glucagon (Glucagon) 1 mg ASDIRECTED PRN SC SEE LABEL COMMENTS 01/01/21 16:35 Glucose (Glucose) 16 GM ASDIRECTED PRN PO SEE LABEL COMMENTS 01/01/21 16:35 Guaifenesin/ Dextromethorphan (Robitussin Dm) 10 ml Q4HP PRN PO COUGH 01/01/21 11:40 01/05/21 20:36 Haloperidol (Haldol) 10 mg Q8HP PRN PO AGITATION 11/19/20 09:10 11/24/20 01:45 DC 11/23/20 23:21 Haloperidol (Haldol) 10 mg Q8HP PRN PO AGITATION 11/24/20 10:55 01/05/21 13:06 Haloperidol (Haldol) 10 mg QHS PO 11/19/20 21:00 11/19/20 09:48 DC Haloperidol (Haldol) 10 mg QHS PO 11/19/20 21:00 11/24/20 01:45 DC 11/23/20 21:16 Haloperidol (Haldol) 10 mg QHS PO 11/24/20 21:00 12/11/20 10:47 DC 12/10/20 21:45 Haloperidol (Haldol) 10 mg QHS PO 12/19/20 21:00 01/05/21 20:10 Haloperidol (Haldol) 10 mg STAT STAT IM 11/26/20 02:41 11/26/20 02:44 DC 11/26/20 02:52 Haloperidol (Haldol) 10 mg STAT STAT PO 11/19/20 06:48 11/19/20 06:50 DC 11/19/20 07:06 Haloperidol (Haldol) 15 mg QHS PO 12/11/20 21:00 12/19/20 10:34 DC 12/18/20 20:05 Haloperidol Decanoate (Haldol Decanoate) 100 mg Q28D IM 11/28/20 12:00 12/26/20 12:49 Home Med (Med Rec Complete!) ASDIRECTED XX 11/17/20 23:25 11/17/20 23:24 DC Ibuprofen (Advil) 800 mg Q8H PO 12/11/20 14:00 01/06/21 06:00 Insulin Human Lispro (HumaLOG INSULIN) SEE PROTOCOL TABLE AC SC 01/01/21 17:30 01/06/21 06:47 Insulin Human Lispro (HumaLOG INSULIN) SEE PROTOCOL TABLE QHS TX 01/01/21 21:00 01/05/21 20:41 Lamotrigine (LaMICtal) 200 mg DAILY PO 11/18/20 09:00 11/24/20 01:45 DC 11/23/20 08:00 Lamotrigine (LaMICtal) 200 mg DAILY PO 11/24/20 09:00 01/06/21 09:58 Levothyroxine Sodium (Synthroid) 100 mcg DAILY@06 PO 11/24/20 06:00 01/06/21 05:54 Levothyroxine Sodium (Synthroid) 100 mcg DAILY@0600 PO 11/19/20 06:00 11/24/20 01:45 DC 11/23/20 05:05 Lorazepam (Ativan) 2 mg Q8HP PRN PO ANXIETY/AGITATION 12/02/20 12:05 01/05/21 19:37 Lorazepam (Ativan) 2 mg Q8HP PRN PO AGITATION 11/19/20 09:10 11/24/20 01:45 DC 11/23/20 23:21 Lorazepam (Ativan) 2 mg Q8HP PRN PO AGITATION 11/24/20 10:55 12/01/20 10:54 DC 11/30/20 22:04 Lorazepam (Ativan) 2 mg STAT STAT IM 11/26/20 02:41 11/26/20 02:44 DC 11/26/20 02:53 Lorazepam (Ativan) 2 mg STAT STAT PO 11/19/20 06:48 11/19/20 06:50 DC 11/19/20 07:06 Losartan Potassium (Cozaar) 50 mg DAILY PO 11/19/20 09:00 11/22/20 08:55 DC 11/22/20 08:20 Magnesium Hydroxide (Milk Of Magnesia) 30 ml DAILYPRN PRN PO CONSTIPATION 11/18/20 12:40 11/24/20 01:45 DC Magnesium Hydroxide (Milk Of Magnesia) 30 ml DAILYPRN PRN PO CONSTIPATION 11/24/20 10:55 Menthol/Methyl Salicylate (Bengay Cream) Allow patient to apply t... BID PRN TOP MILD PAIN (PS 1-4) 12/19/20 11:40 01/01/21 12:36 DC 01/01/21 09:02 Menthol/Methyl Salicylate (Bengay Cream) Allow patient to apply t... TID TOP 01/01/21 16:00 01/06/21 09:57 Metformin HCl (Glucophage) 1,000 mg BID@08,18 PO 11/24/20 08:00 01/01/21 16:37 DC 01/01/21 07:34 Metformin HCl (Glucophage) 1,000 mg BID@0800,1800 PO 11/18/20 18:00 11/24/20 01:45 DC 11/23/20 17:34 Miscellaneous (Unresolved Clarification Entry) SEE LABEL COMMENTS DAILY XX 11/30/20 09:00 12/02/20 09:53 DC Miscellaneous (Unresolved Clarification Entry) SEE LABEL COMMENTS DAILY XX 12/02/20 09:00 12/02/20 12:12 DC Miscellaneous (Unresolved Clarification Entry) SEE LABEL COMMENTS DAILY XX 12/13/20 09:00 12/15/20 10:07 DC Miscellaneous (Unresolved Clarification Entry) SEE LABEL COMMENTS DAILY XX 12/30/20 09:00 12/30/20 15:31 DC Miscellaneous (Unresolved Clarification Entry) SEE LABEL COMMENTS DAILY XX 12/30/20 09:00 Cancel Miscellaneous (Unresolved Clarification Entry) SEE LABEL COMMENTS DAILY XX 12/22/20 09:00 12/24/20 14:02 DC Montelukast Sodium (Singulair) 10 mg QHS PO 11/18/20 21:00 11/24/20 01:45 DC 11/23/20 21:15 Montelukast Sodium (Singulair) 10 mg QHS PO 11/24/20 21:00 01/05/21 20:09 Omeprazole (PriLOSEC) 20 mg DAILY PO 12/11/20 09:00 01/06/21 09:58 Oxybutynin Chloride (Ditropan) 5 mg DAILY PO 11/19/20 09:00 11/24/20 01:45 DC 11/23/20 08:00 Oxybutynin Chloride (Ditropan) 5 mg DAILY PO 11/24/20 09:00 01/06/21 09:58 Propranolol HCl (Inderal) 10 mg BID PO 11/18/20 21:00 11/22/20 08:55 DC 11/22/20 08:20 Quetiapine Fumarate (SEROquel) 200 mg QHS PO 11/19/20 21:00 11/24/20 01:45 DC 11/23/20 21:15 Quetiapine Fumarate (SEROquel) 200 mg QHS PO 11/24/20 21:00 12/04/20 08:57 DC 12/03/20 20:20 Quetiapine Fumarate (SEROquel) 300 mg QHS PO 12/04/20 21:00 01/05/21 20:09 Saliva Substitute (Mouthkote) ASDIRECTED PRN MT DRY MOUTH 01/01/21 12:30 01/05/21 21:58 Tamsulosin HCl (Flomax) 0.8 mg DAILY PO 11/19/20 09:00 11/24/20 01:45 DC 11/23/20 08:01 Tamsulosin HCl (Flomax) 0.8 mg DAILY PO 11/24/20 09:00 01/06/21 09:58 Trazodone HCl (Desyrel) 100 mg QPM PO 11/18/20 21:00 11/24/20 01:45 DC 11/23/20 21:16 Trazodone HCl (Desyrel) 100 mg QPM PO 11/24/20 21:00 01/05/21 20:36 Vitamin D (Vitamin D) 400 units DAILY PO 11/19/20 09:00 11/24/20 01:45 DC 11/23/20 08:00 Vitamin D (Vitamin D) 400 units DAILY PO 11/24/20 09:00 01/06/21 09:58 Allergies Coded Allergies: Penicillins (Verified Allergy, Intermediate, rash, 01/02/19) latex (Verified Allergy, Intermediate, rash, 12/13/19) divalproex sodium (Verified Allergy, Unknown, 01/02/19) AYESHA MOLINA MD Jan 06, 2021 10:15
[2021-01-06] MEDS: SALIVA SUBSTITUTE(MOUTHKOTE) BTL MT PRN ×2 (14:12→18:49)
[2021-01-06 18:01] VITALS: BP 182/100
[2021-01-06] MEDS: ACETAMINOPHEN TAB 650MG DOSE (2X325MG) PO PRN (18:51)
[2021-01-06] MEDS: MONTELUKAST 10 MG TAB PO SCH (20:18)
[2021-01-06] MEDS: QUEtiapine FUMARATE 100 MG TAB PO SCH (20:18)
[2021-01-06] MEDS: CYCLOBENZAPRINE 10MG TABLET PO SCH (20:18)
[2021-01-06] MEDS: haloperidoL 5 MG TAB PO SCH (20:18)
[2021-01-06] MEDS: ATORVASTATIN 20 MG TAB PO SCH (20:19)
[2021-01-06] MEDS ORDERED: **NOTE PATIENT COMMENT** MISC XX SCH (21:00)
[2021-01-06] MEDS: traZODone 50 MG TAB PO SCH (22:52)
[2021-01-07] MEDS: diphenhydrAMINE 50MG CAP PO PRN (04:52)
[2021-01-07] MEDS: ACETAMINOPHEN TAB 650MG DOSE (2X325MG) PO PRN (04:52)
[2021-01-07] MEDS: LEVOTHYROXINE 100MCG TABLET (0.1MG) PO SCH (05:37)
[2021-01-07] MEDS: IBUPROFEN 800 MG TAB PO SCH ×3 (05:41→21:46)
[2021-01-07 06:00] VITALS: BP 140/88
[2021-01-07] MEDS: HumaLOG INSULIN (NovoLOG) PER UNIT SC SCH ×4 (06:47→20:23)
[2021-01-07] MEDS: FLUTICASONE PROP 0.05% NASAL SPRAY 16 GM (FLONASE) NARES SCH (08:47)
[2021-01-07] MEDS: ANALGESIC BALM CRM 3OZ TOP SCH ×3 (08:49→20:17)
[2021-01-07] MEDS: DOCUSATE SODIUM 100MG CAPSULE PO SCH ×2 (08:49→20:18)
[2021-01-07] MEDS: ASPIRIN 81MG ENTERIC TABLET PO SCH (08:50)
[2021-01-07] MEDS: OMEGA-3 1000MG CAPSULE PO SCH (08:50)
[2021-01-07] MEDS: BENZTROPINE 1 MG TAB PO SCH ×2 (08:50→20:18)
[2021-01-07] MEDS: oxyBUTYnin 5 MG TAB PO SCH (08:50)
[2021-01-07] MEDS: VITAMIN D (CHOLECALCIFEROL) 400 INTERNATIONAL UNITS TAB PO SCH (08:50)
[2021-01-07] MEDS: TAMSULOSIN 0.4 MG CAP PO SCH (08:50)
[2021-01-07] MEDS: lamoTRIgine 100MG TAB PO SCH (08:50)
[2021-01-07] MEDS: atenoloL 25 MG TAB PO SCH ×2 (08:51→20:18)
[2021-01-07] MEDS: OMEPRAZOLE 20 MG CAP PO SCH (08:51)
--- NOTE | 2021-01-07 15:19 | MHIPNPDOC ---
[facility] Progress Note Progress Note DATE OF SERVICE: 01/07/21 HISTORY: Patient a 50 y/o man with a past history of bipolar disorder and numerous admissions since his 's. Was [place] [facility] [place] and living in [facility] since. Was admitted on this occasion due to disorganized and paranoid behavior. Currently remains in contact isolation due to possible exposure previous treatment nursing staff. Interval: Charts reviewed, no change from previous days continues to be concrete grossly psychotic, also displays elevated manic behaviors, sings in the hallway many songs with clang associations, asks for multiple medications that he sees on TV. No agitation or irritability noted today, denies acute physical com plaints, tolerates medications without side effects. VITAL SIGNS: See below. NEW TEST RESULTS: none CURRENT MEDICATIONS: See below. MENTAL STATUS EXAMINATION: Patient is a 50-year old male, wearing masks and glasses without redirection, no acute distress, elevated BMI, somewhat improved hygiene Speech: spontaneous, normal rate Language skills are poor. Thought processes including: Remains disorganized, tangential at times. Thought content: Denies Suicidal thoughts, intent or plan. Abstract reasoning, and computation: unable to fully assess. Description of associations: concrete Description of abnormal or psychotic thoughts: Continues to report vague AH Judgment: poor Insight: poor Orientation: to person, place, time Recent and remote memory: poor Attention span and concentration: Poor, distractible Language: Indonesian Fund of knowledge: Below average Mood: "fine" affect: [place], grossly psychotic, hypomanic, no aggression noted, inappropriate DIAGNOSES: 1. Schizoaffective disorder bipolar type ASSESSMENT: Main where he has lidocaine patch, as he thought he did not. Remains grossly psychotic and hypomanic, pending placement. MANAGEMENT PLAN: Has AOT, pending [facility] placement. Continue medications. Placed order for 6-month retention, as due to placement issues likely will not have a spot at [facility] per social work until next week or later. Patient is highly sensitive to any medication changes with rapid decompensation. TIME SPENT: 15 minutes. Vital Signs Vital Signs Date Time Temp Pulse Resp B/P (MAP) Pulse Ox O2 Delivery O2 Flow Rate FiO2 01/07/21 08:51 140/88 01/07/21 06:00 97.4 97 20 95 01/06/21 07:06 Room Air Laboratory Data 24H Labs Laboratory Tests 2 01/06/21 17:13: Bedside Glucose (Misc Panel) 224H 01/06/21 20:45: Bedside Glucose (Misc Panel) 270H 01/07/21 06:41: Bedside Glucose (Misc Panel) 252H 01/07/21 11:37: Bedside Glucose (Misc Panel) 312H Current Medications Current Medications Medications (Trade) Dose Ordered Sig/Kailey Route PRN Reason Start Time Stop Time Status Last Admin Dose Admin Acetaminophen (Tylenol Tab) 650 mg Q6HP PRN PO HEADACHE or MILD DISCOMFORT 12/01/20 16:05 01/07/21 04:52 Acetaminophen (Tylenol Tab) 650 mg Q6HP PRN PO HEADACHE or MILD DISCOMFORT 11/18/20 12:40 11/24/20 01:45 DC 11/23/20 03:09 Al Hydrox/Mg Hydrox/Simethicone (Mylanta) 30 ml Q4HP PRN PO HEARTBURN/INDIGESTION 11/18/20 12:40 11/24/20 01:45 DC 11/23/20 22:34 Amlodipine Besylate (Norvasc) 10 mg DAILY PO 11/19/20 09:00 11/22/20 08:55 DC 11/22/20 08:20 Aspirin (Ecotrin) 81 mg DAILY PO 11/24/20 09:00 01/07/21 08:50 Aspirin (Ecotrin) 81 mg QAM PO 11/22/20 09:00 11/24/20 01:45 DC 11/23/20 07:58 Atenolol (Tenormin) 25 mg BID PO 11/22/20 09:00 11/22/20 12:53 DC 11/22/20 09:51 Atenolol (Tenormin) 25 mg BID PO 11/24/20 09:00 01/07/21 08:51 Atenolol (Tenormin) 50 mg BID PO 11/22/20 21:00 11/24/20 00:13 DC 11/23/20 21:16 Atorvastatin Calcium (Lipitor) 40 mg QHS PO 11/18/20 21:00 11/24/20 01:45 DC 11/23/20 21:16 Atorvastatin Calcium (Lipitor) 40 mg QHS PO 11/24/20 21:00 01/06/21 20:19 Benztropine Mesylate (Cogentin) 1 mg BID PO 11/18/20 09:00 11/24/20 01:45 DC 11/23/20 21:15 Benztropine Mesylate (Cogentin) 1 mg BID PO 11/24/20 09:00 01/07/21 08:50 Cyclobenzaprine HCl (Flexeril) 10 mg QHS PO 11/20/20 21:00 11/24/20 01:45 DC 11/23/20 21:16 Cyclobenzaprine HCl (Flexeril) 10 mg QHS PO 11/24/20 21:00 01/06/21 20:18 Dextrose (Dextrose 50%) 25 ml ASDIRECTED PRN IV SEE LABEL COMMENTS 01/01/21 16:35 Diphenhydramine HCl (Benadryl) 50 mg Q8HP PRN PO AGITATION 11/19/20 09:10 11/24/20 01:45 DC 11/23/20 17:51 Diphenhydramine HCl (Benadryl) 50 mg Q8HP PRN PO AGITATION 11/24/20 10:55 01/07/21 04:52 Diphenhydramine HCl (Benadryl) 50 mg STAT STAT IM 11/26/20 02:41 11/26/20 02:44 DC 11/26/20 02:53 Diphenhydramine HCl (Benadryl) 50 mg STAT STAT PO 11/19/20 06:48 11/19/20 06:50 DC 11/19/20 07:06 Docusate Sodium (Colace) 100 mg BID PO 11/18/20 21:00 11/24/20 01:45 DC 11/23/20 21:15 Docusate Sodium (Colace) 100 mg BID PO 11/24/20 09:00 01/07/21 08:49 Fish Oil ([place]-3 (1000mg)) 1 cap DAILY PO 12/06/20 09:00 01/07/21 08:50 Fluticasone Propionate (Flonase 0.05% Nasal [place]) 2 spray DAILY NARES 11/19/20 09:00 11/24/20 01:45 DC 11/23/20 08:01 Fluticasone Propionate (Flonase 0.05% Nasal [place]) 2 spray DAILY NARES 11/24/20 09:00 01/07/21 08:47 Glucagon (Glucagon) 1 mg ASDIRECTED PRN SC SEE LABEL COMMENTS 01/01/21 16:35 Glucose (Glucose) 16 GM ASDIRECTED PRN PO SEE LABEL COMMENTS 01/01/21 16:35 Guaifenesin/ Dextromethorphan (Robitussin Dm) 10 ml Q4HP PRN PO COUGH 01/01/21 11:40 01/05/21 20:36 Haloperidol (Haldol) 10 mg Q8HP PRN PO AGITATION 11/19/20 09:10 11/24/20 01:45 DC 11/23/20 23:21 Haloperidol (Haldol) 10 mg Q8HP PRN PO AGITATION 11/24/20 10:55 01/05/21 13:06 Haloperidol (Haldol) 10 mg QHS PO 11/19/20 21:00 11/19/20 09:48 DC Haloperidol (Haldol) 10 mg QHS PO 11/19/20 21:00 11/24/20 01:45 DC 11/23/20 21:16 Haloperidol (Haldol) 10 mg QHS PO 11/24/20 21:00 12/11/20 10:47 DC 12/10/20 21:45 Haloperidol (Haldol) 10 mg QHS PO 12/19/20 21:00 01/06/21 20:18 Haloperidol (Haldol) 10 mg STAT STAT IM 11/26/20 02:41 11/26/20 02:44 DC 11/26/20 02:52 Haloperidol (Haldol) 10 mg STAT STAT PO 11/19/20 06:48 11/19/20 06:50 DC 11/19/20 07:06 Haloperidol (Haldol) 15 mg QHS PO 12/11/20 21:00 12/19/20 10:34 DC 12/18/20 20:05 Haloperidol Decanoate (Haldol Decanoate) 100 mg Q28D IM 11/28/20 12:00 12/26/20 12:49 Home Med (Med Rec Complete!) ASDIRECTED XX 11/17/20 23:25 11/17/20 23:24 DC Ibuprofen (Advil) 800 mg Q8H PO 12/11/20 14:00 01/07/21 14:30 Insulin Human Lispro (HumaLOG INSULIN) SEE PROTOCOL TABLE AC SC 01/01/21 17:30 9/21/21 11:41 Insulin Human Lispro (HumaLOG INSULIN) SEE PROTOCOL TABLE QHS SC 01/01/21 21:00 01/06/21 20:50 Lamotrigine (LaMICtal) 200 mg DAILY PO 11/18/20 09:00 11/24/20 01:45 DC 11/23/20 08:00 Lamotrigine (LaMICtal) 200 mg DAILY PO 11/24/20 09:00 01/07/21 08:50 Levothyroxine Sodium (Synthroid) 100 mcg DAILY@06 PO 11/24/20 06:00 01/07/21 05:37 Levothyroxine Sodium (Synthroid) 100 mcg DAILY@0600 PO 11/19/20 06:00 11/24/20 01:45 DC 11/23/20 05:05 Lorazepam (Ativan) 2 mg Q8HP PRN PO ANXIETY/AGITATION 12/02/20 12:05 01/05/21 19:37 Lorazepam (Ativan) 2 mg Q8HP PRN PO AGITATION 11/19/20 09:10 11/24/20 01:45 DC 11/23/20 23:21 Lorazepam (Ativan) 2 mg Q8HP PRN PO AGITATION 11/24/20 10:55 12/01/20 10:54 DC 11/30/20 22:04 Lorazepam (Ativan) 2 mg STAT STAT IM 11/26/20 02:41 11/26/20 02:44 DC 11/26/20 02:53 Lorazepam (Ativan) 2 mg STAT STAT PO 11/19/20 06:48 11/19/20 06:50 DC 11/19/20 07:06 Losartan Potassium (Cozaar) 50 mg DAILY PO 11/19/20 09:00 11/22/20 08:55 DC 11/22/20 08:20 Magnesium Hydroxide (Milk Of Magnesia) 30 ml DAILYPRN PRN PO CONSTIPATION 11/18/20 12:40 11/24/20 01:45 DC Magnesium Hydroxide (Milk Of Magnesia) 30 ml DAILYPRN PRN PO CONSTIPATION 11/24/20 10:55 Menthol/Methyl Salicylate (Bengay Cream) Allow patient to apply t... BID PRN TOP MILD PAIN (PS 1-4) 12/19/20 11:40 01/01/21 12:36 DC 01/01/21 09:02 Menthol/Methyl Salicylate (Bengay Cream) Allow patient to apply t... TID TOP 01/01/21 16:00 01/07/21 08:49 Metformin HCl (Glucophage) 1,000 mg BID@08,18 PO 11/24/20 08:00 01/01/21 16:37 DC 01/01/21 07:34 Metformin HCl (Glucophage) 1,000 mg BID@0800,1800 PO 11/18/20 18:00 11/24/20 01:45 DC 11/23/20 17:34 Miscellaneous (Unresolved Clarification Entry) SEE LABEL COMMENTS DAILY XX 11/30/20 09:00 12/02/20 09:53 DC Miscellaneous (Unresolved Clarification Entry) SEE LABEL COMMENTS DAILY XX 12/02/20 09:00 12/02/20 12:12 DC Miscellaneous (Unresolved Clarification Entry) SEE LABEL COMMENTS DAILY XX 12/13/20 09:00 12/15/20 10:07 DC Miscellaneous (Unresolved Clarification Entry) SEE LABEL COMMENTS DAILY XX 12/30/20 09:00 12/30/20 15:31 DC Miscellaneous (Unresolved Clarification Entry) SEE LABEL COMMENTS DAILY XX 12/30/20 09:00 Cancel Miscellaneous (Unresolved Clarification Entry) SEE LABEL COMMENTS DAILY XX 01/07/21 09:00 Miscellaneous (Unresolved Clarification Entry) SEE LABEL COMMENTS DAILY XX 12/22/20 09:00 12/24/20 14:02 DC Montelukast Sodium (Singulair) 10 mg QHS PO 11/18/20 21:00 11/24/20 01:45 DC 11/23/20 21:15 Montelukast Sodium (Singulair) 10 mg QHS PO 11/24/20 21:00 01/06/21 20:18 Non-Formulary Medication ( See Comment Field Below ) REMOVE LIDODERM PATCH DAILY@ XX 01/06/21 21:00 01/06/21 23:59 DC 01/06/21 21:00 Omeprazole (PriLOSEC) 20 mg DAILY PO 12/11/20 09:00 01/07/21 08:51 Oxybutynin Chloride (Ditropan) 5 mg DAILY PO 11/19/20 09:00 11/24/20 01:45 DC 11/23/20 08:00 Oxybutynin Chloride (Ditropan) 5 mg DAILY PO 11/24/20 09:00 01/07/21 08:50 Propranolol HCl (Inderal) 10 mg BID PO 11/18/20 21:00 11/22/20 08:55 DC 11/22/20 08:20 Quetiapine Fumarate (SEROquel) 200 mg QHS PO 11/19/20 21:00 11/24/20 01:45 DC 11/23/20 21:15 Quetiapine Fumarate (SEROquel) 200 mg QHS PO 11/24/20 21:00 12/04/20 08:57 DC 12/03/20 20:20 Quetiapine Fumarate (SEROquel) 300 mg QHS PO 12/04/20 21:00 01/06/21 20:18 Saliva Substitute (Mouthkote) ASDIRECTED PRN MT DRY MOUTH 01/01/21 12:30 01/06/21 18:49 Tamsulosin HCl (Flomax) 0.8 mg DAILY PO 11/19/20 09:00 11/24/20 01:45 DC 11/23/20 08:01 Tamsulosin HCl (Flomax) 0.8 mg DAILY PO 11/24/20 09:00 01/07/21 08:50 Trazodone HCl (Desyrel) 50 mg QPM PO 01/06/21 21:00 01/06/21 22:52 Trazodone HCl (Desyrel) 100 mg QPM PO 11/18/20 21:00 11/24/20 01:45 DC 11/23/20 21:16 Trazodone HCl (Desyrel) 100 mg QPM PO 11/24/20 21:00 01/06/21 10:12 DC 01/05/21 20:36 Vitamin D (Vitamin D) 400 units DAILY PO 11/19/20 09:00 11/24/20 01:45 DC 11/23/20 08:00 Vitamin D (Vitamin D) 400 units DAILY PO 11/24/20 09:00 01/07/21 08:50 Allergies Coded Allergies: Penicillins (Verified Allergy, Intermediate, rash, 01/02/19) latex (Verified Allergy, Intermediate, rash, 12/13/19) divalproex sodium (Verified Allergy, Unknown, 01/02/19) AYESHA MOLINA MD Jan 07, 2021 15:19
[2021-01-07 17:21] VITALS: BP 184/93
[2021-01-07] MEDS: MONTELUKAST 10 MG TAB PO SCH (20:18)
[2021-01-07] MEDS: haloperidoL 5 MG TAB PO SCH (20:18)
[2021-01-07] MEDS: traZODone 50 MG TAB PO SCH (20:18)
[2021-01-07] MEDS: CYCLOBENZAPRINE 10MG TABLET PO SCH (20:18)
[2021-01-07] MEDS: ATORVASTATIN 20 MG TAB PO SCH (20:18)
[2021-01-07] MEDS: QUEtiapine FUMARATE 100 MG TAB PO SCH (20:18)
[2021-01-08] MEDS: LEVOTHYROXINE 100MCG TABLET (0.1MG) PO SCH (05:45)
[2021-01-08] MEDS: IBUPROFEN 800 MG TAB PO SCH ×3 (05:45→20:44)
[2021-01-08] MEDS: HumaLOG INSULIN (NovoLOG) PER UNIT SC SCH ×4 (06:49→20:43)
[2021-01-08 06:50] VITALS: BP 124/70
[2021-01-08] MEDS: TAMSULOSIN 0.4 MG CAP PO SCH (08:17)
[2021-01-08] MEDS: lamoTRIgine 100MG TAB PO SCH (08:18)
[2021-01-08] MEDS: BENZTROPINE 1 MG TAB PO SCH ×2 (08:18→20:42)
[2021-01-08] MEDS: oxyBUTYnin 5 MG TAB PO SCH (08:18)
[2021-01-08] MEDS: ASPIRIN 81MG ENTERIC TABLET PO SCH (08:18)
[2021-01-08] MEDS: VITAMIN D (CHOLECALCIFEROL) 400 INTERNATIONAL UNITS TAB PO SCH (08:18)
[2021-01-08] MEDS: DOCUSATE SODIUM 100MG CAPSULE PO SCH ×2 (08:18→20:42)
[2021-01-08] MEDS: atenoloL 25 MG TAB PO SCH ×2 (08:18→20:43)
[2021-01-08] MEDS: OMEGA-3 1000MG CAPSULE PO SCH (08:18)
[2021-01-08] MEDS: OMEPRAZOLE 20 MG CAP PO SCH (08:18)
[2021-01-08] MEDS: FLUTICASONE PROP 0.05% NASAL SPRAY 16 GM (FLONASE) NARES SCH (08:19)
[2021-01-08] MEDS: ANALGESIC BALM CRM 3OZ TOP SCH ×3 (08:19→20:45)
[2021-01-08] MEDS: guaiFENesin DM LIQ 10ML UD PO PRN (08:57)
[2021-01-08] MEDS: SALIVA SUBSTITUTE(MOUTHKOTE) BTL MT PRN (10:31)
[2021-01-08] MEDS: diphenhydrAMINE 50MG CAP PO PRN (11:54)
[2021-01-08] MEDS: LIDOCAINE 5% (LIDODERM) PATCH TD SCH (12:32)
[2021-01-08] MEDS: LORazepam 2 MG TAB PO PRN (12:44)
--- NOTE | 2021-01-08 14:46 | MHIPNPDOC ---
[facility] Progress Note Progress Note DATE OF SERVICE: 01/08/21 HISTORY: Patient a 50 y/o man with a past history of bipolar disorder and numerous admissions since his 20's. Was d/c from [facility] [place] Jan 2010 and living in [facility] since. Was admitted on this occasion due to disorganized and paranoid behavior. Currently remains in contact isolation due to possible exposure previous treatment nursing staff. Interval: Was asking for lidocaine patch and received a one-time dose previously, make sure to have daily on his left hip to reported joint pain. Was seen walking the hallways singing to himself songs and required redirection to go to his room in order to avoid conflict with other patients of her agitated. Has not displayed aggressive behavior to himself or others. States mood is okay, sleep is fine, appetite is good. VITAL SIGNS: See below. NEW TEST RESULTS: none CURRENT MEDICATIONS: See below. MENTAL STATUS EXAMINATION: Patient is a 50-year old male, wearing masks and glasses without redirection, no acute distress, elevated BMI, somewhat improved hygiene Speech: spontaneous, normal rate Language skills are poor. Thought processes including: Remains disorganized, tangential at times. Thought content: Denies Suicidal thoughts, intent or plan. Abstract reasoning, and computation: unable to fully assess. Description of associations: concrete Description of abnormal or psychotic thoughts: Continues to report vague AH Judgment: poor Insight: poor Orientation: to person, place, time Recent and remote memory: poor Attention span and concentration: Poor, distractible Language: French Fund of knowledge: Below average Mood: "okay" affect: Some hypomanic mood, grossly psychotic, no change from previous day DIAGNOSES: 1. Schizoaffective disorder bipolar type ASSESSMENT: Ordered standing lidocaine patch, as he thought he did not. Remains grossly psychotic and hypomanic, pending placement. MANAGEMENT PLAN: Continue medications. Has AOT, pending [facility] [place] placement. Continue medications. Placed order for 6-month retention, as due to placement issues likely will not have a spot at [facility] [place] per social work until next week or later. Patient is highly sensitive to any medication changes with rapid decompensation. TIME SPENT: 15 minutes. Vital Signs Vital Signs Date Time Temp Pulse Resp B/P (MAP) Pulse Ox O2 Delivery O2 Flow Rate FiO2 01/08/21 08:18 69 124/70 01/08/21 06:50 97.3 16 93 Room Air Laboratory Data 24H Labs Laboratory Tests 2 01/07/21 16:52: Bedside Glucose (Misc Panel) 140H 01/07/21 20:22: Bedside Glucose (Misc Panel) 227H 01/08/21 06:47: Bedside Glucose (Misc Panel) 208H 01/08/21 11:47: Bedside Glucose (Misc Panel) 395H Current Medications Current Medications Medications (Trade) Dose Ordered Sig/Kailey Route PRN Reason Start Time Stop Time Status Last Admin Dose Admin Acetaminophen (Tylenol Tab) 650 mg Q6HP PRN PO HEADACHE or MILD DISCOMFORT 12/01/20 16:05 01/07/21 04:52 Acetaminophen (Tylenol Tab) 650 mg Q6HP PRN PO HEADACHE or MILD DISCOMFORT 11/18/20 12:40 11/24/20 01:45 DC 11/23/20 03:09 Al Hydrox/Mg Hydrox/Simethicone (Mylanta) 30 ml Q4HP PRN PO HEARTBURN/INDIGESTION 11/18/20 12:40 11/24/20 01:45 DC 11/23/20 22:34 Amlodipine Besylate (Norvasc) 10 mg DAILY PO 11/19/20 09:00 11/22/20 08:55 DC 11/22/20 08:20 Aspirin (Ecotrin) 81 mg DAILY PO 11/24/20 09:00 01/08/21 08:18 Aspirin (Ecotrin) 81 mg QAM PO 11/22/20 09:00 11/24/20 01:45 DC 11/23/20 07:58 Atenolol (Tenormin) 25 mg BID PO 11/22/20 09:00 11/22/20 12:53 DC 11/22/20 09:51 Atenolol (Tenormin) 25 mg BID PO 11/24/20 09:00 01/08/21 08:18 Atenolol (Tenormin) 50 mg BID PO 11/22/20 21:00 11/24/20 00:13 DC 11/23/20 21:16 Atorvastatin Calcium (Lipitor) 40 mg QHS PO 11/18/20 21:00 11/24/20 01:45 DC 11/23/20 21:16 Atorvastatin Calcium (Lipitor) 40 mg QHS PO 11/24/20 21:00 01/07/21 20:18 Benztropine Mesylate (Cogentin) 1 mg BID PO 11/18/20 09:00 11/24/20 01:45 DC 11/23/20 21:15 Benztropine Mesylate (Cogentin) 1 mg BID PO 11/24/20 09:00 01/08/21 08:18 Cyclobenzaprine HCl (Flexeril) 10 mg QHS PO 11/20/20 21:00 11/24/20 01:45 DC 11/23/20 21:16 Cyclobenzaprine HCl (Flexeril) 10 mg QHS PO 11/24/20 21:00 01/07/21 20:18 Dextrose (Dextrose 50%) 25 ml ASDIRECTED PRN IV SEE LABEL COMMENTS 01/01/21 16:35 Diphenhydramine HCl (Benadryl) 50 mg Q8HP PRN PO AGITATION 11/19/20 09:10 11/24/20 01:45 DC 11/23/20 17:51 Diphenhydramine HCl (Benadryl) 50 mg Q8HP PRN PO AGITATION 11/24/20 10:55 01/08/21 11:54 Diphenhydramine HCl (Benadryl) 50 mg STAT STAT IM 11/26/20 02:41 11/26/20 02:44 DC 11/26/20 02:53 Diphenhydramine HCl (Benadryl) 50 mg STAT STAT PO 11/19/20 06:48 11/19/20 06:50 DC 11/19/20 07:06 Docusate Sodium (Colace) 100 mg BID PO 11/18/20 21:00 11/24/20 01:45 DC 11/23/20 21:15 Docusate Sodium (Colace) 100 mg BID PO 11/24/20 09:00 01/08/21 08:18 Fish Oil ([place]-3 (1000mg)) 1 cap DAILY PO 12/06/20 09:00 01/08/21 08:18 Fluticasone Propionate (Flonase 0.05% Nasal [place]) 2 spray DAILY NARES 11/19/20 09:00 11/24/20 01:45 DC 11/23/20 08:01 Fluticasone Propionate (Flonase 0.05% Nasal [place]) 2 spray DAILY NARES 11/24/20 09:00 01/08/21 08:19 Glucagon (Glucagon) 1 mg ASDIRECTED PRN SC SEE LABEL COMMENTS 01/01/21 16:35 Glucose (Glucose) 16 GM ASDIRECTED PRN PO SEE LABEL COMMENTS 01/01/21 16:35 Guaifenesin/ Dextromethorphan (Robitussin Dm) 10 ml Q4HP PRN PO COUGH 01/01/21 11:40 01/08/21 08:57 Haloperidol (Haldol) 10 mg Q8HP PRN PO AGITATION 11/19/20 09:10 11/24/20 01:45 DC 11/23/20 23:21 Haloperidol (Haldol) 10 mg Q8HP PRN PO AGITATION 11/24/20 10:55 01/08/21 11:53 Haloperidol (Haldol) 10 mg QHS PO 11/19/20 21:00 11/19/20 09:48 DC Haloperidol (Haldol) 10 mg QHS PO 11/19/20 21:00 11/24/20 01:45 DC 11/23/20 21:16 Haloperidol (Haldol) 10 mg QHS PO 11/24/20 21:00 12/11/20 10:47 DC 12/10/20 21:45 Haloperidol (Haldol) 10 mg QHS PO 12/19/20 21:00 01/07/21 20:18 Haloperidol (Haldol) 10 mg STAT STAT IM 11/26/20 02:41 11/26/20 02:44 DC 11/26/20 02:52 Haloperidol (Haldol) 10 mg STAT STAT PO 11/19/20 06:48 11/19/20 06:50 DC 11/19/20 07:06 Haloperidol (Haldol) 15 mg QHS PO 12/11/20 21:00 12/19/20 10:34 DC 12/18/20 20:05 Haloperidol Decanoate (Haldol Decanoate) 100 mg Q28D IM 11/28/20 12:00 12/26/20 12:49 Home Med (Med Rec Complete!) ASDIRECTED XX 11/17/20 23:25 11/17/20 23:24 DC Ibuprofen (Advil) 800 mg Q8H PO 12/11/20 14:00 01/08/21 13:01 Insulin Human Lispro (HumaLOG INSULIN) SEE PROTOCOL TABLE AC SC 01/01/21 17:30 01/08/21 11:51 Insulin Human Lispro (HumaLOG INSULIN) SEE PROTOCOL TABLE QHS SC 01/01/21 21:00 01/06/21 20:50 Lamotrigine (LaMICtal) 200 mg DAILY PO 11/18/20 09:00 11/24/20 01:45 DC 11/23/20 08:00 Lamotrigine (LaMICtal) 200 mg DAILY PO 11/24/20 09:00 01/08/21 08:18 Levothyroxine Sodium (Synthroid) 100 mcg DAILY@06 PO 11/24/20 06:00 01/08/21 05:45 Levothyroxine Sodium (Synthroid) 100 mcg DAILY@0600 PO 11/19/20 06:00 11/24/20 01:45 DC 11/23/20 05:05 Lidocaine (Lidoderm Patch) 1 patch DAILY TD 01/08/21 09:00 01/08/21 12:32 Lorazepam (Ativan) 2 mg Q8HP PRN PO ANXIETY/AGITATION 12/02/20 12:05 01/08/21 12:44 Lorazepam (Ativan) 2 mg Q8HP PRN PO AGITATION 11/19/20 09:10 11/24/20 01:45 DC 11/23/20 23:21 Lorazepam (Ativan) 2 mg Q8HP PRN PO AGITATION 11/24/20 10:55 12/01/20 10:54 DC 11/30/20 22:04 Lorazepam (Ativan) 2 mg STAT STAT IM 11/26/20 02:41 11/26/20 02:44 DC 11/26/20 02:53 Lorazepam (Ativan) 2 mg STAT STAT PO 11/19/20 06:48 11/19/20 06:50 DC 11/19/20 07:06 Losartan Potassium (Cozaar) 50 mg DAILY PO 11/19/20 09:00 11/22/20 08:55 DC 11/22/20 08:20 Magnesium Hydroxide (Milk Of Magnesia) 30 ml DAILYPRN PRN PO CONSTIPATION 11/18/20 12:40 11/24/20 01:45 DC Magnesium Hydroxide (Milk Of Magnesia) 30 ml DAILYPRN PRN PO CONSTIPATION 11/24/20 10:55 Menthol/Methyl Salicylate (Bengay Cream) Allow patient to apply t... BID PRN TOP MILD PAIN (PS 1-4) 12/19/20 11:40 01/01/21 12:36 DC 01/01/21 09:02 Menthol/Methyl Salicylate (Bengay Cream) Allow patient to apply t... TID TOP 01/01/21 16:00 01/08/21 08:19 Metformin HCl (Glucophage) 1,000 mg BID@08,18 PO 11/24/20 08:00 01/01/21 16:37 DC 01/01/21 07:34 Metformin HCl (Glucophage) 1,000 mg BID@0800,1800 PO 11/18/20 18:00 11/24/20 01:45 DC 11/23/20 17:34 Miscellaneous (Unresolved Clarification Entry) SEE LABEL COMMENTS DAILY XX 11/30/20 09:00 12/02/20 09:53 DC Miscellaneous (Unresolved Clarification Entry) SEE LABEL COMMENTS DAILY XX 12/02/20 09:00 12/02/20 12:12 DC Miscellaneous (Unresolved Clarification Entry) SEE LABEL COMMENTS DAILY XX 12/13/20 09:00 12/15/20 10:07 DC Miscellaneous (Unresolved Clarification Entry) SEE LABEL COMMENTS DAILY XX 12/30/20 09:00 12/30/20 15:31 DC Miscellaneous (Unresolved Clarification Entry) SEE LABEL COMMENTS DAILY XX 12/30/20 09:00 Cancel Miscellaneous (Unresolved Clarification Entry) SEE LABEL COMMENTS DAILY XX 01/07/21 09:00 01/08/21 07:30 DC Miscellaneous (Unresolved Clarification Entry) SEE LABEL COMMENTS DAILY XX 12/22/20 09:00 12/24/20 14:02 DC Montelukast Sodium (Singulair) 10 mg QHS PO 11/18/20 21:00 11/24/20 01:45 DC 11/23/20 21:15 Montelukast Sodium (Singulair) 10 mg QHS PO 11/24/20 21:00 01/07/21 20:18 Non-Formulary Medication ( See Comment Field Below ) REMOVE LIDODERM PATCH DAILY@ XX 01/06/21 21:00 01/06/21 23:59 DC 01/06/21 21:00 Non-Formulary Medication ( See Comment Field Below ) REMOVE LIDODERM PATCH DAILY@21 XX 01/08/21 21:00 Omeprazole (PriLOSEC) 20 mg DAILY PO 12/11/20 09:00 01/08/21 08:18 Oxybutynin Chloride (Ditropan) 5 mg DAILY PO 11/19/20 09:00 11/24/20 01:45 DC 11/23/20 08:00 Oxybutynin Chloride (Ditropan) 5 mg DAILY PO 11/24/20 09:00 01/08/21 08:18 Propranolol HCl (Inderal) 10 mg BID PO 11/18/20 21:00 11/22/20 08:55 DC 11/22/20 08:20 Quetiapine Fumarate (SEROquel) 200 mg QHS PO 11/19/20 21:00 11/24/20 01:45 DC 11/23/20 21:15 Quetiapine Fumarate (SEROquel) 200 mg QHS PO 11/24/20 21:00 12/04/20 08:57 DC 12/03/20 20:20 Quetiapine Fumarate (SEROquel) 300 mg QHS PO 12/04/20 21:00 01/07/21 20:18 Saliva Substitute (Mouthkote) ASDIRECTED PRN MT DRY MOUTH 01/01/21 12:30 01/08/21 10:31 Tamsulosin HCl (Flomax) 0.8 mg DAILY PO 11/19/20 09:00 11/24/20 01:45 DC 11/23/20 08:01 Tamsulosin HCl (Flomax) 0.8 mg DAILY PO 11/24/20 09:00 01/08/21 08:17 Trazodone HCl (Desyrel) 50 mg QPM PO 01/06/21 21:00 01/07/21 20:18 Trazodone HCl (Desyrel) 100 mg QPM PO 11/18/20 21:00 11/24/20 01:45 DC 11/23/20 21:16 Trazodone HCl (Desyrel) 100 mg QPM PO 11/24/20 21:00 01/06/21 10:12 DC 01/05/21 20:36 Vitamin D (Vitamin D) 400 units DAILY PO 11/19/20 09:00 11/24/20 01:45 DC 11/23/20 08:00 Vitamin D (Vitamin D) 400 units DAILY PO 11/24/20 09:00 01/08/21 08:18 Allergies Coded Allergies: Penicillins (Verified Allergy, Intermediate, rash, 01/02/19) latex (Verified Allergy, Intermediate, rash, 12/13/19) divalproex sodium (Verified Allergy, Unknown, 01/02/19) AYESHA MOLINA MD Jan 08, 2021 14:46
[2021-01-08 16:06] VITALS: BP 163/95
[2021-01-08] MEDS: CYCLOBENZAPRINE 10MG TABLET PO SCH (20:42)
[2021-01-08] MEDS: ATORVASTATIN 20 MG TAB PO SCH (20:42)
[2021-01-08] MEDS: MONTELUKAST 10 MG TAB PO SCH (20:42)
[2021-01-08] MEDS: traZODone 50 MG TAB PO SCH (20:42)
[2021-01-08] MEDS: QUEtiapine FUMARATE 100 MG TAB PO SCH (20:42)
[2021-01-08] MEDS: haloperidoL 5 MG TAB PO SCH (20:43)
[2021-01-08] MEDS: **NOTE PATIENT COMMENT** MISC XX SCH (22:51)
[2021-01-09] MEDS: LEVOTHYROXINE 100MCG TABLET (0.1MG) PO SCH (05:44)
[2021-01-09 06:44] VITALS: BP 152/98
[2021-01-09] MEDS: HumaLOG INSULIN (NovoLOG) PER UNIT SC SCH ×4 (06:46→21:00)
[2021-01-09] MEDS: LIDOCAINE 5% (LIDODERM) PATCH TD SCH (08:08)
[2021-01-09] MEDS: FLUTICASONE PROP 0.05% NASAL SPRAY 16 GM (FLONASE) NARES SCH (08:09)
[2021-01-09] MEDS: OMEGA-3 1000MG CAPSULE PO SCH (08:10)
[2021-01-09] MEDS: oxyBUTYnin 5 MG TAB PO SCH (08:10)
[2021-01-09] MEDS: lamoTRIgine 100MG TAB PO SCH (08:10)
[2021-01-09] MEDS: VITAMIN D (CHOLECALCIFEROL) 400 INTERNATIONAL UNITS TAB PO SCH (08:10)
[2021-01-09] MEDS: ANALGESIC BALM CRM 3OZ TOP SCH ×3 (08:10→21:32)
[2021-01-09] MEDS: BENZTROPINE 1 MG TAB PO SCH ×2 (08:11→21:31)
[2021-01-09] MEDS: atenoloL 25 MG TAB PO SCH ×2 (08:11→21:31)
[2021-01-09] MEDS: ASPIRIN 81MG ENTERIC TABLET PO SCH (08:13)
[2021-01-09] MEDS: DOCUSATE SODIUM 100MG CAPSULE PO SCH ×2 (08:13→21:31)
[2021-01-09] MEDS: TAMSULOSIN 0.4 MG CAP PO SCH (08:13)
[2021-01-09] MEDS: IBUPROFEN 800 MG TAB PO SCH ×2 (08:13→21:34)
[2021-01-09] MEDS: OMEPRAZOLE 20 MG CAP PO SCH (08:14)
[2021-01-09] MEDS: SALIVA SUBSTITUTE(MOUTHKOTE) BTL MT PRN (09:52)
[2021-01-09] MEDS: LORazepam 2 MG TAB PO PRN (11:38)
[2021-01-09] MEDS: diphenhydrAMINE 50MG CAP PO PRN (11:39)
[2021-01-09] MEDS: ACETAMINOPHEN TAB 650MG DOSE (2X325MG) PO PRN (15:15)
--- NOTE | 2021-01-09 15:21 | MHIPNPDOC ---
[facility] Progress Note Progress Note DATE OF SERVICE: 01/09/21 HISTORY: Patient a 50 y/o man with a past history of bipolar disorder and numerous admissions since his 's. Was d/c from [facility] Jan 2010 and living in [facility] since. Was admitted on this occasion due to disorganized and paranoid behavior. Currently remains in contact isolation due to possible exposure previous treatment nursing staff. Interval: Patient continues to be seen in the hallway, but was more directable today after receiving Haldol. States he is calm and feels good today, has to be weighed around so that has not changed since yesterday. Understanding of pending placement. VITAL SIGNS: See below. NEW TEST RESULTS: none CURRENT MEDICATIONS: See below. MENTAL STATUS EXAMINATION: Patient is a 50-year old male, wearing masks and glasses without redirection, no acute distress, elevated BMI, somewhat improved hygiene Speech: spontaneous, normal rate Language skills are poor. Thought processes including: Remains disorganized, tangential at times. Thought content: Denies Suicidal thoughts, intent or plan. Abstract reasoning, and computation: unable to fully assess. Description of associations: concrete Description of abnormal or psychotic thoughts: Continues to report chronic AH Judgment: poor Insight: poor Orientation: to person, place, time Recent and remote memory: poor Attention span and concentration: Poor, distractible Language: Estonian Fund of knowledge: Below average Mood: "ok" affect: No change from yesterday, good response to Haldol, less hypomanic mood, concrete, no change from previous day DIAGNOSES: 1. Schizoaffective disorder bipolar type ASSESSMENT: No change, remains grossly psychotic and hypomanic, pending placement. MANAGEMENT PLAN: Continue medications. Has AOT, pending [facility] placement. Continue medications. Placed order for 6-month retention, as due to placement issues likely will not have a spot at [facility] per social work until next week or later. Patient is highly sensitive to any medication changes with rapid decompensation. TIME SPENT: 15 minutes. Vital Signs Vital Signs Date Time Temp Pulse Resp B/P (MAP) Pulse Ox O2 Delivery O2 Flow Rate FiO2 01/09/21 08:11 76 152/98 01/09/21 06:44 97.0 18 95 Room Air Laboratory Data 24H Labs Laboratory Tests 2 01/08/21 17:13: Bedside Glucose (Misc Panel) 168H 01/08/21 20:38: Bedside Glucose (Misc Panel) 265H 01/09/21 06:30: Bedside Glucose (Misc Panel) 189H 01/09/21 11:31: Bedside Glucose (Misc Panel) 396H Current Medications Current Medications Medications (Trade) Dose Ordered Sig/Kailey Route PRN Reason Start Time Stop Time Status Last Admin Dose Admin Acetaminophen (Tylenol Tab) 650 mg Q6HP PRN PO HEADACHE or MILD DISCOMFORT 12/01/20 16:05 01/09/21 15:15 Acetaminophen (Tylenol Tab) 650 mg Q6HP PRN PO HEADACHE or MILD DISCOMFORT 11/18/20 12:40 11/24/20 01:45 DC 11/23/20 03:09 Al Hydrox/Mg Hydrox/Simethicone (Mylanta) 30 ml Q4HP PRN PO HEARTBURN/INDIGESTION 11/18/20 12:40 11/24/20 01:45 DC 11/23/20 22:34 Amlodipine Besylate (Norvasc) 10 mg DAILY PO 11/19/20 09:00 11/22/20 08:55 DC 11/22/20 08:20 Aspirin (Ecotrin) 81 mg DAILY PO 11/24/20 09:00 01/09/21 08:13 Aspirin (Ecotrin) 81 mg QAM PO 11/22/20 09:00 11/24/20 01:45 DC 11/23/20 07:58 Atenolol (Tenormin) 25 mg BID PO 11/22/20 09:00 11/22/20 12:53 DC 11/22/20 09:51 Atenolol (Tenormin) 25 mg BID PO 11/24/20 09:00 01/09/21 08:11 Atenolol (Tenormin) 50 mg BID PO 11/22/20 21:00 11/24/20 00:13 DC 11/23/20 21:16 Atorvastatin Calcium (Lipitor) 40 mg QHS PO 11/18/20 21:00 11/24/20 01:45 DC 11/23/20 21:16 Atorvastatin Calcium (Lipitor) 40 mg QHS PO 11/24/20 21:00 01/08/21 20:42 Benztropine Mesylate (Cogentin) 1 mg BID PO 11/18/20 09:00 11/24/20 01:45 DC 11/23/20 21:15 Benztropine Mesylate (Cogentin) 1 mg BID PO 11/24/20 09:00 01/09/21 08:11 Cyclobenzaprine HCl (Flexeril) 10 mg QHS PO 11/20/20 21:00 11/24/20 01:45 DC 11/23/20 21:16 Cyclobenzaprine HCl (Flexeril) 10 mg QHS PO 11/24/20 21:00 01/08/21 20:42 Dextrose (Dextrose 50%) 25 ml ASDIRECTED PRN IV SEE LABEL COMMENTS 01/01/21 16:35 Diphenhydramine HCl (Benadryl) 50 mg Q8HP PRN PO AGITATION 11/19/20 09:10 11/24/20 01:45 DC 11/23/20 17:51 Diphenhydramine HCl (Benadryl) 50 mg Q8HP PRN PO AGITATION 11/24/20 10:55 01/09/21 11:39 Diphenhydramine HCl (Benadryl) 50 mg STAT STAT IM 11/26/20 02:41 11/26/20 02:44 DC 11/26/20 02:53 Diphenhydramine HCl (Benadryl) 50 mg STAT STAT PO 11/19/20 06:48 11/19/20 06:50 DC 11/19/20 07:06 Docusate Sodium (Colace) 100 mg BID PO 11/18/20 21:00 11/24/20 01:45 DC 11/23/20 21:15 Docusate Sodium (Colace) 100 mg BID PO 11/24/20 09:00 01/09/21 08:13 Fish Oil ([place]-3 (1000mg)) 1 cap DAILY PO 12/06/20 09:00 01/09/21 08:10 Fluticasone Propionate (Flonase 0.05% Nasal [place]) 2 spray DAILY NARES 11/19/20 09:00 11/24/20 01:45 DC 11/23/20 08:01 Fluticasone Propionate (Flonase 0.05% Nasal [place]) 2 spray DAILY NARES 11/24/20 09:00 01/09/21 08:09 Glucagon (Glucagon) 1 mg ASDIRECTED PRN SC SEE LABEL COMMENTS 01/01/21 16:35 Glucose (Glucose) 16 GM ASDIRECTED PRN PO SEE LABEL COMMENTS 01/01/21 16:35 Guaifenesin/ Dextromethorphan (Robitussin Dm) 10 ml Q4HP PRN PO COUGH 01/01/21 11:40 01/08/21 08:57 Haloperidol (Haldol) 10 mg Q8HP PRN PO AGITATION 11/19/20 09:10 11/24/20 01:45 DC 11/23/20 23:21 Haloperidol (Haldol) 10 mg Q8HP PRN PO AGITATION 11/24/20 10:55 01/09/21 11:38 Haloperidol (Haldol) 10 mg QHS PO 11/19/20 21:00 11/19/20 09:48 DC Haloperidol (Haldol) 10 mg QHS PO 11/19/20 21:00 11/24/20 01:45 DC 11/23/20 21:16 Haloperidol (Haldol) 10 mg QHS PO 11/24/20 21:00 12/11/20 10:47 DC 12/10/20 21:45 Haloperidol (Haldol) 10 mg QHS PO 12/19/20 21:00 01/08/21 20:43 Haloperidol (Haldol) 10 mg STAT STAT IM 11/26/20 02:41 11/26/20 02:44 DC 11/26/20 02:52 Haloperidol (Haldol) 10 mg STAT STAT PO 11/19/20 06:48 11/19/20 06:50 DC 11/19/20 07:06 Haloperidol (Haldol) 15 mg QHS PO 12/11/20 21:00 12/19/20 10:34 DC 12/18/20 20:05 Haloperidol Decanoate (Haldol Decanoate) 100 mg Q28D IM 11/28/20 12:00 12/26/20 12:49 Home Med (Med Rec Complete!) ASDIRECTED XX 11/17/20 23:25 11/17/20 23:24 DC Ibuprofen (Advil) 800 mg Q12H PO 01/08/21 21:00 01/09/21 08:13 Ibuprofen (Advil) 800 mg Q8H PO 12/11/20 14:00 01/08/21 14:46 DC 01/08/21 13:01 Insulin Human Lispro (HumaLOG INSULIN) SEE PROTOCOL TABLE AC SC 01/01/21 17:30 01/09/21 11:38 Insulin Human Lispro (HumaLOG INSULIN) SEE PROTOCOL TABLE QHS SC 01/01/21 21:00 01/08/21 20:43 Lamotrigine (LaMICtal) 200 mg DAILY PO 11/18/20 09:00 11/24/20 01:45 DC 11/23/20 08:00 Lamotrigine (LaMICtal) 200 mg DAILY PO 11/24/20 09:00 01/09/21 08:10 Levothyroxine Sodium (Synthroid) 100 mcg DAILY@06 PO 11/24/20 06:00 01/09/21 05:44 Levothyroxine Sodium (Synthroid) 100 mcg DAILY@0600 PO 11/19/20 06:00 11/24/20 01:45 DC 11/23/20 05:05 Lidocaine (Lidoderm Patch) 1 patch DAILY TD 01/08/21 09:00 01/09/21 08:08 Lorazepam (Ativan) 2 mg Q8HP PRN PO ANXIETY/AGITATION 12/02/20 12:05 01/09/21 11:38 Lorazepam (Ativan) 2 mg Q8HP PRN PO AGITATION 11/19/20 09:10 11/24/20 01:45 DC 11/23/20 23:21 Lorazepam (Ativan) 2 mg Q8HP PRN PO AGITATION 11/24/20 10:55 12/01/20 10:54 DC 11/30/20 22:04 Lorazepam (Ativan) 2 mg STAT STAT IM 11/26/20 02:41 11/26/20 02:44 DC 11/26/20 02:53 Lorazepam (Ativan) 2 mg STAT STAT PO 11/19/20 06:48 11/19/20 06:50 DC 11/19/20 07:06 Losartan Potassium (Cozaar) 50 mg DAILY PO 11/19/20 09:00 11/22/20 08:55 DC 11/22/20 08:20 Magnesium Hydroxide (Milk Of Magnesia) 30 ml DAILYPRN PRN PO CONSTIPATION 11/18/20 12:40 11/24/20 01:45 DC Magnesium Hydroxide (Milk Of Magnesia) 30 ml DAILYPRN PRN PO CONSTIPATION 11/24/20 10:55 01/08/21 17:19 Menthol/Methyl Salicylate (Bengay Cream) Allow patient to apply t... BID PRN TOP MILD PAIN (PS 1-4) 12/19/20 11:40 01/01/21 12:36 DC 01/01/21 09:02 Menthol/Methyl Salicylate (Bengay Cream) Allow patient to apply t... TID TOP 01/01/21 16:00 01/09/21 08:10 Metformin HCl (Glucophage) 1,000 mg BID@08,18 PO 11/24/20 08:00 01/01/21 16:37 DC 01/01/21 07:34 Metformin HCl (Glucophage) 1,000 mg BID@0800,1800 PO 11/18/20 18:00 11/24/20 01:45 DC 11/23/20 17:34 Miscellaneous (Unresolved Clarification Entry) SEE LABEL COMMENTS DAILY XX 11/30/20 09:00 12/02/20 09:53 DC Miscellaneous (Unresolved Clarification Entry) SEE LABEL COMMENTS DAILY XX 12/02/20 09:00 12/02/20 12:12 DC Miscellaneous (Unresolved Clarification Entry) SEE LABEL COMMENTS DAILY XX 12/13/20 09:00 12/15/20 10:07 DC Miscellaneous (Unresolved Clarification Entry) SEE LABEL COMMENTS DAILY XX 12/30/20 09:00 12/30/20 15:31 DC Miscellaneous (Unresolved Clarification Entry) SEE LABEL COMMENTS DAILY XX 12/30/20 09:00 Cancel Miscellaneous (Unresolved Clarification Entry) SEE LABEL COMMENTS DAILY XX 01/07/21 09:00 01/08/21 07:30 DC Miscellaneous (Unresolved Clarification Entry) SEE LABEL COMMENTS DAILY XX 12/22/20 09:00 12/24/20 14:02 DC Montelukast Sodium (Singulair) 10 mg QHS PO 11/18/20 21:00 11/24/20 01:45 DC 11/23/20 21:15 Montelukast Sodium (Singulair) 10 mg QHS PO 11/24/20 21:00 01/08/21 20:42 Non-Formulary Medication ( See Comment Field Below ) REMOVE LIDODERM PATCH DAILY@ XX 01/06/21 21:00 01/06/21 23:59 DC 01/06/21 21:00 Non-Formulary Medication ( See Comment Field Below ) REMOVE LIDODERM PATCH DAILY@21 XX 01/08/21 21:00 01/08/21 22:51 Omeprazole (PriLOSEC) 20 mg DAILY PO 12/11/20 09:00 01/09/21 08:14 Oxybutynin Chloride (Ditropan) 5 mg DAILY PO 11/19/20 09:00 11/24/20 01:45 DC 11/23/20 08:00 Oxybutynin Chloride (Ditropan) 5 mg DAILY PO 11/24/20 09:00 01/09/21 08:10 Propranolol HCl (Inderal) 10 mg BID PO 11/18/20 21:00 11/22/20 08:55 DC 11/22/20 08:20 Quetiapine Fumarate (SEROquel) 200 mg QHS PO 11/19/20 21:00 11/24/20 01:45 DC 11/23/20 21:15 Quetiapine Fumarate (SEROquel) 200 mg QHS PO 11/24/20 21:00 12/04/20 08:57 DC 12/03/20 20:20 Quetiapine Fumarate (SEROquel) 300 mg QHS PO 12/04/20 21:00 01/08/21 20:42 Saliva Substitute (Mouthkote) ASDIRECTED PRN MT DRY MOUTH 01/01/21 12:30 01/09/21 09:52 Tamsulosin HCl (Flomax) 0.8 mg DAILY PO 11/19/20 09:00 11/24/20 01:45 DC 11/23/20 08:01 Tamsulosin HCl (Flomax) 0.8 mg DAILY PO 11/24/20 09:00 01/09/21 08:13 Trazodone HCl (Desyrel) 50 mg QPM PO 01/06/21 21:00 01/08/21 20:42 Trazodone HCl (Desyrel) 100 mg QPM PO 11/18/20 21:00 11/24/20 01:45 DC 11/23/20 21:16 Trazodone HCl (Desyrel) 100 mg QPM PO 11/24/20 21:00 01/06/21 10:12 DC 01/05/21 20:36 Vitamin D (Vitamin D) 400 units DAILY PO 11/19/20 09:00 11/24/20 01:45 DC 11/23/20 08:00 Vitamin D (Vitamin D) 400 units DAILY PO 11/24/20 09:00 01/09/21 08:10 Allergies Coded Allergies: Penicillins (Verified Allergy, Intermediate, rash, 01/02/19) latex (Verified Allergy, Intermediate, rash, 12/13/19) divalproex sodium (Verified Allergy, Unknown, 01/02/19) AYESHA MOLINA MD Jan 09, 2021 15:21
[2021-01-09 18:59] VITALS: BP 164/89
[2021-01-09] MEDS: MONTELUKAST 10 MG TAB PO SCH (21:30)
[2021-01-09] MEDS: ATORVASTATIN 20 MG TAB PO SCH (21:31)
[2021-01-09] MEDS: QUEtiapine FUMARATE 100 MG TAB PO SCH (21:31)
[2021-01-09] MEDS: haloperidoL 5 MG TAB PO SCH (21:31)
[2021-01-09] MEDS: CYCLOBENZAPRINE 10MG TABLET PO SCH (21:31)
[2021-01-09] MEDS: traZODone 50 MG TAB PO SCH (21:31)
[2021-01-09] MEDS: **NOTE PATIENT COMMENT** MISC XX SCH (21:32)
[2021-01-10] MEDS: LEVOTHYROXINE 100MCG TABLET (0.1MG) PO SCH (06:20)
[2021-01-10 06:42] VITALS: BP 153/77
[2021-01-10] MEDS: HumaLOG INSULIN (NovoLOG) PER UNIT SC SCH ×4 (06:52→21:00)
[2021-01-10] MEDS: ANALGESIC BALM CRM 3OZ TOP SCH ×3 (08:06→21:24)
[2021-01-10] MEDS: FLUTICASONE PROP 0.05% NASAL SPRAY 16 GM (FLONASE) NARES SCH (08:06)
[2021-01-10] MEDS: LIDOCAINE 5% (LIDODERM) PATCH TD SCH (08:07)
[2021-01-10] MEDS: TAMSULOSIN 0.4 MG CAP PO SCH (08:11)
[2021-01-10] MEDS: VITAMIN D (CHOLECALCIFEROL) 400 INTERNATIONAL UNITS TAB PO SCH (08:11)
[2021-01-10] MEDS: OMEPRAZOLE 20 MG CAP PO SCH (08:11)
[2021-01-10] MEDS: lamoTRIgine 100MG TAB PO SCH (08:11)
[2021-01-10] MEDS: ASPIRIN 81MG ENTERIC TABLET PO SCH (08:11)
[2021-01-10] MEDS: oxyBUTYnin 5 MG TAB PO SCH (08:12)
[2021-01-10] MEDS: BENZTROPINE 1 MG TAB PO SCH ×2 (08:12→21:18)
[2021-01-10] MEDS: OMEGA-3 1000MG CAPSULE PO SCH (08:12)
[2021-01-10] MEDS: IBUPROFEN 800 MG TAB PO SCH ×2 (08:12→21:18)
[2021-01-10] MEDS: DOCUSATE SODIUM 100MG CAPSULE PO SCH ×2 (08:12→21:45)
[2021-01-10] MEDS: atenoloL 25 MG TAB PO SCH ×2 (08:13→21:23)
--- NOTE | 2021-01-10 10:09 | MHIPNPDOC ---
[facility] Progress Note Progress Note DATE OF SERVICE: 01/10/21 HISTORY: Patient a 50 y/o man with a past history of bipolar disorder and numerous admissions since his 20's. Was d/c from [facility] Jan 2010 and living in [facility] since. Was admitted on this occasion due to disorganized and paranoid behavior. Currently remains in contact isolation due to possible exposure previous treatment nursing staff. Interval: Patient is calm relaxed with redirection, although sings in the hallways at times and has to be reminded constantly put on his mask. He reports the ibuprofen helps with this foot pain and that the lidocaine patch helped with his hip pain, his sleep is improved because of this. States he hears voices for multiple family members but nothing scary or command. Reports mood is "good". Appetite is normal. Has been going to groups, no acute physical complaints apart from the above-mentioned which she says are responding well to medications. VITAL SIGNS: See below. NEW TEST RESULTS: none CURRENT MEDICATIONS: See below. MENTAL STATUS EXAMINATION: Patient is a 50-year old male, wearing masks and glasses without redirection, no acute distress, elevated BMI, somewhat improved hygiene Speech: spontaneous, normal rate Language skills are poor. Thought processes including: Remains disorganized, tangential at times. Thought content: Denies Suicidal thoughts, intent or plan. Abstract reasoning, and computation: unable to fully assess. Description of associations: concrete Description of abnormal or psychotic thoughts: Continues to report chronic AH Judgment: poor Insight: poor Orientation: to person, place, time Recent and remote memory: poor Attention span and concentration: Poor, distractible Language: Lebanese Fund of knowledge: Below average Mood: "good" affect: Grossly psychotic DIAGNOSES: 1. Schizoaffective disorder bipolar type ASSESSMENT: Continues to be grossly psychotic, concrete, some mood lability, no change from yesterday, pending placement. MANAGEMENT PLAN: Continue medications. Has AOT, pending [facility] placement. Continue medications. Placed order for 6-month retention, as due to placement issues likely will not have a spot at [facility] per social work until next week or later. Patient is highly sensitive to any medication changes with rapid decompensation. TIME SPENT: 15 minutes. Vital Signs Vital Signs Date Time Temp Pulse Resp B/P (MAP) Pulse Ox O2 Delivery O2 Flow Rate FiO2 01/10/21 08:13 70 153/77 01/10/21 06:42 96.7 16 98 Room Air Laboratory Data 24H Labs Laboratory Tests 2 01/09/21 11:31: Bedside Glucose (Misc Panel) 396H 01/09/21 16:48: Bedside Glucose (Misc Panel) 192H 01/09/21 21:29: Bedside Glucose (Misc Panel) 191H 01/10/21 06:48: Bedside Glucose (Misc Panel) 163H Current Medications Current Medications Medications (Trade) Dose Ordered Sig/Kailey Route PRN Reason Start Time Stop Time Status Last Admin Dose Admin Acetaminophen (Tylenol Tab) 650 mg Q6HP PRN PO HEADACHE or MILD DISCOMFORT 12/01/20 16:05 01/09/21 15:15 Acetaminophen (Tylenol Tab) 650 mg Q6HP PRN PO HEADACHE or MILD DISCOMFORT 11/18/20 12:40 11/24/20 01:45 DC 11/23/20 03:09 Al Hydrox/Mg Hydrox/Simethicone (Mylanta) 30 ml Q4HP PRN PO HEARTBURN/INDIGESTION 11/18/20 12:40 11/24/20 01:45 DC 11/23/20 22:34 Amlodipine Besylate (Norvasc) 10 mg DAILY PO 11/19/20 09:00 11/22/20 08:55 DC 11/22/20 08:20 Aspirin (Ecotrin) 81 mg DAILY PO 11/24/20 09:00 01/10/21 08:11 Aspirin (Ecotrin) 81 mg QAM PO 11/22/20 09:00 11/24/20 01:45 DC 11/23/20 07:58 Atenolol (Tenormin) 25 mg BID PO 11/22/20 09:00 11/22/20 12:53 DC 11/22/20 09:51 Atenolol (Tenormin) 25 mg BID PO 11/24/20 09:00 01/10/21 08:13 Atenolol (Tenormin) 50 mg BID PO 11/22/20 21:00 11/24/20 00:13 DC 11/23/20 21:16 Atorvastatin Calcium (Lipitor) 40 mg QHS PO 11/18/20 21:00 11/24/20 01:45 DC 11/23/20 21:16 Atorvastatin Calcium (Lipitor) 40 mg QHS PO 11/24/20 21:00 01/09/21 21:31 Benztropine Mesylate (Cogentin) 1 mg BID PO 11/18/20 09:00 11/24/20 01:45 DC 11/23/20 21:15 Benztropine Mesylate (Cogentin) 1 mg BID PO 11/24/20 09:00 01/10/21 08:12 Cyclobenzaprine HCl (Flexeril) 10 mg QHS PO 11/20/20 21:00 11/24/20 01:45 DC 11/23/20 21:16 Cyclobenzaprine HCl (Flexeril) 10 mg QHS PO 11/24/20 21:00 01/09/21 21:31 Dextrose (Dextrose 50%) 25 ml ASDIRECTED PRN IV SEE LABEL COMMENTS 01/01/21 16:35 Diphenhydramine HCl (Benadryl) 50 mg Q8HP PRN PO AGITATION 11/19/20 09:10 11/24/20 01:45 DC 11/23/20 17:51 Diphenhydramine HCl (Benadryl) 50 mg Q8HP PRN PO AGITATION 11/24/20 10:55 01/09/21 11:39 Diphenhydramine HCl (Benadryl) 50 mg STAT STAT IM 11/26/20 02:41 11/26/20 02:44 DC 11/26/20 02:53 Diphenhydramine HCl (Benadryl) 50 mg STAT STAT PO 11/19/20 06:48 11/19/20 06:50 DC 11/19/20 07:06 Docusate Sodium (Colace) 100 mg BID PO 11/18/20 21:00 11/24/20 01:45 DC 11/23/20 21:15 Docusate Sodium (Colace) 100 mg BID PO 11/24/20 09:00 01/10/21 08:12 Fish Oil ([place]-3 (1000mg)) 1 cap DAILY PO 12/06/20 09:00 01/10/21 08:12 Fluticasone Propionate (Flonase 0.05% Nasal [place]) 2 spray DAILY NARES 11/19/20 09:00 11/24/20 01:45 DC 11/23/20 08:01 Fluticasone Propionate (Flonase 0.05% Nasal [place]) 2 spray DAILY NARES 11/24/20 09:00 01/10/21 08:06 Glucagon (Glucagon) 1 mg ASDIRECTED PRN SC SEE LABEL COMMENTS 01/01/21 16:35 Glucose (Glucose) 16 GM ASDIRECTED PRN PO SEE LABEL COMMENTS 01/01/21 16:35 Guaifenesin/ Dextromethorphan (Robitussin Dm) 10 ml Q4HP PRN PO COUGH 01/01/21 11:40 01/08/21 08:57 Haloperidol (Haldol) 10 mg Q8HP PRN PO AGITATION 11/19/20 09:10 11/24/20 01:45 DC 11/23/20 23:21 Haloperidol (Haldol) 10 mg Q8HP PRN PO AGITATION 11/24/20 10:55 01/09/21 11:38 Haloperidol (Haldol) 10 mg QHS PO 11/19/20 21:00 11/19/20 09:48 DC Haloperidol (Haldol) 10 mg QHS PO 11/19/20 21:00 11/24/20 01:45 DC 11/23/20 21:16 Haloperidol (Haldol) 10 mg QHS PO 11/24/20 21:00 12/11/20 10:47 DC 12/10/20 21:45 Haloperidol (Haldol) 10 mg QHS PO 12/19/20 21:00 01/09/21 21:31 Haloperidol (Haldol) 10 mg STAT STAT IM 11/26/20 02:41 11/26/20 02:44 DC 11/26/20 02:52 Haloperidol (Haldol) 10 mg STAT STAT PO 11/19/20 06:48 11/19/20 06:50 DC 11/19/20 07:06 Haloperidol (Haldol) 15 mg QHS PO 12/11/20 21:00 12/19/20 10:34 DC 12/18/20 20:05 Haloperidol Decanoate (Haldol Decanoate) 100 mg Q28D IM 11/28/20 12:00 12/26/20 12:49 Home Med (Med Rec Complete!) ASDIRECTED XX 11/17/20 23:25 11/17/20 23:24 DC Ibuprofen (Advil) 800 mg Q12H PO 01/08/21 21:00 01/10/21 08:12 Ibuprofen (Advil) 800 mg Q8H PO 12/11/20 14:00 01/08/21 14:46 DC 01/08/21 13:01 Insulin Human Lispro (HumaLOG INSULIN) SEE PROTOCOL TABLE AC SC 01/01/21 17:30 01/10/21 06:52 Insulin Human Lispro (HumaLOG INSULIN) SEE PROTOCOL TABLE QHS SC 01/01/21 21:00 01/08/21 20:43 Lamotrigine (LaMICtal) 200 mg DAILY PO 11/18/20 09:00 11/24/20 01:45 DC 11/23/20 08:00 Lamotrigine (LaMICtal) 200 mg DAILY PO 11/24/20 09:00 01/10/21 08:11 Levothyroxine Sodium (Synthroid) 100 mcg DAILY@06 PO 11/24/20 06:00 01/10/21 06:20 Levothyroxine Sodium (Synthroid) 100 mcg DAILY@0600 PO 11/19/20 06:00 11/24/20 01:45 DC 11/23/20 05:05 Lidocaine (Lidoderm Patch) 1 patch DAILY TD 01/08/21 09:00 01/10/21 08:07 Lorazepam (Ativan) 2 mg Q8HP PRN PO ANXIETY/AGITATION 12/02/20 12:05 01/09/21 11:38 Lorazepam (Ativan) 2 mg Q8HP PRN PO AGITATION 11/19/20 09:10 11/24/20 01:45 DC 11/23/20 23:21 Lorazepam (Ativan) 2 mg Q8HP PRN PO AGITATION 11/24/20 10:55 12/01/20 10:54 DC 11/30/20 22:04 Lorazepam (Ativan) 2 mg STAT STAT IM 11/26/20 02:41 11/26/20 02:44 DC 11/26/20 02:53 Lorazepam (Ativan) 2 mg STAT STAT PO 11/19/20 06:48 11/19/20 06:50 DC 11/19/20 07:06 Losartan Potassium (Cozaar) 50 mg DAILY PO 11/19/20 09:00 11/22/20 08:55 DC 11/22/20 08:20 Magnesium Hydroxide (Milk Of Magnesia) 30 ml DAILYPRN PRN PO CONSTIPATION 11/18/20 12:40 11/24/20 01:45 DC Magnesium Hydroxide (Milk Of Magnesia) 30 ml DAILYPRN PRN PO CONSTIPATION 11/24/20 10:55 01/08/21 17:19 Menthol/Methyl Salicylate (Bengay Cream) Allow patient to apply t... BID PRN TOP MILD PAIN (PS 1-4) 12/19/20 11:40 01/01/21 12:36 DC 01/01/21 09:02 Menthol/Methyl Salicylate (Bengay Cream) Allow patient to apply t... TID TOP 01/01/21 16:00 01/10/21 08:06 Metformin HCl (Glucophage) 1,000 mg BID@08,18 PO 11/24/20 08:00 01/01/21 16:37 DC 01/01/21 07:34 Metformin HCl (Glucophage) 1,000 mg BID@0800,1800 PO 11/18/20 18:00 11/24/20 01:45 DC 11/23/20 17:34 Miscellaneous (Unresolved Clarification Entry) SEE LABEL COMMENTS DAILY XX 11/30/20 09:00 12/02/20 09:53 DC Miscellaneous (Unresolved Clarification Entry) SEE LABEL COMMENTS DAILY XX 12/02/20 09:00 12/02/20 12:12 DC Miscellaneous (Unresolved Clarification Entry) SEE LABEL COMMENTS DAILY XX 12/13/20 09:00 12/15/20 10:07 DC Miscellaneous (Unresolved Clarification Entry) SEE LABEL COMMENTS DAILY XX 12/30/20 09:00 12/30/20 15:31 DC Miscellaneous (Unresolved Clarification Entry) SEE LABEL COMMENTS DAILY XX 12/30/20 09:00 Cancel Miscellaneous (Unresolved Clarification Entry) SEE LABEL COMMENTS DAILY XX 01/07/21 09:00 01/08/21 07:30 DC Miscellaneous (Unresolved Clarification Entry) SEE LABEL COMMENTS DAILY XX 12/22/20 09:00 12/24/20 14:02 DC Montelukast Sodium (Singulair) 10 mg QHS PO 11/18/20 21:00 11/24/20 01:45 DC 11/23/20 21:15 Montelukast Sodium (Singulair) 10 mg QHS PO 11/24/20 21:00 01/09/21 21:30 Non-Formulary Medication ( See Comment Field Below ) REMOVE LIDODERM PATCH DAILY@ XX 01/06/21 21:00 01/06/21 23:59 DC 01/06/21 21:00 Non-Formulary Medication ( See Comment Field Below ) REMOVE LIDODERM PATCH DAILY@21 XX 01/08/21 21:00 01/09/21 21:32 Omeprazole (PriLOSEC) 20 mg DAILY PO 12/11/20 09:00 01/10/21 08:11 Oxybutynin Chloride (Ditropan) 5 mg DAILY PO 11/19/20 09:00 11/24/20 01:45 DC 11/23/20 08:00 Oxybutynin Chloride (Ditropan) 5 mg DAILY PO 11/24/20 09:00 01/10/21 08:12 Propranolol HCl (Inderal) 10 mg BID PO 11/18/20 21:00 11/22/20 08:55 DC 11/22/20 08:20 Quetiapine Fumarate (SEROquel) 200 mg QHS PO 11/19/20 21:00 11/24/20 01:45 DC 11/23/20 21:15 Quetiapine Fumarate (SEROquel) 200 mg QHS PO 11/24/20 21:00 12/04/20 08:57 DC 12/03/20 20:20 Quetiapine Fumarate (SEROquel) 300 mg QHS PO 12/04/20 21:00 01/09/21 21:31 Saliva Substitute (Mouthkote) ASDIRECTED PRN MT DRY MOUTH 01/01/21 12:30 01/09/21 09:52 Tamsulosin HCl (Flomax) 0.8 mg DAILY PO 11/19/20 09:00 11/24/20 01:45 DC 11/23/20 08:01 Tamsulosin HCl (Flomax) 0.8 mg DAILY PO 11/24/20 09:00 01/10/21 08:11 Trazodone HCl (Desyrel) 50 mg QPM PO 01/06/21 21:00 01/09/21 21:31 Trazodone HCl (Desyrel) 100 mg QPM PO 11/18/20 21:00 11/24/20 01:45 DC 11/23/20 21:16 Trazodone HCl (Desyrel) 100 mg QPM PO 11/24/20 21:00 01/06/21 10:12 DC 01/05/21 20:36 Vitamin D (Vitamin D) 400 units DAILY PO 11/19/20 09:00 11/24/20 01:45 DC 11/23/20 08:00 Vitamin D (Vitamin D) 400 units DAILY PO 11/24/20 09:00 01/10/21 08:11 Allergies Coded Allergies: Penicillins (Verified Allergy, Intermediate, rash, 01/02/19) latex (Verified Allergy, Intermediate, rash, 12/13/19) divalproex sodium (Verified Allergy, Unknown, 01/02/19) AYESHA MOLINA MD Jan 10, 2021 10:09
[2021-01-10] MEDS: diphenhydrAMINE 50MG CAP PO PRN (12:34)
[2021-01-10] MEDS: LORazepam 2 MG TAB PO PRN (12:34)
[2021-01-10] MEDS: SALIVA SUBSTITUTE(MOUTHKOTE) BTL MT PRN (15:25)
[2021-01-10 18:24] VITALS: BP 163/93
[2021-01-10] MEDS: traZODone 50 MG TAB PO SCH (21:17)
[2021-01-10] MEDS: haloperidoL 5 MG TAB PO SCH (21:17)
[2021-01-10] MEDS: ATORVASTATIN 20 MG TAB PO SCH (21:17)
[2021-01-10] MEDS: CYCLOBENZAPRINE 10MG TABLET PO SCH (21:17)
[2021-01-10] MEDS: QUEtiapine FUMARATE 100 MG TAB PO SCH (21:17)
[2021-01-10] MEDS: MONTELUKAST 10 MG TAB PO SCH (21:18)
[2021-01-10] MEDS: **NOTE PATIENT COMMENT** MISC XX SCH (21:24)
[2021-01-11 06:00] VITALS: BP 189/94
[2021-01-11] MEDS: LEVOTHYROXINE 100MCG TABLET (0.1MG) PO SCH (06:13)
[2021-01-11] MEDS: HumaLOG INSULIN (NovoLOG) PER UNIT SC SCH ×4 (06:58→20:56)
[2021-01-11] MEDS: FLUTICASONE PROP 0.05% NASAL SPRAY 16 GM (FLONASE) NARES SCH (08:44)
[2021-01-11] MEDS: LIDOCAINE 5% (LIDODERM) PATCH TD SCH (08:44)
[2021-01-11] MEDS: OMEGA-3 1000MG CAPSULE PO SCH (08:45)
[2021-01-11] MEDS: DOCUSATE SODIUM 100MG CAPSULE PO SCH ×2 (08:45→20:53)
[2021-01-11] MEDS: ASPIRIN 81MG ENTERIC TABLET PO SCH (08:45)
[2021-01-11] MEDS: ANALGESIC BALM CRM 3OZ TOP SCH ×3 (08:45→20:55)
[2021-01-11] MEDS: OMEPRAZOLE 20 MG CAP PO SCH (08:45)
[2021-01-11] MEDS: TAMSULOSIN 0.4 MG CAP PO SCH (08:45)
[2021-01-11] MEDS: IBUPROFEN 800 MG TAB PO SCH ×2 (08:46→20:53)
[2021-01-11] MEDS: VITAMIN D (CHOLECALCIFEROL) 400 INTERNATIONAL UNITS TAB PO SCH (08:47)
[2021-01-11] MEDS: BENZTROPINE 1 MG TAB PO SCH ×2 (08:47→20:51)
[2021-01-11] MEDS: atenoloL 25 MG TAB PO SCH ×2 (08:50→20:51)
[2021-01-11] MEDS: lamoTRIgine 100MG TAB PO SCH (08:50)
[2021-01-11] MEDS: oxyBUTYnin 5 MG TAB PO SCH (08:50)
[2021-01-11 09:16] VITALS: BP 124/84
[2021-01-11] MEDS: ACETAMINOPHEN TAB 650MG DOSE (2X325MG) PO PRN (14:36)
[2021-01-11] MEDS: SALIVA SUBSTITUTE(MOUTHKOTE) BTL MT PRN (15:24)
[2021-01-11] MEDS: guaiFENesin DM LIQ 10ML UD PO PRN (15:41)
[2021-01-11] MEDS: LORazepam 2 MG TAB PO PRN (19:00)
[2021-01-11 19:07] VITALS: BP 172/110
[2021-01-11] MEDS: MONTELUKAST 10 MG TAB PO SCH (20:48)
[2021-01-11] MEDS: haloperidoL 5 MG TAB PO SCH (20:51)
[2021-01-11] MEDS: CYCLOBENZAPRINE 10MG TABLET PO SCH (20:51)
[2021-01-11] MEDS: QUEtiapine FUMARATE 100 MG TAB PO SCH (20:52)
[2021-01-11] MEDS: ATORVASTATIN 20 MG TAB PO SCH (20:52)
[2021-01-11] MEDS: traZODone 50 MG TAB PO SCH (20:53)
[2021-01-11] MEDS: **NOTE PATIENT COMMENT** MISC XX SCH (20:57)
[2021-01-11 21:26] VITALS: BP 160/76
[2021-01-12 06:00] VITALS: BP 132/78
[2021-01-12] MEDS: LEVOTHYROXINE 100MCG TABLET (0.1MG) PO SCH (06:17)
[2021-01-12] MEDS: HumaLOG INSULIN (NovoLOG) PER UNIT SC SCH ×4 (07:13→20:46)
[2021-01-12] MEDS: ANALGESIC BALM CRM 3OZ TOP SCH ×3 (08:39→20:34)
[2021-01-12] MEDS: TAMSULOSIN 0.4 MG CAP PO SCH (08:39)
[2021-01-12] MEDS: LIDOCAINE 5% (LIDODERM) PATCH TD SCH (08:39)
[2021-01-12] MEDS: oxyBUTYnin 5 MG TAB PO SCH (08:41)
[2021-01-12] MEDS: OMEGA-3 1000MG CAPSULE PO SCH (08:41)
[2021-01-12] MEDS: BENZTROPINE 1 MG TAB PO SCH ×2 (08:41→20:42)
[2021-01-12] MEDS: VITAMIN D (CHOLECALCIFEROL) 400 INTERNATIONAL UNITS TAB PO SCH (08:41)
[2021-01-12] MEDS: atenoloL 25 MG TAB PO SCH ×2 (08:41→20:42)
[2021-01-12] MEDS: lamoTRIgine 100MG TAB PO SCH (08:41)
[2021-01-12] MEDS: IBUPROFEN 800 MG TAB PO SCH (08:43)
[2021-01-12] MEDS: DOCUSATE SODIUM 100MG CAPSULE PO SCH ×2 (08:43→20:42)
[2021-01-12] MEDS: FLUTICASONE PROP 0.05% NASAL SPRAY 16 GM (FLONASE) NARES SCH (08:44)
[2021-01-12] MEDS: OMEPRAZOLE 20 MG CAP PO SCH (08:44)
[2021-01-12] MEDS: ASPIRIN 81MG ENTERIC TABLET PO SCH (08:44)
[2021-01-12] MEDS: ACETAMINOPHEN TAB 650MG DOSE (2X325MG) PO PRN ×2 (14:54→21:15)
[2021-01-12 18:38] VITALS: BP 197/108
[2021-01-12] MEDS: **NOTE PATIENT COMMENT** MISC XX SCH (20:35)
[2021-01-12] MEDS: CYCLOBENZAPRINE 10MG TABLET PO SCH (20:41)
[2021-01-12] MEDS: ATORVASTATIN 20 MG TAB PO SCH (20:42)
[2021-01-12] MEDS: haloperidoL 5 MG TAB PO SCH (20:42)
[2021-01-12] MEDS: MONTELUKAST 10 MG TAB PO SCH (20:42)
[2021-01-12] MEDS: QUEtiapine FUMARATE 100 MG TAB PO SCH (20:42)
[2021-01-12] MEDS: traZODone 50 MG TAB PO SCH (20:42)
[2021-01-13] MEDS: LEVOTHYROXINE 100MCG TABLET (0.1MG) PO SCH (05:30)
[2021-01-13 06:18] VITALS: BP 142/72
[2021-01-13] MEDS: HumaLOG INSULIN (NovoLOG) PER UNIT SC SCH ×4 (06:52→20:37)
[2021-01-13] MEDS: ANALGESIC BALM CRM 3OZ TOP SCH ×3 (08:25→20:38)
[2021-01-13] MEDS: LIDOCAINE 5% (LIDODERM) PATCH TD SCH (08:25)
[2021-01-13] MEDS: TAMSULOSIN 0.4 MG CAP PO SCH (08:26)
[2021-01-13] MEDS: VITAMIN D (CHOLECALCIFEROL) 400 INTERNATIONAL UNITS TAB PO SCH (08:26)
[2021-01-13] MEDS: lamoTRIgine 100MG TAB PO SCH (08:26)
[2021-01-13] MEDS: FLUTICASONE PROP 0.05% NASAL SPRAY 16 GM (FLONASE) NARES SCH (08:26)
[2021-01-13] MEDS: OMEGA-3 1000MG CAPSULE PO SCH (08:26)
[2021-01-13] MEDS: oxyBUTYnin 5 MG TAB PO SCH (08:26)
[2021-01-13] MEDS: OMEPRAZOLE 20 MG CAP PO SCH (08:26)
[2021-01-13] MEDS: BENZTROPINE 1 MG TAB PO SCH ×2 (08:26→20:38)
[2021-01-13] MEDS: atenoloL 25 MG TAB PO SCH ×2 (08:26→20:39)
[2021-01-13] MEDS: DOCUSATE SODIUM 100MG CAPSULE PO SCH ×2 (08:27→20:39)
[2021-01-13] MEDS: ASPIRIN 81MG ENTERIC TABLET PO SCH (08:27)
[2021-01-13] MEDS: ACETAMINOPHEN TAB 650MG DOSE (2X325MG) PO PRN ×3 (08:30→23:30)
[2021-01-13] MEDS ORDERED: LORazepam 2 MG TAB PO PRN ×2 (12:50)
--- NOTE | 2021-01-13 12:51 | MHIPNPDOC ---
[facility] Progress Note Progress Note DATE OF SERVICE: 01/13/21 HISTORY: Patient a 50 y/o man with a past history of bipolar disorder and numerous admissions since his 's. [place] [facility] [place] living in [facility] since. Was admitted on this occasion due to disorganized and paranoid behavior. Currently remains in contact isolation due to possible exposure previous treatment nursing staff. Interval: Patient has been attending groups, continues to sing in the hallways with not much change from previous days, decreased dose of as needed lorazepam, as patient has been taking routinely and may be contributing to behavioral indiscretion. States he is fine and also group. Continues to be grossly psycho tic, unchanged from previous days, no aggression noted towards staff or reported self-harm, or suicidal thoughts. No acute physical complaints. VITAL SIGNS: See below. NEW TEST RESULTS: none CURRENT MEDICATIONS: See below. MENTAL STATUS EXAMINATION: Patient is a 50-year old male, wearing masks and glasses without redirection, no acute distress, elevated BMI, somewhat improved hygiene Speech: spontaneous, normal rate Language skills are poor. Thought processes including: Remains disorganized, tangential at times. Thought content: Denies Suicidal thoughts, intent or plan. Abstract reasoning, and computation: unable to fully assess. Description of associations: concrete Description of abnormal or psychotic thoughts: Continues to report chronic AH Judgment: poor Insight: poor Orientation: to person, place, time Recent and remote memory: poor Attention span and concentration: Poor, distractible Language: Yakut Fund of knowledge: Below average Mood: "okay" affect: Grossly psychotic, no change from previous days, labile mood at times with elevated hypomanic mood DIAGNOSES: 1. Schizoaffective disorder bipolar type ASSESSMENT: No change, continues to be grossly psychotic, concrete, some hypomania, pending placement. MANAGEMENT PLAN: Continue medications. Has AOT, [place] [facility] [place]. Continue medications. Previously placed order for 6-month retention. Patient is highly sensitive to any medication changes with rapid decompensation. Slowly taper off as needed lorazepam, due to risk of behavioral indiscretion. TIME SPENT: 15 minutes. Vital Signs Vital Signs Date Time Temp Pulse Resp B/P (MAP) Pulse Ox O2 Delivery O2 Flow Rate FiO2 01/13/21 08:26 142/72 01/13/21 08:26 74 01/13/21 06:18 96.6 18 94 Room Air Laboratory Data 24H Labs Laboratory Tests 2 01/12/21 17:16: Bedside Glucose (Misc Panel) 275H 01/12/21 20:39: Bedside Glucose (Misc Panel) 267H 01/13/21 06:14: Bedside Glucose (Misc Panel) 195H 01/13/21 11:50: Bedside Glucose (Misc Panel) 310H Current Medications Current Medications Medications (Trade) Dose Ordered Sig/Kailey Route PRN Reason Start Time Stop Time Status Last Admin Dose Admin Acetaminophen (Tylenol Tab) 650 mg Q6HP PRN PO HEADACHE or MILD DISCOMFORT 12/01/20 16:05 01/13/21 08:30 Acetaminophen (Tylenol Tab) 650 mg Q6HP PRN PO HEADACHE or MILD DISCOMFORT 11/18/20 12:40 11/24/20 01:45 DC 11/23/20 03:09 Al Hydrox/Mg Hydrox/Simethicone (Mylanta) 30 ml Q4HP PRN PO HEARTBURN/INDIGESTION 11/18/20 12:40 11/24/20 01:45 DC 11/23/20 22:34 Amlodipine Besylate (Norvasc) 10 mg DAILY PO 11/19/20 09:00 11/22/20 08:55 DC 11/22/20 08:20 Aspirin (Ecotrin) 81 mg DAILY PO 11/24/20 09:00 01/13/21 08:27 Aspirin (Ecotrin) 81 mg QAM PO 11/22/20 09:00 11/24/20 01:45 DC 11/23/20 07:58 Atenolol (Tenormin) 25 mg BID PO 11/22/20 09:00 11/22/20 12:53 DC 11/22/20 09:51 Atenolol (Tenormin) 25 mg BID PO 11/24/20 09:00 01/13/21 08:26 Atenolol (Tenormin) 50 mg BID PO 11/22/20 21:00 11/24/20 00:13 DC 11/23/20 21:16 Atorvastatin Calcium (Lipitor) 40 mg QHS PO 11/18/20 21:00 11/24/20 01:45 DC 11/23/20 21:16 Atorvastatin Calcium (Lipitor) 40 mg QHS PO 11/24/20 21:00 01/12/21 20:42 Benztropine Mesylate (Cogentin) 1 mg BID PO 11/18/20 09:00 11/24/20 01:45 DC 11/23/20 21:15 Benztropine Mesylate (Cogentin) 1 mg BID PO 11/24/20 09:00 01/13/21 08:26 Cyclobenzaprine HCl (Flexeril) 10 mg QHS PO 11/20/20 21:00 11/24/20 01:45 DC 11/23/20 21:16 Cyclobenzaprine HCl (Flexeril) 10 mg QHS PO 11/24/20 21:00 01/12/21 20:41 Dextrose (Dextrose 50%) 25 ml ASDIRECTED PRN IV SEE LABEL COMMENTS 01/01/21 16:35 Diphenhydramine HCl (Benadryl) 50 mg Q8HP PRN PO AGITATION 11/19/20 09:10 11/24/20 01:45 DC 11/23/20 17:51 Diphenhydramine HCl (Benadryl) 50 mg Q8HP PRN PO AGITATION 11/24/20 10:55 01/10/21 12:34 Diphenhydramine HCl (Benadryl) 50 mg STAT STAT IM 11/26/20 02:41 11/26/20 02:44 DC 11/26/20 02:53 Diphenhydramine HCl (Benadryl) 50 mg STAT STAT PO 11/19/20 06:48 11/19/20 06:50 DC 11/19/20 07:06 Docusate Sodium (Colace) 100 mg BID PO 11/18/20 21:00 11/24/20 01:45 DC 11/23/20 21:15 Docusate Sodium (Colace) 100 mg BID PO 11/24/20 09:00 01/13/21 08:27 Fish Oil ([place]-3 (1000mg)) 1 cap DAILY PO 12/06/20 09:00 01/13/21 08:26 Fluticasone Propionate (Flonase 0.05% Nasal [place]) 2 spray DAILY NARES 11/19/20 09:00 11/24/20 01:45 DC 11/23/20 08:01 Fluticasone Propionate (Flonase 0.05% Nasal [place]) 2 spray DAILY NARES 11/24/20 09:00 01/13/21 08:26 Glucagon (Glucagon) 1 mg ASDIRECTED PRN SC SEE LABEL COMMENTS 01/01/21 16:35 Glucose (Glucose) 16 GM ASDIRECTED PRN PO SEE LABEL COMMENTS 01/01/21 16:35 Guaifenesin/ Dextromethorphan (Robitussin Dm) 10 ml Q4HP PRN PO COUGH 01/01/21 11:40 01/11/21 15:41 Haloperidol (Haldol) 10 mg Q8HP PRN PO AGITATION 11/19/20 09:10 11/24/20 01:45 DC 11/23/20 23:21 Haloperidol (Haldol) 10 mg Q8HP PRN PO AGITATION 11/24/20 10:55 01/10/21 12:34 Haloperidol (Haldol) 10 mg QHS PO 11/19/20 21:00 11/19/20 09:48 DC Haloperidol (Haldol) 10 mg QHS PO 11/19/20 21:00 11/24/20 01:45 DC 11/23/20 21:16 Haloperidol (Haldol) 10 mg QHS PO 11/24/20 21:00 12/11/20 10:47 DC 12/10/20 21:45 Haloperidol (Haldol) 10 mg QHS PO 12/19/20 21:00 01/12/21 20:42 Haloperidol (Haldol) 10 mg STAT STAT IM 11/26/20 02:41 11/26/20 02:44 DC 11/26/20 02:52 Haloperidol (Haldol) 10 mg STAT STAT PO 11/19/20 06:48 11/19/20 06:50 DC 11/19/20 07:06 Haloperidol (Haldol) 15 mg QHS PO 12/11/20 21:00 12/19/20 10:34 DC 12/18/20 20:05 Haloperidol Decanoate (Haldol Decanoate) 100 mg Q28D IM 11/28/20 12:00 12/26/20 12:49 Home Med (Med Rec Complete!) ASDIRECTED XX 11/17/20 23:25 11/17/20 23:24 DC Ibuprofen (Advil) 800 mg Q12H PO 01/08/21 21:00 01/12/21 16:02 DC 01/12/21 08:43 Ibuprofen (Advil) 800 mg Q8H PO 12/11/20 14:00 01/08/21 14:46 DC 01/08/21 13:01 Insulin Human Lispro (HumaLOG INSULIN) SEE PROTOCOL TABLE AC SC 01/01/21 17:30 01/13/21 11:53 Insulin Human Lispro (HumaLOG INSULIN) SEE PROTOCOL TABLE QHS SC 01/01/21 21:00 01/12/21 20:46 Lamotrigine (LaMICtal) 200 mg DAILY PO 11/18/20 09:00 11/24/20 01:45 DC 11/23/20 08:00 Lamotrigine (LaMICtal) 200 mg DAILY PO 11/24/20 09:00 01/13/21 08:26 Levothyroxine Sodium (Synthroid) 100 mcg DAILY@06 PO 11/24/20 06:00 01/13/21 05:30 Levothyroxine Sodium (Synthroid) 100 mcg DAILY@0600 PO 11/19/20 06:00 11/24/20 01:45 DC 11/23/20 05:05 Lidocaine (Lidoderm Patch) 1 patch DAILY TD 01/08/21 09:00 01/13/21 08:25 Lisinopril (Prinivil) 20 mg DAILY PO 01/13/21 09:00 01/13/21 08:26 Lorazepam (Ativan) 2 mg Q8HP PRN PO ANXIETY/AGITATION 12/02/20 12:05 01/11/21 19:00 Lorazepam (Ativan) 2 mg Q8HP PRN PO AGITATION 11/19/20 09:10 11/24/20 01:45 DC 11/23/20 23:21 Lorazepam (Ativan) 2 mg Q8HP PRN PO AGITATION 11/24/20 10:55 12/01/20 10:54 DC 11/30/20 22:04 Lorazepam (Ativan) 2 mg STAT STAT IM 11/26/20 02:41 11/26/20 02:44 DC 11/26/20 02:53 Lorazepam (Ativan) 2 mg STAT STAT PO 11/19/20 06:48 11/19/20 06:50 DC 11/19/20 07:06 Losartan Potassium (Cozaar) 50 mg DAILY PO 11/19/20 09:00 11/22/20 08:55 DC 11/22/20 08:20 Magnesium Hydroxide (Milk Of Magnesia) 30 ml DAILYPRN PRN PO CONSTIPATION 11/18/20 12:40 11/24/20 01:45 DC Magnesium Hydroxide (Milk Of Magnesia) 30 ml DAILYPRN PRN PO CONSTIPATION 11/24/20 10:55 01/08/21 17:19 Menthol/Methyl Salicylate (Bengay Cream) Allow patient to apply t... BID PRN TOP MILD PAIN (PS 1-4) 12/19/20 11:40 01/01/21 12:36 DC 01/01/21 09:02 Menthol/Methyl Salicylate (Bengay Cream) Allow patient to apply t... TID TOP 01/01/21 16:00 01/13/21 08:25 Metformin HCl (Glucophage) 1,000 mg BID@08,18 PO 11/24/20 08:00 01/01/21 16:37 DC 01/01/21 07:34 Metformin HCl (Glucophage) 1,000 mg BID@0800,1800 PO 11/18/20 18:00 11/24/20 01:45 DC 11/23/20 17:34 Miscellaneous (Unresolved Clarification Entry) SEE LABEL COMMENTS DAILY XX 11/30/20 09:00 12/02/20 09:53 DC Miscellaneous (Unresolved Clarification Entry) SEE LABEL COMMENTS DAILY XX 12/02/20 09:00 12/02/20 12:12 DC Miscellaneous (Unresolved Clarification Entry) SEE LABEL COMMENTS DAILY XX 12/13/20 09:00 12/15/20 10:07 DC Miscellaneous (Unresolved Clarification Entry) SEE LABEL COMMENTS DAILY XX 12/30/20 09:00 12/30/20 15:31 DC Miscellaneous (Unresolved Clarification Entry) SEE LABEL COMMENTS DAILY XX 12/30/20 09:00 Cancel Miscellaneous (Unresolved Clarification Entry) SEE LABEL COMMENTS DAILY XX 01/07/21 09:00 01/08/21 07:30 DC Miscellaneous (Unresolved Clarification Entry) SEE LABEL COMMENTS DAILY XX 12/22/20 09:00 12/24/20 14:02 DC Montelukast Sodium (Singulair) 10 mg QHS PO 11/18/20 21:00 11/24/20 01:45 DC 11/23/20 21:15 Montelukast Sodium (Singulair) 10 mg QHS PO 11/24/20 21:00 01/12/21 20:42 Non-Formulary Medication ( See Comment Field Below ) REMOVE LIDODERM PATCH DAILY@ XX 01/06/21 21:00 01/06/21 23:59 DC 01/06/21 21:00 Non-Formulary Medication ( See Comment Field Below ) REMOVE LIDODERM PATCH DAILY@ XX 01/08/21 21:00 01/12/21 20:35 Omeprazole (PriLOSEC) 20 mg DAILY PO 12/11/20 09:00 01/13/21 08:26 Oxybutynin Chloride (Ditropan) 5 mg DAILY PO 11/19/20 09:00 11/24/20 01:45 DC 11/23/20 08:00 Oxybutynin Chloride (Ditropan) 5 mg DAILY PO 11/24/20 09:00 01/13/21 08:26 Propranolol HCl (Inderal) 10 mg BID PO 11/18/20 21:00 11/22/20 08:55 DC 11/22/20 08:20 Quetiapine Fumarate (SEROquel) 200 mg QHS PO 11/19/20 21:00 11/24/20 01:45 DC 11/23/20 21:15 Quetiapine Fumarate (SEROquel) 200 mg QHS PO 11/24/20 21:00 12/04/20 08:57 DC 12/03/20 20:20 Quetiapine Fumarate (SEROquel) 300 mg QHS PO 12/04/20 21:00 01/12/21 20:42 Saliva Substitute (Mouthkote) ASDIRECTED PRN MT DRY MOUTH 01/01/21 12:30 01/11/21 15:24 Tamsulosin HCl (Flomax) 0.8 mg DAILY PO 11/19/20 09:00 11/24/20 01:45 DC 11/23/20 08:01 Tamsulosin HCl (Flomax) 0.8 mg DAILY PO 11/24/20 09:00 01/13/21 08:26 Trazodone HCl (Desyrel) 50 mg QPM PO 01/06/21 21:00 01/12/21 20:42 Trazodone HCl (Desyrel) 100 mg QPM PO 11/18/20 21:00 11/24/20 01:45 DC 11/23/20 21:16 Trazodone HCl (Desyrel) 100 mg QPM PO 11/24/20 21:00 01/06/21 10:12 DC 01/05/21 20:36 Vitamin D (Vitamin D) 400 units DAILY PO 11/19/20 09:00 11/24/20 01:45 DC 11/23/20 08:00 Vitamin D (Vitamin D) 400 units DAILY PO 11/24/20 09:00 01/13/21 08:26 Allergies Coded Allergies: Penicillins (Verified Allergy, Intermediate, rash, 01/02/19) latex (Verified Allergy, Intermediate, rash, 12/13/19) divalproex sodium (Verified Allergy, Unknown, 01/02/19) AYESHA MOLINA MD Jan 13, 2021 12:51
[2021-01-13 13:53] VITALS: BP 168/102
--- NOTE | 2021-01-13 14:02 | IPNPDOC ---
Text Note Date of Service The patient was seen on 01/13/21. NOTE Bp uncontrolled. Started on lisinopril 20 mg on 01/12/21. Will add hydralazine 25 q 8 hours wit hold parameters. Sugars seems to be getting uncontrolled also. Last A1c on 01/01 was 6.9. Ordered glimepiride 2 mg bid. VS,Fishbone, I+O VS, Fishbone, I+O Vital Signs Date Time Temp Pulse Resp B/P (MAP) Pulse Ox O2 Delivery O2 Flow Rate FiO2 01/13/21 13:53 97.9 90 20 168/102 (124) 96 01/13/21 06:18 Room Air Loni Renner MD Jan 13, 2021 14:02
[2021-01-13] MEDS: **hydrALAZINE HCL** 25 MG TAB PO SCH ×2 (15:24→22:14)
[2021-01-13 15:42] VITALS: BP 160/100
[2021-01-13] MEDS: GLIMEPIRIDE 2 MG TAB PO SCH (17:09)
[2021-01-13 19:12] VITALS: BP 179/96
[2021-01-13] MEDS: diphenhydrAMINE 50MG CAP PO PRN (20:38)
[2021-01-13] MEDS: haloperidoL 5 MG TAB PO SCH (20:38)
[2021-01-13] MEDS: CYCLOBENZAPRINE 10MG TABLET PO SCH (20:38)
[2021-01-13] MEDS: MONTELUKAST 10 MG TAB PO SCH (20:38)
[2021-01-13] MEDS: QUEtiapine FUMARATE 100 MG TAB PO SCH (20:38)
[2021-01-13] MEDS: LORazepam 1 MG TAB PO PRN (20:39)
[2021-01-13] MEDS: ATORVASTATIN 20 MG TAB PO SCH (20:39)
[2021-01-13] MEDS: traZODone 50 MG TAB PO SCH (20:39)
[2021-01-13] MEDS: **NOTE PATIENT COMMENT** MISC XX SCH (22:13)
[2021-01-14] MEDS: **hydrALAZINE HCL** 25 MG TAB PO SCH ×3 (05:42→21:53)
[2021-01-14 05:47] VITALS: BP 142/84
[2021-01-14] MEDS: LEVOTHYROXINE 100MCG TABLET (0.1MG) PO SCH (06:39)
[2021-01-14] MEDS: GLIMEPIRIDE 2 MG TAB PO SCH ×2 (06:39→17:10)
[2021-01-14] MEDS: HumaLOG INSULIN (NovoLOG) PER UNIT SC SCH ×4 (06:45→21:00)
[2021-01-14] MEDS: VITAMIN D (CHOLECALCIFEROL) 400 INTERNATIONAL UNITS TAB PO SCH (08:28)
[2021-01-14] MEDS: FLUTICASONE PROP 0.05% NASAL SPRAY 16 GM (FLONASE) NARES SCH (08:28)
[2021-01-14] MEDS: OMEGA-3 1000MG CAPSULE PO SCH (08:28)
[2021-01-14] MEDS: oxyBUTYnin 5 MG TAB PO SCH (08:28)
[2021-01-14] MEDS: ANALGESIC BALM CRM 3OZ TOP SCH ×3 (08:29→21:00)
[2021-01-14] MEDS: OMEPRAZOLE 20 MG CAP PO SCH (08:30)
[2021-01-14] MEDS: TAMSULOSIN 0.4 MG CAP PO SCH (08:30)
[2021-01-14] MEDS: ASPIRIN 81MG ENTERIC TABLET PO SCH (08:30)
[2021-01-14] MEDS: DOCUSATE SODIUM 100MG CAPSULE PO SCH ×2 (08:30→21:47)
[2021-01-14] MEDS: LIDOCAINE 5% (LIDODERM) PATCH TD SCH (08:30)
[2021-01-14] MEDS: BENZTROPINE 1 MG TAB PO SCH ×2 (08:30→21:47)
[2021-01-14] MEDS: lamoTRIgine 100MG TAB PO SCH (08:31)
[2021-01-14] MEDS: atenoloL 25 MG TAB PO SCH ×2 (08:31→21:52)
[2021-01-14] MEDS: ACETAMINOPHEN TAB 650MG DOSE (2X325MG) PO PRN ×2 (11:35→22:23)
--- NOTE | 2021-01-14 14:45 | MHIPNPDOC ---
[facility] Progress Note Progress Note DATE OF SERVICE: 01/14/21 HISTORY: Patient a 50 y/o man with a past history of bipolar disorder and numerous admissions since his 20's. Was d/c from [facility] [place] Jan 2010 and living in [facility] since. Was admitted on this occasion due to disorganized and paranoid behavior. Currently remains in contact isolation due to possible exposure previous treatment nursing staff. Interval: Patient has been attending groups, ordered valbenazine 80 mg homemed for tardive dyskinesia as he reports movements tongue and mouth although hard to elicit on testing. Pending court hearing tomorrow for retention. States mood is even, no aggression, continues to be internally preoccupied and disorganized at times singing in the hallway as per usual, no change. VITAL SIGNS: See below. NEW TEST RESULTS: CURRENT MEDICATIONS: See below. MENTAL STATUS EXAMINATION: Patient is a 50-year old male, wearing masks and glasses without redirection, no acute distress, elevated BMI, somewhat improved hygiene Speech: spontaneous, normal rate Language skills are poor. Thought processes including: Remains disorganized, tangential at times. Thought content: Denies Suicidal thoughts, intent or plan. Abstract reasoning, and computation: unable to fully assess. Description of associations: concrete Description of abnormal or psychotic thoughts: Continues to report chronic AH Judgment: poor Insight: poor Orientation: to person, place, time Recent and remote memory: poor Attention span and concentration: Poor, distractible Language: Wallisian Fund of knowledge: Below average Mood: "not bad" affect: no change, Grossly psychotic, concrete, with elevated hypomanic mood DIAGNOSES: 1. Schizoaffective disorder bipolar type ASSESSMENT: No change, continues to be grossly psychotic, concrete, some hypomania, pending placement. MANAGEMENT PLAN: Continue medications. Has AOT, pending [facility] [place] placement, court hearing scheduled for tomorrow for retention, patient aware. Continue medications, ordered home valbenazine for tardive dyskinesia. Patient is highly sensitive to any medication changes with rapid decompensation. Per medicine team due to elevated blood pressure yesterday was started on a regimen of hydralazine, lisinopril, glimepiride for elevated A1c of 6.9 TIME SPENT: 15 minutes. Vital Signs Vital Signs Date Time Temp Pulse Resp B/P (MAP) Pulse Ox O2 Delivery O2 Flow Rate FiO2 01/14/21 13:12 162/100 01/14/21 08:31 77 01/14/21 05:47 96.7 18 95 Room Air Laboratory Data 24H Labs Laboratory Tests 2 01/13/21 17:04: Bedside Glucose (Misc Panel) 274H 01/13/21 20:36: Bedside Glucose (Misc Panel) 207H 01/14/21 06:43: Bedside Glucose (Misc Panel) 200H 01/14/21 08:39: TO-Qih-M-Type Natriuretic Peptide 22 01/14/21 11:33: Bedside Glucose (Misc Panel) 260H Current Medications Current Medications Medications (Trade) Dose Ordered Sig/Kailey Route PRN Reason Start Time Stop Time Status Last Admin Dose Admin Acetaminophen (Tylenol Tab) 650 mg Q6HP PRN PO HEADACHE or MILD DISCOMFORT 12/01/20 16:05 01/14/21 11:35 Acetaminophen (Tylenol Tab) 650 mg Q6HP PRN PO HEADACHE or MILD DISCOMFORT 11/18/20 12:40 11/24/20 01:45 DC 11/23/20 03:09 Al Hydrox/Mg Hydrox/Simethicone (Mylanta) 30 ml Q4HP PRN PO HEARTBURN/INDIGESTION 11/18/20 12:40 11/24/20 01:45 DC 11/23/20 22:34 Amlodipine Besylate (Norvasc) 10 mg DAILY PO 11/19/20 09:00 11/22/20 08:55 DC 11/22/20 08:20 Aspirin (Ecotrin) 81 mg DAILY PO 11/24/20 09:00 01/14/21 08:30 Aspirin (Ecotrin) 81 mg QAM PO 11/22/20 09:00 11/24/20 01:45 DC 11/23/20 07:58 Atenolol (Tenormin) 25 mg BID PO 11/22/20 09:00 11/22/20 12:53 DC 11/22/20 09:51 Atenolol (Tenormin) 25 mg BID PO 11/24/20 09:00 01/14/21 08:31 Atenolol (Tenormin) 50 mg BID PO 11/22/20 21:00 11/24/20 00:13 DC 11/23/20 21:16 Atorvastatin Calcium (Lipitor) 40 mg QHS PO 11/18/20 21:00 11/24/20 01:45 DC 11/23/20 21:16 Atorvastatin Calcium (Lipitor) 40 mg QHS PO 11/24/20 21:00 01/13/21 20:39 Benztropine Mesylate (Cogentin) 1 mg BID PO 11/18/20 09:00 11/24/20 01:45 DC 11/23/20 21:15 Benztropine Mesylate (Cogentin) 1 mg BID PO 11/24/20 09:00 01/14/21 08:30 Cyclobenzaprine HCl (Flexeril) 10 mg QHS PO 11/20/20 21:00 11/24/20 01:45 DC 11/23/20 21:16 Cyclobenzaprine HCl (Flexeril) 10 mg QHS PO 11/24/20 21:00 01/13/21 20:38 Dextrose (Dextrose 50%) 25 ml ASDIRECTED PRN IV SEE LABEL COMMENTS 01/01/21 16:35 Diphenhydramine HCl (Benadryl) 50 mg Q8HP PRN PO AGITATION 11/19/20 09:10 11/24/20 01:45 DC 11/23/20 17:51 Diphenhydramine HCl (Benadryl) 50 mg Q8HP PRN PO AGITATION 11/24/20 10:55 01/13/21 20:38 Diphenhydramine HCl (Benadryl) 50 mg STAT STAT IM 11/26/20 02:41 11/26/20 02:44 DC 11/26/20 02:53 Diphenhydramine HCl (Benadryl) 50 mg STAT STAT PO 11/19/20 06:48 11/19/20 06:50 DC 11/19/20 07:06 Docusate Sodium (Colace) 100 mg BID PO 11/18/20 21:00 11/24/20 01:45 DC 11/23/20 21:15 Docusate Sodium (Colace) 100 mg BID PO 11/24/20 09:00 01/14/21 08:30 Fish Oil ([place]-3 (1000mg)) 1 cap DAILY PO 12/06/20 09:00 01/14/21 08:28 Fluticasone Propionate (Flonase 0.05% Nasal [place]) 2 spray DAILY NARES 11/19/20 09:00 11/24/20 01:45 DC 11/23/20 08:01 Fluticasone Propionate (Flonase 0.05% Nasal [place]) 2 spray DAILY NARES 11/24/20 09:00 01/14/21 08:28 Glimepiride (Amaryl) 2 mg BID@5030,3610 PO 01/13/21 17:30 01/14/21 06:39 Glucagon (Glucagon) 1 mg ASDIRECTED PRN SC SEE LABEL COMMENTS 01/01/21 16:35 Glucose (Glucose) 16 GM ASDIRECTED PRN PO SEE LABEL COMMENTS 01/01/21 16:35 Guaifenesin/ Dextromethorphan (Robitussin Dm) 10 ml Q4HP PRN PO COUGH 01/01/21 11:40 01/11/21 15:41 Haloperidol (Haldol) 10 mg Q8HP PRN PO AGITATION 11/19/20 09:10 11/24/20 01:45 DC 11/23/20 23:21 Haloperidol (Haldol) 10 mg Q8HP PRN PO AGITATION 11/24/20 10:55 01/10/21 12:34 Haloperidol (Haldol) 10 mg QHS PO 11/19/20 21:00 11/19/20 09:48 DC Haloperidol (Haldol) 10 mg QHS PO 11/19/20 21:00 11/24/20 01:45 DC 11/23/20 21:16 Haloperidol (Haldol) 10 mg QHS PO 11/24/20 21:00 12/11/20 10:47 DC 12/10/20 21:45 Haloperidol (Haldol) 10 mg QHS PO 12/19/20 21:00 01/13/21 20:38 Haloperidol (Haldol) 10 mg STAT STAT IM 11/26/20 02:41 11/26/20 02:44 DC 11/26/20 02:52 Haloperidol (Haldol) 10 mg STAT STAT PO 11/19/20 06:48 11/19/20 06:50 DC 11/19/20 07:06 Haloperidol (Haldol) 15 mg QHS PO 12/11/20 21:00 12/19/20 10:34 DC 12/18/20 20:05 Haloperidol Decanoate (Haldol Decanoate) 100 mg Q28D IM 11/28/20 12:00 12/26/20 12:49 Home Med (Med Rec Complete!) ASDIRECTED XX 11/17/20 23:25 11/17/20 23:24 DC Hydralazine HCl (Apresoline) 25 mg Q8H PO 01/13/21 14:00 01/14/21 13:12 Ibuprofen (Advil) 800 mg Q12H PO 01/08/21 21:00 01/12/21 16:02 DC 01/12/21 08:43 Ibuprofen (Advil) 800 mg Q8H PO 12/11/20 14:00 01/08/21 14:46 DC 01/08/21 13:01 Insulin Human Lispro (HumaLOG INSULIN) SEE PROTOCOL TABLE AC SC 01/01/21 17:30 01/14/21 12:01 Insulin Human Lispro (HumaLOG INSULIN) SEE PROTOCOL TABLE QHS SC 01/01/21 21:00 01/12/21 20:46 Lamotrigine (LaMICtal) 200 mg DAILY PO 11/18/20 09:00 11/24/20 01:45 DC 11/23/20 08:00 Lamotrigine (LaMICtal) 200 mg DAILY PO 11/24/20 09:00 01/14/21 08:31 Levothyroxine Sodium (Synthroid) 100 mcg DAILY@06 PO 11/24/20 06:00 01/14/21 06:39 Levothyroxine Sodium (Synthroid) 100 mcg DAILY@0600 PO 11/19/20 06:00 11/24/20 01:45 DC 11/23/20 05:05 Lidocaine (Lidoderm Patch) 1 patch DAILY TD 01/08/21 09:00 01/14/21 08:30 Lisinopril (Prinivil) 20 mg DAILY PO 01/13/21 09:00 01/14/21 08:30 Lorazepam (Ativan) 1 mg Q12HP PRN PO ANXIETY/AGITATION 01/13/21 12:50 01/13/21 12:52 DC Lorazepam (Ativan) 1 mg Q12HP PRN PO ANXIETY/AGITATION 01/13/21 12:52 01/13/21 20:39 Lorazepam (Ativan) 1 mg Q8HP PRN PO ANXIETY/AGITATION 01/13/21 12:50 01/13/21 12:51 DC Lorazepam (Ativan) 2 mg Q8HP PRN PO ANXIETY/AGITATION 12/02/20 12:05 01/13/21 12:47 DC 01/11/21 19:00 Lorazepam (Ativan) 2 mg Q8HP PRN PO AGITATION 11/19/20 09:10 11/24/20 01:45 DC 11/23/20 23:21 Lorazepam (Ativan) 2 mg Q8HP PRN PO AGITATION 11/24/20 10:55 12/01/20 10:54 DC 11/30/20 22:04 Lorazepam (Ativan) 2 mg STAT STAT IM 11/26/20 02:41 11/26/20 02:44 DC 11/26/20 02:53 Lorazepam (Ativan) 2 mg STAT STAT PO 11/19/20 06:48 11/19/20 06:50 DC 11/19/20 07:06 Losartan Potassium (Cozaar) 50 mg DAILY PO 11/19/20 09:00 11/22/20 08:55 DC 11/22/20 08:20 Magnesium Hydroxide (Milk Of Magnesia) 30 ml DAILYPRN PRN PO CONSTIPATION 11/18/20 12:40 11/24/20 01:45 DC Magnesium Hydroxide (Milk Of Magnesia) 30 ml DAILYPRN PRN PO CONSTIPATION 11/24/20 10:55 01/08/21 17:19 Menthol/Methyl Salicylate (Bengay Cream) Allow patient to apply t... BID PRN TOP MILD PAIN (PS 1-4) 12/19/20 11:40 01/01/21 12:36 DC 01/01/21 09:02 Menthol/Methyl Salicylate (Bengay Cream) Allow patient to apply t... TID TOP 01/01/21 16:00 01/14/21 08:29 Metformin HCl (Glucophage) 1,000 mg BID@08,18 PO 11/24/20 08:00 01/01/21 16:37 DC 01/01/21 07:34 Metformin HCl (Glucophage) 1,000 mg BID@0800,1800 PO 11/18/20 18:00 11/24/20 01:45 DC 11/23/20 17:34 Miscellaneous (Unresolved Clarification Entry) SEE LABEL COMMENTS DAILY XX 11/30/20 09:00 12/02/20 09:53 DC Miscellaneous (Unresolved Clarification Entry) SEE LABEL COMMENTS DAILY XX 12/02/20 09:00 12/02/20 12:12 DC Miscellaneous (Unresolved Clarification Entry) SEE LABEL COMMENTS DAILY XX 12/13/20 09:00 12/15/20 10:07 DC Miscellaneous (Unresolved Clarification Entry) SEE LABEL COMMENTS DAILY XX 12/30/20 09:00 12/30/20 15:31 DC Miscellaneous (Unresolved Clarification Entry) SEE LABEL COMMENTS DAILY XX 12/30/20 09:00 Cancel Miscellaneous (Unresolved Clarification Entry) SEE LABEL COMMENTS DAILY XX 01/07/21 09:00 01/08/21 07:30 DC Miscellaneous (Unresolved Clarification Entry) SEE LABEL COMMENTS DAILY XX 12/22/20 09:00 12/24/20 14:02 DC Miscellaneous (Unresolved Patient Own Med Order) SEE LABEL COMMENTS UNRESOLVED XX 01/15/21 00:01 Montelukast Sodium (Singulair) 10 mg QHS PO 11/18/20 21:00 11/24/20 01:45 DC 11/23/20 21:15 Montelukast Sodium (Singulair) 10 mg QHS PO 11/24/20 21:00 01/13/21 20:38 Non-Formulary Medication ( See Comment Field Below ) REMOVE LIDODERM PATCH DAILY@ XX 01/06/21 21:00 01/06/21 23:59 DC 01/06/21 21:00 Non-Formulary Medication ( See Comment Field Below ) REMOVE LIDODERM PATCH DAILY@ XX 01/08/21 21:00 01/13/21 22:13 Omeprazole (PriLOSEC) 20 mg DAILY PO 12/11/20 09:00 01/14/21 08:30 Oxybutynin Chloride (Ditropan) 5 mg DAILY PO 11/19/20 09:00 11/24/20 01:45 DC 11/23/20 08:00 Oxybutynin Chloride (Ditropan) 5 mg DAILY PO 11/24/20 09:00 01/14/21 08:28 Patient Own Medication (Patient'S Own Med) valbenazine (ingrezza)80MG CAP TAKE... DAILY PO 01/15/21 09:00 UNV Propranolol HCl (Inderal) 10 mg BID PO 11/18/20 21:00 11/22/20 08:55 DC 11/22/20 08:20 Quetiapine Fumarate (SEROquel) 200 mg QHS PO 11/19/20 21:00 11/24/20 01:45 DC 11/23/20 21:15 Quetiapine Fumarate (SEROquel) 200 mg QHS PO 11/24/20 21:00 12/04/20 08:57 DC 12/03/20 20:20 Quetiapine Fumarate (SEROquel) 300 mg QHS PO 12/04/20 21:00 01/13/21 20:38 Saliva Substitute (Mouthkote) ASDIRECTED PRN MT DRY MOUTH 01/01/21 12:30 01/11/21 15:24 Tamsulosin HCl (Flomax) 0.8 mg DAILY PO 11/19/20 09:00 11/24/20 01:45 DC 11/23/20 08:01 Tamsulosin HCl (Flomax) 0.8 mg DAILY PO 11/24/20 09:00 01/14/21 08:30 Trazodone HCl (Desyrel) 50 mg QPM PO 01/06/21 21:00 01/13/21 20:39 Trazodone HCl (Desyrel) 100 mg QPM PO 11/18/20 21:00 11/24/20 01:45 DC 11/23/20 21:16 Trazodone HCl (Desyrel) 100 mg QPM PO 11/24/20 21:00 01/06/21 10:12 DC 01/05/21 20:36 Vitamin D (Vitamin D) 400 units DAILY PO 11/19/20 09:00 11/24/20 01:45 DC 11/23/20 08:00 Vitamin D (Vitamin D) 400 units DAILY PO 11/24/20 09:00 01/14/21 08:28 Allergies Coded Allergies: Penicillins (Verified Allergy, Intermediate, rash, 01/02/19) latex (Verified Allergy, Intermediate, rash, 12/13/19) divalproex sodium (Verified Allergy, Unknown, 01/02/19) AYESHA MOLINA MD Jan 14, 2021 14:45
[2021-01-14 16:12] VITALS: BP 146/80
[2021-01-14] MEDS: CYCLOBENZAPRINE 10MG TABLET PO SCH (21:46)
[2021-01-14] MEDS: haloperidoL 5 MG TAB PO SCH (21:46)
[2021-01-14] MEDS: QUEtiapine FUMARATE 100 MG TAB PO SCH (21:47)
[2021-01-14] MEDS: MONTELUKAST 10 MG TAB PO SCH (21:47)
[2021-01-14] MEDS: ATORVASTATIN 20 MG TAB PO SCH (21:47)
[2021-01-14] MEDS: traZODone 50 MG TAB PO SCH (21:47)
[2021-01-14] MEDS: **NOTE PATIENT COMMENT** MISC XX SCH (21:52)
[2021-01-15] MEDS: UNRESOLVED PATIENT OWN MED ORDER XX SCH (00:01)
[2021-01-15] MEDS: **hydrALAZINE HCL** 25 MG TAB PO SCH ×3 (06:00→21:14)
[2021-01-15] MEDS: LEVOTHYROXINE 100MCG TABLET (0.1MG) PO SCH (06:18)
[2021-01-15] MEDS: GLIMEPIRIDE 2 MG TAB PO SCH ×2 (06:36→16:46)
[2021-01-15] MEDS: HumaLOG INSULIN (NovoLOG) PER UNIT SC SCH ×4 (06:37→21:00)
[2021-01-15 06:44] VITALS: BP 128/96
[2021-01-15] MEDS: FLUTICASONE PROP 0.05% NASAL SPRAY 16 GM (FLONASE) NARES SCH (08:35)
[2021-01-15] MEDS: DOCUSATE SODIUM 100MG CAPSULE PO SCH ×2 (08:36→21:10)
[2021-01-15] MEDS: OMEPRAZOLE 20 MG CAP PO SCH (08:36)
[2021-01-15] MEDS: BENZTROPINE 1 MG TAB PO SCH ×2 (08:36→21:14)
[2021-01-15] MEDS: ANALGESIC BALM CRM 3OZ TOP SCH ×3 (08:36→21:15)
[2021-01-15] MEDS: VITAMIN D (CHOLECALCIFEROL) 400 INTERNATIONAL UNITS TAB PO SCH (08:36)
[2021-01-15] MEDS: lamoTRIgine 100MG TAB PO SCH (08:37)
[2021-01-15] MEDS: TAMSULOSIN 0.4 MG CAP PO SCH (08:37)
[2021-01-15] MEDS: ASPIRIN 81MG ENTERIC TABLET PO SCH (08:37)
[2021-01-15] MEDS: oxyBUTYnin 5 MG TAB PO SCH (08:38)
[2021-01-15] MEDS: OMEGA-3 1000MG CAPSULE PO SCH (08:38)
[2021-01-15] MEDS: LIDOCAINE 5% (LIDODERM) PATCH TD SCH ×2 (08:38→11:22)
[2021-01-15] MEDS: atenoloL 25 MG TAB PO SCH ×2 (08:38→21:13)
[2021-01-15] MEDS: ACETAMINOPHEN TAB 650MG DOSE (2X325MG) PO PRN ×2 (08:47→18:34)
[2021-01-15] MEDS ORDERED: VALBENAZINE 80 MG PO SCH (09:00)
--- NOTE | 2021-01-15 10:23 | MHIPNPDOC ---
[facility] Progress Note Progress Note DATE OF SERVICE: 01/15/21 HISTORY: Patient a 50 y/o man with a past history of bipolar disorder and numerous admissions since his 20's. [place] [facility] and living in [facility] since. Was admitted on this occasion due to disorganized and paranoid behavior. Currently remains in contact isolation due to possible exposure previous treatment nursing staff. Interval: No significant changes, does report pain bilaterally in his lower back hip areas and requesting another lidocaine patch. States he has been trying not to take ibuprofen for pain. Continues to be attending groups, previously ordered valbenazine 80 mg home med for tardive dyskinesia as he reports movemen ts tongue and mouth although hard to elicit on testing. Pending court hearing today for retention. Was seen on the phone seeing his song, continues to be acutely pleasantly disorganized. VITAL SIGNS: See below. NEW TEST RESULTS: CURRENT MEDICATIONS: See below. MENTAL STATUS EXAMINATION: Patient is a 50-year old male, wearing masks and glasses without redirection, no acute distress, elevated BMI, somewhat improved hygiene Speech: spontaneous, normal rate Language skills are poor. Thought processes including: Remains disorganized, tangential at times. Thought content: Denies Suicidal thoughts, intent or plan. Abstract reasoning, and computation: unable to fully assess. Description of associations: concrete Description of abnormal or psychotic thoughts: Continues to report chronic AH Judgment: poor Insight: poor Orientation: to person, place, time Recent and remote memory: poor Attention span and concentration: Poor, distractible Language: Khmer Fund of knowledge: Below average Mood: "not bad" affect: no change, Grossly psychotic, concrete, with elevated hypomanic mood DIAGNOSES: 1. Schizoaffective disorder bipolar type 2. Hypertension started on a regimen of hydralazine, lisinopril, 3. Diabetes, glimepiride for elevated A1c of 6.9 4. Back pain, lidocaine patch ASSESSMENT: Continues to be pleasantly disorganized, pending placement. MANAGEMENT PLAN: Continue medications. Put an order for lidocaine patch and reviewed if he had any medical complaints, reports that he has not been taking ibuprofen for knee pain try to reduce medication intake but that the medication does help him when he takes it. Has AOT, [place] [facility], court hearing scheduled for today for retention, patient aware. Continue medications, ordered home valbenazine for tardive dyskinesia. Patient is highly sensitive to any medication changes with rapid decompensation. Per medicine team due to elevated blood pressure yesterday was TIME SPENT: 25 minutes. Vital Signs Vital Signs Date Time Temp Pulse Resp B/P (MAP) Pulse Ox O2 Delivery O2 Flow Rate FiO2 01/15/21 08:38 94 134/89 01/15/21 06:44 97.6 18 96 Room Air Laboratory Data 24H Labs Laboratory Tests 2 01/14/21 11:33: Bedside Glucose (Misc Panel) 260H 01/14/21 17:05: Bedside Glucose (Misc Panel) 179H 01/14/21 21:50: Bedside Glucose (Misc Panel) 209H 01/15/21 06:31: Bedside Glucose (Misc Panel) 153H Current Medications Current Medications Medications (Trade) Dose Ordered Sig/Kailey Route PRN Reason Start Time Stop Time Status Last Admin Dose Admin Acetaminophen (Tylenol Tab) 650 mg Q6HP PRN PO HEADACHE or MILD DISCOMFORT 12/01/20 16:05 01/15/21 08:47 Acetaminophen (Tylenol Tab) 650 mg Q6HP PRN PO HEADACHE or MILD DISCOMFORT 11/18/20 12:40 11/24/20 01:45 DC 11/23/20 03:09 Al Hydrox/Mg Hydrox/Simethicone (Mylanta) 30 ml Q4HP PRN PO HEARTBURN/INDIGESTION 11/18/20 12:40 11/24/20 01:45 DC 11/23/20 22:34 Amlodipine Besylate (Norvasc) 10 mg DAILY PO 11/19/20 09:00 11/22/20 08:55 DC 11/22/20 08:20 Aspirin (Ecotrin) 81 mg DAILY PO 11/24/20 09:00 01/15/21 08:37 Aspirin (Ecotrin) 81 mg QAM PO 11/22/20 09:00 11/24/20 01:45 DC 11/23/20 07:58 Atenolol (Tenormin) 25 mg BID PO 11/22/20 09:00 11/22/20 12:53 DC 11/22/20 09:51 Atenolol (Tenormin) 25 mg BID PO 11/24/20 09:00 01/15/21 08:38 Atenolol (Tenormin) 50 mg BID PO 11/22/20 21:00 11/24/20 00:13 DC 11/23/20 21:16 Atorvastatin Calcium (Lipitor) 40 mg QHS PO 11/18/20 21:00 11/24/20 01:45 DC 11/23/20 21:16 Atorvastatin Calcium (Lipitor) 40 mg QHS PO 11/24/20 21:00 01/14/21 21:47 Benztropine Mesylate (Cogentin) 1 mg BID PO 11/18/20 09:00 11/24/20 01:45 DC 11/23/20 21:15 Benztropine Mesylate (Cogentin) 1 mg BID PO 11/24/20 09:00 01/15/21 08:36 Cyclobenzaprine HCl (Flexeril) 10 mg QHS PO 11/20/20 21:00 11/24/20 01:45 DC 11/23/20 21:16 Cyclobenzaprine HCl (Flexeril) 10 mg QHS PO 11/24/20 21:00 01/14/21 21:46 Dextrose (Dextrose 50%) 25 ml ASDIRECTED PRN IV SEE LABEL COMMENTS 01/01/21 16:35 Diphenhydramine HCl (Benadryl) 50 mg Q8HP PRN PO AGITATION 11/19/20 09:10 11/24/20 01:45 DC 11/23/20 17:51 Diphenhydramine HCl (Benadryl) 50 mg Q8HP PRN PO AGITATION 11/24/20 10:55 01/13/21 20:38 Diphenhydramine HCl (Benadryl) 50 mg STAT STAT IM 11/26/20 02:41 11/26/20 02:44 DC 11/26/20 02:53 Diphenhydramine HCl (Benadryl) 50 mg STAT STAT PO 11/19/20 06:48 11/19/20 06:50 DC 11/19/20 07:06 Docusate Sodium (Colace) 100 mg BID PO 11/18/20 21:00 11/24/20 01:45 DC 11/23/20 21:15 Docusate Sodium (Colace) 100 mg BID PO 11/24/20 09:00 01/15/21 08:36 Fish Oil ([place]-3 (1000mg)) 1 cap DAILY PO 12/06/20 09:00 01/15/21 08:38 Fluticasone Propionate (Flonase 0.05% Nasal [place]) 2 spray DAILY NARES 11/19/20 09:00 11/24/20 01:45 DC 11/23/20 08:01 Fluticasone Propionate (Flonase 0.05% Nasal [place]) 2 spray DAILY NARES 11/24/20 09:00 01/15/21 08:35 Glimepiride (Amaryl) 2 mg BID@0730,1810 PO 01/13/21 17:30 01/15/21 06:36 Glucagon (Glucagon) 1 mg ASDIRECTED PRN SC SEE LABEL COMMENTS 01/01/21 16:35 Glucose (Glucose) 16 GM ASDIRECTED PRN PO SEE LABEL COMMENTS 01/01/21 16:35 Guaifenesin/ Dextromethorphan (Robitussin Dm) 10 ml Q4HP PRN PO COUGH 01/01/21 11:40 01/11/21 15:41 Haloperidol (Haldol) 10 mg Q8HP PRN PO AGITATION 11/19/20 09:10 11/24/20 01:45 DC 11/23/20 23:21 Haloperidol (Haldol) 10 mg Q8HP PRN PO AGITATION 11/24/20 10:55 01/10/21 12:34 Haloperidol (Haldol) 10 mg QHS PO 11/19/20 21:00 11/19/20 09:48 DC Haloperidol (Haldol) 10 mg QHS PO 11/19/20 21:00 11/24/20 01:45 DC 11/23/20 21:16 Haloperidol (Haldol) 10 mg QHS PO 11/24/20 21:00 12/11/20 10:47 DC 12/10/20 21:45 Haloperidol (Haldol) 10 mg QHS PO 12/19/20 21:00 01/14/21 21:46 Haloperidol (Haldol) 10 mg STAT STAT IM 11/26/20 02:41 11/26/20 02:44 DC 11/26/20 02:52 Haloperidol (Haldol) 10 mg STAT STAT PO 11/19/20 06:48 11/19/20 06:50 DC 11/19/20 07:06 Haloperidol (Haldol) 15 mg QHS PO 12/11/20 21:00 12/19/20 10:34 DC 12/18/20 20:05 Haloperidol Decanoate (Haldol Decanoate) 100 mg Q28D IM 11/28/20 12:00 12/26/20 12:49 Home Med (Med Rec Complete!) ASDIRECTED XX 11/17/20 23:25 11/17/20 23:24 DC Hydralazine HCl (Apresoline) 25 mg Q8H PO 01/13/21 14:00 01/14/21 13:12 Ibuprofen (Advil) 800 mg Q12H PO 01/08/21 21:00 01/12/21 16:02 DC 01/12/21 08:43 Ibuprofen (Advil) 800 mg Q8H PO 12/11/20 14:00 01/08/21 14:46 DC 01/08/21 13:01 Insulin Human Lispro (HumaLOG INSULIN) SEE PROTOCOL TABLE AC SC 01/01/21 17:30 01/15/21 06:37 Insulin Human Lispro (HumaLOG INSULIN) SEE PROTOCOL TABLE QHS SC 01/01/21 21:00 01/12/21 20:46 Lamotrigine (LaMICtal) 200 mg DAILY PO 11/18/20 09:00 11/24/20 01:45 DC 11/23/20 08:00 Lamotrigine (LaMICtal) 200 mg DAILY PO 11/24/20 09:00 01/15/21 08:37 Levothyroxine Sodium (Synthroid) 100 mcg DAILY@06 PO 11/24/20 06:00 01/15/21 06:18 Levothyroxine Sodium (Synthroid) 100 mcg DAILY@0600 PO 11/19/20 06:00 11/24/20 01:45 DC 11/23/20 05:05 Lidocaine (Lidoderm Patch) 1 patch DAILY TD 01/08/21 09:00 01/15/21 08:38 Lisinopril (Prinivil) 20 mg DAILY PO 01/13/21 09:00 01/15/21 08:36 Lorazepam (Ativan) 1 mg Q12HP PRN PO ANXIETY/AGITATION 01/13/21 12:50 01/13/21 12:52 DC Lorazepam (Ativan) 1 mg Q12HP PRN PO ANXIETY/AGITATION 01/13/21 12:52 01/13/21 20:39 Lorazepam (Ativan) 1 mg Q8HP PRN PO ANXIETY/AGITATION 01/13/21 12:50 01/13/21 12:51 DC Lorazepam (Ativan) 2 mg Q8HP PRN PO ANXIETY/AGITATION 12/02/20 12:05 01/13/21 12:47 DC 01/11/21 19:00 Lorazepam (Ativan) 2 mg Q8HP PRN PO AGITATION 11/19/20 09:10 11/24/20 01:45 DC 11/23/20 23:21 Lorazepam (Ativan) 2 mg Q8HP PRN PO AGITATION 11/24/20 10:55 12/01/20 10:54 DC 11/30/20 22:04 Lorazepam (Ativan) 2 mg STAT STAT IM 11/26/20 02:41 11/26/20 02:44 DC 11/26/20 02:53 Lorazepam (Ativan) 2 mg STAT STAT PO 11/19/20 06:48 11/19/20 06:50 DC 11/19/20 07:06 Losartan Potassium (Cozaar) 50 mg DAILY PO 11/19/20 09:00 11/22/20 08:55 DC 11/22/20 08:20 Magnesium Hydroxide (Milk Of Magnesia) 30 ml DAILYPRN PRN PO CONSTIPATION 11/18/20 12:40 11/24/20 01:45 DC Magnesium Hydroxide (Milk Of Magnesia) 30 ml DAILYPRN PRN PO CONSTIPATION 11/24/20 10:55 01/08/21 17:19 Menthol/Methyl Salicylate (Bengay Cream) Allow patient to apply t... BID PRN TOP MILD PAIN (PS 1-4) 12/19/20 11:40 01/01/21 12:36 DC 01/01/21 09:02 Menthol/Methyl Salicylate (Bengay Cream) Allow patient to apply t... TID TOP 01/01/21 16:00 01/15/21 08:36 Metformin HCl (Glucophage) 1,000 mg BID@08,18 PO 11/24/20 08:00 01/01/21 16:37 DC 01/01/21 07:34 Metformin HCl (Glucophage) 1,000 mg BID@0800,1800 PO 11/18/20 18:00 8/8/21 01:45 DC 11/23/20 17:34 Miscellaneous (Unresolved Clarification Entry) SEE LABEL COMMENTS DAILY XX 11/30/20 09:00 12/02/20 09:53 DC Miscellaneous (Unresolved Clarification Entry) SEE LABEL COMMENTS DAILY XX 12/02/20 09:00 12/02/20 12:12 DC Miscellaneous (Unresolved Clarification Entry) SEE LABEL COMMENTS DAILY XX 12/13/20 09:00 12/15/20 10:07 DC Miscellaneous (Unresolved Clarification Entry) SEE LABEL COMMENTS DAILY XX 12/30/20 09:00 12/30/20 15:31 DC Miscellaneous (Unresolved Clarification Entry) SEE LABEL COMMENTS DAILY XX 12/30/20 09:00 Cancel Miscellaneous (Unresolved Clarification Entry) SEE LABEL COMMENTS DAILY XX 01/07/21 09:00 01/08/21 07:30 DC Miscellaneous (Unresolved Clarification Entry) SEE LABEL COMMENTS DAILY XX 12/22/20 09:00 12/24/20 14:02 DC Miscellaneous (Unresolved Patient Own Med Order) SEE LABEL COMMENTS UNRESOLVED XX 01/15/21 00:01 Montelukast Sodium (Singulair) 10 mg QHS PO 11/18/20 21:00 11/24/20 01:45 DC 11/23/20 21:15 Montelukast Sodium (Singulair) 10 mg QHS PO 11/24/20 21:00 01/14/21 21:47 Non-Formulary Medication ( See Comment Field Below ) REMOVE LIDODERM PATCH DAILY@ XX 01/06/21 21:00 01/06/21 23:59 DC 01/06/21 21:00 Non-Formulary Medication ( See Comment Field Below ) REMOVE LIDODERM PATCH DAILY@ XX 01/08/21 21:00 01/14/21 21:52 Omeprazole (PriLOSEC) 20 mg DAILY PO 12/11/20 09:00 01/15/21 08:36 Oxybutynin Chloride (Ditropan) 5 mg DAILY PO 11/19/20 09:00 11/24/20 01:45 DC 11/23/20 08:00 Oxybutynin Chloride (Ditropan) 5 mg DAILY PO 11/24/20 09:00 01/15/21 08:38 Patient Own Medication (Patient'S Own Med) valbenazine (ingrezza)80MG CAP TAKE... DAILY PO 01/15/21 09:00 UNV Propranolol HCl (Inderal) 10 mg BID PO 11/18/20 21:00 11/22/20 08:55 DC 11/22/20 08:20 Quetiapine Fumarate (SEROquel) 200 mg QHS PO 11/19/20 21:00 11/24/20 01:45 DC 11/23/20 21:15 Quetiapine Fumarate (SEROquel) 200 mg QHS PO 11/24/20 21:00 12/04/20 08:57 DC 12/03/20 20:20 Quetiapine Fumarate (SEROquel) 300 mg QHS PO 12/04/20 21:00 01/14/21 21:47 Saliva Substitute (Mouthkote) ASDIRECTED PRN MT DRY MOUTH 01/01/21 12:30 01/11/21 15:24 Tamsulosin HCl (Flomax) 0.8 mg DAILY PO 11/19/20 09:00 11/24/20 01:45 DC 11/23/20 08:01 Tamsulosin HCl (Flomax) 0.8 mg DAILY PO 11/24/20 09:00 01/15/21 08:37 Trazodone HCl (Desyrel) 50 mg QPM PO 01/06/21 21:00 01/14/21 21:47 Trazodone HCl (Desyrel) 100 mg QPM PO 11/18/20 21:00 11/24/20 01:45 DC 11/23/20 21:16 Trazodone HCl (Desyrel) 100 mg QPM PO 11/24/20 21:00 01/06/21 10:12 DC 01/05/21 20:36 Vitamin D (Vitamin D) 400 units DAILY PO 11/19/20 09:00 11/24/20 01:45 DC 11/23/20 08:00 Vitamin D (Vitamin D) 400 units DAILY PO 11/24/20 09:00 01/15/21 08:36 Allergies Coded Allergies: Penicillins (Verified Allergy, Intermediate, rash, 01/02/19) latex (Verified Allergy, Intermediate, rash, 12/13/19) divalproex sodium (Verified Allergy, Unknown, 01/02/19) AYESHA MOLINA MD Jan 15, 2021 10:23
[2021-01-15] MEDS ORDERED: MAGNESIUM SULFATE GRANULES(EPSOM SALT) 1LB TOP PRN (12:00)
[2021-01-15 14:10] VITALS: BP 153/87
[2021-01-15 16:18] VITALS: BP 130/67
[2021-01-15] MEDS: **NOTE PATIENT COMMENT** MISC XX SCH (21:00)
[2021-01-15] MEDS: CYCLOBENZAPRINE 10MG TABLET PO SCH (21:09)
[2021-01-15] MEDS: traZODone 50 MG TAB PO SCH (21:10)
[2021-01-15] MEDS: MONTELUKAST 10 MG TAB PO SCH (21:10)
[2021-01-15] MEDS: QUEtiapine FUMARATE 100 MG TAB PO SCH (21:14)
[2021-01-15] MEDS: ATORVASTATIN 20 MG TAB PO SCH (21:14)
[2021-01-15] MEDS: haloperidoL 5 MG TAB PO SCH (21:14)
[2021-01-15] MEDS: diphenhydrAMINE 50MG CAP PO PRN (21:20)
[2021-01-15] MEDS: LORazepam 1 MG TAB PO PRN (21:20)
[2021-01-16] MEDS: UNRESOLVED PATIENT OWN MED ORDER XX SCH (00:01)
[2021-01-16] MEDS: ACETAMINOPHEN TAB 650MG DOSE (2X325MG) PO PRN ×2 (00:32→10:05)
[2021-01-16] MEDS: LEVOTHYROXINE 100MCG TABLET (0.1MG) PO SCH (05:47)
[2021-01-16] MEDS: **hydrALAZINE HCL** 25 MG TAB PO SCH ×3 (06:00→21:10)
[2021-01-16 07:11] VITALS: BP 144/86
[2021-01-16] MEDS: HumaLOG INSULIN (NovoLOG) PER UNIT SC SCH ×4 (07:20→21:00)
[2021-01-16] MEDS: OMEPRAZOLE 20 MG CAP PO SCH (08:39)
[2021-01-16] MEDS: TAMSULOSIN 0.4 MG CAP PO SCH (08:39)
[2021-01-16] MEDS: GLIMEPIRIDE 2 MG TAB PO SCH ×2 (08:39→17:20)
[2021-01-16] MEDS: DOCUSATE SODIUM 100MG CAPSULE PO SCH ×2 (08:39→21:14)
[2021-01-16] MEDS: ASPIRIN 81MG ENTERIC TABLET PO SCH (08:39)
[2021-01-16] MEDS: oxyBUTYnin 5 MG TAB PO SCH (08:39)
[2021-01-16] MEDS: OMEGA-3 1000MG CAPSULE PO SCH (08:39)
[2021-01-16] MEDS: BENZTROPINE 1 MG TAB PO SCH ×2 (08:40→21:14)
[2021-01-16] MEDS: lamoTRIgine 100MG TAB PO SCH (08:40)
[2021-01-16] MEDS: FLUTICASONE PROP 0.05% NASAL SPRAY 16 GM (FLONASE) NARES SCH (08:40)
[2021-01-16] MEDS: VITAMIN D (CHOLECALCIFEROL) 400 INTERNATIONAL UNITS TAB PO SCH (08:41)
[2021-01-16] MEDS: atenoloL 25 MG TAB PO SCH ×2 (08:42→21:13)
[2021-01-16] MEDS: ANALGESIC BALM CRM 3OZ TOP SCH ×3 (08:43→21:13)
[2021-01-16] MEDS: LIDOCAINE 5% (LIDODERM) PATCH TD SCH (08:44)
[2021-01-16] MEDS: diphenhydrAMINE 50MG CAP PO PRN (10:29)
[2021-01-16] MEDS: LORazepam 1 MG TAB PO PRN (10:29)
--- NOTE | 2021-01-16 12:54 | MHIPNPDOC ---
[facility] Progress Note Progress Note DATE OF SERVICE: 01/16/21 HISTORY: Patient a 50 y/o man with a past history of bipolar disorder and numerous admissions since his 20's. Was d/c from [facility] [place] Jan 2010 and living [facility] since. Was admitted on this occasion due to disorganized and paranoid behavior. Currently remains in contact isolation due to possible exposure previous treatment nursing staff. Interval: No changes from previous days, continues to be grossly disorganized continues to be grossly disorganized and makes some appropriate jokes in the hallway with staff, pending placement. Reports hip pain in the joints despite Lidoderm patches. Reports sleep is good, appetite is normal, no aggressive behaviors, no other acute physical complaints. VITAL SIGNS: See below. NEW TEST RESULTS: CURRENT MEDICATIONS: See below. MENTAL STATUS EXAMINATION: Patient is a 50-year old male, wearing masks and glasses without redirection, no acute distress, elevated BMI, somewhat improved hygiene Speech: spontaneous, normal rate Language skills are poor. Thought processes including: Remains disorganized, tangential at times. Thought content: Denies Suicidal thoughts, intent or plan. Abstract reasoning, and computation: unable to fully assess. Description of associations: concrete Description of abnormal or psychotic thoughts: No change, continues to report chronic AH, Judgment: poor Insight: poor Orientation: to person, place, time Recent and remote memory: poor Attention span and concentration: Poor, distractible Language: Georgian Fund of knowledge: Below average Mood: "Fine" affect: [place], grossly psychotic, appropriate DIAGNOSES: 1. Schizoaffective disorder bipolar type 2. Hypertension started on a regimen of hydralazine, lisinopril, 3. Diabetes, glimepiride for elevated A1c of 6.9 4. Back pain, lidocaine patch ASSESSMENT: Continues to be pleasantly disorganized, pending placement. MANAGEMENT PLAN: Continue medications. 6 months retention completed. Has ibuprofen lately ordered and patch for hip joint pain. Has AOT, pending [facility] placement. Continue medications, ordered home valbenazine for tardive dyskinesia, has not arrived. Patient is highly sensitive to any medication changes with rapid decompensation. Vital stable on blood pressure medication regimen, followed by hospitalist team. TIME SPENT: 15 minutes. Vital Signs Vital Signs Date Time Temp Pulse Resp B/P (MAP) Pulse Ox O2 Delivery O2 Flow Rate FiO2 01/16/21 08:42 77 146/83 01/16/21 07:11 96.8 14 93 Room Air Laboratory Data 24H Labs Laboratory Tests 2 01/15/21 16:41: Bedside Glucose (Misc Panel) 195H 01/15/21 21:08: Bedside Glucose (Misc Panel) 172H 01/16/21 05:53: Bedside Glucose (Misc Panel) 153H 01/16/21 12:00: Bedside Glucose (Misc Panel) 271H Current Medications Current Medications Medications (Trade) Dose Ordered Sig/Kailey Route PRN Reason Start Time Stop Time Status Last Admin Dose Admin Acetaminophen (Tylenol Tab) 650 mg Q6HP PRN PO HEADACHE or MILD DISCOMFORT 12/01/20 16:05 01/16/21 10:05 Acetaminophen (Tylenol Tab) 650 mg Q6HP PRN PO HEADACHE or MILD DISCOMFORT 11/18/20 12:40 11/24/20 01:45 DC 11/23/20 03:09 Al Hydrox/Mg Hydrox/Simethicone (Mylanta) 30 ml Q4HP PRN PO HEARTBURN/INDIGESTION 11/18/20 12:40 11/24/20 01:45 DC 11/23/20 22:34 Amlodipine Besylate (Norvasc) 10 mg DAILY PO 11/19/20 09:00 11/22/20 08:55 DC 11/22/20 08:20 Aspirin (Ecotrin) 81 mg DAILY PO 11/24/20 09:00 01/16/21 08:39 Aspirin (Ecotrin) 81 mg QAM PO 11/22/20 09:00 11/24/20 01:45 DC 11/23/20 07:58 Atenolol (Tenormin) 25 mg BID PO 11/22/20 09:00 11/22/20 12:53 DC 11/22/20 09:51 Atenolol (Tenormin) 25 mg BID PO 11/24/20 09:00 01/16/21 08:42 Atenolol (Tenormin) 50 mg BID PO 11/22/20 21:00 11/24/20 00:13 DC 11/23/20 21:16 Atorvastatin Calcium (Lipitor) 40 mg QHS PO 11/18/20 21:00 11/24/20 01:45 DC 11/23/20 21:16 Atorvastatin Calcium (Lipitor) 40 mg QHS PO 11/24/20 21:00 01/15/21 21:14 Benztropine Mesylate (Cogentin) 1 mg BID PO 11/18/20 09:00 11/24/20 01:45 DC 11/23/20 21:15 Benztropine Mesylate (Cogentin) 1 mg BID PO 11/24/20 09:00 01/16/21 08:40 Cyclobenzaprine HCl (Flexeril) 10 mg QHS PO 11/20/20 21:00 11/24/20 01:45 DC 11/23/20 21:16 Cyclobenzaprine HCl (Flexeril) 10 mg QHS PO 11/24/20 21:00 01/15/21 21:09 Dextrose (Dextrose 50%) 25 ml ASDIRECTED PRN IV SEE LABEL COMMENTS 01/01/21 16:35 Diphenhydramine HCl (Benadryl) 50 mg Q8HP PRN PO AGITATION 11/19/20 09:10 11/24/20 01:45 DC 11/23/20 17:51 Diphenhydramine HCl (Benadryl) 50 mg Q8HP PRN PO AGITATION 11/24/20 10:55 01/16/21 10:29 Diphenhydramine HCl (Benadryl) 50 mg STAT STAT IM 11/26/20 02:41 11/26/20 02:44 DC 11/26/20 02:53 Diphenhydramine HCl (Benadryl) 50 mg STAT STAT PO 11/19/20 06:48 11/19/20 06:50 DC 11/19/20 07:06 Docusate Sodium (Colace) 100 mg BID PO 11/18/20 21:00 11/24/20 01:45 DC 11/23/20 21:15 Docusate Sodium (Colace) 100 mg BID PO 11/24/20 09:00 01/16/21 08:39 Fish Oil ([place]-3 (1000mg)) 1 cap DAILY PO 12/06/20 09:00 01/16/21 08:39 Fluticasone Propionate (Flonase 0.05% Nasal [place]) 2 spray DAILY NARES 11/19/20 09:00 11/24/20 01:45 DC 11/23/20 08:01 Fluticasone Propionate (Flonase 0.05% Nasal [place]) 2 spray DAILY NARES 11/24/20 09:00 01/16/21 08:40 Glimepiride (Amaryl) 2 mg BID@0730,1730 PO 01/13/21 17:30 01/16/21 08:39 Glucagon (Glucagon) 1 mg ASDIRECTED PRN SC SEE LABEL COMMENTS 01/01/21 16:35 Glucose (Glucose) 16 GM ASDIRECTED PRN PO SEE LABEL COMMENTS 01/01/21 16:35 Guaifenesin/ Dextromethorphan (Robitussin Dm) 10 ml Q4HP PRN PO COUGH 01/01/21 11:40 01/11/21 15:41 Haloperidol (Haldol) 10 mg Q8HP PRN PO AGITATION 11/19/20 09:10 11/24/20 01:45 DC 11/23/20 23:21 Haloperidol (Haldol) 10 mg Q8HP PRN PO AGITATION 11/24/20 10:55 01/15/21 21:20 Haloperidol (Haldol) 10 mg QHS PO 11/19/20 21:00 11/19/20 09:48 DC Haloperidol (Haldol) 10 mg QHS PO 11/19/20 21:00 11/24/20 01:45 DC 11/23/20 21:16 Haloperidol (Haldol) 10 mg QHS PO 11/24/20 21:00 12/11/20 10:47 DC 12/10/20 21:45 Haloperidol (Haldol) 10 mg QHS PO 12/19/20 21:00 01/15/21 21:14 Haloperidol (Haldol) 10 mg STAT STAT IM 11/26/20 02:41 11/26/20 02:44 DC 11/26/20 02:52 Haloperidol (Haldol) 10 mg STAT STAT PO 11/19/20 06:48 11/19/20 06:50 DC 11/19/20 07:06 Haloperidol (Haldol) 15 mg QHS PO 12/11/20 21:00 12/19/20 10:34 DC 12/18/20 20:05 Haloperidol Decanoate (Haldol Decanoate) 100 mg Q28D IM 11/28/20 12:00 12/26/20 12:49 Home Med (Med Rec Complete!) ASDIRECTED XX 11/17/20 23:25 11/17/20 23:24 DC Hydralazine HCl (Apresoline) 25 mg Q8H PO 01/13/21 14:00 01/15/21 21:14 Ibuprofen (Advil) 800 mg Q12H PO 01/08/21 21:00 01/12/21 16:02 DC 01/12/21 08:43 Ibuprofen (Advil) 800 mg Q8H PO 12/11/20 14:00 01/08/21 14:46 DC 01/08/21 13:01 Insulin Human Lispro (HumaLOG INSULIN) SEE PROTOCOL TABLE AC SC 01/01/21 17:30 01/16/21 12:13 Insulin Human Lispro (HumaLOG INSULIN) SEE PROTOCOL TABLE QHS SC 01/01/21 21:00 01/12/21 20:46 Lamotrigine (LaMICtal) 200 mg DAILY PO 11/18/20 09:00 11/24/20 01:45 DC 11/23/20 08:00 Lamotrigine (LaMICtal) 200 mg DAILY PO 11/24/20 09:00 01/16/21 08:40 Levothyroxine Sodium (Synthroid) 100 mcg DAILY@06 PO 11/24/20 06:00 01/16/21 05:47 Levothyroxine Sodium (Synthroid) 100 mcg DAILY@0600 PO 11/19/20 06:00 11/24/20 01:45 DC 11/23/20 05:05 Lidocaine (Lidoderm Patch) 1 patch DAILY TD 01/08/21 09:00 01/15/21 10:23 DC 01/15/21 08:38 Lidocaine (Lidoderm Patch) 2 patch DAILY TD 01/15/21 11:00 01/16/21 08:44 Lisinopril (Prinivil) 20 mg DAILY PO 01/13/21 09:00 01/16/21 08:42 Lorazepam (Ativan) 1 mg Q12HP PRN PO ANXIETY/AGITATION 01/13/21 12:50 01/13/21 12:52 DC Lorazepam (Ativan) 1 mg Q12HP PRN PO ANXIETY/AGITATION 01/13/21 12:52 01/16/21 10:29 Lorazepam (Ativan) 1 mg Q8HP PRN PO ANXIETY/AGITATION 01/13/21 12:50 01/13/21 12:51 DC Lorazepam (Ativan) 2 mg Q8HP PRN PO ANXIETY/AGITATION 12/02/20 12:05 01/13/21 12:47 DC 01/11/21 19:00 Lorazepam (Ativan) 2 mg Q8HP PRN PO AGITATION 11/19/20 09:10 11/24/20 01:45 DC 11/23/20 23:21 Lorazepam (Ativan) 2 mg Q8HP PRN PO AGITATION 11/24/20 10:55 12/01/20 10:54 DC 11/30/20 22:04 Lorazepam (Ativan) 2 mg STAT STAT IM 11/26/20 02:41 11/26/20 02:44 DC 11/26/20 02:53 Lorazepam (Ativan) 2 mg STAT STAT PO 11/19/20 06:48 11/19/20 06:50 DC 11/19/20 07:06 Losartan Potassium (Cozaar) 50 mg DAILY PO 11/19/20 09:00 11/22/20 08:55 DC 11/22/20 08:20 Magnesium Hydroxide (Milk Of Magnesia) 30 ml DAILYPRN PRN PO CONSTIPATION 11/18/20 12:40 11/24/20 01:45 DC Magnesium Hydroxide (Milk Of Magnesia) 30 ml DAILYPRN PRN PO CONSTIPATION 11/24/20 10:55 01/08/21 17:19 Magnesium Sulfate (Epsom Salt) 1 dose DAILY PRN TOP MILD DISCOMFORT 01/15/21 12:00 Menthol/Methyl Salicylate (Bengay Cream) Allow patient to apply t... BID PRN TOP MILD PAIN (PS 1-4) 12/19/20 11:40 01/01/21 12:36 DC 01/01/21 09:02 Menthol/Methyl Salicylate (Bengay Cream) Allow patient to apply t... TID TOP 01/01/21 16:00 01/16/21 08:43 Metformin HCl (Glucophage) 1,000 mg BID@08,18 PO 11/24/20 08:00 01/01/21 16:37 DC 01/01/21 07:34 Metformin HCl (Glucophage) 1,000 mg BID@0800,1800 PO 11/18/20 18:00 11/24/20 01:45 DC 11/23/20 17:34 Miscellaneous (Unresolved Clarification Entry) SEE LABEL COMMENTS DAILY XX 11/30/20 09:00 12/02/20 09:53 DC Miscellaneous (Unresolved Clarification Entry) SEE LABEL COMMENTS DAILY XX 12/02/20 09:00 12/02/20 12:12 DC Miscellaneous (Unresolved Clarification Entry) SEE LABEL COMMENTS DAILY XX 12/13/20 09:00 12/15/20 10:07 DC Miscellaneous (Unresolved Clarification Entry) SEE LABEL COMMENTS DAILY XX 12/30/20 09:00 12/30/20 15:31 DC Miscellaneous (Unresolved Clarification Entry) SEE LABEL COMMENTS DAILY XX 12/30/20 09:00 Cancel Miscellaneous (Unresolved Clarification Entry) SEE LABEL COMMENTS DAILY XX 01/07/21 09:00 01/08/21 07:30 DC Miscellaneous (Unresolved Clarification Entry) SEE LABEL COMMENTS DAILY XX 12/22/20 09:00 12/24/20 14:02 DC Miscellaneous (Unresolved Patient Own Med Order) SEE LABEL COMMENTS UNRESOLVED XX 01/15/21 00:01 Montelukast Sodium (Singulair) 10 mg QHS PO 11/18/20 21:00 11/24/20 01:45 DC 11/23/20 21:15 Montelukast Sodium (Singulair) 10 mg QHS PO 11/24/20 21:00 01/15/21 21:10 Non-Formulary Medication ( See Comment Field Below ) REMOVE LIDODERM PATCH DAILY@ XX 01/06/21 21:00 01/06/21 23:59 DC 01/06/21 21:00 Non-Formulary Medication ( See Comment Field Below ) REMOVE LIDODERM PATCHES DAILY@ XX 01/08/21 21:00 01/15/21 21:00 Omeprazole (PriLOSEC) 20 mg DAILY PO 12/11/20 09:00 01/16/21 08:39 Oxybutynin Chloride (Ditropan) 5 mg DAILY PO 11/19/20 09:00 11/24/20 01:45 DC 11/23/20 08:00 Oxybutynin Chloride (Ditropan) 5 mg DAILY PO 11/24/20 09:00 01/16/21 08:39 Patient Own Medication (Patient'S Own Med) valbenazine (ingrezza)80MG CAP TAKE... DAILY PO 01/15/21 09:00 UNV Propranolol HCl (Inderal) 10 mg BID PO 11/18/20 21:00 11/22/20 08:55 DC 11/22/20 08:20 Quetiapine Fumarate (SEROquel) 200 mg QHS PO 11/19/20 21:00 11/24/20 01:45 DC 11/23/20 21:15 Quetiapine Fumarate (SEROquel) 200 mg QHS PO 11/24/20 21:00 12/04/20 08:57 DC 12/03/20 20:20 Quetiapine Fumarate (SEROquel) 300 mg QHS PO 12/04/20 21:00 01/15/21 21:14 Saliva Substitute (Mouthkote) ASDIRECTED PRN MT DRY MOUTH 01/01/21 12:30 01/11/21 15:24 Tamsulosin HCl (Flomax) 0.8 mg DAILY PO 11/19/20 09:00 11/24/20 01:45 DC 11/23/20 08:01 Tamsulosin HCl (Flomax) 0.8 mg DAILY PO 11/24/20 09:00 01/16/21 08:39 Trazodone HCl (Desyrel) 50 mg QPM PO 01/06/21 21:00 01/15/21 21:10 Trazodone HCl (Desyrel) 100 mg QPM PO 11/18/20 21:00 11/24/20 01:45 DC 11/23/20 21:16 Trazodone HCl (Desyrel) 100 mg QPM PO 11/24/20 21:00 01/06/21 10:12 DC 01/05/21 20:36 Vitamin D (Vitamin D) 400 units DAILY PO 11/19/20 09:00 11/24/20 01:45 DC 11/23/20 08:00 Vitamin D (Vitamin D) 400 units DAILY PO 11/24/20 09:00 01/16/21 08:41 Allergies Coded Allergies: Penicillins (Verified Allergy, Intermediate, rash, 01/02/19) latex (Verified Allergy, Intermediate, rash, 12/13/19) divalproex sodium (Verified Allergy, Unknown, 01/02/19) AYESHA MOLINA MD Jan 16, 2021 12:54
[2021-01-16 14:08] VITALS: BP 141/71
[2021-01-16] MEDS: **NOTE PATIENT COMMENT** MISC XX SCH (21:10)
[2021-01-16] MEDS: MONTELUKAST 10 MG TAB PO SCH (21:13)
[2021-01-16] MEDS: haloperidoL 5 MG TAB PO SCH (21:13)
[2021-01-16] MEDS: ATORVASTATIN 20 MG TAB PO SCH (21:14)
[2021-01-16] MEDS: CYCLOBENZAPRINE 10MG TABLET PO SCH (21:14)
[2021-01-16] MEDS: QUEtiapine FUMARATE 100 MG TAB PO SCH (21:14)
[2021-01-16] MEDS: traZODone 50 MG TAB PO SCH (21:14)
[2021-01-17] MEDS: **hydrALAZINE HCL** 25 MG TAB PO SCH ×3 (06:00→21:38)
[2021-01-17] MEDS: LEVOTHYROXINE 100MCG TABLET (0.1MG) PO SCH (06:17)
[2021-01-17 06:27] VITALS: BP 158/88
[2021-01-17] MEDS: HumaLOG INSULIN (NovoLOG) PER UNIT SC SCH ×4 (07:03→21:00)
[2021-01-17] MEDS: GLIMEPIRIDE 2 MG TAB PO SCH ×2 (07:03→16:59)
[2021-01-17] MEDS: ACETAMINOPHEN TAB 650MG DOSE (2X325MG) PO PRN ×3 (07:04→21:34)
[2021-01-17] MEDS: FLUTICASONE PROP 0.05% NASAL SPRAY 16 GM (FLONASE) NARES SCH (09:05)
[2021-01-17] MEDS: BENZTROPINE 1 MG TAB PO SCH ×2 (09:06→21:05)
[2021-01-17] MEDS: VITAMIN D (CHOLECALCIFEROL) 400 INTERNATIONAL UNITS TAB PO SCH (09:06)
[2021-01-17] MEDS: OMEPRAZOLE 20 MG CAP PO SCH (09:06)
[2021-01-17] MEDS: TAMSULOSIN 0.4 MG CAP PO SCH (09:06)
[2021-01-17] MEDS: LIDOCAINE 5% (LIDODERM) PATCH TD SCH (09:06)
[2021-01-17] MEDS: lamoTRIgine 100MG TAB PO SCH (09:06)
[2021-01-17] MEDS: DOCUSATE SODIUM 100MG CAPSULE PO SCH ×2 (09:06→21:05)
[2021-01-17] MEDS: ANALGESIC BALM CRM 3OZ TOP SCH ×3 (09:07→21:04)
[2021-01-17] MEDS: ASPIRIN 81MG ENTERIC TABLET PO SCH (09:07)
[2021-01-17] MEDS: oxyBUTYnin 5 MG TAB PO SCH (09:07)
[2021-01-17] MEDS: OMEGA-3 1000MG CAPSULE PO SCH (09:07)
[2021-01-17] MEDS: atenoloL 25 MG TAB PO SCH ×2 (09:11→21:05)
--- NOTE | 2021-01-17 10:57 | MHIPNPDOC ---
[facility] Progress Note Progress Note DATE OF SERVICE: 01/17/21 HISTORY: Patient a 50 y/o man with a past history of bipolar disorder and numerous admissions since his 20's. [place] [facility] and living in [facility] since. Was admitted on this occasion due to disorganized and paranoid behavior. Currently remains in contact isolation due to possible exposure previous treatment nursing staff. Interval: Spoke with patient today, walking in the hallway, reports that he took Tylenol yesterday evening it was helpful for pain and slept a lot so he feels rested, continues to be concrete and grossly disorganized pending placement. No aggression on the unit. Vital signs remained stable, no acute physical com plaints. VITAL SIGNS: See below. NEW TEST RESULTS: CURRENT MEDICATIONS: See below. MENTAL STATUS EXAMINATION: Patient is a 50-year old male, wearing masks and glasses without redirection, no acute distress, elevated BMI, somewhat improved hygiene Speech: spontaneous, normal rate Language skills are poor. Thought processes including: Remains disorganized, tangential at times. Thought content: Denies Suicidal thoughts, intent or plan. Abstract reasoning, and computation: unable to fully assess. Description of associations: concrete Description of abnormal or psychotic thoughts: No change, continues to report chronic AH, Judgment: poor Insight: poor Orientation: to person, place, time Recent and remote memory: poor Attention span and concentration: Poor, distractible Language: Polish Fund of knowledge: Below average Mood: "Good" affect: No change, grossly psychotic, appropriate, makes jokes DIAGNOSES: 1. Schizoaffective disorder bipolar type 2. Hypertension started on a regimen of hydralazine, lisinopril, 3. Diabetes, glimepiride for elevated A1c of 6.9 4. Back pain, lidocaine patch ASSESSMENT: Continues to be pleasantly disorganized, pending placement. Blood pressure and blood glucose, stable. MANAGEMENT PLAN: No change, continue medications. 6 months retention completed. Has Tylenol ordered and lidocaine patch for hip joint pain. Has AOT, [place] [facility] [place]. Patient is highly sensitive to any medication changes with rapid decompensation. Vitals stable on blood pressure medication regimen, follo wed by hospitalist team. TIME SPENT: 15 minutes. Vital Signs Vital Signs Date Time Temp Pulse Resp B/P (MAP) Pulse Ox O2 Delivery O2 Flow Rate FiO2 01/17/21 09:11 86 144/96 01/17/21 06:27 97.1 18 95 Room Air Laboratory Data 24H Labs Laboratory Tests 2 01/16/21 12:00: Bedside Glucose (Misc Panel) 271H 01/16/21 17:11: Bedside Glucose (Misc Panel) 211H 01/16/21 21:07: Bedside Glucose (Misc Panel) 215H 01/17/21 06:20: Bedside Glucose (Misc Panel) 155H Current Medications Current Medications Medications (Trade) Dose Ordered Sig/Kailey Route PRN Reason Start Time Stop Time Status Last Admin Dose Admin Acetaminophen (Tylenol Tab) 650 mg Q6HP PRN PO HEADACHE or MILD DISCOMFORT 12/01/20 16:05 01/17/21 07:04 Acetaminophen (Tylenol Tab) 650 mg Q6HP PRN PO HEADACHE or MILD DISCOMFORT 11/18/20 12:40 11/24/20 01:45 DC 11/23/20 03:09 Al Hydrox/Mg Hydrox/Simethicone (Mylanta) 30 ml Q4HP PRN PO HEARTBURN/INDIGESTION 11/18/20 12:40 11/24/20 01:45 DC 11/23/20 22:34 Amlodipine Besylate (Norvasc) 10 mg DAILY PO 11/19/20 09:00 11/22/20 08:55 DC 11/22/20 08:20 Aspirin (Ecotrin) 81 mg DAILY PO 11/24/20 09:00 01/17/21 09:07 Aspirin (Ecotrin) 81 mg QAM PO 11/22/20 09:00 11/24/20 01:45 DC 11/23/20 07:58 Atenolol (Tenormin) 25 mg BID PO 11/22/20 09:00 11/22/20 12:53 DC 11/22/20 09:51 Atenolol (Tenormin) 25 mg BID PO 11/24/20 09:00 01/17/21 09:11 Atenolol (Tenormin) 50 mg BID PO 11/22/20 21:00 11/24/20 00:13 DC 11/23/20 21:16 Atorvastatin Calcium (Lipitor) 40 mg QHS PO 11/18/20 21:00 11/24/20 01:45 DC 11/23/20 21:16 Atorvastatin Calcium (Lipitor) 40 mg QHS PO 11/24/20 21:00 01/16/21 21:14 Benztropine Mesylate (Cogentin) 1 mg BID PO 11/18/20 09:00 11/24/20 01:45 DC 11/23/20 21:15 Benztropine Mesylate (Cogentin) 1 mg BID PO 11/24/20 09:00 01/17/21 09:06 Cyclobenzaprine HCl (Flexeril) 10 mg QHS PO 11/20/20 21:00 11/24/20 01:45 DC 11/23/20 21:16 Cyclobenzaprine HCl (Flexeril) 10 mg QHS PO 11/24/20 21:00 01/16/21 21:14 Dextrose (Dextrose 50%) 25 ml ASDIRECTED PRN IV SEE LABEL COMMENTS 01/01/21 16:35 Diphenhydramine HCl (Benadryl) 50 mg Q8HP PRN PO AGITATION 11/19/20 09:10 11/24/20 01:45 DC 11/23/20 17:51 Diphenhydramine HCl (Benadryl) 50 mg Q8HP PRN PO AGITATION 11/24/20 10:55 01/16/21 10:29 Diphenhydramine HCl (Benadryl) 50 mg STAT STAT IM 11/26/20 02:41 11/26/20 02:44 DC 11/26/20 02:53 Diphenhydramine HCl (Benadryl) 50 mg STAT STAT PO 11/19/20 06:48 11/19/20 06:50 DC 11/19/20 07:06 Docusate Sodium (Colace) 100 mg BID PO 11/18/20 21:00 11/24/20 01:45 DC 11/23/20 21:15 Docusate Sodium (Colace) 100 mg BID PO 11/24/20 09:00 01/17/21 09:06 Fish Oil (Haslet-3 (1000mg)) 1 cap DAILY PO 12/06/20 09:00 01/17/21 09:07 Fluticasone Propionate (Flonase 0.05% Nasal [place]) 2 spray DAILY NARES 11/19/20 09:00 11/24/20 01:45 DC 11/23/20 08:01 Fluticasone Propionate (Flonase 0.05% Nasal [place]) 2 spray DAILY NARES 11/24/20 09:00 01/17/21 09:05 Glimepiride (Amaryl) 2 mg BID@0730,1730 PO 01/13/21 17:30 01/17/21 07:03 Glucagon (Glucagon) 1 mg ASDIRECTED PRN SC SEE LABEL COMMENTS 01/01/21 16:35 Glucose (Glucose) 16 GM ASDIRECTED PRN PO SEE LABEL COMMENTS 01/01/21 16:35 Guaifenesin/ Dextromethorphan (Robitussin Dm) 10 ml Q4HP PRN PO COUGH 01/01/21 11:40 01/11/21 15:41 Haloperidol (Haldol) 10 mg Q8HP PRN PO AGITATION 11/19/20 09:10 11/24/20 01:45 DC 11/23/20 23:21 Haloperidol (Haldol) 10 mg Q8HP PRN PO AGITATION 11/24/20 10:55 01/15/21 21:20 Haloperidol (Haldol) 10 mg QHS PO 11/19/20 21:00 11/19/20 09:48 DC Haloperidol (Haldol) 10 mg QHS PO 11/19/20 21:00 11/24/20 01:45 DC 11/23/20 21:16 Haloperidol (Haldol) 10 mg QHS PO 11/24/20 21:00 12/11/20 10:47 DC 12/10/20 21:45 Haloperidol (Haldol) 10 mg QHS PO 12/19/20 21:00 01/16/21 21:13 Haloperidol (Haldol) 10 mg STAT STAT IM 11/26/20 02:41 11/26/20 02:44 DC 11/26/20 02:52 Haloperidol (Haldol) 10 mg STAT STAT PO 11/19/20 06:48 11/19/20 06:50 DC 11/19/20 07:06 Haloperidol (Haldol) 15 mg QHS PO 12/11/20 21:00 12/19/20 10:34 DC 12/18/20 20:05 Haloperidol Decanoate (Haldol Decanoate) 100 mg Q28D IM 11/28/20 12:00 12/26/20 12:49 Home Med (Med Rec Complete!) ASDIRECTED XX 11/17/20 23:25 11/17/20 23:24 DC Hydralazine HCl (Apresoline) 25 mg Q8H PO 01/13/21 14:00 01/15/21 21:14 Ibuprofen (Advil) 800 mg Q12H PO 01/08/21 21:00 01/12/21 16:02 DC 01/12/21 08:43 Ibuprofen (Advil) 800 mg Q8H PO 12/11/20 14:00 01/08/21 14:46 DC 01/08/21 13:01 Insulin Human Lispro (HumaLOG INSULIN) SEE PROTOCOL TABLE AC SC 01/01/21 17:30 01/17/21 07:03 Insulin Human Lispro (HumaLOG INSULIN) SEE PROTOCOL TABLE QHS SC 01/01/21 21:00 01/12/21 20:46 Lamotrigine (LaMICtal) 200 mg DAILY PO 11/18/20 09:00 11/24/20 01:45 DC 11/23/20 08:00 Lamotrigine (LaMICtal) 200 mg DAILY PO 11/24/20 09:00 01/17/21 09:06 Levothyroxine Sodium (Synthroid) 100 mcg DAILY@06 PO 11/24/20 06:00 01/17/21 06:17 Levothyroxine Sodium (Synthroid) 100 mcg DAILY@0600 PO 11/19/20 06:00 11/24/20 01:45 DC 11/23/20 05:05 Lidocaine (Lidoderm Patch) 1 patch DAILY TD 01/08/21 09:00 01/15/21 10:23 DC 01/15/21 08:38 Lidocaine (Lidoderm Patch) 2 patch DAILY TD 01/15/21 11:00 01/17/21 09:06 Lisinopril (Prinivil) 20 mg DAILY PO 01/13/21 09:00 01/17/21 09:06 Lorazepam (Ativan) 1 mg Q12HP PRN PO ANXIETY/AGITATION 01/13/21 12:50 01/13/21 12:52 DC Lorazepam (Ativan) 1 mg Q12HP PRN PO ANXIETY/AGITATION 01/13/21 12:52 01/16/21 10:29 Lorazepam (Ativan) 1 mg Q8HP PRN PO ANXIETY/AGITATION 01/13/21 12:50 01/13/21 12:51 DC Lorazepam (Ativan) 2 mg Q8HP PRN PO ANXIETY/AGITATION 12/02/20 12:05 01/13/21 12:47 DC 01/11/21 19:00 Lorazepam (Ativan) 2 mg Q8HP PRN PO AGITATION 11/19/20 09:10 11/24/20 01:45 DC 11/23/20 23:21 Lorazepam (Ativan) 2 mg Q8HP PRN PO AGITATION 11/24/20 10:55 12/01/20 10:54 DC 11/30/20 22:04 Lorazepam (Ativan) 2 mg STAT STAT IM 11/26/20 02:41 11/26/20 02:44 DC 11/26/20 02:53 Lorazepam (Ativan) 2 mg STAT STAT PO 11/19/20 06:48 11/19/20 06:50 DC 11/19/20 07:06 Losartan Potassium (Cozaar) 50 mg DAILY PO 11/19/20 09:00 11/22/20 08:55 DC 11/22/20 08:20 Magnesium Hydroxide (Milk Of Magnesia) 30 ml DAILYPRN PRN PO CONSTIPATION 11/18/20 12:40 11/24/20 01:45 DC Magnesium Hydroxide (Milk Of Magnesia) 30 ml DAILYPRN PRN PO CONSTIPATION 11/24/20 10:55 01/08/21 17:19 Magnesium Sulfate (Epsom Salt) 1 dose DAILY PRN TOP MILD DISCOMFORT 01/15/21 12:00 Menthol/Methyl Salicylate (Bengay Cream) Allow patient to apply t... BID PRN TOP MILD PAIN (PS 1-4) 12/19/20 11:40 01/01/21 12:36 DC 01/01/21 09:02 Menthol/Methyl Salicylate (Bengay Cream) Allow patient to apply t... TID TOP 01/01/21 16:00 01/17/21 09:07 Metformin HCl (Glucophage) 1,000 mg BID@08,18 PO 11/24/20 08:00 01/01/21 16:37 DC 01/01/21 07:34 Metformin HCl (Glucophage) 1,000 mg BID@0800,1800 PO 11/18/20 18:00 11/24/20 01:45 DC 11/23/20 17:34 Miscellaneous (Unresolved Clarification Entry) SEE LABEL COMMENTS DAILY XX 11/30/20 09:00 12/02/20 09:53 DC Miscellaneous (Unresolved Clarification Entry) SEE LABEL COMMENTS DAILY XX 12/02/20 09:00 12/02/20 12:12 DC Miscellaneous (Unresolved Clarification Entry) SEE LABEL COMMENTS DAILY XX 12/13/20 09:00 12/15/20 10:07 DC Miscellaneous (Unresolved Clarification Entry) SEE LABEL COMMENTS DAILY XX 12/30/20 09:00 12/30/20 15:31 DC Miscellaneous (Unresolved Clarification Entry) SEE LABEL COMMENTS DAILY XX 12/30/20 09:00 Cancel Miscellaneous (Unresolved Clarification Entry) SEE LABEL COMMENTS DAILY XX 01/07/21 09:00 01/08/21 07:30 DC Miscellaneous (Unresolved Clarification Entry) SEE LABEL COMMENTS DAILY XX 12/22/20 09:00 12/24/20 14:02 DC Miscellaneous (Unresolved Patient Own Med Order) SEE LABEL COMMENTS UNRESOLVED XX 01/15/21 00:01 01/16/21 15:59 DC Montelukast Sodium (Singulair) 10 mg QHS PO 11/18/20 21:00 11/24/20 01:45 DC 11/23/20 21:15 Montelukast Sodium (Singulair) 10 mg QHS PO 11/24/20 21:00 01/16/21 21:13 Non-Formulary Medication ( See Comment Field Below ) REMOVE LIDODERM PATCH DAILY@ XX 01/06/21 21:00 01/06/21 23:59 DC 01/06/21 21:00 Non-Formulary Medication ( See Comment Field Below ) REMOVE LIDODERM PATCHES DAILY@ XX 01/08/21 21:00 01/16/21 21:10 Omeprazole (PriLOSEC) 20 mg DAILY PO 12/11/20 09:00 01/17/21 09:06 Oxybutynin Chloride (Ditropan) 5 mg DAILY PO 11/19/20 09:00 11/24/20 01:45 DC 11/23/20 08:00 Oxybutynin Chloride (Ditropan) 5 mg DAILY PO 11/24/20 09:00 01/17/21 09:07 Patient Own Medication (Patient'S Own Med) valbenazine (ingrezza)80MG CAP TAKE... DAILY PO 01/15/21 09:00 01/16/21 15:59 DC Propranolol HCl (Inderal) 10 mg BID PO 11/18/20 21:00 11/22/20 08:55 DC 11/22/20 08:20 Quetiapine Fumarate (SEROquel) 200 mg QHS PO 11/19/20 21:00 11/24/20 01:45 DC 11/23/20 21:15 Quetiapine Fumarate (SEROquel) 200 mg QHS PO 11/24/20 21:00 12/04/20 08:57 DC 12/03/20 20:20 Quetiapine Fumarate (SEROquel) 300 mg QHS PO 12/04/20 21:00 01/16/21 21:14 Saliva Substitute (Mouthkote) ASDIRECTED PRN MT DRY MOUTH 01/01/21 12:30 01/11/21 15:24 Tamsulosin HCl (Flomax) 0.8 mg DAILY PO 11/19/20 09:00 11/24/20 01:45 DC 11/23/20 08:01 Tamsulosin HCl (Flomax) 0.8 mg DAILY PO 11/24/20 09:00 01/17/21 09:06 Trazodone HCl (Desyrel) 50 mg QPM PO 01/06/21 21:00 01/16/21 21:14 Trazodone HCl (Desyrel) 100 mg QPM PO 11/18/20 21:00 11/24/20 01:45 DC 11/23/20 21:16 Trazodone HCl (Desyrel) 100 mg QPM PO 11/24/20 21:00 01/06/21 10:12 DC 01/05/21 20:36 Vitamin D (Vitamin D) 400 units DAILY PO 11/19/20 09:00 11/24/20 01:45 DC 11/23/20 08:00 Vitamin D (Vitamin D) 400 units DAILY PO 11/24/20 09:00 01/17/21 09:06 Allergies Coded Allergies: Penicillins (Verified Allergy, Intermediate, rash, 01/02/19) latex (Verified Allergy, Intermediate, rash, 12/13/19) divalproex sodium (Verified Allergy, Unknown, 01/02/19) AYESHA MOLINA MD Jan 17, 2021 10:57
[2021-01-17 14:00] VITALS: BP 130/80
[2021-01-17] MEDS: CYCLOBENZAPRINE 10MG TABLET PO SCH (21:04)
[2021-01-17] MEDS: MONTELUKAST 10 MG TAB PO SCH (21:05)
[2021-01-17] MEDS: QUEtiapine FUMARATE 100 MG TAB PO SCH (21:05)
[2021-01-17] MEDS: haloperidoL 5 MG TAB PO SCH (21:05)
[2021-01-17] MEDS: traZODone 50 MG TAB PO SCH (21:05)
[2021-01-17] MEDS: ATORVASTATIN 20 MG TAB PO SCH (21:05)
[2021-01-17] MEDS: **NOTE PATIENT COMMENT** MISC XX SCH (21:06)
[2021-01-17] MEDS: LORazepam 1 MG TAB PO PRN (21:33)
[2021-01-17] MEDS: diphenhydrAMINE 50MG CAP PO PRN (21:33)
[2021-01-18] MEDS: **hydrALAZINE HCL** 25 MG TAB PO SCH ×3 (06:00→21:41)
[2021-01-18] MEDS: LEVOTHYROXINE 100MCG TABLET (0.1MG) PO SCH (06:09)
[2021-01-18 06:17] VITALS: BP 145/101
[2021-01-18] MEDS: GLIMEPIRIDE 2 MG TAB PO SCH ×2 (06:47→17:09)
[2021-01-18] MEDS: HumaLOG INSULIN (NovoLOG) PER UNIT SC SCH ×4 (06:48→20:40)
[2021-01-18] MEDS: oxyBUTYnin 5 MG TAB PO SCH (08:27)
[2021-01-18] MEDS: ANALGESIC BALM CRM 3OZ TOP SCH ×3 (08:27→20:38)
[2021-01-18] MEDS: FLUTICASONE PROP 0.05% NASAL SPRAY 16 GM (FLONASE) NARES SCH (08:27)
[2021-01-18] MEDS: DOCUSATE SODIUM 100MG CAPSULE PO SCH ×2 (08:27→20:39)
[2021-01-18] MEDS: OMEPRAZOLE 20 MG CAP PO SCH (08:27)
[2021-01-18] MEDS: OMEGA-3 1000MG CAPSULE PO SCH (08:27)
[2021-01-18] MEDS: LIDOCAINE 5% (LIDODERM) PATCH TD SCH (08:28)
[2021-01-18] MEDS: atenoloL 25 MG TAB PO SCH ×2 (08:28→20:39)
[2021-01-18] MEDS: VITAMIN D (CHOLECALCIFEROL) 400 INTERNATIONAL UNITS TAB PO SCH (08:28)
[2021-01-18] MEDS: TAMSULOSIN 0.4 MG CAP PO SCH (08:28)
[2021-01-18] MEDS: ASPIRIN 81MG ENTERIC TABLET PO SCH (08:28)
[2021-01-18] MEDS: BENZTROPINE 1 MG TAB PO SCH ×2 (08:28→20:39)
[2021-01-18] MEDS: lamoTRIgine 100MG TAB PO SCH (08:28)
[2021-01-18 08:37] VITALS: BP 128/79
[2021-01-18] MEDS: ACETAMINOPHEN TAB 650MG DOSE (2X325MG) PO PRN ×3 (11:40→23:50)
[2021-01-18 14:21] VITALS: BP 129/69
[2021-01-18] MEDS: MONTELUKAST 10 MG TAB PO SCH (20:38)
[2021-01-18] MEDS: CYCLOBENZAPRINE 10MG TABLET PO SCH (20:38)
[2021-01-18] MEDS: traZODone 50 MG TAB PO SCH (20:39)
[2021-01-18] MEDS: haloperidoL 5 MG TAB PO SCH (20:39)
[2021-01-18] MEDS: QUEtiapine FUMARATE 100 MG TAB PO SCH (20:39)
[2021-01-18] MEDS: ATORVASTATIN 20 MG TAB PO SCH (20:39)
[2021-01-18] MEDS: **NOTE PATIENT COMMENT** MISC XX SCH (21:41)
[2021-01-19] MEDS: LEVOTHYROXINE 100MCG TABLET (0.1MG) PO SCH (05:55)
[2021-01-19] MEDS: **hydrALAZINE HCL** 25 MG TAB PO SCH ×3 (06:03→22:00)
[2021-01-19 06:04] VITALS: BP 183/104
[2021-01-19 06:34] VITALS: BP 138/68
[2021-01-19] MEDS: HumaLOG INSULIN (NovoLOG) PER UNIT SC SCH ×4 (06:39→21:00)
[2021-01-19] MEDS: GLIMEPIRIDE 2 MG TAB PO SCH ×2 (06:39→17:02)
[2021-01-19] MEDS: OMEPRAZOLE 20 MG CAP PO SCH (08:24)
[2021-01-19] MEDS: OMEGA-3 1000MG CAPSULE PO SCH (08:24)
[2021-01-19] MEDS: ASPIRIN 81MG ENTERIC TABLET PO SCH (08:24)
[2021-01-19] MEDS: FLUTICASONE PROP 0.05% NASAL SPRAY 16 GM (FLONASE) NARES SCH (08:24)
[2021-01-19] MEDS: DOCUSATE SODIUM 100MG CAPSULE PO SCH ×2 (08:25→23:27)
[2021-01-19] MEDS: LIDOCAINE 5% (LIDODERM) PATCH TD SCH (08:25)
[2021-01-19] MEDS: oxyBUTYnin 5 MG TAB PO SCH (08:25)
[2021-01-19] MEDS: ANALGESIC BALM CRM 3OZ TOP SCH ×3 (08:25→23:28)
[2021-01-19] MEDS: TAMSULOSIN 0.4 MG CAP PO SCH (08:25)
[2021-01-19] MEDS: BENZTROPINE 1 MG TAB PO SCH ×2 (08:25→23:27)
[2021-01-19] MEDS: lamoTRIgine 100MG TAB PO SCH (08:25)
[2021-01-19] MEDS: VITAMIN D (CHOLECALCIFEROL) 400 INTERNATIONAL UNITS TAB PO SCH (08:25)
[2021-01-19] MEDS: atenoloL 25 MG TAB PO SCH ×2 (08:26→23:25)
[2021-01-19] MEDS: ACETAMINOPHEN TAB 650MG DOSE (2X325MG) PO PRN (15:16)
[2021-01-19 16:39] VITALS: BP 161/92
[2021-01-19] MEDS: **NOTE PATIENT COMMENT** MISC XX SCH (21:00)
[2021-01-19] MEDS: QUEtiapine FUMARATE 100 MG TAB PO SCH (23:25)
[2021-01-19] MEDS: haloperidoL 5 MG TAB PO SCH (23:26)
[2021-01-19] MEDS: MONTELUKAST 10 MG TAB PO SCH (23:26)
[2021-01-19] MEDS: ATORVASTATIN 20 MG TAB PO SCH (23:26)
[2021-01-19] MEDS: traZODone 50 MG TAB PO SCH (23:26)
[2021-01-19] MEDS: CYCLOBENZAPRINE 10MG TABLET PO SCH (23:37)
[2021-01-19 23:59] VITALS: BP 180/100
[2021-01-20] MEDS: diphenhydrAMINE 50MG CAP PO PRN (00:02)
[2021-01-20 00:45] VITALS: BP 136/85
[2021-01-20] MEDS: LORazepam 1 MG TAB PO PRN (00:57)
[2021-01-20] MEDS: LEVOTHYROXINE 100MCG TABLET (0.1MG) PO SCH (06:04)
[2021-01-20] MEDS: **hydrALAZINE HCL** 25 MG TAB PO SCH ×3 (06:13→22:00)
[2021-01-20] MEDS: GLIMEPIRIDE 2 MG TAB PO SCH ×2 (06:34→17:14)
[2021-01-20] MEDS: HumaLOG INSULIN (NovoLOG) PER UNIT SC SCH ×4 (06:35→21:00)
[2021-01-20 07:10] VITALS: BP 184/97
[2021-01-20] MEDS: FLUTICASONE PROP 0.05% NASAL SPRAY 16 GM (FLONASE) NARES SCH (09:53)
[2021-01-20] MEDS: ANALGESIC BALM CRM 3OZ TOP SCH ×3 (09:54→21:10)
[2021-01-20] MEDS: OMEGA-3 1000MG CAPSULE PO SCH (09:55)
[2021-01-20] MEDS: VITAMIN D (CHOLECALCIFEROL) 400 INTERNATIONAL UNITS TAB PO SCH (09:55)
[2021-01-20] MEDS: OMEPRAZOLE 20 MG CAP PO SCH (09:55)
[2021-01-20] MEDS: oxyBUTYnin 5 MG TAB PO SCH (09:55)
[2021-01-20] MEDS: ASPIRIN 81MG ENTERIC TABLET PO SCH (09:56)
[2021-01-20] MEDS: DOCUSATE SODIUM 100MG CAPSULE PO SCH ×2 (09:56→21:08)
[2021-01-20] MEDS: TAMSULOSIN 0.4 MG CAP PO SCH (09:56)
[2021-01-20] MEDS: atenoloL 25 MG TAB PO SCH ×2 (09:57→21:15)
[2021-01-20] MEDS: lamoTRIgine 100MG TAB PO SCH (09:57)
[2021-01-20] MEDS: BENZTROPINE 1 MG TAB PO SCH ×2 (09:57→21:08)
[2021-01-20] MEDS: ACETAMINOPHEN TAB 650MG DOSE (2X325MG) PO PRN (10:01)
[2021-01-20 10:53] VITALS: BP 144/92
--- NOTE | 2021-01-20 11:58 | MHIPNPDOC ---
[facility] Progress Note Progress Note DATE OF SERVICE: 01/20/21 HISTORY: Patient a 50 y/o man with a past history of bipolar disorder and numerous admissions since his 20's. Was d/c from [facility] Jan 2010 and living in [facility] since. Was admitted on this occasion due to disorganized and paranoid behavior. Currently remains in contact isolation due to possible exposure previous treatment nursing staff. Interval: Patient was calm today, but over the weekend as reportedly hypomanic and singing in the hallway per nursing staff and chart review. Today reports he is doing "good". Remains concrete with periods of hypomania. Denies any acute physical complaints or medication side effects. Understands pending placement. States he is frustrated with the phones are working, despite multiple patients using the phones without issue. VITAL SIGNS: See below. NEW TEST RESULTS: None CURRENT MEDICATIONS: See below. MENTAL STATUS EXAMINATION: Patient is a 50-year old male, wearing masks and glasses without redirection, no acute distress, elevated BMI, somewhat improved hygiene Speech: spontaneous, normal rate Language skills are poor. Thought processes including: Remains disorganized, tangential at times. Thought content: Denies Suicidal thoughts, intent or plan. Abstract reasoning, and computation: unable to fully assess. Description of associations: concrete Description of abnormal or psychotic thoughts: No change, continues to report chronic AH, Judgment: poor Insight: poor Orientation: to person, place, time Recent and remote memory: poor Attention span and concentration: Poor, distractible Language: Slovenian Fund of knowledge: Below average Mood: "I am fine doc" affect: No change, concrete, periods of hypomania, appropriate, makes jokes DIAGNOSES: 1. Schizoaffective disorder bipolar type 2. Hypertension started on a regimen of hydralazine, lisinopril, 3. Diabetes, glimepiride for elevated A1c of 6.9 4. Back pain, lidocaine patch ASSESSMENT: Continues to be pleasantly disorganized, concrete, redirectable, no aggressive behavior pending placement. Today had nursing contacted manual blood pressure and blood glucose, stable. MANAGEMENT PLAN: No change, continue medications. 6 months retention previously completed. Has Tylenol ordered and lidocaine patch for hip joint pain. Has AOT, pending [facility] placement. Patient is highly sensitive to any medication changes with rapid decompensation. Vitals stable on blood pressure medication regimen, put on by hospitalist team. TIME SPENT: 15 minutes. Vital Signs Vital Signs Date Time Temp Pulse Resp B/P (MAP) Pulse Ox O2 Delivery O2 Flow Rate FiO2 01/20/21 10:53 144/92 (109) 01/20/21 07:10 97.3 72 20 99 Room Air Laboratory Data 24H Labs Laboratory Tests 2 01/19/21 16:58: Bedside Glucose (Misc Panel) 157H 01/19/21 21:44: Bedside Glucose (Misc Panel) 166H 01/20/21 06:19: Bedside Glucose (Misc Panel) 143H Current Medications Current Medications Medications (Trade) Dose Ordered Sig/Kailey Route PRN Reason Start Time Stop Time Status Last Admin Dose Admin Acetaminophen (Tylenol Tab) 650 mg Q6HP PRN PO HEADACHE or MILD DISCOMFORT 12/01/20 16:05 01/20/21 10:01 Acetaminophen (Tylenol Tab) 650 mg Q6HP PRN PO HEADACHE or MILD DISCOMFORT 11/18/20 12:40 11/24/20 01:45 DC 11/23/20 03:09 Al Hydrox/Mg Hydrox/Simethicone (Mylanta) 30 ml Q4HP PRN PO HEARTBURN/INDIGESTION 11/18/20 12:40 11/24/20 01:45 DC 11/23/20 22:34 Amlodipine Besylate (Norvasc) 10 mg DAILY PO 11/19/20 09:00 11/22/20 08:55 DC 11/22/20 08:20 Aspirin (Ecotrin) 81 mg DAILY PO 11/24/20 09:00 01/20/21 09:56 Aspirin (Ecotrin) 81 mg QAM PO 11/22/20 09:00 11/24/20 01:45 DC 11/23/20 07:58 Atenolol (Tenormin) 25 mg BID PO 11/22/20 09:00 11/22/20 12:53 DC 11/22/20 09:51 Atenolol (Tenormin) 25 mg BID PO 11/24/20 09:00 01/20/21 09:57 Atenolol (Tenormin) 50 mg BID PO 11/22/20 21:00 11/24/20 00:13 DC 11/23/20 21:16 Atorvastatin Calcium (Lipitor) 40 mg QHS PO 11/18/20 21:00 11/24/20 01:45 DC 11/23/20 21:16 Atorvastatin Calcium (Lipitor) 40 mg QHS PO 11/24/20 21:00 01/19/21 23:26 Benztropine Mesylate (Cogentin) 1 mg BID PO 11/18/20 09:00 11/24/20 01:45 DC 11/23/20 21:15 Benztropine Mesylate (Cogentin) 1 mg BID PO 11/24/20 09:00 01/20/21 09:57 Cyclobenzaprine HCl (Flexeril) 10 mg QHS PO 11/20/20 21:00 11/24/20 01:45 DC 11/23/20 21:16 Cyclobenzaprine HCl (Flexeril) 10 mg QHS PO 11/24/20 21:00 01/19/21 23:37 Dextrose (Dextrose 50%) 25 ml ASDIRECTED PRN IV SEE LABEL COMMENTS 01/01/21 16:35 Diphenhydramine HCl (Benadryl) 50 mg Q8HP PRN PO AGITATION 11/19/20 09:10 11/24/20 01:45 DC 11/23/20 17:51 Diphenhydramine HCl (Benadryl) 50 mg Q8HP PRN PO AGITATION 11/24/20 10:55 01/20/21 00:02 Diphenhydramine HCl (Benadryl) 50 mg STAT STAT IM 11/26/20 02:41 11/26/20 02:44 DC 11/26/20 02:53 Diphenhydramine HCl (Benadryl) 50 mg STAT STAT PO 11/19/20 06:48 11/19/20 06:50 DC 11/19/20 07:06 Docusate Sodium (Colace) 100 mg BID PO 11/18/20 21:00 11/24/20 01:45 DC 11/23/20 21:15 Docusate Sodium (Colace) 100 mg BID PO 11/24/20 09:00 01/20/21 09:56 Fish Oil ([place]-3 (1000mg)) 1 cap DAILY PO 12/06/20 09:00 01/20/21 09:55 Fluticasone Propionate (Flonase 0.05% Nasal [place]) 2 spray DAILY NARES 11/19/20 09:00 11/24/20 01:45 DC 11/23/20 08:01 Fluticasone Propionate (Flonase 0.05% Nasal [place]) 2 spray DAILY NARES 11/24/20 09:00 01/20/21 09:53 Glimepiride (Amaryl) 2 mg BID@0730,1730 PO 01/13/21 17:30 01/20/21 06:34 Glucagon (Glucagon) 1 mg ASDIRECTED PRN SC SEE LABEL COMMENTS 01/01/21 16:35 Glucose (Glucose) 16 GM ASDIRECTED PRN PO SEE LABEL COMMENTS 01/01/21 16:35 Guaifenesin/ Dextromethorphan (Robitussin Dm) 10 ml Q4HP PRN PO COUGH 01/01/21 11:40 01/11/21 15:41 Haloperidol (Haldol) 10 mg Q8HP PRN PO AGITATION 11/19/20 09:10 11/24/20 01:45 DC 11/23/20 23:21 Haloperidol (Haldol) 10 mg Q8HP PRN PO AGITATION 11/24/20 10:55 01/15/21 21:20 Haloperidol (Haldol) 10 mg QHS PO 11/19/20 21:00 11/19/20 09:48 DC Haloperidol (Haldol) 10 mg QHS PO 11/19/20 21:00 11/24/20 01:45 DC 11/23/20 21:16 Haloperidol (Haldol) 10 mg QHS PO 11/24/20 21:00 12/11/20 10:47 DC 12/10/20 21:45 Haloperidol (Haldol) 10 mg QHS PO 12/19/20 21:00 01/19/21 23:26 Haloperidol (Haldol) 10 mg STAT STAT IM 11/26/20 02:41 11/26/20 02:44 DC 11/26/20 02:52 Haloperidol (Haldol) 10 mg STAT STAT PO 11/19/20 06:48 11/19/20 06:50 DC 11/19/20 07:06 Haloperidol (Haldol) 15 mg QHS PO 12/11/20 21:00 12/19/20 10:34 DC 12/18/20 20:05 Haloperidol Decanoate (Haldol Decanoate) 100 mg Q28D IM 11/28/20 12:00 9/9/21 12:49 Home Med (Med Rec Complete!) ASDIRECTED XX 11/17/20 23:25 11/17/20 23:24 DC Hydralazine HCl (Apresoline) 25 mg Q8H PO 01/13/21 14:00 01/20/21 06:13 Ibuprofen (Advil) 800 mg Q12H PO 01/08/21 21:00 01/12/21 16:02 DC 01/12/21 08:43 Ibuprofen (Advil) 800 mg Q8H PO 12/11/20 14:00 01/08/21 14:46 DC 01/08/21 13:01 Insulin Human Lispro (HumaLOG INSULIN) SEE PROTOCOL TABLE AC SC 01/01/21 17:30 01/20/21 06:35 Insulin Human Lispro (HumaLOG INSULIN) SEE PROTOCOL TABLE QHS SC 01/01/21 21:00 01/12/21 20:46 Lamotrigine (LaMICtal) 200 mg DAILY PO 11/18/20 09:00 11/24/20 01:45 DC 11/23/20 08:00 Lamotrigine (LaMICtal) 200 mg DAILY PO 11/24/20 09:00 01/20/21 09:57 Levothyroxine Sodium (Synthroid) 100 mcg DAILY@06 PO 11/24/20 06:00 01/20/21 06:04 Levothyroxine Sodium (Synthroid) 100 mcg DAILY@0600 PO 11/19/20 06:00 11/24/20 01:45 DC 11/23/20 05:05 Lidocaine (Lidoderm Patch) 1 patch DAILY TD 01/08/21 09:00 01/15/21 10:23 DC 01/15/21 08:38 Lidocaine (Lidoderm Patch) 2 patch DAILY TD 01/15/21 11:00 01/19/21 08:25 Lisinopril (Prinivil) 20 mg DAILY PO 01/13/21 09:00 01/20/21 09:56 Lorazepam (Ativan) 1 mg Q12HP PRN PO ANXIETY/AGITATION 01/13/21 12:50 01/13/21 12:52 DC Lorazepam (Ativan) 1 mg Q12HP PRN PO ANXIETY/AGITATION 01/13/21 12:52 01/20/21 00:57 Lorazepam (Ativan) 1 mg Q8HP PRN PO ANXIETY/AGITATION 01/13/21 12:50 01/13/21 12:51 DC Lorazepam (Ativan) 2 mg Q8HP PRN PO ANXIETY/AGITATION 12/02/20 12:05 01/13/21 12:47 DC 01/11/21 19:00 Lorazepam (Ativan) 2 mg Q8HP PRN PO AGITATION 11/19/20 09:10 11/24/20 01:45 DC 11/23/20 23:21 Lorazepam (Ativan) 2 mg Q8HP PRN PO AGITATION 11/24/20 10:55 12/01/20 10:54 DC 11/30/20 22:04 Lorazepam (Ativan) 2 mg STAT STAT IM 11/26/20 02:41 11/26/20 02:44 DC 11/26/20 02:53 Lorazepam (Ativan) 2 mg STAT STAT PO 11/19/20 06:48 11/19/20 06:50 DC 11/19/20 07:06 Losartan Potassium (Cozaar) 50 mg DAILY PO 11/19/20 09:00 11/22/20 08:55 DC 11/22/20 08:20 Magnesium Hydroxide (Milk Of Magnesia) 30 ml DAILYPRN PRN PO CONSTIPATION 11/18/20 12:40 11/24/20 01:45 DC Magnesium Hydroxide (Milk Of Magnesia) 30 ml DAILYPRN PRN PO CONSTIPATION 11/24/20 10:55 01/08/21 17:19 Magnesium Sulfate (Epsom Salt) 1 dose DAILY PRN TOP MILD DISCOMFORT 01/15/21 12:00 Menthol/Methyl Salicylate (Bengay Cream) Allow patient to apply t... BID PRN TOP MILD PAIN (PS 1-4) 12/19/20 11:40 01/01/21 12:36 DC 01/01/21 09:02 Menthol/Methyl Salicylate (Bengay Cream) Allow patient to apply t... TID TOP 01/01/21 16:00 01/20/21 09:54 Metformin HCl (Glucophage) 1,000 mg BID@08,18 PO 11/24/20 08:00 01/01/21 16:37 DC 01/01/21 07:34 Metformin HCl (Glucophage) 1,000 mg BID@0800,1800 PO 11/18/20 18:00 11/24/20 01:45 DC 11/23/20 17:34 Miscellaneous (Unresolved Clarification Entry) SEE LABEL COMMENTS DAILY XX 11/30/20 09:00 12/02/20 09:53 DC Miscellaneous (Unresolved Clarification Entry) SEE LABEL COMMENTS DAILY XX 12/02/20 09:00 12/02/20 12:12 DC Miscellaneous (Unresolved Clarification Entry) SEE LABEL COMMENTS DAILY XX 12/13/20 09:00 12/15/20 10:07 DC Miscellaneous (Unresolved Clarification Entry) SEE LABEL COMMENTS DAILY XX 12/30/20 09:00 12/30/20 15:31 DC Miscellaneous (Unresolved Clarification Entry) SEE LABEL COMMENTS DAILY XX 12/30/20 09:00 Cancel Miscellaneous (Unresolved Clarification Entry) SEE LABEL COMMENTS DAILY XX 01/07/21 09:00 01/08/21 07:30 DC Miscellaneous (Unresolved Clarification Entry) SEE LABEL COMMENTS DAILY XX 12/22/20 09:00 12/24/20 14:02 DC Miscellaneous (Unresolved Clarification Entry) SEE LABEL COMMENTS DAILY XX 01/18/21 09:00 Miscellaneous (Unresolved Patient Own Med Order) SEE LABEL COMMENTS UNRESOLVED XX 01/15/21 00:01 01/16/21 15:59 DC Montelukast Sodium (Singulair) 10 mg QHS PO 11/18/20 21:00 11/24/20 01:45 DC 11/23/20 21:15 Montelukast Sodium (Singulair) 10 mg QHS PO 11/24/20 21:00 01/19/21 23:26 Non-Formulary Medication ( See Comment Field Below ) REMOVE LIDODERM PATCH DAILY@ XX 01/06/21 21:00 01/06/21 23:59 DC 01/06/21 21:00 Non-Formulary Medication ( See Comment Field Below ) REMOVE LIDODERM PATCHES DAILY@ XX 01/08/21 21:00 01/19/21 21:00 Omeprazole (PriLOSEC) 20 mg DAILY PO 12/11/20 09:00 01/20/21 09:55 Oxybutynin Chloride (Ditropan) 5 mg DAILY PO 11/19/20 09:00 11/24/20 01:45 DC 11/23/20 08:00 Oxybutynin Chloride (Ditropan) 5 mg DAILY PO 11/24/20 09:00 01/20/21 09:55 Patient Own Medication (Patient'S Own Med) valbenazine (ingrezza)80MG CAP TAKE... DAILY PO 01/15/21 09:00 01/16/21 15:59 DC Propranolol HCl (Inderal) 10 mg BID PO 11/18/20 21:00 11/22/20 08:55 DC 11/22/20 08:20 Quetiapine Fumarate (SEROquel) 200 mg QHS PO 11/19/20 21:00 11/24/20 01:45 DC 11/23/20 21:15 Quetiapine Fumarate (SEROquel) 200 mg QHS PO 11/24/20 21:00 12/04/20 08:57 DC 12/03/20 20:20 Quetiapine Fumarate (SEROquel) 300 mg QHS PO 12/04/20 21:00 01/19/21 23:25 Saliva Substitute (Mouthkote) ASDIRECTED PRN MT DRY MOUTH 01/01/21 12:30 01/11/21 15:24 Tamsulosin HCl (Flomax) 0.8 mg DAILY PO 11/19/20 09:00 11/24/20 01:45 DC 11/23/20 08:01 Tamsulosin HCl (Flomax) 0.8 mg DAILY PO 11/24/20 09:00 01/20/21 09:56 Trazodone HCl (Desyrel) 50 mg QPM PO 01/06/21 21:00 01/19/21 23:26 Trazodone HCl (Desyrel) 100 mg QPM PO 11/18/20 21:00 11/24/20 01:45 DC 11/23/20 21:16 Trazodone HCl (Desyrel) 100 mg QPM PO 11/24/20 21:00 01/06/21 10:12 DC 01/05/21 20:36 Vitamin D (Vitamin D) 400 units DAILY PO 11/19/20 09:00 11/24/20 01:45 DC 11/23/20 08:00 Vitamin D (Vitamin D) 400 units DAILY PO 11/24/20 09:00 01/20/21 09:55 Allergies Coded Allergies: Penicillins (Verified Allergy, Intermediate, rash, 01/02/19) latex (Verified Allergy, Intermediate, rash, 12/13/19) divalproex sodium (Verified Allergy, Unknown, 01/02/19) AYESHA MOLINA MD Jan 20, 2021 11:57
[2021-01-20] MEDS: LIDOCAINE 5% (LIDODERM) PATCH TD SCH (12:09)
[2021-01-20 17:46] VITALS: BP 144/90
[2021-01-20] MEDS: ATORVASTATIN 20 MG TAB PO SCH (21:08)
[2021-01-20] MEDS: CYCLOBENZAPRINE 10MG TABLET PO SCH (21:08)
[2021-01-20] MEDS: haloperidoL 5 MG TAB PO SCH (21:08)
[2021-01-20] MEDS: traZODone 50 MG TAB PO SCH (21:12)
[2021-01-20] MEDS: QUEtiapine FUMARATE 100 MG TAB PO SCH (21:12)
[2021-01-20] MEDS: MONTELUKAST 10 MG TAB PO SCH (21:12)
[2021-01-20] MEDS: **NOTE PATIENT COMMENT** MISC XX SCH (21:19)
[2021-01-21] MEDS: ACETAMINOPHEN TAB 650MG DOSE (2X325MG) PO PRN ×3 (02:08→21:01)
[2021-01-21] MEDS: LEVOTHYROXINE 100MCG TABLET (0.1MG) PO SCH (06:25)
[2021-01-21 06:41] VITALS: BP 144/86
[2021-01-21] MEDS: **hydrALAZINE HCL** 25 MG TAB PO SCH ×3 (06:41→22:00)
[2021-01-21] MEDS: HumaLOG INSULIN (NovoLOG) PER UNIT SC SCH ×4 (06:50→21:00)
[2021-01-21] MEDS: GLIMEPIRIDE 2 MG TAB PO SCH ×2 (07:48→16:33)
[2021-01-21] MEDS: FLUTICASONE PROP 0.05% NASAL SPRAY 16 GM (FLONASE) NARES SCH (09:51)
[2021-01-21] MEDS: ANALGESIC BALM CRM 3OZ TOP SCH ×3 (09:52→21:00)
[2021-01-21] MEDS: LIDOCAINE 5% (LIDODERM) PATCH TD SCH (09:53)
[2021-01-21] MEDS: DOCUSATE SODIUM 100MG CAPSULE PO SCH ×2 (09:53→21:55)
[2021-01-21] MEDS: BENZTROPINE 1 MG TAB PO SCH ×2 (09:53→21:57)
[2021-01-21] MEDS: OMEGA-3 1000MG CAPSULE PO SCH (09:53)
[2021-01-21] MEDS: VITAMIN D (CHOLECALCIFEROL) 400 INTERNATIONAL UNITS TAB PO SCH (09:53)
[2021-01-21] MEDS: TAMSULOSIN 0.4 MG CAP PO SCH (09:53)
[2021-01-21] MEDS: oxyBUTYnin 5 MG TAB PO SCH (09:53)
[2021-01-21] MEDS: lamoTRIgine 100MG TAB PO SCH (09:53)
[2021-01-21] MEDS: OMEPRAZOLE 20 MG CAP PO SCH (09:54)
[2021-01-21] MEDS: ASPIRIN 81MG ENTERIC TABLET PO SCH (09:54)
[2021-01-21] MEDS: atenoloL 25 MG TAB PO SCH ×2 (10:02→21:56)
[2021-01-21] MEDS: guaiFENesin DM LIQ 10ML UD PO PRN ×3 (10:50→21:00)
--- NOTE | 2021-01-21 12:51 | MHIPNPDOC ---
[facility] Progress Note Progress Note DATE OF SERVICE: 01/21/21 HISTORY: Patient a 50 y/o man with a past history of bipolar disorder and numerous admissions since his 20's. Was [place] [facility] and living in [facility] since. Was admitted on this occasion due to disorganized and paranoid behavior. Currently remains in contact isolation due to possible exposure previous treatment nursing staff. Interval: Patient was seen today in his room and in the hallway, had been getting sleep last night and was sleeping late into the morning. Continues to attend groups. Reported sore throat today and was given Robitussin, states helped with the sore throat, denies rash, ordered a CBC with differential. Vitals have remained stable per chart review. Otherwise no acute physical complaints. Continues to be hypomanic and concrete, acutely psychotic and disorganized at times, pending placement, reports hearing chronic voices, but states they are almost indiscernible today. No aggression or agitation noted on the unit, has been redirectable today VITAL SIGNS: See below. NEW TEST RESULTS: None CURRENT MEDICATIONS: See below. MENTAL STATUS EXAMINATION: Patient is a 50-year old male, wearing masks and glasses without redirection, no acute distress, elevated BMI, somewhat improved hygiene Speech: spontaneous, normal rate Language skills are poor. Thought processes including: Remains disorganized, concrete Thought content: Denies Suicidal thoughts, intent or plan. Abstract reasoning, and computation: Poor Description of associations: concrete Description of abnormal or psychotic thoughts: No change, continues to report chronic AH, less bothersome recently Judgment: poor Insight: poor Orientation: to person, place, time Recent and remote memory: poor Attention span and concentration: Poor, distractible Language: Greek Fund of knowledge: Below average Mood: "okay" affect: Hypomanic, today more depressed, grossly psychotic at times, less labile than previous days DIAGNOSES: 1. Schizoaffective disorder bipolar type 2. Hypertension started on a regimen of hydralazine, lisinopril, 3. Diabetes, supp. glimepiride, insulin sliding scale 4. Back pain, lidocaine patch 5. sore throat ASSESSMENT: No change: continues to be pleasantly disorganized, concrete, hypomanic and depressed at times, redirectable, no aggressive behavior, pending placement. Today had nursing contacted manual blood pressure and blood glucose, stable. MANAGEMENT PLAN: No change, continue medications. 6 months retention previously completed. Ordered CBC with differential due to reported sore throat, as he takes Lamictal, no rash reported. Has Tylenol and lidocaine patch for hip joint pain, which reportedly has improved. Has Robitussin and Flomax for sore throat, congestion, states symptoms have improved with medications. Has AOT, pending [facility] placement. Patient is highly sensitive to any medication changes with rapid decompensation. Vitals continue to be stable on blood pressure medication regimen, put on by hospitalist team. TIME SPENT: 20 minutes. Vital Signs Vital Signs Date Time Temp Pulse Resp B/P (MAP) Pulse Ox O2 Delivery O2 Flow Rate FiO2 01/21/21 10:03 130/74 01/21/21 10:02 84 01/21/21 06:41 97.4 14 95 Room Air Laboratory Data 24H Labs Laboratory Tests 2 01/20/21 17:09: Bedside Glucose (Misc Panel) 192H 01/20/21 21:03: Bedside Glucose (Misc Panel) 178H 01/21/21 06:35: Bedside Glucose (Misc Panel) 136H 01/21/21 11:56: Bedside Glucose (Misc Panel) 160H Current Medications Current Medications Medications (Trade) Dose Ordered Sig/Kailey Route PRN Reason Start Time Stop Time Status Last Admin Dose Admin Acetaminophen (Tylenol Tab) 650 mg Q6HP PRN PO HEADACHE or MILD DISCOMFORT 12/01/20 16:05 01/21/21 02:08 Acetaminophen (Tylenol Tab) 650 mg Q6HP PRN PO HEADACHE or MILD DISCOMFORT 11/18/20 12:40 11/24/20 01:45 DC 11/23/20 03:09 Al Hydrox/Mg Hydrox/Simethicone (Mylanta) 30 ml Q4HP PRN PO HEARTBURN/INDIGESTION 11/18/20 12:40 11/24/20 01:45 DC 11/23/20 22:34 Amlodipine Besylate (Norvasc) 10 mg DAILY PO 11/19/20 09:00 11/22/20 08:55 DC 11/22/20 08:20 Aspirin (Ecotrin) 81 mg DAILY PO 11/24/20 09:00 01/21/21 09:54 Aspirin (Ecotrin) 81 mg QAM PO 11/22/20 09:00 11/24/20 01:45 DC 11/23/20 07:58 Atenolol (Tenormin) 25 mg BID PO 11/22/20 09:00 11/22/20 12:53 DC 11/22/20 09:51 Atenolol (Tenormin) 25 mg BID PO 11/24/20 09:00 01/21/21 10:02 Atenolol (Tenormin) 50 mg BID PO 11/22/20 21:00 11/24/20 00:13 DC 11/23/20 21:16 Atorvastatin Calcium (Lipitor) 40 mg QHS PO 11/18/20 21:00 11/24/20 01:45 DC 11/23/20 21:16 Atorvastatin Calcium (Lipitor) 40 mg QHS PO 11/24/20 21:00 01/20/21 21:08 Benztropine Mesylate (Cogentin) 1 mg BID PO 11/18/20 09:00 11/24/20 01:45 DC 11/23/20 21:15 Benztropine Mesylate (Cogentin) 1 mg BID PO 11/24/20 09:00 01/21/21 09:53 Cyclobenzaprine HCl (Flexeril) 10 mg QHS PO 11/20/20 21:00 11/24/20 01:45 DC 11/23/20 21:16 Cyclobenzaprine HCl (Flexeril) 10 mg QHS PO 11/24/20 21:00 01/20/21 21:08 Dextrose (Dextrose 50%) 25 ml ASDIRECTED PRN IV SEE LABEL COMMENTS 01/01/21 16:35 Diphenhydramine HCl (Benadryl) 50 mg Q8HP PRN PO AGITATION 11/19/20 09:10 11/24/20 01:45 DC 11/23/20 17:51 Diphenhydramine HCl (Benadryl) 50 mg Q8HP PRN PO AGITATION 11/24/20 10:55 01/20/21 00:02 Diphenhydramine HCl (Benadryl) 50 mg STAT STAT IM 11/26/20 02:41 11/26/20 02:44 DC 11/26/20 02:53 Diphenhydramine HCl (Benadryl) 50 mg STAT STAT PO 11/19/20 06:48 11/19/20 06:50 DC 11/19/20 07:06 Docusate Sodium (Colace) 100 mg BID PO 11/18/20 21:00 11/24/20 01:45 DC 11/23/20 21:15 Docusate Sodium (Colace) 100 mg BID PO 11/24/20 09:00 01/21/21 09:53 Fish Oil ([place]-3 (1000mg)) 1 cap DAILY PO 12/06/20 09:00 01/21/21 09:53 Fluticasone Propionate (Flonase 0.05% Nasal [place]) 2 spray DAILY NARES 11/19/20 09:00 11/24/20 01:45 DC 11/23/20 08:01 Fluticasone Propionate (Flonase 0.05% Nasal [place]) 2 spray DAILY NARES 11/24/20 09:00 01/21/21 09:51 Glimepiride (Amaryl) 2 mg BID@0730,1730 PO 01/13/21 17:30 01/21/21 07:48 Glucagon (Glucagon) 1 mg ASDIRECTED PRN SC SEE LABEL COMMENTS 01/01/21 16:35 Glucose (Glucose) 16 GM ASDIRECTED PRN PO SEE LABEL COMMENTS 01/01/21 16:35 Guaifenesin/ Dextromethorphan (Robitussin Dm) 10 ml Q4HP PRN PO COUGH 01/01/21 11:40 01/21/21 10:50 Haloperidol (Haldol) 10 mg Q8HP PRN PO AGITATION 11/19/20 09:10 11/24/20 01:45 DC 11/23/20 23:21 Haloperidol (Haldol) 10 mg Q8HP PRN PO AGITATION 11/24/20 10:55 01/15/21 21:20 Haloperidol (Haldol) 10 mg QHS PO 11/19/20 21:00 11/19/20 09:48 DC Haloperidol (Haldol) 10 mg QHS PO 11/19/20 21:00 11/24/20 01:45 DC 11/23/20 21:16 Haloperidol (Haldol) 10 mg QHS PO 11/24/20 21:00 12/11/20 10:47 DC 12/10/20 21:45 Haloperidol (Haldol) 10 mg QHS PO 12/19/20 21:00 01/20/21 21:08 Haloperidol (Haldol) 10 mg STAT STAT IM 11/26/20 02:41 11/26/20 02:44 DC 11/26/20 02:52 Haloperidol (Haldol) 10 mg STAT STAT PO 11/19/20 06:48 11/19/20 06:50 DC 11/19/20 07:06 Haloperidol (Haldol) 15 mg QHS PO 12/11/20 21:00 12/19/20 10:34 DC 12/18/20 20:05 Haloperidol Decanoate (Haldol Decanoate) 100 mg Q28D IM 11/28/20 12:00 12/26/20 12:49 Home Med (Med Rec Complete!) ASDIRECTED XX 11/17/20 23:25 11/17/20 23:24 DC Hydralazine HCl (Apresoline) 25 mg Q8H PO 01/13/21 14:00 01/21/21 06:41 Ibuprofen (Advil) 800 mg Q12H PO 01/08/21 21:00 01/12/21 16:02 DC 01/12/21 08:43 Ibuprofen (Advil) 800 mg Q8H PO 12/11/20 14:00 01/08/21 14:46 DC 01/08/21 13:01 Insulin Human Lispro (HumaLOG INSULIN) SEE PROTOCOL TABLE AC SC 01/01/21 17:30 01/21/21 12:01 Insulin Human Lispro (HumaLOG INSULIN) SEE PROTOCOL TABLE QHS SC 01/01/21 21:00 01/12/21 20:46 Lamotrigine (LaMICtal) 200 mg DAILY PO 11/18/20 09:00 11/24/20 01:45 DC 11/23/20 08:00 Lamotrigine (LaMICtal) 200 mg DAILY PO 11/24/20 09:00 01/21/21 09:53 Levothyroxine Sodium (Synthroid) 100 mcg DAILY@06 PO 11/24/20 06:00 01/21/21 06:25 Levothyroxine Sodium (Synthroid) 100 mcg DAILY@0600 PO 11/19/20 06:00 11/24/20 01:45 DC 11/23/20 05:05 Lidocaine (Lidoderm Patch) 1 patch DAILY TD 01/08/21 09:00 01/15/21 10:23 DC 01/15/21 08:38 Lidocaine (Lidoderm Patch) 2 patch DAILY TD 01/15/21 11:00 01/21/21 09:53 Lisinopril (Prinivil) 20 mg DAILY PO 01/13/21 09:00 01/21/21 10:03 Lorazepam (Ativan) 1 mg Q12HP PRN PO ANXIETY/AGITATION 01/13/21 12:50 01/13/21 12:52 DC Lorazepam (Ativan) 1 mg Q12HP PRN PO ANXIETY/AGITATION 01/13/21 12:52 01/21/21 11:25 DC 01/20/21 00:57 Lorazepam (Ativan) 1 mg Q12HP PRN PO ANXIETY/AGITATION 01/21/21 11:25 Lorazepam (Ativan) 1 mg Q8HP PRN PO ANXIETY/AGITATION 01/13/21 12:50 01/13/21 12:51 DC Lorazepam (Ativan) 2 mg Q8HP PRN PO ANXIETY/AGITATION 12/02/20 12:05 01/13/21 12:47 DC 01/11/21 19:00 Lorazepam (Ativan) 2 mg Q8HP PRN PO AGITATION 11/19/20 09:10 11/24/20 01:45 DC 11/23/20 23:21 Lorazepam (Ativan) 2 mg Q8HP PRN PO AGITATION 11/24/20 10:55 12/01/20 10:54 DC 11/30/20 22:04 Lorazepam (Ativan) 2 mg STAT STAT IM 11/26/20 02:41 11/26/20 02:44 DC 11/26/20 02:53 Lorazepam (Ativan) 2 mg STAT STAT PO 11/19/20 06:48 11/19/20 06:50 DC 11/19/20 07:06 Losartan Potassium (Cozaar) 50 mg DAILY PO 11/19/20 09:00 11/22/20 08:55 DC 11/22/20 08:20 Magnesium Hydroxide (Milk Of Magnesia) 30 ml DAILYPRN PRN PO CONSTIPATION 11/18/20 12:40 11/24/20 01:45 DC Magnesium Hydroxide (Milk Of Magnesia) 30 ml DAILYPRN PRN PO CONSTIPATION 11/24/20 10:55 01/08/21 17:19 Magnesium Sulfate (Epsom Salt) 1 dose DAILY PRN TOP MILD DISCOMFORT 01/15/21 12:00 Menthol/Methyl Salicylate (Bengay Cream) Allow patient to apply t... BID PRN TOP MILD PAIN (PS 1-4) 12/19/20 11:40 01/01/21 12:36 DC 01/01/21 09:02 Menthol/Methyl Salicylate (Bengay Cream) Allow patient to apply t... TID TOP 01/01/21 16:00 01/21/21 09:52 Metformin HCl (Glucophage) 1,000 mg BID@08,18 PO 11/24/20 08:00 01/01/21 16:37 DC 01/01/21 07:34 Metformin HCl (Glucophage) 1,000 mg BID@0800,1800 PO 11/18/20 18:00 11/24/20 01:45 DC 11/23/20 17:34 Miscellaneous (Unresolved Clarification Entry) SEE LABEL COMMENTS DAILY XX 11/30/20 09:00 12/02/20 09:53 DC Miscellaneous (Unresolved Clarification Entry) SEE LABEL COMMENTS DAILY XX 12/02/20 09:00 12/02/20 12:12 DC Miscellaneous (Unresolved Clarification Entry) SEE LABEL COMMENTS DAILY XX 12/13/20 09:00 12/15/20 10:07 DC Miscellaneous (Unresolved Clarification Entry) SEE LABEL COMMENTS DAILY XX 12/30/20 09:00 12/30/20 15:31 DC Miscellaneous (Unresolved Clarification Entry) SEE LABEL COMMENTS DAILY XX 12/30/20 09:00 Cancel Miscellaneous (Unresolved Clarification Entry) SEE LABEL COMMENTS DAILY XX 01/07/21 09:00 01/08/21 07:30 DC Miscellaneous (Unresolved Clarification Entry) SEE LABEL COMMENTS DAILY XX 12/22/20 09:00 12/24/20 14:02 DC Miscellaneous (Unresolved Clarification Entry) SEE LABEL COMMENTS DAILY XX 01/18/21 09:00 01/21/21 10:25 DC Miscellaneous (Unresolved Patient Own Med Order) SEE LABEL COMMENTS UNRESOLVED XX 01/15/21 00:01 01/16/21 15:59 DC Montelukast Sodium (Singulair) 10 mg QHS PO 11/18/20 21:00 11/24/20 01:45 DC 11/23/20 21:15 Montelukast Sodium (Singulair) 10 mg QHS PO 11/24/20 21:00 01/20/21 21:12 Non-Formulary Medication ( See Comment Field Below ) REMOVE LIDODERM PATCH DAILY@21 XX 01/06/21 21:00 01/06/21 23:59 DC 01/06/21 21:00 Non-Formulary Medication ( See Comment Field Below ) REMOVE LIDODERM PATCHES DAILY@ XX 01/08/21 21:00 01/20/21 21:19 Omeprazole (PriLOSEC) 20 mg DAILY PO 12/11/20 09:00 01/21/21 09:54 Oxybutynin Chloride (Ditropan) 5 mg DAILY PO 11/19/20 09:00 11/24/20 01:45 DC 11/23/20 08:00 Oxybutynin Chloride (Ditropan) 5 mg DAILY PO 11/24/20 09:00 01/21/21 09:53 Patient Own Medication (Patient'S Own Med) valbenazine (ingrezza)80MG CAP TAKE... DAILY PO 01/15/21 09:00 01/16/21 15:59 DC Propranolol HCl (Inderal) 10 mg BID PO 11/18/20 21:00 11/22/20 08:55 DC 11/22/20 08:20 Quetiapine Fumarate (SEROquel) 200 mg QHS PO 11/19/20 21:00 11/24/20 01:45 DC 11/23/20 21:15 Quetiapine Fumarate (SEROquel) 200 mg QHS PO 11/24/20 21:00 12/04/20 08:57 DC 12/03/20 20:20 Quetiapine Fumarate (SEROquel) 300 mg QHS PO 12/04/20 21:00 01/20/21 21:12 Saliva Substitute (Mouthkote) ASDIRECTED PRN MT DRY MOUTH 01/01/21 12:30 01/11/21 15:24 Tamsulosin HCl (Flomax) 0.8 mg DAILY PO 11/19/20 09:00 11/24/20 01:45 DC 11/23/20 08:01 Tamsulosin HCl (Flomax) 0.8 mg DAILY PO 11/24/20 09:00 01/21/21 09:53 Trazodone HCl (Desyrel) 50 mg QPM PO 01/06/21 21:00 01/20/21 21:12 Trazodone HCl (Desyrel) 100 mg QPM PO 11/18/20 21:00 11/24/20 01:45 DC 11/23/20 21:16 Trazodone HCl (Desyrel) 100 mg QPM PO 11/24/20 21:00 01/06/21 10:12 DC 01/05/21 20:36 Vitamin D (Vitamin D) 400 units DAILY PO 11/19/20 09:00 11/24/20 01:45 DC 11/23/20 08:00 Vitamin D (Vitamin D) 400 units DAILY PO 11/24/20 09:00 01/21/21 09:53 Allergies Coded Allergies: Penicillins (Verified Allergy, Intermediate, rash, 01/02/19) latex (Verified Allergy, Intermediate, rash, 12/13/19) divalproex sodium (Verified Allergy, Unknown, 01/02/19) AYESHA MOLINA MD Jan 21, 2021 12:51
[2021-01-21 13:12] LABS: BASO # 0.1 10^3/uL (0.0-0.2); BASO % 0.5 % (0.0-1.0); EOS # 0.4 10^3/uL (0.0-0.5); EOS % 3.4 % (0.0-3.0); HEMATOCRIT 45.1 % (42.0-52.0); HEMOGLOBIN 14.4 g/dl (13.5-17.5); LYMPH # 1.3 10^3/uL (1.5-5.0); LYMPH % 10.9 % (24.0-44.0); MEAN CORPUSCULAR HEMOGLOBIN 27.4 pg (27.0-33.0); MEAN CORPUSCULAR HGB CONC 31.9 g/dl (32.0-36.5); MEAN CORPUSCULAR VOLUME 85.9 fl (80.0-96.0); MONO % 8.4 % (2.0-8.0); NEUTROPHILS # 8.9 10^3/uL (1.5-8.5); NEUTROPHILS % 75.7 % (36.0-66.0); PLATELET COUNT, AUTOMATED 273 10^3/uL (150-450); RED BLOOD COUNT 5.25 10^6/uL (4.30-6.10); WHITE BLOOD COUNT 11.7 10^3/uL (4.0-10.0)
[2021-01-21 19:24] VITALS: BP 156/94
[2021-01-21] MEDS: diphenhydrAMINE 50MG CAP PO PRN (21:00)
[2021-01-21] MEDS: QUEtiapine FUMARATE 100 MG TAB PO SCH (21:54)
[2021-01-21] MEDS: haloperidoL 5 MG TAB PO SCH (21:54)
[2021-01-21] MEDS: MONTELUKAST 10 MG TAB PO SCH (21:57)
[2021-01-21] MEDS: ATORVASTATIN 20 MG TAB PO SCH (21:57)
[2021-01-21] MEDS: traZODone 50 MG TAB PO SCH (21:57)
[2021-01-21] MEDS: CYCLOBENZAPRINE 10MG TABLET PO SCH (21:57)
[2021-01-21] MEDS: **NOTE PATIENT COMMENT** MISC XX SCH (21:59)
[2021-01-21] MEDS: LORazepam 1 MG TAB PO PRN (23:19)
[2021-01-22 06:00] VITALS: BP 143/67
[2021-01-22] MEDS: **hydrALAZINE HCL** 25 MG TAB PO SCH ×3 (06:00→21:07)
[2021-01-22] MEDS: GLIMEPIRIDE 2 MG TAB PO SCH ×2 (06:47→17:32)
[2021-01-22] MEDS: LEVOTHYROXINE 100MCG TABLET (0.1MG) PO SCH (06:47)
[2021-01-22] MEDS: HumaLOG INSULIN (NovoLOG) PER UNIT SC SCH ×4 (06:55→21:00)
[2021-01-22] MEDS: LIDOCAINE 5% (LIDODERM) PATCH TD SCH (09:54)
[2021-01-22] MEDS: ASPIRIN 81MG ENTERIC TABLET PO SCH (09:55)
[2021-01-22] MEDS: FLUTICASONE PROP 0.05% NASAL SPRAY 16 GM (FLONASE) NARES SCH (09:55)
[2021-01-22] MEDS: ANALGESIC BALM CRM 3OZ TOP SCH ×3 (09:55→21:10)
[2021-01-22] MEDS: VITAMIN D (CHOLECALCIFEROL) 400 INTERNATIONAL UNITS TAB PO SCH (09:55)
[2021-01-22] MEDS: DOCUSATE SODIUM 100MG CAPSULE PO SCH ×2 (09:55→21:10)
[2021-01-22] MEDS: OMEPRAZOLE 20 MG CAP PO SCH (09:56)
[2021-01-22] MEDS: TAMSULOSIN 0.4 MG CAP PO SCH (09:56)
[2021-01-22] MEDS: lamoTRIgine 100MG TAB PO SCH (09:56)
[2021-01-22] MEDS: BENZTROPINE 1 MG TAB PO SCH ×2 (09:56→21:10)
[2021-01-22] MEDS: oxyBUTYnin 5 MG TAB PO SCH (09:56)
[2021-01-22] MEDS: atenoloL 25 MG TAB PO SCH ×2 (10:18→21:11)
[2021-01-22] MEDS: OMEGA-3 1000MG CAPSULE PO SCH (10:21)
[2021-01-22] MEDS: ACETAMINOPHEN TAB 650MG DOSE (2X325MG) PO PRN ×2 (10:35→21:12)
--- NOTE | 2021-01-22 14:51 | MHIPNPDOC ---
[facility] Progress Note Progress Note DATE OF SERVICE: 01/22/21 HISTORY: Patient a 50 y/o man with a past history of bipolar disorder and numerous admissions since his 20's. Was d/c from [facility] Jan 2010 and living in [facility] since. Was admitted on this occasion due to disorganized and paranoid behavior. Currently remains in contact isolation due to possible exposure previous treatment nursing staff. Interval: Condition continues to be unchanged, hypomanic last night and depressed today, continues to be concrete and disorganized despite medications. patient was seen in bed today, reports worsening sore throat despite Robitussin and other treatments, reports he is feeling stuffed up and groggy, has a hard time describing symptoms as he concrete and disorganized. He also reports staying up late last night with hypomanic episode, and sleeping in this morning. Otherwise denies acute complaints. Reports tolerated medications well without side effects. VITAL SIGNS: See below. NEW TEST RESULTS: CBC shows elevated white blood cell count of 11 and increased neutrophil percentage 75% CURRENT MEDICATIONS: See below. MENTAL STATUS EXAMINATION: Patient is a 50-year old male, wearing masks and glasses without redirection, no acute distress, elevated BMI, somewhat improved hygiene Speech: spontaneous, normal rate Language skills are poor. Thought processes including: Remains disorganized, concrete Thought content: Denies Suicidal thoughts, intent or plan. Abstract reasoning, and computation: Poor Description of associations: concrete Description of abnormal or psychotic thoughts: No change, continues to report chronic AH, less bothersome recently Judgment: poor Insight: poor Orientation: to person, place, time Recent and remote memory: poor Attention span and concentration: Poor, distractible Language: Greek Fund of knowledge: Below average Mood: "Up and down" affect: Dysthymic, concrete, disorganized, DIAGNOSES: 1. Schizoaffective disorder bipolar type 2. Hypertension started on a regimen of hydralazine, lisinopril, 3. Diabetes, supp. glimepiride, insulin sliding scale 4. Back pain, lidocaine patch 5. sore throat ASSESSMENT: No change significant change: continues to be pleasantly disorganized, concrete, hypomanic last night, reports depression today with low mood, was seen isolating more to room in the morning, redirectable, no aggressive behavior, pending placement. Today fingerstick glucose 188/dL, blood pressure only mildly elevated 130s over 60s. Denies shortness of breath or chest pain, order endorses stuffiness, patient currently poor historian when describing physical symptoms. MANAGEMENT PLAN: No change, continue medications. Denies rash, has elevated white count and increased neutrophil percentage, consulted hospitalist team to evaluate patient when convenient. 6 months retention previously completed. Has Tylenol and lidocaine patch for hip joint pain, which reportedly has improved. Has Robitussin and Flomax for sore throat, congestion, states symptoms have improved with medications. Has AOT, [facility]. Patient is highly sensitive to any medication changes with rapid decompensation. Vitals continue to be stable on blood pressure medication regimen, put on by hospitalist team. TIME SPENT: 15 minutes. Vital Signs Vital Signs Date Time Temp Pulse Resp B/P (MAP) Pulse Ox O2 Delivery O2 Flow Rate FiO2 01/22/21 14:00 136/80 01/22/21 10:18 86 01/22/21 06:00 97.8 20 96 01/21/21 06:41 Room Air Laboratory Data 24H Labs Laboratory Tests 2 01/21/21 16:27: Bedside Glucose (Misc Panel) 160H 01/21/21 20:53: Bedside Glucose (Misc Panel) 188H 01/22/21 06:25: Bedside Glucose (Misc Panel) 156H 01/22/21 11:49: Bedside Glucose (Misc Panel) 245H Current Medications Current Medications Medications (Trade) Dose Ordered Sig/Kailey Route PRN Reason Start Time Stop Time Status Last Admin Dose Admin Acetaminophen (Tylenol Tab) 650 mg Q6HP PRN PO HEADACHE or MILD DISCOMFORT 12/01/20 16:05 01/22/21 10:35 Acetaminophen (Tylenol Tab) 650 mg Q6HP PRN PO HEADACHE or MILD DISCOMFORT 11/18/20 12:40 11/24/20 01:45 DC 11/23/20 03:09 Al Hydrox/Mg Hydrox/Simethicone (Mylanta) 30 ml Q4HP PRN PO HEARTBURN/INDIGESTION 11/18/20 12:40 11/24/20 01:45 DC 11/23/20 22:34 Amlodipine Besylate (Norvasc) 10 mg DAILY PO 11/19/20 09:00 11/22/20 08:55 DC 11/22/20 08:20 Aspirin (Ecotrin) 81 mg DAILY PO 11/24/20 09:00 01/22/21 09:55 Aspirin (Ecotrin) 81 mg QAM PO 11/22/20 09:00 11/24/20 01:45 DC 11/23/20 07:58 Atenolol (Tenormin) 25 mg BID PO 11/22/20 09:00 11/22/20 12:53 DC 11/22/20 09:51 Atenolol (Tenormin) 25 mg BID PO 11/24/20 09:00 01/22/21 10:18 Atenolol (Tenormin) 50 mg BID PO 11/22/20 21:00 11/24/20 00:13 DC 11/23/20 21:16 Atorvastatin Calcium (Lipitor) 40 mg QHS PO 11/18/20 21:00 11/24/20 01:45 DC 11/23/20 21:16 Atorvastatin Calcium (Lipitor) 40 mg QHS PO 11/24/20 21:00 01/21/21 21:57 Benztropine Mesylate (Cogentin) 1 mg BID PO 11/18/20 09:00 11/24/20 01:45 DC 11/23/20 21:15 Benztropine Mesylate (Cogentin) 1 mg BID PO 11/24/20 09:00 01/22/21 09:56 Cyclobenzaprine HCl (Flexeril) 10 mg QHS PO 11/20/20 21:00 11/24/20 01:45 DC 11/23/20 21:16 Cyclobenzaprine HCl (Flexeril) 10 mg QHS PO 11/24/20 21:00 01/21/21 21:57 Dextrose (Dextrose 50%) 25 ml ASDIRECTED PRN IV SEE LABEL COMMENTS 01/01/21 16:35 Diphenhydramine HCl (Benadryl) 50 mg Q8HP PRN PO AGITATION 11/19/20 09:10 11/24/20 01:45 DC 11/23/20 17:51 Diphenhydramine HCl (Benadryl) 50 mg Q8HP PRN PO AGITATION 11/24/20 10:55 01/21/21 21:00 Diphenhydramine HCl (Benadryl) 50 mg STAT STAT IM 11/26/20 02:41 11/26/20 02:44 DC 11/26/20 02:53 Diphenhydramine HCl (Benadryl) 50 mg STAT STAT PO 11/19/20 06:48 11/19/20 06:50 DC 11/19/20 07:06 Docusate Sodium (Colace) 100 mg BID PO 11/18/20 21:00 11/24/20 01:45 DC 11/23/20 21:15 Docusate Sodium (Colace) 100 mg BID PO 11/24/20 09:00 01/22/21 09:55 Fish Oil ([place]-3 (1000mg)) 1 cap DAILY PO 12/06/20 09:00 01/22/21 10:21 Fluticasone Propionate (Flonase 0.05% Nasal [place]) 2 spray DAILY NARES 11/19/20 09:00 11/24/20 01:45 DC 11/23/20 08:01 Fluticasone Propionate (Flonase 0.05% Nasal [place]) 2 spray DAILY NARES 11/24/20 09:00 01/22/21 09:55 Glimepiride (Amaryl) 2 mg BID@0730,1730 PO 01/13/21 17:30 01/22/21 06:47 Glucagon (Glucagon) 1 mg ASDIRECTED PRN SC SEE LABEL COMMENTS 01/01/21 16:35 Glucose (Glucose) 16 GM ASDIRECTED PRN PO SEE LABEL COMMENTS 01/01/21 16:35 Guaifenesin/ Dextromethorphan (Robitussin Dm) 10 ml Q4HP PRN PO COUGH 01/01/21 11:40 01/21/21 21:00 Haloperidol (Haldol) 10 mg Q8HP PRN PO AGITATION 11/19/20 09:10 11/24/20 01:45 DC 11/23/20 23:21 Haloperidol (Haldol) 10 mg Q8HP PRN PO AGITATION 11/24/20 10:55 01/15/21 21:20 Haloperidol (Haldol) 10 mg QHS PO 11/19/20 21:00 11/19/20 09:48 DC Haloperidol (Haldol) 10 mg QHS PO 11/19/20 21:00 11/24/20 01:45 DC 11/23/20 21:16 Haloperidol (Haldol) 10 mg QHS PO 11/24/20 21:00 12/11/20 10:47 DC 12/10/20 21:45 Haloperidol (Haldol) 10 mg QHS PO 12/19/20 21:00 01/21/21 21:54 Haloperidol (Haldol) 10 mg STAT STAT IM 11/26/20 02:41 11/26/20 02:44 DC 11/26/20 02:52 Haloperidol (Haldol) 10 mg STAT STAT PO 11/19/20 06:48 11/19/20 06:50 DC 11/19/20 07:06 Haloperidol (Haldol) 15 mg QHS PO 12/11/20 21:00 12/19/20 10:34 DC 12/18/20 20:05 Haloperidol Decanoate (Haldol Decanoate) 100 mg Q28D IM 11/28/20 12:00 12/26/20 12:49 Home Med (Med Rec Complete!) ASDIRECTED XX 11/17/20 23:25 11/17/20 23:24 DC Hydralazine HCl (Apresoline) 25 mg Q8H PO 01/13/21 14:00 01/21/21 06:41 Ibuprofen (Advil) 800 mg Q12H PO 01/08/21 21:00 01/12/21 16:02 DC 01/12/21 08:43 Ibuprofen (Advil) 800 mg Q8H PO 12/11/20 14:00 01/08/21 14:46 DC 01/08/21 13:01 Insulin Human Lispro (HumaLOG INSULIN) SEE PROTOCOL TABLE AC SC 01/01/21 17:30 01/22/21 11:55 Insulin Human Lispro (HumaLOG INSULIN) SEE PROTOCOL TABLE QHS SC 01/01/21 21:00 01/12/21 20:46 Lamotrigine (LaMICtal) 200 mg DAILY PO 11/18/20 09:00 11/24/20 01:45 DC 11/23/20 08:00 Lamotrigine (LaMICtal) 200 mg DAILY PO 11/24/20 09:00 01/22/21 09:56 Levothyroxine Sodium (Synthroid) 100 mcg DAILY@06 PO 11/24/20 06:00 01/22/21 06:47 Levothyroxine Sodium (Synthroid) 100 mcg DAILY@0600 PO 11/19/20 06:00 11/24/20 01:45 DC 11/23/20 05:05 Lidocaine (Lidoderm Patch) 1 patch DAILY TD 01/08/21 09:00 01/15/21 10:23 DC 01/15/21 08:38 Lidocaine (Lidoderm Patch) 2 patch DAILY TD 01/15/21 11:00 01/22/21 09:54 Lisinopril (Prinivil) 20 mg DAILY PO 01/13/21 09:00 01/22/21 10:16 Lorazepam (Ativan) 1 mg Q12HP PRN PO ANXIETY/AGITATION 01/13/21 12:50 01/13/21 12:52 DC Lorazepam (Ativan) 1 mg Q12HP PRN PO ANXIETY/AGITATION 01/13/21 12:52 01/21/21 11:25 DC 01/20/21 00:57 Lorazepam (Ativan) 1 mg Q12HP PRN PO ANXIETY/AGITATION 01/21/21 11:25 01/21/21 23:19 Lorazepam (Ativan) 1 mg Q8HP PRN PO ANXIETY/AGITATION 01/13/21 12:50 01/13/21 12:51 DC Lorazepam (Ativan) 2 mg Q8HP PRN PO ANXIETY/AGITATION 12/02/20 12:05 01/13/21 12:47 DC 01/11/21 19:00 Lorazepam (Ativan) 2 mg Q8HP PRN PO AGITATION 11/19/20 09:10 11/24/20 01:45 DC 11/23/20 23:21 Lorazepam (Ativan) 2 mg Q8HP PRN PO AGITATION 11/24/20 10:55 12/01/20 10:54 DC 11/30/20 22:04 Lorazepam (Ativan) 2 mg STAT STAT IM 11/26/20 02:41 11/26/20 02:44 DC 11/26/20 02:53 Lorazepam (Ativan) 2 mg STAT STAT PO 11/19/20 06:48 11/19/20 06:50 DC 11/19/20 07:06 Losartan Potassium (Cozaar) 50 mg DAILY PO 11/19/20 09:00 11/22/20 08:55 DC 11/22/20 08:20 Magnesium Hydroxide (Milk Of Magnesia) 30 ml DAILYPRN PRN PO CONSTIPATION 11/18/20 12:40 11/24/20 01:45 DC Magnesium Hydroxide (Milk Of Magnesia) 30 ml DAILYPRN PRN PO CONSTIPATION 11/24/20 10:55 01/08/21 17:19 Magnesium Sulfate (Epsom Salt) 1 dose DAILY PRN TOP MILD DISCOMFORT 01/15/21 12:00 Menthol/Methyl Salicylate (Bengay Cream) Allow patient to apply t... BID PRN TOP MILD PAIN (PS 1-4) 12/19/20 11:40 01/01/21 12:36 DC 01/01/21 09:02 Menthol/Methyl Salicylate (Bengay Cream) Allow patient to apply t... TID TOP 01/01/21 16:00 01/22/21 09:55 Metformin HCl (Glucophage) 1,000 mg BID@08,18 PO 11/24/20 08:00 01/01/21 16:37 DC 01/01/21 07:34 Metformin HCl (Glucophage) 1,000 mg BID@0800,1800 PO 11/18/20 18:00 11/24/20 01:45 DC 11/23/20 17:34 Miscellaneous (Unresolved Clarification Entry) SEE LABEL COMMENTS DAILY XX 11/30/20 09:00 12/02/20 09:53 DC Miscellaneous (Unresolved Clarification Entry) SEE LABEL COMMENTS DAILY XX 12/02/20 09:00 12/02/20 12:12 DC Miscellaneous (Unresolved Clarification Entry) SEE LABEL COMMENTS DAILY XX 12/13/20 09:00 12/15/20 10:07 DC Miscellaneous (Unresolved Clarification Entry) SEE LABEL COMMENTS DAILY XX 12/30/20 09:00 12/30/20 15:31 DC Miscellaneous (Unresolved Clarification Entry) SEE LABEL COMMENTS DAILY XX 12/30/20 09:00 Cancel Miscellaneous (Unresolved Clarification Entry) SEE LABEL COMMENTS DAILY XX 01/07/21 09:00 01/08/21 07:30 DC Miscellaneous (Unresolved Clarification Entry) SEE LABEL COMMENTS DAILY XX 12/22/20 09:00 12/24/20 14:02 DC Miscellaneous (Unresolved Clarification Entry) SEE LABEL COMMENTS DAILY XX 01/18/21 09:00 01/21/21 10:25 DC Miscellaneous (Unresolved Patient Own Med Order) SEE LABEL COMMENTS UNRESOLVED XX 01/15/21 00:01 9/30/21 15:59 DC Montelukast Sodium (Singulair) 10 mg QHS PO 11/18/20 21:00 11/24/20 01:45 DC 11/23/20 21:15 Montelukast Sodium (Singulair) 10 mg QHS PO 11/24/20 21:00 01/21/21 21:57 Non-Formulary Medication ( See Comment Field Below ) REMOVE LIDODERM PATCH DAILY@ XX 01/06/21 21:00 01/06/21 23:59 DC 01/06/21 21:00 Non-Formulary Medication ( See Comment Field Below ) REMOVE LIDODERM PATCHES DAILY@ XX 01/08/21 21:00 01/21/21 21:59 Omeprazole (PriLOSEC) 20 mg DAILY PO 12/11/20 09:00 01/22/21 09:56 Oxybutynin Chloride (Ditropan) 5 mg DAILY PO 11/19/20 09:00 11/24/20 01:45 DC 11/23/20 08:00 Oxybutynin Chloride (Ditropan) 5 mg DAILY PO 11/24/20 09:00 01/22/21 09:56 Patient Own Medication (Patient'S Own Med) valbenazine (ingrezza)80MG CAP TAKE... DAILY PO 01/15/21 09:00 01/16/21 15:59 DC Propranolol HCl (Inderal) 10 mg BID PO 11/18/20 21:00 11/22/20 08:55 DC 11/22/20 08:20 Quetiapine Fumarate (SEROquel) 200 mg QHS PO 11/19/20 21:00 11/24/20 01:45 DC 11/23/20 21:15 Quetiapine Fumarate (SEROquel) 200 mg QHS PO 11/24/20 21:00 12/04/20 08:57 DC 12/03/20 20:20 Quetiapine Fumarate (SEROquel) 300 mg QHS PO 12/04/20 21:00 01/21/21 21:54 Saliva Substitute (Mouthkote) ASDIRECTED PRN MT DRY MOUTH 01/01/21 12:30 01/11/21 15:24 Tamsulosin HCl (Flomax) 0.8 mg DAILY PO 11/19/20 09:00 11/24/20 01:45 DC 11/23/20 08:01 Tamsulosin HCl (Flomax) 0.8 mg DAILY PO 11/24/20 09:00 01/22/21 09:56 Trazodone HCl (Desyrel) 50 mg QPM PO 01/06/21 21:00 01/21/21 21:57 Trazodone HCl (Desyrel) 100 mg QPM PO 11/18/20 21:00 11/24/20 01:45 DC 11/23/20 21:16 Trazodone HCl (Desyrel) 100 mg QPM PO 11/24/20 21:00 01/06/21 10:12 DC 01/05/21 20:36 Vitamin D (Vitamin D) 400 units DAILY PO 11/19/20 09:00 11/24/20 01:45 DC 11/23/20 08:00 Vitamin D (Vitamin D) 400 units DAILY PO 11/24/20 09:00 01/22/21 09:55 Allergies Coded Allergies: Penicillins (Verified Allergy, Intermediate, rash, 01/02/19) latex (Verified Allergy, Intermediate, rash, 12/13/19) divalproex sodium (Verified Allergy, Unknown, 01/02/19) AYESHA MOLINA MD Jan 22, 2021 14:51
[2021-01-22] MEDS: guaiFENesin DM LIQ 10ML UD PO PRN ×2 (17:39→23:08)
[2021-01-22 19:25] VITALS: BP 142/100
[2021-01-22] MEDS: **NOTE PATIENT COMMENT** MISC XX SCH (21:07)
[2021-01-22] MEDS: traZODone 50 MG TAB PO SCH (21:10)
[2021-01-22] MEDS: MONTELUKAST 10 MG TAB PO SCH (21:10)
[2021-01-22] MEDS: QUEtiapine FUMARATE 100 MG TAB PO SCH (21:10)
[2021-01-22] MEDS: CYCLOBENZAPRINE 10MG TABLET PO SCH (21:11)
[2021-01-22] MEDS: haloperidoL 5 MG TAB PO SCH (21:11)
[2021-01-22] MEDS: ATORVASTATIN 20 MG TAB PO SCH (21:11)
[2021-01-23] MEDS: **hydrALAZINE HCL** 25 MG TAB PO SCH ×3 (06:00→22:27)
[2021-01-23 06:29] VITALS: BP 122/78
[2021-01-23] MEDS: HumaLOG INSULIN (NovoLOG) PER UNIT SC SCH ×4 (06:36→20:35)
[2021-01-23] MEDS: LEVOTHYROXINE 100MCG TABLET (0.1MG) PO SCH (06:36)
[2021-01-23] MEDS: GLIMEPIRIDE 2 MG TAB PO SCH ×2 (06:36→17:06)
[2021-01-23] MEDS: lamoTRIgine 100MG TAB PO SCH (09:20)
[2021-01-23] MEDS: ANALGESIC BALM CRM 3OZ TOP SCH ×3 (09:20→20:32)
[2021-01-23] MEDS: ASPIRIN 81MG ENTERIC TABLET PO SCH (09:20)
[2021-01-23] MEDS: OMEGA-3 1000MG CAPSULE PO SCH (09:20)
[2021-01-23] MEDS: OMEPRAZOLE 20 MG CAP PO SCH (09:21)
[2021-01-23] MEDS: atenoloL 25 MG TAB PO SCH ×2 (09:21→20:32)
[2021-01-23] MEDS: DOCUSATE SODIUM 100MG CAPSULE PO SCH ×2 (09:21→20:33)
[2021-01-23] MEDS: oxyBUTYnin 5 MG TAB PO SCH (09:21)
[2021-01-23] MEDS: BENZTROPINE 1 MG TAB PO SCH ×2 (09:21→20:33)
[2021-01-23] MEDS: VITAMIN D (CHOLECALCIFEROL) 400 INTERNATIONAL UNITS TAB PO SCH (09:21)
[2021-01-23] MEDS: TAMSULOSIN 0.4 MG CAP PO SCH (09:21)
[2021-01-23] MEDS: FLUTICASONE PROP 0.05% NASAL SPRAY 16 GM (FLONASE) NARES SCH (09:22)
[2021-01-23] MEDS: LIDOCAINE 5% (LIDODERM) PATCH TD SCH (09:22)
[2021-01-23 11:14] LABS: RSV AMPLIFICATION NEGATIVE (NEGATIVE)
[2021-01-23] MEDS: HALOPERIDOL DECANOATE 100 MG/ML VIAL (J1631) IM SCH (12:07)
--- NOTE | 2021-01-23 12:07 | MHIPNPDOC ---
[facility] Progress Note Progress Note DATE OF SERVICE: 01/23/21 HISTORY: Patient a 50 y/o man with a past history of bipolar disorder and numerous admissions since his 20's. Was d/c from [facility] Jan 2010 and living in [facility] since. Was admitted on this occasion due to disorganized and paranoid behavior. Currently remains in contact isolation due to possible exposure previous treatment nursing staff. Interval: Patient continues to sleep in the morning, reports feeling ill with sore throat and tired, per nursing staff was not staying up late or having any hypomanic symptoms yesterday. Did not go to groups past few days and was mostly isolative and lying in bed. Blood sugars and blood pressure been well contro lled, RSV, influenza and covid panel negative today VITAL SIGNS: See below. NEW TEST RESULTS: RSV, influenza and covid panel negative 01/23 CURRENT MEDICATIONS: See below. MENTAL STATUS EXAMINATION: Patient is a 50-year old male, wearing masks and glasses without redirection, no acute distress, elevated BMI, somewhat improved hygiene Speech: spontaneous, normal rate Language skills are poor. Thought processes including: Remains disorganized, concrete Thought content: Denies Suicidal thoughts, intent or plan. Abstract reasoning, and computation: Poor Description of associations: concrete Description of abnormal or psychotic thoughts: No change, continues to report chronic AH, less bothersome recently Judgment: poor Insight: poor Orientation: to person, place, time Recent and remote memory: poor Attention span and concentration: Poor, distractible Language: Ch[place] Fund of knowledge: Below average Mood: "Tired and not great" affect: No change, continues to be dysthymic, concrete, disorganized, inappropriate at times DIAGNOSES: 1. Schizoaffective disorder bipolar type 2. Hypertension started on a regimen of hydralazine, lisinopril, 3. Diabetes, supp. glimepiride, insulin sliding scale 4. Back pain, lidocaine patch 5. sore throat, supp robittusin, ASSESSMENT: Patient continues to be mostly isolated to room with reports sore throat, says the Robitussin helps but wears off, overall feels tired, no hypomanic manic symptoms, continues to be concrete and disorganized at times. MANAGEMENT PLAN: No change, continue medications. Denies rash, has elevated white count and increased neutrophil percentage, consulted hospitalist team to evaluate patient when convenient.Blood sugars and blood pressure been well controlled, RSV, influenza and covid panel negative today. Treatment for sore throat primarily supportive with Robitussin, fluids and rest. Ordered a throat culture to help rule out bacterial infection. 6 months retention previously completed. Has Tylenol and lidocaine patch for hip joint pain, which reportedly has improved. Has Robitussin and Flomax for sore throat, congestion, states symptoms have improved with medications, however wo rsening sore throat between receiving dose of Robitussin. Has [facility]OT, [facility]. Patient is highly sensitive to any medication changes with rapid decompensation. Vitals continue to be stable on blood pressure medication regimen, put on by hospitalist team. TIME SPENT: 20 minutes. Vital Signs Vital Signs Date Time Temp Pulse Resp B/P (MAP) Pulse Ox O2 Delivery O2 Flow Rate FiO2 01/23/21 09:21 72 126/70 01/23/21 09:06 Room Air 01/23/21 06:29 97.2 18 95 Laboratory Data 24H Labs Laboratory Tests 2 01/22/21 16:24: Bedside Glucose (Misc Panel) 148H 01/22/21 21:04: Bedside Glucose (Misc Panel) 209H 01/23/21 06:32: Bedside Glucose (Misc Panel) 137H 01/23/21 09:36: Coronavirus (COVID-19)(PCR) NEGATIVE, Influenza Type A (RT-PCR) NEGATIVE, Influenza Type B (RT-PCR) NEGATIVE, Respiratory Syncytial Virus (PCR) NEGATIVE Current Medications Current Medications Medications (Trade) Dose Ordered Sig/Kailey Route PRN Reason Start Time Stop Time Status Last Admin Dose Admin Acetaminophen (Tylenol Tab) 650 mg Q6HP PRN PO HEADACHE or MILD DISCOMFORT 12/01/20 16:05 01/22/21 21:12 Acetaminophen (Tylenol Tab) 650 mg Q6HP PRN PO HEADACHE or MILD DISCOMFORT 11/18/20 12:40 11/24/20 01:45 DC 11/23/20 03:09 Al Hydrox/Mg Hydrox/Simethicone (Mylanta) 30 ml Q4HP PRN PO HEARTBURN/INDIGESTION 11/18/20 12:40 11/24/20 01:45 DC 11/23/20 22:34 Amlodipine Besylate (Norvasc) 10 mg DAILY PO 11/19/20 09:00 11/22/20 08:55 DC 11/22/20 08:20 Aspirin (Ecotrin) 81 mg DAILY PO 11/24/20 09:00 01/23/21 09:20 Aspirin (Ecotrin) 81 mg QAM PO 11/22/20 09:00 11/24/20 01:45 DC 11/23/20 07:58 Atenolol (Tenormin) 25 mg BID PO 11/22/20 09:00 11/22/20 12:53 DC 11/22/20 09:51 Atenolol (Tenormin) 25 mg BID PO 11/24/20 09:00 01/23/21 09:21 Atenolol (Tenormin) 50 mg BID PO 11/22/20 21:00 11/24/20 00:13 DC 11/23/20 21:16 Atorvastatin Calcium (Lipitor) 40 mg QHS PO 11/18/20 21:00 11/24/20 01:45 DC 11/23/20 21:16 Atorvastatin Calcium (Lipitor) 40 mg QHS PO 11/24/20 21:00 01/22/21 21:11 Benztropine Mesylate (Cogentin) 1 mg BID PO 11/18/20 09:00 11/24/20 01:45 DC 11/23/20 21:15 Benztropine Mesylate (Cogentin) 1 mg BID PO 11/24/20 09:00 01/23/21 09:21 Cyclobenzaprine HCl (Flexeril) 10 mg QHS PO 11/20/20 21:00 11/24/20 01:45 DC 11/23/20 21:16 Cyclobenzaprine HCl (Flexeril) 10 mg QHS PO 11/24/20 21:00 01/22/21 21:11 Dextrose (Dextrose 50%) 25 ml ASDIRECTED PRN IV SEE LABEL COMMENTS 01/01/21 16:35 Diphenhydramine HCl (Benadryl) 50 mg Q8HP PRN PO AGITATION 11/19/20 09:10 11/24/20 01:45 DC 11/23/20 17:51 Diphenhydramine HCl (Benadryl) 50 mg Q8HP PRN PO AGITATION 11/24/20 10:55 01/21/21 21:00 Diphenhydramine HCl (Benadryl) 50 mg STAT STAT IM 11/26/20 02:41 11/26/20 02:44 DC 11/26/20 02:53 Diphenhydramine HCl (Benadryl) 50 mg STAT STAT PO 11/19/20 06:48 11/19/20 06:50 DC 11/19/20 07:06 Docusate Sodium (Colace) 100 mg BID PO 11/18/20 21:00 11/24/20 01:45 DC 11/23/20 21:15 Docusate Sodium (Colace) 100 mg BID PO 11/24/20 09:00 01/23/21 09:21 Fish Oil ([place]-3 (1000mg)) 1 cap DAILY PO 12/06/20 09:00 01/23/21 09:20 Fluticasone Propionate (Flonase 0.05% Nasal [place]) 2 spray DAILY NARES 11/19/20 09:00 11/24/20 01:45 DC 11/23/20 08:01 Fluticasone Propionate (Flonase 0.05% Nasal [place]) 2 spray DAILY NARES 11/24/20 09:00 01/23/21 09:22 Glimepiride (Amaryl) 2 mg BID@0730,1730 PO 01/13/21 17:30 01/23/21 06:36 Glucagon (Glucagon) 1 mg ASDIRECTED PRN SC SEE LABEL COMMENTS 01/01/21 16:35 Glucose (Glucose) 16 GM ASDIRECTED PRN PO SEE LABEL COMMENTS 01/01/21 16:35 Guaifenesin/ Dextromethorphan (Robitussin Dm) 10 ml Q4HP PRN PO COUGH 01/01/21 11:40 01/22/21 23:08 Haloperidol (Haldol) 10 mg Q8HP PRN PO AGITATION 11/19/20 09:10 11/24/20 01:45 DC 11/23/20 23:21 Haloperidol (Haldol) 10 mg Q8HP PRN PO AGITATION 11/24/20 10:55 01/15/21 21:20 Haloperidol (Haldol) 10 mg QHS PO 11/19/20 21:00 11/19/20 09:48 DC Haloperidol (Haldol) 10 mg QHS PO 11/19/20 21:00 11/24/20 01:45 DC 11/23/20 21:16 Haloperidol (Haldol) 10 mg QHS PO 11/24/20 21:00 12/11/20 10:47 DC 12/10/20 21:45 Haloperidol (Haldol) 10 mg QHS PO 12/19/20 21:00 01/22/21 21:11 Haloperidol (Haldol) 10 mg STAT STAT IM 11/26/20 02:41 11/26/20 02:44 DC 11/26/20 02:52 Haloperidol (Haldol) 10 mg STAT STAT PO 11/19/20 06:48 11/19/20 06:50 DC 11/19/20 07:06 Haloperidol (Haldol) 15 mg QHS PO 12/11/20 21:00 12/19/20 10:34 DC 12/18/20 20:05 Haloperidol Decanoate (Haldol Decanoate) 100 mg Q28D IM 11/28/20 12:00 12/26/20 12:49 Home Med (Med Rec Complete!) ASDIRECTED XX 11/17/20 23:25 11/17/20 23:24 DC Hydralazine HCl (Apresoline) 25 mg Q8H PO 01/13/21 14:00 01/21/21 06:41 Ibuprofen (Advil) 800 mg Q12H PO 01/08/21 21:00 01/12/21 16:02 DC 01/12/21 08:43 Ibuprofen (Advil) 800 mg Q8H PO 12/11/20 14:00 01/08/21 14:46 DC 01/08/21 13:01 Insulin Human Lispro (HumaLOG INSULIN) SEE PROTOCOL TABLE AC SC 01/01/21 17:30 01/23/21 06:36 Insulin Human Lispro (HumaLOG INSULIN) SEE PROTOCOL TABLE QHS SC 01/01/21 21:00 01/12/21 20:46 Lamotrigine (LaMICtal) 200 mg DAILY PO 11/18/20 09:00 11/24/20 01:45 DC 11/23/20 08:00 Lamotrigine (LaMICtal) 200 mg DAILY PO 11/24/20 09:00 01/23/21 09:20 Levothyroxine Sodium (Synthroid) 100 mcg DAILY@06 PO 11/24/20 06:00 01/23/21 06:36 Levothyroxine Sodium (Synthroid) 100 mcg DAILY@0600 PO 11/19/20 06:00 11/24/20 01:45 DC 11/23/20 05:05 Lidocaine (Lidoderm Patch) 1 patch DAILY TD 01/08/21 09:00 01/15/21 10:23 DC 01/15/21 08:38 Lidocaine (Lidoderm Patch) 2 patch DAILY TD 01/15/21 11:00 01/23/21 09:22 Lisinopril (Prinivil) 20 mg DAILY PO 01/13/21 09:00 01/23/21 09:21 Lorazepam (Ativan) 1 mg Q12HP PRN PO ANXIETY/AGITATION 01/13/21 12:50 01/13/21 12:52 DC Lorazepam (Ativan) 1 mg Q12HP PRN PO ANXIETY/AGITATION 01/13/21 12:52 01/21/21 11:25 DC 01/20/21 00:57 Lorazepam (Ativan) 1 mg Q12HP PRN PO ANXIETY/AGITATION 01/21/21 11:25 01/21/21 23:19 Lorazepam (Ativan) 1 mg Q8HP PRN PO ANXIETY/AGITATION 01/13/21 12:50 01/13/21 12:51 DC Lorazepam (Ativan) 2 mg Q8HP PRN PO ANXIETY/AGITATION 12/02/20 12:05 01/13/21 12:47 DC 01/11/21 19:00 Lorazepam (Ativan) 2 mg Q8HP PRN PO AGITATION 11/19/20 09:10 11/24/20 01:45 DC 11/23/20 23:21 Lorazepam (Ativan) 2 mg Q8HP PRN PO AGITATION 11/24/20 10:55 12/01/20 10:54 DC 11/30/20 22:04 Lorazepam (Ativan) 2 mg STAT STAT IM 11/26/20 02:41 11/26/20 02:44 DC 11/26/20 02:53 Lorazepam (Ativan) 2 mg STAT STAT PO 11/19/20 06:48 11/19/20 06:50 DC 11/19/20 07:06 Losartan Potassium (Cozaar) 50 mg DAILY PO 11/19/20 09:00 11/22/20 08:55 DC 11/22/20 08:20 Magnesium Hydroxide (Milk Of Magnesia) 30 ml DAILYPRN PRN PO CONSTIPATION 11/18/20 12:40 11/24/20 01:45 DC Magnesium Hydroxide (Milk Of Magnesia) 30 ml DAILYPRN PRN PO CONSTIPATION 11/24/20 10:55 01/08/21 17:19 Magnesium Sulfate (Epsom Salt) 1 dose DAILY PRN TOP MILD DISCOMFORT 01/15/21 12:00 Menthol/Methyl Salicylate (Bengay Cream) Allow patient to apply t... BID PRN TOP MILD PAIN (PS 1-4) 12/19/20 11:40 01/01/21 12:36 DC 01/01/21 09:02 Menthol/Methyl Salicylate (Bengay Cream) Allow patient to apply t... TID TOP 01/01/21 16:00 01/23/21 09:20 Metformin HCl (Glucophage) 1,000 mg BID@08,18 PO 11/24/20 08:00 01/01/21 16:37 DC 01/01/21 07:34 Metformin HCl (Glucophage) 1,000 mg BID@0800,1800 PO 11/18/20 18:00 11/24/20 01:45 DC 11/23/20 17:34 Miscellaneous (Unresolved Clarification Entry) SEE LABEL COMMENTS DAILY XX 11/30/20 09:00 12/02/20 09:53 DC Miscellaneous (Unresolved Clarification Entry) SEE LABEL COMMENTS DAILY XX 12/02/20 09:00 12/02/20 12:12 DC Miscellaneous (Unresolved Clarification Entry) SEE LABEL COMMENTS DAILY XX 12/13/20 09:00 12/15/20 10:07 DC Miscellaneous (Unresolved Clarification Entry) SEE LABEL COMMENTS DAILY XX 12/30/20 09:00 12/30/20 15:31 DC Miscellaneous (Unresolved Clarification Entry) SEE LABEL COMMENTS DAILY XX 12/30/20 09:00 Cancel Miscellaneous (Unresolved Clarification Entry) SEE LABEL COMMENTS DAILY XX 01/07/21 09:00 01/08/21 07:30 DC Miscellaneous (Unresolved Clarification Entry) SEE LABEL COMMENTS DAILY XX 12/22/20 09:00 12/24/20 14:02 DC Miscellaneous (Unresolved Clarification Entry) SEE LABEL COMMENTS DAILY XX 01/18/21 09:00 01/21/21 10:25 DC Miscellaneous (Unresolved Patient Own Med Order) SEE LABEL COMMENTS UNRESOLVED XX 01/15/21 00:01 01/16/21 15:59 DC Montelukast Sodium (Singulair) 10 mg QHS PO 11/18/20 21:00 11/24/20 01:45 DC 11/23/20 21:15 Montelukast Sodium (Singulair) 10 mg QHS PO 11/24/20 21:00 01/22/21 21:10 Non-Formulary Medication ( See Comment Field Below ) REMOVE LIDODERM PATCH DAILY@ XX 01/06/21 21:00 01/06/21 23:59 DC 01/06/21 21:00 Non-Formulary Medication ( See Comment Field Below ) REMOVE LIDODERM PATCHES DAILY@21 XX 01/08/21 21:00 01/22/21 21:07 Omeprazole (PriLOSEC) 20 mg DAILY PO 12/11/20 09:00 01/23/21 09:21 Oxybutynin Chloride (Ditropan) 5 mg DAILY PO 11/19/20 09:00 11/24/20 01:45 DC 11/23/20 08:00 Oxybutynin Chloride (Ditropan) 5 mg DAILY PO 11/24/20 09:00 01/23/21 09:21 Patient Own Medication (Patient'S Own Med) valbenazine (ingrezza)80MG CAP TAKE... DAILY PO 01/15/21 09:00 01/16/21 15:59 DC Propranolol HCl (Inderal) 10 mg BID PO 11/18/20 21:00 11/22/20 08:55 DC 11/22/20 08:20 Quetiapine Fumarate (SEROquel) 200 mg QHS PO 11/19/20 21:00 11/24/20 01:45 DC 11/23/20 21:15 Quetiapine Fumarate (SEROquel) 200 mg QHS PO 11/24/20 21:00 12/04/20 08:57 DC 12/03/20 20:20 Quetiapine Fumarate (SEROquel) 300 mg QHS PO 12/04/20 21:00 01/22/21 21:10 Saliva Substitute (Mouthkote) ASDIRECTED PRN MT DRY MOUTH 01/01/21 12:30 01/11/21 15:24 Tamsulosin HCl (Flomax) 0.8 mg DAILY PO 11/19/20 09:00 11/24/20 01:45 DC 11/23/20 08:01 Tamsulosin HCl (Flomax) 0.8 mg DAILY PO 11/24/20 09:00 01/23/21 09:21 Trazodone HCl (Desyrel) 50 mg QPM PO 01/06/21 21:00 01/22/21 21:10 Trazodone HCl (Desyrel) 100 mg QPM PO 11/18/20 21:00 11/24/20 01:45 DC 11/23/20 21:16 Trazodone HCl (Desyrel) 100 mg QPM PO 11/24/20 21:00 01/06/21 10:12 DC 01/05/21 20:36 Vitamin D (Vitamin D) 400 units DAILY PO 11/19/20 09:00 11/24/20 01:45 DC 11/23/20 08:00 Vitamin D (Vitamin D) 400 units DAILY PO 11/24/20 09:00 01/23/21 09:21 Allergies Coded Allergies: Penicillins (Verified Allergy, Intermediate, rash, 01/02/19) latex (Verified Allergy, Intermediate, rash, 12/13/19) divalproex sodium (Verified Allergy, Unknown, 01/02/19) AYESHA MOLINA MD Jan 23, 2021 12:07
[2021-01-23] MEDS: ACETAMINOPHEN TAB 650MG DOSE (2X325MG) PO PRN ×2 (13:31→20:36)
[2021-01-23 14:30] VITALS: BP 138/80
[2021-01-23] MEDS: guaiFENesin DM LIQ 10ML UD PO PRN ×2 (15:05→22:27)
[2021-01-23] MEDS: haloperidoL 5 MG TAB PO SCH (20:32)
[2021-01-23] MEDS: CYCLOBENZAPRINE 10MG TABLET PO SCH (20:32)
[2021-01-23] MEDS: MONTELUKAST 10 MG TAB PO SCH (20:32)
[2021-01-23] MEDS: traZODone 50 MG TAB PO SCH (20:33)
[2021-01-23] MEDS: QUEtiapine FUMARATE 100 MG TAB PO SCH (20:33)
[2021-01-23] MEDS: ATORVASTATIN 20 MG TAB PO SCH (20:33)
[2021-01-23] MEDS: **NOTE PATIENT COMMENT** MISC XX SCH (21:59)
[2021-01-24] MEDS: **hydrALAZINE HCL** 25 MG TAB PO SCH ×3 (06:00→21:43)
[2021-01-24 06:21] VITALS: BP 152/98
[2021-01-24] MEDS: LEVOTHYROXINE 100MCG TABLET (0.1MG) PO SCH (06:41)
[2021-01-24] MEDS: HumaLOG INSULIN (NovoLOG) PER UNIT SC SCH ×4 (06:41→21:00)
[2021-01-24] MEDS: GLIMEPIRIDE 2 MG TAB PO SCH ×2 (06:41→16:50)
[2021-01-24] MEDS: LIDOCAINE 5% (LIDODERM) PATCH TD SCH (09:00)
[2021-01-24] MEDS: BENZTROPINE 1 MG TAB PO SCH ×2 (10:20→21:43)
[2021-01-24] MEDS: lamoTRIgine 100MG TAB PO SCH (10:20)
[2021-01-24] MEDS: oxyBUTYnin 5 MG TAB PO SCH (10:20)
[2021-01-24] MEDS: ASPIRIN 81MG ENTERIC TABLET PO SCH (10:20)
[2021-01-24] MEDS: DOCUSATE SODIUM 100MG CAPSULE PO SCH ×2 (10:20→21:44)
[2021-01-24] MEDS: TAMSULOSIN 0.4 MG CAP PO SCH (10:20)
[2021-01-24] MEDS: OMEPRAZOLE 20 MG CAP PO SCH (10:20)
[2021-01-24] MEDS: ANALGESIC BALM CRM 3OZ TOP SCH ×3 (10:21→21:43)
[2021-01-24] MEDS: OMEGA-3 1000MG CAPSULE PO SCH (10:21)
[2021-01-24] MEDS: VITAMIN D (CHOLECALCIFEROL) 400 INTERNATIONAL UNITS TAB PO SCH (10:21)
[2021-01-24] MEDS: FLUTICASONE PROP 0.05% NASAL SPRAY 16 GM (FLONASE) NARES SCH (10:21)
[2021-01-24] MEDS: atenoloL 25 MG TAB PO SCH ×2 (10:22→21:44)
[2021-01-24] MEDS: ACETAMINOPHEN TAB 650MG DOSE (2X325MG) PO PRN (12:50)
--- NOTE | 2021-01-24 13:56 | MHIPNPDOC ---
[facility] Progress Note Progress Note DATE OF SERVICE: 01/24/21 HISTORY: Patient a 50 y/o man with a past history of bipolar disorder and numerous admissions since his 20's. [place] [facility] [place] Was admitted on this occasion due to disorganized and paranoid behavior. Currently remains in contact isolation due to possible exposure previous treatment nursing staff. Interval: Patient per staff was reportedly up late yesterday, seen in the hallways, today is lying in bed, reports continues to have sore throat but somewhat better, states "mentally I'm fine". Denies other acute physical complaints, but does ask for lidocaine patch, nursing made aware he can receive. Otherwise denies any symptoms of aggression, went to 2 groups yesterday. Any placement VITAL SIGNS: See below. NEW TEST RESULTS: none, swab pending CURRENT MEDICATIONS: See below. MENTAL STATUS EXAMINATION: Patient is a 50-year old male, wearing masks and glasses without redirection, no acute distress, elevated BMI, somewhat improved hygiene Speech: spontaneous, normal rate Language skills are poor. Thought processes including: Remains disorganized, concrete Thought content: Denies Suicidal thoughts, intent or plan. Abstract reasoning, and computation: Poor Description of associations: concrete Description of abnormal or psychotic thoughts: No change, continues to report chronic AH, less bothersome recently Judgment: poor Insight: poor Orientation: to person, place, time Recent and remote memory: poor Attention span and concentration: Poor, distractible Language: Bengali Fund of knowledge: Below average Mood: "mentally okay" affect: No change, continues to be dysthymic, concrete, disorganized. DIAGNOSES: 1. Schizoaffective disorder bipolar type 2. Hypertension started on a regimen of hydralazine, lisinopril, 3. Diabetes, supp. glimepiride, insulin sliding scale 4. Back pain, lidocaine patch 5. sore throat, supp robittusin, ASSESSMENT: Patient continues to have periods of elevated mood and depressed mood which can shift rapidly, has been tolerated medications and denies acute physical complaints apart from sore throat which is improving, pending throat swab results, and hip joint pain supplement with lidocaine patches made aware can take them, does not need to wait. MANAGEMENT PLAN: No change, continue medications. Pending placement. RSV, influenza and covid panel negative yesterday. Treatment for sore throat primarily supportive with Robitussin, fluids and rest. Culture results pending. 6 months retention previously completed. Has AOT, [facility]. Patient is highly sensitive to any medication changes with rapid decompensation. Vitals continue to be stable on blood pressure medication regimen, put on by hospitalist team. TIME SPENT: 15 minutes. Vital Signs Vital Signs Date Time Temp Pulse Resp B/P (MAP) Pulse Ox O2 Delivery O2 Flow Rate FiO2 01/24/21 10: 155/90 01/24/21 10:22 84 01/24/21 09:08 Room Air 01/24/21 06:21 97.0 20 98 Laboratory Data 24H Labs Laboratory Tests 2 01/23/21 17:02: Bedside Glucose (Misc Panel) 174H 01/23/21 20:25: Bedside Glucose (Misc Panel) 245H 01/24/21 06:27: Bedside Glucose (Misc Panel) 150H 01/24/21 11:50: Bedside Glucose (Misc Panel) 219H Current Medications Current Medications Medications (Trade) Dose Ordered Sig/Kailey Route PRN Reason Start Time Stop Time Status Last Admin Dose Admin Acetaminophen (Tylenol Tab) 650 mg Q6HP PRN PO HEADACHE or MILD DISCOMFORT 12/01/20 16:05 01/24/21 12:50 Acetaminophen (Tylenol Tab) 650 mg Q6HP PRN PO HEADACHE or MILD DISCOMFORT 11/18/20 12:40 11/24/20 01:45 DC 11/23/20 03:09 Al Hydrox/Mg Hydrox/Simethicone (Mylanta) 30 ml Q4HP PRN PO HEARTBURN/INDIGESTION 11/18/20 12:40 11/24/20 01:45 DC 11/23/20 22:34 Amlodipine Besylate (Norvasc) 10 mg DAILY PO 11/19/20 09:00 11/22/20 08:55 DC 11/22/20 08:20 Aspirin (Ecotrin) 81 mg DAILY PO 11/24/20 09:00 01/24/21 10:20 Aspirin (Ecotrin) 81 mg QAM PO 11/22/20 09:00 11/24/20 01:45 DC 11/23/20 07:58 Atenolol (Tenormin) 25 mg BID PO 11/22/20 09:00 11/22/20 12:53 DC 11/22/20 09:51 Atenolol (Tenormin) 25 mg BID PO 11/24/20 09:00 01/24/21 10:22 Atenolol (Tenormin) 50 mg BID PO 11/22/20 21:00 11/24/20 00:13 DC 11/23/20 21:16 Atorvastatin Calcium (Lipitor) 40 mg QHS PO 11/18/20 21:00 11/24/20 01:45 DC 11/23/20 21:16 Atorvastatin Calcium (Lipitor) 40 mg QHS PO 11/24/20 21:00 01/23/21 20:33 Benztropine Mesylate (Cogentin) 1 mg BID PO 11/18/20 09:00 11/24/20 01:45 DC 11/23/20 21:15 Benztropine Mesylate (Cogentin) 1 mg BID PO 11/24/20 09:00 01/24/21 10:20 Cyclobenzaprine HCl (Flexeril) 10 mg QHS PO 11/20/20 21:00 11/24/20 01:45 DC 11/23/20 21:16 Cyclobenzaprine HCl (Flexeril) 10 mg QHS PO 11/24/20 21:00 01/23/21 20:32 Dextrose (Dextrose 50%) 25 ml ASDIRECTED PRN IV SEE LABEL COMMENTS 01/01/21 16:35 Diphenhydramine HCl (Benadryl) 50 mg Q8HP PRN PO AGITATION 11/19/20 09:10 11/24/20 01:45 DC 11/23/20 17:51 Diphenhydramine HCl (Benadryl) 50 mg Q8HP PRN PO AGITATION 11/24/20 10:55 01/21/21 21:00 Diphenhydramine HCl (Benadryl) 50 mg STAT STAT IM 11/26/20 02:41 11/26/20 02:44 DC 11/26/20 02:53 Diphenhydramine HCl (Benadryl) 50 mg STAT STAT PO 11/19/20 06:48 11/19/20 06:50 DC 11/19/20 07:06 Docusate Sodium (Colace) 100 mg BID PO 11/18/20 21:00 11/24/20 01:45 DC 11/23/20 21:15 Docusate Sodium (Colace) 100 mg BID PO 11/24/20 09:00 01/24/21 10:20 Fish Oil (Napoleon-3 (1000mg)) 1 cap DAILY PO 12/06/20 09:00 01/24/21 10:21 Fluticasone Propionate (Flonase 0.05% Nasal [place]) 2 spray DAILY NARES 11/19/20 09:00 11/24/20 01:45 DC 11/23/20 08:01 Fluticasone Propionate (Flonase 0.05% Nasal [place]) 2 spray DAILY NARES 11/24/20 09:00 01/24/21 10:21 Glimepiride (Amaryl) 2 mg BID@0730,1730 PO 01/13/21 17:30 01/24/21 06:41 Glucagon (Glucagon) 1 mg ASDIRECTED PRN SC SEE LABEL COMMENTS 01/01/21 16:35 Glucose (Glucose) 16 GM ASDIRECTED PRN PO SEE LABEL COMMENTS 01/01/21 16:35 Guaifenesin/ Dextromethorphan (Robitussin Dm) 10 ml Q4HP PRN PO COUGH 01/01/21 11:40 01/23/21 22:27 Haloperidol (Haldol) 10 mg Q8HP PRN PO AGITATION 11/19/20 09:10 11/24/20 01:45 DC 11/23/20 23:21 Haloperidol (Haldol) 10 mg Q8HP PRN PO AGITATION 11/24/20 10:55 01/15/21 21:20 Haloperidol (Haldol) 10 mg QHS PO 11/19/20 21:00 11/19/20 09:48 DC Haloperidol (Haldol) 10 mg QHS PO 11/19/20 21:00 11/24/20 01:45 DC 11/23/20 21:16 Haloperidol (Haldol) 10 mg QHS PO 11/24/20 21:00 12/11/20 10:47 DC 12/10/20 21:45 Haloperidol (Haldol) 10 mg QHS PO 12/19/20 21:00 01/23/21 20:32 Haloperidol (Haldol) 10 mg STAT STAT IM 11/26/20 02:41 11/26/20 02:44 DC 11/26/20 02:52 Haloperidol (Haldol) 10 mg STAT STAT PO 11/19/20 06:48 11/19/20 06:50 DC 11/19/20 07:06 Haloperidol (Haldol) 15 mg QHS PO 12/11/20 21:00 12/19/20 10:34 DC 12/18/20 20:05 Haloperidol Decanoate (Haldol Decanoate) 100 mg Q28D IM 11/28/20 12:00 01/23/21 12:07 Home Med (Med Rec Complete!) ASDIRECTED XX 11/17/20 23:25 11/17/20 23:24 DC Hydralazine HCl (Apresoline) 25 mg Q8H PO 01/13/21 14:00 01/23/21 22:27 Ibuprofen (Advil) 800 mg Q12H PO 01/08/21 21:00 01/12/21 16:02 DC 01/12/21 08:43 Ibuprofen (Advil) 800 mg Q8H PO 12/11/20 14:00 01/08/21 14:46 DC 01/08/21 13:01 Insulin Human Lispro (HumaLOG INSULIN) SEE PROTOCOL TABLE AC SC 01/01/21 17:30 01/24/21 12:23 Insulin Human Lispro (HumaLOG INSULIN) SEE PROTOCOL TABLE QHS SC 01/01/21 21:00 01/12/21 20:46 Lamotrigine (LaMICtal) 200 mg DAILY PO 11/18/20 09:00 11/24/20 01:45 DC 11/23/20 08:00 Lamotrigine (LaMICtal) 200 mg DAILY PO 11/24/20 09:00 01/24/21 10:20 Levothyroxine Sodium (Synthroid) 100 mcg DAILY@06 PO 11/24/20 06:00 01/24/21 06:41 Levothyroxine Sodium (Synthroid) 100 mcg DAILY@0600 PO 11/19/20 06:00 11/24/20 01:45 DC 11/23/20 05:05 Lidocaine (Lidoderm Patch) 1 patch DAILY TD 01/08/21 09:00 01/15/21 10:23 DC 01/15/21 08:38 Lidocaine (Lidoderm Patch) 2 patch DAILY TD 01/15/21 11:00 01/23/21 09:22 Lisinopril (Prinivil) 20 mg DAILY PO 01/13/21 09:00 01/24/21 10:22 Lorazepam (Ativan) 1 mg Q12HP PRN PO ANXIETY/AGITATION 01/13/21 12:50 01/13/21 12:52 DC Lorazepam (Ativan) 1 mg Q12HP PRN PO ANXIETY/AGITATION 01/13/21 12:52 01/21/21 11:25 DC 01/20/21 00:57 Lorazepam (Ativan) 1 mg Q12HP PRN PO ANXIETY/AGITATION 01/21/21 11:25 01/21/21 23:19 Lorazepam (Ativan) 1 mg Q8HP PRN PO ANXIETY/AGITATION 01/13/21 12:50 01/13/21 12:51 DC Lorazepam (Ativan) 2 mg Q8HP PRN PO ANXIETY/AGITATION 12/02/20 12:05 01/13/21 12:47 DC 01/11/21 19:00 Lorazepam (Ativan) 2 mg Q8HP PRN PO AGITATION 11/19/20 09:10 11/24/20 01:45 DC 11/23/20 23:21 Lorazepam (Ativan) 2 mg Q8HP PRN PO AGITATION 11/24/20 10:55 12/01/20 10:54 DC 11/30/20 22:04 Lorazepam (Ativan) 2 mg STAT STAT IM 11/26/20 02:41 11/26/20 02:44 DC 11/26/20 02:53 Lorazepam (Ativan) 2 mg STAT STAT PO 11/19/20 06:48 11/19/20 06:50 DC 11/19/20 07:06 Losartan Potassium (Cozaar) 50 mg DAILY PO 11/19/20 09:00 11/22/20 08:55 DC 11/22/20 08:20 Magnesium Hydroxide (Milk Of Magnesia) 30 ml DAILYPRN PRN PO CONSTIPATION 11/18/20 12:40 11/24/20 01:45 DC Magnesium Hydroxide (Milk Of Magnesia) 30 ml DAILYPRN PRN PO CONSTIPATION 11/24/20 10:55 01/08/21 17:19 Magnesium Sulfate (Epsom Salt) 1 dose DAILY PRN TOP MILD DISCOMFORT 01/15/21 12:00 Menthol/Methyl Salicylate (Bengay Cream) Allow patient to apply t... BID PRN TOP MILD PAIN (PS 1-4) 12/19/20 11:40 01/01/21 12:36 DC 01/01/21 09:02 Menthol/Methyl Salicylate (Bengay Cream) Allow patient to apply t... TID TOP 01/01/21 16:00 01/24/21 10:21 Metformin HCl (Glucophage) 1,000 mg BID@08,18 PO 11/24/20 08:00 01/01/21 16:37 DC 01/01/21 07:34 Metformin HCl (Glucophage) 1,000 mg BID@0800,1800 PO 11/18/20 18:00 11/24/20 01:45 DC 11/23/20 17:34 Miscellaneous (Unresolved Clarification Entry) SEE LABEL COMMENTS DAILY XX 11/30/20 09:00 12/02/20 09:53 DC Miscellaneous (Unresolved Clarification Entry) SEE LABEL COMMENTS DAILY XX 12/02/20 09:00 12/02/20 12:12 DC Miscellaneous (Unresolved Clarification Entry) SEE LABEL COMMENTS DAILY XX 12/13/20 09:00 12/15/20 10:07 DC Miscellaneous (Unresolved Clarification Entry) SEE LABEL COMMENTS DAILY XX 12/30/20 09:00 12/30/20 15:31 DC Miscellaneous (Unresolved Clarification Entry) SEE LABEL COMMENTS DAILY XX 12/30/20 09:00 Cancel Miscellaneous (Unresolved Clarification Entry) SEE LABEL COMMENTS DAILY XX 01/07/21 09:00 01/08/21 07:30 DC Miscellaneous (Unresolved Clarification Entry) SEE LABEL COMMENTS DAILY XX 12/22/20 09:00 12/24/20 14:02 DC Miscellaneous (Unresolved Clarification Entry) SEE LABEL COMMENTS DAILY XX 01/18/21 09:00 01/21/21 10:25 DC Miscellaneous (Unresolved Patient Own Med Order) SEE LABEL COMMENTS UNRESOLVED XX 01/15/21 00:01 01/16/21 15:59 DC Montelukast Sodium (Singulair) 10 mg QHS PO 11/18/20 21:00 11/24/20 01:45 DC 11/23/20 21:15 Montelukast Sodium (Singulair) 10 mg QHS PO 11/24/20 21:00 01/23/21 20:32 Non-Formulary Medication ( See Comment Field Below ) REMOVE LIDODERM PATCH DAILY@ XX 01/06/21 21:00 01/06/21 23:59 DC 01/06/21 21:00 Non-Formulary Medication ( See Comment Field Below ) REMOVE LIDODERM PATCHES DAILY@21 XX 01/08/21 21:00 01/23/21 21:59 Omeprazole (PriLOSEC) 20 mg DAILY PO 12/11/20 09:00 01/24/21 10:20 Oxybutynin Chloride (Ditropan) 5 mg DAILY PO 11/19/20 09:00 11/24/20 01:45 DC 11/23/20 08:00 Oxybutynin Chloride (Ditropan) 5 mg DAILY PO 11/24/20 09:00 01/24/21 10:20 Patient Own Medication (Patient'S Own Med) valbenazine (ingrezza)80MG CAP TAKE... DAILY PO 01/15/21 09:00 01/16/21 15:59 DC Propranolol HCl (Inderal) 10 mg BID PO 11/18/20 21:00 11/22/20 08:55 DC 11/22/20 08:20 Quetiapine Fumarate (SEROquel) 200 mg QHS PO 11/19/20 21:00 11/24/20 01:45 DC 11/23/20 21:15 Quetiapine Fumarate (SEROquel) 200 mg QHS PO 11/24/20 21:00 12/04/20 08:57 DC 12/03/20 20:20 Quetiapine Fumarate (SEROquel) 300 mg QHS PO 12/04/20 21:00 01/23/21 20:33 Saliva Substitute (Mouthkote) ASDIRECTED PRN MT DRY MOUTH 01/01/21 12:30 01/11/21 15:24 Tamsulosin HCl (Flomax) 0.8 mg DAILY PO 11/19/20 09:00 11/24/20 01:45 DC 11/23/20 08:01 Tamsulosin HCl (Flomax) 0.8 mg DAILY PO 11/24/20 09:00 01/24/21 10:20 Trazodone HCl (Desyrel) 50 mg QPM PO 01/06/21 21:00 01/23/21 20:33 Trazodone HCl (Desyrel) 100 mg QPM PO 11/18/20 21:00 11/24/20 01:45 DC 11/23/20 21:16 Trazodone HCl (Desyrel) 100 mg QPM PO 11/24/20 21:00 01/06/21 10:12 DC 01/05/21 20:36 Vitamin D (Vitamin D) 400 units DAILY PO 11/19/20 09:00 11/24/20 01:45 DC 11/23/20 08:00 Vitamin D (Vitamin D) 400 units DAILY PO 11/24/20 09:00 01/24/21 10:21 Allergies Coded Allergies: Penicillins (Verified Allergy, Intermediate, rash, 01/02/19) latex (Verified Allergy, Intermediate, rash, 12/13/19) divalproex sodium (Verified Allergy, Unknown, 01/02/19) AYESHA MOLINA MD Jan 24, 2021 13:56
[2021-01-24 17:58] VITALS: BP 140/90
[2021-01-24] MEDS: **NOTE PATIENT COMMENT** MISC XX SCH (21:00)
[2021-01-24] MEDS: CYCLOBENZAPRINE 10MG TABLET PO SCH (21:43)
[2021-01-24] MEDS: ATORVASTATIN 20 MG TAB PO SCH (21:43)
[2021-01-24] MEDS: MONTELUKAST 10 MG TAB PO SCH (21:43)
[2021-01-24] MEDS: QUEtiapine FUMARATE 100 MG TAB PO SCH (21:43)
[2021-01-24] MEDS: haloperidoL 5 MG TAB PO SCH (21:44)
[2021-01-24] MEDS: traZODone 50 MG TAB PO SCH (21:46)
[2021-01-25] MEDS: **hydrALAZINE HCL** 25 MG TAB PO SCH ×3 (06:00→21:42)
[2021-01-25] MEDS: LEVOTHYROXINE 100MCG TABLET (0.1MG) PO SCH (06:04)
[2021-01-25] MEDS: GLIMEPIRIDE 2 MG TAB PO SCH ×2 (06:52→17:17)
[2021-01-25] MEDS: HumaLOG INSULIN (NovoLOG) PER UNIT SC SCH ×4 (06:53→20:32)
[2021-01-25 07:28] VITALS: BP 136/64
[2021-01-25] MEDS: ANALGESIC BALM CRM 3OZ TOP SCH ×3 (09:45→20:33)
[2021-01-25] MEDS: LIDOCAINE 5% (LIDODERM) PATCH TD SCH (09:46)
[2021-01-25] MEDS: ASPIRIN 81MG ENTERIC TABLET PO SCH (09:46)
[2021-01-25] MEDS: OMEGA-3 1000MG CAPSULE PO SCH (09:46)
[2021-01-25] MEDS: VITAMIN D (CHOLECALCIFEROL) 400 INTERNATIONAL UNITS TAB PO SCH (09:46)
[2021-01-25] MEDS: DOCUSATE SODIUM 100MG CAPSULE PO SCH ×2 (09:46→20:32)
[2021-01-25] MEDS: oxyBUTYnin 5 MG TAB PO SCH (09:46)
[2021-01-25] MEDS: lamoTRIgine 100MG TAB PO SCH (09:46)
[2021-01-25] MEDS: BENZTROPINE 1 MG TAB PO SCH ×2 (09:47→20:32)
[2021-01-25] MEDS: TAMSULOSIN 0.4 MG CAP PO SCH (09:47)
[2021-01-25] MEDS: OMEPRAZOLE 20 MG CAP PO SCH (09:47)
[2021-01-25] MEDS: atenoloL 25 MG TAB PO SCH ×2 (09:47→20:33)
[2021-01-25] MEDS: FLUTICASONE PROP 0.05% NASAL SPRAY 16 GM (FLONASE) NARES SCH (09:50)
[2021-01-25] MEDS: guaiFENesin DM LIQ 10ML UD PO PRN (12:46)
[2021-01-25] MEDS: ACETAMINOPHEN TAB 650MG DOSE (2X325MG) PO PRN ×2 (13:05→19:25)
[2021-01-25 19:10] VITALS: BP 158/100
[2021-01-25] MEDS: CYCLOBENZAPRINE 10MG TABLET PO SCH (20:32)
[2021-01-25] MEDS: QUEtiapine FUMARATE 100 MG TAB PO SCH (20:32)
[2021-01-25] MEDS: haloperidoL 5 MG TAB PO SCH (20:32)
[2021-01-25] MEDS: traZODone 50 MG TAB PO SCH (20:33)
[2021-01-25] MEDS: MONTELUKAST 10 MG TAB PO SCH (20:33)
[2021-01-25] MEDS: ATORVASTATIN 20 MG TAB PO SCH (20:33)
[2021-01-25] MEDS: **NOTE PATIENT COMMENT** MISC XX SCH (20:34)
[2021-01-25] MEDS: diphenhydrAMINE 50MG CAP PO PRN (21:42)
[2021-01-25] MEDS: LORazepam 1 MG TAB PO PRN (21:42)
[2021-01-26] MEDS: LEVOTHYROXINE 100MCG TABLET (0.1MG) PO SCH (06:13)
[2021-01-26] MEDS: **hydrALAZINE HCL** 25 MG TAB PO SCH ×3 (06:21→21:45)
[2021-01-26 06:41] VITALS: BP 160/102
[2021-01-26] MEDS: GLIMEPIRIDE 2 MG TAB PO SCH ×2 (06:56→17:03)
[2021-01-26] MEDS: HumaLOG INSULIN (NovoLOG) PER UNIT SC SCH ×4 (07:07→21:00)
[2021-01-26] MEDS: FLUTICASONE PROP 0.05% NASAL SPRAY 16 GM (FLONASE) NARES SCH (09:01)
[2021-01-26] MEDS: oxyBUTYnin 5 MG TAB PO SCH (09:02)
[2021-01-26] MEDS: TAMSULOSIN 0.4 MG CAP PO SCH (09:02)
[2021-01-26] MEDS: ASPIRIN 81MG ENTERIC TABLET PO SCH (09:02)
[2021-01-26] MEDS: DOCUSATE SODIUM 100MG CAPSULE PO SCH ×2 (09:02→21:43)
[2021-01-26] MEDS: OMEGA-3 1000MG CAPSULE PO SCH (09:02)
[2021-01-26] MEDS: VITAMIN D (CHOLECALCIFEROL) 400 INTERNATIONAL UNITS TAB PO SCH (09:03)
[2021-01-26] MEDS: lamoTRIgine 100MG TAB PO SCH (09:03)
[2021-01-26] MEDS: BENZTROPINE 1 MG TAB PO SCH ×2 (09:03→21:45)
[2021-01-26] MEDS: atenoloL 25 MG TAB PO SCH ×2 (09:03→21:44)
[2021-01-26] MEDS: OMEPRAZOLE 20 MG CAP PO SCH (09:03)
[2021-01-26] MEDS: LIDOCAINE 5% (LIDODERM) PATCH TD SCH (09:06)
[2021-01-26] MEDS: ANALGESIC BALM CRM 3OZ TOP SCH ×3 (09:07→21:00)
[2021-01-26] MEDS: ACETAMINOPHEN TAB 650MG DOSE (2X325MG) PO PRN ×2 (14:10→21:46)
[2021-01-26] MEDS: **NOTE PATIENT COMMENT** MISC XX SCH (21:00)
[2021-01-26] MEDS: MONTELUKAST 10 MG TAB PO SCH (21:43)
[2021-01-26] MEDS: CYCLOBENZAPRINE 10MG TABLET PO SCH (21:43)
[2021-01-26] MEDS: haloperidoL 5 MG TAB PO SCH (21:45)
[2021-01-26] MEDS: traZODone 50 MG TAB PO SCH (21:45)
[2021-01-26] MEDS: ATORVASTATIN 20 MG TAB PO SCH (21:45)
[2021-01-26] MEDS: QUEtiapine FUMARATE 100 MG TAB PO SCH (21:46)
[2021-01-26 22:00] VITALS: BP 151/89
[2021-01-27] MEDS: **hydrALAZINE HCL** 25 MG TAB PO SCH ×3 (06:00→21:27)
[2021-01-27] MEDS: LEVOTHYROXINE 100MCG TABLET (0.1MG) PO SCH (06:05)
[2021-01-27 06:41] VITALS: BP 136/72
[2021-01-27] MEDS: HumaLOG INSULIN (NovoLOG) PER UNIT SC SCH ×4 (07:02→21:00)
[2021-01-27] MEDS: GLIMEPIRIDE 2 MG TAB PO SCH ×2 (07:38→16:57)
[2021-01-27] MEDS: ANALGESIC BALM CRM 3OZ TOP SCH ×3 (09:00→21:25)
[2021-01-27] MEDS: LIDOCAINE 5% (LIDODERM) PATCH TD SCH (09:00)
[2021-01-27] MEDS: FLUTICASONE PROP 0.05% NASAL SPRAY 16 GM (FLONASE) NARES SCH (09:23)
[2021-01-27] MEDS: DOCUSATE SODIUM 100MG CAPSULE PO SCH ×2 (09:27→21:26)
[2021-01-27] MEDS: ASPIRIN 81MG ENTERIC TABLET PO SCH (09:28)
[2021-01-27] MEDS: TAMSULOSIN 0.4 MG CAP PO SCH (09:28)
[2021-01-27] MEDS: lamoTRIgine 100MG TAB PO SCH (09:28)
[2021-01-27] MEDS: BENZTROPINE 1 MG TAB PO SCH (09:28)
[2021-01-27] MEDS: OMEPRAZOLE 20 MG CAP PO SCH (09:28)
[2021-01-27] MEDS: atenoloL 25 MG TAB PO SCH ×2 (09:29→21:25)
[2021-01-27] MEDS: oxyBUTYnin 5 MG TAB PO SCH (09:29)
[2021-01-27] MEDS: VITAMIN D (CHOLECALCIFEROL) 400 INTERNATIONAL UNITS TAB PO SCH (09:29)
[2021-01-27] MEDS: OMEGA-3 1000MG CAPSULE PO SCH (09:30)
[2021-01-27] MEDS: ACETAMINOPHEN TAB 650MG DOSE (2X325MG) PO PRN ×2 (09:31→21:30)
--- NOTE | 2021-01-27 12:19 | REP ---
INDICATION: R foot pain COMPARISON: None. TECHNIQUE: AP and lateral right foot radiographs FINDINGS: The osseous structures and joint spaces are intact and normal. There is no evidence for acute fracture or dislocation. Surrounding soft tissues are unremarkable. No subcutaneous emphysema or radiodense foreign body. IMPRESSION: Normal two-view series of the right foot. No acute fracture or dislocation. <Electronically signed by Yoandy Sandoval > 01/27/21 [id number]
--- NOTE | 2021-01-27 13:34 | MHIPNPDOC ---
[facility] Progress Note Progress Note DATE OF SERVICE: 01/27/21 HISTORY: Patient a 50 y/o man with a past history of bipolar disorder and numerous admissions since his 20's. Was d/c from [facility] [place] Jan 2010 and living in [facility] long term since. Was admitted on this occasion due to disorganized and paranoid behavior. Currently remains in contact isolation due to possible exposure previous treatment nursing staff. Interval: Patient was seen lying in bed, sleeping reports throat pain is significantly improved and lab testing has been negative, reports some pain in right foot which is not going away with pain medications, agrees to have x-ray done of the right foot to assess for any fractures. Otherwise denies any acute physical complaints, feels mood is even, continues to be concrete with periods of hypomania at night, but was reportedly doing better today. VITAL SIGNS: See below. NEW TEST RESULTS: none, swab pending CURRENT MEDICATIONS: See below. MENTAL STATUS EXAMINATION: Patient is a 50-year old male, wearing masks and glasses without redirection, no acute distress, elevated BMI, somewhat improved hygiene Speech: spontaneous, normal rate Language skills are poor. Thought processes including: Remains disorganized, concrete, less so than previous days Thought content: Denies Suicidal thoughts, intent or plan. Abstract reasoning, and computation: Poor Description of associations: concrete Description of abnormal or psychotic thoughts: No change, continues to report chronic AH, less bothersome recently Judgment: poor, improving Insight: poor, improving Orientation: to person, place, time Recent and remote memory: poor Attention span and concentration: Poor, distractible Language: Maldivian Fund of knowledge: Below average Mood: "good" affect: No change, is euthymic, concrete, disorganized. DIAGNOSES: 1. Schizoaffective disorder bipolar type 2. Hypertension started on a regimen of hydralazine, lisinopril, 3. Diabetes, supp. glimepiride, insulin sliding scale 4. Back pain, lidocaine patch 5. sore throat, supp robittusin, ASSESSMENT: Continues to be stable, concrete, pending placement, ordered xray fo r foot pain, increased cogentin to see if helps, as possibly acute dystonia. MANAGEMENT PLAN: No change, continue medications. Pending placement. RSV, influenza and covid panel negative, swab negative. Treatment for sore throat primarily supportive with Robitussin, fluids and rest. 6 months retention previously completed. Has AOT, pending [facility] placement. Patient is highly sensitive to any medication changes with rapid decompensation. Vitals continue to be stable on blood pressure medication regimen, put on by hospitalist team. TIME SPENT: 20 minutes. Vital Signs Vital Signs Date Time Temp Pulse Resp B/P (MAP) Pulse Ox O2 Delivery O2 Flow Rate FiO2 01/27/21 09:30 Room Air 01/27/21 09:29 136/72 01/27/21 09:29 69 01/27/21 06:41 97.4 16 94 Laboratory Data 24H Labs Laboratory Tests 2 01/26/21 16:58: Bedside Glucose (Misc Panel) 163H 01/26/21 21:37: Bedside Glucose (Misc Panel) 179H 01/27/21 06:09: Bedside Glucose (Misc Panel) 135H 01/27/21 11:56: Bedside Glucose (Misc Panel) 176H Current Medications Current Medications Medications (Trade) Dose Ordered Sig/Kailey Route PRN Reason Start Time Stop Time Status Last Admin Dose Admin Acetaminophen (Tylenol Tab) 650 mg Q6HP PRN PO HEADACHE or MILD DISCOMFORT 12/01/20 16:05 01/27/21 09:31 Acetaminophen (Tylenol Tab) 650 mg Q6HP PRN PO HEADACHE or MILD DISCOMFORT 11/18/20 12:40 11/24/20 01:45 DC 11/23/20 03:09 Al Hydrox/Mg Hydrox/Simethicone (Mylanta) 30 ml Q4HP PRN PO HEARTBURN/INDIGESTION 11/18/20 12:40 11/24/20 01:45 DC 11/23/20 22:34 Amlodipine Besylate (Norvasc) 10 mg DAILY PO 11/19/20 09:00 11/22/20 08:55 DC 11/22/20 08:20 Aspirin (Ecotrin) 81 mg DAILY PO 11/24/20 09:00 01/27/21 09:28 Aspirin (Ecotrin) 81 mg QAM PO 11/22/20 09:00 11/24/20 01:45 DC 11/23/20 07:58 Atenolol (Tenormin) 25 mg BID PO 11/22/20 09:00 11/22/20 12:53 DC 11/22/20 09:51 Atenolol (Tenormin) 25 mg BID PO 11/24/20 09:00 10/11/21 09:29 Atenolol (Tenormin) 50 mg BID PO 11/22/20 21:00 11/24/20 00:13 DC 11/23/20 21:16 Atorvastatin Calcium (Lipitor) 40 mg QHS PO 11/18/20 21:00 11/24/20 01:45 DC 11/23/20 21:16 Atorvastatin Calcium (Lipitor) 40 mg QHS PO 11/24/20 21:00 01/26/21 21:45 Benztropine Mesylate (Cogentin) 1 mg BID PO 11/18/20 09:00 11/24/20 01:45 DC 11/23/20 21:15 Benztropine Mesylate (Cogentin) 1 mg BID PO 11/24/20 09:00 01/27/21 10:57 DC 01/27/21 09:28 Benztropine Mesylate (Cogentin) 2 mg BID PO 01/27/21 21:00 Cyclobenzaprine HCl (Flexeril) 10 mg QHS PO 11/20/20 21:00 11/24/20 01:45 DC 11/23/20 21:16 Cyclobenzaprine HCl (Flexeril) 10 mg QHS PO 11/24/20 21:00 01/26/21 21:43 Dextrose (Dextrose 50%) 25 ml ASDIRECTED PRN IV SEE LABEL COMMENTS 01/01/21 16:35 Diphenhydramine HCl (Benadryl) 50 mg Q8HP PRN PO AGITATION 11/19/20 09:10 11/24/20 01:45 DC 11/23/20 17:51 Diphenhydramine HCl (Benadryl) 50 mg Q8HP PRN PO AGITATION 11/24/20 10:55 01/25/21 21:42 Diphenhydramine HCl (Benadryl) 50 mg STAT STAT IM 11/26/20 02:41 11/26/20 02:44 DC 11/26/20 02:53 Diphenhydramine HCl (Benadryl) 50 mg STAT STAT PO 11/19/20 06:48 11/19/20 06:50 DC 11/19/20 07:06 Docusate Sodium (Colace) 100 mg BID PO 11/18/20 21:00 11/24/20 01:45 DC 11/23/20 21:15 Docusate Sodium (Colace) 100 mg BID PO 11/24/20 09:00 01/27/21 09:27 Fish Oil ([place]-3 (1000mg)) 1 cap DAILY PO 12/06/20 09:00 01/27/21 09:30 Fluticasone Propionate (Flonase 0.05% Nasal [place]) 2 spray DAILY NARES 11/19/20 09:00 11/24/20 01:45 DC 11/23/20 08:01 Fluticasone Propionate (Flonase 0.05% Nasal [place]) 2 spray DAILY NARES 11/24/20 09:00 01/27/21 09:23 Glimepiride (Amaryl) 2 mg BID@0730,1730 PO 01/13/21 17:30 01/27/21 07:38 Glucagon (Glucagon) 1 mg ASDIRECTED PRN SC SEE LABEL COMMENTS 01/01/21 16:35 Glucose (Glucose) 16 GM ASDIRECTED PRN PO SEE LABEL COMMENTS 01/01/21 16:35 Guaifenesin/ Dextromethorphan (Robitussin Dm) 10 ml Q4HP PRN PO COUGH 01/01/21 11:40 01/25/21 12:46 Haloperidol (Haldol) 10 mg Q8HP PRN PO AGITATION 11/19/20 09:10 11/24/20 01:45 DC 11/23/20 23:21 Haloperidol (Haldol) 10 mg Q8HP PRN PO AGITATION 11/24/20 10:55 01/15/21 21:20 Haloperidol (Haldol) 10 mg QHS PO 11/19/20 21:00 11/19/20 09:48 DC Haloperidol (Haldol) 10 mg QHS PO 11/19/20 21:00 11/24/20 01:45 DC 11/23/20 21:16 Haloperidol (Haldol) 10 mg QHS PO 11/24/20 21:00 12/11/20 10:47 DC 12/10/20 21:45 Haloperidol (Haldol) 10 mg QHS PO 12/19/20 21:00 01/26/21 21:45 Haloperidol (Haldol) 10 mg STAT STAT IM 11/26/20 02:41 11/26/20 02:44 DC 11/26/20 02:52 Haloperidol (Haldol) 10 mg STAT STAT PO 11/19/20 06:48 11/19/20 06:50 DC 11/19/20 07:06 Haloperidol (Haldol) 15 mg QHS PO 12/11/20 21:00 12/19/20 10:34 DC 12/18/20 20:05 Haloperidol Decanoate (Haldol Decanoate) 100 mg Q28D IM 11/28/20 12:00 01/23/21 12:07 Home Med (Med Rec Complete!) ASDIRECTED XX 11/17/20 23:25 11/17/20 23:24 DC Hydralazine HCl (Apresoline) 25 mg Q8H PO 01/13/21 14:00 01/26/21 21:45 Ibuprofen (Advil) 800 mg Q12H PO 01/08/21 21:00 01/12/21 16:02 DC 01/12/21 08:43 Ibuprofen (Advil) 800 mg Q8H PO 12/11/20 14:00 01/08/21 14:46 DC 01/08/21 13:01 Insulin Human Lispro (HumaLOG INSULIN) SEE PROTOCOL TABLE AC SC 01/01/21 17:30 01/27/21 12:09 Insulin Human Lispro (HumaLOG INSULIN) SEE PROTOCOL TABLE QHS SC 01/01/21 21:00 01/12/21 20:46 Lamotrigine (LaMICtal) 200 mg DAILY PO 11/18/20 09:00 11/24/20 01:45 DC 11/23/20 08:00 Lamotrigine (LaMICtal) 200 mg DAILY PO 11/24/20 09:00 01/27/21 09:28 Levothyroxine Sodium (Synthroid) 100 mcg DAILY@06 PO 11/24/20 06:00 01/27/21 06:05 Levothyroxine Sodium (Synthroid) 100 mcg DAILY@0600 PO 11/19/20 06:00 11/24/20 01:45 DC 11/23/20 05:05 Lidocaine (Lidoderm Patch) 1 patch DAILY TD 01/08/21 09:00 01/15/21 10:23 DC 01/15/21 08:38 Lidocaine (Lidoderm Patch) 2 patch DAILY TD 01/15/21 11:00 01/26/21 09:06 Lisinopril (Prinivil) 20 mg DAILY PO 01/13/21 09:00 01/27/21 09:29 Lorazepam (Ativan) 1 mg Q12HP PRN PO ANXIETY/AGITATION 01/13/21 12:50 01/13/21 12:52 DC Lorazepam (Ativan) 1 mg Q12HP PRN PO ANXIETY/AGITATION 01/13/21 12:52 01/21/21 11:25 DC 01/20/21 00:57 Lorazepam (Ativan) 1 mg Q12HP PRN PO ANXIETY/AGITATION 01/21/21 11:25 01/25/21 21:42 Lorazepam (Ativan) 1 mg Q8HP PRN PO ANXIETY/AGITATION 01/13/21 12:50 01/13/21 12:51 DC Lorazepam (Ativan) 2 mg Q8HP PRN PO ANXIETY/AGITATION 12/02/20 12:05 01/13/21 12:47 DC 01/11/21 19:00 Lorazepam (Ativan) 2 mg Q8HP PRN PO AGITATION 11/19/20 09:10 11/24/20 01:45 DC 11/23/20 23:21 Lorazepam (Ativan) 2 mg Q8HP PRN PO AGITATION 11/24/20 10:55 12/01/20 10:54 DC 11/30/20 22:04 Lorazepam (Ativan) 2 mg STAT STAT IM 11/26/20 02:41 11/26/20 02:44 DC 11/26/20 02:53 Lorazepam (Ativan) 2 mg STAT STAT PO 11/19/20 06:48 11/19/20 06:50 DC 11/19/20 07:06 Losartan Potassium (Cozaar) 50 mg DAILY PO 11/19/20 09:00 11/22/20 08:55 DC 11/22/20 08:20 Magnesium Hydroxide (Milk Of Magnesia) 30 ml DAILYPRN PRN PO CONSTIPATION 11/18/20 12:40 11/24/20 01:45 DC Magnesium Hydroxide (Milk Of Magnesia) 30 ml DAILYPRN PRN PO CONSTIPATION 11/24/20 10:55 01/08/21 17:19 Magnesium Sulfate (Epsom Salt) 1 dose DAILY PRN TOP MILD DISCOMFORT 01/15/21 12:00 Menthol/Methyl Salicylate (Bengay Cream) Allow patient to apply t... BID PRN TOP MILD PAIN (PS 1-4) 12/19/20 11:40 01/01/21 12:36 DC 01/01/21 09:02 Menthol/Methyl Salicylate (Bengay Cream) Allow patient to apply t... TID TOP 01/01/21 16:00 01/26/21 16:32 Metformin HCl (Glucophage) 1,000 mg BID@08,18 PO 11/24/20 08:00 01/01/21 16:37 DC 01/01/21 07:34 Metformin HCl (Glucophage) 1,000 mg BID@0800,1800 PO 11/18/20 18:00 11/24/20 01:45 DC 11/23/20 17:34 Miscellaneous (Unresolved Clarification Entry) SEE LABEL COMMENTS DAILY XX 11/30/20 09:00 12/02/20 09:53 DC Miscellaneous (Unresolved Clarification Entry) SEE LABEL COMMENTS DAILY XX 12/02/20 09:00 12/02/20 12:12 DC Miscellaneous (Unresolved Clarification Entry) SEE LABEL COMMENTS DAILY XX 12/13/20 09:00 12/15/20 10:07 DC Miscellaneous (Unresolved Clarification Entry) SEE LABEL COMMENTS DAILY XX 12/30/20 09:00 12/30/20 15:31 DC Miscellaneous (Unresolved Clarification Entry) SEE LABEL COMMENTS DAILY XX 12/30/20 09:00 Cancel Miscellaneous (Unresolved Clarification Entry) SEE LABEL COMMENTS DAILY XX 01/07/21 09:00 01/08/21 07:30 DC Miscellaneous (Unresolved Clarification Entry) SEE LABEL COMMENTS DAILY XX 12/22/20 09:00 12/24/20 14:02 DC Miscellaneous (Unresolved Clarification Entry) SEE LABEL COMMENTS DAILY XX 01/27/21 09:00 01/27/21 13:20 DC Miscellaneous (Unresolved Clarification Entry) SEE LABEL COMMENTS DAILY XX 01/18/21 09:00 01/21/21 10:25 DC Miscellaneous (Unresolved Patient Own Med Order) SEE LABEL COMMENTS UNRESOLVED XX 01/15/21 00:01 01/16/21 15:59 DC Montelukast Sodium (Singulair) 10 mg QHS PO 11/18/20 21:00 11/24/20 01:45 DC 11/23/20 21:15 Montelukast Sodium (Singulair) 10 mg QHS PO 11/24/20 21:00 01/26/21 21:43 Non-Formulary Medication ( See Comment Field Below ) REMOVE LIDODERM PATCH DAILY@ XX 01/06/21 21:00 01/06/21 23:59 DC 01/06/21 21:00 Non-Formulary Medication ( See Comment Field Below ) REMOVE LIDODERM PATCHES DAILY@ XX 01/08/21 21:00 01/25/21 20:34 Omeprazole (PriLOSEC) 20 mg DAILY PO 12/11/20 09:00 01/27/21 09:28 Oxybutynin Chloride (Ditropan) 5 mg DAILY PO 11/19/20 09:00 11/24/20 01:45 DC 11/23/20 08:00 Oxybutynin Chloride (Ditropan) 5 mg DAILY PO 11/24/20 09:00 01/27/21 09:29 Patient Own Medication (Patient'S Own Med) valbenazine (ingrezza)80MG CAP TAKE... DAILY PO 01/15/21 09:00 01/16/21 15:59 DC Propranolol HCl (Inderal) 10 mg BID PO 11/18/20 21:00 11/22/20 08:55 DC 11/22/20 08:20 Quetiapine Fumarate (SEROquel) 200 mg QHS PO 11/19/20 21:00 11/24/20 01:45 DC 11/23/20 21:15 Quetiapine Fumarate (SEROquel) 200 mg QHS PO 11/24/20 21:00 12/04/20 08:57 DC 12/03/20 20:20 Quetiapine Fumarate (SEROquel) 300 mg QHS PO 12/04/20 21:00 01/26/21 21:46 Saliva Substitute (Mouthkote) ASDIRECTED PRN MT DRY MOUTH 01/01/21 12:30 01/11/21 15:24 Tamsulosin HCl (Flomax) 0.8 mg DAILY PO 11/19/20 09:00 11/24/20 01:45 DC 11/23/20 08:01 Tamsulosin HCl (Flomax) 0.8 mg DAILY PO 11/24/20 09:00 01/27/21 09:28 Trazodone HCl (Desyrel) 50 mg QPM PO 01/06/21 21:00 01/26/21 21:45 Trazodone HCl (Desyrel) 100 mg QPM PO 11/18/20 21:00 11/24/20 01:45 DC 11/23/20 21:16 Trazodone HCl (Desyrel) 100 mg QPM PO 11/24/20 21:00 01/06/21 10:12 DC 01/05/21 20:36 Vitamin D (Vitamin D) 400 units DAILY PO 11/19/20 09:00 11/24/20 01:45 DC 11/23/20 08:00 Vitamin D (Vitamin D) 400 units DAILY PO 11/24/20 09:00 01/27/21 09:29 Allergies Coded Allergies: Penicillins (Verified Allergy, Intermediate, rash, 01/02/19) latex (Verified Allergy, Intermediate, rash, 12/13/19) divalproex sodium (Verified Allergy, Unknown, 01/02/19) AYESHA MOLINA MD Jan 27, 2021 13:34
[2021-01-27 16:45] VITALS: BP 140/84
[2021-01-27] MEDS: **NOTE PATIENT COMMENT** MISC XX SCH ×2 (21:00→21:26)
[2021-01-27] MEDS: MONTELUKAST 10 MG TAB PO SCH (21:25)
[2021-01-27] MEDS: BENZTROPINE 2 MG TAB PO SCH (21:25)
[2021-01-27] MEDS: CYCLOBENZAPRINE 10MG TABLET PO SCH (21:25)
[2021-01-27] MEDS: haloperidoL 5 MG TAB PO SCH (21:25)
[2021-01-27] MEDS: ATORVASTATIN 20 MG TAB PO SCH (21:26)
[2021-01-27] MEDS: QUEtiapine FUMARATE 100 MG TAB PO SCH (21:26)
[2021-01-27] MEDS: traZODone 50 MG TAB PO SCH (21:26)
[2021-01-28] MEDS: **hydrALAZINE HCL** 25 MG TAB PO SCH ×3 (06:00→22:00)
[2021-01-28 06:38] VITALS: BP 153/91
[2021-01-28] MEDS: GLIMEPIRIDE 2 MG TAB PO SCH ×2 (07:04→16:45)
[2021-01-28] MEDS: HumaLOG INSULIN (NovoLOG) PER UNIT SC SCH ×4 (07:04→20:23)
[2021-01-28] MEDS: LEVOTHYROXINE 100MCG TABLET (0.1MG) PO SCH (07:04)
[2021-01-28] MEDS: LIDOCAINE 5% (LIDODERM) PATCH TD SCH (09:00)
[2021-01-28] MEDS: ANALGESIC BALM CRM 3OZ TOP SCH ×3 (09:00→20:23)
[2021-01-28] MEDS: FLUTICASONE PROP 0.05% NASAL SPRAY 16 GM (FLONASE) NARES SCH (09:27)
[2021-01-28] MEDS: OMEPRAZOLE 20 MG CAP PO SCH (09:28)
[2021-01-28] MEDS: TAMSULOSIN 0.4 MG CAP PO SCH (09:28)
[2021-01-28] MEDS: OMEGA-3 1000MG CAPSULE PO SCH (09:28)
[2021-01-28] MEDS: lamoTRIgine 100MG TAB PO SCH (09:28)
[2021-01-28] MEDS: atenoloL 25 MG TAB PO SCH ×2 (09:28→20:24)
[2021-01-28] MEDS: oxyBUTYnin 5 MG TAB PO SCH (09:28)
[2021-01-28] MEDS: DOCUSATE SODIUM 100MG CAPSULE PO SCH ×2 (09:28→20:25)
[2021-01-28] MEDS: ASPIRIN 81MG ENTERIC TABLET PO SCH (09:28)
[2021-01-28] MEDS: BENZTROPINE 2 MG TAB PO SCH ×2 (09:28→20:25)
[2021-01-28] MEDS: VITAMIN D (CHOLECALCIFEROL) 400 INTERNATIONAL UNITS TAB PO SCH (09:28)
[2021-01-28] MEDS: ACETAMINOPHEN TAB 650MG DOSE (2X325MG) PO PRN ×2 (12:43→18:57)
--- NOTE | 2021-01-28 13:10 | MHIPNPDOC ---
[facility] Progress Note Progress Note DATE OF SERVICE: 01/28/21 HISTORY: Patient a 50 y/o man with a past history of bipolar disorder and numerous admissions since his 20's. Was d/c from [facility] 2010 and living in [facility] since. Was admitted on this occasion due to disorganized and paranoid behavior. Currently remains in contact isolation due to possible exposure previous treatment nursing staff. Interval: Patient was seen in interview room, reports mood to be "good, my mental health is good", states his sore throat has improved and overall he feels good, continues to remain concrete, but denies hallucinations, delusions or paranoia, feels overall thinking is clear, no hypomanic behavior overnight noted per nursing staff, continues to improve on unit with medications. Right foot x- ray was negative. Told to rest foot, continues Tylenol. Foot pain does not interfere with ambulation. VITAL SIGNS: See below. NEW TEST RESULTS: none, swab pending CURRENT MEDICATIONS: See below. MENTAL STATUS EXAMINATION: Patient is a 50-year old male, wearing masks and glasses without redirection, no acute distress, elevated BMI, somewhat improved hygiene Speech: spontaneous, normal rate Language skills are poor. Thought processes including: concrete, less disorganized Thought content: Denies Suicidal thoughts, intent or plan. Denies homicidal ideation, intent or plan Abstract reasoning, and computation: Poor Description of associations: concrete Description of abnormal or psychotic thoughts: No change, continues to report chronic AH, less bothersome recently Judgment: Fair Insight: improving Orientation: to person, place, time Recent and remote memory: poor Attention span and concentration: Poor, distractible Language: Thai Fund of knowledge: Below average Mood: "Mental health is good" affect: euthymic, concrete, less disorganized, no overnight manic behavior reported per nursing staff, does not appear depressed or hypomanic on interview. DIAGNOSES: 1. Schizoaffective disorder bipolar type 2. Hypertension started on a regimen of hydralazine, lisinopril, 3. Diabetes, supp. glimepiride, insulin sliding scale 4. Back pain, lidocaine patch 5. sore throat, supp robittusin, ASSESSMENT: Continues to be stable, concrete, pending placement, right foot x- ray was negative, pending placement. MANAGEMENT PLAN: No change, continue medications. Pending placement. RSV, influenza and covid panel negative, swab negative. Treatment for sore throat primarily supportive with Robitussin, fluids and rest. 6 months retention previously completed. Has AOT, [facility]. Patient is highly sensitive to any medication changes with rapid decompensation. TIME SPENT: 15 minutes. Vital Signs Vital Signs Date Time Temp Pulse Resp B/P (MAP) Pulse Ox O2 Delivery O2 Flow Rate FiO2 01/28/21 09:28 153/91 01/28/21 09:28 67 01/28/21 07:53 Room Air 01/28/21 06:38 97.4 14 97 Laboratory Data 24H Labs Laboratory Tests 2 01/27/21 16:53: Bedside Glucose (Misc Panel) 175H 01/27/21 21:22: Bedside Glucose (Misc Panel) 121H 01/28/21 06:57: Bedside Glucose (Misc Panel) 129H 01/28/21 11:39: Bedside Glucose (Misc Panel) 150H Current Medications Current Medications Medications (Trade) Dose Ordered Sig/Kailey Route PRN Reason Start Time Stop Time Status Last Admin Dose Admin Acetaminophen (Tylenol Tab) 650 mg Q6HP PRN PO HEADACHE or MILD DISCOMFORT 12/01/20 16:05 01/28/21 12:43 Acetaminophen (Tylenol Tab) 650 mg Q6HP PRN PO HEADACHE or MILD DISCOMFORT 11/18/20 12:40 11/24/20 01:45 DC 11/23/20 03:09 Al Hydrox/Mg Hydrox/Simethicone (Mylanta) 30 ml Q4HP PRN PO HEARTBURN/INDIGESTION 11/18/20 12:40 11/24/20 01:45 DC 11/23/20 22:34 Amlodipine Besylate (Norvasc) 10 mg DAILY PO 11/19/20 09:00 11/22/20 08:55 DC 11/22/20 08:20 Aspirin (Ecotrin) 81 mg DAILY PO 11/24/20 09:00 01/28/21 09:28 Aspirin (Ecotrin) 81 mg QAM PO 11/22/20 09:00 11/24/20 01:45 DC 11/23/20 07:58 Atenolol (Tenormin) 25 mg BID PO 11/22/20 09:00 11/22/20 12:53 DC 11/22/20 09:51 Atenolol (Tenormin) 25 mg BID PO 11/24/20 09:00 01/28/21 09:28 Atenolol (Tenormin) 50 mg BID PO 11/22/20 21:00 11/24/20 00:13 DC 11/23/20 21:16 Atorvastatin Calcium (Lipitor) 40 mg QHS PO 11/18/20 21:00 11/24/20 01:45 DC 11/23/20 21:16 Atorvastatin Calcium (Lipitor) 40 mg QHS PO 11/24/20 21:00 01/27/21 21:26 Benztropine Mesylate (Cogentin) 1 mg BID PO 11/18/20 09:00 11/24/20 01:45 DC 11/23/20 21:15 Benztropine Mesylate (Cogentin) 1 mg BID PO 11/24/20 09:00 01/27/21 10:57 DC 01/27/21 09:28 Benztropine Mesylate (Cogentin) 2 mg BID PO 01/27/21 21:00 01/28/21 09:28 Cyclobenzaprine HCl (Flexeril) 10 mg QHS PO 11/20/20 21:00 11/24/20 01:45 DC 11/23/20 21:16 Cyclobenzaprine HCl (Flexeril) 10 mg QHS PO 11/24/20 21:00 01/27/21 21:25 Dextrose (Dextrose 50%) 25 ml ASDIRECTED PRN IV SEE LABEL COMMENTS 01/01/21 16:35 Diphenhydramine HCl (Benadryl) 50 mg Q8HP PRN PO AGITATION 11/19/20 09:10 11/24/20 01:45 DC 11/23/20 17:51 Diphenhydramine HCl (Benadryl) 50 mg Q8HP PRN PO AGITATION 11/24/20 10:55 01/25/21 21:42 Diphenhydramine HCl (Benadryl) 50 mg STAT STAT IM 11/26/20 02:41 11/26/20 02:44 DC 11/26/20 02:53 Diphenhydramine HCl (Benadryl) 50 mg STAT STAT PO 11/19/20 06:48 11/19/20 06:50 DC 11/19/20 07:06 Docusate Sodium (Colace) 100 mg BID PO 11/18/20 21:00 11/24/20 01:45 DC 11/23/20 21:15 Docusate Sodium (Colace) 100 mg BID PO 11/24/20 09:00 01/28/21 09:28 Fish Oil (Sunland-3 (1000mg)) 1 cap DAILY PO 12/06/20 09:00 01/28/21 09:28 Fluticasone Propionate (Flonase 0.05% Nasal [place]) 2 spray DAILY NARES 11/19/20 09:00 11/24/20 01:45 DC 11/23/20 08:01 Fluticasone Propionate (Flonase 0.05% Nasal [place]) 2 spray DAILY NARES 11/24/20 09:00 01/28/21 09:27 Glimepiride (Amaryl) 2 mg BID@0730,1730 PO 01/13/21 17:30 01/28/21 07:04 Glucagon (Glucagon) 1 mg ASDIRECTED PRN SC SEE LABEL COMMENTS 01/01/21 16:35 Glucose (Glucose) 16 GM ASDIRECTED PRN PO SEE LABEL COMMENTS 01/01/21 16:35 Guaifenesin/ Dextromethorphan (Robitussin Dm) 10 ml Q4HP PRN PO COUGH 01/01/21 11:40 01/25/21 12:46 Haloperidol (Haldol) 10 mg Q8HP PRN PO AGITATION 11/19/20 09:10 11/24/20 01:45 DC 11/23/20 23:21 Haloperidol (Haldol) 10 mg Q8HP PRN PO AGITATION 11/24/20 10:55 01/15/21 21:20 Haloperidol (Haldol) 10 mg QHS PO 11/19/20 21:00 11/19/20 09:48 DC Haloperidol (Haldol) 10 mg QHS PO 11/19/20 21:00 11/24/20 01:45 DC 11/23/20 21:16 Haloperidol (Haldol) 10 mg QHS PO 11/24/20 21:00 12/11/20 10:47 DC 12/10/20 21:45 Haloperidol (Haldol) 10 mg QHS PO 12/19/20 21:00 01/27/21 21:25 Haloperidol (Haldol) 10 mg STAT STAT IM 11/26/20 02:41 11/26/20 02:44 DC 11/26/20 02:52 Haloperidol (Haldol) 10 mg STAT STAT PO 11/19/20 06:48 11/19/20 06:50 DC 11/19/20 07:06 Haloperidol (Haldol) 15 mg QHS PO 12/11/20 21:00 12/19/20 10:34 DC 12/18/20 20:05 Haloperidol Decanoate (Haldol Decanoate) 100 mg Q28D IM 11/28/20 12:00 01/23/21 12:07 Home Med (Med Rec Complete!) ASDIRECTED XX 11/17/20 23:25 11/17/20 23:24 DC Hydralazine HCl (Apresoline) 25 mg Q8H PO 01/13/21 14:00 01/26/21 21:45 Ibuprofen (Advil) 800 mg Q12H PO 01/08/21 21:00 01/12/21 16:02 DC 01/12/21 08:43 Ibuprofen (Advil) 800 mg Q8H PO 12/11/20 14:00 01/08/21 14:46 DC 01/08/21 13:01 Insulin Human Lispro (HumaLOG INSULIN) SEE PROTOCOL TABLE AC SC 01/01/21 17:30 01/28/21 12:10 Insulin Human Lispro (HumaLOG INSULIN) SEE PROTOCOL TABLE QHS SC 01/01/21 21:00 01/12/21 20:46 Lamotrigine (LaMICtal) 200 mg DAILY PO 11/18/20 09:00 11/24/20 01:45 DC 11/23/20 08:00 Lamotrigine (LaMICtal) 200 mg DAILY PO 11/24/20 09:00 01/28/21 09:28 Levothyroxine Sodium (Synthroid) 100 mcg DAILY@06 PO 11/24/20 06:00 01/28/21 07:04 Levothyroxine Sodium (Synthroid) 100 mcg DAILY@0600 PO 11/19/20 06:00 11/24/20 01:45 DC 11/23/20 05:05 Lidocaine (Lidoderm Patch) 1 patch DAILY TD 01/08/21 09:00 01/15/21 10:23 DC 01/15/21 08:38 Lidocaine (Lidoderm Patch) 2 patch DAILY TD 01/15/21 11:00 01/26/21 09:06 Lisinopril (Prinivil) 20 mg DAILY PO 01/13/21 09:00 01/28/21 09:28 Lorazepam (Ativan) 1 mg Q12HP PRN PO ANXIETY/AGITATION 01/13/21 12:50 01/13/21 12:52 DC Lorazepam (Ativan) 1 mg Q12HP PRN PO ANXIETY/AGITATION 01/13/21 12:52 01/21/21 11:25 DC 01/20/21 00:57 Lorazepam (Ativan) 1 mg Q12HP PRN PO ANXIETY/AGITATION 01/21/21 11:25 01/25/21 21:42 Lorazepam (Ativan) 1 mg Q8HP PRN PO ANXIETY/AGITATION 01/13/21 12:50 01/13/21 12:51 DC Lorazepam (Ativan) 2 mg Q8HP PRN PO ANXIETY/AGITATION 12/02/20 12:05 01/13/21 12:47 DC 01/11/21 19:00 Lorazepam (Ativan) 2 mg Q8HP PRN PO AGITATION 11/19/20 09:10 11/24/20 01:45 DC 11/23/20 23:21 Lorazepam (Ativan) 2 mg Q8HP PRN PO AGITATION 11/24/20 10:55 12/01/20 10:54 DC 11/30/20 22:04 Lorazepam (Ativan) 2 mg STAT STAT IM 11/26/20 02:41 11/26/20 02:44 DC 11/26/20 02:53 Lorazepam (Ativan) 2 mg STAT STAT PO 11/19/20 06:48 11/19/20 06:50 DC 11/19/20 07:06 Losartan Potassium (Cozaar) 50 mg DAILY PO 11/19/20 09:00 11/22/20 08:55 DC 11/22/20 08:20 Magnesium Hydroxide (Milk Of Magnesia) 30 ml DAILYPRN PRN PO CONSTIPATION 11/18/20 12:40 11/24/20 01:45 DC Magnesium Hydroxide (Milk Of Magnesia) 30 ml DAILYPRN PRN PO CONSTIPATION 11/24/20 10:55 01/08/21 17:19 Magnesium Sulfate (Epsom Salt) 1 dose DAILY PRN TOP MILD DISCOMFORT 01/15/21 12:00 Menthol/Methyl Salicylate (Bengay Cream) Allow patient to apply t... BID PRN TOP MILD PAIN (PS 1-4) 12/19/20 11:40 01/01/21 12:36 DC 01/01/21 09:02 Menthol/Methyl Salicylate (Bengay Cream) Allow patient to apply t... TID TOP 01/01/21 16:00 01/27/21 21:25 Metformin HCl (Glucophage) 1,000 mg BID@08,18 PO 11/24/20 08:00 01/01/21 16:37 DC 01/01/21 07:34 Metformin HCl (Glucophage) 1,000 mg BID@0800,1800 PO 11/18/20 18:00 11/24/20 01:45 DC 11/23/20 17:34 Miscellaneous (Unresolved Clarification Entry) SEE LABEL COMMENTS DAILY XX 11/30/20 09:00 12/02/20 09:53 DC Miscellaneous (Unresolved Clarification Entry) SEE LABEL COMMENTS DAILY XX 12/02/20 09:00 12/02/20 12:12 DC Miscellaneous (Unresolved Clarification Entry) SEE LABEL COMMENTS DAILY XX 12/13/20 09:00 12/15/20 10:07 DC Miscellaneous (Unresolved Clarification Entry) SEE LABEL COMMENTS DAILY XX 12/30/20 09:00 12/30/20 15:31 DC Miscellaneous (Unresolved Clarification Entry) SEE LABEL COMMENTS DAILY XX 12/30/20 09:00 Cancel Miscellaneous (Unresolved Clarification Entry) SEE LABEL COMMENTS DAILY XX 01/07/21 09:00 01/08/21 07:30 DC Miscellaneous (Unresolved Clarification Entry) SEE LABEL COMMENTS DAILY XX 12/22/20 09:00 12/24/20 14:02 DC Miscellaneous (Unresolved Clarification Entry) SEE LABEL COMMENTS DAILY XX 01/27/21 09:00 01/27/21 13:20 DC Miscellaneous (Unresolved Clarification Entry) SEE LABEL COMMENTS DAILY XX 01/18/21 09:00 01/21/21 10:25 DC Miscellaneous (Unresolved Patient Own Med Order) SEE LABEL COMMENTS UNRESOLVED XX 01/15/21 00:01 01/16/21 15:59 DC Montelukast Sodium (Singulair) 10 mg QHS PO 11/18/20 21:00 11/24/20 01:45 DC 11/23/20 21:15 Montelukast Sodium (Singulair) 10 mg QHS PO 11/24/20 21:00 01/27/21 21:25 Non-Formulary Medication ( See Comment Field Below ) REMOVE LIDODERM PATCH DAILY@ XX 01/06/21 21:00 01/06/21 23:59 DC 01/06/21 21:00 Non-Formulary Medication ( See Comment Field Below ) REMOVE LIDODERM PATCHES DAILY@ XX 01/08/21 21:00 01/25/21 20:34 Omeprazole (PriLOSEC) 20 mg DAILY PO 12/11/20 09:00 01/28/21 09:28 Oxybutynin Chloride (Ditropan) 5 mg DAILY PO 11/19/20 09:00 11/24/20 01:45 DC 11/23/20 08:00 Oxybutynin Chloride (Ditropan) 5 mg DAILY PO 11/24/20 09:00 01/28/21 09:28 Patient Own Medication (Patient'S Own Med) valbenazine (ingrezza)80MG CAP TAKE... DAILY PO 01/15/21 09:00 01/16/21 15:59 DC Propranolol HCl (Inderal) 10 mg BID PO 11/18/20 21:00 11/22/20 08:55 DC 11/22/20 08:20 Quetiapine Fumarate (SEROquel) 200 mg QHS PO 11/19/20 21:00 11/24/20 01:45 DC 11/23/20 21:15 Quetiapine Fumarate (SEROquel) 200 mg QHS PO 11/24/20 21:00 12/04/20 08:57 DC 12/03/20 20:20 Quetiapine Fumarate (SEROquel) 300 mg QHS PO 12/04/20 21:00 01/27/21 21:26 Saliva Substitute (Mouthkote) ASDIRECTED PRN MT DRY MOUTH 01/01/21 12:30 01/11/21 15:24 Tamsulosin HCl (Flomax) 0.8 mg DAILY PO 11/19/20 09:00 11/24/20 01:45 DC 11/23/20 08:01 Tamsulosin HCl (Flomax) 0.8 mg DAILY PO 11/24/20 09:00 01/28/21 09:28 Trazodone HCl (Desyrel) 50 mg QPM PO 01/06/21 21:00 01/27/21 21:26 Trazodone HCl (Desyrel) 100 mg QPM PO 11/18/20 21:00 11/24/20 01:45 DC 11/23/20 21:16 Trazodone HCl (Desyrel) 100 mg QPM PO 11/24/20 21:00 01/06/21 10:12 DC 01/05/21 20:36 Vitamin D (Vitamin D) 400 units DAILY PO 11/19/20 09:00 11/24/20 01:45 DC 11/23/20 08:00 Vitamin D (Vitamin D) 400 units DAILY PO 11/24/20 09:00 01/28/21 09:28 Allergies Coded Allergies: Penicillins (Verified Allergy, Intermediate, rash, 01/02/19) latex (Verified Allergy, Intermediate, rash, 12/13/19) divalproex sodium (Verified Allergy, Unknown, 01/02/19) AYESHA MOLINA MD Jan 28, 2021 13:10
[2021-01-28 16:17] VITALS: BP 122/74
[2021-01-28] MEDS: **NOTE PATIENT COMMENT** MISC XX SCH (20:23)
[2021-01-28] MEDS: traZODone 50 MG TAB PO SCH (20:24)
[2021-01-28] MEDS: MONTELUKAST 10 MG TAB PO SCH (20:24)
[2021-01-28] MEDS: ATORVASTATIN 20 MG TAB PO SCH (20:24)
[2021-01-28] MEDS: CYCLOBENZAPRINE 10MG TABLET PO SCH (20:25)
[2021-01-28] MEDS: haloperidoL 5 MG TAB PO SCH (20:25)
[2021-01-28] MEDS: QUEtiapine FUMARATE 100 MG TAB PO SCH (20:25)
[2021-01-29] MEDS: **hydrALAZINE HCL** 25 MG TAB PO SCH ×3 (06:00→21:25)
[2021-01-29 06:58] VITALS: BP 145/81
[2021-01-29] MEDS: LEVOTHYROXINE 100MCG TABLET (0.1MG) PO SCH (07:00)
[2021-01-29] MEDS: GLIMEPIRIDE 2 MG TAB PO SCH ×2 (07:00→16:59)
[2021-01-29] MEDS: HumaLOG INSULIN (NovoLOG) PER UNIT SC SCH ×4 (07:00→20:41)
[2021-01-29] MEDS: FLUTICASONE PROP 0.05% NASAL SPRAY 16 GM (FLONASE) NARES SCH (08:52)
[2021-01-29] MEDS: VITAMIN D (CHOLECALCIFEROL) 400 INTERNATIONAL UNITS TAB PO SCH (08:55)
[2021-01-29] MEDS: OMEGA-3 1000MG CAPSULE PO SCH (08:55)
[2021-01-29] MEDS: atenoloL 25 MG TAB PO SCH ×2 (08:56→20:40)
[2021-01-29] MEDS: ASPIRIN 81MG ENTERIC TABLET PO SCH (08:56)
[2021-01-29] MEDS: TAMSULOSIN 0.4 MG CAP PO SCH (08:56)
[2021-01-29] MEDS: lamoTRIgine 100MG TAB PO SCH (08:56)
[2021-01-29] MEDS: BENZTROPINE 2 MG TAB PO SCH ×2 (08:56→20:41)
[2021-01-29] MEDS: OMEPRAZOLE 20 MG CAP PO SCH (08:56)
[2021-01-29] MEDS: oxyBUTYnin 5 MG TAB PO SCH (08:56)
[2021-01-29] MEDS: DOCUSATE SODIUM 100MG CAPSULE PO SCH ×2 (08:56→20:41)
[2021-01-29] MEDS: ANALGESIC BALM CRM 3OZ TOP SCH ×3 (08:57→20:43)
[2021-01-29] MEDS: LIDOCAINE 5% (LIDODERM) PATCH TD SCH (08:57)
--- NOTE | 2021-01-29 13:00 | MHIPNPDOC ---
[facility] Progress Note Progress Note DATE OF SERVICE: 01/29/21 HISTORY: Patient a 50 y/o man with a past history of bipolar disorder and numerous admissions since his 20's. Was d/c from [facility] [place] Jan 2010 and living in [facility] since. Was admitted on this occasion due to disorganized and paranoid behavior. Currently remains in contact isolation due to possible exposure previous treatment nursing staff. Interval: Patient continues to improve on unit, noted hypomanic behavior for 3 days now, denies depressive symptoms, denies having auditory hallucinations, we discussed possible transition to [facility] versus continuing treatment on unit and he feels that he would like to have some depends at [facility] and feels ready that he could leave possibly tomorrow. Seems to have good insight into his condition and medical symptoms, reporting that the foot pain is present but Tylenol helps with pain and is aware of the x-ray is negative. Denies any suicidal or homicidal ideation. Aware of AOT meeting tomorrow. Denies acute physical complaints apart from the chronic foot pain, but he thinks it is due to tend initis. Denies medication side effects and feels like he is tolerating them well. Reports improved sleep and normal appetite. VITAL SIGNS: See below. NEW TEST RESULTS: none, swab pending CURRENT MEDICATIONS: See below. MENTAL STATUS EXAMINATION: Patient is a 50-year old male, wearing masks and glasses, no acute distress, elevated BMI, somewhat improved hygiene, was seen sitting on bed, appears stated age. Speech: spontaneous, normal rate Language skills are improved Thought processes including: Continues to be somewhat concrete, no longer disorganized Thought content: Denies Suicidal thoughts, intent or plan. Denies homicidal ideation, intent or plan Abstract reasoning, and computation: Improving Description of associations: concrete, was able to associate fruits, but had difficulty associating transportation Description of abnormal or psychotic thoughts: Has been denying auditory hallucinations, delusions or paranoia Judgment: Fair Insight: improving Orientation: to person, place, time Recent and remote memory: Fair Attention span and concentration: Improved, somewhat distractible Language: [place] Fund of knowledge: Below average Mood: Continues to state" my mental health is fine" affect: euthymic, somewhat concrete, no longer disorganized, no winsome or depression, does not appear internally preoccupied DIAGNOSES: 1. Schizoaffective disorder bipolar type 2. Hypertension started on a regimen of hydralazine, lisinopril, 3. Diabetes, supp. glimepiride, insulin sliding scale 4. Back pain, lidocaine patch 5. sore throat, supp robittusin, ASSESSMENT: Continues to be stable, somewhat concrete, pending placement, right foot x-ray was negative, finds Tylenol helpful for foot pain, pending placement. Possible discharge tomorrow to [facility] after AOT meeting. MANAGEMENT PLAN: No change, continue medications. RSV, influenza and covid panel negative, swab negative. Sore throat has improved. 6 months retention previously completed. Has AOT meeting tomorrow. Patient is highly sensitive to any medication changes with rapid decompensation. TIME SPENT: 15 minutes. Vital Signs Vital Signs Date Time Temp Pulse Resp B/P (MAP) Pulse Ox O2 Delivery O2 Flow Rate FiO2 01/29/21 08:56 90 135/85 01/29/21 06:58 97.5 20 96 Room Air Laboratory Data 24H Labs Laboratory Tests 2 01/28/21 16:42: Bedside Glucose (Misc Panel) 126H 01/28/21 20:20: Bedside Glucose (Misc Panel) 221H 01/29/21 06:23: Bedside Glucose (Misc Panel) 98 01/29/21 11:51: Bedside Glucose (Misc Panel) 181H Current Medications Current Medications Medications (Trade) Dose Ordered Sig/Kailey Route PRN Reason Start Time Stop Time Status Last Admin Dose Admin Acetaminophen (Tylenol Tab) 650 mg Q6HP PRN PO HEADACHE or MILD DISCOMFORT 12/01/20 16:05 01/28/21 18:57 Acetaminophen (Tylenol Tab) 650 mg Q6HP PRN PO HEADACHE or MILD DISCOMFORT 11/18/20 12:40 11/24/20 01:45 DC 11/23/20 03:09 Al Hydrox/Mg Hydrox/Simethicone (Mylanta) 30 ml Q4HP PRN PO HEARTBURN/INDIGESTION 11/18/20 12:40 11/24/20 01:45 DC 11/23/20 22:34 Amlodipine Besylate (Norvasc) 10 mg DAILY PO 11/19/20 09:00 11/22/20 08:55 DC 11/22/20 08:20 Aspirin (Ecotrin) 81 mg DAILY PO 11/24/20 09:00 01/29/21 08:56 Aspirin (Ecotrin) 81 mg QAM PO 11/22/20 09:00 11/24/20 01:45 DC 11/23/20 07:58 Atenolol (Tenormin) 25 mg BID PO 11/22/20 09:00 11/22/20 12:53 DC 11/22/20 09:51 Atenolol (Tenormin) 25 mg BID PO 11/24/20 09:00 01/29/21 08:56 Atenolol (Tenormin) 50 mg BID PO 11/22/20 21:00 11/24/20 00:13 DC 11/23/20 21:16 Atorvastatin Calcium (Lipitor) 40 mg QHS PO 11/18/20 21:00 11/24/20 01:45 DC 11/23/20 21:16 Atorvastatin Calcium (Lipitor) 40 mg QHS PO 11/24/20 21:00 01/28/21 20:24 Benztropine Mesylate (Cogentin) 1 mg BID PO 11/18/20 09:00 11/24/20 01:45 DC 11/23/20 21:15 Benztropine Mesylate (Cogentin) 1 mg BID PO 11/24/20 09:00 01/27/21 10:57 DC 01/27/21 09:28 Benztropine Mesylate (Cogentin) 2 mg BID PO 01/27/21 21:00 01/29/21 08:56 Cyclobenzaprine HCl (Flexeril) 10 mg QHS PO 11/20/20 21:00 11/24/20 01:45 DC 11/23/20 21:16 Cyclobenzaprine HCl (Flexeril) 10 mg QHS PO 11/24/20 21:00 01/28/21 20:25 Dextrose (Dextrose 50%) 25 ml ASDIRECTED PRN IV SEE LABEL COMMENTS 01/01/21 16:35 Diphenhydramine HCl (Benadryl) 50 mg Q8HP PRN PO AGITATION 11/19/20 09:10 11/24/20 01:45 DC 11/23/20 17:51 Diphenhydramine HCl (Benadryl) 50 mg Q8HP PRN PO AGITATION 11/24/20 10:55 01/25/21 21:42 Diphenhydramine HCl (Benadryl) 50 mg STAT STAT IM 11/26/20 02:41 11/26/20 02:44 DC 11/26/20 02:53 Diphenhydramine HCl (Benadryl) 50 mg STAT STAT PO 11/19/20 06:48 11/19/20 06:50 DC 11/19/20 07:06 Docusate Sodium (Colace) 100 mg BID PO 11/18/20 21:00 11/24/20 01:45 DC 11/23/20 21:15 Docusate Sodium (Colace) 100 mg BID PO 11/24/20 09:00 01/29/21 08:56 Fish Oil ([place]-3 (1000mg)) 1 cap DAILY PO 12/06/20 09:00 01/29/21 08:55 Fluticasone Propionate (Flonase 0.05% Nasal [place]) 2 spray DAILY NARES 11/19/20 09:00 11/24/20 01:45 DC 11/23/20 08:01 Fluticasone Propionate (Flonase 0.05% Nasal [place]) 2 spray DAILY NARES 11/24/20 09:00 01/29/21 08:52 Glimepiride (Amaryl) 2 mg BID@0730,1730 PO 01/13/21 17:30 01/29/21 07:00 Glucagon (Glucagon) 1 mg ASDIRECTED PRN SC SEE LABEL COMMENTS 01/01/21 16:35 Glucose (Glucose) 16 GM ASDIRECTED PRN PO SEE LABEL COMMENTS 01/01/21 16:35 Guaifenesin/ Dextromethorphan (Robitussin Dm) 10 ml Q4HP PRN PO COUGH 01/01/21 11:40 01/25/21 12:46 Haloperidol (Haldol) 10 mg Q8HP PRN PO AGITATION 11/19/20 09:10 11/24/20 01:45 DC 11/23/20 23:21 Haloperidol (Haldol) 10 mg Q8HP PRN PO AGITATION 11/24/20 10:55 01/15/21 21:20 Haloperidol (Haldol) 10 mg QHS PO 11/19/20 21:00 11/19/20 09:48 DC Haloperidol (Haldol) 10 mg QHS PO 11/19/20 21:00 11/24/20 01:45 DC 11/23/20 21:16 Haloperidol (Haldol) 10 mg QHS PO 11/24/20 21:00 12/11/20 10:47 DC 12/10/20 21:45 Haloperidol (Haldol) 10 mg QHS PO 12/19/20 21:00 01/28/21 20:25 Haloperidol (Haldol) 10 mg STAT STAT IM 11/26/20 02:41 11/26/20 02:44 DC 11/26/20 02:52 Haloperidol (Haldol) 10 mg STAT STAT PO 11/19/20 06:48 11/19/20 06:50 DC 11/19/20 07:06 Haloperidol (Haldol) 15 mg QHS PO 12/11/20 21:00 12/19/20 10:34 DC 12/18/20 20:05 Haloperidol Decanoate (Haldol Decanoate) 100 mg Q28D IM 11/28/20 12:00 01/23/21 12:07 Home Med (Med Rec Complete!) ASDIRECTED XX 11/17/20 23:25 11/17/20 23:24 DC Hydralazine HCl (Apresoline) 25 mg Q8H PO 01/13/21 14:00 01/26/21 21:45 Ibuprofen (Advil) 800 mg Q12H PO 01/08/21 21:00 01/12/21 16:02 DC 01/12/21 08:43 Ibuprofen (Advil) 800 mg Q8H PO 12/11/20 14:00 01/08/21 14:46 DC 01/08/21 13:01 Insulin Human Lispro (HumaLOG INSULIN) SEE PROTOCOL TABLE AC SC 01/01/21 17:30 01/29/21 11:53 Insulin Human Lispro (HumaLOG INSULIN) SEE PROTOCOL TABLE QHS SC 01/01/21 21:00 01/12/21 20:46 Lamotrigine (LaMICtal) 200 mg DAILY PO 11/18/20 09:00 11/24/20 01:45 DC 11/23/20 08:00 Lamotrigine (LaMICtal) 200 mg DAILY PO 11/24/20 09:00 01/29/21 08:56 Levothyroxine Sodium (Synthroid) 100 mcg DAILY@06 PO 11/24/20 06:00 01/29/21 07:00 Levothyroxine Sodium (Synthroid) 100 mcg DAILY@0600 PO 11/19/20 06:00 11/24/20 01:45 DC 11/23/20 05:05 Lidocaine (Lidoderm Patch) 1 patch DAILY TD 01/08/21 09:00 01/15/21 10:23 DC 01/15/21 08:38 Lidocaine (Lidoderm Patch) 2 patch DAILY TD 01/15/21 11:00 01/26/21 09:06 Lisinopril (Prinivil) 20 mg DAILY PO 01/13/21 09:00 01/29/21 08:56 Lorazepam (Ativan) 1 mg Q12HP PRN PO ANXIETY/AGITATION 01/13/21 12:50 01/13/21 12:52 DC Lorazepam (Ativan) 1 mg Q12HP PRN PO ANXIETY/AGITATION 01/13/21 12:52 01/21/21 11:25 DC 01/20/21 00:57 Lorazepam (Ativan) 1 mg Q12HP PRN PO ANXIETY/AGITATION 01/21/21 11:25 01/25/21 21:42 Lorazepam (Ativan) 1 mg Q8HP PRN PO ANXIETY/AGITATION 01/13/21 12:50 01/13/21 12:51 DC Lorazepam (Ativan) 2 mg Q8HP PRN PO ANXIETY/AGITATION 12/02/20 12:05 01/13/21 12:47 DC 01/11/21 19:00 Lorazepam (Ativan) 2 mg Q8HP PRN PO AGITATION 11/19/20 09:10 11/24/20 01:45 DC 11/23/20 23:21 Lorazepam (Ativan) 2 mg Q8HP PRN PO AGITATION 11/24/20 10:55 12/01/20 10:54 DC 11/30/20 22:04 Lorazepam (Ativan) 2 mg STAT STAT IM 11/26/20 02:41 11/26/20 02:44 DC 11/26/20 02:53 Lorazepam (Ativan) 2 mg STAT STAT PO 11/19/20 06:48 11/19/20 06:50 DC 11/19/20 07:06 Losartan Potassium (Cozaar) 50 mg DAILY PO 11/19/20 09:00 11/22/20 08:55 DC 11/22/20 08:20 Magnesium Hydroxide (Milk Of Magnesia) 30 ml DAILYPRN PRN PO CONSTIPATION 11/18/20 12:40 11/24/20 01:45 DC Magnesium Hydroxide (Milk Of Magnesia) 30 ml DAILYPRN PRN PO CONSTIPATION 11/24/20 10:55 01/08/21 17:19 Magnesium Sulfate (Epsom Salt) 1 dose DAILY PRN TOP MILD DISCOMFORT 01/15/21 12:00 Menthol/Methyl Salicylate (Bengay Cream) Allow patient to apply t... BID PRN TOP MILD PAIN (PS 1-4) 12/19/20 11:40 01/01/21 12:36 DC 01/01/21 09:02 Menthol/Methyl Salicylate (Bengay Cream) Allow patient to apply t... TID TOP 01/01/21 16:00 01/28/21 20:23 Metformin HCl (Glucophage) 1,000 mg BID@08,18 PO 11/24/20 08:00 01/01/21 16:37 DC 01/01/21 07:34 Metformin HCl (Glucophage) 1,000 mg BID@0800,1800 PO 11/18/20 18:00 11/24/20 01:45 DC 11/23/20 17:34 Miscellaneous (Unresolved Clarification Entry) SEE LABEL COMMENTS DAILY XX 11/30/20 09:00 12/02/20 09:53 DC Miscellaneous (Unresolved Clarification Entry) SEE LABEL COMMENTS DAILY XX 12/02/20 09:00 12/02/20 12:12 DC Miscellaneous (Unresolved Clarification Entry) SEE LABEL COMMENTS DAILY XX 12/13/20 09:00 12/15/20 10:07 DC Miscellaneous (Unresolved Clarification Entry) SEE LABEL COMMENTS DAILY XX 12/30/20 09:00 12/30/20 15:31 DC Miscellaneous (Unresolved Clarification Entry) SEE LABEL COMMENTS DAILY XX 12/30/20 09:00 Cancel Miscellaneous (Unresolved Clarification Entry) SEE LABEL COMMENTS DAILY XX 01/07/21 09:00 01/08/21 07:30 DC Miscellaneous (Unresolved Clarification Entry) SEE LABEL COMMENTS DAILY XX 12/22/20 09:00 12/24/20 14:02 DC Miscellaneous (Unresolved Clarification Entry) SEE LABEL COMMENTS DAILY XX 01/27/21 09:00 01/27/21 13:20 DC Miscellaneous (Unresolved Clarification Entry) SEE LABEL COMMENTS DAILY XX 01/18/21 09:00 01/21/21 10:25 DC Miscellaneous (Unresolved Patient Own Med Order) SEE LABEL COMMENTS UNRESOLVED XX 01/15/21 00:01 01/16/21 15:59 DC Montelukast Sodium (Singulair) 10 mg QHS PO 11/18/20 21:00 11/24/20 01:45 DC 11/23/20 21:15 Montelukast Sodium (Singulair) 10 mg QHS PO 11/24/20 21:00 01/28/21 20:24 Non-Formulary Medication ( See Comment Field Below ) REMOVE LIDODERM PATCH DAILY@ XX 01/06/21 21:00 01/06/21 23:59 DC 01/06/21 21:00 Non-Formulary Medication ( See Comment Field Below ) REMOVE LIDODERM PATCHES DAILY@21 XX 01/08/21 21:00 01/25/21 20:34 Omeprazole (PriLOSEC) 20 mg DAILY PO 12/11/20 09:00 01/29/21 08:56 Oxybutynin Chloride (Ditropan) 5 mg DAILY PO 11/19/20 09:00 11/24/20 01:45 DC 11/23/20 08:00 Oxybutynin Chloride (Ditropan) 5 mg DAILY PO 11/24/20 09:00 01/29/21 08:56 Patient Own Medication (Patient'S Own Med) valbenazine (ingrezza)80MG CAP TAKE... DAILY PO 01/15/21 09:00 01/16/21 15:59 DC Propranolol HCl (Inderal) 10 mg BID PO 11/18/20 21:00 11/22/20 08:55 DC 11/22/20 08:20 Quetiapine Fumarate (SEROquel) 200 mg QHS PO 11/19/20 21:00 11/24/20 01:45 DC 11/23/20 21:15 Quetiapine Fumarate (SEROquel) 200 mg QHS PO 11/24/20 21:00 12/04/20 08:57 DC 12/03/20 20:20 Quetiapine Fumarate (SEROquel) 300 mg QHS PO 12/04/20 21:00 01/28/21 20:25 Saliva Substitute (Mouthkote) ASDIRECTED PRN MT DRY MOUTH 01/01/21 12:30 01/11/21 15:24 Tamsulosin HCl (Flomax) 0.8 mg DAILY PO 11/19/20 09:00 11/24/20 01:45 DC 11/23/20 08:01 Tamsulosin HCl (Flomax) 0.8 mg DAILY PO 11/24/20 09:00 01/29/21 08:56 Trazodone HCl (Desyrel) 50 mg QPM PO 01/06/21 21:00 01/28/21 20:24 Trazodone HCl (Desyrel) 100 mg QPM PO 11/18/20 21:00 11/24/20 01:45 DC 11/23/20 21:16 Trazodone HCl (Desyrel) 100 mg QPM PO 11/24/20 21:00 01/06/21 10:12 DC 01/05/21 20:36 Vitamin D (Vitamin D) 400 units DAILY PO 11/19/20 09:00 11/24/20 01:45 DC 11/23/20 08:00 Vitamin D (Vitamin D) 400 units DAILY PO 11/24/20 09:00 01/29/21 08:55 Allergies Coded Allergies: Penicillins (Verified Allergy, Intermediate, rash, 01/02/19) latex (Verified Allergy, Intermediate, rash, 12/13/19) divalproex sodium (Verified Allergy, Unknown, 01/02/19) AYESHA MOLINA MD Jan 29, 2021 13:00
[2021-01-29] MEDS: ACETAMINOPHEN TAB 650MG DOSE (2X325MG) PO PRN ×2 (14:17→20:40)
[2021-01-29 16:18] VITALS: BP 128/84
[2021-01-29] MEDS: haloperidoL 5 MG TAB PO SCH (20:40)
[2021-01-29] MEDS: QUEtiapine FUMARATE 100 MG TAB PO SCH (20:41)
[2021-01-29] MEDS: CYCLOBENZAPRINE 10MG TABLET PO SCH (20:41)
[2021-01-29] MEDS: traZODone 50 MG TAB PO SCH (20:41)
[2021-01-29] MEDS: MONTELUKAST 10 MG TAB PO SCH (20:41)
[2021-01-29] MEDS: LORazepam 1 MG TAB PO PRN (20:41)
[2021-01-29] MEDS: diphenhydrAMINE 50MG CAP PO PRN (20:41)
[2021-01-29] MEDS: ATORVASTATIN 20 MG TAB PO SCH (20:41)
[2021-01-29] MEDS: **NOTE PATIENT COMMENT** MISC XX SCH (21:24)
[2021-01-30] MEDS: **hydrALAZINE HCL** 25 MG TAB PO SCH ×3 (06:00→22:00)
[2021-01-30] MEDS: HumaLOG INSULIN (NovoLOG) PER UNIT SC SCH ×4 (06:23→21:00)
[2021-01-30] MEDS: GLIMEPIRIDE 2 MG TAB PO SCH ×2 (06:24→17:09)
[2021-01-30] MEDS: LEVOTHYROXINE 100MCG TABLET (0.1MG) PO SCH (06:25)
[2021-01-30 07:51] VITALS: BP 140/90
[2021-01-30] MEDS ORDERED: VITAD400CA PO (08:15)
[2021-01-30] MEDS ORDERED: OMEP-218 PO (08:15)
[2021-01-30] MEDS ORDERED: HALO10TA20 PO ×2 (08:15)
[2021-01-30] MEDS ORDERED: LISI20TA33 PO (08:15)
[2021-01-30] MEDS ORDERED: TRAZ-252 PO (08:15)
[2021-01-30] MEDS ORDERED: HALD100I2 IM (08:15)
[2021-01-30] MEDS ORDERED: FISH1CAP26 PO (08:15)
[2021-01-30] MEDS ORDERED: LIDO5TD TD (08:15)
[2021-01-30] MEDS ORDERED: MUSCCRE9 TOP (08:15)
[2021-01-30] MEDS ORDERED: QUET100T2 PO (08:15)
[2021-01-30] MEDS ORDERED: ATIV1TAB7 PO ×2 (08:15→13:08)
[2021-01-30] MEDS ORDERED: TRAZ-257 PO (08:15)
[2021-01-30] MEDS ORDERED: ACET1TAB55 PO (08:15)
[2021-01-30] MEDS ORDERED: MOUKOT60 MT (08:15)
[2021-01-30] MEDS ORDERED: AMLO1TAB24 PO (08:50)
[2021-01-30] MEDS: ANALGESIC BALM CRM 3OZ TOP SCH ×3 (09:00→21:00)
[2021-01-30] MEDS: LIDOCAINE 5% (LIDODERM) PATCH TD SCH (09:00)
[2021-01-30] MEDS: FLUTICASONE PROP 0.05% NASAL SPRAY 16 GM (FLONASE) NARES SCH (09:47)
[2021-01-30] MEDS: ASPIRIN 81MG ENTERIC TABLET PO SCH (09:49)
[2021-01-30] MEDS: BENZTROPINE 2 MG TAB PO SCH ×2 (09:50→22:49)
[2021-01-30] MEDS: DOCUSATE SODIUM 100MG CAPSULE PO SCH ×2 (09:50→22:48)
[2021-01-30] MEDS: lamoTRIgine 100MG TAB PO SCH (09:50)
[2021-01-30] MEDS: ACETAMINOPHEN TAB 650MG DOSE (2X325MG) PO PRN ×2 (09:50→22:59)
[2021-01-30] MEDS: TAMSULOSIN 0.4 MG CAP PO SCH (09:51)
[2021-01-30] MEDS: atenoloL 25 MG TAB PO SCH ×2 (09:51→22:54)
[2021-01-30] MEDS: OMEGA-3 1000MG CAPSULE PO SCH (09:51)
[2021-01-30] MEDS: OMEPRAZOLE 20 MG CAP PO SCH (09:51)
[2021-01-30] MEDS: oxyBUTYnin 5 MG TAB PO SCH (09:52)
[2021-01-30] MEDS: VITAMIN D (CHOLECALCIFEROL) 400 INTERNATIONAL UNITS TAB PO SCH (09:52)
--- NOTE | 2021-01-30 13:02 | MHIPNPDOC ---
[facility] Progress Note Progress Note DATE OF SERVICE: 01/30/21 HISTORY: Patient a 50 y/o man with a past history of bipolar disorder and numerous admissions since his 20's. Was d/c from [facility] Jan 2010 and living in [facility] halfway since. Was admitted on this occasion due to disorganized and paranoid behavior. Currently remains in contact isolation due to possible exposure previous treatment nursing staff. Interval: Patient continues to have improved mood, energy states he is "good", no significant change from yesterday feels ready to go to [facility], had a AOT meeting that went well, per AOT he needs to have lorazepam increased to 2 mg twice daily. This report was requested by: Yony Molina | Reference #: [id number] , I still reviewed, no signs of abuse or misuse. No acute physical complaints. VITAL SIGNS: See below. NEW TEST RESULTS: none CURRENT MEDICATIONS: See below. MENTAL STATUS EXAMINATION: Patient is a 50-year old male, wearing masks and glasses, no acute distress, elevated BMI, somewhat improved hygiene, was seen sitting on bed, appears stated age. Speech: spontaneous, normal rate Language skills are improved Thought processes including: Continues to be somewhat concrete, no longer disorganized Thought content: Denies Suicidal thoughts, intent or plan. Denies homicidal ideation, intent or plan Abstract reasoning, and computation: Improving Description of associations: concrete, was able to associate fruits, but had difficulty associating transportation Description of abnormal or psychotic thoughts: Has been denying auditory smith llucinations, delusions or paranoia Judgment: Fair Insight: improving Orientation: to person, place, time Recent and remote memory: Fair Attention span and concentration: Improved, somewhat distractible Language: Eritrean Fund of knowledge: Below average Mood: "good" affect: euthymic, less concrete, no longer disorganized, no winsome or depression, does not appear internally preoccupied DIAGNOSES: 1. Schizoaffective disorder bipolar type 2. Hypertension started on a regimen of hydralazine, lisinopril, 3. Diabetes, supp. glimepiride, insulin sliding scale 4. Back pain, lidocaine patch 5. sore throat, supp robittusin, ASSESSMENT: Continues to be stable, somewhat concrete, pending placement, right foot x-ray was negative, finds Tylenol helpful for foot pain, pending placement. Had a AOT meeting likely discharge tomorrow. MANAGEMENT PLAN: Lorazepam increased to 2 mg twice daily per AOT, continue other medications. RSV, influenza and covid panel negative, swab negative. Sore throat has improved. Patient is highly sensitive to any medication changes with rapid decompensation. TIME SPENT: 15 minutes. Vital Signs Vital Signs Date Time Temp Pulse Resp B/P (MAP) Pulse Ox O2 Delivery O2 Flow Rate FiO2 01/30/21 09:51 91 138/78 01/30/21 07:51 97.7 17 01/29/21 16:18 96 Room Air Laboratory Data 24H Labs Laboratory Tests 2 01/29/21 16:31: Bedside Glucose (Misc Panel) 126H 01/29/21 20:39: Bedside Glucose (Misc Panel) 145H 01/30/21 05:31: Bedside Glucose (Misc Panel) 111H 01/30/21 12:04: Bedside Glucose (Misc Panel) 191H Current Medications Current Medications Medications (Trade) Dose Ordered Sig/Kailey Route PRN Reason Start Time Stop Time Status Last Admin Dose Admin Acetaminophen (Tylenol Tab) 650 mg Q6HP PRN PO HEADACHE or MILD DISCOMFORT 12/01/20 16:05 01/30/21 09:50 Acetaminophen (Tylenol Tab) 650 mg Q6HP PRN PO HEADACHE or MILD DISCOMFORT 11/18/20 12:40 11/24/20 01:45 DC 11/23/20 03:09 Al Hydrox/Mg Hydrox/Simethicone (Mylanta) 30 ml Q4HP PRN PO HEARTBURN/INDIGESTION 11/18/20 12:40 11/24/20 01:45 DC 11/23/20 22:34 Amlodipine Besylate (Norvasc) 10 mg DAILY PO 11/19/20 09:00 11/22/20 08:55 DC 11/22/20 08:20 Aspirin (Ecotrin) 81 mg DAILY PO 11/24/20 09:00 01/30/21 09:49 Aspirin (Ecotrin) 81 mg QAM PO 11/22/20 09:00 11/24/20 01:45 DC 11/23/20 07:58 Atenolol (Tenormin) 25 mg BID PO 11/22/20 09:00 11/22/20 12:53 DC 11/22/20 09:51 Atenolol (Tenormin) 25 mg BID PO 11/24/20 09:00 01/30/21 09:51 Atenolol (Tenormin) 50 mg BID PO 11/22/20 21:00 11/24/20 00:13 DC 11/23/20 21:16 Atorvastatin Calcium (Lipitor) 40 mg QHS PO 11/18/20 21:00 11/24/20 01:45 DC 11/23/20 21:16 Atorvastatin Calcium (Lipitor) 40 mg QHS PO 11/24/20 21:00 01/29/21 20:41 Benztropine Mesylate (Cogentin) 1 mg BID PO 11/18/20 09:00 11/24/20 01:45 DC 11/23/20 21:15 Benztropine Mesylate (Cogentin) 1 mg BID PO 11/24/20 09:00 01/27/21 10:57 DC 01/27/21 09:28 Benztropine Mesylate (Cogentin) 2 mg BID PO 01/27/21 21:00 01/30/21 09:50 Cyclobenzaprine HCl (Flexeril) 10 mg QHS PO 11/20/20 21:00 11/24/20 01:45 DC 11/23/20 21:16 Cyclobenzaprine HCl (Flexeril) 10 mg QHS PO 11/24/20 21:00 01/29/21 20:41 Dextrose (Dextrose 50%) 25 ml ASDIRECTED PRN IV SEE LABEL COMMENTS 01/01/21 16:35 Diphenhydramine HCl (Benadryl) 50 mg Q8HP PRN PO AGITATION 11/19/20 09:10 11/24/20 01:45 DC 11/23/20 17:51 Diphenhydramine HCl (Benadryl) 50 mg Q8HP PRN PO AGITATION 11/24/20 10:55 01/29/21 20:41 Diphenhydramine HCl (Benadryl) 50 mg STAT STAT IM 11/26/20 02:41 11/26/20 02:44 DC 11/26/20 02:53 Diphenhydramine HCl (Benadryl) 50 mg STAT STAT PO 11/19/20 06:48 11/19/20 06:50 DC 11/19/20 07:06 Docusate Sodium (Colace) 100 mg BID PO 11/18/20 21:00 11/24/20 01:45 DC 11/23/20 21:15 Docusate Sodium (Colace) 100 mg BID PO 11/24/20 09:00 01/30/21 09:50 Fish Oil ([place]-3 (1000mg)) 1 cap DAILY PO 12/06/20 09:00 01/30/21 09:51 Fluticasone Propionate (Flonase 0.05% Nasal [place]) 2 spray DAILY NARES 11/19/20 09:00 11/24/20 01:45 DC 11/23/20 08:01 Fluticasone Propionate (Flonase 0.05% Nasal [place]) 2 spray DAILY NARES 11/24/20 09:00 01/30/21 09:47 Glimepiride (Amaryl) 2 mg BID@0730,1730 PO 01/13/21 17:30 01/30/21 06:24 Glucagon (Glucagon) 1 mg ASDIRECTED PRN SC SEE LABEL COMMENTS 01/01/21 16:35 Glucose (Glucose) 16 GM ASDIRECTED PRN PO SEE LABEL COMMENTS 01/01/21 16:35 Guaifenesin/ Dextromethorphan (Robitussin Dm) 10 ml Q4HP PRN PO COUGH 01/01/21 11:40 01/25/21 12:46 Haloperidol (Haldol) 10 mg Q8HP PRN PO AGITATION 11/19/20 09:10 11/24/20 01:45 DC 11/23/20 23:21 Haloperidol (Haldol) 10 mg Q8HP PRN PO AGITATION 11/24/20 10:55 01/15/21 21:20 Haloperidol (Haldol) 10 mg QHS PO 11/19/20 21:00 11/19/20 09:48 DC Haloperidol (Haldol) 10 mg QHS PO 11/19/20 21:00 11/24/20 01:45 DC 11/23/20 21:16 Haloperidol (Haldol) 10 mg QHS PO 11/24/20 21:00 12/11/20 10:47 DC 12/10/20 21:45 Haloperidol (Haldol) 10 mg QHS PO 12/19/20 21:00 01/29/21 20:40 Haloperidol (Haldol) 10 mg STAT STAT IM 11/26/20 02:41 11/26/20 02:44 DC 11/26/20 02:52 Haloperidol (Haldol) 10 mg STAT STAT PO 11/19/20 06:48 11/19/20 06:50 DC 11/19/20 07:06 Haloperidol (Haldol) 15 mg QHS PO 12/11/20 21:00 12/19/20 10:34 DC 12/18/20 20:05 Haloperidol Decanoate (Haldol Decanoate) 100 mg Q28D IM 11/28/20 12:00 01/23/21 12:07 Home Med (Med Rec Complete!) ASDIRECTED XX 11/17/20 23:25 11/17/20 23:24 DC Hydralazine HCl (Apresoline) 25 mg Q8H PO 01/13/21 14:00 01/26/21 21:45 Ibuprofen (Advil) 800 mg Q12H PO 01/08/21 21:00 01/12/21 16:02 DC 01/12/21 08:43 Ibuprofen (Advil) 800 mg Q8H PO 12/11/20 14:00 01/08/21 14:46 DC 01/08/21 13:01 Insulin Human Lispro (HumaLOG INSULIN) SEE PROTOCOL TABLE AC SC 01/01/21 17:30 01/30/21 12:10 Insulin Human Lispro (HumaLOG INSULIN) SEE PROTOCOL TABLE QHS SC 01/01/21 21:00 01/12/21 20:46 Lamotrigine (LaMICtal) 200 mg DAILY PO 11/18/20 09:00 11/24/20 01:45 DC 11/23/20 08:00 Lamotrigine (LaMICtal) 200 mg DAILY PO 11/24/20 09:00 01/30/21 09:50 Levothyroxine Sodium (Synthroid) 100 mcg DAILY@06 PO 11/24/20 06:00 01/30/21 06:25 Levothyroxine Sodium (Synthroid) 100 mcg DAILY@0600 PO 11/19/20 06:00 11/24/20 01:45 DC 11/23/20 05:05 Lidocaine (Lidoderm Patch) 1 patch DAILY TD 01/08/21 09:00 01/15/21 10:23 DC 01/15/21 08:38 Lidocaine (Lidoderm Patch) 2 patch DAILY TD 01/15/21 11:00 01/26/21 09:06 Lisinopril (Prinivil) 20 mg DAILY PO 01/13/21 09:00 01/30/21 09:50 Lorazepam (Ativan) 1 mg Q12HP PRN PO ANXIETY/AGITATION 01/13/21 12:50 01/13/21 12:52 DC Lorazepam (Ativan) 1 mg Q12HP PRN PO ANXIETY/AGITATION 01/13/21 12:52 01/21/21 11:25 DC 01/20/21 00:57 Lorazepam (Ativan) 1 mg Q12HP PRN PO ANXIETY/AGITATION 01/21/21 11:25 01/29/21 20:41 Lorazepam (Ativan) 1 mg Q8HP PRN PO ANXIETY/AGITATION 01/13/21 12:50 01/13/21 12:51 DC Lorazepam (Ativan) 2 mg Q8HP PRN PO ANXIETY/AGITATION 12/02/20 12:05 01/13/21 12:47 DC 01/11/21 19:00 Lorazepam (Ativan) 2 mg Q8HP PRN PO AGITATION 11/19/20 09:10 11/24/20 01:45 DC 11/23/20 23:21 Lorazepam (Ativan) 2 mg Q8HP PRN PO AGITATION 11/24/20 10:55 12/01/20 10:54 DC 11/30/20 22:04 Lorazepam (Ativan) 2 mg STAT STAT IM 11/26/20 02:41 11/26/20 02:44 DC 11/26/20 02:53 Lorazepam (Ativan) 2 mg STAT STAT PO 11/19/20 06:48 11/19/20 06:50 DC 11/19/20 07:06 Losartan Potassium (Cozaar) 50 mg DAILY PO 11/19/20 09:00 11/22/20 08:55 DC 11/22/20 08:20 Magnesium Hydroxide (Milk Of Magnesia) 30 ml DAILYPRN PRN PO CONSTIPATION 11/18/20 12:40 11/24/20 01:45 DC Magnesium Hydroxide (Milk Of Magnesia) 30 ml DAILYPRN PRN PO CONSTIPATION 11/24/20 10:55 01/08/21 17:19 Magnesium Sulfate (Epsom Salt) 1 dose DAILY PRN TOP MILD DISCOMFORT 01/15/21 12:00 Menthol/Methyl Salicylate (Bengay Cream) Allow patient to apply t... BID PRN TOP MILD PAIN (PS 1-4) 12/19/20 11:40 01/01/21 12:36 DC 01/01/21 09:02 Menthol/Methyl Salicylate (Bengay Cream) Allow patient to apply t... TID TOP 01/01/21 16:00 01/28/21 20:23 Metformin HCl (Glucophage) 1,000 mg BID@08,18 PO 11/24/20 08:00 01/01/21 16:37 DC 01/01/21 07:34 Metformin HCl (Glucophage) 1,000 mg BID@0800,1800 PO 11/18/20 18:00 11/24/20 01:45 DC 11/23/20 17:34 Miscellaneous (Unresolved Clarification Entry) SEE LABEL COMMENTS DAILY XX 11/30/20 09:00 12/02/20 09:53 DC Miscellaneous (Unresolved Clarification Entry) SEE LABEL COMMENTS DAILY XX 12/02/20 09:00 12/02/20 12:12 DC Miscellaneous (Unresolved Clarification Entry) SEE LABEL COMMENTS DAILY XX 12/13/20 09:00 12/15/20 10:07 DC Miscellaneous (Unresolved Clarification Entry) SEE LABEL COMMENTS DAILY XX 12/30/20 09:00 12/30/20 15:31 DC Miscellaneous (Unresolved Clarification Entry) SEE LABEL COMMENTS DAILY XX 12/30/20 09:00 Cancel Miscellaneous (Unresolved Clarification Entry) SEE LABEL COMMENTS DAILY XX 01/07/21 09:00 01/08/21 07:30 DC Miscellaneous (Unresolved Clarification Entry) SEE LABEL COMMENTS DAILY XX 12/22/20 09:00 12/24/20 14:02 DC Miscellaneous (Unresolved Clarification Entry) SEE LABEL COMMENTS DAILY XX 01/27/21 09:00 01/27/21 13:20 DC Miscellaneous (Unresolved Clarification Entry) SEE LABEL COMMENTS DAILY XX 01/18/21 09:00 01/21/21 10:25 DC Miscellaneous (Unresolved Patient Own Med Order) SEE LABEL COMMENTS UNRESOLVED XX 01/15/21 00:01 01/16/21 15:59 DC Montelukast Sodium (Singulair) 10 mg QHS PO 11/18/20 21:00 11/24/20 01:45 DC 11/23/20 21:15 Montelukast Sodium (Singulair) 10 mg QHS PO 11/24/20 21:00 01/29/21 20:41 Non-Formulary Medication ( See Comment Field Below ) REMOVE LIDODERM PATCH DAILY@ XX 01/06/21 21:00 01/06/21 23:59 DC 01/06/21 21:00 Non-Formulary Medication ( See Comment Field Below ) REMOVE LIDODERM PATCHES DAILY@ XX 01/08/21 21:00 01/29/21 21:24 Omeprazole (PriLOSEC) 20 mg DAILY PO 12/11/20 09:00 01/30/21 09:51 Oxybutynin Chloride (Ditropan) 5 mg DAILY PO 11/19/20 09:00 11/24/20 01:45 DC 11/23/20 08:00 Oxybutynin Chloride (Ditropan) 5 mg DAILY PO 11/24/20 09:00 01/30/21 09:52 Patient Own Medication (Patient'S Own Med) valbenazine (ingrezza)80MG CAP TAKE... DAILY PO 01/15/21 09:00 01/16/21 15:59 DC Propranolol HCl (Inderal) 10 mg BID PO 11/18/20 21:00 11/22/20 08:55 DC 11/22/20 08:20 Quetiapine Fumarate (SEROquel) 200 mg QHS PO 11/19/20 21:00 11/24/20 01:45 DC 11/23/20 21:15 Quetiapine Fumarate (SEROquel) 200 mg QHS PO 11/24/20 21:00 12/04/20 08:57 DC 12/03/20 20:20 Quetiapine Fumarate (SEROquel) 300 mg QHS PO 12/04/20 21:00 01/29/21 20:41 Saliva Substitute (Mouthkote) ASDIRECTED PRN MT DRY MOUTH 01/01/21 12:30 01/11/21 15:24 Tamsulosin HCl (Flomax) 0.8 mg DAILY PO 11/19/20 09:00 11/24/20 01:45 DC 11/23/20 08:01 Tamsulosin HCl (Flomax) 0.8 mg DAILY PO 11/24/20 09:00 01/30/21 09:51 Trazodone HCl (Desyrel) 50 mg QPM PO 01/06/21 21:00 01/29/21 20:41 Trazodone HCl (Desyrel) 100 mg QPM PO 11/18/20 21:00 11/24/20 01:45 DC 11/23/20 21:16 Trazodone HCl (Desyrel) 100 mg QPM PO 11/24/20 21:00 01/06/21 10:12 DC 01/05/21 20:36 Vitamin D (Vitamin D) 400 units DAILY PO 11/19/20 09:00 11/24/20 01:45 DC 11/23/20 08:00 Vitamin D (Vitamin D) 400 units DAILY PO 11/24/20 09:00 01/30/21 09:52 Allergies Coded Allergies: Penicillins (Verified Allergy, Intermediate, rash, 01/02/19) latex (Verified Allergy, Intermediate, rash, 12/13/19) divalproex sodium (Verified Allergy, Unknown, 01/02/19) YONY MOLINA MD Jan 30, 2021 13:02
[2021-01-30] MEDS ORDERED: LORazepam 1 MG TAB PO PRN (13:05)
--- NOTE | 2021-01-30 14:24 | IPNPDOC ---
Text Note Date of Service The patient was seen on 01/30/21. NOTE Subjective: Patient is a 50-year-old male who was in the inpatient mental health unit for bipolar disorder who was getting discharged today but I was asked to come see the patient in order to finalize the patient's diabetic regimen. Patient's A1c was 6.9 when it was tested in the hospital 1 month ago. Patient states that he is only on metformin outpatient. While in the hospital, patient has been receiving glipizide as well as sliding scale insulin. Patient has been doing well with this regimen. Patient denies any complaints at this time is feeling otherwise well. Review of systems: General: Patient denies fevers HEENT: Patient denies headaches Cardiovascular: Patient denies chest pain Respiratory: Patient denies shortness of breath, cough Physical exam: Vitals: See below General: Alert and oriented male patient was walking around the unit when I walked down. Patient was able to walk into the examination room without any difficulty. Patient not appear to be in any acute distress. HEENT: Normocephalic, atraumatic, moist mucous membranes. Neck: No lymphadenopathy or thyromegaly Cardiac: Regular rate and rhythm, no murmurs, normal S1, normal S2 Pulm: Clear to auscultation bilaterally. No wheezes, rhonchi, rales Abd: Nondistended, nontender to palpation, normal bowel sounds Ext: No edema bilateral lower extremities Labs: See below Imaging: No imaging has been performed Assessment/plan: 50-year-old male who was admitted in the inpatient mental health unit for bipolar disorder who has a history of type 2 diabetes. 1. Bipolar disorder. Patient is going to be discharged per [facility] today. Patient continue treatment as prescribed by them. 2. Diabetes mellitus. This is noninsulin-dependent diabetes mellitus and since the patient's A1c is 6.9 which is at goal of less than 7. Patient can continue with Metformin as prescribed outpatient. Glipizide and sliding scale insulin can be discontinued at this time. Patient is ready to be discharged from a hospital standpoint. Disposition: Patient can be discharged from hospital standpoint on the diabetic regimen described above. VS,Fishbone, I+O VS, Fishbone, I+O Vital Signs Date Time Temp Pulse Resp B/P (MAP) Pulse Ox O2 Delivery O2 Flow Rate FiO2 01/30/21 09:51 91 138/78 01/30/21 07:51 97.7 17 01/29/21 16:18 96 Room Air JOANNA AVENDANO DO Jan 30, 2021 14:24
[2021-01-30 18:00] VITALS: BP 138/82
[2021-01-30] MEDS: **NOTE PATIENT COMMENT** MISC XX SCH (21:00)
[2021-01-30] MEDS: MONTELUKAST 10 MG TAB PO SCH (22:48)
[2021-01-30] MEDS: ATORVASTATIN 20 MG TAB PO SCH (22:48)
[2021-01-30] MEDS: CYCLOBENZAPRINE 10MG TABLET PO SCH (22:48)
[2021-01-30] MEDS: haloperidoL 5 MG TAB PO SCH (22:49)
[2021-01-30] MEDS: QUEtiapine FUMARATE 100 MG TAB PO SCH (22:51)
[2021-01-30] MEDS: traZODone 50 MG TAB PO SCH (22:55)
[2021-01-30] MEDS: diphenhydrAMINE 50MG CAP PO PRN (22:58)
[2021-01-31] MEDS: **hydrALAZINE HCL** 25 MG TAB PO SCH (06:00)
[2021-01-31] MEDS: GLIMEPIRIDE 2 MG TAB PO SCH (06:39)
[2021-01-31] MEDS: LEVOTHYROXINE 100MCG TABLET (0.1MG) PO SCH (06:41)
[2021-01-31] MEDS: HumaLOG INSULIN (NovoLOG) PER UNIT SC SCH (06:51)
[2021-01-31 07:18] VITALS: BP 130/66
[2021-01-31] MEDS ORDERED: BENZ2TAB5 PO (08:41)
[2021-01-31] MEDS ORDERED: HALO5TA PO (08:41)
[2021-01-31] MEDS: LIDOCAINE 5% (LIDODERM) PATCH TD SCH (09:00)
[2021-01-31] MEDS: ANALGESIC BALM CRM 3OZ TOP SCH (09:00)
[2021-01-31] MEDS: FLUTICASONE PROP 0.05% NASAL SPRAY 16 GM (FLONASE) NARES SCH (09:02)
[2021-01-31] MEDS: ASPIRIN 81MG ENTERIC TABLET PO SCH (09:03)
[2021-01-31] MEDS: OMEPRAZOLE 20 MG CAP PO SCH (09:03)
[2021-01-31] MEDS: DOCUSATE SODIUM 100MG CAPSULE PO SCH (09:03)
[2021-01-31] MEDS: ACETAMINOPHEN TAB 650MG DOSE (2X325MG) PO PRN (09:03)
[2021-01-31] MEDS: VITAMIN D (CHOLECALCIFEROL) 400 INTERNATIONAL UNITS TAB PO SCH (09:04)
[2021-01-31] MEDS: lamoTRIgine 100MG TAB PO SCH (09:04)
[2021-01-31] MEDS: TAMSULOSIN 0.4 MG CAP PO SCH (09:04)
[2021-01-31 09:05] VITALS: BP 137/84
[2021-01-31] MEDS: oxyBUTYnin 5 MG TAB PO SCH (09:05)
[2021-01-31] MEDS: OMEGA-3 1000MG CAPSULE PO SCH (09:05)
[2021-01-31] MEDS: atenoloL 25 MG TAB PO SCH (09:05)
[2021-01-31] MEDS: BENZTROPINE 2 MG TAB PO SCH (09:05)
[2021-01-31] MEDS ORDERED: ATIV1TAB7 PO (10:39)
--- NOTE | 2021-01-31 14:13 | MHDSPDOC ---
[facility] Discharge Summary Discharge Summary DATE OF ADMISSION: Nov 18, 2020 at 12:37 DATE OF DISCHARGE: Jan 31, 2021 at 10:00 Discharge diagnoses: 1. Schizoaffective disorder, bipolar type 2. Hypertension started on a regimen of lisinopril, atenolol 3. Diabetes, supp metformin 4. Back pain, lidocaine patch Reason for admission: Per Dr. Sivan Cerda's H&P: "Patient is a 50 -year-old , male, who [has extensive history of bipolar disorder since his early 20s with numerous previous inpatient treatment. He has been living at a [facility] shelter since his discharge from [facility] in January 2010. Patient was brought to emergency room from his shelter after he became extremely delusional disorganized and paranoid. Patient has been maintained on long-acting Haldol injection and Lamictal and remained marginally stable but in the past few weeks he has been showing decreasing sleep and increasing psychomotor agitation. On the day of his admission patient was becoming grossly disorganized and paranoid and refusing his regular medications and reportedly ran out of his shelter and was running away claiming that he was going to an emergency room. He was brought to emergency room by police and ambulance and admitted on 939 status. On the unit patient was very pressured and agitated required extra medications of Haldol and Ativan. On examination with MD patient is a little subdued and is in better control but his speech is very pressured flighty and not making much sense. He does not know why he is here but admits that he has not been sleeping but other than that he is denying any command hallucination and denies any suicidal or homicidal thoughts but not able to give any coherent rational account of the events leading to his admission. He denies any substance abuse claims that he has been taking his medications but does not know what medicine he was taking. Again his grossly disorganized and flighty and grossly manic.]." Vital signs: See below Consultants involved: See medical H&P by hospitalist, follow up notes Treatment and progress on the unit: Patient was admitted to the [facility] on a 39 legal status and was afforded the following treatment modalities: 1. Individual therapy 2. Group therapy 3. Medication management 4. Milieu therapy 5. Safe environment Hospital course: Patient was admitted to the [facility] on a 39 legal status. Was medically cleared prior to coming up to the [facility]. Patient was initially presenting with symptoms of winsome including pressured speech, flight of ideas, lack of sleep, also had psychotic features of paranoia, delusions, auditory hallucinations, disorganized thought process in context of poor compliance. He was given as needed haldol and lorazepam for stabilization of mood and agitation and started on home medications including haldol 10 mg qhs, seroquel 200 mg qhs, propranolol 20 mg bid, trazodone 100 mg nightly, lamictal 200 mg daily for mood stabilization, medications for medical comorbidities including metformin 1000 mg twice daily, oxybutynin, losartan, levothyroxine 100 mcg daily for hypothyroidism, colace 100 mg twice daily for constipation, amlodipine for htn, cogentin 1 mg twice daily for EPS, flonase, flomax for BPH, vitamin D supplementation. Patient reported occasional palpitations without chest pain,lightheadedness or dizziness. Was started on atenolol and low dose aspirin. Follow up cbc, cmp, troponin, lactic acid were ordered. Was admitted to medicine and medically cleared, returning to the [facility]. Was diagnosed as schizoaffective disorder vs bipolar I disorder with mixed features, and found to be lacking improvement despite medication compliance. Was also started on atorvastatin for elevated cholesterol and Flexeril for muscle pain. Patient continued to be grossly disorganized and was given IM GREENE haldol decanoate 100 mg 11/28 without any significant side effects and concerted to [facility] due to lack of improvement/stabilization. Patient was inherited from Dr Cerda at this period of treatment. Notably patient did not display and overt aggression during stay and was pleasantly psychotic. He did require routine redirection for singing in the hallways in the evenings. Patient found medications beneficial and tolerated them well. Plan was for transfer to [facility], with process started vs transfer to [facility] if symptoms improved. Seroquel was increased to 300 mg qhs and was continued on lorazepam 2 mg twice daily for anxiety. Was taking oral haldol 10 mg q8hrs as needed every once or twice daily. [place] 3 FFAs were started due to low hdl on lab testing, otherwise lipid levels were within normal limits on testing. Patient flooded him bathroom twice and nursing staff were made aware of impulsive/disorganized behavior. Was placed in contact isolation due to possible contact with [place] [id number] staff and released from isolation, during this time did not have symptoms of covid-19 including SOB, chest pain or other symptoms. Prilosec was ordered due to reported symptoms of GERD. Denies mood anxiety and intrusive thoughts which improved with treatment. Patient reported R foot pain, xray was negative and responded well to NSAIDs. Cogentin was increased to 2 mg twice daily for possible EPS, was well tolerated. Patient attended groups daily during stay. Medication regimen was followed according to AOT medication list. Haldol was increased to 15 mg qhs for AH/hypomania, but lead to increased morning sedation, so dose was titrated down to 10 mg qhs. Patient symptoms improved with treatment. CK was found to be elevated and was trended down, encouraged to drink fluids. Received another haldol decanoate 100 mg GREENE 12/24, which was weel tolerated without side effects. Was given xylitol mouth wash for dry mouth, and Bengay for muscle pain with good affect. Reported cough and sore throat, CXR negative, covid test negative, viral panel negative, throat swab negative and started on Robitussin and NSAIDS with improvement of symptoms. Leg swelling noted due to likely venous insufficiency so was given MEHUL stockings. Hba1c was 6.9 01/01. Patient's trazodone was decreased to 50 mg qhs due to morning sedation, with reported improvement. Was given lidocaine patches bilaterally for chronic hip joint pain. Mood was becoming more stable. At this point in treatment started to appear less psychotic and disorgnaized and was aware of chronic joint pain, able to take care of basic ADLs and appetite was normal. Due to hyperglycemia was started on insulin sliding scale and metformin discontinued. Hydralazine 25 mg q8hr was added and glimepiride 2 mg bid for blood sugar control. Home Valbenazine 80 mg was added for TD, but patient was unable to have brought to the unit, so did not receive. 01/[address] for 6 month retention, which was granted. Vitals continued to be stable on blood pressure regimen, due to good control was not prescribed hydralazine from 01/27. ISTOP was reviewed.This report was requested by: Ayesha Crews | Reference #: [id number] , I still reviewed, no signs of abuse or misuse. No acute physical complaints. Patient was seen by hospitalist team prior to discharged and continued on outpatient medications including metformin for blood sugar control. For 4 days had not exhibited manic behavior, remained concrete, but no longer having hallucinations or disorganized thought process or paranoia. Had medical appointment scheduled for February 06 for f/u of medical comorbidities. Safety planning was conducted. On day of discharge patient denied depression, anxiety, insomnia, suicidal or homicidal ideations intent or plan, hallucinations, delusions. Patient was discharged home with follow-up. Patient felt safe for discharge. Was offered continued stay for [facility] on voluntary admission but refused. Discharge assessment: On today's interview patient is alert and oriented, dressed appropriately. Hygiene and grooming is well-kept. Smiles on approach and is pleasant and engaged on interview. Denies depression and anxiety. Denies suicidal homicidal ideation, intent or planning. Denies and is not observed with winsome or psychotic symptoms of delusions, hallucinations, bizarre thinking, obsessions, paranoia, ruminations, illogical thoughts, flight of ideas or having poor insight or judgment. Patient has normal mentation, declines further hospitalization of voluntary status and meets criteria for discharge today, patient encouraged to return the hospital if symptoms worsen or change and encouraged to call unit if they feel they need provider's questions to be answered or help with medications or care. Mental status: Patient is a 50-year old male, wearing masks and glasses, no acute distress, elevated BMI, somewhat improved hygiene, was seen sitting on bed, appears stated age. Speech: spontaneous, normal rate Language skills are improved Thought processes including: Continues to be less concrete, no longer disorganized, linear and logical Thought content: Denies Suicidal ideation, intent or plan. Denies homicidal ideation, intent or plan Abstract reasoning, and computation: [place] Description of associations: Less concrete Description of abnormal or psychotic thoughts: Has been denying auditory hallucinations, delusions or paranoia Judgment: Fair Insight: improving Orientation: to person, place, time Recent and remote memory: Fair Attention span and concentration: Improved, somewhat distractible Language: Tajik Fund of knowledge: Below average Mood: "I'm good" affect: euthymic, not elevated, stable, less concrete, no longer disorganized, no winsome or depression, does not appear internally preoccupied Medications on discharge: -see medication reconciliation: CSSRS on discharge: Wish to be : No nonspecific active suicidal thoughts: No lifetime attempts: multiple interrupted attempts: 0 aborted attempts: 0 preparatory acts or behavior: None Taking into consideration safety state, status, modifiable, non-modifiable risk factors patient is at low risk on discharge for suicide according to [facility] suicide evaluation. PLAN/FOLLOWUP ARRANGEMENTS: Follow Up Care Education Label * Mental Health Appt 1 * [facility] * Established With This Provider Yes * Therapist SAFIA * Date Feb 04, 2021 * Time 10:00 * Address of Clinic or Practice [address] [facility] * Follow Up Care Education Label * Mental Health Appt 2 * [facility] * Established With This Provider Yes * Therapist JAYME * Date Feb 14, 2021 * Time 10:00 * Address of Clinic or Practice [address] [facility] * * Additional information THIS APPOINTMENT IS FOR INJECTION. Follow Up Care Education Label * Mental Health Appt 3 * [facility] * Established With This Provider Yes * Therapist AIDS * Date Feb 14, 2021 * Time 10:30 * Address of Clinic or Practice [address] [facility] Follow Up Care Education Label * Medical * Medical Follow Up [facility] * Established With This Provider Yes * Therapist DOT HOLMAN * Date Feb 06, 2021 * Time 10:00 * Address of Clinic or Practice [address] [place] [address] * * Additional information DR. MAGUIRE HAS RETIRED WHOM PATIENT SAW, HE WILL BE SET UP WITH [facility]. The amount of time spent in the coordination of care for this patient was approximately 45 minutes. ETOH/Disorder Med Rx ETOH/DRUG DISORDER RX: N/A Vital Signs/I&Os Vital Signs Date Time Temp Pulse Resp B/P (MAP) Pulse Ox O2 Delivery O2 Flow Rate FiO2 01/31/21 09:05 87 137/84 01/31/21 07:18 98.1 18 98 Room Air Laboratory Data Labs 24H Laboratory Tests 2 01/30/21 16:52: Bedside Glucose (Misc Panel) 114H 01/30/21 21:38: Bedside Glucose (Misc Panel) 144H 01/31/21 06:46: Bedside Glucose (Misc Panel) 110H Microbiology Microbiology 01/23/21 Eye/Ear/Nose/Throat Culture - Final, Complete Medications Scheduled Amlodipine Besylate (Amlodipine Besylate) 5 Mg Tablet, 1 TAB PO DAILY for HTN for 7 Days, #7 Aspirin (Aspirin EC) 81 Mg Tablet.dr, 81 MG PO QAM for 30 Days, #30 Atenolol (Atenolol) 25 Mg Tablet, 25 MG PO BID for 30 Days, #60 Atorvastatin Calcium (Atorvastatin Calcium) 40 Mg Tablet, 40 MG PO QHS, (Reported) Benztropine Mesylate (Benztropine Mesylate) 1 Mg Tablet, 1 MG PO BID, (Reported) Benztropine Mesylate (Benztropine Mesylate) 2 Mg Tablet, 2 MG PO BID for EPS, #14 Cholecalciferol (Vitamin D3) (Vitamin D3) 50 Mcg Capsule, 50 MCG PO DAILY, (Reported) Cyclobenzaprine HCl (Cyclobenzaprine HCl) 10 Mg Tablet, 10 MG PO QHS for 30 Days, #30 Docusate Sodium (Docusate Sodium) 100 Mg Capsule, 100 MG PO BID, (Reported) Fluticasone Propionate (Flonase Allergy Relief) 9.9 Ml [place].susp, 2 SPRAY NARES DAILY, (Reported) Haloperidol (Haloperidol) 10 Mg Tablet, 10 MG PO QHS for psychosis for 30 Days, #7 Haloperidol (Haloperidol) 5 Mg Tablet, 10 MG PO QHS for psychosis, #14 Haloperidol Decanoate (Haldol Decanoate 100) 100 Mg/1 Ml Ampul, 100 MG IM Q3 WEEKS for psychosis, #1 Lamotrigine (Lamotrigine) 200 Mg Tablet, 200 MG PO DAILY, (Reported) Levothyroxine Sodium (Levothyroxine Sodium) 100 Mcg Tab, 100 MCG PO DAILY, (Reported) Lidocaine (Lidocaine) 5% Adh..patch, 2 PATCH TD DAILY for pain, #14 apply to both hips bilaterally daily Lisinopril (Lisinopril) 20 Mg Tablet, 20 MG PO DAILY for hypertension, #7 Metformin HCl (Metformin HCl) 1,000 Mg Tablet, 1,000 MG PO BID, (Reported) Methyl Salicylate/Menthol (Muscle Rub Cream) 85 Gm Cream..g., 0 DOSE TOP TID for pain, #100 Montelukast Sodium (Singulair) 10 Mg Tablet, 10 MG PO QHS, (Reported) [place] 3 Polyunsat Fatty Acids (Fish Oil 1,000 mg Softgel) 1,000 Mg Capsule, 1 CAP PO DAILY for low hdl, #30 Omeprazole (Omeprazole) 20 Mg Capsule.dr, 20 MG PO DAILY for gerd, #7 Oxybutynin Chloride (Oxybutynin Chloride) 5 Mg Tablet, 5 MG PO DAILY, (Reported) Quetiapine Fumarate (Quetiapine Fumarate) 100 Mg Tablet, 300 MG PO QHS for psychosis, #7 Tamsulosin Hcl (Tamsulosin HCl) 0.4 Mg Capsule, 0.8 MG PO DAILY, (Reported) Trazodone HCl (Trazodone HCl) 50 Mg Tablet, 50 MG PO QPM for sleep, #7 Vitamin D (Vitamin D3) 10 Mcg Tablet, 400 UNITS PO DAILY for low vitamin D, #7 Scheduled PRN Acetaminophen (Acetaminophen) 325 Mg Tablet, 650 MG PO Q6HP PRN for HEADACHE or MILD DISCOMFORT, #14 Haloperidol (Haloperidol) 10 Mg Tablet, 10 MG PO Q8HP PRN for AGITATION, #14 for moderate to severe agitation Lorazepam (Ativan) 1 Mg Tablet, 2 MG PO Q12HP PRN for ANXIETY/AGITATION, #30 Lorazepam (Ativan) 1 Mg Tablet, 2 MG PO Q12HP PRN for ANXIETY/AGITATION, #30 Non-Formulary Medication (Mouthkote Solution) 60 Ml [place], 0 SPRAYS MT ASDIRECTED PRN for DRY MOUTH, #1 Miscellaneous Medications [Med Rec Comment] , (Reported) USED EXTERNAL MED HISTORY Allergies Coded Allergies: Penicillins (Verified Allergy, Intermediate, rash, 01/02/19) latex (Verified Allergy, Intermediate, rash, 12/13/19) divalproex sodium (Verified Allergy, Unknown, 01/02/19) AYESHA CREWS MD Jan 31, 2021 14:13
== END 2021-01-31 10:00 | disposition home or self-care (01) | DRG 885 ==
LOC: M ED 21:18 → M ED INP 11-18 12:37 → M PSY 11-18 14:42 → UNDODISIN 11-24 01:44 → M PSY 12-30 15:25
PROVIDERS: ADMIT Psychiatry & Neurology Psychiatry; ATTEND Student in an Organized Health Care Education/Training Program
DX: F25.0 Schizoaffective disorder, bipolar type (principal); I10 Essential (primary) hypertension; E11.9 Type 2 diabetes mellitus without complications; M54.59 Other low back pain; E03.9 Hypothyroidism, unspecified; N40.0 Benign prostatic hyperplasia without lower urinary tract symptoms; E55.9 Vitamin D deficiency, unspecified; K59.00 Constipation, unspecified; I89.8 Other specified noninfective disorders of lymphatic vessels and lymph nodes; Z79.899 Other long term (current) drug therapy; Z79.82 Long term (current) use of aspirin; Z88.0 Allergy status to penicillin; Z91.040 Latex allergy status; Z88.8 Allergy status to other drugs, medicaments and biological substances; I25.10 Atherosclerotic heart disease of native coronary artery without angina pectoris; R07.9 Chest pain, unspecified

== ENCOUNTER 2020-11-24 01:26 | Observation (INO) | payer MEDICARE, MEDICAID ==
[~2020-11-24] VITALS: Ht 182.9 cm; Wt 117.6 kg
[~2020-11-24 01:26] MED LIST changes: -LISI-898 PO; +LISI5TAB11 PO; +LOSA50TA28 PO; +MED REC COMMENT; +OXYB5TAB10 PO
[2020-11-24] MEDS ORDERED: NS 1,000 ML IV ONE ×2 (01:35→02:30)
[2020-11-24 02:00] VITALS: BP 108/52
[2020-11-24] MEDS ORDERED: diphenhydrAMINE 50MG CAP PO PRN (05:05)
[2020-11-24] MEDS ORDERED: LORazepam 2 MG TAB PO PRN (05:05)
[2020-11-24 06:00] VITALS: BP 140/79
[2020-11-24] MEDS ORDERED: LEVOTHYROXINE 100MCG TABLET (0.1MG) PO SCH (06:00)
[2020-11-24] MEDS ORDERED: metFORMIN (GLUCOPHAGE) 1000 MG TABLET PO SCH (08:00)
[2020-11-24 08:30] VITALS: BP 142/86
[2020-11-24] MEDS ORDERED: LORA2TA PO (08:39)
[2020-11-24] MEDS ORDERED: CYCL-707 PO (08:39)
[2020-11-24] MEDS ORDERED: HALO10TA20 PO ×2 (08:39)
[2020-11-24] MEDS ORDERED: ASPI-551 PO (08:39)
[2020-11-24] MEDS ORDERED: QUET200T2 PO (08:39)
[2020-11-24] MEDS ORDERED: ATEN25TA PO (08:39)
[2020-11-24 08:50] LABS: HEMATOCRIT 41.7 % (42.0-52.0); HEMOGLOBIN 13.9 g/dl (13.5-17.5); MEAN CORPUSCULAR HEMOGLOBIN 28.3 pg (27.0-33.0); MEAN CORPUSCULAR HGB CONC 33.3 g/dl (32.0-36.5); MEAN CORPUSCULAR VOLUME 84.8 fl (80.0-96.0); PLATELET COUNT, AUTOMATED 288 10^3/uL (150-450); RED BLOOD COUNT 4.92 10^6/uL (4.30-6.10); WHITE BLOOD COUNT 12.2 10^3/uL (4.0-10.0)
[2020-11-24] MEDS ORDERED: oxyBUTYnin 5 MG TAB PO SCH (09:00)
[2020-11-24] MEDS ORDERED: ASPIRIN 81MG ENTERIC TABLET PO SCH (09:00)
[2020-11-24] MEDS ORDERED: atenoloL 25 MG TAB PO SCH (09:00)
[2020-11-24] MEDS ORDERED: BENZTROPINE 1 MG TAB PO SCH (09:00)
[2020-11-24] MEDS ORDERED: TAMSULOSIN 0.4 MG CAP PO SCH (09:00)
[2020-11-24] MEDS ORDERED: lamoTRIgine 100MG TAB PO SCH (09:00)
[2020-11-24 09:11] LABS: BLOOD UREA NITROGEN 10 MG/DL (7-18); CALCIUM LEVEL 8.4 MG/DL (8.5-10.1); CARBON DIOXIDE LEVEL 24 MEQ/L (21-32); CHLORIDE LEVEL 103 MEQ/L (98-107); CREATININE FOR GFR 0.93 MG/DL (0.70-1.30); GLOMERULAR FILTRATION RATE > 60.0 (>56); GLUCOSE, FASTING 266 MG/DL (70-100); MAGNESIUM LEVEL 1.9 MG/DL (1.8-2.4); POTASSIUM SERUM 3.6 MEQ/L (3.5-5.1); SODIUM LEVEL 136 MEQ/L (136-145)
[2020-11-24] MEDS ORDERED: QUEtiapine FUMARATE 200 MG TAB PO SCH (21:00)
[2020-11-24] MEDS ORDERED: MONTELUKAST 10 MG TAB PO SCH (21:00)
[2020-11-24] MEDS ORDERED: CYCLOBENZAPRINE 10MG TABLET PO SCH (21:00)
[2020-11-24] MEDS ORDERED: ATORVASTATIN 20 MG TAB PO SCH (21:00)
[2020-11-24] MEDS ORDERED: traZODone 100 MG TAB PO SCH (21:00)
[2021-01-30] MEDS ORDERED: OMEP-173 PO (08:15)
[2021-01-31] MEDS ORDERED: HALO5TAB33 PO (08:41)
== END 2020-11-24 10:00 ==
LOC: M MS5PR 01:45 → PREINTOOBSV 01:48
PROVIDERS: ADMIT Family Medicine; ATTEND Family Medicine
DX: M62.82 Rhabdomyolysis (principal); E86.0 Dehydration; I95.1 Orthostatic hypotension; F31.2 Bipolar disorder, current episode manic severe with psychotic features; E11.9 Type 2 diabetes mellitus without complications; I10 Essential (primary) hypertension; E03.9 Hypothyroidism, unspecified; E78.49 Other hyperlipidemia; N40.0 Benign prostatic hyperplasia without lower urinary tract symptoms; J45.909 Unspecified asthma, uncomplicated; I25.10 Atherosclerotic heart disease of native coronary artery without angina pectoris; Z79.82 Long term (current) use of aspirin; Z79.899 Other long term (current) drug therapy; Z88.0 Allergy status to penicillin; Z91.040 Latex allergy status; Z88.8 Allergy status to other drugs, medicaments and biological substances
CPT/HCPCS: 36415; 80048; 83735; 85027; 96374; 96376; G0378

== ENCOUNTER → 2021-02-03 | Outpatient (CLI) | payer MEDICARE, MEDICAID ==
[~2021-02-03] MED LIST changes: +ACET1TAB55 PO; +AMLO1TAB24 PO; +ASPI-551 PO; +ATEN25TA PO; +ATIV1TAB7 PO; +FISH1CAP26 PO; +HALD100I2 IM; +HALO10TA20 PO; +HALO5TA PO; +LIDO5TD TD; +LISI-898 PO; -LISI5TAB11 PO; +LORA2TA PO; -LOSA50TA28 PO; +LOSA50TA88 PO; +MOUKOT60 MT; +MUSCCRE9 TOP; +OMEP-218 PO; +QUET100T2 PO; +VITAD400CA PO
[2021-02-03 11:50] LABS: HEMOGLOBIN A1c 7.8 %
[2021-02-03 11:53] LABS: ALBUMIN 3.7 GM/DL (3.2-5.2); ALT/SGPT 32 U/L (12-78); BILIRUBIN,TOTAL 0.5 MG/DL (0.2-1.0); BLOOD UREA NITROGEN 12 MG/DL (7-18); CALCIUM LEVEL 8.5 MG/DL (8.5-10.1); CARBON DIOXIDE LEVEL 31 MEQ/L (21-32); CHLORIDE LEVEL 103 MEQ/L (98-107); CHOLESTEROL LEVEL 144 MG/DL (<200); CHOLESTEROL RISK RATIO 3.512 (<5); CREATININE FOR GFR 0.69 MG/DL (0.70-1.30); GLOMERULAR FILTRATION RATE > 60.0 (>56); GLUCOSE, FASTING 145 MG/DL (70-100); HDL CHOLESTEROL 41 MG/DL (>40); LDL CHOLESTEROL 45 MG/DL (<100); NON-HDL-C 103 MG/DL; POTASSIUM SERUM 3.6 MEQ/L (3.5-5.1); SODIUM LEVEL 139 MEQ/L (136-145); THYROID STIMULATING HORMONE 0.424 uIU/ML (0.358-3.740); TOTAL PROTEIN 6.8 GM/DL (6.4-8.2); TRIGLYCERIDES LEVEL 291 MG/DL (<150)
[2021-02-03 12:02] LABS: MALB URINE SIEMENS 50.2 MG/L; MAU/CREAT RATIO 21.8 MCG/MG (0.0-30.0)
[2021-02-03 20:23] LABS: BASO # 0.1 10^3/uL (0.0-0.2); BASO % 0.5 % (0.0-1.0); EOS # 0.6 10^3/uL (0.0-0.5); EOS % 5.2 % (0.0-3.0); HEMATOCRIT 44.5 % (42.0-52.0); HEMOGLOBIN 14.7 g/dl (13.5-17.5); LYMPH # 1.8 10^3/uL (1.5-5.0); LYMPH % 15.3 % (24.0-44.0); MEAN CORPUSCULAR HEMOGLOBIN 27.2 pg (27.0-33.0); MEAN CORPUSCULAR VOLUME 82.4 fl (80.0-96.0); MONO # 0.8 10^3/uL (0.0-0.8); MONO % 6.9 % (2.0-8.0); NEUTROPHILS # 8.2 10^3/uL (1.5-8.5); PLATELET COUNT, AUTOMATED 257 10^3/uL (150-450); WHITE BLOOD COUNT 11.6 10^3/uL (4.0-10.0)
== END ==
LOC: M LAB 09:40
PROVIDERS: ATTEND Family Medicine
DX: E03.9 Hypothyroidism, unspecified (principal); E11.9 Type 2 diabetes mellitus without complications

== ENCOUNTER 2021-02-21 13:45 | Inpatient (IN) | payer MEDICARE, MEDICAID ==
[~2021-02-21] VITALS: Ht 180.3 cm; Wt 60.2 kg
[~2021-02-21 13:45] MED LIST changes: -HALO5TA PO; +HALO5TAB33 PO; -LISI-898 PO; +LISI5TAB11 PO; +LOSA50TA28 PO; -LOSA50TA88 PO; +OMEP-173 PO; -OMEP-218 PO
[2021-02-21 14:35] LABS: HEMATOCRIT 43.4 % (42.0-52.0); HEMOGLOBIN 14.4 g/dl (13.5-17.5); MEAN CORPUSCULAR HGB CONC 33.2 g/dl (32.0-36.5); MEAN CORPUSCULAR VOLUME 81.3 fl (80.0-96.0); PLATELET COUNT, AUTOMATED 325 10^3/uL (150-450); RED BLOOD COUNT 5.34 10^6/uL (4.30-6.10); WHITE BLOOD COUNT 9.7 10^3/uL (4.0-10.0)
[2021-02-21 14:54] LABS: AMPHETAMINES LEVEL URINE NEGATIVE (NEGATIVE); BARBITURATES URINE NEGATIVE (NEGATIVE); BENZODIAZEPINES URINE NEGATIVE (NEGATIVE); CANNABINOIDS URINE NEGATIVE (NEGATIVE); COCAINE METABOLITE URINE NEGATIVE (NEGATIVE); METHADONE URINE NEGATIVE (NEGATIVE); OPIATES URINE NEGATIVE (NEGATIVE); PHENCYCLIDINE URINE NEGATIVE (NEGATIVE)
[2021-02-21 15:05] LABS: ACETAMINOPHEN LEVEL < 2.0 UG/ML (10.0-30.0); ALBUMIN 4.2 GM/DL (3.2-5.2); ALT/SGPT 46 U/L (12-78); BILIRUBIN,DIRECT 0.2 MG/DL (0.0-0.2); BILIRUBIN,TOTAL 0.5 MG/DL (0.2-1.0); BLOOD UREA NITROGEN 14 MG/DL (7-18); CARBON DIOXIDE LEVEL 27 MEQ/L (21-32); CHLORIDE LEVEL 101 MEQ/L (98-107); CREATININE FOR GFR 0.86 MG/DL (0.70-1.30); ETHYL ALCOHOL (ETHANOL) < 0.003 % (0.000-0.010); GLOMERULAR FILTRATION RATE > 60.0 (>56); GLUCOSE, FASTING 251 MG/DL (70-100); POTASSIUM SERUM 3.4 MEQ/L (3.5-5.1); SALICYLATE LEVEL < 1.7 MG/DL (5.0-30.0); SODIUM LEVEL 136 MEQ/L (136-145); TOTAL PROTEIN 7.4 GM/DL (6.4-8.2)
[2021-02-21] MEDS ORDERED: ACETAMINOPHEN TAB 650MG DOSE (2X325MG) PO ONE (16:35)
[2021-02-21 16:36] LABS: RSV AMPLIFICATION NEGATIVE (NEGATIVE)
[2021-02-21] MEDS ORDERED: MOM 30ML SUSPENSION UDC PO PRN (18:35)
[2021-02-21] MEDS ORDERED: MAALOX 30 ML SUSP *UDC PO PRN (18:35)
[2021-02-21] MEDS ORDERED: QUET300T2 PO (18:51)
[2021-02-21] MEDS ORDERED: HALO10TA20 PO ×2 (18:58→19:04)
[2021-02-21] MEDS ORDERED: ATEN25TA PO (18:58)
[2021-02-21] MEDS ORDERED: CYCL-707 PO (18:58)
[2021-02-21] MEDS ORDERED: ASPI-161 PO (18:58)
[2021-02-21] MEDS ORDERED: BENZ2TAB5 PO (18:58)
[2021-02-21] MEDS ORDERED: AMLO1TAB24 PO (18:58)
[2021-02-21] MEDS ORDERED: LORA1TAB4 PO (18:58)
[2021-02-21] MEDS ORDERED: HALO10AM INJ (19:02)
[2021-02-21] MEDS ORDERED: OMEP-173 PO (19:02)
[2021-02-21] MEDS ORDERED: TRAZ-252 PO (19:02)
[2021-02-21] MEDS ORDERED: LISI20TA33 PO (19:02)
[2021-02-21] MEDS ORDERED: OMEGCAP4 PO (19:02)
[2021-02-21] MEDS ORDERED: ACET-910 PO (19:04)
[2021-02-21] MEDS ORDERED: HOME MED LIST COMPLETE! XX SCH (19:05)
[2021-02-21] MEDS ORDERED: LORazepam 2 MG/ML VIAL IV STA (19:39)
[2021-02-21 22:38] VITALS: BP 152/82
[2021-02-21] MEDS: QUEtiapine FUMARATE 100 MG TAB PO SCH (23:42)
[2021-02-21] MEDS: MONTELUKAST 10 MG TAB PO SCH (23:42)
[2021-02-21] MEDS: TAMSULOSIN 0.4 MG CAP PO SCH (23:42)
[2021-02-21] MEDS: CYCLOBENZAPRINE 10MG TABLET PO SCH (23:42)
[2021-02-21] MEDS: ATORVASTATIN 20 MG TAB PO SCH (23:43)
[2021-02-21] MEDS: metFORMIN (GLUCOPHAGE) 1000 MG TABLET PO SCH (23:43)
[2021-02-21] MEDS: atenoloL 25 MG TAB PO SCH (23:43)
[2021-02-21] MEDS: BENZTROPINE 2 MG TAB PO SCH (23:43)
[2021-02-21] MEDS: traZODone 50 MG TAB PO PRN (23:43)
[2021-02-21] MEDS: DOCUSATE SODIUM 100MG CAPSULE PO SCH (23:43)
[2021-02-22] MEDS: LORazepam 1 MG TAB PO PRN ×3 (00:25→21:27)
[2021-02-22] MEDS: ACETAMINOPHEN TAB 650MG DOSE (2X325MG) PO PRN ×2 (00:26→19:19)
[2021-02-22 02:00] VITALS: BP 120/78
[2021-02-22 03:44] LABS: BASO % 0.5 % (0.0-1.0); EOS # 0.3 10^3/uL (0.0-0.5); EOS % 3.7 % (0.0-3.0); HEMOGLOBIN 12.5 g/dl (13.5-17.5); LYMPH % 24.1 % (24.0-44.0); MEAN CORPUSCULAR HEMOGLOBIN 27.5 pg (27.0-33.0); MEAN CORPUSCULAR HGB CONC 32.9 g/dl (32.0-36.5); MEAN CORPUSCULAR VOLUME 83.7 fl (80.0-96.0); MONO # 0.9 10^3/uL (0.0-0.8); MONO % 11.2 % (2.0-8.0); NEUTROPHILS # 4.8 10^3/uL (1.5-8.5); NEUTROPHILS % 59.6 % (36.0-66.0); PLATELET COUNT, AUTOMATED 236 10^3/uL (150-450); RED BLOOD COUNT 4.54 10^6/uL (4.30-6.10); WHITE BLOOD COUNT 8.1 10^3/uL (4.0-10.0)
[2021-02-22 04:12] LABS: BLOOD UREA NITROGEN 15 MG/DL (7-18); CALCIUM LEVEL 8.3 MG/DL (8.5-10.1); CARBON DIOXIDE LEVEL 30 MEQ/L (21-32); CHLORIDE LEVEL 102 MEQ/L (98-107); CREATININE FOR GFR 0.91 MG/DL (0.70-1.30); GLOMERULAR FILTRATION RATE > 60.0 (>56); GLUCOSE, FASTING 171 MG/DL (70-100); MAGNESIUM LEVEL 1.9 MG/DL (1.8-2.4); NT-PRO BNP 22 PG/ML (<125); POTASSIUM SERUM 3.7 MEQ/L (3.5-5.1); SODIUM LEVEL 141 MEQ/L (136-145)
[2021-02-22] MEDS ORDERED: DOXYCYCLINE HYCLATE 100MG TABLET PO SCH (05:30)
[2021-02-22] MEDS: LEVOTHYROXINE 100MCG TABLET (0.1MG) PO SCH (06:07)
[2021-02-22] MEDS: OMEGA-3 1000MG CAPSULE PO SCH (08:17)
[2021-02-22] MEDS: oxyBUTYnin 5 MG TAB PO SCH (08:17)
[2021-02-22] MEDS: BENZONATATE 100MG CAPSULE PO PRN ×3 (08:18→21:25)
[2021-02-22] MEDS: metFORMIN (GLUCOPHAGE) 1000 MG TABLET PO SCH ×2 (08:18→17:01)
[2021-02-22] MEDS: atenoloL 25 MG TAB PO SCH ×2 (08:19→21:28)
[2021-02-22] MEDS: lamoTRIgine 100MG TAB PO SCH (08:19)
[2021-02-22] MEDS: BENZTROPINE 2 MG TAB PO SCH ×2 (08:20→21:25)
[2021-02-22] MEDS: OMEPRAZOLE 20MG CAP PO SCH (08:20)
[2021-02-22] MEDS: ASPIRIN 81MG ENTERIC TABLET PO SCH (08:20)
[2021-02-22] MEDS: amLODIPine 5 MG TAB PO SCH (08:20)
[2021-02-22] MEDS: LACTOBACILLUS ACIDOPHILUS CAP (BACID) PO SCH (08:21)
[2021-02-22] MEDS: DOCUSATE SODIUM 100MG CAPSULE PO SCH ×2 (08:21→21:26)
[2021-02-22] MEDS ORDERED: diphenhydrAMINE 50MG CAP PO STA (08:23)
[2021-02-22] MEDS ORDERED: LORazepam 2 MG TAB PO STA (08:23)
[2021-02-22] MEDS ORDERED: FLUTICASONE PROP 0.05% NASAL SPRAY 16 GM (FLONASE) NARES SCH (09:00)
[2021-02-22] MEDS: TAMSULOSIN 0.4 MG CAP PO SCH (17:01)
[2021-02-22 18:42] VITALS: BP 130/90
[2021-02-22] MEDS: MONTELUKAST 10 MG TAB PO SCH (21:25)
[2021-02-22] MEDS: ATORVASTATIN 20 MG TAB PO SCH (21:25)
[2021-02-22] MEDS: CYCLOBENZAPRINE 10MG TABLET PO SCH (21:25)
[2021-02-22] MEDS: QUEtiapine FUMARATE 100 MG TAB PO SCH (21:26)
[2021-02-22] MEDS: traZODone 50 MG TAB PO PRN (21:27)
[2021-02-22] MEDS: ANALGESIC BALM CRM 3OZ TOP PRN (22:45)
[2021-02-22] MEDS: FLUTICASONE PROP 0.05% NASAL SPRAY 16 GM (FLONASE) NARES SCH (22:45)
[2021-02-23] MEDS: LEVOTHYROXINE 100MCG TABLET (0.1MG) PO SCH (05:46)
[2021-02-23] MEDS: ACETAMINOPHEN TAB 650MG DOSE (2X325MG) PO PRN ×2 (05:47→20:17)
[2021-02-23 06:44] VITALS: BP 142/84
[2021-02-23] MEDS: metFORMIN (GLUCOPHAGE) 1000 MG TABLET PO SCH ×2 (08:04→18:02)
[2021-02-23] MEDS: OMEGA-3 1000MG CAPSULE PO SCH (08:10)
[2021-02-23] MEDS: FLUTICASONE PROP 0.05% NASAL SPRAY 16 GM (FLONASE) NARES SCH ×2 (08:10→20:09)
[2021-02-23] MEDS: oxyBUTYnin 5 MG TAB PO SCH (08:10)
[2021-02-23] MEDS: atenoloL 25 MG TAB PO SCH ×2 (08:11→20:10)
[2021-02-23] MEDS: BENZTROPINE 2 MG TAB PO SCH ×2 (08:11→20:09)
[2021-02-23] MEDS: lamoTRIgine 100MG TAB PO SCH (08:12)
[2021-02-23] MEDS: OMEPRAZOLE 20MG CAP PO SCH (08:13)
[2021-02-23] MEDS: amLODIPine 5 MG TAB PO SCH (08:13)
[2021-02-23] MEDS: ASPIRIN 81MG ENTERIC TABLET PO SCH (08:13)
[2021-02-23] MEDS: LACTOBACILLUS ACIDOPHILUS CAP (BACID) PO SCH (08:14)
[2021-02-23] MEDS: DOCUSATE SODIUM 100MG CAPSULE PO SCH ×2 (08:14→20:10)
[2021-02-23] MEDS: BENZONATATE 100MG CAPSULE PO PRN (08:15)
[2021-02-23] MEDS: guaiFENesin DM *SUGAR FREE* 5ML**DIABETIC TUSSIN DM PO PRN ×2 (15:03→20:55)
[2021-02-23] MEDS: TAMSULOSIN 0.4 MG CAP PO SCH (18:02)
[2021-02-23 18:23] VITALS: BP 148/82
[2021-02-23] MEDS: MONTELUKAST 10 MG TAB PO SCH (20:09)
[2021-02-23] MEDS: ATORVASTATIN 20 MG TAB PO SCH (20:09)
[2021-02-23] MEDS: QUEtiapine FUMARATE 100 MG TAB PO SCH (20:10)
[2021-02-23] MEDS: CYCLOBENZAPRINE 10MG TABLET PO SCH (20:10)
[2021-02-23] MEDS: ANALGESIC BALM CRM 3OZ TOP PRN (20:33)
[2021-02-23] MEDS: traZODone 50 MG TAB PO PRN (21:36)
[2021-02-23] MEDS: LORazepam 1 MG TAB PO PRN (21:37)
[2021-02-24] MEDS: LEVOTHYROXINE 100MCG TABLET (0.1MG) PO SCH (05:28)
[2021-02-24] MEDS: ACETAMINOPHEN TAB 650MG DOSE (2X325MG) PO PRN ×3 (05:29→18:21)
[2021-02-24] MEDS ORDERED: LevoFLOXacin 500 MG TABLET PO SCH (06:00)
[2021-02-24 06:45] VITALS: BP 137/63
[2021-02-24] MEDS: OMEGA-3 1000MG CAPSULE PO SCH (07:49)
[2021-02-24] MEDS: oxyBUTYnin 5 MG TAB PO SCH (07:49)
[2021-02-24] MEDS: FLUTICASONE PROP 0.05% NASAL SPRAY 16 GM (FLONASE) NARES SCH ×2 (07:49→21:49)
[2021-02-24] MEDS: metFORMIN (GLUCOPHAGE) 1000 MG TABLET PO SCH ×2 (07:50→18:17)
[2021-02-24] MEDS: lamoTRIgine 100MG TAB PO SCH (07:50)
[2021-02-24] MEDS: OMEPRAZOLE 20MG CAP PO SCH (07:50)
[2021-02-24] MEDS: BENZTROPINE 2 MG TAB PO SCH ×2 (07:51→21:50)
[2021-02-24] MEDS: DOCUSATE SODIUM 100MG CAPSULE PO SCH ×2 (07:51→21:50)
[2021-02-24] MEDS: ASPIRIN 81MG ENTERIC TABLET PO SCH (07:51)
[2021-02-24] MEDS: LACTOBACILLUS ACIDOPHILUS CAP (BACID) PO SCH (07:51)
[2021-02-24] MEDS: atenoloL 25 MG TAB PO SCH ×2 (07:55→21:51)
[2021-02-24] MEDS: amLODIPine 5 MG TAB PO SCH (07:55)
[2021-02-24] MEDS: BENZONATATE 100MG CAPSULE PO PRN ×2 (11:34→18:23)
[2021-02-24] MEDS: LORazepam 1 MG TAB PO PRN (11:35)
[2021-02-24] MEDS: ALBUTEROL 90 MCG/ACT 8GM HFA INHALER INH PRN (11:36)
[2021-02-24] MEDS: guaiFENesin DM *SUGAR FREE* 5ML**DIABETIC TUSSIN DM PO PRN (13:06)
[2021-02-24] MEDS: QUEtiapine FUMARATE 200 MG TAB PO SCH ×2 (13:06→21:51)
[2021-02-24 17:05] VITALS: BP 140/79
[2021-02-24] MEDS: LevoFLOXacin 500 MG TABLET PO SCH (18:17)
[2021-02-24] MEDS: TAMSULOSIN 0.4 MG CAP PO SCH (18:18)
[2021-02-24] MEDS: ATORVASTATIN 20 MG TAB PO SCH (21:50)
[2021-02-24] MEDS: MONTELUKAST 10 MG TAB PO SCH (21:50)
[2021-02-24] MEDS: APIXABAN 5 MG TAB (ELIQUIS) PO SCH (21:50)
[2021-02-24] MEDS: CYCLOBENZAPRINE 10MG TABLET PO SCH (21:50)
[2021-02-24] MEDS: ANALGESIC BALM CRM 3OZ TOP PRN (23:16)
[2021-02-25] MEDS: BENZONATATE 100MG CAPSULE PO PRN ×3 (00:25→21:37)
[2021-02-25] MEDS: traZODone 50 MG TAB PO PRN ×2 (00:49→21:37)
[2021-02-25] MEDS: LORazepam 1 MG TAB PO PRN ×2 (00:49→10:03)
[2021-02-25] MEDS: ACETAMINOPHEN TAB 650MG DOSE (2X325MG) PO PRN ×2 (00:51→21:34)
[2021-02-25] MEDS: guaiFENesin DM *SUGAR FREE* 5ML**DIABETIC TUSSIN DM PO PRN (01:57)
[2021-02-25] MEDS: LevoFLOXacin 500 MG TABLET PO SCH (05:59)
[2021-02-25] MEDS: LEVOTHYROXINE 100MCG TABLET (0.1MG) PO SCH (05:59)
[2021-02-25 06:32] VITALS: BP 162/100
[2021-02-25] MEDS: FLUTICASONE PROP 0.05% NASAL SPRAY 16 GM (FLONASE) NARES SCH ×2 (08:36→21:33)
[2021-02-25] MEDS: APIXABAN 5 MG TAB (ELIQUIS) PO SCH ×2 (08:37→21:35)
[2021-02-25] MEDS: BENZTROPINE 2 MG TAB PO SCH ×2 (08:37→21:34)
[2021-02-25] MEDS: DOCUSATE SODIUM 100MG CAPSULE PO SCH ×2 (08:37→21:34)
[2021-02-25] MEDS: OMEPRAZOLE 20MG CAP PO SCH (08:37)
[2021-02-25] MEDS: OMEGA-3 1000MG CAPSULE PO SCH (08:37)
[2021-02-25] MEDS: QUEtiapine FUMARATE 200 MG TAB PO SCH ×2 (08:37→21:34)
[2021-02-25] MEDS: LACTOBACILLUS ACIDOPHILUS CAP (BACID) PO SCH (08:37)
[2021-02-25] MEDS: oxyBUTYnin 5 MG TAB PO SCH (08:37)
[2021-02-25] MEDS: ASPIRIN 81MG ENTERIC TABLET PO SCH (08:37)
[2021-02-25] MEDS: atenoloL 25 MG TAB PO SCH ×2 (08:37→21:35)
[2021-02-25] MEDS: metFORMIN (GLUCOPHAGE) 1000 MG TABLET PO SCH ×2 (08:37→17:05)
[2021-02-25] MEDS: amLODIPine 5 MG TAB PO SCH (08:37)
[2021-02-25] MEDS: lamoTRIgine 100MG TAB PO SCH (08:38)
[2021-02-25] MEDS ORDERED: LIDOCAINE 5% OINT 30GM TUBE TOP SCH (09:00)
[2021-02-25] MEDS ORDERED: ANALGESIC BALM CRM 3OZ TOP SCH (09:00)
[2021-02-25] MEDS: MULTIVITAMINS/MINERALS THERAP 1 TAB PO SCH (09:59)
[2021-02-25] MEDS: LIDOCAINE 5% OINT 30GM TUBE TOP SCH (11:47)
[2021-02-25] MEDS: ANALGESIC BALM CRM 3OZ TOP SCH ×2 (11:47→21:32)
[2021-02-25 16:31] VITALS: BP 136/74
[2021-02-25] MEDS: TAMSULOSIN 0.4 MG CAP PO SCH (17:05)
[2021-02-25] MEDS: CYCLOBENZAPRINE 10MG TABLET PO SCH (21:34)
[2021-02-25] MEDS: ATORVASTATIN 20 MG TAB PO SCH (21:34)
[2021-02-25] MEDS: MONTELUKAST 10 MG TAB PO SCH (21:34)
[2021-02-25] MEDS: LIDOCAINE 5% (LIDODERM) PATCH TD SCH (22:26)
[2021-02-26] MEDS: guaiFENesin DM *SUGAR FREE* 5ML**DIABETIC TUSSIN DM PO PRN ×2 (04:50→18:56)
[2021-02-26] MEDS: ACETAMINOPHEN TAB 650MG DOSE (2X325MG) PO PRN ×2 (04:50→18:56)
[2021-02-26] MEDS: LevoFLOXacin 500 MG TABLET PO SCH (05:04)
[2021-02-26] MEDS: LEVOTHYROXINE 100MCG TABLET (0.1MG) PO SCH (05:04)
[2021-02-26 06:45] VITALS: BP 150/100
[2021-02-26] MEDS: FLUTICASONE PROP 0.05% NASAL SPRAY 16 GM (FLONASE) NARES SCH ×2 (07:34→22:03)
[2021-02-26] MEDS: BENZONATATE 100MG CAPSULE PO PRN ×2 (07:35→23:00)
[2021-02-26] MEDS: OMEGA-3 1000MG CAPSULE PO SCH (07:35)
[2021-02-26] MEDS: DOCUSATE SODIUM 100MG CAPSULE PO SCH ×2 (07:35→22:03)
[2021-02-26] MEDS: oxyBUTYnin 5 MG TAB PO SCH (07:35)
[2021-02-26] MEDS: MULTIVITAMINS/MINERALS THERAP 1 TAB PO SCH (07:35)
[2021-02-26] MEDS: metFORMIN (GLUCOPHAGE) 1000 MG TABLET PO SCH ×2 (07:35→17:13)
[2021-02-26] MEDS: LACTOBACILLUS ACIDOPHILUS CAP (BACID) PO SCH (07:35)
[2021-02-26] MEDS: ASPIRIN 81MG ENTERIC TABLET PO SCH (07:35)
[2021-02-26] MEDS: lamoTRIgine 100MG TAB PO SCH (07:36)
[2021-02-26] MEDS: QUEtiapine FUMARATE 200 MG TAB PO SCH ×2 (07:36→22:05)
[2021-02-26] MEDS: BENZTROPINE 2 MG TAB PO SCH ×2 (07:36→22:04)
[2021-02-26] MEDS: OMEPRAZOLE 20MG CAP PO SCH (07:36)
[2021-02-26] MEDS: APIXABAN 5 MG TAB (ELIQUIS) PO SCH ×2 (07:37→22:04)
[2021-02-26] MEDS: ANALGESIC BALM CRM 3OZ TOP SCH ×2 (07:37→22:03)
[2021-02-26] MEDS: LIDOCAINE 5% OINT 30GM TUBE TOP SCH (07:37)
[2021-02-26] MEDS: amLODIPine 5 MG TAB PO SCH (07:38)
[2021-02-26] MEDS: atenoloL 25 MG TAB PO SCH ×2 (07:39→22:04)
[2021-02-26] MEDS: **NOTE PATIENT COMMENT** MISC XX SCH (07:47)
[2021-02-26 16:09] LABS: MYCOPLASMA PNEUMONIAE IgG 152 U/mL (0-99); MYCOPLASMA PNEUMONIAE IgM <770 U/mL (0-769)
[2021-02-26 16:25] VITALS: BP 128/90
[2021-02-26] MEDS: TAMSULOSIN 0.4 MG CAP PO SCH (17:13)
[2021-02-26] MEDS ORDERED: LIDOCAINE 5% (LIDODERM) PATCH TD SCH (21:00)
[2021-02-26] MEDS ORDERED: **NOTE PATIENT COMMENT** MISC XX SCH (21:00)
[2021-02-26] MEDS: LIDOCAINE 5% (LIDODERM) PATCH TD SCH (22:02)
[2021-02-26] MEDS: ATORVASTATIN 20 MG TAB PO SCH (22:03)
[2021-02-26] MEDS: CYCLOBENZAPRINE 10MG TABLET PO SCH (22:03)
[2021-02-26] MEDS: MONTELUKAST 10 MG TAB PO SCH (22:04)
[2021-02-26] MEDS: traZODone 50 MG TAB PO PRN (22:05)
[2021-02-26] MEDS: LORazepam 1 MG TAB PO PRN (23:00)
[2021-02-27] MEDS: ACETAMINOPHEN TAB 650MG DOSE (2X325MG) PO PRN ×2 (00:59→13:16)
[2021-02-27] MEDS: LEVOTHYROXINE 100MCG TABLET (0.1MG) PO SCH (05:47)
[2021-02-27] MEDS: LevoFLOXacin 500 MG TABLET PO SCH (05:48)
[2021-02-27 06:57] VITALS: BP 151/92
[2021-02-27] MEDS: FLUTICASONE PROP 0.05% NASAL SPRAY 16 GM (FLONASE) NARES SCH ×2 (08:26→21:52)
[2021-02-27] MEDS: OMEGA-3 1000MG CAPSULE PO SCH (08:27)
[2021-02-27] MEDS: oxyBUTYnin 5 MG TAB PO SCH (08:27)
[2021-02-27] MEDS: BENZTROPINE 2 MG TAB PO SCH ×2 (08:27→21:50)
[2021-02-27] MEDS: metFORMIN (GLUCOPHAGE) 1000 MG TABLET PO SCH ×2 (08:28→17:11)
[2021-02-27] MEDS: APIXABAN 5 MG TAB (ELIQUIS) PO SCH ×2 (08:28→21:50)
[2021-02-27] MEDS: lamoTRIgine 100MG TAB PO SCH (08:29)
[2021-02-27] MEDS: amLODIPine 5 MG TAB PO SCH (08:29)
[2021-02-27] MEDS: atenoloL 25 MG TAB PO SCH ×2 (08:29→21:50)
[2021-02-27] MEDS: MULTIVITAMINS/MINERALS THERAP 1 TAB PO SCH (08:30)
[2021-02-27] MEDS: OMEPRAZOLE 20MG CAP PO SCH (08:30)
[2021-02-27] MEDS: QUEtiapine FUMARATE 200 MG TAB PO SCH (08:30)
[2021-02-27] MEDS: ASPIRIN 81MG ENTERIC TABLET PO SCH (08:30)
[2021-02-27] MEDS: DOCUSATE SODIUM 100MG CAPSULE PO SCH ×2 (08:31→21:50)
[2021-02-27] MEDS: LACTOBACILLUS ACIDOPHILUS CAP (BACID) PO SCH (08:31)
[2021-02-27] MEDS: BENZONATATE 100MG CAPSULE PO PRN (08:32)
[2021-02-27] MEDS: ANALGESIC BALM CRM 3OZ TOP SCH ×2 (08:54→21:50)
[2021-02-27] MEDS: LIDOCAINE 5% OINT 30GM TUBE TOP SCH (08:54)
[2021-02-27] MEDS: **NOTE PATIENT COMMENT** MISC XX SCH (09:00)
[2021-02-27] MEDS: TAMSULOSIN 0.4 MG CAP PO SCH (17:11)
[2021-02-27 18:47] VITALS: BP 140/82
[2021-02-27] MEDS: QUEtiapine FUMARATE 100 MG TAB PO SCH (21:49)
[2021-02-27] MEDS: traZODone 50 MG TAB PO PRN (21:50)
[2021-02-27] MEDS: MONTELUKAST 10 MG TAB PO SCH (21:50)
[2021-02-27] MEDS: CYCLOBENZAPRINE 10MG TABLET PO SCH (21:50)
[2021-02-27] MEDS: ATORVASTATIN 20 MG TAB PO SCH (21:50)
[2021-02-27] MEDS: LIDOCAINE 5% (LIDODERM) PATCH TD SCH (21:51)
[2021-02-27] MEDS: ALBUTEROL 90 MCG/ACT 8GM HFA INHALER INH PRN (22:45)
[2021-02-27] MEDS: LORazepam 1 MG TAB PO PRN (22:46)
[2021-02-28] MEDS: BENZONATATE 100MG CAPSULE PO PRN ×3 (00:15→22:24)
[2021-02-28] MEDS: ACETAMINOPHEN TAB 650MG DOSE (2X325MG) PO PRN ×3 (00:19→13:25)
[2021-02-28 01:21] VITALS: BP 120/74
[2021-02-28] MEDS: LEVOTHYROXINE 100MCG TABLET (0.1MG) PO SCH (05:32)
[2021-02-28 06:18] VITALS: BP 138/82
[2021-02-28] MEDS: guaiFENesin DM *SUGAR FREE* 5ML**DIABETIC TUSSIN DM PO PRN (06:40)
[2021-02-28] MEDS: metFORMIN (GLUCOPHAGE) 1000 MG TABLET PO SCH ×2 (08:35→17:56)
[2021-02-28] MEDS: QUEtiapine FUMARATE 100 MG TAB PO SCH ×2 (08:35→20:34)
[2021-02-28] MEDS: APIXABAN 5 MG TAB (ELIQUIS) PO SCH (08:35)
[2021-02-28] MEDS: atenoloL 25 MG TAB PO SCH ×2 (08:35→18:14)
[2021-02-28] MEDS: BENZTROPINE 2 MG TAB PO SCH ×2 (08:35→20:33)
[2021-02-28] MEDS: LACTOBACILLUS ACIDOPHILUS CAP (BACID) PO SCH (08:36)
[2021-02-28] MEDS: lamoTRIgine 100MG TAB PO SCH (08:36)
[2021-02-28] MEDS: ASPIRIN 81MG ENTERIC TABLET PO SCH (08:36)
[2021-02-28] MEDS: amLODIPine 5 MG TAB PO SCH (08:36)
[2021-02-28] MEDS: MULTIVITAMINS/MINERALS THERAP 1 TAB PO SCH (08:36)
[2021-02-28] MEDS: DOCUSATE SODIUM 100MG CAPSULE PO SCH ×2 (08:36→20:33)
[2021-02-28] MEDS: OMEGA-3 1000MG CAPSULE PO SCH (08:36)
[2021-02-28] MEDS: OMEPRAZOLE 20MG CAP PO SCH (08:36)
[2021-02-28] MEDS: oxyBUTYnin 5 MG TAB PO SCH (08:36)
[2021-02-28] MEDS: FLUTICASONE PROP 0.05% NASAL SPRAY 16 GM (FLONASE) NARES SCH ×2 (08:37→20:33)
[2021-02-28] MEDS: LIDOCAINE 5% OINT 30GM TUBE TOP SCH (08:37)
[2021-02-28] MEDS: ANALGESIC BALM CRM 3OZ TOP SCH ×2 (08:37→20:32)
[2021-02-28] MEDS: **NOTE PATIENT COMMENT** MISC XX SCH (09:00)
[2021-02-28] MEDS: LevoFLOXacin 500 MG TABLET PO SCH (10:30)
[2021-02-28] MEDS: ALBUTEROL 90 MCG/ACT 8GM HFA INHALER INH PRN ×2 (14:31→21:02)
[2021-02-28] MEDS: TAMSULOSIN 0.4 MG CAP PO SCH (17:55)
[2021-02-28 18:41] VITALS: BP 167/92
[2021-02-28] MEDS: LIDOCAINE 5% (LIDODERM) PATCH TD SCH (20:33)
[2021-02-28] MEDS: CYCLOBENZAPRINE 10MG TABLET PO SCH (20:34)
[2021-02-28] MEDS: MONTELUKAST 10 MG TAB PO SCH (20:34)
[2021-02-28] MEDS: ATORVASTATIN 20 MG TAB PO SCH (20:34)
[2021-03-01] MEDS: LORazepam 1 MG TAB PO PRN (01:56)
[2021-03-01] MEDS: ACETAMINOPHEN TAB 650MG DOSE (2X325MG) PO PRN ×2 (01:57→10:17)
[2021-03-01 06:13] VITALS: BP 142/94
[2021-03-01] MEDS: LEVOTHYROXINE 100MCG TABLET (0.1MG) PO SCH (06:15)
[2021-03-01] MEDS: LIDOCAINE 5% OINT 30GM TUBE TOP SCH (07:49)
[2021-03-01] MEDS: DOCUSATE SODIUM 100MG CAPSULE PO SCH ×2 (07:50→21:51)
[2021-03-01] MEDS: OMEPRAZOLE 20MG CAP PO SCH (07:50)
[2021-03-01] MEDS: FLUTICASONE PROP 0.05% NASAL SPRAY 16 GM (FLONASE) NARES SCH ×2 (07:50→21:49)
[2021-03-01] MEDS: QUEtiapine FUMARATE 100 MG TAB PO SCH ×2 (07:50→21:50)
[2021-03-01] MEDS: MULTIVITAMINS/MINERALS THERAP 1 TAB PO SCH (07:50)
[2021-03-01] MEDS: ANALGESIC BALM CRM 3OZ TOP SCH ×2 (07:50→21:49)
[2021-03-01] MEDS: amLODIPine 5 MG TAB PO SCH (07:51)
[2021-03-01] MEDS: atenoloL 25 MG TAB PO SCH ×2 (07:51→21:54)
[2021-03-01] MEDS: OMEGA-3 1000MG CAPSULE PO SCH (07:51)
[2021-03-01] MEDS: BENZTROPINE 2 MG TAB PO SCH ×2 (07:51→21:50)
[2021-03-01] MEDS: lamoTRIgine 100MG TAB PO SCH (07:51)
[2021-03-01] MEDS: metFORMIN (GLUCOPHAGE) 1000 MG TABLET PO SCH ×2 (07:51→17:05)
[2021-03-01] MEDS: oxyBUTYnin 5 MG TAB PO SCH (07:51)
[2021-03-01] MEDS: LACTOBACILLUS ACIDOPHILUS CAP (BACID) PO SCH (07:51)
[2021-03-01] MEDS: ASPIRIN 81MG ENTERIC TABLET PO SCH (07:51)
[2021-03-01] MEDS: **NOTE PATIENT COMMENT** MISC XX SCH (07:59)
[2021-03-01 16:45] VITALS: BP 142/76
[2021-03-01] MEDS: TAMSULOSIN 0.4 MG CAP PO SCH (17:05)
[2021-03-01] MEDS: LIDOCAINE 5% (LIDODERM) PATCH TD SCH (21:48)
[2021-03-01] MEDS: ATORVASTATIN 20 MG TAB PO SCH (21:50)
[2021-03-01] MEDS: CYCLOBENZAPRINE 10MG TABLET PO SCH (21:51)
[2021-03-01] MEDS: MONTELUKAST 10 MG TAB PO SCH (21:51)
[2021-03-01] MEDS: guaiFENesin DM *SUGAR FREE* 5ML**DIABETIC TUSSIN DM PO PRN (23:32)
[2021-03-02] MEDS: LEVOTHYROXINE 100MCG TABLET (0.1MG) PO SCH (05:38)
[2021-03-02 06:42] VITALS: BP 142/88
[2021-03-02] MEDS: DOCUSATE SODIUM 100MG CAPSULE PO SCH ×2 (09:06→21:55)
[2021-03-02] MEDS: LACTOBACILLUS ACIDOPHILUS CAP (BACID) PO SCH (09:06)
[2021-03-02] MEDS: metFORMIN (GLUCOPHAGE) 1000 MG TABLET PO SCH ×2 (09:06→17:05)
[2021-03-02] MEDS: FLUTICASONE PROP 0.05% NASAL SPRAY 16 GM (FLONASE) NARES SCH ×2 (09:06→21:54)
[2021-03-02] MEDS: ASPIRIN 81MG ENTERIC TABLET PO SCH (09:06)
[2021-03-02] MEDS: ANALGESIC BALM CRM 3OZ TOP SCH ×2 (09:07→21:52)
[2021-03-02] MEDS: LIDOCAINE 5% OINT 30GM TUBE TOP SCH (09:08)
[2021-03-02] MEDS: lamoTRIgine 100MG TAB PO SCH (09:08)
[2021-03-02] MEDS: atenoloL 25 MG TAB PO SCH ×2 (09:08→21:55)
[2021-03-02] MEDS: BENZTROPINE 2 MG TAB PO SCH ×2 (09:08→21:54)
[2021-03-02] MEDS: amLODIPine 5 MG TAB PO SCH (09:08)
[2021-03-02] MEDS: MULTIVITAMINS/MINERALS THERAP 1 TAB PO SCH (09:11)
[2021-03-02] MEDS: oxyBUTYnin 5 MG TAB PO SCH (09:11)
[2021-03-02] MEDS: OMEPRAZOLE 20MG CAP PO SCH (09:11)
[2021-03-02] MEDS: QUEtiapine FUMARATE 100 MG TAB PO SCH ×2 (09:11→22:55)
[2021-03-02] MEDS: OMEGA-3 1000MG CAPSULE PO SCH (09:12)
[2021-03-02] MEDS: **NOTE PATIENT COMMENT** MISC XX SCH (09:12)
[2021-03-02] MEDS: BENZONATATE 100MG CAPSULE PO PRN (10:14)
[2021-03-02] MEDS: guaiFENesin DM *SUGAR FREE* 5ML**DIABETIC TUSSIN DM PO PRN (11:26)
[2021-03-02 16:46] VITALS: BP 150/86
[2021-03-02] MEDS: TAMSULOSIN 0.4 MG CAP PO SCH (17:05)
[2021-03-02] MEDS: LIDOCAINE 5% (LIDODERM) PATCH TD SCH (21:52)
[2021-03-02] MEDS: CYCLOBENZAPRINE 10MG TABLET PO SCH (21:54)
[2021-03-02] MEDS: MONTELUKAST 10 MG TAB PO SCH (21:54)
[2021-03-02] MEDS: ATORVASTATIN 20 MG TAB PO SCH (21:55)
[2021-03-03] MEDS: LORazepam 1 MG TAB PO PRN ×2 (01:47→23:54)
[2021-03-03] MEDS: BENZONATATE 100MG CAPSULE PO PRN ×2 (01:48→20:03)
[2021-03-03] MEDS: LEVOTHYROXINE 100MCG TABLET (0.1MG) PO SCH (05:27)
[2021-03-03 06:54] VITALS: BP 166/90
[2021-03-03] MEDS: MULTIVITAMINS/MINERALS THERAP 1 TAB PO SCH (08:21)
[2021-03-03] MEDS: DOCUSATE SODIUM 100MG CAPSULE PO SCH ×2 (08:21→20:05)
[2021-03-03] MEDS: ASPIRIN 81MG ENTERIC TABLET PO SCH (08:21)
[2021-03-03] MEDS: QUEtiapine FUMARATE 100 MG TAB PO SCH (08:21)
[2021-03-03] MEDS: LACTOBACILLUS ACIDOPHILUS CAP (BACID) PO SCH (08:21)
[2021-03-03] MEDS: metFORMIN (GLUCOPHAGE) 1000 MG TABLET PO SCH ×2 (08:21→17:10)
[2021-03-03] MEDS: lamoTRIgine 100MG TAB PO SCH (08:21)
[2021-03-03] MEDS: OMEPRAZOLE 20MG CAP PO SCH (08:21)
[2021-03-03] MEDS: BENZTROPINE 2 MG TAB PO SCH ×2 (08:21→20:06)
[2021-03-03] MEDS: OMEGA-3 1000MG CAPSULE PO SCH (08:24)
[2021-03-03] MEDS: oxyBUTYnin 5 MG TAB PO SCH (08:24)
[2021-03-03] MEDS: **NOTE PATIENT COMMENT** MISC XX SCH (08:25)
[2021-03-03] MEDS: FLUTICASONE PROP 0.05% NASAL SPRAY 16 GM (FLONASE) NARES SCH ×2 (08:26→20:04)
[2021-03-03] MEDS: ANALGESIC BALM CRM 3OZ TOP SCH ×2 (08:27→20:05)
[2021-03-03] MEDS: LIDOCAINE 5% OINT 30GM TUBE TOP SCH (08:27)
[2021-03-03] MEDS: amLODIPine 5 MG TAB PO SCH (08:38)
[2021-03-03] MEDS: atenoloL 25 MG TAB PO SCH ×2 (08:39→20:05)
[2021-03-03] MEDS: guaiFENesin DM *SUGAR FREE* 5ML**DIABETIC TUSSIN DM PO PRN (10:29)
[2021-03-03] MEDS: TAMSULOSIN 0.4 MG CAP PO SCH (17:10)
[2021-03-03 19:23] VITALS: BP 150/92
[2021-03-03] MEDS: LIDOCAINE 5% (LIDODERM) PATCH TD SCH (20:04)
[2021-03-03] MEDS: ATORVASTATIN 20 MG TAB PO SCH (20:05)
[2021-03-03] MEDS: PALIPERIDONE 3 MG ER TAB (INVEGA) PO SCH (20:05)
[2021-03-03] MEDS: CYCLOBENZAPRINE 10MG TABLET PO SCH (20:05)
[2021-03-03] MEDS: MONTELUKAST 10 MG TAB PO SCH (20:06)
[2021-03-03 23:07] LABS: LAMOTRIGINE (LAMICTAL) 1.2 ug/mL (2.0-20.0)
[2021-03-04] MEDS: guaiFENesin DM *SUGAR FREE* 5ML**DIABETIC TUSSIN DM PO PRN (00:56)
[2021-03-04] MEDS: LEVOTHYROXINE 100MCG TABLET (0.1MG) PO SCH (06:18)
[2021-03-04] MEDS: ANALGESIC BALM CRM 3OZ TOP SCH ×2 (08:44→20:15)
[2021-03-04] MEDS: LIDOCAINE 5% OINT 30GM TUBE TOP SCH (08:44)
[2021-03-04] MEDS: FLUTICASONE PROP 0.05% NASAL SPRAY 16 GM (FLONASE) NARES SCH ×2 (08:47→20:15)
[2021-03-04] MEDS: MULTIVITAMINS/MINERALS THERAP 1 TAB PO SCH (08:47)
[2021-03-04] MEDS: PALIPERIDONE 3 MG ER TAB (INVEGA) PO SCH (08:48)
[2021-03-04] MEDS: lamoTRIgine 100MG TAB PO SCH (08:48)
[2021-03-04] MEDS: LACTOBACILLUS ACIDOPHILUS CAP (BACID) PO SCH (08:48)
[2021-03-04] MEDS: BENZTROPINE 2 MG TAB PO SCH ×2 (08:48→20:17)
[2021-03-04] MEDS: ASPIRIN 81MG ENTERIC TABLET PO SCH (08:48)
[2021-03-04] MEDS: DOCUSATE SODIUM 100MG CAPSULE PO SCH ×2 (08:48→20:16)
[2021-03-04] MEDS: OMEPRAZOLE 20MG CAP PO SCH (08:49)
[2021-03-04] MEDS: metFORMIN (GLUCOPHAGE) 1000 MG TABLET PO SCH ×2 (08:49→17:18)
[2021-03-04] MEDS: OMEGA-3 1000MG CAPSULE PO SCH (08:49)
[2021-03-04] MEDS: oxyBUTYnin 5 MG TAB PO SCH (08:49)
[2021-03-04] MEDS: **NOTE PATIENT COMMENT** MISC XX SCH (09:00)
[2021-03-04] MEDS: amLODIPine 5 MG TAB PO SCH (09:23)
[2021-03-04] MEDS: atenoloL 25 MG TAB PO SCH ×2 (09:23→20:17)
[2021-03-04] MEDS: TAMSULOSIN 0.4 MG CAP PO SCH (17:19)
[2021-03-04] MEDS: BENZONATATE 100MG CAPSULE PO PRN (17:19)
[2021-03-04 18:48] VITALS: BP 160/90
[2021-03-04] MEDS: LIDOCAINE 5% (LIDODERM) PATCH TD SCH (20:16)
[2021-03-04] MEDS: ATORVASTATIN 20 MG TAB PO SCH (20:16)
[2021-03-04] MEDS: lamoTRIgine 25MG TAB PO SCH (20:17)
[2021-03-04] MEDS: MONTELUKAST 10 MG TAB PO SCH (20:17)
[2021-03-04] MEDS: CYCLOBENZAPRINE 10MG TABLET PO SCH (20:17)
[2021-03-04] MEDS: ACETAMINOPHEN TAB 650MG DOSE (2X325MG) PO PRN (23:16)
[2021-03-05] MEDS: guaiFENesin DM *SUGAR FREE* 5ML**DIABETIC TUSSIN DM PO PRN ×2 (01:22→14:42)
[2021-03-05] MEDS: LEVOTHYROXINE 100MCG TABLET (0.1MG) PO SCH (05:56)
[2021-03-05 06:00] VITALS: BP 152/90
[2021-03-05] MEDS: LACTOBACILLUS ACIDOPHILUS CAP (BACID) PO SCH (08:22)
[2021-03-05] MEDS: OMEPRAZOLE 20MG CAP PO SCH (08:22)
[2021-03-05] MEDS: OMEGA-3 1000MG CAPSULE PO SCH (08:22)
[2021-03-05] MEDS: MULTIVITAMINS/MINERALS THERAP 1 TAB PO SCH (08:22)
[2021-03-05] MEDS: amLODIPine 5 MG TAB PO SCH (08:22)
[2021-03-05] MEDS: oxyBUTYnin 5 MG TAB PO SCH (08:22)
[2021-03-05] MEDS: ASPIRIN 81MG ENTERIC TABLET PO SCH (08:23)
[2021-03-05] MEDS: lamoTRIgine 100MG TAB PO SCH (08:23)
[2021-03-05] MEDS: DOCUSATE SODIUM 100MG CAPSULE PO SCH ×2 (08:23→21:17)
[2021-03-05] MEDS: BENZTROPINE 2 MG TAB PO SCH ×2 (08:23→21:18)
[2021-03-05] MEDS: atenoloL 25 MG TAB PO SCH (08:23)
[2021-03-05] MEDS: FLUTICASONE PROP 0.05% NASAL SPRAY 16 GM (FLONASE) NARES SCH ×2 (08:24→21:17)
[2021-03-05] MEDS: LIDOCAINE 5% OINT 30GM TUBE TOP SCH (08:25)
[2021-03-05] MEDS: ANALGESIC BALM CRM 3OZ TOP SCH ×2 (08:27→21:16)
[2021-03-05] MEDS: metFORMIN (GLUCOPHAGE) 1000 MG TABLET PO SCH ×2 (08:29→18:00)
[2021-03-05] MEDS: **NOTE PATIENT COMMENT** MISC XX SCH (08:30)
[2021-03-05 17:00] VITALS: BP 174/86
[2021-03-05] MEDS ORDERED: cloNIDine 0.2 MG TAB PO ONE (17:25)
[2021-03-05] MEDS ORDERED: atenoloL 25 MG TAB PO ONE (17:30)
[2021-03-05 17:58] VITALS: BP 175/85
[2021-03-05] MEDS: TAMSULOSIN 0.4 MG CAP PO SCH (17:59)
[2021-03-05] MEDS: LIDOCAINE 5% (LIDODERM) PATCH TD SCH (21:16)
[2021-03-05] MEDS: MONTELUKAST 10 MG TAB PO SCH (21:17)
[2021-03-05] MEDS: CYCLOBENZAPRINE 10MG TABLET PO SCH (21:17)
[2021-03-05] MEDS: ATORVASTATIN 20 MG TAB PO SCH (21:17)
[2021-03-05] MEDS: lamoTRIgine 25MG TAB PO SCH (21:17)
[2021-03-05] MEDS: ACETAMINOPHEN TAB 650MG DOSE (2X325MG) PO PRN (21:43)
[2021-03-05 22:00] VITALS: BP 132/80
[2021-03-05] MEDS: BENZONATATE 100MG CAPSULE PO PRN (23:57)
[2021-03-06] MEDS: ACETAMINOPHEN TAB 650MG DOSE (2X325MG) PO PRN ×3 (06:10→22:15)
[2021-03-06] MEDS: LEVOTHYROXINE 100MCG TABLET (0.1MG) PO SCH (06:10)
[2021-03-06 06:57] VITALS: BP 129/67
[2021-03-06] MEDS: BENZTROPINE 2 MG TAB PO SCH ×2 (08:40→20:37)
[2021-03-06] MEDS: OMEGA-3 1000MG CAPSULE PO SCH (08:40)
[2021-03-06] MEDS: metFORMIN (GLUCOPHAGE) 1000 MG TABLET PO SCH ×2 (08:40→17:22)
[2021-03-06] MEDS: FLUTICASONE PROP 0.05% NASAL SPRAY 16 GM (FLONASE) NARES SCH ×2 (08:40→20:37)
[2021-03-06] MEDS: LACTOBACILLUS ACIDOPHILUS CAP (BACID) PO SCH (08:40)
[2021-03-06] MEDS: DOCUSATE SODIUM 100MG CAPSULE PO SCH ×2 (08:40→20:37)
[2021-03-06] MEDS: ASPIRIN 81MG ENTERIC TABLET PO SCH (08:40)
[2021-03-06] MEDS: oxyBUTYnin 5 MG TAB PO SCH (08:40)
[2021-03-06] MEDS: OMEPRAZOLE 20MG CAP PO SCH (08:40)
[2021-03-06] MEDS: MULTIVITAMINS/MINERALS THERAP 1 TAB PO SCH (08:40)
[2021-03-06] MEDS: lamoTRIgine 100MG TAB PO SCH (08:40)
[2021-03-06] MEDS: LIDOCAINE 5% OINT 30GM TUBE TOP SCH (08:41)
[2021-03-06] MEDS: atenoloL 25 MG TAB PO SCH ×2 (08:41→20:40)
[2021-03-06] MEDS: ANALGESIC BALM CRM 3OZ TOP SCH ×2 (08:42→20:40)
[2021-03-06] MEDS: **NOTE PATIENT COMMENT** MISC XX SCH (08:48)
[2021-03-06] MEDS: BENZONATATE 100MG CAPSULE PO PRN (13:18)
[2021-03-06] MEDS: TAMSULOSIN 0.4 MG CAP PO SCH (17:22)
[2021-03-06 17:39] VITALS: BP 164/81
[2021-03-06] MEDS: LIDOCAINE 5% (LIDODERM) PATCH TD SCH (20:36)
[2021-03-06] MEDS: CYCLOBENZAPRINE 10MG TABLET PO SCH (20:37)
[2021-03-06] MEDS: ATORVASTATIN 20 MG TAB PO SCH (20:37)
[2021-03-06] MEDS: MONTELUKAST 10 MG TAB PO SCH (20:37)
[2021-03-06] MEDS: lamoTRIgine 25MG TAB PO SCH (20:37)
[2021-03-06] MEDS: LORazepam 1 MG TAB PO PRN (23:20)
[2021-03-07] MEDS: LEVOTHYROXINE 100MCG TABLET (0.1MG) PO SCH (06:01)
[2021-03-07] MEDS: ACETAMINOPHEN TAB 650MG DOSE (2X325MG) PO PRN ×2 (06:06→17:59)
[2021-03-07 06:52] VITALS: BP 119/78
[2021-03-07] MEDS: FLUTICASONE PROP 0.05% NASAL SPRAY 16 GM (FLONASE) NARES SCH ×2 (08:22→20:08)
[2021-03-07] MEDS: lamoTRIgine 100MG TAB PO SCH (08:23)
[2021-03-07] MEDS: BENZTROPINE 2 MG TAB PO SCH ×2 (08:23→20:09)
[2021-03-07] MEDS: metFORMIN (GLUCOPHAGE) 1000 MG TABLET PO SCH ×2 (08:23→17:12)
[2021-03-07] MEDS: oxyBUTYnin 5 MG TAB PO SCH (08:23)
[2021-03-07] MEDS: OMEGA-3 1000MG CAPSULE PO SCH (08:23)
[2021-03-07] MEDS: LACTOBACILLUS ACIDOPHILUS CAP (BACID) PO SCH (08:24)
[2021-03-07] MEDS: MULTIVITAMINS/MINERALS THERAP 1 TAB PO SCH (08:24)
[2021-03-07] MEDS: DOCUSATE SODIUM 100MG CAPSULE PO SCH ×2 (08:24→20:09)
[2021-03-07] MEDS: ASPIRIN 81MG ENTERIC TABLET PO SCH (08:24)
[2021-03-07] MEDS: OMEPRAZOLE 20MG CAP PO SCH (08:24)
[2021-03-07] MEDS: BENZONATATE 100MG CAPSULE PO PRN ×2 (08:26→17:59)
[2021-03-07] MEDS: atenoloL 25 MG TAB PO SCH ×2 (09:00→20:09)
[2021-03-07] MEDS: LIDOCAINE 5% OINT 30GM TUBE TOP SCH (09:06)
[2021-03-07] MEDS: **NOTE PATIENT COMMENT** MISC XX SCH (09:06)
[2021-03-07] MEDS: ANALGESIC BALM CRM 3OZ TOP SCH ×2 (09:33→20:11)
[2021-03-07] MEDS: LORazepam 1 MG TAB PO PRN (14:18)
[2021-03-07] MEDS: TAMSULOSIN 0.4 MG CAP PO SCH (17:12)
[2021-03-07 17:57] VITALS: BP 148/88
[2021-03-07] MEDS: lamoTRIgine 25MG TAB PO SCH (20:09)
[2021-03-07] MEDS: MONTELUKAST 10 MG TAB PO SCH (20:09)
[2021-03-07] MEDS: CYCLOBENZAPRINE 10MG TABLET PO SCH (20:09)
[2021-03-07] MEDS: LIDOCAINE 5% (LIDODERM) PATCH TD SCH (20:10)
[2021-03-07] MEDS: ATORVASTATIN 20 MG TAB PO SCH (20:10)
[2021-03-07] MEDS: guaiFENesin DM *SUGAR FREE* 5ML**DIABETIC TUSSIN DM PO PRN (22:33)
[2021-03-08] MEDS: ACETAMINOPHEN TAB 650MG DOSE (2X325MG) PO PRN ×2 (00:02→19:33)
[2021-03-08] MEDS: LEVOTHYROXINE 100MCG TABLET (0.1MG) PO SCH (05:55)
[2021-03-08 06:37] VITALS: BP 158/96
[2021-03-08] MEDS: BENZONATATE 100MG CAPSULE PO PRN ×2 (06:39→11:47)
[2021-03-08] MEDS: metFORMIN (GLUCOPHAGE) 1000 MG TABLET PO SCH ×2 (07:42→17:02)
[2021-03-08] MEDS: OMEPRAZOLE 20MG CAP PO SCH (08:29)
[2021-03-08] MEDS: ASPIRIN 81MG ENTERIC TABLET PO SCH (08:29)
[2021-03-08] MEDS: FLUTICASONE PROP 0.05% NASAL SPRAY 16 GM (FLONASE) NARES SCH ×2 (08:29→20:16)
[2021-03-08] MEDS: LACTOBACILLUS ACIDOPHILUS CAP (BACID) PO SCH (08:29)
[2021-03-08] MEDS: oxyBUTYnin 5 MG TAB PO SCH (08:29)
[2021-03-08] MEDS: MULTIVITAMINS/MINERALS THERAP 1 TAB PO SCH (08:29)
[2021-03-08] MEDS: DOCUSATE SODIUM 100MG CAPSULE PO SCH ×2 (08:29→20:16)
[2021-03-08] MEDS: OMEGA-3 1000MG CAPSULE PO SCH (08:29)
[2021-03-08] MEDS: lamoTRIgine 100MG TAB PO SCH (08:30)
[2021-03-08] MEDS: BENZTROPINE 2 MG TAB PO SCH ×2 (08:30→20:17)
[2021-03-08] MEDS: atenoloL 25 MG TAB PO SCH ×2 (08:30→20:17)
[2021-03-08] MEDS: ANALGESIC BALM CRM 3OZ TOP SCH ×2 (08:38→20:16)
[2021-03-08] MEDS: **NOTE PATIENT COMMENT** MISC XX SCH (08:38)
[2021-03-08] MEDS: LIDOCAINE 5% OINT 30GM TUBE TOP SCH (08:39)
[2021-03-08] MEDS: guaiFENesin DM *SUGAR FREE* 5ML**DIABETIC TUSSIN DM PO PRN (16:12)
[2021-03-08] MEDS: TAMSULOSIN 0.4 MG CAP PO SCH (17:02)
[2021-03-08 19:09] VITALS: BP 140/68
[2021-03-08] MEDS: LIDOCAINE 5% (LIDODERM) PATCH TD SCH (20:15)
[2021-03-08] MEDS: MONTELUKAST 10 MG TAB PO SCH (20:16)
[2021-03-08] MEDS: CYCLOBENZAPRINE 10MG TABLET PO SCH (20:16)
[2021-03-08] MEDS: ATORVASTATIN 20 MG TAB PO SCH (20:16)
[2021-03-08] MEDS: lamoTRIgine 25MG TAB PO SCH (20:17)
[2021-03-09] MEDS: ACETAMINOPHEN TAB 650MG DOSE (2X325MG) PO PRN ×3 (00:37→21:24)
[2021-03-09] MEDS: LORazepam 1 MG TAB PO PRN (00:40)
[2021-03-09] MEDS: LEVOTHYROXINE 100MCG TABLET (0.1MG) PO SCH (05:55)
[2021-03-09] MEDS: IBUPROFEN 400MG TAB PO PRN ×3 (05:57→23:24)
[2021-03-09 06:47] VITALS: BP 150/82
[2021-03-09] MEDS: metFORMIN (GLUCOPHAGE) 1000 MG TABLET PO SCH ×2 (08:57→18:06)
[2021-03-09] MEDS: BENZONATATE 100MG CAPSULE PO PRN ×2 (09:19→23:37)
[2021-03-09] MEDS: LACTOBACILLUS ACIDOPHILUS CAP (BACID) PO SCH (09:19)
[2021-03-09] MEDS: atenoloL 25 MG TAB PO SCH ×2 (09:20→20:58)
[2021-03-09] MEDS: DOCUSATE SODIUM 100MG CAPSULE PO SCH ×2 (09:21→20:57)
[2021-03-09] MEDS: MULTIVITAMINS/MINERALS THERAP 1 TAB PO SCH (09:21)
[2021-03-09] MEDS: ASPIRIN 81MG ENTERIC TABLET PO SCH (09:21)
[2021-03-09] MEDS: OMEGA-3 1000MG CAPSULE PO SCH (09:21)
[2021-03-09] MEDS: oxyBUTYnin 5 MG TAB PO SCH (09:21)
[2021-03-09] MEDS: OMEPRAZOLE 20MG CAP PO SCH (09:21)
[2021-03-09] MEDS: BENZTROPINE 2 MG TAB PO SCH ×2 (09:21→20:58)
[2021-03-09] MEDS: ANALGESIC BALM CRM 3OZ TOP SCH ×2 (09:22→20:56)
[2021-03-09] MEDS: lamoTRIgine 100MG TAB PO SCH (09:22)
[2021-03-09] MEDS: FLUTICASONE PROP 0.05% NASAL SPRAY 16 GM (FLONASE) NARES SCH ×2 (09:22→20:57)
[2021-03-09] MEDS: LIDOCAINE 5% OINT 30GM TUBE TOP SCH (09:23)
[2021-03-09] MEDS: **NOTE PATIENT COMMENT** MISC XX SCH (09:27)
[2021-03-09] MEDS: guaiFENesin DM *SUGAR FREE* 5ML**DIABETIC TUSSIN DM PO PRN (12:15)
[2021-03-09] MEDS: TAMSULOSIN 0.4 MG CAP PO SCH (18:06)
[2021-03-09 18:53] VITALS: BP 139/81
[2021-03-09] MEDS: lamoTRIgine 25MG TAB PO SCH (20:57)
[2021-03-09] MEDS: CYCLOBENZAPRINE 10MG TABLET PO SCH (20:57)
[2021-03-09] MEDS: ATORVASTATIN 20 MG TAB PO SCH (20:57)
[2021-03-09] MEDS: LIDOCAINE 5% (LIDODERM) PATCH TD SCH (20:57)
[2021-03-09] MEDS: MONTELUKAST 10 MG TAB PO SCH (20:58)
[2021-03-10] MEDS: guaiFENesin DM *SUGAR FREE* 5ML**DIABETIC TUSSIN DM PO PRN ×2 (04:48→15:08)
[2021-03-10] MEDS: LEVOTHYROXINE 100MCG TABLET (0.1MG) PO SCH (05:33)
[2021-03-10 06:42] VITALS: BP 146/102
[2021-03-10] MEDS ORDERED: HALO10TA20 PO (08:12)
[2021-03-10] MEDS ORDERED: LORA1TAB4 PO (08:12)
[2021-03-10] MEDS ORDERED: MUSCCRE9 TOP (08:12)
[2021-03-10] MEDS ORDERED: LAMI25TA PO (08:12)
[2021-03-10] MEDS ORDERED: LIDO5TD TD (08:12)
[2021-03-10] MEDS ORDERED: HALO10AM INJ (08:12)
[2021-03-10] MEDS ORDERED: RISATAB3 PO (08:12)
[2021-03-10] MEDS ORDERED: LIDO5OIN19 TOP (08:12)
[2021-03-10] MEDS ORDERED: LAMO200T3 PO (08:12)
[2021-03-10] MEDS ORDERED: BENZ-18 PO (08:12)
[2021-03-10] MEDS ORDERED: ATEN25TA PO (08:12)
[2021-03-10] MEDS ORDERED: MAGICMW SSP (08:12)
[2021-03-10] MEDS: **NOTE PATIENT COMMENT** MISC XX SCH (09:00)
[2021-03-10] MEDS ORDERED: LORazepam 1 MG TAB PO SCH (09:00)
[2021-03-10] MEDS: atenoloL 25 MG TAB PO SCH ×2 (09:06→20:40)
[2021-03-10] MEDS: LACTOBACILLUS ACIDOPHILUS CAP (BACID) PO SCH (09:06)
[2021-03-10] MEDS: lamoTRIgine 100MG TAB PO SCH ×2 (09:06→20:40)
[2021-03-10] MEDS: MULTIVITAMINS/MINERALS THERAP 1 TAB PO SCH (09:06)
[2021-03-10] MEDS: DOCUSATE SODIUM 100MG CAPSULE PO SCH ×2 (09:06→20:39)
[2021-03-10] MEDS: OMEGA-3 1000MG CAPSULE PO SCH (09:06)
[2021-03-10] MEDS: OMEPRAZOLE 20MG CAP PO SCH (09:06)
[2021-03-10] MEDS: oxyBUTYnin 5 MG TAB PO SCH (09:07)
[2021-03-10] MEDS: ASPIRIN 81MG ENTERIC TABLET PO SCH (09:07)
[2021-03-10] MEDS: metFORMIN (GLUCOPHAGE) 1000 MG TABLET PO SCH ×2 (09:07→17:05)
[2021-03-10] MEDS: BENZTROPINE 2 MG TAB PO SCH ×2 (09:08→20:40)
[2021-03-10] MEDS: FLUTICASONE PROP 0.05% NASAL SPRAY 16 GM (FLONASE) NARES SCH ×2 (09:08→20:38)
[2021-03-10] MEDS: ANALGESIC BALM CRM 3OZ TOP SCH ×2 (09:09→20:37)
[2021-03-10] MEDS: LIDOCAINE 5% OINT 30GM TUBE TOP SCH (09:10)
[2021-03-10 16:15] VITALS: BP 163/94
[2021-03-10] MEDS: TAMSULOSIN 0.4 MG CAP PO SCH (17:06)
[2021-03-10] MEDS: LIDOCAINE 5% (LIDODERM) PATCH TD SCH (20:37)
[2021-03-10] MEDS: MONTELUKAST 10 MG TAB PO SCH (20:39)
[2021-03-10] MEDS: LORazepam 2 MG TAB PO SCH (20:39)
[2021-03-10] MEDS: CYCLOBENZAPRINE 10MG TABLET PO SCH (20:40)
[2021-03-10] MEDS: ATORVASTATIN 20 MG TAB PO SCH (20:40)
[2021-03-10] MEDS: IBUPROFEN 400MG TAB PO PRN (21:05)
[2021-03-11] MEDS: LEVOTHYROXINE 100MCG TABLET (0.1MG) PO SCH (06:16)
[2021-03-11] MEDS: guaiFENesin DM *SUGAR FREE* 5ML**DIABETIC TUSSIN DM PO PRN ×2 (06:23→15:47)
[2021-03-11 06:30] VITALS: BP 158/96
[2021-03-11] MEDS: ACETAMINOPHEN TAB 650MG DOSE (2X325MG) PO PRN (08:15)
[2021-03-11] MEDS: metFORMIN (GLUCOPHAGE) 1000 MG TABLET PO SCH ×2 (08:15→17:41)
[2021-03-11] MEDS: LACTOBACILLUS ACIDOPHILUS CAP (BACID) PO SCH (08:16)
[2021-03-11] MEDS: DOCUSATE SODIUM 100MG CAPSULE PO SCH ×2 (08:16→22:07)
[2021-03-11] MEDS: ASPIRIN 81MG ENTERIC TABLET PO SCH (08:16)
[2021-03-11] MEDS: LORazepam 2 MG TAB PO SCH ×2 (08:16→22:07)
[2021-03-11] MEDS: MULTIVITAMINS/MINERALS THERAP 1 TAB PO SCH (08:17)
[2021-03-11] MEDS: BENZTROPINE 2 MG TAB PO SCH ×2 (08:17→22:06)
[2021-03-11] MEDS: lamoTRIgine 100MG TAB PO SCH ×2 (08:17→22:06)
[2021-03-11] MEDS: atenoloL 25 MG TAB PO SCH ×2 (08:17→22:06)
[2021-03-11] MEDS: OMEPRAZOLE 20MG CAP PO SCH (08:18)
[2021-03-11] MEDS: FLUTICASONE PROP 0.05% NASAL SPRAY 16 GM (FLONASE) NARES SCH ×2 (08:18→22:04)
[2021-03-11] MEDS: oxyBUTYnin 5 MG TAB PO SCH (08:18)
[2021-03-11] MEDS: OMEGA-3 1000MG CAPSULE PO SCH (08:18)
[2021-03-11] MEDS: ANALGESIC BALM CRM 3OZ TOP SCH ×2 (08:19→22:05)
[2021-03-11] MEDS: BENZONATATE 100MG CAPSULE PO PRN (09:18)
[2021-03-11] MEDS: **NOTE PATIENT COMMENT** MISC XX SCH (09:22)
[2021-03-11] MEDS: IBUPROFEN 400MG TAB PO PRN (11:56)
[2021-03-11] MEDS: LIDOCAINE 5% OINT 30GM TUBE TOP SCH (13:00)
[2021-03-11 17:27] VITALS: BP 166/86
[2021-03-11] MEDS: TAMSULOSIN 0.4 MG CAP PO SCH (17:41)
[2021-03-11] MEDS: LIDOCAINE 5% (LIDODERM) PATCH TD SCH (22:04)
[2021-03-11] MEDS: ATORVASTATIN 20 MG TAB PO SCH (22:06)
[2021-03-11] MEDS: MONTELUKAST 10 MG TAB PO SCH (22:07)
[2021-03-11] MEDS: CYCLOBENZAPRINE 10MG TABLET PO SCH (22:07)
[2021-03-12] MEDS: IBUPROFEN 400MG TAB PO PRN ×2 (03:18→20:51)
[2021-03-12] MEDS: LEVOTHYROXINE 100MCG TABLET (0.1MG) PO SCH (06:14)
[2021-03-12 06:27] VITALS: BP 142/96
[2021-03-12] MEDS: LACTOBACILLUS ACIDOPHILUS CAP (BACID) PO SCH (08:56)
[2021-03-12] MEDS: LORazepam 2 MG TAB PO SCH ×2 (08:56→20:09)
[2021-03-12] MEDS: OMEPRAZOLE 20MG CAP PO SCH (08:56)
[2021-03-12] MEDS: oxyBUTYnin 5 MG TAB PO SCH (08:57)
[2021-03-12] MEDS: lamoTRIgine 100MG TAB PO SCH ×2 (08:57→20:10)
[2021-03-12] MEDS: DOCUSATE SODIUM 100MG CAPSULE PO SCH ×2 (08:57→20:09)
[2021-03-12] MEDS: BENZTROPINE 2 MG TAB PO SCH ×2 (08:57→20:09)
[2021-03-12] MEDS: MULTIVITAMINS/MINERALS THERAP 1 TAB PO SCH (08:58)
[2021-03-12] MEDS: ASPIRIN 81MG ENTERIC TABLET PO SCH (08:59)
[2021-03-12] MEDS: metFORMIN (GLUCOPHAGE) 1000 MG TABLET PO SCH ×2 (08:59→17:35)
[2021-03-12] MEDS: atenoloL 25 MG TAB PO SCH ×2 (08:59→20:10)
[2021-03-12] MEDS: OMEGA-3 1000MG CAPSULE PO SCH (08:59)
[2021-03-12] MEDS: LIDOCAINE 5% OINT 30GM TUBE TOP SCH (09:00)
[2021-03-12] MEDS: FLUTICASONE PROP 0.05% NASAL SPRAY 16 GM (FLONASE) NARES SCH ×2 (09:00→20:08)
[2021-03-12] MEDS: ANALGESIC BALM CRM 3OZ TOP SCH ×2 (09:01→20:09)
[2021-03-12] MEDS: **NOTE PATIENT COMMENT** MISC XX SCH (09:02)
[2021-03-12] MEDS: BENZONATATE 100MG CAPSULE PO PRN ×2 (13:28→20:08)
[2021-03-12] MEDS: guaiFENesin DM *SUGAR FREE* 5ML**DIABETIC TUSSIN DM PO PRN ×2 (15:50→22:43)
[2021-03-12 17:31] VITALS: BP 139/88
[2021-03-12] MEDS: TAMSULOSIN 0.4 MG CAP PO SCH (17:36)
[2021-03-12] MEDS: LIDOCAINE 5% (LIDODERM) PATCH TD SCH (20:08)
[2021-03-12] MEDS: ATORVASTATIN 20 MG TAB PO SCH (20:09)
[2021-03-12] MEDS: CYCLOBENZAPRINE 10MG TABLET PO SCH (20:09)
[2021-03-12] MEDS: MONTELUKAST 10 MG TAB PO SCH (20:10)
[2021-03-12] MEDS: traZODone 50 MG TAB PO PRN (23:47)
[2021-03-13] MEDS: LEVOTHYROXINE 100MCG TABLET (0.1MG) PO SCH (06:02)
[2021-03-13 06:33] VITALS: BP 168/94
[2021-03-13] MEDS: metFORMIN (GLUCOPHAGE) 1000 MG TABLET PO SCH ×2 (07:48→18:15)
[2021-03-13] MEDS: LIDOCAINE 5% OINT 30GM TUBE TOP SCH (08:08)
[2021-03-13] MEDS: ANALGESIC BALM CRM 3OZ TOP SCH ×2 (08:08→21:03)
[2021-03-13] MEDS: atenoloL 25 MG TAB PO SCH ×2 (08:09→21:04)
[2021-03-13] MEDS: FLUTICASONE PROP 0.05% NASAL SPRAY 16 GM (FLONASE) NARES SCH ×2 (08:09→21:03)
[2021-03-13] MEDS: BENZTROPINE 2 MG TAB PO SCH ×2 (08:09→21:04)
[2021-03-13] MEDS: lamoTRIgine 100MG TAB PO SCH ×2 (08:10→21:05)
[2021-03-13] MEDS: LACTOBACILLUS ACIDOPHILUS CAP (BACID) PO SCH (08:10)
[2021-03-13] MEDS: **NOTE PATIENT COMMENT** MISC XX SCH (08:10)
[2021-03-13] MEDS: MULTIVITAMINS/MINERALS THERAP 1 TAB PO SCH (08:10)
[2021-03-13] MEDS: OMEGA-3 1000MG CAPSULE PO SCH (08:10)
[2021-03-13] MEDS: oxyBUTYnin 5 MG TAB PO SCH (08:10)
[2021-03-13] MEDS: ASPIRIN 81MG ENTERIC TABLET PO SCH (08:10)
[2021-03-13] MEDS: DOCUSATE SODIUM 100MG CAPSULE PO SCH ×2 (08:10→21:05)
[2021-03-13] MEDS: LORazepam 2 MG TAB PO SCH ×2 (08:10→21:04)
[2021-03-13] MEDS: OMEPRAZOLE 20MG CAP PO SCH (08:13)
[2021-03-13] MEDS: ALBUTEROL 90 MCG/ACT 8GM HFA INHALER INH PRN (09:22)
[2021-03-13] MEDS: BENZONATATE 100MG CAPSULE PO PRN (09:22)
[2021-03-13] MEDS: guaiFENesin DM *SUGAR FREE* 5ML**DIABETIC TUSSIN DM PO PRN (11:47)
[2021-03-13] MEDS: TAMSULOSIN 0.4 MG CAP PO SCH (18:15)
[2021-03-13 18:23] VITALS: BP 160/80
[2021-03-13] MEDS: LIDOCAINE 5% (LIDODERM) PATCH TD SCH (21:03)
[2021-03-13] MEDS: CYCLOBENZAPRINE 10MG TABLET PO SCH (21:04)
[2021-03-13] MEDS: MONTELUKAST 10 MG TAB PO SCH (21:04)
[2021-03-13] MEDS: ATORVASTATIN 20 MG TAB PO SCH (21:05)
[2021-03-14 06:46] VITALS: BP 168/86
[2021-03-14] MEDS: LEVOTHYROXINE 100MCG TABLET (0.1MG) PO SCH (07:01)
[2021-03-14] MEDS: LORazepam 2 MG TAB PO SCH ×2 (08:35→21:55)
[2021-03-14] MEDS: DOCUSATE SODIUM 100MG CAPSULE PO SCH ×2 (08:35→21:55)
[2021-03-14] MEDS: LACTOBACILLUS ACIDOPHILUS CAP (BACID) PO SCH (08:35)
[2021-03-14] MEDS: atenoloL 25 MG TAB PO SCH ×2 (08:35→21:55)
[2021-03-14] MEDS: MULTIVITAMINS/MINERALS THERAP 1 TAB PO SCH (08:35)
[2021-03-14] MEDS: metFORMIN (GLUCOPHAGE) 1000 MG TABLET PO SCH ×2 (08:36→17:21)
[2021-03-14] MEDS: ASPIRIN 81MG ENTERIC TABLET PO SCH (08:36)
[2021-03-14] MEDS: ANALGESIC BALM CRM 3OZ TOP SCH ×2 (08:36→21:49)
[2021-03-14] MEDS: LIDOCAINE 5% OINT 30GM TUBE TOP SCH (08:36)
[2021-03-14] MEDS: lamoTRIgine 100MG TAB PO SCH ×2 (08:36→21:56)
[2021-03-14] MEDS: OMEPRAZOLE 20MG CAP PO SCH (08:36)
[2021-03-14] MEDS: BENZTROPINE 2 MG TAB PO SCH ×2 (08:36→21:55)
[2021-03-14] MEDS: oxyBUTYnin 5 MG TAB PO SCH (08:37)
[2021-03-14] MEDS: FLUTICASONE PROP 0.05% NASAL SPRAY 16 GM (FLONASE) NARES SCH ×2 (08:37→21:49)
[2021-03-14] MEDS: **NOTE PATIENT COMMENT** MISC XX SCH (08:37)
[2021-03-14] MEDS: OMEGA-3 1000MG CAPSULE PO SCH (08:37)
[2021-03-14] MEDS: guaiFENesin DM *SUGAR FREE* 5ML**DIABETIC TUSSIN DM PO PRN ×2 (12:05→18:57)
[2021-03-14] MEDS: BENZONATATE 100MG CAPSULE PO PRN (14:52)
[2021-03-14 16:04] VITALS: BP 151/88
[2021-03-14] MEDS: TAMSULOSIN 0.4 MG CAP PO SCH (17:22)
[2021-03-14] MEDS: LIDOCAINE 5% (LIDODERM) PATCH TD SCH (21:48)
[2021-03-14] MEDS: ATORVASTATIN 20 MG TAB PO SCH (21:55)
[2021-03-14] MEDS: MONTELUKAST 10 MG TAB PO SCH (21:55)
[2021-03-14] MEDS: CYCLOBENZAPRINE 10MG TABLET PO SCH (21:55)
[2021-03-15] MEDS: guaiFENesin DM *SUGAR FREE* 5ML**DIABETIC TUSSIN DM PO PRN ×2 (02:22→21:42)
[2021-03-15] MEDS: LEVOTHYROXINE 100MCG TABLET (0.1MG) PO SCH (06:23)
[2021-03-15 06:35] VITALS: BP 154/90
[2021-03-15] MEDS: LORazepam 2 MG TAB PO SCH ×2 (08:27→20:22)
[2021-03-15] MEDS: atenoloL 25 MG TAB PO SCH ×2 (08:27→20:23)
[2021-03-15] MEDS: DOCUSATE SODIUM 100MG CAPSULE PO SCH ×2 (08:27→20:22)
[2021-03-15] MEDS: ASPIRIN 81MG ENTERIC TABLET PO SCH (08:27)
[2021-03-15] MEDS: metFORMIN (GLUCOPHAGE) 1000 MG TABLET PO SCH ×2 (08:27→17:34)
[2021-03-15] MEDS: ANALGESIC BALM CRM 3OZ TOP SCH ×2 (08:27→20:21)
[2021-03-15] MEDS: OMEPRAZOLE 20MG CAP PO SCH (08:27)
[2021-03-15] MEDS: LIDOCAINE 5% OINT 30GM TUBE TOP SCH (08:27)
[2021-03-15] MEDS: FLUTICASONE PROP 0.05% NASAL SPRAY 16 GM (FLONASE) NARES SCH ×2 (08:27→20:22)
[2021-03-15] MEDS: BENZTROPINE 2 MG TAB PO SCH ×2 (08:28→20:22)
[2021-03-15] MEDS: MULTIVITAMINS/MINERALS THERAP 1 TAB PO SCH (08:28)
[2021-03-15] MEDS: OMEGA-3 1000MG CAPSULE PO SCH (08:28)
[2021-03-15] MEDS: lamoTRIgine 100MG TAB PO SCH ×2 (08:28→20:22)
[2021-03-15] MEDS: LACTOBACILLUS ACIDOPHILUS CAP (BACID) PO SCH (08:28)
[2021-03-15] MEDS: oxyBUTYnin 5 MG TAB PO SCH (08:28)
[2021-03-15] MEDS: IBUPROFEN 400MG TAB PO PRN ×2 (08:29→21:12)
[2021-03-15] MEDS: **NOTE PATIENT COMMENT** MISC XX SCH (08:31)
[2021-03-15] MEDS: BENZONATATE 100MG CAPSULE PO PRN (11:51)
[2021-03-15 16:10] VITALS: BP 137/73
[2021-03-15] MEDS: TAMSULOSIN 0.4 MG CAP PO SCH (17:34)
[2021-03-15] MEDS: CYCLOBENZAPRINE 10MG TABLET PO SCH (20:22)
[2021-03-15] MEDS: LIDOCAINE 5% (LIDODERM) PATCH TD SCH (20:22)
[2021-03-15] MEDS: MONTELUKAST 10 MG TAB PO SCH (20:22)
[2021-03-15] MEDS: ATORVASTATIN 20 MG TAB PO SCH (20:23)
[2021-03-16] MEDS: LEVOTHYROXINE 100MCG TABLET (0.1MG) PO SCH (06:08)
[2021-03-16 06:30] VITALS: BP 135/65
[2021-03-16] MEDS: FLUTICASONE PROP 0.05% NASAL SPRAY 16 GM (FLONASE) NARES SCH ×2 (08:27→21:01)
[2021-03-16] MEDS: lamoTRIgine 100MG TAB PO SCH ×2 (08:27→20:59)
[2021-03-16] MEDS: ANALGESIC BALM CRM 3OZ TOP SCH ×2 (08:27→21:02)
[2021-03-16] MEDS: LIDOCAINE 5% OINT 30GM TUBE TOP SCH (08:27)
[2021-03-16] MEDS: LACTOBACILLUS ACIDOPHILUS CAP (BACID) PO SCH (08:28)
[2021-03-16] MEDS: OMEGA-3 1000MG CAPSULE PO SCH (08:29)
[2021-03-16] MEDS: LORazepam 2 MG TAB PO SCH ×2 (08:29→21:00)
[2021-03-16] MEDS: ASPIRIN 81MG ENTERIC TABLET PO SCH (08:29)
[2021-03-16] MEDS: MULTIVITAMINS/MINERALS THERAP 1 TAB PO SCH (08:29)
[2021-03-16] MEDS: oxyBUTYnin 5 MG TAB PO SCH (08:29)
[2021-03-16] MEDS: BENZTROPINE 2 MG TAB PO SCH ×2 (08:29→20:59)
[2021-03-16] MEDS: OMEPRAZOLE 20MG CAP PO SCH (08:29)
[2021-03-16] MEDS: metFORMIN (GLUCOPHAGE) 1000 MG TABLET PO SCH ×2 (08:29→17:11)
[2021-03-16] MEDS: DOCUSATE SODIUM 100MG CAPSULE PO SCH ×2 (08:29→21:00)
[2021-03-16] MEDS: atenoloL 25 MG TAB PO SCH ×2 (08:30→20:59)
[2021-03-16] MEDS: **NOTE PATIENT COMMENT** MISC XX SCH (08:30)
[2021-03-16 16:26] VITALS: BP_SYST 137; BP_SYST 141; BP_DIAS 84; BP_DIAS 85
[2021-03-16] MEDS: TAMSULOSIN 0.4 MG CAP PO SCH (17:11)
[2021-03-16] MEDS: IBUPROFEN 400MG TAB PO PRN (18:29)
[2021-03-16] MEDS: CYCLOBENZAPRINE 10MG TABLET PO SCH (20:59)
[2021-03-16] MEDS: MONTELUKAST 10 MG TAB PO SCH (20:59)
[2021-03-16] MEDS: ATORVASTATIN 20 MG TAB PO SCH (21:00)
[2021-03-16] MEDS: LIDOCAINE 5% (LIDODERM) PATCH TD SCH (21:00)
[2021-03-17] MEDS: ACETAMINOPHEN TAB 650MG DOSE (2X325MG) PO PRN (00:04)
[2021-03-17] MEDS: LEVOTHYROXINE 100MCG TABLET (0.1MG) PO SCH (06:06)
[2021-03-17 06:36] VITALS: BP 123/66
[2021-03-17] MEDS: BENZONATATE 100MG CAPSULE PO PRN (08:50)
[2021-03-17] MEDS: OMEGA-3 1000MG CAPSULE PO SCH (08:50)
[2021-03-17] MEDS: BENZTROPINE 2 MG TAB PO SCH (08:50)
[2021-03-17] MEDS: oxyBUTYnin 5 MG TAB PO SCH (08:50)
[2021-03-17] MEDS: metFORMIN (GLUCOPHAGE) 1000 MG TABLET PO SCH (08:51)
[2021-03-17] MEDS: FLUTICASONE PROP 0.05% NASAL SPRAY 16 GM (FLONASE) NARES SCH (08:51)
[2021-03-17 08:52] VITALS: BP 155/95
[2021-03-17] MEDS: atenoloL 25 MG TAB PO SCH (08:52)
[2021-03-17] MEDS: LORazepam 2 MG TAB PO SCH (08:53)
[2021-03-17] MEDS: ASPIRIN 81MG ENTERIC TABLET PO SCH (08:53)
[2021-03-17] MEDS: lamoTRIgine 100MG TAB PO SCH (08:53)
[2021-03-17] MEDS: OMEPRAZOLE 20MG CAP PO SCH (08:53)
[2021-03-17] MEDS: MULTIVITAMINS/MINERALS THERAP 1 TAB PO SCH (08:53)
[2021-03-17] MEDS: ANALGESIC BALM CRM 3OZ TOP SCH (08:54)
[2021-03-17] MEDS: DOCUSATE SODIUM 100MG CAPSULE PO SCH (08:54)
[2021-03-17] MEDS: LACTOBACILLUS ACIDOPHILUS CAP (BACID) PO SCH (08:54)
[2021-03-17] MEDS: **NOTE PATIENT COMMENT** MISC XX SCH (08:55)
[2021-03-17] MEDS: LIDOCAINE 5% OINT 30GM TUBE TOP SCH (08:55)
[2021-03-17] MEDS: guaiFENesin DM *SUGAR FREE* 5ML**DIABETIC TUSSIN DM PO PRN (12:15)
[2021-03-17] MEDS ORDERED: HALO10TA20 PO (12:36)
[2021-03-17] MEDS ORDERED: LAMO100T80 PO (12:36)
[2021-03-17] MEDS ORDERED: LORA2TA PO (12:36)
[2021-03-17] MEDS ORDERED: HALO5TAB33 PO (14:16)
[2021-03-20] MEDS ORDERED: HALOPERIDOL DECANOATE 100 MG/ML VIAL (J1631) IM SCH (06:00)
== END 2021-03-17 14:10 | disposition home or self-care (01) | DRG 885 ==
LOC: M ED 13:45 → M ED INP 18:33 → M PSY 22:36
PROVIDERS: ADMIT Student in an Organized Health Care Education/Training Program; ATTEND Student in an Organized Health Care Education/Training Program
DX: F25.0 Schizoaffective disorder, bipolar type (principal); Z79.82 Long term (current) use of aspirin; Z79.899 Other long term (current) drug therapy; Z88.0 Allergy status to penicillin; Z91.040 Latex allergy status; Z88.8 Allergy status to other drugs, medicaments and biological substances; I10 Essential (primary) hypertension; I25.10 Atherosclerotic heart disease of native coronary artery without angina pectoris; E78.5 Hyperlipidemia, unspecified; E11.9 Type 2 diabetes mellitus without complications; E03.9 Hypothyroidism, unspecified; F41.9 Anxiety disorder, unspecified; N40.0 Benign prostatic hyperplasia without lower urinary tract symptoms; E55.9 Vitamin D deficiency, unspecified; Z87.891 Personal history of nicotine dependence

== ENCOUNTER 2021-04-07 04:29 | Emergency (ER) | payer MEDICARE, MEDICAID ==
[~2021-04-07] VITALS: Ht 177.8 cm; Wt 11.8 kg
[~2021-04-07 04:29] MED LIST changes: +ACET-910 PO; +ASPI-161 PO; +BENZ-18 PO; +HALO10AM INJ; +LAMI25TA PO; +LAMO100T80 PO; +LIDO5OIN19 TOP; +MAGICMW SSP; +OMEGCAP4 PO; +QUET300T2 PO; +RISATAB3 PO
[2021-04-07] MEDS ORDERED: PRIL20TA2 PO (07:14)
[2021-04-07] MEDS ORDERED: LORA2TAB14 (07:14)
[2021-04-07] MEDS ORDERED: FLUTISP (07:14)
[2021-04-07] MEDS ORDERED: LAMO25TA4 (07:14)
[2021-04-07] MEDS ORDERED: TESS100C PO (08:22)
[2021-04-07 08:38] VITALS: BP 159/91
== END 2021-04-07 08:38 | disposition home or self-care (01) ==
LOC: M ED 04:29
DX: R09.82 Postnasal drip (principal); R05.9 Cough, unspecified; Z88.0 Allergy status to penicillin; Z88.1 Allergy status to other antibiotic agents; Z91.040 Latex allergy status

== ENCOUNTER → 2021-04-25 | Outpatient (CLI) | payer MEDICARE, MEDICAID ==
[~2021-04-25] MED LIST changes: +FLUTISP; +LAMO25TA4; -OMEP-173 PO; +OMEP-218 PO; +PRIL20TA2 PO
[2021-04-25 10:02] LABS: BASO # 0.1 10^3/uL (0.0-0.2); BASO % 0.6 % (0.0-1.0); EOS # 0.4 10^3/uL (0.0-0.5); EOS % 4.3 % (0.0-3.0); LYMPH % 22.6 % (24.0-44.0); MEAN CORPUSCULAR HEMOGLOBIN 26.4 pg (27.0-33.0); MEAN CORPUSCULAR HGB CONC 31.9 g/dl (32.0-36.5); MEAN CORPUSCULAR VOLUME 82.6 fl (80.0-96.0); MONO # 0.7 10^3/uL (0.0-0.8); MONO % 8.2 % (2.0-8.0); NEUTROPHILS # 5.6 10^3/uL (1.5-8.5); NEUTROPHILS % 63.2 % (36.0-66.0); PLATELET COUNT, AUTOMATED 288 10^3/uL (150-450); RED BLOOD COUNT 5.69 10^6/uL (4.30-6.10); WHITE BLOOD COUNT 8.9 10^3/uL (4.0-10.0)
[2021-04-25 10:05] LABS: APPEARANCE, URINE HAZY (CLEAR); BACTERIA, URINE AUTO NEGATIVE (NEGATIVE); BILIRUBIN, URINE AUTO NEGATIVE (NEGATIVE); BLOOD, URINE BLOOD NEGATIVE (NEGATIVE); COLOR, URINE YELLOW (YELLOW); GLUCOSE, URINE (UA) AUTO NEGATIVE (NEGATIVE); KETONE, URINE AUTO NEGATIVE (NEGATIVE); LEUKOCYTE ESTERASE, URINE AUTO NEGATIVE (NEGATIVE); MUCUS, URINE MODERATE (NEGATIVE); NITRITE, URINE AUTO NEGATIVE (NEGATIVE); PROTEIN, URINE AUTO 1+ mg/dL (NEGATIVE); RBC, URINE AUTO 1 /HPF (0-3); SPECIFIC GRAVITY URINE AUTO 1.023 (1.002-1.035); SQUAMOUS EPITHELIAL CELL UR AU 0 /HPF (0-6); UROBILINOGEN, URINE AUTO 0.2 mg/dL (0.0-2.0); WBC, URINE AUTO 2 /HPF (0-3)
[2021-04-25 10:40] LABS: HEMOGLOBIN A1c 7.1 %
[2021-04-25 10:49] LABS: ALBUMIN 3.8 GM/DL (3.2-5.2); ALT/SGPT 51 U/L (12-78); BILIRUBIN,TOTAL 0.3 MG/DL (0.2-1.0); BLOOD UREA NITROGEN 13 MG/DL (7-18); CALCIUM LEVEL 8.7 MG/DL (8.5-10.1); CARBON DIOXIDE LEVEL 32 MEQ/L (21-32); CHLORIDE LEVEL 105 MEQ/L (98-107); CHOLESTEROL LEVEL 229 MG/DL (<200); CHOLESTEROL RISK RATIO 4.673 (<5); CREATININE FOR GFR 0.89 MG/DL (0.70-1.30); GLOMERULAR FILTRATION RATE > 60.0 (>56); GLUCOSE, FASTING 150 MG/DL (70-100); HDL CHOLESTEROL 49 MG/DL (>40); LDL CHOLESTEROL 148 MG/DL (<100); NON-HDL-C 180 MG/DL; POTASSIUM SERUM 3.8 MEQ/L (3.5-5.1); SODIUM LEVEL 141 MEQ/L (136-145); TRIGLYCERIDES LEVEL 159 MG/DL (<150)
== END ==
LOC: M LAB 09:13
PROVIDERS: ATTEND Family Medicine
DX: E11.69 Type 2 diabetes mellitus with other specified complication (principal); E66.9 Obesity, unspecified; I10 Essential (primary) hypertension

== ENCOUNTER 2021-04-29 16:55 | Emergency (ER) | payer MEDICARE, MEDICAID ==
[~2021-04-29] VITALS: Ht 177.8 cm; Wt 115.9 kg
[2021-04-29 17:44] LABS: HEMATOCRIT 43.6 % (42.0-52.0); HEMOGLOBIN 14.4 g/dl (13.5-17.5); MEAN CORPUSCULAR HEMOGLOBIN 27.3 pg (27.0-33.0); MEAN CORPUSCULAR VOLUME 82.6 fl (80.0-96.0); PLATELET COUNT, AUTOMATED 291 10^3/uL (150-450); RED BLOOD COUNT 5.28 10^6/uL (4.30-6.10); WHITE BLOOD COUNT 9.8 10^3/uL (4.0-10.0)
[2021-04-29 18:05] VITALS: BP 192/108
[2021-04-29 19:17] LABS: ACETAMINOPHEN LEVEL < 2.0 UG/ML (10.0-30.0); ALT/SGPT 44 U/L (12-78); BILIRUBIN,DIRECT 0.1 MG/DL (0.0-0.2); BILIRUBIN,TOTAL 0.3 MG/DL (0.2-1.0); BLOOD UREA NITROGEN 12 MG/DL (7-18); CALCIUM LEVEL 8.7 MG/DL (8.5-10.1); CARBON DIOXIDE LEVEL 29 MEQ/L (21-32); CHLORIDE LEVEL 102 MEQ/L (98-107); CREATININE FOR GFR 0.78 MG/DL (0.70-1.30); ETHYL ALCOHOL (ETHANOL) < 0.003 % (0.000-0.010); GLOMERULAR FILTRATION RATE > 60.0 (>56); GLUCOSE, FASTING 125 MG/DL (70-100); POTASSIUM SERUM 3.7 MEQ/L (3.5-5.1); SALICYLATE LEVEL < 1.7 MG/DL (5.0-30.0); SODIUM LEVEL 140 MEQ/L (136-145); TOTAL PROTEIN 7.3 GM/DL (6.4-8.2)
[2021-04-29 20:13] LABS: AMPHETAMINES LEVEL URINE NEGATIVE (NEGATIVE); BARBITURATES URINE NEGATIVE (NEGATIVE); BENZODIAZEPINES URINE NEGATIVE (NEGATIVE); CANNABINOIDS URINE NEGATIVE (NEGATIVE); COCAINE METABOLITE URINE NEGATIVE (NEGATIVE); METHADONE URINE NEGATIVE (NEGATIVE); OPIATES URINE NEGATIVE (NEGATIVE); PHENCYCLIDINE URINE NEGATIVE (NEGATIVE)
[2021-04-29] MEDS ORDERED: atenoloL 50 MG TAB PO ONE (23:20)
[2021-04-29] MEDS ORDERED: BENZTROPINE 2 MG TAB PO ONE (23:20)
[2021-04-29] MEDS ORDERED: traZODone 50 MG TAB PO ONE (23:20)
[2021-04-30 00:42] VITALS: BP 192/103
== END 2021-04-30 01:57 | disposition home or self-care (01) ==
LOC: M ED 16:55
DX: F25.9 Schizoaffective disorder, unspecified (principal); F31.9 Bipolar disorder, unspecified; J45.909 Unspecified asthma, uncomplicated; Z88.0 Allergy status to penicillin; Z88.1 Allergy status to other antibiotic agents; Z91.040 Latex allergy status; Z86.79 Personal history of other diseases of the circulatory system

== ENCOUNTER → 2021-07-01 | Outpatient (CLI) | payer MEDICARE, MEDICAID ==
[~2021-07-01] MED LIST changes: +OMEP-173 PO; -OMEP-218 PO
[2021-07-01 09:13] LABS: BASO # 0.1 10^3/uL (0.0-0.2); BASO % 0.6 % (0.0-1.0); EOS # 0.4 10^3/uL (0.0-0.5); HEMATOCRIT 44.3 % (42.0-52.0); HEMOGLOBIN 14.8 g/dl (13.5-17.5); MEAN CORPUSCULAR HEMOGLOBIN 26.8 pg (27.0-33.0); MEAN CORPUSCULAR HGB CONC 33.4 g/dl (32.0-36.5); MEAN CORPUSCULAR VOLUME 80.3 fl (80.0-96.0); MONO # 0.8 10^3/uL (0.0-0.8); MONO % 9.3 % (2.0-8.0); NEUTROPHILS # 5.4 10^3/uL (1.5-8.5); NEUTROPHILS % 61.1 % (36.0-66.0); PLATELET COUNT, AUTOMATED 253 10^3/uL (150-450); RED BLOOD COUNT 5.52 10^6/uL (4.30-6.10); WHITE BLOOD COUNT 8.8 10^3/uL (4.0-10.0)
[2021-07-01 09:44] LABS: ALBUMIN 3.9 GM/DL (3.2-5.2); ALT/SGPT 44 U/L (12-78); BILIRUBIN,TOTAL 0.5 MG/DL (0.2-1.0); BLOOD UREA NITROGEN 14 MG/DL (7-18); CALCIUM LEVEL 9.1 MG/DL (8.5-10.1); CARBON DIOXIDE LEVEL 31 MEQ/L (21-32); CHLORIDE LEVEL 103 MEQ/L (98-107); CHOLESTEROL LEVEL 140 MG/DL (<200); CHOLESTEROL RISK RATIO 3.333 (<5); CREATININE FOR GFR 0.86 MG/DL (0.70-1.30); FREE T4 1.21 NG/DL (0.76-1.46); GLOMERULAR FILTRATION RATE > 60.0 (>56); GLUCOSE, FASTING 127 MG/DL (70-100); HDL CHOLESTEROL 42 MG/DL (>40); LDL CHOLESTEROL 61 MG/DL (<100); NON-HDL-C 98 MG/DL; POTASSIUM SERUM 3.8 MEQ/L (3.5-5.1); SODIUM LEVEL 141 MEQ/L (136-145); TOTAL PROTEIN 6.8 GM/DL (6.4-8.2); TRIGLYCERIDES LEVEL 186 MG/DL (<150)
[2021-07-01 10:30] LABS: HEMOGLOBIN A1c 7.3 %
[2021-07-04 03:09] LABS: Alkaline Phosphatase Iso-Bone 21 % (12-68); Alkaline Phosphatase Iso-Intes 3 % (0-18); Alkaline Phosphatase Iso-Liver 76 % (13-88); TOTAL ALK PHOS 143 IU/L (44-121)
== END ==
LOC: M LAB 08:23
PROVIDERS: ATTEND Nurse Practitioner Family
DX: E11.69 Type 2 diabetes mellitus with other specified complication (principal); E66.9 Obesity, unspecified; I10 Essential (primary) hypertension; R74.8 Abnormal levels of other serum enzymes; E78.00 Pure hypercholesterolemia, unspecified; Z09 Encounter for follow-up examination after completed treatment for conditions other than malignant neoplasm; E03.9 Hypothyroidism, unspecified

== ENCOUNTER 2021-07-07 14:54 | Emergency (ER) | payer MEDICARE, MEDICAID ==
[~2021-07-07] VITALS: Ht 177.8 cm; Wt 115.5 kg
[2021-07-07 16:15] LABS: VENOUS BASE EXCESS 2.8 (-2.0-2.0); VENOUS HCO3 27.9 MEQ/L (23.0-27.0); VENOUS O2 SATURATION 92.1 % (60.0-80.0); VENOUS PARTIAL PRESSURE CO2 44.4 mmHg (38.0-50.0); VENOUS PARTIAL PRESSURE O2 60.9 mmHg (30.0-50.0); VENOUS PH 7.416 UNITS (7.330-7.430); VENOUS STANDARD HCO3 26.8 MEQ/L; VENOUS TOTAL CO2 29.3 MEQ/L (24.0-28.0)
[2021-07-07 16:23] LABS: BASO # 0.1 10^3/uL (0.0-0.2); BASO % 0.6 % (0.0-1.0); EOS # 0.4 10^3/uL (0.0-0.5); EOS % 4.2 % (0.0-3.0); HEMATOCRIT 42.5 % (42.0-52.0); HEMOGLOBIN 14.2 g/dl (13.5-17.5); LYMPH # 1.7 10^3/uL (1.5-5.0); LYMPH % 16.6 % (24.0-44.0); MEAN CORPUSCULAR HEMOGLOBIN 27.1 pg (27.0-33.0); MEAN CORPUSCULAR HGB CONC 33.4 g/dl (32.0-36.5); MEAN CORPUSCULAR VOLUME 81.1 fl (80.0-96.0); MONO # 0.7 10^3/uL (0.0-0.8); MONO % 6.9 % (2.0-8.0); NEUTROPHILS # 7.3 10^3/uL (1.5-8.5); NEUTROPHILS % 70.9 % (36.0-66.0); PLATELET COUNT, AUTOMATED 268 10^3/uL (150-450); RED BLOOD COUNT 5.24 10^6/uL (4.30-6.10); WHITE BLOOD COUNT 10.2 10^3/uL (4.0-10.0)
[2021-07-07 16:50] LABS: MB/CK RELATIVE INDEX 1.47 (< OR =4)
[2021-07-07 16:56] LABS: ALBUMIN 3.8 GM/DL (3.2-5.2); ALT/SGPT 44 U/L (12-78); BILIRUBIN,DIRECT < 0.1 MG/DL (0.0-0.2); BILIRUBIN,TOTAL 0.3 MG/DL (0.2-1.0); BLOOD UREA NITROGEN 13 MG/DL (7-18); CALCIUM LEVEL 8.4 MG/DL (8.5-10.1); CARBON DIOXIDE LEVEL 32 MEQ/L (21-32); CHLORIDE LEVEL 104 MEQ/L (98-107); CREATININE FOR GFR 0.91 MG/DL (0.70-1.30); FREE T4 1.27 NG/DL (0.76-1.46); GLOMERULAR FILTRATION RATE > 60.0 (>56); GLUCOSE, FASTING 131 MG/DL (70-100); POTASSIUM SERUM 3.6 MEQ/L (3.5-5.1); SODIUM LEVEL 140 MEQ/L (136-145); THYROID STIMULATING HORMONE 0.625 uIU/ML (0.358-3.740); TOTAL PROTEIN 6.7 GM/DL (6.4-8.2)
[2021-07-07] MEDS ORDERED: LORazepam 2 MG/ML VIAL IV STA (17:27)
[2021-07-07 18:34] LABS: CK-MB VALUE MASS 2.1 NG/ML (<3.6); MB/CK RELATIVE INDEX 1.45 (< OR =4)
[2021-07-07] MEDS ORDERED: LORA2TAB14 PO (18:45)
[2021-07-07 18:57] VITALS: BP 160/96
== END 2021-07-07 19:08 | disposition home or self-care (01) ==
LOC: M ED 14:54
DX: R07.9 Chest pain, unspecified (principal); F13.239 Sedative, hypnotic or anxiolytic dependence with withdrawal, unspecified; E11.9 Type 2 diabetes mellitus without complications; I10 Essential (primary) hypertension; E78.5 Hyperlipidemia, unspecified; K21.9 Gastro-esophageal reflux disease without esophagitis; J45.909 Unspecified asthma, uncomplicated; Z79.4 Long term (current) use of insulin; I48.91 Unspecified atrial fibrillation; F32.A Depression, unspecified; F41.8 Other specified anxiety disorders; F20.9 Schizophrenia, unspecified; F10.10 Alcohol abuse, uncomplicated; Z79.899 Other long term (current) drug therapy; Z88.0 Allergy status to penicillin; Z91.040 Latex allergy status
CPT/HCPCS: 71045; 80047; 80048; 80076; 82550; 82553; 82803; 83605; 84439; 84443; 84484; 85025; 93005; 93041; 96374; 99285; J2060

== ENCOUNTER → 2021-11-21 | Outpatient (CLI) | payer MEDICARE, MEDICAID ==
[~2021-11-21] MED LIST changes: +LORA2TAB14 PO
[2021-11-21 10:11] LABS: BASO % 0.5 % (0.0-1.0); EOS # 0.4 10^3/uL (0.0-0.5); EOS % 4.4 % (0.0-3.0); HEMOGLOBIN 14.4 g/dl (13.5-17.5); LYMPH # 1.8 10^3/uL (1.5-5.0); LYMPH % 20.8 % (24.0-44.0); MEAN CORPUSCULAR HEMOGLOBIN 26.4 pg (27.0-33.0); MEAN CORPUSCULAR VOLUME 82.6 fl (80.0-96.0); MONO # 0.7 10^3/uL (0.0-0.8); MONO % 8.2 % (2.0-8.0); NEUTROPHILS # 5.8 10^3/uL (1.5-8.5); NEUTROPHILS % 65.3 % (36.0-66.0); PLATELET COUNT, AUTOMATED 241 10^3/uL (150-450); RED BLOOD COUNT 5.45 10^6/uL (4.30-6.10); WHITE BLOOD COUNT 8.8 10^3/uL (4.0-10.0)
[2021-11-21 11:19] LABS: ALBUMIN 3.7 GM/DL (3.2-5.2); ALT/SGPT 44 U/L (12-78); BILIRUBIN,TOTAL 0.5 MG/DL (0.2-1.0); BLOOD UREA NITROGEN 17 MG/DL (7-18); CALCIUM LEVEL 8.4 MG/DL (8.5-10.1); CARBON DIOXIDE LEVEL 31 MEQ/L (21-32); CHLORIDE LEVEL 101 MEQ/L (98-107); CHOLESTEROL LEVEL 117 MG/DL (<200); CHOLESTEROL RISK RATIO 3.162 (<5); FREE T4 1.26 NG/DL (0.76-1.46); GLOMERULAR FILTRATION RATE > 60.0 (>56); GLUCOSE, FASTING 135 MG/DL (70-100); HDL CHOLESTEROL 37 MG/DL (>40); LDL CHOLESTEROL 51 MG/DL (<100); NON-HDL-C 80 MG/DL; POTASSIUM SERUM 3.6 MEQ/L (3.5-5.1); SODIUM LEVEL 138 MEQ/L (136-145); TOTAL PROTEIN 6.8 GM/DL (6.4-8.2); TRIGLYCERIDES LEVEL 145 MG/DL (<150)
[2021-11-21 15:40] LABS: HEMOGLOBIN A1c 7.1 %
[2021-11-26 04:07] LABS: Alkaline Phosphatase Iso-Bone 16 % (12-68); Alkaline Phosphatase Iso-Intes 4 % (0-18); Alkaline Phosphatase Iso-Liver 80 % (13-88); TOTAL ALK PHOS 147 IU/L (44-121)
== END ==
LOC: M LAB 08:45
PROVIDERS: ATTEND Nurse Practitioner Family
DX: E11.69 Type 2 diabetes mellitus with other specified complication (principal)

== ENCOUNTER → 2021-12-24 | Outpatient (REF) | payer MEDICARE, MEDICAID ==
[2021-12-24 14:07] LABS: APPEARANCE, URINE MANUAL CLEAR (CLEAR); COLOR, URINE MANUAL YELLOW (YELLOW)
[2021-12-24 14:08] LABS: BILIRUBIN, URINE MANUAL 1+ (NEGATIVE); BLOOD URINE MANUAL NEGATIVE (NEGATIVE); GLUCOSE, URINE (UA) MANUAL 2+(250 MG/DL) mg/dL (NEGATIVE); KETONE, URINE MANUAL NEGATIVE (NEGATIVE); LEUKOCYTE ESTERASE, URINE MAN NEGATIVE (NEGATIVE); NITRITE, URINE MANUAL NEGATIVE (NEGATIVE); PROTEIN, URINE MANUAL TRACE mg/dL (NEGATIVE); UROBILINOGEN, URINE MANUAL 1 MG mg/dl (NORMAL)
[2021-12-24 14:11] LABS: AMORPHOUS SEDIMENT, URINE SMALL AMOUNT (NEGATIVE); BACTERIA, URINE NONE SEEN; MUCUS, URINE SMALL AMOUNT (NEGATIVE); RBC, URINE NONE SEEN /hpf (0-3); SQUAMOUS EPITHELIAL CELL URINE SMALL AMOUNT /hpf (SMALL AMT); WBC, URINE 0-1 /hpf (0-3)
== END ==
LOC: M SMT 13:23
PROVIDERS: ATTEND Nurse Practitioner Women's Health
DX: R35.1 Nocturia (principal)

== ENCOUNTER → 2022-01-09 | Outpatient (REF) | payer MEDICARE, MEDICAID | LOC: M SMT 13:03 | PROVIDERS: ATTEND Urology | DX: R97.20 Elevated prostate specific antigen [PSA] (principal) ==

== ENCOUNTER → 2022-03-24 | Outpatient (CLI) | payer MEDICARE, MEDICAID ==
[2022-03-24 09:07] LABS: BASO % 0.5 % (0.0-1.0); EOS # 0.4 10^3/uL (0.0-0.5); EOS % 4.8 % (0.0-3.0); HEMATOCRIT 42.8 % (42.0-52.0); LYMPH # 2.1 10^3/uL (1.5-5.0); LYMPH % 24.4 % (24.0-44.0); MEAN CORPUSCULAR HEMOGLOBIN 26.7 pg (27.0-33.0); MEAN CORPUSCULAR HGB CONC 32.7 g/dl (32.0-36.5); MEAN CORPUSCULAR VOLUME 81.7 fl (80.0-96.0); MONO # 0.7 10^3/uL (0.0-0.8); MONO % 8.7 % (2.0-8.0); NEUTROPHILS # 5.2 10^3/uL (1.5-8.5); NEUTROPHILS % 60.8 % (36.0-66.0); PLATELET COUNT, AUTOMATED 249 10^3/uL (150-450); RED BLOOD COUNT 5.24 10^6/uL (4.30-6.10); WHITE BLOOD COUNT 8.5 10^3/uL (4.0-10.0)
[2022-03-24 09:23] LABS: HEMOGLOBIN A1c 6.5 % (4.0-6.0)
[2022-03-24 09:41] LABS: ALBUMIN 3.8 G/DL (3.2-5.2); ALKALINE PHOSPHATASE 142 U/L (46-116); ALT/SGPT 36 U/L (7.0-40); AST/SGOT 27 U/L (<34); BILIRUBIN,TOTAL 0.7 MG/DL (0.3-1.2); BLOOD UREA NITROGEN 13 MG/DL (9-23); CALCIUM LEVEL 8.1 MG/DL (8.5-10.1); CARBON DIOXIDE LEVEL 29 MMOL/L (20-31); CHLORIDE LEVEL 102 MMOL/L (98-107); CHOLESTEROL LEVEL 115 MG/DL (<200); CHOLESTEROL RISK RATIO 2.88 (<5); CREATININE FOR GFR 0.75 MG/DL (0.70-1.30); GLOMERULAR FILTRATION RATE > 60.0 (>56); GLUCOSE, FASTING 127 MG/DL (60-100); HDL CHOLESTEROL 39.9 MG/DL (>40); LDL CHOLESTEROL 55.5 MG/DL (<100); NON-HDL-C 75 MG/DL; POTASSIUM SERUM 3.8 MMOL/L (3.5-5.1); SODIUM LEVEL 138 MMOL/L (136-145); TOTAL PROTEIN 6.6 G/DL (5.7-8.2); TRIGLYCERIDES LEVEL 98 MG/DL (<150)
[2022-03-24 09:43] LABS: FREE T4 1.27 NG/DL (0.89-1.76); THYROID STIMULATING HORMONE 2.473 uIU/ML (0.55-4.78)
[2022-03-26 05:07] LABS: Alkaline Phosphatase Iso-Bone 14 % (12-68); Alkaline Phosphatase Iso-Intes 2 % (0-18); Alkaline Phosphatase Iso-Liver 84 % (13-88); TOTAL ALK PHOS 150 IU/L (44-121)
== END ==
LOC: M LAB 08:18
PROVIDERS: ATTEND Nurse Practitioner Family
DX: E11.69 Type 2 diabetes mellitus with other specified complication (principal); E66.9 Obesity, unspecified; I10 Essential (primary) hypertension; R74.8 Abnormal levels of other serum enzymes; E78.00 Pure hypercholesterolemia, unspecified

== ENCOUNTER → 2022-06-03 | Outpatient (CLI) | payer MEDICARE, MEDICAID ==
[~2022-06-03] MED LIST changes: -BENZ-52 PO; +BENZ1TAB5 PO
[2022-06-03 10:28] LABS: BLOOD UREA NITROGEN 17 MG/DL (9-23); CALCIUM LEVEL 8.4 MG/DL (8.5-10.1); CARBON DIOXIDE LEVEL 29 MMOL/L (20-31); CHLORIDE LEVEL 99 MMOL/L (98-107); CREATININE FOR GFR 0.72 MG/DL (0.70-1.30); GLOMERULAR FILTRATION RATE > 60.0 (>56); GLUCOSE, FASTING 142 MG/DL (60-100); POTASSIUM SERUM 3.5 MMOL/L (3.5-5.1); SODIUM LEVEL 138 MMOL/L (136-145)
== END ==
LOC: M LAB 08:08
PROVIDERS: ATTEND Student in an Organized Health Care Education/Training Program
DX: Z53.9 Procedure and treatment not carried out, unspecified reason (principal)

== ENCOUNTER → 2022-06-03 | Outpatient (CLI) | payer MEDICARE, MEDICAID ==
[2022-06-03 09:48] LABS: APPEARANCE, URINE CLEAR (CLEAR); BILIRUBIN, URINE AUTO NEGATIVE (NEGATIVE); BLOOD, URINE BLOOD NEGATIVE (NEGATIVE); COLOR, URINE YELLOW (YELLOW); GLUCOSE, URINE (UA) AUTO NEGATIVE (NEGATIVE); KETONE, URINE AUTO NEGATIVE (NEGATIVE); LEUKOCYTE ESTERASE, URINE AUTO NEGATIVE (NEGATIVE); NITRITE, URINE AUTO NEGATIVE (NEGATIVE); PROTEIN, URINE AUTO NEGATIVE (NEGATIVE); SPECIFIC GRAVITY URINE AUTO 1.021 (1.002-1.035)
[2022-06-03 09:50] LABS: BASO # 0.1 10^3/uL (0.0-0.2); BASO % 0.6 % (0.0-1.0); EOS # 0.4 10^3/uL (0.0-0.5); EOS % 4.5 % (0.0-3.0); HEMATOCRIT 41.7 % (42.0-52.0); LYMPH % 23.9 % (24.0-44.0); MEAN CORPUSCULAR HEMOGLOBIN 26.8 pg (27.0-33.0); MEAN CORPUSCULAR HGB CONC 33.6 g/dl (32.0-36.5); MEAN CORPUSCULAR VOLUME 79.9 fl (80.0-96.0); MONO # 0.7 10^3/uL (0.0-0.8); MONO % 8.8 % (2.0-8.0); NEUTROPHILS # 5.2 10^3/uL (1.5-8.5); NEUTROPHILS % 61.7 % (36.0-66.0); PLATELET COUNT, AUTOMATED 260 10^3/uL (150-450); RED BLOOD COUNT 5.22 10^6/uL (4.30-6.10); WHITE BLOOD COUNT 8.4 10^3/uL (4.0-10.0)
[2022-06-03 09:55] LABS: BACTERIA, URINE AUTO NEGATIVE (NEGATIVE); MUCUS, URINE SMALL (NEGATIVE); RBC, URINE AUTO 1 /HPF (0-3); SQUAMOUS EPITHELIAL CELL UR AU 0 /HPF (0-6); WBC, URINE AUTO 1 /HPF (0-3)
[2022-06-03 10:46] LABS: ALBUMIN 3.8 G/DL (3.2-5.2); ALKALINE PHOSPHATASE 146 U/L (46-116); ALT/SGPT 38 U/L (7.0-40); AST/SGOT 32 U/L (<34); BLOOD UREA NITROGEN 17 MG/DL (9-23); CALCIUM LEVEL 8.5 MG/DL (8.5-10.1); CARBON DIOXIDE LEVEL 29 MMOL/L (20-31); CHLORIDE LEVEL 99 MMOL/L (98-107); CHOLESTEROL LEVEL 135 MG/DL (<200); CHOLESTEROL RISK RATIO 2.87 (<5); CREATININE FOR GFR 0.71 MG/DL (0.70-1.30); FREE T4 1.38 NG/DL (0.89-1.76); GLOMERULAR FILTRATION RATE > 60.0 (>56); GLUCOSE, FASTING 142 MG/DL (60-100); NON-HDL-C 88 MG/DL; POTASSIUM SERUM 3.5 MMOL/L (3.5-5.1); SODIUM LEVEL 138 MMOL/L (136-145); THYROID STIMULATING HORMONE 1.635 uIU/ML (0.55-4.78); TOTAL 25(OH) VITAMIN D 35.9 NG/ML (20.0-100.0); VITAMIN B12 LEVEL 830 PG/ML (211-911)
[2022-06-03 22:17] LABS: BILIRUBIN,TOTAL 0.6 MG/DL (0.3-1.2); LDL CHOLESTEROL 62.6 MG/DL (<100); TOTAL PROTEIN 6.7 G/DL (5.7-8.2); TRIGLYCERIDES LEVEL 127 MG/DL (<150)
== END ==
LOC: M LAB 08:14
DX: E78.5 Hyperlipidemia, unspecified (principal); R35.0 Frequency of micturition; I10 Essential (primary) hypertension; E66.9 Obesity, unspecified; E11.69 Type 2 diabetes mellitus with other specified complication

== ENCOUNTER → 2022-06-23 | Outpatient (CLI) | payer MEDICARE, MEDICAID ==
[~2022-06-23] MED LIST changes: +MONT-5 PO; -SING10TA32 PO
[2022-06-24 18:10] LABS: PSA % FREE 12.5 % (.); PSA FREE 0.64 ng/mL; PSA TOTAL 5.1 ng/mL (0.0-4.0)
== END ==
LOC: M LAB 08:10
PROVIDERS: ATTEND Urology
DX: R97.20 Elevated prostate specific antigen [PSA] (principal)

== ENCOUNTER 2022-08-13 00:10 | Emergency (ER) | payer MEDICARE, MEDICAID ==
[~2022-08-13] VITALS: Ht 177.8 cm; Wt 112.7 kg
[~2022-08-13 00:10] MED LIST changes: +BENZ2TAB48 PO; -BENZ2TAB5 PO; +FLUT50SP17; -FLUTISP
[2022-08-13] MEDS ORDERED: KETOROLAC 60MG 2ML VIAL IM ONE (05:25)
[2022-08-13 06:00] VITALS: BP 197/114
== END 2022-08-13 06:12 | disposition home or self-care (01) ==
LOC: EDBD 00:10 → M ED 00:10
DX: S92.412A Displaced fracture of proximal phalanx of left great toe, initial encounter for closed fracture (principal); W10.8XXA Fall (on) (from) other stairs and steps, initial encounter; E03.9 Hypothyroidism, unspecified; J45.909 Unspecified asthma, uncomplicated; F31.9 Bipolar disorder, unspecified; Z88.0 Allergy status to penicillin; Z91.040 Latex allergy status; Y92.009 Unspecified place in unspecified non-institutional (private) residence as the place of occurrence of the external cause; Z79.02 Long term (current) use of antithrombotics/antiplatelets; Z79.899 Other long term (current) drug therapy
CPT/HCPCS: 73630; 96372; 99284; J1885

== ENCOUNTER → 2022-09-22 | Outpatient (CLI) | payer MEDICARE, MEDICAID ==
[~2022-09-22] MED LIST changes: -DILT1CAP6 PO; +DILT240C42 PO; +LORA1TAB23 PO; -LORA1TAB4 PO
[2022-09-22 09:32] LABS: BASO % 0.5 % (0.0-1.0); EOS # 0.4 10^3/uL (0.0-0.5); EOS % 5.3 % (0.0-3.0); HEMATOCRIT 40.9 % (42.0-52.0); LYMPH # 1.8 10^3/uL (1.5-5.0); LYMPH % 23.3 % (24.0-44.0); MEAN CORPUSCULAR HEMOGLOBIN 25.2 pg (27.0-33.0); MEAN CORPUSCULAR HGB CONC 31.8 g/dl (32.0-36.5); MEAN CORPUSCULAR VOLUME 79.4 fl (80.0-96.0); MONO # 0.7 10^3/uL (0.0-0.8); MONO % 9.1 % (2.0-8.0); NEUTROPHILS # 4.6 10^3/uL (1.5-8.5); NEUTROPHILS % 61.4 % (36.0-66.0); PLATELET COUNT, AUTOMATED 271 10^3/uL (150-450); RED BLOOD COUNT 5.15 10^6/uL (4.30-6.10); WHITE BLOOD COUNT 7.5 10^3/uL (4.0-10.0)
[2022-09-22 09:58] LABS: ALBUMIN 3.7 G/DL (3.2-5.2); ALKALINE PHOSPHATASE 133 U/L (46-116); ALT/SGPT 27 U/L (7.0-40); AST/SGOT 19 U/L (<34); BILIRUBIN,TOTAL 0.4 MG/DL (0.3-1.2); BLOOD UREA NITROGEN 20 MG/DL (9-23); CALCIUM LEVEL 8.5 MG/DL (8.5-10.1); CARBON DIOXIDE LEVEL 30 MMOL/L (20-31); CHLORIDE LEVEL 104 MMOL/L (98-107); CHOLESTEROL LEVEL 112 MG/DL (<200); CHOLESTEROL RISK RATIO 2.92 (<5); CREATININE FOR GFR 0.79 MG/DL (0.70-1.30); GLOMERULAR FILTRATION RATE > 60.0 (>56); GLUCOSE, FASTING 137 MG/DL (60-100); HDL CHOLESTEROL 38.3 MG/DL (>40); LDL CHOLESTEROL 56.3 MG/DL (<100); NON-HDL-C 73.7 MG/DL; POTASSIUM SERUM 3.9 MMOL/L (3.5-5.1); SODIUM LEVEL 141 MMOL/L (136-145); TOTAL PROTEIN 6.3 G/DL (5.7-8.2); TRIGLYCERIDES LEVEL 87 MG/DL (<150)
[2022-09-22 09:59] LABS: THYROID STIMULATING HORMONE 1.633 uIU/ML (0.55-4.78)
[2022-09-22 10:18] LABS: HEMOGLOBIN A1c 7.3 % (4.0-6.0)
== END ==
LOC: M LAB 08:41
PROVIDERS: ATTEND Student in an Organized Health Care Education/Training Program
DX: F31.9 Bipolar disorder, unspecified (principal); Z79.899 Other long term (current) drug therapy

== ENCOUNTER → 2022-09-28 | Outpatient (CLI) | payer MEDICARE, MEDICAID | LOC: M SOG 09:54 | PROVIDERS: ATTEND Physician Assistant | DX: S92.412A Displaced fracture of proximal phalanx of left great toe, initial encounter for closed fracture (principal) ==

== ENCOUNTER → 2022-10-29 | Outpatient (CLI) | payer MEDICARE, MEDICAID | LOC: M SOG 08:45 | PROVIDERS: ATTEND Physician Assistant | DX: S92.412A Displaced fracture of proximal phalanx of left great toe, initial encounter for closed fracture (principal) ==

== ENCOUNTER → 2022-11-24 | Outpatient (CLI) | payer MEDICARE, MEDICAID, OTHER ==
[~2022-11-24] MED LIST changes: -GABA-283 PO; +GABA-284 PO
[2022-11-24 10:33] LABS: APPEARANCE, URINE CLEAR (CLEAR); BACTERIA, URINE AUTO NEGATIVE (NEGATIVE); BILIRUBIN, URINE AUTO NEGATIVE (NEGATIVE); BLOOD, URINE BLOOD NEGATIVE (NEGATIVE); COLOR, URINE YELLOW (YELLOW); GLUCOSE, URINE (UA) AUTO NEGATIVE (NEGATIVE); KETONE, URINE AUTO NEGATIVE (NEGATIVE); LEUKOCYTE ESTERASE, URINE AUTO NEGATIVE (NEGATIVE); MUCUS, URINE SMALL (NEGATIVE); NITRITE, URINE AUTO NEGATIVE (NEGATIVE); PROTEIN, URINE AUTO NEGATIVE (NEGATIVE); RBC, URINE AUTO 1 /HPF (0-3); SQUAMOUS EPITHELIAL CELL UR AU 0 /HPF (0-6); WBC, URINE AUTO 1 /HPF (0-3)
[2022-11-24 10:42] LABS: BASO % 0.5 % (0.0-1.0); EOS # 0.4 10^3/uL (0.0-0.5); EOS % 4.2 % (0.0-3.0); HEMATOCRIT 42.8 % (42.0-52.0); HEMOGLOBIN 13.8 g/dl (13.5-17.5); LYMPH # 2.1 10^3/uL (1.5-5.0); MEAN CORPUSCULAR HEMOGLOBIN 24.9 pg (27.0-33.0); MEAN CORPUSCULAR HGB CONC 32.2 g/dl (32.0-36.5); MEAN CORPUSCULAR VOLUME 77.1 fl (80.0-96.0); MONO # 0.8 10^3/uL (0.0-0.8); MONO % 9.9 % (2.0-8.0); NEUTROPHILS # 5.1 10^3/uL (1.5-8.5); NEUTROPHILS % 59.9 % (36.0-66.0); PLATELET COUNT, AUTOMATED 296 10^3/uL (150-450); RED BLOOD COUNT 5.55 10^6/uL (4.30-6.10); WHITE BLOOD COUNT 8.5 10^3/uL (4.0-10.0)
[2022-11-24 10:55] LABS: HEMOGLOBIN A1c 7.6 % (4.0-6.0)
[2022-11-24 11:10] LABS: ALKALINE PHOSPHATASE 152 U/L (46-116); ALT/SGPT 36 U/L (7.0-40); AST/SGOT 24 U/L (<34); BILIRUBIN,TOTAL 0.7 MG/DL (0.3-1.2); BLOOD UREA NITROGEN 18 MG/DL (9-23); CALCIUM LEVEL 8.8 MG/DL (8.5-10.1); CARBON DIOXIDE LEVEL 31 MMOL/L (20-31); CHLORIDE LEVEL 100 MMOL/L (98-107); CHOLESTEROL LEVEL 147 MG/DL (<200); CHOLESTEROL RISK RATIO 2.62 (<5); CREATININE FOR GFR 0.77 MG/DL (0.70-1.30); FREE T4 1.27 NG/DL (0.89-1.76); GLOMERULAR FILTRATION RATE > 60.0 (>56); GLUCOSE, FASTING 137 MG/DL (60-100); LDL CHOLESTEROL 71.6 MG/DL (<100); POTASSIUM SERUM 3.7 MMOL/L (3.5-5.1); SODIUM LEVEL 141 MMOL/L (136-145); THYROID STIMULATING HORMONE 2.456 uIU/ML (0.55-4.78); TOTAL PROTEIN 7.2 G/DL (5.7-8.2); TRIGLYCERIDES LEVEL 97 MG/DL (<150)
[2022-11-24 11:17] LABS: CREATININE, URINE 163.7 MG/DL; MAU/CREAT RATIO 6.1 MCG/MG (0.0-30.0)
== END ==
LOC: M LAB 09:18
PROVIDERS: ATTEND Family Medicine
DX: E78.5 Hyperlipidemia, unspecified (principal); I10 Essential (primary) hypertension; E11.69 Type 2 diabetes mellitus with other specified complication; E66.9 Obesity, unspecified

== ENCOUNTER → 2023-02-10 | Outpatient (CLI) | payer MEDICARE, OTHER, MEDICAID ==
[~2023-02-10] MED LIST changes: -OXYB5TAB10 PO; +OXYB5TAB11 PO
[2023-02-10 10:45] LABS: APPEARANCE, URINE CLEAR (CLEAR); BACTERIA, URINE AUTO NEGATIVE (NEGATIVE); BILIRUBIN, URINE AUTO NEGATIVE (NEGATIVE); BLOOD, URINE BLOOD NEGATIVE (NEGATIVE); COLOR, URINE YELLOW (YELLOW); GLUCOSE, URINE (UA) AUTO 3+ mg/dL (NEGATIVE); KETONE, URINE AUTO NEGATIVE (NEGATIVE); LEUKOCYTE ESTERASE, URINE AUTO NEGATIVE (NEGATIVE); NITRITE, URINE AUTO NEGATIVE (NEGATIVE); PROTEIN, URINE AUTO NEGATIVE (NEGATIVE); RBC, URINE AUTO 0 /HPF (0-3); SPECIFIC GRAVITY URINE AUTO 1.041 (1.002-1.035); SQUAMOUS EPITHELIAL CELL UR AU 0 /HPF (0-6); WBC, URINE AUTO 0 /HPF (0-3)
[2023-02-10 10:47] LABS: BASO % 0.6 % (0.0-1.0); EOS # 0.4 10^3/uL (0.0-0.5); HEMOGLOBIN 14.4 g/dl (13.5-17.5); LYMPH # 1.7 10^3/uL (1.5-5.0); MEAN CORPUSCULAR HEMOGLOBIN 25.3 pg (27.0-33.0); MEAN CORPUSCULAR VOLUME 78.9 fl (80.0-96.0); MONO # 0.7 10^3/uL (0.0-0.8); MONO % 9.8 % (2.0-8.0); NEUTROPHILS # 4.3 10^3/uL (1.5-8.5); NEUTROPHILS % 59.9 % (36.0-66.0); PLATELET COUNT, AUTOMATED 281 10^3/uL (150-450); WHITE BLOOD COUNT 7.2 10^3/uL (4.0-10.0)
[2023-02-10 11:13] LABS: HEMOGLOBIN A1c 6.3 % (4.0-6.0)
[2023-02-10 11:36] LABS: FREE T4 1.28 NG/DL (0.89-1.76)
[2023-02-10 11:37] LABS: MAU/CREAT RATIO 3.9 MCG/MG (0.0-30.0)
[2023-02-10 11:39] LABS: THYROID STIMULATING HORMONE 1.375 uIU/ML (0.55-4.78)
[2023-02-10 11:41] LABS: ALKALINE PHOSPHATASE 154 U/L (46-116); ALT/SGPT 34 U/L (7.0-40); AST/SGOT 25 U/L (<34); BILIRUBIN,TOTAL 0.4 MG/DL (0.3-1.2); BLOOD UREA NITROGEN 21 MG/DL (9-23); CALCIUM LEVEL 8.6 MG/DL (8.5-10.1); CARBON DIOXIDE LEVEL 28 MMOL/L (20-31); CHLORIDE LEVEL 104 MMOL/L (98-107); CHOLESTEROL LEVEL 131 MG/DL (<200); CREATININE FOR GFR 0.86 MG/DL (0.70-1.30); GLOMERULAR FILTRATION RATE > 60.0 (>56); GLUCOSE, FASTING 135 MG/DL (60-100); HDL CHOLESTEROL 43.6 MG/DL (>40); NON-HDL-C 87.4 MG/DL; SODIUM LEVEL 142 MMOL/L (136-145); TOTAL PROTEIN 6.9 G/DL (5.7-8.2); TRIGLYCERIDES LEVEL 142 MG/DL (<150)
== END ==
LOC: M LAB 09:09
PROVIDERS: ATTEND Family Medicine
DX: E78.5 Hyperlipidemia, unspecified (principal); I10 Essential (primary) hypertension; E11.69 Type 2 diabetes mellitus with other specified complication; E66.9 Obesity, unspecified; E03.9 Hypothyroidism, unspecified

== ENCOUNTER → 2023-04-21 | Outpatient (CLI) | payer MEDICARE, MEDICAID ==
[~2023-04-21] MED LIST changes: -FLUT50SP17; +FLUTISP
== END ==
LOC: M LAB 09:27
PROVIDERS: ATTEND Family Medicine
DX: R79.89 Other specified abnormal findings of blood chemistry (principal)

== ENCOUNTER → 2023-06-15 | Outpatient (CLI) | payer MEDICARE, MEDICAID ==
[~2023-06-15] MED LIST changes: -ASPI-161 PO; +ASPI-615 PO; -OXYB5TAB11 PO; +OXYB5TAB14 PO
== END ==
LOC: M RAD 17:27
PROVIDERS: ATTEND Physician Assistant
DX: R07.81 Pleurodynia (principal)

== ENCOUNTER → 2023-08-19 | Outpatient (CLI) | payer MEDICARE, MEDICAID ==
[2023-08-19 10:43] LABS: HEMOGLOBIN A1c 6.3 % (4.0-6.0)
[2023-08-19 11:02] LABS: CREATININE, URINE 113.2 MG/DL; MAU/CREAT RATIO 3.5 MCG/MG (0.0-30.0)
[2023-08-19 11:04] LABS: ALBUMIN 3.8 G/DL (3.2-5.2); ALKALINE PHOSPHATASE 160 U/L (46-116); ALT/SGPT 32 U/L (7.0-40); AST/SGOT 22 U/L (<34); BILIRUBIN,TOTAL 0.5 MG/DL (0.3-1.2); BLOOD UREA NITROGEN 20 MG/DL (9-23); CALCIUM LEVEL 8.3 MG/DL (8.5-10.1); CARBON DIOXIDE LEVEL 28 MMOL/L (20-31); CHLORIDE LEVEL 104 MMOL/L (98-107); CHOLESTEROL LEVEL 141 MG/DL (<200); CREATININE FOR GFR 0.78 MG/DL (0.70-1.30); GLOMERULAR FILTRATION RATE > 60.0 (>56); GLUCOSE, FASTING 111 MG/DL (60-100); LDL CHOLESTEROL 76.2 MG/DL (<100); POTASSIUM SERUM 3.7 MMOL/L (3.5-5.1); SODIUM LEVEL 140 MMOL/L (136-145); TOTAL PROTEIN 6.6 G/DL (5.7-8.2); TRIGLYCERIDES LEVEL 89 MG/DL (<150)
== END ==
LOC: M LAB 09:26
PROVIDERS: ATTEND Family Medicine
DX: E78.00 Pure hypercholesterolemia, unspecified (principal); I10 Essential (primary) hypertension; E11.69 Type 2 diabetes mellitus with other specified complication; E66.9 Obesity, unspecified

== ENCOUNTER 2023-08-29 21:38 | Emergency (ER) | payer MEDICARE, MEDICAID ==
[2023-08-29] MEDS ORDERED: ORAJ20GE MM (23:52)
[2023-08-29] MEDS ORDERED: IBUP-1022 PO (23:52)
[2023-08-30 00:10] VITALS: BP 132/80; TEMP 98.7; O2SAT 98
[2023-08-30] MEDS: KETOROLAC 30 MG/ML 1ML VIAL IV ONE (00:11)
== END 2023-08-30 00:23 | disposition home or self-care (01) ==
LOC: M ED 21:38
DX: K08.89 Other specified disorders of teeth and supporting structures (principal); E03.9 Hypothyroidism, unspecified; Z88.0 Allergy status to penicillin; Z88.8 Allergy status to other drugs, medicaments and biological substances; Z91.040 Latex allergy status; Z79.02 Long term (current) use of antithrombotics/antiplatelets; Z79.1 Long term (current) use of non-steroidal anti-inflammatories (NSAID); Z79.4 Long term (current) use of insulin; Z79.899 Other long term (current) drug therapy
CPT/HCPCS: 86618; 96374; 99283; J1885

== ENCOUNTER → 2023-12-08 | Outpatient (CLI) | payer MEDICARE, MEDICAID ==
[~2023-12-08] MED LIST changes: +FLUO-365 PO; -FLUO20CA22 PO; +METH85CR6 TOP; -MUSCCRE9 TOP; -OLAN20TA14 PO; +OLAN20TA53 PO; +ORAJ20GE MM
== END ==
LOC: M LAB 07:34
PROVIDERS: ATTEND Urology
DX: R97.20 Elevated prostate specific antigen [PSA] (principal)

== ENCOUNTER 2023-12-31 05:25 | Emergency (ER) | payer MEDICARE, MEDICAID ==
[~2023-12-31] VITALS: Ht 177.8 cm; Wt 102.3 kg
[~2023-12-31 05:25] MED LIST changes: +GABA-1490 PO; -GABA600T4 PO
[2023-12-31] MEDS: KETOROLAC 30 MG/ML 1ML VIAL IM ONE (07:20)
[2023-12-31 07:35] VITALS: BP 170/104
[2023-12-31] MEDS: LOSARTAN 50MG TABLET PO ONE (07:35)
[2023-12-31] MEDS ORDERED: CLEO300C2 PO (08:43)
[2023-12-31 09:24] VITALS: BP 160/92; TEMP 97.2; O2SAT 95
[2024-01-04 22:02] LABS: LYME TOTAL ANTIBODY CIA <= 0.90 Index (<=0.90)
== END 2023-12-31 09:28 | disposition home or self-care (01) ==
LOC: M ED 05:25
DX: K08.89 Other specified disorders of teeth and supporting structures (principal); I10 Essential (primary) hypertension; J45.909 Unspecified asthma, uncomplicated; N40.0 Benign prostatic hyperplasia without lower urinary tract symptoms; E11.9 Type 2 diabetes mellitus without complications; F31.9 Bipolar disorder, unspecified; Z88.0 Allergy status to penicillin; Z88.8 Allergy status to other drugs, medicaments and biological substances; Z91.040 Latex allergy status; Z79.02 Long term (current) use of antithrombotics/antiplatelets; Z79.4 Long term (current) use of insulin; Z79.899 Other long term (current) drug therapy

== ENCOUNTER → 2024-01-18 | Outpatient (CLI) | payer MEDICARE, MEDICAID ==
[~2024-01-18] MED LIST changes: +GABA-1172 PO; -GABA-282 PO; -OLAN15TA13 PO; +OLAN15TA69 PO; +PROHANCE 279.3MG/ML 15ML VIAL As Ordered ONE; +PROHANCE 279.3MG/ML 5ML VIAL As Ordered ONE
== END ==
LOC: M RAD 13:46
PROVIDERS: ATTEND Urology
DX: R97.20 Elevated prostate specific antigen [PSA] (principal)
CPT/HCPCS: 72197; A9576

== ENCOUNTER → 2024-01-25 | Outpatient (REF) | payer MEDICARE, MEDICAID ==
[~2024-01-25] MED LIST changes: -PROHANCE 279.3MG/ML 15ML VIAL As Ordered ONE; -PROHANCE 279.3MG/ML 5ML VIAL As Ordered ONE
== END ==
LOC: M SMT PRO 12:45
PROVIDERS: ATTEND Urology
DX: R97.20 Elevated prostate specific antigen [PSA] (principal)

== ENCOUNTER → 2024-02-02 | Outpatient (REF) | payer MEDICARE, MEDICAID ==
[2024-02-02 18:28] LABS: APPEARANCE, URINE CLOUDY (CLEAR); BACTERIA, URINE AUTO 1+ (NEGATIVE); BILIRUBIN, URINE AUTO NEGATIVE (NEGATIVE); BLOOD, URINE BLOOD 3+ (NEGATIVE); CALCIUM OXALATE CRYSTALS SMALL; COLOR, URINE YELLOW (YELLOW); GLUCOSE, URINE (UA) AUTO 3+ mg/dL (NEGATIVE); KETONE, URINE AUTO NEGATIVE (NEGATIVE); LEUKOCYTE ESTERASE, URINE AUTO 3+ (NEGATIVE); NITRITE, URINE AUTO NEGATIVE (NEGATIVE); PROTEIN, URINE AUTO NEGATIVE (NEGATIVE); RBC, URINE AUTO 32 /HPF (0-3); SPECIFIC GRAVITY URINE AUTO 1.041 (1.002-1.035); SQUAMOUS EPITHELIAL CELL UR AU 0 /HPF (0-6); UROBILINOGEN, URINE AUTO 0.2 mg/dL (0.0-2.0); WBC, URINE AUTO 127 /HPF (0-3)
== END ==
LOC: M SMT 17:16 → EEVIPCON 17:16
PROVIDERS: ATTEND Nurse Practitioner Family
DX: R39.15 Urgency of urination (principal)

== ENCOUNTER → 2024-03-10 | Outpatient (REF) | payer MEDICARE, MEDICAID ==
[~2024-03-10] MED LIST changes: -LACT10SO3 PO; +LACT10SO94 PO
[2024-03-10 17:53] LABS: AMORPHOUS SEDIMENT SMALL (NEGATIVE); APPEARANCE, URINE HAZY (CLEAR); BACTERIA, URINE AUTO 1+ (NEGATIVE); BILIRUBIN, URINE AUTO NEGATIVE (NEGATIVE); BLOOD, URINE BLOOD NEGATIVE (NEGATIVE); COLOR, URINE AMBER (YELLOW); GLUCOSE, URINE (UA) AUTO 3+ mg/dL (NEGATIVE); KETONE, URINE AUTO NEGATIVE (NEGATIVE); LEUKOCYTE ESTERASE, URINE AUTO 2+ (NEGATIVE); MUCUS, URINE SMALL (NEGATIVE); NITRITE, URINE AUTO POSITIVE (NEGATIVE); PROTEIN, URINE AUTO NEGATIVE (NEGATIVE); RBC, URINE AUTO 4 /HPF (0-3); SPECIFIC GRAVITY URINE AUTO 1.037 (1.002-1.035); SQUAMOUS EPITHELIAL CELL UR AU 0 /HPF (0-6); UROBILINOGEN, URINE AUTO 0.2 mg/dL (0.0-2.0); WBC, URINE AUTO 68 /HPF (0-3)
== END ==
LOC: M SMT 16:47
PROVIDERS: ATTEND Nurse Practitioner Family
DX: R30.0 Dysuria (principal)

== ENCOUNTER 2024-04-15 11:30 | Inpatient (IN) | payer MEDICARE, MEDICAID ==
[~2024-04-15] VITALS: Ht 177.8 cm; Wt 103.1 kg
[~2024-04-15 11:30] MED LIST changes: -LORA2TA PO; +LORA2TAB15 PO
[2024-04-15] MEDS: LORazepam 2 MG TAB PO ONE (12:08)
[2024-04-15 12:16] LABS: HEMATOCRIT 42.5 % (42.0-52.0); HEMOGLOBIN 13.5 g/dl (13.5-17.5); MEAN CORPUSCULAR HEMOGLOBIN 24.4 pg (27.0-33.0); MEAN CORPUSCULAR HGB CONC 31.8 g/dl (32.0-36.5); MEAN CORPUSCULAR VOLUME 76.7 fl (80.0-96.0); PLATELET COUNT, AUTOMATED 356 10^3/uL (150-450); RED BLOOD COUNT 5.54 10^6/uL (4.30-6.10)
[2024-04-15 12:37] LABS: AMPHETAMINES LEVEL URINE NEGATIVE (NEGATIVE); BARBITURATES URINE NEGATIVE (NEGATIVE); BENZODIAZEPINES URINE NEGATIVE (NEGATIVE); CANNABINOIDS URINE NEGATIVE (NEGATIVE); COCAINE METABOLITE URINE NEGATIVE (NEGATIVE); METHADONE URINE NEGATIVE (NEGATIVE); OPIATES URINE NEGATIVE (NEGATIVE); PHENCYCLIDINE URINE NEGATIVE (NEGATIVE)
[2024-04-15 12:39] LABS: ETHYL ALCOHOL (ETHANOL) < 0.003 % (0.000-0.010)
[2024-04-15 12:41] LABS: ALBUMIN 4.4 G/DL (3.2-5.2); ALKALINE PHOSPHATASE 121 U/L (40-129); ALT/SGPT 40 U/L (7.0-40); AST/SGOT 34 U/L (<34); BILIRUBIN,DIRECT 0.1 MG/DL (<0.4); BILIRUBIN,TOTAL 0.5 MG/DL (0.3-1.2); BLOOD UREA NITROGEN 18 MG/DL (9-23); CALCIUM LEVEL 9.2 MG/DL (8.5-10.1); CARBON DIOXIDE LEVEL 25 MMOL/L (20-31); CHLORIDE LEVEL 103 MMOL/L (98-107); CREATININE FOR GFR 0.63 MG/DL (0.70-1.30); GLOMERULAR FILTRATION RATE > 60.0 (>56); GLUCOSE, FASTING 153 MG/DL (60-100); POTASSIUM SERUM 3.8 MMOL/L (3.5-5.1); SALICYLATE LEVEL < 3.0 MG/DL (<30); SODIUM LEVEL 138 MMOL/L (136-145); TOTAL PROTEIN 7.7 G/DL (5.7-8.2)
[2024-04-15 12:48] LABS: THYROID STIMULATING HORMONE 1.073 uIU/ML (0.55-4.78)
[2024-04-15] MEDS ORDERED: MAALOX 30 ML SUSP *UDC PO PRN (14:10)
[2024-04-15 15:37] VITALS: BP 161/88; TEMP 97.8
[2024-04-15] MEDS: OLANZapine ORAL DISINTEGRATING TAB 5MG PO PRN (21:56)
[2024-04-15] MEDS: OLANZapine 5 MG TAB PO SCH (21:56)
[2024-04-15] MEDS ORDERED: IBUP-1114 PO (22:26)
[2024-04-15] MEDS ORDERED: HALD100I2 IM (22:26)
[2024-04-15] MEDS ORDERED: LAMO100T80 PO (22:26)
[2024-04-15] MEDS ORDERED: HALO10TA20 PO (22:26)
[2024-04-15] MEDS ORDERED: VIBE75TA PO (22:34)
[2024-04-15] MEDS ORDERED: HYDR12CA PO (22:34)
[2024-04-15] MEDS ORDERED: MULT-90 PO (22:34)
[2024-04-15] MEDS ORDERED: JARD1TAB3 PO (22:34)
[2024-04-15] MEDS ORDERED: QUET50TA4 PO (22:34)
[2024-04-15] MEDS ORDERED: HOME MED LIST COMPLETE! XX SCH (22:40)
[2024-04-15] MEDS: IBUPROFEN 400MG TAB PO PRN (23:14)
[2024-04-15] MEDS: diphenhydrAMINE 25MG CAP PO PRN (23:14)
[2024-04-15] MEDS: traZODone 50 MG TAB PO PRN (23:16)
[2024-04-16] MEDS: MOM 30ML SUSPENSION UDC PO PRN (02:08)
[2024-04-16] MEDS: ACETAMINOPHEN 325 MG TAB PO PRN (02:09)
[2024-04-16] MEDS: LIDOCAINE 5% (LIDODERM) PATCH TD SCH (04:48)
[2024-04-16 07:00] VITALS: BP 142/86; TEMP 98.4; O2SAT 97
[2024-04-16] MEDS ORDERED: DOCUSATE SODIUM 100MG CAPSULE PO PRN (08:25)
[2024-04-16] MEDS: metFORMIN (GLUCOPHAGE) 1000MG TABLET PO SCH (09:14)
[2024-04-16] MEDS: BENZTROPINE 2 MG TAB PO SCH (09:14)
[2024-04-16] MEDS: TAMSULOSIN 0.4 MG CAP PO SCH (09:14)
[2024-04-16] MEDS: LOSARTAN 50MG TABLET PO SCH (09:21)
[2024-04-16] MEDS: OMEPRAZOLE 20MG CAP PO SCH (09:22)
[2024-04-16] MEDS: ATORVASTATIN 20 MG TAB PO SCH (09:22)
[2024-04-16] MEDS: LEVOTHYROXINE 100MCG TABLET (0.1MG) PO SCH (10:33)
[2024-04-16] MEDS: hydroCHLOROthiazide 12.5 MG CAPSULE PO SCH (10:33)
[2024-04-16 14:45] VITALS: BP 184/94; TEMP 98.3; O2SAT 96
[2024-04-16] MEDS: LORazepam 1 MG TAB PO PRN (15:33)
[2024-04-16 19:53] LABS: PROCALCITONIN <0.04 ng/ml
[2024-04-16] MEDS ORDERED: MAGIC MOUTHWASH 5ML ORAL SYRINGE SS PRN (20:00)
[2024-04-16] MEDS: QUEtiapine FUMARATE 50MG TAB PO SCH (20:10)
[2024-04-17 06:27] VITALS: BP 150/94; TEMP 96.7; TEMP 96.9; O2SAT 97
[2024-04-17 08:34] LABS: BASO # 0.1 10^3/uL (0.0-0.2); BASO % 0.5 % (0.0-1.0); EOS # 0.5 10^3/uL (0.0-0.5); EOS % 5.1 % (0.0-3.0); HEMATOCRIT 41.5 % (42.0-52.0); HEMOGLOBIN 12.9 g/dl (13.5-17.5); LYMPH # 1.8 10^3/uL (1.5-5.0); MEAN CORPUSCULAR HEMOGLOBIN 24.2 pg (27.0-33.0); MEAN CORPUSCULAR HGB CONC 31.1 g/dl (32.0-36.5); MEAN CORPUSCULAR VOLUME 77.7 fl (80.0-96.0); MONO # 0.7 10^3/uL (0.0-0.8); NEUTROPHILS # 6.4 10^3/uL (1.5-8.5); NEUTROPHILS % 67.8 % (36.0-66.0); PLATELET COUNT, AUTOMATED 289 10^3/uL (150-450); RED BLOOD COUNT 5.34 10^6/uL (4.30-6.10); WHITE BLOOD COUNT 9.4 10^3/uL (4.0-10.0)
[2024-04-17 09:05] LABS: BLOOD UREA NITROGEN 16 MG/DL (9-23); CALCIUM LEVEL 8.6 MG/DL (8.5-10.1); CARBON DIOXIDE LEVEL 23 MMOL/L (20-31); CHLORIDE LEVEL 101 MMOL/L (98-107); CREATININE FOR GFR 0.67 MG/DL (0.70-1.30); GLOMERULAR FILTRATION RATE > 60.0 (>56); GLUCOSE, FASTING 389 MG/DL (60-100); POTASSIUM SERUM 3.6 MMOL/L (3.5-5.1); SODIUM LEVEL 135 MMOL/L (136-145)
[2024-04-17 09:17] LABS: PROCALCITONIN 0.04 ng/ml
[2024-04-17 19:07] VITALS: BP 148/78; TEMP 97.9; O2SAT 98
[2024-04-17] MEDS: QUEtiapine FUMARATE 100 MG TAB PO SCH (20:59)
[2024-04-18 06:30] VITALS: BP 166/92; TEMP 96.8; O2SAT 99
[2024-04-19 06:28] VITALS: BP 148/94; TEMP 97.6; O2SAT 100
[2024-04-19] MEDS: GEMTESA 75 MG PO SCH (08:22)
[2024-04-19 08:29] VITALS: BP 202/102
[2024-04-19] MEDS ORDERED: GEMTESA 75 MG PO SCH (09:00)
[2024-04-19 09:08] VITALS: BP 162/92
[2024-04-19 15:40] VITALS: BP 182/96; TEMP 97.5; O2SAT 97
[2024-04-19] MEDS: METOPROLOL SUCC *XL* 25MG TAB (TopROL *XL*) PO ONE (16:06)
[2024-04-19 18:36] VITALS: BP 160/92
[2024-04-19] MEDS: QUEtiapine FUMARATE 200 MG TAB PO SCH (20:19)
[2024-04-19 20:55] VITALS: BP 158/90
[2024-04-19] MEDS: CYCLOBENZAPRINE 10MG TABLET PO ONE (22:24)
[2024-04-20 06:40] VITALS: BP 160/88; TEMP 97.4; O2SAT 95
[2024-04-20 08:03] VITALS: BP 184/90
[2024-04-20 11:23] VITALS: BP 160/98
[2024-04-20] MEDS: METOPROLOL SUCC (TopROL XL) 50MG **XL** TAB PO SCH (11:24)
[2024-04-20] MEDS: PILL CUTTER 1 EACH XX PRN (15:21)
[2024-04-20] MEDS: DAPAGLIFLOZIN PROPANEDIOL 10MG TABLET (FARXIGA) PO SCH (15:21)
[2024-04-20 15:23] VITALS: BP 148/88; TEMP 97.7; O2SAT 97
[2024-04-20 16:06] LABS: HEMOGLOBIN A1c 6.5 % (4.0-6.0)
[2024-04-20 16:17] LABS: BLOOD UREA NITROGEN 16 MG/DL (9-23); CALCIUM LEVEL 8.9 MG/DL (8.5-10.1); CARBON DIOXIDE LEVEL 28 MMOL/L (20-31); CHLORIDE LEVEL 103 MMOL/L (98-107); CREATININE FOR GFR 0.66 MG/DL (0.70-1.30); GLOMERULAR FILTRATION RATE > 60.0 (>56); GLUCOSE, FASTING 204 MG/DL (60-100); POTASSIUM SERUM 4.1 MMOL/L (3.5-5.1); SODIUM LEVEL 140 MMOL/L (136-145)
[2024-04-21 06:38] VITALS: BP 140/88; TEMP 97.2
[2024-04-21 08:18] VITALS: BP 180/98
[2024-04-21] MEDS: lamoTRIgine 25MG TAB PO SCH (09:51)
[2024-04-21 11:48] VITALS: BP 166/90
[2024-04-21 15:08] VITALS: BP 168/84; TEMP 98.3; O2SAT 98
[2024-04-22] MEDS ORDERED: DAPAGLIFLOZIN PROPANEDIOL 10MG TABLET (FARXIGA) PO SCH (09:00)
[2024-04-22 16:45] VITALS: BP 137/77; TEMP 97.3; O2SAT 98
[2024-04-23 06:18] VITALS: BP 143/91; TEMP 97.4; O2SAT 99
[2024-04-23 12:30] LABS: BLOOD UREA NITROGEN 19 MG/DL (9-23); CALCIUM LEVEL 9.2 MG/DL (8.5-10.1); CARBON DIOXIDE LEVEL 30 MMOL/L (20-31); CHLORIDE LEVEL 102 MMOL/L (98-107); CREATININE FOR GFR 0.72 MG/DL (0.70-1.30); GLOMERULAR FILTRATION RATE > 60.0 (>56); GLUCOSE, FASTING 90 MG/DL (60-100); POTASSIUM SERUM 4.1 MMOL/L (3.5-5.1); SODIUM LEVEL 141 MMOL/L (136-145)
[2024-04-23 16:22] VITALS: BP 144/90; TEMP 97.3; O2SAT 97
[2024-04-23 17:04] LABS: KETONE, URINE AUTO RFX NEGATIVE (NEGATIVE); LEUKOCYTE ESTERASE UR AUTO RFX NEGATIVE (NEGATIVE); NITRITE, URINE AUTO RFX NEGATIVE (NEGATIVE); RBC, URINE AUTO RFX 0 /HPF (0-3); SQUAM EPITHELIAL CELL UR AURFX 0 /HPF (0-6); WBC, URINE AUTO RFX 0 /HPF (0-3)
[2024-04-23 18:56] LABS: BASO % 0.4 % (0.0-1.0); EOS # 0.3 10^3/uL (0.0-0.5); EOS % 3.1 % (0.0-3.0); HEMATOCRIT 41.9 % (42.0-52.0); HEMOGLOBIN 13.3 g/dl (13.5-17.5); LYMPH # 1.7 10^3/uL (1.5-5.0); MEAN CORPUSCULAR HEMOGLOBIN 24.6 pg (27.0-33.0); MEAN CORPUSCULAR HGB CONC 31.7 g/dl (32.0-36.5); MEAN CORPUSCULAR VOLUME 77.4 fl (80.0-96.0); MONO % 9.6 % (2.0-8.0); NEUTROPHILS # 6.9 10^3/uL (1.5-8.5); NEUTROPHILS % 69.5 % (36.0-66.0); PLATELET COUNT, AUTOMATED 301 10^3/uL (150-450); RED BLOOD COUNT 5.41 10^6/uL (4.30-6.10); WHITE BLOOD COUNT 9.9 10^3/uL (4.0-10.0)
[2024-04-23 19:32] LABS: ALKALINE PHOSPHATASE 107 U/L (40-129); ALT/SGPT 49 U/L (7.0-40); AST/SGOT 48 U/L (<34); BILIRUBIN,TOTAL 0.4 MG/DL (0.3-1.2); BLOOD UREA NITROGEN 19 MG/DL (9-23); CALCIUM LEVEL 8.9 MG/DL (8.5-10.1); CARBON DIOXIDE LEVEL 29 MMOL/L (20-31); CHLORIDE LEVEL 104 MMOL/L (98-107); CREATININE FOR GFR 0.82 MG/DL (0.70-1.30); GLOMERULAR FILTRATION RATE > 60.0 (>56); GLUCOSE, FASTING 158 MG/DL (60-100); SODIUM LEVEL 142 MMOL/L (136-145); TOTAL PROTEIN 6.8 G/DL (5.7-8.2)
[2024-04-24 08:50] VITALS: BP 160/88
[2024-04-24] MEDS ORDERED: HALOPERIDOL DECANOATE 100 MG/ML 1ML VIAL IM PRN (09:00)
[2024-04-24] MEDS: LORazepam 2 MG TAB PO ONE (15:27)
[2024-04-24 15:52] VITALS: BP 174/104; TEMP 97.1; O2SAT 99
[2024-04-25 06:28] VITALS: BP 160/98; TEMP 96.6; O2SAT 99
[2024-04-25 08:31] VITALS: BP 142/78
[2024-04-25 17:10] VITALS: BP 150/88; TEMP 97.4; O2SAT 98
[2024-04-25] MEDS: traZODone 100 MG TAB PO SCH (20:33)
[2024-04-25] MEDS: QUEtiapine FUMARATE 100 MG TAB PO SCH (20:33)
[2024-04-26 06:35] VITALS: BP 153/86; TEMP 97.3; O2SAT 98
[2024-04-26 08:27] VITALS: BP 150/79
[2024-04-26 15:15] VITALS: BP 146/90; TEMP 97.6; O2SAT 99
[2024-04-27 06:33] VITALS: BP 134/75; TEMP 97.5; O2SAT 97
[2024-04-27] MEDS: LORazepam 1 MG TAB PO SCH (08:35)
[2024-04-27 15:59] VITALS: BP 119/59; TEMP 97.6; O2SAT 97
[2024-04-28 06:38] VITALS: BP 153/80; TEMP 97.6; O2SAT 98
[2024-04-28 14:45] VITALS: BP 168/93; TEMP 97.3; O2SAT 99
[2024-04-29 16:18] VITALS: BP 135/78; TEMP 98.8; O2SAT 98
[2024-04-30 07:04] VITALS: BP 112/76; TEMP 97.3; O2SAT 99
[2024-04-30 14:54] VITALS: BP 111/64; TEMP 97.6; O2SAT 97
[2024-05-01 06:28] VITALS: BP 129/71; TEMP 98.4; O2SAT 98
[2024-05-01 08:51] VITALS: BP 124/71
[2024-05-01] MEDS ORDERED: FLUoxetine 20MG CAP PO SCH (09:00)
[2024-05-01] MEDS: SERTRALINE HCL 25 MG TABLET PO SCH (10:31)
[2024-05-01 15:46] VITALS: BP 134/66; TEMP 98.7; O2SAT 95
[2024-05-01] MEDS: QUEtiapine FUMARATE 100 MG TAB PO SCH (20:34)
[2024-05-02 06:47] VITALS: BP 112/70; TEMP 97.5; O2SAT 97
[2024-05-02 14:59] VITALS: BP 125/81; TEMP 97.8; O2SAT 97
[2024-05-03 06:16] VITALS: BP 160/88; TEMP 97.5; O2SAT 96
[2024-05-03] MEDS: HALOPERIDOL DECANOATE 100 MG/ML 1ML VIAL IM ONE (09:21)
[2024-05-03 17:20] VITALS: BP 109/71; TEMP 97.9; O2SAT 98
[2024-05-04 06:55] VITALS: BP 141/73; TEMP 97.6; O2SAT 97
[2024-05-04] MEDS: SERTRALINE HCL 50 MG TAB PO SCH (08:47)
[2024-05-04 16:54] VITALS: BP 111/64; TEMP 97.5; O2SAT 97
[2024-05-05] MEDS: lamoTRIgine 100MG TAB PO SCH (09:01)
[2024-05-05 17:26] VITALS: BP 109/56; TEMP 97.9; O2SAT 96
[2024-05-06 06:37] VITALS: BP 111/73; TEMP 97.3; O2SAT 97
[2024-05-06] MEDS: BENZTROPINE 1 MG TAB PO SCH (08:17)
[2024-05-06 15:35] VITALS: BP 116/64; TEMP 97.8; O2SAT 96
[2024-05-07 06:47] VITALS: BP 162/76; TEMP 97.1; O2SAT 95
[2024-05-07 16:12] VITALS: BP 90/62; TEMP 97.6; O2SAT 95
[2024-05-07 17:15] VITALS: BP 146/86
[2024-05-08 08:47] VITALS: BP 123/72
[2024-05-08] MEDS ORDERED: LIDOCAINE 5% (LIDODERM) PATCH TD PRN (11:15)
[2024-05-08 15:45] VITALS: BP 117/68; TEMP 97.7; O2SAT 96
[2024-05-08] MEDS: BENZTROPINE 2 MG TAB PO SCH (22:29)
[2024-05-09 06:56] VITALS: BP 142/87; TEMP 97.1; O2SAT 97
[2024-05-09 09:11] VITALS: BP 119/76
[2024-05-09 16:08] VITALS: BP 115/63; TEMP 97.8; O2SAT 96
[2024-05-10 06:33] VITALS: BP 152/92; TEMP 97.2; O2SAT 98
[2024-05-10 17:19] VITALS: BP 116/67; TEMP 96.9; O2SAT 97
[2024-05-11 06:27] VITALS: BP 130/79; TEMP 98; O2SAT 97
[2024-05-11 15:41] VITALS: BP 106/60; TEMP 97.4; O2SAT 97
[2024-05-12 15:05] VITALS: BP 130/75; TEMP 97.5; O2SAT 97
[2024-05-12] MEDS: QUEtiapine FUMARATE 100 MG TAB PO SCH (20:36)
[2024-05-13 06:51] VITALS: TEMP 98; O2SAT 95
[2024-05-13] MEDS: lamoTRIgine 100MG TAB PO SCH (08:12)
[2024-05-13] MEDS: SERTRALINE HCL 25 MG TABLET PO SCH (08:12)
[2024-05-13 16:32] VITALS: BP 102/59; TEMP 97.4; O2SAT 99
[2024-05-13 21:39] VITALS: BP 102/59; TEMP 97.4; O2SAT 99
[2024-05-14 06:40] VITALS: BP 133/92; TEMP 97.3; O2SAT 99
[2024-05-14 08:02] VITALS: BP 114/73
[2024-05-14 16:02] VITALS: BP 109/61; TEMP 97.8; O2SAT 99
[2024-05-15 06:37] VITALS: BP 117/67; TEMP 97.9; O2SAT 97
[2024-05-15 08:41] VITALS: BP 82/52
[2024-05-15 09:00] VITALS: BP 82/52
[2024-05-15 09:46] VITALS: BP 84/50
[2024-05-15 11:17] LABS: HEMATOCRIT 46.3 % (42.0-52.0); HEMOGLOBIN 14.6 g/dl (13.5-17.5); MEAN CORPUSCULAR HEMOGLOBIN 24.8 pg (27.0-33.0); MEAN CORPUSCULAR HGB CONC 31.5 g/dl (32.0-36.5); MEAN CORPUSCULAR VOLUME 78.6 fl (80.0-96.0); PLATELET COUNT, AUTOMATED 298 10^3/uL (150-450); RED BLOOD COUNT 5.89 10^6/uL (4.30-6.10); WHITE BLOOD COUNT 16.2 10^3/uL (4.0-10.0)
[2024-05-15] MEDS ORDERED: NS (Normal Saline) 0.9% 1,000 ML IV ONE (11:25)
[2024-05-15 11:27] LABS: ERYTHROCYTE SEDIMENTATION RATE 26 mm/hr (0-20)
[2024-05-15] MEDS ORDERED: LAMO100T80 PO (11:29)
[2024-05-15] MEDS ORDERED: QUET100T2 PO (11:29)
[2024-05-15] MEDS ORDERED: TRAZ-257 PO (11:29)
[2024-05-15] MEDS ORDERED: ATIV1TAB7 PO (11:29)
[2024-05-15] MEDS ORDERED: DIPH-435 PO (11:29)
[2024-05-15] MEDS ORDERED: HALO10TA20 PO (11:29)
[2024-05-15] MEDS ORDERED: ISOVUE-370 76% 100ML VIAL As Ordered ONE (11:37)
[2024-05-15 11:52] VITALS: BP 80/60; TEMP 97.4; O2SAT 99
[2024-05-15 11:57] LABS: BLOOD UREA NITROGEN 28 MG/DL (9-23); C REACTIVE PROTEIN QUANTITATIV < 0.50 MG/DL (<1.0); CALCIUM LEVEL 9.8 MG/DL (8.5-10.1); CARBON DIOXIDE LEVEL 23 MMOL/L (20-31); CHLORIDE LEVEL 109 MMOL/L (98-107); CREATININE FOR GFR 1.23 MG/DL (0.70-1.30); GLOMERULAR FILTRATION RATE > 60.0 (>56); GLUCOSE, FASTING 141 MG/DL (60-100); POTASSIUM SERUM 4.2 MMOL/L (3.5-5.1); SODIUM LEVEL 142 MMOL/L (136-145)
[2024-05-15] MEDS ORDERED: QUEtiapine FUMARATE 100 MG TAB PO SCH (21:00)
== END 2024-05-15 12:54 | disposition home or self-care (01) | DRG 885 ==
LOC: M ED 11:30 → M ED INP 14:06 → M PSY 15:06 → UNDODISIN 05-15 12:54
PROVIDERS: ADMIT Psychiatry & Neurology Psychiatry; ATTEND Psychiatry & Neurology Psychiatry
DX: F31.5 Bipolar disorder, current episode depressed, severe, with psychotic features (principal); Z91.148 Patient's other noncompliance with medication regimen for other reason; Z88.0 Allergy status to penicillin; Z91.040 Latex allergy status; Z88.8 Allergy status to other drugs, medicaments and biological substances; Z79.899 Other long term (current) drug therapy; I10 Essential (primary) hypertension; I25.10 Atherosclerotic heart disease of native coronary artery without angina pectoris; E78.5 Hyperlipidemia, unspecified; E11.9 Type 2 diabetes mellitus without complications; E03.9 Hypothyroidism, unspecified; F41.9 Anxiety disorder, unspecified; N40.0 Benign prostatic hyperplasia without lower urinary tract symptoms; E55.9 Vitamin D deficiency, unspecified; N32.81 Overactive bladder; Z87.891 Personal history of nicotine dependence

== ENCOUNTER 2024-05-15 12:18 | Inpatient (IN) | payer MEDICARE, MEDICAID ==
[2024-05-15] VITALS (7 sets, daily range): BP systolic 87–123; BP diastolic 55–89; TEMP 97.3–97.8; O2SAT 90–97
[~2024-05-15 12:18] MED LIST changes: +DIPH-435 PO; +HYDR12CA PO; +IBUP-1114 PO; +JARD1TAB3 PO; +MULT-90 PO; +VIBE75TA PO
[2024-05-15] MEDS ORDERED: diphenhydrAMINE 25MG CAP PO PRN (13:10)
[2024-05-15] MEDS ORDERED: GLUCOSE 4 GM CHEW PO PRN (13:20)
[2024-05-15] MEDS ORDERED: DEXTROSE 50% 50ML SYRINGE IV PRN (13:20)
[2024-05-15] MEDS ORDERED: GLUCAGON INJ 1MG VIAL SC PRN (13:20)
[2024-05-15] MEDS: LR 1,000 ML IV ONE (13:26)
[2024-05-15] MEDS ORDERED: ISOVUE-370 76% 100ML VIAL As Ordered ONE (13:52)
[2024-05-15 14:43] LABS: HEMATOCRIT 41.2 % (42.0-52.0); HEMOGLOBIN 12.7 g/dl (13.5-17.5); MEAN CORPUSCULAR HEMOGLOBIN 24.1 pg (27.0-33.0); MEAN CORPUSCULAR HGB CONC 30.8 g/dl (32.0-36.5); MEAN CORPUSCULAR VOLUME 78.3 fl (80.0-96.0); PLATELET COUNT, AUTOMATED 222 10^3/uL (150-450); RED BLOOD COUNT 5.26 10^6/uL (4.30-6.10); WHITE BLOOD COUNT 12.2 10^3/uL (4.0-10.0)
[2024-05-15 15:12] LABS: THYROID STIMULATING HORMONE 1.275 uIU/ML (0.55-4.78)
[2024-05-15 15:13] LABS: FREE T4 1.15 NG/DL (0.89-1.76)
[2024-05-15 15:14] LABS: CALCIUM LEVEL 9.2 MG/DL (8.5-10.1); CREATININE FOR GFR 1.37 MG/DL (0.70-1.30); GLOMERULAR FILTRATION RATE 57.4 (>56); POTASSIUM SERUM 4.2 MMOL/L (3.5-5.1)
[2024-05-15] MEDS: INSULIN LISPRO (NovoLOG) PER UNIT SC SCH ×2 (17:30→20:14)
[2024-05-15] MEDS: LR 1,000 ML IV SCH (18:55)
[2024-05-15] MEDS: BENZTROPINE 2 MG TAB PO SCH (20:48)
[2024-05-15] MEDS: QUEtiapine FUMARATE 100 MG TAB PO SCH (20:48)
[2024-05-15] MEDS: LORazepam 1 MG TAB PO SCH (20:49)
[2024-05-15] MEDS ORDERED: traZODone 100 MG TAB PO SCH (21:00)
[2024-05-15] MEDS ORDERED: QUEtiapine FUMARATE 50MG TAB PO SCH (21:00)
[2024-05-15] MEDS ORDERED: LORazepam 2 MG TAB PO SCH (21:00)
[2024-05-15] MEDS ORDERED: LORazepam 1 MG TAB PO SCH (21:00)
[2024-05-16] VITALS: BP 123/72; TEMP 98.4; O2SAT 95
[2024-05-16 04:00] VITALS: BP 126/58; TEMP 97.6; O2SAT 94
[2024-05-16 05:08] LABS: HEMATOCRIT 39.9 % (42.0-52.0); HEMOGLOBIN 12.7 g/dl (13.5-17.5); MEAN CORPUSCULAR HEMOGLOBIN 24.9 pg (27.0-33.0); MEAN CORPUSCULAR HGB CONC 31.8 g/dl (32.0-36.5); MEAN CORPUSCULAR VOLUME 78.2 fl (80.0-96.0); PLATELET COUNT, AUTOMATED 238 10^3/uL (150-450); WHITE BLOOD COUNT 11.6 10^3/uL (4.0-10.0)
[2024-05-16 05:42] LABS: BLOOD UREA NITROGEN 24 MG/DL (9-23); CALCIUM LEVEL 7.6 MG/DL (8.5-10.1); CARBON DIOXIDE LEVEL 21 MMOL/L (20-31); CHLORIDE LEVEL 111 MMOL/L (98-107); CREATININE FOR GFR 0.81 MG/DL (0.70-1.30); GLOMERULAR FILTRATION RATE > 60.0 (>56); GLUCOSE, FASTING 114 MG/DL (60-100); SODIUM LEVEL 141 MMOL/L (136-145)
[2024-05-16] MEDS: OMEPRAZOLE 20MG CAP PO SCH (08:42)
[2024-05-16] MEDS: ATORVASTATIN 20 MG TAB PO SCH (08:43)
[2024-05-16] MEDS: LOPERAMIDE 2 MG CAPLET PO PRN (08:43)
[2024-05-16] MEDS: lamoTRIgine 100MG TAB PO SCH (08:43)
[2024-05-16 08:46] VITALS: BP 130/87; TEMP 97.7; O2SAT 96
[2024-05-16] MEDS ORDERED: FLUBLOK(EGGFREE) TRIVAL(24-25) VACCINE PF 0.5ML SYRINGE 18YRS & OLDER IM.IMMUN ONE (12:00)
== END 2024-05-16 13:21 | disposition home or self-care (01) | DRG 392 ==
LOC: M ICU 12:45
PROVIDERS: ADMIT Student in an Organized Health Care Education/Training Program; ATTEND Internal Medicine
DX: K52.9 Noninfective gastroenteritis and colitis, unspecified (principal); N17.9 Acute kidney failure, unspecified; I10 Essential (primary) hypertension; E03.9 Hypothyroidism, unspecified; E11.9 Type 2 diabetes mellitus without complications; F31.9 Bipolar disorder, unspecified; I25.10 Atherosclerotic heart disease of native coronary artery without angina pectoris; E78.5 Hyperlipidemia, unspecified; N32.81 Overactive bladder; N40.0 Benign prostatic hyperplasia without lower urinary tract symptoms; I95.9 Hypotension, unspecified; Z79.84 Long term (current) use of oral hypoglycemic drugs; K76.0 Fatty (change of) liver, not elsewhere classified; F41.9 Anxiety disorder, unspecified; Z88.0 Allergy status to penicillin; Z91.040 Latex allergy status; Z88.8 Allergy status to other drugs, medicaments and biological substances; Z79.899 Other long term (current) drug therapy

== ENCOUNTER → 2024-05-21 | Outpatient (REF) | payer MEDICARE, MEDICAID | LOC: M LAB REF 17:46 | PROVIDERS: ATTEND Physician Assistant Medical | DX: B34.9 Viral infection, unspecified (principal) ==

== ENCOUNTER 2024-05-25 14:16 | Emergency (ER) | payer MEDICARE, MEDICAID ==
[~2024-05-25] VITALS: Ht 180.3 cm; Wt 103.1 kg
[2024-05-25 15:15] LABS: HEMATOCRIT 39.3 % (42.0-52.0); HEMOGLOBIN 12.4 g/dl (13.5-17.5); MEAN CORPUSCULAR HEMOGLOBIN 24.3 pg (27.0-33.0); MEAN CORPUSCULAR HGB CONC 31.6 g/dl (32.0-36.5); MEAN CORPUSCULAR VOLUME 77.1 fl (80.0-96.0); PLATELET COUNT, AUTOMATED 236 10^3/uL (150-450); WHITE BLOOD COUNT 9.7 10^3/uL (4.0-10.0)
[2024-05-25 15:35] LABS: ETHYL ALCOHOL (ETHANOL) < 0.003 % (0.000-0.010)
[2024-05-25 15:37] LABS: ALBUMIN 3.6 G/DL (3.2-5.2); ALKALINE PHOSPHATASE 132 U/L (40-129); ALT/SGPT 33 U/L (7.0-40); AST/SGOT 25 U/L (<34); BILIRUBIN,DIRECT 0.1 MG/DL (<0.4); BILIRUBIN,TOTAL 0.4 MG/DL (0.3-1.2); BLOOD UREA NITROGEN 14 MG/DL (9-23); CALCIUM LEVEL 8.2 MG/DL (8.5-10.1); CARBON DIOXIDE LEVEL 25 MMOL/L (20-31); CHLORIDE LEVEL 102 MMOL/L (98-107); CREATININE FOR GFR 0.62 MG/DL (0.70-1.30); GLOMERULAR FILTRATION RATE > 60.0 (>56); GLUCOSE, FASTING 261 MG/DL (60-100); POTASSIUM SERUM 3.8 MMOL/L (3.5-5.1); SALICYLATE LEVEL < 3.0 MG/DL (<30); SODIUM LEVEL 139 MMOL/L (136-145); TOTAL PROTEIN 6.7 G/DL (5.7-8.2)
[2024-05-25 15:38] LABS: THYROID STIMULATING HORMONE 1.114 uIU/ML (0.55-4.78)
[2024-05-25 15:58] LABS: AMPHETAMINES LEVEL URINE NEGATIVE (NEGATIVE); BARBITURATES URINE NEGATIVE (NEGATIVE); BENZODIAZEPINES URINE NEGATIVE (NEGATIVE); CANNABINOIDS URINE NEGATIVE (NEGATIVE); COCAINE METABOLITE URINE NEGATIVE (NEGATIVE); METHADONE URINE NEGATIVE (NEGATIVE); OPIATES URINE NEGATIVE (NEGATIVE); PHENCYCLIDINE URINE NEGATIVE (NEGATIVE)
[2024-05-25] MEDS: LORazepam 2 MG TAB PO STA (16:49)
[2024-05-25] MEDS ORDERED: LAMO100T3 PO (19:14)
[2024-05-25] MEDS ORDERED: BENA25CA4 PO (19:14)
[2024-05-25] MEDS ORDERED: QUET100T2 PO (19:14)
[2024-05-25] MEDS ORDERED: TRAZ-189 PO (19:14)
[2024-05-25] MEDS ORDERED: HALO10TA2 PO (19:14)
[2024-05-25] MEDS ORDERED: LOSA50TA28 PO (19:16)
[2024-05-25] MEDS ORDERED: CLIN-250 PO (19:16)
[2024-05-25] MEDS ORDERED: IBUP-1022 PO (19:16)
[2024-05-25] MEDS ORDERED: HOME MED LIST COMPLETE! XX SCH (19:20)
[2024-05-25] MEDS: ATORVASTATIN 20 MG TAB PO SCH (21:44)
[2024-05-25] MEDS: CLINDAMYCIN 150MG CAPSULE PO SCH (21:45)
[2024-05-25] MEDS: BENZTROPINE 2 MG TAB PO SCH (21:50)
[2024-05-25] MEDS: traZODone 100 MG TAB PO SCH (22:02)
[2024-05-25] MEDS: QUEtiapine FUMARATE 100 MG TAB PO SCH (22:02)
[2024-05-25 23:27] VITALS: TEMP 97.3
[2024-05-26] MEDS: ACETAMINOPHEN 500 MG TAB PO ONE (03:12)
[2024-05-26 05:36] VITALS: BP 154/92; O2SAT 98
[2024-05-26] MEDS: LEVOTHYROXINE 100MCG TABLET (0.1MG) PO SCH (06:00)
[2024-05-26] MEDS: MULTIVITAMINS/MINERALS THERAP 1 TAB PO SCH (08:50)
[2024-05-26] MEDS: lamoTRIgine 100MG TAB PO SCH (08:50)
[2024-05-26] MEDS: OMEPRAZOLE 20MG CAP PO SCH (08:50)
[2024-05-26] MEDS: TAMSULOSIN 0.4 MG CAP PO SCH (08:51)
[2024-05-26] MEDS: LORazepam 2 MG TAB PO SCH (08:51)
[2024-05-26] MEDS: LOSARTAN 50MG TABLET PO SCH (08:51)
[2024-05-26 09:31] LABS: KETONE, URINE AUTO RFX NEGATIVE (NEGATIVE); LEUKOCYTE ESTERASE UR AUTO RFX NEGATIVE (NEGATIVE); NITRITE, URINE AUTO RFX NEGATIVE (NEGATIVE); RBC, URINE AUTO RFX 0 /HPF (0-3); SQUAM EPITHELIAL CELL UR AURFX 0 /HPF (0-6); WBC, URINE AUTO RFX 0 /HPF (0-3)
== END 2024-05-26 16:45 | disposition home or self-care (01) ==
LOC: M ED 14:16
DX: F31.9 Bipolar disorder, unspecified (principal); Z88.0 Allergy status to penicillin; Z88.8 Allergy status to other drugs, medicaments and biological substances; Z91.040 Latex allergy status; E11.9 Type 2 diabetes mellitus without complications; I10 Essential (primary) hypertension; E78.5 Hyperlipidemia, unspecified; I25.10 Atherosclerotic heart disease of native coronary artery without angina pectoris; E03.9 Hypothyroidism, unspecified; F41.9 Anxiety disorder, unspecified; Z79.899 Other long term (current) drug therapy

== ENCOUNTER 2024-06-05 15:28 | Inpatient (IN) | payer MEDICARE, MEDICAID ==
[~2024-06-05] VITALS: Ht 180.3 cm; Wt 103.8 kg
[~2024-06-05 15:28] MED LIST changes: +BENA25CA4 PO; +CLIN-250 PO; +HALO10TA2 PO; +LAMO100T3 PO; +TRAZ-189 PO
[2024-06-05 17:30] LABS: HEMATOCRIT 40.8 % (42.0-52.0); HEMOGLOBIN 13.2 g/dl (13.5-17.5); MEAN CORPUSCULAR HEMOGLOBIN 24.8 pg (27.0-33.0); MEAN CORPUSCULAR HGB CONC 32.4 g/dl (32.0-36.5); MEAN CORPUSCULAR VOLUME 76.5 fl (80.0-96.0); PLATELET COUNT, AUTOMATED 402 10^3/uL (150-450); RED BLOOD COUNT 5.33 10^6/uL (4.30-6.10); WHITE BLOOD COUNT 14.8 10^3/uL (4.0-10.0)
[2024-06-05 17:58] LABS: ETHYL ALCOHOL (ETHANOL) < 0.003 % (0.000-0.010)
[2024-06-05 17:59] LABS: KETONE, URINE AUTO RFX NEGATIVE (NEGATIVE); LEUKOCYTE ESTERASE UR AUTO RFX NEGATIVE (NEGATIVE); MUCUS, URINE RFX SMALL (NEGATIVE); NITRITE, URINE AUTO RFX NEGATIVE (NEGATIVE); RBC, URINE AUTO RFX 0 /HPF (0-3); SQUAM EPITHELIAL CELL UR AURFX 0 /HPF (0-6); WBC, URINE AUTO RFX 0 /HPF (0-3)
[2024-06-05 18:00] LABS: SALICYLATE LEVEL < 3.0 MG/DL (<30)
[2024-06-05 18:01] LABS: ALBUMIN 3.8 G/DL (3.2-5.2); ALKALINE PHOSPHATASE 126 U/L (40-129); ALT/SGPT 74 U/L (7.0-40); AST/SGOT 45 U/L (<34); BILIRUBIN,DIRECT 0.1 MG/DL (<0.4); BILIRUBIN,TOTAL 0.3 MG/DL (0.3-1.2); BLOOD UREA NITROGEN 18 MG/DL (9-23); CALCIUM LEVEL 9.1 MG/DL (8.5-10.1); CARBON DIOXIDE LEVEL 25 MMOL/L (20-31); CHLORIDE LEVEL 104 MMOL/L (98-107); CREATININE FOR GFR 0.71 MG/DL (0.70-1.30); GLOMERULAR FILTRATION RATE > 60.0 (>56); GLUCOSE, FASTING 181 MG/DL (60-100); POTASSIUM SERUM 4.2 MMOL/L (3.5-5.1); SODIUM LEVEL 142 MMOL/L (136-145); TOTAL PROTEIN 7.2 G/DL (5.7-8.2)
[2024-06-05 18:04] LABS: THYROID STIMULATING HORMONE 1.534 uIU/ML (0.55-4.78)
[2024-06-05 18:21] LABS: BASO # 0.1 10^3/uL (0.0-0.2); BASO % 0.5 % (0.0-1.0); EOS # 0.4 10^3/uL (0.0-0.5); LYMPH # 2.5 10^3/uL (1.5-5.0); LYMPH % 17.3 % (24.0-44.0); MONO # 1.2 10^3/uL (0.0-0.8); MONO % 8.1 % (2.0-8.0); NEUTROPHILS # 10.3 10^3/uL (1.5-8.5); NEUTROPHILS % 70.2 % (36.0-66.0)
[2024-06-05 18:49] LABS: AMPHETAMINES LEVEL URINE NEGATIVE (NEGATIVE); BARBITURATES URINE NEGATIVE (NEGATIVE); CANNABINOIDS URINE NEGATIVE (NEGATIVE); PHENCYCLIDINE URINE NEGATIVE (NEGATIVE)
[2024-06-05 18:50] LABS: BENZODIAZEPINES URINE NEGATIVE (NEGATIVE); COCAINE METABOLITE URINE NEGATIVE (NEGATIVE); METHADONE URINE NEGATIVE (NEGATIVE); OPIATES URINE NEGATIVE (NEGATIVE)
[2024-06-05] MEDS ORDERED: QUET150T18 PO (19:39)
[2024-06-05] MEDS ORDERED: HOME MED LIST COMPLETE! XX SCH (19:50)
[2024-06-05] MEDS: diphenhydrAMINE 50MG/ML VIAL IM STA (19:55)
[2024-06-05] MEDS: HALOPERIDOL LACTATE 5MG/ML VIAL IM STA (19:55)
[2024-06-05] MEDS ORDERED: DOCUSATE SODIUM 100MG CAPSULE PO PRN (20:50)
[2024-06-05] MEDS: QUEtiapine FUMARATE 50MG TAB PO SCH (21:16)
[2024-06-05] MEDS: traZODone 100 MG TAB PO SCH (21:16)
[2024-06-05] MEDS: ATORVASTATIN 20 MG TAB PO SCH (21:16)
[2024-06-05] MEDS: LOSARTAN 50MG TABLET PO SCH (21:17)
[2024-06-05] MEDS: LORazepam 2 MG TAB PO STA (21:17)
[2024-06-05] MEDS: CEPACOL LOZENGE MT STA (21:32)
[2024-06-05] MEDS: BENZTROPINE 2 MG TAB PO SCH (21:32)
[2024-06-06] MEDS: CEPACOL LOZENGE MT STA (00:41)
[2024-06-06] MEDS ORDERED: diphenhydrAMINE 25MG CAP PO PRN (08:05)
[2024-06-06] MEDS ORDERED: LORazepam 2 MG TAB PO PRN ×2 (08:05→16:50)
[2024-06-06] MEDS: NICOTINE 14 MG/24 HR TRANSDERMAL TD SCH (09:00)
[2024-06-06] MEDS: MULTIVITAMINS/MINERALS THERAP 1 TAB PO SCH (09:00)
[2024-06-06] MEDS: VITAMIN D 1,000 INTERNATIONAL UNITS TABLET PO SCH (10:36)
[2024-06-06] MEDS: TAMSULOSIN 0.4 MG CAP PO SCH (10:36)
[2024-06-06] MEDS: LEVOTHYROXINE 100MCG TABLET (0.1MG) PO SCH (10:37)
[2024-06-06] MEDS: OMEPRAZOLE 20MG CAP PO SCH (10:37)
[2024-06-06] MEDS: lamoTRIgine 100MG TAB PO SCH (10:37)
[2024-06-06] MEDS: IBUPROFEN 600MG TAB PO PRN (10:38)
[2024-06-06] MEDS ORDERED: GLUCOSE 4 GM CHEW PO PRN (11:05)
[2024-06-06] MEDS ORDERED: DEXTROSE 50% 50ML SYRINGE IV PRN (11:05)
[2024-06-06] MEDS ORDERED: GLUCAGON INJ 1MG VIAL SC PRN (11:05)
[2024-06-06] MEDS ORDERED: INSULIN LISPRO (NovoLOG) PER UNIT SC SCH ×2 (12:00→21:00)
[2024-06-06] MEDS: JARDIANCE 25 MG PO SCH (13:58)
[2024-06-06] MEDS ORDERED: MAALOX 30 ML SUSP *UDC PO PRN (14:25)
[2024-06-06] MEDS ORDERED: LORazepam 1 MG TAB PO PRN (14:25)
[2024-06-06 15:39] VITALS: BP 125/74; TEMP 97.2; O2SAT 99
[2024-06-06 18:07] VITALS: BP 125/74
[2024-06-06] MEDS: THIAMINE 100 MG TAB PO SCH (20:06)
[2024-06-06] MEDS: traZODone 50 MG TAB PO PRN (20:06)
[2024-06-06] MEDS: ATORVASTATIN 20 MG TAB PO SCH (20:06)
[2024-06-06] MEDS: LOSARTAN 50MG TABLET PO SCH (20:06)
[2024-06-06] MEDS: ACETAMINOPHEN 325 MG TAB PO PRN (22:54)
[2024-06-06] MEDS: diphenhydrAMINE 25MG CAP PO PRN (23:06)
[2024-06-07] MEDS: OLANZapine 5 MG TAB PO PRN (01:44)
[2024-06-07] MEDS: LORazepam 1 MG TAB PO ONE (02:05)
[2024-06-07] MEDS: LEVOTHYROXINE 100MCG TABLET (0.1MG) PO SCH (05:31)
[2024-06-07 06:00] VITALS: BP 159/91
[2024-06-07 06:35] VITALS: BP 158/91; TEMP 96.7; O2SAT 95
[2024-06-07 08:32] VITALS: BP 152/88
[2024-06-07] MEDS: TAMSULOSIN 0.4 MG CAP PO SCH (08:35)
[2024-06-07] MEDS: FOLIC ACID 1MG TAB PO SCH (08:38)
[2024-06-07] MEDS: VITAMIN D 1,000 INTERNATIONAL UNITS TABLET PO SCH (08:39)
[2024-06-07] MEDS: OMEPRAZOLE 20MG CAP PO SCH (08:39)
[2024-06-07] MEDS ORDERED: VITAMIN D (CHOLECALCIFEROL) 400 INTERNATIONAL UNITS TAB PO SCH (09:00)
[2024-06-07] MEDS: lamoTRIgine 100MG TAB PO SCH (09:15)
[2024-06-07] MEDS: BENZTROPINE 2 MG TAB PO SCH (09:15)
[2024-06-07] MEDS: LORazepam 2 MG TAB PO PRN (10:06)
[2024-06-07] MEDS: CEPACOL LOZENGE PO PRN (17:07)
[2024-06-07] MEDS: traZODone 100 MG TAB PO SCH (20:22)
[2024-06-07] MEDS: IBUPROFEN 600MG TAB PO PRN (20:55)
[2024-06-08 06:30] VITALS: BP 160/104; TEMP 97.1; O2SAT 97
[2024-06-08] MEDS: CEPACOL LOZENGE PO PRN (09:15)
[2024-06-08 16:48] VITALS: BP 168/102; TEMP 97.1; O2SAT 98
[2024-06-08] MEDS: diphenhydrAMINE 25MG CAP PO PRN (20:04)
[2024-06-09 06:53] VITALS: BP 156/88; TEMP 97.3; O2SAT 95
[2024-06-09 09:03] VITALS: BP 170/90
[2024-06-09] MEDS: lamoTRIgine 25MG TAB PO SCH (09:09)
[2024-06-09] MEDS: lamoTRIgine 100MG TAB PO SCH (09:10)
[2024-06-09] MEDS: LIDOCAINE 5% (LIDODERM) PATCH TD SCH (11:17)
[2024-06-09 15:16] VITALS: BP 131/78; TEMP 98.9; O2SAT 95
[2024-06-10 06:03] VITALS: BP 128/85; TEMP 97.3; O2SAT 98
[2024-06-10 16:22] VITALS: BP 161/84; TEMP 97.3; O2SAT 95
[2024-06-10] MEDS: FLUTICASONE PROP 0.05% NASAL SPRAY 16 GM (FLONASE) NARES SCH (20:17)
[2024-06-10] MEDS: ALBUTEROL 90 MCG/ACT 8GM HFA INHALER INH PRN (21:15)
[2024-06-11 06:48] VITALS: BP 160/82; TEMP 97.5; O2SAT 99
[2024-06-11] MEDS: **hydrALAZINE** 50 MG TAB PO PRN (16:44)
[2024-06-11 16:46] VITALS: BP 162/104; TEMP 97.5; O2SAT 97
[2024-06-12 06:31] VITALS: BP 158/90; TEMP 97.1; O2SAT 97
[2024-06-12 15:16] VITALS: BP 169/95; TEMP 97.6; O2SAT 96
[2024-06-12] MEDS: QUEtiapine FUMARATE 100 MG TAB PO SCH (20:48)
[2024-06-13 06:36] VITALS: BP 122/66; TEMP 97; O2SAT 96
[2024-06-13 08:59] VITALS: BP 114/62
[2024-06-13] MEDS: BENZONATATE 100MG CAPSULE PO SCH (10:07)
[2024-06-13] MEDS: guaiFENesin ER TABLET 600 MG TAB PO SCH (10:20)
[2024-06-13 10:36] LABS: BASO % 0.5 % (0.0-1.0); EOS # 0.4 10^3/uL (0.0-0.5); HEMATOCRIT 38.1 % (42.0-52.0); HEMOGLOBIN 11.8 g/dl (13.5-17.5); LYMPH # 1.6 10^3/uL (1.5-5.0); LYMPH % 19.6 % (24.0-44.0); MEAN CORPUSCULAR HEMOGLOBIN 24.2 pg (27.0-33.0); MEAN CORPUSCULAR VOLUME 78.2 fl (80.0-96.0); MONO # 0.7 10^3/uL (0.0-0.8); MONO % 8.9 % (2.0-8.0); NEUTROPHILS # 5.2 10^3/uL (1.5-8.5); NEUTROPHILS % 65.2 % (36.0-66.0); PLATELET COUNT, AUTOMATED 282 10^3/uL (150-450); RED BLOOD COUNT 4.87 10^6/uL (4.30-6.10)
[2024-06-13] MEDS: DOCUSATE SODIUM 100MG CAPSULE PO PRN (14:34)
[2024-06-13] MEDS: MOM 30ML SUSPENSION UDC PO PRN (14:34)
[2024-06-13 15:19] VITALS: BP 145/71; TEMP 98.1; O2SAT 98
[2024-06-14 06:17] VITALS: BP 151/88; TEMP 96.9; O2SAT 95
[2024-06-14 18:20] VITALS: BP 121/70; TEMP 97.6
[2024-06-14] MEDS: QUEtiapine FUMARATE 50MG TAB PO SCH (22:24)
[2024-06-15 06:42] VITALS: BP 137/75; TEMP 96.9; O2SAT 98
[2024-06-15 16:42] VITALS: BP 146/86; TEMP 97.7; O2SAT 97
[2024-06-16 06:53] VITALS: BP 152/98; TEMP 97.3; O2SAT 98
[2024-06-16 17:29] VITALS: BP 153/96; TEMP 97.2; O2SAT 98
[2024-06-17 06:42] VITALS: BP 160/80; TEMP 97.3; O2SAT 98
[2024-06-17] MEDS: lamoTRIgine 100MG TAB PO SCH (08:36)
[2024-06-17] MEDS ORDERED: lamoTRIgine 100MG TAB PO SCH (09:00)
[2024-06-17 15:55] VITALS: BP 160/92; TEMP 97.6; O2SAT 96
[2024-06-18 06:21] VITALS: BP 128/77; TEMP 96.8; O2SAT 99
[2024-06-18 15:53] VITALS: BP 162/80; TEMP 97.1; O2SAT 96
[2024-06-19 06:23] VITALS: BP 149/76; TEMP 96.8; O2SAT 96
[2024-06-19 08:29] VITALS: BP 140/78
[2024-06-19 16:47] VITALS: BP 166/95; TEMP 97.6; O2SAT 96
[2024-06-20 06:56] VITALS: BP 140/81; TEMP 97; O2SAT 97
[2024-06-20 09:23] VITALS: BP 142/91
[2024-06-20] MEDS ORDERED: POLYVINYL ALCOHOL OPHTH SOLN 15ML (LIQUITEARS) OU PRN (11:00)
[2024-06-20 15:42] VITALS: BP 131/74; TEMP 97.9; O2SAT 94
[2024-06-21 06:41] VITALS: BP 123/79; TEMP 97.5; O2SAT 99
[2024-06-21 08:08] VITALS: BP 143/80
[2024-06-21 16:58] VITALS: BP 140/75; TEMP 97.8; O2SAT 97
[2024-06-22 06:27] VITALS: BP 136/86; TEMP 97.6; O2SAT 99
[2024-06-22 16:00] VITALS: BP 160/90; TEMP 97.6; O2SAT 96
[2024-06-23 06:57] VITALS: BP 147/89; TEMP 97.1; O2SAT 97
[2024-06-23 17:37] VITALS: BP 162/81; TEMP 97.4; O2SAT 97
[2024-06-24 06:53] VITALS: BP 120/70; TEMP 97.5; O2SAT 98
[2024-06-24 15:51] VITALS: BP 141/75; TEMP 97.4; O2SAT 96
[2024-06-25 06:37] VITALS: BP 142/92; TEMP 97; O2SAT 97
[2024-06-25 08:45] VITALS: BP 153/84
[2024-06-25] MEDS: HALOPERIDOL DECANOATE 100 MG/ML 1ML VIAL IM ONE (10:08)
[2024-06-25 15:04] VITALS: BP 180/100; TEMP 97.9; O2SAT 98
[2024-06-25 16:02] VITALS: TEMP 97.9; O2SAT 98
[2024-06-25 17:02] VITALS: BP 160/98
[2024-06-26 06:57] VITALS: BP 154/100; TEMP 97.1; O2SAT 96
[2024-06-26 08:07] VITALS: BP 154/88
[2024-06-26 15:36] VITALS: BP 182/98; TEMP 97.5; O2SAT 99
[2024-06-27 06:27] VITALS: BP 161/62; TEMP 97; O2SAT 100
[2024-06-27 08:16] VITALS: BP 149/80
[2024-06-27] MEDS: QUEtiapine FUMARATE 50MG TAB PO SCH (09:20)
[2024-06-27 15:15] VITALS: BP 170/84; TEMP 98.4; O2SAT 96
[2024-06-27 17:11] VITALS: BP 114/66; TEMP 96.9; O2SAT 95
[2024-06-27] MEDS: QUEtiapine FUMARATE 200 MG TAB PO SCH (21:10)
[2024-06-28 06:23] VITALS: BP 135/74; TEMP 97.1; O2SAT 98
[2024-06-28 15:31] VITALS: BP 150/92; TEMP 97.6; O2SAT 96
[2024-06-29 06:39] VITALS: BP 135/80; TEMP 97; O2SAT 97
[2024-06-29 08:21] VITALS: BP 139/81
[2024-06-29] MEDS ORDERED: QUEtiapine FUMARATE 100 MG TAB PO SCH (09:00)
[2024-06-29] MEDS: QUEtiapine FUMARATE 50MG TAB PO ONE (09:06)
[2024-06-29 12:14] LABS: BASO % 0.4 % (0.0-1.0); EOS # 0.6 10^3/uL (0.0-0.5); EOS % 6.1 % (0.0-3.0); HEMATOCRIT 36.4 % (42.0-52.0); HEMOGLOBIN 11.4 g/dl (13.5-17.5); LYMPH # 1.7 10^3/uL (1.5-5.0); LYMPH % 18.7 % (24.0-44.0); MEAN CORPUSCULAR HEMOGLOBIN 23.8 pg (27.0-33.0); MEAN CORPUSCULAR HGB CONC 31.3 g/dl (32.0-36.5); MEAN CORPUSCULAR VOLUME 76.2 fl (80.0-96.0); MONO # 0.9 10^3/uL (0.0-0.8); MONO % 9.6 % (2.0-8.0); NEUTROPHILS # 5.9 10^3/uL (1.5-8.5); NEUTROPHILS % 63.6 % (36.0-66.0); PLATELET COUNT, AUTOMATED 301 10^3/uL (150-450); RED BLOOD COUNT 4.78 10^6/uL (4.30-6.10); WHITE BLOOD COUNT 9.2 10^3/uL (4.0-10.0)
[2024-06-29 13:07] LABS: BLOOD UREA NITROGEN 18 MG/DL (9-23); CALCIUM LEVEL 7.7 MG/DL (8.5-10.1); CARBON DIOXIDE LEVEL 30 MMOL/L (20-31); CHLORIDE LEVEL 104 MMOL/L (98-107); CREATININE FOR GFR 0.84 MG/DL (0.70-1.30); GLOMERULAR FILTRATION RATE > 60.0 (>56); GLUCOSE, FASTING 199 MG/DL (60-100); SODIUM LEVEL 141 MMOL/L (136-145)
[2024-06-29] MEDS: CYCLOBENZAPRINE 10MG TABLET PO ONE (15:28)
[2024-06-29 15:37] VITALS: BP 124/74; TEMP 97.5; O2SAT 97
[2024-06-29 16:10] LABS: KETONE, URINE AUTO RFX NEGATIVE (NEGATIVE); LEUKOCYTE ESTERASE UR AUTO RFX NEGATIVE (NEGATIVE); MUCUS, URINE RFX SMALL (NEGATIVE); NITRITE, URINE AUTO RFX NEGATIVE (NEGATIVE); RBC, URINE AUTO RFX 0 /HPF (0-3); SQUAM EPITHELIAL CELL UR AURFX 0 /HPF (0-6); WBC, URINE AUTO RFX 0 /HPF (0-3)
[2024-06-29] MEDS: ALBUTEROL 90 MCG/ACT 8GM HFA INHALER INH SCH (16:54)
[2024-06-29] MEDS: guaiFENesin ER TABLET 600 MG TAB PO SCH (22:14)
[2024-06-30 07:03] VITALS: BP 113/66; TEMP 98.7; O2SAT 96
[2024-06-30] MEDS: QUEtiapine FUMARATE 100 MG TAB PO SCH (09:06)
[2024-06-30] MEDS: CYCLOBENZAPRINE 10MG TABLET PO PRN (09:13)
[2024-06-30 15:16] VITALS: BP 98/60; TEMP 98; O2SAT 94
[2024-07-01 06:41] VITALS: BP 148/82; TEMP 98; O2SAT 96
[2024-07-01] MEDS: QUEtiapine FUMARATE 50MG TAB PO SCH (09:13)
[2024-07-01 15:33] VITALS: BP 135/76; TEMP 97.6; O2SAT 97
[2024-07-01] MEDS: diphenhydrAMINE CREAM 30GM TOP PRN (22:16)
[2024-07-02 06:53] VITALS: BP 142/72; TEMP 97.2; O2SAT 98
[2024-07-02 15:39] VITALS: BP 152/80; TEMP 97.8; O2SAT 96
[2024-07-03 07:04] VITALS: BP 156/88; TEMP 97; O2SAT 97
[2024-07-03 08:22] VITALS: BP 156/84
[2024-07-03 17:38] VITALS: BP 149/89; TEMP 97.1; O2SAT 98
[2024-07-04 07:13] VITALS: BP 151/90; TEMP 97; O2SAT 96
[2024-07-04 08:31] VITALS: BP 162/88
[2024-07-04] MEDS: QUEtiapine FUMARATE 50MG TAB PO SCH (08:33)
[2024-07-04] MEDS: PILL CUTTER 1 EACH XX PRN (08:34)
[2024-07-04] MEDS ORDERED: QUEtiapine FUMARATE 50MG TAB PO SCH (09:00)
[2024-07-04 17:14] VITALS: BP 162/98; TEMP 97.2; O2SAT 97
[2024-07-05 05:57] VITALS: BP 142/93; TEMP 97.1; O2SAT 95
[2024-07-05 08:14] VITALS: BP 131/88
[2024-07-05] MEDS: DOCUSATE SODIUM 100MG CAPSULE PO SCH (11:00)
[2024-07-05 15:23] VITALS: BP 134/77; TEMP 97.8; O2SAT 96
[2024-07-06 06:24] VITALS: BP 125/74; TEMP 96.9; O2SAT 96
[2024-07-06] MEDS: QUEtiapine FUMARATE 100 MG TAB PO SCH (08:26)
[2024-07-06 16:52] VITALS: BP 160/90; TEMP 98.1; O2SAT 96
[2024-07-07 06:47] VITALS: BP 146/98; TEMP 97.3; O2SAT 96
[2024-07-07] MEDS ORDERED: VENTAER INH ×2 (08:17)
[2024-07-07] MEDS ORDERED: CYCL10TA20 PO (08:17)
[2024-07-07] MEDS ORDERED: QUET100T2 PO (08:17)
[2024-07-07] MEDS ORDERED: LAMO100T80 PO (08:17)
[2024-07-07] MEDS ORDERED: HYDR50TA46 PO (08:17)
[2024-07-07] MEDS ORDERED: HALO10TA20 PO (08:17)
[2024-07-07] MEDS ORDERED: QUET200T2 PO (08:17)
[2024-07-07] MEDS ORDERED: DIPHCR TOP (08:17)
[2024-07-07] MEDS ORDERED: LIDO5TD TD (08:17)
[2024-07-07 09:00] VITALS: BP 158/98
[2024-07-07] MEDS ORDERED: ATIV2TAB PO (11:29)
[2024-07-07] MEDS ORDERED: LORA2TAB15 PO ×2 (11:36→12:00)
[2024-07-07] MEDS ORDERED: LORA2TAB14 PO (11:52)
[2024-07-07] MEDS ORDERED: HALD100I2 IM (12:27)
== END 2024-07-07 13:53 | disposition home or self-care (01) | DRG 885 ==
LOC: M ED 15:28 → M ED INP 06-06 14:25 → EEVIPCON 06-06 14:25 → M PSY 06-06 15:36
PROVIDERS: ADMIT Internal Medicine; ATTEND Internal Medicine
DX: F31.2 Bipolar disorder, current episode manic severe with psychotic features (principal); I10 Essential (primary) hypertension; I25.10 Atherosclerotic heart disease of native coronary artery without angina pectoris; E78.5 Hyperlipidemia, unspecified; E11.9 Type 2 diabetes mellitus without complications; E03.9 Hypothyroidism, unspecified; N32.81 Overactive bladder; N40.0 Benign prostatic hyperplasia without lower urinary tract symptoms; F41.9 Anxiety disorder, unspecified; F17.200 Nicotine dependence, unspecified, uncomplicated; Z79.890 Hormone replacement therapy; Z79.899 Other long term (current) drug therapy; Z88.0 Allergy status to penicillin; Z88.8 Allergy status to other drugs, medicaments and biological substances; Z91.040 Latex allergy status; Z91.148 Patient's other noncompliance with medication regimen for other reason; R05.9 Cough, unspecified; M54.9 Dorsalgia, unspecified

== ENCOUNTER 2024-08-14 20:00 | Inpatient (IN) | payer MEDICARE, MEDICAID ==
[~2024-08-14] VITALS: Ht 180.3 cm; Wt 110.7 kg
[~2024-08-14 20:00] MED LIST changes: -AMBI5TAB PO; +ATIV2TAB PO; +CYCL10TA20 PO; +DIPHCR TOP; +HYDR50TA46 PO; +OLAN7.5T38 PO; -OLAN7.5T8 PO; +QUET150T18 PO; +VENTAER INH; +ZOLP-532 PO
[2024-08-14] MEDS: KETOROLAC 30 MG/ML 1ML VIAL IM ONE (21:39)
[2024-08-14] MEDS ORDERED: MED REC CURRENTLY UNOBTAINABLE XX SCH (22:10)
[2024-08-14 22:28] LABS: HEMATOCRIT 42.1 % (42.0-52.0); HEMOGLOBIN 13.1 g/dl (13.5-17.5); MEAN CORPUSCULAR HEMOGLOBIN 22.8 pg (27.0-33.0); MEAN CORPUSCULAR HGB CONC 31.1 g/dl (32.0-36.5); MEAN CORPUSCULAR VOLUME 73.2 fl (80.0-96.0); PLATELET COUNT, AUTOMATED 304 10^3/uL (150-450); RED BLOOD COUNT 5.75 10^6/uL (4.30-6.10); WHITE BLOOD COUNT 11.3 10^3/uL (4.0-10.0)
[2024-08-14 22:46] LABS: ETHYL ALCOHOL (ETHANOL) 0.004 % (0.000-0.010)
[2024-08-14 22:48] LABS: SALICYLATE LEVEL < 3.0 MG/DL (<30)
[2024-08-14] MEDS: LORazepam 2 MG TAB PO ONE (22:55)
[2024-08-14 22:56] LABS: ALBUMIN 4.5 G/DL (3.2-5.2); ALKALINE PHOSPHATASE 164 U/L (40-129); ALT/SGPT 40 U/L (7.0-40); AST/SGOT 35 U/L (<34); BILIRUBIN,DIRECT 0.3 MG/DL (<0.4); BILIRUBIN,TOTAL 0.8 MG/DL (0.3-1.2); BLOOD UREA NITROGEN 21 MG/DL (9-23); CALCIUM LEVEL 9.7 MG/DL (8.5-10.1); CARBON DIOXIDE LEVEL 25 MMOL/L (20-31); CHLORIDE LEVEL 104 MMOL/L (98-107); CREATININE FOR GFR 0.95 MG/DL (0.70-1.30); GLOMERULAR FILTRATION RATE > 90.0 (>56); GLUCOSE, FASTING 224 MG/DL (60-100); SODIUM LEVEL 139 MMOL/L (136-145); THYROID STIMULATING HORMONE 1.683 uIU/ML (0.55-4.78); TOTAL PROTEIN 7.3 G/DL (5.7-8.2)
[2024-08-14 23:10] LABS: AMPHETAMINES LEVEL URINE NEGATIVE (NEGATIVE); BARBITURATES URINE NEGATIVE (NEGATIVE); BENZODIAZEPINES URINE NEGATIVE (NEGATIVE); CANNABINOIDS URINE NEGATIVE (NEGATIVE); COCAINE METABOLITE URINE NEGATIVE (NEGATIVE); METHADONE URINE NEGATIVE (NEGATIVE); OPIATES URINE NEGATIVE (NEGATIVE); PHENCYCLIDINE URINE NEGATIVE (NEGATIVE)
[2024-08-15] MEDS: QUEtiapine FUMARATE 200 MG TAB PO ONE (00:33)
[2024-08-15] MEDS ORDERED: QUET100T2 PO (00:53)
[2024-08-15] MEDS ORDERED: TRAZ-257 PO (00:53)
[2024-08-15] MEDS ORDERED: CYCL-707 PO (00:53)
[2024-08-15] MEDS ORDERED: LAMO150T3 PO (00:53)
[2024-08-15] MEDS ORDERED: ALBU8.5H INH (00:53)
[2024-08-15] MEDS ORDERED: HOME MED LIST COMPLETE! XX SCH (00:55)
[2024-08-15] MEDS: ACETAMINOPHEN 325 MG TAB PO ONE (02:10)
[2024-08-15] MEDS: CYCLOBENZAPRINE 10MG TABLET PO ONE (02:10)
[2024-08-15] MEDS ORDERED: DOCUSATE SODIUM 100MG CAPSULE PO PRN (07:50)
[2024-08-15] MEDS: LEVOTHYROXINE 100MCG TABLET (0.1MG) PO SCH (08:10)
[2024-08-15] MEDS: OMEPRAZOLE 20MG CAP PO SCH (08:32)
[2024-08-15] MEDS: LORazepam 2 MG TAB PO SCH ×2 (08:32→22:47)
[2024-08-15] MEDS: TAMSULOSIN 0.4 MG CAP PO SCH (08:32)
[2024-08-15] MEDS: BENZTROPINE 2 MG TAB PO SCH ×2 (08:32→23:18)
[2024-08-15] MEDS: lamoTRIgine 100MG TAB PO SCH ×2 (08:32→23:19)
[2024-08-15] MEDS: QUEtiapine FUMARATE 100 MG TAB PO SCH (08:32)
[2024-08-15] MEDS: LOSARTAN 50MG TABLET PO SCH ×2 (08:32→23:18)
[2024-08-15] MEDS: ACETAMINOPHEN 500 MG TAB PO PRN (08:33)
[2024-08-15] MEDS ORDERED: LEVOTHYROXINE 100MCG TABLET (0.1MG) PO SCH (09:00)
[2024-08-15] MEDS: NICOTINE 14 MG/24 HR TRANSDERMAL TD SCH (09:00)
[2024-08-15] MEDS ORDERED: OLANZapine 5 MG TAB PO PRN (11:35)
[2024-08-15] MEDS ORDERED: MAALOX 30 ML SUSP *UDC PO PRN (11:35)
[2024-08-15] MEDS ORDERED: MOM 30ML SUSPENSION UDC PO PRN (11:35)
[2024-08-15 12:42] VITALS: BP 132/77; TEMP 97.1; O2SAT 99
[2024-08-15] MEDS: ACETAMINOPHEN 325 MG TAB PO PRN (14:23)
[2024-08-15 16:14] VITALS: BP 164/98; TEMP 97.8; O2SAT 98
[2024-08-15] MEDS: diphenhydrAMINE 25MG CAP PO PRN (17:00)
[2024-08-15] MEDS: LORazepam 1 MG TAB PO PRN (20:29)
[2024-08-15] MEDS: traZODone 50 MG TAB PO PRN (20:29)
[2024-08-15] MEDS ORDERED: traZODone 100 MG TAB PO SCH (21:00)
[2024-08-15] MEDS ORDERED: QUEtiapine FUMARATE 200 MG TAB PO SCH (21:00)
[2024-08-15] MEDS ORDERED: ATORVASTATIN 20 MG TAB PO SCH (21:00)
[2024-08-15] MEDS: traZODone 100 MG TAB PO SCH (22:47)
[2024-08-15] MEDS: QUEtiapine FUMARATE 200 MG TAB PO SCH (23:18)
[2024-08-15] MEDS: DOCUSATE SODIUM 100MG CAPSULE PO PRN (23:18)
[2024-08-15] MEDS: ATORVASTATIN 20 MG TAB PO SCH (23:19)
[2024-08-15] MEDS: LORazepam 1 MG TAB PO ONE (23:19)
[2024-08-16] MEDS: KETOROLAC TROMETHAMINE 10 MG TAB PO ONE (05:58)
[2024-08-16] MEDS: LEVOTHYROXINE 100MCG TABLET (0.1MG) PO SCH (05:59)
[2024-08-16 06:36] VITALS: BP 130/81; TEMP 97.3; O2SAT 98
[2024-08-16] MEDS: lamoTRIgine 100MG TAB PO SCH (08:12)
[2024-08-16] MEDS: UNRESOLVED PATIENT OWN MED ORDER XX SCH (08:13)
[2024-08-16] MEDS: QUEtiapine FUMARATE 100 MG TAB PO SCH (08:17)
[2024-08-16] MEDS: OMEPRAZOLE 20MG CAP PO SCH (08:17)
[2024-08-16] MEDS: TAMSULOSIN 0.4 MG CAP PO SCH (08:18)
[2024-08-16] MEDS: VITAMIN D 1,000 INTERNATIONAL UNITS TABLET PO SCH (08:18)
[2024-08-16] MEDS: DAPAGLIFLOZIN PROPANEDIOL 10MG TABLET (FARXIGA) PO SCH (08:19)
[2024-08-16] MEDS ORDERED: DAPAGLIFLOZIN 10 MG PO SCH (09:00)
[2024-08-16] MEDS ORDERED: TAMSULOSIN 0.4 MG CAP PO SCH (09:00)
[2024-08-16] MEDS ORDERED: EMPAGLIFLOZIN 25 MG PO SCH (09:00)
[2024-08-16] MEDS ORDERED: VIBEGRON 75 MG PO SCH (09:00)
[2024-08-16] MEDS: VIBEGRON 75 MG PO SCH (10:45)
[2024-08-16] MEDS: CARBAMIDE PEROXIDE 6.5% OTIC SOLN 15ML AU SCH (11:16)
[2024-08-16 12:29] LABS: KETONE, URINE AUTO RFX NEGATIVE (NEGATIVE); LEUKOCYTE ESTERASE UR AUTO RFX NEGATIVE (NEGATIVE); NITRITE, URINE AUTO RFX NEGATIVE (NEGATIVE); RBC, URINE AUTO RFX 0 /HPF (0-3); SQUAM EPITHELIAL CELL UR AURFX 0 /HPF (0-6); WBC, URINE AUTO RFX 1 /HPF (0-3)
[2024-08-16] MEDS: SALIVA SUBSTITUTE(MOUTHKOTE) BTL MT PRN (12:52)
[2024-08-16 15:51] VITALS: BP 126/80; TEMP 96.8; O2SAT 98
[2024-08-16] MEDS: CYCLOBENZAPRINE 10MG TABLET PO PRN (20:24)
[2024-08-17] MEDS: ALBUTEROL 90 MCG/ACT 8GM HFA INHALER INH PRN (06:26)
[2024-08-17 06:35] VITALS: BP 140/90; TEMP 97; O2SAT 98
[2024-08-17 15:57] VITALS: BP 148/90; TEMP 97; O2SAT 98
[2024-08-17] MEDS: SIMETHICONE 80MG CHEW TAB PO PRN (17:19)
[2024-08-17] MEDS: QUEtiapine FUMARATE 50MG TAB PO SCH (20:50)
[2024-08-18 06:51] VITALS: BP 154/98; TEMP 97; O2SAT 99
[2024-08-18 15:11] VITALS: BP 139/77; TEMP 97.9; O2SAT 97
[2024-08-19 06:44] VITALS: BP 153/90; TEMP 96.8; O2SAT 99
[2024-08-19 07:56] VITALS: BP 136/87
[2024-08-19 14:54] VITALS: BP 146/88; TEMP 97.6; O2SAT 99
[2024-08-20 07:18] VITALS: BP 136/80; TEMP 97; O2SAT 96
[2024-08-20 16:33] VITALS: BP 148/90; TEMP 97.8; O2SAT 97
[2024-08-21 06:46] VITALS: BP 132/91; TEMP 97.2; O2SAT 97
[2024-08-21 08:01] VITALS: BP 140/83
[2024-08-21 08:03] VITALS: BP 140/83
[2024-08-21] MEDS: HALOPERIDOL DECANOATE 100 MG/ML 1ML VIAL IM SCH (11:38)
[2024-08-21] MEDS ORDERED: HALO10AM IM (13:10)
[2024-08-21] MEDS ORDERED: FARX1TAB3 PO (13:10)
[2024-08-21] MEDS ORDERED: MOUKOT60 MT (13:11)
[2024-08-21] MEDS ORDERED: QUET100T2 PO (13:11)
[2024-08-21] MEDS ORDERED: TAMS-18 PO (13:11)
[2024-08-21] MEDS ORDERED: SIME80CH6 PO (13:11)
[2024-08-21] MEDS ORDERED: QUET50TA4 PO (13:11)
== END 2024-08-21 15:45 | disposition home or self-care (01) | DRG 885 ==
LOC: M ED 20:00 → M ED INP 08-15 11:31 → M PSY 08-15 12:34
PROVIDERS: ADMIT Internal Medicine; ATTEND Internal Medicine
DX: F25.0 Schizoaffective disorder, bipolar type (principal); I10 Essential (primary) hypertension; I25.10 Atherosclerotic heart disease of native coronary artery without angina pectoris; J45.909 Unspecified asthma, uncomplicated; E55.9 Vitamin D deficiency, unspecified; E03.9 Hypothyroidism, unspecified; E11.9 Type 2 diabetes mellitus without complications; F41.9 Anxiety disorder, unspecified; N40.0 Benign prostatic hyperplasia without lower urinary tract symptoms; Z79.899 Other long term (current) drug therapy; Z79.890 Hormone replacement therapy; Z88.0 Allergy status to penicillin; Z91.040 Latex allergy status; Z88.8 Allergy status to other drugs, medicaments and biological substances

== ENCOUNTER → 2025-02-12 | Outpatient (CLI) | payer MEDICARE, MEDICAID ==
[~2025-02-12] MED LIST changes: -ABIL400I IM; +ALBU8.5H INH; +ARIP400S IM; +DEPA250T PO; -DEPA250T2 PO; -DEPA250T32 PO; +DIVA-65 PO; +FARX1TAB3 PO; +HALO10AM IM; +HYDR12.510 PO; -HYDR12CA PO; -IBUP-1022 PO; +IBUP600T42 PO; +LAMO-18; +LAMO150T3 PO; -LAMO25TA4; +OLAN20TA74 PO; +PROZ10CA11 PO; -PROZ10CA7 PO; +SIME80CH6 PO; +TAMS-18 PO; -ZYPR20TA PO
[2025-02-12 11:14] LABS: ESTIMATED AVERAGE GLUCOSE 160.0 MG/DL (60-110)
== END ==
LOC: M LAB 09:37
PROVIDERS: ATTEND Family Medicine
DX: E11.69 Type 2 diabetes mellitus with other specified complication (principal); E66.9 Obesity, unspecified

== ENCOUNTER → 2025-02-15 | Outpatient (CLI) | payer MEDICARE, MEDICAID | LOC: M RAD 15:43 | PROVIDERS: ATTEND Registered Nurse | DX: M25.511 Pain in right shoulder (principal) ==

== ENCOUNTER 2025-03-08 20:01 | Emergency (ER) | payer MEDICARE, MEDICAID ==
[~2025-03-08] VITALS: Ht 177.8 cm; Wt 114.2 kg
[2025-03-08] MEDS: KETOROLAC 60 MG/2 ML VIAL IM ONE (20:34)
[2025-03-08] MEDS: BENZOCAINE 10% 9 GM TUBE TOP ONE (20:47)
[2025-03-08] MEDS ORDERED: ANBE20GE TOP (21:08)
[2025-03-08] MEDS ORDERED: KETO-204 PO (21:08)
[2025-03-08 21:13] VITALS: BP 175/105; TEMP 97; O2SAT 96
== END 2025-03-08 21:16 | disposition home or self-care (01) ==
LOC: M ED 20:35
DX: K08.89 Other specified disorders of teeth and supporting structures (principal); I10 Essential (primary) hypertension; E11.9 Type 2 diabetes mellitus without complications; I25.2 Old myocardial infarction; E78.5 Hyperlipidemia, unspecified; J45.909 Unspecified asthma, uncomplicated; G47.33 Obstructive sleep apnea (adult) (pediatric); Z87.442 Personal history of urinary calculi; Z88.0 Allergy status to penicillin; Z88.8 Allergy status to other drugs, medicaments and biological substances; Z91.040 Latex allergy status; Z79.52 Long term (current) use of systemic steroids; Z79.02 Long term (current) use of antithrombotics/antiplatelets; Z79.899 Other long term (current) drug therapy
CPT/HCPCS: 96372; 99283; J1885